=== PATIENT | female | born 1945 | race Caucasian/White ===

== ENCOUNTER 2023-02-20 12:45 | Outpatient (OUT) | payer MEDICARE, OTHER, SELFPAY ==
--- NOTE | 2023-02-20 13:34 | US_ITS ---
The [address] [address] Patient Name: SMITHA CHAN MRN: [id number] date: 1945 Sex: F Assigned Patient Location: US Current Patient Location: US Accession/Order Number: [id number] Exam Date: 02/20/2023 13:35 Report Date: 02/20/2023 16:03 At the request of: NITHYA BROWN Procedure: US venous doppler LE RT EXAM: US venous doppler LE RT HISTORY: Rule out DVT COMPARISON: None. TECHNIQUE: Sonographic evaluation the right lower extremity performed using Doppler interrogation FINDINGS: No findings of right lower extremity DVT. Normal augmentation and waveforms US/US venous doppler LE RT IMPRESSION: No findings of right lower extremity DVT Electronically authenticated by: EVETTE VINCENT Date: 02/20/2023 16:03
== END 2023-02-20 12:46 | disposition home or self-care (01) ==
LOC: US 12:52
PROVIDERS: PCP Family Medicine; Visit Provider Family Medicine
DX: R60.0 Localized edema (principal)
CPT/HCPCS: 93971

== ENCOUNTER 2023-03-31 21:23 | Emergency (ER) | payer MEDICARE, OTHER, SELFPAY ==
[2023-03-31 21:27] VITALS: BP 152/112; PULSE 86; RESP 20; TEMP 36.8; O2SAT 97; BMI 26.6
--- NOTE | 2023-03-31 21:35 | CT_ITS ---
The [address] [address] Patient Name: SMITHA CHAN MRN: [id number] date: 1945 Sex: F Assigned Patient Location: ER Current Patient Location: ED.MAIN Accession/Order Number: [id number] Exam Date: 03/31/2023 21:47 Report Date: 03/31/2023 22:09 At the request of: JACK BURTON Procedure: CT stroke head/brain wo con INDICATION: 78 years old; Female. Right-sided weakness. TECHNIQUE: CT Head (ax/cor/sag reformats). Ionizing radiation dose reduced via iterative reconstruction/FBP blend and body size kV/mA adjustment. Comparison: None FINDINGS: POSTOPERATIVE CHANGES: None. BRAIN PARENCHYMA: There is a focal lobulated hemorrhage present in the left thalamus extending into the posterior limb of left internal capsule and superiorly into the left arredondo radiata. This measures 16.92 x 13.19 x 16.13 mm in diameter as measured on images 15/series 3 and 31/series 7. Ventricular extension is appreciated with hemorrhage in the body of the left lateral ventricle. Localized mass effect is seen. No midline shift or herniation is present. No additional hemorrhage is seen. Patchy low-density is seen in the white matter without mass effect consistent with small vessel ischemic change. VENTRICLES/EXTRA-AXIAL SPACES: Enlarged consistent with atrophy. SINUSES/MASTOIDS: Mucoperiosteal thickening and secretions in the visualized portion of the right maxillary sinus. The maxillary sinuses are not completely visible in this routine CT the head. Hypoplastic frontal sinuses. Mastoids and middle ears are clear. MSK: No displaced or depressed calvarial fracture. OTHER: No hyperdense intraluminal thrombus. Vascular calcifications. CT/CT stroke head/brain wo con IMPRESSION: 1. Left-sided hemorrhage as described above with intraventricular extension into the body of the left lateral ventricle. Localized mass effect is seen. No midline shift or herniation. 2. Small vessel ischemic changes. 3. Atrophy. 4. Vascular calcification. 5. Sinus thickening. A telephone call regarding the findings in examination was made to and acknowledged by Dr. Burton in the emergency department at 10:08 PM on 03/31/2023. Electronically authenticated by: CARO COYNE Date: 03/31/2023 22:09
--- NOTE | 2023-03-31 21:35 | ECG_ITS ---
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
--- NOTE | 2023-03-31 21:35 | XR_ITS ---
The [address] [address] Patient Name: SMITHA CHAN MRN: [id number] date: 1945 Sex: F Assigned Patient Location: ER Current Patient Location: ED.MAIN Accession/Order Number: [id number] Exam Date: 03/31/2023 21:47 Report Date: 03/31/2023 22:42 At the request of: JACK FAJARDO Procedure: XR chest 1V EXAM: XR chest 1V HISTORY: CVA COMPARISON: CT chest 08/03/2021 TECHNIQUE: Single frontal view chest x-ray FINDINGS: Aneurysmal dilation of the thoracic aorta. Descending thoracic aortic stent is seen. Mild rightward tracheal deviation secondary to thoracic aorta, similar to prior exam. Enlarged cardiac silhouette. No lung consolidation, large pleural effusion, pneumothorax, or acute bony abnormality. XR/XR chest 1V IMPRESSION: Aneurysmal dilation of the thoracic aorta. This finding is seen on CT 08/03/2021. Cardiomegaly. No radiographic lung consolidation or large pleural effusion. Electronically authenticated by: DANO ESTRADA Date: 03/31/2023 22:42
--- NOTE | 2023-03-31 21:37 | ED_ITS ---
HPI - Weakness General Chief complaint: Dizziness Stated complaint: Lower Extremity Weakness Time Seen by Provider: 03/31/23 21:35 Source: patient Source comment: EMS Mode of arrival: ambulance Limitations: no limitations History of Present Illness HPI Narrative: patient states she was walking in her home and her right leg, which is her better leg, did not want to cooperate to hold her up and she lowered herself to the floor. No injury. Started around 8PM. She also felt like her right arm was not working normally. Her helped her up but she could not move the right leg. she is now brought her by [facility]. She can move the right leg now but doesn't feel it is back to normal. no headache or chest pain. No visual complaint or dizziness Related Data Home Medications Medication Instructions Recorded Confirmed Stool softner BID 03/31/23 amlodipine 5 mg tablet 5 mg PO DAILY 03/31/23 03/31/23 aspirin 81 mg capsule 81 mg PO DAILY 03/31/23 03/31/23 cetirizine 10 mg tablet (Zyrtec) 10 mg PO DAILY PRN allergy symptoms 03/31/23 03/31/23 hydrochlorothiazide 25 mg tablet 25 mg PO DAILY 03/31/23 03/31/23 niacin 500 mg tablet,extended 500 mg PO DAILY 03/31/23 03/31/23 release (Endur-Acin) pantoprazole 40 mg tablet,delayed 40 mg PO DAILY 03/31/23 03/31/23 release potassium chloride 10 mEq 20 meq PO DAILY 03/31/23 03/31/23 tablet,extended release Allergies Allergy/AdvReac Type Severity Reaction Status Date / Time acetaminophen [From Percocet] Allergy Unknown Verified 03/31/23 22:00 oxycodone [From Percocet] Allergy Unknown Verified 03/31/23 22:00 bacitracin Allergy Blister Verified 03/31/23 22:00 [From Neosporin ([id number])] neomycin Allergy Blister Verified 03/31/23 22:00 [From Neosporin ([id number])] polymyxin B Allergy Blister Verified 03/31/23 22:00 [From Neosporin ([id number])] ciprofloxacin [From Cipro] AdvReac Headache Verified 03/31/23 22:00 Review of Systems ROS Status of ROS 10 or more systems reviewed and unremark able except as noted in history and below [facility] Social History Smoking status: Current every day smoker Exam Constitutional Vital Signs, click to edit/add: Last Vital Signs Temp 98.2 F 03/31/23 21:27 Pulse 96 H 04/01/23 02:05 Resp 20 04/01/23 02:05 BP 140/100 H 04/01/23 02:05 Pulse Ox 95 04/01/23 02:05 O2 Del Method Room Air 04/01/23 02:05 Common normals: no apparent distress, average body habitus, oriented x3, no limitations, healthy appearing, alert and well nourished Eye Common normals: PERRL, EOMs intact bilaterally and conjunctivae normal Respiratory Common normals: normal respiratory effort, no retractions, no use of accessory muscles and clear to auscultation bilaterally Cardio Common normals: regular rate, regular rhythm, S1 normal heart sound and S2 normal heart sound GI Common normals: Normal to inspection, nondistended, normoactive bowel sounds present, soft to palpation and non-tender Extremity Common normals: normal to inspection and full ROM Neuro Common normals: oriented x3 and CN's II-XII intact bilaterally Other: able to raise right leg but it starts to drift back down to the stretcher Psych Appearance: grossly normal Course Vital Signs Vital signs: Vital Signs Temperature 98.2 F 03/31/23 21:27 Pulse Rate 86 03/31/23 21:27 Respiratory Rate 20 03/31/23 21:27 Blood Pressure 152/112 H 03/31/23 21:27 Pulse Oximetry 97 03/31/23 21:27 Oxygen Delivery Method Room Air 03/31/23 21:27 Temperature 98.2 F 03/31/23 21:27 Pulse Rate 96 H 04/01/23 02:05 Respiratory Rate 20 04/01/23 02:05 Blood Pressure 140/100 H 04/01/23 02:05 Pulse Oximetry 95 04/01/23 02:05 Oxygen Delivery Method Room Air 04/01/23 02:05 MDM - Weakness MDM Narrative Medical decision making narrative: patient presents with acute right sided weakness that started about 1.45 hours ago. Has improved and now has NIH score of 1 due to drift of RLE. CT brain ordered. CT with acute cerebral bleed. BP 152/112. Stroke neurologist giselle . Discussed with Dr De Anda at [facility] and patient is accepted to the ICU. He also recommends decreasing her systolic BP to around 140s. Patient and her informed of the above. She is re examined and her NIH score remains at 1 Lab Data Labs: Lab Results 03/31/23 Range/Units 22:09 WBC 7.6 (4.0-11.0) 10^3/uL RBC 4.10 L (4.20-5.40) 10^6/uL Hgb 11.8 L (12.0-16.0) g/dL Hct 35.9 L (36.0-48.0) % MCV 87.6 (81.0-99.0) fL MCH 28.8 (26.7-34.0) pg MCHC 32.9 (29.9-35.2) g/dL RDW 15.1 H (11.0-15.0) % Plt Count 84 L (150-450) 10^3/uL MPV 10.6 (9.5-13.5) fL Neut % (Auto) 80.2 H (43.0-75.0) % Lymph % (Auto) 11.2 L (20.5-60.0) % Chester % (Auto) 6.5 (1.7-12.0) % Eos % (Auto) 1.4 (0.9-7.0) % Baso % (Auto) 0.3 (0.2-2.0) % Neut # (Auto) 6.1 (1.4-6.5) 10^3/uL Lymph # (Auto) 0.9 L (1.2-3.8) 10^3/uL Chester # (Auto) 0.5 (0.3-0.8) 10^3/uL Eos # (Auto) 0.1 (0.0-0.7) 10^3/uL Baso # (Auto) 0.0 (0.0-0.1) 10^3/uL Abs Immat Gran (auto) 0.03 (0.00-0.03) 10^3/uL Imm/Tot Granulo (auto) 0.4 (0.0-0.5) % Sodium 138 (136-145) mmol/L Potassium 3.7 (3.5-5.1) mmol/L Chloride 101 (98-107) mmol/L Carbon Dioxide 29.8 (21.0-32.0) mmol/L Anion Gap 10.9 BUN 17.0 (7.0-18.0) mg/dL Creatinine 0.86 (0.55-1.02) mg/dL Est GFR ( Amer) >60 (>=60) Est GFR (Non-Af Amer) >60 (>=60) BUN/Creatinine Ratio 19.8 Glucose 96 (74-106) mg/dL Calcium 9.6 (8.5-10.1) mg/dL Troponin I High Sens 8.1 (4.0-51.3) pg/mL Critical Care Time Critical Care Time Total Critical Care Time: 30 Discharge Plan Discharge Chief Complaint: Dizziness Clinical Impression: Acute cerebral hemorrhage, Thalamic hemorrhage with stroke Patient Disposition: Xfer Acute [facility] Discharge Location: [facility] Discharge Date/Time: 04/01/23 02:50
--- OUTSIDE RECORDS SUMMARY | 2023-03-31 21:49 | XMS_ITS | CCD ---
Author Name Unknown Address [address] [place] [address] Organization [facility] Care Team Providers Care Belly Roller Name Role Phone GUSTAVO BADILLO Attending Unavailable GUSTAVO BADILLO Admitting Unavailable FE BROWN Referring Unavailable FE BROWN Primary Care Unavailable MD Fe Brown Primary Care Provider [phone] MD Beth Moore Attending Provider [phone] STEPHANIE, DR FE Merida Primary Care Unavailable FEROZ, GASTON Admitting Unavailable FEROZ, GASTON Attending Unavailable BLAINE, DR ANTOLIN Musa Consulting Unavailable MARIFER, CARO Consulting Unavailable GASTON REDMAN Consulting Unavailable BETH MOORE Admitting Unavailable BETH MOORE Attending Unavailable STEPHANIE, DR FE Merida Primary Care Unavailable BROWN, DR FE Merida Admitting Unavailable BROWN, DR FE Merida Attending Unavailable BROWN, DR FE Merida Primary Care Unavailable ZIEBMARK, DR ANTOLIN Musa Consulting Unavailable BROWN, DR FE Merida Consulting Unavailable MISC, DR MCKINLEY Admitting Unavailable MISC, DR MCKINLEY Attending Unavailable STEPHANIE, DR FE Merida Primary Care Unavailable MISC, DR MCKINLEY Consulting Unavailable ZIEBMARK, DR ANTOLIN Musa Consulting Unavailable BROWN, DR FE Merida Admitting Unavailable BROWN, DR FE Merida Attending Unavailable BROWN, DR FE Merida Primary Care Unavailable WEST, DR ARIANNE Sanz Consulting Unavailable STEPHANIE, DR FE Merida Consulting Unavailable STEPHANIE, DR FE Merida Admitting Unavailable BROWN, DR FE Merida Attending Unavailable BROWN, DR FE Merida Primary Care Unavailable WEST, DR ARIANNE Sanz Consulting Unavailable STEPHANIE, DR FE Merida Consulting Unavailable BETH MOORE Admitting Unavailable BETH MOORE Attending Unavailable STEPHANIE, DR FE Merida Primary Care Unavailable BETH MOORE Consulting Unavailable Fe Brown Unavailable FE BROWN Primary Care Physician [phone] Nayely Lizama Unavailable Unavailable Calvey, Beth Unavailable MD Fe Brown Primary Care Provider [phone] MD Beth Moore Attending Provider [phone] MD Gustavo Badillo Admitting Unavailable MD Gustavo Badillo Attending Unavailable NONE, XXXX Referring Unavailable MD Gustavo Badillo Attending Unavailable NONE, XXXX Referring Unavailable MD Gustavo Badillo Admitting Unavailable MD Gustavo Badillo Admitting Unavailable MD Gustavo Badillo Attending Unavailable MD Gustavo Badillo Referring Unavailable Calvey, Beth R Admitting Unavailable Calvashley, Beth R Attending Unavailable Fe Brown Primary Care Unavailable Calvey, Beth R Admitting Unavailable Calvashley, Beth R Attending Unavailable Fe Brown Primary Care Unavailable Teresa, Beth R Admitting Unavailable Beth Moore Attending Unavailable Fe Brown Primary Care Unavailable Beth Moore Attending Unavailable Beth Moore R Admitting Unavailable Fe Brown Primary Care Unavailable Beth Moore Attending Unavailable Beth Moore R Admitting Unavailable Fe Brown Primary Care Unavailable Allergies Allergy Classification Reported Allergen(s) Allergy Type Date of Onset Reaction(s) Facility (2 sources) Acetaminophen / oxyCODONE Drug Allergy 08-19-19 15 [facility] (2 sources) Alendronate Drug Allergy 08-19-19 15 [facility] (2 sources) Bacitracin / Neomycin / Polymyxin B Drug Allergy 04-10-19 15 [facility] (4 sources) Bee/Wasp/Ant venom; Translations: [bee stings] Propensity to adverse reactions (disorder) 07-02-19 19 Edema [facility] (2 sources) Ciprofloxacin Drug Allergy 08-19-19 15 [facility] (2 sources) nickel; Translations: [nickel] Drug Allergy 08-19-19 15 [facility] (1 source) oxyCODONE Drug Allergy 07-04-19 22 [facility] (12 sources) Bacitracin; Translations: [Bacitracin] Drug Allergy 11-29-19 13 Rash, Unknown [facility] (20 sources) Ciprofloxacin; Translations: [ciprofloxacin] Drug Allergy 08-18-19 15 Headache, Unknown [facility] (8 sources) Neomycin; Translations: [Neomycin] Drug Allergy 04-30-19 Rash, Unknown [facility] (5 sources) polymyxin B; Translations: [polymyxin B] Allergy to substance 04-30-19 Rash [facility] (5 sources) venom-wasp; Translations: [venom-wasp] Allergy to substance 04-30-19 Anaphylaxis [facility] (1 source) bee venom Drug allergy (disorder) 08-19-19 15 [facility] (6 sources) Acetaminophen / oxyCODONE; Translations: [acetaminophen-ox ycodone] Drug Allergy 08-18-19 15 Unknown [facility] (6 sources) Alendronate; Translations: [alendronate] Drug Allergy 11-29-19 13 Unknown, Comment:Freete xt Needs Updated. [facility] (3 sources) bacitracin / neomycin / polymyxin b; Translations: [bacitracin/neomy joaquin/polymyxin B topical] Drug Allergy Blisters [facility] (6 sources) oxyCODONE; Translations: [oxycodone] Drug Allergy 11-01-19 19 Unknown, Comment:Freete xt Needs Updated. [facility] (3 sources) Substance with penicillin structure and antibacterial mechanism of action (substance) Drug allergy 11-29-19 13 Unknown [facility] Other (3 sources) Bee Sting Drug allergy 11-29-19 13 Unknown [facility] Other (3 sources) Neosporin + Pain Relief Max St *DERMATOLOGICALS* Propensity to adverse reactions 11-29-19 13 Unknown [facility] Other (3 sources) Allergies Reconciled Propensity to adverse reactions Unknown [facility] Other (3 sources) patient allergy list reviewed by nurse or physicia Propensity to adverse reactions 11-29-19 Comment:Done [facility] Other Medications Current Medications Medication Drug Class(es) Dates Sig (Normalized) Sig (Original) acetaminophen 325 mg / HYDROcodone bitartrate 5 mg oral tablet (8 sources) Opioid Agonist Start: 04-30-2022 take 1 tablet by mouth every four to six hours Hydrocodone-Aceta minophen Active 1 - 2 TAB PO EVERY 4-6 HOURS 50 7 April 30, 2022 Start: 04-30-2022 take 1 tablet by melly th every six hours Hydrocodone-Acetaminophen Active 1 TAB P O Q6H April 30, 2022 1:00am amLODIPine 5 mg oral tablet (20 sources) Dihydropyridine Calcium Channel Yoselin Start: 04-30-2022 take 5 mg by mouth once daily Amlodipine Active 5 MG PO Daily April 30, 2022 1:00am amLODIPine Besyl ate Active amoxicillin 500 mg oral capsule (1 source) Penicillin-class Antibacterial take 2 capsules by mouth every twelve hours Amoxicillin 500 MG 2 capsules Orally Twice a day for 1 days Pt states she is not allergic to PCN. Active aspirin 81 mg delayed release oral tablet (12 sources) Platelet Aggregation Inhibitor, Nonsteroidal Anti-inflammatory Drug Start: 06-04-19 take 1 tablet by mouth once daily aspirin 81 mg Oral EC Tab 81 mg = 1 tab(s), Oral, Daily, # 30 tab(s), Refills(s) 0 Start Date: 06/04/22 Status: Ordered Start: 04-30-2022 take 81 mg by mouth once daily Aspirin Active 81 MG PO Daily April 30, 2022 1:00am take 1 tablet by mouth once bertha y Aspir-Low 81 MG 1 tablet Orally Once a day Active Zyrtec (16 sources) Histamine-1 Receptor Antagonist Start: 06-04-2022 Zyrtec Refills(s) 0 Start Date: 06/04/22 Status: Ordered take 1 tablet by melly th once daily as needed ZyrTEC Allergy 10 MG 1 tablet as needed Orally Once a day for 30 day(s) Active Colace (2 sources) Start: 06-04-2022 Colace Refills(s) 0 Start Date: 06/04/22 Status: Ordered doxycycline hyclate 100 mg oral tablet (4 sources) Tetracycline-clas s Drug Start: 04-30-2022 take 100 mg by mouth twice daily Doxycycline Hyclate Active 100 MG PO Twice daily 10 5 April 30, 2022 1:00am [id number] 0.3 ml EPINEPHrine 1 mg/ml auto-injector (6 sources) alpha-Adrenergic Agonist, beta-Adrenergic Agonist, Catecholamine Start: 09-07-2022 EpiPen 2-Jarrod 0.3 MG/0.3ML as directed Injection prn for 1 days Sep, Active hydroCHLOROthiazide 25 mg oral tablet (20 sources) Thiazide Diuretic Start: 02-20-2016 take 25 mg by mouth once daily Hydrochlorothiazide Active 25 MG PO Daily April 30, 2022 1:00am hydroCHLOROthiaz kenji Active metoprolol tartrate 25 mg oral tablet (20 sources) beta-Adrenergic Yoselin Start: 04-30-2022 take 25 mg by mouth twice daily Metoprolol Tartrate Active 25 MG PO Twice daily April 30, 2022 1:00am Start: 09-15-2019 Lopressor Refi lls(s) 0 Start Date: 09/15/19 Status: Ordered Metoprolol Succi sebastian Active Niacin (2 sources) Nicotinic Acid Start: 06-04-2022 niacin 500 mg ER Tab Refills(s) 0 Start Date: 06/04/22 Status: Ordered pantoprazole 40 mg delayed release oral tablet (20 sources) Proton Pump Inhibitor Start: 04-30-2022 take 40 mg by mouth once daily Pantoprazole Active 40 MG PO Daily April 30, 2022 1:00am Pantoprazole Sod ium Active potassium chloride 10 meq extended release oral tablet (12 sources) Start: 04-30-2022 take 20 mEq by mouth twice daily Potassium Chloride Active 20 MEQ PO Twice daily April 30, 2022 1:00am Start: 09-15-2019 take 2 capsules by m outh once daily potassium chloride 10 mEq Cap-ER 20 mEq = 2 cap(s), Oral, Daily, Refills(s) 0 Start Date: 09/15/19 Status: Ordered Potassium Chlori de Active raNITIdine 75 mg oral tablet (2 sources) Histamine-2 Receptor Antagonist Start: 02-20-2016 take 75 mg by mouth once daily as needed ranitidine 75 mg, Oral, Daily, PRN Indigestion, takes when taking AQleve, Refills(s) 0 Start Date: 02/20/16 Status: Ordered Stool Softener (14 sources) Stool Softener Active Completed/Discontinued Medications Medication Drug Class(es) Dates Sig (Normalized) Sig (Original) methylPREDNISolone 4 mg oral tablet (9 sources) Corticosteroid Start: 06-20-2022 Medrol 4 MG as directed Orally Jun, Not-Taking predniSONE 5 mg oral tablet (8 sources) Start: 07-20-2022 predniSONE 5 MG TAKE 4 PILLS BY MOUTH X 2 DAYS, TAKE 3 PILLS BY MOUTH X 2 DAYS, TAKE 2 PILLS BY MOUTH X 2 DAYS, TAKE 1 PILL BY MOUTH X 1 DAY Orally Daily for 7 days Jul, Not-Taking triamcinolone acetonide 40 mg/ml injectable suspension (20 sources) Corticosteroid Start: 08-31-2022 Kenalog-40 August, 20 mg Start: 12-22-2017 KENALOG - 10 m g Dec, 40 mg Problems Active Problems Problem Classification Problem Date Documented Da te Episodic/Chronic Aortic; peripheral; and visceral artery aneurysms (12 sources) Thoracic aortic aneurysm, without rupture; Translations: [Aneurysm of artery of lower extremity] Onset: 9 Chronic Biliary tract disease (3 sources) Gallbladder calculus with acute cholecystitis and no obstruction; Translations: [Calculus of gallbladder with acute cholecystitis without obstruction] Episodic Chronic obstructive pulmonary disease and bronchiectasis (6 sources) Acute exacerbation of chronic obstructive airways disease; Translations: [Chronic obstructive pulmonary disease with (acute) exacerbation] Onset: 8 Chronic Disorders of lipid metabolism (6 sources) Mixed hyperlipidemia; Translations: [Mixed hyperlipidemia] Onset: 0 Chronic E Codes: Fall (1 source) Unspecified fall, initial encounter; Translations: [UNSPECIFIED FALL INITIAL ENCOUNTER] Onset: 3 Episodic Esophageal disorders (3 sources) Gastroesophageal reflux disease without esophagitis; Translations: [Gastro-esophageal reflux disease without esophagitis] Chronic Essential hypertension (7 sources) Essential hypertension; Translations: [Essential (primary) hypertension] Chronic Fracture of upper limb (18 sources) Fracture at wrist and/or hand level; Translations: [Fracture of unspecified carpal bone, right wrist, initial encounter for closed fracture] Onset: 3 04-30-2022 Episodic Gastrointestinal hemorrhage (1 source) Hemorrhage of anus and rectum Episodic Headache; including migraine (3 sources) Chronic migraine without aura, non-refractory; Translations: [Migraine without aura, not intractable, without status migrainosus] Chronic Inflammatory diseases of female pelvic organs (3 sources) Acute vaginitis; Translations: [Acute vaginitis] Episodic Menopausal disorders (3 sources) Menopause present; Translations: [Menopausal and female climacteric states] Chronic Osteoarthritis (3 sources) Osteoarthritis; Translations: [Unspecified osteoarthritis, unspecified site] Chronic Other aftercare (1 source) [facility] (current) use of aspirin; Translations: [[facility] CURRENT USE OF ASPIRIN] Onset: 3 Episodic Other aftercare (1 source) Other jail (current) drug therapy; Translations: [OTH SHAKE SPLITTER CURRENT DRUG THERAPY] Onset: 3 Episodic Other bone disease and musculoskeletal deformities (3 sources) Bone density finding; Translations: [Other specified disorders of bone density and structure, unspecified site] Episodic Other circulatory disease (3 sources) Elevated blood-pressure reading without diagnosis of hypertension; Translations: [Elevated blood-pressure reading, without diagnosis of hypertension] Episodic Other nervous system disorders (7 sources) Carpal tunnel syndrome of right wrist; Translations: [Carpal tunnel syndrome, right upper limb] Chronic Other nervous system disorders (3 sources) Carpal tunnel syndrome, right upper limb Chronic Other nervous system disorders (4 sources) Pain in limb; Translations: [Other acute postprocedural pain] 04-30-2022 Episodic Other non-epithelial cancer of skin (14 sources) Basal cell carcinoma of skin; Translations: [Basal cell carcinoma of skin] Episodic Other non-traumatic joint disorders (3 sources) Pain in right wrist; Translations: [PAIN IN RIGHT WRIST] Onset: 3 Episodic Other screening for suspected conditions (not mental disorders or infectious disease) (4 sources) Encounter for screening mammogram for malignant neoplasm of breast; Translations: [ENC SCR MAMMO MALIG NEOPLASM BREAST] Onset: 3 Episodic Other skin disorders (7 sources) Localized swelling, mass and lump, left lower limb; Translations: [LOC SWELL MASS LUMP LT LOWER LIMB] Onset: 2 Episodic Other skin disorders (3 sources) Changes in skin texture; Translations: [Changes in skin texture] Episodic Other upper respiratory disease (3 sources) Allergic rhinitis; Translations: [Allergic rhinitis, unspecified] Onset: 6 Chronic Other upper respiratory infections (3 sources) Chronic sinusitis; Translations: [Chronic sinusitis, unspecified] Chronic Poisoning by nonmedicinal substances (4 sources) Toxic effect of venom of wasps, accidental (unintentional), initial encounter; Translations: [Toxic effect of venom] Episodic Residual codes; unclassified (8 sources) Other specified postprocedural states; Translations: [OTH SPECIFIED POSTPROCEDURAL STATES] Onset: 3 Episodic Spondylosis; intervertebral disc disorders; other back problems (1 source) Spondylosis without myelopathy or radiculopathy, lumbar region; Translations: [SPONDYLS W/O MYELO-/RADICULOP LUMB] Onset: 3 Chronic Substance-related disorders (3 sources) Nicotine dependence; Translations: [Nicotine dependence, cigarettes, with other nicotine-induced disorders] Onset: 7 Chronic Unclassified (3 sources) LOW BACK PAIN, UNSPECIFIED; Translations: [LOW BACK PAIN, UNSPECIFIED] Onset: 3 Unclassified (1 source) Other extraarticular fracture of lower end of right radius, subsequent encounter for closed fracture with routine healing; Translations: [Other extraarticular fracture of lower end of right radius, subsequent encounter for closed fracture with routine healing] Onset: 3 Unclassified (1 source) Age-related osteoporosis with current pathological fracture, right forearm, initial encounter for fracture; Translations: [Age-related osteoporosis with current pathological fracture, right forearm, initial encounter for fracture] Onset: 3 Unclassified (1 source) Abdominal aortic aneurysm, without rupture, unspecified; Translations: [Abdominal aortic aneurysm, without rupture, unspecified] Past or Other Problems Problem Classification Problem Date Documented Date Episodic/Chronic Bacterial infection; unspecified site (3 sources) Bacterial infectious disease; Translations: [Bacterial infection, unspecified, in conditions classified elsewhere and of unspecified site] Onset: 05-30-2016 Episodic Immunizations and screening for infectious disease (3 sources) Vaccination given; Translations: [Encounter for immunization] Onset: 02-09-2016 Episodic Neoplasms of unspecified nature or uncertain behavior (3 sources) Neoplasm of uncertain behavior of soft tissues; Translations: [Neoplasms of unspecified nature of bone, soft tissue, and skin] Onset: 11-28-2012 Episodic Other connective tissue disease (1 source) Pain in unspecified limb; Translations: [Pain in unspecified limb] Onset: 04-30-2022 Episodic Other nervous system disorders (1 source) Other acute postprocedural pain; Translations: [Other acute postprocedural pain] Onset: 04-30-2022 Episodic Other nutritional; endocrine; and metabolic disorders (3 sources) Overweight; Translations: [Overweight] Onset: 11-05-2017 Episodic Other nutritional; endocrine; and metabolic disorders (3 sources) Body mass index 25-29 - overweight; Translations: [Body mass index 28.0-28.9, adult] Onset: 03-05-2017 Episodic Other skin disorders (3 sources) Inflamed seborrheic keratosis; Translations: [Inflamed seborrheic keratosis] Onset: 05-17-2016 Episodic Other skin disorders (3 sources) Actinic keratosis; Translations: [Actinic keratosis] Onset: 02-09-2016 Episodic Other upper respiratory infections (9 sources) Acute maxillary sinusitis; Translations: [Acute recurrent maxillary sinusitis] Onset: 08-02-2014 Episodic Residual codes; unclassified (3 sources) Tobacco user; Translations: [Tobacco use] Onset: 05-30-2016 Episodic Screening and history of mental health and substance abuse codes (3 sources) Nicotine dependence; Translations: [Personal history of nicotine dependence] Onset: 10-31-2018 Episodic Thyroid disorders (3 sources) Disorder of thyroid gland; Translations: [Unspecified disorder of thyroid] Onset: 10-31-2018 Episodic Unclassified (1 source) LOW BACK PAIN, UNSPECIFIED; Translations: [LOW BACK PAIN, UNSPECIFIED] Onset: 04-16-2022 Unclassified (1 source) Lumbar pain M54.50 Results Test Name Value Interpretation Reference Range Facility Outside Progress Noteon Outside Progress Note [id number] 450#[id number]:127 [facility] Progress Note-Nurseon 2022 Progress Note-Nurse [id number] 99#[id number]:127 [facility] XR wrist RT min 3V*on 2022 XR wrist RT min 3V* [place] [id number] XRay Report Signed Patient: Ellen Sánchez MR#: [id number] 1 : 1945 Acct:[id number] Age/Sex: 77 / F ADM Date: 08/31/22 Loc: [facility]X Room: Type: [facility] Attending Dr: Beth Moore MD Copies to: Beth Moore MD Ordering Provider: Beth Moore MD Date of Service: 08/31/22 XR/XR wrist RT min 3V*: Other closed extra-articular fracture of distal end of right XR wrist RT min 3V* 08/31/2022 10:42 AM SIGNS AND SYMPTOMS: Status post fixation of distal radius fracture, follow-up PROTOCOL: Frontal, lateral, and oblique radiographs of the right wrist COMPARISON: 07/20/2022 FINDINGS: There is volar plate and screw fixation across a distal radius fracture. Healing remains incomplete. No change in alignment or hardware complication. There is diffuse osteopenia. There is a remote ulnar styloid fracture. The radiocarpal joint is unchanged. Degenerative changes are present at the base of the thumb. XR/XR wrist RT min 3V* IMPRESSION: Distal radius fracture status post volar plate and screw fixation without change in alignment. Healing remains incomplete. Impression dictated by: Patrick Linares M.D.08/31/2022 3:33 PM Dictation Location: [place] [address] Transcribed By: [facility] 08/31/22 1533 Dictated By: Patrick Linares II, MD 08/31/22 1532 Signed By: 08/31/22 1533 Normal [facility] XR wrist RT min 3V* [facility] Other XR wrist RT min 3V* [facility] Other XR wrist RT min 3V* [facility] Other XR wrist RT min 3V* [place] [address] [facility] Other XR wrist RT min 3V* XRay Report [facility] Other XR wrist RT min 3V* Signed [employer] [facility] Other XR wrist RT min 3V* Patient: Ellen Sánchez MR#: [id number] [employer] [facility] Other XR wrist RT min 3V* 1 [employer] [facility] Other XR wrist RT min 3V* : 1945 Acct:[id number] [employer] Other XR wrist RT min 3V* Age/Sex: 77 / F ADM Date: 08/31/22 [employer] [facility] Other XR wrist RT min 3V* [place] [facility] [place] Type: [facility] [employer] Other XR wrist RT min 3V* Attending Dr: Beth Moore MD [employer] [facility] Other XR wrist RT min 3V* Copies to: Beth Moore MD [employer] [facility] Other XR wrist RT min 3V* Ordering Provider: Beth Moore MD [employer] [facility] Other XR wrist RT min 3V* Date of Service: 08/31/22 [employer] [facility] Other XR wrist RT min 3V* XR/XR wrist RT min 3V*: Other closed extra-articular fracture of distal [employer] Other XR wrist RT min 3V* end of right [employer] Other XR wrist RT min 3V* XR wrist RT min 3V* 08/31/2022 10:42 AM [employer] [facility] Other XR wrist RT min 3V* SIGNS AND SYMPTOMS: Status post fixation of distal radius fracture, follow-up [employer] Other XR wrist RT min 3V* PROTOCOL: Frontal, lateral, and oblique radiographs of the right wrist [employer] [facility] Other XR wrist RT min 3V* COMPARISON: 07/20/2022 [employer] [facility] Other XR wrist RT min 3V* FINDINGS: [employer] Other XR wrist RT min 3V* There is volar plate and screw fixation across a distal radius fracture. Healing remains incomplete. [employer] [facility] Other XR wrist RT min 3V* No change in alignment or hardware complication. There is diffuse osteopenia. There is a remote [employer] Other XR wrist RT min 3V* ulnar styloid fracture. The radiocarpal joint is unchanged. Degenerative changes are present at the [employer] Other XR wrist RT min 3V* base of the thumb. [employer] Other XR wrist RT min 3V* XR/XR wrist RT min 3V* [employer] Other XR wrist RT min 3V* IMPRESSION: [facility] [employer] Other XR wrist RT min 3V* Distal radius fracture status post volar plate and screw fixation without change in alignment. [employer] Other XR wrist RT min 3V* Healing remains incomplete. [employer] Other XR wrist RT min 3V* Impression dictated by: Patrick Linares M.D.08/31/2022 3:33 PM [employer] Other XR wrist RT min 3V* Dictation Location: [place] [address] [employer] [employer] [facility] Other XR wrist RT min 3V* Transcribed By: TATIANA 08/31/22 1533 [employer] [facility] Other XR wrist RT min 3V* Dictated By: Patrick Linares II, MD 08/31/22 1532 [employer] [facility] Other XR wrist RT min 3V* Signed By: [employer] Other XR wrist RT min 3V* 08/31/22 1533 No [facility] Other Consent for Treatmenton 08-07 Consent for Treatment [id number] OR#[id number]:127 Normal [facility] Heart and Vascular Office/Cl inic Noteon 08-30-2022 Heart and Vascular Office/Clinic Note Chief Complaint F/U Testing-CT History of Present Illness This is a 77-year-old lady status post TEVAR and EVAR for aneurysmal diseases. She also has arch aneurysm of 5 cm. She did have recent scans. She fell and broke her wrist for which she had surgeries. She is here for surveillance. She has no chest pain or abdominal pain. Her scans looks good with no endoleak. The aortic arch aneurysm is stable. Review of Systems PHQ Score Initial Depression Screen Score: 0 Constitutional: no fever, no chills, no sweats, no weakness Skin: no Jaundice, no rash, no lesions, nopetechiae ENMT: no ear pain, no sore throat, no congestion, no hoarseness Respiratory: no shortness of breath, no cough, no orthopnea, no wheezing Cardiovascular: no chest pain, no palpitations, no edema Gastrointestinal: no nausea, no vomiting, no diarrhea, no GI bleeding Genitourinary: no dysuria, no hematuria, no discharge, no pain Musculoskeletal: no back pain, no trauma Neurologic: no headache, no dizziness, no numbness, no weakness Psychiatric: no sleeping problems, no irritability, no mood swings/depression. Heme/Lymph: no bleeding tendency, no bruising tendency, no petechiae, no swollen nodes Allergy/Immunologic : no seasonal allergies, no food allergies, no recurrent infections, no impaired immunity Additional ROS info: Except as noted in the above Review of Systems and in the History of Present Illness all other systems have been reviewed and are negative or noncontributory. Physical Exam Vitals & Measurements HR: 69(Peripheral) BP: 153/90 SpO2: 98% HT: 64 in HT: 162 cm WT: 74.3 kg WT: 163.46 lb BMI: 28.31 General: alert, no acute distress Skin: warm, dry Head: no trauma, normocephalic Neck: Trachea midline, no adenopathy, no tenderness Eye: normal conjunctiva, sclera clear Cardiovascular: regular rate and rhythm, normal peripheral perfusion Respiratory: Lungs CTA, respirations non labored Chest wall: no deformity. Gastrointestinal: soft, non distended, no tenderness, no guarding. Back: No tenderness, Normal ROM, Normal alignment. Extremities: no edema,no deformity, no trauma Neurological: oriented x 4, LOC appropriate for age, motor strength equal & normal bilaterally, sensation equal & normal bilaterally, speech normal Psychiatric: cooperative, affect appropriate for age, normal judgement, normal psychiatric thoughts. Assessment/Plan 1. Thoracoabdominal aortic aneurysm (TAAA) (I71.60: Thoracoabdominal aortic aneurysm, without rupture, unspecified) CTA of the chest abdomen pelvis in 6 months 2. AAA (abdominal aortic aneurysm) (I71.40: Abdominal aortic aneurysm, without rupture, unspecified) CTA of the chest abdomen pelvis in 6 months Follow-up No qualifying data available Problem List/Past Medical History Ongoing No qualifying data Historical No qualifying data Procedure/Surgical History Cataract Extraction with IOL placement - OD (02/21/2016). Medications amLODIPine 5 mg Tab aspirin 81 mg Oral EC Tab, 81 mg= 1 tab(s), Oral, Daily Colace hydrochlorothiazide , 25 mg, Oral, Daily Lopressor niacin 500 mg ER Tab Pantoprazole [address] Tab potassium chloride 10 mEq Cap-ER, 20 mEq= 2 cap(s), Oral, Daily ranitidine, 75 mg, Oral, Daily, PRN Zyrtec Allergies Bee Stings (Edema) Neosporin (Blisters) acetaminophen-oxyco done (Unknown) alendronate (Unknown) bacitracin (Unknown, Rash) ciprofloxacin (Unknown) neomycin (Unknown, Rash) oxyCODONE (Unknown) Social History Tobacco - Denies Tobacco Use, 06/04/2022 Former smoker, quit more than 30 days ago Tobacco Use:. Never Smokeless Tobacco Use:., 08/30/2022 Family History Acute myocardial infarction: Father. Alzheimer's disease: Mother. Diabetes mellitus type 2: Father. Normal [facility] Comment on above: Result Comment: Elec tronically Signed By: Justino CUNNINGHAM, Gustavo Ruiz\.br\Date and Time Signed: 08/30/22 13:48 EDT XR wrist RT min 3V*on 2022 XR wrist RT min 3V* [facility] [place] [address] [place], [place] [id number] XRay Report Signed Patient: Ellen Sánchez MR#: [id number] 1 : 1945 Acct:[id number] Age/Sex: 77 / F ADM Date: 07/20/22 [place] [facility] [place]: Type: [facility] Attending Dr: Beth Moore MD Copies to: Beth Moore MD Ordering Provider: Beth Moore MD Date of Service: 07/20/22 XR/XR wrist RT min 3V*: Other closed extra-articular fracture of distal end of right RIGHT WRIST - 4 views CLINICAL HISTORY: Follow-up ORIF right distal radius fracture COMPARISON: Right wrist 06/20/2022 FINDINGS: Distal radius fracture internally fixated without hardware complication or change in alignment. No significant change in healing internally prior study. Styloid process-of the ulna is unchanged. Bones are grossly demineralized. Carpus demonstrate degenerative change. XR/XR wrist RT min 3V* IMPRESSION: NO EVIDENCE OF HARDWARE COMPLICATION. NO SIGNIFICANT HEALING SINCE THE PRIOR STUDY. Impression dictated by: Kit Quinonez Jr., D.O.07/20/2022 2:40 PM Dictation Location: [place] [address] Transcribed By: [facility] 07/20/22 1440 Dictated By: Kit Quinonez Jr, DO 07/20/22 1439 Signed By: 07/20/22 1440 [facility] Coding Summary.on 06-21-2022 Coding Summary. [id number] BFw5vEv+PGhlYWQ+PE1 UZWAyT15agKPmsJ0mL5 NMTElOSywgQVBQTElOS eHhsmRxSU1xtDJgLEVs IC8+SF7qBMHkKhlmaMB ij6W3sJH7I94vrn4nTS melET3VIVsHfPynjpwr 2xdmYa1ULvfQuivJaGv NZOfuV11SNU2iW42Rz4 4iUGluPRyt2wsiCk7Vm QbJAMpCSJ7cKmaMWxtp 0McOAFhN33jfJYzq2Q4 IGNvbGxhcHNlOyBlbXB 6iO1jINpvvmbyc7ovjm baNfw9fg42hYWln8D9k QF8S9VazzM2ONPexKZy LogjiBBPgZ8oafsgz8g rgfqqFrIcGDTnFYm8IW z4GDVfsLazQsRcFP10J BE4AMOomiYwA9ThOQAe fJhyPiI1g5P2Nf5DJ4L ZEsyqX7QAUWUWNWptkO Q+UA35ek63L4WuGwymR bm0CSAsDJE6wKL8pU4n IXDpZTvuo6W8tVL4S9V rtyEwsa1fn2rdLNLxOA kjU61mqQMcm3D6GOMuz YW4HQCbhGpuRoBrmA11 Oyc+PVXztUzuu9TuRte kq1boq8zcnJd5CxxjGW LqpcDomMrdHLY3p2YnT b3bTVKtgGG4mOC8dU4c RdIlFfP6VFdjI325RrO hkIMvTiroE01kX9XhiR A+VNFdHfa0QQVhkMonU L2xS8HjUCJrhmgnbQTt pLkpYO9jSJSzthawNUV muT8yNYPuX0k3UaLjYe G7FDktD3EqIONhvkbtU c27hK3iIlYjFhL1EGdi R3CpveV5VFRyuSDbCQv bOEY5G05yf9K3WKXuYK KsCYL8gHI6dT4pmBhyk jogbGVmdDsgdmVydGlj TKkzIKfzG066OWFhlYb nPkNvZGluZyBEYXRlOi AgMDMvMTYvMjAyMzwvd GQ+WDZnYDB5zLriGWHc vUVqKXseOu6cfJroqMg kUW8pULVbdonwNZVooT 9eOMHnwVWiaAkiLF7iK LKbxlrxv192WlGoEBC6 TNKjmRVaX1ChmX8rOpK yIRJaOLYnS6ZteDFgGJ xvV757VChjQjO2UZHxg rApE1FwPNYduYemMeM9 n8M0Im2Gb9GkrejiJ2X vjLYeRxJqMbpzJMv2K0 RkPjwvdHI+BT84XZCdD M91UVu9KBU9qPmzYFlk FGYlC1KbtK2yHrEuPBG kZGRkOyc+PHRhYmxlIH dpZHRoPScxMDAlJyBzd VsnOD6vZm1aGBFsQKCc uDikrHOoHeExe0ivXYB xHUmlLW2fxMvlT6DamA V2GRCio8j0Ns98E31nB 3JvdXA+KNRfkFM1nAK9 tL7sYeCoEpB8PQpqK52 5RcFjiTVwOlkld6uqy7 xmcEs6EqE3OIXcouXvs LkmAPX1v4UmMk89L31a IHdpZHRoPSIxNSUiIHZ hwJrutw8ueT7mHs7+PG TinOO8tPB8wC1wGiGtI qI7PExaT337KlYqmVZz Xybwe6ken9ebnKe7TcV oEXCdwkFkxOclEBW5a5 CnGt84G2LvzAznu2KtX ym4vi79mOTmt7O7pYH0 B0EwDMPvdmsdjNRneKh yMJ7kOUFswvkwYWTfoC 4yMDOyC7u3QsFjGhH9Y CxaG8PiwoK9BXIhpRIv MNQanWBDoN4ywzmze8k qabgaKkJbPOPgMFj8IG l7OKBqdXftIeDeFSV8A bP4JRG9xAQfaM2qeTjn yebxpD9dStn+VPH9eXJ ilXLARB1wOkatrHZ+PH SdXHR8qSjbOHgsQXTez X3tIONmC6c5EgIoNnE8 WBovG7AgcaP3FQVtbLF qQQJbeOFTgS8htqtnp0 vkxekdYhUiKPLhFHu6F Xv7AMSmqTwnHpYsCHM7 PbW1OIV1qKEreU8sdBp qrwivqR6bFvk+QmlydG zlDUF6JWh5Y8QuSnx8N KFuwNnnSZ6rkGGgEIoc Sh2qpPwrgRhzBA2uUNI tyytsp963RyRkl2iyMI ZpmHYfDPxaFDX2F92hd 9P2WQCbCOTsADY4wLD3 zX1ndQpxetqjiWSxkHj gdmVydGljYWwtYWxpZ2 12OTKuqFvqSnYaHQm6X 6LoHpb0PUTnnQpkSQ1c uQEiMHpdBg2otDzytZq tVC3mKAXpjckwm234Of Gsf3vsCOWoxXLcJCkoF KX7P86hw8V9TQTpOZNh FWM4aOF0oJ1rrIbwhag gbGVmdDsgdmVydGljYW nkTWizE013RAAcbXzsJ rWqlMe8L8XjMtp8CWRr xWjpQK9pmZDyKMywDy7 dlRbxpRdoHW7vOGEsnq zix927ZnElv8ugHDYay GHuOWjqZLY6G06fl7C4 TPZsBIIeWZW1cPZ4iS0 hbGlnbjogbGVmdDsgdm NicWtuZIiqTZsfA034D HRvcDsnPlBhdGllbnQg QPunCWa6L9VuJjjpwNN +OO26KZKtUX93iBIxiZ Qqm2pvgLb0FvLjSMYhY XG8yLmzBGiiu8JzOULd Q43wrCArb8S6IOSthUf itFAmDhGbgPW0nQ6iNJ mfknkpy1klfyeaFlzsz 0gcwf18mZ17U12zVRqe ZHRoPSIzMCUiIHZhbGl mpq6pcZ3vKu4+PGNvbC H2bKE6gG8gKWAeWjV8K BbuP600AiPziJZcSowv d9hhf2xclJy8CrM3YXE mrpAloJljYAV2n6KbPq 07H12fFJlqXEXpCKQwG FMgYRGrcTfzgx9kgT6x Ii8+LECcnHQ6hUK1aL6 dLyWkLqD4FUqxE239Zk MthGPzCysqF80kU9Cmc XA+GRZpNgo1IFFjvKop YS5xgOIrFSagXy4kFBR 7MaEvZrIhDCehB6VlJN CtnzelyebihZG2LRIxU VRvnK81Cw6ncJcpCQEx iMDBrC4eolrfc7xjmqq gKzWoXUAhSYl7LHe8CP ItfEfzGqGdHMS8RrN0N NR0vSHhcS8twTtwynpj uY5dM3AfFZCfwdbpPu7 8yM6yYoPwXiC4BAraFz c+JFZNL1WHWRitHY2BB RI6B5OyPkr0RUBzvHog VV6zcCDgTLyiSy0sqQb xvLpfAO0aSFDhjniyNI BdfY3nOVLbsZLopXwmT D5hYUDvjwiwk897GdBa DCT4RULvoPVkJ0NwsC6 iSsDyVXBpJVFeY8AfjJ UvAZseF271QRlmVnD7D UQbicAtN0TaTKBsqBrk NjJ3n6S6Xe5mMe2fUA1 qPNNtAN36GU73uLWff5 P6xVE3H6HnZHJffpinu kjndOG1UBQkEIDrzK45 rCQzXNsgNp0gm0O1b31 1CNDjSZQpqI46Du7ekZ jvRFTahULLbJ5nvxyhu 4meolmwCqJqRMRiKRl1 ZMx7VOUwkCmbVaOaJKQ 1MkD1XAB9nUVesJ3kqV ivdadqnM5qAvw+NzkgW CPezmN0D8PhMwe3HPBk xMdmVL1shVTvYFnaYf0 zwIvmuIfxTJ6yXZFesy yyUKBhbB3dBPVleNXso JmcUZ3uRIDrvedrl013 BcRfSKL7TDVguIXiK4X xpC0kTrYkTYLoCCTiX2 VpnIAdNBkoV228TFmcW hH6IZHswdSaQ7SdWWCr yLsfLwV2o7K1Uk0SGW0 tmRC4V5EeQln1GJGmlF xuEA2myCHcUYioDn0dk TsobMdeWS5iNYIdnpjd TFXmwM4fOOEjsDEthNp rYV5mXRSfariqk918Mv QyVSS2FMGcxYEnX4Eng Z9oGpKdPDCuZYTbE2Ch oQPbJIqpI381NNigCyL 7LIQfytAcN3GzULZhmK cgUkV9j9X2Dr5TjPOwW DVlMK72PU80LU88H2Rq PjwvdGFibGU+PHRhYmx lIHdpZHRoPScxMDAlJy EurKvrFX1vAf4ySEGwE SNlkUyrxQXmLhPzj2ko TOBiYEtrNW4riMlnE7B pdHT2IFNbi7h0Xs22O2 0gG0UkdFQ+CDXxjYU5p YD3gY3kGuIrChV1ULuf Y373PgGtvBGfYskmg9i hy7pswZb2JaZzJKZxvp JaoZviXWW2c6NbOs91R 29sIHdpZHRoPSIyMCUi RDZimJguxt8akL8jPg5 +PCZfqEF0dZY0yZ0oEa UmKuV2AVkcZ932FmTly YDgQjldH57zJ2TqjKO+ XPCiVde1JFSotWrbRM0 igYVgCQrcWn9oNHI1Hy CjBbWiWAyvO9VeRSSyx cdiyfudrDY9DYZwZQTe bA60Ww8tnKejXr0oNNJ xWQJ6XZGbyGDcT0WeoU 5eVtIjRQQpQECgF7Hoe RWpVNwcF747UDndZrO6 SMSjlgEgN1VxPHEsuUx pBoW8w9Z1Tn2BrOkfeH CpNA3vNhGqACx8B1PeI vz1GZXuyCpqZU4znWFv DSgpUl9iiEwpvOstRW2 mSMAiqdxun838GgEcm0 suWOHmrPRbEVmmODR6S 44ip1K0DZYvRJInBEA7 jPT1aC0ieDcqoxbokTB mdDsgdmVydGljYWwtYW diP223JQLmrDgwQhDKW om5A9LqWnh5REMccJhk ZI5txFLqWSukOe0lzTh puLvnGI1sLQNfofvfd2 86GxGog9aqCEMcwRRvC OhaSAE3X78mn7G0MYKl EZIdIBG6rDC5gX3dnZq nbjogbGVmdDsgdmVydG kuAVvaPWidM203DWZar FajQj4ZAix5D0UgEqt2 JRHreYmyYO3lvLBzKMt oMd9wvAaiwAipNC7cND Otjwbzq752BnRvi6khO NJrpSWtKHvhXYQ0N07y b7K9KJDsTSSmBKH6tEQ 7qS9bwIglyodvyXQohZ sgdmVydGljYWwtYWxpZ 246IHRvcDsnPlBheWVy OjwvdGQ+UB98eu08C0V cRmgzUiq8AUNrFHA2zW B2pV4vFUVaWPwto0T4o HX3Y3FysdZtml1wn4db YXBz (more content not included)... Normal [facility] XR wrist RT min 3V*on 2022 XR wrist RT min 3V* [address] [address] XRay Report Signed Patient: Ellen Sánchez MR#: [id number] 1 : 1945 Acct:[id number] Age/Sex: 77 / F ADM Date: 06/20/22 [place] [facility] [place]: Type: [facility] Attending Dr: Beth Moore MD Copies to: Beth Moore MD Ordering Provider: Beth Moroe MD Date of Service: 06/20/22 XR/XR wrist RT min 3V*: Other closed extra-articular fracture of distal end of right RIGHT WRIST - 4 views CLINICAL HISTORY: ORIF right distal radius fracture follow-up COMPARISON: Right wrist 05/23/2022 FINDINGS: Hardware fixation is seen involving the distal radius with a fracture grossly unchanged in alignment. The fracture line is less conspicuous suggestive of healing response. Styloid process fracture of the ulna is unchanged. Bones are grossly demineralized. Carpus demonstrate degenerative change. XR/XR wrist RT min 3V* IMPRESSION: HEALING DISTAL RADIUS FRACTURE. Impression dictated by: Kit Quinonez Jr., D.O.06/20/2022 3:28 PM Dictation Location: [place] [address] Transcribed By: [facility] 06/20/22 1528 Dictated By: Kit Quinonez Jr, DO 06/20/22 1520 Signed By: 06/20/22 1528 [facility] XR wrist RT min 3V* [facility] [employer] Other XR wrist RT min 3V* [facility] [employer] Other XR wrist RT min 3V* [facility] [employer] Other XR wrist RT min 3V* [address] [employer] Other XR wrist RT min 3V* XRay Report [facility] [employer] Other XR wrist RT min 3V* Signed [employer] [facility] Other XR wrist RT min 3V* Patient: Ellen Sánchez MR#: [id number] [facility] [employer] Other XR wrist RT min 3V* 1 [employer] Other XR wrist RT min 3V* : 1945 Acct:[id number] [employer] Other XR wrist RT min 3V* Age/Sex: 77 / F ADM Date: 06/20/22 [employer] Other XR wrist RT min 3V* Loc: [facility] Room: Type: REG CLI [employer] Other XR wrist RT min 3V* Attending Dr: Beth Moore MD [employer] Other XR wrist RT min 3V* Copies to: Beth Moore MD [employer] Other XR wrist RT min 3V* Ordering Provider: Beth Moore MD [employer] Other XR wrist RT min 3V* Date of Service: 06/20/22 [employer] Other XR wrist RT min 3V* XR/XR wrist RT min 3V*: Other closed extra-articular fracture of distal [employer] Other XR wrist RT min 3V* end of right [employer] Other XR wrist RT min 3V* RIGHT WRIST - 4 views [employer] Other XR wrist RT min 3V* CLINICAL HISTORY: ORIF right distal radius fracture follow-up [employer] Other XR wrist RT min 3V* COMPARISON: Right wrist 05/23/2022 [employer] Other XR wrist RT min 3V* FINDINGS: [employer] Other XR wrist RT min 3V* Hardware fixation is seen involving the distal radius with a fracture grossly unchanged in [employer] Other XR wrist RT min 3V* alignment. The fracture line is less conspicuous suggestive of healing response. Styloid process [employer] Other XR wrist RT min 3V* fracture of the ulna is unchanged. Bones are grossly demineralized. Carpus demonstrate degenerative [employer] Other XR wrist RT min 3V* change. [employer] Other XR wrist RT min 3V* XR/XR wrist RT min 3V* [employer] Other XR wrist RT min 3V* IMPRESSION: [employer] Other XR wrist RT min 3V* HEALING DISTAL RADIUS FRACTURE. [employer] Other XR wrist RT min 3V* Impression dictated by: Kit Quinonez Jr., D.OCara06/20/2022 3:28 PM [employer] Other XR wrist RT min 3V* Dictation Location: [place] [address] [employer] Other XR wrist RT min 3V* Transcribed By: TATIANA 06/20/22 [facility] [employer] Other XR wrist RT min 3V* Dictated By: Kit Quinonez Jr, DO 06/20/22 [facility] [employer] Other XR wrist RT min 3V* Signed By: [employer] Other XR wrist RT min 3V* 06/20/22 1528 [employer] Other CTA Abdomen and Pelvison CTA Abdomen and Pelvis Exam Date/Time: 06/15/2022 12:45 EST Reason for Exam: E71.40;Abdominal aortic Aneurysm (AAA) Report Review CTA chest for report CTA of the abdomen and pelvis Ordering Provider: Gustavo Badillo FINAL REPORT Dictated: 06/16/2022 10:17 am Ivan Saavedra MD Signed (Electronic Signature): 06/16/2022 10:17 am Signed by: Ivan Saavedra MD Transcribed by: RIA Technologist: SANDRA Technical Comments GFR (mL/min/1/73m2) >60 Contrast: Isovue 370 Contrast amount in ml's: 100 Normal [facility] CTA Cheston 06-16-2022 CTA Chest Exam Date/Time: 06/15/2022 12:45 EST Reason for Exam: E70.20;Other (please specify) Report IMPRESSION: NONSTENTED ANEURYSM ASCENDING THORACIC AORTA. DILATATION AND ANEURYSMAL CHANGE AORTIC ARCH STENT GRAFT EXTENDING FROM MID DESCENDING THORACIC AORTA TO DIAPHRAGMATIC HIATUS. SECOND STENT GRAFT BEGINNING SUPRARENAL ABDOMINAL AORTA AND EXTENDING DISTALLY TO BIFURCATION COMMON ILIAC ARTERIES. THIRD STENT BEGINNING FROM DISTAL RIGHT COMMON ILIAC ARTERY TO MID RIGHT EXTERNAL ILIAC ARTERY. ANEURYSMAL CHANGE MEASURING 1.3 X 1.1 X 1.9 CM POSTERIOR TERMINUS RIGHT INTERNAL MAMMARY ARTERY ABUTTING RIGHT BRACHIOCEPHALIC VEIN. STENTED RIGHT COMMON ILIAC ARTERY ANEURYSM MEASURES 3.6 CM. THE LEFT COMMON ILIAC ARTERY ANEURYSM MEASURES 2.1 CM. [address]LECYSTECTOMY. SIGMOID DIVERTICULOSIS. CT OF THE CHEST, ABDOMEN, AND PELVIS WITH INTRAVENOUS CONTRAST MEDIUM. HISTORY: E70.20 aneurysm TECHNICAL FACTORS: CT imaging of the chest, abdomen, and pelvis, was obtained and formatted as 5 mm contiguous axial images from the thoracic inlet through the symphysis pubis. Sagittal and coronal reconstructions obtained during postprocessing. Intravenous contrast medium: 100 ml of Isovue-370 Comparison: None CT OF THE CHEST FINDINGS: Right lung: No nodules, masses, consolidation, pleural effusion, pneumothorax. Left lung: No nodules, masses, consolidation, pleural effusion, pneumothorax. Lymph nodes/mediastinum: No hilar, mediastinal, or axillary lymph node enlargement. 1.3 x 1.1 x 1.9 cm posterior right internal mammary artery abutting left brachiocephalic vein (series 4, image 35, series 6, image 69, series 8, image 65). Thoracic aorta: Anterior thoracic aorta at level of pulmonary arterial bifurcation Report measures 4 x 3.9 cm. Transverse diameter proximal aortic arch 3.4 cm. Posterior arch 3.9 cm. Vascular stent identified with craniocaudal component beginning mid descending thoracic aorta and extending to diaphragmatic hiatus. Cardiac: Normal in size. No pericardial effusion. Chest Wall: Lateral venous vasculature extending from approximately left axillary vein to left brachiocephalic vein along left anterior chest wall. Musculoskeletal:No osteoblastic, and no osteolytic lesions. CT OF THE ABDOMEN AND PELVIS WITH INTRAVENOUS CONTRAST MEDIUM. FINDINGS: Liver: Normal in size, shape, and attenuation. Bile Ducts: Normal in caliber. Gallbladder: Surgically absent. Pancreas: Normal without masses, cysts, ductal dilatation or calcification. Spleen: Normal in size without masses or calcifications. No splenules. Kidneys: Normal in size and enhancement. No hydronephrosis, or stones. Cortical cyst anterior midpole right kidney measuring 2.1 cm. Pelvic renal cyst on left measuring 2.7 cm.. Adrenals: Normal. Small bowel: Normal in caliber. Appendix: Not visualized. Colon: Diverticular change, sigmoid colon. Peritoneum: No ascites, free air, or fluid collections. Vessels: AP and lateral dimension suprarenal abdominal aorta at origin celiac artery just distal to determine as thoracic aortic stent measures 3.6 x 3.9 cm. Abdominal aortic vascular stent visualized beginning just cephalad to ostia renal arteries extending on the left to bifurcation left common iliac artery. Vascular stent on right extends to determine as right common iliac artery where second vascular stent is visualized beginning at level of distal left common iliac artery and extending to mid right external iliac artery. AP dimension right common iliac artery measures 3.6 cm. Similar measurement left common iliac artery 2.1 cm. Ostia celiac artery, superior mesenteric artery, and bilateral single main renal arteries patent. Portal vein, splenic vein, superior mesenteric vein are patent. Lymph nodes: Retroperitoneal: No enlarged retroperitoneal lymph nodes. Mesenteric: No enlarged mesenteric lymph nodes. Pelvic: No enlarged pelvic lymph nodes. Report Ureters: Normal in course and caliber. No calcifications. Bladder: No wall thickening. Reproductive organs: No pelvic masses. Abdominal Wall: No hernia identified. No diastasis of rectus musculature. No edema or masses. Bones: No bone lesions. Compression fracture L4. Posterior disc space narrowing L3-L4. Anterior osteophytes L3 and L4. No post operative changes. All CT scans at this facility use dose modulation, iterative reconstruction, and/or weight based dosing when appropriate to reduce radiation dose to as low as reasonably achievable. Ordering Provider: Gustavo Badillo FINAL REPORT Dictated: 06/16/2022 10:16 am Ivan Saavedra MD Signed (Electronic Signature): 06/16/2022 10:16 am Signed by: Ivan Saavedra MD Transcribed by: RIA Technologist: SANDRA Technical Comments GFR (mL/min/1/73m2) >60 Contrast: Isovue 370 Contrast amount in ml's: 100 Normal [facility] CHEMISTRYOrdered By: SYSTEM SYSTEM on 06-15-2022 Creatinine [Mass/Vol] 0.7 mg/dL Normal 0.5 - 1.3 mg/dL [facility] Remisol GFR/1.73 sq M.predicted among blacks MDRD (S/P/Bld) [Vol rate/Area] mL/min/1.73 m2 Normal >=59mL/min/1 .73 m2 [facility] Chem S GFR/1.73 sq M.predicted among non-blacks MDRD (S/P/Bld) [Vol rate/Area] mL/min/1.73 m2 Normal >=59mL/min/1 .73 m2 [facility] Chem S Consent for Treatmenton 06-06 Consent for Treatment [id number]#1.00CD:127 Normal [facility] Creatinineon 06-15-2022 Creatinine [Mass/Vol] 0.7 mg/dL Normal 0.5-1.3 [facility] Comment on above: Performed By: #### 2 [id number] ####[facility] [address] [place] [address] eGFRon 06-15-2022 GFR/1.73 sq M.predicted among blacks MDRD (S/P/Bld) [Vol rate/Area] mL/min/{1.73_m2} Normal >=59 [facility] Comment on above: Order Comment: Order added by Discern Expert. Result Comment: eGFR is race adjusted. AA=. Performed By: #### 2 [id number], [id number] ####[facility] [address] [place] [address] GFR/1.73 sq M.predicted among non-blacks MDRD (S/P/Bld) [Vol rate/Area] mL/min/{1.73_m2} Normal >=59 [facility] Comment on above: Order Comment: Order added by Discern Expert. 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 Kidney failure is indicated at less than 15 mL/min/1.73m2. Performed By: #### 2 [id number], [id number] ####[facility] [address] [place] [address] Physician Orderon 06-14-2022 Physician Order [id number]#[id number]:127 Normal [facility] Coding Summary.on 06-05-2022 Coding Summary. [id number] LIw9gZh+PGhlYWQ+PE1 IUMPiE73ihNRtuJ1SU7 aLOK6RBITQPIZLUE1JD U3wyHT2FFziW6RvspSf DjmzkVUrCZ87MHp3SEH 8gJcwCDnunL2pgQBvS7 u9GeEjGQ03cF80DVwyG JEfYdG2HwJgrcnwkUGw W5ggTnTfxQVrZom+PHR hYmxlIHdpZHRoPScxMD KaFaHvsUlhJN7sJa3eK GVyLWNvbGxhcHNlOiBj v1qvQKEgQCkpQI6tiLp nE5UadWP6QWRru6k7Xe 48dHI+GRQtGHA3hPieZ Ifrt047UqQab9soUOK5 bBRkZSafEVA8N55ra6U 3MIGwHVYjSNA2oDE0aS 0xjDzytgzxU8FxvQAjU sU9ENJ5zNZzrD9bhNoi hqandX5fMjh+W82GRK0 RUHFGJK4SSbf4G1CpKb wvdHI+WQ09QMLiIX85y XGatPPnh4awkVr2LxMx PPUmMGI2sVyhGEunk7J vDIEmQ47shFXtt6L5KN FixYeioAUuPfBrgFR7w Z8uTHohiqppg5flexxz Cvvhn5xqhw17aK69J87 aUBjlIIRvLDA2HDEcDG RyoTmlti3ofN3nQe0+I Eser1wto4klaSi4FcGh QXYvivRbrZmpLPV4v3Q lZi59S2FjdHujg8SmVo u9wv05rQMfd3U8vJZ7O WuuTTZbhE3fTSodCwR1 DYWuRrTrgA77bNFcNFm zCe6giQpguDriSG1kZC LgmsdpUVIezE1yBFXrh DIhbZibMO9zRKKfzdrr o929XaFsMWB7BGExaTH pS0PylI7jLqWfDIJnDZ IkP9LijTZiEGflX756Z NtfFxU5SSAleqOnM6Xp UFAgySnoXjM1v8K2Rk4 Ky3PlsookBMV1PVocJE CoQuR5MeNtIdP4W4NcB wt8ICEdwAfkPC9vO9Sz YYEarpbcvinigPB4XHE yVORfqI36sHRvSAtkAb 4qd1R0z039IGCiSNLpu Q59Yj8aeKdmKVGyrNTR xP0nzpqtn4cyltxzWbB rXTTiJOd9BBt6MWOnbE doBdXsMRL4MtJ7DQY0r RYxvV1irFieccqsfL7t Oyc+C80sfU3hLYI9EKL 0msiwYBNgdiHbMQ29TH 22E2HtUsltkUUezHG+P VOdxwUdpTuiKF9kMaZt z1tbm6BiSEepF4WwDVN rHWkqYcb7GYKhMFN7dT K9vE8gNOAoIOfuk3J3s QP6H7RljsBesa3dh3tx HILvAYhdT81vgHWlv2D 6ZWZezQU0JGXcqPxwOd BceN46Ycc+PGNvbGdyb 1IqZzqqc9nda3fzePc1 IjMwJSIgdmFsaWduPSJ 4o4EmJg51H43cIMxqUI RoPSIxNSUiIHZhbGlnb l5yeG5nVr6+PGNvbCB3 tUB2sJ1cRUDlYuL7UQn rP696EyCcyCWiAuppm2 lux9wkdJw4AxWvBNJcn lHumImlWYF7h3TeCf51 R67yUSzbSRTaVYHdIDM fLRMilJhvil2tsZ4zYr 8+SC0nb5wxxl47mD45v HI+JNYsWDV1lKxgFBzd BRPnnT7nKQwgDlM3ONA fUuJtiN45yDYaKCshRz 3llIxqfNwgKI0nXIJul qkfk684WbQgw6ztCRRy sJCgXCugVQU9S03qv2M 6GJGuYJMzBJC2zRU5pP 1hbGlnbjogbGVmdDsgd yIweIchZCtyQLbnA969 IHRvcDsnPlBhdGllbnQ gSsOqJFa4N5YmDop5LG ZusPjrWV7poTGlZGsqF i6twXxfsBksLZ6fDNFq vfutj808VcUaj4jtIBL jwEYwBStoAGW6V15ko6 A7WYGsWZUkUMV7qPA4a A6rcPldefttjNQrjSmz iqAovZaaHPwzERadH21 6IHRvcDsnPkJpcnRoIE RrkKQ5NX15CY95yDWlt 5Q9xSD6X8HaRYDgvfbq guzhcHL5MTMhOCOxmZ6 3Ie4fsGrkSh1aSTZlCN S8ENHpgFHqR0WyxK5cS gIgZEVoLENcA0HwfEDy XIdcU628SDcjNyF5GIA mnlNjE5KxBCKvhSgqSy Z2f9P2Fr3WF0B4AR73M M21xGAti1D2iYW6N8Au VGGyzwkljwvtqXZ9IOF wQLNyoQ08Zv0bpZpfBv 9pDHYeCFN9PMRygXXhR 2RjsJ8yXhQjCROhMIRe A7ObqPHoWUvpL081EHh gWgQ4WNIylcTjJ6YvGH GniMcxIuY9p8V5Dy5HF Lu5NT84OW68wOBpl2Q9 zHT1R4QyVXOinjfdsws esSQ9VBPcAEUclS16Nd 8ahJlsNl1uSRHlISD3O NYwxHKzO2FouY3fRrBj ISKxBQWgX5CcmEXzBAp yQ921ZKegLsA0LGTjqk NnI8SkTXAthIfdZlU4d 3X7Mk0VFTDaVD43RHJ8 zHU0WS14LR40R7AeJhc vdGFibGU+PHRhYmxlIH dpZHRoPScxMDAlJyBzd BziDM2fWr8wFYJnSJAn dYedkKOuVsNwk8puDKJ aBKtfGS2uoIzqZ6MtvV X2LQWem4j4Zo06L90zO 3JvdXA+DLIfvKY2xNN9 vU5oOnSdFyS4HHfdM58 7CyFvqBZbElbwl1czu0 vvzRf2WwU8EBGjtoVjy UskALH7e9SuRg07M70v IHdpZHRoPSIxNSUiIHZ ueXrmsx4npN3zYw7+PG AtnDJ5dCZ2fF7jUnQdX hG1BCkjX530DqDwqVBs Beqlv8lrx9jnyTd5PaJ uXDJnydZipKwnNZV3u6 JuEi70D2UjlJjmp3KaH hk4fm87eFUxj6B5tOW0 L9FtBEIddjbdzJXhoCf bFR4aDWSsjtfcUZDumN 6jYPXbR8x2BhXvVmJ4N PdiS9KwnoF1TEHxiYPa KHucMUR2G47pe8R7RCU sZKHzIBV3bLF8hA3tgJ lnbjogbGVmdDsgdmVyd WheLSkaNMnrI377VOJf oJwdOYUvlP0gHVCcvOL sfFdqXJ0dMPNlnuwfMa hBWVdBUkQsIFRPTllBP C91GO21oPPnh5S2rDV4 P6HqHLXssvkbtozpbOH 8KXKiJBEkhD77xXHvPJ ddKr4ph4F4w546EUYrK DJftE72Dg5msPspORBy eDKJhE6ptzvsn5uqdlv iUmOyCZRaOFi8PBo6TK UpbAsjQrObEPY3UiF2D QG5hAUokG7ckXdppvhs sF3dNae+MTIvMTQvMTk 0MzwvdGQ+IRKoKVB2jC ukFKhrTVItcN0bFNItR 9o4KuOaIzT5ATedZ5Ux HKYimratSs02cI1oRlT qHeY8VHaiB6ZlpqL7OE AhiRCmRAqgTWA6A48fg 3K2CPStQCImPUS5jDP4 rO1gjWmkswwnyHZasWo gdmVydGljYWwtYWxpZ2 49KJLumXntXdw8ODcdR VFmOP28KN97rJTcv9U8 xGK9C7XhZZWdcjdhxwf trQL2GRFcOJGpfZ32pN KnQTmnAu8yo6I2h331Y WXgWNJpgN82Bd6akHdx HXLcfDHOmF0anvotr1z mfuajImZvYXCyOPq7TC l4LGPyeAtsMcJxMQL0Q hA9JFG2zUTorD1ivIgk wpnwvX3xMlu+RmVtYWx gMC21NS39nYDrg7Y9yE S7S9VpJIBnwmyorvwjo MP8PZQxWDCpgJ07uRVy ALvkGv3su6Y1q261XVC qFDSpoK64It5qpHgcUR AoxOLQtH8mvytxo5ljh zrvGqCvFPLnGNw1UUl1 FNNihCsnExDuDUQ8FwR 2PHD7iIKlvN8awLrggf gzjW5gBcg+P8Q9uJX9c WVudDwvdGQ+QD31il39 O9ZuWejfItp1OKScETL 3eSO4nL9kBEXgWEgyc7 F0dDU8P1MrctFscb6hj 0ghLQQoUBroF71gfFAu e4C2IWTmlJH0ZOUluSr kUwAvaL71Rtv+PGNvbG fos1StLueof7nna2szk Ru3XeFkMDVknfUvgLpb QNW9o8ElBm23O70mFZz pZHRoPSIzMCUiIHZhbG amcp6fyR7uBi4+PGNvb GQ3cMB1cR7qYbWcYrC1 VNfbS816QfWgyWDmIbx ag4uzf5tzeHh8TbOrKX DvmrMazWeyBMV1w3ZgL r74D2AcwGjht4GzOfy2 vc65eFZae2I0iBM6X9Y hZGRpbmctbGVmdDogMC 0nUCFvpnzdKCBiaM8aE KVoP5z0VwAfEqN0JOlu P3UuakZ9ALSqkRXtUKN mtCAUtK7kxtaqb2frzb fbBnEeGZJmIJy8KLs4Y LFcqSolPbEhJEX7VoX3 MEX9kFQrrC3ppTievke qtJ6hAru+VPw9q6lqiK GxAW4lvTZ8PB77EW25q WOvz7T9eXJ4N7OmDDBy skgxsugeaXH1QAHmSMH rlC03Mc4dxNgmTb5yQN LpUIT6UVBduVKjN9Mzk V2rAsPoVQQkBETmP8Vf bLKfSDkiT693GVurXbY 6TEHfwaUzR3HfIWUqeJ hvDjE9c6B4Jn3WAJ09Z M99FD21cMBrb0L8iXZ3 R4MyMZWsomtidrvawGT 9EMMvJBGqmL78Ro8vqB pwCv5vVSWgPVK7NZIrm XObP4GupD6vYuRgJSGt RTUlC3RctIXrCUpaV94 3BDukCsJ5OCNifwXiK5 YsPJKdbHreDgV5x9Y7J h6XLv08MJ90UO39vMAa c8K6zTM9H4OqVLGfwpo wqpctvBH3ZZRwQAPlxX 64Fr2qrQbcOu3mBLWoP DM1JVUnmMXxV5SyyK4r LqRcLJCcINAjF9StoED vKItjR248YZnnDyA2IM KdgpFgQ6YxMBAxbZqjG xK9a3K5Sn4MRRmxagp2 Z4FgOppznKB+UN66XRT yZZ13oVLidQOlx0xkhS n6RsIyHTLcIAV1jYvxC Cejz4WtTEQwA58jcMYj c2U6 (more content not included)... Normal [facility] Consent for Treatmenton 05-10 Consent for Treatment [id number]:127 Normal [facility] Heart and Vascular Office/Cl inic Noteon 06-04-2022 Heart and Vascular Office/Clinic Note Chief Complaint New patient- Establish care History of Present Illness This is a 77-year-old lady status post TEVAR and EVAR for aneurysmal diseases. She also has arch aneurysm of 5 cm. She did have recent scans. She fell and broke her wrist for which she had surgeries. She is here for surveillance. She has no chest pain or abdominal pain. Review of Systems PHQ Score Initial Depression Screen Score: 0 Constitutional: no fever, no chills, no sweats, no weakness Skin: no Jaundice, no rash, no lesions, nopetechiae ENMT: no ear pain, no sore throat, no congestion, no hoarseness Respiratory: no shortness of breath, no cough, no orthopnea, no wheezing Cardiovascular: no chest pain, no palpitations, no edema Gastrointestinal: no nausea, no vomiting, no diarrhea, no GI bleeding Genitourinary: no dysuria, no hematuria, no discharge, no pain Musculoskeletal: no back pain, no trauma Neurologic: no headache, no dizziness, no numbness, no weakness Psychiatric: no sleeping problems, no irritability, no mood swings/depression. Heme/Lymph: no bleeding tendency, no bruising tendency, no petechiae, no swollen nodes Allergy/Immunologic : no seasonal allergies, no food allergies, no recurrent infections, no impaired immunity Additional ROS info: Except as noted in the above Review of Systems and in the History of Present Illness all other systems have been reviewed and are negative or noncontributory. Physical Exam Vitals & Measurements HR: 77(Peripheral) BP: 146/87 SpO2: 98% HT: 64 in HT: 162 cm WT: 72.8 kg WT: 160.16 lb BMI: 27.74 General: alert, no acute distress Skin: warm, dry Head: no trauma, normocephalic Neck: Trachea midline, no adenopathy, no tenderness Eye: normal conjunctiva, sclera clear Cardiovascular: regular rate and rhythm, normal peripheral perfusion Respiratory: Lungs CTA, respirations non labored Chest wall: no deformity. Gastrointestinal: soft, non distended, no tenderness, no guarding. Back: No tenderness, Normal ROM, Normal alignment. Extremities: no edema,no deformity, no trauma Neurological: oriented x 4, LOC appropriate for age, motor strength equal & normal bilaterally, sensation equal & normal bilaterally, speech normal Psychiatric: cooperative, affect appropriate for age, normal judgement, normal psychiatric thoughts. Assessment/Plan 1. Thoracic aortic aneurysm (I71.20: Thoracic aortic aneurysm, without rupture, unspecified) CT of the chest 2. Abdominal aortic aneurysm (AAA) (I71.40: Abdominal aortic aneurysm, without rupture, unspecified) CT of the abdomen pelvis Follow-up No qualifying data available Problem List/Past Medical History Ongoing No qualifying data Historical No qualifying data Procedure/Surgical History Cataract Extraction with IOL placement - OD (02/21/2016). Medications amLODIPine 5 mg Tab aspirin 81 mg Oral EC Tab, 81 mg= 1 tab(s), Oral, Daily Colace hydrochlorothiazide , 25 mg, Oral, Daily Lopressor niacin 500 mg ER Tab Pantoprazole [address] Tab potassium chloride 10 mEq Cap-ER, 20 mEq= 2 cap(s), Oral, Daily ranitidine, 75 mg, Oral, Daily, PRN Zyrtec Allergies Bee Stings (Edema) Neosporin (Blisters) acetaminophen-oxyco done (Unknown) alendronate (Unknown) bacitracin (Unknown, Rash) ciprofloxacin (Unknown) neomycin (Unknown, Rash) oxyCODONE (Unknown) Social History Tobacco - Denies Tobacco Use, 06/04/2022 Former smoker, quit more than 30 days ago Tobacco Use:. Never Smokeless Tobacco Use:., 06/04/2022 Family History Acute myocardial infarction: Father. Alzheimer's disease: Mother. Diabetes mellitus type 2: Father. Normal [facility] Comment on above: Result Comment: Elec tronically Signed By: Justino CUNNINGHAM, Gustavo Ruiz\.br\Date and Time Signed: 06/04/22 11:00 EST Physician Orderon 06-04-2022 Physician Order [id number]:127 Normal [facility] XR wrist RT min 3V*on 2022 XR wrist RT min 3V* [facility] [place] [address] [place] [address] XRay Report Signed Patient: Ellen Sánchez MR#: [id number] 1 : 1945 Acct:[id number] Age/Sex: 77 / F ADM Date: 05/23/22 [place] [facility] [place]: Type: [facility] Attending Dr: Beth Moore MD Copies to: Beth Moore MD Ordering Provider: Beth Moore MD Date of Service: 05/23/22 XR/XR wrist RT min 3V*: Other closed extra-articular fracture of distal end of right RIGHT WRIST - 4 views CLINICAL HISTORY: Right distal radius fracture ORIF. Follow-up COMPARISON: Right wrist 04/30/2022 FINDINGS: Cast material is now been removed. Bones are grossly demineralized. Hardware fixation involving the distal radius without evidence of hardware complication. No significant healing is seen since the prior study. Remote styloid process fracture involving the ulna. 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 Soft tissue swelling. XR/XR wrist RT min 3V* IMPRESSION: NO SIGNIFICANT CHANGE IN DISTAL RADIUS FRACTURE FINDINGS COMPARED TO THE PRIOR STUDY. Impression dictated by: Kit Quinonez Jr., D.O.05/23/2022 3:50 PM Dictation Location: [place] [address] Transcribed By: TATIANA 05/23/22 1550 Dictated By: Kit Quinonez Jr, DO 05/23/22 1548 Signed By: 05/23/22 1550 Normal [facility] XR wrist RT min 3V* [facility] [employer] Other XR wrist RT min 3V* [facility] [place] [facility] [employer] Other XR wrist RT min 3V* [address] [facility] [employer] Other XR wrist RT min 3V* [place] [address] [employer] Other XR wrist RT min 3V* XRay Report [facility] [employer] Other XR wrist RT min 3V* Signed [employer] Other XR wrist RT min 3V* Patient: Ellen Sánchez MR#: [id number] [employer] Other XR wrist RT min 3V* 1 [employer] Other XR wrist RT min 3V* : 1945 Acct:[id number] [employer] Other XR wrist RT min 3V* Age/Sex: 77 / F ADM Date: 05/23/22 [employer] Other XR wrist RT min 3V* [place] [facility] [place]: Type: [facility] [employer] Other XR wrist RT min 3V* Attending Dr: Beth Moore MD [employer] Other XR wrist RT min 3V* Copies to: Beth Moore MD [employer] Other XR wrist RT min 3V* Ordering Provider: Beth Moore MD [employer] Other XR wrist RT min 3V* Date of Service: 05/23/22 [employer] Other XR wrist RT min 3V* XR/XR wrist RT min 3V*: Other closed extra-articular fracture of distal [employer] Other XR wrist RT min 3V* end of right Nor [employer] Other XR wrist RT min 3V* RIGHT WRIST - 4 views [employer] Other XR wrist RT min 3V* CLINICAL HISTORY: Right distal radius fracture ORIF. Follow-up [employer] Other XR wrist RT min 3V* COMPARISON: Right wrist 04/30/2022 [employer] Other XR wrist RT min 3V* FINDINGS: [employer] Other XR wrist RT min 3V* Cast material is now been removed. Bones are grossly demineralized. Hardware fixation involving [employer] Other XR wrist RT min 3V* the distal radius without evidence of hardware complication. No significant healing is seen since [employer] Other XR wrist RT min 3V* the prior study. Remote styloid process fracture involving the ulna. Carpus demonstrate [employer] Other XR wrist RT min 3V* degenerative change worse at the CMC joint of the thumb. Soft tissue swelling. [employer] Other XR wrist RT min 3V* XR/XR wrist RT min 3V* [employer] Other XR wrist RT min 3V* IMPRESSION: [facility] [employer] Other XR wrist RT min 3V* NO SIGNIFICANT CHANGE IN DISTAL RADIUS FRACTURE FINDINGS COMPARED TO THE PRIOR STUDY. [employer] Other XR wrist RT min 3V* Impression dictated by: Kit Quinonez Jr. DCaraOCara05/23/2022 3:50 PM [employer] Other XR wrist RT min 3V* Dictation Location: [place] [address] [employer] Other XR wrist RT min 3V* Transcribed By: TATIANA 05/23/22 1550 [employer] Other XR wrist RT min 3V* Dictated By: Kit Quinonez Jr, DO 05/23/22 1548 [employer] [facility] [employer] Other XR wrist RT min 3V* Signed By: [employer] Other XR wrist RT min 3V* 05/23/22 1550 No rt Any[employer] Other Basic Metabolic Panelon 04-09 Anion gap [Moles/Vol] 16.4 mmol/L High 6.0-15.0 [facility] Comment on above: Performed By: #### C BC, BMP #### [facility] [address] Calcium [Mass/Vol] 9.5 mg/dL Normal 8.2-10.2 [facility] Comment on above: Performed By: #### C BC, BMP #### [facility] [address] Chloride [Moles/Vol] 98 mmol/L Normal 95-114 [facility] Comment on above: Performed By: #### C BC, BMP #### [facility] [address] CO2 [Moles/Vol] 24.1 mmol/L Normal 22.0-30.0 [facility] Comment on above: Performed By: #### C BC, BMP #### [facility] [address] [place] [address] [place] Creatinine [Mass/Vol] 0.89 mg/dL Normal 0.44-1.03 [facility] Comment on above: Performed By: #### C BC, BMP #### [facility] [address] [place] [address] [place] Creatinine Clr Calc Pharmacy 49.75 Normal [facility] Comment on above: Result Comment: PERF ORMED BY: [place] [address] PATHOLOGIST FOOD CHEMIST ANDREA TIDWELL M.D. Performed By: #### C BC, BMP #### [facility] [address] [place] [address] [place] Estimated GFR ( Samantha > 60 Normal [facility] Comment on above: Result Comment: GFR estimated reference range: According to KDOQI guidelines, <60 ml/min/1.73m2 is sufficient to diagnose a patient with chronic kidney disease. Performed By: #### C BC, BMP #### [facility] [address] Estimated GFR (Non- Am > 60 Normal [facility] Comment on above: Performed By: #### C BC, BMP #### [facility] [address] Glucose [Mass/Vol] 108 mg/dL High 70-100 [facility] Comment on above: Result Comment: [place] Glucose Reference Range is dependent on time and content of last meal. Glucose of more than 200 mg/dL in a nonstressed, ambulatory subject supports the diagnosis of Diabetes Mellitus. ADA recommended reference range Performed By: #### C BC, BMP #### [address] Potassium [Moles/Vol] 3.5 mmol/L Normal 3.5-5.1 [facility] Comment on above: Performed By: #### C BC, BMP #### [address] Sodium [Moles/Vol] 135 mmol/L Low 136-146 [facility] Comment on above: Performed By: #### C BC, BMP #### [address] Urea nitrogen [Mass/Vol] 17 mg/dL Normal 9-23 [facility] Comment on above: Performed By: #### C BC, BMP #### [place] [address] [place] Basophils Auto (Bld) [#/Vol] Ordered By: ARIANNE PURDY on 04-30-2022 Basophils (Bld) [#/Vol] 0.0 10*3/uL 0.0-0.2 [facility] Basophils/100 WBC Auto (Bld) Ordered By: ARIANNE PURDY on 04-30-2022 Basophils/100 WBC (Bld) 0.2 % . [facility] Complete Blood Count Auto Di ffon 04-30-2022 Basophils (Bld) [#/Vol] 0.0 10*3/uL Normal 0.0-0.2 [facility] Comment on above: Result Comment: PERF ORMED BY: [place] [address] PATHOLOGIST FOOD CHEMIST ANDREA TIDWELL M.D. Performed By: #### C BC, BMP #### [facility] [address] Basophils/100 WBC (Bld) 0.2 % Normal . [facility] Comment on above: Performed By: #### C BC, BMP #### [facility] [address] Eosinophils (Bld) [#/Vol] 0.1 10*3/uL Normal 0.0-0.45 [facility] Comment on above: Performed By: #### C BC, BMP #### [facility] [address] [place] [address] [place] Eosinophils/100 WBC (Bld) 1.1 % Normal . [facility] Comment on above: Performed By: #### C BC, BMP #### [facility] [address] Erythrocyte distribution width (RBC) [Ratio] 14.9 % Normal 11.9-15.3 [facility] Comment on above: Performed By: #### C BC, BMP #### [facility] [address] [place] [address] [place] Hematocrit (Bld) [Volume fraction] 36.4 % Normal 34.0-46.4 [facility] Comment on above: Performed By: #### C BC, BMP #### [facility] [address] [place] [address] [place] Hemoglobin (Bld) [Mass/Vol] 12.1 g/dL Normal 11.8-15.4 [facility] Comment on above: Performed By: #### C BC, BMP #### [facility] [address] [place] [address] [place] Lymphocytes (Bld) [#/Vol] 1.2 10*3/uL Normal 1.00-4.8 [facility] Comment on above: Performed By: #### C BC, BMP #### [facility] [address] [place] [address] [place] Lymphocytes/100 WBC (Bld) 16.1 % Normal . [facility] Comment on above: Performed By: #### C BC, BMP #### [facility] [address] [place] [address] [place] MCH (RBC) [Entitic mass] 28.2 pg Normal 24.7-34.3 [facility] Comment on above: Performed By: #### C BC, BMP #### [address] MCV (RBC) [Entitic vol] 85.0 fL Normal 80-100 [facility] Comment on above: Performed By: #### C BC, BMP #### [address] Mean Corpuscular HGB Conc 33.2 g/dL Normal 32.0-35.0 [facility] Comment on above: Performed By: #### C BC, BMP #### [place] [address] [place] Monocytes (Bld) [#/Vol] 0.6 10*3/uL Normal 0.0-0.8 [facility] Comment on above: Performed By: #### C BC, BMP #### [place] [address] [place] Monocytes/100 WBC (Bld) 8.4 % Normal . [facility] Comment on above: Performed By: #### C BC, BMP #### [place] [address] [place] Neutrophils (Bld) [#/Vol] 5.6 10*3/uL Normal 1.8-7.7 [facility] Comment on above: Performed By: #### C BC, BMP #### [address] [place] [address] [place] Neutrophils/100 WBC (Bld) 74.2 % Normal . [facility] Comment on above: Performed By: #### C ANDREW, BMP #### [facility] [address] NRBC% 0.1 /100{WBC} Normal 0-0.5 [facility] Comment on above: Performed By: #### C BC, BMP #### [facility] [address] Platelet mean volume (Bld) [Entitic vol] 8.4 fL Normal 6.3-10.7 [facility] Comment on above: Performed By: #### C ANDREW, BMP #### [facility] [address] Platelets (Bld) [#/Vol] 101 10*3/uL Low 150-450 [facility] Comment on above: Performed By: #### C ANDREW, BMP #### [facility] [address] RBC (Bld) [#/Vol] 4.28 10*6/uL Normal 3.60-5.00 [facility] Comment on above: Performed By: #### C ANDREW, BMP #### [facility] [address] WBC (Bld) [#/Vol] 7.6 10*3/uL Normal 3.8-11.6 [facility] Comment on above: Performed By: #### C ANDREW, BMP #### [facility] [address] Creatinine and Glomerular fi ltration rate.predicted panel (S/P/Bld)Ordered By: ARIANNE PURDY on 04-30-2022 Creatinine [Mass/Vol] 0.89 mg/dL 0.44-1.03 [facility] ECG 12 lead ECGon 04-30-2022 ECG 12 lead ECG [facility] [address] [place] [address] [place] [address] Electrocardiograph Report Signed Patient: Ellen Sánchez MR#: [id number] 1 : 1945 Acct:[id number] Age/Sex: 77 / F ADM Date: 04/30/22 Loc: [place] Room: Type: [facility] Attending Dr: Beth Moore MD Ordering Provider: ARIANNE PURDY DO Date of Service: 04/30/22 ECG/ECG 12 lead ECG: perop Copies to: Test Reason : Blood Pressure : / mmHG Vent. Rate : 085 BPM Atrial Rate : 085 BPM P-R Int : 208 ms QRS Dur : 090 ms QT Int : 384 ms P-R-T Axes : 037 -43 021 degrees QTc Int : 456 ms Normal sinus rhythm Left axis deviation Abnormal ECG No previous ECGs available Confirmed by KHOI CUNNINGHAM [facility] ([id number] on 05/01/2022 5:11:40 PM Referred By: Electronically Signed By:EDITH WESTFALL MD [facility] Transcribed By: MUS Signed By Camacho Westfall MD 05/01/22 1711 Normal [facility] Eosinophils Auto (Bld) [#/Vo l]Ordered By: ARIANNE PURDY on 04-30-2022 Eosinophils (Bld) [#/Vol] 0.1 10*3/uL 0.0-0.45 [facility] Eosinophils/100 WBC Auto (Bl d)Ordered By: ARIANNE PURDY on 04-30-2022 Eosinophils/100 WBC (Bld) 1.1 % . [facility] Erythrocyte distribution wid th Auto (RBC) [Ratio]Ordered By: ARIANNE PURDY on 04-30-2022 Erythrocyte distribution width (RBC) [Ratio] 14.9 % 11.9-15.3 [facility] Estimated glomerular filtrat ion rate (GFR) non- AmericanOrdered By: ARIANNE PURDY on 04-30-2022 GFR/1.73 sq M.predicted among non-blacks MDRD (S/P/Bld) [Vol rate/Area] > 60 mL/Min [facility] Hematocrit Auto (Bld) [Volum e fraction]Ordered By: ARIANNE PURDY on 04-30-2022 Hematocrit (Bld) [Volume fraction] 36.4 % 34.0-46.4 [facility] Hemoglobin [Mass/volume] in BloodOrdered By: ARIANNE PURDY on 04-30-2022 Hemoglobin (Bld) [Mass/Vol] 12.1 g/dL 11.8-15.4 [facility] Leukocytes [#/volume] correc roxane for nucleated erythrocytes in Blood by Automated counOrdered By: ARIANNE PURDY on 04-30-2022 WBC corrected for nucl RBC Auto (Bld) [#/Vol] 7.6 10*3/uL 3.8-11.6 [facility] Lymphocytes Auto (Bld) [#/Vo l]Ordered By: ARIANNE PURDY on 04-30-2022 Lymphocytes (Bld) [#/Vol] 1.2 10*3/uL 1.00-4.8 [facility] Lymphocytes/100 WBC Auto (Bl d)Ordered By: ARIANNE PURDY on 04-30-2022 Lymphocytes/100 WBC (Bld) 16.1 % . [facility] MCH Auto (RBC) [Entitic mass ]Ordered By: ARIANNE PURDY on 04-30-2022 MCH (RBC) [Entitic mass] 28.2 pg 24.7-34.3 [facility] MCHC Auto (RBC) [Mass/Vol]Or dered By: ARIANNE PURDY on 04-30-2022 MCHC (RBC) [Mass/Vol] 33.2 g/dL 32.0-35.0 [facility] MCV Auto (RBC) [Entitic vol] Ordered By: ARIANNE PURDY on 04-30-2022 MCV (RBC) [Entitic vol] 85.0 fL 80-100 [facility] Monocytes Auto (Bld) [#/Vol] Ordered By: ARIANNE PURDY on 04-30-2022 Monocytes (Bld) [#/Vol] 0.6 10*3/uL 0.0-0.8 [facility] Monocytes/100 WBC Auto (Bld) Ordered By: ARIANNE PURDY on 04-30-2022 Monocytes/100 WBC (Bld) 8.4 % . [facility] Neutrophils Auto (Bld) [#/Vo l]Ordered By: ARIANNE PURDY on 04-30-2022 Neutrophils (Bld) [#/Vol] 5.6 10*3/uL 1.8-7.7 [facility] Neutrophils/100 WBC Auto (Bl d)Ordered By: ARIANNE PURDY on 04-30-2022 Neutrophils/100 WBC (Bld) 74.2 % . [facility] No Panel InformationOrdered By: ARIANNE PURDY on 04-30-2022 Estimated GFR () > 60 mL/Min [facility] Comment on above: GFR estimated refere nce range: According to KDOQI guidelines, <60 ml/min/1.73m2 is sufficient to diagnose a patient with chronic kidney disease. Pharmacy Creatinine Clearance (Chem 49.75 [facility] Nucleated erythrocytes [Pres ence] in Blood by Automated countOrdered By: ARIANNE PURDY on 04-30-2022 Nucleated RBC Auto Ql (Bld) 0.1 /100{WBC} 0-0.5 [facility] Platelet mean volume Auto (B ld) [Entitic vol]Ordered By: ARIANNE PURDY on 04-30-2022 Platelet mean volume (Bld) [Entitic vol] 8.4 fL 6.3-10.7 [facility] Platelets Auto (Bld) [#/Vol] Ordered By: ARIANNE PURDY on 04-30-2022 Platelets (Bld) [#/Vol] 101 10*3/uL 150-450 [facility] RBC Auto (Bld) [#/Vol]Ordere d By: ARIANNE PURDY on 04-30-2022 RBC (Bld) [#/Vol] 4.28 10*6/uL 3.60-5.00 [facility] Serum or plasma anion gap de terminationOrdered By: ARIANNE PURDY on 04-30-2022 Anion gap [Moles/Vol] 16.4 mmol/L 6.0-15.0 [facility] Serum or plasma calcium nicky urement (mass/volume)Ordered By: ARIANNE PURDY on 04-30-2022 Calcium [Mass/Vol] 9.5 mg/dL 8.2-10.2 [facility] Serum or plasma chloride maged surement (moles/volume)Ordered By: ARIANNE PURDY on 04-30-2022 Chloride [Moles/Vol] 98 mmol/L 95-114 [facility] Serum or plasma glucose nicky urement (mass/volume)Ordered By: ARIANNE PURDY on 04-30-2022 Glucose [Mass/Vol] 108 mg/dL 70-100 [facility] Comment on above: ADA recommended refe rence rangeRandom Glucose Reference Range is dependent on time and content of last meal. Glucose of more than 200 mg/dL in a nonstressed, ambulatory subject supports the diagnosis of Diabetes Mellitus. Serum or plasma potassium me asurement (moles/volume)Ordered By: ARIANNE PURDY on 04-30-2022 Potassium [Moles/Vol] 3.5 mmol/L 3.5-5.1 [facility] Serum or plasma sodium measu rement (moles/volume)Ordered By: ARIANNE PURDY on 04-30-2022 Sodium [Moles/Vol] 135 mmol/L 136-146 [facility] Serum or plasma total carbon dioxide measurement (moles/volume)Ordered By: ARIANNE PURDY on 04-30-2022 CO2 [Moles/Vol] 24.1 mmol/L 22.0-30.0 [facility] Serum or plasma urea nitroge n measurement (mass/volume)Ordered By: ARIANNE PURDY on 04-30-2022 Urea nitrogen [Mass/Vol] 17 mg/dL 12-29 [facility] WBC Auto (Bld) [#/Vol]Ordere d By: ARIANNE PURDY on 04-30-2022 WBC (Bld) [#/Vol] 7.6 10*3/uL 3.8-11.6 [facility] XR wrist RT min 3V*on 2022 XR wrist RT min 3V* [facility] [place] [address] XRay Report Signed Patient: Ellen Sánchez MR#: [id number] 1 : 1945 Acct:[id number] Age/Sex: 77 / F ADM Date: 04/30/22 Loc: [place] Room: Type: [facility] Attending Dr: Beth Moore MD Copies to: Beth Moore MD Ordering Provider: Beth Moore MD Date of Service: 04/30/22 XR/XR wrist RT min 3V*: s/p ORIF distal radius Fx RIGHT WRIST - 3 views CLINICAL HISTORY: Status post ORIF right wrist. COMPARISON: Right wrist series 04/27/2022 FINDINGS: Splint material is in place limiting bony detail. Volar plating is seen involving the patient's distal radius fracture without radiographic complication. XR/XR wrist RT min 3V* IMPRESSION: NO EVIDENCE OF HARDWARE COMPLICATION. Impression dictated by: Kit Quinonez Jr., D.OCara04/30/2022 4:36 PM Dictation Location: [place] [address] Transcribed By: [facility] 04/30/22 163 Dictated By: Kit Quinonez Jr, DO 04/30/22 1635 Signed By: 04/30/22 1636 [facility] CBC AUTO DIFFon 04-27-2022 BASO # 0.0 103/ul Normal 0.0-0.1 [facility] Comment on above: Performed By: #### C BC #### [facility] [address] [address] [address] Sangita Arizmendi Basophils/100 WBC (Bld) 0.2 % Normal 0.2-2.0 [facility] Comment on above: Performed By: #### C BC #### [facility] [address] [address] [address] Sangita Arizmendi EO # 0.1 103/ul Normal 0.0-0.7 [facility] Comment on above: Performed By: #### C BC #### [facility] [address] [address] [address] Sangita Arizmendi Eosinophils/100 WBC (Bld) 0.7 % Critically low 0.9-7.0 [facility] Comment on above: Performed By: #### C BC #### [facility] [address] [place] [address] [address] Sangita Arizmendi Erythrocyte distribution width (RBC) [Ratio] 14.3 % Normal 11.0-15.0 [facility] Comment on above: Performed By: #### C BC #### [facility] [address] [place] [address] Dr. Sangita Arizmendi Hematocrit (Bld) [Volume fraction] 33.1 % Critically low 36.0-48.0 [facility] [facility] Comment on above: Performed By: #### C BC #### [facility] [address] [address] [address] Sangita Arizmenid Hemoglobin (Bld) [Mass/Vol] 12.1 g/dL Normal 12.0-16.0 [facility] Comment on above: Performed By: #### C BC #### [facility] [address] [address] [address] Sangita Arizmendi IG # 0.04 10e3/ul Critically high 0.00-0.03 [facility] Comment on above: Performed By: #### C BC #### [facility] [address] [address] [address] Sangita Arizmendi IG % 0.5 % Normal 0.0-0.5 [facility] Comment on above: Performed By: #### C BC #### [facility] [address] [place] [address] Dr. Sangita Arizmendi LYMPH # 1.5 103/ul Normal 1.2-3.8 [facility] Comment on above: Performed By: #### C BC #### [facility] [address] [place] [address] Dr. Sangita Arizmendi Lymphocytes/100 WBC (Bld) 17.1 % Critically low 20.5-60.0 [facility] Comment on above: Performed By: #### C BC #### [facility] [address] [place] [address] Dr. Sangita Arizmendi MANUAL DIFF REQ NO Normal [facility] Comment on above: Performed By: #### C BC #### [facility] [address] [place] [address] Dr. Sangita Arizmendi MCH (RBC) [Entitic mass] 28.7 pg Normal 26.7-34.0 [facility] Comment on above: Performed By: #### C BC #### [facility] [address] [place] [address] Dr. Sangita Arizmendi MCHC (RBC) [Mass/Vol] 36.6 g/dL Critically high 29.9-35.2 [facility] Comment on above: Performed By: #### C BC #### [facility] [address] [address] [address] Sangita Arizmendi MCV (RBC) [Entitic vol] 78.4 fL Critically low 81.0-99. 0 [facility] Comment on above: Performed By: #### C BC #### [facility] [address] [place] [address] Dr. Sangita Arizmendi MONO # 0.6 103/ul Normal 0.3-0.8 [facility] Comment on above: Performed By: #### C BC #### [facility] [address] [place] [address] Dr. Sangiat Arizmendi Monocytes/100 WBC (Bld) 6.6 % Normal 1.7-12.0 [facility] Comment on above: Performed By: #### C BC #### [facility] [address] [place] [address] Dr. Sangita Arizmendi NEUT # 6.5 103/ul Normal 1.4-6.5 [facility] Comment on above: Performed By: #### C BC #### [facility] [address] [place] [address] Dr. Sangita Arizmendi Neutrophils/100 WBC (Bld) 74.9 % Normal 43.0-75.0 [facility] Comment on above: Performed By: #### C BC #### [facility] [address] [place] [address] Dr. Sangita Arizmendi Platelet mean volume (Bld) [Entitic vol] 9.7 fL Normal 9.5-13.5 [facility] Comment on above: Performed By: #### C BC #### [facility] [address] [place] [address] Dr. Sangita Arizmendi PLT 99 103/ul Critically low 150-450 [facility] Comment on above: Performed By: #### C BC #### [facility] [address] [place] [address] Dr. Sangita Arizmendi RBC 4.22 106/ul Normal 4.20-5.40 [facility] Comment on above: Performed By: #### C BC #### [facility] [address] [place] [address] Dr. Sangita Arizmendi WBC 8.7 103/ul Normal 4.0-11.0 [facility] Comment on above: Performed By: #### C BC #### [facility] [address] [place] [address] Dr. Sangita Arizmendi PROF 14(COMP METB)on 023 Albumin [Mass/Vol] 3.3 g/dL Critically low 3.4-5.0 [facility] Comment on above: Performed By: #### C MP #### [facility] [address] [place] [address] Dr. Sangita Arizmendi Albumin/Globulin [Mass ratio] 0.9 {ratio} Normal [facility] Comment on above: Performed By: #### C MP #### [facility] [address] [place] [address] Dr. Sangita Arizmendi ALP [Catalytic activity/Vol] 76 U/L Normal 46-116 [facility] Comment on above: Performed By: #### C MP #### [facility] [address] [place] [address] Dr. Sangita Arizmendi ALT [Catalytic activity/Vol] 21 U/L Normal 14-59 [facility] Comment on above: Performed By: #### C MP #### [facility] [address] [place] [address] Dr. Sangita Arizmendi Anion gap [Moles/Vol] 9.5 mmol/L Normal [facility] Comment on above: Performed By: #### C MP #### [facility] [address] [place] [address] Dr. Sangita Arizmendi AST [Catalytic activity/Vol] 18 U/L Normal 15-37 [facility] Comment on above: Performed By: #### C MP #### [facility] [address] [place] [address] Dr. Sangita Arizmendi Bilirubin [Mass/Vol] 0.3 mg/dL Normal 0.2-1.0 [facility] Comment on above: Performed By: #### C MP #### [facility] [address] [place] [address] Dr. Sangita Arizmendi Calcium [Mass/Vol] 9.0 mg/dL Normal 8.5-10.1 [facility] Comment on above: Performed By: #### C MP #### [facility] [address] [place] [address] Dr. Sangita Arizmendi Chloride [Moles/Vol] 104 mmol/L Normal 98-107 [facility] Comment on above: Performed By: #### C MP #### [facility] [address] [place] [address] Dr. Sangita Arizmendi CO2 [Moles/Vol] 30.3 mmol/L Normal 21.0-32.0 [facility] Comment on above: Performed By: #### C MP #### [facility] [address] [place] [address] Dr. Sangita Arizmendi Creatinine [Mass/Vol] 0.85 mg/dL Normal 0.55-1.02 [facility] Comment on above: Performed By: #### C MP #### [facility] [address] [place] [address] Dr. Sangita Arizmendi EGFR-AF SRI LANKAN >60 Normal >=60 [facility] Comment on above: Performed By: #### C MP #### [facility] [address] [place] [address] Dr. Sangita Arizmendi EGFR-NON AF SRI LANKAN >60 Normal >=60 [facility] Comment on above: Performed By: #### C MP #### [facility] [address] [place] [address] Dr. Sangita Arizmendi Globulin (S) [Mass/Vol] 3.7 g/dL Normal [facility] Comment on above: Performed By: #### C MP #### [facility] [address] [place] [address] Dr. Sangita Arizmendi Glucose [Mass/Vol] 87 mg/dL Normal 74-106 [facility] Comment on above: Performed By: #### C MP #### [facility] [address] [place] [address] Dr. Sangita Arizmendi Potassium [Moles/Vol] 3.8 mmol/L Normal 3.5-5.1 [facility] Comment on above: Performed By: #### C MP #### [facility] [address] [place], [place] [address] Dr. Sangita Arizmendi Protein [Mass/Vol] 7.0 g/dL Normal 6.4-8.2 [facility] Comment on above: Performed By: #### C MP #### [facility] [address] [place], [place] [address] Dr. Sangita Arizmendi Sodium [Moles/Vol] 140 mmol/L Normal 136-145 [facility] Comment on above: Performed By: #### C MP #### [facility] [address] [address] [address] Sangita Arizmendi Urea nitrogen [Mass/Vol] 16.0 mg/dL Normal 7.0-18.0 [facility] Comment on above: Performed By: #### C MP #### [facility] [address] [address] [address] Sangita Arizmendi Urea nitrogen/Creatinine [Mass ratio] 18.8 mg/mg Normal [facility] Comment on above: Performed By: #### C MP #### [facility] [address] [address] [address] Sangita Arizmendi XR FOREARM RT 2Von 3 XR FOREARM RT 2V EXAM: Right wrist HISTORY: Post reduction and casting. COMPARISON STUDY: Earlier the same day.. TECHNIQUE: 2 views of the right forearm were obtained. FINDINGS: Alignment is improved but there is still some posterior angulation at the fracture site. There are no suspicious bone lesions. Soft tissues are normal. IMPRESSION: Improved alignment after reduction and casting. Electronically authenticated by: CARO CAICEDO Date: 2022-04-27 10:42 Normal [facility] MG MAMM SCREEN 3D GENO CADon 04-25-2022 MG MAMM SCREEN 3D GENO CAD Patient: ELLEN SÁNCHEZ Exam Date: 04/25/2022 : 1945 Gender:F Ordering : DR FE BROWN M.D. Admission #: [id number] Family : Order #: [id number] CLICK HERE TO VIEW EXAM RADIOLOGY REPORT PROCEDURE: MAMMOGRAM SCREENING 3D BILATERAL CAD COMPARISON: MG MAMM SCREEN GENO W CAD, 04/18/2020. MG MAMM SCREEN 3D GENO CAD, 04/24/2021. INDICATIONS: Screening mammography Calculator Name NCI Breast Cancer Risk Assessment Tool 5 Year Breast Cancer Risk 2.30% Lifetime Breast Cancer Risk 3.80% Personal Breast Cancer No Personal Ovarian Cancer No Treatments None Family Cancers None LOCATION: [facility] BREAST COMPOSITION: Heterogeneously dense,which may obscure small masses. FINDINGS: DIAGNOSTIC CATEGORY 2--BENIGN FINDING. NO CHANGE FROM COMPARISON. Scattered benign-appearing nodules are present. Scattered benign-appearing calcifications are present. Scattered benign-appearing lymph nodes are present. RIGHT BREAST: No significant suspicious finding. LEFT BREAST: No significant suspicious finding. RECOMMENDATIONS: ROUTINE MAMMOGRAM AND CLINICAL EVALUATION IN 12 MONTHS. PLEASE NOTE: A NORMAL MAMMOGRAM DOES NOT EXCLUDE THE POSSIBILITY OF BREAST CANCER. A CLINICALLY SUSPICIOUS PALPABLE LUMP SHOULD BE BIOPSIED. Dictated by: Arianne Quintanilla MD on 04/25/2022 at 12:29 Approved by: Arianne Quintanilla MD on 04/25/2022 at 12:32 Normal [facility] Referrals Officeon 3 Referrals Office [phone] [id number] [id number]:[id number] Appointment for 05/14/2022 @ 930 Normal [facility] XR LSPINE 2_3 VIEWSon 2022 XR LSPINE 2_3 VIEWS EXAMINATION: XR LSPINE 2_3 VIEWS HISTORY: Low back pain COMPARISON: No relevant comparison available. FINDINGS: BONES: No acute fracture or spondylolisthesis. Mild to moderate degenerative spondylosis and moderate diffuse facet osteoarthropathy. Bilateral hip osteoarthropathy DISC SPACES: Normal. No significant disc height narrowing, subluxation, or endplate abnormality. PARASPINOUS: Negative. No paraspinous abnormality is seen. OTHER: Thoracic aorta and aortobiiliac endograft is. IMPRESSION: Moderate diffuse degenerative changes Thoracic and aortic aneurysms with endografts Electronically authenticated by: ARIANNE QUINTANILLA Date: 2022-04-16 15:12 Normal [facility] CTA CHEST WO W CONon 022 CTA CHEST WO W CON EXAMINATION: CTA CHEST WO W CON HISTORY: Thoracic aortic aneurysm without rupture ; stent placement 2 weeks ago COMPARISON: CTA chest 07/01/2018 TECHNIQUE: Multi-planar CT images were created with IV contrast. Axial, Coronal, and Sagittal images. Dose reduction techniques were achieved by using automated exposure control and/or adjustment of mA and/or kV according to patient size and/or use of iterative reconstruction technique. 3-D reconstruction was performed on a separate workstation. FINDINGS: VASCULATURE: No pulmonary embolism or abnormal opacity. LUNGS: No visible pulmonary disease. PLEURA: No mass, effusion, or pneumothorax. FILIPE: No mass or adenopathy. MEDIASTINUM: No mass or adenopathy. CARDIAC: Mild cardiomegaly. No pericardial effusion. AORTA: Aneurysmal dilation of the aorta: 3.9 cm diameter at proximal ascending aorta, 5.2 cm at proximal arch, 4.6 cm at descending aorta near diaphragm. Prior endovascular stenting of the mid and distal descending aorta. CHEST WALL: No mass or axillary adenopathy. BONES: No bone lesion or fracture. LIMITED ABDOMEN: No suspicious findings. Limited images of the upper abdomen. OTHER: Negative. IMPRESSION: 1. Aneurysmal dilation of the aorta, greatest involving the proximal arch, 5.2 cm in diameter. 2. Prior endovascular stenting of the mid through distal descending aorta; no appreciable abnormality regarding prior stenting. Electronically authenticated by: ANTOLIN VALLADARES Date: 2021-08-03 10:44 Normal [facility] Operative Reporton 2 Operative Report MR#: [id number] [facility] Pt. Name: Ellen Sánchez Room #: REC 200 05 Discharge 07/13/2021 Date: Birthdate: 1945 OPERATIVE REPORT DATE OF SURGERY: 07/12/2021 SURGEON: Gustavo Badillo MD ANESTHESIA: General anesthesia. PREOPERATIVE DIAGNOSIS: Descending thoracic aortic aneurysmal degeneration. POSTOPERATIVE DIAGNOSIS: Descending thoracic aortic aneurysmal degeneration. PROCEDURES PERFORMED: 1. Percutaneous access and closure of bilateral common femoral arteries. 2. Aortogram. 3. IVUS evaluation of the iliacs and the aorta all the way to abdominal aorta and thoracic aorta. 4. Repair of descending thoracic aneurysmal degeneration using 34 x 150 Valiant [place] thoracic endovascular endograft. INDICATIONS FOR PROCEDURE: This is a pleasant lady, who had previous EVAR to TEVAR, came in for surveillance imaging with degeneration of distal end of the stent with aneurysmal degeneration. We discussed with her different options, elected to proceed with endovascular repair. PROCEDURE IN DETAIL: The patient was taken back to the operating room and placed in supine position. Appropriate cardiopulmonary monitors were set. General anesthesia was induced. Both groins were prepped and draped in the usual sterile surgical fashion along with the chest and the abdomen. We obtained bilateral common femoral artery ultrasound-guided access. Then, we placed ProGlide in the access site in the right. We placed catheter in the descending thoracic aorta. We used an IVUS to evaluate diameters of the seal zones and the iliac access site. We then obtained an aortogram and placed an thoracic endograft. A 34 x 150 Valiant [place] was deployed successfully excluding the aneurysm with excellent radiologic result. At the end, access sites were closed. The right side using ProGlide and the left side using Mynx. The patient tolerated the procedure very well. No complications. All counts were correct. Electronically Signed by: Gustavo Badillo MD 07/26/2021 01:20 P Gustavo Badillo MD Date Dict: 07/25/2021/10:53 A/Gustavo Badillo MD Date Trans: 07/25/2021 11:33 A/mecca [id number] Normal [facility] BASIC METABOLIC PANELon 04-0 Calcium [Mass/Vol] 8.4 mg/dL Low 8.6-10.3 [facility] Comment on above: Order Comment: No: D o not add to previous draw Performed By: #### 1 007, [id number] #### [facility] [address] [place] [address], [facility] Chloride [Moles/Vol] 105 mmol/L Normal 98-107 [facility] Comment on above: Order Comment: No: D o not add to previous draw Performed By: #### 1 007, [id number] #### [facility] [address] [place] [address], [place] CO2 [Moles/Vol] 25 mmol/L Normal 21-31 [facility] Comment on above: Order Comment: No: D o not add to previous draw Performed By: #### 1 69, 76736 #### [facility] [address] [place] [address], [place] Creatinine [Mass/Vol] 0.60 mg/dL Normal 0.60-1.20 [facility] Comment on above: Order Comment: No: D o not add to previous draw Performed By: #### 1 69, 58576 #### [facility] [address] [place] [address], [place] GFR/1.73 sq M.predicted among blacks MDRD (S/P/Bld) [Vol rate/Area] mL/min/{1.73_m2} Normal >60 [facility] Comment on above: Order Comment: No: D o not add to previous draw Result Comment: Calc ulation may not be valid for patients over 70 years Performed By: #### 1 69, 86209 #### [facility] [address] [place] [address], [place] GFR/1.73 sq M.predicted among non-blacks MDRD (S/P/Bld) [Vol rate/Area] mL/min/{1.73_m2} Normal >60 [facility] Comment on above: Order Comment: No: D o not add to previous draw Result Comment: Calc ulation may not be valid for patients over 70 years Performed By: #### 1 69, 24657 #### [facility] [address] [place] [address], [place] Glucose [Mass/Vol] 92 mg/dL Normal 70-100 [facility] Comment on above: Order Comment: No: D o not add to previous draw Performed By: #### 1 69, 39296 #### [facility] [address] [place] [address], [place] Potassium [Moles/Vol] 3.7 mmol/L Normal 3.5-5.1 [facility] Comment on above: Order Comment: No: D o not add to previous draw Performed By: #### 1 0, 36060 #### [facility] [address] [place] [address], [facility] Sodium [Moles/Vol] 138 mmol/L Normal 136-145 [facility] Comment on above: Order Comment: No: D o not add to previous draw Performed By: #### 1 69, 90309 #### [facility] [address] [place] [id number], [facility] Urea nitrogen [Mass/Vol] 11 mg/dL Normal 7-25 [facility] Comment on above: Order Comment: No: D o not add to previous draw Performed By: #### 1 69, 24890 #### [facility] [address] [place] [id number], [facility] CBC COMPLETE BLOOD COUNTon 0 - Erythrocyte distribution width (RBC) [Ratio] 14.5 % Normal 11.5-15.0 [facility] Comment on above: Order Comment: No: D o not add to previous draw Performed By: #### 3 0739 #### [facility] [address] [place] [id number], [facility] Hematocrit (Bld) [Volume fraction] 33.7 % Low 36.0-45.0 [facility] Comment on above: Order Comment: No: D o not add to previous draw Performed By: #### 3 0739 #### [facility] [address] [place] [address], [facility] Hemoglobin (Bld) [Mass/Vol] 11.5 g/dL Low 12.0-15.0 [facility] Comment on above: Order Comment: No: D o not add to previous draw Performed By: #### 3 0739 #### [facility] [address] [place] [address], [place] IMM PLATELET FRAC 3.4 % Normal 0.8-6.3 [facility] Comment on above: Order Comment: No: D o not add to previous draw Performed By: #### 3 0739 #### [facility] [address] [facility]. [address] MCH (RBC) [Entitic mass] 28.7 pg Normal 27.0-33.0 [facility] Comment on above: Order Comment: No: D o not add to previous draw Performed By: #### 3 0739 #### [facility] [address] [facility]. [address] MCHC (RBC) [Mass/Vol] 34.1 g/dL Normal 32.0-35.0 [facility] Comment on above: Order Comment: No: D o not add to previous draw Performed By: #### 3 0739 #### [facility] [address] [facility] [place] [address], [facility] MCV (RBC) [Entitic vol] 84.0 fL Normal 82.0-98.0 [facility] Comment on above: Order Comment: No: D o not add to previous draw Performed By: #### 3 0739 #### [facility] [address] Nucleated RBC/100 WBC (Bld) [Ratio] 0 % Normal 0-0 [facility] Comment on above: Order Comment: No: D o not add to previous draw Performed By: #### 3 0739 #### [facility] [address] [place] [address], [facility] PLAT CNT 91 10*3/uL Low 150-400 [facility] Comment on above: Order Comment: No: D o not add to previous draw Performed By: #### 3 0739 #### [facility] [address] [place] [address], [facility] RBC (Bld) [#/Vol] 4.01 10*6/uL Normal 3.80-5.00 [facility] Comment on above: Order Comment: No: D o not add to previous draw Performed By: #### 3 0739 #### [facility] [address] [place] [address], [facility] WBC (Bld) [#/Vol] 7.44 10*3/uL Normal 4.00-10.60 [facility] Comment on above: Order Comment: No: D o not add to previous draw Performed By: #### 3 0739 #### [facility] [address] [place] [address], [facility] MAGNESIUM BLOODon 07-13-2021 Magnesium [Mass/Vol] 1.8 mg/dL Low 1.9-2.7 [facility] Comment on above: Order Comment: No: D o not add to previous draw Performed By: #### 1 0070, 27082 #### [facility] [address] [place] [address], [facility] ACTIVATED CLOTTING TIMEon ACTIVATED CLOTTING TIME 132 sec Normal 82-152 [facility] Comment on above: Performed By: #### 3 0739 #### [facility] [address] [place] [address], [facility] ACTIVATED CLOTTING TIME 272 sec High 82-152 [facility] Comment on above: Performed By: #### 3 0739 #### [facility] [address] [place] [address], [facility] ACTIVATED CLOTTING TIME 138 sec Normal 82-152 [facility] Comment on above: Performed By: #### 3 0739 #### [facility] [address] [place] [address], [facility] BASIC METABOLIC PANELon Calcium [Mass/Vol] 8.6 mg/dL Normal 8.6-10.3 [facility] Comment on above: Order Comment: No: D o not add to previous draw Performed By: #### 0 0071, 41109 #### [facility] [address] [place] [address], [place] Chloride [Moles/Vol] 105 mmol/L Normal 98-107 [facility] Comment on above: Order Comment: No: D o not add to previous draw Performed By: #### 0 0071, 22608 #### [facility] [address] [place] [address], [place] CO2 [Moles/Vol] 27 mmol/L Normal 21-31 [facility] Comment on above: Order Comment: No: D o not add to previous draw Performed By: #### 0 0071, 66375 #### [facility] [address] [place] [address], [place] Creatinine [Mass/Vol] 0.64 mg/dL Normal 0.60-1.20 [facility] Comment on above: Order Comment: No: D o not add to previous draw Performed By: #### 0 0071, 11873 #### [facility] [address] [place] [address], [place] GFR/1.73 sq M.predicted among blacks MDRD (S/P/Bld) [Vol rate/Area] mL/min/{1.73_m2} Normal >60 [facility] Comment on above: Order Comment: No: D o not add to previous draw Result Comment: Calc ulation may not be valid for patients over 70 years Performed By: #### 0 0071, 49247 #### [facility] [address] [place] [address], [place] GFR/1.73 sq M.predicted among non-blacks MDRD (S/P/Bld) [Vol rate/Area] mL/min/{1.73_m2} Normal >60 [facility] Comment on above: Order Comment: No: D o not add to previous draw Result Comment: Calc ulation may not be valid for patients over 70 years Performed By: #### 0 0071, 13403 #### [facility] [address] [place] [address], [place] Glucose [Mass/Vol] 108 mg/dL High 70-100 [facility] Comment on above: Order Comment: No: D o not add to previous draw Performed By: #### 0 0071, 43313 #### [facility] [address] [place] [address], [facility] Potassium [Moles/Vol] 3.4 mmol/L Low 3.5-5.1 [facility] Comment on above: Order Comment: No: D o not add to previous draw Performed By: #### 0 0071, 87383 #### [facility] [address] [place] [address], [facility] Sodium [Moles/Vol] 139 mmol/L Normal 136-145 [facility] Comment on above: Order Comment: No: D o not add to previous draw Performed By: #### 0 [id number], [id number] #### [facility] [address] Urea nitrogen [Mass/Vol] 15 mg/dL Normal 7-25 [facility] Comment on above: Order Comment: No: D o not add to previous draw Performed By: #### 0 [id number], [id number] #### [facility] [address] [place] [address], [facility] CBC W/DIFFon 07-12-2021 ABS IMM GRANS 0.0 10*3/uL Normal 0.0-0.[address] [facility] Comment on above: Performed By: #### 3 1020 #### [facility] [address] [place] [address], [facility] ABS NEUTROPHILS 3.9 10*3/uL Normal 1.6-7.6 The [facility] Comment on above: Performed By: #### 3 [id number] #### [facility] [address] [place] [address], [facility] Basophils (Bld) [#/Vol] 0.0 10*3/uL Normal 0.0-0.2 [facility] Comment on above: Performed By: #### 3 0739 #### [facility] [address] [place] [address], [facility] Basophils/100 WBC (Bld) 0.2 % Normal 0.0-1.0 T [facility] Comment on above: Performed By: #### 3 0739 #### [facility] [address] [place] [address], [facility] Eosinophils (Bld) [#/Vol] 0.1 10*3/uL Normal 0.0-0.5 [facility] Comment on above: Performed By: #### 3 0739 #### [facility] [address] [place] [id number], [facility] Eosinophils/100 WBC (Bld) 1.8 % Normal 0.0-6.0 [facility] Comment on above: Performed By: #### 3 0739 #### [facility] [address] [place] [address], [facility] Erythrocyte distribution width (RBC) [Ratio] 14.4 % Normal 11.5-15.0 [facility] Comment on above: Performed By: #### 3 0739 #### [facility] [address] [place] [address], [facility] Hematocrit (Bld) [Volume fraction] 36.7 % Normal 36.0-45.0 [facility] Comment on above: Performed By: #### 3 0739 #### [facility] [address] [place] [address], [facility] Hemoglobin (Bld) [Mass/Vol] 12.1 g/dL Normal 12.0-15.0 [facility] Comment on above: Performed By: #### 3 0739 #### [facility] [address] [place] [address], [place] IMM PLATELET FRAC 3.5 % Normal 0.8-6.3 The [facility] Comment on above: Performed By: #### 3 0739 #### [facility] [address] [facility] [place] [address], [facility] IMMATURE GRANS 0.6 % Normal 0.0-1.[address] [facility] Comment on above: Performed By: #### 3 0739 #### [facility] [address] [facility] [place] [address], [facility] Lymphocytes (Bld) [#/Vol] 1.1 10*3/uL Low 1.2-4.0 [facility] Comment on above: Performed By: #### 3 0739 #### [facility] [address] [place] [address], [facility] Lymphocytes/100 WBC (Bld) 19.8 % Low 20.0-45.0 [facility] Comment on above: Performed By: #### 3 0739 #### [facility] [address] [facility] [place] [address], [facility] MCH (RBC) [Entitic mass] 28.5 pg Normal 27.0-33.0 [facility] Comment on above: Performed By: #### 3 0739 #### [facility] [address] [facility] [place] [address], [facility] MCHC (RBC) [Mass/Vol] 33.0 g/dL Normal 32.0-35.0 [facility] Comment on above: Performed By: #### 3 0739 #### [facility] [address] [place] [address], [facility] MCV (RBC) [Entitic vol] 86.6 fL Normal 82.0-98.0 T [facility] Comment on above: Performed By: #### 3 0739 #### [facility] [address] [place] [address], [facility] Monocytes (Bld) [#/Vol] 0.4 10*3/uL Normal 0.1-1.0 [facility] Comment on above: Performed By: #### 3 0739 #### [facility] [address] [place] [address], [facility] MONOS 6.4 % Normal 5.0-12.0 [facility] Comment on above: Performed By: #### 3 0739 #### [facility] [address] [facility] [place] [address], [facility] Neutrophils/100 WBC (Bld) 71.2 % Normal 40.0-72.0 [facility] Comment on above: Performed By: #### 3 0739 #### [facility] [address] [facility] [place] [address], [facility] Nucleated RBC/100 WBC (Bld) [Ratio] 0 % Normal 0-0 [facility] Comment on above: Performed By: #### 3 0739 #### [facility] [address] [facility] [place] [address], [facility] PLAT CNT 96 10*3/uL Low 150-400 [facility] Comment on above: Performed By: #### 3 0739 #### [facility] [address] [facility] [place] [address], [facility] RBC (Bld) [#/Vol] 4.24 10*6/uL Normal 3.80-5.00 The [facility] Comment on above: Performed By: #### 3 0739 #### [facility] [address] [facility] [place] [address], [facility] WBC (Bld) [#/Vol] 5.45 10*3/uL Normal 4.00-10.60 The [facility] Comment on above: Performed By: #### 3 0739 #### [facility] [address] [place] [address], [facility] MAGNESIUM BLOODon 07-12-2021 Magnesium [Mass/Vol] 1.6 mg/dL Low 1.9-2.7 [facility] Comment on above: Order Comment: No: D o not add to previous draw Performed By: #### 0 0071, [id number] #### [facility] [address] [place] [address], [facility] PLATELET FUNCTION SCREENon 0 07-12-2021 COLLAGEN/ADP 87 sec Normal 56-110 The [facility] Comment on above: Order Comment: No: D o not add to previous draw Result Comment: This pattern is usually indicative of drug induced platelet dysfunction, most commonly seen after aspirin ingestion. Review patient chart information for prescription and non-prescription medication. If medication is ruled out, this pattern has also been reported with storage pool deficiency and platelet secretion defects. Platelet aggregation testing and/or platelet electron microscopy may be warranted. Performed By: #### 8 [id number] #### [facility] [address] [place] [address], [facility] COLLAGEN/EPINEPHRINE 218 sec High 82-159 [facility] Comment on above: Order Comment: No: D o not add to previous draw Performed By: #### 8 [id number] #### [facility] [address] [place] [address], [facility] POC GLUCOSE LABon 07-12-2021 Glucose [Mass/Vol] 99 mg/dL Normal 70-100 [facility] Comment on above: Performed By: #### 3 0739 #### [facility] [address] [place] [address], [place] Glucose [Mass/Vol] 103 mg/dL High 70-100 The [facility] Comment on above: Performed By: #### 3 0739 #### [facility] [address] [place] [address], [place] US LILIANA DOP LEG LTon 06-07-19 US LILIANA DOP LEG LT EXAMINATION: US LILIANA DOP LEG LT HISTORY: Localized swelling, mass and lump, lower limb COMPARISON: No relevant comparison available. FINDINGS: REGION: Left leg THROMBI: None. COMPRESSIBILITY: Normal compressibility. FLOW: Normal waveform and antegrade flow between 5 and 20 cm/s. OTHER: Poorly defined heterogeneous area within the subcutaneous fat anterior to the rao which corresponds to patient's palpable lump, 1.5 x 1.1 x 0.8 cm. 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 IMPRESSION: 1. No deep vein thrombus within the left lower extremity. 2. 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 3. Nonspecific anterior rao lesion; subcutaneous hematoma versus poorly defined mass. Ultrasound-guided tissue sampling could be performed if lesion persists. Electronically authenticated by: ANTOLIN VALLADARES Date: 2021-06-06 11:20 Normal [facility] CTA ABDOMEN AND PELVISon CTA ABDOMEN AND PELVIS [facility] Department of Radiology [address] [place] [id number] Patient Name: ELLEN SÁNCHEZ : 1945 Sex: F Age: Race: White Pt. Location: Patient Status: D Ordered Date: 03/09/2021 11:05:00 AM Completed Date: 04/26/2021 10:27 AM Requesting Provider: GUSTAVO BADILLO Attending Provider: GUSTAVO BADILLO Report Copy To: FE BROWN Signs & Symptoms: I71.2 Thoracic aortic aneurysm, without rupture I10 History: Bailey patient will need labs has 2 ct's to schedule same day on 04/26/2021 prior to 11 AM follow up appt Comments: Exam: CTA ABDOMEN AND PELVIS CTA ABDOMEN AND PELVIS 04/26/2021 10:27 AM CLINICAL INDICATIONS: I71.2 Thoracic aortic aneurysm, without rupture I10 TECHNOLOGIST COMMENTS: AAA endo surveillance QUESTION FOR THE RADIOLOGIST: PROTOCOL: Axial CT angiography images were obtained with IV contrast. CONTRAST: 100 mL of Omnipaque 350 intravenously TECHNIQUE: Multidetector CT angiography axial slices of the abdomen and pelvis were obtained with IV contrast. Multiplanar reformats, MIP, and volume rendered 3-D images were generated on a separate workstation and reviewed to further define anatomy and possible pathology. All CT scans at this facility use dose modulation, iterative reconstruction, and/or weight based dosing when appropriate to reduce radiation dose to as low as reasonably achievable. COMPARISON: 04/20/2020 FINDINGS: Patient is status post aorto iliac endograft placement. The overall configuration graft structures is unchanged with no evidence of leak. Thrombus within the distal aorta and right common iliac region is stable. 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 Internal iliac vessels show severe sclerotic irregularity or visualization. There is mild contour irregularity of the proximal abdominal aorta which is unchanged. At least moderate stenosis right renal artery origin is present. There is mild atherosclerotic irregularity of the celiac, SMA, and left renal artery origin without visualized narrowing. The FLORES is poorly visualized No gross hepatic, splenic, pancreatic, adrenal, or biliary abnormalities evident. The patient is postcholecystectomy . Renal cysts are present with no hydronephrosis or gross parenchymal lesion. There is no free intracranial gas or fluid. No dilated bowel loops are present. The density within small bowel loops in the left lower quadrant is likely an ingested pill. A few air-fluid levels are nonspecific. Sigmoid diverticulosis is evident There are degenerative changes in the lumbar spine with no acute osseous abnormality. IMPRESSION: Stable appearance of the abdominal aorta and iliac vessels status post endograft placement with chronic appearing findings as described above Right renal artery stenosis. Electronically signed: Joaquim Mtz. Transcribed by: [email or web address], User Resident: Electronically Signed by: JOAQUIM MTZ @ 04/27/2021 01:22 PM Normal [facility] CTA CHESTon 04-26-2021 CTA CHEST [facility] Department of Radiology [address] [place] [id number] Patient Name: ELLEN SÁNCHEZ : 1945 Sex: F Age: Race: White Pt. Location: 75 Patient Status: D Ordered Date: 03/09/2021 11:05:00 AM Completed Date: 04/26/2021 10:27 AM Requesting Provider: GUSTAVO BADILLO Attending Provider: GUSTAVO BADILLO Report Copy To: FE BROWN Signs & Symptoms: I71.2 Thoracic aortic aneurysm, without rupture I10 History: Bailey patient will need labs has 2 ct's to schedule same day on 04/26/2021 prior to 11 AM follow up appt Comments: Exam: CTA CHEST Clinical History: Follow-up ossicle aortic aneurysm. CTA chest: 04/26/2021 Comparison: 26/07/2018, 04/20/2020, 04/21/2019 Procedure: Axial images were obtained through the chest following 100 mL Omnipaque 350 intravenously. Three-dimensional reconstructions were performed at a separate workstation under concurrent physician supervision. All CT scans at this facility use dose modulation, iterative reconstruction, and/or weight based dosing when appropriate to reduce radiation dose to as low as reasonably achievable. Findings: Thoracic aortic irregularity is again present diffusely with no intramural hematoma or acute lesion. The ascending aorta measures 3.9 x 3.8 cm transversely at the level of the right main pulmonary artery. This is not significantly changed. Measurements of the aorta at the distal arch are 4.2 x 3.6 cm compared with 3.6 x 3.5 cm. Descending thoracic stents are stable in appearance with some mural irregularity but no residual pseudoaneurysm. There is mild coronary artery calcification. No mediastinal mass or adenopathy is present. There is no change in appearance thoracic aortic branches at the arch level. Venous structures opacify normally. There is no mediastinal mass or adenopathy. A small sliding-type hiatal hernia is present. IMPRESSION: Thoracic aortic ectasia with stent placement the distal descending region with no acute complication Mild interval progression of distal aortic arch enlargement with no acute lesion identified. Electronically signed: Joaquim Mtz. Transcribed by: [email or web address], User Resident: Electronically Signed by: JOAQUIM MTZ @ 04/27/2021 12:48 PM Normal [facility] Vital Signs Date Time Vital Sign Value Performing Clinician Facility 10-02-2022 10:45-0400 Body height Beth Moore Other [facility] Other 10-02-2022 10:45-0400 Body mass index (BMI) [Ratio] 26.77 kg/m2 Beth Moore Other [facility] Other 10-02-2022 10:45-0400 Body weight 70.76 kg Bethlyubov Moore Other [facility] Other 09-07-2022 09:30-0400 Body height Fe Brown Other [facility] Other 09-07-2022 09:30-0400 Body mass index (BMI) [Ratio] 26.43 kg/m2 Fe Brown Other [facility] Other 09-07-2022 09:30-0400 Body weight 69.85 kg Fe Brown Other [facility] Other 09-07-2022 09:30-0400 Diastolic blood pressure 87 mm[Hg] Fe Brown Other [facility] [employer] [facility] Other 09-07-2022 09:30-0400 Systolic blood pressure 132 mm[Hg] Fe Brown Other [facility] Other 06-04-2022 10:46-0500 Diastolic blood pressure 87 mm[Hg] Gustavo Badillo [facility] 06-04-2022 10:46-0500 Mean blood pressure 107 mm[Hg] Gustavo Justino [facility] 06-04-2022 10:46-0500 Systolic blood pressure 146 mm[Hg] Gustavo Justino [facility] 06-04-2022 10:32-0500 Blood Pressure Location Gustavo Justino [facility] 06-04-2022 10:32-0500 Diastolic blood pressure 88 mm[Hg] Gustavo Justino [facility] 06-04-2022 10:32-0500 Heart rate 77 /min Gustavo Justino [facility] 06-04-2022 10:32-0500 SaO2% (BldA) [Mass fraction] 98 % Gustavo Justino [facility] 06-04-2022 10:32-0500 Systolic blood pressure 146 mm[Hg] Gustavo Justino [facility] 04-30-2022 17:32-0500 Diastolic blood pressure 96 mm[Hg] MD Fe Brown Work Phone: [facility] 04-30-2022 17:32-0500 Heart rate 85 /min MD Fe Brown Work Phone: [facility] 04-30-2022 17:32-0500 Respiratory rate 16 /min MD Fe Brown Work Phone: [facility] 04-30-2022 17:32-0500 SaO2% (BldA) [Mass fraction] 96 % MD Fe Brown Work Phone: [facility] 04-30-2022 17:32-0500 Systolic blood pressure 147 mm[Hg] MD Fe Brown Work Phone: [facility] 04-30-2022 17:17-0500 Inhaled oxygen flow rate 2 L/min MD Fe Brown Work Phone: [facility] 04-30-2022 14:47-0500 Body mass index (BMI) [Ratio] 27.1 kg/m2 MD Fe Brown Work Phone: [facility] 04-30-2022 14:21-0500 Body height 162.56 cm MD Fe Brown Work Phone: [facility] 04-30-2022 14:21-0500 Body weight 71.66 kg MD Fe Brown Work Phone: [facility] 04-30-2022 12:59-0500 Body temperature 98.3 [degF] MD Fe Brown Work Phone: [facility] 04-10-2022 11:45-0500 Body height Fe Brown Other [facility] Other 04-10-2022 11:45-0500 Body mass index (BMI) [Ratio] 28.15 kg/m2 Fe Brown Other [facility] Other 04-10-2022 11:45-0500 Body weight 74.39 kg Fe Brown Other [facility] Other 04-10-2022 11:45-0500 Diastolic blood pressure 90 mm[Hg] Fe Brown Other [facility] Other 04-10-2022 11:45-0500 SaO2% (BldA) [Mass fraction] 95 % Fe Brown Other [facility] [employer] Other 04-10-2022 11:45-0500 Systolic blood pressure 152 mm[Hg] Fe Stephanie Other [facility] [employer] [facility] Other Encounters Encounter Date Encounter Type Care Provider Facility Start: 02-21-2023 End: 02-21-2023 ambulatory Fe Brown Other [facility] Other Start: 02-21-2023 Telephone [address] Fe Stephanie [facility] Start: 01-14-2023 End: 01-14-2023 ambulatory Fe Brown Other [facility] Other Start: 01-14-2023 Tele[address] Fe Stephanie [facility] Start: 11-27-2022 End: 11-27-2022 ambulatory Beth Moore Other [facility] [employer] [facility] Other Start: 11-27-2022 Office outpatient vi sit 15 minutes Beth Calvey [facility] Start: 10-08-2022 End: 10-08-2022 ambulatory Beth Moore Other [facility] Other Start: 10-08-2022 Telephone encounter Beth Moore [facility] [employer] Start: 10-02-2022 End: 10-02-2022 ambulatory Beth Moore Other [facility] Other Start: 10-02-2022 Office outpatient vi sit 15 minutes Beth Calvey [facility] Start: 09-07-2022 End: 09-07-2022 ambulatory Fe Stephanie Other [facility] [employer] [facility] Other Start: 09-07-2022 Office outpatient vi sit [address] [facility] Start: 08-31-2022 Office outpatient vi sit 15 minutes Beth Calvey [facility] Start: 08-31-2022 End: 08-31-2022 ambulatory Beth R Kenneyey [employer] [facility] Other Start: 08-30-2022 End: 08-31-2022 ambulatory MD Gustavo Bdaillo Facility:[facility] Start: 07-20-2022 Postop follow up vis it related to original px Beth Calvey [facility] Start: 07-20-2022 End: 07-20-2022 ambulatory Beth R Teresa Facility:[facility] Start: 07-20-2022 End: 07-20-2022 ambulatory MD Fe Brown Work Phone: [facility] Work Phone: Start: 07-20-2022 End: 07-20-2022 Patient encounter procedure MD Fe Brown Work Phone: [facility] Start: 06-20-2022 End: 06-20-2022 ambulatory Beth Moore Facility:[facility] Start: 06-20-2022 End: 06-20-2022 Patient encounter procedure MD Fe Brown Work Phone: [facility] Start: 06-20-2022 End: 06-20-2022 ambulatory MD Fe Brown Work Phone: [facility] Work Phone: Start: 06-20-2022 Postop follow up vis it related to original px Beth Calvey [facility] Start: 06-15-2022 End: 06-16-2022 ambulatory MD Gustavo Badillo Facility:[facility] Start: 06-15-2022 End: 06-15-2022 Patient encounter procedure Gustavo Badillo [facility] Start: 06-04-2022 End: 06-05-2022 ambulatory MD Gustavo aBdillo Facility:[facility] Start: 06-04-2022 End: 06-04-2022 Patient encounter procedure Gustavo Badillo [facility] Start: 05-23-2022 End: 05-23-2022 ambulatory Beth R Calvey Facility:[facility] Start: 05-23-2022 End: 05-23-2022 Patient encounter procedure MD Fe Brown Work Phone: [facility] Start: 05-23-2022 End: 05-23-2022 ambulatory MD Fe Brown Work Phone: [facility] Work Phone: Start: 05-23-2022 Postop follow up vis it related to original px Beth Calvey [facility] Start: 05-14-2022 ambulatory BETH CALVEY Facility : Start: 05-09-2022 End: 05-09-2022 ambulatory Beth Calvey Other [facility] Other Start: 05-09-2022 Postop follow up vis it related to original px Beth Calvey [facility] Start: 05-01-2022 End: 05-01-2022 ambulatory Beth Calvey Other [facility] [employer] [facility] Other Start: 05-01-2022 Telephone encounter Beth Calvey [facility] Start: 05-01-2022 Encounter for other preprocedural examination [facility] Start: 05-01-2022 Encounter for preprocedural cardiovascular examination GASTON REDMAN [facility] Start: 05-01-2022 Encounter for preprocedural laboratory examination [facility] Start: 04-30-2022 Encounter for other preprocedural examination BETH MOORE [facility] Start: 04-30-2022 End: 04-30-2022 ambulatory Beth R Calvey Facility:[facility] Start: 04-30-2022 End: 04-30-2022 Admission to same day surgery center MD Fe Brown Work Phone: [facility] Start: 04-30-2022 End: 04-30-2022 ambulatory MD Fe Brown Work Phone: [facility] Work Phone: Start: 04-27-2022 End: 04-28-2022 ambulatory BETH MOORE Facility:[facility] Start: 04-27-2022 End: 04-28-2022 Encounter for other preprocedural examination BETH MOORE Facility:[facility] Start: 04-27-2022 End: 04-27-[address] FE BROWN Facility:[facility] Start: 04-25-2022 End: 04-26-[address] FE BROWN Facility:[facility] Start: 04-23-2022 End: 04-23-2022 ambulatory Fe Brown Other [employer] Other Start: 04-23-[address] [facility] Start: 04-16-2022 End: 04-17-[address] FE BROWN Facility:[facility] Start: 04-10-2022 End: 04-10-2022 ambulatory Fe Brown Other [employer] [facility] Other Start: 04-10-2022 Office outpatient vi sit [address] [facility] Start: 04-10-2022 Patient encounter procedure Fe Brown [facility] Start: 09-15-2021 Adult health examination Tracie Moore Other [employer] Other Start: 08-03-2021 End: 08-04-[address] DOCTOR GOMEZ Facility:[facility] Start: 07-12-2021 End: 07-13-2021 Evaluation and management of inpatient GUSTAVO BADILLO Facility:[facility] Start: 06-06-2021 End: 06-07-[address] FE BROWN Facility:[facility] Procedures Date Procedure Procedure Detail Performing Clinician Start: 07-20-2022 Plain X-ray of right wrist MD Fe Brown Work Phone: Start: 06-20-2022 Plain X-ray of right wrist MD Fe Brown Work Phone: Start: 05-23-2022 Plain X-ray of right wrist MD Fe Brown Work Phone: Start: 04-30-2022 Plain X-ray of right wrist MD Fe Brown Work Phone: Start: 04-30-2022 Open reduction of fr acture with internal fixation MD Fe Brown Work Phone: Start: 02-21-2016 Cataract Extraction with IOL placement - OD Gustavo Badillo Start: 02-09-2016 Screening mammography C panfilo Moore Other Start: 11-28-2012 General examination of patient Beth Moore Other Screening for malign ant neoplasm of breast Beth Moore Other Plan of Treatment Date Care Activity Detail Author Start: 04-30-2022 End: 04-30-2022 [facility] Patient referral [facility] Work Phone: Immunizations Immunization Date Immunization Notes Care Provider Ernesto purdy 01-15-2022 COVID-19 Pfizer (Pediatric) Beth Moore Other [employer] Other 01-15-2022 influenza virus vaccine, split virus (incl. purified surface antigen) Beth Moore Other [employer] [facility] Other 01-15-2022 Prevnar 20 Beth Moore Other [employer] Other 03-09-2021 COVID-19 Vaccine Pfi zer - Documentation Purposes Only Beth Moore Other [employer] Other 01-26-2021 pneumococcal polysaccharide vaccine, 23 valent Beth Moore Other [employer] [facility] Other 05-31-2020 COVID-19 Vaccine Pfi zer - Documentation Purposes Only Beth Moore Other [employer] [facility] Other 05-10-2020 COVID-19 Vaccine Pfi zer - Documentation Purposes Only Beth Moore Other [employer] Other 01-27-2018 influenza virus vaccine, split virus (incl. purified surface antigen) Beth Moore Other [employer] Other 01-27-2018 pneumococcal Conjuga te, unspecified formulation; Translations: [Need for prophylactic vaccination against Streptococcus pneumoniae (pneumococcus)] Beth Moore Other [employer] Other 01-27-2018 pneumococcal polysaccharide vaccine, 23 valent Beth [place] Caseashley Other [employer] Other 02-09-2016 pneumococcal conjuga te vaccine, 13 valent Beth Moore Other [employer] Other 12-22-2015 influenza virus vaccine, split virus (incl. purified surface antigen) Beth Moore Other [employer] Other 01-14-2014 tetanus and diphther ia toxoids, adsorbed, preservative free, for adult use (5 Lf of tetanus toxoid and 2 Lf of diphtheria toxoid) Beth Moore Other [employer] Other 12-18-2012 tetanus and diphther ia toxoids, adsorbed, preservative free, for adult use (5 Lf of tetanus toxoid and 2 Lf of diphtheria toxoid) Beth Moore Other [employer] Other Payers Date Payer Category Payer Unknown [id number] 2022 Self-pay 2022 Unknown [id number] 1959 Medicare [id number] 1959 Unknown [id number] 1945 Unknown [id number] 2.16.840.1.825608.3.579.2.647 1945 Unknown [id number] 2.16.840.1.133749.3.579.2.593 1945 Unknown [id number] 2.16.840.1.019038.3.579.2.593 1945 Unknown [id number] 2.16.840.1.413660.3.579.2.593 1945 Unknown [id number] 2.16.840.1.804629.3.579.2.593 1943 Unknown [id number] 2.16.840.1.415468.3.579.2.593 1945 Unknown [id number] 2.16.840.1.261843.3.579.2.593 1943 Unknown [id number] 2.16.840.1.137702.3.579.2.593 1945 Unknown [id number] 2.16.840.1.371381.3.579.2.727 1945 Unknown [id number] 2.16.840.1.502269.3.579.2.727 1945 Unknown [id number] 2.16.840.1.798859.3.579.2.727 Medicare Medicare Outpatient [id number] Unknown [facility] Life Insurance C o [id number] Unknown [id number] 2.16.840.1.147131.3.579.2.531 Unknown [id number] 2.16.840.1.416968.3.579.2.531 Unknown [id number] 2.16.840.1.586107.3.579.2.531 Unknown [id number] 2.16.840.1.501910.3.579.2.531 Unknown [id number] 2.16.840.1.700878.3.579.2.531 Social History Date Type Detail Facility Start: 04-30-2022 End: 04-30-2022 Tobacco smoking status NHIS Ex-smoker (finding) [facility] Start: 1945 Sex Assigned At Female F [facility] Sex Assigned At [facility] Tobacco smoking status Never Sara [facility] Medical Equipment Procedure Code Equipment Code Equipment Origin al Text Equipment Identifier Dates ORIF, fracture, wrist Orthopaedic fixation plate, non-bioabsorbable, sterile ()[id number] FDA Start: 04-30-2022 ORIF, fracture, wrist Orthopaedic bone screw, non-bioabsorbable, non-sterile ()[id number] FDA Start: 04-30-2022 ORIF, fracture, wrist Orthopaedic bone wire ()[id number] FDA Start: 04-30-2022 ORIF, fracture, wrist Orthopaedic bone screw, non-bioabsorbable, non-sterile ()[id number] FDA Start: 04-30-2022 ORIF, fracture, wrist Orthopaedic bone screw, non-bioabsorbable, non-sterile ()[id number] FDA Start: 04-30-2022 ORIF, fracture, wrist Orthopaedic bone screw, non-bioabsorbable, non-sterile ()[id number] FDA Start: 04-30-2022 ORIF, fracture, wrist Orthopaedic bone screw, non-bioabsorbable, non-sterile ()[id number] FDA Start: 04-30-2022 Goals Date Patient Goal Desired Activity /State Functional Status Date Assessment Result Facility 06-04-2022 Functional Status No [facility] Clinical Notes 04-10-2022 to 11-27-2022 Note Date & Type Note Facility 11-27-2022 Evaluation note Encounter Date Diagnosis Assessment Notes Nov, Other closed extra-articular fracture of distal end of right radius with routine healing, subsequent encounter (ICD-10 - S52.551D) Physical examination was performed today. Patient advise to continue exercising the hand/wrist to help improve strength and motion. Patient can use Tylenol or Voltaren Gel for pain. Nov, Other specified postprocedural states (ICD-10 - Z98.890) Nov, Right carpal tunnel syndrome (ICD-10 - G56.01) Today, we discussed if patient CTS symptoms worsen, then we can consider cortisone injections, or possible carpal tunnel release in the future. [employer] Other 06-27-2023 Evaluation note* Encounter Date Diagnosis Assessment Notes Treatment Notes Treatment Clinical Notes Sep, Other closed extra-articular fracture of distal end of right radius with routine healing, subsequent encounter (ICD-10 - S52.551D) Sep, Other specified postprocedural states (ICD-10 - Z98.890) Patient returns to the office 5 months s/p Open reduction internal fixation Right distal radius fracture (extra-articular). Patient continues to progress and heal routinely. She reports relief from pins and needles sensation after cortisone injection at last office visit. Sensation has improved. She is advised to continue to work on motion and strengthening exercises at home. We will follow up in 8 weeks time. Patient voices understanding and is agreeable to treatment plan. Sep, Right carpal tunnel syndrome (ICD-10 - G56.01) [employer] Other 06-02-2023 Evaluation note* Encounter Date Diagnosis Assessment Notes Treatment Notes Treatment Clinical Notes Sep, Essential (primary) hypertension (ICD-10 - I10) Reviewed BPs today and discussed stressors at length. Continue present medications and followup in 3 months. Overall her BP seems well controlled. Patient will take and record bp at home daily for the next 2 weeks. Patient will be informed of any recommended changes and f/u. If bp consistently >140/90 at home prior to 2 wk f/u, patient is to call office. If symptomatic at home of elevated bp with headache, chest pain, shortness of breath, numbness or tingling or paralysis of any body part, to call office or to ER or call ems as appropriate. Patient with verbal understanding of above. Sep, Allergic reaction to wasp sting (ICD-10 - T63.461A) [employer] Other 05-26-2023 Evaluation note* Encounter Date Diagnosis Assessment Notes Treatment Notes Treatment Clinical Notes August, Other closed extra-articular fracture of distal end of right radius with routine healing, subsequent encounter (ICD-10 - S52.551D) Patient 4 months s/p Open reduction internal fixation Right distal radius fracture (extra-articular). Updated radiographs obtained, reviewed, and discussed in detail with patient. She continues to progress and has healed routinely. I advised to continue with motion and strengthening exercises at home. Patient voices understanding and states no further questions. August, Other specified postprocedural states (ICD-10 - Z98.890) August, Right carpal tunnel syndrome (ICD-10 - G56.01) This appears to be Carpal Tunnel Syndrome. We discussed the cause of this condition and the treatment options. We discussed the use of cortisone injection into the carpal tunnel can be helpful in relieving painful symptoms .We also discussed the use of wearing braces and hand occupational therapy can help with symptoms. We also discussed the option of surgical release which can eliminate the problem. We performed a cortisone injection into the carpal tunnel under sterile technique. The patient tolerated this well without complication. We discussed that the wrist/hand may feel numb and tingle for hours after this injection. We will refer for EMG testing. Patient is agreeable. [employer] Other 04-14-2023 Evaluation note* Encounter Date Diagnosis Assessment Notes Treatment Notes Treatment Clinical Notes Jul, Other closed extra-articular fracture of distal end of right radius with routine healing, subsequent encounter (ICD-10 - S52.551D) Patient instructed on stretching and strengthening exercises as well as scar massage. We discussed cortisone injection to the area to help decrease inflammation. Also discussed oral steroid medication. Instructed to continue therapy once to twice per week. Jul, Other specified postprocedural states (ICD-10 - Z98.890) [employer] Other 03-15-2023 Evaluation note* Encounter Date Diagnosis Assessment Notes Treatment Notes Treatment Clinical Notes Jun, Other closed extra-articular fracture of distal end of right radius with routine healing, subsequent encounter (ICD-10 - S52.551D) X-rays reviewed with patient and today. We discussed the importance of continuing to work on range of motion and strength exercise. Continue working with occupational therapy at this time. Continue with use of edema glove as needed. We discussed she can stop use of wrist brace at this time. Patient informed to begin massaging the scar to help reduce scar tissue. A prescription for Medrol dose pack, along with directions of use. Risks and side effects of this medication was discussed in detail with the patient who voiced understanding. Activity as tolerated. Call with any questions or concerns. Jun, Other specified postprocedural states (ICD-10 - Z98.890) [employer] Other 02-27-2023 Evaluation + Plan note Future Scheduled Tests Radiology* CTA Abdomen and Pelvis 06/04/22 * CTA Chest 06/04/22 [facility]02-15-2023 Evaluation note* Encounter Date Diagnosis Assessment Notes Treatment Notes Treatment Clinical Notes May, Other closed extra-articular fracture of distal end of right radius with routine healing, subsequent encounter (ICD-10 - S52.551D) May, Other specified postprocedural states (ICD-10 - Z98.890) X-rays reviewed with patient and family member today. Patient is progressing well from surgery. We discussed the importance of continuing to work on range of motion and strength exercise. Continue working with therapy at this time. Continue with use of edema glove and soaking as discussed. [employer] Other 02-01-2023 Evaluation note* Encounter Date Diagnosis Assessment Notes Treatment Notes Treatment Clinical Notes May, Other closed extra-articular fracture of distal end of right radius with routine healing, subsequent encounter (ICD-10 - S52.551D) Patient presents to the office 1 week s/p Open reduction internal fixation Right distal radius fracture (extra-articular). Incision site remains clean and dry. There are no signs of erythema or infection present. Incision site was reenforced with steri-strips. There is ecchymosis and edema to the right radius. Patient takes a blood thinner on a regular basis, informed her that that medication can promote easy bruising. We will order formal therapy at this juncture to improve range of motion and strength. Patient may take extra strength Tylenol along with ice and elevation for pain and swelling. We will put patient in a wrist splint today for stability and extra protection. Patient voices understanding and is agreeable to continued treatment plan as dicussed. We will follow up in 2-3 weeks time with radiographs. May, Other specified postprocedural states (ICD-10 - Z98.890) [employer] Other 01-20-2023 NotePROCEDURE: XR WRIST RT MIN 3 V HISTORY: Unspecified fall COMPARISON: None. FINDINGS: BONES:Comminuted fracture across the diametaphyseal junction of the distal radius with posterior displacement one third of the bone width mild dorsal angulation of the distal articular surface. Fracture line extends into the lateral articular surface of the distal radius. Intact radiocarpal joint and intercarpal joints. Marked degenerative changes of the first carpal-metacarpal joint. Separation of the ulnar styloid process from the ulna; chronic versus acute. SOFT TISSUES:Marked soft tissue swelling. EFFUSION:None visible. OTHER: Negative. IMPRESSION: 1. Acute, markedly comminuted fracture of the distal radius at the diametaphyseal junction with dorsal displacement and angulation. 2. Extension fracture into the distal articular surface of the radius. 3. Suspect remote fracture of ulnar styloid process. 4. Marked degenerative changes of the first carpal-metacarpal joint. Electronically authenticated by: ANTOLIN VALLADARES Date: 2022-04-27 08:49[facility]01[facility]03[facility] Evaluation note* Encounter Date Diagnosis Assessment Notes Treatment Notes Treatment Clinical Notes Apr, Lumbar pain (ICD-10 - M54.50) back care Patient encouraged to take Tylenol as directed for pain relief and anti-inflammatory benefits. Use moist heat on the area for pain relief. No heavy lifting or strenuous exercise. Stretching exercises as discussed. Pt instructed to follow up with PCP if symptoms persist despite treatment. Patient should follow up with PCP soon if symptoms worsen. Pt verbalized understanding and agreement with tx plan. Apr, Rectal bleeding (ICD-10 - K62.5) Reviewed how being constipated and having hard bowel movements can make hemorrhoids worse. Encouraged high fiber diet 20-35 grams/day. May use otc metamucil as a fiber supplement. May use otc colace for a stool softener. May soak buttocks in 2 or 3 inches of warm water up to 2 to 3 times a day for 10 to 15 minutes. Do not add soap, bubble bath, or anything to the water. You may use otc wipes or ointments that you rub on your anus to relieve pain, itching, and swelling. Apr, Annual physical exam (ICD-10 - Z00.00) [employer] Other Evaluation noteNo assessment information available [facility] Work Phone: Evaluation noteNo InformationNort Any.DO Other History general Narrative - Reported* Type Description Date Medical History Arthritis Medical History hypertension Surgical History broken wrist 1979 Surgical History hysterectomy 1979 Surgical History D&C 1979 Surgical History left knee Surgical History ORIF right wrist 04/30/22 Hospitalization History see above [employer] Other Hospital course Narrative No data available for this section [facility] Dis[facility] instructions Additional Instructions DR. MOORE'S POST OP INSTRUCTIONS Take prescribed pain medication as directed and as needed to control your post- operative pain. -In addition to the prescribed medication, you may take ibuprofen (Advil, Motrin) or naproxen (Aleve/Naprosyn) to help control pain and decrease swelling. -DO NOT TAKE ibuprofen/Naprosyn/naproxen if you have a history of bleeding ulcer, are taking anticoagulation medication (Coumadin/warfarin, Eliquis, Xarelto, Plavix, Lovenox), if you have had a history of gastric bypass surgery, or if you have a history of kidney disease. Elevate the operative area as much as possible, using at least 2-3 pillows, keeping the hand higher than the elbow. Keep ice at the operative area as much as possible. It takes longer than 20 minutes for the cold to penetrate the bandages, so leave the ice bag or cold pack in place until the ice melts, then it is time to change to a fresh ice bag or cold pack. -Elevation and ice help to lessen the swelling post-operatively which helps to lessen pain so that you will need to take less pain medication, as well as maintaining better range of motion and function of your hand (more swelling, less movement). You may wiggle your fingers, bending, flexing, and move them to decrease stiffness. You may use your hands for light activities of 2-5 lbs. This is lifting your coffee cup, using your silverware, and typing on a computer or tablet. -Do NOT perform strenuous lifting or lift greater than 10 lbs until 6 weeks after surgery to minimize exacerbation of pain at the surgery site. - Patient was counseled on bone healing protocol including smoking cessation/ avoidance of nicotine products, appropriate weight bearing restrictions and limitations, and vitamin supplementation to aid in bone and fracture healing/ strengthening. Patient was counseled to take: 1) Vitamin C 500 mg PO Q daily 2) Calcium 500-600 mg/ Vitamin D 200-400 Units PO Q TID - Patient has sustained an osteoporotic fragility fracture and would benefit from further coordination for bone strengthening medication such as Forteo/ Tymlos in order to improve bony density and quality and decrease risk of future osteoporotic fragility fractures DO NOT REMOVE your bandage; it will be removed and changed at our first office appointment in one week - Keep the bandage covered with a plastic bag or cast cover in the shower - You may loosen the bandage if too tight DO NOT REMOVE your splint; leave your splint in place until your office appointment in one week - Keep your splint covered with a plastic bag or cast cover in the shower - You may loosen the splint if too tight Take antibiotics as directed to decrease risk of infection after surgery [facility] Work Phone: Hospital Discharge instructions No data available for this section [facility] No data available for this section [facility] Summary Purpose Family History Relationship Condition Age at Onset Recorded Date/T becky natural son Diabetes mellitus Unknown Advance Directives Advance Directive Response Recorded Date/ Time Advance Directives No April 27, 2022 5:07pm Advance Directive Response Recorded Date/ Time Advance Directives No April 27, 2022 6:07pm Chief Complaint and Reason for Visit Chief Complaint wrist fx Chief Complaint wrist fx S52.551D Chief Complaint wrist fx S52.551D S52.551D Reason for Referral Reason EMG for RCTS Diagnosis 1 Other closed extra-a rticular fracture of distal end of right radius with routine healing, subsequent encounter (S52.617M) Referral Organization [facility] Referring Provider First Name Beth Referring Provider Last Name Teresa Referring Provider 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 y Referred Organization [facility] Referred Address [address],[id number] Referred Provider Specialty Neurology Referral Priority Routine Additional Source Comments INFORMATION SOURCE (unrecogn ized section and content) DATE CREATED AUTHOR 08/01/2021 [facility] DATE CREATED AUTHOR AUTHOR'S ORGANIZ ATION 05/15/2022 [facility] DATE CREATED AUTHOR AUTHOR'S ORGANIZ ATION 09/15/2022 [facility] DATE CREATED AUTHOR AUTHOR'S ORGANIZ ATION 10/09/2022 [facility] Care Teams (unrecognized sec tion and content) Team Status: Active Member Role Status Dates Fe Brown MD Primary Care Provider Active Team Status: Inactive Member Role Status Dates Fe Brown MD Primary Care Provider Active Beth Moore MD Attending Provider Active REASON FOR VISIT (unrecogniz ed section and content) Check UpXR resultNo Informat ionRecheck Right WristRecheck Right Distal Radius FractureRecheck Right WristRecheck Right WristRecheck Right WristBPReferral updateRecheck Right WristRecheck Right Wristwants antibiotic for dental workUS FOR RECORDS PERTAINING TO PATIENTS WHO ARE OR HAVE BEEN ENROLLED IN A CHEMICAL DEPENDENCY/SUBSTANCEABUSE PROGRAM, SOME INFORMATION MAY BE OMITTED. This clinical summary was aggregated from multiple sources. Caution should be exercised in using it in the provision of clinical care. This summary normalizes information from multiple sources, and as a consequence, information in this document may materially change the coding, format and clinical context of patient data. In addition, data may be omitted in some cases. CLINICAL DECISIONS SHOULD BE BASED ON THE PRIMARY CLINICAL RECORDS. [employer] provides no warranty or guarantee of the accuracy or completeness of information in this document.
[2023-03-31 22:00] VITALS: BP 165/94; PULSE 82; RESP 16; O2SAT 94
[2023-03-31 22:21] LABS: Basophils Percent Auto 0.3 % (0.2-2.0); Eosinophils Absolute Auto 0.1 10^3/uL (0.0-0.7); Eosinophils Percent Auto 1.4 % (0.9-7.0); Hematocrit 35.9 % (36.0-48.0); Hemoglobin 11.8 g/dL (12.0-16.0); Immature Granulocytes Abs Auto 0.03 10^3/uL (0.00-0.03); Immature Granulocytes Pct Auto 0.4 % (0.0-0.5); Lymphocytes Absolute Auto 0.9 10^3/uL (1.2-3.8); Lymphocytes Percent Auto 11.2 % (20.5-60.0); Mean Corpuscular HGB Conc 32.9 g/dL (29.9-35.2); Mean Corpuscular Hemoglobin 28.8 pg (26.7-34.0); Mean Corpuscular Volume 87.6 fL (81.0-99.0); Mean Platelet Volume 10.6 fL (9.5-13.5); Monocytes Absolute Auto 0.5 10^3/uL (0.3-0.8); Monocytes Percent Auto 6.5 % (1.7-12.0); Neutrophils Absolute Auto 6.1 10^3/uL (1.4-6.5); Neutrophils Percent Auto 80.2 % (43.0-75.0); Platelet Count 84 10^3/uL (150-450); Red Cell Distribution Width 15.1 % (11.0-15.0); White Blood Count 7.6 10^3/uL (4.0-11.0)
[2023-03-31 22:22] VITALS: RESP 16; O2SAT 98
[2023-03-31 22:35] LABS: Anion Gap 10.9; BUN Creatinine Ratio 19.8; Calcium 9.6 mg/dL (8.5-10.1); Carbon Dioxide 29.8 mmol/L (21.0-32.0); Chloride 101 mmol/L (98-107); Estimated GFR (African America >60 (>=60); Estimated GFR (Non-African Ame >60 (>=60); Glucose 96 mg/dL (74-106); Potassium 3.7 mmol/L (3.5-5.1); Sodium 138 mmol/L (136-145); Troponin I High Sensitivity 8.1 pg/mL (4.0-51.3)
[2023-03-31] MEDS: NICARDIPINE IN NACL, ISO-OSM 40 MG/200 ML PIGGYBACK 25 MG IV (22:57)
[2023-03-31 23:00] VITALS: BP 160/95; PULSE 88; RESP 20; O2SAT 95
[2023-03-31 23:35] VITALS: BP 134/81; PULSE 89; RESP 16; O2SAT 91
[2023-04-01 00:52] VITALS: BP 129/85; PULSE 90; RESP 16; O2SAT 92
--- NOTE | 2023-04-01 01:02 | PC.NURSE ---
More difficult time answering questions. Right arm weaker then on admission. Right leg also weaker. Able to answer correctly but slow to answer.
[2023-04-01 01:28] VITALS: BP 143/92; PULSE 92; RESP 16; O2SAT 92
[2023-04-01 02:05] VITALS: BP 140/100; PULSE 96; RESP 20; O2SAT 95
--- NOTE | 2023-04-01 02:07 | PC.NURSE ---
Dr aware of B/P no orders received.
--- NOTE | 2023-04-01 02:41 | PC.NURSE ---
Daniel called to Maury claire [facility] [phone]
== END 2023-04-01 02:50 | disposition short-term general hospital (02) ==
PROVIDERS: Emergency Provider Internal Medicine; PCP Family Medicine
DX: I62.9 Nontraumatic intracranial hemorrhage, unspecified (principal); G81.91 Hemiplegia, unspecified affecting right dominant side; Z79.82 Long term (current) use of aspirin; Z79.899 Other long term (current) drug therapy; F17.200 Nicotine dependence, unspecified, uncomplicated
CPT/HCPCS: 36415; 70450; 71045; 80048; 84484; 85025; 93005; 99285

== ENCOUNTER 2023-04-28 13:22 | Emergency (ER) | payer MEDICARE, OTHER, SELFPAY ==
[2023-04-28] VITALS (14 sets, daily range): BP systolic 83–103; BP diastolic 46–73; PULSE 75–86; RESP 22–40; O2SAT 93–97; BMI 25.0
--- NOTE | 2023-04-28 13:32 | XR_ITS ---
The [address] [address] Patient Name: SMITHA CHAN MRN: [id number] date: 1945 Sex: F Assigned Patient Location: ER Current Patient Location: ER Accession/Order Number: [id number] Exam Date: 04/28/2023 13:50 Report Date: 04/28/2023 14:43 At the request of: MELVIN JOHNSON Procedure: XR chest 1V EXAM: XR chest 1V INDICATION: SOB, fever. COMPARISON: Chest radiograph 03/31/2023. TECHNIQUE: Single frontal view of the chest FINDINGS: Stable cardiomediastinal contours with aneurysmal dilation of the aortic arch. Descending aorta endovascular stent in place. Calcified mediastinal lymph nodes. No focal consolidation. No pleural effusion or pneumothorax. No acute osseous abnormality. XR/XR chest 1V IMPRESSION: Stable chest. No acute process. Electronically authenticated by: PADMINI LE Date: 04/28/2023 14:43
--- NOTE | 2023-04-28 13:32 | ECG_ITS ---
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
--- NOTE | 2023-04-28 13:34 | ED_ITS ---
HPI - General Adult General Chief complaint: Upper Respiratory Infection Stated complaint: shortness of breath Time Seen by Provider: 04/28/23 13:24 Source: caregiver and EMR Mode of arrival: ambulance Limitations: altered mental status History of Present Illness HPI narrative: 78-year-old female presents for difficulty breathing. No history is obtainable from the patient, she is nonverbal. 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 Most of the history is obtained from the paramedics and [facility]. She was found to have tachypnea and upon arrival here she was found to have a temperature of 100.1 rectally. Related Data Home Medications Medication Instructions Recorded Confirmed aspirin 81 mg capsule 81 mg PO DAILY 03/31/23 04/28/23 cetirizine 10 mg tablet (Zyrtec) 10 mg PO DAILY PRN allergy symptoms 03/31/23 04/28/23 hydrochlorothiazide 25 mg tablet 25 mg PO DAILY 03/31/23 04/28/23 niacin 500 mg tablet,extended 500 mg PO DAILY 03/31/23 03/31/23 release (Endur-Acin) pantoprazole 40 mg tablet,delayed 40 mg PO DAILY 03/31/23 04/28/23 release potassium chloride 10 mEq 20 meq PO DAILY 03/31/23 04/28/23 tablet,extended release amlodipine 10 mg tablet 10 mg PO QDAY 04/28/23 04/28/23 carvedilol 25 mg tablet 25 mg PO BID 04/28/23 04/28/23 lisinopril 40 mg tablet 40 mg PO BID 04/28/23 04/28/23 Allergies Allergy/AdvReac Type Severity Reaction Status Date / Time acetaminophen [From Percocet] Allergy Unknown Verified 03/31/23 22:00 oxycodone [From Percocet] Allergy Unknown Verified 03/31/23 22:00 bacitracin Allergy Blister Verified 03/31/23 22:00 [From Neosporin ([id number])] neomycin Allergy Blister Verified 03/31/23 22:00 [From Neosporin ([id number])] polymyxin B Allergy Blister Verified 03/31/23 22:00 [From Neosporin ([id number])] ciprofloxacin [From Cipro] AdvReac Headache Verified 03/31/23 22:00 Review of Systems ROS Narrative not obtainable, nonverbal PFSH PFSH Social History Smoking status: Current every day smoker Exam Narrative Exam Narrative: Nurses note and vital signs reviewed and patient is not hypoxic. General: The patient appears in no apparent distress. Patient is resting comfortably on cart. Skin: Warm, dry, no pallor noted. There is no rash noted. Head: Normocephalic, atraumatic Eye: Normal conjunctiva, no drainage Ears, Nose, Mouth, and Throat: oral mucosa is moist. Nares patent. Cardiovascular: Regular Rate and Rhythm, not tachycardic Respiratory: Patient is in no distress, no accessory muscle use, lungs are clear to auscultation, no wheezing, rales or rhonchi Back: non-tender GI: nontender Musculoskeletal: The patient has no evidence of calf tenderness, no pitting edema, symmetrical pulses noted bilaterally Neurological: nonverbal Psychiatric: and cannot be tested Constitutional Vital Signs, click to edit/add: Last Vital Signs Pulse 79 04/28/23 15:00 Resp 32 H 04/28/23 15:00 BP 96/67 04/28/23 15:00 Pulse Ox 95 04/28/23 14:45 O2 Del Method Room Air 04/28/23 13:24 Course Vital Signs Vital signs: Vital Signs Pulse Rate 79 04/28/23 13:24 Respiratory Rate 22 04/28/23 13:24 Blood Pressure 103/68 04/28/23 13:24 Pulse Oximetry 96 04/28/23 13:24 Oxygen Delivery Method Room Air 04/28/23 13:24 Pulse Rate 79 04/28/23 15:00 Respiratory Rate 32 H 04/28/23 15:00 Blood Pressure 96/67 04/28/23 15:00 Pulse Oximetry 95 04/28/23 14:45 Oxygen Delivery Method Room Air 04/28/23 13:24 Medical Decision Making [facility] Narrative Medical decision making narrative: upon arrival the patient seemed to have thick secretions in her throat and these were suctioned out by the nursing staff and this change the patient's status dramatically. She is back to breathing in an apparently comfortable manner. Her respiratory rate has returned back to normal and her O2 saturations are one hundred percent. Her workup here as well as negative including the chest x-ray. Cold and flu tests are negative. My clinical impression is that she was having these respiratory issues due to the secretions and this was discussed thoroughly with the patient's family including her boyfriend and grandson. I also had the opportunity to speak to her granddaughter, PORey, Roula Alexis, by phone and have updated her on her grandmother's condition and discharged back to [facility]. I've no clinical suspicion of further intracranial hemorrhage. Differential Diagnosis Differential Diagnosis: pneumonia, Covid, influenza Lab Data Lab results reviewed: Yes I reviewed the patient's lab results Labs: Lab Results 04/28/23 04/28/23 Range/Units 13:56 14:05 WBC 7.9 (4.0-11.0) 10^3/uL RBC 3.87 L (4.20-5.40) 10^6/uL Hgb 11.1 L (12.0-16.0) g/dL Hct 33.7 L (36.0-48.0) % MCV 87.1 (81.0-99.0) fL MCH 28.7 (26.7-34.0) pg MCHC 32.9 (29.9-35.2) g/dL RDW 14.8 (11.0-15.0) % Plt Count 86 L (150-450) 10^3/uL MPV 11.0 (9.5-13.5) fL Neut % (Auto) 78.9 H (43.0-75.0) % Lymph % (Auto) 8.7 L (20.5-60.0) % [place] % (Auto) 9.4 (1.7-12.0) % Eos % (Auto) 2.1 (0.9-7.0) % Baso % (Auto) 0.3 (0.2-2.0) % Neut # (Auto) 6.3 (1.4-6.5) 10^3/uL Lymph # (Auto) 0.7 L (1.2-3.8) 10^3/uL [place] # (Auto) 0.8 (0.3-0.8) 10^3/uL Eos # (Auto) 0.2 (0.0-0.7) 10^3/uL Baso # (Auto) 0.0 (0.0-0.1) 10^3/uL Abs Immat Gran (auto) 0.05 H (0.00-0.03) 10^3/uL Imm/Tot Granulo (auto) 0.6 H (0.0-0.5) % Sodium 138 (136-145) mmol/L Potassium 5.0 (3.5-5.1) mmol/L Chloride 102 (98-107) mmol/L Carbon Dioxide 28.2 (21.0-32.0) mmol/L Anion Gap 12.8 BUN 42.0 H (7.0-18.0) mg/dL Creatinine 0.88 (0.55-1.02) mg/dL Est GFR ( Amer) >60 (>=60) Est GFR (Non-Af Amer) >60 (>=60) BUN/Creatinine Ratio 47.7 Glucose 121 H (74-106) mg/dL Calcium 9.2 (8.5-10.1) mg/dL Influenza Type A Ag Negative Influenza Type B Ag Negative SARS-CoV-2 Ag (CV2AG) Negative (NEGATIVE) Imaging Data Chest x-ray: Radiologist's impression: ITS Impressions Chest X-Ray 04/28/23 13:32 IMPRESSION: Stable chest. No acute process. Electronically authenticated by: PADMINI LE Date: 04/28/2023 14:43 Discharge Plan Discharge Chief Complaint: Upper Respiratory Infection Clinical Impression: Dyspnea Patient Disposition: Home, Self-Care Time of Disposition Decision: 15:29 Condition: Good Mode of Transportation: EMS Prescriptions / Home Meds: No Action hydrochlorothiazide 25 mg tablet 25 mg PO DAILY pantoprazole 40 mg tablet,delayed release (DR/EC) 40 mg PO DAILY potassium chloride 10 mEq tablet extended release 20 meq PO DAILY niacin [Endur-Acin] 500 mg tablet extended release 500 mg PO DAILY aspirin 81 mg capsule 81 mg PO DAILY cetirizine [Zyrtec] 10 mg tablet 10 mg PO DAILY PRN (Reason: allergy symptoms) amlodipine 10 mg tablet 10 mg PO QDAY carvedilol 25 mg tablet 25 mg PO BID lisinopril 40 mg tablet 40 mg PO BID Instructions: Dyspnea (ED) Stand Alone Forms: Portal Instructions Referrals: Fe Malloy MD [Primary Care Provider] - 1 week
--- OUTSIDE RECORDS SUMMARY | 2023-04-28 13:34 | XMS_ITS | CCD ---
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 Name Role Phone LEON BADILLO Attending Unavailable LEON BADILLO Admitting Unavailable NITHYA BROWN Referring Unavailable NITHYA BROWN Primary Care Unavailable MD Nithya Brown Primary Care Provider [phone] MD Kate Mane Attending Provider [phone] DR NITHYA BROWN Primary Care Unavailable GASTON REDMAN Admitting Unavailable GASTON REDMAN Attending Unavailable BLAINE, DR ANTOLIN Musa Consulting Unavailable MARIFERCARO PIERRE Consulting Unavailable GASTON REDMAN Consulting Unavailable KATE MANE Admitting Unavailable KATE MANE Attending Unavailable MELLISSA, DR NITHYA Merida Primary Care Unavailable MELLISSA, DR NITHYA Merida Admitting Unavailable BROWN, DR NITHYA Merida Attending Unavailable BROWN, DR NITHYA Merida Primary Care Unavailable ZIEBMARK, DR ANTOLIN Musa Consulting Unavailable MELLISSA, DR NITHYA Merida Consulting Unavailable MISC, DR MCKINLEY Admitting Unavailable MISC, DR MCKINLEY Attending Unavailable MELLISSA, DR NITHYA Merida Primary Care Unavailable MISC, DR MCKINLEY Consulting Unavailable ZIEBMARK, DR ANTOLIN Musa Consulting Unavailable MELLISSA, DR NITHYA Merida Admitting Unavailable BROWN, DR NITHYA Merida Attending Unavailable MELLISSA, DR NITHYA Merida Primary Care Unavailable SOCORRO, DR ARIANNE Sanz Consulting Unavailable MELLISSA, DR NITHYA Merida Consulting Unavailable MELLISSA, DR NITHYA Merida Admitting Unavailable BROWN, DR NITHYA Merida Attending Unavailable MELLISSA, DR NITHYA Merida Primary Care Unavailable WEST, DR ARIANNE Sanz Consulting Unavailable MELLISSA, DR NITHYA Merida Consulting Unavailable KATE MANE Admitting Unavailable KATE MANE Attending Unavailable MELLISSA, DR NITHYA Merida Primary Care Unavailable KATE MANE Consulting Unavailable Nithya Brown Unavailable NITHYA BROWN Primary Care Physician AldaNayely Unavailable Unavailable Teresa Kate Unavailable MD Nithya Brown Primary Care Provider MD Kate Mane Attending Provider MD Leon Badillo Admitting Unavailable MD Leon Badillo Attending Unavailable NONE, XXXX Referring Unavailable MD Leon Badillo Attending Unavailable NONE, XXXX Referring Unavailable MD Leon Badillo Admitting Unavailable MD Leon Badillo Admitting Unavailable MD Leon Badillo Attending Unavailable MD Leon Badillo Referring Unavailable Calvey, Kate R Admitting Unavailable Kate Mane R Attending Unavailable Nithya Brown Primary Care Unavailable Teresa, Kate R Admitting Unavailable Kate Mane R Attending Unavailable Nithya Brown Primary Care Unavailable Kate Mane R Admitting Unavailable Kate Mane Attending Unavailable Nithya Brown Primary Care Unavailable Kate Mane Attending Unavailable Tracie Maneen R Admitting Unavailable Nithya Brown Primary Care Unavailable Kate Mane Attending Unavailable Tracie Maneen R Admitting Unavailable Nithya Brown Primary Care Unavailable NITHYA BROWN Referring Unavailable NITHYA BROWN Primary Care Unavailable NITHYA BROWN Referring Unavailable NITHYA BROWN Primary Care Unavailable Nithya Brown MD Primary Care Provider Nithya Brown MD Primary Care Provider NATALIE KRUEGERED F Admitting Unavailable WILLARD KRUEGER Attending Unavailable JACK FAJARDO Referring Unavailable NITHYA BROWN Primary Care Unavailable DULCE AGARWAL Consulting Unavailable CHRISTINA FREITAS Consulting Unavailable JAZMINE NUNEZ Consulting Unavailable (TTH ONLY), SURGERY B Consulting UnavailMICHELE Lopez Consulting Unavailable AGATHA EDEN Consulting Unavailable KISHORE NEFF Consulting Unavailab RY Crow Referring Unavailable NITHYA BROWN Primary Care Unavailable ALEIDA SCHULTZ Referring Unavailable NITHYA BROWN Primary Care Unavailable JORDAN HASSAN Referring Unavailable NITHYA BROWN Primary Care Unavailable GOPAL MAYS Referring Unavailable BROWN, NITHYA E Primary Care Unavailable GHARAIBEH, KHALED Referring Unavailable BROWN, NITHYA E Primary Care Unavailable GHARAIBEH, KHALED Referring Unavailable BROWN, NITHYA E Primary Care Unavailable ALI, AIZAZ Referring Unavailable BROWN, NITHYA E Primary Care Unavailable GHARAIBEH, KHALED Referring Unavailable BROWN, NITHYA E Primary Care Unavailable ALI, MOHAN Referring Unavailable BROWN, NITHYA E Primary Care Unavailable ALI, AIZAZ Referring Unavailable BROWN, NITHYA E Primary Care Unavailable ALI, AIZAZ Referring Unavailable BROWN, NITHYA E Primary Care Unavailable JORDAN HASSAN Referring Unavailable BROWN, NITHYA E Primary Care Unavailable ALI, MOHAN Referring Unavailable BROWN, NITHYA E Primary Care Unavailable ALI, MOHAN Referring Unavailable BROWN, NITHYA E Primary Care Unavailable ARTEMIO RAY Referring Unavailabl e BROWN, NITHYA E Primary Care Unavailable CHRISTINA FREITAS Attending Unavailable CHRISTINA FREITAS Referring Unavailable BROWN, NITHYA E Primary Care Unavailable ARTEMIO RAY Referring Unavailabl e BROWN, NITHYA E Primary Care Unavailable JANET MCALLISTER Referring Unavailable BROWN, NITHYA E Primary Care Unavailable BRANDON GOODEN Referring Unavailable BROWN, NITHYA E Primary Care Unavailable BRANDON GOODEN Referring Unavailable BROWN, NITHYA E Primary Care Unavailable ZAY CHAPA Referring Unavailable BROWN, NITHYA E Primary Care Unavailable ARTEMIO RAY Referring Unavailabl e BROWN, NITHYA E Primary Care Unavailable MAI HO Referring Unavailable BROWN, NIHTYA E Primary Care Unavailable CHEN LLOYD Referring Unavailable BROWN, NITHYA E Primary Care Unavailable HASEEB MCNAMARA Referring Unavailable BROWN, NITHYA E Primary Care Unavailable DAE BO Attending Unavailable DAE BO Referring Unavailable BROWN, NITHYA E Primary Care Unavailable WON WEBSTER Attending Unavailable BROWN, NITHYA E Primary Care Unavailable OKSANA BAL Referring Unavai lable BROWN, NITHYA E Primary Care Unavailable WILLARD KRUEGER Referring Unavailable BROWN, NITHYA E Primary Care Unavailable Allergies Allergy Classification Reported Allergen(s) Allergy Type Date of Onset Reaction(s) Facility (2 sources) Acetaminophen / oxyCODONE Drug Allergy 08-19-19 15 [facility] Rep[facility] (2 sources) Alendronate Drug Allergy 08-19-19 15 [facility] Repository (2 sources) Bacitracin / Neomycin / Polymyxin B Drug Allergy 04-10-19 15 [facility] Repository (4 sources) Bee/Wasp/Ant venom; Translations: [bee stings] Propensity to adverse reactions (disorder) 07-02-19 19 Edema [facility] Repository (2 sources) Ciprofloxacin Drug Allergy 08-19-19 15 [facility] Rep[facility] (2 sources) nickel; Translations: [nickel] Drug Allergy 08-19-19 15 [facility] Repository (1 source) oxyCODONE Drug Allergy 07-04-19 22 [facility] Rep[facility] (15 sources) Bacitracin; Translations: [Bacitracin] Drug Allergy 11-29-19 13 Rash, Unknown [facility] (20 sources) Ciprofloxacin; Translations: [ciprofloxacin] Drug Allergy 08-18-19 15 Headache [facility] (8 sources) Neomycin; Translations: [Neomycin] Drug Allergy 04-30-19 23 Rash, Unknown [facility] (5 sources) polymyxin B; Translations: [polymyxin B] Allergy to substance 04-30-19 23 Rash [facility] (5 sources) venom-wasp; Translations: [venom-wasp] Allergy to substance 04-30-19 Anaphylaxis [facility] (1 source) bee venom Drug allergy (disorder) 08-19-19 15 [facility] Repository (9 sources) Acetaminophen / oxyCODONE; Translations: [acetaminophen-ox ycodone] Drug Allergy 08-18-19 15 Unknown [facility] (11 sources) Alendronate; Translations: [alendronate] Drug Allergy 11-29-19 13 Unknown, Comment:Freete xt Needs Updated. [facility] (5 sources) bacitracin / neomycin / polymyxin b; Translations: [bacitracin/neomy joaquin/polymyxin B topical] Drug Allergy 05-11-19 20 Blisters [facility] (13 sources) oxyCODONE; Translations: [oxycodone] Drug Allergy 11-01-19 19 Headache [facility] (6 sources) Substance with penicillin structure and antibacterial mechanism of action (substance) Drug allergy 11-29-19 13 Unknown [facility] Other (6 sources) Bee Sting Drug allergy 11-29-19 13 Unknown [facility] Other (6 sources) Neosporin + Pain Relief Max [facility] *DERMATOLOGICALS* Propensity to adverse reactions 11-29-19 13 Unknown [facility] Other (6 sources) Allergies Reconciled Propensity to adverse reactions Unknown [facility] Other (6 sources) patient allergy list reviewed by nurse or physicia Propensity to adverse reactions 11-29-19 13 Comment:Done [facility] Other (4 sources) BEE VENOM PROTEIN (HONEY BEE); Translations: [BEE VENOM PROTEIN (HONEY BEE)] Propensity to adverse reactions to drug (disorder) 05-26-19 [facility] Repository (2 sources) NEOMYCIN-BACITRAC NZN-POLYMYXNB; Translations: [NEOMYCIN-BACITRA CNZN-POLYMYXNB] Propensity to adverse reactions to drug (disorder) 05-11-19 [facility] Repository (2 sources) Alendronate Drug Allergy 05-11-19 [facility] Medications Current Medications Medication Drug Class(es) Dates [...] O Q6H April 30, 2022 1:00am amLODIPine 10 mg oral tablet (20 sources) Dihydropyridine Calcium Channel Yoselin Start: 04-03-2023 End: 04-16-2024 take 1 tablet by mouth in the morning amLODIPine (NORVASC) 10 mg tablet Take 1 tablet (10 mg total) by mouth in the morning. 90 tablet 3 04/17/2023 04/16/2024 Active Start: 04-02-2023 End: 04-02-2023 5 mg, nasogastric, Daily, Fi rst dose on Sat04/02/23 at 0900, Maintain SBP between 110-140. Look-alike/sound-alike medication - verify indication for use. Avoid grapefruit juice. Start: 05-04-2019 End: 04-17-2023 take 5 mg by mouth once daily [...] aspirin 81 mg delayed release oral tablet (15 sources) Platelet Aggregation Inhibitor, Nonsteroidal Anti-inflammatory Drug [...] 1 tablet Orally Once a day Active carvedilol 25 mg oral tablet (9 sources) alpha-Adrenergic Yoselin, beta-Adrenergic Yoselin Start: 04-13-2023 End: 04-15-2024 take 1 tablet by mouth in the morning, then take 1 tablet by mouth at bedtime carvediloL (COREG) 25 mg tablet Take 1 tablet (25 mg total) by mouth in the morning and 1 tablet (25 mg total) before bedtime. 180 tablet 3 04/16/2023 04/15/2024 Active Start: 04-04-2023 End: 04-13-2023 12.5 mg, nasogastric, 2 time s daily, First dose (after last modification) on Sat04/04/23 at 2100, Hold for SBP <100 and/or HR <60. Give with meal or snack. Look-alike/sound-alike medication - verify indication for use. Start: 04-03-2023 End: 04-04-2023 6.25 mg, nasogastric, 2 time s daily, First dose on Sat04/03/23 at 0900, Hold for SBP <100 and/or HR <60. Give with meal or snack. Look-alike/sound-alike medication - verify indication for use. Zyrtec (16 sources) Histamine-1 Receptor Antagonist Start: 06-04-2022 Zyrtec Refills(s) 0 Start Date: 06/04/22 Status: Ordered take 1 tablet by melly once daily as needed ZyrTEC Allergy 10 MG 1 tablet as needed Orally Once a day for 30 day(s) Active Colace (3 sources) Start: 06-04-2022 Colace Refills (s) 0 Start Date: 06/04/22 Status: Ordered End: 04-17-2023 doxycycline hyclate 100 mg oral tablet (4 sources) Tetracycline-class Drug Start: 04-30-2022 take 100 mg by mouth twice daily Doxycycline Hyclate Active 100 MG PO Twice daily 10 April 30, 2022 1:00am [id number] 0.3 ml EPINEPHrine 1 mg/ml auto-injector (6 sources) alpha-Adrenergic Agonist, beta-Adrenergic Agonist, Catecholamine Start: 09-07-2022 EpiPen 2-Jarrod 0.3 MG/0.3ML as directed Injection prn for 1 days Sep, Active hydroCHLOROthiazide 25 mg oral tablet (20 sources) Thiazide Diuretic Start: 02-20-2016 take 1 tablet by mouth once daily hydroCHLOROthiazide (HYDRODIURIL) 25 mg tablet Take 1 tablet (25 mg total) by mouth daily. 0 03/17/2019 Active hydroCHLOROthiaz kenji Active lisinopril 40 mg oral tablet (9 sources) Angiotensin Converting Enzyme Inhibitor Start: 04-16-2023 End: 04-15-2024 take 1 tablet by mouth in the morning, then take 1 tablet by mouth at bedtime lisinopriL (PRINIVIL,ZESTRIL) 40 mg tablet Take 1 tablet (40 mg total) by mouth in the morning and 1 tablet (40 mg total) before bedtime. 180 tablet 3 04/16/2023 04/15/2024 Active Start: 04-15-2023 End: 04-17-2023 40 mg, nasogastric, 2 times daily, First dose (after last modification) on Sat04/15/23 at 0900, Hold for SBP <110 and contact provider. Look-alike/sound-alike medication - verify indication for use. Start: 04-14-2023 End: 04-15-2023 40 mg, nasogastric, Daily, F irst dose (after last modification) on Sat04/14/23 at 0900, Hold for SBP <110 and contact provider. Look-alike/sound-alike medication - verify indication for use. Start: 04-05-2023 End: 04-14-2023 20 mg, nasogastric, Daily, F irst dose on Sat04/05/23 at 1000, Hold for SBP <110 and contact provider. Look-alike/sound-alike medication - verify indication for use. Niacin (3 sources) Nicotinic Acid Start: 06-04-2022 niacin 500 mg ER Tab Refills(s) 0 Start Date: 06/04/22 Status: Ordered End: 04-17-2023 pantoprazole 40 mg delayed release oral tablet (20 sources) Proton Pump Inhibitor Start: 04-30-2022 take 1 tablet by mouth once daily before breakfast pantoprazole (PROTONIX) 40 mg EC tablet Take 1 tablet (40 mg total) by mouth every morning before breakfast. 0 06/04/2022 Active Pantoprazole Sod ium Active potassium chloride 10 meq extended release oral tablet (20 sources) Start: 02-05-2023 take 2 tablets by mouth in the morning potassium chloride (K-TAB,KLOR-CON) 10 MEQ CR tablet Take 2 tablets (20 mEq total) by mouth in the morning and 2 tablets (20 mEq total) before bedtime. 0 02/05/2023 Active Start: 04-30-2022 Start: 09-15-2019 take 2 capsules by m outh once daily potassium chloride 10 mEq Cap-ER 20 mEq = 2 cap(s), Oral, Daily, Refills(s) 0 Start Date: 09/15/19 Status: Ordered take 1 dose by mouth four times daily potassium chloride (KLOR-CON) 20 mEq packet Klor-Con 20 mEq oral packet Take 1 packet 4 times a day by oral route. 0 Active Potassium Chlori de Active raNITIdine 75 mg oral tablet (2 sources) Histamine-2 Receptor Antagonist Start: 02-20-2016 take 75 mg by mouth once daily as needed ranitidine 75 mg, Oral, Daily, PRN Indigestion, takes when taking AQleve, Refills(s) 0 Start Date: 02/20/16 Status: Ordered Stool Softener (14 sources) Stool Softener Active Completed/Discontinued Medications Medication Drug Class(es) Dates Sig (Normalized) Sig (Original) acetaminophen 32 mg/ml oral solution (2 sources) Start: 04-03-2023 End: 04-17-2023 take 650 mg nasogastric route every six hours as needed for pain and fever and headache 650 mg, nasogastric, Every 6 hours PRN, mild pain - pain scale 1-3, temperature greater than 38 C, headaches, Starting on Sat04/03/23 at 0833 Start: 04-02-2023 End: 04-03-2023 take 1000 mg intravenously every six hours 1,000 mg, intravenous, at 400 mL/hr, Administer over 15 Minutes, Every 6 hours, First dose on Sat04/02/23 at 0815, For 24 hours albuterol 0.833 mg/ml / ipratropium bromide 0.167 mg/ml inhalation solution (5 sources) Anticholinergic, beta2-Adrenergic Agonist Start: 04-04-2023 End: 04-10-2023 3 mL, nebulization, Every 6 hours while awake, First dose (after last modification) on Sat04/09/23 at 0800, Implement INPATIENT/ED Bronchodilator Clinical Practice Guidelines? Yes, Document: \[email or web address]\epic\EPIC_Reference\Orders\Re spiratory Care Guidelines\CPG Bronchodilator 2020.pdf Start: 04-04-2023 End: 04-17-2023 take 3 mL by inhalation every four hours as needed for wheezing 3 mL, nebulization, Every 4 hours PRN, wheezing, Starting on Sat04/04/23 at 0852, Implement INPATIENT/ED Bronchodilator Clinical Practice Guidelines? Yes, Document: \[email or web address]\epic\EPIC_Reference\Orde rs\Respiratory Care Guidelines\CPG Bronchodilator 2020.pdf bisacodyl 10 mg rectal suppository (1 source) Stimulant Laxative Start: 04-05-2023 End: 04-17-2023 10 mg, rectal, Every 3 days, First dose on Sat04/05/23 at 0900, Start at 0900 on day 2. Look-alike/sound-alike medication - verify indication for use. calcium chloride 0.0014 meq/ml / potassium chloride 0.004 meq/ml / sodium chloride 0.103 meq/ml / sodium lactate 0.028 meq/ml injectable solution (1 source) Start: 04-12-2023 End: 04-13-2023 take 100 mL intravenously every hour 100 mL/hr, intravenous, Continuous, Starting on Sat04/12/23 at 1715, For 1 day docusate sodium 50 mg / sennosides, fpc 8.6 mg oral tablet (1 source) Start: 04-03-2023 End: 04-17-2023 2 tablet, nasogastric, 2 times daily, First dose (after last modification) on Sat04/03/23 at 0900 Drug or medicament (substance) (1 source) End: 04-17-2023 take 81 mg by mouth every twenty-four hours 2 ml famotidine 10 mg/ml injection (1 source) Histamine-2 Receptor Antagonist Start: 04-01-2023 End: 04-04-2023 20 mg, intravenous, Every 24 hours scheduled, First dose on Sat04/01/23 at 1700, Dilute to total volume of 5 mL with 0.9% sod chl and administer IVP over 2 minutes. 1 ml fentaNYL 0.05 mg/ml injection (1 source) Opioid Agonist Start: 04-11-2023 End: 04-15-2023 25 mcg, intravenous, Every 5 min PRN, Pain Scale 1-5, Starting on Sat04/11/23 at 1503, PACU (only), Up to a maximum dose of 150 mcg. Look-alike/sound-alike medication - verify indication for use. 0.5 ml fondaparinux sodium 5 mg/ml prefilled syringe (3 sources) Factor Xa Inhibitor Start: 04-14-2023 End: 04-17-2023 inject 2.5 mg by subcutaneous injection once daily 2.5 mg, subcutaneous, Daily, First dose (after last modification) on Sat04/14/23 at 0900, Look-alike/sound-alike medication - verify indication for use. Start: 04-11-2023 End: 04-13-2023 inject 1.5 mg by subcutaneous injection once daily 1.5 mg, subcutaneous, Daily, First dose (after last modification) on Sat04/11/23 at 0900, Look-alike/sound-alike medication - verify indication for use. Start: 04-10-2023 End: 04-11-2023 inject 2.5 mg by subcutaneous injection once daily 2.5 mg, subcutaneous, Daily, First dose (after last modification) on Sat04/10/23 at 0900, Look-alike/sound-alike medication - verify indication for use. 4 ml furosemide 10 mg/ml injection (2 sources) Loop Diuretic Start: 04-09-2023 End: 04-09-2023 40 mg, intravenous, Once, On Sat04/09/23 at 0630, For 1 dose, Look-alike/sound-alike medication - verify indication for use. IVP rate = 20 mg/min Start: 04-06-2023 End: 04-06-2023 40 mg, intravenous, Once, On Sat04/06/23 at 1245, For 1 dose, Look-alike/sound-alike medication - verify indication for use. IVP rate = 20 mg/min glucagon (rdna) 1 mg injection (1 source) Antihypoglycemic Agent Start: 04-01-2023 End: 04-17-2023 1 mg, intramuscular, As needed, low blood sugar, blood glucose less than 70 mg/dL and unconscious or NPO without IV access., Starting on Sat04/01/23 at 0408, If conscious and not NPO, immediately follow with meal tray or high protein (7Grams) snack if tray not available. If NPO, initiate IV 5% Dextrose/Water at 100 mL/hr and contact prescriber for additional orders. If blood glucose is not greater than 70 mg/dL after initial treatment, repeat treatment. 150 ml glucose 50 mg/ml injection (3 sources) Start: 04-01-2023 End: 04-17-2023 15 g, oral, As needed, low blood sugar, blood glucose less than 70 mg/dL, Starting on 04/01/23 at 0408, If patient conscious and taking PO. If blood glucose is not greater than 70 mg/dL after initial treatment, repeat treatment. Start: 04-01-2023 End: 04-17-2023 25 mL, intravenous, As neede d, low blood sugar, blood glucose less than 70 mg/dL and unconscious or NPO with IV access, Starting on Sat04/01/23 at 0408, Push over 1-3 minutes STAT. If conscious and not NPO, immediately follow with meal tray or high protein (7 grams) snack if tray not available. If NPO, initiate 5% dextrose in water at 100 mL/hr and contact prescriber for additional orders. If blood glucose is not greater than 70 mg/dL after initial treatment, repeat treatment. VESICANT (RED) Warning: HYPERTONIC solution. Start: 04-01-2023 End: 04-17-2023 take 70 mg intravenously every hour 100 mL/hr, intravenous, Continuous PRN, blood glucose less than 70 mg/dL, Starting on Sat04/01/23 at 0408, Use immediately following dextrose 50% or glucagon treatment for patients who are unconscious or NPO. Contact prescriber for additional orders. If blood glucose is not greater than 70 mg/dL after initial treatment, repeat treatment. 1 ml heparin sodium, porcine 5000 unt/ml injection (1 source) Unfractionated Heparin, Anti-coagulant Start: 04-03-2023 End: 04-09-2023 inject 5000 [IU] by subcutaneous injection every eight hours 5,000 Units, subcutaneous, Every 8 hours scheduled, First dose on Sat04/03/23 at 1400, Look-alike/sound-alike medication - verify indication for use. Observe for bleeding. 1 ml hydrALAZINE hydrochloride 20 mg/ml injection (3 sources) Arteriolar Vasodilator Start: 04-11-2023 End: 04-17-2023 5 mg, intravenous, Every 10 min PRN, high blood pressure, systolic blood pressure greater than 160 mmHg, Starting on Lety 04/11/23 at 1503, PACU (only), Maximum dose of hydrALAZINE (APRESOLINE) is 20 mg while in PACU Look-alike/sound-alike medication - verify indication for use. Administer IV doses as a slow IV push; maximum rate: 5 mg/minute. Start: 04-04-2023 End: 04-05-2023 25 mg, nasogastric, Every 8 hours scheduled, First dose on Lety 04/04/23 at 0830, Hold for SBP <110. Look-alike/sound-alike medication - verify indication for use. Start: 04-01-2023 End: 04-17-2023 take 10 mg intravenously every four hours as needed 10 mg, intravenous, Every 4 hours PRN, high blood pressure, blood pressue outside of parameters as detailed in Admin Instructions, Starting on Sat04/01/23 at 0409, For systolic blood pressure greater than 140 mmHg or diastolic blood pressure greater than 90 mmHg. May repeat times 1 dose after 5 minutes for a total of 20 mg every 4 hours. Administer at a rate of 5 mg/minute. Use if heart rate less than 60 bpm. Notify prescriber if not at goal blood pressure after 2 consecutive doses.Notify provider if systolic blood pressure is less than 90 mm Hg or Diastolic blood pressure is less than 40 mm Hg Look-alike/sound-alike medication - verify indication for use. Administer IV doses as a slow IV push; maximum rate: 5 mg/minute. ibuprofen 800 mg oral tablet (1 source) Nonsteroidal Anti-inflammatory Drug Start: 05-26-2019 End: 04-17-2023 take 400 mg by mouth every six hours as needed for pain 4 ml labetalol hydrochloride 5 mg/ml cartridge (2 sources) beta-Adrenergic Yoselin Start: 04-11-2023 End: 04-17-2023 5 mg, intravenous, Every 5 min PRN, high blood pressure, systolic blood pressure greater than 160 mmHg and heart rate greater than 60 beats per minute, Starting on Lety 04/11/23 at 1503, PACU (only), Maximum dose of labetalol (TRANDATE) is 20 mg while in PACU Look-alike/soun d-alike medication - verify indication for use. Start: 04-01-2023 End: 04-17-2023 10 mg, intravenous, Every 5 min PRN, high blood pressure, blood pressure outside of parameters as detailed in Admin Instructions, Starting on Sat04/01/23 at 0409, For systolic blood pressure greater than 140 mmHg or diastolic blood pressure greater than 90 mmHg. May repeat 3 times in one hour. Administer 10 mg IVP over 1 minute. Use if heart rate is 60 bpm or greater. Notify prescriber if not at goal blood pressure after 3 consecutive doses. Notify provider if systolic blood pressure is less than 90 mm Hg or Diastolic blood pressure is less than 40 mm Hg Look-alike/sound-alike medication - verify indication for use. magnesium hydroxide 80 mg/ml oral suspension (1 source) Start: 04-04-2023 End: 04-17-2023 30 mL, nasogastric, Every 3 days, First dose on Lety 04/04/23 at 2200, Start at 2200 on day 1 Shake well. 50 ml magnesium sulfate 40 mg/ml injection (1 source) Start: 04-09-2023 End: 04-09-2023 2,000 mg, intravenous, at 25 mL/hr, Administer over 120 Minutes, Once, On Sat04/09/23 at 0915, For 1 dose, Infuse each gram over 60 minutes. melatonin 3 mg oral tablet (2 sources) Start: 04-04-2023 End: 04-17-2023 6 mg, nasogastric, Nightly PRN, sleep, Starting on Sat04/10/23 at 0946 methylPREDNISolone 4 mg oral tablet (12 sources) Corticosteroid Start: 06-20-2022 Medrol 4 MG as directed Orally Jun, Not-Taking/PRN 5 ml metoprolol tartrate 1 mg/ml injection (20 sources) beta-Adrenergic Yoselin Start: 04-11-2023 End: 04-17-2023 2.5 mg, intravenous, Every 5 min PRN, high blood pressure, systolic blood pressure greater than 160 mmHg and heart rate greater than 60 beats per minute, Starting on Lety 04/11/23 at 1503, PACU (only), Maximum dose of metoprolol (LOPRESSOR) is 10 mg while in PACU Look-alike/sound-al caleb medication - verify indication for use. Start: 09-15-2019 Lopressor Refi lls(s) 0 Start Date: 09/15/19 Status: Ordered Start: 05-03-2019 take 1 tablet by melly th in the morning, then take 1 tablet by mouth at bedtime metoprolol tartrate (LOPRESSOR) 25 mg tablet Take 1 tablet (25 mg total) by mouth in the morning and 1 tablet (25 mg total) before bedtime. 0 05/03/2019 Active Metoprolol Succi sebastian Active niCARdipine (CARDENE) infusion 25 mg/50 mL in sodium chloride 0.9% (0.5 mg/mL cmpd premix) (1 source) Start: 04-01-2023 End: 04-04-2023 5-15 mg/hr (10-30 mL/hr), intravenous, Continuous, Starting on 04/01/23 at 0415, Start at 5 mg/hr. Titrate by 2.5 mg/hr every 5 minutes to achieve (SBP < 140). Max dose 15 mg/hr. Central line administration preferred. If central line access is not immediately available, only administer through a large peripheral vein (placement of a central line recommended if local site reaction occurs). Peripheral venous irritation may be minimized by changing the site of infusion every 12 hours. Look-alike/sound-alike medication. Verify indication for use. Do not combine or run in the same line as other medications. 2 ml ondansetron 2 mg/ml injection (3 sources) Serotonin-3 Receptor Antagonist Start: 04-11-2023 End: 04-17-2023 4 mg, intravenous, Once as needed, nausea, Starting on Lety 04/11/23 at 1503, For 1 dose, PACU (only), Administer over 2-5 minutes. Start: 04-01-2023 End: 04-01-2023 Starting on Sat04/01/23 at 1604, For 1 dose, Sample, Camacho: scott franceide Administer over 2-5 minutes. Start: 04-01-2023 End: 04-17-2023 take 4 mg intravenously every six hours as needed for nausea and vomiting 4 mg, intravenous, Every 6 hours PRN, nausea, vomiting, Starting on Sat04/01/23 at 1603, Administer over 2-5 minutes. predniSONE 5 mg oral tablet (11 sources) Start: 07-20-2022 predniSONE 5 MG TAKE 4 PILLS BY MOUTH X 2 DAYS, TAKE 3 PILLS BY MOUTH X 2 DAYS, TAKE 2 PILLS BY MOUTH X 2 DAYS, TAKE 1 PILL BY MOUTH X 1 DAY Orally Daily for 7 days Jul, Not-Taking/PRN QUEtiapine 25 mg oral tablet (1 source) Atypical Antipsychotic Start: 04-05-2023 End: 04-10-2023 take 12.5 mg by mouth once daily as needed 12.5 mg, oral, Nightly PRN, Agitation, Starting on Sat04/05/23 at 0309, Look-alike/sound-ali ke medication - verify indication for use. 1000 ml sodium chloride 9 mg/ml injection (8 sources) Start: 04-12-2023 End: 04-12-2023 10 mL, intravenous, Once in imaging, line care, Starting on 04/12/23 at 0328, For 1 dose, Additional Imaging Orders Start: 04-06-2023 End: 04-06-2023 10 mL, intravenous, Once in imaging, line care, Starting on 04/06/23 at 1529, For 1 dose, Additional Imaging Orders Start: 04-01-2023 End: 04-17-2023 80 mL, intravenous, Once in imaging, pre/post contrast, Starting on 04/12/23 at 0328, For 1 dose, Additional Imaging Orders triamcinolone acetonide 40 mg/ml injectable suspension (20 sources) Corticosteroid Start: 08-31-2022 Kenalog-40 August, 20 mg Start: 12-22-2017 KENALOG - 10 m g Dec, 40 mg (2 sources) Start: 04-12-2023 End: 04-12-2023 100 mL, intravenous, Once in imaging, contrast, Starting on 04/12/23 at 0328, For 1 dose, Additional Imaging Orders, VESICANT (RED) Start: 04-06-2023 End: 04-06-2023 100 mL, intravenous, Once in imaging, contrast, Starting on 04/06/23 at 1529, For 1 dose, Additional Imaging Orders, VESICANT (RED) (7 sources) Start: 04-11-2023 End: 04-11-2023 125 mg, intravenous, at 163 mL/hr, Administer over 20 Minutes, Once, On Lety 04/11/23 at 0900, For 1 dose Start: 04-08-2023 End: 04-09-2023 125 mL/hr, intravenous, Cont inuous, Starting on 04/08/23 at 0830, For Sodium level 160 mmol/L or [id number] mL/hr; 150 to 159 mmol/L=125 mL/hr; 145 to 149 mmol/L=100 mL/hr; 140 to 144 mmol/L=50 mL/hr; Less than 140 mmol/lL=INT IVs Notify Nephrology if sodium decreases 10 mmol/L or greater in 24 hours solution= dextrose 2.5 % Start: 04-01-2023 End: 04-17-2023 [Order 1 Start] Name: calciu m gluconate IVPB 1000 mg/50 mL (20 mg/mL premix) Signed Summary: 1,000 mg, intravenous, at 50 mL/hr, Administer over 60 Minutes, As needed, for ionized calcium level 3.5 to 4.4 mg/dL, Starting on Sat04/01/23 at 0408, Recheck ionized calcium 6 hours after infusion. Hold calcium replacement for phosphorus greater than 5.5 mg/dL. VESICANT (RED) [Order 1 End] [Order 2 Start] Name: calcium gluconate IVPB 2000 mg/100 mL (20 mg/mL premix) Signed Summary: 2,000 mg, intravenous, at 100 mL/hr, Administer over 60 Minutes, As needed, for ionized calcium level 3 to 3.4 mg/dL, Starting on Sat04/01/23 at 0408, Recheck ionized calcium 6 hours after infusion. Hold calcium replacement for phosphorus greater than 5.5 mg/dL. VESICANT (RED) [Order 2 End] [Order 3 Start] Name: calcium gluconate 3,000 mg in sodium chloride 0.9 % 100 mL IVPB Signed Summary: 3,000 mg, intravenous, at 130 mL/hr, Administer over 60 Minutes, As needed, for ionized calcium level less than 3 mg/dL, Starting on Sat04/01/23 at 0408, CALL PHYSICIAN if this dose is administered. Recheck ionized calcium 6 hours after infusion. Hold calcium replacement for phosphorus greater than 5.5 mg/dL. VESICANT (RED) [Order 3 End] Start: 04-01-2023 End: 04-17-2023 [Order 1 Start] Name: sodium phosphate 20 mmol in sodium chloride 0.9 % 250 mL IVPB Signed Summary: 20 mmol, intravenous, at 42.8 mL/hr, Administer over 6 Hours, As needed, for phosphorous level 2.3 mg/dL or less, Starting on Sat04/01/23 at 0408, Administer over 6 hours via dedicated line (peripheral line). If administered, recheck phosphorus level 4 hours after infusion complete. [Order 1 End] [Order 2 Start] Name: sodium phosphate 20 mmol in sodium chloride 0.9 % 100 mL IVPB Signed Summary: 20 mmol, intravenous, at 26.7 mL/hr, Administer over 4 Hours, As needed, for phosphorous level 2.3 mg/dL or less, Starting on Sat04/01/23 at 0408, Administer over 4 hours via dedicated line(central line). If administered, recheck phosphorus level 4 hours after infusion complete. Infuse using central line access. [Order 2 End] [Order 3 Start] Name: sod phos di, mono-K phos mono (K-PHOS NEUTRAL) 250 mg tablet 2 tablet Signed Summary: 2 tablet, oral, As needed, for phosphorous level 2.3 mg/dL or less, Starting on Sat04/01/23 at 0408, If dose administered, recheck phosphorus level 4 hours after last dose. Look-alike/sound-alike medication - verify indication for use. Give with a full glass of water. [Order 3 End] Start: 04-01-2023 End: 04-17-2023 [Order 1 Start] Name: felipe ium sulfate IVPB 2000 mg/50 mL in iso-osmotic water (40 mg/mL premix) Signed Summary: 2,000 mg, intravenous, at 25 mL/hr, Administer over 120 Minutes, As needed, for magnesium level 1.7 to 1.9 mg/dL or ionized magnesium level 0.45 to 0.5 mmol/L, Starting on Sat04/01/23 at 0408, Use premix solution. Default to ionized magnesium level in cases where patient has both magnesium and ionized magnesium results. If administered, check ionized magnesium (or total magnesium if ionized magnesium unavailable) level 4 hours after infusion. [Order 1 End] [Order 2 Start] Name: magnesium sulfate IVPB 4000 mg/100 mL in iso-osmotic water (40 mg/mL premix) Signed Summary: 4,000 mg, intravenous, at 25 mL/hr, Administer over 240 Minutes, As needed, for magnesium level 1.6 mg/mL or less, or ionized magnesium level 0.44 mmol/L or less, Starting on Sat04/01/23 at 0408, Use premix solution. Default to ionized magnesium level in cases where patient has both magnesium and ionized magnesium results. If administered, check ionized magnesium (or total magnesium if ionized magnesium unavailable) level 4 hours after infusion. [Order 2 End] Start: 04-01-2023 End: 04-17-2023 take 1 tablet by mouth once [Order 1 Start] Name: pota ssium chloride (K-TAB,KLOR-CON) CR tablet 20-50 mEq Signed Summary: 20-50 mEq, oral, As needed, for potassium replacement, Starting on Sat04/01/23 at 0408, Progress to oral potassium replacement when patient tolerating oral intake. If dose administered, recheck potassium level 4 hours after last dose. For potassium level 3.4 to 3.8 mmol/L and Serum Creatinine 1.2 or less=30 mEq. For potassium level 3.1 to 3.3 mmol/L and Serum Creatinine 1.2 or less=40 mEq. For potassium level 3 mmol/L or less and Serum Creatinine 1.2 or less=50 mEq. For potassium level 3.4 to 3.8 mmol/L and Serum Creatinine greater than 1.2=20 mEq. For potassium level 3.1 to 3.3 mmol/L and Serum Creatinine greater than 1.2=30 mEq. For potassium level 3 mmol/L or less and Serum Creatinine greater than 1.2=40 mEq. Do not crush or chew. [Order 1 End] [Order 2 Start] Name: potassium chloride (KAYCIEL) 20 mEq/15 mL solution 20-50 mEq Signed Summary: 20-50 mEq, oral, As needed, potassium replacement, Starting on Sat04/01/23 at 0408, Progress to oral potassium replacement when patient tolerating oral intake. If dose administered, recheck potassium level 4 hours after last dose. For potassium level 3.4 to 3.8 mmol/L and Serum Creatinine 1.2 or less=30 mEq (22.5mL). For potassium level 3.1 to 3.3 mmol/L and Serum Creatinine 1.2 or less=40 mEq (30mL). For potassium level 3 mmol/L or less and Serum Creatinine 1.2 or less=50 mEq (37.5mL). For potassium level 3.4 to 3.8 mmol/L and Serum Creatinine greater than 1.2=20 mEq (15mL). For potassium level 3.1 to 3.3 mmol/L and Serum Creatinine greater than 1.2=30 mEq (22.5mL). For potassium level 3 mmol/L or less and Serum Creatinine greater than 1.2=40 mEq (30mL). Must dilute before use - Mix in 3-8 ounces of water or juice before administration When administering in feeding tube, flush before and after per policy and monitor potassium levels [Order 2 End] Start: 04-01-2023 End: 04-17-2023 [Order 1 Start] Name: potass ium chloride IVPB 10 mEq/50 mL in water (0.2 mEq/mL premix) Signed Summary: 10 mEq, intravenous, at 50 mL/hr, Administer over 1 Hours, As needed, for potassium replacement, Starting on Sat04/01/23 at 0408, Administer Potassium Chloride IVPB in 10 mEq increments. Maximum infusion rates: Central Line = 20 mEq/hour. Administer via Central Line Only. If dose administered, recheck potassium level 1 hour after infusion complete. For potassium level 3.4 to 3.8 mmol/L and Serum Creatinine 1.2 or less = 30 mEq For potassium level 3.1 to 3.3 mmol/L and Serum Creatinine 1.2 or less = 40 mEq For potassium level 3 mmol/L or less and Serum Creatinine 1.2 or less = 50 mEq For potassium level 3.4 to 3.8 mmol/L and Serum Creatinine greater than 1.2 = 20 mEq For potassium level 3.1 to 3.3 mmol/L and Serum Creatinine greater than 1.2 = 30 mEq For potassium level 3 mmol/L or less and Serum Creatinine greater than 1.2 = 40 mEq VESICANT (YELLOW) [Order 1 End] [Order 2 Start] Name: potassium chloride IVPB 10 mEq/100 mL in water (0.1 mEq/mL premix) Signed Summary: 10 mEq, intravenous, at 100 mL/hr, Administer over 60 Minutes, As needed, for potassium replacement, Starting on Sat04/01/23 at 0408, Administer Potassium Chloride IVPB in 10 mEq increments. Maximum infusion rates: Central Line = 20 mEq/hour; Peripheral Line = 10 mEq/hour (10 mEq/100 mL). If dose administered, recheck potassium level 1 hour after infusion complete. For potassium level 3.4 to 3.8 mmol/L and Serum Creatinine 1.2 or less = 30 mEq For potassium level 3.1 to 3.3 mmol/L and Serum Creatinine 1.2 or less = 40 mEq For potassium level 3 mmol/L or less and Serum Creatinine 1.2 or less = 50 mEq For potassium level 3.4 to 3.8 mmol/L and Serum Creatinine greater than 1.2 = 20 mEq For potassium level 3.1 to 3.3 mmol/L and Serum Creatinine greater than 1.2 = 30 mEq For potassium level 3 mmol/L or less and Serum Creatinine greater than 1.2 = 40 mEq VESICANT (YELLOW) Infuse each 10 mEq over a minimum of 1 hour. [Order 2 End] (1 source) Start: 04-09-2023 End: 04-17-2023 1 spray, oral, As needed, dr y mouth, Starting on Sat04/09/23 at 0928 (1 source) Start: 04-04-2023 End: 04-17-2023 40 mg, nasogastric, Daily, F irst dose on Lety 04/04/23 at 0900, Administer 1 hour before a meal. Suspend tube feeding for 3 hours before and 1 hour after administering. 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, subcortical] Onset: 3 04-09-2023 Chronic Aortic; peripheral; and visceral artery aneurysms (18 sources) Thoracic aortic aneurysm, without rupture; Translations: [Aneurysm of artery of lower extremity] Onset: 9 Chronic Biliary tract disease (6 sources) Gallbladder calculus with acute cholecystitis and no obstruction; Translations: [Calculus of gallbladder with acute cholecystitis without obstruction] Episodic Cardiac dysrhythmias (1 source) Bradycardia, unspecified; Translations: [Bradycardia, unspecified] Onset: 3 Episodic Chronic obstructive pulmonary disease and bronchiectasis (12 sources) Acute exacerbation of chronic obstructive airways disease; Translations: [Chronic obstructive pulmonary disease with (acute) exacerbation] Onset: 8 Chronic Coagulation and hemorrhagic disorders (4 sources) Thrombocytopenic disorder; Translations: [Thrombocytopenia, unspecified] Chronic Disorders of lipid metabolism (12 sources) Mixed hyperlipidemia; Translations: [Mixed hyperlipidemia] Onset: 0 Chronic E Codes: Fall (1 source) Unspecified fall, initial encounter; Translations: [UNSPECIFIED FALL INITIAL ENCOUNTER] Onset: 3 Episodic Esophageal disorders (6 sources) Gastroesophageal reflux disease without esophagitis; Translations: [Gastro-esophageal reflux disease without esophagitis] Chronic Essential hypertension (11 sources) Essential hypertension; Translations: [Essential (primary) hypertension] Chronic Fracture of upper limb (18 sources) Fracture at wrist and/or hand level; Translations: [Fracture of unspecified carpal bone, right wrist, initial encounter for closed fracture] Onset: 3 04-30-2022 Episodic Gastrointestinal hemorrhage (1 source) Hemorrhage of anus and rectum Episodic Headache; including migraine (6 sources) Chronic migraine without aura, non-refractory; Translations: [Migraine without aura, not intractable, without status migrainosus] Chronic Inflammatory diseases of female pelvic organs (6 sources) Acute vaginitis; Translations: [Acute vaginitis] Episodic Menopausal disorders (6 sources) Menopause present; Translations: [Menopausal and female climacteric states] Chronic Osteoarthritis (6 sources) Osteoarthritis; Translations: [Unspecified osteoarthritis, unspecified site] Chronic Other aftercare (1 source) 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; Translations: [INTERMEDIATE CURRENT USE OF ASPIRIN] Onset: 3 Episodic Other aftercare (1 source) Other group home (current) drug therapy; Translations: [OTH GAS CONTROLLER CURRENT DRUG THERAPY] Onset: 3 Episodic Other bone disease and musculoskeletal deformities (5 sources) Bone density finding; Translations: [Other specified disorders of bone density and structure, unspecified site] Episodic Other bone disease and musculoskeletal deformities (1 source) Other specified disorders of bone density and structure, unspecified site; Translations: [Oth disrd of bone density and structure, unspecified site] Episodic Other circulatory disease (5 sources) Elevated blood-pressure reading without diagnosis of hypertension; Translations: [Elevated blood-pressure reading, without diagnosis of hypertension] Episodic Other circulatory disease (1 source) Elevated blood-pressure reading, without diagnosis of hypertension; Translations: [Elevated blood-pressure reading, without diagnosis of hypertension] Episodic Other nervous system disorders (10 sources) Carpal tunnel syndrome of right wrist; Translations: [Carpal tunnel syndrome, right upper limb] Chronic Other nervous system disorders (3 sources) Carpal tunnel syndrome, right upper limb Chronic Other nervous system disorders (4 sources) Pain in limb; Translations: [Other acute postprocedural pain] 04-30-2022 Episodic Other non-epithelial cancer of skin (17 sources) Basal cell carcinoma of skin; Translations: [Basal cell carcinoma of skin] Episodic Other non-traumatic joint disorders (3 sources) Pain in right wrist; Translations: [PAIN IN RIGHT WRIST] Onset: 3 Episodic Other screening for suspected conditions (not mental disorders or infectious disease) (5 sources) Encounter for screening mammogram for malignant neoplasm of breast; Translations: [ENC SCR MAMMO MALIG NEOPLASM BREAST] Onset: 3 Episodic Other skin disorders (10 sources) Localized swelling, mass and lump, left lower limb; Translations: [LOC SWELL MASS LUMP LT LOWER LIMB] Onset: 2 Episodic Other skin disorders (6 sources) Changes in skin texture; Translations: [Changes in skin texture] Episodic Other upper respiratory disease (5 sources) Allergic rhinitis; Translations: [Allergic rhinitis, unspecified] Onset: 6 Chronic Other upper respiratory disease (1 source) Allergic rhinitis, unspecified; Translations: [Allergic rhinitis, unspecified] Onset: 6 Chronic Other upper respiratory infections (6 sources) Chronic sinusitis; Translations: [Chronic sinusitis, unspecified] Chronic Poisoning by nonmedicinal substances (7 sources) Toxic effect of venom of wasps, accidental (unintentional), initial encounter; Translations: [Toxic effect of venom] Episodic Residual codes; unclassified (8 sources) Other specified postprocedural states; Translations: [OTH SPECIFIED POSTPROCEDURAL STATES] Onset: 3 Episodic Residual codes; unclassified (1 source) Pain, unspecified; Translations: [Pain, unspecified] Onset: 3 Episodic Spondylosis; intervertebral disc disorders; other back problems (1 source) Spondylosis without myelopathy or radiculopathy, lumbar region; Translations: [SPONDYLS W/O MYELO-/RADICULOP LUMB] Onset: 3 Chronic Substance-related disorders (6 sources) Nicotine dependence; Translations: [Nicotine dependence, cigarettes, [...] Translations: [Abdominal aortic aneurysm, without rupture, unspecified] Unclassified (1 source) Left thalamic hemorrhage Onset: 3 Past or Other Problems Problem Classification Problem Date Documented Date Episodic/Chronic Bacterial infection; unspecified site (6 sources) Bacterial infectious disease; Translations: [Bacterial infection, unspecified, in conditions classified elsewhere and of unspecified site] Onset: 05-30-2016 Episodic Immunizations and screening for infectious disease (6 sources) Vaccination given; Translations: [Encounter for immunization] Onset: 02-09-2016 Episodic Neoplasms of unspecified nature or uncertain behavior (5 sources) Neoplasm of uncertain behavior of soft [...] Episodic Other nutritional; endocrine; and metabolic disorders (6 sources) Overweight; Translations: [Overweight] Onset: 11-05-2017 Episodic Other nutritional; endocrine; and metabolic disorders (6 sources) Body mass index 25-29 - overweight; Translations: [Body mass index 28.0-28.9, adult] Onset: 03-05-2017 Episodic Other skin disorders (6 sources) Inflamed seborrheic keratosis; Translations: [Inflamed seborrheic keratosis] Onset: 05-17-2016 Episodic Other skin disorders (6 sources) Actinic keratosis; Translations: [Actinic keratosis] Onset: 02-09-2016 Episodic Other upper respiratory infections (18 sources) Acute maxillary sinusitis; Translations: [Acute recurrent maxillary sinusitis] Onset: 08-02-2014 Episodic Residual codes; unclassified (5 sources) Tobacco user; Translations: [Tobacco use] Onset: 05-30-2016 Episodic Residual codes; unclassified (1 source) Tobacco use; Translations: [Tobacco use] Onset: 05-30-2016 Episodic Screening and history of mental health and substance abuse codes (6 sources) Nicotine dependence; Translations: [Personal history of nicotine dependence] Onset: 10-31-2018 Episodic Thyroid disorders (6 sources) Disorder of thyroid gland; Translations: [Unspecified disorder of thyroid] Onset: 10-31-2018 Episodic Unclassified (1 source) LOW BACK PAIN, UNSPECIFIED; Translations: [LOW BACK PAIN, UNSPECIFIED] Onset: 04-16-2022 Unclassified (1 source) Lumbar pain M54.50 Unclassified (1 source) Neoplasms of unspecified nature of bone, soft tissue, and skin; Translations: [Neoplasms of unspecified nature of bone, soft tissue, and skin] Onset: 11-28-2012 Results Test Name Value Interpretation Reference Range Facility CBC AND AUTO DIFFon 04-17-19 ABSOLUTE BASOPHIL 0.0 X10E9/L Normal 0.0-0.2 [facility] Comment on above: Performed By: #### C GUMARO CBCA ####[facility] ([id number])[address], [place] [address] ABSOLUTE NEUTROPHIL 7.0 X10E9/L High 1.5-6.6 [facility] Comment on above: Performed By: #### C GUMARO CBCA ####[facility] ([id number])[address], [address], [place] [address] Basophils/100 WBC (Bld) 0.3 % Normal P [facility] Comment on above: Performed By: #### C GUMARO, CBCA ####[facility] ([id number])[address], [address], [place] [address] Eosinophils (Bld) [#/Vol] 0.2 10*3/uL Normal 0.0-0.4 [facility] Comment on above: Performed By: #### C MP, CBCA ####[facility] ([id number])[address] [address] [address] Eosinophils/100 WBC (Bld) 2.4 % Normal [facility] Comment on above: Performed By: #### C MP, CBCA ####[facility] ([id number])[address] [place] [address] Erythrocyte distribution width (RBC) [Ratio] 14.7 % Normal 11.5-15.0 [facility] Comment on above: Performed By: #### C MP, CBCA ####[facility] ([id number])[address] [address], [place] [address] Hematocrit (Bld) [Volume fraction] 35.3 % Normal 35-47 [facility] Comment on above: Performed By: #### C MP, CBCA ####[facility] ([id number])[address] [address] [address] Hemoglobin (Bld) [Mass/Vol] 12.1 g/dL Normal 11.7-15.5 [facility] Comment on above: Performed By: #### C MP, CBCA ####[facility] ([id number])[address] [address], [place] [address] Lymphocytes (Bld) [#/Vol] 0.7 10*3/uL Low 1.0-3.5 [facility] Comment on above: Performed By: #### C MP, CBCA ####[facility] ([id number])[address] [address] [address] Lymphocytes/100 WBC (Bld) 7.6 % Normal [facility] Comment on above: Performed By: #### C MP, CBCA ####[facility] ([id number])[address], [place] [address] MCH (RBC) [Entitic mass] 28.9 pg Normal 27-34 [facility] Comment on above: Performed By: #### C MP, CBCA ####[facility] ([id number])[address] [place] [address] MCHC (RBC) [Mass/Vol] 34.1 g/dL Normal 32-36 [facility] Comment on above: Performed By: #### C MP, CBCA ####[facility] ([id number])[address], [place] [address] MCV (RBC) [Entitic vol] 85 fL Normal 80-100 [facility] Comment on above: Performed By: #### C MP, CBCA ####[facility] ([id number])[address], [place] [address] Monocytes (Bld) [#/Vol] 0.7 10*3/uL Normal 0-0.9 [facility] Comment on above: Performed By: #### C MP, CBCA ####[facility] ([id number])[address] [address], [place] [address] Monocytes/100 WBC (Bld) 7.8 % Normal [facility] Comment on above: Performed By: #### C MP, CBCA ####[facility] ([id number])[address] [address] [place] [address], [place] [address] Neutrophils/100 WBC (Bld) 81.9 % Normal [facility] Comment on above: Performed By: #### C MP, CBCA ####[facility] ([id number])[address] [address], [place] [address] Platelet mean volume (Bld) [Entitic vol] 9.8 fL Normal 7-12 [facility] Comment on above: Performed By: #### C MP, CBCA ####[facility] ([id number])[address] [address] Platelets (Bld) [#/Vol] 130 10*3/uL Low 150-450 [facility] Comment on above: Performed By: #### C MP, CBCA ####[facility] ([id number])[address] [address] RBC COUNT 4.18 X10E12/L Normal 3.80-5.20 [facility] Comment on above: Performed By: #### C MP, CBCA ####[facility] ([id number])[address] [address] WBC (Bld) [#/Vol] 8.6 10*3/uL Normal 4.0-11.0 [facility] Comment on above: Performed By: #### C MP, CBCA ####[facility] ([id number])[address] [address] CBC auto differentialon 04-08 Basophils (Bld) [#/Vol] 0.0 10*3/uL [facility] Basophils/100 WBC (Bld) 0.3 % [facility] Eosinophils (Bld) [#/Vol] 0.2 10*3/uL [facility] Eosinophils/100 WBC (Bld) 2.4 % [facility] Erythrocyte distribution width (RBC) [Ratio] 14.7 % 11.5 - 15.0 % [facility] Hematocrit (Bld) [Volume fraction] 35.3 % 35 - 47 % [facility] Hemoglobin (Bld) [Mass/Vol] 12.1 g/dL 11.7 - 15.5 g/dL [facility] Interpretation and review of laboratory results Abnormal [facility] Lymphocytes (Bld) [#/Vol] 0.7 10*3/uL Low [facility] Lymphocytes/100 WBC (Bld) 7.6 % [facility] MCH (RBC) [Entitic mass] 28.9 pg 27 - 34 pg [facility] MCHC (RBC) [Mass/Vol] 34.1 g/dL 32 - 3 6 g/dL [facility] MCV (RBC) [Entitic vol] 85 fL 80 - 100 fL [facility] Monocytes (Bld) [#/Vol] 0.7 10*3/uL [facility] Monocytes/100 WBC (Bld) 7.8 % P [facility] Neutrophils (Bld) [#/Vol] 7.0 10*3/uL High [facility] Neutrophils/100 WBC (Bld) 81.9 % [facility] Platelet mean volume (Bld) [Entitic vol] 9.8 fL 7 - 12 fL [facility] Platelets (Bld) [#/Vol] 130 10*3/uL Low [facility] RBC (Bld) [#/Vol] 4.18 10*6/uL [facility] WBC corrected for nucl RBC Auto (Bld) [#/Vol] 8.6 [facility] COMPREHENSIVE METABOLIC PANE Dennis 04-17-2023 Albumin [Mass/Vol] 3.1 g/dL Low 3.2-5.3 [facility] Comment on above: Performed By: #### C JA NAIK ####[facility] ([id number])[address], [place] [address] ALP [Catalytic activity/Vol] 86 U/L Normal 39-130 [facility] Comment on above: Performed By: #### C GUMARO CBCA ####[facility] ([id number])[address], [place] [address] ALT [Catalytic activity/Vol] 69 U/L High 0-31 [facility] Comment on above: Performed By: #### C GUMARO CBCA ####[facility] ([id number])[address], [place] [address] Anion gap [Moles/Vol] 7 mmol/L Normal 5-15 [facility] Comment on above: Performed By: #### C GUMARO CBCA ####[facility] ([id number])[address], [address], [place] [address] AST [Catalytic activity/Vol] 24 U/L Normal 0-41 [facility] Comment on above: Performed By: #### C GUMARO, CBCA ####[facility] ([id number])[address], [place] [address] Bilirubin [Mass/Vol] 0.4 mg/dL Normal 0.3-1.2 [facility] Comment on above: Performed By: #### C GUMARO CBCA ####[facility] ([id number])[address] [address], [place] [address] Calcium [Mass/Vol] 8.8 mg/dL Normal 8.5-10.5 [facility] Comment on above: Performed By: #### C GUMARO CBCA ####[facility] ([id number])[address] [address], [place] [address] Chloride [Moles/Vol] 105 mmol/L Normal 98-109 [facility] Comment on above: Performed By: #### C GUMARO CBCA ####[facility] ([id number])[address] [address], [place] [address] CO2 [Moles/Vol] 27 mmol/L Normal 22-32 [facility] Comment on above: Performed By: #### C GUMARO CBCA ####[facility] ([id number])[address], [address], [place] [address] Creatinine [Mass/Vol] 0.48 mg/dL Normal 0.40-1.00 [facility] Comment on above: Result Comment: METH OD TRACEABLE TO IDMS STANDARD Performed By: #### C GUMARO CBCA ####[facility] ([id number])[address], [address], [place] [address] eGFR (CKD-EPI) NON-RACE DEPENDENT >90 Normal >59 [facility] Comment on above: Result Comment: Repo rted eGFR is based on theCKD-EPI 2020 equation that doesnot use a race coefficient. Performed By: #### C GUMARO CBCA ####[facility] ([id number])[address] [address], [place] [address] Glucose [Mass/Vol] 131 mg/dL High 65-99 [facility] Comment on above: Performed By: #### C GUMARO CBCA ####[facility] ([id number])[address] [address], [place] [address] Potassium [Moles/Vol] 4.1 mmol/L Normal 3.5-5.0 [facility] Comment on above: Performed By: #### C GUMARO CBCA ####[facility] ([id number])[address] [address] [place] [address], [place] [address] Protein [Mass/Vol] 6.0 g/dL Normal 6.0-8.0 [facility] Comment on above: Performed By: #### C GUMARO CBCA ####[facility] ([id number])[address] [address], [place] [address] Sodium [Moles/Vol] 139 mmol/L Normal 134-146 [facility] Comment on above: Performed By: #### C GUMARO CBCA ####[facility] ([id number])[address] [address] [place] [address], [place] [address] Urea nitrogen [Mass/Vol] 26 mg/dL Normal 5-27 [facility] Comment on above: Performed By: #### C GUMARO, CBCA ####[facility] ([id number])[address] [address], [place] [address] Comprehensive metabolic pane dennis 04-17-2023 Albumin [Mass/Vol] 3.1 g/dL Low 3.2 - 5.3 g/dL [facility] ALP [Catalytic activity/Vol] 86 U/L 39 - 130 U/L [facility] ALT No additional P-5'-P [Catalytic activity/Vol] 69 U/L High 0 - 31 U/L [facility] Anion gap [Moles/Vol] 7 mmol/L 5 - 15 mmol/L [facility] AST [Catalytic activity/Vol] 24 U/L 0 - 41 U/L [facility] Bilirubin [Mass/Vol] 0.4 mg/dL 0.3 - 1 .2 mg/dL [facility] Calcium [Mass/Vol] 8.8 mg/dL 8.5 - 10. 5 mg/dL [facility] Chloride [Moles/Vol] 105 mmol/L 98 - 10 9 mmol/L [facility] CO2 [Moles/Vol] 27 mmol/L 22 - 32 mmol/L [facility] Creatinine [Mass/Vol] 0.48 mg/dL 0.40 - 1.00 mg/dL [facility] eGFR (CKD-EPI)non-race dependent - PINF [facility] Glucose [Mass/Vol] 131 mg/dL High 65 - 99 mg/dL [facility] Interpretation and review of laboratory results Abnormal [facility] Potassium [Moles/Vol] 4.1 mmol/L 3.5 - 5.0 mmol/L [facility] Protein [Mass/Vol] 6.0 g/dL 6.0 - 8.0 g/dL [facility] Sodium [Moles/Vol] 139 mmol/L 134 - 146 mmol/L [facility] Urea nitrogen [Mass/Vol] 26 mg/dL 5 - 27 mg/dL [facility] Glucose Glucometer (BldC) [M ass/Vol]on 04-17-2023 Glucose [Mass/Vol] 132 mg/dL High 65-99 [facility] Glucose [Mass/Vol] 132 mg/dL High 65 - 99 mg/dL [facility] Interpretation and review of laboratory results Abnormal [facility] CBC AND AUTO DIFFon 04-16-19 24 ABSOLUTE BASOPHIL 0.0 X10E9/L Normal 0.0-0.2 [facility] Comment on above: Performed By: #### C BCA, CMP ####[facility] ([id number])[address] [address], [place] [address] ABSOLUTE NEUTROPHIL 7.1 X10E9/L High 1.5-6.6 [facility] Comment on above: Performed By: #### C BCA, CMP ####[facility] ([id number])[address] [address], [place] [address] Basophils/100 WBC (Bld) 0.4 % Normal P [facility] Comment on above: Performed By: #### C BCA, CMP ####[facility] ([id number])[address] [address] [place] [address] Eosinophils (Bld) [#/Vol] 0.2 10*3/uL Normal 0.0-0.4 [facility] Comment on above: Performed By: #### C BCA, CMP ####[facility] ([id number])[address] [address] [place] [address] Eosinophils/100 WBC (Bld) 2.5 % Normal [facility] Comment on above: Performed By: #### C BCA, CMP ####[facility] ([id number])[address] [address] Erythrocyte distribution width (RBC) [Ratio] 14.9 % Normal 11.5-15.0 [facility] Comment on above: Performed By: #### C BCA, CMP ####[facility] ([id number])[address] [address] Hematocrit (Bld) [Volume fraction] 37.0 % Normal 35-47 [facility] Comment on above: Performed By: #### C BCA, CMP ####[facility] ([id number])[address], [place] [address] Hemoglobin (Bld) [Mass/Vol] 12.3 g/dL Normal 11.7-15.5 [facility] Comment on above: Performed By: #### C BROOK[place]N, CMP ####[facility] ([id number])[address], [address], [place] [address] Lymphocytes (Bld) [#/Vol] 0.5 10*3/uL Low 1.0-3.5 [facility] Comment on above: Performed By: #### C BROOK[place]N, CMP ####[facility] ([id number])[address], [address], [place] [address] Lymphocytes/100 WBC (Bld) 5.9 % Normal [facility] Comment on above: Performed By: #### C BROOK[place]N, CMP ####[facility] ([id number])[address] [address], [place] [address] MCH (RBC) [Entitic mass] 28.1 pg Normal 27-34 [facility] Comment on above: Performed By: #### C BROOK[place]N, CMP ####[facility] ([id number])[address] [place] [address] MCHC (RBC) [Mass/Vol] 33.3 g/dL Normal 32-36 [facility] Comment on above: Performed By: #### C BROOK[place]N, CMP ####[facility] ([id number])[address] [address], [place] [address] MCV (RBC) [Entitic vol] 85 fL Normal 80-100 P [facility] Comment on above: Performed By: #### C BCA, CMP ####[facility] ([id number])[address] [address] [place] [address] Monocytes (Bld) [#/Vol] 0.7 10*3/uL Normal 0-0.9 [facility] Comment on above: Performed By: #### C BROOK[place]N, CMP ####[facility] ([id number])[address] [place] [address] Monocytes/100 WBC (Bld) 7.8 % Normal [facility] Comment on above: Performed By: #### C BROOK[place]N, CMP ####[facility] ([id number])[address] [place] [address] Neutrophils/100 WBC (Bld) 83.4 % Normal [facility] Comment on above: Performed By: #### C BROOK[place]N, CMP ####[facility] ([id number])[address] [address], [place] [address] Platelet mean volume (Bld) [Entitic vol] 9.6 fL Normal 7-12 [facility] Comment on above: Performed By: #### C BROOK[place]N, CMP ####[facility] ([id number])[address] [address] [place] [address], [place] [address] Platelets (Bld) [#/Vol] 112 10*3/uL Low 150-450 [facility] Comment on above: Performed By: #### C BROOK[place]N, CMP ####[facility] ([id number])[address] [address] [place] [address] RBC COUNT 4.38 X10E12/L Normal 3.80-5.20 [facility] Comment on above: Performed By: #### C BROOKLYN, CMP ####[facility] ([id number])[address] [address] [place] [address], [place] [address] WBC (Bld) [#/Vol] 8.5 10*3/uL Normal 4.0-11.0 [facility] Comment on above: Performed By: #### C BROOKLYN, CMP ####[facility] ([id number])[address] [address] [place] [address] CBC auto differentialon 01-0 Basophils (Bld) [#/Vol] 0.0 10*3/uL [facility] Basophils/100 WBC (Bld) 0.4 % P [facility] Eosinophils (Bld) [#/Vol] 0.2 10*3/uL [facility] Eosinophils/100 WBC (Bld) 2.5 % [facility] Erythrocyte distribution width (RBC) [Ratio] 14.9 % 11.5 - 15.0 % [facility] Hematocrit (Bld) [Volume fraction] 37.0 % 35 - 47 % [facility] Hemoglobin (Bld) [Mass/Vol] 12.3 g/dL 11.7 - 15.5 g/dL [facility] Interpretation and review of laboratory results Abnormal [facility] Lymphocytes (Bld) [#/Vol] 0.5 10*3/uL Low [facility] Lymphocytes/100 WBC (Bld) 5.9 % [facility] MCH (RBC) [Entitic mass] 28.1 pg 27 - 34 pg [facility] MCHC (RBC) [Mass/Vol] 33.3 g/dL 32 - 3 6 g/dL [facility] MCV (RBC) [Entitic vol] 85 fL 80 - 100 fL [facility] Monocytes (Bld) [#/Vol] 0.7 10*3/uL [facility] Monocytes/100 WBC (Bld) 7.8 % P [facility] Neutrophils (Bld) [#/Vol] 7.1 10*3/uL High [facility] Neutrophils/100 WBC (Bld) 83.4 % [facility] Platelet mean volume (Bld) [Entitic vol] 9.6 fL 7 - 12 fL [facility] Platelets (Bld) [#/Vol] 112 10*3/uL Low [facility] RBC (Bld) [#/Vol] 4.38 10*6/uL [facility] WBC corrected for nucl RBC Auto (Bld) [#/Vol] 8.5 [facility] COMPREHENSIVE METABOLIC PANE Dennis 04-16-2023 Albumin [Mass/Vol] 2.8 g/dL Low 3.2-5.3 [facility] Comment on above: Performed By: #### C BCA, CMP ####[facility] ([id number])[address], [place] [address] ALP [Catalytic activity/Vol] 82 U/L Normal 39-130 [facility] Comment on above: Performed By: #### C BCA, CMP ####[facility] ([id number])[address], [place] [address] ALT [Catalytic activity/Vol] 75 U/L High 0-31 [facility] Comment on above: Performed By: #### C BCA, CMP ####[facility] ([id number])[address], [address], [place] [address] Anion gap [Moles/Vol] 10 mmol/L Normal 5-15 [facility] Comment on above: Performed By: #### C BCA, CMP ####[facility] ([id number])[address], [place] [address] AST [Catalytic activity/Vol] 29 U/L Normal 0-41 [facility] Comment on above: Performed By: #### C BCA, CMP ####[facility] ([id number])[address], [address], [place] [address] Bilirubin [Mass/Vol] 0.4 mg/dL Normal 0.3-1.2 [facility] Comment on above: Performed By: #### C BCA, CMP ####[facility] ([id number])[address], [place] [address] Calcium [Mass/Vol] 8.6 mg/dL Normal 8.5-10.5 [facility] Comment on above: Performed By: #### C BCA, CMP ####[facility] ([id number])[address], [address], [place] [address] Chloride [Moles/Vol] 107 mmol/L Normal 98-109 [facility] Comment on above: Performed By: #### C BCA, CMP ####[facility] ([id number])[address] [address] [place] [address] CO2 [Moles/Vol] 24 mmol/L Normal 22-32 [facility] Comment on above: Performed By: #### C BCA, CMP ####[facility] ([id number])[address] [address], [place] [address] Creatinine [Mass/Vol] 0.47 mg/dL Normal 0.40-1.00 [facility] Comment on above: Result Comment: METH OD TRACEABLE TO IDMS STANDARD Performed By: #### C BCA, CMP ####[facility] ([id number])[address] [address], [place] [address] eGFR (CKD-EPI) NON-RACE DEPENDENT >90 Normal >59 [facility] Comment on above: Result Comment: Repo rted eGFR is based on theCKD-EPI 2020 equation that doesnot use a race coefficient. Performed By: #### C BCA, CMP ####[facility] ([id number])[address] [address], [place] [address] Glucose [Mass/Vol] 152 mg/dL High 65-99 [facility] Comment on above: Performed By: #### C BCA, CMP ####[facility] ([id number])[address] [address], [place] [address] Potassium [Moles/Vol] 4.2 mmol/L Normal 3.5-5.0 [facility] Comment on above: Performed By: #### C BCA, CMP ####[facility] ([id number])[address] [address], [place] [address] Protein [Mass/Vol] 5.8 g/dL Low 6.0-8.0 [facility] Comment on above: Performed By: #### C BCA, CMP ####[facility] ([id number])[address], [address] [place] [address] Sodium [Moles/Vol] 141 mmol/L Normal 134-146 [facility] Comment on above: Performed By: #### C BCA, CMP ####[facility] ([id number])[address], [address] [place] [address] Urea nitrogen [Mass/Vol] 29 mg/dL High 5-27 [facility] Comment on above: Performed By: #### C BCA, CMP ####[facility] ([id number])[address], [address] [place] [address] Comprehensive metabolic pane dennis 04-16-2023 Albumin [Mass/Vol] 2.8 g/dL Low 3.2 - 5.3 g/dL [facility] ALP [Catalytic activity/Vol] 82 U/L 39 - 130 U/L [facility] ALT No additional P-5'-P [Catalytic activity/Vol] 75 U/L High 0 - 31 U/L [facility] Anion gap [Moles/Vol] 10 mmol/L 5 - 15 mmol/L [facility] AST [Catalytic activity/Vol] 29 U/L 0 - 41 U/L [facility] Bilirubin [Mass/Vol] 0.4 mg/dL 0.3 - 1 .2 mg/dL [facility] Calcium [Mass/Vol] 8.6 mg/dL 8.5 - 10. 5 mg/dL [facility] Chloride [Moles/Vol] 107 mmol/L 98 - 10 9 mmol/L [facility] CO2 [Moles/Vol] 24 mmol/L 22 - 32 mmol/L [facility] Creatinine [Mass/Vol] 0.47 mg/dL 0.40 - 1.00 mg/dL [facility] eGFR (CKD-EPI)non-race dependent - PINF [facility] Glucose [Mass/Vol] 152 mg/dL High 65 - 99 mg/dL [facility] Interpretation and review of laboratory results Abnormal [facility] Potassium [Moles/Vol] 4.2 mmol/L 3.5 - 5.0 mmol/L [facility] Protein [Mass/Vol] 5.8 g/dL Low 6.0 - 8.0 g/dL [facility] Sodium [Moles/Vol] 141 mmol/L 134 - 146 mmol/L [facility] Urea nitrogen [Mass/Vol] 29 mg/dL High 5 - 27 mg/dL [facility] Glucose Glucometer (BldC) [M ass/Vol]on 04-16-2023 Glucose [Mass/Vol] 141 mg/dL High 65-99 [facility] Glucose [Mass/Vol] 141 mg/dL High 65 - 99 mg/dL [facility] Interpretation and review of laboratory results Abnormal [facility] Glucose [Mass/Vol] 141 mg/dL High 65-99 [facility] Glucose [Mass/Vol] 141 mg/dL High 65 - 99 mg/dL [facility] Interpretation and review of laboratory results Abnormal [facility] Glucose [Mass/Vol] 156 mg/dL High 65 - 99 mg/dL [facility] Interpretation and review of laboratory results Abnormal [facility] Glucose [Mass/Vol] 156 mg/dL High 65-99 [facility] Glucose [Mass/Vol] 154 mg/dL High 65-99 [facility] CBC AND AUTO DIFFon 04-15-19 24 ABSOLUTE BASOPHIL 0.0 X10E9/L Normal 0.0-0.2 [facility] Comment on above: Performed By: #### C BCA, CMP ####[facility] ([id number])[address] [place] [address] ABSOLUTE NEUTROPHIL 7.8 X10E9/L High 1.5-6.6 [facility] Comment on above: Performed By: #### C BCA, CMP ####[facility] ([id number])[address] [place] [address] Basophils/100 WBC (Bld) 0.2 % Normal P [facility] Comment on above: Performed By: #### C BCA, CMP ####[facility] ([id number])[address] [address], [place] [address] Eosinophils (Bld) [#/Vol] 0.2 10*3/uL Normal 0.0-0.4 [facility] Comment on above: Performed By: #### C BCA, CMP ####[facility] ([id number])[address] [address], [place] [address] Eosinophils/100 WBC (Bld) 1.9 % Normal [facility] Comment on above: Performed By: #### C [place], CMP ####[facility] ([id number])[address] [address] Erythrocyte distribution width (RBC) [Ratio] 14.9 % Normal 11.5-15.0 [facility] Comment on above: Performed By: #### C BCA, CMP ####[facility] ([id number])[address] [address], [place] [address] Hematocrit (Bld) [Volume fraction] 34.4 % Low 35-47 [facility] Comment on above: Performed By: #### C BCA, CMP ####[facility] ([id number])[address] [address], [place] [address] Hemoglobin (Bld) [Mass/Vol] 11.6 g/dL Low 11.7-15.5 [facility] Comment on above: Performed By: #### C BCA, CMP ####[facility] ([id number])[address] [address] Lymphocytes (Bld) [#/Vol] 0.6 10*3/uL Low 1.0-3.5 [facility] Comment on above: Performed By: #### C BCA, CMP ####[facility] ([id number])[address] [place] [address] Lymphocytes/100 WBC (Bld) 6.8 % Normal [facility] Comment on above: Performed By: #### C BCA, CMP ####[facility] ([id number])[address] [address] MCH (RBC) [Entitic mass] 28.9 pg Normal 27-34 [facility] Comment on above: Performed By: #### C BCA, CMP ####[facility] ([id number])[address] [address] MCHC (RBC) [Mass/Vol] 33.7 g/dL Normal 32-36 [facility] Comment on above: Performed By: #### C BCA, CMP ####[facility] ([id number])[address] [address] MCV (RBC) [Entitic vol] 86 fL Normal 80-100 P [facility] Comment on above: Performed By: #### C BCA, CMP ####[facility] ([id number])[address] [place] [address] Monocytes (Bld) [#/Vol] 0.5 10*3/uL Normal 0-0.9 [facility] Comment on above: Performed By: #### C BCA, CMP ####[facility] ([id number])[address] [place] [address] Monocytes/100 WBC (Bld) 5.1 % Normal P [facility] Comment on above: Performed By: #### C BCA, CMP ####[facility] ([id number])[address] [address] [place] [address] Neutrophils/100 WBC (Bld) 86.0 % Normal [facility] Comment on above: Performed By: #### C BCA, CMP ####[facility] ([id number])[address] [address] Platelet mean volume (Bld) [Entitic vol] 9.7 fL Normal 7-12 [facility] Comment on above: Performed By: #### Batsheva BARAHONA, CMP ####[facility] ([id number])[address] [address] Platelets (Bld) [#/Vol] 124 10*3/uL Low 150-450 [facility] Comment on above: Performed By: #### Batsheva BARAHONA, CMP ####[facility] ([id number])[address] [address] RBC COUNT 4.01 X10E12/L Normal 3.80-5.20 [facility] Comment on above: Performed By: #### Batsheva BARAHONA, CMP ####[facility] ([id number])[address] [address] WBC (Bld) [#/Vol] 9.0 10*3/uL Normal 4.0-11.0 [facility] Comment on above: Performed By: #### Batsheva BARAHONA, CMP ####[facility] ([id number])[address] [address] CBC auto differentialon Basophils (Bld) [#/Vol] 0.0 10*3/uL [facility] Basophils/100 WBC (Bld) 0.2 % P [facility] Eosinophils (Bld) [#/Vol] 0.2 10*3/uL [facility] Eosinophils/100 WBC (Bld) 1.9 % [facility] Erythrocyte distribution width (RBC) [Ratio] 14.9 % 11.5 - 15.0 % [facility] Hematocrit (Bld) [Volume fraction] 34.4 % Low 35 - 47 % [facility] Hemoglobin (Bld) [Mass/Vol] 11.6 g/dL Low 11.7 - 15.5 g/dL [facility] Interpretation and review of laboratory results Abnormal [facility] Lymphocytes (Bld) [#/Vol] 0.6 10*3/uL Low [facility] Lymphocytes/100 WBC (Bld) 6.8 % [facility] MCH (RBC) [Entitic mass] 28.9 pg 27 - 34 pg [facility] MCHC (RBC) [Mass/Vol] 33.7 g/dL 32 - 3 6 g/dL [facility] MCV (RBC) [Entitic vol] 86 fL 80 - 100 fL [facility] Monocytes (Bld) [#/Vol] 0.5 10*3/uL [facility] Monocytes/100 WBC (Bld) 5.1 % P [facility] Neutrophils (Bld) [#/Vol] 7.8 10*3/uL High [facility] Neutrophils/100 WBC (Bld) 86.0 % [facility] Platelet mean volume (Bld) [Entitic vol] 9.7 fL 7 - 12 fL [facility] Platelets (Bld) [#/Vol] 124 10*3/uL Low [facility] RBC (Bld) [#/Vol] 4.01 10*6/uL [facility] WBC corrected for nucl RBC Auto (Bld) [#/Vol] 9.0 [facility] COMPREHENSIVE METABOLIC PANE Dennis 04-15-2023 Albumin [Mass/Vol] 2.8 g/dL Low 3.2-5.3 [facility] Comment on above: Performed By: #### C BCA, CMP ####[facility] ([id number])[address], [place] [address] ALP [Catalytic activity/Vol] 87 U/L Normal 39-130 [facility] Comment on above: Performed By: #### C BCA, CMP ####[facility] ([id number])[address] [place] [address] ALT [Catalytic activity/Vol] 89 U/L High 0-31 [facility] Comment on above: Performed By: #### C BCA, CMP ####[facility] ([id number])[address], [address], [place] [address] Anion gap [Moles/Vol] 9 mmol/L Normal 5-15 [facility] Comment on above: Performed By: #### C BCA, CMP ####[facility] ([id number])[address], [place] [address] AST [Catalytic activity/Vol] 44 U/L High 0-41 [facility] Comment on above: Performed By: #### C BCA, CMP ####[facility] ([id number])[address], [address], [place] [address] Bilirubin [Mass/Vol] 0.4 mg/dL Normal 0.3-1.2 [facility] Comment on above: Performed By: #### C BCA, CMP ####[facility] ([id number])[address], [address], [place] [address] Calcium [Mass/Vol] 8.5 mg/dL Normal 8.5-10.5 [facility] Comment on above: Performed By: #### C BCA, CMP ####[facility] ([id number])[address], [address], [place] [address] Chloride [Moles/Vol] 107 mmol/L Normal 98-109 [facility] Comment on above: Performed By: #### C BCA, CMP ####[facility] ([id number])[address], [address], [place] [address] CO2 [Moles/Vol] 24 mmol/L Normal 22-32 [facility] Comment on above: Performed By: #### C BCA, CMP ####[facility] ([id number])[address], [place] [address] Creatinine [Mass/Vol] 0.48 mg/dL Normal 0.40-1.00 [facility] Comment on above: Result Comment: METH OD TRACEABLE TO IDMS STANDARD Performed By: #### C BCA, CMP ####[facility] ([id number])[address], [address], [place] [address] eGFR (CKD-EPI) NON-RACE DEPENDENT >90 Normal >59 [facility] Comment on above: Result Comment: Repo rted eGFR is based on theCKD-EPI 2020 equation that doesnot use a race coefficient. Performed By: #### C BCA, CMP ####[facility] ([id number])[address] [address] [place] [address] Glucose [Mass/Vol] 136 mg/dL High 65-99 [facility] Comment on above: Performed By: #### C BCA, CMP ####[facility] ([id number])[address] [address] [place] [address] Potassium [Moles/Vol] 3.8 mmol/L Normal 3.5-5.0 [facility] Comment on above: Performed By: #### C BCA, CMP ####[facility] ([id number])[address] [address], [place] [address] Protein [Mass/Vol] 5.8 g/dL Low 6.0-8.0 [facility] Comment on above: Performed By: #### C BCA, CMP ####[facility] ([id number])[address] [address] [place] [address] Sodium [Moles/Vol] 140 mmol/L Normal 134-146 [facility] Comment on above: Performed By: #### C BCA, CMP ####[facility] ([id number])[address] [address] [place] [address] Urea nitrogen [Mass/Vol] 27 mg/dL Normal 5-27 [facility] Comment on above: Performed By: #### C BCA, CMP ####[facility] ([id number])[address] [facility], [address] [place] [address] Comprehensive metabolic pane dennis 04-15-2023 Albumin [Mass/Vol] 2.8 g/dL Low 3.2 - 5.3 g/dL [facility] ALP [Catalytic activity/Vol] 87 U/L 39 - 130 U/L [facility] ALT No additional P-5'-P [Catalytic activity/Vol] 89 U/L High 0 - 31 U/L [facility] Anion gap [Moles/Vol] 9 mmol/L 5 - 15 mmol/L [facility] AST [Catalytic activity/Vol] 44 U/L High 0 - 41 U/L [facility] Bilirubin [Mass/Vol] 0.4 mg/dL 0.3 - 1 .2 mg/dL [facility] Calcium [Mass/Vol] 8.5 mg/dL 8.5 - 10. 5 mg/dL [facility] Chloride [Moles/Vol] 107 mmol/L 98 - 10 9 mmol/L [facility] CO2 [Moles/Vol] 24 mmol/L 22 - 32 mmol/L [facility] Creatinine [Mass/Vol] 0.48 mg/dL 0.40 - 1.00 mg/dL [facility] eGFR (CKD-EPI)non-race dependent - PINF [facility] Glucose [Mass/Vol] 136 mg/dL High 65 - 99 mg/dL [facility] Interpretation and review of laboratory results Abnormal [facility] Potassium [Moles/Vol] 3.8 mmol/L 3.5 - 5.0 mmol/L [facility] Protein [Mass/Vol] 5.8 g/dL Low 6.0 - 8.0 g/dL [facility] Sodium [Moles/Vol] 140 mmol/L 134 - 146 mmol/L [facility] Urea nitrogen [Mass/Vol] 27 mg/dL 5 - 27 mg/dL [facility] Glucose Glucometer (BldC) [M ass/Vol]on 04-15-2023 Glucose [Mass/Vol] 154 mg/dL High 65 - 99 mg/dL [facility] Interpretation and review of laboratory results Abnormal [facility] Glucose [Mass/Vol] 128 mg/dL High 65-99 [facility] Glucose [Mass/Vol] 128 mg/dL High 65 - 99 mg/dL [facility] Interpretation and review of laboratory results Abnormal [facility] Glucose [Mass/Vol] 106 mg/dL High 65-99 [facility] Glucose [Mass/Vol] 106 mg/dL High 65 - 99 mg/dL [facility] Interpretation and review of laboratory results Abnormal [facility] Glucose [Mass/Vol] 143 mg/dL High 65-99 [facility] Glucose [Mass/Vol] 143 mg/dL High 65 - 99 mg/dL [facility] Interpretation and review of laboratory results Abnormal [facility] Glucose [Mass/Vol] 172 mg/dL High 65-99 [facility] CBC AND AUTO DIFFon 04-14-19 24 ABSOLUTE BASOPHIL 0.0 X10E9/L Normal 0.0-0.2 [facility] Comment on above: Performed By: #### C MP, CBCA ####[facility] ([id number])[address], [address] [place] [address] ABSOLUTE NEUTROPHIL 8.1 X10E9/L High 1.5-6.6 [facility] Comment on above: Performed By: #### C MP, CBCA ####[facility] ([id number])[address], [address], [place] [address] Basophils/100 WBC (Bld) 0.1 % Normal P [facility] Comment on above: Performed By: #### C MP, CBCA ####[facility] ([id number])[address], [address] [place] [address] Eosinophils (Bld) [#/Vol] 0.2 10*3/uL Normal 0.0-0.4 [facility] Comment on above: Performed By: #### C MP, CBCA ####[facility] ([id number])[address] [address] [place] [address] Eosinophils/100 WBC (Bld) 2.3 % Normal [facility] Comment on above: Performed By: #### C MP, CBCA ####[facility] ([id number])[address], [address], [place] [address] Erythrocyte distribution width (RBC) [Ratio] 14.4 % Normal 11.5-15.0 [facility] Comment on above: Performed By: #### C MP, CBCA ####[facility] ([id number])[address] [place] [address] Hematocrit (Bld) [Volume fraction] 35.0 % Normal 35-47 [facility] Comment on above: Performed By: #### C MP, CBCA ####[facility] ([id number])[address] [address] [place] [address] Hemoglobin (Bld) [Mass/Vol] 11.7 g/dL Normal 11.7-15.5 [facility] Comment on above: Performed By: #### C MP, CBCA ####[facility] ([id number])[address] [address] [place] [address] Lymphocytes (Bld) [#/Vol] 0.7 10*3/uL Low 1.0-3.5 [facility] Comment on above: Performed By: #### C MP, CBCA ####[facility] ([id number])[address] [address] [place] [address] Lymphocytes/100 WBC (Bld) 7.8 % Normal [facility] Comment on above: Performed By: #### C MP, CBCA ####[facility] ([id number])[address] [address] [place] [address] MCH (RBC) [Entitic mass] 28.9 pg Normal 27-34 [facility] Comment on above: Performed By: #### C MP, CBCA ####[facility] ([id number])[address], [place] [address] MCHC (RBC) [Mass/Vol] 33.5 g/dL Normal 32-36 [facility] Comment on above: Performed By: #### C MP, CBCA ####[facility] ([id number])[address], [place] [address] MCV (RBC) [Entitic vol] 86 fL Normal 80-100 [facility] Comment on above: Performed By: #### C MP, CBCA ####[facility] ([id number])[address] [address], [place] [address] Monocytes (Bld) [#/Vol] 0.4 10*3/uL Normal 0-0.9 [facility] Comment on above: Performed By: #### C MP, CBCA ####[facility] ([id number])[address] [address], [place] [address] Monocytes/100 WBC (Bld) 4.6 % Normal [facility] Comment on above: Performed By: #### C MP, CBCA ####[facility] ([id number])[address] [address] [address] Neutrophils/100 WBC (Bld) 85.2 % Normal [facility] Comment on above: Performed By: #### C MP, CBCA ####[facility] ([id number])[address] [place] [address] Platelet mean volume (Bld) [Entitic vol] 9.3 fL Normal 7-12 [facility] Comment on above: Performed By: #### C MP, CBCA ####[facility] ([id number])[address] [address] Platelets (Bld) [#/Vol] 94 10*3/uL Low 150-450 [facility] Comment on above: Performed By: #### C MP, CBCA ####[facility] ([id number])[address] [address] RBC COUNT 4.06 X10E12/L Normal 3.80-5.20 [facility] Comment on above: Performed By: #### C MP, CBCA ####[facility] ([id number])[address] [address] WBC (Bld) [#/Vol] 9.5 10*3/uL Normal 4.0-11.0 [facility] Comment on above: Performed By: #### C MP, CBCA ####[facility] ([id number])[address] [address] CBC auto differentialon Basophils (Bld) [#/Vol] 0.0 10*3/uL [facility] Basophils/100 WBC (Bld) 0.1 % [facility] Eosinophils (Bld) [#/Vol] 0.2 10*3/uL [facility] Eosinophils/100 WBC (Bld) 2.3 % [facility] Erythrocyte distribution width (RBC) [Ratio] 14.4 % 11.5 - 15.0 % [facility] Hematocrit (Bld) [Volume fraction] 35.0 % 35 - 47 % [facility] Hemoglobin (Bld) [Mass/Vol] 11.7 g/dL 11.7 - 15.5 g/dL [facility] Interpretation and review of laboratory results Abnormal [facility] Lymphocytes (Bld) [#/Vol] 0.7 10*3/uL Low [facility] Lymphocytes/100 WBC (Bld) 7.8 % [facility] MCH (RBC) [Entitic mass] 28.9 pg 27 - 34 pg [facility] MCHC (RBC) [Mass/Vol] 33.5 g/dL 32 - 3 6 g/dL [facility] MCV (RBC) [Entitic vol] 86 fL 80 - 100 fL [facility] Monocytes (Bld) [#/Vol] 0.4 10*3/uL [facility] Monocytes/100 WBC (Bld) 4.6 % P [facility] Neutrophils (Bld) [#/Vol] 8.1 10*3/uL High [facility] Neutrophils/100 WBC (Bld) 85.2 % [facility] Platelet mean volume (Bld) [Entitic vol] 9.3 fL 7 - 12 fL [facility] Platelets (Bld) [#/Vol] 94 10*3/uL Low P [facility] RBC (Bld) [#/Vol] 4.06 10*6/uL [facility] WBC corrected for nucl RBC Auto (Bld) [#/Vol] 9.5 [facility] COMPREHENSIVE METABOLIC PANE Dennis 04-14-2023 Albumin [Mass/Vol] 2.9 g/dL Low 3.2-5.3 [facility] Comment on above: Performed By: #### C GUMARO CBCA ####[facility] ([id number])[address] [address] ALP [Catalytic activity/Vol] 85 U/L Normal 39-130 [facility] Comment on above: Performed By: #### C GUMARO CBCA ####[facility] ([id number])[address], [address] [place] [address] ALT [Catalytic activity/Vol] 76 U/L High 0-31 [facility] Comment on above: Performed By: #### C GUMARO CBCA ####[facility] ([id number])[address], [address] [address] Anion gap [Moles/Vol] 10 mmol/L Normal 5-15 [facility] Comment on above: Performed By: #### C GUMARO CBCA ####[facility] ([id number])[address], [place] [address] AST [Catalytic activity/Vol] 35 U/L Normal 0-41 [facility] Comment on above: Performed By: #### C GUMARO CBCA ####[facility] ([id number])[address] [address], [place] [address] Bilirubin [Mass/Vol] 0.4 mg/dL Normal 0.3-1.2 [facility] Comment on above: Performed By: #### C GUMARO CBCA ####[facility] ([id number])[address] [address], [place] [address] Calcium [Mass/Vol] 8.5 mg/dL Normal 8.5-10.5 [facility] Comment on above: Performed By: #### C GUMARO CBCRey ####[facility] ([id number])[address] [address], [place] [address] Chloride [Moles/Vol] 112 mmol/L High 98-109 [facility] Comment on above: Performed By: #### C JA NAIK ####[facility] ([id number])[address] [address], [place] [address] CO2 [Moles/Vol] 23 mmol/L Normal 22-32 [facility] Comment on above: Performed By: #### C GUMARO CBCRey ####[facility] ([id number])[address] [address], [place] [address] Creatinine [Mass/Vol] 0.50 mg/dL Normal 0.40-1.00 [facility] Comment on above: Result Comment: METH OD TRACEABLE TO IDMS STANDARD Performed By: #### C GUMARO CBCA ####[facility] ([id number])[address] [address], [place] [address] eGFR (CKD-EPI) NON-RACE DEPENDENT >90 Normal >59 [facility] Comment on above: Result Comment: Repo rted eGFR is based on theD-EPI 2020 equation that doesnot use a race coefficient. Performed By: #### C JA NAIK ####[facility] ([id number])[address], [place] [address] Glucose [Mass/Vol] 148 mg/dL High 65-99 [facility] Comment on above: Performed By: #### C GUMARO CBCA ####[facility] ([id number])[address] [address], [place] [address] Potassium [Moles/Vol] 3.5 mmol/L Normal 3.5-5.0 [facility] Comment on above: Performed By: #### C JA NAIK ####[facility] ([id number])[address] [address], [place] [address] Protein [Mass/Vol] 5.9 g/dL Low 6.0-8.0 [facility] Comment on above: Performed By: #### C JA NAIK ####[facility] ([id number])[address] [address], [place] [address] Sodium [Moles/Vol] 145 mmol/L Normal 134-146 [facility] Comment on above: Performed By: #### JA Herman MP ####[facility] ([id number])[address] [address] [place] [address], [place] [address] Urea nitrogen [Mass/Vol] 24 mg/dL Normal 5-27 [facility] Comment on above: Performed By: #### C GUMARO CBCA ####[facility] ([id number])[address] [address] [place] [address] Comprehensive metabolic pane dennis 04-14-2023 Albumin [Mass/Vol] 2.9 g/dL Low 3.2 - 5.3 g/dL [facility] ALP [Catalytic activity/Vol] 85 U/L 39 - 130 U/L [facility] ALT No additional P-5'-P [Catalytic activity/Vol] 76 U/L High 0 - 31 U/L [facility] Anion gap [Moles/Vol] 10 mmol/L 5 - 15 mmol/L [facility] AST [Catalytic activity/Vol] 35 U/L 0 - 41 U/L [facility] Bilirubin [Mass/Vol] 0.4 mg/dL 0.3 - 1 .2 mg/dL [facility] Calcium [Mass/Vol] 8.5 mg/dL 8.5 - 10. 5 mg/dL [facility] Chloride [Moles/Vol] 112 mmol/L High 98 - 10 9 mmol/L [facility] CO2 [Moles/Vol] 23 mmol/L 22 - 32 mmol/L [facility] Creatinine [Mass/Vol] 0.50 mg/dL 0.40 - 1.00 mg/dL [facility] eGFR (CKD-EPI)non-race dependent - PINF [facility] Glucose [Mass/Vol] 148 mg/dL High 65 - 99 mg/dL [facility] Interpretation and review of laboratory results Abnormal [facility] Potassium [Moles/Vol] 3.5 mmol/L 3.5 - 5.0 mmol/L [facility] Protein [Mass/Vol] 5.9 g/dL Low 6.0 - 8.0 g/dL [facility] Sodium [Moles/Vol] 145 mmol/L 134 - 146 mmol/L [facility] Urea nitrogen [Mass/Vol] 24 mg/dL 5 - 27 mg/dL [facility] ECG 12 leadon 04-14-2023 TRACEMASTERVUE [facility] Glucose Glucometer (BldC) [M ass/Vol]on 04-14-2023 Glucose [Mass/Vol] 172 mg/dL High 65 - 99 mg/dL [facility] Interpretation and review of laboratory results Abnormal [facility] Glucose [Mass/Vol] 111 mg/dL High 65-99 [facility] Glucose [Mass/Vol] 111 mg/dL High 65 - 99 mg/dL [facility] Interpretation and review of laboratory results Abnormal [facility] CBC AND AUTO DIFFon 04-13-19 24 ABSOLUTE BASOPHIL 0.0 X10E9/L Normal 0.0-0.2 [facility] Comment on above: Performed By: #### C BROOKLYN, CMP ####[facility] ([id number])[address], [place] [address] ABSOLUTE NEUTROPHIL 9.2 X10E9/L High 1.5-6.6 [facility] Comment on above: Performed By: #### C BROOK[place]N, CMP ####[facility] ([id number])[address] [place] [address] Basophils/100 WBC (Bld) 0.1 % Normal [facility] Comment on above: Performed By: #### C BROOK[place]N, CMP ####[facility] ([id number])[address] [place] [address] Eosinophils (Bld) [#/Vol] 0.2 10*3/uL Normal 0.0-0.4 [facility] Comment on above: Performed By: #### C BROOK[place]N, CMP ####[facility] ([id number])[address], [place] [address] Eosinophils/100 WBC (Bld) 1.6 % Normal [facility] Comment on above: Performed By: #### C BROOK[place]N, CMP ####[facility] ([id number])[address] [place] [address] Erythrocyte distribution width (RBC) [Ratio] 14.9 % Normal 11.5-15.0 [facility] Comment on above: Performed By: #### C BROOKLYN, CMP ####[facility] ([id number])[address], [place] [address] Hematocrit (Bld) [Volume fraction] 34.4 % Low 35-47 [facility] Comment on above: Performed By: #### C BCA, CMP ####[facility] ([id number])[address] [place] [address] Hemoglobin (Bld) [Mass/Vol] 11.5 g/dL Low 11.7-15.5 [facility] Comment on above: Performed By: #### C BCA, CMP ####[facility] ([id number])[address] [address] Lymphocytes (Bld) [#/Vol] 0.8 10*3/uL Low 1.0-3.5 [facility] Comment on above: Performed By: #### C BCA, CMP ####[facility] ([id number])[address] [address], [place] [address] Lymphocytes/100 WBC (Bld) 7.1 % Normal [facility] Comment on above: Performed By: #### C BCA, CMP ####[facility] [facility] ([id number])[address] [address], [place] [address] MCH (RBC) [Entitic mass] 28.8 pg Normal 27-34 [facility] Comment on above: Performed By: #### C BCA, CMP ####[facility] ([id number])[address] [address] [place] [address] MCHC (RBC) [Mass/Vol] 33.4 g/dL Normal 32-36 [facility] Comment on above: Performed By: #### C BCA, CMP ####[facility] ([id number])[address] [place] [address] MCV (RBC) [Entitic vol] 86 fL Normal 80-100 [facility] Comment on above: Performed By: #### C BCA, CMP ####[facility] ([id number])[address], [address] [place] [address] Monocytes (Bld) [#/Vol] 0.5 10*3/uL Normal 0-0.9 [facility] Comment on above: Performed By: #### C [place], CMP ####[facility] ([id number])[address], [address], [place] [address] Monocytes/100 WBC (Bld) 5.1 % Normal P [facility] Comment on above: Performed By: #### C BCA, CMP ####[facility] ([id number])[address], [address] [place] [address] Neutrophils/100 WBC (Bld) 86.1 % Normal [facility] Comment on above: Performed By: #### C [place], CMP ####[facility] ([id number])[address], [address] [place] [address] Platelet mean volume (Bld) [Entitic vol] 9.7 fL Normal 7-12 [facility] Comment on above: Performed By: #### C BCA, CMP ####[facility] ([id number])[address], [address], [place] [address] Platelets (Bld) [#/Vol] 91 10*3/uL Low 150-450 P [facility] Comment on above: Performed By: #### C BCA, CMP ####[facility] ([id number])[address] [address], [place] [address] RBC COUNT 3.99 X10E12/L Normal 3.80-5.20 [facility] Comment on above: Performed By: #### C BCA, CMP ####[facility] ([id number])[address] [address], [place] [address] WBC (Bld) [#/Vol] 10.7 10*3/uL Normal 4.0-11.0 [facility] Comment on above: Performed By: #### C BCA, CMP ####[facility] ([id number])[address] [facility] [address] [place] [address] CBC auto differentialon Basophils (Bld) [#/Vol] 0.0 10*3/uL [facility] Basophils/100 WBC (Bld) 0.1 % [facility] Eosinophils (Bld) [#/Vol] 0.2 10*3/uL [facility] Eosinophils/100 WBC (Bld) 1.6 % [facility] Erythrocyte distribution width (RBC) [Ratio] 14.9 % 11.5 - 15.0 % [facility] Hematocrit (Bld) [Volume fraction] 34.4 % Low 35 - 47 % [facility] Hemoglobin (Bld) [Mass/Vol] 11.5 g/dL Low 11.7 - 15.5 g/dL [facility] Interpretation and review of laboratory results Abnormal [facility] Lymphocytes (Bld) [#/Vol] 0.8 10*3/uL Low [facility] Lymphocytes/100 WBC (Bld) 7.1 % [facility] MCH (RBC) [Entitic mass] 28.8 pg 27 - 34 pg [facility] MCHC (RBC) [Mass/Vol] 33.4 g/dL 32 - 3 6 g/dL [facility] MCV (RBC) [Entitic vol] 86 fL 80 - 100 fL [facility] Monocytes (Bld) [#/Vol] 0.5 10*3/uL [facility] Monocytes/100 WBC (Bld) 5.1 % [facility] Neutrophils (Bld) [#/Vol] 9.2 10*3/uL High [facility] Neutrophils/100 WBC (Bld) 86.1 % [facility] Platelet mean volume (Bld) [Entitic vol] 9.7 fL 7 - 12 fL [facility] Platelets (Bld) [#/Vol] 91 10*3/uL Low P [facility] RBC (Bld) [#/Vol] 3.99 10*6/uL [facility] WBC corrected for nucl RBC Auto (Bld) [#/Vol] 10.7 [facility] COMPREHENSIVE METABOLIC PANE Dennis 04-13-2023 Albumin [Mass/Vol] 2.8 g/dL Low 3.2-5.3 [facility] Comment on above: Performed By: #### C BCA, CMP ####[facility] ([id number])[address], [address], [place] [address] ALP [Catalytic activity/Vol] 88 U/L Normal 39-130 [facility] Comment on above: Performed By: #### C BCA, CMP ####[facility] ([id number])[address], [address] [place] [address] ALT [Catalytic activity/Vol] 74 U/L High 0-31 [facility] Comment on above: Performed By: #### C BCA, CMP ####[facility] ([id number])[address], [address], [place] [address] Anion gap [Moles/Vol] 8 mmol/L Normal 5-15 [facility] Comment on above: Performed By: #### C BCA, CMP ####[facility] ([id number])[address], [address], [place] [address] AST [Catalytic activity/Vol] 28 U/L Normal 0-41 [facility] Comment on above: Performed By: #### C BCA, CMP ####[facility] ([id number])[address], [address], [place] [address] Bilirubin [Mass/Vol] 0.5 mg/dL Normal 0.3-1.2 [facility] Comment on above: Performed By: #### C BCA, CMP ####[facility] ([id number])[address], [address], [place] [address] Calcium [Mass/Vol] 8.5 mg/dL Normal 8.5-10.5 [facility] Comment on above: Performed By: #### C BCA, CMP ####[facility] ([id number])[address] [address] [place] [address] Chloride [Moles/Vol] 117 mmol/L High 98-109 [facility] Comment on above: Performed By: #### C BCA, CMP ####[facility] ([id number])[address] [address] [place] [address] CO2 [Moles/Vol] 24 mmol/L Normal 22-32 [facility] Comment on above: Performed By: #### C BCA, CMP ####[facility] ([id number])[address] [address], [place] [address] Creatinine [Mass/Vol] 0.58 mg/dL Normal 0.40-1.00 [facility] Comment on above: Result Comment: METH OD TRACEABLE TO IDMS STANDARD Performed By: #### C BCA, CMP ####[facility] ([id number])[address] [address], [place] [address] eGFR (CKD-EPI) NON-RACE DEPENDENT >90 Normal >59 [facility] Comment on above: Result Comment: Repo rted eGFR is based on theCKD-EPI 2020 equation that doesnot use a race coefficient. Performed By: #### C BCA, CMP ####[facility] ([id number])[address] [address] [place] [address] Glucose [Mass/Vol] 133 mg/dL High 65-99 [facility] Comment on above: Performed By: #### C BCA, CMP ####[facility] ([id number])[address] [address] [place] [address] Potassium [Moles/Vol] 3.7 mmol/L Normal 3.5-5.0 [facility] Comment on above: Performed By: #### C BCA, CMP ####[facility] ([id number])[address] [address], [place] [address] Protein [Mass/Vol] 6.0 g/dL Normal 6.0-8.0 [facility] Comment on above: Performed By: #### C BCA, CMP ####[facility] ([id number])[address], [address], [place] [address] Sodium [Moles/Vol] 149 mmol/L High 134-146 [facility] Comment on above: Performed By: #### C BCA, CMP ####[facility] ([id number])[address], [address] [place] [address] Urea nitrogen [Mass/Vol] 27 mg/dL Normal 5-27 [facility] Comment on above: Performed By: #### C BCA, CMP ####[facility] ([id number])[address], [address] [place] [address] Comprehensive metabolic pane dennis 04-13-2023 Albumin [Mass/Vol] 2.8 g/dL Low 3.2 - 5.3 g/dL [facility] ALP [Catalytic activity/Vol] 88 U/L 39 - 130 U/L [facility] ALT No additional P-5'-P [Catalytic activity/Vol] 74 U/L High 0 - 31 U/L [facility] Anion gap [Moles/Vol] 8 mmol/L 5 - 15 mmol/L [facility] AST [Catalytic activity/Vol] 28 U/L 0 - 41 U/L [facility] Bilirubin [Mass/Vol] 0.5 mg/dL 0.3 - 1 .2 mg/dL [facility] Calcium [Mass/Vol] 8.5 mg/dL 8.5 - 10. 5 mg/dL [facility] Chloride [Moles/Vol] 117 mmol/L High 98 - 10 9 mmol/L [facility] CO2 [Moles/Vol] 24 mmol/L 22 - 32 mmol/L [facility] Creatinine [Mass/Vol] 0.58 mg/dL 0.40 - 1.00 mg/dL [facility] eGFR (CKD-EPI)non-race dependent - PINF [facility] Glucose [Mass/Vol] 133 mg/dL High 65 - 99 mg/dL [facility] Interpretation and review of laboratory results Abnormal [facility] Potassium [Moles/Vol] 3.7 mmol/L 3.5 - 5.0 mmol/L [facility] Protein [Mass/Vol] 6.0 g/dL 6.0 - 8.0 g/dL [facility] Sodium [Moles/Vol] 149 mmol/L High 134 - 146 mmol/L [facility] Urea nitrogen [Mass/Vol] 27 mg/dL 5 - 27 mg/dL [facility] ELECTROLYTESon 04-13-2023 Anion gap [Moles/Vol] 10 mmol/L Normal 5-15 [facility] Comment on above: Performed By: #### E LEC ####[facility] ([id number])[address], [address], [place] [address] Chloride [Moles/Vol] 114 mmol/L High 98-109 [facility] Comment on above: Performed By: #### E LEC ####[facility] ([id number])[address], [address], [place] [address] CO2 [Moles/Vol] 24 mmol/L Normal 22-32 [facility] Comment on above: Performed By: #### E LEC ####[facility] ([id number])[address], [address] [place] [address] Potassium [Moles/Vol] 3.6 mmol/L Normal 3.5-5.0 [facility] Comment on above: Performed By: #### E LEC ####[facility] ([id number])[address], [address] [place] [address] Sodium [Moles/Vol] 148 mmol/L High 134-146 [facility] Comment on above: Performed By: #### E LEC ####[facility] ([id number])[address], [address], [place] [address] Electrolyte panelon 04-13-19 24 Anion gap [Moles/Vol] 10 mmol/L 5 - 15 mmol/L [facility] Chloride [Moles/Vol] 114 mmol/L High 98 - 10 9 mmol/L [facility] CO2 [Moles/Vol] 24 mmol/L 22 - 32 mmol/L [facility] Interpretation and review of laboratory results Abnormal [facility] Potassium [Moles/Vol] 3.6 mmol/L 3.5 - 5.0 mmol/L [facility] Sodium [Moles/Vol] 148 mmol/L High 134 - 146 mmol/L [facility] CBC AND AUTO DIFFon 04-12-19 24 ABSOLUTE BASOPHIL 0.0 X10E9/L Normal 0.0-0.2 [facility] Comment on above: Performed By: #### C BCA ####[facility] ([id number])[address] [address] ABSOLUTE NEUTROPHIL 11.1 X10E9/L High 1.5-6.6 [facility] Comment on above: Performed By: #### C BCA ####[facility] ([id number])[address] [address] Basophils/100 WBC (Bld) 0.2 % Normal [facility] Comment on above: Performed By: #### C BCA ####[facility] ([id number])[address] [address] Eosinophils (Bld) [#/Vol] 0.3 10*3/uL Normal 0.0-0.4 [facility] Comment on above: Performed By: #### C BCA ####[facility] ([id number])[address] [address] Eosinophils/100 WBC (Bld) 2.6 % Normal [facility] Comment on above: Performed By: #### C BCA ####[facility] ([id number])[address], [address], [place] [address] Erythrocyte distribution width (RBC) [Ratio] 15.1 % High 11.5-15.0 [facility] Comment on above: Performed By: #### C BCA ####[facility] ([id number])[address], [address], [place] [address] Hematocrit (Bld) [Volume fraction] 32.7 % Low 35-47 [facility] Comment on above: Performed By: #### C BCA ####[facility] ([id number])[address], [address], [place] [address] Hemoglobin (Bld) [Mass/Vol] 10.8 g/dL Low 11.7-15.5 [facility] Comment on above: Performed By: #### C BCA ####[facility] ([id number])[address] [address], [place] [address] Lymphocytes (Bld) [#/Vol] 0.8 10*3/uL Low 1.0-3.5 [facility] Comment on above: Performed By: #### C BCA ####[facility] ([id number])[address], [address], [place] [address] Lymphocytes/100 WBC (Bld) 6.6 % Normal [facility] Comment on above: Performed By: #### C BCA ####[facility] ([id number])[address], [address], [place] [address] MCH (RBC) [Entitic mass] 28.7 pg Normal 27-34 [facility] Comment on above: Performed By: #### C BCA ####[facility] ([id number])[address], [address], [place] [address] MCHC (RBC) [Mass/Vol] 33.1 g/dL Normal 32-36 [facility] Comment on above: Performed By: #### C BCA ####[facility] ([id number])[address], [address], [place] [address] MCV (RBC) [Entitic vol] 87 fL Normal 80-100 P [facility] Comment on above: Performed By: #### C BCA ####[facility] ([id number])[address], [address], [place] [address] Monocytes (Bld) [#/Vol] 0.5 10*3/uL Normal 0-0.9 [facility] Comment on above: Performed By: #### C BCA ####[facility] ([id number])[address], [address], [place] [address] Monocytes/100 WBC (Bld) 4.1 % Normal [facility] Comment on above: Performed By: #### C BCA ####[facility] ([id number])[address], [address], [place] [address] Neutrophils/100 WBC (Bld) 86.5 % Normal [facility] Comment on above: Performed By: #### C BCA ####[facility] ([id number])[address], [address], [place] [address] Platelet mean volume (Bld) [Entitic vol] 10.2 fL Normal 7-12 [facility] Comment on above: Performed By: #### C BCA ####[facility] ([id number])[address], [address], [place] [address] Platelets (Bld) [#/Vol] 92 10*3/uL Low 150-450 P [facility] Comment on above: Performed By: #### C BCA ####[facility] ([id number])[address], [address], [place] [address] RBC COUNT 3.78 X10E12/L Low 3.80-5.20 [facility] Comment on above: Performed By: #### C BCA ####[facility] ([id number])[address], [address], [place] [address] WBC (Bld) [#/Vol] 12.9 10*3/uL High 4.0-11.0 [facility] Comment on above: Performed By: #### C BCA ####[facility] ([id number])[address], [address], [place] [address] CBC auto differentialon Basophils (Bld) [#/Vol] 0.0 10*3/uL [facility] Basophils/100 WBC (Bld) 0.2 % P [facility] Eosinophils (Bld) [#/Vol] 0.3 10*3/uL [facility] Eosinophils/100 WBC (Bld) 2.6 % [facility] Erythrocyte distribution width (RBC) [Ratio] 15.1 % High 11.5 - 15.0 % [facility] Hematocrit (Bld) [Volume fraction] 32.7 % Low 35 - 47 % [facility] Hemoglobin (Bld) [Mass/Vol] 10.8 g/dL Low 11.7 - 15.5 g/dL [facility] Interpretation and review of laboratory results Abnormal [facility] Lymphocytes (Bld) [#/Vol] 0.8 10*3/uL Low [facility] Lymphocytes/100 WBC (Bld) 6.6 % [facility] MCH (RBC) [Entitic mass] 28.7 pg 27 - 34 pg [facility] MCHC (RBC) [Mass/Vol] 33.1 g/dL 32 - 3 6 g/dL [facility] MCV (RBC) [Entitic vol] 87 fL 80 - 100 fL [facility] Monocytes (Bld) [#/Vol] 0.5 10*3/uL [facility] Monocytes/100 WBC (Bld) 4.1 % P [facility] Neutrophils (Bld) [#/Vol] 11.1 10*3/uL High [facility] Neutrophils/100 WBC (Bld) 86.5 % [facility] Platelet mean volume (Bld) [Entitic vol] 10.2 fL 7 - 12 fL [facility] Platelets (Bld) [#/Vol] 92 10*3/uL Low P [facility] RBC (Bld) [#/Vol] 3.78 10*6/uL Low [facility] WBC corrected for nucl RBC Auto (Bld) [#/Vol] 12.9 High [facility] COMPREHENSIVE METABOLIC PANE Dennis 04-12-2023 Albumin [Mass/Vol] 2.8 g/dL Low 3.2-5.3 [facility] Comment on above: Performed By: #### C MP ####[facility] ([id number])[address], [address], [place] [address] ALP [Catalytic activity/Vol] 85 U/L Normal 39-130 [facility] Comment on above: Performed By: #### C MP ####[facility] ([id number])[address], [address], [place] [address] ALT [Catalytic activity/Vol] 88 U/L High 0-31 [facility] Comment on above: Performed By: #### C MP ####[facility] ([id number])[address], [address], [place] [address] Anion gap [Moles/Vol] 8 mmol/L Normal 5-15 [facility] Comment on above: Performed By: #### C MP ####[facility] ([id number])[address], [address], [place] [address] AST [Catalytic activity/Vol] 37 U/L Normal 0-41 [facility] Comment on above: Performed By: #### C MP ####[facility] ([id number])[address], [address], [place] [address] Bilirubin [Mass/Vol] 0.6 mg/dL Normal 0.3-1.2 [facility] Comment on above: Performed By: #### C MP ####[facility] ([id number])[address], [address], [place] [address] Calcium [Mass/Vol] 8.6 mg/dL Normal 8.5-10.5 [facility] Comment on above: Performed By: #### C MP ####[facility] ([id number])[address] [place] [address] Chloride [Moles/Vol] 115 mmol/L High 98-109 [facility] Comment on above: Performed By: #### C MP ####[facility] ([id number])[address] [address] [place] [address] CO2 [Moles/Vol] 23 mmol/L Normal 22-32 [facility] Comment on above: Performed By: #### C MP ####[facility] ([id number])[address] [address] [place] [address] Creatinine [Mass/Vol] 0.71 mg/dL Normal 0.40-1.00 [facility] Comment on above: Result Comment: METH OD TRACEABLE TO IDMS STANDARD Performed By: #### C MP ####[facility] ([id number])[address] [address], [place] [address] GFR/1.73 sq M.predicted among non-blacks MDRD (S/P/Bld) [Vol rate/Area] 86 mL/min/{1.73_m2} Normal >59 [facility] Comment on above: Result Comment: Repo rted eGFR is based on theCKD-EPI 2020 equation that doesnot use a race coefficient. Performed By: #### C MP ####[facility] ([id number])[address] [address] [place] [address] Glucose [Mass/Vol] 130 mg/dL High 65-99 [facility] Comment on above: Performed By: #### C MP ####[facility] ([id number])[address], [place] [address] Potassium [Moles/Vol] 3.8 mmol/L Normal 3.5-5.0 [facility] Comment on above: Performed By: #### C MP ####[facility] ([id number])[address], [address], [place] [address] Protein [Mass/Vol] 5.7 g/dL Low 6.0-8.0 [facility] Comment on above: Performed By: #### C MP ####[facility] ([id number])[address] [place] [address] Sodium [Moles/Vol] 146 mmol/L Normal 134-146 [facility] Comment on above: Performed By: #### C MP ####[facility] ([id number])[address] [place] [address] Urea nitrogen [Mass/Vol] 32 mg/dL High 5-27 [facility] Comment on above: Performed By: #### C MP ####[facility] ([id number])[address] [place] [address] CT CTA CAROTIDon 04-12-2023 CT CTA CAROTID Normal [facility] CT CTA HEADon 04-12-2023 CT CTA HEAD Normal [facility] CTA Carotid artery W contras t Mónica [facility] CTA Head Arteries W contrast Mónica 04-12-[facility] (narrative) [facility] Comprehensive metabolic pane dennis 04-12-2023 Albumin [Mass/Vol] 2.8 g/dL Low 3.2 - 5.3 g/dL [facility] ALP [Catalytic activity/Vol] 85 U/L 39 - 130 U/L [facility] ALT No additional P-5'-P [Catalytic activity/Vol] 88 U/L High 0 - 31 U/L [facility] Anion gap [Moles/Vol] 8 mmol/L 5 - 15 mmol/L [facility] AST [Catalytic activity/Vol] 37 U/L 0 - 41 U/L [facility] Bilirubin [Mass/Vol] 0.6 mg/dL 0.3 - 1 .2 mg/dL [facility] Calcium [Mass/Vol] 8.6 mg/dL 8.5 - 10. 5 mg/dL [facility] Chloride [Moles/Vol] 115 mmol/L High 98 - 10 9 mmol/L [facility] CO2 [Moles/Vol] 23 mmol/L 22 - 32 mmol/L [facility] Creatinine [Mass/Vol] 0.71 mg/dL 0.40 - 1.00 mg/dL [facility] eGFR (CKD-EPI)non-race dependent 86 - PINF [facility] Glucose [Mass/Vol] 130 mg/dL High 65 - 99 mg/dL [facility] Interpretation and review of laboratory results Abnormal [facility] Potassium [Moles/Vol] 3.8 mmol/L 3.5 - 5.0 mmol/L [facility] Protein [Mass/Vol] 5.7 g/dL Low 6.0 - 8.0 g/dL [facility] Sodium [Moles/Vol] 146 mmol/L 134 - 146 mmol/L [facility] Urea nitrogen [Mass/Vol] 32 mg/dL High 5 - 27 mg/dL [facility] ELECTROLYTESon 04-12-2023 Anion gap [Moles/Vol] 9 mmol/L Normal 5-15 [facility] Comment on above: Performed By: #### E LEC ####[facility] ([id number])[address] [facility] [address] [address] Chloride [Moles/Vol] 114 mmol/L High 98-109 [facility] Comment on above: Performed By: #### E LEC ####[facility] ([id number])[address] [facility], [place] [address] CO2 [Moles/Vol] 25 mmol/L Normal 22-32 [facility] Comment on above: Performed By: #### E LEC ####[facility] ([id number])[address], [place] [address] Potassium [Moles/Vol] 3.8 mmol/L Normal 3.5-5.0 [facility] Comment on above: Result Comment: SPEC IMEN HEMOLYZED, RESULTS INCREASEDMODERATELY HEMOLYZED Performed By: #### E LEC ####[facility] ([id number])[address], [place] [address] Sodium [Moles/Vol] 148 mmol/L High 134-146 [facility] Comment on above: Performed By: #### E LEC ####[facility] ([id number])[address], [place] [address] Anion gap [Moles/Vol] 8 mmol/L Normal 5-15 [facility] Comment on above: Performed By: #### E LEC ####[facility] ([id number])[address], [address], [place] [address] Chloride [Moles/Vol] 115 mmol/L High 98-109 [facility] Comment on above: Performed By: #### E LEC ####[facility] ([id number])[address], [address], [place] [address] CO2 [Moles/Vol] 27 mmol/L Normal 22-32 [facility] Comment on above: Performed By: #### E LEC ####[facility] ([id number])[address], [address], [place] [address] Potassium [Moles/Vol] 3.7 mmol/L Normal 3.5-5.0 [facility] Comment on above: Performed By: #### E LEC ####[facility] ([id number])[address], [address], [place] [address] Sodium [Moles/Vol] 150 mmol/L High 134-146 [facility] Comment on above: Performed By: #### E LEC ####[facility] ([id number])[address], [address], [place] [address] Anion gap [Moles/Vol] 10 mmol/L Normal 5-15 [facility] Comment on above: Performed By: #### E LEC ####[facility] ([id number])[address], [address], [place] [address] Chloride [Moles/Vol] 117 mmol/L High 98-109 [facility] Comment on above: Performed By: #### E LEC ####[facility] ([id number])[address], [address], [place] [address] CO2 [Moles/Vol] 23 mmol/L Normal 22-32 [facility] Comment on above: Performed By: #### E LEC ####[facility] ([id number])[address], [address], [place] [address] Potassium [Moles/Vol] 3.4 mmol/L Low 3.5-5.0 [facility] Comment on above: Performed By: #### E LEC ####[facility] ([id number])[address], [address], [place] [address] Sodium [Moles/Vol] 150 mmol/L High 134-146 [facility] Comment on above: Performed By: #### E LEC ####[facility] ([id number])[address], [place] [address] Electrolyte panelon 04-12-19 24 Anion gap [Moles/Vol] 9 mmol/L 5 - 15 mmol/L [facility] Chloride [Moles/Vol] 114 mmol/L High 98 - 10 9 mmol/L [facility] CO2 [Moles/Vol] 25 mmol/L 22 - 32 mmol/L [facility] Interpretation and review of laboratory results Abnormal [facility] Potassium [Moles/Vol] 3.8 mmol/L 3.5 - 5.0 mmol/L [facility] Sodium [Moles/Vol] 148 mmol/L High 134 - 146 mmol/L [facility] Anion gap [Moles/Vol] 8 mmol/L 5 - 15 mmol/L [facility] Chloride [Moles/Vol] 115 mmol/L High 98 - 10 9 mmol/L [facility] CO2 [Moles/Vol] 27 mmol/L 22 - 32 mmol/L [facility] Interpretation and review of laboratory results Abnormal [facility] Potassium [Moles/Vol] 3.7 mmol/L 3.5 - 5.0 mmol/L [facility] Sodium [Moles/Vol] 150 mmol/L High 134 - 146 mmol/L [facility] Anion gap [Moles/Vol] 10 mmol/L 5 - 15 mmol/L [facility] Chloride [Moles/Vol] 117 mmol/L High 98 - 10 9 mmol/L [facility] CO2 [Moles/Vol] 23 mmol/L 22 - 32 mmol/L [facility] Interpretation and review of laboratory results Abnormal [facility] Potassium [Moles/Vol] 3.4 mmol/L Low 3.5 - 5.0 mmol/L [facility] Sodium [Moles/Vol] 150 mmol/L High 134 - 146 mmol/L [facility] Glucose Glucometer (BldC) [M ass/Vol]on 04-12-2023 Glucose [Mass/Vol] 121 mg/dL High 65-99 [facility] Glucose [Mass/Vol] 121 mg/dL High 65 - 99 mg/dL [facility] Interpretation and review of laboratory results Abnormal [facility] Immunoelectrophoresis for Th erapy Monitoringon 04-12-2023 IgA [Mass/Vol] 374 mg/dL 68 - 378 mg/dL [facility] IgG [Mass/Vol] 786 mg/dL 635 - 1741 mg/dL [facility] IgM [Mass/Vol] 38 mg/dL Low 45 - 281 mg/dL [facility] Immunoglobulin light chains.kappa.free (S) [Mass/Vol] 6.32 mg/dL High 0.33 - 1.94 mg/dL [facility] Immunoglobulin light chains.kappa.free/Immun oglobulin light chains.lambda (S) [Mass ratio] 1.71 High 0.26 - 1.65 [facility] Immunoglobulin light chains.lambda [Mass/Vol] 3.70 mg/dL High 0.57 - 2.63 mg/dL [facility] Laboratory - Pathologyon Pathologist interpretation (Bld) [Interp] SEE SEPARATE REPORT [facility] No Panel Informationon 04-12 Interpretation and review of laboratory results Abnormal [facility] Protein electrophoresis, ser umon 04-12-2023 Albumin [Mass/Vol] 2.4 g/dL Low 3.4 - 5.3 g/dL [facility] Alpha 1 globulin Elph [Mass/Vol] 0.5 g/dL High 0.1 - 0.4 g/dL [facility] Alpha 2 globulin Elph [Mass/Vol] 1.1 g/dL 0.4 - 1.1 g/dL [facility] Beta globulin Elph [Mass/Vol] 0.9 g/dL 0.5 - 1.2 g/dL [facility] Gamma globulin Elph [Mass/Vol] 0.7 g/dL 0.5 - 1.6 g/dL [facility] Protein [Mass/Vol] 5.7 g/dL Low 6.0 - 8.0 g/dL [facility] CBC AND AUTO DIFFon 04-11-19 24 ABSOLUTE BASOPHIL 0.1 X10E9/L Normal 0.0-0.2 [facility] Comment on above: Performed By: #### 1 9123-9, CMP, CBCA ####[facility] ([id number])[address] [facility] [address] [place] [address] ABSOLUTE NEUTROPHIL 7.9 X10E9/L High 1.5-6.6 [facility] Comment on above: Performed By: #### 1 9123-9, CMP, CBCA ####[facility] ([id number])[address], [address], [place] [address] Basophils/100 WBC (Bld) 0.6 % Normal [facility] Comment on above: Performed By: #### 1 9123-9, CMP, CBCA ####[facility] ([id number])[address], [address] [place] [address] Eosinophils (Bld) [#/Vol] 0.4 10*3/uL Normal 0.0-0.4 [facility] Comment on above: Performed By: #### 1 9123-9, CMP, CBCA ####[facility] ([id number])[address] [address] [place] [address] Eosinophils/100 WBC (Bld) 3.8 % Normal [facility] Comment on above: Performed By: #### 1 9123-9, CMP, CBCA ####[facility] ([id number])[address] [address] Erythrocyte distribution width (RBC) [Ratio] 15.1 % High 11.5-15.0 [facility] Comment on above: Performed By: #### 1 9123-9, CMP, CBCA ####[facility] ([id number])[address] [address] [place] [address] Hematocrit (Bld) [Volume fraction] 34.0 % Low 35-47 [facility] Comment on above: Performed By: #### 1 9123-9, CMP, CBCA ####[facility] ([id number])[address] [address] [place] [address], [place] [address] Hemoglobin (Bld) [Mass/Vol] 11.4 g/dL Low 11.7-15.5 [facility] Comment on above: Performed By: #### 1 9123-9, CMP, CBCA ####[facility] ([id number])[address], [address] [place] [address] Lymphocytes (Bld) [#/Vol] 0.9 10*3/uL Low 1.0-3.5 [facility] Comment on above: Performed By: #### 1 9123-9, CMP, CBCA ####[facility] ([id number])[address], [address], [place] [address] Lymphocytes/100 WBC (Bld) 8.9 % Normal [facility] Comment on above: Performed By: #### 1 91-9, CMP, CBCA ####[facility] ([id number])[address] [address] [place] [address] MCH (RBC) [Entitic mass] 28.9 pg Normal 27-34 [facility] Comment on above: Performed By: #### 1 9123-9, CMP, CBCA ####[facility] ([id number])[address], [address] [place] [address] MCHC (RBC) [Mass/Vol] 33.5 g/dL Normal 32-36 [facility] Comment on above: Performed By: #### 1 9123-9, CMP, CBCA ####[facility] ([id number])[address], [address] [place] [address] MCV (RBC) [Entitic vol] 86 fL Normal 80-100 [facility] Comment on above: Performed By: #### 1 9123-9, CMP, CBCA ####[facility] ([id number])[address] [address] Monocytes (Bld) [#/Vol] 0.6 10*3/uL Normal 0-0.9 [facility] Comment on above: Performed By: #### 1 9123-9, CMP, CBCA ####[facility] ([id number])[address], [address], [place] [address] Monocytes/100 WBC (Bld) 6.0 % Normal [facility] Comment on above: Performed By: #### 1 9123-9, CMP, CBCA ####[facility] ([id number])[address], [address], [place] [address] Neutrophils/100 WBC (Bld) 80.7 % Normal [facility] Comment on above: Performed By: #### 1 9123-9, CMP, CBCA ####[facility] ([id number])[address] [address], [place] [address] Platelet mean volume (Bld) [Entitic vol] 10.3 fL Normal 7-12 [facility] Comment on above: Performed By: #### 1 9123-9, CMP, CBCA ####[facility] ([id number])[address] [address], [place] [address] Platelets (Bld) [#/Vol] 97 10*3/uL Low 150-450 P [facility] Comment on above: Performed By: #### 1 9123-9, CMP, CBCA ####[facility] ([id number])[address] [address], [place] [address] RBC COUNT 3.95 X10E12/L Normal 3.80-5.20 [facility] Comment on above: Performed By: #### 1 9123-9, CMP, CBCA ####[facility] ([id number])[address], [address], [place] [address] WBC (Bld) [#/Vol] 9.7 10*3/uL Normal 4.0-11.0 [facility] Comment on above: Performed By: #### 1 9123-9, CMP, CBCA ####[facility] ([id number])[address], [address], [place] [address] CBC auto differentialon Basophils (Bld) [#/Vol] 0.1 10*3/uL [facility] Basophils/100 WBC (Bld) 0.6 % [facility] Eosinophils (Bld) [#/Vol] 0.4 10*3/uL [facility] Eosinophils/100 WBC (Bld) 3.8 % [facility] Erythrocyte distribution width (RBC) [Ratio] 15.1 % High 11.5 - 15.0 % [facility] Hematocrit (Bld) [Volume fraction] 34.0 % Low 35 - 47 % [facility] Hemoglobin (Bld) [Mass/Vol] 11.4 g/dL Low 11.7 - 15.5 g/dL [facility] Interpretation and review of laboratory results Abnormal [facility] Lymphocytes (Bld) [#/Vol] 0.9 10*3/uL Low [facility] Lymphocytes/100 WBC (Bld) 8.9 % [facility] MCH (RBC) [Entitic mass] 28.9 pg 27 - 34 pg [facility] MCHC (RBC) [Mass/Vol] 33.5 g/dL 32 - 3 6 g/dL [facility] MCV (RBC) [Entitic vol] 86 fL 80 - 100 fL [facility] Monocytes (Bld) [#/Vol] 0.6 10*3/uL [facility] Monocytes/100 WBC (Bld) 6.0 % [facility] Neutrophils (Bld) [#/Vol] 7.9 10*3/uL High [facility] Neutrophils/100 WBC (Bld) 80.7 % [facility] Platelet mean volume (Bld) [Entitic vol] 10.3 fL 7 - 12 fL [facility] Platelets (Bld) [#/Vol] 97 10*3/uL Low [facility] RBC (Bld) [#/Vol] 3.95 10*6/uL [facility] WBC corrected for nucl RBC Auto (Bld) [#/Vol] 9.7 [facility] COMPREHENSIVE METABOLIC PANE Dennis 04-11-2023 Albumin [Mass/Vol] 2.9 g/dL Low 3.2-5.3 [facility] Comment on above: Performed By: #### 1 9123-9, CMP, CBCA ####[facility] ([id number])[address], [address], [place] [address] ALP [Catalytic activity/Vol] 91 U/L Normal 39-130 [facility] Comment on above: Performed By: #### 1 9123-9, CMP, CBCA ####[facility] ([id number])[address], [address], [place] [address] ALT [Catalytic activity/Vol] 94 U/L High 0-31 [facility] Comment on above: Performed By: #### 1 9123-9, CMP, CBCA ####[facility] ([id number])[address], [address], [place] [address] Anion gap [Moles/Vol] 8 mmol/L Normal 5-15 [facility] Comment on above: Performed By: #### 1 9123-9, CMP, CBCA ####[facility] ([id number])[address], [address], [place] [address] AST [Catalytic activity/Vol] 54 U/L High 0-41 [facility] Comment on above: Performed By: #### 1 9123-9, CMP, CBCA ####[facility] ([id number])[address], [address], [place] [address] Bilirubin [Mass/Vol] 0.6 mg/dL Normal 0.3-1.2 [facility] Comment on above: Performed By: #### 1 9123-9, CMP, CBCA ####[facility] ([id number])[address], [address], [place] [address] Calcium [Mass/Vol] 8.6 mg/dL Normal 8.5-10.5 [facility] Comment on above: Performed By: #### 1 9123-9, CMP, CBCA ####[facility] ([id number])[address], [address], [place] [address] Chloride [Moles/Vol] 119 mmol/L High 98-109 [facility] Comment on above: Performed By: #### 1 9123-9, CMP, CBCA ####[facility] ([id number])[address], [address] [place] [address] CO2 [Moles/Vol] 23 mmol/L Normal 22-32 [facility] Comment on above: Performed By: #### 1 9123-9, CMP, CBCA ####[facility] ([id number])[address], [address], [place] [address] Creatinine [Mass/Vol] 0.88 mg/dL Normal 0.40-1.00 [facility] Comment on above: Result Comment: METH OD TRACEABLE TO IDMS STANDARD Performed By: #### 1 9123-9, CMP, CBCA ####[facility] ([id number])[address] [address] GFR/1.73 sq M.predicted among non-blacks MDRD (S/P/Bld) [Vol rate/Area] 66 mL/min/{1.73_m2} Normal >59 [facility] Comment on above: Result Comment: Repo rted eGFR is based on theCKD-EPI 2020 equation that doesnot use a race coefficient. Performed By: #### 1 9123-9, CMP, CBCA ####[facility] ([id number])[address], [address], [place] [address] Glucose [Mass/Vol] 153 mg/dL High 65-99 [facility] Comment on above: Performed By: #### 1 9123-9, CMP, CBCA ####[facility] ([id number])[address], [address] [place] [address] Potassium [Moles/Vol] 4.6 mmol/L Normal 3.5-5.0 [facility] Comment on above: Performed By: #### 1 9123-9, CMP, CBCA ####[facility] ([id number])[address], [address] [place] [address] Protein [Mass/Vol] 5.9 g/dL Low 6.0-8.0 [facility] Comment on above: Performed By: #### 1 9123-9, CMP, CBCA ####[facility] ([id number])[address], [address], [place] [address] Sodium [Moles/Vol] 150 mmol/L High 134-146 [facility] Comment on above: Performed By: #### 1 9123-9, CMP, CBCA ####[facility] ([id number])[address], [address], [place] [address] Urea nitrogen [Mass/Vol] 39 mg/dL High 5-27 [facility] Comment on above: Performed By: #### 1 9123-9, CMP, CBCA ####[facility] ([id number])[address], [address] [place] [address], [place] [address] Clinical Pathology Reviewon 04-11-2023 COPATH [facility] Comprehensive metabolic pane dennis 04-11-2023 Albumin [Mass/Vol] 2.9 g/dL Low 3.2 - 5.3 g/dL [facility] ALP [Catalytic activity/Vol] 91 U/L 39 - 130 U/L [facility] ALT No additional P-5'-P [Catalytic activity/Vol] 94 U/L High 0 - 31 U/L [facility] Anion gap [Moles/Vol] 8 mmol/L 5 - 15 mmol/L [facility] AST [Catalytic activity/Vol] 54 U/L High 0 - 41 U/L [facility] Bilirubin [Mass/Vol] 0.6 mg/dL 0.3 - 1 .2 mg/dL [facility] Calcium [Mass/Vol] 8.6 mg/dL 8.5 - 10. 5 mg/dL [facility] Chloride [Moles/Vol] 119 mmol/L High 98 - 10 9 mmol/L [facility] CO2 [Moles/Vol] 23 mmol/L 22 - 32 mmol/L [facility] Creatinine [Mass/Vol] 0.88 mg/dL 0.40 - 1.00 mg/dL [facility] eGFR (CKD-EPI)non-race dependent 66 - PINF [facility] Glucose [Mass/Vol] 153 mg/dL High 65 - 99 mg/dL [facility] Interpretation and review of laboratory results Abnormal [facility] Potassium [Moles/Vol] 4.6 mmol/L 3.5 - 5.0 mmol/L [facility] Protein [Mass/Vol] 5.9 g/dL Low 6.0 - 8.0 g/dL [facility] Sodium [Moles/Vol] 150 mmol/L High 134 - 146 mmol/L [facility] Urea nitrogen [Mass/Vol] 39 mg/dL High 5 - 27 mg/dL [facility] EGD Study observationon [facility] ELECTROLYTESon 04-11-2023 Anion gap [Moles/Vol] 10 mmol/L Normal 5-15 [facility] Comment on above: Performed By: #### E LEC ####[facility] ([id number])[address], [address] [place] [address] Chloride [Moles/Vol] 116 mmol/L High 98-109 [facility] Comment on above: Performed By: #### E LEC ####[facility] ([id number])[address], [address] [place] [address] CO2 [Moles/Vol] 27 mmol/L Normal 22-32 [facility] Comment on above: Performed By: #### E LEC ####[facility] ([id number])[address], [address], [place] [address] Potassium [Moles/Vol] 3.6 mmol/L Normal 3.5-5.0 [facility] Comment on above: Performed By: #### E LEC ####[facility] ([id number])[address], [address], [place] [address] Sodium [Moles/Vol] 153 mmol/L High 134-146 [facility] Comment on above: Performed By: #### E LEC ####[facility] ([id number])[address], [address], [place] [address] Anion gap [Moles/Vol] 8 mmol/L Normal 5-15 [facility] Comment on above: Performed By: #### E LEC ####[facility] ([id number])[address], [address], [place] [address] Chloride [Moles/Vol] 117 mmol/L High 98-109 [facility] Comment on above: Performed By: #### E LEC ####[facility] ([id number])[address], [address], [place] [address] CO2 [Moles/Vol] 26 mmol/L Normal 22-32 [facility] Comment on above: Performed By: #### E LEC ####[facility] ([id number])[address], [address], [place] [address] Potassium [Moles/Vol] 4.0 mmol/L Normal 3.5-5.0 [facility] Comment on above: Performed By: #### E LEC ####[facility] ([id number])[address], [place] [address] Sodium [Moles/Vol] 151 mmol/L High 134-146 [facility] Comment on above: Performed By: #### E LEC ####[facility] ([id number])[address], [place] [address] Anion gap [Moles/Vol] 9 mmol/L Normal 5-15 [facility] Comment on above: Performed By: #### E LEC ####[facility] ([id number])[address], [address], [place] [address] Chloride [Moles/Vol] 118 mmol/L High 98-109 [facility] Comment on above: Performed By: #### E LEC ####[facility] ([id number])[address] [place] [address] CO2 [Moles/Vol] 24 mmol/L Normal 22-32 [facility] Comment on above: Performed By: #### E LEC ####[facility] ([id number])[address], [place] [address] Potassium [Moles/Vol] 4.0 mmol/L Normal 3.5-5.0 [facility] Comment on above: Performed By: #### E LEC ####[facility] ([id number])[address], [place] [address] Sodium [Moles/Vol] 151 mmol/L High 134-146 [facility] Comment on above: Performed By: #### E LEC ####[facility] ([id number])[address] [address], [place] [address] Electrolyte panelon 04-11-19 24 Anion gap [Moles/Vol] 10 mmol/L 5 - 15 mmol/L [facility] Chloride [Moles/Vol] 116 mmol/L High 98 - 10 9 mmol/L [facility] CO2 [Moles/Vol] 27 mmol/L 22 - 32 mmol/L [facility] Interpretation and review of laboratory results Abnormal [facility] Potassium [Moles/Vol] 3.6 mmol/L 3.5 - 5.0 mmol/L [facility] Sodium [Moles/Vol] 153 mmol/L High 134 - 146 mmol/L [facility] Anion gap [Moles/Vol] 8 mmol/L 5 - 15 mmol/L [facility] Chloride [Moles/Vol] 117 mmol/L High 98 - 10 9 mmol/L [facility] CO2 [Moles/Vol] 26 mmol/L 22 - 32 mmol/L [facility] Interpretation and review of laboratory results Abnormal [facility] Potassium [Moles/Vol] 4.0 mmol/L 3.5 - 5.0 mmol/L [facility] Sodium [Moles/Vol] 151 mmol/L High 134 - 146 mmol/L [facility] Anion gap [Moles/Vol] 9 mmol/L 5 - 15 mmol/L [facility] Chloride [Moles/Vol] 118 mmol/L High 98 - 10 9 mmol/L [facility] CO2 [Moles/Vol] 24 mmol/L 22 - 32 mmol/L [facility] Interpretation and review of laboratory results Abnormal [facility] Potassium [Moles/Vol] 4.0 mmol/L 3.5 - 5.0 mmol/L [facility] Sodium [Moles/Vol] 151 mmol/L High 134 - 146 mmol/L [facility] Heparin PF4 ABon 04-11-2023 Heparin induced platelet IgG IA [OD] 0.112 NINF [facility] Heparin induced platelet IgG IA [OD]on 04-11-2023 [facility] MAGNESIUMon 04-11-2023 Magnesium [Mass/Vol] 2.1 mg/dL Normal 1.8-2.6 [facility] Comment on above: Performed By: #### 1 9123-9, CMP, CBCA ####[facility] ([id number])[address] [facility], [address] [place] [address] Magnesiumon 04-11-2023 Magnesium [Mass/Vol] 2.1 mg/dL 1.8 - 2 .6 mg/dL [facility] No Panel Informationon 04-11 [facility] XR CHEST 1 VWon 04-11-2023 XR CHEST 1 VW Normal [facility] XR Chest Single viewon 04-11 [facility] (narrative) [facility] ACUTE HEPATITIS PANELon ANTI HCV W/PCR REFLX Non-Reactive Normal NRCT Pr [facility] Comment on above: Result Comment: If r ecent infection suspected, recommendrepeat testing (>2 months).Amghjg-nz-jnnqku ratio is <0.80. Performed By: #### 1 8323-6, SPE, 83179-7, 80388-9, 13499-0, AHP, IMEL, 5130-0, 69963-9, 33465-8, 78719-7 ####[facility] ([id number])[address], [address] [place] [address] HEPATITIS A IGM Non-Reactive Normal NRCT [facility] Comment on above: Performed By: #### 1 8323-6, SPE, 06338-9, 10967-2, 31287-4, AHP, IMEL, 5130-0, 12208-1, 24209-4, 82061-2 ####[facility] ([id number])[address], [address] [place] [address] [id number] HEPATITIS B CORE IGM Negative Normal NEG [facility] Comment on above: Performed By: #### 1 8323-6, SPE, 40246-0, 64900-5, 45827-0, AHP, IMEL, 5130-0, 89154-5, 82759-6, 93853-5 ####[facility] [facility] ([id number])[address], [address], [place] [address] HEPATITIS B SURF AG Negative Normal NEG [facility] Comment on above: Performed By: #### 1 8323-6, SPE, 72382-2, 31098-4, 57377-6, AHP, IMEL, 5130-0, 04019-3, 52317-0, 51271-1 ####[facility] ([id number])[address], [place] [address] KAY Screen w/ Reflexon 04-10 Nuclear Ab IA Ql (S) Positive Abnormal Negativ e^N egative [facility] Anti-Chromatin IGGon 024 Chromatin Ab Ql [facility] Anti-DNA antibody, double-st randedon 04-10-2023 DNA double strand Ab Qn (S) [facility] Anti-Ruelas AB IGGon 04-10-19 24 Ruelas extractable nuclear IgG Qn (S) [facility] CBC AND AUTO DIFFon 04-10-19 24 ABSOLUTE BASOPHIL 0.0 X10E9/L Normal 0.0-0.2 [facility] Comment on above: Performed By: #### 1 9123-9, CBCA, 34042-7, CMP ####[facility] ([id number])[address] [address] ABSOLUTE NEUTROPHIL 7.2 X10E9/L High 1.5-6.6 [facility] Comment on above: Performed By: #### 1 9123-9, CBCA, 13975-9, CMP ####[facility] ([id number])[address] [address] Basophils/100 WBC (Bld) 0.3 % Normal P [facility] Comment on above: Performed By: #### 1 9123-9, CBCA, 83695-9, CMP ####[facility] ([id number])[address] [address] [place] [address] Eosinophils (Bld) [#/Vol] 0.2 10*3/uL Normal 0.0-0.4 [facility] Comment on above: Performed By: #### 1 9123-9, CBCA, 75876-8, CMP ####[facility] ([id number])[address] [address] [place] [address] Eosinophils/100 WBC (Bld) 2.7 % Normal [facility] Comment on above: Performed By: #### 1 9123-9, CBCA, 02949-3, CMP ####[facility] ([id number])[address] [address] [place] [address] Erythrocyte distribution width (RBC) [Ratio] 15.0 % Normal 11.5-15.0 [facility] Comment on above: Performed By: #### 1 9123-9, CBCA, 82113-1, CMP ####[facility] ([id number])[address], [address] [place] [address] Hematocrit (Bld) [Volume fraction] 35.6 % Normal 35-47 [facility] Comment on above: Performed By: #### 1 9123-9, CBCA, 36564-5, CMP ####[facility] ([id number])[address] [address] [place] [address] Hemoglobin (Bld) [Mass/Vol] 12.0 g/dL Normal 11.7-15.5 [facility] Comment on above: Performed By: #### 1 9123-9, CBCA, 00452-1, CMP ####[facility] ([id number])[address] [address] [place] [address] Lymphocytes (Bld) [#/Vol] 0.8 10*3/uL Low 1.0-3.5 [facility] Comment on above: Performed By: #### 1 9123-9, CBCA, 59462-4, CMP ####[facility] ([id number])[address] [address] [place] [address] Lymphocytes/100 WBC (Bld) 9.1 % Normal [facility] Comment on above: Performed By: #### 1 9123-9, CBCA, 10525-8, CMP ####[facility] ([id number])[address], [address] [address] MCH (RBC) [Entitic mass] 29.0 pg Normal 27-34 [facility] Comment on above: Performed By: #### 1 9123-9, CBCA, 75751-9, CMP ####[facility] ([id number])[address], [address] [address] MCHC (RBC) [Mass/Vol] 33.6 g/dL Normal 32-36 [facility] Comment on above: Performed By: #### 1 9123-9, CBCA, 58593-0, CMP ####[facility] ([id number])[address], [address] [address] MCV (RBC) [Entitic vol] 86 fL Normal 80-100 [facility] Comment on above: Performed By: #### 1 9123-9, CBCA, 39351-9, CMP ####[facility] ([id number])[address] [address] [place] [address] Monocytes (Bld) [#/Vol] 0.7 10*3/uL Normal 0-0.9 [facility] Comment on above: Performed By: #### 1 9123-9, CBCA, 03686-2, CMP ####[facility] ([id number])[address] [address] Monocytes/100 WBC (Bld) 7.7 % Normal [facility] Comment on above: Performed By: #### 1 9123-9, CBCA, 48693-6, CMP ####[facility] ([id number])[address] [address] Neutrophils/100 WBC (Bld) 80.2 % Normal [facility] Comment on above: Performed By: #### 1 9123-9, CBCA, 89051-8, CMP ####[facility] ([id number])[address] [address] Platelet mean volume (Bld) [Entitic vol] 9.7 fL Normal 7-12 [facility] Comment on above: Performed By: #### 1 9123-9, CBCA, 21136-3, CMP ####[facility] ([id number])[address] [address] Platelets (Bld) [#/Vol] 87 10*3/uL Low 150-450 [facility] Comment on above: Performed By: #### 1 9123-9, CBCA, 79869-0, CMP ####[facility] ([id number])[address] [address] RBC COUNT 4.12 X10E12/L Normal 3.80-5.20 [facility] Comment on above: Performed By: #### 1 9123-9, CBCA, 02668-5, CMP ####[facility] ([id number])[address] [address] WBC (Bld) [#/Vol] 8.9 10*3/uL Normal 4.0-11.0 [facility] Comment on above: Performed By: #### 1 9123-9, CBCA, 19918-8, CMP ####[facility] ([id number])[address] [address] CBC auto differentialon -2023 Basophils (Bld) [#/Vol] 0.0 10*3/uL [facility] Basophils/100 WBC (Bld) 0.3 % [facility] Eosinophils (Bld) [#/Vol] 0.2 10*3/uL [facility] Eosinophils/100 WBC (Bld) 2.7 % [facility] Erythrocyte distribution width (RBC) [Ratio] 15.0 % 11.5 - 15.0 % [facility] Hematocrit (Bld) [Volume fraction] 35.6 % 35 - 47 % [facility] Hemoglobin (Bld) [Mass/Vol] 12.0 g/dL 11.7 - 15.5 g/dL [facility] Interpretation and review of laboratory results Abnormal [facility] Lymphocytes (Bld) [#/Vol] 0.8 10*3/uL Low [facility] Lymphocytes/100 WBC (Bld) 9.1 % [facility] MCH (RBC) [Entitic mass] 29.0 pg 27 - 34 pg [facility] MCHC (RBC) [Mass/Vol] 33.6 g/dL 32 - 3 6 g/dL [facility] MCV (RBC) [Entitic vol] 86 fL 80 - 100 fL [facility] Monocytes (Bld) [#/Vol] 0.7 10*3/uL [facility] Monocytes/100 WBC (Bld) 7.7 % P [facility] Neutrophils (Bld) [#/Vol] 7.2 10*3/uL High [facility] Neutrophils/100 WBC (Bld) 80.2 % [facility] Platelet mean volume (Bld) [Entitic vol] 9.7 fL 7 - 12 fL [facility] Platelets (Bld) [#/Vol] 87 10*3/uL Low P [facility] RBC (Bld) [#/Vol] 4.12 10*6/uL [facility] WBC corrected for nucl RBC Auto (Bld) [#/Vol] 8.9 [facility] COMPREHENSIVE METABOLIC PANE Dennis 04-10-2023 Albumin [Mass/Vol] 3.2 g/dL Normal 3.2-5.3 [facility] Comment on above: Performed By: #### 1 9123-9, CBCA, 71283-6, CMP ####[facility] ([id number])[address] [facility] [address] [place] [address] ALP [Catalytic activity/Vol] 109 U/L Normal 39-130 [facility] Comment on above: Performed By: #### 1 9123-9, CBCA, 90017-6, CMP ####[facility] ([id number])[address], [address], [place] [address] ALT [Catalytic activity/Vol] 88 U/L High 0-31 [facility] Comment on above: Performed By: #### 1 9123-9, CBCA, 02777-9, CMP ####[facility] ([id number])[address], [address], [place] [address] Anion gap [Moles/Vol] 8 mmol/L Normal 5-15 [facility] Comment on above: Performed By: #### 1 9123-9, CBCA, 90374-4, CMP ####[facility] ([id number])[address], [address], [place] [address] AST [Catalytic activity/Vol] 48 U/L High 0-41 [facility] Comment on above: Performed By: #### 1 9123-9, CBCA, 88829-9, CMP ####[facility] ([id number])[address], [address], [place] [address] Bilirubin [Mass/Vol] 0.8 mg/dL Normal 0.3-1.2 [facility] Comment on above: Performed By: #### 1 9123-9, CBCA, 70660-9, CMP ####[facility] ([id number])[address], [address], [place] [address] Calcium [Mass/Vol] 8.6 mg/dL Normal 8.5-10.5 [facility] Comment on above: Performed By: #### 1 9123-9, CBCA, 90173-7, CMP ####[facility] ([id number])[address], [address], [place] [address] Chloride [Moles/Vol] 115 mmol/L High 98-109 [facility] Comment on above: Performed By: #### 1 9123-9, CBCA, 04962-0, CMP ####[facility] ([id number])[address] [address], [place] [address] CO2 [Moles/Vol] 28 mmol/L Normal 22-32 [facility] Comment on above: Performed By: #### 1 9123-9, CBCA, 55824-4, CMP ####[facility] ([id number])[address] [address], [place] [address] Creatinine [Mass/Vol] 0.80 mg/dL Normal 0.40-1.00 [facility] Comment on above: Result Comment: METH OD TRACEABLE TO IDMS STANDARD Performed By: #### 1 9123-9, CBCA, 35503-2, CMP ####[facility] ([id number])[address] [address] GFR/1.73 sq M.predicted among non-blacks MDRD (S/P/Bld) [Vol rate/Area] 74 mL/min/{1.73_m2} Normal >59 [facility] Comment on above: Result Comment: Repo rted eGFR is based on theCKD-EPI 2020 equation that doesnot use a race coefficient. Performed By: #### 1 9123-9, CBCA, 30206-9, CMP ####[facility] ([id number])[address] [address] Glucose [Mass/Vol] 113 mg/dL High 65-99 [facility] Comment on above: Performed By: #### 1 9123-9, CBCA, 23342-7, CMP ####[facility] ([id number])[address] [address] Potassium [Moles/Vol] 3.8 mmol/L Normal 3.5-5.0 [facility] Comment on above: Performed By: #### 1 9123-9, CBCA, 01259-9, CMP ####[facility] ([id number])[address], [address] [place] [address] Protein [Mass/Vol] 6.4 g/dL Normal 6.0-8.0 [facility] Comment on above: Performed By: #### 1 9123-9, CBCA, 99188-8, CMP ####[facility] ([id number])[address], [address] [place] [address] Sodium [Moles/Vol] 151 mmol/L High 134-146 [facility] Comment on above: Performed By: #### 1 9123-9, CBCA, 70283-8, CMP ####[facility] ([id number])[address], [address] [place] [address] Urea nitrogen [Mass/Vol] 38 mg/dL High 5-27 [facility] Comment on above: Performed By: #### 1 9123-9, CBCA, 80573-4, CMP ####[facility] ([id number])[address] [address] [place] [address] Chromatin Ab Qlon 04-10-2023 CHROMATIN AB IGG <0.2 Normal <1.0 [facility] Comment on above: Performed By: #### 1 8323-6, SPE, 17365-4, 23440-9, 62464-1, AHP, IMEL, 5130-0, 32947-0, 11654-7, 21523-1 ####[facility] ([id number])[address], [address] [place] [address] Clinical Pathologyon 024 Clinical Pathology Normal [facility] Comment on above: Result Comment: [facility] [address] [place] [address] Clinical Pathology ReportPatient Name:ELLEN CHAN:1945 (Age: 78)Gender:FTaken:4Reported:4Physician(s):Willard Krueger M.D.Copy To: Rec. #:[id number]: #[id number] Pathologic DiagnosisHypoproteinemia with hypoalbuminemia, no monoclonal bands.Elevated free kappa and lambda light chains suggestive of renal impairment. Report Electronically Signed Outsps/04/11/2023Suparth Castañeda MDInterpretation performed at [facility], [address] [place] [address], License number: [id number].Clinical CozwmqgP47.0, R00.1.SERUM PROTEIN ELECTROPHORESISSAMPLE NO: [id number] FRACTION CONCENTRATIONS (g/dL) PATIENT REFERENCE RANGEAlbumin 2.4 L 3.4 - 5.3Alpha-1 globulin 0.5 H 0.1 - 0.4Alpha-2 globulin 1.1 0.4 - 1.1Beta globulin 0.9 0.5 - 1.2Gamma globulin 0.7 0.5 - 1.6Total protein 5.7 L 6.0 - 8.0(Electrophoretic gels and densitometric tracings on file in lab.)SERUM IEPIMMUNOGLOBULIN LEVELS (mg/dL): IgG : 786 IgA : 374 IgM : 38 Free [place]: 6.32 Free Lambda: 3.70 Free [place]/Lambda ratio: 1.71Specimen(s) Received1: Serum Protein Electrophoresis2: Serum IEPFee Codes(s):1; 70241-982; 50814-34 Clinical Pathology Blood Sme ar Review ClinicalOrdered By: Radha Perry on 04-10-2023 Pathologist review Pathologist comment (Bld) [Interp] NOTE [facility] Comprehensive metabolic pane dennis 04-10-2023 Albumin [Mass/Vol] 3.2 g/dL 3.2 - 5.3 g/dL [facility] ALP [Catalytic activity/Vol] 109 U/L 39 - 130 U/L [facility] ALT No additional P-5'-P [Catalytic activity/Vol] 88 U/L High 0 - 31 U/L [facility] Anion gap [Moles/Vol] 8 mmol/L 5 - 15 mmol/L [facility] AST [Catalytic activity/Vol] 48 U/L High 0 - 41 U/L [facility] Bilirubin [Mass/Vol] 0.8 mg/dL 0.3 - 1 .2 mg/dL [facility] Calcium [Mass/Vol] 8.6 mg/dL 8.5 - 10. 5 mg/dL [facility] Chloride [Moles/Vol] 115 mmol/L High 98 - 10 9 mmol/L [facility] CO2 [Moles/Vol] 28 mmol/L 22 - 32 mmol/L [facility] Creatinine [Mass/Vol] 0.80 mg/dL 0.40 - 1.00 mg/dL [facility] eGFR (CKD-EPI)non-race dependent 74 - PINF [facility] Glucose [Mass/Vol] 113 mg/dL High 65 - 99 mg/dL [facility] Interpretation and review of laboratory results Abnormal [facility] Potassium [Moles/Vol] 3.8 mmol/L 3.5 - 5.0 mmol/L [facility] Protein [Mass/Vol] 6.4 g/dL 6.0 - 8.0 g/dL [facility] Sodium [Moles/Vol] 151 mmol/L High 134 - 146 mmol/L [facility] Urea nitrogen [Mass/Vol] 38 mg/dL High 5 - 27 mg/dL [facility] DNA double strand Ab Qn (S)o n 04-10-2023 DOUBLE STRANDED DNA <1 Normal <5 [facility] Comment on above: Result Comment: ---- ------Interpretation--------<5 Negative5-9 Indeterminate>9 Positive Performed By: #### 1 8323-6, SPE, 58364-8, 76074-6, 61851-2, AHP, IMEL, 5130-0, 36010-6, 08676-2, 50686-7 ####[facility] ([id number])[address], [place] [address] ELECTROLYTESon 04-10-2023 Anion gap [Moles/Vol] 10 mmol/L Normal 5-15 [facility] Comment on above: Performed By: #### E LEC ####[facility] ([id number])[address], [address], [place] [address] Chloride [Moles/Vol] 116 mmol/L High 98-109 [facility] Comment on above: Performed By: #### E LEC ####[facility] ([id number])[address], [address], [place] [address] CO2 [Moles/Vol] 23 mmol/L Normal 22-32 [facility] Comment on above: Performed By: #### E LEC ####[facility] ([id number])[address], [address], [place] [address] Potassium [Moles/Vol] 3.8 mmol/L Normal 3.5-5.0 [facility] Comment on above: Performed By: #### E LEC ####[facility] ([id number])[address], [address], [place] [address] Sodium [Moles/Vol] 149 mmol/L High 134-146 [facility] Comment on above: Performed By: #### E LEC ####[facility] ([id number])[address], [address], [place] [address] Anion gap [Moles/Vol] 11 mmol/L Normal 5-15 [facility] Comment on above: Performed By: #### E LEC ####[facility] ([id number])[address], [address], [place] [address] Chloride [Moles/Vol] 115 mmol/L High 98-109 [facility] Comment on above: Performed By: #### E LEC ####[facility] ([id number])[address], [address], [place] [address] CO2 [Moles/Vol] 24 mmol/L Normal 22-32 [facility] Comment on above: Performed By: #### E LEC ####[facility] ([id number])[address], [address], [place] [address] Potassium [Moles/Vol] 3.9 mmol/L Normal 3.5-5.0 [facility] Comment on above: Performed By: #### E LEC ####[facility] ([id number])[address], [address] [place] [address] Sodium [Moles/Vol] 150 mmol/L High 134-146 [facility] Comment on above: Performed By: #### E LEC ####[facility] ([id number])[address], [address] [place] [address] Electrolyte panelon 04-10-19 24 Anion gap [Moles/Vol] 10 mmol/L 5 - 15 mmol/L [facility] Chloride [Moles/Vol] 116 mmol/L High 98 - 10 9 mmol/L [facility] CO2 [Moles/Vol] 23 mmol/L 22 - 32 mmol/L [facility] Interpretation and review of laboratory results Abnormal [facility] Potassium [Moles/Vol] 3.8 mmol/L 3.5 - 5.0 mmol/L [facility] Sodium [Moles/Vol] 149 mmol/L High 134 - 146 mmol/L [facility] Anion gap [Moles/Vol] 11 mmol/L 5 - 15 mmol/L [facility] Chloride [Moles/Vol] 115 mmol/L High 98 - 10 9 mmol/L [facility] CO2 [Moles/Vol] 24 mmol/L 22 - 32 mmol/L [facility] Interpretation and review of laboratory results Abnormal [facility] Potassium [Moles/Vol] 3.9 mmol/L 3.5 - 5.0 mmol/L [facility] Sodium [Moles/Vol] 150 mmol/L High 134 - 146 mmol/L [facility] HIV 1&2 AB/AG Screen (P24 AG )on 04-10-2023 HIV 1+2 Ab+HIV1 p24 Ag IA Ql Non-Reactive Non-Reacti ve^Non-Croghan ctive [facility] HIV 1+2 Ab+HIV1 p24 Ag IA Ql on 04-10-2023 HIV 1 and 2 Ab/Ag Screen Non-Reactive Normal NRCT [facility] Comment on above: Result Comment: This information has been disclosed to youfrom confidential records protected fromdisclosure by state law. You shall make nofurther disclosure of this information withoutthe specific, written and informed releaseof the individual to whom it pertains, or asotherwise permitted by state law. A generalauthorization for the release of medical orother information is not sufficient for thepurpose of the release of HIV test resultsor diagnoses. Performed By: #### 1 8323-6, SPE, 90659-3, 38084-0, 88832-8, AHP, IMEL, 5130-0, 16599-6, 97608-7, 08694-1 ####[facility] ([id number])[address] [place] [address], [address] [address] Heparin induced platelet IgG IA [OD]on 04-10-2023 HEPARIN PF4 ANTIBODY (HIT) 0.112 OD Normal <0.4 [facility] Comment on above: Result Comment: --- O.D. Interpretation--- < 0.400 Negative >= 0.400 Positive Performed By: #### 7 3818-7 ####[facility] ([id number])[address] [place] [address], [address] [address] Hepatitis panel, acuteon HAV IgM IA Ql Non-Reactive Non-Reacti ve^Non-Croghan ctive [facility] HBV core IgM IA Ql Negative Negative^ N egative [facility] HBV surface Ag IA Ql Negative Negativ e^N egative [facility] HCV Ab IA Ql Non-Reactive Non-Reacti ve^Non-Croghan ctive [facility] IMMUNOELECTROPHORESIS FOR TH FRANNIEPY MONITORINGon 04-10-2023 FREE ZOILA/LAMBD RATIO 1.71 High 0.26-1.65 [facility] Comment on above: Performed By: #### 1 8323-6, SPE, 42834-9, 45867-5, 74591-5, AHP, IMEL, 5130-0, 82079-3, 39352-4, 68393-2 ####[facility] ([id number])[address], [address] [place] [address] FREE KAPPA LT CHAINS 6.32 mg/dL High 0.33-1.94 [facility] Comment on above: Performed By: #### 1 8323-6, SPE, 82468-1, 79752-6, 03180-0, AHP, IMEL, 5130-0, 86481-5, 64230-5, 72531-9 ####[facility] ([id number])[address], [address] [place] [address] FREE LAMBDA LT CHAINS 3.70 mg/dL High 0.57-2.63 [facility] Comment on above: Performed By: #### 1 8323-6, SPE, 92556-9, 43945-0, 17852-6, AHP, IMEL, 5130-0, 16481-4, 27558-2, 28235-3 ####[facility] ([id number])[address] [place] [address] IgA [Mass/Vol] 374 mg/dL Normal 68-378 [facility] Comment on above: Performed By: #### 1 8323-6, SPE, 70827-9, 07208-0, 02785-6, AHP, IMEL, 5130-0, 01317-1, 65005-6, 15166-9 ####[facility] ([id number])[address], [address], [place] [address] IgG [Mass/Vol] 786 mg/dL Normal 635-1741 [facility] Comment on above: Performed By: #### 1 8323-6, SPE, 43090-6, 20002-4, 59329-1, AHP, IMEL, 5130-0, 73098-1, 06510-3, 63266-3 ####[facility] ([id number])[address], [address] [place] [address] IgM [Mass/Vol] 38 mg/dL Low 45-281 [facility] Comment on above: Performed By: #### 1 8323-6, SPE, 47737-9, 96486-6, 12669-6, AHP, IMEL, 5130-0, 04484-9, 28955-6, 97645-1 ####[facility] ([id number])[address], [address] [place] [address] IMMUNE PROFILE INTERP SEE SEPARATE REPORT Normal [facility] Comment on above: Performed By: #### 1 8323-6, SPE, 34850-5, 56622-3, 70101-5, AHP, IMEL, 5130-0, 44131-8, 77955-9, 45015-3 ####[facility] ([id number])[address], [address] [place] [address] MAGNESIUMon 04-10-2023 Magnesium [Mass/Vol] 2.4 mg/dL Normal 1.8-2.6 [facility] Comment on above: Performed By: #### 1 9123-9, CBCA, 68834-9, CMP ####[facility] ([id number])[address], [address] [place] [address] Magnesiumon 04-10-2023 Magnesium [Mass/Vol] 2.4 mg/dL 1.8 - 2 .6 mg/dL [facility] No Panel Informationon 04-10 [facility] Nuclear Ab IA Ql (S)on 04-10 Interpretation and review of laboratory results Abnormal [facility] KAY Screen w/reflex Positive Abnormal NEG [facility] Comment on above: Result Comment: Test ing performed using multiplex flowimmunoassay. Eleven different antigensassociated with systemic autoimmunediseases (dsDNA,Sm,Sm/PAPER CUP HANDLE MACHINE OPERATOR,PAPER CUP HANDLE MACHINE OPERATOR,Chromatin,SSA,SSB,Namrata-1,Scl70,Ribo P,Centromere B)are included in this screening test. Performed By: #### 1 8323-6, SPE, 56584-0, 23997-9, 72140-4, AHP, IMEL, 5130-0, 81502-3, 57395-4, 11789-4 ####[facility] ([id number])[address] [facility] [place] [id number] POTASSIUMon 04-10-2023 Potassium [Moles/Vol] 3.8 mmol/L Normal 3.5-5.0 [facility] Comment on above: Performed By: #### 2 823-3, 2951-2 ####[facility] ([id number])[address], [address] [place] [address] [id number] comment (Bld) [Interp]Ordered By: Radha Perry on 04-10-2023 [facility] Potassiumon 04-10-2023 Potassium [Moles/Vol] 3.8 mmol/L 3.5 - 5.0 mmol/L [facility] Procalcitoninon 04-10-2023 Procalcitonin IA [Mass/Vol] 0.15 ng/mL High NINF - 0.05 ng/mL [facility] Procalcitonin IA [Mass/Vol]o n 04-10-2023 PROCALCITONIN 0.15 ng/mL High <0.05 [facility] Comment on above: Result Comment: NOTE <0.50 ng/mL - Low risk of severe sepsis and/or septic shock.<2.00 ng/mL - Recommend retesting within 6-24 hours.>2.00 ng/mL - High risk of sepsis and/or septic shock. Performed By: #### 1 9123-9, CBCA, 11857-7, CMP ####[facility] ([id number])[address], [address] [place] [address] Interpretation and review of laboratory results Abnormal [facility] PAPER CUP HANDLE MACHINE OPERATOR AB IgGon 04-10-2023 Ribonucleoprotein extractable nuclear IgG Qn (S) 1.0 High [facility] Rheumatoid factoron 04-10-19 Rheumatoid factor Nephelometry Qn (S) 14 [facility] Rheumatoid factor Nephelomet ry Qn (S)on 04-10-2023 RHEUMATOID FACTOR 14 IU/mL Normal <20 [facility] Comment on above: Performed By: #### 1 8323-6, SPE, 19108-3, 22179-7, 80496-4, AHP, IMEL, 5130-0, 30575-3, 92981-4, 04327-5 ####[facility] ([id number])[address], [address] [place] [address] [facility] Ribonucleoprotein extractabl e nuclear IgG Qn (S)on 04-10-2023 Interpretation and review of laboratory results Abnormal [facility] PAPER CUP HANDLE MACHINE OPERATOR ANTIBODY IGG 1.0 AI High <1.0 [facility] Comment on above: Performed By: #### 1 8323-6, SPE, 18041-6, 54306-1, 97474-7, AHP, IMEL, 5130-0, 59699-6, 28228-9, 38661-1 ####[facility] ([id number])[address], [address] [place] [address] SERUM PROTEIN ELECTROPHORESI Formerly [facility] 04-10-2023 Albumin [Mass/Vol] 2.4 g/dL Low 3.4-5.3 [facility] Comment on above: Performed By: #### 1 8323-6, SPE, 62702-1, 99945-4, 42398-2, AHP, IMEL, 5130-0, 98746-0, 77750-9, 03158-6 ####[facility] ([id number])[address], [address] [place] [address] ALPHA 1 GLOBULIN 0.5 g/dL High 0.1-0.4 [facility] Comment on above: Performed By: #### 1 8323-6, SPE, 85962-0, 71203-4, 89386-8, AHP, IMEL, 5130-0, 90584-0, 70902-6, 38879-3 ####[facility] ([id number])[address], [address] [place] [address] ALPHA 2 GLOBULIN 1.1 g/dL Normal 0.4-1.1 [facility] Comment on above: Performed By: #### 1 8323-6, SPE, 16700-2, 46916-9, 50505-3, AHP, IMEL, 5130-0, 05341-9, 56160-4, 72050-2 ####[facility] ([id number])[address], [address] [place] [address] BETA GLOBULIN 0.9 g/dL Normal 0.5-1.2 [facility] Comment on above: Performed By: #### 1 8323-6, SPE, 48625-6, 34303-3, 44458-3, AHP, IMEL, 5130-0, 74929-1, 81871-6, 44220-8 ####[facility] ([id number])[address], [address] [place] [address] GAMMA GLOBULIN 0.7 g/dL Normal 0.5-1.6 [facility] Comment on above: Performed By: #### 1 8323-6, SPE, 07578-3, 16953-2, 40837-9, AHP, IMEL, 5130-0, 40779-7, 91815-0, 91858-2 ####[facility] ([id number])[address], [address], [place] [address] PROT. ELECTROPHORESIS INTERP SEE SEPARATE REPORT Normal [facility] Comment on above: Performed By: #### 1 8323-6, SPE, 48710-5, 83705-3, 29114-7, AHP, IMEL, 5130-0, 10075-5, 67619-1, 69490-6 ####[facility] ([id number])[address], [address] [place] [address] Protein [Mass/Vol] 5.7 g/dL Low 6.0-8.0 [facility] Comment on above: Performed By: #### 1 8323-6, SPE, 89136-1, 08281-7, 93115-6, AHP, IMEL, 5130-0, 51894-9, 08438-4, 87703-5 ####[facility] ([id number])[address], [address] [place] [address] SODIUMon 04-10-2023 Sodium [Moles/Vol] 152 mmol/L High 134-146 [facility] Comment on above: Performed By: #### 2 823-3, 2951-2 ####[facility] ([id number])[address], [address] [place] [address] Ruelas extractable nuclear Ab +Ribonucleoprotein extractable nuclear IgG Qn (S)on 04-10-2023 RUELAS/PAPER CUP HANDLE MACHINE OPERATOR AB IGG <0.2 Normal <1.0 [facility] Comment on above: Performed By: #### 1 8323-6, SPE, 19122-0, 08977-1, 59087-5, AHP, IMEL, 5130-0, 64936-5, 84527-3, 02028-8 ####[facility] ([id number])[address] [facility], [address] [place] [address]90 Ruelas extractable nuclear Ig G Qn (S)on 04-10-2023 ANTI-RUELAS AB IGG <0.2 Normal <1.0 [facility] Comment on above: Performed By: #### 1 8323-6, SPE, 55916-8, 75609-2, 25619-8, AHP, IMEL, 5130-0, 72606-6, 37324-3, 45913-5 ####[facility] ([id number])[address] [facility], [address] [place] [address] 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 IgGon 4 Ruelas extractable nuclear Ab+Ribonucleoprotein extractable nuclear IgG Qn (S) NINF [facility] Sodiumon 04-10-2023 Sodium [Moles/Vol] 152 mmol/L High 134 - 146 mmol/L [facility] Sodium [Moles/Vol]on 024 Interpretation and review of laboratory results Abnormal [facility] US ABDOMEN LMTDon 04-10-2023 US ABDOMEN LMTD Normal [facility] US Abdomen limitedon 024 [facility] (narrative) [facility] US Abdomen limitedOrdered By : Julio Cesar Gilliam on 04-10-2023 [facility] Work Phone: XR CHEST 1 VWon 04-10-2023 XR CHEST 1 VW Normal [facility] XR Chest Single viewon 04-10 SECTRAWVCS [facility] Radiology Study observation (narrative) [facility] APTTon 04-09-2023 aPTT Coag (PPP) [Time] 32 s Pr [facility] CBC AND AUTO DIFFon 04-09-19 24 ABSOLUTE BASOPHIL 0.0 X10E9/L Normal 0.0-0.2 [facility] Comment on above: Performed By: #### C BCA, CMP ####[facility] ([id number])[address], [address], [place] [address] ABSOLUTE NEUTROPHIL 8.7 X10E9/L High 1.5-6.6 [facility] Comment on above: Performed By: #### C BCA, CMP ####[facility] ([id number])[address], [address], [place] [address] Basophils/100 WBC (Bld) 0.2 % Normal [facility] Comment on above: Performed By: #### C BCA, CMP ####[facility] ([id number])[address], [address] [address] Eosinophils (Bld) [#/Vol] 0.2 10*3/uL Normal 0.0-0.4 [facility] Comment on above: Performed By: #### C BCA, CMP ####[facility] ([id number])[address] [address] [address] Eosinophils/100 WBC (Bld) 1.9 % Normal [facility] Comment on above: Performed By: #### C BCA, CMP ####[facility] ([id number])[address] [address], [place] [address] Erythrocyte distribution width (RBC) [Ratio] 15.4 % High 11.5-15.0 [facility] Comment on above: Performed By: #### C BCA, CMP ####[facility] ([id number])[address], [address], [place] [address] Hematocrit (Bld) [Volume fraction] 33.6 % Low 35-47 [facility] Comment on above: Performed By: #### C BCA, CMP ####[facility] ([id number])[address], [address], [place] [address] Hemoglobin (Bld) [Mass/Vol] 11.5 g/dL Low 11.7-15.5 [facility] Comment on above: Performed By: #### C BCA, CMP ####[facility] ([id number])[address], [address], [place] [address] Lymphocytes (Bld) [#/Vol] 0.9 10*3/uL Low 1.0-3.5 [facility] Comment on above: Performed By: #### C BCA, CMP ####[facility] ([id number])[address], [address], [place] [address] Lymphocytes/100 WBC (Bld) 8.3 % Normal [facility] Comment on above: Performed By: #### C BCA, CMP ####[facility] ([id number])[address], [address], [place] [address] MCH (RBC) [Entitic mass] 29.3 pg Normal 27-34 [facility] Comment on above: Performed By: #### C BCA, CMP ####[facility] ([id number])[address], [address], [place] [address] MCHC (RBC) [Mass/Vol] 34.1 g/dL Normal 32-36 [facility] Comment on above: Performed By: #### C BCA, CMP ####[facility] ([id number])[address], [address], [place] [address] MCV (RBC) [Entitic vol] 86 fL Normal 80-100 [facility] Comment on above: Performed By: #### C BCA, CMP ####[facility] ([id number])[address] [address], [place] [address] Monocytes (Bld) [#/Vol] 0.7 10*3/uL Normal 0-0.9 [facility] Comment on above: Performed By: #### C BCA, CMP ####[facility] ([id number])[address] [address] [place] [address] Monocytes/100 WBC (Bld) 6.9 % Normal [facility] Comment on above: Performed By: #### C [place], CMP ####[facility] ([id number])[address], [address] [address] Neutrophils/100 WBC (Bld) 82.7 % Normal [facility] Comment on above: Performed By: #### C [place], CMP ####[facility] ([id number])[address] [address] [place] [address] Platelet mean volume (Bld) [Entitic vol] 10.2 fL Normal 7-12 [facility] Comment on above: Performed By: #### C [place], CMP ####[facility] ([id number])[address] [address] [place] [address] Platelets (Bld) [#/Vol] 74 10*3/uL Low 150-450 P [facility] Comment on above: Performed By: #### C [place], CMP ####[facility] ([id number])[address] [address], [place] [address] RBC COUNT 3.91 X10E12/L Normal 3.80-5.20 [facility] Comment on above: Performed By: #### C [place], CMP ####[facility] ([id number])[address] [address] [place] [address] WBC (Bld) [#/Vol] 10.5 10*3/uL Normal 4.0-11.0 [facility] Comment on above: Performed By: #### C [place], CMP ####[facility] ([id number])[address] [address], [place] [address] CBC auto differentialon 01-0 -2023 Basophils (Bld) [#/Vol] 0.0 10*3/uL [facility] Basophils/100 WBC (Bld) 0.2 % [facility] Eosinophils (Bld) [#/Vol] 0.2 10*3/uL [facility] Eosinophils/100 WBC (Bld) 1.9 % [facility] Erythrocyte distribution width (RBC) [Ratio] 15.4 % High 11.5 - 15.0 % [facility] Hematocrit (Bld) [Volume fraction] 33.6 % Low 35 - 47 % [facility] Hemoglobin (Bld) [Mass/Vol] 11.5 g/dL Low 11.7 - 15.5 g/dL [facility] Interpretation and review of laboratory results Abnormal [facility] Lymphocytes (Bld) [#/Vol] 0.9 10*3/uL Low [facility] Lymphocytes/100 WBC (Bld) 8.3 % [facility] MCH (RBC) [Entitic mass] 29.3 pg 27 - 34 pg [facility] MCHC (RBC) [Mass/Vol] 34.1 g/dL 32 - 3 6 g/dL [facility] MCV (RBC) [Entitic vol] 86 fL 80 - 100 fL [facility] Monocytes (Bld) [#/Vol] 0.7 10*3/uL [facility] Monocytes/100 WBC (Bld) 6.9 % [facility] Neutrophils (Bld) [#/Vol] 8.7 10*3/uL High [facility] Neutrophils/100 WBC (Bld) 82.7 % [facility] Platelet mean volume (Bld) [Entitic vol] 10.2 fL 7 - 12 fL [facility] Platelets (Bld) [#/Vol] 74 10*3/uL Low P [facility] RBC (Bld) [#/Vol] 3.91 10*6/uL [facility] WBC corrected for nucl RBC Auto (Bld) [#/Vol] 10.5 [facility] COMPREHENSIVE METABOLIC PANE Dennis 04-09-2023 Albumin [Mass/Vol] 3.1 g/dL Low 3.2-5.3 [facility] Comment on above: Performed By: #### C BCA, CMP ####[facility] ([id number])[address], [address], [place] [address] ALP [Catalytic activity/Vol] 107 U/L Normal 39-130 [facility] Comment on above: Performed By: #### C BCA, CMP ####[facility] ([id number])[address], [place] [address] ALT [Catalytic activity/Vol] 64 U/L High 0-31 [facility] Comment on above: Performed By: #### C BCA, CMP ####[facility] ([id number])[address], [address], [place] [address] Anion gap [Moles/Vol] 7 mmol/L Normal 5-15 [facility] Comment on above: Performed By: #### C BCA, CMP ####[facility] ([id number])[address], [address], [place] [address] AST [Catalytic activity/Vol] 35 U/L Normal 0-41 [facility] Comment on above: Performed By: #### C BCA, CMP ####[facility] ([id number])[address], [address], [place] [address] Bilirubin [Mass/Vol] 0.7 mg/dL Normal 0.3-1.2 [facility] Comment on above: Performed By: #### C BCA, CMP ####[facility] ([id number])[address], [address], [place] [address] Calcium [Mass/Vol] 8.4 mg/dL Low 8.5-10.5 [facility] Comment on above: Performed By: #### C BCA, CMP ####[facility] ([id number])[address], [address], [place] [address] Chloride [Moles/Vol] 113 mmol/L High 98-109 [facility] Comment on above: Performed By: #### C BCA, CMP ####[facility] ([id number])[address], [address], [place] [address] CO2 [Moles/Vol] 26 mmol/L Normal 22-32 [facility] Comment on above: Performed By: #### C BCA, CMP ####[facility] ([id number])[address], [address], [place] [address] Creatinine [Mass/Vol] 0.74 mg/dL Normal 0.40-1.00 [facility] Comment on above: Result Comment: METH OD TRACEABLE TO IDMS STANDARD Performed By: #### C BCA, CMP ####[facility] ([id number])[address] [place] [address] GFR/1.73 sq M.predicted among non-blacks MDRD (S/P/Bld) [Vol rate/Area] 82 mL/min/{1.73_m2} Normal >59 [facility] Comment on above: Result Comment: Repo rted eGFR is based on theCKD-EPI 2020 equation that doesnot use a race coefficient. Performed By: #### C BCA, CMP ####[facility] ([id number])[address] [address] [place] [address] Glucose [Mass/Vol] 155 mg/dL High 65-99 [facility] Comment on above: Performed By: #### C BCA, CMP ####[facility] ([id number])[address] [address], [place] [address] Potassium [Moles/Vol] 3.5 mmol/L Normal 3.5-5.0 [facility] Comment on above: Performed By: #### C BCA, CMP ####[facility] ([id number])[address], [address], [place] [address] Protein [Mass/Vol] 6.1 g/dL Normal 6.0-8.0 [facility] Comment on above: Performed By: #### C BCA, CMP ####[facility] ([id number])[address], [address] [place] [address] Sodium [Moles/Vol] 146 mmol/L Normal 134-146 [facility] Comment on above: Performed By: #### C BCA, CMP ####[facility] ([id number])[address] [facility], [address], [place] [address] Urea nitrogen [Mass/Vol] 33 mg/dL High 5-27 [facility] Comment on above: Performed By: #### C BCA, CMP ####[facility] ([id number])[address] [facility], [address] [place] [address]RA[address] CONT[address] CT BRAIN WO CONT Normal [facility] CT Head WO contraston 2023 [facility] Study observation (narrative) [facility] CT Head WO contrastOrdered B y: Gabino Santos on 04-09-2023 [facility] Work Phone: Clinical Pathology Blood Sme ar Reviewon 04-09-2023 Clinical Pathology Blood Smear Review Normal [facility] Comment on above: Result Comment: [facility] [address] [place] [address] Clinical Pathology ReportPatient Name:ELLEN CHAN:1945 (Age: 78)Gender:FTaken:4Reported:4Physician(s):RY DE ANDA ([phone])Copy To: Rec. #:[id number]: #[id number] Pathologic DiagnosisPeripheral blood smear: Thrombocytopenia. See note.CommentNote: This is a chronic finding. The etiology is not evident. This may be due to splenic sequestration, ITP, liver disease, autoimmune disorders, drug or alcohol suppression, ineffective thrombopoiesis, etc. The remainder of the blood smear is unremarkable. Report Electronically Signed Outsps/04/10/2023Gabriela Castañeda MDInterpretation performed at [facility], [address] [place] [address], License number: [id number].Clinical JkugppbC49.0, R00.1 BLOOD SMEAR EVALUATIONCBC (04/09/2023 01:58): WBC = 10.5X10E9/L; HGB = 11.5g/dL; HCT = 33.6%; MCV = 86fL; PLT = 59B74C9/LOTHER LAB DATA: Retic count = 0.9%, haptoglobin = 318 mg/dL, iron saturation = 21%, folate= 12 ng/mL, vit B12= 416pg/mLBLOOD SMEAR:Leukocytes: There is slight neutrophilia, but no left shifting, toxic granulation or blasts. Lymphocytes and monocytes are unremarkable.Erythrocytes: Slight anisocytosis, occasional ovalocytes.Platelets: Decreased in number, morphologically unremarkable, no clumping.Specimen(s) Received Blood Smear for ReviewFee Codes(s):1; 12559 Cobalamin (Vitamin B12) [Mas s/Vol]on 04-09-2023 [facility] Comprehensive metabolic pane dennis 04-09-2023 Albumin [Mass/Vol] 3.1 g/dL Low 3.2 - 5.3 g/dL [facility] ALP [Catalytic activity/Vol] 107 U/L 39 - 130 U/L [facility] ALT No additional P-5'-P [Catalytic activity/Vol] 64 U/L High 0 - 31 U/L [facility] Anion gap [Moles/Vol] 7 mmol/L 5 - 15 mmol/L [facility] AST [Catalytic activity/Vol] 35 U/L 0 - 41 U/L [facility] Bilirubin [Mass/Vol] 0.7 mg/dL 0.3 - 1 .2 mg/dL [facility] Calcium [Mass/Vol] 8.4 mg/dL Low 8.5 - 10. 5 mg/dL [facility] Chloride [Moles/Vol] 113 mmol/L High 98 - 10 9 mmol/L [facility] CO2 [Moles/Vol] 26 mmol/L 22 - 32 mmol/L [facility] Creatinine [Mass/Vol] 0.74 mg/dL 0.40 - 1.00 mg/dL [facility] eGFR (CKD-EPI)non-race dependent 82 - PINF [facility] Glucose [Mass/Vol] 155 mg/dL High 65 - 99 mg/dL [facility] Interpretation and review of laboratory results Abnormal [facility] Potassium [Moles/Vol] 3.5 mmol/L 3.5 - 5.0 mmol/L [facility] Protein [Mass/Vol] 6.1 g/dL 6.0 - 8.0 g/dL [facility] Sodium [Moles/Vol] 146 mmol/L 134 - 146 mmol/L [facility] Urea nitrogen [Mass/Vol] 33 mg/dL High 5 - 27 mg/dL [facility] D-Dimeron 04-09-2023 Fibrin D-dimer DDU (PPP) [Mass/Vol] 45053 High NINF [facility] Direct Coombson 04-09-2023 Polyspecific MELE Negative [facility] FERRITINon 04-09-2023 Ferritin [Mass/Vol] 618 ng/mL High 11-307 [facility] Comment on above: Performed By: #### 2 276-4, 2951-2, 2132-9, 2284-8, FEPR ####[facility] ([id number])[address] [place] [address], [address] [place] [address] Ferritinon 04-09-2023 Ferritin [Mass/Vol] 618 ng/mL High 11 - 307 ng/mL [facility] Ferritin [Mass/Vol]on 2023 Interpretation and review of laboratory results Abnormal [facility] Fibrin D-dimer DDU (PPP) [Ma ss/Vol]on 04-09-2023 D DIMER 01951 ng/mL DDU High <255 [facility] Comment on above: Result Comment: Resu lts >=255ng/mL DDU: Results may beindicative of the presence of VTE. The useof the Wells score and further diagnostictests should be considered. Elevated D-Dimerlevels can also be associated with DIC,neoplasm, , trauma and liver disease.Elevated levels of rheumatoid factor may leadto an overestimation of the D-Dimer level. Performed By: #### P INR, 44884-9, 50230-5 ####[facility] ([id number])[address], [address] [place] [address] Fibrinogenon 04-09-2023 Fibrinogen Coagulation.derived (PPP) [Mass/Vol] 602 mg/dL High 190 - 480 mg/dL [facility] Fibrinogen Coagulation.deriv ed (PPP) [Mass/Vol]on 04-09-2023 FIBRINOGEN 602 mg/dL High 190-480 [facility] Comment on above: Performed By: #### 2 823-3, 67968-1, 4679-7, 07586-0, 2951-2, 2532-0 ####[facility] ([id number])[address], [address] [place] [address] Interpretation and review of laboratory results Abnormal [facility] Folateon 04-09-2023 Folate [Mass/Vol] 12.0 ng/mL 5.8 - PINF ng/mL [facility] Folate [Mass/Vol]on 04-09-19 24 FOLIC ACID 12.0 ng/mL Normal >5.8 [facility] Comment on above: Result Comment: NEW REFERENCE RANGE Performed By: #### 2 276-4, 2951-2, 2132-9, 2284-8, FEPR ####[facility] ([id number])[address], [address] [place] [address] [facility] Haptoglobinon 04-09-2023 Haptoglobin Nephelometry [Mass/Vol] 318 mg/dL High 32 - 228 mg/dL [facility] Haptoglobin Nephelometry [Ma ss/Vol]on 04-09-2023 HAPTOGLOBIN 318 mg/dL High 32-228 [facility] Comment on above: Performed By: #### 2 823-3, 41374-2, 4679-7, 46740-5, 2951-2, 2532-0 ####[facility] ([id number])[address], [address] [place] [address] Interpretation and review of laboratory results Abnormal [facility] IRON PROFILEon 04-09-2023 Iron [Mass/Vol] 45 ug/dL Low 50-170 [facility] Comment on above: Performed By: #### 2 276-4, 2951-2, 2-9, 4-8, FEPR ####[facility] ([id number])[address], [address] [place] [address] IRON BINDING 217 ug/dL Low 250-425 [facility] Comment on above: Performed By: #### 2 276-4, 2951-2, 2131-9, 4-8, FEPR ####[facility] ([id number])[address], [address] [place] [id number] IRON SATURATION 21 % SATURATION Normal 15-50 [facility] Comment on above: Performed By: #### 2 276-4, 2951-2, 2131-9, 4-8, FEPR ####[facility] ([id number])[address], [address] [place] [id number] Ionized magnesiumon 04-09-19 24 Magnesium Ionized ISE (Bld) [Moles/Vol] 0.75 mmol/L High 0.45 - 0.74 mmol/L [facility] Iron and TIBCon 04-09-2023 Iron [Mass/Vol] 45 ug/dL Low 50 - 170 ug/dL [facility] Iron binding capacity [Mass/Vol] 217 ug/dL Low 250 - 425 ug/dL [facility] Iron saturation [Mass fraction] 21 [facility] LDHon 04-09-2023 LDH [Catalytic activity/Vol] 297 U/L High 100 - 235 U/L [facility] LDH [Catalytic activity/Vol] on 04-09-2023 LDH 297 U/L High 100-235 [facility] Comment on above: Performed By: #### 2 823-3, 20365-2, 4679-7, 28841-0, 2951-2, 2532-0 ####[facility] ([id number])[address], [address] [place] [address] MAGNESIUMon 04-09-2023 Magnesium [Mass/Vol] 1.9 mg/dL Normal 1.8-2.6 [facility] Comment on above: Performed By: #### 1 9123-9, 2823-3, 2951-2 ####[facility] ([id number])[address], [address] [place] [address] Magnesiumon 04-09-2023 Magnesium [Mass/Vol] 1.9 mg/dL 1.8 - 2 .6 mg/dL [facility] Magnesium Ionized ISE (Bld) [Moles/Vol]on 04-09-2023 Magnesium [Moles/Vol] 0.75 mmol/L High 0.45-0.74 [facility] Comment on above: Result Comment: NEW REFERENCE RANGE Performed By: #### 7 3572-0 ####[facility] ([id number])[address], [address] [place] [address] Interpretation and review of laboratory results Abnormal [facility] No Panel Informationon 04-09 Interpretation and review of laboratory results Abnormal [facility] Interpretation and review of laboratory results Abnormal [facility] Interpretation and review of laboratory results Abnormal [facility] POTASSIUMon 04-09-2023 Potassium [Moles/Vol] 3.9 mmol/L Normal 3.5-5.0 [facility] Comment on above: Performed By: #### 2 823-3, 68548-3, 4679-7, 43425-6, 2951-2, 2532-0 ####[facility] ([id number])[address] [facility] [address] [place] [address] Potassium [Moles/Vol] 3.4 mmol/L Low 3.5-5.0 [facility] Comment on above: Performed By: #### 1 9123-9, 2823-3, 2951-2 ####[facility] ([id number])[address] [address] PROTIME AND INRon 04-09-2023 INR Coag (PPP) [Relative time] 1.1 {INR} Normal 0.8-1.1 [facility] Comment on above: Performed By: #### P INR, 06529-1, 57137-7 ####[facility] ([id number])[address] [address] PT Coag (PPP) [Time] 13.3 s High 9.8-13.2 [facility] Comment on above: Performed By: #### P INR, 60063-9, 20281-5 ####[facility] ([id number])[address] comment (Bld) [Interp]on 04-09-2023 STAFF REVIEW NOTE Normal [facility] Comment on above: Result Comment: [facility] [address] [place] [address] Clinical Pathology ReportPatient Name:ELLEN CHAN:1945 (Age:78)Gender:FTaken:4Reported:4Physician(s):JAMIE DE ANDA([phone])Copy To: Rec. #:[id number] Pathologic DiagnosisPeripheral blood smear: Thrombocytopenia. See note.CommentNote: This is a chronic finding. The etiology is not evident. Thismay be due to splenic sequestration, ITP, liver disease, autoimmunedisorders, drug or alcohol suppression, ineffective thrombopoiesis,etc. The remainder of the blood smear is unremarkable. Report Electronically Signed Outsps/04/10/2023Gabriela Castañeda MDInterpretation performed at [facility], [address] [place] [address], License number: [id number].Clinical DihjoyfO73.0, R00.1 BLOOD SMEAR EVALUATIONCBC (04/09/2023 01:58): WBC = 10.5X10E9/L; HGB = 11.5g/dL;HCT = 33.6%; MCV = 86fL; PLT = 59S84O2/LOTHER LAB DATA: Retic count = 0.9%, haptoglobin = 318 mg/dL, ironsaturation = 21%, folate= 12 ng/mL, vit B12= 416pg/mLBLOOD SMEAR:Leukocytes: There is slight neutrophilia, but no left shifting, toxicgranulation or blasts. Lymphocytes and monocytes are unremarkable.Erythrocytes: Slight anisocytosis, occasional ovalocytes.Platelets: Decreased in number, morphologically unremarkable, noclumping.Specimen(s) ReceivedBlood Smear for ReviewFee Codes(s):1; 86703 Potassiumon 04-09-2023 Potassium [Moles/Vol] 3.9 mmol/L 3.5 - 5.0 mmol/L [facility] Potassium [Moles/Vol] 3.4 mmol/L Low 3.5 - 5.0 mmol/L [facility] Potassium [Moles/Vol]on Interpretation and review of laboratory results Abnormal [facility] Protime & INRon 04-09-2023 INR Coag (PPP) [Relative time] 1.1 {INR} [facility] PT Coag (PPP) [Time] 13.3 s High [facility] Reticulocyteson 04-09-2023 Reticulocytes/100 RBC (Bld) 0.9 % 0.4 - 2.2 % [facility] Reticulocytes/100 RBC (Bld)o n 04-09-2023 RETICULOCYTE COUNT 0.9 % Normal 0.4-2.2 [facility] Comment on above: Performed By: #### 2 823-3, 51515-4, 4679-7, 32274-1, 2951-2, 2532-0 ####[facility] ([id number])[address], [address] [place] [address] [facility] SODIUMon 04-09-2023 Sodium [Moles/Vol] 151 mmol/L High 134-146 [facility] Comment on above: Performed By: #### 2 823-3, 96918-6, 4679-7, 39247-8, 2951-2, 2532-0 ####[facility] ([id number])[address], [address] [place] [address]49 Sodium [Moles/Vol] 149 mmol/L High 134-146 [facility] Comment on above: Performed By: #### 2 276-4, 2951-2, 2-9, 2284-8, FEPR ####[facility] ([id number])[address], [address] [place] [address]687 Sodium [Moles/Vol] 146 mmol/L Normal 134-146 [facility] Comment on above: Performed By: #### 1 9123-9, 2823-3, 2951-2 ####[facility] ([id number])[address], [address] [place] [address]362 Sodium [Moles/Vol] 148 mmol/L High 134-146 [facility] Comment on above: Performed By: #### 2 951-2 ####[facility] ([id number])[address], [address] [place] [address]103 Sodiumon 04-09-2023 Sodium [Moles/Vol] 151 mmol/L High 134 - 146 mmol/L [facility] Sodium [Moles/Vol] 149 mmol/L High 134 - 146 mmol/L [facility] Sodium [Moles/Vol] 146 mmol/L 134 - 146 mmol/L [facility] VITAMIN B12on 04-09-2023 Cobalamin (Vitamin B12) [Mass/Vol] 416 pg/mL Normal 180-914 [facility] Comment on above: Performed By: #### 2 276-4, 2951-2, 2132-9, 2284-8, FEPR ####[facility] ([id number])[address], [address] [place] [address]32 Vitamin B12on 04-09-2023 Cobalamin (Vitamin B12) [Mass/Vol] 416 pg/mL 180 - 914 pg/mL [facility] XR CHEST 1 VWon 04-09-2023 XR CHEST 1 VW Normal [facility] XR CHEST 1 VW Normal [facility] XR Chest Single viewon 04-09 [facility] (narrative) [facility] (narrative) [facility] XR Chest Single viewOrdered By: Arianne Rodrigues on 04-09-2023 [facility] Work Phone: aPTT Coag (PPP) [Time]on aPTT Coag (Bld) [Time] 32 s Normal 26-37 [facility] Comment on above: Performed By: #### P INR, 83368-1, 90058-3 ####[facility] ([id number])[address], [address] [place] [address]02 CBC AND AUTO DIFFon 04-08-19 24 ABSOLUTE BASOPHIL 0.0 X10E9/L Normal 0.0-0.2 [facility] Comment on above: Performed By: #### C MP, CBCA ####[facility] ([id number])[address], [address] [place] [address]47 ABSOLUTE NEUTROPHIL 10.2 X10E9/L High 1.5-6.6 [facility] Comment on above: Performed By: #### C MP, CBCA ####[facility] ([id number])[address], [address] [address] Basophils/100 WBC (Bld) 0.1 % Normal [facility] Comment on above: Performed By: #### C MP, CBCA ####[facility] ([id number])[address] [address] [address] Eosinophils (Bld) [#/Vol] 0.1 10*3/uL Normal 0.0-0.4 [facility] Comment on above: Performed By: #### C MP, CBCA ####[facility] ([id number])[address] [address] [address] Eosinophils/100 WBC (Bld) 1.0 % Normal [facility] Comment on above: Performed By: #### C MP, CBCA ####[facility] ([id number])[address] [address], [place] [address] Erythrocyte distribution width (RBC) [Ratio] 15.9 % High 11.5-15.0 [facility] Comment on above: Performed By: #### C MP, CBCA ####[facility] ([id number])[address] [address], [place] [address] Hematocrit (Bld) [Volume fraction] 36.4 % Normal 35-47 [facility] Comment on above: Performed By: #### C MP, CBCA ####[facility] ([id number])[address] [address] [address] Hemoglobin (Bld) [Mass/Vol] 12.0 g/dL Normal 11.7-15.5 [facility] Comment on above: Performed By: #### C MP, CBCA ####[facility] ([id number])[address] [address] [place] [address] Lymphocytes (Bld) [#/Vol] 0.9 10*3/uL Low 1.0-3.5 [facility] Comment on above: Performed By: #### C MP, CBCA ####[facility] ([id number])[address], [place] [address] Lymphocytes/100 WBC (Bld) 7.3 % Normal [facility] Comment on above: Performed By: #### C MP, CBCA ####[facility] ([id number])[address] [address], [place] [address] MCH (RBC) [Entitic mass] 28.7 pg Normal 27-34 [facility] Comment on above: Performed By: #### C MP, CBCA ####[facility] ([id number])[address] [address], [place] [address] MCHC (RBC) [Mass/Vol] 33.0 g/dL Normal 32-36 [facility] Comment on above: Performed By: #### C GUMARO, CBCA ####[facility] ([id number])[address] [address], [place] [address] MCV (RBC) [Entitic vol] 87 fL Normal 80-100 P [facility] Comment on above: Performed By: #### C MP, CBCA ####[facility] ([id number])[address] [address], [place] [address] Monocytes (Bld) [#/Vol] 0.7 10*3/uL Normal 0-0.9 [facility] Comment on above: Performed By: #### C MP, CBCA ####[facility] ([id number])[address] [address], [place] [address] Monocytes/100 WBC (Bld) 6.0 % Normal P [facility] Comment on above: Performed By: #### C MP, CBCA ####[facility] ([id number])[address] [address] [place] [address] Neutrophils/100 WBC (Bld) 85.6 % Normal [facility] Comment on above: Performed By: #### C GUMARO, CBCA ####[facility] ([id number])[address], [address] [place] [address]369 Platelet mean volume (Bld) [Entitic vol] 10.0 fL Normal 7-12 [facility] Comment on above: Performed By: #### C MP, CBCA ####[facility] ([id number])[address] [address] [place] [address] Platelets (Bld) [#/Vol] 66 10*3/uL Low 150-450 P [facility] Comment on above: Performed By: #### C GUMARO, CBCA ####[facility] ([id number])[address] [address] [place] [address] RBC COUNT 4.18 X10E12/L Normal 3.80-5.20 [facility] Comment on above: Performed By: #### C GUMARO, CBCA ####[facility] ([id number])[address] [address] WBC (Bld) [#/Vol] 11.8 10*3/uL High 4.0-11.0 [facility] Comment on above: Performed By: #### C MP, CBCA ####[facility] ([id number])[address] [address] CBC auto differentialon -0 Basophils (Bld) [#/Vol] 0.0 10*3/uL [facility] Basophils/100 WBC (Bld) 0.1 % P [facility] Eosinophils (Bld) [#/Vol] 0.1 10*3/uL [facility] Eosinophils/100 WBC (Bld) 1.0 % [facility] Erythrocyte distribution width (RBC) [Ratio] 15.9 % High 11.5 - 15.0 % [facility] Hematocrit (Bld) [Volume fraction] 36.4 % 35 - 47 % [facility] Hemoglobin (Bld) [Mass/Vol] 12.0 g/dL 11.7 - 15.5 g/dL [facility] Interpretation and review of laboratory results Abnormal [facility] Lymphocytes (Bld) [#/Vol] 0.9 10*3/uL Low [facility] Lymphocytes/100 WBC (Bld) 7.3 % [facility] MCH (RBC) [Entitic mass] 28.7 pg 27 - 34 pg [facility] MCHC (RBC) [Mass/Vol] 33.0 g/dL 32 - 3 6 g/dL [facility] MCV (RBC) [Entitic vol] 87 fL 80 - 100 fL [facility] Monocytes (Bld) [#/Vol] 0.7 10*3/uL [facility] Monocytes/100 WBC (Bld) 6.0 % P [facility] Neutrophils (Bld) [#/Vol] 10.2 10*3/uL High [facility] Neutrophils/100 WBC (Bld) 85.6 % [facility] Platelet mean volume (Bld) [Entitic vol] 10.0 fL 7 - 12 fL [facility] Platelets (Bld) [#/Vol] 66 10*3/uL Low P [facility] RBC (Bld) [#/Vol] 4.18 10*6/uL [facility] WBC corrected for nucl RBC Auto (Bld) [#/Vol] 11.8 High [facility] COMPREHENSIVE METABOLIC PANE Dennis 04-08-2023 Albumin [Mass/Vol] 3.2 g/dL Normal 3.2-5.3 [facility] Comment on above: Performed By: #### C MP, CBCA ####[facility] ([id number])[address], [address] [place] [address] ALP [Catalytic activity/Vol] 105 U/L Normal 39-130 [facility] Comment on above: Performed By: #### C GUMARO, CBCA ####[facility] ([id number])[address], [address], [place] [address] ALT [Catalytic activity/Vol] 60 U/L High 0-31 [facility] Comment on above: Performed By: #### C MP, CBCA ####[facility] ([id number])[address], [address], [place] [address] Anion gap [Moles/Vol] 12 mmol/L Normal 5-15 [facility] Comment on above: Performed By: #### C GUMARO, CBCA ####[facility] ([id number])[address], [address], [place] [address] AST [Catalytic activity/Vol] 40 U/L Normal 0-41 [facility] Comment on above: Performed By: #### C GUMARO, CBCA ####[facility] ([id number])[address], [address], [place] [address] Bilirubin [Mass/Vol] 0.7 mg/dL Normal 0.3-1.2 [facility] Comment on above: Performed By: #### C GUMARO, CBCA ####[facility] ([id number])[address], [address], [place] [address] Calcium [Mass/Vol] 8.9 mg/dL Normal 8.5-10.5 [facility] Comment on above: Performed By: #### C GUMARO, CBCA ####[facility] ([id number])[address], [address], [place] [address] Chloride [Moles/Vol] 117 mmol/L High 98-109 [facility] Comment on above: Performed By: #### C GUMARO, CBCA ####[facility] ([id number])[address], [address], [place] [address] CO2 [Moles/Vol] 29 mmol/L Normal 22-32 [facility] Comment on above: Performed By: #### C GUMARO CBCA ####[facility] ([id number])[address] [address] [place] [address] Creatinine [Mass/Vol] 0.97 mg/dL Normal 0.40-1.00 [facility] Comment on above: Result Comment: METH OD TRACEABLE TO IDMS STANDARD Performed By: #### C GUMARO CBCRey ####[facility] ([id number])[address] [address], [place] [address] GFR/1.73 sq M.predicted among non-blacks MDRD (S/P/Bld) [Vol rate/Area] 59 mL/min/{1.73_m2} Low >59 [facility] Comment on above: Result Comment: Repo rted eGFR is based on theCKD-EPI 2020 equation that doesnot use a race coefficient. Performed By: #### C GUMARO CBCRey ####[facility] ([id number])[address] [address], [place] [address] Glucose [Mass/Vol] 135 mg/dL High 65-99 [facility] Comment on above: Performed By: #### C JA NAIK ####[facility] ([id number])[address] [address] [place] [address] Potassium [Moles/Vol] 3.5 mmol/L Normal 3.5-5.0 [facility] Comment on above: Performed By: #### C GUMARO CBCRey ####[facility] ([id number])[address] [address] [place] [address] Protein [Mass/Vol] 6.4 g/dL Normal 6.0-8.0 [facility] Comment on above: Performed By: #### C GUMARO CBCA ####[facility] ([id number])[address] [address], [place] [address] Sodium [Moles/Vol] 158 mmol/L High 134-146 [facility] Comment on above: Performed By: #### C ELIAS NAIKA ####[facility] ([id number])[address], [place] [address] Urea nitrogen [Mass/Vol] 54 mg/dL High 5-27 [facility] Comment on above: Performed By: #### C GUMARO, CBCA ####[facility] ([id number])[address], [address], [place] [address] Comprehensive metabolic pane dennis 04-08-2023 Albumin [Mass/Vol] 3.2 g/dL 3.2 - 5.3 g/dL [facility] ALP [Catalytic activity/Vol] 105 U/L 39 - 130 U/L [facility] ALT No additional P-5'-P [Catalytic activity/Vol] 60 U/L High 0 - 31 U/L [facility] Anion gap [Moles/Vol] 12 mmol/L 5 - 15 mmol/L [facility] AST [Catalytic activity/Vol] 40 U/L 0 - 41 U/L [facility] Bilirubin [Mass/Vol] 0.7 mg/dL 0.3 - 1 .2 mg/dL [facility] Calcium [Mass/Vol] 8.9 mg/dL 8.5 - 10. 5 mg/dL [facility] Chloride [Moles/Vol] 117 mmol/L High 98 - 10 9 mmol/L [facility] CO2 [Moles/Vol] 29 mmol/L 22 - 32 mmol/L [facility] Creatinine [Mass/Vol] 0.97 mg/dL 0.40 - 1.00 mg/dL [facility] eGFR (CKD-EPI)non-race dependent 59 Low - PINF [facility] Glucose [Mass/Vol] 135 mg/dL High 65 - 99 mg/dL [facility] Interpretation and review of laboratory results Abnormal [facility] Potassium [Moles/Vol] 3.5 mmol/L 3.5 - 5.0 mmol/L [facility] Protein [Mass/Vol] 6.4 g/dL 6.0 - 8.0 g/dL [facility] Sodium [Moles/Vol] 158 mmol/L High 134 - 146 mmol/L [facility] Urea nitrogen [Mass/Vol] 54 mg/dL High 5 - 27 mg/dL [facility] No Panel Informationon 04-08 [facility] POTASSIUMon 04-08-2023 Potassium [Moles/Vol] 3.5 mmol/L Normal 3.5-5.0 [facility] Comment on above: Performed By: #### 2 823-3, 2951-2 ####[facility] ([id number])[address], [address] [address] Potassiumon 04-08-2023 Potassium [Moles/Vol] 3.5 mmol/L 3.5 - 5.0 mmol/L [facility] SODIUMon 04-08-2023 Sodium [Moles/Vol] 152 mmol/L High 134-146 [facility] Comment on above: Performed By: #### 2 951-2 ####[facility] ([id number])[address] [facility] [address] [place] [address] Sodium [Moles/Vol] 155 mmol/L High 134-146 [facility] Comment on above: Performed By: #### 2 823-3, 2951-2 ####[facility] ([id number])[address], [address] [address] Sodiumon 04-08-2023 Sodium [Moles/Vol] 148 mmol/L High 134 - 146 mmol/L [facility] Sodium [Moles/Vol] 152 mmol/L High 134 - 146 mmol/L [facility] Sodium [Moles/Vol] 155 mmol/L High 134 - 146 mmol/L [facility] Sodium [Moles/Vol]on 024 Interpretation and review of laboratory results Abnormal [facility] Interpretation and review of laboratory results Abnormal [facility] Interpretation and review of laboratory results Abnormal [facility] XR CHEST 1 VWon 04-08-2023 XR CHEST 1 VW Normal [facility] XR Chest Single viewon 04-08 [facility] Radiology Study observation (narrative) [facility] ARTERIAL BLOOD GASon 023 SHIRAZ'S TEST Pass Normal [facility] Comment on above: Performed By: #### A BG ####[facility] ([id number])[address] [place] [address] Base excess Calc (Bld) [Moles/Vol] 4.0 mmol/L High 0.0-2.0 [facility] Comment on above: Performed By: #### A BG ####[facility] ([id number])[address] [facility] [place] [place] [address] Body temperature 98.6 [degF] Normal 37.0 [facility] Comment on above: Performed By: #### A BG ####[facility] ([id number])[address] [facility] [place] [place] [address] HCO3 (Bld) [Moles/Vol] 26.6 mmol/L High 22-26 P [facility] Comment on above: Performed By: #### A BG ####[facility] ([id number])[address] [place] [address] INSP. O2 CONC. 44 % Normal [facility] Comment on above: Performed By: #### A BG ####[facility] ([id number])[address] [facility] [place] [address] Oxygen (Bld) [Partial pressure] 67 mm[Hg] Low 80-100 [facility] Comment on above: Performed By: #### A BG ####[facility] ([id number])[address] [facility] [place] [address] Oxygen saturation in Blood 95.0 % Normal >90 [facility] Comment on above: Performed By: #### A BG ####[facility] ([id number])[address] [place] [address] OXYGEN SOURCE NC Normal [facility] Comment on above: Performed By: #### A BG ####[facility] ([id number])[address] [facility] [place] [address] PCO2 33.3 MMHG Low 35-45 [facility] Comment on above: Performed By: #### A BG ####[facility] ([id number])[address] [place] [address] pH (Bld) 7.510 [pH] High 7.350-7.45 0 [facility] Comment on above: Performed By: #### A BG ####[facility] ([id number])[address] [place] [address] SAMPLE SITE RRad Normal [facility] Comment on above: Performed By: #### A BG ####[facility] ([id number])[address] [place] [address] SAMPLE TYPE ARTERIAL Normal [facility] Comment on above: Performed By: #### A BG ####[facility] ([id number])[address] [place] [address] Blood Gas, Arterialon 2022 Arterial patency Wrist artery --pre arterial puncture Pass [facility] Base excess Calc (Bld) [Moles/Vol] 4.0 mmol/L High [facility] CO2 (Bld) [Partial pressure] 33.3 mm[Hg] Low [facility] HCO3 (Bld) [Moles/Vol] 26.6 mmol/L High P [facility] Interpretation and review of laboratory results Abnormal [facility] Oxygen (Bld) [Partial pressure] 67 mm[Hg] Low [facility] Oxygen therapy source and amount [CARE] NC [facility] Oxygen/Inspired gas setting [Volume Fraction] Ventilator 44 % [facility] pH (Bld) 7.510 [pH] High 7.350 - 7.450 [facility] Specimen site Narrative RRad P [facility] Specimen type Nom (Spec) ARTERIAL [facility] CBC AND AUTO DIFFon 04-07-20 ABSOLUTE BASOPHIL 0.0 [id number] Normal 0.0-0.2 [place] [facility] Comment on above: Performed By: #### C MP, CBCA ####[facility] ([id number])[address] [address] ABSOLUTE NEUTROPHIL 13.3 X10E9/L High 1.5-6.6 [facility] Comment on above: Performed By: #### C GUMARO, CBCA ####[facility] ([id number])[address] [address] Basophils/100 WBC (Bld) 0.1 % Normal [facility] Comment on above: Performed By: #### C MP, CBCA ####[facility] ([id number])[address] [address] Eosinophils (Bld) [#/Vol] 0.0 10*3/uL Normal 0.0-0.4 [facility] Comment on above: Performed By: #### C GUMARO, CBCA ####[facility] ([id number])[address], [address] [address] Eosinophils/100 WBC (Bld) 0.0 % Normal [facility] Comment on above: Performed By: #### C MP, CBCA ####[facility] ([id number])[address], [address] [address] Erythrocyte distribution width (RBC) [Ratio] 15.9 % High 11.5-15.0 [facility] Comment on above: Performed By: #### C MP, CBCA ####[facility] ([id number])[address], [address] [address] Hematocrit (Bld) [Volume fraction] 38.6 % Normal 35-47 [facility] Comment on above: Performed By: #### C MP, CBCA ####[facility] ([id number])[address], [address], [place] [address] Hemoglobin (Bld) [Mass/Vol] 12.7 g/dL Normal 11.7-15.5 [facility] Comment on above: Performed By: #### C MP, CBCA ####[facility] ([id number])[address] [address] [place] [address] Lymphocytes (Bld) [#/Vol] 0.7 10*3/uL Low 1.0-3.5 [facility] Comment on above: Performed By: #### C MP, CBCA ####[facility] ([id number])[address] [address] [place] [address] Lymphocytes/100 WBC (Bld) 4.5 % Normal [facility] Comment on above: Performed By: #### C GUMARO, CBCA ####[facility] ([id number])[address] [address] [place] [address], [place] [address] MCH (RBC) [Entitic mass] 28.6 pg Normal 27-34 [facility] Comment on above: Performed By: #### C MP, CBCA ####[facility] ([id number])[address] [address] [place] [address] MCHC (RBC) [Mass/Vol] 32.8 g/dL Normal 32-36 [facility] Comment on above: Performed By: #### C MP, CBCA ####[facility] ([id number])[address] [address], [place] [address] MCV (RBC) [Entitic vol] 87 fL Normal 80-100 P [facility] Comment on above: Performed By: #### C MP, CBCA ####[facility] ([id number])[address], [address], [place] [address] Monocytes (Bld) [#/Vol] 0.8 10*3/uL Normal 0-0.9 [facility] Comment on above: Performed By: #### C MP, CBCA ####[facility] ([id number])[address], [address], [place] [address] Monocytes/100 WBC (Bld) 5.6 % Normal [facility] Comment on above: Performed By: #### C MP, CBCA ####[facility] ([id number])[address], [address], [place] [address] Neutrophils/100 WBC (Bld) 89.8 % Normal [facility] Comment on above: Performed By: #### C MP, CBCA ####[facility] ([id number])[address], [address], [place] [address] Platelet mean volume (Bld) [Entitic vol] 10.8 fL Normal 7-12 [facility] Comment on above: Performed By: #### C MP, CBCA ####[facility] ([id number])[address], [address], [place] [address] Platelets (Bld) [#/Vol] 58 10*3/uL Low 150-450 P [facility] Comment on above: Performed By: #### C MP, CBCA ####[facility] ([id number])[address], [address], [place] [address] RBC COUNT 4.43 X10E12/L Normal 3.80-5.20 [facility] Comment on above: Performed By: #### C MP, CBCA ####[facility] ([id number])[address], [address], [place] [address] WBC (Bld) [#/Vol] 14.8 10*3/uL High 4.0-11.0 [facility] Comment on above: Performed By: #### C JA NAIK ####[facility] ([id number])[address] [facility], [address], [place] [address] CBC auto differentialon 03-10 Basophils (Bld) [#/Vol] 0.0 10*3/uL [facility] Basophils/100 WBC (Bld) 0.1 % [facility] Eosinophils (Bld) [#/Vol] 0.0 10*3/uL [facility] Eosinophils/100 WBC (Bld) 0.0 % [facility] Erythrocyte distribution width (RBC) [Ratio] 15.9 % High 11.5 - 15.0 % [facility] Hematocrit (Bld) [Volume fraction] 38.6 % 35 - 47 % [facility] Hemoglobin (Bld) [Mass/Vol] 12.7 g/dL 11.7 - 15.5 g/dL [facility] Interpretation and review of laboratory results Abnormal [facility] Lymphocytes (Bld) [#/Vol] 0.7 10*3/uL Low [facility] Lymphocytes/100 WBC (Bld) 4.5 % [facility] MCH (RBC) [Entitic mass] 28.6 pg 27 - 34 pg [facility] MCHC (RBC) [Mass/Vol] 32.8 g/dL 32 - 3 6 g/dL [facility] MCV (RBC) [Entitic vol] 87 fL 80 - 100 fL [facility] Monocytes (Bld) [#/Vol] 0.8 10*3/uL [facility] Monocytes/100 WBC (Bld) 5.6 % [facility] Neutrophils (Bld) [#/Vol] 13.3 10*3/uL High [facility] Neutrophils/100 WBC (Bld) 89.8 % [facility] Platelet mean volume (Bld) [Entitic vol] 10.8 fL 7 - 12 fL [facility] Platelets (Bld) [#/Vol] 58 10*3/uL Low P [facility] RBC (Bld) [#/Vol] 4.43 10*6/uL [facility] WBC corrected for nucl RBC Auto (Bld) [#/Vol] 14.8 High [facility] COMPREHENSIVE METABOLIC PANE Dennis 04-07-2023 Albumin [Mass/Vol] 3.5 g/dL Normal 3.2-5.3 [facility] Comment on above: Performed By: #### C GUMARO, CBCA ####[facility] ([id number])[address], [address], [place] [address] ALP [Catalytic activity/Vol] 104 U/L Normal 39-130 [facility] Comment on above: Performed By: #### C GUMARO, CBCA ####[facility] ([id number])[address], [address], [place] [address] ALT [Catalytic activity/Vol] 56 U/L High 0-31 [facility] Comment on above: Performed By: #### C GUMARO, CBCA ####[facility] ([id number])[address], [address], [place] [address] Anion gap [Moles/Vol] 11 mmol/L Normal 5-15 [facility] Comment on above: Performed By: #### C GUMARO, CBCA ####[facility] ([id number])[address], [address], [place] [address] AST [Catalytic activity/Vol] 39 U/L Normal 0-41 [facility] Comment on above: Performed By: #### C GUMARO, CBCA ####[facility] ([id number])[address], [address], [place] [address] Bilirubin [Mass/Vol] 0.9 mg/dL Normal 0.3-1.2 [facility] Comment on above: Performed By: #### C GUMARO, CBCA ####[facility] ([id number])[address], [address], [place] [address] Calcium [Mass/Vol] 9.2 mg/dL Normal 8.5-10.5 [facility] Comment on above: Performed By: #### C JA NAIK ####[facility] ([id number])[address], [address], [place] [address] Chloride [Moles/Vol] 116 mmol/L High 98-109 [facility] Comment on above: Performed By: #### C GUMARO, CBCA ####[facility] ([id number])[address], [address], [place] [address] CO2 [Moles/Vol] 30 mmol/L Normal 22-32 [facility] Comment on above: Performed By: #### Batsheva NAIK CBCRey ####[facility] ([id number])[address] [address] [place] [address] Creatinine [Mass/Vol] 1.11 mg/dL High 0.40-1.00 [facility] Comment on above: Result Comment: METH OD TRACEABLE TO IDMS STANDARD Performed By: #### C JA NAIK ####[facility] ([id number])[address] [address] [place] [address] GFR/1.73 sq M.predicted among non-blacks MDRD (S/P/Bld) [Vol rate/Area] 50 mL/min/{1.73_m2} Low >59 [facility] Comment on above: Result Comment: Repo rted eGFR is based on theCKD-EPI 2020 equation that doesnot use a race coefficient. Performed By: #### C JA NAIK ####[facility] ([id number])[address] [address] [place] [address] Glucose [Mass/Vol] 112 mg/dL High 65-99 [facility] Comment on above: Performed By: #### Batsheva NAIK CBCA ####[facility] ([id number])[address], [address] [place] [address] Potassium [Moles/Vol] 4.0 mmol/L Normal 3.5-5.0 [facility] Comment on above: Performed By: #### C GUMARO, CBCA ####[facility] ([id number])[address], [address], [place] [address] Protein [Mass/Vol] 6.9 g/dL Normal 6.0-8.0 [facility] Comment on above: Performed By: #### C GUMARO, CBCA ####[facility] ([id number])[address], [address] [place] [address] Sodium [Moles/Vol] 157 mmol/L High 134-146 [facility] Comment on above: Performed By: #### C GUMARO, CBCA ####[facility] ([id number])[address], [address] [place] [address] Urea nitrogen [Mass/Vol] 53 mg/dL High 5-27 [facility] Comment on above: Performed By: #### C GUMARO, CBCA ####[facility] ([id number])[address], [address] [place] [address]RAIN WO CONTon CT BRAIN WO CONT Normal [facility] Comprehensive metabolic pane dennis 04-07-2023 Albumin [Mass/Vol] 3.5 g/dL 3.2 - 5.3 g/dL [facility] ALP [Catalytic activity/Vol] 104 U/L 39 - 130 U/L [facility] ALT No additional P-5'-P [Catalytic activity/Vol] 56 U/L High 0 - 31 U/L [facility] Anion gap [Moles/Vol] 11 mmol/L 5 - 15 mmol/L [facility] AST [Catalytic activity/Vol] 39 U/L 0 - 41 U/L [facility] Bilirubin [Mass/Vol] 0.9 mg/dL 0.3 - 1 .2 mg/dL [facility] Calcium [Mass/Vol] 9.2 mg/dL 8.5 - 10. 5 mg/dL [facility] Chloride [Moles/Vol] 116 mmol/L High 98 - 10 9 mmol/L [facility] CO2 [Moles/Vol] 30 mmol/L 22 - 32 mmol/L [facility] Creatinine [Mass/Vol] 1.11 mg/dL High 0.40 - 1.00 mg/dL [facility] eGFR (CKD-EPI)non-race dependent 50 Low - PINF [facility] Glucose [Mass/Vol] 112 mg/dL High 65 - 99 mg/dL [facility] Interpretation and review of laboratory results Abnormal [facility] Potassium [Moles/Vol] 4.0 mmol/L 3.5 - 5.0 mmol/L [facility] Protein [Mass/Vol] 6.9 g/dL 6.0 - 8.0 g/dL [facility] Sodium [Moles/Vol] 157 mmol/L High 134 - 146 mmol/L [facility] Urea nitrogen [Mass/Vol] 53 mg/dL High 5 - 27 mg/dL [facility] Glucose Glucometer (BldC) [M ass/Vol]on 04-07-2023 Glucose [Mass/Vol] 111 mg/dL High 65-99 [facility] Glucose [Mass/Vol] 111 mg/dL High 65 - 99 mg/dL [facility] Interpretation and review of laboratory results Abnormal [facility] XR CHEST 1 VWon 04-07-2023 XR CHEST 1 VW Normal [facility] XR Chest Single viewon 04-07 SECTRAPACS [facility] Radiology Study observation (narrative) [facility] XR Chest Single viewOrdered By: Rajan Mtz on 04-07-2023 [facility] Work Phone: ARTERIAL BLOOD GASon 023 SHIRAZ'S TEST Pass Normal [facility] Comment on above: Performed By: #### A BG ####[facility] ([id number])[address] [place] [address] Base excess Calc (Bld) [Moles/Vol] 2.0 mmol/L Normal 0.0-2.0 [facility] Comment on above: Performed By: #### A BG ####[facility] ([id number])[address] [place] [address] Body temperature 98.6 [degF] Normal 37.0 [facility] Comment on above: Performed By: #### A BG ####[facility] ([id number])[address] [facility] [address] HCO3 (Bld) [Moles/Vol] 23.6 mmol/L Normal 22-26 [facility] Comment on above: Performed By: #### A BG ####[facility] ([id number])[address] [facility] [address] INSP. O2 CONC. 28 % Normal [facility] Comment on above: Performed By: #### A BG ####[facility] ([id number])[address] [facility] [place] [address] Oxygen (Bld) [Partial pressure] 54 mm[Hg] Low 80-100 [facility] Comment on above: Performed By: #### A BG ####[facility] ([id number])[address] [facility] [place] [address] Oxygen saturation in Blood 92.0 % Normal >90 [facility] Comment on above: Performed By: #### A BG ####[facility] ([id number])[address] [facility] [address] OXYGEN SOURCE [facility] Comment on above: Performed By: #### A BG ####[facility] ([id number])[address] [place] [address] PCO2 28.0 MMHG Low 35-45 [facility] Comment on above: Performed By: #### A BG ####[facility] ([id number])[address] [place] [address] pH (Bld) 7.535 [pH] High 7.350-7.45 0 [facility] Comment on above: Performed By: #### A BG ####[facility] ([id number])[address] [place] [address] SAMPLE SITE RRad Normal [facility] Comment on above: Performed By: #### A BG ####[facility] ([id number])[address] [place] [address] SAMPLE TYPE ARTERIAL Normal [facility] Comment on above: Performed By: #### A BG ####[facility] ([id number])[address] [place] [address] Blood Gas, Arterialon 2022 Arterial patency Wrist artery --pre arterial puncture Pass [facility] Base excess Calc (Bld) [Moles/Vol] 2.0 mmol/L [facility] CO2 (Bld) [Partial pressure] 28.0 mm[Hg] Low [facility] HCO3 (Bld) [Moles/Vol] 23.6 mmol/L [facility] Interpretation and review of laboratory results Abnormal [facility] Oxygen (Bld) [Partial pressure] 54 mm[Hg] Low [facility] Oxygen therapy source and amount [CARE] [facility] Oxygen/Inspired gas setting [Volume Fraction] Ventilator 28 % [facility] pH (Bld) 7.535 [pH] High 7.350 - 7.450 [facility] Specimen site Narrative RRad P [facility] Specimen type Nom (Spec) ARTERIAL [facility] CBC AND AUTO DIFFon 04-06-20 ABSOLUTE BASOPHIL 0.0 X10E9/L Normal 0.0-0.2 [facility] Comment on above: Performed By: #### C MP, CBCA ####[facility] ([id number])[address] [facility] [address], [place] [address] ABSOLUTE NEUTROPHIL 14.5 X10E9/L High 1.5-6.6 [facility] Comment on above: Performed By: #### C MP, CBCA ####[facility] ([id number])[address] [address], [place] [address] Basophils/100 WBC (Bld) 0.1 % Normal P [facility] Comment on above: Performed By: #### C MP, CBCA ####[facility] ([id number])[address] [address] [place] [address] Eosinophils (Bld) [#/Vol] 0.0 10*3/uL Normal 0.0-0.4 [facility] Comment on above: Performed By: #### C GUMARO, CBCA ####[facility] ([id number])[address] [address] Eosinophils/100 WBC (Bld) 0.2 % Normal [facility] Comment on above: Performed By: #### C GUMARO, CBCA ####[facility] ([id number])[address] [address] Erythrocyte distribution width (RBC) [Ratio] 15.8 % High 11.5-15.0 [facility] Comment on above: Performed By: #### C GUMARO, CBCA ####[facility] ([id number])[address] [address] Hematocrit (Bld) [Volume fraction] 40.3 % Normal 35-47 [facility] Comment on above: Performed By: #### C MP, CBCA ####[facility] ([id number])[address] [address] Hemoglobin (Bld) [Mass/Vol] 13.1 g/dL Normal 11.7-15.5 [facility] Comment on above: Performed By: #### C MP, CBCA ####[facility] ([id number])[address] [address] [address] Lymphocytes (Bld) [#/Vol] 0.9 10*3/uL Low 1.0-3.5 [facility] Comment on above: Performed By: #### C MP, CBCA ####[facility] ([id number])[address] [address] Lymphocytes/100 WBC (Bld) 5.2 % Normal [facility] Comment on above: Performed By: #### C MP, CBCA ####[facility] ([id number])[address] [address] [address] MCH (RBC) [Entitic mass] 28.2 pg Normal 27-34 [facility] Comment on above: Performed By: #### C MP, CBCA ####[facility] ([id number])[address] [address] [address] MCHC (RBC) [Mass/Vol] 32.5 g/dL Normal 32-36 [facility] Comment on above: Performed By: #### C MP, CBCA ####[facility] ([id number])[address] [address] [address] MCV (RBC) [Entitic vol] 87 fL Normal 80-100 P [facility] Comment on above: Performed By: #### C MP, CBCA ####[facility] ([id number])[address] [address] [address] Monocytes (Bld) [#/Vol] 0.9 10*3/uL Normal 0-0.9 [facility] Comment on above: Performed By: #### C MP, CBCA ####[facility] ([id number])[address] [address] [place] [address] Monocytes/100 WBC (Bld) 5.6 % Normal [facility] Comment on above: Performed By: #### C MP, CBCA ####[facility] ([id number])[address] [address] Neutrophils/100 WBC (Bld) 88.9 % Normal [facility] Comment on above: Performed By: #### C MP, CBCA ####[facility] ([id number])[address] [address] Platelet mean volume (Bld) [Entitic vol] 9.9 fL Normal 7-12 [facility] Comment on above: Performed By: #### C MP, CBCA ####[facility] ([id number])[address] [address] Platelets (Bld) [#/Vol] 69 10*3/uL Low 150-450 [facility] Comment on above: Performed By: #### C MP, CBCA ####[facility] ([id number])[address] [address] RBC COUNT 4.64 X10E12/L Normal 3.80-5.20 [facility] Comment on above: Performed By: #### C MP, CBCA ####[facility] ([id number])[address] [address] WBC (Bld) [#/Vol] 16.3 10*3/uL High 4.0-11.0 [facility] Comment on above: Performed By: #### C MP, CBCA ####[facility] ([id number])[address] [address] CBC auto differentialon 12- 0-2022 Basophils (Bld) [#/Vol] 0.0 10*3/uL [facility] Basophils/100 WBC (Bld) 0.1 % [facility] Eosinophils (Bld) [#/Vol] 0.0 10*3/uL [facility] Eosinophils/100 WBC (Bld) 0.2 % [facility] Erythrocyte distribution width (RBC) [Ratio] 15.8 % High 11.5 - 15.0 % [facility] Hematocrit (Bld) [Volume fraction] 40.3 % 35 - 47 % [facility] Hemoglobin (Bld) [Mass/Vol] 13.1 g/dL 11.7 - 15.5 g/dL [facility] Interpretation and review of laboratory results Abnormal [facility] Lymphocytes (Bld) [#/Vol] 0.9 10*3/uL Low [facility] Lymphocytes/100 WBC (Bld) 5.2 % [facility] MCH (RBC) [Entitic mass] 28.2 pg 27 - 34 pg [facility] MCHC (RBC) [Mass/Vol] 32.5 g/dL 32 - 3 6 g/dL [facility] MCV (RBC) [Entitic vol] 87 fL 80 - 100 fL [facility] Monocytes (Bld) [#/Vol] 0.9 10*3/uL [facility] Monocytes/100 WBC (Bld) 5.6 % P [facility] Neutrophils (Bld) [#/Vol] 14.5 10*3/uL High [facility] Neutrophils/100 WBC (Bld) 88.9 % [facility] Platelet mean volume (Bld) [Entitic vol] 9.9 fL 7 - 12 fL [facility] Platelets (Bld) [#/Vol] 69 10*3/uL Low P [facility] RBC (Bld) [#/Vol] 4.64 10*6/uL [facility] WBC corrected for nucl RBC Auto (Bld) [#/Vol] 16.3 High [facility] COMPREHENSIVE METABOLIC PANE Dennis 04-06-2023 Albumin [Mass/Vol] 3.7 g/dL Normal 3.2-5.3 [facility] Comment on above: Performed By: #### C MP, CBCA ####[facility] ([id number])[address], [place] [address] ALP [Catalytic activity/Vol] 87 U/L Normal 39-130 [facility] Comment on above: Performed By: #### C GUMARO CBCA ####[facility] ([id number])[address], [place] [address] ALT [Catalytic activity/Vol] 34 U/L High 0-31 [facility] Comment on above: Performed By: #### C GUMARO, CBCA ####[facility] ([id number])[address], [place] [address] Anion gap [Moles/Vol] 11 mmol/L Normal 5-15 [facility] Comment on above: Performed By: #### C GUMARO CBCA ####[facility] ([id number])[address], [place] [address] AST [Catalytic activity/Vol] 28 U/L Normal 0-41 [facility] Comment on above: Performed By: #### C GUMARO CBCA ####[facility] ([id number])[address], [place] [address] Bilirubin [Mass/Vol] 0.6 mg/dL Normal 0.3-1.2 [facility] Comment on above: Performed By: #### C GUMARO CBCA ####[facility] ([id number])[address], [place] [address] Calcium [Mass/Vol] 9.5 mg/dL Normal 8.5-10.5 [facility] Comment on above: Performed By: #### C GUMARO, CBCA ####[facility] ([id number])[address], [place] [address] Chloride [Moles/Vol] 114 mmol/L High 98-109 [facility] Comment on above: Performed By: #### C GUMARO, CBCA ####[facility] ([id number])[address] [address] [address] CO2 [Moles/Vol] 27 mmol/L Normal 22-32 [facility] Comment on above: Performed By: #### C JA NAIK ####[facility] ([id number])[address] [address], [place] [address] Creatinine [Mass/Vol] 0.70 mg/dL Normal 0.40-1.00 [facility] Comment on above: Result Comment: METH OD TRACEABLE TO IDMS STANDARD Performed By: #### C JA NAIK ####[facility] ([id number])[address] [address] [place] [address] GFR/1.73 sq M.predicted among non-blacks MDRD (S/P/Bld) [Vol rate/Area] 87 mL/min/{1.73_m2} Normal >59 [facility] Comment on above: Result Comment: Repo rted eGFR is based on theCKD-EPI 2020 equation that doesnot use a race coefficient. Performed By: #### C JA NAIK ####[facility] ([id number])[address] [address] [place] [address] Glucose [Mass/Vol] 106 mg/dL High 65-99 [facility] Comment on above: Performed By: #### C JA NAIK ####[facility] ([id number])[address] [address], [place] [address] Potassium [Moles/Vol] 3.7 mmol/L Normal 3.5-5.0 [facility] Comment on above: Performed By: #### C JA NAIK ####[facility] ([id number])[address] [address], [place] [address] Protein [Mass/Vol] 6.8 g/dL Normal 6.0-8.0 [facility] Comment on above: Performed By: #### C GUMARO, CBCA ####[facility] ([id number])[address], [address], [place] [address] Sodium [Moles/Vol] 152 mmol/L High 134-146 [facility] Comment on above: Performed By: #### C MP, CBCA ####[facility] ([id number])[address], [address] [place] [address] Urea nitrogen [Mass/Vol] 39 mg/dL High 5-27 [facility] Comment on above: Performed By: #### C GUMARO, CBCA ####[facility] ([id number])[address], [address] [place] [address] [address] CTA CHESTon 04-06-2023 CT CTA CHEST Normal [facility] CT Chest WO and CT angiogram Coronary arteries W contrast [facility] CT [facility] CT Head WO contrastOrdered B y: Julio Cesar Juan on 04-06-2023 [facility] Work Phone: Comprehensive metabolic pane dennis 04-06-2023 Albumin [Mass/Vol] 3.7 g/dL 3.2 - 5.3 g/dL [facility] ALP [Catalytic activity/Vol] 87 U/L 39 - 130 U/L [facility] ALT No additional P-5'-P [Catalytic activity/Vol] 34 U/L High 0 - 31 U/L [facility] Anion gap [Moles/Vol] 11 mmol/L 5 - 15 mmol/L [facility] AST [Catalytic activity/Vol] 28 U/L 0 - 41 U/L [facility] Bilirubin [Mass/Vol] 0.6 mg/dL 0.3 - 1 .2 mg/dL [facility] Calcium [Mass/Vol] 9.5 mg/dL 8.5 - 10. 5 mg/dL [facility] Chloride [Moles/Vol] 114 mmol/L High 98 - 10 9 mmol/L [facility] CO2 [Moles/Vol] 27 mmol/L 22 - 32 mmol/L [facility] Creatinine [Mass/Vol] 0.70 mg/dL 0.40 - 1.00 mg/dL [facility] eGFR (CKD-EPI)non-race dependent 87 - PINF [facility] Glucose [Mass/Vol] 106 mg/dL High 65 - 99 mg/dL [facility] Interpretation and review of laboratory results Abnormal [facility] Potassium [Moles/Vol] 3.7 mmol/L 3.5 - 5.0 mmol/L [facility] Protein [Mass/Vol] 6.8 g/dL 6.0 - 8.0 g/dL [facility] Sodium [Moles/Vol] 152 mmol/L High 134 - 146 mmol/L [facility] Urea nitrogen [Mass/Vol] 39 mg/dL High 5 - 27 mg/dL [facility] POTASSIUMon 04-06-2023 Potassium [Moles/Vol] 4.7 mmol/L Normal 3.5-5.0 [facility] Comment on above: Performed By: #### 2 823-3, 41863-0 ####[facility] ([id number])[address] [facility] [address] [place] [address] Potassiumon 04-06-2023 Potassium [Moles/Vol] 4.7 mmol/L 3.5 - 5.0 mmol/L [facility] Potassium [Moles/Vol]on 03-10 [facility] Procalcitoninon 04-06-2023 Procalcitonin IA [Mass/Vol] 0.15 ng/mL High NINF - 0.05 ng/mL [facility] Procalcitonin IA [Mass/Vol]o n 04-06-2023 Interpretation and review of laboratory results Abnormal [facility] PROCALCITONIN 0.15 ng/mL High <0.05 [facility] Comment on above: Result Comment: NOTE <0.50 ng/mL - Low risk of severe sepsis and/or septic shock.<2.00 ng/mL - Recommend retesting within 6-24 hours.>2.00 ng/mL - High risk of sepsis and/or septic shock. Performed By: #### 2 823-3, 29693-0 ####[facility] ([id number])[address], [address] [place] [address] XR CHEST 1 VWon 04-06-2023 XR CHEST 1 VW Normal [facility] XR Chest Single viewon 04-06 SECTRAPACS [facility] Radiology Study observation (narrative) [facility] XR Chest Single viewOrdered By: Jose G Varela on 04-06-2023 [facility] Work Phone: CBC AND AUTO DIFFon 04-05-20 ABSOLUTE BASOPHIL 0.0 X10E9/L Normal 0.0-0.2 [facility] Comment on above: Performed By: #### C MP, CBCA ####[facility] ([id number])[address] [address] [place] [address] ABSOLUTE NEUTROPHIL 13.3 X10E9/L High 1.5-6.6 [facility] Comment on above: Performed By: #### C MP, CBCA ####[facility] ([id number])[address] [address] [place] [address] Basophils/100 WBC (Bld) 0.0 % Normal [facility] Comment on above: Performed By: #### C MP, CBCA ####[facility] ([id number])[address] [address] Eosinophils (Bld) [#/Vol] 0.0 10*3/uL Normal 0.0-0.4 [facility] Comment on above: Performed By: #### C MP, CBCA ####[facility] ([id number])[address], [address] [place] [address] Eosinophils/100 WBC (Bld) 0.1 % Normal [facility] Comment on above: Performed By: #### C MP, CBCA ####[facility] ([id number])[address], [address] [place] [address] Erythrocyte distribution width (RBC) [Ratio] 15.8 % High 11.5-15.0 [facility] Comment on above: Performed By: #### C MP, CBCA ####[facility] ([id number])[address], [address], [place] [address] Hematocrit (Bld) [Volume fraction] 39.6 % Normal 35-47 [facility] Comment on above: Performed By: #### C GUMARO, CBCA ####[facility] ([id number])[address] [address], [place] [address] Hemoglobin (Bld) [Mass/Vol] 13.3 g/dL Normal 11.7-15.5 [facility] Comment on above: Performed By: #### C GUMARO, CBCA ####[facility] ([id number])[address] [address], [place] [address] Lymphocytes (Bld) [#/Vol] 0.6 10*3/uL Low 1.0-3.5 [facility] Comment on above: Performed By: #### C MP, CBCA ####[facility] ([id number])[address] [address], [place] [address] Lymphocytes/100 WBC (Bld) 3.9 % Normal [facility] Comment on above: Performed By: #### C MP, CBCA ####[facility] ([id number])[address] [address] [place] [address] MCH (RBC) [Entitic mass] 28.9 pg Normal 27-34 [facility] Comment on above: Performed By: #### C MP, CBCA ####[facility] ([id number])[address], [address], [place] [address] MCHC (RBC) [Mass/Vol] 33.5 g/dL Normal 32-36 [facility] Comment on above: Performed By: #### C MP, CBCA ####[facility] ([id number])[address], [address], [place] [address] MCV (RBC) [Entitic vol] 86 fL Normal 80-100 [facility] Comment on above: Performed By: #### C MP, CBCA ####[facility] ([id number])[address], [address], [place] [address] Monocytes (Bld) [#/Vol] 0.7 10*3/uL Normal 0-0.9 [facility] Comment on above: Performed By: #### C MP, CBCA ####[facility] ([id number])[address], [address], [place] [address] Monocytes/100 WBC (Bld) 4.8 % Normal [facility] Comment on above: Performed By: #### C MP, CBCA ####[facility] ([id number])[address], [address], [place] [address] Neutrophils/100 WBC (Bld) 91.2 % Normal [facility] Comment on above: Performed By: #### C MP, CBCA ####[facility] ([id number])[address], [address], [place] [address] Platelet mean volume (Bld) [Entitic vol] 8.8 fL Normal 7-12 [facility] Comment on above: Performed By: #### C MP, CBCA ####[facility] ([id number])[address], [address], [place] [address] Platelets (Bld) [#/Vol] 68 10*3/uL Low 150-450 P [facility] Comment on above: Performed By: #### C MP, CBCA ####[facility] ([id number])[address], [address] [place] [address] RBC COUNT 4.59 X10E12/L Normal 3.80-5.20 [facility] Comment on above: Performed By: #### C MP, CBCA ####[facility] ([id number])[address], [address] [address] WBC (Bld) [#/Vol] 14.5 10*3/uL High 4.0-11.0 [facility] Comment on above: Performed By: #### C MP, CBCA ####[facility] ([id number])[address] [address] CBC auto differentialon 03-09 Basophils (Bld) [#/Vol] 0.0 10*3/uL [facility] Basophils/100 WBC (Bld) 0.0 % [facility] Eosinophils (Bld) [#/Vol] 0.0 10*3/uL [facility] Eosinophils/100 WBC (Bld) 0.1 % [facility] Erythrocyte distribution width (RBC) [Ratio] 15.8 % High 11.5 - 15.0 % [facility] Hematocrit (Bld) [Volume fraction] 39.6 % 35 - 47 % [facility] Hemoglobin (Bld) [Mass/Vol] 13.3 g/dL 11.7 - 15.5 g/dL [facility] Interpretation and review of laboratory results Abnormal [facility] Lymphocytes (Bld) [#/Vol] 0.6 10*3/uL Low [facility] Lymphocytes/100 WBC (Bld) 3.9 % [facility] MCH (RBC) [Entitic mass] 28.9 pg 27 - 34 pg [facility] MCHC (RBC) [Mass/Vol] 33.5 g/dL 32 - 3 6 g/dL [facility] MCV (RBC) [Entitic vol] 86 fL 80 - 100 fL [facility] Monocytes (Bld) [#/Vol] 0.7 10*3/uL [facility] Monocytes/100 WBC (Bld) 4.8 % [facility] Neutrophils (Bld) [#/Vol] 13.3 10*3/uL High [facility] Neutrophils/100 WBC (Bld) 91.2 % [facility] Platelet mean volume (Bld) [Entitic vol] 8.8 fL 7 - 12 fL [facility] Platelets (Bld) [#/Vol] 68 10*3/uL Low [facility] RBC (Bld) [#/Vol] 4.59 10*6/uL [facility] WBC corrected for nucl RBC Auto (Bld) [#/Vol] 14.5 High [facility] COMPREHENSIVE METABOLIC PANE Dennis 04-05-2023 Albumin [Mass/Vol] 3.9 g/dL Normal 3.2-5.3 [facility] Comment on above: Performed By: #### C GUMARO CBCA ####[facility] ([id number])[address], [address] [place] [address] ALP [Catalytic activity/Vol] 81 U/L Normal 39-130 [facility] Comment on above: Performed By: #### C GUMARO CBCA ####[facility] ([id number])[address], [address] [place] [address] ALT [Catalytic activity/Vol] 20 U/L Normal 0-31 [facility] Comment on above: Performed By: #### C GUMARO, CBCA ####[facility] ([id number])[address], [address] [place] [address] Anion gap [Moles/Vol] 10 mmol/L Normal 5-15 [facility] Comment on above: Performed By: #### C GUMARO, CBCA ####[facility] ([id number])[address] [place] [address] AST [Catalytic activity/Vol] 25 U/L Normal 0-41 [facility] Comment on above: Performed By: #### C GUMARO CBCA ####[facility] ([id number])[address] [address] [address] Bilirubin [Mass/Vol] 0.6 mg/dL Normal 0.3-1.2 [facility] Comment on above: Performed By: #### C GUMARO CBCA ####[facility] ([id number])[address] [address] [place] [address] Calcium [Mass/Vol] 9.8 mg/dL Normal 8.5-10.5 [facility] Comment on above: Performed By: #### C GUMARO CBCRey ####[facility] ([id number])[address] [address] [place] [address] Chloride [Moles/Vol] 113 mmol/L High 98-109 [facility] Comment on above: Performed By: #### C JA NAIK ####[facility] ([id number])[address] [address], [place] [address] CO2 [Moles/Vol] 26 mmol/L Normal 22-32 [facility] Comment on above: Performed By: #### C JA NAIK ####[facility] ([id number])[address] [address] [place] [address] Creatinine [Mass/Vol] 0.64 mg/dL Normal 0.40-1.00 [facility] Comment on above: Result Comment: METH OD TRACEABLE TO IDMS STANDARD Performed By: #### C GUMARO CBCA ####[facility] ([id number])[address] [address] [place] [address] GFR/1.73 sq M.predicted among non-blacks MDRD (S/P/Bld) [Vol rate/Area] 89 mL/min/{1.73_m2} Normal >59 [facility] Comment on above: Result Comment: Repo rted eGFR is based on theCKD-EPI 2020 equation that doesnot use a race coefficient. Performed By: #### C JA NAIK ####[facility] ([id number])[address], [address], [place] [address] Glucose [Mass/Vol] 169 mg/dL High 65-99 [facility] Comment on above: Performed By: #### C GUMARO CBCA ####[facility] ([id number])[address], [address], [place] [address] Potassium [Moles/Vol] 3.5 mmol/L Normal 3.5-5.0 [facility] Comment on above: Performed By: #### C GUMARO CBCA ####[facility] ([id number])[address], [address], [place] [address] Protein [Mass/Vol] 7.1 g/dL Normal 6.0-8.0 [facility] Comment on above: Performed By: #### C GUMARO CBCRey ####[facility] ([id number])[address], [address], [place] [address] Sodium [Moles/Vol] 149 mmol/L High 134-146 [facility] Comment on above: Performed By: #### C GUMARO CBCA ####[facility] ([id number])[address] [address], [place] [address] Urea nitrogen [Mass/Vol] 36 mg/dL High 5-27 [facility] Comment on above: Performed By: #### C GUMARO CBCA ####[facility] ([id number])[address], [address], [place] [address] Comprehensive metabolic pane dennis 04-05-2023 Albumin [Mass/Vol] 3.9 g/dL 3.2 - 5.3 g/dL [facility] ALP [Catalytic activity/Vol] 81 U/L 39 - 130 U/L [facility] ALT No additional P-5'-P [Catalytic activity/Vol] 20 U/L 0 - 31 U/L [facility] Anion gap [Moles/Vol] 10 mmol/L 5 - 15 mmol/L [facility] AST [Catalytic activity/Vol] 25 U/L 0 - 41 U/L [facility] Bilirubin [Mass/Vol] 0.6 mg/dL 0.3 - 1 .2 mg/dL [facility] Calcium [Mass/Vol] 9.8 mg/dL 8.5 - 10. 5 mg/dL [facility] Chloride [Moles/Vol] 113 mmol/L High 98 - 10 9 mmol/L [facility] CO2 [Moles/Vol] 26 mmol/L 22 - 32 mmol/L [facility] Creatinine [Mass/Vol] 0.64 mg/dL 0.40 - 1.00 mg/dL [facility] eGFR (CKD-EPI)non-race dependent 89 - PINF [facility] Glucose [Mass/Vol] 169 mg/dL High 65 - 99 mg/dL [facility] Interpretation and review of laboratory results Abnormal [facility] Potassium [Moles/Vol] 3.5 mmol/L 3.5 - 5.0 mmol/L [facility] Protein [Mass/Vol] 7.1 g/dL 6.0 - 8.0 g/dL [facility] Sodium [Moles/Vol] 149 mmol/L High 134 - 146 mmol/L [facility] Urea nitrogen [Mass/Vol] 36 mg/dL High 5 - 27 mg/dL [facility] POTASSIUMon 04-05-2023 Potassium [Moles/Vol] 3.8 mmol/L Normal 3.5-5.0 [facility] Comment on above: Performed By: #### 2 823-3 ####[facility] ([id number])[address] [facility], [address] [place] [address] Potassiumon 04-05-2023 Potassium [Moles/Vol] 3.8 mmol/L 3.5 - 5.0 mmol/L [facility] Potassium [Moles/Vol]on 03-09 [facility] XR CHEST 1 VWon 04-05-2023 XR CHEST 1 VW Normal [facility] XR Chest Single viewon 04-05 SECTRAPACS [facility] Radiology Study observation (narrative) [facility] XR Chest Single viewOrdered By: Jose Luis Tyson on 04-05-2023 [facility] Work Phone: CBC AND AUTO DIFFon 04-04-20 ABSOLUTE BASOPHIL 0.0 X10E9/L Normal 0.0-0.2 [facility] Comment on above: Performed By: #### C BCA, CMP ####[facility] ([id number])[address], [address] [place] [address] ABSOLUTE NEUTROPHIL 9.9 X10E9/L High 1.5-6.6 [facility] Comment on above: Performed By: #### C BCA, CMP ####[facility] ([id number])[address], [address] [place] [address] Basophils/100 WBC (Bld) 0.1 % Normal [facility] Comment on above: Performed By: #### C BCA, CMP ####[facility] ([id number])[address], [address] [place] [address] Eosinophils (Bld) [#/Vol] 0.0 10*3/uL Normal 0.0-0.4 [facility] Comment on above: Performed By: #### C BCA, CMP ####[facility] ([id number])[address], [address] [place] [address] Eosinophils/100 WBC (Bld) 0.1 % Normal [facility] Comment on above: Performed By: #### C BCA, CMP ####[facility] ([id number])[address], [address] [place] [address] Erythrocyte distribution width (RBC) [Ratio] 15.7 % High 11.5-15.0 [facility] Comment on above: Performed By: #### Batsheva BARAHONA, CMP ####[facility] ([id number])[address] [address], [place] [address] Hematocrit (Bld) [Volume fraction] 35.8 % Normal 35-47 [facility] Comment on above: Performed By: #### C BROOKLYN, CMP ####[facility] ([id number])[address] [address], [place] [address] Hemoglobin (Bld) [Mass/Vol] 11.9 g/dL Normal 11.7-15.5 [facility] Comment on above: Performed By: #### Batsheva BARAHONA, CMP ####[facility] ([id number])[address] [address] Lymphocytes (Bld) [#/Vol] 0.7 10*3/uL Low 1.0-3.5 [facility] Comment on above: Performed By: #### Batsheva BARAHONA, CMP ####[facility] ([id number])[address] [address] Lymphocytes/100 WBC (Bld) 5.9 % Normal [facility] Comment on above: Performed By: #### Batsheva BARAHONA, CMP ####[facility] ([id number])[address] [address] MCH (RBC) [Entitic mass] 28.8 pg Normal 27-34 [facility] Comment on above: Performed By: #### Batsheva BARAHONA, CMP ####[facility] ([id number])[address] [address] [place] [address] MCHC (RBC) [Mass/Vol] 33.2 g/dL Normal 32-36 [facility] Comment on above: Performed By: #### C BROOK[place], CMP ####[facility] ([id number])[address], [address], [place] [address] MCV (RBC) [Entitic vol] 87 fL Normal 80-100 [facility] Comment on above: Performed By: #### C [place]OOK[place], CMP ####[facility] ([id number])[address], [place] [address] Monocytes (Bld) [#/Vol] 0.6 10*3/uL Normal 0-0.9 [facility] Comment on above: Performed By: #### C [place]OOK[place], CMP ####[facility] ([id number])[address], [place] [address] Monocytes/100 WBC (Bld) 5.4 % Normal [facility] Comment on above: Performed By: #### Batsheva BARAHONA, CMP ####[facility] ([id number])[address], [place] [address] Neutrophils/100 WBC (Bld) 88.5 % Normal [facility] Comment on above: Performed By: #### C BROOK[place]N, CMP ####[facility] ([id number])[address], [place] [address] Platelet mean volume (Bld) [Entitic vol] 8.2 fL Normal 7-12 [facility] Comment on above: Performed By: #### C BROOK[place]N, CMP ####[facility] ([id number])[address], [place] [address] Platelets (Bld) [#/Vol] 70 10*3/uL Low 150-450 P [facility] Comment on above: Performed By: #### C BROOK[place]N, CMP ####[facility] ([id number])[address], [place] [address] RBC COUNT 4.13 X10E12/L Normal 3.80-5.20 [facility] Comment on above: Performed By: #### C BROOK[place]N, CMP ####[facility] ([id number])[address] [facility] [address] [place] [address] WBC (Bld) [#/Vol] 11.1 10*3/uL High 4.0-11.0 [facility] Comment on above: Performed By: #### C BROOK[place]N, CMP ####[facility] ([id number])[address] [facility], [address] [place] [address] CBC auto differentialon 03-09 Basophils (Bld) [#/Vol] 0.0 10*3/uL [facility] Basophils/100 WBC (Bld) 0.1 % [facility] Eosinophils (Bld) [#/Vol] 0.0 10*3/uL [facility] Eosinophils/100 WBC (Bld) 0.1 % [facility] Erythrocyte distribution width (RBC) [Ratio] 15.7 % High 11.5 - 15.0 % [facility] Hematocrit (Bld) [Volume fraction] 35.8 % 35 - 47 % [facility] Hemoglobin (Bld) [Mass/Vol] 11.9 g/dL 11.7 - 15.5 g/dL [facility] Interpretation and review of laboratory results Abnormal [facility] Lymphocytes (Bld) [#/Vol] 0.7 10*3/uL Low [facility] Lymphocytes/100 WBC (Bld) 5.9 % [facility] MCH (RBC) [Entitic mass] 28.8 pg 27 - 34 pg [facility] MCHC (RBC) [Mass/Vol] 33.2 g/dL 32 - 3 6 g/dL [facility] MCV (RBC) [Entitic vol] 87 fL 80 - 100 fL [facility] Monocytes (Bld) [#/Vol] 0.6 10*3/uL [facility] Monocytes/100 WBC (Bld) 5.4 % [facility] Neutrophils (Bld) [#/Vol] 9.9 10*3/uL High [facility] Neutrophils/100 WBC (Bld) 88.5 % [facility] Platelet mean volume (Bld) [Entitic vol] 8.2 fL 7 - 12 fL [facility] Platelets (Bld) [#/Vol] 70 10*3/uL Low [facility] RBC (Bld) [#/Vol] 4.13 10*6/uL [facility] WBC corrected for nucl RBC Auto (Bld) [#/Vol] 11.1 High [facility] COMPREHENSIVE METABOLIC PANE Dennis 04-04-2023 Albumin [Mass/Vol] 3.7 g/dL Normal 3.2-5.3 [facility] Comment on above: Performed By: #### C BROOKLYN, CMP ####[facility] ([id number])[address], [address], [place] [address] ALP [Catalytic activity/Vol] 71 U/L Normal 39-130 [facility] Comment on above: Performed By: #### C BROOKLYN, CMP ####[facility] ([id number])[address], [address], [place] [address] ALT [Catalytic activity/Vol] 14 U/L Normal 0-31 [facility] Comment on above: Performed By: #### C BCA, CMP ####[facility] ([id number])[address], [address], [place] [address] Anion gap [Moles/Vol] 9 mmol/L Normal 5-15 [facility] Comment on above: Performed By: #### C BCA, CMP ####[facility] ([id number])[address], [address], [place] [address] AST [Catalytic activity/Vol] 21 U/L Normal 0-41 [facility] Comment on above: Performed By: #### C BCA, CMP ####[facility] ([id number])[address], [address], [place] [address] Bilirubin [Mass/Vol] 0.6 mg/dL Normal 0.3-1.2 [facility] Comment on above: Performed By: #### C BCA, CMP ####[facility] ([id number])[address] [address], [place] [address] Calcium [Mass/Vol] 9.5 mg/dL Normal 8.5-10.5 [facility] Comment on above: Performed By: #### C BCA, CMP ####[facility] ([id number])[address] [address] [address] Chloride [Moles/Vol] 110 mmol/L High 98-109 [facility] Comment on above: Performed By: #### C BCA, CMP ####[facility] ([id number])[address] [address] [address] CO2 [Moles/Vol] 27 mmol/L Normal 22-32 [facility] Comment on above: Performed By: #### C BCA, CMP ####[facility] ([id number])[address] [address] [address] Creatinine [Mass/Vol] 0.64 mg/dL Normal 0.40-1.00 [facility] Comment on above: Result Comment: METH OD TRACEABLE TO IDMS STANDARD Performed By: #### C BCA, CMP ####[facility] ([id number])[address] [place] [address] GFR/1.73 sq M.predicted among non-blacks MDRD (S/P/Bld) [Vol rate/Area] 89 mL/min/{1.73_m2} Normal >59 [facility] Comment on above: Result Comment: Repo rted eGFR is based on theCKD-EPI 2020 equation that doesnot use a race coefficient. Performed By: #### C BCA, CMP ####[facility] ([id number])[address] [address], [place] [address] Glucose [Mass/Vol] 147 mg/dL High 65-99 [facility] Comment on above: Performed By: #### C BCA, CMP ####[facility] ([id number])[address], [address] [place] [address] Potassium [Moles/Vol] 3.6 mmol/L Normal 3.5-5.0 [facility] Comment on above: Performed By: #### C BCA, CMP ####[facility] ([id number])[address], [address] [place] [address] Protein [Mass/Vol] 6.7 g/dL Normal 6.0-8.0 [facility] Comment on above: Performed By: #### C BCA, CMP ####[facility] ([id number])[address], [address] [place] [address] Sodium [Moles/Vol] 146 mmol/L Normal 134-146 [facility] Comment on above: Performed By: #### C BCA, CMP ####[facility] ([id number])[address], [address] [place] [address] Urea nitrogen [Mass/Vol] 29 mg/dL High 5-27 [facility] Comment on above: Performed By: #### C BCA, CMP ####[facility] ([id number])[address] [address] Comprehensive metabolic pane dennis 04-04-2023 Albumin [Mass/Vol] 3.7 g/dL 3.2 - 5.3 g/dL [facility] ALP [Catalytic activity/Vol] 71 U/L 39 - 130 U/L [facility] ALT No additional P-5'-P [Catalytic activity/Vol] 14 U/L 0 - 31 U/L [facility] Anion gap [Moles/Vol] 9 mmol/L 5 - 15 mmol/L [facility] AST [Catalytic activity/Vol] 21 U/L 0 - 41 U/L [facility] Bilirubin [Mass/Vol] 0.6 mg/dL 0.3 - 1 .2 mg/dL [facility] Calcium [Mass/Vol] 9.5 mg/dL 8.5 - 10. 5 mg/dL [facility] Chloride [Moles/Vol] 110 mmol/L High 98 - 10 9 mmol/L [facility] CO2 [Moles/Vol] 27 mmol/L 22 - 32 mmol/L [facility] Creatinine [Mass/Vol] 0.64 mg/dL 0.40 - 1.00 mg/dL [facility] eGFR (CKD-EPI)non-race dependent 89 - PINF [facility] Glucose [Mass/Vol] 147 mg/dL High 65 - 99 mg/dL [facility] Interpretation and review of laboratory results Abnormal [facility] Potassium [Moles/Vol] 3.6 mmol/L 3.5 - 5.0 mmol/L [facility] Protein [Mass/Vol] 6.7 g/dL 6.0 - 8.0 g/dL [facility] Sodium [Moles/Vol] 146 mmol/L 134 - 146 mmol/L [facility] Urea nitrogen [Mass/Vol] 29 mg/dL High 5 - 27 mg/dL [facility] POTASSIUMon 04-04-2023 Potassium [Moles/Vol] 3.8 mmol/L Normal 3.5-5.0 [facility] Comment on above: Performed By: #### 2 823-3 ####[facility] ([id number])[address] [facility] [place] [address] Potassiumon 04-04-2023 Potassium [Moles/Vol] 3.8 mmol/L 3.5 - 5.0 mmol/L [facility] Potassium [Moles/Vol]on 03-09 [facility] CBC AND AUTO DIFFon 04-03-20 ABSOLUTE BASOPHIL 0.0 X10E9/L Normal 0.0-0.2 [facility] Comment on above: Performed By: #### C BCA, CMP, 44708-7 ####[facility] ([id number])[address] [facility], [address], [place] [address] ABSOLUTE NEUTROPHIL 12.1 X10E9/L High 1.5-6.6 [facility] Comment on above: Performed By: #### C BROOKLYN [facility], ####[facility] ([id number])[address], [address], [place] [address] Basophils/100 WBC (Bld) 0.1 % Normal [facility] Comment on above: Performed By: #### Batsheva BARAHONA [facility], ####[facility] ([id number])[address], [address] [place] [address] Eosinophils (Bld) [#/Vol] 0.0 10*3/uL Normal 0.0-0.4 [facility] Comment on above: Performed By: #### Batsheva BARAHONA CMP, ####[facility] ([id number])[address] [address] [place] [address] Eosinophils/100 WBC (Bld) 0.1 % Normal [facility] Comment on above: Performed By: #### Batsheva BARAHONA [facility], ####[facility] ([id number])[address] [address], [place] [address] Erythrocyte distribution width (RBC) [Ratio] 15.5 % High 11.5-15.0 [facility] Comment on above: Performed By: #### Batsheva BARAHONA [facility], ####[facility] ([id number])[address] [address] [address] Hematocrit (Bld) [Volume fraction] 40.1 % Normal 35-47 [facility] Comment on above: Performed By: #### Batsheva BARAHONA [facility], ####[facility] ([id number])[address], [address], [place] [address] Hemoglobin (Bld) [Mass/Vol] 13.4 g/dL Normal 11.7-15.5 [facility] Comment on above: Performed By: #### C BROOKLYN [facility], ####[facility] ([id number])[address], [address] [place] [address] Lymphocytes (Bld) [#/Vol] 0.8 10*3/uL Low 1.0-3.5 [facility] Comment on above: Performed By: #### Batsheva BARAHONA CMP, ####[facility] ([id number])[address], [address], [place] [address] Lymphocytes/100 WBC (Bld) 5.7 % Normal [facility] Comment on above: Performed By: #### Batsheva BARAHONA CMP, ####[facility] ([id number])[address] [place] [address] MCH (RBC) [Entitic mass] 28.7 pg Normal 27-34 [facility] Comment on above: Performed By: #### Batsheva BARAHONA [facility], ####[facility] ([id number])[address], [address] [place] [address] MCHC (RBC) [Mass/Vol] 33.6 g/dL Normal 32-36 [facility] Comment on above: Performed By: #### Batsheva BARAHONA CMP, ####[facility] ([id number])[address], [address], [place] [address] MCV (RBC) [Entitic vol] 85 fL Normal 80-100 P [facility] Comment on above: Performed By: #### Batsheva BARAHONA CMP, ####[facility] ([id number])[address] [place] [address] Monocytes (Bld) [#/Vol] 0.8 10*3/uL Normal 0-0.9 [facility] Comment on above: Performed By: #### C BCA, CMP, ####[facility] ([id number])[address], [address], [place] [address] Monocytes/100 WBC (Bld) 5.9 % Normal [facility] Comment on above: Performed By: #### C BCA, CMP, ####[facility] ([id number])[address], [place] [address] Neutrophils/100 WBC (Bld) 88.2 % Normal [facility] Comment on above: Performed By: #### C BROOKLYN, CMP, ####[facility] ([id number])[address], [place] [address] Platelet mean volume (Bld) [Entitic vol] 8.5 fL Normal 7-12 [facility] Comment on above: Performed By: #### Batsheva BCA, CMP, ####[facility] ([id number])[address], [address], [place] [address] Platelets (Bld) [#/Vol] 96 10*3/uL Low 150-450 [facility] Comment on above: Performed By: #### Batsheva BCA, CMP, ####[facility] ([id number])[address], [place] [address] RBC COUNT 4.69 X10E12/L Normal 3.80-5.20 [facility] Comment on above: Performed By: #### C BCA, CMP, ####[facility] ([id number])[address], [place] [address] WBC (Bld) [#/Vol] 13.7 10*3/uL High 4.0-11.0 [facility] Comment on above: Performed By: #### C BCA, CMP, ####[facility] ([id number])[address] [facility], [address] [place] [address] CBC auto differentialon 03-09 Basophils (Bld) [#/Vol] 0.0 10*3/uL [facility] Basophils/100 WBC (Bld) 0.1 % [facility] Eosinophils (Bld) [#/Vol] 0.0 10*3/uL [facility] Eosinophils/100 WBC (Bld) 0.1 % [facility] Erythrocyte distribution width (RBC) [Ratio] 15.5 % High 11.5 - 15.0 % [facility] Hematocrit (Bld) [Volume fraction] 40.1 % 35 - 47 % [facility] Hemoglobin (Bld) [Mass/Vol] 13.4 g/dL 11.7 - 15.5 g/dL [facility] Interpretation and review of laboratory results Abnormal [facility] Lymphocytes (Bld) [#/Vol] 0.8 10*3/uL Low [facility] Lymphocytes/100 WBC (Bld) 5.7 % [facility] MCH (RBC) [Entitic mass] 28.7 pg 27 - 34 pg [facility] MCHC (RBC) [Mass/Vol] 33.6 g/dL 32 - 3 6 g/dL [facility] MCV (RBC) [Entitic vol] 85 fL 80 - 100 fL [facility] Monocytes (Bld) [#/Vol] 0.8 10*3/uL [facility] Monocytes/100 WBC (Bld) 5.9 % [facility] Neutrophils (Bld) [#/Vol] 12.1 10*3/uL High [facility] Neutrophils/100 WBC (Bld) 88.2 % [facility] Platelet mean volume (Bld) [Entitic vol] 8.5 fL 7 - 12 fL [facility] Platelets (Bld) [#/Vol] 96 10*3/uL Low [facility] RBC (Bld) [#/Vol] 4.69 10*6/uL [facility] WBC corrected for nucl RBC Auto (Bld) [#/Vol] 13.7 High [facility] COMPREHENSIVE METABOLIC PANE Dennis 04-03-2023 Albumin [Mass/Vol] 4.0 g/dL Normal 3.2-5.3 [facility] Comment on above: Performed By: #### C BCA, CMP, ####[facility] ([id number])[address], [place] [address] ALP [Catalytic activity/Vol] 71 U/L Normal 39-130 [facility] Comment on above: Performed By: #### C BCA, CMP, ####[facility] ([id number])[address], [place] [address] ALT [Catalytic activity/Vol] 9 U/L Normal 0-31 [facility] Comment on above: Performed By: #### C BCA, CMP, ####[facility] ([id number])[address], [place] [address] Anion gap [Moles/Vol] 9 mmol/L Normal 5-15 [facility] Comment on above: Performed By: #### C BCA, CMP, ####[facility] ([id number])[address], [address], [place] [address] AST [Catalytic activity/Vol] 19 U/L Normal 0-41 [facility] Comment on above: Performed By: #### C BCA, CMP, ####[facility] ([id number])[address], [place] [address] Bilirubin [Mass/Vol] 0.6 mg/dL Normal 0.3-1.2 [facility] Comment on above: Performed By: #### C BCA, CMP, ####[facility] ([id number])[address], [place] [address] Calcium [Mass/Vol] 9.6 mg/dL Normal 8.5-10.5 [facility] Comment on above: Performed By: #### C BROOKLYN CMP, ####[facility] ([id number])[address], [address], [place] [address] Chloride [Moles/Vol] 109 mmol/L Normal 98-109 [facility] Comment on above: Performed By: #### C BROOKLYN CMP, ####[facility] ([id number])[address], [place] [address] CO2 [Moles/Vol] 26 mmol/L Normal 22-32 [facility] Comment on above: Performed By: #### C JACOB BARAHONA, ####[facility] ([id number])[address], [address], [place] [address] Creatinine [Mass/Vol] 0.74 mg/dL Normal 0.40-1.00 [facility] Comment on above: Result Comment: METH OD TRACEABLE TO IDMS STANDARD Performed By: #### C JACOB BARAHONA, ####[facility] ([id number])[address] [address] GFR/1.73 sq M.predicted among non-blacks MDRD (S/P/Bld) [Vol rate/Area] 82 mL/min/{1.73_m2} Normal >59 [facility] Comment on above: Result Comment: Repo rted eGFR is based on theCKD-EPI 2020 equation that doesnot use a race coefficient. Performed By: #### C BCA CMP, ####[facility] ([id number])[address] [address], [place] [address] Glucose [Mass/Vol] 114 mg/dL High 65-99 [facility] Comment on above: Performed By: #### C BCA CMP, ####[facility] ([id number])[address] [place] [address] Potassium [Moles/Vol] 3.9 mmol/L Normal 3.5-5.0 [facility] Comment on above: Performed By: #### C BCA, CMP, 74539-3 ####[facility] ([id number])[address] [place] [address] Protein [Mass/Vol] 7.2 g/dL Normal 6.0-8.0 [facility] Comment on above: Performed By: #### C BCA, CMP, 92359-7 ####[facility] ([id number])[address] [place] [address] Sodium [Moles/Vol] 144 mmol/L Normal 134-146 [facility] Comment on above: Performed By: #### C BCA, CMP, 93942-2 ####[facility] ([id number])[address], [place] [address] Urea nitrogen [Mass/Vol] 27 mg/dL Normal 5-27 [facility] Comment on above: Performed By: #### C BCA, CMP, [id number] ####[facility] ([id number])[address], [place] [address] CT [address] WO CONT[address] BRAIN WO CONT Normal [facility] CT Head WO contraston 2022 [facility]ACS [facility] Cardiac echo study Procedure Ordered By: Aquiles Coker on 04-03-2023 Aortic root 3.30 [facility] Work Phone: AV mean gradient 9.00 mmHg [facility] [employer] Work Phone: AV peak gradient 13.84 mmHg [facility] [employer] Work Phone: AV peak edson 186.00 cm/s [facility] Work Phone: AV valve area 2.39 cm2 [employer] Work Phone: AV Velocity Ratio 0.76 [facility] Work Phone: AV VTI 41.20 cm [employer] Work Phone: E wave deceleration time 210.00 msec [employer] Work Phone: E/A ratio 0.75 [employer] Work Phone: Energy loss index 1.94 [facility] Work Phone: FS 31 % 28 - 44 % [employer] Work Phone: Interventricular Septum Diastolic Thickness by 2D 9 cm [employer] Work Phone: IVS 0.90 cm 0.6 - 1.1 cm [employer] Work Phone: LA size 3.30 cm [employer] Work Phone: LA volume 30.70 cm3 [employer] Work Phone: LA Volume Index 17.7 mL/m2 [employer] Work Phone: Left Ventricle Mass [id number] g [employer] Work Phone: LV ESV A2C 28.70 mL [employer] Work Phone: LV ESV A4C 29.20 mL [employer] Work Phone: LV RWT 2D 35.56 [employer] Work Phone: LVIDd 4.50 cm 4.03 - 5.60 cm [employer] Work Phone: LVIDs 3.10 cm 2.39 - 3.62 cm [employer] Work Phone: LVOT diameter 2.00 cm [employer] Work Phone: LVOT peak edson 1.51 m/s [employer] Work Phone: LVOT peak VTI 31.30 cm [facility] Work Phone: LVOT stroke volume 98.33 ml [facility] Work Phone: MV Peak A Edson 122.00 cm/s [facility] Work Phone: MV Peak E Edson 91.40 cm/s [facility] Work Phone: MV pressure 1/2 time 62.00 ms [facility] [employer] Work Phone: MV TDI E' (medial) 7.51 cm/s [facility] [employer] Work Phone: MV valve area p 1/2 method 3.55 cm2 [facility] Work Phone: PW 0.80 cm 0.6 - 1.1 cm [facility] Work Phone: TAPSE 1.87 cm [facility] Work Phone: TDI 7.62 cm/s [facility] Work Phone: Valve area - Index 1.4 [facility] Work Phone: ZLVIDD -0.54 [facility] Work Phone: ZLVIDS 0.42 [facility] Work Phone: [facility] Work Phone: Cardiac echo study Procedure on 04-03-2023 [facility] Radiology Study observation (narrative) [facility] [facility] Comprehensive metabolic pane dennis 04-03-2023 Albumin [Mass/Vol] 4.0 g/dL 3.2 - 5.3 g/dL [facility] ALP [Catalytic activity/Vol] 71 U/L 39 - 130 U/L [facility] ALT No additional P-5'-P [Catalytic activity/Vol] 9 U/L 0 - 31 U/L [facility] Anion gap [Moles/Vol] 9 mmol/L 5 - 15 mmol/L [facility] AST [Catalytic activity/Vol] 19 U/L 0 - 41 U/L [facility] Bilirubin [Mass/Vol] 0.6 mg/dL 0.3 - 1 .2 mg/dL [facility] Calcium [Mass/Vol] 9.6 mg/dL 8.5 - 10. 5 mg/dL [facility] Chloride [Moles/Vol] 109 mmol/L 98 - 10 9 mmol/L [facility] CO2 [Moles/Vol] 26 mmol/L 22 - 32 mmol/L [facility] Creatinine [Mass/Vol] 0.74 mg/dL 0.40 - 1.00 mg/dL [facility] eGFR (CKD-EPI)non-race dependent 82 - PINF [facility] Glucose [Mass/Vol] 114 mg/dL High 65 - 99 mg/dL [facility] Interpretation and review of laboratory results Abnormal [facility] Potassium [Moles/Vol] 3.9 mmol/L 3.5 - 5.0 mmol/L [facility] Protein [Mass/Vol] 7.2 g/dL 6.0 - 8.0 g/dL [facility] Sodium [Moles/Vol] 144 mmol/L 134 - 146 mmol/L [facility] Urea nitrogen [Mass/Vol] 27 mg/dL 5 - 27 mg/dL [facility] DISCONTINUE IN PROCESS EEG T ESTINGOrdered By: Documentation Systemgenerated on 04-03-2023 [facility] Work Phone: Holter monitor studyon 04-03 MANUALLY TRANSCRIBED RESULTS [facility] MANUALLY TRANSCRIBED RESULTS [facility] Laboratory - Microbiology an d Antimicrobial susceptibilityon 04-03-2023 MRSA DNA MARYCHUY+probe Ql (Unsp spec) Negative Normal NEG [facility] Comment on above: Performed By: #### 3 5492-8 ####[facility] ([id number])[address] [facility] [address] [place] [address] MAGNESIUMon 04-03-2023 Magnesium [Mass/Vol] 2.0 mg/dL Normal 1.8-2.6 [facility] Comment on above: Performed By: #### C BCA, CMP, 14452-8 ####[facility] ([id number])[address] [facility], [address], [place] [address] MRSA DNA MARYCHUY+probe Ql (Unsp spec)on 04-03-2023 [facility] Magnesiumon 04-03-2023 Magnesium [Mass/Vol] 2.0 mg/dL 1.8 - 2 .6 mg/dL [facility] Magnesium [Mass/Vol]on 04-03 [facility] RESP PATHOGENS/[id number] 04-03-2023 Respiratory pathogens DNA and RNA panel MARYCHUY+non-probe (Nph) Normal [facility] Respiratory pathogens DNA an d RNA panel MARYCHUY+non-probe (Nph)on 04-03-2023 Adenovirus DNA MARYCHUY+non-probe Ql (Nph) Not detected Not Detected^N ot Detected [facility] B. parapertussis [id number] DNA MARYCHUY+non-probe Ql (Nph) Not detected Not Detected^N ot Detected [facility] B. pertussis toxin promoter region MARYCHUY+non-probe Ql (Nph) Not detected Not Detected^N ot Detected [facility] C. pneumoniae DNA MARYCHUY+non-probe Ql (Nph) Not detected Not Detected^N ot Detected [facility] FLUAV RNA MARYCHUY+non-probe Ql (Nph) Not detected Not Detected^N ot Detected [facility] FLUBV RNA MARYCHUY+non-probe Ql (Nph) Not detected Not Detected^N ot Detected [facility] HCoV 229E RNA MARYCHUY+non-probe Ql (Nph) Not detected Not Detected^N ot Detected [facility] HCoV HKU1 RNA MARYCHUY+non-probe Ql (Nph) Not detected Not Detected^N ot Detected [facility] HCoV NL63 RNA MARYCHUY+non-probe Ql (Nph) Not detected Not Detected^N ot Detected [facility] HCoV OC43 RNA MARYCHUY+non-probe Ql (Nph) Not detected Not Detected^N ot Detected [facility] hMPV RNA MARYCHUY+non-probe Ql (Nph) Not detected Not Detected^N ot Detected [facility] M. pneumoniae DNA MARYCHUY+non-probe Ql (Nph) Not detected Not Detected^N ot Detected [facility] Parainfluenza virus 1 RNA MARYCHUY+non-probe Ql (Nph) Not detected Not Detected^N ot Detected [facility] Parainfluenza virus 2 RNA MARYCHUY+non-probe Ql (Nph) Not detected Not Detected^N ot Detected [facility] Parainfluenza virus 3 RNA MARYCHUY+non-probe Ql (Nph) Not detected Not Detected^N ot Detected [facility] Parainfluenza virus 4 RNA MARYCHUY+non-probe Ql (Nph) Not detected Not Detected^N ot Detected [facility] Rhinovirus+Enterovirus RNA MARYCHUY+non-probe Ql (Nph) Not detected Not Detected^N ot Detected [facility] RSV RNA MARYCHUY+non-probe Ql (Nph) Not detected Not Detected^N ot Detected [facility] SARS-CoV-2 (COVID-19) RNA MARYCHUY+probe Ql (Resp) Not detected Not Detected^N ot Detected [facility] Specimen source Nom (Body fld) NASO PHARYNX [facility] X-ray abdomen NG Tube placem ent 1 [facility]-03-[facility] (narrative) [facility] X-ray abdomen NG Tube placem ent 1 viewOrdered By: Caro Gilliland on 04-03-2023 [facility] Work Phone: XR ABD NG TUBE PLACEMENT 1 V IEWon 04-03-2023 XR ABD NG TUBE PLACEMENT 1 VIEW Normal [facility] XR CHEST 1 VWon 04-03-2023 XR CHEST 1 VW Normal [facility] XR Chest Single [facility]on 04-[facility] (narrative) [facility] CBC AND AUTO DIFFon 04-02-20 23 ABSOLUTE BASOPHIL 0.0 X10E9/L Normal 0.0-0.2 [facility] Comment on above: Performed By: #### C BCA ####[facility] ([id number])[address] [facility], [address] [place] [address] ABSOLUTE NEUTROPHIL 11.5 X10E9/L High 1.5-6.6 [facility] Comment on above: Performed By: #### C BCA ####[facility] ([id number])[address], [address], [place] [address] Basophils/100 WBC (Bld) 0.4 % Normal [facility] Comment on above: Performed By: #### C BCA ####[facility] ([id number])[address], [address], [place] [address] Eosinophils (Bld) [#/Vol] 0.0 10*3/uL Normal 0.0-0.4 [facility] Comment on above: Performed By: #### C BCA ####[facility] ([id number])[address], [address] [address] Eosinophils/100 WBC (Bld) 0.0 % Normal [facility] Comment on above: Performed By: #### C BCA ####[facility] ([id number])[address], [address], [place] [address] Erythrocyte distribution width (RBC) [Ratio] 15.3 % High 11.5-15.0 [facility] Comment on above: Performed By: #### C BCA ####[facility] ([id number])[address], [address], [place] [address] Hematocrit (Bld) [Volume fraction] 39.1 % Normal 35-47 [facility] Comment on above: Performed By: #### C BCA ####[facility] ([id number])[address] [address], [place] [address] Hemoglobin (Bld) [Mass/Vol] 13.1 g/dL Normal 11.7-15.5 [facility] Comment on above: Performed By: #### C BCA ####[facility] ([id number])[address], [address], [place] [address] Lymphocytes (Bld) [#/Vol] 0.6 10*3/uL Low 1.0-3.5 [facility] Comment on above: Performed By: #### C BCA ####[facility] ([id number])[address], [address], [place] [address] Lymphocytes/100 WBC (Bld) 4.7 % Normal [facility] Comment on above: Performed By: #### C BCA ####[facility] ([id number])[address], [address], [place] [address] MCH (RBC) [Entitic mass] 28.6 pg Normal 27-34 [facility] Comment on above: Performed By: #### C BCA ####[facility] ([id number])[address], [address], [place] [address] MCHC (RBC) [Mass/Vol] 33.4 g/dL Normal 32-36 [facility] Comment on above: Performed By: #### C BCA ####[facility] ([id number])[address], [address], [place] [address] MCV (RBC) [Entitic vol] 86 fL Normal 80-100 P [facility] Comment on above: Performed By: #### C BCA ####[facility] ([id number])[address], [address], [place] [address] Monocytes (Bld) [#/Vol] 0.6 10*3/uL Normal 0-0.9 [facility] Comment on above: Performed By: #### C BCA ####[facility] ([id number])[address], [address] [address] Monocytes/100 WBC (Bld) 4.6 % Normal [facility] Comment on above: Performed By: #### C BCA ####[facility] ([id number])[address], [address] [address] Neutrophils/100 WBC (Bld) 90.3 % Normal [facility] Comment on above: Performed By: #### C BCA ####[facility] ([id number])[address], [address] [address] Platelet mean volume (Bld) [Entitic vol] 8.8 fL Normal 7-12 [facility] Comment on above: Performed By: #### C BCA ####[facility] ([id number])[address] [address] [place] [address] Platelets (Bld) [#/Vol] 114 10*3/uL Low 150-450 [facility] Comment on above: Performed By: #### C BCA ####[facility] ([id number])[address] [address] [place] [address] RBC COUNT 4.56 X10E12/L Normal 3.80-5.20 [facility] Comment on above: Performed By: #### C BCA ####[facility] ([id number])[address] [address] [place] [address], [place] [address] WBC (Bld) [#/Vol] 12.7 10*3/uL High 4.0-11.0 [facility] Comment on above: Performed By: #### C BCA ####[facility] ([id number])[address] [address] [address] COMPREHENSIVE METABOLIC PANE Dennis 04-02-2023 Albumin [Mass/Vol] 4.0 g/dL Normal 3.2-5.3 [facility] Comment on above: Performed By: #### C MP ####[facility] ([id number])[address] [address] [address] ALP [Catalytic activity/Vol] 71 U/L Normal 39-130 [facility] Comment on above: Performed By: #### C MP ####[facility] ([id number])[address] [address] [place] [address] ALT [Catalytic activity/Vol] 9 U/L Normal 0-31 [facility] Comment on above: Performed By: #### C MP ####[facility] ([id number])[address], [place] [address] Anion gap [Moles/Vol] 13 mmol/L Normal 5-15 [facility] Comment on above: Performed By: #### C MP ####[facility] ([id number])[address], [place] [address] AST [Catalytic activity/Vol] 15 U/L Normal 0-41 [facility] Comment on above: Performed By: #### C MP ####[facility] ([id number])[address], [address], [place] [address] Bilirubin [Mass/Vol] 0.6 mg/dL Normal 0.3-1.2 [facility] Comment on above: Performed By: #### C MP ####[facility] ([id number])[address], [address], [place] [address] Calcium [Mass/Vol] 9.6 mg/dL Normal 8.5-10.5 [facility] Comment on above: Performed By: #### C MP ####[facility] ([id number])[address], [address], [place] [address] Chloride [Moles/Vol] 105 mmol/L Normal 98-109 [facility] Comment on above: Performed By: #### C MP ####[facility] ([id number])[address], [address], [place] [address] CO2 [Moles/Vol] 27 mmol/L Normal 22-32 [facility] Comment on above: Performed By: #### C MP ####[facility] ([id number])[address], [address], [place] [address] Creatinine [Mass/Vol] 0.72 mg/dL Normal 0.40-1.00 [facility] Comment on above: Result Comment: METH OD TRACEABLE TO IDMS STANDARD Performed By: #### C MP ####[facility] ([id number])[address], [address], [place] [address] GFR/1.73 sq M.predicted among non-blacks MDRD (S/P/Bld) [Vol rate/Area] 84 mL/min/{1.73_m2} Normal >59 [facility] Comment on above: Result Comment: Repo rted eGFR is based on theCKD-EPI 2020 equation that doesnot use a race coefficient. Performed By: #### C MP ####[facility] ([id number])[address], [address], [place] [address] Glucose [Mass/Vol] 123 mg/dL High 65-99 [facility] Comment on above: Performed By: #### C MP ####[facility] ([id number])[address] [address], [place] [address] Potassium [Moles/Vol] 3.5 mmol/L Normal 3.5-5.0 [facility] Comment on above: Performed By: #### C MP ####[facility] ([id number])[address], [address], [place] [address] Protein [Mass/Vol] 7.2 g/dL Normal 6.0-8.0 [facility] Comment on above: Performed By: #### C MP ####[facility] ([id number])[address], [address] [address] Sodium [Moles/Vol] 145 mmol/L Normal 134-146 [facility] Comment on above: Performed By: #### C MP ####[facility] ([id number])[address], [address], [place] [address] Urea nitrogen [Mass/Vol] 19 mg/dL Normal 5-27 [facility] Comment on above: Performed By: #### C MP ####[facility] ([id number])[address], [address], [place] [address] CT BRAIN WO CONTon CT BRAIN WO CONT Normal [facility] Glucose Glucometer (BldC) [M ass/Vol]on 04-02-2023 Glucose [Mass/Vol] 124 mg/dL High 65-99 [facility] POTASSIUMon 04-02-2023 Potassium [Moles/Vol] 3.9 mmol/L Normal 3.5-5.0 [facility] Comment on above: Performed By: #### 2 823-3 ####[facility] ([id number])[address], [address], [place] [address] Potassium [Moles/Vol] 3.7 mmol/L Normal 3.5-5.0 [facility] Comment on above: Performed By: #### 2 823-3 ####[facility] ([id number])[address], [address], [place] [address] XR CHEST 1 VWon 04-02-2023 XR CHEST 1 VW Normal [facility] CBC AND AUTO DIFFon 04-01-20 23 ABSOLUTE BASOPHIL 0.0 X10E9/L Normal 0.0-0.2 [facility] Comment on above: Performed By: #### C MP, PINR, CBCA, 30860-1, 79156-3 ####[facility] ([id number])[address], [address], [place] [address] ABSOLUTE NEUTROPHIL 5.7 X10E9/L Normal 1.5-6.6 [facility] Comment on above: Performed By: #### C MP, PINR, CBCA, 33690-6, 85638-8 ####[facility] ([id number])[address], [address], [place] [address] Basophils/100 WBC (Bld) 0.3 % Normal P [facility] Comment on above: Performed By: #### C MP, PINR, CBCA, 37611-6, 41692-0 ####[facility] ([id number])[address] [address] [place] [address] Eosinophils (Bld) [#/Vol] 0.0 10*3/uL Normal 0.0-0.4 [facility] Comment on above: Performed By: #### C MP, PINR, CBCA, 71916-6, 40470-1 ####[facility] ([id number])[address] [address] [place] [address] Eosinophils/100 WBC (Bld) 0.5 % Normal [facility] Comment on above: Performed By: #### C MP, PINR, CBCA, 24633-7, 20932-8 ####[facility] ([id number])[address] [address] [place] [address] Erythrocyte distribution width (RBC) [Ratio] 15.3 % High 11.5-15.0 [facility] Comment on above: Performed By: #### C MP, PINR, CBCA, 45384-5, 01323-4 ####[facility] ([id number])[address] [address] [place] [address] Hematocrit (Bld) [Volume fraction] 38.1 % Normal 35-47 [facility] Comment on above: Performed By: #### C MP, PINR, CBCA, 87118-7, 00589-3 ####[facility] ([id number])[address] [address] Hemoglobin (Bld) [Mass/Vol] 13.1 g/dL Normal 11.7-15.5 [facility] Comment on above: Performed By: #### C MP, PINR, CBCA, 60536-4, 76381-5 ####[facility] ([id number])[address], [address] [place] [address] Lymphocytes (Bld) [#/Vol] 0.8 10*3/uL Low 1.0-3.5 [facility] Comment on above: Performed By: #### C MP, PINR, CBCA, 19500-7, 52778-0 ####[facility] ([id number])[address], [address], [place] [address] Lymphocytes/100 WBC (Bld) 11.2 % Normal [facility] Comment on above: Performed By: #### C MP, PINR, CBCA, 65313-0, 10765-3 ####[facility] ([id number])[address] [address], [place] [address] MCH (RBC) [Entitic mass] 29.4 pg Normal 27-34 [facility] Comment on above: Performed By: #### C MP, PINR, CBCA, 76486-3, 77583-6 ####[facility] ([id number])[address] [address] [place] [address] MCHC (RBC) [Mass/Vol] 34.4 g/dL Normal 32-36 [facility] Comment on above: Performed By: #### C MP, PINR, CBCA, 36020-5, 00765-8 ####[facility] ([id number])[address] [address] [place] [address] MCV (RBC) [Entitic vol] 85 fL Normal 80-100 [facility] Comment on above: Performed By: #### C MP, PINR, CBCA, 34795-9, 87932-2 ####[facility] ([id number])[address] [address] [place] [address] Monocytes (Bld) [#/Vol] 0.4 10*3/uL Normal 0-0.9 [facility] Comment on above: Performed By: #### C MP, PINR, CBCA, 52108-3, 74027-6 ####[facility] ([id number])[address], [address], [place] [address] Monocytes/100 WBC (Bld) 6.0 % Normal P [facility] Comment on above: Performed By: #### C MP, PINR, CBCA, 29630-8, 00059-2 ####[facility] ([id number])[address], [address], [place] [address] Neutrophils/100 WBC (Bld) 82.0 % Normal [facility] Comment on above: Performed By: #### C MP, PINR, CBCA, 02357-9, 80020-5 ####[facility] ([id number])[address], [address], [place] [address] Platelet mean volume (Bld) [Entitic vol] 8.5 fL Normal 7-12 [facility] Comment on above: Performed By: #### C MP, PINR, CBCA, 33388-1, 26118-4 ####[facility] ([id number])[address] [address], [place] [address] Platelets (Bld) [#/Vol] 91 10*3/uL Low 150-450 P [facility] Comment on above: Performed By: #### C MP, PINR, CBCA, 36077-1, 15454-8 ####[facility] ([id number])[address], [address], [place] [address] RBC COUNT 4.46 X10E12/L Normal 3.80-5.20 [facility] Comment on above: Performed By: #### C MP, PINR, CBCA, 76274-4, 21766-2 ####[facility] ([id number])[address], [address], [place] [address] RBC morphology finding Nom (Bld) NORMAL Normal [facility] Comment on above: Performed By: #### C MP, PINR, CBCA, 49490-6, 49479-7 ####[facility] ([id number])[address], [address], [place] [address] WBC (Bld) [#/Vol] 6.9 10*3/uL Normal 4.0-11.0 [facility] Comment on above: Performed By: #### C MP, PINR, CBCA, 56870-8, 39461-7 ####[facility] ([id number])[address], [address], [place] [address] COMPREHENSIVE METABOLIC PANE Dennis 04-01-2023 Albumin [Mass/Vol] 3.9 g/dL Normal 3.2-5.3 [facility] Comment on above: Performed By: #### C MP, PINR, CBCA, 64669-0, 70247-8 ####[facility] ([id number])[address], [address], [place] [address] ALP [Catalytic activity/Vol] 72 U/L Normal 39-130 [facility] Comment on above: Performed By: #### C MP, PINR, CBCA, 07322-8, 13332-4 ####[facility] ([id number])[address], [address] [place] [address] ALT [Catalytic activity/Vol] 7 U/L Normal 0-31 [facility] Comment on above: Performed By: #### C MP, PINR, CBCA, 76354-6, 89475-1 ####[facility] ([id number])[address], [address], [place] [address] Anion gap [Moles/Vol] 9 mmol/L Normal 5-15 [facility] Comment on above: Performed By: #### C MP, PINR, CBCA, 13134-2, 71400-9 ####[facility] ([id number])[address], [address], [place] [address] AST [Catalytic activity/Vol] 13 U/L Normal 0-41 [facility] Comment on above: Performed By: #### C MP, PINR, CBCA, 16288-7, 86010-0 ####[facility] ([id number])[address], [address], [place] [address] Bilirubin [Mass/Vol] 0.5 mg/dL Normal 0.3-1.2 [facility] Comment on above: Performed By: #### C MP, PINR, CBCA, 75865-9, 47849-4 ####[facility] ([id number])[address], [address], [place] [address] Calcium [Mass/Vol] 9.6 mg/dL Normal 8.5-10.5 [facility] Comment on above: Performed By: #### C MP, PINR, CBCA, 72626-3, 71930-9 ####[facility] ([id number])[address], [address], [place] [address] Chloride [Moles/Vol] 105 mmol/L Normal 98-109 [facility] Comment on above: Performed By: #### C MP, PINR, CBCA, 23624-1, 91488-4 ####[facility] ([id number])[address], [address], [place] [address] CO2 [Moles/Vol] 27 mmol/L Normal 22-32 [facility] Comment on above: Performed By: #### C MP, PINR, CBCA, 91082-6, 25224-4 ####[facility] ([id number])[address], [address], [place] [address] Creatinine [Mass/Vol] 0.63 mg/dL Normal 0.40-1.00 [facility] Comment on above: Result Comment: METH OD TRACEABLE TO IDMS STANDARD Performed By: #### C GUMARO, PINR, CBCA, 40304-8, 29111-0 ####[facility] ([id number])[address] [place] [address] GFR/1.73 sq M.predicted among non-blacks MDRD (S/P/Bld) [Vol rate/Area] 90 mL/min/{1.73_m2} Normal >59 [facility] Comment on above: Result Comment: Repo rted eGFR is based on theCKD-EPI 2020 equation that doesnot use a race coefficient. Performed By: #### C GUMARO, PINR, CBCA, 76824-6, 40240-9 ####[facility] ([id number])[address] [place] [address] Glucose [Mass/Vol] 112 mg/dL High 65-99 [facility] Comment on above: Performed By: #### C GUMARO PINR, CBCA, 38720-9, 05646-8 ####[facility] ([id number])[address] [address], [place] [address] Potassium [Moles/Vol] 3.3 mmol/L Low 3.5-5.0 [facility] Comment on above: Performed By: #### C GUMARO PINR, CBCA, 99982-5, 75282-0 ####[facility] ([id number])[address] [address], [place] [address] Protein [Mass/Vol] 6.9 g/dL Normal 6.0-8.0 [facility] Comment on above: Performed By: #### C GUMARO, PINR, CBCA, 94969-8, 66382-5 ####[facility] ([id number])[address], [address], [place] [address] Sodium [Moles/Vol] 141 mmol/L Normal 134-146 [facility] Comment on above: Performed By: #### C MP, PINR, CBCA, 93845-9, 41070-7 ####[facility] ([id number])[address], [address] [place] [address] Urea nitrogen [Mass/Vol] 12 mg/dL Normal 5-27 [facility] Comment on above: Performed By: #### C MP, PINR, CBCA, 11090-2, 04449-3 ####[facility] ([id number])[address], [address] [place] [address] BRAIN WO CONTon 3 CT BRAIN WO CONT Normal [facility] Glucose Glucometer (BldC) [M ass/Vol]on 04-01-2023 Glucose [Mass/Vol] 101 mg/dL High 65-99 [facility] HGB A1C (GLYCO-HGB)on 2022 Glucose [Mass/Vol] 111 mg/dL Normal [facility] Comment on above: Performed By: #### C GUMARO, PINR, CBCA, 30983-3, 31202-0 ####[facility] ([id number])[address], [address] [place] [address] HbA1c (Bld) [Mass fraction] 5.5 % Normal 4.4-5.6 [facility] Comment on above: Result Comment: NOTE ADA Guidelines Result HgbA1c Normal : less than 5.7 % Prediabetes : 5.7 % to 6.4 % Diabetes : > 6.4 %Use with caution in patients with abnormal hemoglobin variants asthe half-life of red blood cells and in vivo glycation rates areaffected. Performed By: #### C MP, PINR, CBCA, 55386-9, 29758-7 ####[facility] ([id number])[address], [address], [place] [address] Lipid 1996 panelon 3 Cholesterol [Mass/Vol] 243 mg/dL High 150-200 [facility] Comment on above: Performed By: #### C GUMARO, PINR, CBCA, 13784-9, 19710-2 ####[facility] ([id number])[address], [address] [place] [address] Cholesterol in HDL [Mass/Vol] 93 mg/dL Normal >39 [facility] Comment on above: Result Comment: HDL <40 mg/dL - High RiskHDL > or = 40mg/dL- DesirableHDL >60 mg/dL - Negative Risk Performed By: #### C GUMARO, PINR, CBCA, 93746-7, 60452-9 ####[facility] ([id number])[address], [address] [place] [address] Cholesterol in LDL [Mass/Vol] 130 mg/dL High <130 [facility] Comment on above: Result Comment: LDL <100 mg/dL - DesirableLDL >160 mg/dL - High Risk Performed By: #### C MP, PINR, CBCA, 79351-3, 73082-6 ####[facility] ([id number])[address], [address] [place] [address] Cholesterol in VLDL [Mass/Vol] 20 mg/dL Normal 0-30 [facility] Comment on above: Performed By: #### C GUMARO, PINR, CBCA, 73862-1, 24962-3 ####[facility] ([id number])[address], [address] [place] [address] CHOLESTEROL:HDL 2.6 Normal 1.0-5.0 [facility] Comment on above: Performed By: #### C MP, PINR, CBCA, 55821-3, 63913-6 ####[facility] ([id number])[address], [address] [place] [address]40 Triglyceride [Mass/Vol] 99 mg/dL Normal 27-150 P [facility] Comment on above: Performed By: #### C MP, PINR, CBCA, 32653-3, 07754-1 ####[facility] ([id number])[address], [address] [place] [address]956 PLATELET FUNCTIONon 04-01-20 COLLAGEN/ADP 103 sec Normal 0-114 [facility] Comment on above: Performed By: #### P FA ####[facility] ([id number])[address] [address] COLLAGEN/EPINEPHRINE >300 High 0-179 [facility] Comment on above: Performed By: #### P FA ####[facility] ([id number])[address] [address] PFA INTERP This pattern is indicative of drug induced Normal [facility] Comment on above: Result Comment: plat elet dysfunction. Review patientinformation for medication, includingaspirin that may affect platelet function.This pattern has also been reported inpatients with storage pool deficiency and/orplatelet function abnormalities. If either ofthese is a consideration, further plateletstudies are suggested. Performed By: #### P FA ####[facility] ([id number])[address] [address] [place] [address] PROTIME AND INRon 04-01-2023 INR Coag (PPP) [Relative time] 1.0 {INR} Normal 0.8-1.1 [facility] Comment on above: Performed By: #### C MP, PINR, CBCA, 91044-7, 09442-9 ####[facility] ([id number])[address], [place] [address] PT Coag (PPP) [Time] 12.2 s Normal 9.8-13.2 [facility] Comment on above: Performed By: #### C MP, PINR, CBCA, 83056-8, 89216-0 ####[facility] ([id number])[address], [address] [place] [address] aPTT Coag (PPP) [Time]on aPTT Coag (Bld) [Time] 33 s Normal 26-37 [facility] Comment on above: Performed By: #### C MP, PINR, CBCA, 57605-9, 14982-5 ####[facility] [facility] ([id number])[address] [address] Outside Progress Noteon 060 Outside Progress Note [id number] [id number]. 00CD:127 Normal [facility] Progress Note-Nurseon 2022 Progress Note-Nurse [id number]#1.0 0CD:127 Normal [facility] XR wrist RT min 3V*on 2022 XR wrist RT min 3V* [facility] Main [place] [id number] XRay Report Signed Patient: Ellen Chan MR#: [id number] 1 : 1945 Acct:[id number] Age/Sex: 77 / F ADM Date: 08/31/22 [place] [facility] [place]: Type: [facility] Attending Dr: Kate Mane MD Copies to: Kate Mane MD Ordering Provider: Kate Mane MD Date of Service: 08/31/22 XR/XR wrist [...] alignment. Healing remains incomplete. Impression dictated by: Kristin Linares M.D.08/31/2022 3:33 PM Dictation Location: [place] [address] Transcribed By: [facility] 08/31/22 1533 Dictated By: Kristin Linares II, MD 08/31/22 153 Signed By: 08/31/22 153 Normal [facility] XR wrist RT min 3V* [facility] [employer] Other XR wrist RT min 3V* [facility] [employer] Other XR wrist RT min 3V* [address] [place] [address] [employer] Other XR wrist RT min 3V* [place] [id number] [employer] Other XR wrist RT min 3V* XRay Report Nort [employer] Other XR wrist RT min 3V* Signed [employer] Other XR wrist RT min 3V* Patient: George Chan MR#: [id number] [employer] Other XR wrist RT min 3V* 1 [employer] Other XR wrist RT min 3V* : 1945 Acct:[id number] [employer] Other XR wrist RT min 3V* Age/Sex: 77 / F ADM Date: 08/31/22 [employer] Other XR wrist RT min 3V* Loc: [facility] Room: Type : [facility] [employer] Other XR wrist RT min 3V* Attending Dr: Que Mane MD [employer] Other XR wrist RT min 3V* Copies to: Kate Mane MD [employer] Other XR wrist RT min 3V* Ordering Provider: Kate Mane MD [employer] Other XR wrist RT min 3V* Date of Service: 08/31/22 [employer] Other XR wrist RT min 3V* XR/XR wrist RT min 3V*: Other closed extra-articular fracture of distal [employer] Other XR wrist RT min 3V* end of right Nor [employer] Other XR wrist RT min 3V* XR wrist RT min 3V* 08/31/2022 10:42 AM [employer] Other XR wrist RT min 3V* SIGNS AND SYMPTOMS: Status post fixation of distal radius fracture, follow-up [employer] Other XR wrist RT min 3V* PROTOCOL: Frontal, lateral, and oblique radiographs of the right wrist [employer] Other XR wrist RT min 3V* COMPARISON: 07/20/2022 [employer] Other XR wrist RT min 3V* FINDINGS: [employer] Other XR wrist RT min 3V* There is volar plate and screw fixation across a distal radius fracture. Healing remains incomplete. [employer] Other XR wrist RT min 3V* No change in alignme nt or hardware complication. There is diffuse osteopenia. There is a remote [employer] Other XR wrist RT min 3V* ulnar styloid fracture. The radiocarpal joint is unchanged. Degenerative changes are present at the [employer] Other XR wrist RT min 3V* base of the thumb. [employer] Other XR wrist RT min 3V* XR/XR wrist RT min 3V* [employer] Other XR wrist RT min 3V* IMPRESSION: [employer] Other XR wrist RT min 3V* Distal radius fractu re status post volar plate and screw fixation without change in alignment. [employer] Other XR wrist RT min 3V* Healing remains incomplete. [employer] Other XR wrist RT min 3V* Impression dictated by: Kristin Linares M.D.08/31/2022 3:33 PM [employer] Other XR wrist RT min 3V* Dictation Location: [place] [address] [employer] Other XR wrist RT min 3V* Transcribed By: PWS 08/31/22 [facility] [employer] Other XR wrist RT min 3V* Dictated By: Kristin Linares II, MD 08/31/22 [facility] [employer] Other XR wrist RT min 3V* Signed By: [employer] Other XR wrist RT min 3V* 08/31/22 1533 No rt [employer] Other Consent for Treatmenton 08-07 Consent for Treatment [id number] 3050 [id number]#1.0 0CD:127 Normal [facility] Office/Cl inic Noteon 08-30-2022 [...] bruising tendency, no petechiae, no swollen nodes Allergy/Immunologic: no seasonal allergies, no food allergies, no [...] 81 mg= 1 tab(s), Oral, Daily Colace hydrochlorothiazide, 25 mg, Oral, Daily Lopressor niacin 500 mg ER Tab Pantoprazole [address] Tab potassium chloride 10 mEq Cap-ER, 20 mEq= 2 cap(s), Oral, Daily ranitidine, 75 mg, Oral, Daily, PRN Zyrtec Allergies Bee Stings (Edema) Neosporin (Blisters) acetaminophen-oxycodon e (Unknown) alendronate (Unknown) bacitracin (Unknown, Rash) ciprofloxacin (Unknown) neomycin (Unknown, Rash) oxyCODONE (Unknown) Social History Tobacco - Denies Tobacco Use, 06/04/2022 Former smoker, quit more than 30 days ago Tobacco Use:. Never Smokeless Tobacco Use:., 08/30/2022 Family History Acute myocardial infarction: Father. Alzheimer's disease: Mother. Diabetes mellitus type 2: Father. Normal [facility] Comment on above: Result Comment: Elec tronically Signed By: Justino CUNNINGHAM, Leon Ruiz\.br\Date and Time Signed: 08/30/22 13:48 EDT XR wrist RT min 3V*on 2022 XR wrist RT min 3V* [facility] Main [place] [address] [place] [address] XRay Report Signed Patient: Ellen Chan MR#: [id number] 1 : 1945 Acct:[id number] Age/Sex: 77 / F ADM Date: 07/20/22 [place] [facility] [place]: Type: [facility] Attending Dr: Kate Mane MD Copies to: Kate Mane MD Ordering Provider: Kate Mane MD Date of Service: 07/20/22 XR/XR wrist [...] STUDY. Impression dictated by: Kit Quinonez Jr., DCaraOCara07/20/2022 2:40 PM Dictation Location: [place] [address] Transcribed By: [facility] 07/20/22 1440 Dictated By: Kit Quinonez Jr, DO 07/20/22 1439 Signed By: 07/20/22 1440 [facility] Coding Summary.on 06-21-2022 Coding Summary. CD:[id number] Gh 0bWw+PGhlYWQ+SD0HWBPcV 53kuNFwoA4mE3GLIAtVUkj jALHBRSvICkKqjtMeAB9km XNjZXJu IC8+JR7aKLXkZrzoiYHrj7 V9pQE7X89vqc2bQMflrSD0 GFVbBkTzklayi5radYg2KZ cuNmluOyBt XQUlxE65FRC8pZ25If67yC DnpMKws3wezNw5AtYzHHRi BUQ9dDysHQxyc1DrHQGqS9 4lhTPmn3L9 KSRxcYdkdSXqHcYawUU8zX 5tIGzitovms6klztwmPgb5 ka15bSXkx5E7hNJ1I3Szfr S2IPFplGXr JetvxTTTtD9zviwks0ziqf jvFlTvAGGvOPv9IIy8UEPv hJulEvJrKC39MQE6GSHedd EbF5MyEELx qTwnTtS6a3M2Jm1DN7ISCm prA1FGLARINVelrRG+PC90 rb28R7XsMtygPmj9FBNsOW D7pEV5iD3m VRTcYJwrt2K2iFH9S3Pjur Eqlu3wm8bvUWDwKByfO04q tNVnt1D8XLLklMV0HPTucR ihAoHhfE52 Oyc+LVVizChem8YdNhpvv3 wjv6pslTk5UmqcBHFoqdEt cWyuJRV2r5QxVq3oOZQxvJ A5aRV3kF7x HwRrQkM7ZUvvR339WkForT IkCxkpK49xJ5LhbAV+PHRy Gqa4WDWifGlwAC8vP1YxWM RpbmctbGVm iKogLO1uDDLspfkpUXQvwX 7sVSVgN0k4QgMcEjE4PWao W5ZmBFIjnxscEo33kZ6kVs YgRmN2LUwi F6EiaxS9SFBasPAzECsvOO X2T91ej3N7HNPcLUHmLXI4 lIC9kM4fyPczqckixUQorL sgdmVydGlj WGlvYQlxI702FFKbjLzsHu NvZGluZyBEYXRlOiAgMDMv MTYvMjAyMzwvdGQ+PHRkIH P1sXrvPDJq cWTaZMlkZf2trMmfjBcrZT 5aTOVajahyPFOhjR0aSWJj sBIdjFvsBT9jFYYnwshbw1 01TcOdWDR7 GENbkNEhA6EjtO3kNuEvUQ ToFLMzT1EaeSYxLCtoG480 XRbcCmC2DGXtjcCfN3DrKA FsaWduOiB0 r6T6Xx6Uv5ApfqxbP1CygO FcXcDuFrwuPLa1B6TmFyuq dHI+VJ36VYBkRN55VQp3NG V1zMdsCDcq FNPfA9QqeY6tBgBxCXIcQT RkOyc+PHRhYmxlIHdpZHRo XVvzIWJnSsKajEbyHM9iYt 9yZGVyLWNv mXmkiECyMzJwa8baZYRnLC soMK0vvMnvN4EfwPN9NOYo y2o9Eu91B90tF0WprFW+PG AaxUW2yBU3 cS9aPtNyZvO5LKycW328Zb JetMDmSahyt5seu7hvlCb4 ZyM0AXBgjtRrcBwiGYM5g9 LzUb74X29t IHdpZHRoPSIxNSUiIHZhbG qpor8pdT8bIp5+PGNvbCB3 bPR2pG7rSrSeUjH0LYrcI1 49InRvcCIv Lmjbj2och4czuQf4UaGkUW NdjxDaoSmlSGT9q0WlYr02 E3MbyNyja8RnInm3ep64jF Pvg4A2yAZ0 K5XbYUUaxvizhURuiUygEV 6eJMTobgpeCQHkdR1cNHHm L0a7FwIxNpQ2QKtoM2Vcck L3CQNocEKv AVDlhHDEqX6gkqmnb5rney oaPwYuXNWrYGf0TLy1DCBp mPilIuGeFPS4XoI1RLM2nI JxqL5tkUqy oyjlbJ8mUhf+ZZI1qOPmuB APSJ7kPrlcqFE+PHRkIHN0 zGkdNBuiHZAmdP5bTRUpZ7 c7UaStDmD5 ZNfeQ4PmxqS1GODvfKQlOR SykLCSdH0mfqrkd2bbmnfs WlQvSMXlCBg9KQv5HEWspD duOiBsZWZ0 KnV7DRX0hQQyoG4scJrkwv eksO8qJes+QmlydGggRGF0 ZLb2S1NzAco0XDFstMujZM 0ncGFkZGlu Qi2ahHkdyXyqGD4wHTLjbf wzf770LsZhp7ndJPAbmTQg ZQamDSZ2D92kw7A3KFTwHB ZlHHA0fTL6 tG8jiEjhyfsebTSdwLedsh JppZczXHunMZxoT315FGIz iDmiWzUvBYk8N5VfSyo9IQ JnqGodLN4h wGExHJxvLx0reUfwqDpcWK 0wBGBodcunu968NvFzr7ra JIWmbHTjAFxmVXK6P35kw2 F1ESPpWTIa RSO5hKS2rL4faSzclxcuiK VmdDsgdmVydGljYWwtYWxp H186STOdcPjaOqCovNy3I8 TjKdl2COSp fYywCK4heOSrJEmdSb4paN wtaOsaYN3qQRVdeesvr846 GbIsb5igPPMvjBLdVHneZW M7O00td6Q6 GVIhVJTwXKP7lHI7iN7phJ lnbjogbGVmdDsgdmVydGlj EKqyBQcqA091ALPqjBypIm BhdGllbnQg QJmmRRk0F0NsSzavhNR+PC 05LSLiYI44wNBnkLIlt2vr mMi8GqEiBHGsXDJ0uAcbUR rxf5JxLGVn Z45tzAOzx2A6NFUrjDfkxN LzUfQqiAR0gR0gXEysljic a0mzpytoZfcmn7znhh89sL 00R84oJDty ZHRoPSIzMCUiIHZhbGlnbj 3qnW8mEt0+QEDtrGU8cBT3 zE7hOSBnSxS6RItmP231Tl RvcCIvPjxj l0igd6tjoIb5MjX5XDFezk RkgHzpCEB6c3RpRd62X05v IHdpZHRoPSIyMCUiIHZhbG fdpo6orN0k Ii8+AWPyfGU9nRE9kP3iLt ChHjM3ZRnzD626GlIdsWWr ArciE12qY9WllDY+PHRyPj j3QUIvdPlh YI1heLErXMtmQk4iAXM6Kp JoZdJhNTsmT2LwGQCtgxen vndcoKQ7VYVsMSFdrH47Qr 9udDogMTBw nETOyW6pzvxcg4nekertLi ZkWKLaVKf3WXr5REZxwFpf ZlMjSPV4LvF5ISS7dPZvwB 1hbGlnbjog fH7xP5LiCRSmtusyLj84xK 2pNsBpXkT5WHlwCwn+SEFZ I3CLZZylMM2BOFC3S3NmOr s4ESWokRvw YQ7cuCDvPIdyMm3npVyeeE qoWM1fVRHyvhstNMCkiJ2j XXKoqUJssFvjLG5sGOAkga fvv524BeHq ZRW0GJCtyIHtX5BxsB8gIw MqWIVbABSlM4OwdIHlVApu P316CTngNhM4VWAqqvSgT6 FsLWFsaWdu JlD4l6O6Au6bIs7zIG7iOJ TfGX03DE23wIRfa0M1zHY7 K9BcUIBtdxpluntbsNZ5PE IlQDZrdH70 tDZpVXroOd0bt2L1c239YC RyGHVluD94Xw3ecSbnSDEh lDQGbL1hybjjc4qhgyeiVr AwMDAwMDt0 HOg7PBEbrGekXjErMRT5Pw L3XDI8xGMgkI6bqVyxdrqz yN4kTiq+ZzdtDIPavaZ6L6 HeQbv4XMLr cOamSB8zsDVzCWlrLz7fwD xgeMbmRC3rDUIfbomoOXVq zD4hHEGspYNuvHoxAU8oCT Ajszype129 PuZnBML8NKPqtTKmO0QkaH 5sYtFbXZYxLOMgQ2IgcHDz NBdlG223ATemYkE6RGPqax NaB5UdTUAt sPdsYmW7y3T7Zx4AME4luL N7A7JvZed4BSHpaCdhCK1f pDVvIKoqGl7nwTbwpTxiEA 4wNTBpbjtw GHQdcG1oTZIyxDSexBitQB 0mBOLslrgwu558SyJkVUT7 YUArySNvG7AzoY9kEnDmGD RpVVVwX5Lb eEQqNUfsQ292BPznLjK0AI GuniYfS4NnKQJrfSiqUpY8 r4Z9Ny9RlYFlLTMzGW46KG 07GW00M3De PjwvdGFibGU+PHRhYmxlIH dpZHRoPScxMDAlJyBzdHls IC1lYe2fPLJxLBRirIrhrA ZeMiUfh0je UTJuLZprBL8spPswM8CrnV U1YDLlw3f1Zt37E54qM8Ds dXA+HELjgJN1fFA6tZ1wNx QkLhY0FCnj Y219BuLczSPsGkyjp1dyp4 piaRg0BvPbGDScubJwvMvu RRQ4h3SdYw25S03nRSfcZQ RoPSIyMCUi ILWlwQindh4tpR3yTe0+PG TnlPB4hFI3wP4zYwPxHsS3 PNamO197JcLqbIFaFrnwC0 1kH5EtoEZ+ GWWdNcp7QTGnpJgiSH3enN KlMUxnEr9cWKM1ZkInUtNq RScoK4UlOZVwgbzwazlmyA G4FQMuTXSr fY58Au9niRslOu6vEIDjNJ J3TZLkzGSiK1KktC0sMeCr FHUuFAUnM9VvkSFhSGouI4 43KFhqZiV9 FJJaluRtN5MjUVTzrHtuRk B2v5R2Kq7QrUbrmWWuYL4q WpYgKGx0N7TsGcd1EUTwfQ hpER0gqTRw FFvvBw7emJsetSrlCN3uTR Fmekesp786OqQyf9hnCBWy sKFtBMjlDXI1R88yo7K2IF MwMDAwMDA7 uWA3zE7bbEapgwrshLQovN eyswQptOgaBQibHGwpZ246 YSTniYovFhMDMuf8X0TmXw e7DAZgiJez GC1crMYaDVaxSf3nnZlucT lzFL0ySUTuenoql066KzXt g7moVMAjlKFjIAzjKAR1V8 8nt3W7PAUd NNEeLOF8dYL2lP7zoQjxib ogbGVmdDsgdmVydGljYWwt TLvxY755DHBdfVpmRy2DZt r9C2DcTfm7 SCPndDkyJA2ciJZdLHbnRu 5meSwsnYmvZX5yPMKawhac r666SfZyu0mvYGXcwHDuSC ugCUV2K35j z7S6MKWlMSLaKBQ8tJT5sT 1hbGlnbjogbGVmdDsgdmVy hDuxCXutJJyuU723KEQtrP snPlBheWVy OjwvdGQ+YZ78vb15M4FhVj uqHso6ANOzZJZ2oAG2iS3n LSAlSVbez8K8lAD5D6Qzjc Mcfx5wh5uy YXBz (more content not included)... Normal [facility] XR wrist RT min 3V*on 2022 XR wrist RT min 3V* [facility] [place] [address] XRay Report Signed Patient: Ellen Chan MR#: [id number] 1 : 1945 Acct:[id number] Age/Sex: 77 / F ADM Date: 06/20/22 [place] [facility] [place]: Type: [facility] Attending Dr: Kate Mane MD Copies to: Kate Mane MD Ordering Provider: Kate Mane MD Date of Service: 06/20/22 XR/XR wrist [...] FRACTURE. Impression dictated by: Kit Quinonez Jr., Steph06/20/2022 3:28 PM Dictation Location: [place] [address] Transcribed By: [facility] 06/20/22 1528 Dictated By: Kit Quinonez Jr, DO 06/20/22 1520 Signed By: 06/20/22 1528 Normal [facility] XR wrist RT min 3V* [facility] [employer] Other XR wrist RT min 3V* [facility] [employer] Other XR wrist RT min 3V* [address] [facility] [employer] Other XR wrist RT min 3V* [place] [address] [employer] Other XR wrist RT min 3V* XRay Report [place] [employer] Other XR wrist RT min 3V* Signed [employer] Other XR wrist RT min 3V* Patient: George Chan MR#: [id number] [employer] Other XR wrist RT min 3V* 1 [employer] Other XR wrist RT min 3V* : 1945 Acct:[id number] [employer] Other XR wrist RT min 3V* Age/Sex: 77 / F ADM Date: 06/20/22 [employer] Other XR wrist RT min 3V* [place] [facility] [place]: Type : [facility] [employer] Other XR wrist RT min 3V* Attending Dr: Que Mane MD [employer] Other XR wrist RT min 3V* Copies to: Kate Mane MD [employer] Other XR wrist RT min 3V* Ordering Provider: Kate Mane MD [employer] Other XR wrist RT min 3V* Date of Service: 06/20/22 [employer] Other XR wrist RT min 3V* XR/XR wrist RT min 3V*: Other closed extra-articular fracture of distal [employer] Other XR wrist RT min 3V* end of right Nor [employer] Other XR wrist RT min 3V* RIGHT WRIST - 4 views [employer] Other XR wrist RT min 3V* CLINICAL HISTORY: OR IF right distal radius fracture follow-up [employer] Other XR wrist RT min 3V* COMPARISON: Right wrist 05/23/2022 [employer] Other XR wrist RT min 3V* FINDINGS: [employer] Other XR wrist RT min 3V* Hardware fixation is seen involving the distal radius with a fracture grossly unchanged in [employer] Other XR wrist RT min 3V* alignment. The fracture line is less conspicuous suggestive of healing response. Styloid process [employer] Other XR wrist RT min 3V* fracture of the ulna is unchanged. Bones are grossly demineralized. Carpus demonstrate degenerative [employer] Other XR wrist RT min 3V* change. [employer] Other XR wrist RT min 3V* XR/XR wrist RT min 3V* [employer] Other XR wrist RT min 3V* IMPRESSION: [employer] Other XR wrist RT min 3V* HEALING DISTAL RADIU S FRACTURE. [employer] Other XR wrist RT min 3V* Impression dictated by: Kit Quinonez Jr., D.O.06/20/2022 3:28 PM [employer] Other XR wrist RT min 3V* Dictation Location: [place] [address] [employer] Other XR wrist RT min 3V* Transcribed By: TATIANA 06/20/22 1528 [employer] Other XR wrist RT min 3V* Dictated By: Kit Quinonez Jr, DO 06/20/22 [facility] [employer] Other XR wrist RT min 3V* Signed By: [employer] Other XR wrist RT min 3V* 06/20/22 1528 No rt [employer] Other CTA Abdomen and Pelvison CTA Abdomen and Pelvis Exam Date/Time: 06/15/2022 12:45 EST Reason for Exam: E71.40;Abdominal aortic Aneurysm (AAA) Report Review CTA chest for report CTA of the abdomen and pelvis Ordering Provider: Leon Badillo FINAL REPORT Dictated: 06/16/2022 10:17 am Ivan Saavedra MD Signed (Electronic Signature): 06/16/2022 10:17 am Signed by: Ivan Saavedra MD Transcribed by: RIA Technologist: SANDRA Technical Comments GFR (mL/min/1/73m2) >60 Contrast: Isovue 370 Contrast amount in ml's: 100 Normal [facility] CTA Cheston 06-16-2022 CTA Chest Exam Date/Time: [...] as low as reasonably achievable. Ordering Provider: Leon Badillo FINAL REPORT Dictated: 06/16/2022 10:16 am Ivan Saavedra MD Signed (Electronic Signature): 06/16/2022 10:16 am Signed by: Ivan Saavedra MD Transcribed by: RIA Technologist: SANDRA Technical Comments GFR (mL/min/1/73m2) >60 Contrast: Isovue 370 Contrast amount in ml's: 100 Normal [facility] CHEMISTRYOrdered By: SYSTEM SYSTEM on 06-15-2022 Creatinine [Mass/Vol] 0.7 mg/dL Normal 0.5 - 1.3 mg/dL [facility] Remisol GFR/1.73 sq M.predicted among blacks MDRD (S/P/Bld) [Vol rate/Area] mL/min/1.73 m2 Normal >=59mL/min /1.73 m2 [facility] Chem S GFR/1.73 sq M.predicted among non-blacks MDRD (S/P/Bld) [Vol rate/Area] mL/min/1.73 m2 Normal >=59mL/min /1.73 m2 [facility] Chem S Consent for Treatmenton 06-06 Consent for Treatment [id number] 3030 [id number]#1.0 0CD:127 Normal [facility] Creatinineon 06-15-2022 Creatinine [Mass/Vol] 0.7 mg/dL Normal 0.5-1.[address] [facility] Comment on above: Performed By: #### 2 [id number], [id number] ####[facility] [address] [place] [address] eGFRon 06-15-2022 GFR/1.73 sq M.predicted among blacks MDRD (S/P/Bld) [Vol rate/Area] mL/min/{1.73_m2} Normal >=59 [facility] Comment on above: Order Comment: Order added by Discern Expert. Result Comment: eGFR is race adjusted. AA=. Performed By: #### 2 [id number], [id number] ####[facility] [address] [place] [address] GFR/1.73 sq M.predicted among non-blacks MDRD (S/P/Bld) [Vol rate/Area] mL/min/{1.73_m2} Normal >=59 [facility] Comment on above: Order Comment: Order added by Discern Expert. Result Comment: Summer Analyst romana kidney disease could be indicated at eGFR's of less than 60 mL/min/1.73m2. Kidney failure is indicated at less than 15 mL/min/1.73m2. Performed By: #### 2 [id number], [id number] ####[facility] [address] [place] [address] Physician Orderon 06-14-2022 Physician Order [id number]#1. 00CD:127 Normal [facility] Coding Summary.on 06-05-2022 Coding Summary. CD:[id number] Gh 0bWw+PGhlYWQ+XU4UVANoR 88weSOvaS3TI7eQWB7XCEI LAYGOBR4IQG7axWZ8WJcfT 2VybiAv BjrwjSGeRZ39KYx0GOW1yZ omBDpsvH8crNXeW9q3ZvDl MW92aX10CAlbOGYeYaO9Rs ZpbjsgbWFy P9vdZiUcyKJhFix+PHRhYm xlIHdpZHRoPScxMDAlJyBz fOvsRG9dWc3pRTMjLHFeaW xhcHNlOiBj f6mkXLXcLAodWS5kmHdlS4 MsjAB6WBMjw3d4Oy87rLC+ SVQgFBU8xExqVNnlm214Mv Fjy8mqQMT3 tJZkNQnuMFO2P27ss2K0RZ OeNJPuEPW5oFJ4cK8fkKip vctnO3RiwLBmYzT5JGV1tA TapV4deSxo gpgjoH5oUxs+U64PMZ6BFQ JJCX6DZjs9X6AdDwpdlNN+ ZJ44GAXxPW20oWYajGQml6 gngJw4ZxZf FBUbGQS7uQpyFHfkb0PvES ZzB81ewQFru4H5UMDxuSyu dYBwZyOraNJ0vR1jPVdivz ivi7albdqy Ozysb4vodm14eI58B73wTT fhOZIdDCS2YNPqAZDomKrh fk3bfN7tFu8+THacq6fww1 sciUw0OxLt WQTxpcYzxVzfRSY2x6VpMy 76Z1RwvJkkb9VfTup1ic86 iGIvj0F5tAY0RLnsRAFpvA 4iFPqqFjI9 USFaWaSdfU20uCUnHNftNm 2lbLpnpAloYM8wBUJvksio HCOnuA4kYZKhuPMvdHwyZZ 4wNTBpbjtm h084LvDvLYP9YKBpnVCrP0 NpiH2lXkFsGLQmOHRjA5Un rPYfEMqqT308WCfkAqT9YU RquoKzH7Fd PQYmzInpNjI9g7U4Oh8Oy1 GfkzbeFUI9OWonRWIjPsF0 HbXlGwU0H4PxNrj3EJCcqZ wkHY9iL4Ba NUKukwbrqilxlUM2KRTjHY WauG99uMJsTBpoAj4kl7M0 m578AJWsNHDlyY66Tk8ulI ogMTBwdCBU iA4nlufid2dmxpepHbEtVW NnOWg3PTl5BLLumBwoKyFf KCL8BbE2QSV1zGFoqH8ajV reosegvZ4d Oyc+Y06ycT2eWZZ7PRT5jt msAHRmwvYvDL33CK94Y6Xe PjwvdGFibGU+PGRpdiBzdH ftMN4hDjPi f7jqy5EeJKjyL6TnRXFqFJ htQac8MDVaAWF0cIE3vW1x SUSjAVfyj0R1jLT3E2Goyt Xdsz7vt9zz YVXwQRcoE47ozFKxw2F9HM RvaZQ3BYBwtBowXsIllD50 Oyc+JOYypZhoy9VeWlkpi2 nvs6yfeUc9 LfNzEFYtduGmoAovCLW5w8 OrIf56C58vDKtcHUTdPXPw IEBrLEYblNxmgs1qpZ7gUw 8+PGNvbCB3 tID1nE3dNPQkLhB5PEsgA8 04TwGwcXTfItick8lxa1do iTq0WkHnTBMemhQstAqgBS J2z9GxAn24 T90qYNmsAIXtCVUiMDMxNC CcjYvugg3hiL1pQz9+PC9j q3xjfp39vH82oTG+PHRkIH R8eTdlAFkc QHVteW3gKTlhGkF0IHQxSq XopX20yQOuLMtaNp4hdEft tObvAA8oFUWqxeutp182Dn Xnx2qqJAZr pGLtFXgpRYK5J34nr9P0TO DgUOUiXRR0iTQ2cQ0lnGyg bjogbGVmdDsgdmVydGljYW gbGSfwS025 IHRvcDsnPlBhdGllbnQgTm RsIEq4Z3QoHut8AIIfqUat SA4ruKQyXJqrXr6thJompW tjVU8aJCFa hsgtw891LiHaw4okHXVvxX AaFWtuPQH3L17uo1L9GEYm XIOdNXX2yCF0qZ7xrUypph ogbGVmdDsg plIvsRcyAAlmAMidR123DG RvcDsnPkJpcnRoIERhdGU6 UW04IU41kRHtd9O4mJZ1U3 BhZGRpbmct mbsjlGX3KEFzTNPykT76Vp 1yzJuxZb9nIDRcFVN9RJDq cJHmF2NaoS4pTtAzWYDrEX AeP6LsgXAp PHnaL165OTnoXnU3IACljp IcE4RdQQJckCfzGrA7p4K9 Rm1LY7J9TY89PZ25fVAgt2 S7oBA5P2Oi QXGdpyyyuzbtuNM6PLGtVJ IvgQ68Au0ghUnhDt8xWIOi OIZ0DXEqqPWbK0OowC4aAq AjMDAwMDAw Z6UusIOuDPaoT531HCowLv K3REZyljItN2HiBSMwfNeh IkP9t7R0Ci6COCk8TO94WZ 76rDEny8O9 cBC9F2OyYTGrsfoipjaxhR G2OHWmLPTchQ85Al3bvQsx Zz1gEBXxXNB7PIJgeVWjJ5 KyvR6dDdFk JMDoJIKkB7BitCQiFOerH7 20HZvkSaJ1DYYoclPrV2Pl PMNtzSymGgS2v9W5Ix3KVM CePU18EVX1 aDP1KX47EP33P3JqCmmeuF FibGU+PHRhYmxlIHdpZHRo YXzaYJSqFeZkqLwqWS1sRj 9yZGVyLWNv jIbhrYBdFcLrv1vkDQHhHP njOJ1aeOacN0XwxFR5XIKo a4o6Gt88K87wI2IfsIX+PG WizBD2kUK3 gO1eJmUuGqI9KFoxZ929Qg JkzBWeKvodi6rjl0oxyDp4 AkL4RHZmuuMwsSndLOC2w9 MkOi75R54n IHdpZHRoPSIxNSUiIHZhbG svhk7xqJ8vCz8+PGNvbCB3 mEX0dP0zKcOsHsJ5HNynH6 49InRvcCIv Habgd7eaj1xvwOt6IeBiWL UshvItyVvkSPU9i9TmHq65 R3DjbTwyt9WdJfv6tc16zP Xye7V9gPK7 A3JmEZCwrqgbaVCozTjjWZ 9nCUMrumezVAUrqA7iMOHc G0t6XuCrCwQ0GAhzW4Smls W3DCOswXWn EIxmSJJ6B02ab8X5TGDaXI SkKJP9uHB1tA4iqYvkrzmp bGVmdDsgdmVydGljYWwtYW drX247QKTs nSikEDPdhH3cNSGjnJUrhE lfQN5yQQVhqjejKcrLYEqS QjZjTFGNHjoBAL30IZ02dL Bmo9I4fSD3 H8QpHQZfhwoqwzpelRL9UO JvIOGcrT07xVAcLEoxXb6l t8V8j060LNCeTBTnoC60Qn 9udDogMTBw wINRjL8zlniqh5bpwmfuAv LrOEXgWMn1GYf5OGXkjKms YiDvEMS2IhN9NRJ2rZYxsW 1hbGlnbjog yI8eFuv+YDRaUUMuRZk2Sl wvdGQ+HTTrPIL1dAckHHgh HLBtnT3eXVLaL9z5XxYmEh Y0UHfmD5Uj ZVCseytmKw49tL6oDuDvHm C0NWuwZ1BzbaT7KSTecKIy FYmnFJR2C81ov6C9VOLiPX LrLIV6tBV0 rB0chMwcnjclhBWtgCsaxn JnrIdxLPycAIspX199UKDe nEycQgy1VOsmASEjJU71UD 93mTKqs8O9 zIR6R8FdLFKdhqijzmjkgL O3DBKoFVPhjO01pTDqUAqu Iu3di6E0g576EYHmPWDwfM 34Ah3ruIap FYPnbSDGiG4lhomuq2ffkt qmDzMfUYQaKFp1NRt4WJRy vNprZyJvAQE8SwF2IMZ0jV VhnS7aiWms btwxtC2xOxj+RmVtYWxlPC 85RG87bLZsq9R0uJG8E2Xv PQJdlhphdtlutDL6HWEiFX MifM99tPDy QVpgQg8me1S6e317XTIcNZ VxeT61Rj6lpZonPCTdnQPU wI6nndjwz3rhlbykLaNwGY OyPKj3DNf3 ZRUqlQdgSuUoVEI1WaD6YA L4fMXngF0bfFbhegsvyJ8o Oyc+U6G2uDS1aLJaeGkgyE Q+AJ36vk38 Y9BbAbglMcg1DCJcAVF7fY E2xC1cQLMkZRfvm8U8mFT5 X0OgagEllb7xq1tbJDCdLO saY38wvYOk o4K1YOLycSC4CBAgjHymJy EtvL73Tqw+BAOctWgty3Wn Wimxn9alr4vboWx8BxOtKB IgdmFsaWdu LJM0d8PaKx47L64dXNtkRX NhEIZdFFAbWWZkdNambj3s iK4fLy3+WCTcmEG4pCI5eV 7xIgQjQdL4 GCqnT345KnTxsXAzPpkmn5 bne8xwqZf8ZsVaPMXgqdQo mKujJEI1l9ToYz60G5JjiS dax3QkUil7 rc88fOOul7A9uXG8I6RgRU KeebdjkCLwfWcrVL3rFDLt jsxoSEQtfT8iLBFtH1p2Aj HjOoK5MVwl A6XvbfD3WKIdyNKgPVCjyV KOzB0kyvxou0qycbwoWjXw KHVcAHr7ZOc5BZQsqAceBs FaZJB2ZxV7 BAD4mJFsyX3tuJixhwytcH 9wOyc+GBk1p9mycTLpDP2s bLE7ZX21UL07cJYmw7H8fJ N2F7YmIRLf vokjlspgxLW0KKEoLSQwlW 35Rh2itLgiCy4kQVPeHJF8 TALcxCZpJ9FjyZ5qYiUaNO HlYWCzJ2Tu aWYzUMwdB134FMksHaV3TA HzvdWbK9VpSKMclWrrMeU2 u5E3Oa6JOY27TL00BT14oR Lmv2N0xGY6 K4IbPKDxpxutmwmmlGK2QD GiWDGnlM12Uc4pvCpgYj7r BADkYEH7TIBhwLMgF9WbpC 9yOiAjMDAw BBZbP6SufNUmXVvbI764ZD dtFoW5NFVhqvDjN7DyKOGs jAvuPdU8i1L1Cg8TBs90ZM 87JB11bJFq i6L3wAV0A5PoAQJsyefryb zxlEE3NWWhKCGltL02Ka7u hCfpHp9iCADiPBK7SSZkmZ IoV7CkfQ6o EeIdFSHvTLQsG0RlrEMaSJ faV028LRqfPzM5QYOhbwXd E0QuGCEqlLbjGgX4x6C3Av 5HKAkjepi2 F6IqPtoojSX+QL61EJWnOT 58iSVdxHHsn9xlmSp4JgTw BVAyCPH5pFahUTxtr7RxRO HgL70usGKf c2U6 (more content not included)... Normal [facility] Consent for Treatmenton 05-10 Consent for Treatment [id number] Normal [facility] Office/Cl inic Noteon 06-04-2022 [...] bruising tendency, no petechiae, no swollen nodes Allergy/Immunologic: no seasonal allergies, no food allergies, no [...] 81 mg= 1 tab(s), Oral, Daily Colace hydrochlorothiazide, 25 mg, Oral, Daily Lopressor niacin 500 mg ER Tab Pantoprazole [address] Tab potassium chloride 10 mEq Cap-ER, 20 mEq= 2 cap(s), Oral, Daily ranitidine, 75 mg, Oral, Daily, PRN Zyrtec Allergies Bee Stings (Edema) Neosporin (Blisters) acetaminophen-oxycodon e (Unknown) alendronate (Unknown) bacitracin (Unknown, Rash) ciprofloxacin (Unknown) neomycin (Unknown, Rash) oxyCODONE (Unknown) Social History Tobacco - Denies Tobacco Use, 06/04/2022 Former smoker, quit more than 30 days ago Tobacco Use:. Never Smokeless Tobacco Use:., 06/04/2022 Family History Acute myocardial infarction: Father. Alzheimer's disease: Mother. Diabetes mellitus type 2: Father. Normal [facility] Comment on above: Result Comment: Elec tronically Signed By: Justino CUNNINGHAM, Leon Ruiz\.br\Date and Time Signed: 06/04/22 11:00 EST Physician Orderon 06-04-2022 Physician Order [id number] Normal [facility] XR wrist RT min 3V*on 2022 XR wrist RT min 3V* [address] [address] XRay Report Signed Patient: Ellen Chan MR#: [id number] 1 : 1945 Acct:[id number] Age/Sex: 77 / F ADM Date: 05/23/22 [place] [facility] [place] Type: [facility] Attending Dr: Kate Mane MD Copies to: Kate Mane MD Ordering Provider: Kate Mane MD Date of Service: 05/23/22 XR/XR wrist [...] TO THE PRIOR STUDY. Impression dictated by: Erika Kruger Jr.OCara05/23/2022 3:50 PM Dictation Location: [place] [address] Transcribed By: [facility] 05/23/22 1550 Dictated By: Kit Quinonez Jr, DO 05/23/22 1548 Signed By: 05/23/22 1550 [facility] XR wrist RT min 3V* [facility] [employer] Other XR wrist RT min 3V* [facility] [employer] Other XR wrist RT min 3V* 1985 [facility] [employer] Other XR wrist RT min 3V* [address] [employer] Other XR wrist RT min 3V* XRay Report [place] [employer] Other XR wrist RT min 3V* Signed [employer] Other XR wrist RT min 3V* Patient: George Chan MR#: [id number] [place] [employer] Other XR wrist RT min 3V* 1 [employer] Other XR wrist RT min 3V* : 1945 Acct:[id number] [employer] Other XR wrist RT min 3V* Age/Sex: 77 / F ADM Date: 05/23/22 [employer] Other XR wrist RT min 3V* [place] [facility] [place] Type : [facility] [employer] Other XR wrist RT min 3V* Attending Dr: Que Mane MD [employer] Other XR wrist RT min 3V* Copies to: Kate Mane MD [employer] Other XR wrist RT min 3V* Ordering Provider: Kate Mane MD [employer] Other XR wrist RT min 3V* Date of Service: 05/23/22 [employer] Other XR wrist RT min 3V* XR/XR wrist RT min 3V*: Other closed extra-articular fracture of distal [employer] Other XR wrist RT min 3V* end of right [facility] [employer] Other XR wrist RT min 3V* RIGHT WRIST - 4 views [employer] Other XR wrist RT min 3V* CLINICAL HISTORY: Right distal radius fracture ORIF. Follow-up [employer] Other XR wrist RT min 3V* COMPARISON: Right wrist 04/30/2022 [employer] Other XR wrist RT min 3V* FINDINGS: [employer] Other XR wrist RT min 3V* Cast material is now been removed. Bones are grossly demineralized. Hardware fixation involving [employer] Other XR wrist RT min 3V* the distal radius without evidence of hardware complication. No significant healing is seen since [employer] Other XR wrist RT min 3V* the prior study. Remote styloid process fracture involving the ulna. 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 Soft tissue swelling. [employer] Other XR wrist RT min 3V* XR/XR wrist RT min 3V* [employer] Other XR wrist RT min 3V* IMPRESSION: [employer] Other XR wrist RT min 3V* NO SIGNIFICANT WHELAN E IN DISTAL RADIUS FRACTURE FINDINGS COMPARED TO THE PRIOR STUDY. [employer] Other XR wrist RT min 3V* Impression dictated by: Kit Quinonez Jr., DCaraO.05/23/2022 3:50 PM [employer] Other XR wrist RT min 3V* Dictation Location: [place] [address] [employer] Other XR wrist RT min 3V* Transcribed By: PWS 05/23/22 1550 [employer] Other XR wrist RT min 3V* Dictated By: Kit Quinonez Jr DO 05/23/22 1548 [employer] Other XR wrist RT min 3V* Signed By: [employer] Other XR wrist RT min 3V* 05/23/22 1550 No [employer] Other Basic Metabolic Panelon - Anion gap [Moles/Vol] 16.4 mmol/L High 6.0-15.0 [facility] Comment on above: Performed By: #### C BC, BMP #### [facility] [address] Calcium [Mass/Vol] 9.5 mg/dL Normal 8.2-10.2 [facility] Comment on above: Performed By: #### C BC, BMP #### [facility] [address] [place] [address] [place] Chloride [Moles/Vol] 98 mmol/L Normal 95-114 [facility] Comment on above: Performed By: #### C BC, BMP #### [facility] [address] CO2 [Moles/Vol] 24.1 mmol/L Normal 22.0-30.0 [facility] Comment on above: Performed By: #### C BC, BMP #### [facility] [address] Creatinine [Mass/Vol] 0.89 mg/dL Normal 0.44-1.03 [facility] Comment on above: Performed By: #### C BC, BMP #### [facility] [address] [place] [address] [place] Creatinine Clr Calc Pharmacy 49.75 [facility] Comment on above: Result Comment: PERF ORMED BY: [place] [address] PATHOLOGIST [employer] CARET[employer] ANDREA TIDWELL M.D. Performed By: #### C BC, BMP #### [address] Estimated GFR ( Samantha > 60 [facility] Comment on above: Result Comment: GFR estimated reference range: According to KDOQI guidelines, <60 ml/min/1.73m2 is sufficient to diagnose a patient with chronic kidney disease. Performed By: #### C BC, BMP #### [facility] [address] Estimated GFR (Non- Am > 60 [facility] Comment on above: Performed By: #### C BC, BMP #### [facility] [address] Glucose [Mass/Vol] 108 mg/dL High 70-100 [facility] Comment on above: Result Comment: [facility] Glucose Reference Range is dependent on time and content of last meal. Glucose of more than 200 mg/dL in a nonstressed, ambulatory subject supports the diagnosis of Diabetes Mellitus. ADA recommended reference range Performed By: #### C ANDREW, BMP #### [facility] [address] Potassium [Moles/Vol] 3.5 mmol/L Normal 3.5-5.1 [facility] Comment on above: Performed By: #### C ANDREW, BMP #### [facility] [address] Sodium [Moles/Vol] 135 mmol/L Low 136-146 [facility] Comment on above: Performed By: #### C ANDREW, BMP #### [facility] [address] Urea nitrogen [Mass/Vol] 17 mg/dL Normal - [facility] Comment on above: Performed By: #### C ANDREW, BMP #### [facility] [address] [place] [address] [place] Basophils Auto (Bld) [#/Vol] Ordered By: ARIANNE PURDY on 04-30-2022 Basophils (Bld) [#/Vol] 0.0 10*3/uL 0.0-0.2 [facility] Basophils/100 WBC Auto (Bld) Ordered By: ARIANNE PURDY on 04-30-2022 Basophils/100 WBC (Bld) 0.2 % . [facility] Complete Blood Count Auto Di ffon 04-30-2022 Basophils (Bld) [#/Vol] 0.0 10*3/uL Normal 0.0-0.2 [facility] Comment on above: Result Comment: PERF ORMED BY: [place] [address] PATHOLOGIST [employer] CAR[employer] ANDREA TIDWELL M.D. Performed By: #### C ANDREW, BMP #### [facility] [address] [place] [address] [place] Basophils/100 WBC (Bld) 0.2 % Normal . [facility] Comment on above: Performed By: #### C BC, BMP #### [facility] [address] Eosinophils (Bld) [#/Vol] 0.1 10*3/uL Normal 0.0-0.45 [facility] Comment on above: Performed By: #### C BC, BMP #### [facility] [address] Eosinophils/100 WBC (Bld) 1.1 % Normal . [facility] Comment on above: Performed By: #### C BC, BMP #### [address] Erythrocyte distribution width (RBC) [Ratio] 14.9 % Normal 11.9-15.3 [facility] Comment on above: Performed By: #### C BC, BMP #### [address] Hematocrit (Bld) [Volume fraction] 36.4 % Normal 34.0-46.4 [facility] Comment on above: Performed By: #### C BC, BMP #### [address] Hemoglobin (Bld) [Mass/Vol] 12.1 g/dL Normal 11.8-15.4 [facility] Comment on above: Performed By: #### C BC, BMP #### [place] [address] [place] Lymphocytes (Bld) [#/Vol] 1.2 10*3/uL Normal 1.00-4.8 [facility] Comment on above: Performed By: #### C BC, BMP #### [address] Lymphocytes/100 WBC (Bld) 16.1 % Normal . [facility] Comment on above: Performed By: #### C BC, BMP #### [address] MCH (RBC) [Entitic mass] 28.2 pg Normal 24.7-34.3 [facility] Comment on above: Performed By: #### C BC, BMP #### [address] MCV (RBC) [Entitic vol] 85.0 fL Normal 80-100 [facility] Comment on above: Performed By: #### C BC, BMP #### [address] Mean Corpuscular HGB Conc 33.2 g/dL Normal 32.0-35.0 [facility] Comment on above: Performed By: #### C BC, BMP #### [address] Monocytes (Bld) [#/Vol] 0.6 10*3/uL Normal 0.0-0.8 [facility] Comment on above: Performed By: #### C BC, BMP #### [address] Monocytes/100 WBC (Bld) 8.4 % Normal . [facility] Comment on above: Performed By: #### C BC, BMP #### [address] Neutrophils (Bld) [#/Vol] 5.6 10*3/uL Normal 1.8-7.7 [facility] Comment on above: Performed By: #### C BC, BMP #### [address] Neutrophils/100 WBC (Bld) 74.2 % Normal . [facility] Comment on above: Performed By: #### C BC, BMP #### [address] NRBC% 0.1 /100{WBC} Normal 0-0.5 [facility] Comment on above: Performed By: #### C BC, BMP #### [address] Platelet mean volume (Bld) [Entitic vol] 8.4 fL Normal 6.3-10.7 [facility] Comment on above: Performed By: #### C BC, BMP #### [facility] [address] Platelets (Bld) [#/Vol] 101 10*3/uL Low 150-450 [facility] Comment on above: Performed By: #### C BC, BMP #### [facility] [address] RBC (Bld) [#/Vol] 4.28 10*6/uL Normal 3.60-5.00 [facility] Comment on above: Performed By: #### C BC, BMP #### [facility] [address] WBC (Bld) [#/Vol] 7.6 10*3/uL Normal 3.8-11.6 [facility] Comment on above: Performed By: #### C ANDREW, BMP #### [facility] [address] Creatinine and Glomerular fi ltration rate.predicted panel (S/P/Bld)Ordered By: ARIANNE PURDY on 04-30-2022 Creatinine [Mass/Vol] 0.89 mg/dL 0.44-1.03 [facility] ECG 12 lead ECGon 04-30-2022 ECG 12 lead ECG [facility] [place] [address] [place] [address] Electrocardiograph Report Signed Patient: Ellen Chan MR#: [id number] 1 : 1945 Acct:[id number] Age/Sex: 77 / F ADM Date: 04/30/22 Loc: [place] Room: Type: [facility] Attending Dr: Kate Mane MD Ordering Provider: ARIANNE PURDY DO Date [...] previous ECGs available Confirmed by [id number] on 05/01/2022 5:11:40 PM Referred By: Electronically Signed By:EDITH GARCIA MD [facility] Transcribed By: MUS Signed By Camacho Garcia MD 05/01/22 1711 Normal [facility] Eosinophils Auto (Bld) [#/Vo l]Ordered By: ARIANNE PURDY on 04-30-2022 Eosinophils (Bld) [#/Vol] 0.1 10*3/uL 0.0-0.45 [facility] Eosinophils/100 WBC Auto (Bl d)Ordered By: ARIANNE PURDY on 04-30-2022 Eosinophils/100 WBC (Bld) 1.1 % . [facility] Erythrocyte distribution wid th Auto (RBC) [Ratio]Ordered By: ARIANNE PURDY on 04-30-2022 Erythrocyte distribution width (RBC) [Ratio] 14.9 % 11.9-15.3 [facility] Estimated glomerular filtrat ion rate (GFR) non- AmericanOrdered By: ARIANNE PURDY on 04-30-2022 GFR/1.73 sq M.predicted among non-blacks MDRD (S/P/Bld) [Vol rate/Area] > 60 mL/Min [facility] Hematocrit Auto (Bld) [Volum e fraction]Ordered By: ARIANNE PURDY on 04-30-2022 Hematocrit (Bld) [Volume fraction] 36.4 % 34.0-46.4 [facility] Hemoglobin [Mass/volume] in BloodOrdered By: ARIANNE PURDY on 04-30-2022 Hemoglobin (Bld) [Mass/Vol] 12.1 g/dL 11.8-15.4 [facility] Leukocytes [#/volume] correc roxane for nucleated erythrocytes in Blood by Automated counOrdered By: ARIANNE PURDY on 04-30-2022 WBC corrected for nucl RBC Auto (Bld) [#/Vol] 7.6 10*3/uL 3.8-11.6 [facility] Lymphocytes Auto (Bld) [#/Vo l]Ordered By: ARIANNE PURDY on 04-30-2022 Lymphocytes (Bld) [#/Vol] 1.2 10*3/uL 1.00-4.8 [facility] Lymphocytes/100 WBC Auto (Bl d)Ordered By: ARIANNE PURDY on 04-30-2022 Lymphocytes/100 WBC (Bld) 16.1 % . [facility] MCH Auto (RBC) [Entitic mass ]Ordered By: ARIANNE PURDY on 04-30-2022 MCH (RBC) [Entitic mass] 28.2 pg 24.7-34.3 [facility] MCHC Auto (RBC) [Mass/Vol]Or dered By: ARIANNE PURDY on 04-30-2022 MCHC (RBC) [Mass/Vol] 33.2 g/dL 32.0-35.0 [facility] MCV Auto (RBC) [Entitic vol] Ordered By: ARIANNE PURDY on 04-30-2022 MCV (RBC) [Entitic vol] 85.0 fL 80-100 [facility] Monocytes Auto (Bld) [#/Vol] Ordered By: ARIANNE PURDY on 04-30-2022 Monocytes (Bld) [#/Vol] 0.6 10*3/uL 0.0-0.8 [facility] Monocytes/100 WBC Auto (Bld) Ordered By: ARIANNE PURDY on 04-30-2022 Monocytes/100 WBC (Bld) 8.4 % . [facility] Neutrophils Auto (Bld) [#/Vo l]Ordered By: ARIANNE PURDY on 04-30-2022 Neutrophils (Bld) [#/Vol] 5.6 10*3/uL 1.8-7.7 [facility] Neutrophils/100 WBC Auto (Bl d)Ordered By: ARIANNE PURDY on 04-30-2022 Neutrophils/100 WBC (Bld) 74.2 % . [facility] No Panel InformationOrdered By: ARIANNE PURDY on 04-30-2022 Estimated GFR () > 60 mL/Min [facility] Comment on above: GFR estimated refere nce range: According to KDOQI guidelines, <60 ml/min/1.73m2 is sufficient to diagnose a patient with chronic kidney disease. Pharmacy Creatinine Clearance (Chem 49.75 [facility] Nucleated erythrocytes [Pres ence] in Blood by Automated countOrdered By: ARIANNE PURDY on 04-30-2022 Nucleated RBC Auto Ql (Bld) 0.1 /100{WBC} 0-0.5 [facility] Platelet mean volume Auto (B ld) [Entitic vol]Ordered By: ARIANNE PURDY on 04-30-2022 Platelet mean volume (Bld) [Entitic vol] 8.4 fL 6.3-10.7 [facility] Platelets Auto (Bld) [#/Vol] Ordered By: ARIANNE PURDY on 04-30-2022 Platelets (Bld) [#/Vol] 101 10*3/uL 150-450 [facility] RBC Auto (Bld) [#/Vol]Ordere d By: ARIANNE PURDY on 04-30-2022 RBC (Bld) [#/Vol] 4.28 10*6/uL 3.60-5.00 [facility] Serum or plasma anion gap de terminationOrdered By: ARIANNE PURDY on 04-30-2022 Anion gap [Moles/Vol] 16.4 mmol/L 6.0-15.0 [facility] Serum or plasma calcium nicky urement (mass/volume)Ordered By: ARIANNE PURDY on 04-30-2022 Calcium [Mass/Vol] 9.5 mg/dL 8.2-10.2 [facility] Serum or plasma chloride maged surement (moles/volume)Ordered By: ARIANNE PURDY on 04-30-2022 Chloride [Moles/Vol] 98 mmol/L 95-114 [facility] Serum or plasma glucose nicky urement (mass/volume)Ordered By: ARIANNE PURDY on 04-30-2022 Glucose [Mass/Vol] 108 mg/dL 70-100 [facility] Comment on above: ADA recommended refe rence rangeRandom Glucose Reference Range is dependent on time and content of last meal. Glucose of more than 200 mg/dL in a nonstressed, ambulatory subject supports the diagnosis of Diabetes Mellitus. Serum or plasma potassium me asurement (moles/volume)Ordered By: ARIANNE PURDY on 04-30-2022 Potassium [Moles/Vol] 3.5 mmol/L 3.5-5.1 [facility] Serum or plasma sodium measu rement (moles/volume)Ordered By: ARIANNE PURDY on 04-30-2022 Sodium [Moles/Vol] 135 mmol/L 136-146 [facility] Serum or plasma total carbon dioxide measurement (moles/volume)Ordered By: ARIANNE PURDY on 04-30-2022 CO2 [Moles/Vol] 24.1 mmol/L 22.0-30.0 [facility] Serum or plasma urea nitroge n measurement (mass/volume)Ordered By: ARIANNE PURDY on 04-30-2022 Urea nitrogen [Mass/Vol] 17 mg/dL 12-29 [facility] WBC Auto (Bld) [#/Vol]Ordere d By: ARIANNE PURDY on 04-30-2022 WBC (Bld) [#/Vol] 7.6 10*3/uL 3.8-11.6 [facility] XR wrist RT min 3V*on 2022 XR wrist RT min 3V* [facility] [place] [address] XRay Report Signed Patient: Ellen Chan MR#: [id number] 1 : 1945 Acct:[id number] Age/Sex: 77 / F ADM Date: 04/30/22 Loc: [place] Room: Type: [facility] Attending Dr: Kate Mane MD Copies to: Kate Mane MD Ordering Provider: Kate Mane MD Date of Service: 04/30/22 XR/XR wrist [...] COMPLICATION. Impression dictated by: Kit Quinonez Jr., D.O.04/30/2022 4:36 PM Dictation Location: [place] [address] Transcribed By: [facility] 04/30/22 1636 Dictated By: Kit Quinonez Jr, DO 04/30/22 1635 Signed By: 04/30/22 1636 Normal [facility] CBC AUTO DIFFon 04-27-2022 BASO # 0.0 103/ul Normal 0.0-0.1 [facility] Comment on above: Performed By: #### C BC #### [facility] [address] [place] [address] [address] Sangita Whelan Basophils/100 WBC (Bld) 0.2 % Normal 0.2-2.0 [facility] Comment on above: Performed By: #### C BC #### [facility] [address] [place] [address] [address] Sangita Whelan EO # 0.1 103/ul Normal 0.0-0.7 [facility] Comment on above: Performed By: #### C BC #### [facility] [address] [place] [address] Dr. Sangita Whelan Eosinophils/100 WBC (Bld) 0.7 % Critically low 0.9-7.0 [facility] Comment on above: Performed By: #### C BC #### [facility] [address] [place] [address] Dr. Sangita Whelan Erythrocyte distribution width (RBC) [Ratio] 14.3 % Normal 11.0-15.0 [facility] Comment on above: Performed By: #### C BC #### [facility] [address] [place] [address] Dr. Sangita Whelan Hematocrit (Bld) [Volume fraction] 33.1 % Critically low 36.0-48.0 [facility] Comment on above: Performed By: #### C BC #### [facility] [address] [place] [address] Dr. Sangita Whelan Hemoglobin (Bld) [Mass/Vol] 12.1 g/dL Normal 12.0-16.0 [facility] Comment on above: Performed By: #### C BC #### [facility] [address] [place] [address] Dr. Sangita Whelan IG # 0.04 10e3/ul Critically high 0.00-0.03 [facility] Comment on above: Performed By: #### C BC #### [facility] [address] [place] [address] Dr. Sangita Whelan IG % 0.5 % Normal 0.0-0.5 [facility] Comment on above: Performed By: #### C BC #### [facility] [address] [place] [address] Dr. Sangita Whelan LYMPH # 1.5 103/ul Normal 1.2-3.8 [facility] Comment on above: Performed By: #### C BC #### [facility] [address] [place] [address] Dr. Sangita Whelan Lymphocytes/100 WBC (Bld) 17.1 % Critically low 20.5-60.0 [facility] Comment on above: Performed By: #### C BC #### [facility] [address] [place] [address] Dr. Sagnita Whelan MANUAL DIFF REQ NO Normal [facility] Comment on above: Performed By: #### C BC #### [facility] [address] [place] [address] Dr. Sangita Whelan MCH (RBC) [Entitic mass] 28.7 pg Normal 26.7-34.0 [facility] Comment on above: Performed By: #### C BC #### [facility] [address] [place] [address] Dr. Sangita Whelan MCHC (RBC) [Mass/Vol] 36.6 g/dL Critically high 29.9-35.2 [facility] Comment on above: Performed By: #### C BC #### [facility] [address] [place] [address] Dr. Sangita Whelan MCV (RBC) [Entitic vol] 78.4 fL Critically low 81.0-99. 0 [facility] Comment on above: Performed By: #### C BC #### [facility] [address] [place] [address] Dr. Sangita Whelan MONO # 0.6 103/ul Normal 0.3-0.8 [facility] Comment on above: Performed By: #### C BC #### [facility] [address] [place] [address] Dr. Sangita Whelan Monocytes/100 WBC (Bld) 6.6 % Normal 1.7-12.0 [facility] Comment on above: Performed By: #### C BC #### [facility] [address] [place] [address] Dr. Sangita Whelan NEUT # 6.5 103/ul Normal 1.4-6.5 [facility] Comment on above: Performed By: #### C BC #### [facility] [address] [place] [address] Dr. Sangita Whelan Neutrophils/100 WBC (Bld) 74.9 % Normal 43.0-75.0 [facility] Comment on above: Performed By: #### C BC #### [facility] [address] [place] [address] Dr. Sangita Whelan Platelet mean volume (Bld) [Entitic vol] 9.7 fL Normal 9.5-13.5 [facility] Comment on above: Performed By: #### C BC #### [facility] [address] [place] [address] Dr. Sangita Whelan PLT 99 103/ul Critically low 150-450 [facility] Comment on above: Performed By: #### C BC #### [facility] [address] [place] [address] Dr. Sangita Whelan RBC 4.22 106/ul Normal 4.20-5.40 [facility] Comment on above: Performed By: #### C BC #### [facility] [address] [place] [address] Dr. Sangita Whelan WBC 8.7 103/ul Normal 4.0-11.0 [facility] Comment on above: Performed By: #### C BC #### [facility] [address] [place] [address] Dr. Sangita Whelan PROF 14(COMP METB)on 023 Albumin [Mass/Vol] 3.3 g/dL Critically low 3.4-5.0 [facility] Comment on above: Performed By: #### C MP #### [facility] [address] [place] [address] Dr. Sangita Whelan Albumin/Globulin [Mass ratio] 0.9 {ratio} Normal [facility] Comment on above: Performed By: #### C MP #### [facility] [address] [place] [address] [address] Sangita Whelan ALP [Catalytic activity/Vol] 76 U/L Normal 46-116 [facility] Comment on above: Performed By: #### C MP #### [facility] [address] [place] [address] [address] Sangita Whelan ALT [Catalytic activity/Vol] 21 U/L Normal 14-59 [facility] Comment on above: Performed By: #### C MP #### [facility] [address] [place] [address] Dr. Sangita Whelan Anion gap [Moles/Vol] 9.5 mmol/L Normal [facility] Comment on above: Performed By: #### C MP #### [facility] [address] [place] [address] Dr. Sangita Whelan AST [Catalytic activity/Vol] 18 U/L Normal 15-37 [facility] Comment on above: Performed By: #### C MP #### [facility] [address] [place] [address] Dr. Sangita Whelan Bilirubin [Mass/Vol] 0.3 mg/dL Normal 0.2-1.0 [facility] Comment on above: Performed By: #### C MP #### [facility] [address] [place] [address] Dr. Sangita Whelan Calcium [Mass/Vol] 9.0 mg/dL Normal 8.5-10.1 [facility] Comment on above: Performed By: #### C MP #### [facility] [address] [address] [address] Sangita Whelan Chloride [Moles/Vol] 104 mmol/L Normal 98-107 [facility] Comment on above: Performed By: #### C MP #### [facility] [address] [place] [address] Dr. Sangita Whelan CO2 [Moles/Vol] 30.3 mmol/L Normal 21.0-32.0 [facility] Comment on above: Performed By: #### C MP #### [facility] [address] [address] [address] Sangita Whelan Creatinine [Mass/Vol] 0.85 mg/dL Normal 0.55-1.02 [facility] Comment on above: Performed By: #### C MP #### [facility] [address] [address] [address] Sangita Whelan EGFR-AF PERUVIAN >60 Normal >=60 [facility] Comment on above: Performed By: #### C MP #### [facility] [address] [address] [address] Sangita Whelan EGFR-NON AF PERUVIAN >60 Normal >=60 [facility] Comment on above: Performed By: #### C MP #### [facility] [address] [address] [address] Sangita Whelan Globulin (S) [Mass/Vol] 3.7 g/dL Normal T [facility] Comment on above: Performed By: #### C MP #### [facility] [address] [address] [address] Sangita Whelan Glucose [Mass/Vol] 87 mg/dL Normal 74-106 [facility] Comment on above: Performed By: #### C MP #### [facility] [address] [address] [address] Sangita Whelan Potassium [Moles/Vol] 3.8 mmol/L Normal 3.5-5.1 [facility] Comment on above: Performed By: #### C MP #### [facility] [address] [address] [address] Sangita Whelan Protein [Mass/Vol] 7.0 g/dL Normal 6.4-8.2 [facility] Comment on above: Performed By: #### C MP #### [facility] [address] [address] [address] Sangita Whelan Sodium [Moles/Vol] 140 mmol/L Normal 136-145 [facility] Comment on above: Performed By: #### C MP #### [facility] [address] [place], [place] [address] Dr. Sangita Whelan Urea nitrogen [Mass/Vol] 16.0 mg/dL Normal 7.0-18.0 [facility] Comment on above: Performed By: #### C MP #### [facility] [address] [place], [place] [address] Dr. Sangita Whelan Urea nitrogen/Creatinine [Mass ratio] 18.8 mg/mg Normal [facility] Comment on above: Performed By: #### C MP #### [facility] [address] [place], [place] [address] Dr. Sangita Whelan XR FOREARM RT 2Von 3 XR FOREARM [...] by: CARO CAICEDO Date: 2022-04-27 10:42 Normal [facility] MAMM SCREEN 3D GENO CADon 04-25-2022 MG MAMM SCREEN 3D GENO CAD Patient: ELLEN CHAN Exam Date: 04/25/2022 : 1945 Gender:F Ordering : DR NITHYA BROWN M.D. Admission #: [id number] Family : Order #: [id number] CLICK HERE TO VIEW EXAM RADIOLOGY REPORT [...] No Treatments None Family Cancers None LOCATION: [facility] BREAST COMPOSITION: Heterogeneously dense,which may [...] LUMP SHOULD BE BIOPSIED. Dictated by: Arianne Palma MD on 04/25/2022 at 12:29 Approved by: Arianne Palma MD on 04/25/2022 at 12:32 Normal [facility] Referrals Officeon 3 Referrals Office [id number] Appointment for 05/14/2022 @ 930 Normal [facility] XR LSPINE 2_3 VIEWSon 2022 XR LSPINE 2_3 VIEWS EXAMINATION: XR LSPI NE 2_3 VIEWS HISTORY: Low back pain COMPARISON: [...] aneurysms with endografts Electronically authenticated by: ARIANNE PALMA Date: 2022-04-16 15:12 Normal [facility] CTA CHEST WO W CONon 08-03- 022 CTA CHEST WO W CON EXAMINATION: CTA JP ST WO W CON HISTORY: Thoracic aortic aneurysm [...] by: ANTOLIN VALLADARES Date: 2021-08-03 10:44 Normal [facility] Operative Reporton 2 Operative Report MR#: [id number] I [facility] Pt. Name: Ellen Chan Room #: REC 200 05 Discharge 07/13/2021 Date: Birthdate: 1945 OPERATIVE REPORT DATE OF SURGERY: 07/12/2021 SURGEON: Leon Badillo MD ANESTHESIA: General anesthesia. PREOPERATIVE DIAGNOSIS: [...] All counts were correct. Electronically Signed by: Leon Badillo MD 07/26/2021 01:20 P Leon Badillo MD Date Dict: 07/25/2021/10:53 A/Leon Badillo MD Date Trans: 07/25/2021 11:33 A/mmo DN_[id number] Normal [facility] BASIC METABOLIC PANELon 04-0 Calcium [Mass/Vol] 8.4 mg/dL Low 8.6-10.3 [facility] Comment on above: Order Comment: No: D o not add to previous draw Performed By: #### 1 69, [id number] #### [facility] [address] [place] [address], [facility] Chloride [Moles/Vol] 105 mmol/L Normal 98-107 [facility] Comment on above: Order Comment: No: D o not add to previous draw Performed By: #### 1 69, 22093 #### [facility] [address] [place] [address], [place] CO2 [Moles/Vol] 25 mmol/L Normal 21-31 [facility] Comment on above: Order Comment: No: D o not add to previous draw Performed By: #### 1 69, 45287 #### [facility] [address] [place] [address], [place] Creatinine [Mass/Vol] 0.60 mg/dL Normal 0.60-1.20 [facility] Comment on above: Order Comment: No: D o not add to previous draw Performed By: #### 1 69, 96646 #### [facility] [address] [place] [address], [place] GFR/1.73 sq M.predicted among blacks MDRD (S/P/Bld) [Vol rate/Area] mL/min/{1.73_m2} Normal >60 [facility] Comment on above: Order Comment: No: D o not add to previous draw Result Comment: Calc ulation may not be valid for patients over 70 years Performed By: #### 1 0, 47455 #### [facility] [address] [place] [address], [place] GFR/1.73 sq M.predicted among non-blacks MDRD (S/P/Bld) [Vol rate/Area] mL/min/{1.73_m2} Normal >60 [facility] Comment on above: Order Comment: No: D o not add to previous draw Result Comment: Calc ulation may not be valid for patients over 70 years Performed By: #### 1 69, 38655 #### [facility] [address] [place] [address], [place] Glucose [Mass/Vol] 92 mg/dL Normal 70-100 [facility] Comment on above: Order Comment: No: D o not add to previous draw Performed By: #### 1 69, 68522 #### [facility] [address] [place] [address], [place] Potassium [Moles/Vol] 3.7 mmol/L Normal 3.5-5.1 [facility] Comment on above: Order Comment: No: D o not add to previous draw Performed By: #### 1 69, 88133 #### [facility] [address] [place] [address], [place] Sodium [Moles/Vol] 138 mmol/L Normal 136-145 [facility] Comment on above: Order Comment: No: D o not add to previous draw Performed By: #### 1 69, 72335 #### [facility] [address] [place] [address], [place] Urea nitrogen [Mass/Vol] 11 mg/dL Normal 7-25 [facility] Comment on above: Order Comment: No: D o not add to previous draw Performed By: #### 1 0070, 76181 #### [facility] [address] [place] [address], [facility] CBC COMPLETE BLOOD COUNTon 0 07-13-2021 Erythrocyte distribution width (RBC) [Ratio] 14.5 % Normal 11.5-15.0 [facility] Comment on above: Order Comment: No: D o not add to previous draw Performed By: #### 3 0739 #### [facility] [address] [place] [address], [facility] Hematocrit (Bld) [Volume fraction] 33.7 % Low 36.0-45.0 [facility] Comment on above: Order Comment: No: D o not add to previous draw Performed By: #### 3 0739 #### [facility] [address] [place] [address], [facility] Hemoglobin (Bld) [Mass/Vol] 11.5 g/dL Low 12.0-15.0 [facility] Comment on above: Order Comment: No: D o not add to previous draw Performed By: #### 3 0739 #### [facility] [address] [place] [address], [facility] IMM PLATELET FRAC 3.4 % Normal 0.8-6.3 The [facility] Comment on above: Order Comment: No: D o not add to previous draw Performed By: #### 3 0739 #### [facility] [address] [place] [address], [facility] MCH (RBC) [Entitic mass] 28.7 pg Normal 27.0-33.0 [facility] Comment on above: Order Comment: No: D o not add to previous draw Performed By: #### 3 0739 #### [facility] [address] [place] [address], [facility] MCHC (RBC) [Mass/Vol] 34.1 g/dL Normal 32.0-35.0 [facility] Comment on above: Order Comment: No: D o not add to previous draw Performed By: #### 3 0739 #### [facility] [address] [place] [address], [facility] MCV (RBC) [Entitic vol] 84.0 fL Normal 82.0-98.[address] [facility] Comment on above: Order Comment: No: D o not add to previous draw Performed By: #### 3 0739 #### [facility] [address] [facility] [place] [address], [facility] Nucleated RBC/100 WBC (Bld) [Ratio] 0 % Normal 0-0 [facility] Comment on above: Order Comment: No: D o not add to previous draw Performed By: #### 3 0739 #### [facility] [address] [place] [address], [facility] PLAT CNT 91 10*3/uL Low 150-400 [facility] Comment on above: Order Comment: No: D o not add to previous draw Performed By: #### 3 0739 #### [facility] [address] [facility] [place] [address], [facility] RBC (Bld) [#/Vol] 4.01 10*6/uL Normal 3.80-5.00 The [facility] Comment on above: Order Comment: No: D o not add to previous draw Performed By: #### 3 0739 #### [facility] [address] [place] [id number], [facility] WBC (Bld) [#/Vol] 7.44 10*3/uL Normal 4.00-10.60 [facility] Comment on above: Order Comment: No: D o not add to previous draw Performed By: #### 3 0739 #### [facility] [address] [place] [address], [facility] MAGNESIUM BLOODon 04-07-2022 Magnesium [Mass/Vol] 1.8 mg/dL Low 1.9-2.7 [facility] Comment on above: Order Comment: No: D o not add to previous draw Performed By: #### 1 0070, 86392 #### [facility] [address] [place] [address], [place] ACTIVATED CLOTTING TIMEon ACTIVATED CLOTTING TIME 132 sec Normal 82-[address] [facility] Comment on above: Performed By: #### 3 0739 #### [facility] [address] [place] [address], [place] ACTIVATED CLOTTING TIME 272 sec High 82-[address] [facility] Comment on above: Performed By: #### 3 0739 #### [facility] [address] [place] [address], [place] ACTIVATED CLOTTING TIME 138 sec Normal 82-[address] [facility] Comment on above: Performed By: #### 3 0739 #### [facility] [address] [place] [address], [place] BASIC METABOLIC PANELon Calcium [Mass/Vol] 8.6 mg/dL Normal 8.6-10.3 [facility] Comment on above: Order Comment: No: D o not add to previous draw Performed By: #### 0 0071, 70363 #### [facility] [address] [place] [address], [place] Chloride [Moles/Vol] 105 mmol/L Normal 98-107 [facility] Comment on above: Order Comment: No: D o not add to previous draw Performed By: #### 0 0071, 36637 #### [facility] [address] [place] [address], [place] CO2 [Moles/Vol] 27 mmol/L Normal 21-31 [facility] Comment on above: Order Comment: No: D o not add to previous draw Performed By: #### 0 0071, 36716 #### [facility] [address] [place] [address], [place] Creatinine [Mass/Vol] 0.64 mg/dL Normal 0.60-1.20 [facility] Comment on above: Order Comment: No: D o not add to previous draw Performed By: #### 0 0071, 48857 #### [facility] [address] [place] [address], [facility] GFR/1.73 sq M.predicted among blacks MDRD (S/P/Bld) [Vol rate/Area] mL/min/{1.73_m2} Normal >60 [facility] Comment on above: Order Comment: No: D o not add to previous draw Result Comment: Calc ulation may not be valid for patients over 70 years Performed By: #### 0 0071, 75086 #### [facility] [address] [place] [address], [facility] GFR/1.73 sq M.predicted among non-blacks MDRD (S/P/Bld) [Vol rate/Area] mL/min/{1.73_m2} Normal >60 [facility] Comment on above: Order Comment: No: D o not add to previous draw Result Comment: Calc ulation may not be valid for patients over 70 years Performed By: #### 0 0071, 72712 #### [facility] [address] [place] [address], [place] Glucose [Mass/Vol] 108 mg/dL High 70-100 [facility] Comment on above: Order Comment: No: D o not add to previous draw Performed By: #### 0 0071, 04599 #### [facility] [address] [place] [address], [place] Potassium [Moles/Vol] 3.4 mmol/L Low 3.5-5.1 [facility] Comment on above: Order Comment: No: D o not add to previous draw Performed By: #### 0 0071, 27574 #### [facility] [address] [place] [address], [facility] Sodium [Moles/Vol] 139 mmol/L Normal 136-145 [facility] Comment on above: Order Comment: No: D o not add to previous draw Performed By: #### 0 0071, 77008 #### [facility] [address] [place] [address], [facility] Urea nitrogen [Mass/Vol] 15 mg/dL Normal 7-25 [facility] Comment on above: Order Comment: No: D o not add to previous draw Performed By: #### 0 0071, 15562 #### [facility] [address] [facility] [place] [address], [facility] CBC W/DIFFon 07-12-2021 ABS IMM GRANS 0.0 10*3/uL Normal 0.0-0.2 The [facility] Comment on above: Performed By: #### 3 0739 #### [facility] [address] [facility] [place] [address], [facility] ABS NEUTROPHILS 3.9 10*3/uL Normal 1.6-7.6 [facility] Comment on above: Performed By: #### 3 0739 #### [facility] [address] [facility] [place] [address], [facility] Basophils (Bld) [#/Vol] 0.0 10*3/uL Normal 0.0-0.2 [facility] Comment on above: Performed By: #### 3 0739 #### [facility] [address] [facility] [place] [address], [facility] Basophils/100 WBC (Bld) 0.2 % Normal 0.0-1.[address] [facility] Comment on above: Performed By: #### 3 0739 #### [facility] [address] [place] [address], [facility] Eosinophils (Bld) [#/Vol] 0.1 10*3/uL Normal 0.0-0.5 [facility] Comment on above: Performed By: #### 3 0739 #### [facility] [address] [facility] [place] [address], [facility] Eosinophils/100 WBC (Bld) 1.8 % Normal 0.0-6.0 [facility] Comment on above: Performed By: #### 3 0739 #### [facility] [address] [facility] [address] Erythrocyte distribution width (RBC) [Ratio] 14.4 % Normal 11.5-15.0 [facility] Comment on above: Performed By: #### 3 0739 #### [facility] [address] [place] [address], [facility] Hematocrit (Bld) [Volume fraction] 36.7 % Normal 36.0-45.0 [facility] Comment on above: Performed By: #### 3 0739 #### [facility] [address] [facility] [place] [address], [facility] Hemoglobin (Bld) [Mass/Vol] 12.1 g/dL Normal 12.0-15.0 [facility] Comment on above: Performed By: #### 3 0739 #### [facility] [address] [facility] [place] [address], [facility] IMM PLATELET FRAC 3.5 % Normal 0.8-6.3 The [facility] Comment on above: Performed By: #### 3 0739 #### [facility] [address] [place] [address], [facility] IMMATURE GRANS 0.6 % Normal 0.0-1.0 The [facility] Comment on above: Performed By: #### 3 0739 #### [facility] [address] [place] [id number], [facility] Lymphocytes (Bld) [#/Vol] 1.1 10*3/uL Low 1.2-4.0 [facility] Comment on above: Performed By: #### 3 0739 #### [facility] [address] [facility] [place] [address], [facility] Lymphocytes/100 WBC (Bld) 19.8 % Low 20.0-45.0 [facility] Comment on above: Performed By: #### 3 0739 #### [facility] [address] [facility] [place] [address], [facility] MCH (RBC) [Entitic mass] 28.5 pg Normal 27.0-33.0 [facility] Comment on above: Performed By: #### 3 0739 #### [facility] [address] [facility] [place] [address], [facility] MCHC (RBC) [Mass/Vol] 33.0 g/dL Normal 32.0-35.0 [facility] Comment on above: Performed By: #### 3 0739 #### [facility] [address] [facility] [place] [address], [facility] MCV (RBC) [Entitic vol] 86.6 fL Normal 82.0-98.0 T [facility] Comment on above: Performed By: #### 3 0739 #### [facility] [address] [place] [address], [facility] Monocytes (Bld) [#/Vol] 0.4 10*3/uL Normal 0.1-1.0 [facility] Comment on above: Performed By: #### 3 0739 #### [facility] [address] [place] [address], [facility] MONOS 6.4 % Normal 5.0-12.0 [facility] Comment on above: Performed By: #### 3 0739 #### [facility] [address] [facility] [place] [address], [facility] Neutrophils/100 WBC (Bld) 71.2 % Normal 40.0-72.0 [facility] Comment on above: Performed By: #### 3 0739 #### [facility] [address] Nucleated RBC/100 WBC (Bld) [Ratio] 0 % Normal 0-0 [facility] Comment on above: Performed By: #### 3 0739 #### [facility] [address] [facility] [place] [address], [facility] PLAT CNT 96 10*3/uL Low 150-400 [facility] Comment on above: Performed By: #### 3 0739 #### [facility] [address] [facility] [place] [address], [facility] RBC (Bld) [#/Vol] 4.24 10*6/uL Normal 3.80-5.00 The [facility] Comment on above: Performed By: #### 3 0739 #### [facility] [address] [facility]. [address] WBC (Bld) [#/Vol] 5.45 10*3/uL Normal 4.00-10.60 The [facility] Comment on above: Performed By: #### 3 0739 #### [facility] [address] MAGNESIUM BLOODon 07-12-2021 Magnesium [Mass/Vol] 1.6 mg/dL Low 1.9-2.7 [facility] Comment on above: Order Comment: No: D o not add to previous draw Performed By: #### 0 0071, 33107 #### [facility] [address] [facility]. [address] PLATELET FUNCTION SCREENon 0 07-12-2021 COLLAGEN/ADP 87 sec Normal 56-110 The [facility] Comment on above: Order Comment: [...] warranted. Performed By: #### 8 4505 #### [facility] [address] [place] [address], [facility] COLLAGEN/EPINEPHRINE 218 sec High 82-159 [facility] Comment on above: Order Comment: No: D o not add to previous draw Performed By: #### 8 4505 #### [facility] [address] [place] [address], [facility] POC GLUCOSE LABon 07-12-2021 Glucose [Mass/Vol] 99 mg/dL Normal 70-100 The [facility] Comment on above: Performed By: #### 3 0739 #### [facility] [address] [place] [address], [place] Glucose [Mass/Vol] 103 mg/dL High 70-100 The [facility] Comment on above: Performed By: #### 3 0739 #### [facility] [address] [place] [address], [facility] US LILIANA DOP LEG LTon 06-07-19 US [...] by: ANTOLIN VALLADARES Date: 2021-06-06 11:20 Normal [facility] CTA ABDOMEN AND PELVISon CTA ABDOMEN AND PELVIS [facility] Department of Radiology [address] [place] [address] ======== Patient Name: ELLEN CHAN : 1945 Sex: F Age: Race: White Pt. Location: Patient Status: D Ordered Date: 03/09/2021 11:05:00 AM Completed Date: 04/26/2021 10:27 AM Requesting Provider: LEON BADILLO Attending Provider: LEON BADILLO Report Copy To: NITHYA BROWN Signs & Symptoms: I71.2 Thoracic aortic aneurysm, without rupture I10 History: [place] patient will need labs has 2 ct's to schedule same day on 04/26/2021 prior to 11 AM follow up appt Comments: Exam: CTA ABDOMEN AND PELVIS ======== CTA ABDOMEN AND PELVIS 04/26/2021 10:27 AM [...] or biliary abnormalities evident. The patient is postcholecystectomy. Renal cysts are present with no hydronephrosis [...] above Right renal artery stenosis. Electronically signed: Rajan Mtz. Transcribed by: [email or web address], User Resident: Electronically Signed by: RAJAN MTZ @ 04/27/2021 01:22 PM Normal [facility] CTA CHESTon 04-26-2021 CTA CHEST [facility] Department of Radiology [address] [place] [id number] ======== Patient Name: ELLEN CHAN : 1945 Sex: F Age: Race: White Pt. Location: Patient Status: D Ordered Date: 03/09/2021 11:05:00 AM Completed Date: 04/26/2021 10:27 AM Requesting Provider: LEON BADILLO Attending Provider: LEON BADILLO Report Copy To: NITHYA BROWN Signs & Symptoms: I71.2 Thoracic aortic aneurysm, without rupture I10 History: [place] patient will need labs has 2 ct's to schedule same day on 04/26/2021 prior to 11 AM follow up appt Comments: Exam: CTA CHEST ======== Clinical History: Follow-up ossicle aortic aneurysm. CTA [...] with no acute lesion identified. Electronically signed: Rajan Mtz. Transcribed by: [email or web address], User Resident: Electronically Signed by: RAJAN MTZ @ 04/27/2021 12:48 PM Normal [facility] Vital Signs Date Time Vital Sign Value Performing Clinician Facility 04-17-2023 07:27-0500 Body temperature 97.9 [degF] Willard Krueger MD Work Phone: [facility] 04-17-2023 07:27-0500 Diastolic blood pressure 93 mm[Hg] Willard Krueger MD Work Phone: [facility] 04-17-2023 07:27-0500 Heart rate 70 /min Willard Krueger MD Work Phone: [facility] 04-17-2023 07:27-0500 Respiratory rate 18 /min Willard Krueger MD Work Phone: [facility] 04-17-2023 07:27-0500 Systolic blood pressure 161 mm[Hg] Willard Krueger MD Work Phone: [facility] 04-17-2023 05:00-0500 Body mass index (BMI) [Ratio] 25.47 kg/m2 Willard Krueger MD Work Phone: [facility] 04-17-2023 05:00-0500 Body weight 67.3 kg Willard Krueger MD Work Phone: [facility] 04-16-2023 23:08-0500 SaO2% (BldA) [Mass fraction] 95 % Willard Krueger MD Work Phone: [facility] 04-07-2023 05:12-0500 SaO2% (BldA) [Mass fraction] 96 % WILLARDISAK KRUEGER [facility] Comment on above: Performed By: #### G ####[facility] ([id number])[address] [place] [address] 04-07-2023 03:15-0500 Body temperature 98.6 [degF] Willard Krueger MD Work Phone: [facility] 04-07-2023 03:15-0500 SaO2% (BldA) [Mass fraction] 95.0 % Willard Krueger MD Work Phone: [facility] 04-07-2023 03:15-0500 SaO2% (BldA) [Mass fraction] 96 % Willard Krueger MD Work Phone: [facility] 04-06-2023 13:56-0500 SaO2% (BldA) [Mass fraction] 95 % WILLARD KRUEGER [facility] Comment on above: Performed By: #### ABG ####[facility] ([id number])2[address] [place] [address] 04-06-2023 11:59-0500 Body temperature 98.6 [degF] Willard Krueger MD Work Phone: [facility] [employer] [facility] 04-06-2023 11:59-0500 SaO2% (BldA) [Mass fraction] 92.0 % Willard Krueger MD Work Phone: [facility] [employer] 04-06-2023 11:59-0500 SaO2% (BldA) [Mass fraction] 95 % Willard Krueger MD Work Phone: [facility] [employer] 04-01-2023 22:00-0500 Body height 162.6 cm Willard [facility] 10-02-2022 10:45-0400 Body height Kate Mane Other [employer] Other 10-02-2022 10:45-0400 Body mass index (BMI) [Ratio] 26.77 kg/m2 Kate Mane Other [employer] Other 10-02-2022 10:45-0400 Body weight 70.76 kg Kate Mane Other [employer] Other 09-07-2022 09:30-0400 Body height Nithya Brown Other [employer] Other 09-07-2022 09:30-0400 Body mass index (BMI) [Ratio] 26.43 kg/m2 Nithya Brown Other [employer] Other 09-07-2022 09:30-0400 Body weight 69.85 kg Nithya Brown Other [employer] Other 09-07-2022 09:30-0400 Diastolic blood pressure 87 mm[Hg] Nithya Mellissa Other [employer] Other 09-07-2022 09:30-0400 Systolic blood pressure 132 mm[Hg] Nithya Mellissa Other [employer] Other 06-04-2022 10:46-0500 Diastolic blood pressure 87 mm[Hg] Leon Badillo [facility] 06-04-2022 10:46-0500 Mean blood pressure 107 mm[Hg] [facility] Justino [facility] 06-04-2022 10:46-0500 Systolic blood pressure 146 mm[Hg] Leon Justino [facility] 06-04-2022 10:32-0500 Blood Pressure Location Leon Justino [facility] 06-04-2022 10:32-0500 Diastolic blood pressure 88 mm[Hg] Leon Justino [facility] 06-04-2022 10:32-0500 Heart rate 77 /min [facility] Justino [facility] 06-04-2022 10:32-0500 SaO2% (BldA) [Mass fraction] 98 % [facility] Heckan [facility] 02-27-2023 10:32-0500 Systolic blood pressure 146 mm[Hg] Leon Badillo [facility] 04-30-2022 17:32-0500 Diastolic blood pressure 96 mm[Hg] MD Nithya Brown Work Phone: [facility] 04-30-2022 17:32-0500 Heart rate 85 /min MD Nithya Brown Work Phone: [facility] 04-30-2022 17:32-0500 Respiratory rate 16 /min MD Nithya Brown Work Phone: [facility] 04-30-2022 17:32-0500 SaO2% (BldA) [Mass fraction] 96 % MD Nithya Brown Work Phone: [facility] 04-30-2022 17:32-0500 Systolic blood pressure 147 mm[Hg] MD Nithya Brown Work Phone: [facility] 04-30-2022 17:17-0500 Inhaled oxygen flow rate 2 L/min MD Nithya Brown Work Phone: [facility] 04-30-2022 14:47-0500 Body mass index (BMI) [Ratio] 27.1 kg/m2 MD Nithya Brown Work Phone: [facility] 04-30-2022 14:21-0500 Body height 162.56 cm MD Nithya Brown Work Phone: [facility] 04-30-2022 14:21-0500 Body weight 71.66 kg MD Nithya Brown Work Phone: [facility] 04-30-2022 12:59-0500 Body temperature 98.3 [degF] MD Nithya Brown Work Phone: [facility] 04-10-2022 11:45-0500 Body height Nithya Borwn Other [employer] [facility] [employer] Other 04-10-2022 11:45-0500 Body mass index (BMI) [Ratio] 28.15 kg/m2 Nithya Brown Other [employer] Other 04-10-2022 11:45-0500 Body weight 74.39 kg Nihtya Brown Other [employer] Other 04-10-2022 11:45-0500 Diastolic blood pressure 90 mm[Hg] Nithya Brown Other [employer] Other 04-10-2022 11:45-0500 SaO2% (BldA) [Mass fraction] 95 % Nithya Brown Other [employer] Other 04-10-2022 11:45-0500 Systolic blood pressure 152 mm[Hg] Nithya Brown Other [employer] Other Encounters Encounter Date Encounter Type Care Provider Facility Start: 04-25-2023 End: 04-25-2023 ambulatory Nithya Brown Other [employer] Other Start: 04-25-2023 Telephone encounter Nithya Brown [facility] Start: 04-22-2023 End: 04-22-2023 ambulatory Nithya Brown Other [employer] Other Start: 04-22-2023 Telephone encounter Nithya Brown [facility] Start: 04-18-2023 End: 04-18-2023 ambulatory WILLARD F PATI [employer] Other Start: 04-18-2023 Initial nursing faci lity care/day 35 minutes Nithya Brown [facility] [place] Start: 04-17-2023 Documentation procedure Scarlet Chin [facility] Start: 04-17-2023 End: 04-17-2023 Evaluation and management of inpatient WON WEBSTER [facility] Start: 04-12-2023 End: 04-17-2023 Evaluation and management of inpatient OKSANA BAL [facility] Start: 04-11-2023 End: 04-17-2023 Evaluation and management of inpatient DAE BO [facility] Start: 04-11-2023 End: 04-17-2023 Evaluation and management of inpatient HASEEB MCNAMARA [facility] Start: 04-10-2023 End: 04-17-2023 Evaluation and management of inpatient CHEN LLOYD [facility] Start: 04-10-2023 End: 04-17-2023 Evaluation and management of inpatient MAI HO [facility] Start: 04-09-2023 End: 04-17-2023 Evaluation and management of inpatient ARTEMIO RAY [facility] Start: 04-09-2023 End: 04-17-2023 Evaluation and management of inpatient ZAY CHAPA [facility] Start: 04-09-2023 End: 04-17-2023 Evaluation and management of inpatient BRANDON [facility] Start: 04-08-2023 End: 04-17-2023 Evaluation and management of inpatient BRANDON [facility] Start: 04-07-2023 End: 04-17-2023 Evaluation and management of inpatient JANET MCALLISTER [facility] Start: 04-06-2023 End: 04-17-2023 Evaluation and management of inpatient ARTEMIO RAY [facility] Start: 04-06-2023 End: 04-17-2023 Evaluation and management of inpatient CHRISTINA FREITAS [facility] Start: 04-06-2023 End: 04-17-2023 Evaluation and management of inpatient ARTEMIO RAY [facility] Start: 04-05-2023 End: 04-17-2023 Evaluation and management of inpatient [facility] Start: 04-03-2023 End: 04-03-2023 Evaluation and management of inpatient JORDAN HASSAN [facility] Start: 04-03-2023 End: 04-17-2023 Evaluation and management of inpatient [facility] ALI [facility] Start: 04-03-2023 End: 04-03-2023 Evaluation and management of inpatient [facility] Start: 04-03-2023 End: 04-17-2023 Evaluation and management of inpatient [facility] Start: 04-03-2023 End: 04-17-2023 Evaluation and management of inpatient [facility] Start: 04-02-2023 End: 04-17-2023 [facility]: 04-02-[facility]23 End: 04-17-2023 Evaluation and management of inpatient ALIEDA SCHULTZ [facility] Start: 04-01-2023 End: 04-17-2023 Evaluation and management of inpatient [facility] Start: 04-01-2023 End: 04-17-2023 Evaluation and management of inpatient WILLARD KRUEGER [facility] Start: 04-01-2023 End: 04-17-2023 Evaluation and management of inpatient Willard Jess Pati [place] Work Phone: [facility] 8 Acute Start: 04-01-2023 ambulatory NITHYA BROWN [facility] Start: 02-21-2023 End: 02-21-2023 ambulatory Nithya Brown Other [employer] Other Start: 02-21-2023 Telephone encounter Nithya Brown [facility] Start: 01-14-2023 End: 01-14-2023 ambulatory Nithya Brown Other [employer] Other Start: 01-14-2023 Telephone encounter Nithya Brown [facility] Start: 11-27-2022 End: 11-27-2022 ambulatory Kate Mane Other [employer] Other Start: 11-27-2022 Office outpatient vi sit 15 minutes Kate Mane [facility] Start: 10-08-2022 End: 10-08-2022 ambulatory Kate Moultonashley Other [employer] Other Start: 10-08-2022 Telephone encounter Kate Mercado [employer] Start: 10-02-2022 End: 10-02-2022 ambulatory Kate Moultonashley Other [employer] Other Start: 10-02-2022 Office outpatient vi sit 15 minutes Kate Kenneyey [facility] Start: 09-07-2022 End: 09-07-2022 ambulatory Nithya Brown Other [employer] Other Start: 09-07-2022 Office outpatient vi sit 15 minutes Nithya Brown [facility] Start: 08-31-2022 Office outpatient vi sit 15 minutes Kate Calvey [facility] Start: 08-31-2022 End: 08-31-2022 ambulatory Kate R Teresa [employer] Other Start: 08-30-2022 End: 08-31-2022 ambulatory MD Leon Badillo Facility:[facility] Start: 07-20-2022 Postop follow up vis it related to original px Kate Calvey [facility] Start: 07-20-2022 End: 07-20-2022 ambulatory Kate R Calvey Facility:[facility] Start: 07-20-2022 End: 07-20-2022 ambulatory MD Nithya Brown Work Phone: [facility] Work Phone: Start: 07-20-2022 End: 07-20-2022 Patient encounter procedure MD Nithya Brown Work Phone: [facility] Start: 06-20-2022 End: 06-20-2022 ambulatory Kate R Teresa Facility:[facility] Start: 06-20-2022 End: 06-20-2022 Patient encounter procedure MD Nithya Brown Work Phone: [facility] Start: 06-20-2022 End: 06-20-2022 ambulatory MD Nithya Brown Work Phone: [facility] Work Phone: Start: 06-20-2022 Postop follow up vis it related to original px Kate Calvey [facility] Start: 06-15-2022 End: 06-16-2022 ambulatory MD Leon Badillo Facility:[facility] Start: 06-15-2022 End: 06-15-2022 Patient encounter procedure Leon Badillo [facility] Start: 06-04-2022 End: 06-05-2022 ambulatory MD Leon Badillo Facility:[facility] Start: 06-04-2022 End: 06-04-2022 Patient encounter procedure [facility] Joseph Badillo [facility] Start: 05-23-2022 End: 05-23-2022 ambulatory Kate R Calvey Facility:[facility] Start: 05-23-2022 End: 05-23-2022 Patient encounter procedure MD Nithya Brown Work Phone: [facility] Start: 05-23-2022 End: 05-23-2022 ambulatory MD Nithya Brown Work Phone: [facility] Work Phone: Start: 05-23-2022 Postop follow up vis it related to original px Kate Calvey [facility] Start: 05-14-2022 ambulatory KATE CALVEY Facility : Start: 05-09-2022 End: 05-09-2022 ambulatory Kate Calvey Other [employer] Other Start: 05-09-2022 Postop follow up vis it related to original px Kate Calvey [facility] Start: 05-01-2022 End: 05-01-2022 ambulatory Kate Calvey Other [employer] Other Start: 05-01-2022 Telephone encounter Kate Moultonashley [facility] Start: 05-01-2022 Encounter for other preprocedural examination GASTON FEROZ [facility] Start: 05-01-2022 Encounter for preprocedural cardiovascular examination GASTONMERE REDMAN [facility] Start: 05-01-2022 Encounter for preprocedural laboratory examination GASTONMERE REDMAN [facility] Start: 04-30-2022 Encounter for other preprocedural examination KATELYUBOV MANE [facility] Start: 04-30-2022 End: 04-30-2022 ambulatory Kate aMne Facility:[facility] Start: 04-30-2022 End: 04-30-2022 Admission to same day surgery center MD Nithya Brown Work Phone: [facility] [place] Start: 04-30-2022 End: 04-30-2022 ambulatory MD Nithya Brown Work Phone: [facility] Work Phone: Start: 04-27-2022 End: 04-28-2022 ambulatory KATE MANE Facility:[facility] Start: 04-27-2022 End: 04-28-2022 Encounter for other preprocedural examination KATE MANE Facility:[facility] Start: 04-27-2022 End: 04-27-[address] NITHYA BROWN Facility:[facility] Start: 04-25-2022 End: 04-26-[address] NITHYA BROWN Facility:[facility] Start: 04-23-2022 End: 04-23-2022 ambulatory Nithya Brown Other [employer] Other Start: 04-23-2022 Telephone encounter Nithya Brown [facility] Start: 04-16-2022 End: 04-17-[address] NITHYA BROWN Facility:[facility] Start: 04-10-2022 End: 04-10-2022 ambulatory Nithya Brown Other [employer] Other Start: 04-10-2022 Office outpatient vi sit 15 minutes Nithya Brown [facility] Start: 04-10-2022 Patient encounter procedure Nithya Brown [facility] Start: 09-15-2021 Adult health examination Tracie Mane Other [employer] Other Start: 08-03-2021 End: 08-04-[address] DOCTOR GOMEZ Facility: Start: 07-12-2021 End: 07-13-2021 Evaluation and management of inpatient LEON BADILLO Facility:[facility] Start: 06-06-2021 End: 06-07-[address] NITHYA BROWN Facility: Procedures Date Procedure Procedure Detail Performing Clinician Start: 04-17-2023 End: 04-17-2023 Comprehensive metabolic panel Ry De Anda MD Work Phone: Start: 04-16-2023 Gluc bld gluc mntr dev cleared fda spec home use Willard Krueger MD Work Phone: Start: 04-16-2023 Gluc bld gluc mntr dev cleared fda spec home use Willard Krueger MD Work Phone: Start: 04-16-2023 Gluc bld gluc mntr dev cleared fda spec home use Willard Krueger MD Work Phone: Start: 04-16-2023 Comprehensive metabolic panel Ry De Anda MD Work Phone: Start: 04-15-2023 Gluc bld gluc mntr dev cleared fda spec home use Willard Krueger MD Work Phone: Start: 04-15-2023 Gluc bld gluc mntr dev cleared fda spec home use Willard Krueger MD Work Phone: Start: 04-15-2023 Gluc bld gluc mntr dev cleared fda spec home use Willard Krueger MD Work Phone: Start: 04-15-2023 Comprehensive metabolic panel Ry De Anda MD Work Phone: Start: 04-15-2023 Gluc bld gluc mntr dev cleared fda spec home use Willard Krueger MD Work Phone: Start: 04-14-2023 Gluc bld gluc mntr dev cleared fda spec home use Willard Krueger MD Work Phone: Start: 04-14-2023 Gluc bld gluc mntr dev cleared fda spec home use Willard Krueger MD Work Phone: Start: 04-14-2023 Comprehensive metabolic panel Ry De Anda MD Work Phone: Start: 04-13-2023 OXYGEN THERAPY Won Webster MD Work Phone: Start: 04-13-2023 Comprehensive metabolic panel Ry De Anda MD Work Phone: Start: 04-13-2023 Electrolyte panel Haseeb Black CHILD WELFARE ASSISTANT-C [employer] RECLAIMER Work Phone: Start: 04-12-2023 OXYGEN THERAPY Won Webster MD Work Phone: Start: 04-12-2023 Electrolyte panel Haseeb Black CHILD WELFARE ASSISTANT-C [employer] Work Phone: Start: 04-12-2023 Electrolyte panel Haseeb Black CHILD WELFARE ASSISTANT-C [employer]ER Work Phone: Start: 04-12-2023 Blood count complete auto&auto difrntl wbc Willard Krueger MD Work Phone: Start: 04-12-2023 Comprehensive metabolic panel Ry De Anda MD Work Phone: Start: 04-12-2023 Ct angiography neck w/contrast/noncontrast Oksana Bal MD Work Phone: Start: 04-12-2023 Ct angiography head w/contrast/noncontrast Oksana Bal MD Work Phone: Start: 04-12-2023 Electrolyte panel Haseeb Black CHILD WELFARE ASSISTANT-C [employer] Work Phone: Start: 04-11-2023 Electrolyte panel Haseeb Black CHILD WELFARE ASSISTANT-C [employer]ER Work Phone: Start: 04-11-2023 End: 04-11-2023 Egd percutaneous placement gastrostomy tube Dae oB MD Work Phone: Start: 04-11-2023 Electrolyte panel Haseeb Mcnamara CHILD WELFARE ASSISTANT-C [employer] Work Phone: Start: 04-11-2023 ES EGD IMAGING Dae Bo MD Work Phone: Start: 04-11-2023 Radiologic exam chest single view Haseeb Mcnamara CHILD WELFARE ASSISTANT-STUDY LEAD Work Phone: Start: 04-11-2023 Electrolyte panel Haseeb Mcnamara CHILD WELFARE ASSISTANT-C [employer] Work Phone: Start: 04-11-2023 Comprehensive metabolic panel Ry De Anda MD Work Phone: Start: 04-10-2023 Electrolyte panel Haseeb Mcnamara CHILD WELFARE ASSISTANT-C [employer] Work Phone: Start: 04-10-2023 Antinuclear antibodies kay Angeles E Ara an CHILD WELFARE ASSISTANT-STUDY LEAD Work Phone: Start: 04-10-2023 Electrolyte panel Haseeb Mcnamara CHILD WELFARE ASSISTANT-C [employer] Work Phone: Start: 04-10-2023 Iaad ia hiv-1 ag w/hiv-1 & hiv-2 antbdy single Angeles E Ubaldo CHILD WELFARE ASSISTANT-STUDY LEAD Work Phone: Start: 04-10-2023 Antibody identification platelet antibodies Willard Krueger MD Work Phone: Start: 04-10-2023 Us abdominal real time w/image limited Chen Hinders CHILD WELFARE ASSISTANT-STUDY LEAD Work Phone: Start: 04-10-2023 Potassium serum plasma/whole blood Zay Chapa MD Work Phone: Start: 04-10-2023 Radiologic exam chest single view Mai Ho CHILD WELFARE ASSISTANT-STUDY LEAD Work Phone: Start: 04-10-2023 Comprehensive metabolic panel Ry De Anda MD Work Phone: Start: 04-10-2023 CLINICAL PATHOLOGY Willard Krueger MD Work Phone: Start: 04-09-2023 Fibrin dgradj products d-dimer quantitative Janet LAN Work Phone: Start: 04-09-2023 Assay of haptoglobin quantitative Chen Hinders CHILD WELFARE ASSISTANT-STUDY LEAD Work Phone: Start: 04-09-2023 Antihuman globulin direct each antiserum Chen Hinders CHILD WELFARE ASSISTANT-STUDY LEAD Work Phone: Start: 04-09-2023 CLINICAL PATHOLOGY BLOOD SMEAR REVIEW Chen Hinders CHILD WELFARE ASSISTANT-STUDY LEAD Work Phone: Start: 04-09-2023 Ct head/brain w/o contrast material Artemio Ray MD Work Phone: Start: 04-09-2023 Cyanocobalamin vitamin b-12 Mai riley CHILD WELFARE ASSISTANT-STUDY LEAD Work Phone: Start: 04-09-2023 Assay of magnesium Brandon Gooden CHILD WELFARE ASSISTANT -STUDY LEAD Work Phone: Start: 04-09-2023 Radiologic exam chest single view Zay Chapa MD Work Phone: Start: 04-09-2023 Radiologic exam chest single view Brandon Gooden CHILD WELFARE ASSISTANT-STUDY LEAD Work Phone: Start: 04-09-2023 Ecg routine ecg w/least 12 lds trcg only w/o i&r Zay Chapa MD Work Phone: Start: 04-09-2023 BRONCHOPULMONARY HYGIENE Christina Freitas DO Work Phone: Start: 04-09-2023 Comprehensive metabolic panel Ry De Anda MD Work Phone: Start: 04-08-2023 Sodium serum plasma or whole blood Brandon Gooden CHILD WELFARE ASSISTANT-STUDY LEAD Work Phone: Start: 04-08-2023 Sodium serum plasma or whole blood Brandon Gooden CHILD WELFARE ASSISTANT-STUDY LEAD Work Phone: Start: 04-08-2023 Potassium serum plasma/whole blood Zay Chapa MD Work Phone: Start: 04-08-2023 Radiologic exam chest single view Brandon Gooden CHILD WELFARE ASSISTANT-STUDY LEAD Work Phone: Start: 04-08-2023 Comprehensive metabolic panel Ry De Anda MD Work Phone: Start: 04-08-2023 BRONCHOPULMONARY HYGIENE Christina Fina h Swor DO Work Phone: Start: 04-07-2023 BRONCHOPULMONARY HYGIENE Christina Fina h Swor DO Work Phone: Start: 04-07-2023 BRONCHOPULMONARY HYGIENE Christina Fina h Swor DO Work Phone: Start: 04-07-2023 Gluc bld gluc mntr dev cleared fda spec home use Willard Krueger MD Work Phone: Start: 04-07-2023 BRONCHOPULMONARY HYGIENE Christina Fina h Swor DO Work Phone: Start: 04-07-2023 Radiologic exam chest single view Janet LAN Work Phone: Start: 04-07-2023 Comprehensive metabolic panel Ry De Anda MD Work Phone: Start: 04-07-2023 Blood gases any combination ph pco2 po2 co2 hco3 Willard Krueger MD Work Phone: Start: 04-07-2023 BRONCHOPULMONARY HYGIENE Christina Fina h Swor DO Work Phone: Start: 04-06-2023 BRONCHOPULMONARY HYGIENE Christina Fina h Swor DO Work Phone: Start: 04-06-2023 Ct head/brain w/o contrast material Artemio Ray MD Work Phone: Start: 04-06-2023 Ct angiography chest w/contrast/noncontrast Christina Leah Swor DO Work Phone: Start: 04-06-2023 BRONCHOPULMONARY HYGIENE Christina Fina h Swor DO Work Phone: Start: 04-06-2023 Blood gases any combination ph pco2 po2 co2 hco3 Willard Krueger MD Work Phone: Start: 04-06-2023 Radiologic exam chest single view Artemio Ray MD Work Phone: Start: 04-06-2023 Potassium serum plasma/whole blood Willard Krueger MD Work Phone: Start: 04-06-2023 Comprehensive metabolic panel Ry De Anda MD Work Phone: Start: 04-05-2023 BRONCHOPULMONARY HYGIENE Christina Fina h Swor DO Work Phone: Start: 04-05-2023 Radiologic exam chest single view Mohan De Anda MD Work Phone: Start: 04-05-2023 BRONCHOPULMONARY HYGIENE Christina Fina h Swor DO Work Phone: Start: 04-05-2023 Potassium serum plasma/whole blood Zay Chapa MD Work Phone: Start: 04-05-2023 Comprehensive metabolic panel Ry De Anda MD Work Phone: Start: 04-04-2023 Potassium serum plasma/whole blood Willard Krueger MD Work Phone: Start: 04-04-2023 Comprehensive metabolic panel Ry De Anda MD Work Phone: Start: 04-04-2023 BRONCHOPULMONARY HYGIENE Christina Fina h Swor DO Work Phone: Start: 04-03-2023 EEG VIDEO MONITORING Gopal Mays MD Work Phone: Start: 04-03-2023 DISCONTINUE IN PROCESS EEG TESTING Jordan Hassan MD Work Phone: Start: 04-03-2023 Echo tthrc r-t 2d w/wom-mode compl spec&colr d Ry De Anda MD Work Phone: Start: 04-03-2023 HC INFECTIOUS DISEASE RESP, DNA/RNA, 22 TARGETS INCLUDING SARSCOV2 Christina Leah Swor DO Work Phone: Start: 04-03-2023 Iadna s aureus methicillin resist amp probe tq Christina Freitas DO Work Phone: Start: 04-03-2023 Radiologic exam chest single view Mohan De Anda MD Work Phone: Start: 04-03-2023 BRONCHOPULMONARY HYGIENE Christina Harden h Zena DO Work Phone: Start: 04-03-2023 EEG VIDEO MONITORING IN PROGRESS Gopal Mays MD Work Phone: Start: 04-03-2023 Radiologic exam abdomen 1 view Ry De Anda MD Work Phone: Start: 04-03-2023 Comprehensive metabolic panel Ry De Anda MD Work Phone: Start: 04-03-2023 Ct head/brain w/o contrast material Gopal Mays MD Work Phone: Start: 04-02-2023 Potassium serum plasma/whole blood Jordan Hassan MD Work Phone: Start: 04-02-2023 EEG Gopal Mays MD Work Phone: Start: 04-02-2023 Potassium serum plasma/whole blood Jordan Hassan MD Work Phone: Start: 04-02-2023 Radiologic exam chest single view Jordan Hassan MD Work Phone: Start: 04-02-2023 Comprehensive metabolic panel Willard Krueger MD Work Phone: Start: 04-02-2023 Ct head/brain w/o contrast material Aleida Schultz CHILD WELFARE ASSISTANT-STUDY LEAD Work Phone: Start: 04-02-2023 Blood count complete auto&auto difrntl wbc Ry De Anda MD Work Phone: Start: 04-01-2023 Platelet aggregation in vitro each agent Jordan Hassan MD Work Phone: Start: 04-01-2023 Comprehensive metabolic panel Ry De Anda MD Work Phone: Start: 04-01-2023 Lipid panel Ry De Anda MD Work Phone: Start: 04-01-2023 Ct head/brain w/o contrast material Ry De Anda MD Work Phone: Start: 04-01-2023 Gluc bld gluc mntr dev cleared fda spec home use Willard Krueger MD Work Phone: Start: 07-20-2022 Plain X-ray of right wrist MD Nithya Prieto un Work Phone: Start: 06-20-2022 Plain X-ray of right wrist MD Nithya Prieto un Work Phone: Start: 05-23-2022 Plain X-ray of right wrist MD Nithya Prieto un Work Phone: Start: 04-30-2022 Plain X-ray of right wrist MD Nithya Prieto un Work Phone: Start: 04-30-2022 Open reduction of fracture with internal fixation MD Nithya Brown Work Phone: Start: 02-21-2016 Cataract Extraction with IOL placement - OD Leon Badillo Start: 02-09-2016 Screening mammography Kate Mane Other Start: 11-28-2012 General examination of patient Kate Mane Other Screening for malign ant neoplasm of breast Kate Mane Other Plan of Treatment Date Care Activity Detail Author Start: 04-17-2024 Adult BMI Screening Adult BMI Screening [facility] Start: 04-11-2024 Tobacco Screening Tobacco Screening [facility] Start: 05-23-2023 End: 05-23-2023 ambulatory [facility] Start: 05-23-2023 End: 05-23-2023 Patient encounter procedure 05/23/2023 1:30 PM EST Office Visit [facility] [address] [place] [id number] Marita Wu MD [address] [place] [address], [address] [place] [address] [facility] Start: 05-16-2023 End: 05-16-2023 ambulatory Debbiewestley Chin [facility]or[facility] Start: 05-16-2023 End: 05-16-2023 Patient encounter procedure 05/16/2023 10:30 AM EST Office Visit Debbie Webstern [facility] - Medical Oncology [address] [place] [address] Ugo Marie MD [facility] [address] [place] [address] Debbie Nam [facility] Start: 03-26-2023 Administration of varicella zoster vaccine Zoster (Shingles) Vaccine (2 of 2) [facility] Start: 04-30-2022 End: 04-30-2022 [facility] Start: 2008 Fall Risk Screening Fall Risk Screening [facility] Start: 1962 DTaP,Tdap and Td Vaccines (1 - Tdap) DTaP,Tdap and Td Vaccines (1 - Tdap) [facility] Start: 1961 Adult BMI Follow Up Plan Adult BMI Follow Up Plan [facility] Start: 1955 Depression Screening Depression Screening [facility] Start: 1943 Medicare Annual Wellness Visit Medicare Annual Wellness Visit [facility] Patient referral [facility] Work Phone: End: 04-08-2023 Potassium [Moles/volume] in Serum or Plasma [facility] Work Phone: Immunizations Immunization Date Immunization Notes Care Provider Fa cility 01-29-2023 zoster vaccine recombinant Willard Krueger MD Work Phone: [facility] 01-29-2023 zoster vaccine, unspecified formulation Scarlet Thomas RN [facility] 12-28-2022 Willard Krueger MD Work Phone: [facility] 01-15-2022 COVID-19 Pfizer (Pediatric) Kate Mane Other [facility] Other 01-15-2022 influenza virus vaccine, split virus (incl. purified surface antigen) Kate Mane Other [facility] Other 01-15-2022 Prevnar 20 Kate Mane Other [facility] Other 01-15-2022 Willard Krueger MD Work Phone: [employer] 03-09-2021 COVID-19 Vaccine Pfi zer - Documentation Purposes Only Kate Mane Other [facility] Other 01-26-2021 pneumococcal polysaccharide vaccine, 23 valent Kate Mane Other [facility] Other 01-13-2021 Willard Krueger MD Work Phone: [employer] 05-31-2020 COVID-19 Vaccine Pfi zer - Documentation Purposes Only Kate Mane Other [facility] Other 05-10-2020 COVID-19 Vaccine Pfi zer - Documentation Purposes Only Kate Mane Other [facility] Other 12-21-2018 influenza, high dose seasonal, preservative-free Willard Krueger MD Work Phone: [employer] 01-27-2018 influenza virus vaccine, split virus (incl. purified surface antigen) Kate Mane Other [facility] Other 01-27-2018 influenza, high dose seasonal, preservative-free Willard Krueger MD Work Phone: [employer] 01-27-2018 pneumococcal Conjuga te, unspecified formulation; Translations: [Need for prophylactic vaccination against Streptococcus pneumoniae (pneumococcus)] Kate Mane Other [facility] Other 01-27-2018 pneumococcal polysaccharide vaccine, 23 valent Kate Mane Other [employer] [facility] 02-09-2016 pneumococcal conjuga te vaccine, 13 valent Kate Kenneyashley Other [facility] Other 01-20-2016 Seasonal trivalent influenza vaccine, adjuvanted, preservative free Willard Krueger MD Work Phone: [employer] 12-22-2015 influenza virus vaccine, split virus (incl. purified surface antigen) Kate Mane Other [facility] Other 12-25-2014 influenza, high dose seasonal, preservative-free Willard Krueger MD Work Phone: [employer] 01-14-2014 tetanus and diphther ia toxoids, adsorbed, preservative free, for adult use (5 Lf of tetanus toxoid and 2 Lf of diphtheria toxoid) Katelyubov Mane Other [facility] Other 12-18-2012 tetanus and diphther ia toxoids, adsorbed, preservative free, for adult use (5 Lf of tetanus toxoid and 2 Lf of diphtheria toxoid) Kate Calvashley Other [facility] Other Payers Date Payer Category Payer Unknown [id number] 2022 Self-pay 2022 Unknown [id number] 2008 Medicare [id number] [id number] .[id number] 1959 Medicare [id number] 1959 Unknown [id number] 1943 Unknown [id number] 2.16.840.1.021184.3.579.2.647 1943 Unknown [id number] 2.16.840.1.903262.3.579.2.593 1943 Unknown [id number] 2.16.840.1.850142.3.579.2.593 1943 Unknown [id number] 2.16.840.1.633039.3.579.2.593 1943 Unknown [id number] 2.16.840.1.839432.3.579.2.593 1943 Unknown [id number] 2.16.840.1.153708.3.579.2.593 1943 Unknown [id number] 2.16.840.1.163285.3.579.2.593 1943 Unknown [id number] 2.16.840.1.636463.3.579.2.593 1943 Unknown [id number] 2.16.840.1.612837.3.579.2.727 1943 Unknown [id number] 2.16.840.1.860165.3.579.2.727 1943 Unknown [id number] 2.16.840.1.284839.3.579.2.727 1943 Unknown [id number] 2.16.840.1.286101.3.579.2.128 6 1943 Unknown [id number] 2.16.840.1.808052.3.579.2.128 6 1943 Unknown [id number] 2.16.840.1.367329.3.579.2.128 6 1943 Unknown [id number] 2.16.840.1.556731.3.579.2.128 6 1943 Unknown [id number] 2.16.840.1.495354.3.579.2.128 6 1943 Unknown [id number] 2.16.840.1.572233.3.579.2.128 6 1943 Unknown [id number] 2.16.840.1.045264.3.579.2.128 6 1943 Unknown [id number] 2.16.840.1.456623.3.579.2.128 6 1943 Unknown [id number] 2.16.840.1.607320.3.579.2.128 6 1943 Unknown [id number] 2.16.840.1.930859.3.579.2.128 6 1943 Unknown [id number] 2.16.840.1.091076.3.579.2.128 6 1943 Unknown [id number] 2.16.840.1.461329.3.579.2.128 6 1943 Unknown [id number] 2.16.840.1.109882.3.579.2.128 6 1943 Unknown [id number] 2.16.840.1.826470.3.579.2.128 6 1943 Unknown [id number] 2.16.840.1.924264.3.579.2.128 6 1943 Unknown [id number] 2.16.840.1.994033.3.579.2.128 6 1943 Unknown [id number] 2.16.840.1.491888.3.579.2.128 6 1943 Unknown [id number] 2.16.840.1.072900.3.579.2.128 6 1943 Unknown [id number] 2.16.840.1.369548.3.579.2.128 6 1943 Unknown [id number] 2.16.840.1.766237.3.579.2.128 6 1943 Unknown [id number] 2.16.840.1.349980.3.579.2.128 6 1943 Unknown [id number] 2.16.840.1.468736.3.579.2.128 6 1943 Unknown [id number] 2.16.840.1.837195.3.579.2.128 6 1943 Unknown [id number] 2.16.840.1.068725.3.579.2.128 6 1943 Unknown [id number] 2.16.840.1.940508.3.579.2.128 6 1943 Unknown [id number] 2.16.840.1.954278.3.579.2.128 6 1943 Unknown [id number] 2.16.840.1.118696.3.579.2.128 6 1943 Unknown [id number] 2.16.840.1.480221.3.579.2.128 6 1943 Unknown [id number] 2.16.840.1.652202.3.579.2.128 6 1943 Unknown [id number] 2.16.840.1.540205.3.579.2.128 6 1943 Unknown [id number] 2.16.840.1.952444.3.579.2.128 6 1943 Unknown [id number] 2.16.840.1.738160.3.579.2.128 6 1943 Unknown [id number] 2.16.840.1.381824.3.579.2.128 6 1943 Unknown [id number] 2.16.840.1.878636.3.579.2.128 6 Medicare Medicare Outpatient [id number] [id number] Unknown [employer] C o [id number] Unknown [id number] 2.16.840.1.009806.3.579.2.531 Unknown [id number] 2.16.840.1.217268.3.579.2.531 Unknown [id number] 2.16.840.1.239399.3.579.2.531 Unknown [id number] 2.16.840.1.458575.3.579.2.531 Unknown [id number] 2..840.1.151228.3.579.2.531 Social History Date Type Detail Facility Start: 04-30-2022 End: 04-02-2023 Tobacco smoking status MSIS Ex-smoker (finding) [facility] Start: 1945 Sex Assigned At Female [facility] Start: 05-19-2020 End: 04-11-2023 Sex Assigned At [facility] Tobacco smoking status Never [facility] History of tobacco use Current smoker [facility] Start: 04-02-2023 Tobacco use and exposure Smokeless tobacco non-user [facility] Start: 04-11-2023 Alcohol intake Current drinke r of alcohol (finding) [facility] Start: 05-19-2020 End: 04-11-2023 History of Social function [facility] Start: 04-02-2023 Tobacco Comment QUIT IN JUNE 2019 [facility] Start: 05-11-2019 Alcohol Comment SOMETIMES [facility] Start: 1945 Sex Assigned At [facility] Medical Equipment Procedure Code Equipment Code Equipment Origin al Text Equipment Identifier Dates ORIF, fracture, wrist Orthopaedic fixation plate, non-bioabsorbable, sterile ()[id number] FDA Start: 04-30-2022 ORIF, fracture, wrist Orthopaedic bone screw, non-bioabsorbable, non-sterile ()[id number] FDA Start: 04-30-2022 ORIF, fracture, wrist Orthopaedic bone wire ()[id number] FDA Start: 04-30-2022 ORIF, fracture, wrist Orthopaedic bone screw, non-bioabsorbable, non-sterile ()[id number] FDA Start: 04-30-2022 ORIF, fracture, wrist Orthopaedic bone screw, non-bioabsorbable, non-sterile ()[id number] FDA Start: 04-30-2022 ORIF, fracture, wrist Orthopaedic bone screw, non-bioabsorbable, non-sterile ()[id number] FDA Start: 04-30-2022 ORIF, fracture, wrist Orthopaedic bone screw, non-bioabsorbable, non-sterile ()[id number] FDA Start: 04-30-2022 Goals Date Patient Goal Desired Activity /State Personal health goal Comment on above: Formatting of this n ote might be different from the original. 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 Forwarded info to [facility] as well. Scheduled to see neurology in next 1-2 weeks. Continue PT/OT as able Apr, Thrombocytopenia (ICD-10 - D69.6) Hematology assessed at [facility] - followup as scheduled. Apr, Essential (primary) hypertension (ICD-10 - I10) Updated medication list. Will continue to monitor [facility] Other 01-10-2024 History of Present illness Narrative* Scarlet Thomas RN - 04/17/2023 3:19 PM EST Images from the original note were not included. MD Scarlet Munguia RN In 1-2 months. Previous Messages ----- Message ----- From: Scarlet Thomas RN Sent: 04/17/2023 2:04 PM EST To: Ugo Marie MD Subject: RE: D/C will need follow up When do you want to see this patient for follow up? ----- Message ----- From: Chen Lloyd APRN-SHAMEKA Sent: 04/12/2023 7:23 AM EST To: Ugo Marie MD; [facility] Onc Scheduling; * Subject: D/C will need follow up Good morning! Patient admitted for brain bleed, found to have persistent thrombocytopenia. Family indicated they believe she's always had low platelet count. Patient will need to follow up with Dr. 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 Thanks! [facility] Miscellaneous Notes* Discharge Planning Note - GAURAV Gandhi - 04/17/2023 8:59 AM EST Images from the original note were not included. DISCHARGE PLANNING NOTE VALERIE notified that transport was delayed last night and transport was rescheduled for 8am today and per PTN they are running behind and will be here about 930am to pick pt up and take to [facility]. VALERIE notified the facility , RN, and left msg with pt gómez/ASHVIN Celeste to inform of pt leaving this am. CRF was sent, HENS completed. BLS tx cert in dc packet. Update pt erikaanddtr called back and is aware of pt leaving today at 930am to [facility]. Services Requested: Services Requested Discharge Disposition: Non [facility] SNF Name: [facility] Fax Number: . [facility] Does the patient need discharge transportation arranged?: Yes Transportation Arranged: Ambulance Patient choice offered: Yes List Provided: Yes [facility] List Provided: Long Term Facility Initial DC Assessment Completed: Yes Patient Goals: Patient/Caregiver Goals Patient/Caregiver Goals: Long Term Care Skilled Nuring Care: Skilled Care (Short Term) Goals: Goals discharge (pt-stated) Evaluation of progress towards goal: to discharge to a [facility] facility for rehab - GAURAV Gandhi 04/17/23 9:01 AM * Discharge Planning Note - Alissa Cho - 04/17/2023 8:56 AM EST DISCHARGE PLANNING NOTE Per Elio claire [facility] PTN BLS is on their way and should be up the the floor within 30 min, about 9:25am. Epic chat sent to VALERIE Rogers. * Discharge Planning Note - GAURAV Gandhi - 04/16/2023 4:04 PM EST Images from the original note were not included. DISCHARGE PLANNING NOTE Krysta at [facility] has accepted pt. No auth needed. Pt will discharge today. Transport arranged for 5pm. Patient family, POA. RN, facility all aware. HENS completed. BLS tx cert in dc packet. Will fax CRF. SW asked RN to print CRF and place in packet once orders are completed. Services Requested: Services Requested Discharge Disposition: Non [facility] SNF Name: [facility]a cl[facility] Fax Number: . SNF Does the patient need discharge transportation arranged?: Yes Transportation Arranged: Ambulance Patient choice offered: Yes List Provided: Yes [facility] List Provided: Long Term Facility Initial DC Assessment Completed: Yes Patient Goals: Patient/Caregiver Goals Patient/Caregiver Goals: Long Term Care Skilled Nuring Care: Skilled Care (Short Term) Goals: Goals discharge (pt-stated) Evaluation of progress towards goal: to discharge to a [facility] facility for rehab - GAURAV Gandhi 04/16/23 4:05 PM * Plan of Care - Nicole Altamirano RN - 04/16/2023 1:47 PM EST Problem: Pain Goal: Patient goal is pain score less than 4, able to rest, and participant in treatment plan as appropriate Description: INTERVENTIONS: 1. Encourage patient or legal data entry representative to report early pain and ask for pain medicine when needed 2. Assess pain using appropriate pain scale and include the scale used when documenting 3. Administer analgesics based on type and severity of pain and evaluate response within appropriate time frame 4. Implement non-pharmacological measures as appropriate and evaluate response 5. Consider cultural and social influences on pain and pain management 6. Notify LIP if interventions ineffective or patient reports new pain 7. Monitor vital signs including pulse ox, end-tidal CO2 based on pain intervention 8. Reassess pain per policy 9. Teach patient or legal data entry representative interventions for comforting Outcome: Progressing Note: Evaluation of progress towards goal: pt will be free from pain, PRN meds available, will monitor for signs and symptoms of pain Problem: Safety Goal: Patient will be injury free during hospitalization Description: INTERVENTIONS: 1. Assess patient's risk for falls and implement fall prevention plan of care per policy 2. Provide and maintain a safe environment 3. Proper use of double Identifiers 4. Medication administration using the 5 rights 5. Hand hygiene 6. Specimens are labeled at the bedside 7. Instruct patient/ patient data entry representative about use of safety devices 8. Include patient/ patient data entry representative in decisions related to safety Note: Evaluation of progress towards goal: pt will remain dafe during this shift, safety measures in place, will monitor Problem: Moderate - High Risk Fall Score Description: [place] Fall Score of =/> 25 or indicated by [facility] Assessment Goal: Patient should be free from fall Description: Interventions: 1. Olds to environment 2. Hourly rounds addressing the 4 P's (Pain, Positioning, Possessions, Potty) 3. Clear area of hazards (spills, clutter, electrical cords, unnecessary equipment) 4. Place equipment (bed & TV controls, call light, phone, urinal) within reach 5. Encourage patient to wear glasses and hearing aides as appropriate 6. Maintain bed in lowest position 7. Lock wheels on bed/wheelchair 8. Provide adequate lighting, including night light 9. Assess need for additional bedding, food/fluids, pain med's prior to sleep/routinely 10. Provide gripper slippers or personal non-skid footwear 11. Teach patient and patient data entry representative to maintain environment for safety and engage in all aspects of fall prevention program 12. Remind patient to call for help before getting out of bed 13. Initiate bed/chair/exit alarms supportive devices as appropriate, (chair wedge, no-skid floor mat, raised edge mattress, hip protectors) 14. Locate patient bed assignment for optimal visualization 15. Evaluate and identify Safe Patient Handling Equipment needs 16. Provide supervision when out of bed or chair 17. Utilize gait belt as needed to assist with ambulation 18. Place adaptive equipment (cane, walker) within reach 19. Request patient data entry representative bring adaptive equipment/mobility aids from home or obtain and provide as needed 20. Consult pharmacy regarding effects of med's affecting mobility, cognition, and alternatives 21. Obtain physician order for PT if risk factors associated with mobility are present 22. Obtain physician order for OT as appropriate 23. Utilize diversional activities 24. Educate patient and patient data entry representative how to maintain a safe environment during visitationtimes (notify nurse prior to leaving bedside) 25. Consider appropriateness of medical or non-medical driver 26. Set up voiding schedule as appropriate (every 2 hours) Note: Evaluation of progress towards goal: pt will remain free from falls during this shift, call light within pt reach, staff will perform frequent rounding to assure pt safety * Discharge Planning Note - Alissa Cho - 04/16/2023 11:06 AM EST DISCHARGE PLANNING NOTE BLS transport via PTN to [facility] 04/16/23 at 5:00pm. Confirmed in [facility] * Plan of Care - Ethel Marshall RN - 04/16/2023 12:37 AM EST Problem: Pain Goal: Patient goal is pain score less than 4, able to rest, and participant in treatment plan as appropriate Description: INTERVENTIONS: 1. Encourage patient or legal data entry representative to report early pain and ask for pain medicine when needed 2. Assess pain using appropriate pain scale and include the scale used when documenting 3. Administer analgesics based on type and severity of pain and evaluate response within appropriate time frame 4. Implement non-pharmacological measures as appropriate and evaluate response 5. Consider cultural and social influences on pain and pain management 6. Notify LIP if interventions ineffective or patient reports new pain 7. Monitor vital signs including pulse ox, end-tidal CO2 based on pain intervention 8. Reassess pain per policy 9. Teach patient or legal data entry representative interventions for comforting Outcome: Progressing Note: Evaluation of progress towards goal: Patient encouraged to report pain occurrence, pain assessed using 0-10 pain scale, vital signs monitored. Pain controlled with PRN pain medications, pain reassessed. Will continue to monitor. Problem: Safety Goal: Patient will be injury free during hospitalization Description: INTERVENTIONS: 1. Assess patient's risk for falls and implement fall prevention plan of care per policy 2. Provide and maintain a safe environment 3. Proper use of double Identifiers 4. Medication administration using the 5 rights 5. Hand hygiene 6. Specimens are labeled at the bedside 7. Instruct patient/ patient data entry representative about use of safety devices 8. Include patient/ patient data entry representative in decisions related to safety Outcome: Progressing Note: Evaluation of progress towards goal: Pt remains injury free & Safety measures maintained throughout shift.Hourly rounding completed. [place] precautions followed. Problem: Moderate - High Risk Fall Score Description: [place] Fall Score of =/> 25 or indicated by [facility] Assessment Goal: Patient should be free from fall Description: Interventions: 1. Olds to environment 2. Hourly rounds addressing the 4 P's (Pain, Positioning, Possessions, Potty) 3. Clear area of hazards (spills, clutter, electrical cords, unnecessary equipment) 4. Place equipment (bed & TV controls, call light, phone, urinal) within reach 5. Encourage patient to wear glasses and hearing aides as appropriate 6. Maintain bed in lowest position 7. Lock wheels on bed/wheelchair 8. Provide adequate lighting, including night light 9. Assess need for additional bedding, food/fluids, pain med's prior to sleep/routinely 10. Provide gripper slippers or personal non-skid footwear 11. Teach patient and patient data entry representative to maintain environment for safety and engage in all aspects of fall prevention program 12. Remind patient to call for help before getting out of bed 13. Initiate bed/chair/exit alarms supportive devices as appropriate, (chair wedge, no-skid floor mat, raised edge mattress, hip protectors) 14. Locate patient bed assignment for optimal visualization 15. Evaluate and identify Safe Patient Handling Equipment needs 16. Provide supervision when out of bed or chair 17. Utilize gait belt as needed to assist with ambulation 18. Place adaptive equipment (cane, walker) within reach 19. Request patient data entry representative bring adaptive equipment/mobility aids from home or obtain and provide as needed 20. Consult pharmacy regarding effects of med's affecting mobility, cognition, and alternatives 21. Obtain physician order for PT if risk factors associated with mobility are present 22. Obtain physician order for OT as appropriate 23. Utilize diversional activities 24. Educate patient and patient data entry representative how to maintain a safe environment during visitationtimes (notify nurse prior to leaving bedside) 25. Consider appropriateness of medical or non-medical driver 26. Set up voiding schedule as appropriate (every 2 hours) Outcome: Progressing Note: Evaluation of progress towards goal: Pt has remained free of falls through this shift. bed locked and in lowest position, and fall risk band on. Will continue to assess needs hourly. * Plan of Care - Jose J López RN - 04/15/2023 7:43 PM EST Problem: Pain Goal: Patient goal is pain score less than 4, able to rest, and participant in treatment plan as appropriate Description: INTERVENTIONS: 1. Encourage patient or legal data entry representative to report early pain and ask for pain medicine when needed 2. Assess pain using appropriate pain scale and include the scale used when documenting 3. Administer analgesics based on type and severity of pain and evaluate response within appropriate time frame 4. Implement non-pharmacological measures as appropriate and evaluate response 5. Consider cultural and social influences on pain and pain management 6. Notify LIP if interventions ineffective or patient reports new pain 7. Monitor vital signs including pulse ox, end-tidal CO2 based on pain intervention 8. Reassess pain per policy 9. Teach patient or legal data entry representative interventions for comforting Outcome: Progressing Note: Evaluation of progress towards goal: Patient demonstrating pain. PRN pain medication provided. Relaxation encouraged. Emotional support given. Problem: Safety Goal: Patient will be injury free during hospitalization Description: INTERVENTIONS: 1. Assess patient's risk for falls and implement fall prevention plan of care per policy 2. Provide and maintain a safe environment 3. Proper use of double Identifiers 4. Medication administration using the 5 rights 5. Hand hygiene 6. Specimens are labeled at the bedside 7. Instruct patient/ patient data entry representative about use of safety devices 8. Include patient/ patient data entry representative in decisions related to safety Outcome: Progressing Note: Evaluation of progress towards goal: Patient free from falls and injury. Continue to monitor. Problem: Infection Goal: Absence of infection during hospitalization Description: Interventions: 1. Assess and monitor for signs and symptoms of infection 2. Monitor lab/diagnostic results 3. Monitor all insertion sites i.e., indwelling lines, tubes and drains 4. Monitor endotracheal (as able) and nasal secretions for changes in amount and color 5. Administer medications as ordered 6. Instruct and encourage patient and family to use good hand hygiene technique 7. Identify and instruct patient/patient data entry representative in use of appropriate isolation precautionsfor identified infection/symptoms 8. Provide and discuss with patient/patient data entry representative on educational MDRO sheet 9. Encourage and monitor nutritional status daily and consult commercial administrator if indicated 10. Implement neutropenic guidelines as needed 11. Review exposure to history of communicable disease and recent travel history on admission 12. Encourage annual influenza vaccine 13. Encourage pneumonia vaccine Outcome: Progressing Note: Evaluation of progress towards goal: Patient free from signs of infection. Afebrile. Continueto Monitor. Problem: Knowledge Deficit Goal: Patient/patient data entry representative demonstrates understanding of disease process, treatment plan,medications, and discharge instructions Description: INTERVENTIONS 1. Complete learning assessment and assess knowledge base 2. Provide teaching at level of understanding 3. Provide teaching via preferred learning method(s) Outcome: Progressing Note: Evaluation of progress towards goal: Plan of care reviewed. Patient data entry representative verbalizesunderstanding. Problem: Discharge Planning Goal: Discharge to post-acute care, other facility, or home with appropriate resources Description: Patient's goal is: INTERVENTIONS 1. Conduct assessment to determine patient/family and health care team treatment goals, and need for post-acute services based on payer coverage, community resources, and patient preferences, and barriers to discharge 2. Coordinate with Social work, Care Navigation, and Utilization Review to arrange appropriate level of services according to patient's needs based on patient preference and payer coverage in collaboration with the physician and health care team 3. Address psychosocial, clinical, and financial barriers to discharge as identified in assessment in conjunction with the patient/family and health care team 4. Consult appropriate ancillary services (i.e.. PT/OT/ST, etc) as needed 5. Communicate with and update the patient/family, physician, and health care team regarding progress on the discharge plan 6. Identify discharge learning needs (meds, wound care, etc). 7. Arrange for needed discharge transportation as appropriate Outcome: Progressing Note: Evaluation of progress towards goal: Discharge Plan Reviewed. Patient data entry representative verbalizes understanding. Problem: Potential for Compromised Skin Integrity Goal: Skin integrity is maintained or improved Description: Patient's goal is: INTERVENTIONS 1. Perform initial skin assessment on admission and as needed 2. Turn patient every 2 hours and PRN 3. Relieve pressure to bony prominences 4. Avoid shearing 5. Keep skin clean and dry 6. Alternate a full bath with partial baths for elderly 7. Encourage use of lotion/moisturizer on skin 8. Monitor patient's hygiene practices 9. Float heels 10. Collaborate with interdisciplinary team and initiate plans and interventions as needed Outcome: Progressing Note: Evaluation of progress towards goal: Patient free from skin breakdown. Continue to monitor. Goal: Patient's nutritional intake is adequate Description: Patient's goal is: INTERVENTIONS 1. Assess and monitor food intake and supplements, patient food preferences, nausea, vomiting, labs, oral cavity (gums, teeth, tongue, mucosa), proper denture fit, and cultural beliefs 2. Monitor for signs of hypoglycemia and hyperglycemia 3. Collaborate with interdisciplinary team and initiate plan and interventions as ordered 4. Monitor patient's weight 5. Assist patient with meals/food selection 6. Assist patient with eating 7. Allow adequate time for meals 8. Provide pleasant environment during mealtime 9. Increase social contact during mealtimes 10. Plan activities to conserve energy 11. Encourage/perform oral hygiene as appropriate 12. Encourage patient to take dietary supplement as ordered 13. Collaborate with clinical commercial administrator 14. Include patient/ patient's data entry representative in decisions related to nutrition Outcome: Progressing Note: Evaluation of progress towards goal: Nutritional intake is adequate. Continue to monitor. Problem: Urinary Incontinence Goal: Perineal skin integrity is maintained or improved Description: INTERVENTIONS 1. Assess genitourinary system, perineal skin, labs (urinalysis), and history of incontinence to include past management, aggravating, and alleviating factors 2. Keep skin clean and dry 3. Apply skin protectant 4. Develop skin care regimen 5. Provide privacy when changing patients incontinence device to maintain their dignity 6. Consider placing an indwelling catheter 7. Collaborate with interdisciplinary team and initiate plans and interventions as needed Outcome: Progressing Note: Evaluation of progress towards goal: ,\Patient free from skin breakdown. Continue to monitor. Problem: Moderate - High Risk Fall Score Description: [place] Fall Score of =/> 25 or indicated by [facility] Assessment Goal: Patient should be free from fall Description: Interventions: 1. Olds to environment 2. Hourly rounds addressing the 4 P's (Pain, Positioning, Possessions, Potty) 3. Clear area of hazards (spills, clutter, electrical cords, unnecessary equipment) 4. Place equipment (bed & TV controls, call light, phone, urinal) within reach 5. Encourage patient to wear glasses and hearing aides as appropriate 6. Maintain bed in lowest position 7. Lock wheels on bed/wheelchair 8. Provide adequate lighting, including night light 9. Assess need for additional bedding, food/fluids, pain med's prior to sleep/routinely 10. Provide gripper slippers or personal non-skid footwear 11. Teach patient and patient data entry representative to maintain environment for safety and engage in all aspects of fall prevention program 12. Remind patient to call for help before getting out of bed 13. Initiate bed/chair/exit alarms supportive devices as appropriate, (chair wedge, no-skid floor mat, raised edge mattress, hip protectors) 14. Locate patient bed assignment for optimal visualization 15. Evaluate and identify Safe Patient Handling Equipment needs 16. Provide supervision when out of bed or chair 17. Utilize gait belt as needed to assist with ambulation 18. Place adaptive equipment (cane, walker) within reach 19. Request patient data entry representative bring adaptive equipment/mobility aids from home or obtain and provide as needed 20. Consult pharmacy regarding effects of med's affecting mobility, cognition, and alternatives 21. Obtain physician order for PT if risk factors associated with mobility are present 22. Obtain physician order for OT as appropriate 23. Utilize diversional activities 24. Educate patient and patient data entry representative how to maintain a safe environment during visitationtimes (notify nurse prior to leaving bedside) 25. Consider appropriateness of medical or non-medical driver 26. Set up voiding schedule as appropriate (every 2 hours) Outcome: Progressing Note: Evaluation of progress towards goal: Patient free from falls and injury. Continue to monitor. Problem: Neurological Deficit Goal: Neurological status is stable or improving Description: Patient's goal is: INTERVENTIONS 1. Complete Neurological assessment as indicated/ordered 2. Initiate measures to prevent increased intracranial pressure 3. Monitor and assess patient's level of consciousness, motor function, sensory function, and levelof assistance needed for ADLs 4. Monitor and report changes from baseline 5. Maintain blood pressure and fluid volume within ordered parameters to optimize cerebral perfusion and minimize risk of hemorrhage 6. Monitor labs and diagnostic tests 7. Administer anti-seizure medications as ordered 8. Maintain airway, patient safety and administer oxygen as ordered 9. Monitor patient for seizure activity, document and report duration and description of seizure toLIP 10. If seizure occurs, turn patient to side and suction secretions as needed 11. Reorient patient post seizure 12. Seizure pads on all 4 side rails 13. Instruct patient/family to notify RN of any seizure activity 14. Instruct patient/family to call for assistance with activity based on assessment 15. Utilize bleeding precautions if thrombolytic given Outcome: Progressing Note: Evaluation of progress towards goal: Patient's neurological status is stable. Continue to monitor. Problem: Activity Intolerance/Impaired Mobility Goal: Mobility/activity is maintained at optimum level for patient Description: Patient's goal is: INTERVENTIONS 1. Assess and monitor patient barriers to mobility and need for assistive/adaptive devices 2. Assess patient's emotional response to limitations 3. Collaborate with interdisciplinary teams and initiate plans and interventions as ordered 4. Encourage independent activity per tolerance 5. Maintain proper body alignment 6. Perform active/passive ROM as tolerated/ordered 7. Coordinate activities to conserve energy 8. Reposition patient 9. Ensure adequate rest/sleep time Outcome: Progressing Note: Evaluation of progress towards goal: Patient's mobility/activity is maintained at optimal level. Continue to encourage, assist with, and monitor activity per ability. Problem: Communication Impairment Goal: Ability to express needs and understand communication Description: INTERVENTIONS 1. Assess patient's communication skills and ability to understand information 2. Provide alternate method of communication if needed i.e. ipad, sign board, pen/paper 3. Collaborate with Speech Therapy to develop effective communication strategies 4. Include patient/patient data entry representative in decisions related to communication Outcome: Not Progressing Note: Evaluation of progress towards goal: Patient is not able to express needs or understand communication. Continue to monitor. Problem: Potential for Aspiration Goal: Patient's risk of aspiration is minimized Description: INTERVENTIONS 1. Assess and monitor vital signs, respiratory status, and labs (WBC) 2. Monitor for signs of aspiration (tachypnea, cough, rales, wheezing, cyanosis, fever) 3. Assess and monitor patient's ability to swallow 4. Place patient up in chair to eat if possible 5. Elevate head of bed 90 degrees to eat if unable to get patient up into chair 6. Supervise patient during oral intake 7. Instruct patient to take small bites 8. Instruct patient to take small single sips when taking liquids 9. Follow patient-specific strategies generated by speech pathologist 10. Complete bedside swallow screen if appropriate and take actions as indicated. 11. Administer prescribed medications and monitor effects Outcome: Progressing Note: Evaluation of progress towards goal: Patient's risk for aspiration is minimized. Aspiration precautions are in place. Continue to monitor. Problem: Self Care Deficit Goal: Return ADL status to a safe level of function Description: Patient's goal is: INTERVENTIONS 1. Administer medication as ordered 2. Assess ADL deficits and provide assistive devices as needed 3. Obtain PT/OT consults as needed 4. Assist and instruct patient to increase activity and self care as tolerated Outcome: Not Progressing Note: Evaluation of progress towards goal: Patient's ADL status is not at a safe level of function.Continue to monitor. Problem: Safety - Medical Restraint Goal: Free from restraint(s) (Restraint for Interference with Um Nurse) Description: INTERVENTIONS: 1. ONCE/SHIFT or MINIMUM Q12H: Assess and document the continuing need for restraints 2. Order is valid for the duration of the episode of care 3. Discontinue at the earliest possible time once the reason for restraints no longer exists 4. Identify and implement measures to help patient regain control 5. Food, fluids, and toilet offered at a minimum of every 2 hours 6. RN modifies the patient's plan of care by entering a problem statement related to safety; individualizes the safety outcome Outcome: Progressing Note: Evaluation of progress towards goal: Patient remains free from restraints. Continue to monitor. Problem: Multi-Drug Resistant Organism / Rule-Out Infection Prevention Goal: Prevent transmission of infection Description: INTERVENTIONS 1. Place patient in private room or in room with patient with same disease 2. Discard single-use items 3. Clean reusable equipment between patients 4. Wear gloves for direct and indirect contact with patient or contaminants 5. Change gloves between tasks and procedures 6. Wash hands before and after caring for each patient 7. Wear appropriate personal protective equipment in relation to the indicated isolation type 8. Place appropriate isolation signage on patient's door 9. Provide patient/ patient data entry representative with isolation education. Outcome: Progressing Note: Evaluation of progress towards goal: Patient free from signs of infection. Afebrile. Continueto Monitor. * Discharge Planning Note - Sabina Turk - 04/15/2023 12:41 PM EST DISCHARGE PLANNING NOTE Referral sent to [facility] (P# ; F# ) * Discharge Planning Note - GAURAV Gandhi - 04/15/2023 10:40 AM EST DISCHARGE PLANNING NOTE Discussed pt during DTR's. DC plan SNF: referral to [facility] per family request. Awaiting acceptance. Family states they do not want [facility] now. SW did leave msg with pt gómez Celeste who is POA to confirm final SNF choice. No auth needed. [place] need BLS transport at [place]. SW to follow Update: SW received call from pt gómez Celeste who is POA and she states she would like patient to go to [facility] not [facility]. SW updated grandtr that [facility] has accepted pt andwe are looking at likely dc tomorrow. Grandtr agreeable to plan. Update : gómez Celeste called back and now states she was told that [facility] has covid patients and they now would like the [facility], referral sent, awaiting acceptance with [facility]. - GAURAV Gandhi 04/15/23 10:41 AM * Discharge Planning Note - Sandy Ackerman - 04/15/2023 9:49 AM EST DISCHARGE PLANNING NOTE Clinical updates sent to [facility] (P#: ; F#: ) * PT/OT/PIPE BENDER - Mena Pleitez PTA - 04/15/2023 9:37 AM EST Physical Therapy Treatment Discharge Recommendations PT Recommendations: Long Term Facility 6 Clicks: Basic Mobility Turning from your back to your side while in a flat bed without using bed rails?: Total Moving from lying on your back to sitting on side of flat bed without using bed rails?: Total Moving to and from bed to a chair (including w/c)?: Total Standing up from a chair using your arms (e.g. w/c or bedside chair)?: Total To walk in hospital room?: Total Climbing 3-5 steps with a railing?: Total Scoring 6 Clicks: Basic Mobility Raw Score: 6 CMS G Code Modifier: CN PT Treatment/Interventions: Functional transfer training, LE strengthening/ROM, Patient/family training, Equipment eval/education, Cognitive reorientation, Balance, Bed mobility PT Frequency: 4-5days/week (2 person assist) Patient Response to Treatment: No functional improvements Assessment Patient Assessment Patient Response to Treatment: No functional improvements Visit RN Communication: Yes Medical Record Reviewed: Yes PT Type of Visit: Treatment Precautions Activity: ok for therapy per RN Hemal Equipment: PEG feeding tube, O2, larios, abdominal binder, maxi sophia lift Telemetry/Residential Aide: Yes Oxygen Used: 2L O2 Other: high fall risk, R hemiparesis, non-verbal Pain Assessment Pain Assessment: (no indication of pain throughout tx) Hearing / Speech / Vision Hearing: Within Functional Limits Speech: Expressive aphasia, Receptive aphasia Cognition Arousal/Alertness: Lethargic Other: pt not following commands - very lethargic - eyes closed majority of the time Bed Mobility Rolling: Total assist, Right, Left Supine to Sit: Total assist Sit to Supine: Total assist Other: rolling R and L for pericare and brief change. Pt squirms around in bed - not safe to leave in b/s chair. Maxi sophia lift used to reposition pt toward HOB. Left pt positioned with wedge and pillows. Visitors entered room at end of tx. Balance Sitting Balance: Static: Poor Other: pt sat EOB 9 mins working on balance and ADL task - pt with decreased engagement in tasks today - MIN to MAX assist to maintain midline Activity Tolerance Endurance: Tolerates <30 minutes activity WITHOUT vital sign changes Plan Physical Therapy Care Plan Physical Therapy Care Plan (Active) Template: PT - Physical Therapy Problem: Activity Tolerance Dates: Start: 04/04/23 Disciplines: PT Goal: Tolerate 30 minutes of activity WITH rest breaks Dates: Start: 04/04/23 Expected End: 05/03/23 Description: Goal Description: for supine, seated and supported standing activities for improved mobility Disciplines: PT Outcomes Date/Time User Outcome 04/15/23 0936 Mena Pleitez PTA Not Progressing 04/12/23 0939 Mena Pleitez PTA Not Progressing Problem: Bed Mobility Dates: Start: 04/04/23 Disciplines: PT Goal: Patient will perform bed mobility with Minimum Assist Dates: Start: 04/04/23 Expected End: 05/03/23 Description: Goal Description: Disciplines: PT Outcomes Date/Time User Outcome 04/15/23 0936 Mena Pleitez, REHABILITATION CENTER MANAGER Not Progressing 04/12/23 0939 Mena Pleitez, REHABILITATION CENTER MANAGER Not Progressing Problem: Sitting Balance Dates: Start: 04/04/23 Disciplines: PT Goal: Improve balance to good Dates: Start: 04/04/23 Expected End: 05/03/23 Description: Static Dynamic with UE support for safe ADLs and transfers Disciplines: PT Outcomes Date/Time User Outcome 04/15/23 0936 Mena Pleitez, REHABILITATION CENTER MANAGER Not Progressing 04/12/23 0939 Mena Pleitez, REHABILITATION CENTER MANAGER Progressing Problem: Standing Balance Dates: Start: 04/04/23 Disciplines: PT Goal: Improve balance to fair Dates: Start: 04/04/23 Expected End: 05/03/23 Description: Static Dynamic with UE support/SPH equipment for safe transfers Disciplines: PT Problem: Strength Dates: Start: 04/04/23 Disciplines: PT Goal: Improve strength Dates: Start: 04/04/23 Expected End: 05/03/23 Description: Of extremity/ location: R LE to 3+/5 or greater To facilitate: mobility Disciplines: PT Outcomes Date/Time User Outcome 04/15/23 0936 Mena Pleitez, REHABILITATION CENTER MANAGER Not Progressing 04/12/23 0939 Mena Pleitez, REHABILITATION CENTER MANAGER Not Progressing Problem: Transfers Dates: Start: 04/04/23 Disciplines: PT Goal: Patient will perform transfers with Moderate Assist Dates: Start: 04/04/23 Expected End: 05/03/23 Description: Goal Description: sit to stand with SPH equipment/UE support Disciplines: PT Physical Therapy Care Plan (Resolved) There are no resolved problems. 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 * PT/OT/PIPE BENDER - MARISOL Douglas - 04/15/2023 9:34 AM EST Occupational Therapy Treatment Discharge Recommendations OT Recommendations : Long Term Facility 6 Clicks: Daily Activity Putting on and taking off regular lower body clothing?: Total Bathing (including washing, rinsing, drying)?: Total Toileting, which includes using toilet, bedpan or urinal?: Total Putting on and taking off regular upper body clothing?: Total Taking care of personal grooming such as brushing teeth?: Total Eating meals?: Total Scoring Daily Activity Raw Score: 6 CMS G Code Modifier: CN Therapy Plan Need for skilled Occupational Therapy to address deficits in ADL independence and functional mobility due to a status decline resulting from 04/15/23 0829 UE ROM UE ROM exercises performed? No (focused on ADL's) OT Treatment/Interventions: ADL retraining, Functional transfer training, UE strengthening/ROM, Endurance training, Patient/family training, Equipment eval/education, Balance, Bed mobility, Compensatory technique education, Functional activities, Neuromuscular reeducation OT Frequency: 4-5days/week Assessment Patient Assessment Patient Response to Treatment: No functional improvements Visit RN Communication: Yes Medical Record Reviewed: Yes OT Type of Visit: Treatment Precautions Activity: ok for therapy per RN Hemal Equipment: peg, abdominal binder, larios, bed alarm, repositioning sling, maxi sophia, Telemetry/Residential Aide: Yes Oxygen Used: 2L Other: high fall risk, R hemiparesis, non-verbal Pain Assessment Pain Assessment: (no indication of pain during tx; pt is non verbal) ADL / IADL Where Assessed: Edge of bed, Supine, bed Grooming Assistance: Setup, Total assist Grooming Deficit: Oral hygiene (pt grabbed toothbrush to assist w/brushing teeth briefly, otherwisept total A w/grooming tasks) Toilet/Commode Assistance: Total assist (for hygiene and brief change; required much increased timed/t amount of stood and pt had hand in stood and was touching face, mouth and other areas) UE Dressing Assistance: Total assist (to don/doff gown) Hearing / Speech / Vision Hearing: Within Functional Limits Speech: Expressive aphasia, Receptive aphasia Cognition Overall Cognitive Status: Exceptions to Within Functional Limits Arousal/Alertness: Lethargic Following Commands: (not folowing cues) Bed Mobility Rolling: Total assist, Right, Left (completed 2xs per side for clean up) Supine to Sit: Total assist Sit to Supine: Total assist Other: use of maxi sophia to position pt for comfort after tx Balance Sitting Balance: Static: Poor Other: sat at EOB about 9mins to increase endurance, trunk control and participation, required mod to max A to maintain sitting balance Activity Tolerance Endurance: Tolerates <30 minutes activity WITHOUT vital sign changes Plan Occupational Therapy Care Plan Occupational Therapy Care Plan (Active) Template: OT - Occupational Therapy Problem: Activity Tolerance Dates: Start: 04/04/23 Disciplines: OT Goal: Tolerate > 30 minutes of activity WITH rest breaks Dates: Start: 04/04/23 Expected End: 05/02/23 Description: Goal Description: Disciplines: OT Outcomes Date/Time User Outcome 04/15/23923 Key Pedraza-Arredondo, JULIO/L Not Progressing 04/12/23930 Key Pedraza-Arredondo, TREKKING GUIDE/L Progressing Problem: Bed Mobility Dates: Start: 04/04/23 Disciplines: OT Goal: Patient will perform bed mobility with Minimum Assist Dates: Start: 04/04/23 Expected End: 05/02/23 Description: Goal Description: Disciplines: OT Outcomes Date/Time User Outcome 04/15/23923 Key Pedraza-Arredondo, TREKKING GUIDE/L Not Progressing 04/12/23930 Key Pedraza-Arredondo, JULIO/L Not Progressing Problem: Other (Customize) Dates: Start: 04/04/23 Disciplines: OT Goal: Improve Dates: Start: 04/04/23 Expected End: 05/02/23 Description: Goal Description: improve assist with self care to Mod A or less Disciplines: OT Outcomes Date/Time User Outcome 04/15/23923 Key Pedraza-Arredondo, JULIO/L Not Progressing 04/12/2331 Key Pedraza-Arredondo, TREKKING GUIDE/L Progressing Problem: ROM Dates: Start: 04/04/23 Disciplines: OT Goal: Improve ROM Dates: Start: 04/04/23 Expected End: 05/02/23 Description: Of extremity/ location: RUE as able A/AA/PROM all joints to end range of motion To facilitate: improve assist with self care and mobility tasks Disciplines: OT Outcomes Date/Time User Outcome 04/15/23923 Key Pedraza-Arredondo, JULIO/L Not Progressing 04/12/2331 Key Pedraza-Arredondo, TREKKING GUIDE/L Not Progressing Problem: Sitting Balance Dates: Start: 04/04/23 Disciplines: OT Goal: Improve balance to good Dates: Start: 04/04/23 Expected End: 05/02/23 Description: Static Dynamic Disciplines: OT Outcomes Date/Time User Outcome 04/15/2324 Key Pedraza-Arredondo, JULIO/L Not Progressing 04/12/2331 Key Pedraza-Arredondo, TREKKING GUIDE/L Progressing Problem: Standing Balance Dates: Start: 04/04/23 Disciplines: OT Goal: Improve balance to fair Dates: Start: 04/04/23 Expected End: 05/02/23 Description: Static Dynamic Disciplines: OT Problem: Strength Dates: Start: 04/04/23 Disciplines: OT Goal: Improve strength Dates: Start: 04/04/23 Expected End: 05/02/23 Description: Of extremity/ location: improve RUE as able from 0/5 To facilitate: improve assist with self care and mobility Disciplines: OT Problem: Toilet Transfers Dates: Start: 04/04/23 Disciplines: OT Goal: Patient will perform toilet transfers with Minimum Assist Dates: Start: 04/04/23 Expected End: 05/02/23 Description: Goal Description: Disciplines: OT Problem: Transfers Dates: Start: 04/04/23 Disciplines: OT Goal: Patient will perform transfers with Minimum Assist Dates: Start: 04/04/23 Expected End: 05/02/23 Description: Goal Description: Disciplines: OT Occupational Therapy Care Plan (Resolved) There are no resolved problems. Principal Problem: 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[facility]) Associated attestation - Antolin Rodriguez OTR/L - 04/15/2023 3:13 PM EST I have reviewed and agree with this note and education documentation for this visit. * Plan of Care - Itzel Meredith RN - 04/14/2023 9:55 PM EST Problem: Pain Goal: Patient goal is pain score less than 4, able to rest, and participant in treatment plan as appropriate Description: INTERVENTIONS: 1. Encourage patient or legal data entry representative to report early pain and ask for pain medicine when needed 2. Assess pain using appropriate pain scale and include the scale used when documenting 3. Administer analgesics based on type and severity of pain and evaluate response within appropriate time frame 4. Implement non-pharmacological measures as appropriate and evaluate response 5. Consider cultural and social influences on pain and pain management 6. Notify LIP if interventions ineffective or patient reports new pain 7. Monitor vital signs including pulse ox, end-tidal CO2 based on pain intervention 8. Reassess pain per policy 9. Teach patient or legal data entry representative interventions for comforting Outcome: Progressing Note: Evaluation of progress towards goal: Patient appears comfortable, FLACC neg Problem: Safety Goal: Patient will be injury free during hospitalization Description: INTERVENTIONS: 1. Assess patient's risk for falls and implement fall prevention plan of care per policy 2. Provide and maintain a safe environment 3. Proper use of double Identifiers 4. Medication administration using the 5 rights 5. Hand hygiene 6. Specimens are labeled at the bedside 7. Instruct patient/ patient data entry representative about use of safety devices 8. Include patient/ patient data entry representative in decisions related to safety Outcome: Progressing Note: Evaluation of progress towards goal: Bed locked in lowest position, call light within reach, non slip footwear in place, patient verbalizes understanding Problem: Infection Goal: Absence of infection during hospitalization Description: Interventions: 1. Assess and monitor for signs and symptoms of infection 2. Monitor lab/diagnostic results 3. Monitor all insertion sites i.e., indwelling lines, tubes and drains 4. Monitor endotracheal (as able) and nasal secretions for changes in amount and color 5. Administer medications as ordered 6. Instruct and encourage patient and family to use good hand hygiene technique 7. Identify and instruct patient/patient data entry representative in use of appropriate isolation precautionsfor identified infection/symptoms 8. Provide and discuss with patient/patient data entry representative on educational MDRO sheet 9. Encourage and monitor nutritional status daily and consult commercial administrator if indicated 10. Implement neutropenic guidelines as needed 11. Review exposure to history of communicable disease and recent travel history on admission 12. Encourage annual influenza vaccine 13. Encourage pneumonia vaccine Outcome: Progressing Note: Evaluation of progress towards goal: Normal WBC, afebrile, VSS, no infection present Problem: Urinary Incontinence Goal: Perineal skin integrity is maintained or improved Description: INTERVENTIONS 1. Assess genitourinary system, perineal skin, labs (urinalysis), and history of incontinence to include past management, aggravating, and alleviating factors 2. Keep skin clean and dry 3. Apply skin protectant 4. Develop skin care regimen 5. Provide privacy when changing patients incontinence device to maintain their dignity 6. Consider placing an indwelling catheter 7. Collaborate with interdisciplinary team and initiate plans and interventions as needed Outcome: Progressing Note: Evaluation of progress towards goal: Skin remains intact, skin precautions in place, no breakdown noted Problem: Moderate - High Risk Fall Score Description: [place] Fall Score of =/> 25 or indicated by [facility] Assessment Goal: Patient should be free from fall Description: Interventions: 1. Olds to environment 2. Hourly rounds addressing the 4 P's (Pain, Positioning, Possessions, Potty) 3. Clear area of hazards (spills, clutter, electrical cords, unnecessary equipment) 4. Place equipment (bed & TV controls, call light, phone, urinal) within reach 5. Encourage patient to wear glasses and hearing aides as appropriate 6. Maintain bed in lowest position 7. Lock wheels on bed/wheelchair 8. Provide adequate lighting, including night light 9. Assess need for additional bedding, food/fluids, pain med's prior to sleep/routinely 10. Provide gripper slippers or personal non-skid footwear 11. Teach patient and patient data entry representative to maintain environment for safety and engage in all aspects of fall prevention program 12. Remind patient to call for help before getting out of bed 13. Initiate bed/chair/exit alarms supportive devices as appropriate, (chair wedge, no-skid floor mat, raised edge mattress, hip protectors) 14. Locate patient bed assignment for optimal visualization 15. Evaluate and identify Safe Patient Handling Equipment needs 16. Provide supervision when out of bed or chair 17. Utilize gait belt as needed to assist with ambulation 18. Place adaptive equipment (cane, walker) within reach 19. Request patient data entry representative bring adaptive equipment/mobility aids from home or obtain and provide as needed 20. Consult pharmacy regarding effects of med's affecting mobility, cognition, and alternatives 21. Obtain physician order for PT if risk factors associated with mobility are present 22. Obtain physician order for OT as appropriate 23. Utilize diversional activities 24. Educate patient and patient data entry representative how to maintain a safe environment during visitationtimes (notify nurse prior to leaving bedside) 25. Consider appropriateness of medical or non-medical driver 26. Set up voiding schedule as appropriate (every 2 hours) Outcome: Progressing Note: Evaluation of progress towards goal: Bed locked in lowest position, call light within reach, non slip footwear in place, patient verbalizes understanding * Plan of Care - Jose J López RN - 04/14/2023 5:01 PM EST Problem: Pain Goal: Patient goal is pain score less than 4, able to rest, and participant in treatment plan as appropriate Description: INTERVENTIONS: 1. Encourage patient or legal data entry representative to report early pain and ask for pain medicine when needed 2. Assess pain using appropriate pain scale and include the scale used when documenting 3. Administer analgesics based on type and severity of pain and evaluate response within appropriate time frame 4. Implement non-pharmacological measures as appropriate and evaluate response 5. Consider cultural and social influences on pain and pain management 6. Notify LIP if interventions ineffective or patient reports new pain 7. Monitor vital signs including pulse ox, end-tidal CO2 based on pain intervention 8. Reassess pain per policy 9. Teach patient or legal data entry representative interventions for comforting Outcome: Progressing Note: Evaluation of progress towards goal: Patient demonstrating pain. PRN pain medication provided. Relaxation encouraged. Emotional support given. Problem: Safety Goal: Patient will be injury free during hospitalization Description: INTERVENTIONS: 1. Assess patient's risk for falls and implement fall prevention plan of care per policy 2. Provide and maintain a safe environment 3. Proper use of double Identifiers 4. Medication administration using the 5 rights 5. Hand hygiene 6. Specimens are labeled at the bedside 7. Instruct patient/ patient data entry representative about use of safety devices 8. Include patient/ patient data entry representative in decisions related to safety Outcome: Progressing Note: Evaluation of progress towards goal: Patient free from falls and injury. Continue to monitor. Problem: Infection Goal: Absence of infection during hospitalization Description: Interventions: 1. Assess and monitor for signs and symptoms of infection 2. Monitor lab/diagnostic results 3. Monitor all insertion sites i.e., indwelling lines, tubes and drains 4. Monitor endotracheal (as able) and nasal secretions for changes in amount and color 5. Administer medications as ordered 6. Instruct and encourage patient and family to use good hand hygiene technique 7. Identify and instruct patient/patient data entry representative in use of appropriate isolation precautionsfor identified infection/symptoms 8. Provide and discuss with patient/patient data entry representative on educational MDRO sheet 9. Encourage and monitor nutritional status daily and consult commercial administrator if indicated 10. Implement neutropenic guidelines as needed 11. Review exposure to history of communicable disease and recent travel history on admission 12. Encourage annual influenza vaccine 13. Encourage pneumonia vaccine Outcome: Progressing Note: Evaluation of progress towards goal: Patient free from signs of infection. Afebrile. Continueto Monitor. Problem: Knowledge Deficit Goal: Patient/patient data entry representative demonstrates understanding of disease process, treatment plan,medications, and discharge instructions Description: INTERVENTIONS 1. Complete learning assessment and assess knowledge base 2. Provide teaching at level of understanding 3. Provide teaching via preferred learning method(s) Outcome: Progressing Note: Evaluation of progress towards goal: Plan of care reviewed. Patient data entry representative verbalizesunderstanding. Problem: Discharge Planning Goal: Discharge to post-acute care, other facility, or home with appropriate resources Description: Patient's goal is: INTERVENTIONS 1. Conduct assessment to determine patient/family and health care team treatment goals, and need for post-acute services based on payer coverage, community resources, and patient preferences, and barriers to discharge 2. Coordinate with Social work, Care Navigation, and Utilization Review to arrange appropriate level of services according to patient's needs based on patient preference and payer coverage in collaboration with the physician and health care team 3. Address psychosocial, clinical, and financial barriers to discharge as identified in assessment in conjunction with the patient/family and health care team 4. Consult appropriate ancillary services (i.e.. PT/OT/ST, etc) as needed 5. Communicate with and update the patient/family, physician, and health care team regarding progress on the discharge plan 6. Identify discharge learning needs (meds, wound care, etc). 7. Arrange for needed discharge transportation as appropriate Outcome: Progressing Note: Evaluation of progress towards goal: Discharge Plan Reviewed. Patient data entry representative verbalizes understanding. Problem: Potential for Compromised Skin Integrity Goal: Skin integrity is maintained or improved Description: Patient's goal is: INTERVENTIONS 1. Perform initial skin assessment on admission and as needed 2. Turn patient every 2 hours and PRN 3. Relieve pressure to bony prominences 4. Avoid shearing 5. Keep skin clean and dry 6. Alternate a full bath with partial baths for elderly 7. Encourage use of lotion/moisturizer on skin 8. Monitor patient's hygiene practices 9. Float heels 10. Collaborate with interdisciplinary team and initiate plans and interventions as needed Outcome: Progressing Note: Evaluation of progress towards goal: Patient free from skin breakdown. Continue to monitor. Goal: Patient's nutritional intake is adequate Description: Patient's goal is: INTERVENTIONS 1. Assess and monitor food intake and supplements, patient food preferences, nausea, vomiting, labs, oral cavity (gums, teeth, tongue, mucosa), proper denture fit, and cultural beliefs 2. Monitor for signs of hypoglycemia and hyperglycemia 3. Collaborate with interdisciplinary team and initiate plan and interventions as ordered 4. Monitor patient's weight 5. Assist patient with meals/food selection 6. Assist patient with eating 7. Allow adequate time for meals 8. Provide pleasant environment during mealtime 9. Increase social contact during mealtimes 10. Plan activities to conserve energy 11. Encourage/perform oral hygiene as appropriate 12. Encourage patient to take dietary supplement as ordered 13. Collaborate with clinical commercial administrator 14. Include patient/ patient's data entry representative in decisions related to nutrition Outcome: Progressing Note: Evaluation of progress towards goal: Patient's nutritional intake is adequate. Continue to monitor. Problem: Urinary Incontinence Goal: Perineal skin integrity is maintained or improved Description: INTERVENTIONS 1. Assess genitourinary system, perineal skin, labs (urinalysis), and history of incontinence to include past management, aggravating, and alleviating factors 2. Keep skin clean and dry 3. Apply skin protectant 4. Develop skin care regimen 5. Provide privacy when changing patients incontinence device to maintain their dignity 6. Consider placing an indwelling catheter 7. Collaborate with interdisciplinary team and initiate plans and interventions as needed Outcome: Progressing Note: Evaluation of progress towards goal: Patient free from skin breakdown. Continue to monitor. Problem: Moderate - High Risk Fall Score Description: Cordova Fall Score of =/> 25 or indicated by [facility] Assessment Goal: Patient should be free from fall Description: Interventions: 1. Olds to environment 2. Hourly rounds addressing the 4 P's (Pain, Positioning, Possessions, Potty) 3. Clear area of hazards (spills, clutter, electrical cords, unnecessary equipment) 4. Place equipment (bed & TV controls, call light, phone, urinal) within reach 5. Encourage patient to wear glasses and hearing aides as appropriate 6. Maintain bed in lowest position 7. Lock wheels on bed/wheelchair 8. Provide adequate lighting, including night light 9. Assess need for additional bedding, food/fluids, pain med's prior to sleep/routinely 10. Provide gripper slippers or personal non-skid footwear 11. Teach patient and patient data entry representative to maintain environment for safety and engage in all aspects of fall prevention program 12. Remind patient to call for help before getting out of bed 13. Initiate bed/chair/exit alarms supportive devices as appropriate, (chair wedge, no-skid floor mat, raised edge mattress, hip protectors) 14. Locate patient bed assignment for optimal visualization 15. Evaluate and identify Safe Patient Handling Equipment needs 16. Provide supervision when out of bed or chair 17. Utilize gait belt as needed to assist with ambulation 18. Place adaptive equipment (cane, walker) within reach 19. Request patient data entry representative bring adaptive equipment/mobility aids from home or obtain and provide as needed 20. Consult pharmacy regarding effects of med's affecting mobility, cognition, and alternatives 21. Obtain physician order for PT if risk factors associated with mobility are present 22. Obtain physician order for OT as appropriate 23. Utilize diversional activities 24. Educate patient and patient data entry representative how to maintain a safe environment during visitationtimes (notify nurse prior to leaving bedside) 25. Consider appropriateness of medical or non-medical driver 26. Set up voiding schedule as appropriate (every 2 hours) Outcome: Progressing Note: Evaluation of progress towards goal: Patient free from falls and injury. Continue to monitor. Problem: Neurological Deficit Goal: Neurological status is stable or improving Description: Patient's goal is: INTERVENTIONS 1. Complete Neurological assessment as indicated/ordered 2. Initiate measures to prevent increased intracranial pressure 3. Monitor and assess patient's level of consciousness, motor function, sensory function, and levelof assistance needed for ADLs 4. Monitor and report changes from baseline 5. Maintain blood pressure and fluid volume within ordered parameters to optimize cerebral perfusion and minimize risk of hemorrhage 6. Monitor labs and diagnostic tests 7. Administer anti-seizure medications as ordered 8. Maintain airway, patient safety and administer oxygen as ordered 9. Monitor patient for seizure activity, document and report duration and description of seizure toLIP 10. If seizure occurs, turn patient to side and suction secretions as needed 11. Reorient patient post seizure 12. Seizure pads on all 4 side rails 13. Instruct patient/family to notify RN of any seizure activity 14. Instruct patient/family to call for assistance with activity based on assessment 15. Utilize bleeding precautions if thrombolytic given Outcome: Progressing Note: Evaluation of progress towards goal: Neurological status is stable. Continue to monitor. Problem: Activity Intolerance/Impaired Mobility Goal: Mobility/activity is maintained at optimum level for patient Description: Patient's goal is: INTERVENTIONS 1. Assess and monitor patient barriers to mobility and need for assistive/adaptive devices 2. Assess patient's emotional response to limitations 3. Collaborate with interdisciplinary teams and initiate plans and interventions as ordered 4. Encourage independent activity per tolerance 5. Maintain proper body alignment 6. Perform active/passive ROM as tolerated/ordered 7. Coordinate activities to conserve energy 8. Reposition patient 9. Ensure adequate rest/sleep time Outcome: Progressing Note: Evaluation of progress towards goal: Mobility/activity is at optimal level for patient. Continue to monitor. Problem: Communication Impairment Goal: Ability to express needs and understand communication Description: INTERVENTIONS 1. Assess patient's communication skills and ability to understand information 2. Provide alternate method of communication if needed i.e. ipad, sign board, pen/paper 3. Collaborate with Speech Therapy to develop effective communication strategies 4. Include patient/patient data entry representative in decisions related to communication Outcome: Progressing Note: Evaluation of progress towards goal: Patient is able to understand communication occasionallybut is unable to express needs. Continue to monitor. Problem: Potential for Aspiration Goal: Patient's risk of aspiration is minimized Description: INTERVENTIONS 1. Assess and monitor vital signs, respiratory status, and labs (WBC) 2. Monitor for signs of aspiration (tachypnea, cough, rales, wheezing, cyanosis, fever) 3. Assess and monitor patient's ability to swallow 4. Place patient up in chair to eat if possible 5. Elevate head of bed 90 degrees to eat if unable to get patient up into chair 6. Supervise patient during oral intake 7. Instruct patient to take small bites 8. Instruct patient to take small single sips when taking liquids 9. Follow patient-specific strategies generated by speech pathologist 10. Complete bedside swallow screen if appropriate and take actions as indicated. 11. Administer prescribed medications and monitor effects Outcome: Progressing Note: Evaluation of progress towards goal: Patient remains free from signs of aspiration. Aspiration precautions are in place. Continue to monitor. Problem: Self Care Deficit Goal: Return ADL status to a safe level of function Description: Patient's goal is: INTERVENTIONS 1. Administer medication as ordered 2. Assess ADL deficits and provide assistive devices as needed 3. Obtain PT/OT consults as needed 4. Assist and instruct patient to increase activity and self care as tolerated Outcome: Not Progressing Note: Evaluation of progress towards goal: ADL status is not at a safe level of function. Continue to encourage, assist with, and monitor activity per ability. Problem: Safety - Medical Restraint Goal: Remains free of injury from restraints (Restraint for Interference with Um Nurse) Description: INTERVENTIONS: 1. Determine that other, less restrictive measures have been tried or would not be effective beforeapplying the restraint 2. Evaluate the patient's condition at the time of restraint application 3. Inform patient/family regarding the reason for restraint 4. Q2H: Monitor safety, Vital signs, psychosocial status, signs of injury, skin integrity, circulation, neurovascular status in affected extremities, respiratory status, comfort, nutrition and hydration, hygiene, ROM, elimination needs 5. Doctor will be notified of restraint 6. RN properly applies restraints per physician order Outcome: Completed Note: Evaluation of progress towards goal: Patient remains free of injury from restraints. Restraints are discontinued. Goal: Free from restraint(s) (Restraint for Interference with Um Nurse) Description: INTERVENTIONS: 1. ONCE/SHIFT or MINIMUM Q12H: Assess and document the continuing need for restraints 2. Order is valid for the duration of the episode of care 3. Discontinue at the earliest possible time once the reason for restraints no longer exists 4. Identify and implement measures to help patient regain control 5. Food, fluids, and toilet offered at a minimum of every 2 hours 6. RN modifies the patient's plan of care by entering a problem statement related to safety; individualizes the safety outcome Outcome: Progressing Note: Evaluation of progress towards goal: Patient remains free from restraints. Continue to monitor. Problem: Multi-Drug Resistant Organism / Rule-Out Infection Prevention Goal: Prevent transmission of infection Description: INTERVENTIONS 1. Place patient in private room or in room with patient with same disease 2. Discard single-use items 3. Clean reusable equipment between patients 4. Wear gloves for direct and indirect contact with patient or contaminants 5. Change gloves between tasks and procedures 6. Wash hands before and after caring for each patient 7. Wear appropriate personal protective equipment in relation to the indicated isolation type 8. Place appropriate isolation signage on patient's door 9. Provide patient/ patient data entry representative with isolation education. Outcome: Progressing Note: Evaluation of progress towards goal: Patient free from signs of infection. Afebrile. Continueto Monitor. * Plan of Care - Ethel Marshall RN - 04/14/2023 3:43 AM EST Problem: Pain Goal: Patient goal is pain score less than 4, able to rest, and participant in treatment plan as appropriate Description: INTERVENTIONS: 1. Encourage patient or legal data entry representative to report early pain and ask for pain medicine when needed 2. Assess pain using appropriate pain scale and include the scale used when documenting 3. Administer analgesics based on type and severity of pain and evaluate response within appropriate time frame 4. Implement non-pharmacological measures as appropriate and evaluate response 5. Consider cultural and social influences on pain and pain management 6. Notify LIP if interventions ineffective or patient reports new pain 7. Monitor vital signs including pulse ox, end-tidal CO2 based on pain intervention 8. Reassess pain per policy 9. Teach patient or legal data entry representative interventions for comforting Outcome: Progressing Note: Evaluation of progress towards goal: Patient encouraged to report pain occurrence, pain assessed using 0-10 pain scale, vital signs monitored. Pain controlled with PRN pain medications, pain reassessed. Will continue to monitor. Problem: Safety Goal: Patient will be injury free during hospitalization Description: INTERVENTIONS: 1. Assess patient's risk for falls and implement fall prevention plan of care per policy 2. Provide and maintain a safe environment 3. Proper use of double Identifiers 4. Medication administration using the 5 rights 5. Hand hygiene 6. Specimens are labeled at the bedside 7. Instruct patient/ patient data entry representative about use of safety devices 8. Include patient/ patient data entry representative in decisions related to safety Outcome: Progressing Note: Evaluation of progress towards goal: Pt remains injury free & Safety measures maintained throughout shift. Hourly rounding completed. [place] precautions followed. Problem: Moderate - High Risk Fall Score Description: [place] Fall Score of =/> 25 or indicated by [facility] Assessment Goal: Patient should be free from fall Description: Interventions: 1. Olds to environment 2. Hourly rounds addressing the 4 P's (Pain, Positioning, Possessions, Potty) 3. Clear area of hazards (spills, clutter, electrical cords, unnecessary equipment) 4. Place equipment (bed & TV controls, call light, phone, urinal) within reach 5. Encourage patient to wear glasses and hearing aides as appropriate 6. Maintain bed in lowest position 7. Lock wheels on bed/wheelchair 8. Provide adequate lighting, including night light 9. Assess need for additional bedding, food/fluids, pain med's prior to sleep/routinely 10. Provide gripper slippers or personal non-skid footwear 11. Teach patient and patient data entry representative to maintain environment for safety and engage in all aspects of fall prevention program 12. Remind patient to call for help before getting out of bed 13. Initiate bed/chair/exit alarms supportive devices as appropriate, (chair wedge, no-skid floor mat, raised edge mattress, hip protectors) 14. Locate patient bed assignment for optimal visualization 15. Evaluate and identify Safe Patient Handling Equipment needs 16. Provide supervision when out of bed or chair 17. Utilize gait belt as needed to assist with ambulation 18. Place adaptive equipment (cane, walker) within reach 19. Request patient data entry representative bring adaptive equipment/mobility aids from home or obtain and provide as needed 20. Consult pharmacy regarding effects of med's affecting mobility, cognition, and alternatives 21. Obtain physician order for PT if risk factors associated with mobility are present 22. Obtain physician order for OT as appropriate 23. Utilize diversional activities 24. Educate patient and patient data entry representative how to maintain a safe environment during visitationtimes (notify nurse prior to leaving bedside) 25. Consider appropriateness of medical or non-medical driver 26. Set up voiding schedule as appropriate (every 2 hours) Outcome: Progressing Note: Evaluation of progress towards goal: Pt has remained free of falls through this shift. Bed locked and in lowest position, and fall risk band on. Will continue to assess needs hourly. * Plan of Care - Nayely Lopez RN - 04/13/2023 7:44 PM EST Problem: Pain Goal: Patient goal is pain score less than 4, able to rest, and participant in treatment plan as appropriate Description: INTERVENTIONS: 1. Encourage patient or legal data entry representative to report early pain and ask for pain medicine when needed 2. Assess pain using appropriate pain scale and include the scale used when documenting 3. Administer analgesics based on type and severity of pain and evaluate response within appropriate time frame 4. Implement non-pharmacological measures as appropriate and evaluate response 5. Consider cultural and social influences on pain and pain management 6. Notify LIP if interventions ineffective or patient reports new pain 7. Monitor vital signs including pulse ox, end-tidal CO2 based on pain intervention 8. Reassess pain per policy 9. Teach patient or legal data entry representative interventions for comforting Outcome: Progressing Note: Evaluation of progress towards goal: prn tylenol effective with pain management Problem: Safety Goal: Patient will be injury free during hospitalization Description: INTERVENTIONS: 1. Assess patient's risk for falls and implement fall prevention plan of care per policy 2. Provide and maintain a safe environment 3. Proper use of double Identifiers 4. Medication administration using the 5 rights 5. Hand hygiene 6. Specimens are labeled at the bedside 7. Instruct patient/ patient data entry representative about use of safety devices 8. Include patient/ patient data entry representative in decisions related to safety Outcome: Progressing Note: Evaluation of progress towards goal: bed alarm call light in reach Problem: Infection Goal: Absence of infection during hospitalization Description: Interventions: 1. Assess and monitor for signs and symptoms of infection 2. Monitor lab/diagnostic results 3. Monitor all insertion sites i.e., indwelling lines, tubes and drains 4. Monitor endotracheal (as able) and nasal secretions for changes in amount and color 5. Administer medications as ordered 6. Instruct and encourage patient and family to use good hand hygiene technique 7. Identify and instruct patient/patient data entry representative in use of appropriate isolation precautionsfor identified infection/symptoms 8. Provide and discuss with patient/patient data entry representative on educational MDRO sheet 9. Encourage and monitor nutritional status daily and consult commercial administrator if indicated 10. Implement neutropenic guidelines as needed 11. Review exposure to history of communicable disease and recent travel history on admission 12. Encourage annual influenza vaccine 13. Encourage pneumonia vaccine Outcome: Progressing Note: Evaluation of progress towards goal: IV antibiotic complete * Plan of Care - Nayely Lopez RN - 04/12/2023 4:33 PM EST Problem: Pain Goal: Patient goal is pain score less than 4, able to rest, and participant in treatment plan as appropriate Description: INTERVENTIONS: 1. Encourage patient or legal data entry representative to report early pain and ask for pain medicine when needed 2. Assess pain using appropriate pain scale and include the scale used when documenting 3. Administer analgesics based on type and severity of pain and evaluate response within appropriate time frame 4. Implement non-pharmacological measures as appropriate and evaluate response 5. Consider cultural and social influences on pain and pain management 6. Notify LIP if interventions ineffective or patient reports new pain 7. Monitor vital signs including pulse ox, end-tidal CO2 based on pain intervention 8. Reassess pain per policy 9. Teach patient or legal data entry representative interventions for comforting Note: Evaluation of progress towards goal: pain relieved with prn medication administration Problem: Safety Goal: Patient will be injury free during hospitalization Description: INTERVENTIONS: 1. Assess patient's risk for falls and implement fall prevention plan of care per policy 2. Provide and maintain a safe environment 3. Proper use of double Identifiers 4. Medication administration using the 5 rights 5. Hand hygiene 6. Specimens are labeled at the bedside 7. Instruct patient/ patient data entry representative about use of safety devices 8. Include patient/ patient data entry representative in decisions related to safety Outcome: Progressing Note: Evaluation of progress towards goal: bed alarm on working Problem: Infection Goal: Absence of infection during hospitalization Description: Interventions: 1. Assess and monitor for signs and symptoms of infection 2. Monitor lab/diagnostic results 3. Monitor all insertion sites i.e., indwelling lines, tubes and drains 4. Monitor endotracheal (as able) and nasal secretions for changes in amount and color 5. Administer medications as ordered 6. Instruct and encourage patient and family to use good hand hygiene technique 7. Identify and instruct patient/patient data entry representative in use of appropriate isolation precautionsfor identified infection/symptoms 8. Provide and discuss with patient/patient data entry representative on educational MDRO sheet 9. Encourage and monitor nutritional status daily and consult commercial administrator if indicated 10. Implement neutropenic guidelines as needed 11. Review exposure to history of communicable disease and recent travel history on admission 12. Encourage annual influenza vaccine 13. Encourage pneumonia vaccine Outcome: Progressing Note: Evaluation of progress towards goal: continue IV antibiotic Problem: Knowledge Deficit Goal: Patient/patient data entry representative demonstrates understanding of disease process, treatment plan,medications, and discharge instructions Description: INTERVENTIONS 1. Complete learning assessment and assess knowledge base 2. Provide teaching at level of understanding 3. Provide teaching via preferred learning method(s) Outcome: Progressing Note: Evaluation of progress towards goal: family verbalizes understanding plan of care Problem: Discharge Planning Goal: Discharge to post-acute care, other facility, or home with appropriate resources Description: Patient's goal is: INTERVENTIONS 1. Conduct assessment to determine patient/family and health care team treatment goals, and need for post-acute services based on payer coverage, community resources, and patient preferences, and barriers to discharge 2. Coordinate with Social work, Care Navigation, and Utilization Review to arrange appropriate level of services according to patient's needs based on patient preference and payer coverage in collaboration with the physician and health care team 3. Address psychosocial, clinical, and financial barriers to discharge as identified in assessment in conjunction with the patient/family and health care team 4. Consult appropriate ancillary services (i.e.. PT/OT/ST, etc) as needed 5. Communicate with and update the patient/family, physician, and health care team regarding progress on the discharge plan 6. Identify discharge learning needs (meds, wound care, etc). 7. Arrange for needed discharge transportation as appropriate Outcome: Progressing Note: Evaluation of progress towards goal: plan to d[facility]c to [facility] Problem: Potential for Compromised Skin Integrity Goal: Skin integrity is maintained or improved Description: Patient's goal is: INTERVENTIONS 1. Perform initial skin assessment on admission and as needed 2. Turn patient every 2 hours and PRN 3. Relieve pressure to bony prominences 4. Avoid shearing 5. Keep skin clean and dry 6. Alternate a full bath with partial baths for elderly 7. Encourage use of lotion/moisturizer on skin 8. Monitor patient's hygiene practices 9. Float heels 10. Collaborate with interdisciplinary team and initiate plans and interventions as needed Outcome: Progressing Note: Evaluation of progress towards goal: skin integrity maintained * Discharge Planning Note - Sharon Jimenez - 04/12/2023 4:32 PM EST DISCHARGE PLANNING NOTE Updates to [facility] (P#: ; F#: ) * Discharge Planning Note - GAURAV Gandhi - 04/12/2023 4:20 PM EST DISCHARGE PLANNING NOTE Discussed pt during DTR's. DC plan: Likely SNF. [facility] is following, need nutrition plan, likely PEG placement? Need to follow up with family on final SNF choice as pt will not meet IP rehab criteria at this time. Barriers: nutrition, has mitts, IV atb. SW to follow - GAURAV Gandhi 04/12/23 4:22 PM * PT/OT/PIPE BENDER - Mena Pleitez PTA - 04/12/2023 9:43 AM EST Physical Therapy Treatment Discharge Recommendations PT Recommendations: Long Term Facility 6 Clicks: Basic Mobility Turning from your back to your side while in a flat bed without using bed rails?: Total Moving from lying on your back to sitting on side of flat bed without using bed rails?: Total Moving to and from bed to a chair (including w/c)?: Total Standing up from a chair using your arms (e.g. w/c or bedside chair)?: Total To walk in hospital room?: Total Climbing 3-5 steps with a railing?: Total Scoring 6 Clicks: Basic Mobility Raw Score: 6 CMS G Code Modifier: CN PT Treatment/Interventions: Functional transfer training, LE strengthening/ROM, Patient/family training, Equipment eval/education, Cognitive reorientation, Balance, Bed mobility PT Frequency: 4-5days/week (2 assist) Patient Response to Treatment: Slow progress, medical status limitations Assessment Patient Assessment Patient Response to Treatment: Slow progress, medical status limitations Visit RN Communication: Yes Medical Record Reviewed: Yes PT Type of Visit: Treatment Precautions Activity: ok for therapy per ELIZABETH Adler Equipment: PEG feeding tube, O2, larios, maxi sophia lift, chair alarm Telemetry/Residential Aide: Yes Oxygen Used: 2L O2 Other: high fall risk, R hemiparesis, non-verbal Pain Assessment Pain Assessment: (no indication of pain throughout tx) Hearing / Speech / Vision Hearing: Within Functional Limits Speech: Expressive aphasia, Receptive aphasia Other: L gaze preference - occasional midline Cognition Arousal/Alertness: (initially lethargic) Bed Mobility Rolling: Total assist, Left Supine to Sit: Total assist (x 2) Sit to Supine: Total assist (x 2) Transfers Lateral Transfers: Total assist (using maxi sophia lift) Balance Sitting Balance: Static: (poor+/poor) Other: pt sat EOB 13 mins working on balance and ADL task - pt pushes R and posteriorly. L elbow prop to facilitate improved midline sitting - brief improvement. Pt ranges from MIN to MAX assist for balance 04/12/23 0843 LE Supine LE supine exercises performed? Yes Ankle pumps x Supine heel slides x Hip abduction x Repetitions 10-15 Activity Tolerance Endurance: Tolerates <30 minutes activity WITHOUT vital sign changes Plan Physical Therapy Care Plan Physical Therapy Care Plan (Active) Template: PT - Physical Therapy Problem: Activity Tolerance Dates: Start: 04/04/23 Disciplines: PT Goal: Tolerate 30 minutes of activity WITH rest breaks Dates: Start: 04/04/23 Expected End: 05/03/23 Description: Goal Description: for supine, seated and supported standing activities for improved mobility Disciplines: PT Outcomes Date/Time User Outcome 04/12/23 09Mykel Pleitez PTA Not Progressing Problem: Bed Mobility Dates: Start: 04/04/23 Disciplines: PT Goal: Patient will perform bed mobility with Minimum Assist Dates: Start: 04/04/23 Expected End: 05/03/23 Description: Goal Description: Disciplines: PT Outcomes Date/Time User Outcome 04/12/23 Raulito Pleitez PTA Not Progressing Problem: Sitting Balance Dates: Start: 04/04/23 Disciplines: PT Goal: Improve balance to good Dates: Start: 04/04/23 Expected End: 05/03/23 Description: Static Dynamic with UE support for safe ADLs and transfers Disciplines: PT Outcomes Date/Time User Outcome 04/12/23 09Mykel Pleitez PTA Progressing Problem: Standing Balance Dates: Start: 04/04/23 Disciplines: PT Goal: Improve balance to fair Dates: Start: 04/04/23 Expected End: 05/03/23 Description: Static Dynamic with UE support/SPH equipment for safe transfers Disciplines: PT Problem: Strength Dates: Start: 04/04/23 Disciplines: PT Goal: Improve strength Dates: Start: 04/04/23 Expected End: 05/03/23 Description: Of extremity/ location: R LE to 3+/5 or greater To facilitate: mobility Disciplines: PT Outcomes Date/Time User Outcome 04/12/23 0939 Mena Pleitez, REHABILITATION CENTER MANAGER Not Progressing Problem: Transfers Dates: Start: 04/04/23 Disciplines: PT Goal: Patient will perform transfers with Moderate Assist Dates: Start: 04/04/23 Expected End: 05/03/23 Description: Goal Description: sit to stand with SPH equipment/UE support Disciplines: PT Physical Therapy Care Plan (Resolved) There are no resolved problems. Principal Problem: 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[facility]) Associated attestation - Irvin Gibbs, PT - 04/12/2023 10:33 AM EST I have reviewed and agree with this note and education documentation for this visit. * PT/OT/PIPE BENDER - JULIO Douglas/Cyril - 04/12/2023 9:38 AM EST Occupational Therapy Treatment Discharge Recommendations OT Recommendations : Long Term Facility 6 Clicks: Daily Activity Putting on and taking off regular lower body clothing?: Total Bathing (including washing, rinsing, drying)?: Total Toileting, which includes using toilet, bedpan or urinal?: Total Putting on and taking off regular upper body clothing?: Total Taking care of personal grooming such as brushing teeth?: A lot Eating meals?: Total Scoring Daily Activity Raw Score: 7 [facility] G Code Modifier: CM Therapy Plan Need for skilled Occupational Therapy to address deficits in ADL independence and functional mobility due to a status decline resulting from 04/12/23 0840 UE ROM UE ROM exercises performed? Yes Shoulder shrugs x Shoulder flexion/extension x Shoulder horizontal abduction/adduction x Elbow flexion/extension x Wrist flexion/extension x Digital flexion/extension x Repetitions 20 reps PROM w/R UE OT Treatment/Interventions: ADL retraining, Functional transfer training, UE strengthening/ROM, Endurance training, Patient/family training, Equipment eval/education, Balance, Bed mobility, Compensatory technique education, Functional activities, Neuromuscular reeducation OT Frequency: 4-5days/week Assessment Patient Assessment Patient Response to Treatment: Slow progress, decreased activity tolerance, Slow progress, medical status limitations, Slow progress, cognitive deficits Visit RN Communication: Yes Medical Record Reviewed: Yes OT Type of Visit: Treatment Precautions Activity: ok for therapy per RN Nayely Equipment: peg, O2, repositioning sling, chair alarm, delfin moss, Telemetry/Residential Aide: Yes Oxygen Used: 2L Other: high fall risk, R hemiparesis, non-verbal, Pain Assessment Pain Assessment: (no indication of pain) ADL / IADL Where Assessed: Edge of bed, Supine, bed Grooming Assistance: Setup, Mod assist Grooming Deficit: Wash/dry face, Increased time to complete (use of hand over hand technique to initiate task) Toilet/Commode Assistance: Total assist (to don brief) UE Dressing Assistance: Total assist (to don gown) Hearing / Speech / Vision Hearing: Within Functional Limits Speech: Expressive aphasia, Receptive aphasia Bed Mobility Rolling: Total assist, Left Supine to Sit: Total assist Sit to Supine: Total assist Transfers Lateral Transfers: Total assist (use of overhead lift) Balance Sitting Balance: Static: (varied between poor+ and poor;) Other: sat at EOB about 13mins, falls posteriorly and pushes to the R Activity Tolerance Endurance: Tolerates 30 minutes activity with rest breaks Plan Occupational Therapy Care Plan Occupational Therapy Care Plan (Active) Template: OT - Occupational Therapy Problem: Activity Tolerance Dates: Start: 04/04/23 Disciplines: OT Goal: Tolerate > 30 minutes of activity WITH rest breaks Dates: Start: 04/04/23 Expected End: 05/02/23 Description: Goal Description: Disciplines: OT Outcomes Date/Time User Outcome 04/12/23 0931 Key Hart JULIO/L Progressing Problem: Bed Mobility Dates: Start: 04/04/23 Disciplines: OT Goal: Patient will perform bed mobility with Minimum Assist Dates: Start: 04/04/23 Expected End: 05/02/23 Description: Goal Description: Disciplines: OT Outcomes Date/Time User Outcome 04/12/23 0931 Key Hrat, JULIO/L Not Progressing Problem: Other (Customize) Dates: Start: 04/04/23 Disciplines: OT Goal: Improve Dates: Start: 04/04/23 Expected End: 05/02/23 Description: Goal Description: improve assist with self care to Mod A or less Disciplines: OT Outcomes Date/Time User Outcome 04/12/23 0931 Key Hart, JULIO/L Progressing Problem: ROM Dates: Start: 04/04/23 Disciplines: OT Goal: Improve ROM Dates: Start: 04/04/23 Expected End: 05/02/23 Description: Of extremity/ location: RUE as able A/AA/PROM all joints to end range of motion To facilitate: improve assist with self care and mobility tasks Disciplines: OT Outcomes Date/Time User Outcome 04/12/23 0931 Key Cortezg, JULIO/L Not Progressing Problem: Sitting Balance Dates: Start: 04/04/23 Disciplines: OT Goal: Improve balance to good Dates: Start: 04/04/23 Expected End: 05/02/23 Description: Static Dynamic Disciplines: OT Outcomes Date/Time User Outcome 04/12/23 0931 Key Pedraza-Arnulfo, TREKKING GUIDE/L Progressing Problem: Standing Balance Dates: Start: 04/04/23 Disciplines: OT Goal: Improve balance to fair Dates: Start: 04/04/23 Expected End: 05/02/23 Description: Static Dynamic Disciplines: OT Problem: Strength Dates: Start: 04/04/23 Disciplines: OT Goal: Improve strength Dates: Start: 04/04/23 Expected End: 05/02/23 Description: Of extremity/ location: improve RUE as able from 0/5 To facilitate: improve assist with self care and mobility Disciplines: OT Problem: Toilet Transfers Dates: Start: 04/04/23 Disciplines: OT Goal: Patient will perform toilet transfers with Minimum Assist Dates: Start: 04/04/23 Expected End: 05/02/23 Description: Goal Description: Disciplines: OT Problem: Transfers Dates: Start: 04/04/23 Disciplines: OT Goal: Patient will perform transfers with Minimum Assist Dates: Start: 04/04/23 Expected End: 05/02/23 Description: Goal Description: Disciplines: OT Occupational Therapy Care Plan (Resolved) There are no resolved problems. Principal Problem: 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[facility]) Associated attestation - Sue Rodriguez OTR/L - 04/12/2023 11:59 AM EST I have reviewed and agree with this note and education documentation for this visit. * Query Response - Haseeb Mcnamara APRN-SHAMEKA - 04/12/2023 6:07 AM EST Query Response Note CDI QUERY TEXT: JOHN Renal Condition [id number] Disclaimer: By submitting this query, we are merely seeking further clarification of documentation to accurately reflect all conditions that you are monitoring, evaluating, treating or that extend the hospitalization or utilize additional resources of care. Please utilize your independent clinical judgment when addressing the question(s) below. Kike Mcnamara, JOHN is documented in the Medical Record (see below Clinical Findings). This abbreviation can stand for more than one renal condition, so it will need to be written out at least once within each encounter. 1) Can you please specify which JOHN condition you are treating to accurately reflect the patient?s treatment needs and severity of illness, such as: - Acute Kidney Insufficiency - Acute Kidney Injury/ Acute Kidney Failure - Other (Please provide documentation identifying the condition) - Unknown/ Unable to Determine Clinical Findings: Creatinine trend: 0.63, 0.72, 0.70, 1.11, 0.97, 0.74. BUN trend: 12, 19, 39, 53, 54, 33. eGFR trend: 90, 84, 87, 50, 59, 82. 04/08/23 Progress note documents: JOHN, improving. 04/09/23 Progress note (PN): JOHN, resolved. 04/10/23 PN: JOHN, improved. Background: Patient currently admitted with Acute left ophthalmic ICH with IVH. Please document any of the above specifications within the progress notes and/or discharge summary or as response to this query. The Clinical Documentation Improvement (CDI) staff are working remotely. If you have any questions or concerns regarding this query, please feel free to contact me. Herlinda NEVILLE, RN Clinical [employer]er [facility] Clinical Revenue Cycle Email: The patient's Clinical Indicators include: See Query. CDI RESPONSE TEXT: Acute kidney injury Query created by: Leonila Leonard on 04/11/2023 8:23 AM Electronically signed by: Haseeb Mcnamara CNP 04/12/2023 6:05 AM * Plan of Care - Ethel Marshall RN - 04/12/2023 3:16 AM EST Problem: Safety - Medical Restraint Goal: Remains free of injury from restraints (Restraint for Interference with Um Nurse) Description: INTERVENTIONS: 1. Determine that other, less restrictive measures have been tried or would not be effective beforeapplying the restraint 2. Evaluate the patient's condition at the time of restraint application 3. Inform patient/family regarding the reason for restraint 4. Q2H: Monitor safety, Vital signs, psychosocial status, signs of injury, skin integrity, circulation, neurovascular status in affected extremities, respiratory status, comfort, nutrition and hydration, hygiene, ROM, elimination needs 5. Doctor will be notified of restraint 6. RN properly applies restraints per physician order Outcome: Progressing Note: Evaluation of progress towards goal: Left hand mitt on related to patient pull lines. Family at bedside. * Plan of Care - Ethel Marshall RN - 04/12/2023 12:07 AM EST Problem: Pain Goal: Patient goal is pain score less than 4, able to rest, and participant in treatment plan as appropriate Description: INTERVENTIONS: 1. Encourage patient or legal data entry representative to report early pain and ask for pain medicine when needed 2. Assess pain using appropriate pain scale and include the scale used when documenting 3. Administer analgesics based on type and severity of pain and evaluate response within appropriate time frame 4. Implement non-pharmacological measures as appropriate and evaluate response 5. Consider cultural and social influences on pain and pain management 6. Notify LIP if interventions ineffective or patient reports new pain 7. Monitor vital signs including pulse ox, end-tidal CO2 based on pain intervention 8. Reassess pain per policy 9. Teach patient or legal data entry representative interventions for comforting Outcome: Progressing Note: Evaluation of progress towards goal: Patient encouraged to report pain occurrence, vital signs monitored. Pain controlled with PRN pain medications, pain reassessed. Will continue to monitor. Problem: Safety Goal: Patient will be injury free during hospitalization Description: INTERVENTIONS: 1. Assess patient's risk for falls and implement fall prevention plan of care per policy 2. Provide and maintain a safe environment 3. Proper use of double Identifiers 4. Medication administration using the 5 rights 5. Hand hygiene 6. Specimens are labeled at the bedside 7. Instruct patient/ patient data entry representative about use of safety devices 8. Include patient/ patient data entry representative in decisions related to safety Outcome: Progressing Note: Evaluation of progress towards goal: Pt remains injury free & Safety measures maintained throughout shift. Family member is at bedside. Hourly rounding completed. [place] precautions followed. Problem: Moderate - High Risk Fall Score Description: [place] Fall Score of =/> 25 or indicated by [facility] Assessment Goal: Patient should be free from fall Description: Interventions: 1. Olds to environment 2. Hourly rounds addressing the 4 P's (Pain, Positioning, Possessions, Potty) 3. Clear area of hazards (spills, clutter, electrical cords, unnecessary equipment) 4. Place equipment (bed & TV controls, call light, phone, urinal) within reach 5. Encourage patient to wear glasses and hearing aides as appropriate 6. Maintain bed in lowest position 7. Lock wheels on bed/wheelchair 8. Provide adequate lighting, including night light 9. Assess need for additional bedding, food/fluids, pain med's prior to sleep/routinely 10. Provide gripper slippers or personal non-skid footwear 11. Teach patient and patient data entry representative to maintain environment for safety and engage in all aspects of fall prevention program 12. Remind patient to call for help before getting out of bed 13. Initiate bed/chair/exit alarms supportive devices as appropriate, (chair wedge, no-skid floor mat, raised edge mattress, hip protectors) 14. Locate patient bed assignment for optimal visualization 15. Evaluate and identify Safe Patient Handling Equipment needs 16. Provide supervision when out of bed or chair 17. Utilize gait belt as needed to assist with ambulation 18. Place adaptive equipment (cane, walker) within reach 19. Request patient data entry representative bring adaptive equipment/mobility aids from home or obtain and provide as needed 20. Consult pharmacy regarding effects of med's affecting mobility, cognition, and alternatives 21. Obtain physician order for PT if risk factors associated with mobility are present 22. Obtain physician order for OT as appropriate 23. Utilize diversional activities 24. Educate patient and patient data entry representative how to maintain a safe environment during visitationtimes (notify nurse prior to leaving bedside) 25. Consider appropriateness of medical or non-medical driver 26. Set up voiding schedule as appropriate (every 2 hours) Outcome: Progressing Note: Evaluation of progress towards goal: Pt has remained free of falls through this shift. non slip socks are on, bed locked and in lowest position, and fall risk band on. Will continue to assess needs hourly. * Plan of Care - Mai Seymour RN - 04/11/2023 1:27 PM EST Problem: Pain Goal: Patient goal is pain score less than 4, able to rest, and participant in treatment plan as appropriate Description: INTERVENTIONS: 1. Encourage patient or legal data entry representative to report early pain and ask for pain medicine when needed 2. Assess pain using appropriate pain scale and include the scale used when documenting 3. Administer analgesics based on type and severity of pain and evaluate response within appropriate time frame 4. Implement non-pharmacological measures as appropriate and evaluate response 5. Consider cultural and social influences on pain and pain management 6. Notify LIP if interventions ineffective or patient reports new pain 7. Monitor vital signs including pulse ox, end-tidal CO2 based on pain intervention 8. Reassess pain per policy 9. Teach patient or legal data entry representative interventions for comforting Outcome: Progressing Note: Evaluation of progress towards goal: patient currently denies pain Problem: Safety Goal: Patient will be injury free during hospitalization Description: INTERVENTIONS: 1. Assess patient's risk for falls and implement fall prevention plan of care per policy 2. Provide and maintain a safe environment 3. Proper use of double Identifiers 4. Medication administration using the 5 rights 5. Hand hygiene 6. Specimens are labeled at the bedside 7. Instruct patient/ patient data entry representative about use of safety devices 8. Include patient/ patient data entry representative in decisions related to safety Outcome: Progressing Note: Evaluation of progress towards goal: pt free from injury during hospital stay Problem: Infection Goal: Absence of infection during hospitalization Description: Interventions: 1. Assess and monitor for signs and symptoms of infection 2. Monitor lab/diagnostic results 3. Monitor all insertion sites i.e., indwelling lines, tubes and drains 4. Monitor endotracheal (as able) and nasal secretions for changes in amount and color 5. Administer medications as ordered 6. Instruct and encourage patient and family to use good hand hygiene technique 7. Identify and instruct patient/patient data entry representative in use of appropriate isolation precautionsfor identified infection/symptoms 8. Provide and discuss with patient/patient data entry representative on educational MDRO sheet 9. Encourage and monitor nutritional status daily and consult commercial administrator if indicated 10. Implement neutropenic guidelines as needed 11. Review exposure to history of communicable disease and recent travel history on admission 12. Encourage annual influenza vaccine 13. Encourage pneumonia vaccine Outcome: Progressing Note: Evaluation of progress towards goal: no signs of infection at this time Problem: Knowledge Deficit Goal: Patient/patient data entry representative demonstrates understanding of disease process, treatment plan,medications, and discharge instructions Description: INTERVENTIONS 1. Complete learning assessment and assess knowledge base 2. Provide teaching at level of understanding 3. Provide teaching via preferred learning method(s) Outcome: Progressing Note: Evaluation of progress towards goal: all questions answered; care plan discussed with family Problem: Discharge Planning Goal: Discharge to post-acute care, other facility, or home with appropriate resources Description: Patient's goal is: INTERVENTIONS 1. Conduct assessment to determine patient/family and health care team treatment goals, and need for post-acute services based on payer coverage, community resources, and patient preferences, and barriers to discharge 2. Coordinate with Social work, Care Navigation, and Utilization Review to arrange appropriate level of services according to patient's needs based on patient preference and payer coverage in collaboration with the physician and health care team 3. Address psychosocial, clinical, and financial barriers to discharge as identified in assessment in conjunction with the patient/family and health care team 4. Consult appropriate ancillary services (i.e.. PT/OT/ST, etc) as needed 5. Communicate with and update the patient/family, physician, and health care team regarding progress on the discharge plan 6. Identify discharge learning needs (meds, wound care, etc). 7. Arrange for needed discharge transportation as appropriate Outcome: Progressing Note: Evaluation of progress towards goal: pt not ready for discharge Problem: Potential for Compromised Skin Integrity Goal: Skin integrity is maintained or improved Description: Patient's goal is: INTERVENTIONS 1. Perform initial skin assessment on admission and as needed 2. Turn patient every 2 hours and PRN 3. Relieve pressure to bony prominences 4. Avoid shearing 5. Keep skin clean and dry 6. Alternate a full bath with partial baths for elderly 7. Encourage use of lotion/moisturizer on skin 8. Monitor patient's hygiene practices 9. Float heels 10. Collaborate with interdisciplinary team and initiate plans and interventions as needed Outcome: Progressing Note: Evaluation of progress towards goal: skin intact Goal: Patient's nutritional intake is adequate Description: Patient's goal is: INTERVENTIONS 1. Assess and monitor food intake and supplements, patient food preferences, nausea, vomiting, labs, oral cavity (gums, teeth, tongue, mucosa), proper denture fit, and cultural beliefs 2. Monitor for signs of hypoglycemia and hyperglycemia 3. Collaborate with interdisciplinary team and initiate plan and interventions as ordered 4. Monitor patient's weight 5. Assist patient with meals/food selection 6. Assist patient with eating 7. Allow adequate time for meals 8. Provide pleasant environment during mealtime 9. Increase social contact during mealtimes 10. Plan activities to conserve energy 11. Encourage/perform oral hygiene as appropriate 12. Encourage patient to take dietary supplement as ordered 13. Collaborate with clinical commercial administrator 14. Include patient/ patient's data entry representative in decisions related to nutrition Outcome: Progressing Note: Evaluation of progress towards goal: pt NPO for peg tube placement Problem: Urinary Incontinence Goal: Perineal skin integrity is maintained or improved Description: INTERVENTIONS 1. Assess genitourinary system, perineal skin, labs (urinalysis), and history of incontinence to include past management, aggravating, and alleviating factors 2. Keep skin clean and dry 3. Apply skin protectant 4. Develop skin care regimen 5. Provide privacy when changing patients incontinence device to maintain their dignity 6. Consider placing an indwelling catheter 7. Collaborate with interdisciplinary team and initiate plans and interventions as needed Outcome: Progressing Note: Evaluation of progress towards goal: perineal skin intact Problem: Moderate - High Risk Fall Score Description: [place] Fall Score of =/> 25 or indicated by [facility] Assessment Goal: Patient should be free from fall Description: Interventions: 1. Olds to environment 2. Hourly rounds addressing the 4 P's (Pain, Positioning, Possessions, Potty) 3. Clear area of hazards (spills, clutter, electrical cords, unnecessary equipment) 4. Place equipment (bed & TV controls, call light, phone, urinal) within reach 5. Encourage patient to wear glasses and hearing aides as appropriate 6. Maintain bed in lowest position 7. Lock wheels on bed/wheelchair 8. Provide adequate lighting, including night light 9. Assess need for additional bedding, food/fluids, pain med's prior to sleep/routinely 10. Provide gripper slippers or personal non-skid footwear 11. Teach patient and patient data entry representative to maintain environment for safety and engage in all aspects of fall prevention program 12. Remind patient to call for help before getting out of bed 13. Initiate bed/chair/exit alarms supportive devices as appropriate, (chair wedge, no-skid floor mat, raised edge mattress, hip protectors) 14. Locate patient bed assignment for optimal visualization 15. Evaluate and identify Safe Patient Handling Equipment needs 16. Provide supervision when out of bed or chair 17. Utilize gait belt as needed to assist with ambulation 18. Place adaptive equipment (cane, walker) within reach 19. Request patient data entry representative bring adaptive equipment/mobility aids from home or obtain and provide as needed 20. Consult pharmacy regarding effects of med's affecting mobility, cognition, and alternatives 21. Obtain physician order for PT if risk factors associated with mobility are present 22. Obtain physician order for OT as appropriate 23. Utilize diversional activities 24. Educate patient and patient data entry representative how to maintain a safe environment during visitationtimes (notify nurse prior to leaving bedside) 25. Consider appropriateness of medical or non-medical driver 26. Set up voiding schedule as appropriate (every 2 hours) Outcome: Progressing Note: Evaluation of progress towards goal: pt free from falls during hospital stay Problem: Neurological Deficit Goal: Neurological status is stable or improving Description: Patient's goal is: INTERVENTIONS 1. Complete Neurological assessment as indicated/ordered 2. Initiate measures to prevent increased intracranial pressure 3. Monitor and assess patient's level of consciousness, motor function, sensory function, and levelof assistance needed for ADLs 4. Monitor and report changes from baseline 5. Maintain blood pressure and fluid volume within ordered parameters to optimize cerebral perfusion and minimize risk of hemorrhage 6. Monitor labs and diagnostic tests 7. Administer anti-seizure medications as ordered 8. Maintain airway, patient safety and administer oxygen as ordered 9. Monitor patient for seizure activity, document and report duration and description of seizure toLIP 10. If seizure occurs, turn patient to side and suction secretions as needed 11. Reorient patient post seizure 12. Seizure pads on all 4 side rails 13. Instruct patient/family to notify RN of any seizure activity 14. Instruct patient/family to call for assistance with activity based on assessment 15. Utilize bleeding precautions if thrombolytic given Outcome: Progressing Note: Evaluation of progress towards goal: neuro status stable Problem: Safety - Medical Restraint Goal: Remains free of injury from restraints (Restraint for Interference with Um Nurse) Description: INTERVENTIONS: 1. Determine that other, less restrictive measures have been tried or would not be effective beforeapplying the restraint 2. Evaluate the patient's condition at the time of restraint application 3. Inform patient/family regarding the reason for restraint 4. Q2H: Monitor safety, Vital signs, psychosocial status, signs of injury, skin integrity, circulation, neurovascular status in affected extremities, respiratory status, comfort, nutrition and hydration, hygiene, ROM, elimination needs 5. Doctor will be notified of restraint 6. RN properly applies restraints per physician order Outcome: Progressing Note: Evaluation of progress towards goal: restraint in place to defer patient from pulling out NG tube Problem: Multi-Drug Resistant Organism / Rule-Out Infection Prevention Goal: Prevent transmission of infection Description: INTERVENTIONS 1. Place patient in private room or in room with patient with same disease 2. Discard single-use items 3. Clean reusable equipment between patients 4. Wear gloves for direct and indirect contact with patient or contaminants 5. Change gloves between tasks and procedures 6. Wash hands before and after caring for each patient 7. Wear appropriate personal protective equipment in relation to the indicated isolation type 8. Place appropriate isolation signage on patient's door 9. Provide patient/ patient data entry representative with isolation education. Outcome: Progressing Note: Evaluation of progress towards goal: pt stable with transmission of infection Additional Comments: * PT/OT/PIPE BENDER - MARISOL Douglas - 04/11/2023 1:20 PM EST Occupational Therapy CANCEL - Deferred (off floor for peg placement) Associated attestation - Sue Rodriguez OTR/L - 04/11/2023 2:05 PM EST I have reviewed and agree with this note and education documentation for this visit. * Op Note - Annie Mathur MD - 04/11/2023 1:16 PM EST Operative Note Procedure Date: 04/01/2023 - 04/11/2023 Name: Ellen Chan : 1945 Surgeon: Dr. Dae Bo Resident: Annie Mathur MD PGY4, Marcin Tello MD PGY1 Pre-op Diagnosis: dysphagia Post-op Diagnosis: dysphagia Procedure: percutaneous gastrostomy tube placement Anesthesia Type: General Estimated Blood Loss: 2 ml Complications: none immediate Indications: Ellen Chan is a 78 y.o. female with a history of dysphagia secondary to thalamic stroke. The plan for percutaneous gastrostomy tube placement was discussed with the patient family. After a thorough explanation of the risks, benefits, and alternatives, the patient family agreed to proceed with the operation. Informed consent was obtained. Procedure details: The patient was taken back to the operating room and positioned supine with the head up on the bed.Cardiac monitoring was continued. MAC anesthesia was administered by the anesthesiology team and found to be adequate. A time-out was performed to confirm the correct patient, site, and operation. A bite block was placed and the endoscope was introduced into the oropharynx and slowly advanced into the esophagus and stomach. The anterior stomach wall was identified and a 1:1 motion with external palpation of the anterior abdominal wall was noted. Transillumination was also noted over this area. The left upper quadrant was prepped and draped and 1% lidocaine was used to anesthetize the skin overlying the planned PEG insertion site. An introducer needle with a sheath was inserted through the abdominal wall and visualized entering the gastric lumen. The needle was withdrawn, leaving the sheath in place. A wire was passed through the sheath and grasped with an endoscopic snare. The endoscopeand snare were then withdrawn. A 20 Kinyarwanda PEG tube was secured to the wire and pulled back through the mouth and esophagus into the stomach and against the gastric wall. The external bumper of the tube was secured at 4 cm. Sponge, lap, and instrument counts were correct x2 at the end of the procedure. The patient tolerated the procedure well and transferred to PACU in excellent condition. Dr. Bo was present for the entirety of the procedure. Plan: Ok to resume tube feeds 4-6 hours. Annie Mathur MD General Surgery PGY-3 04/11/2023 Associated attestation - Dae Bo MD - 04/11/2023 2:28 PM EST I was present for the felix components of the procedure. * PT/OT/PIPE BENDER - Mena Pleitez [facility] MANAGER - 04/11/2023 1:00 PM EST Physical Therapy CANCEL - Deferred (pt off floor for PEG tube placement) Associated attestation - Irvin Gibbs, PT - 04/11/2023 1:30 PM EST I have reviewed and agree with this note and education documentation for this visit. * Plan of Care - Cristopher Fuller RCP - 04/11/2023 8:24 AM EST Problem: Inadequate Airway Clearance Goal: Patient will maintain patent airway Description: INTERVENTIONS 1. Assess and monitor breath sounds, cough and sputum (if present) 2. Monitor respiratory rate and oxygen saturation 3. Collaborate with respiratory therapy to administer medication, oxygen, and suitable airway clearance techniques as ordered 4. Position patient for maximum ventilatory efficiency; elevate head of bed at least 30 degrees if appropriate 5. Provide adequate fluid intake to liquify secretions if appropriate 6. Suction secretions as indicated to maintain patent airway 7. Instruct patient to turn, cough, and deep breathe; encourage incentive spirometer if indicated Outcome: Completed Note: Evaluation of progress towards goal:Doing well with no need for thera vest * Plan of Care - Dariel Patiño RN - 04/10/2023 7:42 PM EST Problem: Pain Goal: Patient goal is pain score less than 4, able to rest, and participant in treatment plan as appropriate Description: INTERVENTIONS: 1. Encourage patient or legal data entry representative to report early pain and ask for pain medicine when needed 2. Assess pain using appropriate pain scale and include the scale used when documenting 3. Administer analgesics based on type and severity of pain and evaluate response within appropriate time frame 4. Implement non-pharmacological measures as appropriate and evaluate response 5. Consider cultural and social influences on pain and pain management 6. Notify LIP if interventions ineffective or patient reports new pain 7. Monitor vital signs including pulse ox, end-tidal CO2 based on pain intervention 8. Reassess pain per policy 9. Teach patient or legal data entry representative interventions for comforting Outcome: Progressing Note: Evaluation of progress towards goal: Patient appeared to be in no acute distress. Nonverbal pain scale performed. Continue to monitor. Problem: Safety Goal: Patient will be injury free during hospitalization Description: INTERVENTIONS: 1. Assess patient's risk for falls and implement fall prevention plan of care per policy 2. Provide and maintain a safe environment 3. Proper use of double Identifiers 4. Medication administration using the 5 rights 5. Hand hygiene 6. Specimens are labeled at the bedside 7. Instruct patient/ patient data entry representative about use of safety devices 8. Include patient/ patient data entry representative in decisions related to safety Outcome: Progressing Note: Evaluation of progress towards goal: Patient remains injury free through hospital stay at this time. Fall risk precautions in place as appropriate for patient. Will continue to monitor. Problem: Infection Goal: Absence of infection during hospitalization Description: Interventions: 1. Assess and monitor for signs and symptoms of infection 2. Monitor lab/diagnostic results 3. Monitor all insertion sites i.e., indwelling lines, tubes and drains 4. Monitor endotracheal (as able) and nasal secretions for changes in amount and color 5. Administer medications as ordered 6. Instruct and encourage patient and family to use good hand hygiene technique 7. Identify and instruct patient/patient data entry representative in use of appropriate isolation precautionsfor identified infection/symptoms 8. Provide and discuss with patient/patient data entry representative on educational MDRO sheet 9. Encourage and monitor nutritional status daily and consult commercial administrator if indicated 10. Implement neutropenic guidelines as needed 11. Review exposure to history of communicable disease and recent travel history on admission 12. Encourage annual influenza vaccine 13. Encourage pneumonia vaccine Outcome: Progressing Note: Evaluation of progress towards goal: Patient remains free from signs of infection at this time. Will continue to monitor. Problem: Knowledge Deficit Goal: Patient/patient data entry representative demonstrates understanding of disease process, treatment plan,medications, and discharge instructions Description: INTERVENTIONS 1. Complete learning assessment and assess knowledge base 2. Provide teaching at level of understanding 3. Provide teaching via preferred learning method(s) Outcome: Progressing Note: Evaluation of progress towards goal: Care plan discussed & goals for shift set with patient input appreciated. All questions answered. Problem: Discharge Planning Goal: Discharge to post-acute care, other facility, or home with appropriate resources Description: Patient's goal is: INTERVENTIONS 1. Conduct assessment to determine patient/family and health care team treatment goals, and need for post-acute services based on payer coverage, community resources, and patient preferences, and barriers to discharge 2. Coordinate with Social work, Care Navigation, and Utilization Review to arrange appropriate level of services according to patient's needs based on patient preference and payer coverage in collaboration with the physician and health care team 3. Address psychosocial, clinical, and financial barriers to discharge as identified in assessment in conjunction with the patient/family and health care team 4. Consult appropriate ancillary services (i.e.. PT/OT/ST, etc) as needed 5. Communicate with and update the patient/family, physician, and health care team regarding progress on the discharge plan 6. Identify discharge learning needs (meds, wound care, etc). 7. Arrange for needed discharge transportation as appropriate Outcome: Progressing Note: Evaluation of progress towards goal: Discharge planning in progress with appropriate multidisciplinary teams. Problem: Potential for Compromised Skin Integrity Goal: Skin integrity is maintained or improved Description: Patient's goal is: INTERVENTIONS 1. Perform initial skin assessment on admission and as needed 2. Turn patient every 2 hours and PRN 3. Relieve pressure to bony prominences 4. Avoid shearing 5. Keep skin clean and dry 6. Alternate a full bath with partial baths for elderly 7. Encourage use of lotion/moisturizer on skin 8. Monitor patient's hygiene practices 9. Float heels 10. Collaborate with interdisciplinary team and initiate plans and interventions as needed Outcome: Progressing Note: Evaluation of progress towards goal: Patient repositioned Q2 hrs. Monitor for s/s of skin breakdown and treat/communicate with treatment team as needed. Goal: Patient's nutritional intake is adequate Description: Patient's goal is: INTERVENTIONS 1. Assess and monitor food intake and supplements, patient food preferences, nausea, vomiting, labs, oral cavity (gums, teeth, tongue, mucosa), proper denture fit, and cultural beliefs 2. Monitor for signs of hypoglycemia and hyperglycemia 3. Collaborate with interdisciplinary team and initiate plan and interventions as ordered 4. Monitor patient's weight 5. Assist patient with meals/food selection 6. Assist patient with eating 7. Allow adequate time for meals 8. Provide pleasant environment during mealtime 9. Increase social contact during mealtimes 10. Plan activities to conserve energy 11. Encourage/perform oral hygiene as appropriate 12. Encourage patient to take dietary supplement as ordered 13. Collaborate with clinical commercial administrator 14. Include patient/ patient's data entry representative in decisions related to nutrition Outcome: Progressing Note: Evaluation of progress towards goal: Pt nutritional needs monitored and addressed as ordered by physician. Dietary recommendations appreciated as ordered. Problem: Urinary Incontinence Goal: Perineal skin integrity is maintained or improved Description: INTERVENTIONS 1. Assess genitourinary system, perineal skin, labs (urinalysis), and history of incontinence to include past management, aggravating, and alleviating factors 2. Keep skin clean and dry 3. Apply skin protectant 4. Develop skin care regimen 5. Provide privacy when changing patients incontinence device to maintain their dignity 6. Consider placing an indwelling catheter 7. Collaborate with interdisciplinary team and initiate plans and interventions as needed Outcome: Progressing Note: Evaluation of progress towards goal: Perineal skin integrity remains clean, dry, and intact with no redness or s/s of breakdown. Skin care regimen considered as needed. Collaboration with interdisciplinary teams considered as needed. Problem: Moderate - High Risk Fall Score Description: [place] Fall Score of =/> 25 or indicated by [facility] Assessment Goal: Patient should be free from fall Description: Interventions: 1. Olds to environment 2. Hourly rounds addressing the 4 P's (Pain, Positioning, Possessions, Potty) 3. Clear area of hazards (spills, clutter, electrical cords, unnecessary equipment) 4. Place equipment (bed & TV controls, call light, phone, urinal) within reach 5. Encourage patient to wear glasses and hearing aides as appropriate 6. Maintain bed in lowest position 7. Lock wheels on bed/wheelchair 8. Provide adequate lighting, including night light 9. Assess need for additional bedding, food/fluids, pain med's prior to sleep/routinely 10. Provide gripper slippers or personal non-skid footwear 11. Teach patient and patient data entry representative to maintain environment for safety and engage in all aspects of fall prevention program 12. Remind patient to call for help before getting out of bed 13. Initiate bed/chair/exit alarms supportive devices as appropriate, (chair wedge, no-skid floor mat, raised edge mattress, hip protectors) 14. Locate patient bed assignment for optimal visualization 15. Evaluate and identify Safe Patient Handling Equipment needs 16. Provide supervision when out of bed or chair 17. Utilize gait belt as needed to assist with ambulation 18. Place adaptive equipment (cane, walker) within reach 19. Request patient data entry representative bring adaptive equipment/mobility aids from home or obtain and provide as needed 20. Consult pharmacy regarding effects of med's affecting mobility, cognition, and alternatives 21. Obtain physician order for PT if risk factors associated with mobility are present 22. Obtain physician order for OT as appropriate 23. Utilize diversional activities 24. Educate patient and patient data entry representative how to maintain a safe environment during visitationtimes (notify nurse prior to leaving bedside) 25. Consider appropriateness of medical or non-medical driver 26. Set up voiding schedule as appropriate (every 2 hours) Outcome: Progressing Note: Evaluation of progress towards goal: Fall risk assessment preformed and safety measures in place. Education given to family/patient. Will continue to monitor. Problem: Neurological Deficit Goal: Neurological status is stable or improving Description: Patient's goal is: INTERVENTIONS 1. Complete Neurological assessment as indicated/ordered 2. Initiate measures to prevent increased intracranial pressure 3. Monitor and assess patient's level of consciousness, motor function, sensory function, and levelof assistance needed for ADLs 4. Monitor and report changes from baseline 5. Maintain blood pressure and fluid volume within ordered parameters to optimize cerebral perfusion and minimize risk of hemorrhage 6. Monitor labs and diagnostic tests 7. Administer anti-seizure medications as ordered 8. Maintain airway, patient safety and administer oxygen as ordered 9. Monitor patient for seizure activity, document and report duration and description of seizure toLIP 10. If seizure occurs, turn patient to side and suction secretions as needed 11. Reorient patient post seizure 12. Seizure pads on all 4 side rails 13. Instruct patient/family to notify RN of any seizure activity 14. Instruct patient/family to call for assistance with activity based on assessment 15. Utilize bleeding precautions if thrombolytic given Outcome: Progressing Note: Evaluation of progress towards goal: Neurostatus maintained Problem: Activity Intolerance/Impaired Mobility Goal: Mobility/activity is maintained at optimum level for patient Description: Patient's goal is: INTERVENTIONS 1. Assess and monitor patient barriers to mobility and need for assistive/adaptive devices 2. Assess patient's emotional response to limitations 3. Collaborate with interdisciplinary teams and initiate plans and interventions as ordered 4. Encourage independent activity per tolerance 5. Maintain proper body alignment 6. Perform active/passive ROM as tolerated/ordered 7. Coordinate activities to conserve energy 8. Reposition patient 9. Ensure adequate rest/sleep time Outcome: Progressing Note: Evaluation of progress towards goal: A mobility maintained Problem: Communication Impairment Goal: Ability to express needs and understand communication Description: INTERVENTIONS 1. Assess patient's communication skills and ability to understand information 2. Provide alternate method of communication if needed i.e. ipad, sign board, pen/paper 3. Collaborate with Speech Therapy to develop effective communication strategies 4. Include patient/patient data entry representative in decisions related to communication Outcome: Progressing Note: Evaluation of progress towards goal: Patient/family able to express needs and understands communication at this time. Problem: Potential for Aspiration Goal: Patient's risk of aspiration is minimized Description: INTERVENTIONS 1. Assess and monitor vital signs, respiratory status, and labs (WBC) 2. Monitor for signs of aspiration (tachypnea, cough, rales, wheezing, cyanosis, fever) 3. Assess and monitor patient's ability to swallow 4. Place patient up in chair to eat if possible 5. Elevate head of bed 90 degrees to eat if unable to get patient up into chair 6. Supervise patient during oral intake 7. Instruct patient to take small bites 8. Instruct patient to take small single sips when taking liquids 9. Follow patient-specific strategies generated by speech pathologist 10. Complete bedside swallow screen if appropriate and take actions as indicated. 11. Administer prescribed medications and monitor effects Outcome: Progressing Note: Evaluation of progress towards goal: Risk for aspiration assessed continuously for patient. Problem: Self Care Deficit Goal: Return ADL status to a safe level of function Description: Patient's goal is: INTERVENTIONS 1. Administer medication as ordered 2. Assess ADL deficits and provide assistive devices as needed 3. Obtain PT/OT consults as needed 4. Assist and instruct patient to increase activity and self care as tolerated Outcome: Progressing Note: Evaluation of progress towards goal: ADL assessments performed Problem: Safety - Medical Restraint Goal: Remains free of injury from restraints (Restraint for Interference with Um Nurse) Description: INTERVENTIONS: 1. Determine that other, less restrictive measures have been tried or would not be effective beforeapplying the restraint 2. Evaluate the patient's condition at the time of restraint application 3. Inform patient/family regarding the reason for restraint 4. Q2H: Monitor safety, Vital signs, psychosocial status, signs of injury, skin integrity, circulation, neurovascular status in affected extremities, respiratory status, comfort, nutrition and hydration, hygiene, ROM, elimination needs 5. Doctor will be notified of restraint 6. RN properly applies restraints per physician order Outcome: Progressing Note: Evaluation of progress towards goal: Patient remains free from injury from restraints at thistime. Goal: Free from restraint(s) (Restraint for Interference with Um Nurse) Description: INTERVENTIONS: 1. ONCE/SHIFT or MINIMUM Q12H: Assess and document the continuing need for restraints 2. Order is valid for the duration of the episode of care 3. Discontinue at the earliest possible time once the reason for restraints no longer exists 4. Identify and implement measures to help patient regain control 5. Food, fluids, and toilet offered at a minimum of every 2 hours 6. RN modifies the patient's plan of care by entering a problem statement related to safety; individualizes the safety outcome Outcome: Progressing Note: Evaluation of progress towards goal: Patient remains in need of restraints at this time due to the risk for pulling lines/tubes out. Education given. Family aware of need at this time. Problem: Multi-Drug Resistant Organism / Rule-Out Infection Prevention Goal: Prevent transmission of infection Description: INTERVENTIONS 1. Place patient in private room or in room with patient with same disease 2. Discard single-use items 3. Clean reusable equipment between patients 4. Wear gloves for direct and indirect contact with patient or contaminants 5. Change gloves between tasks and procedures 6. Wash hands before and after caring for each patient 7. Wear appropriate personal protective equipment in relation to the indicated isolation type 8. Place appropriate isolation signage on patient's door 9. Provide patient/ patient data entry representative with isolation education. Outcome: Progressing Note: Evaluation of progress towards goal: Patient remains free from signs of infection at this time. Will continue to monitor. Problem: Inadequate Airway Clearance Goal: Patient will maintain patent airway Description: INTERVENTIONS 1. Assess and monitor breath sounds, cough and sputum (if present) 2. Monitor respiratory rate and oxygen saturation 3. Collaborate with respiratory therapy to administer medication, oxygen, and suitable airway clearance techniques as ordered 4. Position patient for maximum ventilatory efficiency; elevate head of bed at least 30 degrees if appropriate 5. Provide adequate fluid intake to liquify secretions if appropriate 6. Suction secretions as indicated to maintain patent airway 7. Instruct patient to turn, cough, and deep breathe; encourage incentive spirometer if indicated Outcome: Progressing Note: Evaluation of progress towards goal: Airway maintained * Plan of Care - Nayely Zackary [facility] - 04/10/2023 7:27 PM EST Problem: Inadequate Airway Clearance Goal: Patient will maintain patent airway Description: INTERVENTIONS 1. Assess and monitor breath sounds, cough and sputum (if present) 2. Monitor respiratory rate and oxygen saturation 3. Collaborate with respiratory therapy to administer medication, oxygen, and suitable airway clearance techniques as ordered 4. Position patient for maximum ventilatory efficiency; elevate head of bed at least 30 degrees if appropriate 5. Provide adequate fluid intake to liquify secretions if appropriate 6. Suction secretions as indicated to maintain patent airway 7. Instruct patient to turn, cough, and deep breathe; encourage incentive spirometer if indicated Outcome: Progressing Note: Evaluation of progress towards goal: Pt remains stable on HF 40L 40%. 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[facility]) Last Chest XRAY: Reviewed Pulmonary History: see above RT Reassessment Due In: 12 hours Bronchodilator Respiratory Rate Level 2: Less than 20 Dyspnea Level 2: Periodic SOB Breath Sounds Level 1: Clear Respiratory History Level 1: None Oxygen to Keep SpO2 Greater Than Or Equal To 92% Level 2: 1-3 LPM 25%-35% or NIV 41 - 50% Peak Flow ([employer] Only) Home Therapy: Not Applicable Patients Current Level & Intervention: 2 Three times daily and Q4 PRN for wheezing Broncho-Pulmonary Hygiene Level of Movement Level 3: Low level of mobility Breath Sounds Level 1: Slightly diminished or clear Cough Level 1: Strong, effective Chest X-Ray Level 1: Possible signs of consolidation and/or atelectasis or clear ; No CXR available Sputum Production Level 1: None or small amount of thin or watery secretions with effective cough History & Physical Level 1: None or New onset of bronchitis or existing chronic pulmonary condition. (not in an exacerbation) SpO2 to O2 Need Level 1: >92% on room air or NC < 3 lpm Patients Current Level & Intervention: 1 Teach/instruct patient to cough and deep breathe Q1-2 hours * Discharge Planning Note - Sabina Turk - 04/10/2023 12:34 PM EST DISCHARGE PLANNING NOTE Sent updates to [facility] (P#: ; F#: ) * Discharge Planning Note - GAURAV Gandhi - 04/10/2023 12:07 PM EST DISCHARGE PLANNING NOTE VALERIE received call from pt gómez LOCK, family is requesting IP rehab placement at [facility] rehab. VALERIE explained to pt gómez that currently does not appear pt will meet criteria for IPR. VALERIE explained the difference between IPR and SNF. VALERIE did request PM&R consult per family request. Will see what they recommend and will have therapy work with pt again and see how pt is doing. Otherwise [facility] has accepted pt. Awaiting nutrition plan, possible PEG placement. - GAURAV Gandhi 04/10/23 12:09 PM * Plan of Care - Angi Belle RN - 04/10/2023 7:13 AM EST Problem: Pain Goal: Patient goal is pain score less than 4, able to rest, and participant in treatment plan as appropriate Description: INTERVENTIONS: 1. Encourage patient or legal data entry representative to report early pain and ask for pain medicine when needed 2. Assess pain using appropriate pain scale and include the scale used when documenting 3. Administer analgesics based on type and severity of pain and evaluate response within appropriate time frame 4. Implement non-pharmacological measures as appropriate and evaluate response 5. Consider cultural and social influences on pain and pain management 6. Notify LIP if interventions ineffective or patient reports new pain 7. Monitor vital signs including pulse ox, end-tidal CO2 based on pain intervention 8. Reassess pain per policy 9. Teach patient or legal data entry representative interventions for comforting Outcome: Progressing Note: Evaluation of progress towards goal: Patient states that pain is well controlled with PRN analgesics, reports a pain score of 0/10 at this time. Will continue to monitor for s/s of pain. Problem: Safety Goal: Patient will be injury free during hospitalization Description: INTERVENTIONS: 1. Assess patient's risk for falls and implement fall prevention plan of care per policy 2. Provide and maintain a safe environment 3. Proper use of double Identifiers 4. Medication administration using the 5 rights 5. Hand hygiene 6. Specimens are labeled at the bedside 7. Instruct patient/ patient data entry representative about use of safety devices 8. Include patient/ patient data entry representative in decisions related to safety Outcome: Progressing Note: Evaluation of progress towards goal: Patient remains free from injury, hourly rounds maintained. Problem: Infection Goal: Absence of infection during hospitalization Description: Interventions: 1. Assess and monitor for signs and symptoms of infection 2. Monitor lab/diagnostic results 3. Monitor all insertion sites i.e., indwelling lines, tubes and drains 4. Monitor endotracheal (as able) and nasal secretions for changes in amount and color 5. Administer medications as ordered 6. Instruct and encourage patient and family to use good hand hygiene technique 7. Identify and instruct patient/patient data entry representative in use of appropriate isolation precautionsfor identified infection/symptoms 8. Provide and discuss with patient/patient data entry representative on educational MDRO sheet 9. Encourage and monitor nutritional status daily and consult commercial administrator if indicated 10. Implement neutropenic guidelines as needed 11. Review exposure to history of communicable disease and recent travel history on admission 12. Encourage annual influenza vaccine 13. Encourage pneumonia vaccine Outcome: Progressing Note: Evaluation of progress towards goal: Patient remains free from signs and symptoms of infection, patient is afebrile, WBC within normal limits. Problem: Knowledge Deficit Goal: Patient/patient data entry representative demonstrates understanding of disease process, treatment plan,medications, and discharge instructions Description: INTERVENTIONS 1. Complete learning assessment and assess knowledge base 2. Provide teaching at level of understanding 3. Provide teaching via preferred learning method(s) Outcome: Progressing Note: Evaluation of progress towards goal: Patient along with is eager to understanding of plan of care, education provided q shift and PRN. Will continue to reinforce. Problem: Discharge Planning Goal: Discharge to post-acute care, other facility, or home with appropriate resources Description: Patient's goal is: INTERVENTIONS 1. Conduct assessment to determine patient/family and health care team treatment goals, and need for post-acute services based on payer coverage, community resources, and patient preferences, and barriers to discharge 2. Coordinate with Social work, Care Navigation, and Utilization Review to arrange appropriate level of services according to patient's needs based on patient preference and payer coverage in collaboration with the physician and health care team 3. Address psychosocial, clinical, and financial barriers to discharge as identified in assessment in conjunction with the patient/family and health care team 4. Consult appropriate ancillary services (i.e.. PT/OT/ST, etc) as needed 5. Communicate with and update the patient/family, physician, and health care team regarding progress on the discharge plan 6. Identify discharge learning needs (meds, wound care, etc). 7. Arrange for needed discharge transportation as appropriate Outcome: Progressing Note: Evaluation of progress towards goal: Discharge planning in progress, not yet appropriate for discharge. Will continue to evaluate barriers. Problem: Potential for Compromised Skin Integrity Goal: Skin integrity is maintained or improved Description: Patient's goal is: INTERVENTIONS 1. Perform initial skin assessment on admission and as needed 2. Turn patient every 2 hours and PRN 3. Relieve pressure to bony prominences 4. Avoid shearing 5. Keep skin clean and dry 6. Alternate a full bath with partial baths for elderly 7. Encourage use of lotion/moisturizer on skin 8. Monitor patient's hygiene practices 9. Float heels 10. Collaborate with interdisciplinary team and initiate plans and interventions as needed Outcome: Progressing Note: Evaluation of progress towards goal: No new skin breakdown noted, turned q 2 and PRN. Skin isclean, dry, and intact. Goal: Patient's nutritional intake is adequate Description: Patient's goal is: INTERVENTIONS 1. Assess and monitor food intake and supplements, patient food preferences, nausea, vomiting, labs, oral cavity (gums, teeth, tongue, mucosa), proper denture fit, and cultural beliefs 2. Monitor for signs of hypoglycemia and hyperglycemia 3. Collaborate with interdisciplinary team and initiate plan and interventions as ordered 4. Monitor patient's weight 5. Assist patient with meals/food selection 6. Assist patient with eating 7. Allow adequate time for meals 8. Provide pleasant environment during mealtime 9. Increase social contact during mealtimes 10. Plan activities to conserve energy 11. Encourage/perform oral hygiene as appropriate 12. Encourage patient to take dietary supplement as ordered 13. Collaborate with clinical commercial administrator 14. Include patient/ patient's data entry representative in decisions related to nutrition Outcome: Progressing Note: Evaluation of progress towards goal: Patient tolerating NPO diet for ultrasound/scan, no nausea, vomiting, or discomfort noted. Bowel sounds active. Will continue to monitor. Problem: Urinary Incontinence Goal: Perineal skin integrity is maintained or improved Description: INTERVENTIONS 1. Assess genitourinary system, perineal skin, labs (urinalysis), and history of incontinence to include past management, aggravating, and alleviating factors 2. Keep skin clean and dry 3. Apply skin protectant 4. Develop skin care regimen 5. Provide privacy when changing patients incontinence device to maintain their dignity 6. Consider placing an indwelling catheter 7. Collaborate with interdisciplinary team and initiate plans and interventions as needed Outcome: Progressing Note: Evaluation of progress towards goal: No new skin breakdown noted, turned q 2 and PRN. Skin isclean, dry, and intact. Problem: Moderate - High Risk Fall Score Description: Cordova Fall Score of =/> 25 or indicated by [facility] Assessment Goal: Patient should be free from fall Description: Interventions: 1. Olds to environment 2. Hourly rounds addressing the 4 P's (Pain, Positioning, Possessions, Potty) 3. Clear area of hazards (spills, clutter, electrical cords, unnecessary equipment) 4. Place equipment (bed & TV controls, call light, phone, urinal) within reach 5. Encourage patient to wear glasses and hearing aides as appropriate 6. Maintain bed in lowest position 7. Lock wheels on bed/wheelchair 8. Provide adequate lighting, including night light 9. Assess need for additional bedding, food/fluids, pain med's prior to sleep/routinely 10. Provide gripper slippers or personal non-skid footwear 11. Teach patient and patient data entry representative to maintain environment for safety and engage in all aspects of fall prevention program 12. Remind patient to call for help before getting out of bed 13. Initiate bed/chair/exit alarms supportive devices as appropriate, (chair wedge, no-skid floor mat, raised edge mattress, hip protectors) 14. Locate patient bed assignment for optimal visualization 15. Evaluate and identify Safe Patient Handling Equipment needs 16. Provide supervision when out of bed or chair 17. Utilize gait belt as needed to assist with ambulation 18. Place adaptive equipment (cane, walker) within reach 19. Request patient data entry representative bring adaptive equipment/mobility aids from home or obtain and provide as needed 20. Consult pharmacy regarding effects of med's affecting mobility, cognition, and alternatives 21. Obtain physician order for PT if risk factors associated with mobility are present 22. Obtain physician order for OT as appropriate 23. Utilize diversional activities 24. Educate patient and patient data entry representative how to maintain a safe environment during visitationtimes (notify nurse prior to leaving bedside) 25. Consider appropriateness of medical or non-medical driver 26. Set up voiding schedule as appropriate (every 2 hours) Outcome: Progressing Note: Evaluation of progress towards goal: Patient remains free from falls and injury, fall risk IDband on, fall prevention education and precautions provided and in place. Patient verbalizes and demonstrates understanding, hourly rounds maintained. Problem: Neurological Deficit Goal: Neurological status is stable or improving Description: Patient's goal is: INTERVENTIONS 1. Complete Neurological assessment as indicated/ordered 2. Initiate measures to prevent increased intracranial pressure 3. Monitor and assess patient's level of consciousness, motor function, sensory function, and levelof assistance needed for ADLs 4. Monitor and report changes from baseline 5. Maintain blood pressure and fluid volume within ordered parameters to optimize cerebral perfusion and minimize risk of hemorrhage 6. Monitor labs and diagnostic tests 7. Administer anti-seizure medications as ordered 8. Maintain airway, patient safety and administer oxygen as ordered 9. Monitor patient for seizure activity, document and report duration and description of seizure toLIP 10. If seizure occurs, turn patient to side and suction secretions as needed 11. Reorient patient post seizure 12. Seizure pads on all 4 side rails 13. Instruct patient/family to notify RN of any seizure activity 14. Instruct patient/family to call for assistance with activity based on assessment 15. Utilize bleeding precautions if thrombolytic given Outcome: Progressing Note: Evaluation of progress towards goal: Patient's neurological status is stable at this time. Will continue to reassess. Problem: Safety - Medical Restraint Goal: Remains free of injury from restraints (Restraint for Interference with Um Nurse) Description: INTERVENTIONS: 1. Determine that other, less restrictive measures have been tried or would not be effective beforeapplying the restraint 2. Evaluate the patient's condition at the time of restraint application 3. Inform patient/family regarding the reason for restraint 4. Q2H: Monitor safety, Vital signs, psychosocial status, signs of injury, skin integrity, circulation, neurovascular status in affected extremities, respiratory status, comfort, nutrition and hydration, hygiene, ROM, elimination needs 5. Doctor will be notified of restraint 6. RN properly applies restraints per physician order Outcome: Progressing Note: Evaluation of progress towards goal: Restraints continue, patient continues to pull at lines,tubes, and drains. Q 2 hour assessments for need, safety, circulation, and skin continue. Patient remains restrained at this time, active order in place. Goal: Free from restraint(s) (Restraint for Interference with Um Nurse) Description: INTERVENTIONS: 1. ONCE/SHIFT or MINIMUM Q12H: Assess and document the continuing need for restraints 2. Order is valid for the duration of the episode of care 3. Discontinue at the earliest possible time once the reason for restraints no longer exists 4. Identify and implement measures to help patient regain control 5. Food, fluids, and toilet offered at a minimum of every 2 hours 6. RN modifies the patient's plan of care by entering a problem statement related to safety; individualizes the safety outcome Outcome: Progressing Note: Evaluation of progress towards goal: Restraints continue, patient continues to pull at lines,tubes, and drains. Q 2 hour assessments for need, safety, circulation, and skin continue. Patient remains restrained at this time, active order in place. * Plan of Care - Lizzette Mercado RCP - 04/10/2023 5:23 AM EST Problem: Inadequate Airway Clearance Goal: Patient will maintain patent airway Description: INTERVENTIONS 1. Assess and monitor breath sounds, cough and sputum (if present) 2. Monitor respiratory rate and oxygen saturation 3. Collaborate with respiratory therapy to administer medication, oxygen, and suitable airway clearance techniques as ordered 4. Position patient for maximum ventilatory efficiency; elevate head of bed at least 30 degrees if appropriate 5. Provide adequate fluid intake to liquify secretions if appropriate 6. Suction secretions as indicated to maintain patent airway 7. Instruct patient to turn, cough, and deep breathe; encourage incentive spirometer if indicated Outcome: Progressing Note: Evaluation of progress towards goal: Pt remains on HFNC. Continuing to monitor. 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[facility]) Last Chest XRAY: Reviewed Pulmonary History: former smoker RT Reassessment Due In: 12 hours Bronchodilator Respiratory Rate Level 3: 20-25 Dyspnea Level 1: No SOB Breath Sounds Level 2: Diminished and/or faint wheezes Respiratory History Level 2: Positive risk factors including but not limited to: History of smoking; History of pulmonary complications ; Smoke inhalation, physical/chemical trauma to the lung or upper airway Oxygen to Keep SpO2 Greater Than Or Equal To 92% Level 3: 4-6 LPM or >35% - <50% ; NIV 51 - 65% Peak Flow ([facility] Only) Home Therapy: Not Applicable Patients Current Level & Intervention: 3 Four times daily and Q4 PRN as needed for wheezing * Plan of Care - Dariel Patiño RN - 04/09/2023 7:35 PM EST Problem: Pain Goal: Patient goal is pain score less than 4, able to rest, and participant in treatment plan as appropriate Description: INTERVENTIONS: 1. Encourage patient or legal data entry representative to report early pain and ask for pain medicine when needed 2. Assess pain using appropriate pain scale and include the scale used when documenting 3. Administer analgesics based on type and severity of pain and evaluate response within appropriate time frame 4. Implement non-pharmacological measures as appropriate and evaluate response 5. Consider cultural and social influences on pain and pain management 6. Notify LIP if interventions ineffective or patient reports new pain 7. Monitor vital signs including pulse ox, end-tidal CO2 based on pain intervention 8. Reassess pain per policy 9. Teach patient or legal data entry representative interventions for comforting Outcome: Progressing Note: Evaluation of progress towards goal: Patient appeared to be in no acute distress. Nonverbal pain scale performed. Continue to monitor. Problem: Safety Goal: Patient will be injury free during hospitalization Description: INTERVENTIONS: 1. Assess patient's risk for falls and implement fall prevention plan of care per policy 2. Provide and maintain a safe environment 3. Proper use of double Identifiers 4. Medication administration using the 5 rights 5. Hand hygiene 6. Specimens are labeled at the bedside 7. Instruct patient/ patient data entry representative about use of safety devices 8. Include patient/ patient data entry representative in decisions related to safety Outcome: Progressing Note: Evaluation of progress towards goal: Patient remains injury free through hospital stay at this time. Fall risk precautions in place as appropriate for patient. Will continue to monitor. Problem: Infection Goal: Absence of infection during hospitalization Description: Interventions: 1. Assess and monitor for signs and symptoms of infection 2. Monitor lab/diagnostic results 3. Monitor all insertion sites i.e., indwelling lines, tubes and drains 4. Monitor endotracheal (as able) and nasal secretions for changes in amount and color 5. Administer medications as ordered 6. Instruct and encourage patient and family to use good hand hygiene technique 7. Identify and instruct patient/patient data entry representative in use of appropriate isolation precautionsfor identified infection/symptoms 8. Provide and discuss with patient/patient data entry representative on educational MDRO sheet 9. Encourage and monitor nutritional status daily and consult commercial administrator if indicated 10. Implement neutropenic guidelines as needed 11. Review exposure to history of communicable disease and recent travel history on admission 12. Encourage annual influenza vaccine 13. Encourage pneumonia vaccine Outcome: Progressing Note: Evaluation of progress towards goal: Patient remains free from signs of infection at this time. Will continue to monitor. Problem: Knowledge Deficit Goal: Patient/patient data entry representative demonstrates understanding of disease process, treatment plan,medications, and discharge instructions Description: INTERVENTIONS 1. Complete learning assessment and assess knowledge base 2. Provide teaching at level of understanding 3. Provide teaching via preferred learning method(s) Outcome: Progressing Note: Evaluation of progress towards goal: Care plan discussed & goals for shift set with patient input appreciated. All questions answered. Problem: Discharge Planning Goal: Discharge to post-acute care, other facility, or home with appropriate resources Description: Patient's goal is: INTERVENTIONS 1. Conduct assessment to determine patient/family and health care team treatment goals, and need for post-acute services based on payer coverage, community resources, and patient preferences, and barriers to discharge 2. Coordinate with Social work, Care Navigation, and Utilization Review to arrange appropriate level of services according to patient's needs based on patient preference and payer coverage in collaboration with the physician and health care team 3. Address psychosocial, clinical, and financial barriers to discharge as identified in assessment in conjunction with the patient/family and health care team 4. Consult appropriate ancillary services (i.e.. PT/OT/ST, etc) as needed 5. Communicate with and update the patient/family, physician, and health care team regarding progress on the discharge plan 6. Identify discharge learning needs (meds, wound care, etc). 7. Arrange for needed discharge transportation as appropriate Outcome: Progressing Note: Evaluation of progress towards goal: Discharge planning in progress with appropriate multidisciplinary teams. Problem: Potential for Compromised Skin Integrity Goal: Skin integrity is maintained or improved Description: Patient's goal is: INTERVENTIONS 1. Perform initial skin assessment on admission and as needed 2. Turn patient every 2 hours and PRN 3. Relieve pressure to bony prominences 4. Avoid shearing 5. Keep skin clean and dry 6. Alternate a full bath with partial baths for elderly 7. Encourage use of lotion/moisturizer on skin 8. Monitor patient's hygiene practices 9. Float heels 10. Collaborate with interdisciplinary team and initiate plans and interventions as needed Outcome: Progressing Note: Evaluation of progress towards goal: Patient repositioned Q2 hrs. Monitor for s/s of skin breakdown and treat/communicate with treatment team as needed. Goal: Patient's nutritional intake is adequate Description: Patient's goal is: INTERVENTIONS 1. Assess and monitor food intake and supplements, patient food preferences, nausea, vomiting, labs, oral cavity (gums, teeth, tongue, mucosa), proper denture fit, and cultural beliefs 2. Monitor for signs of hypoglycemia and hyperglycemia 3. Collaborate with interdisciplinary team and initiate plan and interventions as ordered 4. Monitor patient's weight 5. Assist patient with meals/food selection 6. Assist patient with eating 7. Allow adequate time for meals 8. Provide pleasant environment during mealtime 9. Increase social contact during mealtimes 10. Plan activities to conserve energy 11. Encourage/perform oral hygiene as appropriate 12. Encourage patient to take dietary supplement as ordered 13. Collaborate with clinical commercial administrator 14. Include patient/ patient's data entry representative in decisions related to nutrition Outcome: Progressing Note: Evaluation of progress towards goal: Pt nutritional needs monitored and addressed as ordered by physician. Dietary recommendations appreciated as ordered. Problem: Urinary Incontinence Goal: Perineal skin integrity is maintained or improved Description: INTERVENTIONS 1. Assess genitourinary system, perineal skin, labs (urinalysis), and history of incontinence to include past management, aggravating, and alleviating factors 2. Keep skin clean and dry 3. Apply skin protectant 4. Develop skin care regimen 5. Provide privacy when changing patients incontinence device to maintain their dignity 6. Consider placing an indwelling catheter 7. Collaborate with interdisciplinary team and initiate plans and interventions as needed Outcome: Progressing Note: Evaluation of progress towards goal: Perineal skin integrity remains clean, dry, and intact with no redness or s/s of breakdown. Skin care regimen considered as needed. Collaboration with interdisciplinary teams considered as needed. Problem: Moderate - High Risk Fall Score Description: Cordova Fall Score of =/> 25 or indicated by [facility] Assessment Goal: Patient should be free from fall Description: Interventions: 1. Olds to environment 2. Hourly rounds addressing the 4 P's (Pain, Positioning, Possessions, Potty) 3. Clear area of hazards (spills, clutter, electrical cords, unnecessary equipment) 4. Place equipment (bed & TV controls, call light, phone, urinal) within reach 5. Encourage patient to wear glasses and hearing aides as appropriate 6. Maintain bed in lowest position 7. Lock wheels on bed/wheelchair 8. Provide adequate lighting, including night light 9. Assess need for additional bedding, food/fluids, pain med's prior to sleep/routinely 10. Provide gripper slippers or personal non-skid footwear 11. Teach patient and patient data entry representative to maintain environment for safety and engage in all aspects of fall prevention program 12. Remind patient to call for help before getting out of bed 13. Initiate bed/chair/exit alarms supportive devices as appropriate, (chair wedge, no-skid floor mat, raised edge mattress, hip protectors) 14. Locate patient bed assignment for optimal visualization 15. Evaluate and identify Safe Patient Handling Equipment needs 16. Provide supervision when out of bed or chair 17. Utilize gait belt as needed to assist with ambulation 18. Place adaptive equipment (cane, walker) within reach 19. Request patient data entry representative bring adaptive equipment/mobility aids from home or obtain and provide as needed 20. Consult pharmacy regarding effects of med's affecting mobility, cognition, and alternatives 21. Obtain physician order for PT if risk factors associated with mobility are present 22. Obtain physician order for OT as appropriate 23. Utilize diversional activities 24. Educate patient and patient data entry representative how to maintain a safe environment during visitationtimes (notify nurse prior to leaving bedside) 25. Consider appropriateness of medical or non-medical driver 26. Set up voiding schedule as appropriate (every 2 hours) Outcome: Progressing Note: Evaluation of progress towards goal: Fall risk assessment preformed and safety measures in place. Education given to family/patient. Will continue to monitor. Problem: Neurological Deficit Goal: Neurological status is stable or improving Description: Patient's goal is: INTERVENTIONS 1. Complete Neurological assessment as indicated/ordered 2. Initiate measures to prevent increased intracranial pressure 3. Monitor and assess patient's level of consciousness, motor function, sensory function, and levelof assistance needed for ADLs 4. Monitor and report changes from baseline 5. Maintain blood pressure and fluid volume within ordered parameters to optimize cerebral perfusion and minimize risk of hemorrhage 6. Monitor labs and diagnostic tests 7. Administer anti-seizure medications as ordered 8. Maintain airway, patient safety and administer oxygen as ordered 9. Monitor patient for seizure activity, document and report duration and description of seizure toLIP 10. If seizure occurs, turn patient to side and suction secretions as needed 11. Reorient patient post seizure 12. Seizure pads on all 4 side rails 13. Instruct patient/family to notify RN of any seizure activity 14. Instruct patient/family to call for assistance with activity based on assessment 15. Utilize bleeding precautions if thrombolytic given Outcome: Progressing Note: Evaluation of progress towards goal: Neuro status maintained Problem: Activity Intolerance/Impaired Mobility Goal: Mobility/activity is maintained at optimum level for patient Description: Patient's goal is: INTERVENTIONS 1. Assess and monitor patient barriers to mobility and need for assistive/adaptive devices 2. Assess patient's emotional response to limitations 3. Collaborate with interdisciplinary teams and initiate plans and interventions as ordered 4. Encourage independent activity per tolerance 5. Maintain proper body alignment 6. Perform active/passive ROM as tolerated/ordered 7. Coordinate activities to conserve energy 8. Reposition patient 9. Ensure adequate rest/sleep time Outcome: Progressing Note: Evaluation of progress towards goal: Activity maintained Problem: Communication Impairment Goal: Ability to express needs and understand communication Description: INTERVENTIONS 1. Assess patient's communication skills and ability to understand information 2. Provide alternate method of communication if needed i.e. ipad, sign board, pen/paper 3. Collaborate with Speech Therapy to develop effective communication strategies 4. Include patient/patient data entry representative in decisions related to communication Outcome: Progressing Note: Evaluation of progress towards goal: Patient/family able to express needs and understands communication at this time. Problem: Potential for Aspiration Goal: Patient's risk of aspiration is minimized Description: INTERVENTIONS 1. Assess and monitor vital signs, respiratory status, and labs (WBC) 2. Monitor for signs of aspiration (tachypnea, cough, rales, wheezing, cyanosis, fever) 3. Assess and monitor patient's ability to swallow 4. Place patient up in chair to eat if possible 5. Elevate head of bed 90 degrees to eat if unable to get patient up into chair 6. Supervise patient during oral intake 7. Instruct patient to take small bites 8. Instruct patient to take small single sips when taking liquids 9. Follow patient-specific strategies generated by speech pathologist 10. Complete bedside swallow screen if appropriate and take actions as indicated. 11. Administer prescribed medications and monitor effects Outcome: Progressing Note: Evaluation of progress towards goal: Aspiration precautions in place Problem: Self Care Deficit Goal: Return ADL status to a safe level of function Description: Patient's goal is: INTERVENTIONS 1. Administer medication as ordered 2. Assess ADL deficits and provide assistive devices as needed 3. Obtain PT/OT consults as needed 4. Assist and instruct patient to increase activity and self care as tolerated Outcome: Progressing Note: Evaluation of progress towards goal: ADL functions monitored Problem: Safety - Medical Restraint Goal: Remains free of injury from restraints (Restraint for Interference with Um Nurse) Description: INTERVENTIONS: 1. Determine that other, less restrictive measures have been tried or would not be effective beforeapplying the restraint 2. Evaluate the patient's condition at the time of restraint application 3. Inform patient/family regarding the reason for restraint 4. Q2H: Monitor safety, Vital signs, psychosocial status, signs of injury, skin integrity, circulation, neurovascular status in affected extremities, respiratory status, comfort, nutrition and hydration, hygiene, ROM, elimination needs 5. Doctor will be notified of restraint 6. RN properly applies restraints per physician order Outcome: Progressing Note: Evaluation of progress towards goal: Patient remains free from injury from restraints at thistime. Goal: Free from restraint(s) (Restraint for Interference with Um Nurse) Description: INTERVENTIONS: 1. ONCE/SHIFT or MINIMUM Q12H: Assess and document the continuing need for restraints 2. Order is valid for the duration of the episode of care 3. Discontinue at the earliest possible time once the reason for restraints no longer exists 4. Identify and implement measures to help patient regain control 5. Food, fluids, and toilet offered at a minimum of every 2 hours 6. RN modifies the patient's plan of care by entering a problem statement related to safety; individualizes the safety outcome Outcome: Progressing Note: Evaluation of progress towards goal: Patient remains in need of restraints at this time due to the risk for pulling lines/tubes out. Education given. Family aware of need at this time. Problem: Multi-Drug Resistant Organism / Rule-Out Infection Prevention Goal: Prevent transmission of infection Description: INTERVENTIONS 1. Place patient in private room or in room with patient with same disease 2. Discard single-use items 3. Clean reusable equipment between patients 4. Wear gloves for direct and indirect contact with patient or contaminants 5. Change gloves between tasks and procedures 6. Wash hands before and after caring for each patient 7. Wear appropriate personal protective equipment in relation to the indicated isolation type 8. Place appropriate isolation signage on patient's door 9. Provide patient/ patient data entry representative with isolation education. Outcome: Progressing Note: Evaluation of progress towards goal: Patient remains free from signs of infection at this time. Will continue to monitor. Problem: Inadequate Airway Clearance Goal: Patient will maintain patent airway Description: INTERVENTIONS 1. Assess and monitor breath sounds, cough and sputum (if present) 2. Monitor respiratory rate and oxygen saturation 3. Collaborate with respiratory therapy to administer medication, oxygen, and suitable airway clearance techniques as ordered 4. Position patient for maximum ventilatory efficiency; elevate head of bed at least 30 degrees if appropriate 5. Provide adequate fluid intake to liquify secretions if appropriate 6. Suction secretions as indicated to maintain patent airway 7. Instruct patient to turn, cough, and deep breathe; encourage incentive spirometer if indicated Outcome: Progressing Note: Evaluation of progress towards goal: Airway maintained * PT/OT/PIPE BENDER - Rosalia Murphy [facility]PIPE BENDER - 04/09/2023 10:42 AM EST Speech Therapy Treatment Note Assessment Problem: language Progress: same Pain Assessment Unable to Self-Report Pain Scales: FLACC FLACC (Face, Legs, Activity, Crying, Consolability) Pain Rating: FLACC (Rest) - Face: No particular expression or smile Pain Rating: FLACC (Rest) - Legs: Normal position or relaxed Pain Rating: FLACC (Rest) - Activity: Lying quietly, normal position, moves easily Pain Rating: FLACC (Rest) - Cry: No cry (awake or asleep) Pain Rating: FLACC (Rest) - Consolability: Content, relaxed Score: FLACC (Rest): 0 Recomendation Diet: NPO with alternative means of nutrition and hydration Discharge: [facility] facility Precautions Aspiration precautions Plan Plan of Care: continue with current plan of care Subjective Setting: bedside Arrival Status: lethargic Mental Status: confused/disoriented Therapy Tolerance: fair Change in Medical Status: no Received Recent Meds: no Objective Therapy Activities: yes/no questions Cueing/Assistance Required: maximum Cueing Type: tactile, phonemic, verbal, and semantic Accuracy: 0% accuracy Therapy Activities: naming Cueing/Assistance Required: maximum Cueing Type: tactile, phonemic, verbal, semantic, and visual Accuracy: 0% accuracy Pt very lethargic and difficult to arouse. Attempted to have pt answer yes/no questions and complete naming tasks, however; pt not really responding. Pt also unintelligible when attempting to verbalize. Will continue to follow along. Plan Speech Therapy Care Plan Speech Therapy Care Plan (Active) Template: ST - Dysphagia Problem: Swallowing Dates: Start: 04/01/23 Disciplines: PIPE BENDER Goal: LTG: Patient will tolerate least restrictive diet recommended by PIPE BENDER without signs and symptoms of aspiration 90% of the time Dates: Start: 04/01/23 Expected End: 05/02/23 Disciplines: PIPE BENDER Goal: STG: Patient will complete safety strategies with minimal assistance during PO intake 90% of the time Dates: Start: 04/01/23 Expected End: 05/02/23 Disciplines: PIPE BENDER Goal: STG: Patient will tolerate therapeutic feeding trials of advanced textures with 90% accuracy with minimal cueing Dates: Start: 04/01/23 Expected End: 05/02/23 Disciplines: PIPE BENDER Template: ST - Rehab Speech Problem: Auditory Comprehension Dates: Start: 04/01/23 Disciplines: PIPE BENDER Goal: LTG: Patient will comprehend communication related to basic medical and social needs and utilize compensatory strategies to maintain safety in a functional living environment Dates: Start: 04/01/23 Expected End: 05/02/23 Disciplines: PIPE BENDER Goal: STG: Patient will answer complex yes/no questions with 90% accuracy with minimal cueing Dates: Start: 04/01/23 Expected End: 05/02/23 Disciplines: PIPE BENDER Outcomes Date/Time User Outcome 04/09/23 1044 Rosalia Murphy CCC-DARIUS Not Progressing Problem: Cognitive Linguistic Dates: Start: 04/01/23 Disciplines: PIPE BENDER Goal: LTG: Patient will display functional cognitive-linguistic skills to demonstrate appropriate communication and safety within daily activities in a functional living environment Dates: Start: 04/01/23 Expected End: 05/02/23 Disciplines: PIPE BENDER Goal: STG: Patient will recall information discussed during therapy session via retelling/answeringquestions with 90% accuracy with minimal cueing Dates: Start: 04/01/23 Expected End: 05/02/23 Disciplines: PIPE BENDER Problem: High Level Language Dates: Start: 04/01/23 Disciplines: PIPE BENDER Goal: LTG: Patient will demonstrate use of self-awareness, goal setting, planning, initiation, self-monitoring and problem solving during daily activities to improve safety and awareness in a functional living environment Dates: Start: 04/01/23 Expected End: 05/02/23 Disciplines: PIPE BENDER Goal: STG: Patient will demonstrate functional problem solving and safety awareness with 90% accuracy in daily living tasks in order to increase safe interactions with environment and decrease assistance from caregivers Dates: Start: 04/01/23 Expected End: 05/02/23 Disciplines: PIPE BENDER Goal: STG: Patient will complete simple to complex organization, scheduling, planning and reasoningtasks to improve problem solving and safety awareness with 90% accuracy with minimal cueing Dates: Start: 04/01/23 Expected End: 05/02/23 Disciplines: PIPE BENDER Problem: Speech Production Dates: Start: 04/01/23 Disciplines: PIPE BENDER Goal: LTG: Patient will develop functional and intelligible speech and utilize compensatory strategies through the use of adequate labial and lingual function, increased articulatory precision and speech prosody Dates: Start: 04/01/23 Expected End: 05/02/23 Disciplines: PIPE BENDER Goal: STG: Patient will complete rapid alternating verbal sequences (tongue twisters) with improvedarticulatory precision with 90% accuracy with minimal cueing Dates: Start: 04/01/23 Expected End: 05/02/23 Disciplines: PIPE BENDER Problem: Verbal Expression Dates: Start: 04/01/23 Disciplines: PIPE BENDER Goal: LTG: Patient will utilize compensatory strategies to communicate wants and needs effectively to different conversational partners, maintain safety and participate socially in a functional living environment Dates: Start: 04/01/23 Expected End: 05/02/23 Disciplines: PIPE BENDER Goal: STG: Patient will complete simple to complex divergent and convergent naming tasks with 90% accuracy with minimal cueing to improve thought organization Dates: Start: 04/01/23 Expected End: 05/02/23 Disciplines: PIPE BENDER Outcomes Date/Time User Outcome 04/09/23 1044 BARRINGTON Meneses Not Progressing Speech Therapy Care Plan (Resolved) There are no resolved problems. Principal Problem: 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CMS-HCC) * PT/OT/PIPE BENDER - Omar Whitman PTA - 04/09/2023 8:35 AM EST Physical Therapy (P) CANCEL - Deferred (per RN d/t fatigue, RN noted they will reach out if pt wakes up. Will continue per POC as able.) Associated attestation - Sun Lamb PT - 04/09/2023 11:58 AM EST I have reviewed and agree with this note and education documentation for this visit. * PT/OT/PIPE BENDER - MARISOL Douglas - 04/09/2023 8:34 AM EST Occupational Therapy CANCEL - Deferred (per RN; RN will contact investigative writer if pt wakes up and is appropriate for therapy) Associated attestation - Antolin Rodriguez OTR/L - 04/09/2023 3:38 PM EST I have reviewed and agree with this note and education documentation for this visit. * Plan of Care - Bienvenido Reid RN - 04/09/2023 7:26 AM EST Problem: Pain Goal: Patient goal is pain score less than 4, able to rest, and participant in treatment plan as appropriate Description: INTERVENTIONS: 1. Encourage patient or legal data entry representative to report early pain and ask for pain medicine when needed 2. Assess pain using appropriate pain scale and include the scale used when documenting 3. Administer analgesics based on type and severity of pain and evaluate response within appropriate time frame 4. Implement non-pharmacological measures as appropriate and evaluate response 5. Consider cultural and social influences on pain and pain management 6. Notify LIP if interventions ineffective or patient reports new pain 7. Monitor vital signs including pulse ox, end-tidal CO2 based on pain intervention 8. Reassess pain per policy 9. Teach patient or legal data entry representative interventions for comforting Outcome: Progressing Note: Evaluation of progress towards goal: Patient demonstrates that pain is well controlled with PRN analgesics, displays a pain score of 0/10 at this time. Will continue to monitor for s/s of pain. Problem: Safety Goal: Patient will be injury free during hospitalization Description: INTERVENTIONS: 1. Assess patient's risk for falls and implement fall prevention plan of care per policy 2. Provide and maintain a safe environment 3. Proper use of double Identifiers 4. Medication administration using the 5 rights 5. Hand hygiene 6. Specimens are labeled at the bedside 7. Instruct patient/ patient data entry representative about use of safety devices 8. Include patient/ patient data entry representative in decisions related to safety Outcome: Progressing Note: Evaluation of progress towards goal: Patient remains free from injury, hourly rounds maintained. Problem: Infection Goal: Absence of infection during hospitalization Description: Interventions: 1. Assess and monitor for signs and symptoms of infection 2. Monitor lab/diagnostic results 3. Monitor all insertion sites i.e., indwelling lines, tubes and drains 4. Monitor endotracheal (as able) and nasal secretions for changes in amount and color 5. Administer medications as ordered 6. Instruct and encourage patient and family to use good hand hygiene technique 7. Identify and instruct patient/patient data entry representative in use of appropriate isolation precautionsfor identified infection/symptoms 8. Provide and discuss with patient/patient data entry representative on educational MDRO sheet 9. Encourage and monitor nutritional status daily and consult commercial administrator if indicated 10. Implement neutropenic guidelines as needed 11. Review exposure to history of communicable disease and recent travel history on admission 12. Encourage annual influenza vaccine 13. Encourage pneumonia vaccine Outcome: Progressing Note: Evaluation of progress towards goal: Patient remains free from signs and symptoms of infection, patient is afebrile, WBC within normal limits. Problem: Knowledge Deficit Goal: Patient/patient data entry representative demonstrates understanding of disease process, treatment plan,medications, and discharge instructions Description: INTERVENTIONS 1. Complete learning assessment and assess knowledge base 2. Provide teaching at level of understanding 3. Provide teaching via preferred learning method(s) Outcome: Progressing Note: Evaluation of progress towards goal: Family verbalizes understanding of plan of care, unable to provide education to patient related to sedation, mechanical ventilation, and mental status at this time, will continue efforts. Problem: Discharge Planning Goal: Discharge to post-acute care, other facility, or home with appropriate resources Description: Patient's goal is: INTERVENTIONS 1. Conduct assessment to determine patient/family and health care team treatment goals, and need for post-acute services based on payer coverage, community resources, and patient preferences, and barriers to discharge 2. Coordinate with Social work, Care Navigation, and Utilization Review to arrange appropriate level of services according to patient's needs based on patient preference and payer coverage in collaboration with the physician and health care team 3. Address psychosocial, clinical, and financial barriers to discharge as identified in assessment in conjunction with the patient/family and health care team 4. Consult appropriate ancillary services (i.e.. PT/OT/ST, etc) as needed 5. Communicate with and update the patient/family, physician, and health care team regarding progress on the discharge plan 6. Identify discharge learning needs (meds, wound care, etc). 7. Arrange for needed discharge transportation as appropriate Outcome: Progressing Note: Evaluation of progress towards goal: Discharge planning in progress, not yet appropriate for discharge. Will continue to evaluate barriers. Problem: Potential for Compromised Skin Integrity Goal: Skin integrity is maintained or improved Description: Patient's goal is: INTERVENTIONS 1. Perform initial skin assessment on admission and as needed 2. Turn patient every 2 hours and PRN 3. Relieve pressure to bony prominences 4. Avoid shearing 5. Keep skin clean and dry 6. Alternate a full bath with partial baths for elderly 7. Encourage use of lotion/moisturizer on skin 8. Monitor patient's hygiene practices 9. Float heels 10. Collaborate with interdisciplinary team and initiate plans and interventions as needed Outcome: Progressing Note: Evaluation of progress towards goal: No new skin breakdown noted, turned q 2 and PRN. Skin isclean, dry, and intact. Goal: Patient's nutritional intake is adequate Description: Patient's goal is: INTERVENTIONS 1. Assess and monitor food intake and supplements, patient food preferences, nausea, vomiting, labs, oral cavity (gums, teeth, tongue, mucosa), proper denture fit, and cultural beliefs 2. Monitor for signs of hypoglycemia and hyperglycemia 3. Collaborate with interdisciplinary team and initiate plan and interventions as ordered 4. Monitor patient's weight 5. Assist patient with meals/food selection 6. Assist patient with eating 7. Allow adequate time for meals 8. Provide pleasant environment during mealtime 9. Increase social contact during mealtimes 10. Plan activities to conserve energy 11. Encourage/perform oral hygiene as appropriate 12. Encourage patient to take dietary supplement as ordered 13. Collaborate with clinical commercial administrator 14. Include patient/ patient's data entry representative in decisions related to nutrition Outcome: Progressing Note: Evaluation of progress towards goal: Patient tolerating tube feed diet, will continue to assess and advance dietary needs as possible. Problem: Urinary Incontinence Goal: Perineal skin integrity is maintained or improved Description: INTERVENTIONS 1. Assess genitourinary system, perineal skin, labs (urinalysis), and history of incontinence to include past management, aggravating, and alleviating factors 2. Keep skin clean and dry 3. Apply skin protectant 4. Develop skin care regimen 5. Provide privacy when changing patients incontinence device to maintain their dignity 6. Consider placing an indwelling catheter 7. Collaborate with interdisciplinary team and initiate plans and interventions as needed Outcome: Progressing Note: Evaluation of progress towards goal: larios continues for strict I&O's. Angelica care providedq shift and PRN. Output is adequate. Problem: Moderate - High Risk Fall Score Description: [place] Fall Score of =/> 25 or indicated by [facility] Rehab Assessment Goal: Patient should be free from fall Description: Interventions: 1. Olds to environment 2. Hourly rounds addressing the 4 P's (Pain, Positioning, Possessions, Potty) 3. Clear area of hazards (spills, clutter, electrical cords, unnecessary equipment) 4. Place equipment (bed & TV controls, call light, phone, urinal) within reach 5. Encourage patient to wear glasses and hearing aides as appropriate 6. Maintain bed in lowest position 7. Lock wheels on bed/wheelchair 8. Provide adequate lighting, including night light 9. Assess need for additional bedding, food/fluids, pain med's prior to sleep/routinely 10. Provide gripper slippers or personal non-skid footwear 11. Teach patient and patient data entry representative to maintain environment for safety and engage in all aspects of fall prevention program 12. Remind patient to call for help before getting out of bed 13. Initiate bed/chair/exit alarms supportive devices as appropriate, (chair wedge, no-skid floor mat, raised edge mattress, hip protectors) 14. Locate patient bed assignment for optimal visualization 15. Evaluate and identify Safe Patient Handling Equipment needs 16. Provide supervision when out of bed or chair 17. Utilize gait belt as needed to assist with ambulation 18. Place adaptive equipment (cane, walker) within reach 19. Request patient data entry representative bring adaptive equipment/mobility aids from home or obtain and provide as needed 20. Consult pharmacy regarding effects of med's affecting mobility, cognition, and alternatives 21. Obtain physician order for PT if risk factors associated with mobility are present 22. Obtain physician order for OT as appropriate 23. Utilize diversional activities 24. Educate patient and patient data entry representative how to maintain a safe environment during visitationtimes (notify nurse prior to leaving bedside) 25. Consider appropriateness of medical or non-medical driver 26. Set up voiding schedule as appropriate (every 2 hours) Outcome: Progressing Note: Evaluation of progress towards goal: Patient remains free from falls and injury, fall risk IDband on, fall prevention education and precautions provided and in place. Patient verbalizes and demonstrates understanding, hourly rounds maintained. Problem: Neurological Deficit Goal: Neurological status is stable or improving Description: Patient's goal is: INTERVENTIONS 1. Complete Neurological assessment as indicated/ordered 2. Initiate measures to prevent increased intracranial pressure 3. Monitor and assess patient's level of consciousness, motor function, sensory function, and levelof assistance needed for ADLs 4. Monitor and report changes from baseline 5. Maintain blood pressure and fluid volume within ordered parameters to optimize cerebral perfusion and minimize risk of hemorrhage 6. Monitor labs and diagnostic tests 7. Administer anti-seizure medications as ordered 8. Maintain airway, patient safety and administer oxygen as ordered 9. Monitor patient for seizure activity, document and report duration and description of seizure toLIP 10. If seizure occurs, turn patient to side and suction secretions as needed 11. Reorient patient post seizure 12. Seizure pads on all 4 side rails 13. Instruct patient/family to notify RN of any seizure activity 14. Instruct patient/family to call for assistance with activity based on assessment 15. Utilize bleeding precautions if thrombolytic given Outcome: Progressing Problem: Activity Intolerance/Impaired Mobility Goal: Mobility/activity is maintained at optimum level for patient Description: Patient's goal is: INTERVENTIONS 1. Assess and monitor patient barriers to mobility and need for assistive/adaptive devices 2. Assess patient's emotional response to limitations 3. Collaborate with interdisciplinary teams and initiate plans and interventions as ordered 4. Encourage independent activity per tolerance 5. Maintain proper body alignment 6. Perform active/passive ROM as tolerated/ordered 7. Coordinate activities to conserve energy 8. Reposition patient 9. Ensure adequate rest/sleep time Outcome: Progressing Problem: Communication Impairment Goal: Ability to express needs and understand communication Description: INTERVENTIONS 1. Assess patient's communication skills and ability to understand information 2. Provide alternate method of communication if needed i.e. ipad, sign board, pen/paper 3. Collaborate with Speech Therapy to develop effective communication strategies 4. Include patient/patient data entry representative in decisions related to communication Outcome: Progressing Problem: Potential for Aspiration Goal: Patient's risk of aspiration is minimized Description: INTERVENTIONS 1. Assess and monitor vital signs, respiratory status, and labs (WBC) 2. Monitor for signs of aspiration (tachypnea, cough, rales, wheezing, cyanosis, fever) 3. Assess and monitor patient's ability to swallow 4. Place patient up in chair to eat if possible 5. Elevate head of bed 90 degrees to eat if unable to get patient up into chair 6. Supervise patient during oral intake 7. Instruct patient to take small bites 8. Instruct patient to take small single sips when taking liquids 9. Follow patient-specific strategies generated by speech pathologist 10. Complete bedside swallow screen if appropriate and take actions as indicated. 11. Administer prescribed medications and monitor effects Outcome: Progressing Problem: Self Care Deficit Goal: Return ADL status to a safe level of function Description: Patient's goal is: INTERVENTIONS 1. Administer medication as ordered 2. Assess ADL deficits and provide assistive devices as needed 3. Obtain PT/OT consults as needed 4. Assist and instruct patient to increase activity and self care as tolerated Outcome: Progressing Problem: Safety - Medical Restraint Goal: Remains free of injury from restraints (Restraint for Interference with Um Nurse) Description: INTERVENTIONS: 1. Determine that other, less restrictive measures have been tried or would not be effective beforeapplying the restraint 2. Evaluate the patient's condition at the time of restraint application 3. Inform patient/family regarding the reason for restraint 4. Q2H: Monitor safety, Vital signs, psychosocial status, signs of injury, skin integrity, circulation, neurovascular status in affected extremities, respiratory status, comfort, nutrition and hydration, hygiene, ROM, elimination needs 5. Doctor will be notified of restraint 6. RN properly applies restraints per physician order Outcome: Progressing Goal: Free from restraint(s) (Restraint for Interference with Um Nurse) Description: INTERVENTIONS: 1. ONCE/SHIFT or MINIMUM Q12H: Assess and document the continuing need for restraints 2. Order is valid for the duration of the episode of care 3. Discontinue at the earliest possible time once the reason for restraints no longer exists 4. Identify and implement measures to help patient regain control 5. Food, fluids, and toilet offered at a minimum of every 2 hours 6. RN modifies the patient's plan of care by entering a problem statement related to safety; individualizes the safety outcome Outcome: Progressing Problem: Multi-Drug Resistant Organism / Rule-Out Infection Prevention Goal: Prevent transmission of infection Description: INTERVENTIONS 1. Place patient in private room or in room with patient with same disease 2. Discard single-use items 3. Clean reusable equipment between patients 4. Wear gloves for direct and indirect contact with patient or contaminants 5. Change gloves between tasks and procedures 6. Wash hands before and after caring for each patient 7. Wear appropriate personal protective equipment in relation to the indicated isolation type 8. Place appropriate isolation signage on patient's door 9. Provide patient/ patient data entry representative with isolation education. Outcome: Progressing Problem: Inadequate Airway Clearance Goal: Patient will maintain patent airway Description: INTERVENTIONS 1. Assess and monitor breath sounds, cough and sputum (if present) 2. Monitor respiratory rate and oxygen saturation 3. Collaborate with respiratory therapy to administer medication, oxygen, and suitable airway clearance techniques as ordered 4. Position patient for maximum ventilatory efficiency; elevate head of bed at least 30 degrees if appropriate 5. Provide adequate fluid intake to liquify secretions if appropriate 6. Suction secretions as indicated to maintain patent airway 7. Instruct patient to turn, cough, and deep breathe; encourage incentive spirometer if indicated Outcome: Progressing * Plan of Care - Tana Arvizu RCP - 04/08/2023 9:06 PM EST Problem: Inadequate Airway Clearance Goal: Patient will maintain patent airway Description: INTERVENTIONS 1. Assess and monitor breath sounds, cough and sputum (if present) 2. Monitor respiratory rate and oxygen saturation 3. Collaborate with respiratory therapy to administer medication, oxygen, and suitable airway clearance techniques as ordered 4. Position patient for maximum ventilatory efficiency; elevate head of bed at least 30 degrees if appropriate 5. Provide adequate fluid intake to liquify secretions if appropriate 6. Suction secretions as indicated to maintain patent airway 7. Instruct patient to turn, cough, and deep breathe; encourage incentive spirometer if indicated Outcome: Progressing Note: Evaluation of progress towards goal: stable Respiratory Therapy Clinical Practice Guidelines Consult Vital Signs BP: 146/90 Pulse: 84 Heart Rate Source: Monitor Resp: 19 SpO2: 99 % O2 Device: Nasal cannula O2 Flow Rate (L/min): 6 L/min Respiratory Assessment Assessment Type: Post-treatment Level of Consciousness: Alert, Responds to Voice Respiratory Pattern: Regular Chest Assessment: Chest expansion symmetrical Bilateral Breath Sounds: Diminished Patient Active Problem List Diagnosis 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CMS-HCC) Last Chest XRAY: Reviewed Pulmonary History: see above. RT Reassessment Due In: 12 hours Bronchodilator Respiratory Rate Level 1: Less than 20 Dyspnea Level 2: Periodic SOB Breath Sounds Level 2: Diminished and/or faint wheezes Respiratory History Level 2: Positive risk factors including but not limited to: History of smoking; History of pulmonary complications ; Smoke inhalation, physical/chemical trauma to the lung or upper airway Oxygen to Keep SpO2 Greater Than Or Equal To 92% Level 3: 4-6 LPM or >35% - <50% ; NIV 51 - 65% Peak Flow ([facility] Only) Home Therapy: Not Applicable Patients Current Level & Intervention: 2 Three times daily and Q4 PRN for wheezing * Plan of Care - Rosalia Ren RN - 04/08/2023 7:23 PM EST Problem: Pain Goal: Patient goal is pain score less than 4, able to rest, and participant in treatment plan as appropriate Description: INTERVENTIONS: 1. Encourage patient or legal data entry representative to report early pain and ask for pain medicine when needed 2. Assess pain using appropriate pain scale and include the scale used when documenting 3. Administer analgesics based on type and severity of pain and evaluate response within appropriate time frame 4. Implement non-pharmacological measures as appropriate and evaluate response 5. Consider cultural and social influences on pain and pain management 6. Notify LIP if interventions ineffective or patient reports new pain 7. Monitor vital signs including pulse ox, end-tidal CO2 based on pain intervention 8. Reassess pain per policy 9. Teach patient or legal data entry representative interventions for comforting Outcome: Progressing Note: Evaluation of progress towards goal: Patient is tolerating IV/PO pain medications with relief. Pain is well controlled at this time. Patient encouraged to communicate with staff on pain changes. Problem: Safety Goal: Patient will be injury free during hospitalization Description: INTERVENTIONS: 1. Assess patient's risk for falls and implement fall prevention plan of care per policy 2. Provide and maintain a safe environment 3. Proper use of double Identifiers 4. Medication administration using the 5 rights 5. Hand hygiene 6. Specimens are labeled at the bedside 7. Instruct patient/ patient data entry representative about use of safety devices 8. Include patient/ patient data entry representative in decisions related to safety Outcome: Progressing Note: Evaluation of progress towards goal: Patient safety maintained, call light in reach, area clear of hazards, hourly rounding continued, bed locked in lowest position, alarm on as applicable, nonskid socks on, safety educated completed with patient/family, no injuries noted at this time. Problem: Infection Goal: Absence of infection during hospitalization Description: Interventions: 1. Assess and monitor for signs and symptoms of infection 2. Monitor lab/diagnostic results 3. Monitor all insertion sites i.e., indwelling lines, tubes and drains 4. Monitor endotracheal (as able) and nasal secretions for changes in amount and color 5. Administer medications as ordered 6. Instruct and encourage patient and family to use good hand hygiene technique 7. Identify and instruct patient/patient data entry representative in use of appropriate isolation precautionsfor identified infection/symptoms 8. Provide and discuss with patient/patient data entry representative on educational MDRO sheet 9. Encourage and monitor nutritional status daily and consult commercial administrator if indicated 10. Implement neutropenic guidelines as needed 11. Review exposure to history of communicable disease and recent travel history on admission 12. Encourage annual influenza vaccine 13. Encourage pneumonia vaccine Outcome: Progressing Note: Evaluation of progress towards goal: Currently being treated for infection. Will continue to monitor for new signs and symptoms. Problem: Knowledge Deficit Goal: Patient/patient data entry representative demonstrates understanding of disease process, treatment plan,medications, and discharge instructions Description: INTERVENTIONS 1. Complete learning assessment and assess knowledge base 2. Provide teaching at level of understanding 3. Provide teaching via preferred learning method(s) Outcome: Progressing Note: Evaluation of progress towards goal: Care plan discussed & goals for shift set with patient input appreciated. All questions answered. Problem: Discharge Planning Goal: Discharge to post-acute care, other facility, or home with appropriate resources Description: Patient's goal is: INTERVENTIONS 1. Conduct assessment to determine patient/family and health care team treatment goals, and need for post-acute services based on payer coverage, community resources, and patient preferences, and barriers to discharge 2. Coordinate with Social work, Care Navigation, and Utilization Review to arrange appropriate level of services according to patient's needs based on patient preference and payer coverage in collaboration with the physician and health care team 3. Address psychosocial, clinical, and financial barriers to discharge as identified in assessment in conjunction with the patient/family and health care team 4. Consult appropriate ancillary services (i.e.. PT/OT/ST, etc) as needed 5. Communicate with and update the patient/family, physician, and health care team regarding progress on the discharge plan 6. Identify discharge learning needs (meds, wound care, etc). 7. Arrange for needed discharge transportation as appropriate Outcome: Progressing Note: Evaluation of progress towards goal: Discharge planning in progress with appropriate multidisciplinary teams. Problem: Potential for Compromised Skin Integrity Goal: Skin integrity is maintained or improved Description: Patient's goal is: INTERVENTIONS 1. Perform initial skin assessment on admission and as needed 2. Turn patient every 2 hours and PRN 3. Relieve pressure to bony prominences 4. Avoid shearing 5. Keep skin clean and dry 6. Alternate a full bath with partial baths for elderly 7. Encourage use of lotion/moisturizer on skin 8. Monitor patient's hygiene practices 9. Float heels 10. Collaborate with interdisciplinary team and initiate plans and interventions as needed Outcome: Progressing Note: Evaluation of progress towards goal: Patient repositioned Q2 hrs. Monitor for s/s of skin breakdown and treat/communicate with treatment team as needed. Goal: Patient's nutritional intake is adequate Description: Patient's goal is: INTERVENTIONS 1. Assess and monitor food intake and supplements, patient food preferences, nausea, vomiting, labs, oral cavity (gums, teeth, tongue, mucosa), proper denture fit, and cultural beliefs 2. Monitor for signs of hypoglycemia and hyperglycemia 3. Collaborate with interdisciplinary team and initiate plan and interventions as ordered 4. Monitor patient's weight 5. Assist patient with meals/food selection 6. Assist patient with eating 7. Allow adequate time for meals 8. Provide pleasant environment during mealtime 9. Increase social contact during mealtimes 10. Plan activities to conserve energy 11. Encourage/perform oral hygiene as appropriate 12. Encourage patient to take dietary supplement as ordered 13. Collaborate with clinical commercial administrator 14. Include patient/ patient's data entry representative in decisions related to nutrition Outcome: Progressing Note: Evaluation of progress towards goal: Pt nutritional needs monitored and addressed as ordered by physician. Dietary recommendations appreciated as ordered. Problem: Urinary Incontinence Goal: Perineal skin integrity is maintained or improved Description: INTERVENTIONS 1. Assess genitourinary system, perineal skin, labs (urinalysis), and history of incontinence to include past management, aggravating, and alleviating factors 2. Keep skin clean and dry 3. Apply skin protectant 4. Develop skin care regimen 5. Provide privacy when changing patients incontinence device to maintain their dignity 6. Consider placing an indwelling catheter 7. Collaborate with interdisciplinary team and initiate plans and interventions as needed Outcome: Progressing Note: Evaluation of progress towards goal: Perineal skin integrity remains clean, dry, and intact with no redness or s/s of breakdown. Skin care regimen considered as needed. Collaboration with interdisciplinary teams considered as needed. Problem: Moderate - High Risk Fall Score Description: [place] Fall Score of =/> 25 or indicated by [facility] Assessment Goal: Patient should be free from fall Description: Interventions: 1. Olds to environment 2. Hourly rounds addressing the 4 P's (Pain, Positioning, Possessions, Potty) 3. Clear area of hazards (spills, clutter, electrical cords, unnecessary equipment) 4. Place equipment (bed & TV controls, call light, phone, urinal) within reach 5. Encourage patient to wear glasses and hearing aides as appropriate 6. Maintain bed in lowest position 7. Lock wheels on bed/wheelchair 8. Provide adequate lighting, including night light 9. Assess need for additional bedding, food/fluids, pain med's prior to sleep/routinely 10. Provide gripper slippers or personal non-skid footwear 11. Teach patient and patient data entry representative to maintain environment for safety and engage in all aspects of fall prevention program 12. Remind patient to call for help before getting out of bed 13. Initiate bed/chair/exit alarms supportive devices as appropriate, (chair wedge, no-skid floor mat, raised edge mattress, hip protectors) 14. Locate patient bed assignment for optimal visualization 15. Evaluate and identify Safe Patient Handling Equipment needs 16. Provide supervision when out of bed or chair 17. Utilize gait belt as needed to assist with ambulation 18. Place adaptive equipment (cane, walker) within reach 19. Request patient data entry representative bring adaptive equipment/mobility aids from home or obtain and provide as needed 20. Consult pharmacy regarding effects of med's affecting mobility, cognition, and alternatives 21. Obtain physician order for PT if risk factors associated with mobility are present 22. Obtain physician order for OT as appropriate 23. Utilize diversional activities 24. Educate patient and patient data entry representative how to maintain a safe environment during visitationtimes (notify nurse prior to leaving bedside) 25. Consider appropriateness of medical or non-medical driver 26. Set up voiding schedule as appropriate (every 2 hours) Outcome: Progressing Note: Evaluation of progress towards goal: Fall risk assessment preformed and safety measures in place. Education given to family/patient. Will continue to monitor. Problem: Neurological Deficit Goal: Neurological status is stable or improving Description: Patient's goal is: INTERVENTIONS 1. Complete Neurological assessment as indicated/ordered 2. Initiate measures to prevent increased intracranial pressure 3. Monitor and assess patient's level of consciousness, motor function, sensory function, and levelof assistance needed for ADLs 4. Monitor and report changes from baseline 5. Maintain blood pressure and fluid volume within ordered parameters to optimize cerebral perfusion and minimize risk of hemorrhage 6. Monitor labs and diagnostic tests 7. Administer anti-seizure medications as ordered 8. Maintain airway, patient safety and administer oxygen as ordered 9. Monitor patient for seizure activity, document and report duration and description of seizure toLIP 10. If seizure occurs, turn patient to side and suction secretions as needed 11. Reorient patient post seizure 12. Seizure pads on all 4 side rails 13. Instruct patient/family to notify RN of any seizure activity 14. Instruct patient/family to call for assistance with activity based on assessment 15. Utilize bleeding precautions if thrombolytic given Outcome: Progressing Note: Evaluation of progress towards goal: Patient's level of consciousness, motor function, sensory function, and level of assistance needed for ADLs all monitored and assessed at this time. Changesfrom baseline reported to necessary personal when needed. Patients care is optimized for cerebral perfusion accordingly to patients orders. Problem: Activity Intolerance/Impaired Mobility Goal: Mobility/activity is maintained at optimum level for patient Description: Patient's goal is: INTERVENTIONS 1. Assess and monitor patient barriers to mobility and need for assistive/adaptive devices 2. Assess patient's emotional response to limitations 3. Collaborate with interdisciplinary teams and initiate plans and interventions as ordered 4. Encourage independent activity per tolerance 5. Maintain proper body alignment 6. Perform active/passive ROM as tolerated/ordered 7. Coordinate activities to conserve energy 8. Reposition patient 9. Ensure adequate rest/sleep time Outcome: Progressing Note: Evaluation of progress towards goal: Patient repositioned Q2H and as needed to balance activity and rest. Assessment completed for any needs on assistive devices/patient safe handling equipment. Collaboration with interdisciplinary teams considered. Problem: Communication Impairment Goal: Ability to express needs and understand communication Description: INTERVENTIONS 1. Assess patient's communication skills and ability to understand information 2. Provide alternate method of communication if needed i.e. ipad, sign board, pen/paper 3. Collaborate with Speech Therapy to develop effective communication strategies 4. Include patient/patient data entry representative in decisions related to communication Outcome: Progressing Note: Evaluation of progress towards goal: Patient's level of consciousness, motor function, sensory function, and level of assistance needed for ADLs all monitored and assessed at this time. Changesfrom baseline reported to necessary personal when needed. Patients care is optimized for cerebral perfusion accordingly to patients orders. Problem: Potential for Aspiration Goal: Patient's risk of aspiration is minimized Description: INTERVENTIONS 1. Assess and monitor vital signs, respiratory status, and labs (WBC) 2. Monitor for signs of aspiration (tachypnea, cough, rales, wheezing, cyanosis, fever) 3. Assess and monitor patient's ability to swallow 4. Place patient up in chair to eat if possible 5. Elevate head of bed 90 degrees to eat if unable to get patient up into chair 6. Supervise patient during oral intake 7. Instruct patient to take small bites 8. Instruct patient to take small single sips when taking liquids 9. Follow patient-specific strategies generated by speech pathologist 10. Complete bedside swallow screen if appropriate and take actions as indicated. 11. Administer prescribed medications and monitor effects Outcome: Progressing Note: Evaluation of progress towards goal: Patient closely monitored for aspiration. Diet adjusted as needed per policy. Problem: Self Care Deficit Goal: Return ADL status to a safe level of function Description: Patient's goal is: INTERVENTIONS 1. Administer medication as ordered 2. Assess ADL deficits and provide assistive devices as needed 3. Obtain PT/OT consults as needed 4. Assist and instruct patient to increase activity and self care as tolerated Outcome: Progressing Note: Evaluation of progress towards goal: activities of daily living assessed. Problem: Safety - Medical Restraint Goal: Remains free of injury from restraints (Restraint for Interference with Um Nurse) Description: INTERVENTIONS: 1. Determine that other, less restrictive measures have been tried or would not be effective beforeapplying the restraint 2. Evaluate the patient's condition at the time of restraint application 3. Inform patient/family regarding the reason for restraint 4. Q2H: Monitor safety, Vital signs, psychosocial status, signs of injury, skin integrity, circulation, neurovascular status in affected extremities, respiratory status, comfort, nutrition and hydration, hygiene, ROM, elimination needs 5. Doctor will be notified of restraint 6. RN properly applies restraints per physician order Outcome: Progressing Note: Evaluation of progress towards goal: Patient remains free from injury from restraints. Restraints monitored per policy Goal: Free from restraint(s) (Restraint for Interference with Um Nurse) Description: INTERVENTIONS: 1. ONCE/SHIFT or MINIMUM Q12H: Assess and document the continuing need for restraints 2. Order is valid for the duration of the episode of care 3. Discontinue at the earliest possible time once the reason for restraints no longer exists 4. Identify and implement measures to help patient regain control 5. Food, fluids, and toilet offered at a minimum of every 2 hours 6. RN modifies the patient's plan of care by entering a problem statement related to safety; individualizes the safety outcome Outcome: Progressing Note: Evaluation of progress towards goal: Patient persists in efforts to pull on lines and tubes, remains restrained for safety. Discontinuation criteria explain to patient. Will continue to monitorfor readiness to discontinue restraints. Problem: Multi-Drug Resistant Organism / Rule-Out Infection Prevention Goal: Prevent transmission of infection Description: INTERVENTIONS 1. Place patient in private room or in room with patient with same disease 2. Discard single-use items 3. Clean reusable equipment between patients 4. Wear gloves for direct and indirect contact with patient or contaminants 5. Change gloves between tasks and procedures 6. Wash hands before and after caring for each patient 7. Wear appropriate personal protective equipment in relation to the indicated isolation type 8. Place appropriate isolation signage on patient's door 9. Provide patient/ patient data entry representative with isolation education. Outcome: Progressing Note: Evaluation of progress towards goal: Currently being treated for infection. Will continue to monitor for new signs and symptoms. Problem: Inadequate Airway Clearance Goal: Patient will maintain patent airway Description: INTERVENTIONS 1. Assess and monitor breath sounds, cough and sputum (if present) 2. Monitor respiratory rate and oxygen saturation 3. Collaborate with respiratory therapy to administer medication, oxygen, and suitable airway clearance techniques as ordered 4. Position patient for maximum ventilatory efficiency; elevate head of bed at least 30 degrees if appropriate 5. Provide adequate fluid intake to liquify secretions if appropriate 6. Suction secretions as indicated to maintain patent airway 7. Instruct patient to turn, cough, and deep breathe; encourage incentive spirometer if indicated Outcome: Progressing Note: Evaluation of progress towards goal: Patient airway maintained via ET tube. Will continue to monitor * Plan of Care - Naa Jimenez RN - 04/08/2023 1:29 PM EST Problem: Pain Goal: Patient goal is pain score less than 4, able to rest, and participant in treatment plan as appropriate Description: INTERVENTIONS: 1. Encourage patient or legal data entry representative to report early pain and ask for pain medicine when needed 2. Assess pain using appropriate pain scale and include the scale used when documenting 3. Administer analgesics based on type and severity of pain and evaluate response within appropriate time frame 4. Implement non-pharmacological measures as appropriate and evaluate response 5. Consider cultural and social influences on pain and pain management 6. Notify LIP if interventions ineffective or patient reports new pain 7. Monitor vital signs including pulse ox, end-tidal CO2 based on pain intervention 8. Reassess pain per policy 9. Teach patient or legal data entry representative interventions for comforting Outcome: Progressing Note: Evaluation of progress towards goal: Patient monitoring own pain this shift, using PRNs when needed Problem: Safety Goal: Patient will be injury free during hospitalization Description: INTERVENTIONS: 1. Assess patient's risk for falls and implement fall prevention plan of care per policy 2. Provide and maintain a safe environment 3. Proper use of double Identifiers 4. Medication administration using the 5 rights 5. Hand hygiene 6. Specimens are labeled at the bedside 7. Instruct patient/ patient data entry representative about use of safety devices 8. Include patient/ patient data entry representative in decisions related to safety Outcome: Progressing Note: Evaluation of progress towards goal: Patient remains safe this shift Problem: Infection Goal: Absence of infection during hospitalization Description: Interventions: 1. Assess and monitor for signs and symptoms of infection 2. Monitor lab/diagnostic results 3. Monitor all insertion sites i.e., indwelling lines, tubes and drains 4. Monitor endotracheal (as able) and nasal secretions for changes in amount and color 5. Administer medications as ordered 6. Instruct and encourage patient and family to use good hand hygiene technique 7. Identify and instruct patient/patient data entry representative in use of appropriate isolation precautionsfor identified infection/symptoms 8. Provide and discuss with patient/patient data entry representative on educational MDRO sheet 9. Encourage and monitor nutritional status daily and consult commercial administrator if indicated 10. Implement neutropenic guidelines as needed 11. Review exposure to history of communicable disease and recent travel history on admission 12. Encourage annual influenza vaccine 13. Encourage pneumonia vaccine Outcome: Progressing Note: Evaluation of progress towards goal: No new signs or symptoms of infection this shift, monitoring labs and vitals Problem: Knowledge Deficit Goal: Patient/patient data entry representative demonstrates understanding of disease process, treatment plan,medications, and discharge instructions Description: INTERVENTIONS 1. Complete learning assessment and assess knowledge base 2. Provide teaching at level of understanding 3. Provide teaching via preferred learning method(s) Outcome: Progressing Note: Evaluation of progress towards goal: Education given at a level of understanding for this shift Problem: Discharge Planning Goal: Discharge to post-acute care, other facility, or home with appropriate resources Description: Patient's goal is: INTERVENTIONS 1. Conduct assessment to determine patient/family and health care team treatment goals, and need for post-acute services based on payer coverage, community resources, and patient preferences, and barriers to discharge 2. Coordinate with Social work, Care Navigation, and Utilization Review to arrange appropriate level of services according to patient's needs based on patient preference and payer coverage in collaboration with the physician and health care team 3. Address psychosocial, clinical, and financial barriers to discharge as identified in assessment in conjunction with the patient/family and health care team 4. Consult appropriate ancillary services (i.e.. PT/OT/ST, etc) as needed 5. Communicate with and update the patient/family, physician, and health care team regarding progress on the discharge plan 6. Identify discharge learning needs (meds, wound care, etc). 7. Arrange for needed discharge transportation as appropriate Outcome: Progressing Note: Evaluation of progress towards goal: Appropriate ancillary departments will be consulted for this admission Problem: Potential for Compromised Skin Integrity Goal: Skin integrity is maintained or improved Description: Patient's goal is: INTERVENTIONS 1. Perform initial skin assessment on admission and as needed 2. Turn patient every 2 hours and PRN 3. Relieve pressure to bony prominences 4. Avoid shearing 5. Keep skin clean and dry 6. Alternate a full bath with partial baths for elderly 7. Encourage use of lotion/moisturizer on skin 8. Monitor patient's hygiene practices 9. Float heels 10. Collaborate with interdisciplinary team and initiate plans and interventions as needed Outcome: Progressing Note: Evaluation of progress towards goal: Turning q2h and keeping skin clean and dry, no new skin breakdown this shift Goal: Patient's nutritional intake is adequate Description: Patient's goal is: INTERVENTIONS 1. Assess and monitor food intake and supplements, patient food preferences, nausea, vomiting, labs, oral cavity (gums, teeth, tongue, mucosa), proper denture fit, and cultural beliefs 2. Monitor for signs of hypoglycemia and hyperglycemia 3. Collaborate with interdisciplinary team and initiate plan and interventions as ordered 4. Monitor patient's weight 5. Assist patient with meals/food selection 6. Assist patient with eating 7. Allow adequate time for meals 8. Provide pleasant environment during mealtime 9. Increase social contact during mealtimes 10. Plan activities to conserve energy 11. Encourage/perform oral hygiene as appropriate 12. Encourage patient to take dietary supplement as ordered 13. Collaborate with clinical commercial administrator 14. Include patient/ patient's data entry representative in decisions related to nutrition Outcome: Progressing Note: Evaluation of progress towards goal: Patient remains NPO this shift Problem: Urinary Incontinence Goal: Perineal skin integrity is maintained or improved Description: INTERVENTIONS 1. Assess genitourinary system, perineal skin, labs (urinalysis), and history of incontinence to include past management, aggravating, and alleviating factors 2. Keep skin clean and dry 3. Apply skin protectant 4. Develop skin care regimen 5. Provide privacy when changing patients incontinence device to maintain their dignity 6. Consider placing an indwelling catheter 7. Collaborate with interdisciplinary team and initiate plans and interventions as needed Outcome: Progressing Note: Evaluation of progress towards goal: keeping skin clean and dry, no new skin breakdown this shift Problem: Moderate - High Risk Fall Score Description: Cordova Fall Score of =/> 25 or indicated by [facility] Assessment Goal: Patient should be free from fall Description: Interventions: 1. Olds to environment 2. Hourly rounds addressing the 4 P's (Pain, Positioning, Possessions, Potty) 3. Clear area of hazards (spills, clutter, electrical cords, unnecessary equipment) 4. Place equipment (bed & TV controls, call light, phone, urinal) within reach 5. Encourage patient to wear glasses and hearing aides as appropriate 6. Maintain bed in lowest position 7. Lock wheels on bed/wheelchair 8. Provide adequate lighting, including night light 9. Assess need for additional bedding, food/fluids, pain med's prior to sleep/routinely 10. Provide gripper slippers or personal non-skid footwear 11. Teach patient and patient data entry representative to maintain environment for safety and engage in all aspects of fall prevention program 12. Remind patient to call for help before getting out of bed 13. Initiate bed/chair/exit alarms supportive devices as appropriate, (chair wedge, no-skid floor mat, raised edge mattress, hip protectors) 14. Locate patient bed assignment for optimal visualization 15. Evaluate and identify Safe Patient Handling Equipment needs 16. Provide supervision when out of bed or chair 17. Utilize gait belt as needed to assist with ambulation 18. Place adaptive equipment (cane, walker) within reach 19. Request patient data entry representative bring adaptive equipment/mobility aids from home or obtain and provide as needed 20. Consult pharmacy regarding effects of med's affecting mobility, cognition, and alternatives 21. Obtain physician order for PT if risk factors associated with mobility are present 22. Obtain physician order for OT as appropriate 23. Utilize diversional activities 24. Educate patient and patient data entry representative how to maintain a safe environment during visitationtimes (notify nurse prior to leaving bedside) 25. Consider appropriateness of medical or non-medical driver 26. Set up voiding schedule as appropriate (every 2 hours) Outcome: Progressing Note: Evaluation of progress towards goal: Patient remains safe this shift Problem: Neurological Deficit Goal: Neurological status is stable or improving Description: Patient's goal is: INTERVENTIONS 1. Complete Neurological assessment as indicated/ordered 2. Initiate measures to prevent increased intracranial pressure 3. Monitor and assess patient's level of consciousness, motor function, sensory function, and levelof assistance needed for ADLs 4. Monitor and report changes from baseline 5. Maintain blood pressure and fluid volume within ordered parameters to optimize cerebral perfusion and minimize risk of hemorrhage 6. Monitor labs and diagnostic tests 7. Administer anti-seizure medications as ordered 8. Maintain airway, patient safety and administer oxygen as ordered 9. Monitor patient for seizure activity, document and report duration and description of seizure toLIP 10. If seizure occurs, turn patient to side and suction secretions as needed 11. Reorient patient post seizure 12. Seizure pads on all 4 side rails 13. Instruct patient/family to notify RN of any seizure activity 14. Instruct patient/family to call for assistance with activity based on assessment 15. Utilize bleeding precautions if thrombolytic given Outcome: Progressing Note: Evaluation of progress towards goal: Patients neuro exam remains stable this shift Problem: Activity Intolerance/Impaired Mobility Goal: Mobility/activity is maintained at optimum level for patient Description: Patient's goal is: INTERVENTIONS 1. Assess and monitor patient barriers to mobility and need for assistive/adaptive devices 2. Assess patient's emotional response to limitations 3. Collaborate with interdisciplinary teams and initiate plans and interventions as ordered 4. Encourage independent activity per tolerance 5. Maintain proper body alignment 6. Perform active/passive ROM as tolerated/ordered 7. Coordinate activities to conserve energy 8. Reposition patient 9. Ensure adequate rest/sleep time Outcome: Progressing Note: Evaluation of progress towards goal: patient out of bed with assistance this shift Problem: Communication Impairment Goal: Ability to express needs and understand communication Description: INTERVENTIONS 1. Assess patient's communication skills and ability to understand information 2. Provide alternate method of communication if needed i.e. ipad, sign board, pen/paper 3. Collaborate with Speech Therapy to develop effective communication strategies 4. Include patient/patient data entry representative in decisions related to communication Outcome: Progressing Note: Evaluation of progress towards goal: patient needs assistance with communication thi sshift Problem: Potential for Aspiration Goal: Patient's risk of aspiration is minimized Description: INTERVENTIONS 1. Assess and monitor vital signs, respiratory status, and labs (WBC) 2. Monitor for signs of aspiration (tachypnea, cough, rales, wheezing, cyanosis, fever) 3. Assess and monitor patient's ability to swallow 4. Place patient up in chair to eat if possible 5. Elevate head of bed 90 degrees to eat if unable to get patient up into chair 6. Supervise patient during oral intake 7. Instruct patient to take small bites 8. Instruct patient to take small single sips when taking liquids 9. Follow patient-specific strategies generated by speech pathologist 10. Complete bedside swallow screen if appropriate and take actions as indicated. 11. Administer prescribed medications and monitor effects Outcome: Progressing Note: Evaluation of progress towards goal: head of bed at least 30 degrees this shift Problem: Self Care Deficit Goal: Return ADL status to a safe level of function Description: Patient's goal is: INTERVENTIONS 1. Administer medication as ordered 2. Assess ADL deficits and provide assistive devices as needed 3. Obtain PT/OT consults as needed 4. Assist and instruct patient to increase activity and self care as tolerated Outcome: Progressing Note: Evaluation of progress towards goal: patient needs assistance with ADLs thi sshift Problem: Safety - Medical Restraint Goal: Remains free of injury from restraints (Restraint for Interference with Um Nurse) Description: INTERVENTIONS: 1. Determine that other, less restrictive measures have been tried or would not be effective beforeapplying the restraint 2. Evaluate the patient's condition at the time of restraint application 3. Inform patient/family regarding the reason for restraint 4. Q2H: Monitor safety, Vital signs, psychosocial status, signs of injury, skin integrity, circulation, neurovascular status in affected extremities, respiratory status, comfort, nutrition and hydration, hygiene, ROM, elimination needs 5. Doctor will be notified of restraint 6. RN properly applies restraints per physician order Outcome: Progressing Note: Evaluation of progress towards goal: Patient remains safe this shift Goal: Free from restraint(s) (Restraint for Interference with Um Nurse) Description: INTERVENTIONS: 1. ONCE/SHIFT or MINIMUM Q12H: Assess and document the continuing need for restraints 2. Order is valid for the duration of the episode of care 3. Discontinue at the earliest possible time once the reason for restraints no longer exists 4. Identify and implement measures to help patient regain control 5. Food, fluids, and toilet offered at a minimum of every 2 hours 6. RN modifies the patient's plan of care by entering a problem statement related to safety; individualizes the safety outcome Outcome: Progressing Note: Evaluation of progress towards goal: patient remains in restraints this shift * Plan of Care - Aliza Coulter RCP - 04/08/2023 8:28 AM EST Problem: Inadequate Airway Clearance Goal: Patient will maintain patent airway Description: INTERVENTIONS 1. Assess and monitor breath sounds, cough and sputum (if present) 2. Monitor respiratory rate and oxygen saturation 3. Collaborate with respiratory therapy to administer medication, oxygen, and suitable airway clearance techniques as ordered 4. Position patient for maximum ventilatory efficiency; elevate head of bed at least 30 degrees if appropriate 5. Provide adequate fluid intake to liquify secretions if appropriate 6. Suction secretions as indicated to maintain patent airway 7. Instruct patient to turn, cough, and deep breathe; encourage incentive spirometer if indicated Outcome: Progressing Note: Evaluation of progress towards goal: reviewed and continued. Respiratory Therapy Clinical Practice Guidelines Consult Clinical Practice Guidelines Ordered Consult Assessment: Consult, Oxygen, Broncho-pulmonary hygiene, Bronchodilator Oxygen Indications: Hypoxemia Broncho-pulmonary Hygiene Indications: To prevent/reverse atelectasis Broncho-pulmonary Hygiene Total: 2 Bronchodilator Indications: Bronchospasm/wheezing Bronchodilator Total: 1 Vital Signs Pulse: 84 Resp: 21 SpO2: 92 % O2 Device: Nasal cannula O2 Flow Rate (L/min): 6 L/min Respiratory Assessment Assessment Type: Post-treatment Level of Consciousness: Alert, Responds to Voice Respiratory Pattern: Regular Chest Assessment: Chest expansion symmetrical Bilateral Breath Sounds: Diminished, Crackles/Rales Cough Cough: Occasional, Non-productive, Moist, Strong Patient Active Problem List Diagnosis 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CMS-HCC) Last Chest XRAY: Reviewed Pulmonary History: see above. RT Reassessment Due In: 12 hours Bronchodilator Respiratory Rate Level 1: Less than 20 Dyspnea Level 2: Periodic SOB Breath Sounds Level 2: Diminished and/or faint wheezes Respiratory History Level 2: Positive risk factors including but not limited to: History of smoking; History of pulmonary complications ; Smoke inhalation, physical/chemical trauma to the lung or upper airway Oxygen to Keep SpO2 Greater Than Or Equal To 92% Level 3: 4-6 LPM or >35% - <50% ; NIV 51 - 65% Peak Flow ([facility] Only) Home Therapy: Not Applicable Patients Current Level & Intervention: 2 Three times daily and Q4 PRN for wheezing * Plan of Care - Ericka Marx RCP - 04/07/2023 8:27 PM EST Problem: Inadequate Airway Clearance Goal: Patient will maintain patent airway Description: INTERVENTIONS 1. Assess and monitor breath sounds, cough and sputum (if present) 2. Monitor respiratory rate and oxygen saturation 3. Collaborate with respiratory therapy to administer medication, oxygen, and suitable airway clearance techniques as ordered 4. Position patient for maximum ventilatory efficiency; elevate head of bed at least 30 degrees if appropriate 5. Provide adequate fluid intake to liquify secretions if appropriate 6. Suction secretions as indicated to maintain patent airway 7. Instruct patient to turn, cough, and deep breathe; encourage incentive spirometer if indicated Outcome: Progressing Note: Evaluation of progress towards goal: Pt is stable on current respiratory plan Respiratory Therapy Clinical Practice Guidelines Consult Vital Signs Pulse: 83 Heart Rate Source: Monitor Resp: 19 SpO2: 97 % O2 Device: Nasal cannula O2 Flow Rate (L/min): 6 L/min FiO2 (%): 28 % Patient Position: Semi-fowlers Respiratory Assessment Assessment Type: Post-treatment Level of Consciousness: Responds to Voice, Alert Respiratory Pattern: Regular Chest Assessment: Chest expansion symmetrical, Trachea midline Bilateral Breath Sounds: Diminished Patient Active Problem List Diagnosis 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CMS-HCC) Last Chest XRAY: Reviewed Pulmonary History: reviewed RT Reassessment Due In: 12 hours Broncho-Pulmonary Hygiene Level of Movement Level 3: Low level of mobility Breath Sounds Level 2: Diminished and/or coarse rhonchi Cough Level 3: Ineffective, weak, frequent Chest X-Ray Level 3: Presence of atelectasis and/or consolidation Sputum Production Level 1: None or small amount of thin or watery secretions with effective cough History & Physical Level 1: None or New onset of bronchitis or existing chronic pulmonary condition. (not in an exacerbation) SpO2 to O2 Need Level 2: >92% on room air or NC < 3 lpm Patients Current Level & Intervention: 3 BPH technique per algorithm QID and PRN * Plan of Care - Carol Waite RN - 04/07/2023 7:17 PM EST Problem: Pain Goal: Patient goal is pain score less than 4, able to rest, and participant in treatment plan as appropriate Description: INTERVENTIONS: 1. Encourage patient or legal data entry representative to report early pain and ask for pain medicine when needed 2. Assess pain using appropriate pain scale and include the scale used when documenting 3. Administer analgesics based on type and severity of pain and evaluate response within appropriate time frame 4. Implement non-pharmacological measures as appropriate and evaluate response 5. Consider cultural and social influences on pain and pain management 6. Notify LIP if interventions ineffective or patient reports new pain 7. Monitor vital signs including pulse ox, end-tidal CO2 based on pain intervention 8. Reassess pain per policy 9. Teach patient or legal data entry representative interventions for comforting Outcome: Progressing Note: Evaluation of progress towards goal: Patient has PRN pain medication. Checking with every assessment. Monitoring vitals. Problem: Safety Goal: Patient will be injury free during hospitalization Description: INTERVENTIONS: 1. Assess patient's risk for falls and implement fall prevention plan of care per policy 2. Provide and maintain a safe environment 3. Proper use of double Identifiers 4. Medication administration using the 5 rights 5. Hand hygiene 6. Specimens are labeled at the bedside 7. Instruct patient/ patient data entry representative about use of safety devices 8. Include patient/ patient data entry representative in decisions related to safety Outcome: Progressing Note: Evaluation of progress towards goal: Patient safety maintained, call light in reach, area clear of hazards, hourly rounding continued, bed locked in lowest position, alarm on as applicable, nonskid socks on, safety educated completed with patient/family, no injuries noted at this time. Problem: Infection Goal: Absence of infection during hospitalization Description: Interventions: 1. Assess and monitor for signs and symptoms of infection 2. Monitor lab/diagnostic results 3. Monitor all insertion sites i.e., indwelling lines, tubes and drains 4. Monitor endotracheal (as able) and nasal secretions for changes in amount and color 5. Administer medications as ordered 6. Instruct and encourage patient and family to use good hand hygiene technique 7. Identify and instruct patient/patient data entry representative in use of appropriate isolation precautionsfor identified infection/symptoms 8. Provide and discuss with patient/patient data entry representative on educational MDRO sheet 9. Encourage and monitor nutritional status daily and consult commercial administrator if indicated 10. Implement neutropenic guidelines as needed 11. Review exposure to history of communicable disease and recent travel history on admission 12. Encourage annual influenza vaccine 13. Encourage pneumonia vaccine Outcome: Progressing Note: Evaluation of progress towards goal: Patient remains free from signs of infection at this time. Will continue to monitor. Problem: Knowledge Deficit Goal: Patient/patient data entry representative demonstrates understanding of disease process, treatment plan,medications, and discharge instructions Description: INTERVENTIONS 1. Complete learning assessment and assess knowledge base 2. Provide teaching at level of understanding 3. Provide teaching via preferred learning method(s) Outcome: Progressing Note: Evaluation of progress towards goal: Care plan discussed & goals for shift set with patient input appreciated. All questions answered. Problem: Discharge Planning Goal: Discharge to post-acute care, other facility, or home with appropriate resources Description: Patient's goal is: INTERVENTIONS 1. Conduct assessment to determine patient/family and health care team treatment goals, and need for post-acute services based on payer coverage, community resources, and patient preferences, and barriers to discharge 2. Coordinate with Social work, Care Navigation, and Utilization Review to arrange appropriate level of services according to patient's needs based on patient preference and payer coverage in collaboration with the physician and health care team 3. Address psychosocial, clinical, and financial barriers to discharge as identified in assessment in conjunction with the patient/family and health care team 4. Consult appropriate ancillary services (i.e.. PT/OT/ST, etc) as needed 5. Communicate with and update the patient/family, physician, and health care team regarding progress on the discharge plan 6. Identify discharge learning needs (meds, wound care, etc). 7. Arrange for needed discharge transportation as appropriate Outcome: Progressing Note: Evaluation of progress towards goal: Discharge planning in progress, not yet appropriate for discharge. Will continue to evaluate barriers. Problem: Potential for Compromised Skin Integrity Goal: Skin integrity is maintained or improved Description: Patient's goal is: INTERVENTIONS 1. Perform initial skin assessment on admission and as needed 2. Turn patient every 2 hours and PRN 3. Relieve pressure to bony prominences 4. Avoid shearing 5. Keep skin clean and dry 6. Alternate a full bath with partial baths for elderly 7. Encourage use of lotion/moisturizer on skin 8. Monitor patient's hygiene practices 9. Float heels 10. Collaborate with interdisciplinary team and initiate plans and interventions as needed Outcome: Progressing Note: Evaluation of progress towards goal: No new skin breakdown noted, turned q 2 and PRN. Skin isclean, dry, and intact. Goal: Patient's nutritional intake is adequate Description: Patient's goal is: INTERVENTIONS 1. Assess and monitor food intake and supplements, patient food preferences, nausea, vomiting, labs, oral cavity (gums, teeth, tongue, mucosa), proper denture fit, and cultural beliefs 2. Monitor for signs of hypoglycemia and hyperglycemia 3. Collaborate with interdisciplinary team and initiate plan and interventions as ordered 4. Monitor patient's weight 5. Assist patient with meals/food selection 6. Assist patient with eating 7. Allow adequate time for meals 8. Provide pleasant environment during mealtime 9. Increase social contact during mealtimes 10. Plan activities to conserve energy 11. Encourage/perform oral hygiene as appropriate 12. Encourage patient to take dietary supplement as ordered 13. Collaborate with clinical commercial administrator 14. Include patient/ patient's data entry representative in decisions related to nutrition Outcome: Progressing Note: Evaluation of progress towards goal: Intake documented, weight documented every day. Monitoring for any nausea, vomiting and diarrhea. Patients nutritional intake is adequate at this time. Willcontinue to monitor Problem: Urinary Incontinence Goal: Perineal skin integrity is maintained or improved Description: INTERVENTIONS 1. Assess genitourinary system, perineal skin, labs (urinalysis), and history of incontinence to include past management, aggravating, and alleviating factors 2. Keep skin clean and dry 3. Apply skin protectant 4. Develop skin care regimen 5. Provide privacy when changing patients incontinence device to maintain their dignity 6. Consider placing an indwelling catheter 7. Collaborate with interdisciplinary team and initiate plans and interventions as needed Outcome: Progressing Note: Evaluation of progress towards goal: Perineal skin integrity remains clean, dry, and intact with no redness or s/s of breakdown. Skin care regimen considered as needed. Collaboration with interdisciplinary teams considered as needed. Problem: Moderate - High Risk Fall Score Description: [place] Fall Score of =/> 25 or indicated by [facility] Assessment Goal: Patient should be free from fall Description: Interventions: 1. Olds to environment 2. Hourly rounds addressing the 4 P's (Pain, Positioning, Possessions, Potty) 3. Clear area of hazards (spills, clutter, electrical cords, unnecessary equipment) 4. Place equipment (bed & TV controls, call light, phone, urinal) within reach 5. Encourage patient to wear glasses and hearing aides as appropriate 6. Maintain bed in lowest position 7. Lock wheels on bed/wheelchair 8. Provide adequate lighting, including night light 9. Assess need for additional bedding, food/fluids, pain med's prior to sleep/routinely 10. Provide gripper slippers or personal non-skid footwear 11. Teach patient and patient data entry representative to maintain environment for safety and engage in all aspects of fall prevention program 12. Remind patient to call for help before getting out of bed 13. Initiate bed/chair/exit alarms supportive devices as appropriate, (chair wedge, no-skid floor mat, raised edge mattress, hip protectors) 14. Locate patient bed assignment for optimal visualization 15. Evaluate and identify Safe Patient Handling Equipment needs 16. Provide supervision when out of bed or chair 17. Utilize gait belt as needed to assist with ambulation 18. Place adaptive equipment (cane, walker) within reach 19. Request patient data entry representative bring adaptive equipment/mobility aids from home or obtain and provide as needed 20. Consult pharmacy regarding effects of med's affecting mobility, cognition, and alternatives 21. Obtain physician order for PT if risk factors associated with mobility are present 22. Obtain physician order for OT as appropriate 23. Utilize diversional activities 24. Educate patient and patient data entry representative how to maintain a safe environment during visitationtimes (notify nurse prior to leaving bedside) 25. Consider appropriateness of medical or non-medical driver 26. Set up voiding schedule as appropriate (every 2 hours) Outcome: Progressing Note: Evaluation of progress towards goal: Patient remains free from falls and injury, fall risk IDband on, fall prevention education and precautions provided and in place. Patient verbalizes and demonstrates understanding, hourly rounds maintained. Problem: Neurological Deficit Goal: Neurological status is stable or improving Description: Patient's goal is: INTERVENTIONS 1. Complete Neurological assessment as indicated/ordered 2. Initiate measures to prevent increased intracranial pressure 3. Monitor and assess patient's level of consciousness, motor function, sensory function, and levelof assistance needed for ADLs 4. Monitor and report changes from baseline 5. Maintain blood pressure and fluid volume within ordered parameters to optimize cerebral perfusion and minimize risk of hemorrhage 6. Monitor labs and diagnostic tests 7. Administer anti-seizure medications as ordered 8. Maintain airway, patient safety and administer oxygen as ordered 9. Monitor patient for seizure activity, document and report duration and description of seizure toLIP 10. If seizure occurs, turn patient to side and suction secretions as needed 11. Reorient patient post seizure 12. Seizure pads on all 4 side rails 13. Instruct patient/family to notify RN of any seizure activity 14. Instruct patient/family to call for assistance with activity based on assessment 15. Utilize bleeding precautions if thrombolytic given Outcome: Progressing Note: Evaluation of progress towards goal: Patient's level of consciousness, motor function, sensory function, and level of assistance needed for ADLs all monitored and assessed at this time. Changesfrom baseline reported to necessary personal when needed. Patients care is optimized for cerebral perfusion accordingly to patients orders. Problem: Activity Intolerance/Impaired Mobility Goal: Mobility/activity is maintained at optimum level for patient Description: Patient's goal is: INTERVENTIONS 1. Assess and monitor patient barriers to mobility and need for assistive/adaptive devices 2. Assess patient's emotional response to limitations 3. Collaborate with interdisciplinary teams and initiate plans and interventions as ordered 4. Encourage independent activity per tolerance 5. Maintain proper body alignment 6. Perform active/passive ROM as tolerated/ordered 7. Coordinate activities to conserve energy 8. Reposition patient 9. Ensure adequate rest/sleep time Outcome: Progressing Note: Evaluation of progress towards goal: Patient's ADL assessed each shift. PT/OT/SP ordered and evaluated as appropriate. Problem: Communication Impairment Goal: Ability to express needs and understand communication Description: INTERVENTIONS 1. Assess patient's communication skills and ability to understand information 2. Provide alternate method of communication if needed i.e. ipad, sign board, pen/paper 3. Collaborate with Speech Therapy to develop effective communication strategies 4. Include patient/patient data entry representative in decisions related to communication Outcome: Progressing Note: Evaluation of progress towards goal: Patient/family able to express needs and understands communication at this time. Problem: Potential for Aspiration Goal: Patient's risk of aspiration is minimized Description: INTERVENTIONS 1. Assess and monitor vital signs, respiratory status, and labs (WBC) 2. Monitor for signs of aspiration (tachypnea, cough, rales, wheezing, cyanosis, fever) 3. Assess and monitor patient's ability to swallow 4. Place patient up in chair to eat if possible 5. Elevate head of bed 90 degrees to eat if unable to get patient up into chair 6. Supervise patient during oral intake 7. Instruct patient to take small bites 8. Instruct patient to take small single sips when taking liquids 9. Follow patient-specific strategies generated by speech pathologist 10. Complete bedside swallow screen if appropriate and take actions as indicated. 11. Administer prescribed medications and monitor effects Outcome: Progressing Note: Evaluation of progress towards goal: Risk for aspiration assessed continuously for patient. Problem: Self Care Deficit Goal: Return ADL status to a safe level of function Description: Patient's goal is: INTERVENTIONS 1. Administer medication as ordered 2. Assess ADL deficits and provide assistive devices as needed 3. Obtain PT/OT consults as needed 4. Assist and instruct patient to increase activity and self care as tolerated Outcome: Progressing Note: Evaluation of progress towards goal: Patient's ADL assessed each shift. PT/OT/SP ordered and evaluated as appropriate. Problem: Safety - Medical Restraint Goal: Remains free of injury from restraints (Restraint for Interference with Um Nurse) Description: INTERVENTIONS: 1. Determine that other, less restrictive measures have been tried or would not be effective beforeapplying the restraint 2. Evaluate the patient's condition at the time of restraint application 3. Inform patient/family regarding the reason for restraint 4. Q2H: Monitor safety, Vital signs, psychosocial status, signs of injury, skin integrity, circulation, neurovascular status in affected extremities, respiratory status, comfort, nutrition and hydration, hygiene, ROM, elimination needs 5. Doctor will be notified of restraint 6. RN properly applies restraints per physician order Outcome: Progressing Note: Evaluation of progress towards goal: Restraints continue, patient continues to pull at lines,tubes, and drains. Q 2 hour assessments for need, safety, circulation, and skin continue. Patient remains restrained at this time, active order in place. Goal: Free from restraint(s) (Restraint for Interference with Um Nurse) Description: INTERVENTIONS: 1. ONCE/SHIFT or MINIMUM Q12H: Assess and document the continuing need for restraints 2. Order is valid for the duration of the episode of care 3. Discontinue at the earliest possible time once the reason for restraints no longer exists 4. Identify and implement measures to help patient regain control 5. Food, fluids, and toilet offered at a minimum of every 2 hours 6. RN modifies the patient's plan of care by entering a problem statement related to safety; individualizes the safety outcome Outcome: Progressing Note: Evaluation of progress towards goal: Restraints continue, patient continues to pull at lines,tubes, and drains. Q 2 hour assessments for need, safety, circulation, and skin continue. Patient remains restrained at this time, active order in place. Problem: Multi-Drug Resistant Organism / Rule-Out Infection Prevention Goal: Prevent transmission of infection Description: INTERVENTIONS 1. Place patient in private room or in room with patient with same disease 2. Discard single-use items 3. Clean reusable equipment between patients 4. Wear gloves for direct and indirect contact with patient or contaminants 5. Change gloves between tasks and procedures 6. Wash hands before and after caring for each patient 7. Wear appropriate personal protective equipment in relation to the indicated isolation type 8. Place appropriate isolation signage on patient's door 9. Provide patient/ patient data entry representative with isolation education. Outcome: Progressing Note: Evaluation of progress towards goal: Labs and vitals monitored as ordered. Medications administered as ordered. Patient remains free from infection at this time. Problem: Inadequate Airway Clearance Goal: Patient will maintain patent airway Description: INTERVENTIONS 1. Assess and monitor breath sounds, cough and sputum (if present) 2. Monitor respiratory rate and oxygen saturation 3. Collaborate with respiratory therapy to administer medication, oxygen, and suitable airway clearance techniques as ordered 4. Position patient for maximum ventilatory efficiency; elevate head of bed at least 30 degrees if appropriate 5. Provide adequate fluid intake to liquify secretions if appropriate 6. Suction secretions as indicated to maintain patent airway 7. Instruct patient to turn, cough, and deep breathe; encourage incentive spirometer if indicated Outcome: Progressing Note: Evaluation of progress towards goal: Patient maintaining patent airway. Continues to be on 5Lnasal cannula. * Plan of Care - Aliza Coulter RCP - 04/07/2023 8:37 AM EST Problem: Inadequate Airway Clearance Goal: Patient will maintain patent airway Description: INTERVENTIONS 1. Assess and monitor breath sounds, cough and sputum (if present) 2. Monitor respiratory rate and oxygen saturation 3. Collaborate with respiratory therapy to administer medication, oxygen, and suitable airway clearance techniques as ordered 4. Position patient for maximum ventilatory efficiency; elevate head of bed at least 30 degrees if appropriate 5. Provide adequate fluid intake to liquify secretions if appropriate 6. Suction secretions as indicated to maintain patent airway 7. Instruct patient to turn, cough, and deep breathe; encourage incentive spirometer if indicated Outcome: Progressing Note: Evaluation of progress towards goal: reviewed and continued. Respiratory Therapy Clinical Practice Guidelines Consult Clinical Practice Guidelines Ordered Consult Assessment: Consult, Oxygen, Broncho-pulmonary hygiene, Bronchodilator Oxygen Indications: Hypoxemia Broncho-pulmonary Hygiene Indications: To prevent/reverse atelectasis Broncho-pulmonary Hygiene Total: 2 Bronchodilator Indications: Bronchospasm/wheezing Bronchodilator Total: 1 Vital Signs Pulse: 90 Resp: 21 SpO2: 98 % O2 Device: Nasal cannula (with FT 8 lpm@35%.) O2 Flow Rate (L/min): 6 L/min Respiratory Assessment Assessment Type: Post-treatment Level of Consciousness: Alert, Responds to Voice Respiratory Pattern: Regular Chest Assessment: Chest expansion symmetrical Bilateral Breath Sounds: Crackles/Rales, Diminished Cough Cough: Occasional, Non-productive, Strong, Moist Patient Active Problem List Diagnosis 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CMS-HCC) Last Chest XRAY: Reviewed Pulmonary History: see above. RT Reassessment Due In: 12 hours Broncho-Pulmonary Hygiene Level of Movement Level 1: Actively changing positions without assistance Breath Sounds Level 2: Diminished and/or coarse rhonchi Cough Level 3: Ineffective, weak, frequent Chest X-Ray Level 3: Presence of atelectasis and/or consolidation Sputum Production Level 2: Able to produce small to moderate amount of moderately thick secretions History & Physical Level 1: None or New onset of bronchitis or existing chronic pulmonary condition. (not in an exacerbation) SpO2 to O2 Need Level 3: >92% on NC @ 4-6lpm Patients Current Level & Intervention: 2 BPH technique per algorithm TID and PRN * Plan of Care - Paula Castillo RN - 04/07/2023 7:10 AM EST Problem: Pain Goal: Patient goal is pain score less than 4, able to rest, and participant in treatment plan as appropriate Description: INTERVENTIONS: 1. Encourage patient or legal data entry representative to report early pain and ask for pain medicine when needed 2. Assess pain using appropriate pain scale and include the scale used when documenting 3. Administer analgesics based on type and severity of pain and evaluate response within appropriate time frame 4. Implement non-pharmacological measures as appropriate and evaluate response 5. Consider cultural and social influences on pain and pain management 6. Notify LIP if interventions ineffective or patient reports new pain 7. Monitor vital signs including pulse ox, end-tidal CO2 based on pain intervention 8. Reassess pain per policy 9. Teach patient or legal data entry representative interventions for comforting Outcome: Progressing Note: Evaluation of progress towards goal: Patient states that pain is well controlled with PRN analgesics, reports a pain score of 0/10 at this time. Will continue to monitor for s/s of pain. Problem: Safety Goal: Patient will be injury free during hospitalization Description: INTERVENTIONS: 1. Assess patient's risk for falls and implement fall prevention plan of care per policy 2. Provide and maintain a safe environment 3. Proper use of double Identifiers 4. Medication administration using the 5 rights 5. Hand hygiene 6. Specimens are labeled at the bedside 7. Instruct patient/ patient data entry representative about use of safety devices 8. Include patient/ patient data entry representative in decisions related to safety Outcome: Progressing Note: Evaluation of progress towards goal: Patient remains free from injury, hourly rounds maintained. Problem: Infection Goal: Absence of infection during hospitalization Description: Interventions: 1. Assess and monitor for signs and symptoms of infection 2. Monitor lab/diagnostic results 3. Monitor all insertion sites i.e., indwelling lines, tubes and drains 4. Monitor endotracheal (as able) and nasal secretions for changes in amount and color 5. Administer medications as ordered 6. Instruct and encourage patient and family to use good hand hygiene technique 7. Identify and instruct patient/patient data entry representative in use of appropriate isolation precautionsfor identified infection/symptoms 8. Provide and discuss with patient/patient data entry representative on educational MDRO sheet 9. Encourage and monitor nutritional status daily and consult commercial administrator if indicated 10. Implement neutropenic guidelines as needed 11. Review exposure to history of communicable disease and recent travel history on admission 12. Encourage annual influenza vaccine 13. Encourage pneumonia vaccine Outcome: Progressing Note: Evaluation of progress towards goal: pt is afebrile at this time Problem: Knowledge Deficit Goal: Patient/patient data entry representative demonstrates understanding of disease process, treatment plan,medications, and discharge instructions Description: INTERVENTIONS 1. Complete learning assessment and assess knowledge base 2. Provide teaching at level of understanding 3. Provide teaching via preferred learning method(s) Outcome: Progressing Note: Evaluation of progress towards goal: Patients family verbalizes understanding of plan of care, education provided q shift and PRN. Will continue to reinforce. Problem: Discharge Planning Goal: Discharge to post-acute care, other facility, or home with appropriate resources Description: Patient's goal is: INTERVENTIONS 1. Conduct assessment to determine patient/family and health care team treatment goals, and need for post-acute services based on payer coverage, community resources, and patient preferences, and barriers to discharge 2. Coordinate with Social work, Care Navigation, and Utilization Review to arrange appropriate level of services according to patient's needs based on patient preference and payer coverage in collaboration with the physician and health care team 3. Address psychosocial, clinical, and financial barriers to discharge as identified in assessment in conjunction with the patient/family and health care team 4. Consult appropriate ancillary services (i.e.. PT/OT/ST, etc) as needed 5. Communicate with and update the patient/family, physician, and health care team regarding progress on the discharge plan 6. Identify discharge learning needs (meds, wound care, etc). 7. Arrange for needed discharge transportation as appropriate Outcome: Progressing Note: Evaluation of progress towards goal: Discharge planning in progress, not yet appropriate for discharge. Will continue to evaluate barriers. Problem: Potential for Compromised Skin Integrity Goal: Skin integrity is maintained or improved Description: Patient's goal is: INTERVENTIONS 1. Perform initial skin assessment on admission and as needed 2. Turn patient every 2 hours and PRN 3. Relieve pressure to bony prominences 4. Avoid shearing 5. Keep skin clean and dry 6. Alternate a full bath with partial baths for elderly 7. Encourage use of lotion/moisturizer on skin 8. Monitor patient's hygiene practices 9. Float heels 10. Collaborate with interdisciplinary team and initiate plans and interventions as needed Outcome: Progressing Note: Evaluation of progress towards goal: No new skin breakdown noted, turned q 2 and PRN. Skin isclean, dry, and intact. Goal: Patient's nutritional intake is adequate Description: Patient's goal is: INTERVENTIONS 1. Assess and monitor food intake and supplements, patient food preferences, nausea, vomiting, labs, oral cavity (gums, teeth, tongue, mucosa), proper denture fit, and cultural beliefs 2. Monitor for signs of hypoglycemia and hyperglycemia 3. Collaborate with interdisciplinary team and initiate plan and interventions as ordered 4. Monitor patient's weight 5. Assist patient with meals/food selection 6. Assist patient with eating 7. Allow adequate time for meals 8. Provide pleasant environment during mealtime 9. Increase social contact during mealtimes 10. Plan activities to conserve energy 11. Encourage/perform oral hygiene as appropriate 12. Encourage patient to take dietary supplement as ordered 13. Collaborate with clinical commercial administrator 14. Include patient/ patient's data entry representative in decisions related to nutrition Outcome: Progressing Note: Evaluation of progress towards goal: pt currently NPO due to respiratory status Problem: Urinary Incontinence Goal: Perineal skin integrity is maintained or improved Description: INTERVENTIONS 1. Assess genitourinary system, perineal skin, labs (urinalysis), and history of incontinence to include past management, aggravating, and alleviating factors 2. Keep skin clean and dry 3. Apply skin protectant 4. Develop skin care regimen 5. Provide privacy when changing patients incontinence device to maintain their dignity 6. Consider placing an indwelling catheter 7. Collaborate with interdisciplinary team and initiate plans and interventions as needed Outcome: Progressing Note: Evaluation of progress towards goal: No new skin breakdown noted, turned q 2 and PRN. Skin isclean, dry, and intact. Problem: Moderate - High Risk Fall Score Description: [place] Fall Score of =/> 25 or indicated by [facility] Assessment Goal: Patient should be free from fall Description: Interventions: 1. Olds to environment 2. Hourly rounds addressing the 4 P's (Pain, Positioning, Possessions, Potty) 3. Clear area of hazards (spills, clutter, electrical cords, unnecessary equipment) 4. Place equipment (bed & TV controls, call light, phone, urinal) within reach 5. Encourage patient to wear glasses and hearing aides as appropriate 6. Maintain bed in lowest position 7. Lock wheels on bed/wheelchair 8. Provide adequate lighting, including night light 9. Assess need for additional bedding, food/fluids, pain med's prior to sleep/routinely 10. Provide gripper slippers or personal non-skid footwear 11. Teach patient and patient data entry representative to maintain environment for safety and engage in all aspects of fall prevention program 12. Remind patient to call for help before getting out of bed 13. Initiate bed/chair/exit alarms supportive devices as appropriate, (chair wedge, no-skid floor mat, raised edge mattress, hip protectors) 14. Locate patient bed assignment for optimal visualization 15. Evaluate and identify Safe Patient Handling Equipment needs 16. Provide supervision when out of bed or chair 17. Utilize gait belt as needed to assist with ambulation 18. Place adaptive equipment (cane, walker) within reach 19. Request patient data entry representative bring adaptive equipment/mobility aids from home or obtain and provide as needed 20. Consult pharmacy regarding effects of med's affecting mobility, cognition, and alternatives 21. Obtain physician order for PT if risk factors associated with mobility are present 22. Obtain physician order for OT as appropriate 23. Utilize diversional activities 24. Educate patient and patient data entry representative how to maintain a safe environment during visitationtimes (notify nurse prior to leaving bedside) 25. Consider appropriateness of medical or non-medical driver 26. Set up voiding schedule as appropriate (every 2 hours) Outcome: Progressing Note: Evaluation of progress towards goal: Patient remains free from falls and injury, fall risk IDband on, fall prevention education and precautions provided and in place. Patient verbalizes and demonstrates understanding, hourly rounds maintained. Problem: Neurological Deficit Goal: Neurological status is stable or improving Description: Patient's goal is: INTERVENTIONS 1. Complete Neurological assessment as indicated/ordered 2. Initiate measures to prevent increased intracranial pressure 3. Monitor and assess patient's level of consciousness, motor function, sensory function, and levelof assistance needed for ADLs 4. Monitor and report changes from baseline 5. Maintain blood pressure and fluid volume within ordered parameters to optimize cerebral perfusion and minimize risk of hemorrhage 6. Monitor labs and diagnostic tests 7. Administer anti-seizure medications as ordered 8. Maintain airway, patient safety and administer oxygen as ordered 9. Monitor patient for seizure activity, document and report duration and description of seizure toLIP 10. If seizure occurs, turn patient to side and suction secretions as needed 11. Reorient patient post seizure 12. Seizure pads on all 4 side rails 13. Instruct patient/family to notify RN of any seizure activity 14. Instruct patient/family to call for assistance with activity based on assessment 15. Utilize bleeding precautions if thrombolytic given Outcome: Progressing Note: Evaluation of progress towards goal: neurological status unchanged Problem: Activity Intolerance/Impaired Mobility Goal: Mobility/activity is maintained at optimum level for patient Description: Patient's goal is: INTERVENTIONS 1. Assess and monitor patient barriers to mobility and need for assistive/adaptive devices 2. Assess patient's emotional response to limitations 3. Collaborate with interdisciplinary teams and initiate plans and interventions as ordered 4. Encourage independent activity per tolerance 5. Maintain proper body alignment 6. Perform active/passive ROM as tolerated/ordered 7. Coordinate activities to conserve energy 8. Reposition patient 9. Ensure adequate rest/sleep time Outcome: Progressing Note: Evaluation of progress towards goal: pt needs assistance with ADLS Problem: Communication Impairment Goal: Ability to express needs and understand communication Description: INTERVENTIONS 1. Assess patient's communication skills and ability to understand information 2. Provide alternate method of communication if needed i.e. ipad, sign board, pen/paper 3. Collaborate with Speech Therapy to develop effective communication strategies 4. Include patient/patient data entry representative in decisions related to communication Outcome: Progressing Note: Evaluation of progress towards goal: pt non verbal Problem: Potential for Aspiration Goal: Patient's risk of aspiration is minimized Description: INTERVENTIONS 1. Assess and monitor vital signs, respiratory status, and labs (WBC) 2. Monitor for signs of aspiration (tachypnea, cough, rales, wheezing, cyanosis, fever) 3. Assess and monitor patient's ability to swallow 4. Place patient up in chair to eat if possible 5. Elevate head of bed 90 degrees to eat if unable to get patient up into chair 6. Supervise patient during oral intake 7. Instruct patient to take small bites 8. Instruct patient to take small single sips when taking liquids 9. Follow patient-specific strategies generated by speech pathologist 10. Complete bedside swallow screen if appropriate and take actions as indicated. 11. Administer prescribed medications and monitor effects Outcome: Progressing Note: Evaluation of progress towards goal: pt at risk of aspiration at this time Problem: Self Care Deficit Goal: Return ADL status to a safe level of function Description: Patient's goal is: INTERVENTIONS 1. Administer medication as ordered 2. Assess ADL deficits and provide assistive devices as needed 3. Obtain PT/OT consults as needed 4. Assist and instruct patient to increase activity and self care as tolerated Outcome: Progressing Note: Evaluation of progress towards goal: pt needs assistance with adls Problem: Safety - Medical Restraint Goal: Remains free of injury from restraints (Restraint for Interference with Um Nurse) Description: INTERVENTIONS: 1. Determine that other, less restrictive measures have been tried or would not be effective beforeapplying the restraint 2. Evaluate the patient's condition at the time of restraint application 3. Inform patient/family regarding the reason for restraint 4. Q2H: Monitor safety, Vital signs, psychosocial status, signs of injury, skin integrity, circulation, neurovascular status in affected extremities, respiratory status, comfort, nutrition and hydration, hygiene, ROM, elimination needs 5. Doctor will be notified of restraint 6. RN properly applies restraints per physician order Outcome: Progressing Note: Evaluation of progress towards goal: pt is free from injury while in restraints Goal: Free from restraint(s) (Restraint for Interference with Um Nurse) Description: INTERVENTIONS: 1. ONCE/SHIFT or MINIMUM Q12H: Assess and document the continuing need for restraints 2. Order is valid for the duration of the episode of care 3. Discontinue at the earliest possible time once the reason for restraints no longer exists 4. Identify and implement measures to help patient regain control 5. Food, fluids, and toilet offered at a minimum of every 2 hours 6. RN modifies the patient's plan of care by entering a problem statement related to safety; individualizes the safety outcome Outcome: Progressing Note: Evaluation of progress towards goal: Restraints continue, patient continues to pull at lines,tubes, and drains. Q 2 hour assessments for need, safety, circulation, and skin continue. Patient remains restrained at this time, active order in place. Problem: Multi-Drug Resistant Organism / Rule-Out Infection Prevention Goal: Prevent transmission of infection Description: INTERVENTIONS 1. Place patient in private room or in room with patient with same disease 2. Discard single-use items 3. Clean reusable equipment between patients 4. Wear gloves for direct and indirect contact with patient or contaminants 5. Change gloves between tasks and procedures 6. Wash hands before and after caring for each patient 7. Wear appropriate personal protective equipment in relation to the indicated isolation type 8. Place appropriate isolation signage on patient's door 9. Provide patient/ patient data entry representative with isolation education. Outcome: Progressing Note: Evaluation of progress towards goal: will prevent the spread of transmission by standard precaution and proper hand hygiene Problem: Inadequate Airway Clearance Goal: Patient will maintain patent airway Description: INTERVENTIONS 1. Assess and monitor breath sounds, cough and sputum (if present) 2. Monitor respiratory rate and oxygen saturation 3. Collaborate with respiratory therapy to administer medication, oxygen, and suitable airway clearance techniques as ordered 4. Position patient for maximum ventilatory efficiency; elevate head of bed at least 30 degrees if appropriate 5. Provide adequate fluid intake to liquify secretions if appropriate 6. Suction secretions as indicated to maintain patent airway 7. Instruct patient to turn, cough, and deep breathe; encourage incentive spirometer if indicated Outcome: Progressing Note: Evaluation of progress towards goal: pt maintaining airway at this time Additional Comments: * Plan of Care - Carol Waite RN - 04/06/2023 8:54 PM EST Problem: Discharge Planning Goal: Discharge to post-acute care, other facility, or home with appropriate resources Description: Patient's goal is: INTERVENTIONS 1. Conduct assessment to determine patient/family and health care team treatment goals, and need for post-acute services based on payer coverage, community resources, and patient preferences, and barriers to discharge 2. Coordinate with Social work, Care Navigation, and Utilization Review to arrange appropriate level of services according to patient's needs based on patient preference and payer coverage in collaboration with the physician and health care team 3. Address psychosocial, clinical, and financial barriers to discharge as identified in assessment in conjunction with the patient/family and health care team 4. Consult appropriate ancillary services (i.e.. PT/OT/ST, etc) as needed 5. Communicate with and update the patient/family, physician, and health care team regarding progress on the discharge plan 6. Identify discharge learning needs (meds, wound care, etc). 7. Arrange for needed discharge transportation as appropriate Outcome: Not Progressing Note: Evaluation of progress towards goal: Discharge orders not yet completed. Problem: Safety - Medical Restraint Goal: Free from restraint(s) (Restraint for Interference with Um Nurse) Description: INTERVENTIONS: 1. ONCE/SHIFT or MINIMUM Q12H: Assess and document the continuing need for restraints 2. Order is valid for the duration of the episode of care 3. Discontinue at the earliest possible time once the reason for restraints no longer exists 4. Identify and implement measures to help patient regain control 5. Food, fluids, and toilet offered at a minimum of every 2 hours 6. RN modifies the patient's plan of care by entering a problem statement related to safety; individualizes the safety outcome Outcome: Not Progressing Note: Evaluation of progress towards goal: Restraints continue, patient continues to pull at lines,tubes, and drains. Q 2 hour assessments for need, safety, circulation, and skin continue. Patient remains restrained at this time, active order in place. Problem: Pain Goal: Patient goal is pain score less than 4, able to rest, and participant in treatment plan as appropriate Description: INTERVENTIONS: 1. Encourage patient or legal data entry representative to report early pain and ask for pain medicine when needed 2. Assess pain using appropriate pain scale and include the scale used when documenting 3. Administer analgesics based on type and severity of pain and evaluate response within appropriate time frame 4. Implement non-pharmacological measures as appropriate and evaluate response 5. Consider cultural and social influences on pain and pain management 6. Notify LIP if interventions ineffective or patient reports new pain 7. Monitor vital signs including pulse ox, end-tidal CO2 based on pain intervention 8. Reassess pain per policy 9. Teach patient or legal data entry representative interventions for comforting Outcome: Progressing Note: Evaluation of progress towards goal: Patient has PRN pain medication. Checking with every assessment. Monitoring vitals. Problem: Safety Goal: Patient will be injury free during hospitalization Description: INTERVENTIONS: 1. Assess patient's risk for falls and implement fall prevention plan of care per policy 2. Provide and maintain a safe environment 3. Proper use of double Identifiers 4. Medication administration using the 5 rights 5. Hand hygiene 6. Specimens are labeled at the bedside 7. Instruct patient/ patient data entry representative about use of safety devices 8. Include patient/ patient data entry representative in decisions related to safety Outcome: Progressing Note: Evaluation of progress towards goal: Patient safety maintained, call light in reach, area clear of hazards, hourly rounding continued, bed locked in lowest position, alarm on as applicable, nonskid socks on, safety educated completed with patient/family, no injuries noted at this time. Problem: Infection Goal: Absence of infection during hospitalization Description: Interventions: 1. Assess and monitor for signs and symptoms of infection 2. Monitor lab/diagnostic results 3. Monitor all insertion sites i.e., indwelling lines, tubes and drains 4. Monitor endotracheal (as able) and nasal secretions for changes in amount and color 5. Administer medications as ordered 6. Instruct and encourage patient and family to use good hand hygiene technique 7. Identify and instruct patient/patient data entry representative in use of appropriate isolation precautionsfor identified infection/symptoms 8. Provide and discuss with patient/patient data entry representative on educational MDRO sheet 9. Encourage and monitor nutritional status daily and consult commercial administrator if indicated 10. Implement neutropenic guidelines as needed 11. Review exposure to history of communicable disease and recent travel history on admission 12. Encourage annual influenza vaccine 13. Encourage pneumonia vaccine Outcome: Progressing Note: Evaluation of progress towards goal: Patient remains free from signs of infection at this time. Problem: Knowledge Deficit Goal: Patient/patient data entry representative demonstrates understanding of disease process, treatment plan,medications, and discharge instructions Description: INTERVENTIONS 1. Complete learning assessment and assess knowledge base 2. Provide teaching at level of understanding 3. Provide teaching via preferred learning method(s) Outcome: Progressing Note: Evaluation of progress towards goal: Care plan discussed & goals for shift set with patient input appreciated. All questions answered. Problem: Potential for Compromised Skin Integrity Goal: Skin integrity is maintained or improved Description: Patient's goal is: INTERVENTIONS 1. Perform initial skin assessment on admission and as needed 2. Turn patient every 2 hours and PRN 3. Relieve pressure to bony prominences 4. Avoid shearing 5. Keep skin clean and dry 6. Alternate a full bath with partial baths for elderly 7. Encourage use of lotion/moisturizer on skin 8. Monitor patient's hygiene practices 9. Float heels 10. Collaborate with interdisciplinary team and initiate plans and interventions as needed Outcome: Progressing Note: Evaluation of progress towards goal: No new skin breakdown noted, turned q 2 and PRN. Skin isclean, dry, and intact. Goal: Patient's nutritional intake is adequate Description: Patient's goal is: INTERVENTIONS 1. Assess and monitor food intake and supplements, patient food preferences, nausea, vomiting, labs, oral cavity (gums, teeth, tongue, mucosa), proper denture fit, and cultural beliefs 2. Monitor for signs of hypoglycemia and hyperglycemia 3. Collaborate with interdisciplinary team and initiate plan and interventions as ordered 4. Monitor patient's weight 5. Assist patient with meals/food selection 6. Assist patient with eating 7. Allow adequate time for meals 8. Provide pleasant environment during mealtime 9. Increase social contact during mealtimes 10. Plan activities to conserve energy 11. Encourage/perform oral hygiene as appropriate 12. Encourage patient to take dietary supplement as ordered 13. Collaborate with clinical commercial administrator 14. Include patient/ patient's data entry representative in decisions related to nutrition Outcome: Progressing Note: Evaluation of progress towards goal: Intake documented, weight documented every day. Monitoring for any nausea, vomiting and diarrhea. Patients nutritional intake is adequate at this time. Problem: Urinary Incontinence Goal: Perineal skin integrity is maintained or improved Description: INTERVENTIONS 1. Assess genitourinary system, perineal skin, labs (urinalysis), and history of incontinence to include past management, aggravating, and alleviating factors 2. Keep skin clean and dry 3. Apply skin protectant 4. Develop skin care regimen 5. Provide privacy when changing patients incontinence device to maintain their dignity 6. Consider placing an indwelling catheter 7. Collaborate with interdisciplinary team and initiate plans and interventions as needed Outcome: Progressing Note: Evaluation of progress towards goal: Perineal skin integrity remains clean, dry, and intact with no redness or s/s of breakdown. Skin care regimen considered as needed. Collaboration with interdisciplinary teams considered as needed. Problem: Moderate - High Risk Fall Score Description: [place] Fall Score of =/> 25 or indicated by [facility] Assessment Goal: Patient should be free from fall Description: Interventions: 1. Olds to environment 2. Hourly rounds addressing the 4 P's (Pain, Positioning, Possessions, Potty) 3. Clear area of hazards (spills, clutter, electrical cords, unnecessary equipment) 4. Place equipment (bed & TV controls, call light, phone, urinal) within reach 5. Encourage patient to wear glasses and hearing aides as appropriate 6. Maintain bed in lowest position 7. Lock wheels on bed/wheelchair 8. Provide adequate lighting, including night light 9. Assess need for additional bedding, food/fluids, pain med's prior to sleep/routinely 10. Provide gripper slippers or personal non-skid footwear 11. Teach patient and patient data entry representative to maintain environment for safety and engage in all aspects of fall prevention program 12. Remind patient to call for help before getting out of bed 13. Initiate bed/chair/exit alarms supportive devices as appropriate, (chair wedge, no-skid floor mat, raised edge mattress, hip protectors) 14. Locate patient bed assignment for optimal visualization 15. Evaluate and identify Safe Patient Handling Equipment needs 16. Provide supervision when out of bed or chair 17. Utilize gait belt as needed to assist with ambulation 18. Place adaptive equipment (cane, walker) within reach 19. Request patient data entry representative bring adaptive equipment/mobility aids from home or obtain and provide as needed 20. Consult pharmacy regarding effects of med's affecting mobility, cognition, and alternatives 21. Obtain physician order for PT if risk factors associated with mobility are present 22. Obtain physician order for OT as appropriate 23. Utilize diversional activities 24. Educate patient and patient data entry representative how to maintain a safe environment during visitationtimes (notify nurse prior to leaving bedside) 25. Consider appropriateness of medical or non-medical driver 26. Set up voiding schedule as appropriate (every 2 hours) Outcome: Progressing Note: Evaluation of progress towards goal: Patient remains free from falls and injury, fall risk IDband on, fall prevention education and precautions provided and in place. Patient verbalizes and demonstrates understanding, hourly rounds maintained. Problem: Neurological Deficit Goal: Neurological status is stable or improving Description: Patient's goal is: INTERVENTIONS 1. Complete Neurological assessment as indicated/ordered 2. Initiate measures to prevent increased intracranial pressure 3. Monitor and assess patient's level of consciousness, motor function, sensory function, and levelof assistance needed for ADLs 4. Monitor and report changes from baseline 5. Maintain blood pressure and fluid volume within ordered parameters to optimize cerebral perfusion and minimize risk of hemorrhage 6. Monitor labs and diagnostic tests 7. Administer anti-seizure medications as ordered 8. Maintain airway, patient safety and administer oxygen as ordered 9. Monitor patient for seizure activity, document and report duration and description of seizure toLIP 10. If seizure occurs, turn patient to side and suction secretions as needed 11. Reorient patient post seizure 12. Seizure pads on all 4 side rails 13. Instruct patient/family to notify RN of any seizure activity 14. Instruct patient/family to call for assistance with activity based on assessment 15. Utilize bleeding precautions if thrombolytic given Outcome: Progressing Note: Evaluation of progress towards goal: Patient's level of consciousness, motor function, sensory function, and level of assistance needed for ADLs all monitored and assessed at this time. Changesfrom baseline reported to necessary personal when needed. Patients care is optimized for cerebral perfusion accordingly to patients orders. Problem: Activity Intolerance/Impaired Mobility Goal: Mobility/activity is maintained at optimum level for patient Description: Patient's goal is: INTERVENTIONS 1. Assess and monitor patient barriers to mobility and need for assistive/adaptive devices 2. Assess patient's emotional response to limitations 3. Collaborate with interdisciplinary teams and initiate plans and interventions as ordered 4. Encourage independent activity per tolerance 5. Maintain proper body alignment 6. Perform active/passive ROM as tolerated/ordered 7. Coordinate activities to conserve energy 8. Reposition patient 9. Ensure adequate rest/sleep time Outcome: Progressing Note: Evaluation of progress towards goal: Bedrest continues per order, will advance as tolerated and ordered. Problem: Communication Impairment Goal: Ability to express needs and understand communication Description: INTERVENTIONS 1. Assess patient's communication skills and ability to understand information 2. Provide alternate method of communication if needed i.e. ipad, sign board, pen/paper 3. Collaborate with Speech Therapy to develop effective communication strategies 4. Include patient/patient data entry representative in decisions related to communication Outcome: Progressing Note: Evaluation of progress towards goal: Patient continues to be aphasic, no understandable speech.. ST consulted. Problem: Potential for Aspiration Goal: Patient's risk of aspiration is minimized Description: INTERVENTIONS 1. Assess and monitor vital signs, respiratory status, and labs (WBC) 2. Monitor for signs of aspiration (tachypnea, cough, rales, wheezing, cyanosis, fever) 3. Assess and monitor patient's ability to swallow 4. Place patient up in chair to eat if possible 5. Elevate head of bed 90 degrees to eat if unable to get patient up into chair 6. Supervise patient during oral intake 7. Instruct patient to take small bites 8. Instruct patient to take small single sips when taking liquids 9. Follow patient-specific strategies generated by speech pathologist 10. Complete bedside swallow screen if appropriate and take actions as indicated. 11. Administer prescribed medications and monitor effects Outcome: Progressing Note: Evaluation of progress towards goal: Patient remains NPO, aspiration precautions maintained, NG placed for med administration and enteral feedings. Problem: Anxiety Goal: Anxiety is at manageable level Description: Patient's goal is: INTERVENTIONS 1. Assess and monitor patient's anxiety level 2. Monitor for signs and symptoms of anxiety both physical and emotional (heart palpitations, chestpain, shortness of breath, headaches, nausea, feeling jumpy, restlessness, irritable, apprehensive) 3. Reorient/orient patient to unit/surroundings 4. Explain treatment plan 5. Explain tests/procedures prior to initiation 6. Encourage participation in care 7. Encourage verbalization of concerns/fears 8. Assess coping mechanisms 9. Assist in developing anxiety-reducing skills 10. Administer complimentary therapies 11. Manage patient's environment 12. Limit or eliminate stimulants such as caffeine and nicotine 13. Collaborate with ancillary departments 14. Include patient/patient data entry representative in decisions related to anxiety Outcome: Progressing Note: Evaluation of progress towards goal: Questions/comments/concerned addressed from patient/family. Anxiety remains at a manageable level. Problem: Inadequate Coping Goal: Demonstrates and verbalizes ability to cope effectively Description: Patient's goal is: INTERVENTIONS 1. Patient is able to verbalize feelings related to emotional state 2. Encourage verbalization of feelings, perceptions, fears, stressors, loss of loved ones 3. Encourage verbalization of problems out of their control 4. Encourage participation in care and self management 5. Inform patient of all treatment/care prior to providing care 6. Collaborate with pastoral/spiritual care, social media specialist, mental health counselor as needed. 7. Instruct patient on diversional activities such as physical activity, distraction, and deep breathing exercises to assist with coping 8. Involve patient's data entry representative in care Outcome: Progressing Note: Evaluation of progress towards goal: Patient/family demonstrates/verbalizes ability to cope effectively. Problem: Self Care Deficit Goal: Return ADL status to a safe level of function Description: Patient's goal is: INTERVENTIONS 1. Administer medication as ordered 2. Assess ADL deficits and provide assistive devices as needed 3. Obtain PT/OT consults as needed 4. Assist and instruct patient to increase activity and self care as tolerated Outcome: Progressing Note: Evaluation of progress towards goal: Patient remains totally dependent, requires assistance with all ADLs. PT/OT following. Problem: Safety - Medical Restraint Goal: Remains free of injury from restraints (Restraint for Interference with Um Nurse) Description: INTERVENTIONS: 1. Determine that other, less restrictive measures have been tried or would not be effective beforeapplying the restraint 2. Evaluate the patient's condition at the time of restraint application 3. Inform patient/family regarding the reason for restraint 4. Q2H: Monitor safety, Vital signs, psychosocial status, signs of injury, skin integrity, circulation, neurovascular status in affected extremities, respiratory status, comfort, nutrition and hydration, hygiene, ROM, elimination needs 5. Doctor will be notified of restraint 6. RN properly applies restraints per physician order Outcome: Progressing Note: Evaluation of progress towards goal: Restraints continue, patient continues to pull at lines,tubes, and drains. Q 2 hour assessments for need, safety, circulation, and skin continue. Patient remains restrained at this time, active order in place. Problem: Multi-Drug Resistant Organism / Rule-Out Infection Prevention Goal: Prevent transmission of infection Description: INTERVENTIONS 1. Place patient in private room or in room with patient with same disease 2. Discard single-use items 3. Clean reusable equipment between patients 4. Wear gloves for direct and indirect contact with patient or contaminants 5. Change gloves between tasks and procedures 6. Wash hands before and after caring for each patient 7. Wear appropriate personal protective equipment in relation to the indicated isolation type 8. Place appropriate isolation signage on patient's door 9. Provide patient/ patient data entry representative with isolation education. Outcome: Progressing Note: Evaluation of progress towards goal: Labs and vitals monitored as ordered. Medications administered as ordered. Patient remains free from infection at this time. Problem: Inadequate Airway Clearance Goal: Patient will maintain patent airway Description: INTERVENTIONS 1. Assess and monitor breath sounds, cough and sputum (if present) 2. Monitor respiratory rate and oxygen saturation 3. Collaborate with respiratory therapy to administer medication, oxygen, and suitable airway clearance techniques as ordered 4. Position patient for maximum ventilatory efficiency; elevate head of bed at least 30 degrees if appropriate 5. Provide adequate fluid intake to liquify secretions if appropriate 6. Suction secretions as indicated to maintain patent airway 7. Instruct patient to turn, cough, and deep breathe; encourage incentive spirometer if indicated Outcome: Progressing Note: Evaluation of progress towards goal: Patient maintaining airway clearance independently. Receiving duoneb treatments at this time. * Discharge Planning Note - Sweta Hu - 04/05/2023 9:04 AM EST DISCHARGE PLANNING NOTE Referral sent to [facility] (P#: ; F#: ). * Discharge Planning Note - Shari Stevens RN - 04/05/2023 8:48 AM EST DISCHARGE PLANNING NOTE Met with patient grand daughter Roula who is her POA for healthcare discuss discharge needs, introduced self and educated on care navigation role and discharge process/ and planning. Patient admitted on 04/01 with thalamic hemorrhage had new right sided weakness transfer from outlying hospital. Patient risk for readmission is at 13.9 Patient has a history of tobacco use, no ETOH use or illicit drug usage and denies current use of tobacco in any form. Past Medical History: Diagnosis Date AAA (abdominal aortic aneurysm) ([facility]) was surgically taken care of 09/2018 GERD (gastroesophageal reflux disease) Hypertension Upper respiratory infection 05/2019 Visual impairment glasses Prior to admission patient was living home alone in a one story home with steps to enter family could build on a ramp if needed in future. She was fully independent with all self care and mobility, prior oriented x4 now confused. She used no DME, drove, has local disabled son, grandchildren and a boyfriend. Support system- family, boyfriend Denies issues affording or obtaining medications, food, utilities, or transportation. PCP is Nithya Brown linked her for a summary of care. Educated on need to follow up with PCP days from discharge. Verified pharmacy of choice. Patient goal is to safely transition to a facility for rehab. Patient has no home care, DME or community resource currently in place. Therapy has recommended- a [facility] facility To reduce risk of readmission the follow discharge plan has been arranged to reduce risk. Discussedneed for rehab following hospital stay and POA agrees with skilled level. List provided and referrals sent to [facility]. Discussed if swallow does not improve may need tube in nose removed for comfort and placed in stomach until swallow able to improve more. Care navigation team to follow up and continue to assist with discharge needs. The following tasks/referrals sent: Discharge plan- SNF awaiting acceptance at [facility] or [facility] [place] is POA of [facility] and will make decision on location once she here who all can accept. she is open to peg tube if unable to pass for a diet still has NG in place asked facilities if can accept with it. she will need no precert but acceptance/ HENS/ and BLS ride to facility upon discharge. [facility] has accepted her for admission and granddaughter has been updated. She needs BLS ride/ HENS. No precert needed. Barrier - Diet plan has NG needs either a Peg tube or to pass for a dysphagia diet preferred. Facility can take an NG if need is only very short term.- Shari Stevens RN 04/05/23 2:56 PM * Plan of Care - Estevan Fonseca RCP - 04/05/2023 8:47 AM EST Problem: Inadequate Airway Clearance Goal: Patient will maintain patent airway Description: INTERVENTIONS 1. Assess and monitor breath sounds, cough and sputum (if present) 2. Monitor respiratory rate and oxygen saturation 3. Collaborate with respiratory therapy to administer medication, oxygen, and suitable airway clearance techniques as ordered 4. Position patient for maximum ventilatory efficiency; elevate head of bed at least 30 degrees if appropriate 5. Provide adequate fluid intake to liquify secretions if appropriate 6. Suction secretions as indicated to maintain patent airway 7. Instruct patient to turn, cough, and deep breathe; encourage incentive spirometer if indicated Outcome: Progressing Note: Evaluation of progress towards goal: progressing Respiratory Therapy Clinical Practice Guidelines Consult Patient Active Problem List Diagnosis 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[facility]) Last Chest XRAY: Reviewed Pulmonary History: RT Reassessment Due In: 12 hours Broncho-Pulmonary Hygiene Level of Movement Level 2: Actively changing positions - requires assistance Breath Sounds Level 2: Diminished and/or coarse rhonchi Cough Level 1: Strong, effective Chest X-Ray Level 2: Mild consolidation and/or atelectasis ; No CXR available Sputum Production Level 1: None or small amount of thin or watery secretions with effective cough History & Physical Level 2: New onset of bronchitis or mucus plugging or Home use for chronic condition SpO2 to O2 Need Level 2: >92% on room air or NC < 3 lpm Patients Current Level & Intervention: 2 BPH technique per algorithm TID and PRN * Plan of Care - Tana Arvizu RCP - 04/04/2023 7:23 PM EST Problem: Inadequate Airway Clearance Goal: Patient will maintain patent airway Description: INTERVENTIONS 1. Assess and monitor breath sounds, cough and sputum (if present) 2. Monitor respiratory rate and oxygen saturation 3. Collaborate with respiratory therapy to administer medication, oxygen, and suitable airway clearance techniques as ordered 4. Position patient for maximum ventilatory efficiency; elevate head of bed at least 30 degrees if appropriate 5. Provide adequate fluid intake to liquify secretions if appropriate 6. Suction secretions as indicated to maintain patent airway 7. Instruct patient to turn, cough, and deep breathe; encourage incentive spirometer if indicated Outcome: Progressing Note: Evaluation of progress towards goal: stable on 2L NC Respiratory Therapy Clinical Practice Guidelines Consult Vital Signs Pulse: 85 Heart Rate Source: Monitor Resp: 17 SpO2: 91 % O2 Device: Nasal cannula O2 Flow Rate (L/min): 2 L/min Respiratory Assessment Assessment Type: Pre-treatment Level of Consciousness: Alert Respiratory Pattern: Regular Chest Assessment: Chest expansion symmetrical Bilateral Breath Sounds: Scattered, Coarse/Rhonchi Patient Active Problem List Diagnosis 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[facility]) Last Chest XRAY: Reviewed Pulmonary History: see above RT Reassessment Due In: 12 hours Bronchodilator Respiratory Rate Level 1: Less than 20 Dyspnea Level 1: No SOB Breath Sounds Level 2: Diminished and/or faint wheezes Respiratory History Level 1: None Oxygen to Keep SpO2 Greater Than Or Equal To 92% Level 2: 1-3 LPM 25%-35% or NIV 41 - 50% Patients Current Level & Intervention: 2 Three times daily and Q4 PRN for wheezing Broncho-Pulmonary Hygiene Level of Movement Level 2: Actively changing positions - requires assistance Breath Sounds Level 2: Diminished and/or coarse rhonchi Cough Level 2: Strong, effective and/or frequent Chest X-Ray Level 1: Possible signs of consolidation and/or atelectasis or clear ; No CXR available Sputum Production Level 1: None or small amount of thin or watery secretions with effective cough History & Physical Level 1: None or New onset of bronchitis or existing chronic pulmonary condition. (not in an exacerbation) SpO2 to O2 Need Level 1: >92% on room air or NC < 3 lpm Patients Current Level & Intervention: 2 BPH technique per algorithm TID and PRN * Query Response - Poly Shahid MD - 04/04/2023 12:17 PM EST Query Response Note CDI QUERY TEXT: Encephalopathy Type [id number] Disclaimer: By submitting this query, we are merely seeking further clarification of documentation to accurately reflect all conditions that you are monitoring, evaluating, treating or that extend the hospitalization or utilize additional resources of care. Please utilize your independent clinical judgment when addressing the question(s) below. Dr. Hassan/ Dr. Shahid, Encephalopathy is documented in the medical record (see below Clinical Findings). 1) Can you please further specify the type of Encephalopathy, such as: - Metabolic - Toxic, Toxic metabolic - Other, please specify - Clinically unable to determine/ Unknown Clinical Findings: 04/01 note: Hold off on diet and video swallow given fluctuating mental status and more somnolent on afternoon assessment. 04/02 Progress note documents: There was subsequent worsening of ICH, attributed to drug-induced platelet dysfunction from antiplatelet therapy. Altered Mental status, likely secondary to encephalopathy from intracranial hemorrhage and Patient was examined assessed at bedside today, she was somnolent yet wakeful, able to follow simple commands intermittently, appears agitated which is not her baseline. 04/02 & 04/03 EEG results: This EEG in the awake and sleep states is abnormaldue to the presence of mild generalized background slowing suggestive of mild bi-hemispheric cerebral dysfunction that can be seen in post ictal states, metabolic, hypoxic or toxic encephalopathies, sedative medication use or primary neurological disorders. Nursing notes document: 04/01: Oriented to person, place, and month. 04/02- 04/04: Oriented to person. Please document any of the above specifications within the progress notes and/or discharge summary or as response to this query. The Clinical Documentation Improvement (CDI) staff are working remotely. If you have any questions or concerns regarding this query, please feel free to contact me. Herlinda NEVILLE, RN Clinical [employer] [facility] Clinical Revenue Cycle Email: The patient's Clinical Indicators include: See Query. CDI RESPONSE TEXT: CC: Acute toxic/metabolic encephalopathy Query created by: Leonila Leonard on 04/04/2023 11:59 AM Electronically signed by: Poly Shahid MD 04/04/2023 12:15 PM * PT/OT/PIPE BENDER - BARRINGTON Meneses - 04/04/2023 11:31 AM EST Speech Therapy CANCEL - Deferred Per RN pt not appropriate for PO today. Will check back as able. * PT/OT/PIPE BENDER - Sun Lamb PT - 04/04/2023 11:16 AM EST Physical Therapy Evaluation Discharge Recommendations PT Recommendations: Long Term Facility SNF/ECF Comments: due to decline in functional mobility with decreased balance, safety awareness and R hemiparesis. Pt is dependent at this time for all mobility and is at high risk for falls. 6 Clicks: Basic Mobility Turning from your back to your side while in a flat bed without using bed rails?: Total Moving from lying on your back to sitting on side of flat bed without using bed rails?: Total Moving to and from bed to a chair (including w/c)?: Total Standing up from a chair using your arms (e.g. w/c or bedside chair)?: Total To walk in hospital room?: Total Climbing 3-5 steps with a railing?: Total Scoring 6 Clicks: Basic Mobility Raw Score: 6 [facility] G Code Modifier: CN SwePASS score = /36 Pt is an 78 yo female admit from OSH with R sided weakness. CT brain - small L thalamic intracranial hemorrhage. Repeat CT brain - enlarging L BG IPH with worsening extension into intraventricular area, new 2-3mmrightward midline shift 04/02 - pt agitated, somnolent. NIHSS = 16 EEG - mild encephalopathy Past Medical History: Diagnosis Date AAA (abdominal aortic aneurysm) ([facility]) was surgically taken care of 09/2018 GERD (gastroesophageal reflux disease) Hypertension Upper respiratory infection 05/2019 Visual impairment glasses Past Surgical History: Procedure Laterality Date BREAST BIOPSY BREAST SURGERY 1989 BREAST BX CARDIAC SURGERY STENT 2019 CARDIAC SURGERY LEFT VENTRICLE STENT 2018 DILATION AND CURETTAGE, DIAGNOSTIC / THERAPEUTIC 1986 HYSTERECTOMY KNEE ARTHROSCOPY Left KNEE ARTHROSCOPY Left REMOVE METAL 2014 LAPAROSCOPIC CHOLECYSTECTOMY N/A 05/26/2019 Performed by Caro Pollard DO at [facility] ORIF WRIST FRACTURE Right Pins Modified [place] Level of Disability: Severe disability 0= No symptom at all 1= No significant disability despite symptoms: able to carry out all usual duties and activities 2= Slight disability: unable to carry out all previous activities, but able to look after own affairs without assistance 3= Moderate disability: requiring some help, but able to walk without assistance 4= Moderately severe disability: unable to walk without assistance and unable to attend to own bodily needs without assistance 5- Severe disability: bedridden, incontinent and requiring constant nursing care and attention. 6= Therapy Plan Need for skilled Physical Therapy to address deficits in functional mobility due to a status decline resulting from admit for L basal ganglia IPH with intraventricular extension. Recommend SNF as pt needs extensive assist for all mobility and ADLs at this time. PT Treatment/Interventions: Functional transfer training, LE strengthening/ROM, Patient/family training, Equipment eval/education, Cognitive reorientation, Balance, Bed mobility PT Frequency: 4-5days/week PT Duration: 05/03/23 Patient Response to Treatment: Slow progress, decreased activity tolerance, Slow progress, cognitive deficits, Tolerated evaluation without adverse reaction Assessment Patient Assessment Therapy Problem List: Decreased balance, Decreased cognition, Decreased mobility, Decreased safe judgement during ADL, Decreased UE strength, Decreased LE strength, Visual deficit Patient Response to Treatment: Slow progress, decreased activity tolerance, Slow progress, cognitive deficits, Tolerated evaluation without adverse reaction Mood/Affect: Impulsive (restless) Rehab Prognosis: Good, With continued PT status post acute discharge Visit RN Communication: Yes Medical Record Reviewed: Yes PT Type of Visit: Evaluation Precautions Activity: act as tolerated, NG tube feed - no liquids Equipment: repositioning sling, NG tube feed, O2, larios catheter, L hand mitt Telemetry/Residential Aide: Yes Oxygen Used: 2L O2 Other: high fall risk, R hemiparesis, non-verbal, confused Pain Assessment Unable to Self-Report Pain Reason: Nonverbal Home Living Other : Pt unable to provide home info as she is non-verbal and not following commands. No family present at time of eval Prior Function Other: Not able to assess prior level of function as pt non-verbal and family not present at time of eval Hearing / Speech / Vision Hearing: Within Functional Limits Speech: Expressive aphasia, Receptive aphasia (no verbalizations this date and not responding appopriately) Current Vision: Other (Comment) (L gaze preference noted, unable to follow cues to find midline) Cognition Overall Cognitive Status: Exceptions to Within Functional Limits Arousal/Alertness: Lethargic (opens eyes at times) Other: Pt awake but not following commands, appears agitated at times reaching out with L UE and restless L LE. No verbalizations. Sensation Overall Sensation Status: Unable to Assess Bed Mobility Supine to Sit: Total assist Sit to Supine: Total assist Other: Repositioning pad used for supine to sit - needs max A support to sit at EOB - leans to the R and occasional LOB to L when overcorrects. Transfers Other: Dependent at this time. Not appropriate to attempt standing due to R hemiparesis and poor balance/safety awareness. Recommend maxi sophia lift for safe transfers Gait Other: Dependent at this time Balance Sitting Balance: Static: Poor Sitting Balance: Dynamic: Poor Other: Pt pushes to the R, needs max A support to sit at EOB x 5 mins this date. Restless and poor safety awareness. RLE Assessment: (no active movement R LE, some tone but PROM WFL) LLE Assessment: Within Functional Limits Activity Tolerance Endurance: Tolerates <30 minutes activity WITHOUT vital sign changes Other: Limited by R hemiparesis and poor balance Plan Physical Therapy Care Plan Physical Therapy Care Plan (Active) Template: PT - Physical Therapy Problem: Activity Tolerance Dates: Start: 04/04/23 Disciplines: PT Goal: Tolerate 30 minutes of activity WITH rest breaks Dates: Start: 04/04/23 Expected End: 05/03/23 Description: Goal Description: for supine, seated and supported standing activities for improved mobility Disciplines: PT Problem: Bed Mobility Dates: Start: 04/04/23 Disciplines: PT Goal: Patient will perform bed mobility with Minimum Assist Dates: Start: 04/04/23 Expected End: 05/03/23 Description: Goal Description: Disciplines: PT Problem: Sitting Balance Dates: Start: 04/04/23 Disciplines: PT Goal: Improve balance to good Dates: Start: 04/04/23 Expected End: 05/03/23 Description: Static Dynamic with UE support for safe ADLs and transfers Disciplines: PT Problem: Standing Balance Dates: Start: 04/04/23 Disciplines: PT Goal: Improve balance to fair Dates: Start: 04/04/23 Expected End: 05/03/23 Description: Static Dynamic with UE support/SPH equipment for safe transfers Disciplines: PT Problem: Strength Dates: Start: 04/04/23 Disciplines: PT Goal: Improve strength Dates: Start: 04/04/23 Expected End: 05/03/23 Description: Of extremity/ location: R LE to 3+/5 or greater To facilitate: mobility Disciplines: PT Problem: Transfers Dates: Start: 04/04/23 Disciplines: PT Goal: Patient will perform transfers with Moderate Assist Dates: Start: 04/04/23 Expected End: 05/03/23 Description: Goal Description: sit to stand with SPH equipment/UE support Disciplines: PT Physical Therapy Care Plan (Resolved) There are no resolved problems. Principal Problem: 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CMS-HCC) * PT/OT/PIPE BENDER - Antolin Michael, OTR/L - 04/04/2023 11:15 AM EST Occupational Therapy Evaluation Discharge Recommendations OT Recommendations : Long Term Facility SNF/ECF Comments: Due to deficits with self care and mobility Therapy Plan Need for skilled Occupational Therapy to address deficits in ADL independence and functional mobility due to a status deand increased L dahl resulting from admitted from outside hospital with R sided weakness and CT of brain noting L thalamic ICH. NIH 1-4. Upon this admission has had multiple CTs of brain with evolving B temporal lobe SAH with R shift 2-3mm and effacement of lateral ventricle with and increased L basal ganglia and temporal IPH. Patient had EEG indicative of mild encephalopathybut no epileptiform discharge. NIH anywhere from 14-16. Currently with NG tube, on 2L oxygen, sarah to L hand as she had been pulling at lines and attachments. No neurosurgical intervention. Please see OT evaluation for clarification of occupational profile. At this time the patient is requiring total assist with ADLs and reduced cognition, hemiplegia R side of body, somnolence, global aphasia. She was not appropriate to attempt mobility outside of sitting edge of bed due to poor balance and poor mentation and hemiplegia R side of body. She will benefit from OT services to address deficit performance areas. Past Surgical History: Procedure Laterality Date BREAST BIOPSY BREAST SURGERY 1989 BREAST BX CARDIAC SURGERY STENT 2019 CARDIAC SURGERY LEFT VENTRICLE STENT 2018 DILATION AND CURETTAGE, DIAGNOSTIC / THERAPEUTIC 1986 HYSTERECTOMY KNEE ARTHROSCOPY Left KNEE ARTHROSCOPY Left REMOVE METAL 2014 LAPAROSCOPIC CHOLECYSTECTOMY N/A 05/26/2019 Performed by Caro Pollard DO at [facility] ORIF WRIST FRACTURE Right Pins Past Medical History: Diagnosis Date AAA (abdominal aortic aneurysm) ([facility]) was surgically taken care of 09/2018 GERD (gastroesophageal reflux disease) Hypertension Upper respiratory infection 05/2019 Visual impairment glasses 6 Clicks: Daily Activity Putting on and taking off regular lower body clothing?: Total Bathing (including washing, rinsing, drying)?: Total Toileting, which includes using toilet, bedpan or urinal?: Total Putting on and taking off regular upper body clothing?: Total Taking care of personal grooming such as brushing teeth?: Total Eating meals?: Total Scoring Daily Activity Raw Score: 6 CMS G Code Modifier: CN Modified [place] Level of Disability: Severe disability 0= No symptom at all 1= No significant disability despite symptoms: able to carry out all usual duties and activities 2= Slight disability: unable to carry out all previous activities, but able to look after own affairs without assistance 3= Moderate disability: requiring some help, but able to walk without assistance 4= Moderately severe disability: unable to walk without assistance and unable to attend to own bodily needs without assistance 5- Severe disability: bedridden, incontinent and requiring constant nursing care and attention. 6= OT Treatment/Interventions: ADL retraining, Functional transfer training, UE strengthening/ROM, Endurance training, Patient/family training, Equipment eval/education, Balance, Bed mobility, Compensatory technique education, Functional activities, Neuromuscular reeducation OT Frequency: 4-5days/week OT Duration: 05/02/2023 Assessment Patient Assessment Therapy Problem List: Decreased ADL status, Decreased balance, Decreased cognition, Decreased endurance, Decreased mobility, Decreased safe judgement during ADL, Decreased self-care trans, Decreased UE strength Patient Response to Treatment: Tolerated evaluation without adverse reaction Mood/Affect: Impulsive Rehab Prognosis: Good, With continued OT status post acute discharge Visit RN Communication: Yes Medical Record Reviewed: Yes OT Type of Visit: Evaluation Precautions Activity: Early Mobility Equipment: bed alarm, L sarah for hand, NG Telemetry/Residential Aide: Yes Oxygen Used: 2L Other: fall risk, recent B SAH with L IPH and CANDI - no surgical intervention at present - globally aphasic, non functional use RUE/RLE, agitated Pain Assessment Pain Assessment: (does not appear to be in pain) Home Living Other : Uncertain of home information. Patient is unable to report and no family present. Prior Function Other: Uncertain of prior level of function ADL / IADL Other: Patient is dependent for care at this time. She is quite somnolent and not opening eyes much- even with stimulation to face (wash cloth, brushing face, brushing hair, etc.) Home Management - IADL Other: Patient is dependent for care at this time. She is quite somnolent and not opening eyes much- even with stimulation to face (wash cloth, brushing face, brushing hair, etc.) Hearing / Speech / Vision Hearing: (uncertain of hearing status - at time appears to respond to name.) Speech: Global aphasia Current Vision: (uncertain) Other: L gaze preference Cognition Overall Cognitive Status: Unable to Assess Orientation Level: Unable to assess Sensation Overall Sensation Status: Unable to Assess Bed Mobility Supine to Sit: Total assist Sit to Supine: Total assist Other: Assist x2 to sit edge of bed. Moving/squirming this way and that with poor balance and LOB to the R at times with overcorrection and LOB to the L. Unfit to attempt standing due to mentation and physical limitations. Transfers Other: Not appropriate to attempt. Gait Other: Not appropriate to attempt. Balance Sitting Balance: Static: Poor Sitting Balance: Dynamic: Poor RUE Assessment: (0/5 with increased tone) LUE Assessment: (moving UE about without prompt, attempted to remove sarah but she was unpredictable and it was re-secured.) Activity Tolerance Endurance: Tolerates <30 minutes activity WITHOUT vital sign changes Plan Occupational Therapy Care Plan Occupational Therapy Care Plan (Active) Template: OT - Occupational Therapy Problem: Activity Tolerance Dates: Start: 04/04/23 Disciplines: OT Goal: Tolerate > 30 minutes of activity WITH rest breaks Dates: Start: 04/04/23 Expected End: 05/02/23 Description: Goal Description: Disciplines: OT Problem: Bed Mobility Dates: Start: 04/04/23 Disciplines: OT Goal: Patient will perform bed mobility with Minimum Assist Dates: Start: 04/04/23 Expected End: 05/02/23 Description: Goal Description: Disciplines: OT Problem: Other (Customize) Dates: Start: 04/04/23 Disciplines: OT Goal: Improve Dates: Start: 04/04/23 Expected End: 05/02/23 Description: Goal Description: improve assist with self care to Mod A or less Disciplines: OT Problem: ROM Dates: Start: 04/04/23 Disciplines: OT Goal: Improve ROM Dates: Start: 04/04/23 Expected End: 05/02/23 Description: Of extremity/ location: RUE as able A/AA/PROM all joints to end range of motion To facilitate: improve assist with self care and mobility tasks Disciplines: OT Problem: Sitting Balance Dates: Start: 04/04/23 Disciplines: OT Goal: Improve balance to good Dates: Start: 04/04/23 Expected End: 05/02/23 Description: Static Dynamic Disciplines: OT Problem: Standing Balance Dates: Start: 04/04/23 Disciplines: OT Goal: Improve balance to fair Dates: Start: 04/04/23 Expected End: 05/02/23 Description: Static Dynamic Disciplines: OT Problem: Strength Dates: Start: 04/04/23 Disciplines: OT Goal: Improve strength Dates: Start: 04/04/23 Expected End: 05/02/23 Description: Of extremity/ location: improve RUE as able from 0/5 To facilitate: improve assist with self care and mobility Disciplines: OT Problem: Toilet Transfers Dates: Start: 04/04/23 Disciplines: OT Goal: Patient will perform toilet transfers with Minimum Assist Dates: Start: 04/04/23 Expected End: 05/02/23 Description: Goal Description: Disciplines: OT Problem: Transfers Dates: Start: 04/04/23 Disciplines: OT Goal: Patient will perform transfers with Minimum Assist Dates: Start: 04/04/23 Expected End: 05/02/23 Description: Goal Description: Disciplines: OT Occupational Therapy Care Plan (Resolved) There are no resolved problems. Principal Problem: 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[facility]) * Plan of Care - Nayely Kaur RN - 04/04/2023 11:02 AM EST Problem: Pain Goal: Patient goal is pain score less than 4, able to rest, and participant in treatment plan as appropriate Description: INTERVENTIONS: 1. Encourage patient or legal data entry representative to report early pain and ask for pain medicine when needed 2. Assess pain using appropriate pain scale and include the scale used when documenting 3. Administer analgesics based on type and severity of pain and evaluate response within appropriate time frame 4. Implement non-pharmacological measures as appropriate and evaluate response 5. Consider cultural and social influences on pain and pain management 6. Notify LIP if interventions ineffective or patient reports new pain 7. Monitor vital signs including pulse ox, end-tidal CO2 based on pain intervention 8. Reassess pain per policy 9. Teach patient or legal data entry representative interventions for comforting Outcome: Progressing Note: Evaluation of progress towards goal: Non-verbal pain scoring utilized. PRN pain meds available for appropriate score. Continue to monitor. Problem: Safety Goal: Patient will be injury free during hospitalization Description: INTERVENTIONS: 1. Assess patient's risk for falls and implement fall prevention plan of care per policy 2. Provide and maintain a safe environment 3. Proper use of double Identifiers 4. Medication administration using the 5 rights 5. Hand hygiene 6. Specimens are labeled at the bedside 7. Instruct patient/ patient data entry representative about use of safety devices 8. Include patient/ patient data entry representative in decisions related to safety Outcome: Progressing Note: Evaluation of progress towards goal: Need for restraints evaluated every shift and prn. Patient continues exhibiting behavior that requires restraint use. Continue to monitor. Problem: Infection Goal: Absence of infection during hospitalization Description: Interventions: 1. Assess and monitor for signs and symptoms of infection 2. Monitor lab/diagnostic results 3. Monitor all insertion sites i.e., indwelling lines, tubes and drains 4. Monitor endotracheal (as able) and nasal secretions for changes in amount and color 5. Administer medications as ordered 6. Instruct and encourage patient and family to use good hand hygiene technique 7. Identify and instruct patient/patient data entry representative in use of appropriate isolation precautionsfor identified infection/symptoms 8. Provide and discuss with patient/patient data entry representative on educational MDRO sheet 9. Encourage and monitor nutritional status daily and consult commercial administrator if indicated 10. Implement neutropenic guidelines as needed 11. Review exposure to history of communicable disease and recent travel history on admission 12. Encourage annual influenza vaccine 13. Encourage pneumonia vaccine Outcome: Progressing Note: Evaluation of progress towards goal: No signs or symptoms of infection, daily labs monitored,patient is afebrile Problem: Knowledge Deficit Goal: Patient/patient data entry representative demonstrates understanding of disease process, treatment plan,medications, and discharge instructions Description: INTERVENTIONS 1. Complete learning assessment and assess knowledge base 2. Provide teaching at level of understanding 3. Provide teaching via preferred learning method(s) Outcome: Progressing Note: Evaluation of progress towards goal: Problem: Discharge Planning Goal: Discharge to post-acute care, other facility, or home with appropriate resources Description: Patient's goal is: INTERVENTIONS 1. Conduct assessment to determine patient/family and health care team treatment goals, and need for post-acute services based on payer coverage, community resources, and patient preferences, and barriers to discharge 2. Coordinate with Social work, Care Navigation, and Utilization Review to arrange appropriate level of services according to patient's needs based on patient preference and payer coverage in collaboration with the physician and health care team 3. Address psychosocial, clinical, and financial barriers to discharge as identified in assessment in conjunction with the patient/family and health care team 4. Consult appropriate ancillary services (i.e.. PT/OT/ST, etc) as needed 5. Communicate with and update the patient/family, physician, and health care team regarding progress on the discharge plan 6. Identify discharge learning needs (meds, wound care, etc). 7. Arrange for needed discharge transportation as appropriate Outcome: Progressing Note: Evaluation of progress towards goal: Problem: Potential for Compromised Skin Integrity Goal: Skin integrity is maintained or improved Description: Patient's goal is: INTERVENTIONS 1. Perform initial skin assessment on admission and as needed 2. Turn patient every 2 hours and PRN 3. Relieve pressure to bony prominences 4. Avoid shearing 5. Keep skin clean and dry 6. Alternate a full bath with partial baths for elderly 7. Encourage use of lotion/moisturizer on skin 8. Monitor patient's hygiene practices 9. Float heels 10. Collaborate with interdisciplinary team and initiate plans and interventions as needed Outcome: Progressing Note: Evaluation of progress towards goal: Goal: Patient's nutritional intake is adequate Description: Patient's goal is: INTERVENTIONS 1. Assess and monitor food intake and supplements, patient food preferences, nausea, vomiting, labs, oral cavity (gums, teeth, tongue, mucosa), proper denture fit, and cultural beliefs 2. Monitor for signs of hypoglycemia and hyperglycemia 3. Collaborate with interdisciplinary team and initiate plan and interventions as ordered 4. Monitor patient's weight 5. Assist patient with meals/food selection 6. Assist patient with eating 7. Allow adequate time for meals 8. Provide pleasant environment during mealtime 9. Increase social contact during mealtimes 10. Plan activities to conserve energy 11. Encourage/perform oral hygiene as appropriate 12. Encourage patient to take dietary supplement as ordered 13. Collaborate with clinical commercial administrator 14. Include patient/ patient's data entry representative in decisions related to nutrition Outcome: Progressing Note: Evaluation of progress towards goal: tube feed at goal and tolerating Problem: Urinary Incontinence Goal: Perineal skin integrity is maintained or improved Description: INTERVENTIONS 1. Assess genitourinary system, perineal skin, labs (urinalysis), and history of incontinence to include past management, aggravating, and alleviating factors 2. Keep skin clean and dry 3. Apply skin protectant 4. Develop skin care regimen 5. Provide privacy when changing patients incontinence device to maintain their dignity 6. Consider placing an indwelling catheter 7. Collaborate with interdisciplinary team and initiate plans and interventions as needed Outcome: Progressing Note: Evaluation of progress towards goal:Larios catheter in place Problem: Moderate - High Risk Fall Score Description: [place] Fall Score of =/> 25 or indicated by [facility] Assessment Goal: Patient should be free from fall Description: Interventions: 1. Olds to environment 2. Hourly rounds addressing the 4 P's (Pain, Positioning, Possessions, Potty) 3. Clear area of hazards (spills, clutter, electrical cords, unnecessary equipment) 4. Place equipment (bed & TV controls, call light, phone, urinal) within reach 5. Encourage patient to wear glasses and hearing aides as appropriate 6. Maintain bed in lowest position 7. Lock wheels on bed/wheelchair 8. Provide adequate lighting, including night light 9. Assess need for additional bedding, food/fluids, pain med's prior to sleep/routinely 10. Provide gripper slippers or personal non-skid footwear 11. Teach patient and patient data entry representative to maintain environment for safety and engage in all aspects of fall prevention program 12. Remind patient to call for help before getting out of bed 13. Initiate bed/chair/exit alarms supportive devices as appropriate, (chair wedge, no-skid floor mat, raised edge mattress, hip protectors) 14. Locate patient bed assignment for optimal visualization 15. Evaluate and identify Safe Patient Handling Equipment needs 16. Provide supervision when out of bed or chair 17. Utilize gait belt as needed to assist with ambulation 18. Place adaptive equipment (cane, walker) within reach 19. Request patient data entry representative bring adaptive equipment/mobility aids from home or obtain and provide as needed 20. Consult pharmacy regarding effects of med's affecting mobility, cognition, and alternatives 21. Obtain physician order for PT if risk factors associated with mobility are present 22. Obtain physician order for OT as appropriate 23. Utilize diversional activities 24. Educate patient and patient data entry representative how to maintain a safe environment during visitationtimes (notify nurse prior to leaving bedside) 25. Consider appropriateness of medical or non-medical driver 26. Set up voiding schedule as appropriate (every 2 hours) Outcome: Progressing Note: Evaluation of progress towards goal: Problem: Neurological Deficit Goal: Neurological status is stable or improving Description: Patient's goal is: INTERVENTIONS 1. Complete Neurological assessment as indicated/ordered 2. Initiate measures to prevent increased intracranial pressure 3. Monitor and assess patient's level of consciousness, motor function, sensory function, and levelof assistance needed for ADLs 4. Monitor and report changes from baseline 5. Maintain blood pressure and fluid volume within ordered parameters to optimize cerebral perfusion and minimize risk of hemorrhage 6. Monitor labs and diagnostic tests 7. Administer anti-seizure medications as ordered 8. Maintain airway, patient safety and administer oxygen as ordered 9. Monitor patient for seizure activity, document and report duration and description of seizure toLIP 10. If seizure occurs, turn patient to side and suction secretions as needed 11. Reorient patient post seizure 12. Seizure pads on all 4 side rails 13. Instruct patient/family to notify RN of any seizure activity 14. Instruct patient/family to call for assistance with activity based on assessment 15. Utilize bleeding precautions if thrombolytic given Outcome: Progressing Note: Evaluation of progress towards goal: Problem: Activity Intolerance/Impaired Mobility Goal: Mobility/activity is maintained at optimum level for patient Description: Patient's goal is: INTERVENTIONS 1. Assess and monitor patient barriers to mobility and need for assistive/adaptive devices 2. Assess patient's emotional response to limitations 3. Collaborate with interdisciplinary teams and initiate plans and interventions as ordered 4. Encourage independent activity per tolerance 5. Maintain proper body alignment 6. Perform active/passive ROM as tolerated/ordered 7. Coordinate activities to conserve energy 8. Reposition patient 9. Ensure adequate rest/sleep time Outcome: Progressing Note: Evaluation of progress towards goal: Problem: Communication Impairment Goal: Ability to express needs and understand communication Description: INTERVENTIONS 1. Assess patient's communication skills and ability to understand information 2. Provide alternate method of communication if needed i.e. ipad, sign board, pen/paper 3. Collaborate with Speech Therapy to develop effective communication strategies 4. Include patient/patient data entry representative in decisions related to communication Outcome: Progressing Note: Evaluation of progress towards goal: Problem: Potential for Aspiration Goal: Patient's risk of aspiration is minimized Description: INTERVENTIONS 1. Assess and monitor vital signs, respiratory status, and labs (WBC) 2. Monitor for signs of aspiration (tachypnea, cough, rales, wheezing, cyanosis, fever) 3. Assess and monitor patient's ability to swallow 4. Place patient up in chair to eat if possible 5. Elevate head of bed 90 degrees to eat if unable to get patient up into chair 6. Supervise patient during oral intake 7. Instruct patient to take small bites 8. Instruct patient to take small single sips when taking liquids 9. Follow patient-specific strategies generated by speech pathologist 10. Complete bedside swallow screen if appropriate and take actions as indicated. 11. Administer prescribed medications and monitor effects Outcome: Progressing Note: Evaluation of progress towards goal: Problem: Anxiety Goal: Anxiety is at manageable level Description: Patient's goal is: INTERVENTIONS 1. Assess and monitor patient's anxiety level 2. Monitor for signs and symptoms of anxiety both physical and emotional (heart palpitations, chestpain, shortness of breath, headaches, nausea, feeling jumpy, restlessness, irritable, apprehensive) 3. Reorient/orient patient to unit/surroundings 4. Explain treatment plan 5. Explain tests/procedures prior to initiation 6. Encourage participation in care 7. Encourage verbalization of concerns/fears 8. Assess coping mechanisms 9. Assist in developing anxiety-reducing skills 10. Administer complimentary therapies 11. Manage patient's environment 12. Limit or eliminate stimulants such as caffeine and nicotine 13. Collaborate with ancillary departments 14. Include patient/patient data entry representative in decisions related to anxiety Outcome: Progressing Note: Evaluation of progress towards goal: Problem: Inadequate Coping Goal: Demonstrates and verbalizes ability to cope effectively Description: Patient's goal is: INTERVENTIONS 1. Patient is able to verbalize feelings related to emotional state 2. Encourage verbalization of feelings, perceptions, fears, stressors, loss of loved ones 3. Encourage verbalization of problems out of their control 4. Encourage participation in care and self management 5. Inform patient of all treatment/care prior to providing care 6. Collaborate with pastoral/spiritual care, social media specialist, mental health counselor as needed. 7. Instruct patient on diversional activities such as physical activity, distraction, and deep breathing exercises to assist with coping 8. Involve patient's data entry representative in care Outcome: Progressing Note: Evaluation of progress towards goal: Problem: Self Care Deficit Goal: Return ADL status to a safe level of function Description: Patient's goal is: INTERVENTIONS 1. Administer medication as ordered 2. Assess ADL deficits and provide assistive devices as needed 3. Obtain PT/OT consults as needed 4. Assist and instruct patient to increase activity and self care as tolerated Outcome: Progressing Note: Evaluation of progress towards goal: Problem: Safety - Medical Restraint Goal: Remains free of injury from restraints (Restraint for Interference with Um Nurse) Description: INTERVENTIONS: 1. Determine that other, less restrictive measures have been tried or would not be effective beforeapplying the restraint 2. Evaluate the patient's condition at the time of restraint application 3. Inform patient/family regarding the reason for restraint 4. Q2H: Monitor safety, Vital signs, psychosocial status, signs of injury, skin integrity, circulation, neurovascular status in affected extremities, respiratory status, comfort, nutrition and hydration, hygiene, ROM, elimination needs 5. Doctor will be notified of restraint 6. RN properly applies restraints per physician order Outcome: Progressing Note: Evaluation of progress towards goal: Goal: Free from restraint(s) (Restraint for Interference with Um Nurse) Description: INTERVENTIONS: 1. ONCE/SHIFT or MINIMUM Q12H: Assess and document the continuing need for restraints 2. Order is valid for the duration of the episode of care 3. Discontinue at the earliest possible time once the reason for restraints no longer exists 4. Identify and implement measures to help patient regain control 5. Food, fluids, and toilet offered at a minimum of every 2 hours 6. RN modifies the patient's plan of care by entering a problem statement related to safety; individualizes the safety outcome Outcome: Progressing Note: Evaluation of progress towards goal: Problem: Multi-Drug Resistant Organism / Rule-Out Infection Prevention Goal: Prevent transmission of infection Description: INTERVENTIONS 1. Place patient in private room or in room with patient with same disease 2. Discard single-use items 3. Clean reusable equipment between patients 4. Wear gloves for direct and indirect contact with patient or contaminants 5. Change gloves between tasks and procedures 6. Wash hands before and after caring for each patient 7. Wear appropriate personal protective equipment in relation to the indicated isolation type 8. Place appropriate isolation signage on patient's door 9. Provide patient/ patient data entry representative with isolation education. Outcome: Progressing Note: Evaluation of progress towards goal: Problem: Inadequate Airway Clearance Goal: Patient will maintain patent airway Description: INTERVENTIONS 1. Assess and monitor breath sounds, cough and sputum (if present) 2. Monitor respiratory rate and oxygen saturation 3. Collaborate with respiratory therapy to administer medication, oxygen, and suitable airway clearance techniques as ordered 4. Position patient for maximum ventilatory efficiency; elevate head of bed at least 30 degrees if appropriate 5. Provide adequate fluid intake to liquify secretions if appropriate 6. Suction secretions as indicated to maintain patent airway 7. Instruct patient to turn, cough, and deep breathe; encourage incentive spirometer if indicated Outcome: Progressing Note: Evaluation of progress towards goal: Additional Comments: * Plan of Care - Earnestine Gonzalez RN - 04/03/2023 8:11 PM EST Problem: Pain Goal: Patient goal is pain score less than 4, able to rest, and participant in treatment plan as appropriate Description: INTERVENTIONS: 1. Encourage patient or legal data entry representative to report early pain and ask for pain medicine when needed 2. Assess pain using appropriate pain scale and include the scale used when documenting 3. Administer analgesics based on type and severity of pain and evaluate response within appropriate time frame 4. Implement non-pharmacological measures as appropriate and evaluate response 5. Consider cultural and social influences on pain and pain management 6. Notify LIP if interventions ineffective or patient reports new pain 7. Monitor vital signs including pulse ox, end-tidal CO2 based on pain intervention 8. Reassess pain per policy 9. Teach patient or legal data entry representative interventions for comforting Outcome: Progressing Note: Evaluation of progress towards goal: Patient unable to self-report. Patient appears to be resting comfortably in bed. Problem: Safety Goal: Patient will be injury free during hospitalization Description: INTERVENTIONS: 1. Assess patient's risk for falls and implement fall prevention plan of care per policy 2. Provide and maintain a safe environment 3. Proper use of double Identifiers 4. Medication administration using the 5 rights 5. Hand hygiene 6. Specimens are labeled at the bedside 7. Instruct patient/ patient data entry representative about use of safety devices 8. Include patient/ patient data entry representative in decisions related to safety Outcome: Progressing Note: Evaluation of progress towards goal: Bed locked/ in lowest position. Frequent visual monitoring. Bed alarm on and working. Patient's needs addressed during rounds. Patient free from injury at this time. Problem: Infection Goal: Absence of infection during hospitalization Description: Interventions: 1. Assess and monitor for signs and symptoms of infection 2. Monitor lab/diagnostic results 3. Monitor all insertion sites i.e., indwelling lines, tubes and drains 4. Monitor endotracheal (as able) and nasal secretions for changes in amount and color 5. Administer medications as ordered 6. Instruct and encourage patient and family to use good hand hygiene technique 7. Identify and instruct patient/patient data entry representative in use of appropriate isolation precautionsfor identified infection/symptoms 8. Provide and discuss with patient/patient data entry representative on educational MDRO sheet 9. Encourage and monitor nutritional status daily and consult commercial administrator if indicated 10. Implement neutropenic guidelines as needed 11. Review exposure to history of communicable disease and recent travel history on admission 12. Encourage annual influenza vaccine 13. Encourage pneumonia vaccine Outcome: Progressing Note: Evaluation of progress towards goal: Patient afebrile at this time and shows no other signs or symptoms of infection. Problem: Knowledge Deficit Goal: Patient/patient data entry representative demonstrates understanding of disease process, treatment plan,medications, and discharge instructions Description: INTERVENTIONS 1. Complete learning assessment and assess knowledge base 2. Provide teaching at level of understanding 3. Provide teaching via preferred learning method(s) Outcome: Progressing Note: Evaluation of progress towards goal: Problem: Discharge Planning Goal: Discharge to post-acute care, other facility, or home with appropriate resources Description: Patient's goal is: INTERVENTIONS 1. Conduct assessment to determine patient/family and health care team treatment goals, and need for post-acute services based on payer coverage, community resources, and patient preferences, and barriers to discharge 2. Coordinate with Social work, Care Navigation, and Utilization Review to arrange appropriate level of services according to patient's needs based on patient preference and payer coverage in collaboration with the physician and health care team 3. Address psychosocial, clinical, and financial barriers to discharge as identified in assessment in conjunction with the patient/family and health care team 4. Consult appropriate ancillary services (i.e.. PT/OT/ST, etc) as needed 5. Communicate with and update the patient/family, physician, and health care team regarding progress on the discharge plan 6. Identify discharge learning needs (meds, wound care, etc). 7. Arrange for needed discharge transportation as appropriate Outcome: Progressing Note: Evaluation of progress towards goal: Patient to remain in the neuro ICU at this time. Problem: Potential for Compromised Skin Integrity Goal: Skin integrity is maintained or improved Description: Patient's goal is: INTERVENTIONS 1. Perform initial skin assessment on admission and as needed 2. Turn patient every 2 hours and PRN 3. Relieve pressure to bony prominences 4. Avoid shearing 5. Keep skin clean and dry 6. Alternate a full bath with partial baths for elderly 7. Encourage use of lotion/moisturizer on skin 8. Monitor patient's hygiene practices 9. Float heels 10. Collaborate with interdisciplinary team and initiate plans and interventions as needed Outcome: Progressing Note: Evaluation of progress towards goal: Pillow support utilized, q.2 hour turns. Skin assessmentcompleted with initial patient assessment. Skin integrity maintained at this time. Goal: Patient's nutritional intake is adequate Description: Patient's goal is: INTERVENTIONS 1. Assess and monitor food intake and supplements, patient food preferences, nausea, vomiting, labs, oral cavity (gums, teeth, tongue, mucosa), proper denture fit, and cultural beliefs 2. Monitor for signs of hypoglycemia and hyperglycemia 3. Collaborate with interdisciplinary team and initiate plan and interventions as ordered 4. Monitor patient's weight 5. Assist patient with meals/food selection 6. Assist patient with eating 7. Allow adequate time for meals 8. Provide pleasant environment during mealtime 9. Increase social contact during mealtimes 10. Plan activities to conserve energy 11. Encourage/perform oral hygiene as appropriate 12. Encourage patient to take dietary supplement as ordered 13. Collaborate with clinical commercial administrator 14. Include patient/ patient's data entry representative in decisions related to nutrition Outcome: Progressing Note: Evaluation of progress towards goal: Patient receiving continuous tube feeds via pump. Problem: Urinary Incontinence Goal: Perineal skin integrity is maintained or improved Description: INTERVENTIONS 1. Assess genitourinary system, perineal skin, labs (urinalysis), and history of incontinence to include past management, aggravating, and alleviating factors 2. Keep skin clean and dry 3. Apply skin protectant 4. Develop skin care regimen 5. Provide privacy when changing patients incontinence device to maintain their dignity 6. Consider placing an indwelling catheter 7. Collaborate with interdisciplinary team and initiate plans and interventions as needed Outcome: Progressing Note: Evaluation of progress towards goal: Larios catheter in place. Stool incontinence assessed forduring rounds. Perineal skin integrity maintained at this time. Problem: Moderate - High Risk Fall Score Description: [place] Fall Score of =/> 25 or indicated by [facility] Assessment Goal: Patient should be free from fall Description: Interventions: 1. Olds to environment 2. Hourly rounds addressing the 4 P's (Pain, Positioning, Possessions, Potty) 3. Clear area of hazards (spills, clutter, electrical cords, unnecessary equipment) 4. Place equipment (bed & TV controls, call light, phone, urinal) within reach 5. Encourage patient to wear glasses and hearing aides as appropriate 6. Maintain bed in lowest position 7. Lock wheels on bed/wheelchair 8. Provide adequate lighting, including night light 9. Assess need for additional bedding, food/fluids, pain med's prior to sleep/routinely 10. Provide gripper slippers or personal non-skid footwear 11. Teach patient and patient data entry representative to maintain environment for safety and engage in all aspects of fall prevention program 12. Remind patient to call for help before getting out of bed 13. Initiate bed/chair/exit alarms supportive devices as appropriate, (chair wedge, no-skid floor mat, raised edge mattress, hip protectors) 14. Locate patient bed assignment for optimal visualization 15. Evaluate and identify Safe Patient Handling Equipment needs 16. Provide supervision when out of bed or chair 17. Utilize gait belt as needed to assist with ambulation 18. Place adaptive equipment (cane, walker) within reach 19. Request patient data entry representative bring adaptive equipment/mobility aids from home or obtain and provide as needed 20. Consult pharmacy regarding effects of med's affecting mobility, cognition, and alternatives 21. Obtain physician order for PT if risk factors associated with mobility are present 22. Obtain physician order for OT as appropriate 23. Utilize diversional activities 24. Educate patient and patient data entry representative how to maintain a safe environment during visitationtimes (notify nurse prior to leaving bedside) 25. Consider appropriateness of medical or non-medical driver 26. Set up voiding schedule as appropriate (every 2 hours) Outcome: Progressing Note: Evaluation of progress towards goal: Fall precautions in place. Patient free from falls at this time. Problem: Neurological Deficit Goal: Neurological status is stable or improving Description: Patient's goal is: INTERVENTIONS 1. Complete Neurological assessment as indicated/ordered 2. Initiate measures to prevent increased intracranial pressure 3. Monitor and assess patient's level of consciousness, motor function, sensory function, and levelof assistance needed for ADLs 4. Monitor and report changes from baseline 5. Maintain blood pressure and fluid volume within ordered parameters to optimize cerebral perfusion and minimize risk of hemorrhage 6. Monitor labs and diagnostic tests 7. Administer anti-seizure medications as ordered 8. Maintain airway, patient safety and administer oxygen as ordered 9. Monitor patient for seizure activity, document and report duration and description of seizure toLIP 10. If seizure occurs, turn patient to side and suction secretions as needed 11. Reorient patient post seizure 12. Seizure pads on all 4 side rails 13. Instruct patient/family to notify RN of any seizure activity 14. Instruct patient/family to call for assistance with activity based on assessment 15. Utilize bleeding precautions if thrombolytic given Outcome: Progressing Note: Evaluation of progress towards goal: Neuro checks completed as ordered. Patient's neurological status is stable. Problem: Activity Intolerance/Impaired Mobility Goal: Mobility/activity is maintained at optimum level for patient Description: Patient's goal is: INTERVENTIONS 1. Assess and monitor patient barriers to mobility and need for assistive/adaptive devices 2. Assess patient's emotional response to limitations 3. Collaborate with interdisciplinary teams and initiate plans and interventions as ordered 4. Encourage independent activity per tolerance 5. Maintain proper body alignment 6. Perform active/passive ROM as tolerated/ordered 7. Coordinate activities to conserve energy 8. Reposition patient 9. Ensure adequate rest/sleep time Outcome: Progressing Note: Evaluation of progress towards goal: Problem: Communication Impairment Goal: Ability to express needs and understand communication Description: INTERVENTIONS 1. Assess patient's communication skills and ability to understand information 2. Provide alternate method of communication if needed i.e. ipad, sign board, pen/paper 3. Collaborate with Speech Therapy to develop effective communication strategies 4. Include patient/patient data entry representative in decisions related to communication Outcome: Progressing Note: Evaluation of progress towards goal: Patient requires assistance with expressing needs, intermittently understands verbal communication/ gestures. Problem: Potential for Aspiration Goal: Patient's risk of aspiration is minimized Description: INTERVENTIONS 1. Assess and monitor vital signs, respiratory status, and labs (WBC) 2. Monitor for signs of aspiration (tachypnea, cough, rales, wheezing, cyanosis, fever) 3. Assess and monitor patient's ability to swallow 4. Place patient up in chair to eat if possible 5. Elevate head of bed 90 degrees to eat if unable to get patient up into chair 6. Supervise patient during oral intake 7. Instruct patient to take small bites 8. Instruct patient to take small single sips when taking liquids 9. Follow patient-specific strategies generated by speech pathologist 10. Complete bedside swallow screen if appropriate and take actions as indicated. 11. Administer prescribed medications and monitor effects Outcome: Progressing Note: Evaluation of progress towards goal: NG measurement confirmed with assessments. HOB maintained at least 30 degrees. Problem: Anxiety Goal: Anxiety is at manageable level Description: Patient's goal is: INTERVENTIONS 1. Assess and monitor patient's anxiety level 2. Monitor for signs and symptoms of anxiety both physical and emotional (heart palpitations, chestpain, shortness of breath, headaches, nausea, feeling jumpy, restlessness, irritable, apprehensive) 3. Reorient/orient patient to unit/surroundings 4. Explain treatment plan 5. Explain tests/procedures prior to initiation 6. Encourage participation in care 7. Encourage verbalization of concerns/fears 8. Assess coping mechanisms 9. Assist in developing anxiety-reducing skills 10. Administer complimentary therapies 11. Manage patient's environment 12. Limit or eliminate stimulants such as caffeine and nicotine 13. Collaborate with ancillary departments 14. Include patient/patient data entry representative in decisions related to anxiety Outcome: Progressing Note: Evaluation of progress towards goal: Patient has intermittent moments of anxiety/ restlessness. Decreased with repositioning/ verbal reassurance. Problem: Inadequate Coping Goal: Demonstrates and verbalizes ability to cope effectively Description: Patient's goal is: INTERVENTIONS 1. Patient is able to verbalize feelings related to emotional state 2. Encourage verbalization of feelings, perceptions, fears, stressors, loss of loved ones 3. Encourage verbalization of problems out of their control 4. Encourage participation in care and self management 5. Inform patient of all treatment/care prior to providing care 6. Collaborate with pastoral/spiritual care, social media specialist, mental health counselor as needed. 7. Instruct patient on diversional activities such as physical activity, distraction, and deep breathing exercises to assist with coping 8. Involve patient's data entry representative in care Outcome: Progressing Note: Evaluation of progress towards goal: Problem: Self Care Deficit Goal: Return ADL status to a safe level of function Description: Patient's goal is: INTERVENTIONS 1. Administer medication as ordered 2. Assess ADL deficits and provide assistive devices as needed 3. Obtain PT/OT consults as needed 4. Assist and instruct patient to increase activity and self care as tolerated Outcome: Progressing Note: Evaluation of progress towards goal: Patient still requires complete assistance with ADLs. Problem: Safety - Medical Restraint Goal: Remains free of injury from restraints (Restraint for Interference with Um Nurse) Description: INTERVENTIONS: 1. Determine that other, less restrictive measures have been tried or would not be effective beforeapplying the restraint 2. Evaluate the patient's condition at the time of restraint application 3. Inform patient/family regarding the reason for restraint 4. Q2H: Monitor safety, Vital signs, psychosocial status, signs of injury, skin integrity, circulation, neurovascular status in affected extremities, respiratory status, comfort, nutrition and hydration, hygiene, ROM, elimination needs 5. Doctor will be notified of restraint 6. RN properly applies restraints per physician order Outcome: Progressing Note: Evaluation of progress towards goal: Restraints applied correctly. CMS intact. Goal: Free from restraint(s) (Restraint for Interference with Um Nurse) Description: INTERVENTIONS: 1. ONCE/SHIFT or MINIMUM Q12H: Assess and document the continuing need for restraints 2. Order is valid for the duration of the episode of care 3. Discontinue at the earliest possible time once the reason for restraints no longer exists 4. Identify and implement measures to help patient regain control 5. Food, fluids, and toilet offered at a minimum of every 2 hours 6. RN modifies the patient's plan of care by entering a problem statement related to safety; individualizes the safety outcome Outcome: Progressing Note: Evaluation of progress towards goal: Patient still remain is safety medical restraint. Problem: Multi-Drug Resistant Organism / Rule-Out Infection Prevention Goal: Prevent transmission of infection Description: INTERVENTIONS 1. Place patient in private room or in room with patient with same disease 2. Discard single-use items 3. Clean reusable equipment between patients 4. Wear gloves for direct and indirect contact with patient or contaminants 5. Change gloves between tasks and procedures 6. Wash hands before and after caring for each patient 7. Wear appropriate personal protective equipment in relation to the indicated isolation type 8. Place appropriate isolation signage on patient's door 9. Provide patient/ patient data entry representative with isolation education. Outcome: Progressing Note: Evaluation of progress towards goal: Problem: Inadequate Airway Clearance Goal: Patient will maintain patent airway Description: INTERVENTIONS 1. Assess and monitor breath sounds, cough and sputum (if present) 2. Monitor respiratory rate and oxygen saturation 3. Collaborate with respiratory therapy to administer medication, oxygen, and suitable airway clearance techniques as ordered 4. Position patient for maximum ventilatory efficiency; elevate head of bed at least 30 degrees if appropriate 5. Provide adequate fluid intake to liquify secretions if appropriate 6. Suction secretions as indicated to maintain patent airway 7. Instruct patient to turn, cough, and deep breathe; encourage incentive spirometer if indicated Outcome: Progressing Note: Evaluation of progress towards goal: Patient maintains patent airway. * Plan of Care - Jose Alejandro Prasad RCP - 04/03/2023 7:59 PM EST Problem: Inadequate Airway Clearance Goal: Patient will maintain patent airway Description: INTERVENTIONS 1. Assess and monitor breath sounds, cough and sputum (if present) 2. Monitor respiratory rate and oxygen saturation 3. Collaborate with respiratory therapy to administer medication, oxygen, and suitable airway clearance techniques as ordered 4. Position patient for maximum ventilatory efficiency; elevate head of bed at least 30 degrees if appropriate 5. Provide adequate fluid intake to liquify secretions if appropriate 6. Suction secretions as indicated to maintain patent airway 7. Instruct patient to turn, cough, and deep breathe; encourage incentive spirometer if indicated Outcome: Progressing Note: Respiratory Therapy Clinical Practice Guidelines Consult Clinical Practice Guidelines Ordered Consult Assessment: Consult, Broncho-pulmonary hygiene Broncho-pulmonary Hygiene Indications: To prevent/reverse atelectasis Broncho-pulmonary Hygiene Total: 1 Vital Signs BP: 145/79 Pulse: 79 Heart Rate Source: Monitor Resp: 16 SpO2: 93 % O2 Device: Nasal cannula O2 Flow Rate (L/min): 2 L/min FiO2 (%): 28 % Patient Position: Semi-fowlers Respiratory Assessment Assessment Type: Initial assessment, Pre-treatment, Post-treatment Level of Consciousness: Responds to Voice Respiratory Pattern: Regular Chest Assessment: Chest expansion symmetrical Bilateral Breath Sounds: Clear Patient Active Problem List Diagnosis 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CMS-HCC) Last Chest XRAY: Reviewed Pulmonary History: reviewed RT Reassessment Due In: 12 hours Broncho-Pulmonary Hygiene Level of Movement Level 2: Actively changing positions - requires assistance Breath Sounds Level 1: Slightly diminished or clear Cough Level 1: Strong, effective Chest X-Ray Level 1: Possible signs of consolidation and/or atelectasis or clear ; No CXR available Sputum Production Level 1: None or small amount of thin or watery secretions with effective cough History & Physical Level 1: None or New onset of bronchitis or existing chronic pulmonary condition. (not in an exacerbation) SpO2 to O2 Need Level 1: >92% on room air or NC < 3 lpm Patients Current Level & Intervention: 1 Teach/instruct patient to cough and deep breathe Q1-2 hours Evaluation of progress towards goal: Reviewed patient stable, will continue to monitor. * Plan of Care - Mya Jimenez RN - 04/03/2023 7:14 AM EST Problem: Pain Goal: Patient goal is pain score less than 4, able to rest, and participant in treatment plan as appropriate Description: INTERVENTIONS: 1. Encourage patient or legal data entry representative to report early pain and ask for pain medicine when needed 2. Assess pain using appropriate pain scale and include the scale used when documenting 3. Administer analgesics based on type and severity of pain and evaluate response within appropriate time frame 4. Implement non-pharmacological measures as appropriate and evaluate response 5. Consider cultural and social influences on pain and pain management 6. Notify LIP if interventions ineffective or patient reports new pain 7. Monitor vital signs including pulse ox, end-tidal CO2 based on pain intervention 8. Reassess pain per policy 9. Teach patient or legal data entry representative interventions for comforting Outcome: Progressing Note: Evaluation of progress towards goal: Patient states no pain. Will monitor for s/s of pain andaddress accordingly. Problem: Safety Goal: Patient will be injury free during hospitalization Description: INTERVENTIONS: 1. Assess patient's risk for falls and implement fall prevention plan of care per policy 2. Provide and maintain a safe environment 3. Proper use of double Identifiers 4. Medication administration using the 5 rights 5. Hand hygiene 6. Specimens are labeled at the bedside 7. Instruct patient/ patient data entry representative about use of safety devices 8. Include patient/ patient data entry representative in decisions related to safety Outcome: Progressing Note: Evaluation of progress towards goal: Patient remains free from injury, hourly rounds maintained. Problem: Infection Goal: Absence of infection during hospitalization Description: Interventions: 1. Assess and monitor for signs and symptoms of infection 2. Monitor lab/diagnostic results 3. Monitor all insertion sites i.e., indwelling lines, tubes and drains 4. Monitor endotracheal (as able) and nasal secretions for changes in amount and color 5. Administer medications as ordered 6. Instruct and encourage patient and family to use good hand hygiene technique 7. Identify and instruct patient/patient data entry representative in use of appropriate isolation precautionsfor identified infection/symptoms 8. Provide and discuss with patient/patient data entry representative on educational MDRO sheet 9. Encourage and monitor nutritional status daily and consult commercial administrator if indicated 10. Implement neutropenic guidelines as needed 11. Review exposure to history of communicable disease and recent travel history on admission 12. Encourage annual influenza vaccine 13. Encourage pneumonia vaccine Outcome: Progressing Note: Evaluation of progress towards goal: Patient remains free from signs and symptoms of infection, patient is afebrile, WBC within normal limits. Problem: Knowledge Deficit Goal: Patient/patient data entry representative demonstrates understanding of disease process, treatment plan,medications, and discharge instructions Description: INTERVENTIONS 1. Complete learning assessment and assess knowledge base 2. Provide teaching at level of understanding 3. Provide teaching via preferred learning method(s) Outcome: Progressing Note: Evaluation of progress towards goal: Patient's family verbalizes understanding of plan of care, education provided q shift and PRN. Will continue to reinforce. Problem: Discharge Planning Goal: Discharge to post-acute care, other facility, or home with appropriate resources Description: Patient's goal is: INTERVENTIONS 1. Conduct assessment to determine patient/family and health care team treatment goals, and need for post-acute services based on payer coverage, community resources, and patient preferences, and barriers to discharge 2. Coordinate with Social work, Care Navigation, and Utilization Review to arrange appropriate level of services according to patient's needs based on patient preference and payer coverage in collaboration with the physician and health care team 3. Address psychosocial, clinical, and financial barriers to discharge as identified in assessment in conjunction with the patient/family and health care team 4. Consult appropriate ancillary services (i.e.. PT/OT/ST, etc) as needed 5. Communicate with and update the patient/family, physician, and health care team regarding progress on the discharge plan 6. Identify discharge learning needs (meds, wound care, etc). 7. Arrange for needed discharge transportation as appropriate Outcome: Progressing Note: Evaluation of progress towards goal: Discharge planning in progress, not yet appropriate for discharge. Will continue to evaluate barriers. Problem: Potential for Compromised Skin Integrity Goal: Skin integrity is maintained or improved Description: Patient's goal is: INTERVENTIONS 1. Perform initial skin assessment on admission and as needed 2. Turn patient every 2 hours and PRN 3. Relieve pressure to bony prominences 4. Avoid shearing 5. Keep skin clean and dry 6. Alternate a full bath with partial baths for elderly 7. Encourage use of lotion/moisturizer on skin 8. Monitor patient's hygiene practices 9. Float heels 10. Collaborate with interdisciplinary team and initiate plans and interventions as needed Outcome: Progressing Note: Evaluation of progress towards goal: No new skin breakdown noted, turned q 2 and PRN. Skin isclean, dry, and intact. Problem: Potential for Compromised Skin Integrity Goal: Patient's nutritional intake is adequate Description: Patient's goal is: INTERVENTIONS 1. Assess and monitor food intake and supplements, patient food preferences, nausea, vomiting, labs, oral cavity (gums, teeth, tongue, mucosa), proper denture fit, and cultural beliefs 2. Monitor for signs of hypoglycemia and hyperglycemia 3. Collaborate with interdisciplinary team and initiate plan and interventions as ordered 4. Monitor patient's weight 5. Assist patient with meals/food selection 6. Assist patient with eating 7. Allow adequate time for meals 8. Provide pleasant environment during mealtime 9. Increase social contact during mealtimes 10. Plan activities to conserve energy 11. Encourage/perform oral hygiene as appropriate 12. Encourage patient to take dietary supplement as ordered 13. Collaborate with clinical commercial administrator 14. Include patient/ patient's data entry representative in decisions related to nutrition Outcome: Progressing Note: Evaluation of progress towards goal: Patient tolerating enteral diet, no nausea, vomiting, ordiscomfort noted. Bowel sounds active. Will continue to monitor. Tube feeds at goal, residuals appropriate Problem: Urinary Incontinence Goal: Perineal skin integrity is maintained or improved Description: INTERVENTIONS 1. Assess genitourinary system, perineal skin, labs (urinalysis), and history of incontinence to include past management, aggravating, and alleviating factors 2. Keep skin clean and dry 3. Apply skin protectant 4. Develop skin care regimen 5. Provide privacy when changing patients incontinence device to maintain their dignity 6. Consider placing an indwelling catheter 7. Collaborate with interdisciplinary team and initiate plans and interventions as needed Outcome: Progressing Note: Evaluation of progress towards goal: Patient continues to have retention, larios catheter continues. Angelica care provided q shift and PRN. Output is adequate. Problem: Moderate - High Risk Fall Score Description: Cordova Fall Score of =/> 25 or indicated by [facility] Assessment Goal: Patient should be free from fall Description: Interventions: 1. Olds to environment 2. Hourly rounds addressing the 4 P's (Pain, Positioning, Possessions, Potty) 3. Clear area of hazards (spills, clutter, electrical cords, unnecessary equipment) 4. Place equipment (bed & TV controls, call light, phone, urinal) within reach 5. Encourage patient to wear glasses and hearing aides as appropriate 6. Maintain bed in lowest position 7. Lock wheels on bed/wheelchair 8. Provide adequate lighting, including night light 9. Assess need for additional bedding, food/fluids, pain med's prior to sleep/routinely 10. Provide gripper slippers or personal non-skid footwear 11. Teach patient and patient data entry representative to maintain environment for safety and engage in all aspects of fall prevention program 12. Remind patient to call for help before getting out of bed 13. Initiate bed/chair/exit alarms supportive devices as appropriate, (chair wedge, no-skid floor mat, raised edge mattress, hip protectors) 14. Locate patient bed assignment for optimal visualization 15. Evaluate and identify Safe Patient Handling Equipment needs 16. Provide supervision when out of bed or chair 17. Utilize gait belt as needed to assist with ambulation 18. Place adaptive equipment (cane, walker) within reach 19. Request patient data entry representative bring adaptive equipment/mobility aids from home or obtain and provide as needed 20. Consult pharmacy regarding effects of med's affecting mobility, cognition, and alternatives 21. Obtain physician order for PT if risk factors associated with mobility are present 22. Obtain physician order for OT as appropriate 23. Utilize diversional activities 24. Educate patient and patient data entry representative how to maintain a safe environment during visitationtimes (notify nurse prior to leaving bedside) 25. Consider appropriateness of medical or non-medical driver 26. Set up voiding schedule as appropriate (every 2 hours) Outcome: Progressing Note: Evaluation of progress towards goal: Patient remains free from falls and injury, fall risk IDband on, fall prevention education and precautions provided and in place. Patient verbalizes and demonstrates understanding, hourly rounds maintained. Problem: Neurological Deficit Goal: Neurological status is stable or improving Description: Patient's goal is: INTERVENTIONS 1. Complete Neurological assessment as indicated/ordered 2. Initiate measures to prevent increased intracranial pressure 3. Monitor and assess patient's level of consciousness, motor function, sensory function, and levelof assistance needed for ADLs 4. Monitor and report changes from baseline 5. Maintain blood pressure and fluid volume within ordered parameters to optimize cerebral perfusion and minimize risk of hemorrhage 6. Monitor labs and diagnostic tests 7. Administer anti-seizure medications as ordered 8. Maintain airway, patient safety and administer oxygen as ordered 9. Monitor patient for seizure activity, document and report duration and description of seizure toLIP 10. If seizure occurs, turn patient to side and suction secretions as needed 11. Reorient patient post seizure 12. Seizure pads on all 4 side rails 13. Instruct patient/family to notify RN of any seizure activity 14. Instruct patient/family to call for assistance with activity based on assessment 15. Utilize bleeding precautions if thrombolytic given Outcome: Progressing Note: Evaluation of progress towards goal: Patient's neurological status is stable at this time. Will continue to reassess. Problem: Safety - Medical Restraint Goal: Remains free of injury from restraints (Restraint for Interference with Um Nurse) Description: INTERVENTIONS: 1. Determine that other, less restrictive measures have been tried or would not be effective beforeapplying the restraint 2. Evaluate the patient's condition at the time of restraint application 3. Inform patient/family regarding the reason for restraint 4. Q2H: Monitor safety, Vital signs, psychosocial status, signs of injury, skin integrity, circulation, neurovascular status in affected extremities, respiratory status, comfort, nutrition and hydration, hygiene, ROM, elimination needs 5. Doctor will be notified of restraint 6. RN properly applies restraints per physician order Outcome: Progressing Note: Evaluation of progress towards goal: Restraints continue, patient continues to pull at lines,tubes, and drains. Q 2 hour assessments for need, safety, circulation, and skin continue. Patient remains restrained at this time, active order in place. Additional Comments: * Plan of Care - Neetu Rodriguez RN - 04/03/2023 12:11 AM EST Problem: Pain Goal: Patient goal is pain score less than 4, able to rest, and participant in treatment plan as appropriate Description: INTERVENTIONS: 1. Encourage patient or legal data entry representative to report early pain and ask for pain medicine when needed 2. Assess pain using appropriate pain scale and include the scale used when documenting 3. Administer analgesics based on type and severity of pain and evaluate response within appropriate time frame 4. Implement non-pharmacological measures as appropriate and evaluate response 5. Consider cultural and social influences on pain and pain management 6. Notify LIP if interventions ineffective or patient reports new pain 7. Monitor vital signs including pulse ox, end-tidal CO2 based on pain intervention 8. Reassess pain per policy 9. Teach patient or legal data entry representative interventions for comforting Outcome: Progressing Note: Evaluation of progress towards goal: patient will remain free of pain or maintain a tolerablelevel, pt currently rating pain a 0 out of 10, patient repositioned for comfort, nods/gestures appropriately. Problem: Safety Goal: Patient will be injury free during hospitalization Description: INTERVENTIONS: 1. Assess patient's risk for falls and implement fall prevention plan of care per policy 2. Provide and maintain a safe environment 3. Proper use of double Identifiers 4. Medication administration using the 5 rights 5. Hand hygiene 6. Specimens are labeled at the bedside 7. Instruct patient/ patient data entry representative about use of safety devices 8. Include patient/ patient data entry representative in decisions related to safety Outcome: Progressing Note: Evaluation of progress towards goal: Patient will remain free of injury during stay, double identifiers used, specimens labeled at bedside, hand hygiene performed by staff Problem: Infection Goal: Absence of infection during hospitalization Description: Interventions: 1. Assess and monitor for signs and symptoms of infection 2. Monitor lab/diagnostic results 3. Monitor all insertion sites i.e., indwelling lines, tubes and drains 4. Monitor endotracheal (as able) and nasal secretions for changes in amount and color 5. Administer medications as ordered 6. Instruct and encourage patient and family to use good hand hygiene technique 7. Identify and instruct patient/patient data entry representative in use of appropriate isolation precautionsfor identified infection/symptoms 8. Provide and discuss with patient/patient data entry representative on educational MDRO sheet 9. Encourage and monitor nutritional status daily and consult commercial administrator if indicated 10. Implement neutropenic guidelines as needed 11. Review exposure to history of communicable disease and recent travel history on admission 12. Encourage annual influenza vaccine 13. Encourage pneumonia vaccine Outcome: Progressing Note: Evaluation of progress towards goal: Patient is afebrile, lines/tubes/ and drains remain freefrom kinks, staff maintaining proper hand hygiene, medications administered as ordered Problem: Knowledge Deficit Goal: Patient/patient data entry representative demonstrates understanding of disease process, treatment plan,medications, and discharge instructions Description: INTERVENTIONS 1. Complete learning assessment and assess knowledge base 2. Provide teaching at level of understanding 3. Provide teaching via preferred learning method(s) Outcome: Progressing Note: Evaluation of progress towards goal: patient intermittently demonstrates understanding of disease process and treatment plan at this time. Will continue to evaluate for further understanding. Patient nods/gestures appropriately at this time. Family at bedside updated on current plan of care, no further questions at this time. Problem: Discharge Planning Goal: Discharge to post-acute care, other facility, or home with appropriate resources Description: Patient's goal is: INTERVENTIONS 1. Conduct assessment to determine patient/family and health care team treatment goals, and need for post-acute services based on payer coverage, community resources, and patient preferences, and barriers to discharge 2. Coordinate with Social work, Care Navigation, and Utilization Review to arrange appropriate level of services according to patient's needs based on patient preference and payer coverage in collaboration with the physician and health care team 3. Address psychosocial, clinical, and financial barriers to discharge as identified in assessment in conjunction with the patient/family and health care team 4. Consult appropriate ancillary services (i.e.. PT/OT/ST, etc) as needed 5. Communicate with and update the patient/family, physician, and health care team regarding progress on the discharge plan 6. Identify discharge learning needs (meds, wound care, etc). 7. Arrange for needed discharge transportation as appropriate Outcome: Progressing Note: Evaluation of progress towards goal: Discharge planning in progress. Problem: Neurological Deficit Goal: Neurological status is stable or improving Description: Patient's goal is: INTERVENTIONS 1. Complete Neurological assessment as indicated/ordered 2. Initiate measures to prevent increased intracranial pressure 3. Monitor and assess patient's level of consciousness, motor function, sensory function, and levelof assistance needed for ADLs 4. Monitor and report changes from baseline 5. Maintain blood pressure and fluid volume within ordered parameters to optimize cerebral perfusion and minimize risk of hemorrhage 6. Monitor labs and diagnostic tests 7. Administer anti-seizure medications as ordered 8. Maintain airway, patient safety and administer oxygen as ordered 9. Monitor patient for seizure activity, document and report duration and description of seizure toLIP 10. If seizure occurs, turn patient to side and suction secretions as needed 11. Reorient patient post seizure 12. Seizure pads on all 4 side rails 13. Instruct patient/family to notify RN of any seizure activity 14. Instruct patient/family to call for assistance with activity based on assessment 15. Utilize bleeding precautions if thrombolytic given Outcome: Progressing Note: Evaluation of progress towards goal: Q2H neuro checks as ordered, blood pressure maintained with cardene drip on, fluids running at 50ml/hr, EEG monitoring ongoing at this time * Plan of Care - Chuy Zhou RN - 04/02/2023 10:48 AM EST Problem: Pain Goal: Patient goal is pain score less than 4, able to rest, and participant in treatment plan as appropriate Description: INTERVENTIONS: 1. Encourage patient or legal data entry representative to report early pain and ask for pain medicine when needed 2. Assess pain using appropriate pain scale and include the scale used when documenting 3. Administer analgesics based on type and severity of pain and evaluate response within appropriate time frame 4. Implement non-pharmacological measures as appropriate and evaluate response 5. Consider cultural and social influences on pain and pain management 6. Notify LIP if interventions ineffective or patient reports new pain 7. Monitor vital signs including pulse ox, end-tidal CO2 based on pain intervention 8. Reassess pain per policy 9. Teach patient or legal data entry representative interventions for comforting Outcome: Progressing Note: Evaluation of progress towards goal: Patient currently denies pain. Patient encouraged to communicate with staff if pain occurs. Care continues, along with collaboration with interprofessional team as necessary. Problem: Safety Goal: Patient will be injury free during hospitalization Description: INTERVENTIONS: 1. Assess patient's risk for falls and implement fall prevention plan of care per policy 2. Provide and maintain a safe environment 3. Proper use of double Identifiers 4. Medication administration using the 5 rights 5. Hand hygiene 6. Specimens are labeled at the bedside 7. Instruct patient/ patient data entry representative about use of safety devices 8. Include patient/ patient data entry representative in decisions related to safety Outcome: Progressing Note: Evaluation of progress towards goal: Patient safety maintained, call light in reach, area clear of hazards, hourly rounding continued, bed locked in lowest position, alarm on as applicable, nonskid socks on, safety educated completed with patient/family, no injuries noted at this time. Problem: Infection Goal: Absence of infection during hospitalization Description: Interventions: 1. Assess and monitor for signs and symptoms of infection 2. Monitor lab/diagnostic results 3. Monitor all insertion sites i.e., indwelling lines, tubes and drains 4. Monitor endotracheal (as able) and nasal secretions for changes in amount and color 5. Administer medications as ordered 6. Instruct and encourage patient and family to use good hand hygiene technique 7. Identify and instruct patient/patient data entry representative in use of appropriate isolation precautionsfor identified infection/symptoms 8. Provide and discuss with patient/patient data entry representative on educational MDRO sheet 9. Encourage and monitor nutritional status daily and consult commercial administrator if indicated 10. Implement neutropenic guidelines as needed 11. Review exposure to history of communicable disease and recent travel history on admission 12. Encourage annual influenza vaccine 13. Encourage pneumonia vaccine Outcome: Progressing Note: Evaluation of progress towards goal: Patient remains free from signs of infection at this time. Care continues, along with collaboration with interprofessional team as necessary. Problem: Knowledge Deficit Goal: Patient/patient data entry representative demonstrates understanding of disease process, treatment plan,medications, and discharge instructions Description: INTERVENTIONS 1. Complete learning assessment and assess knowledge base 2. Provide teaching at level of understanding 3. Provide teaching via preferred learning method(s) Outcome: Progressing Note: Evaluation of progress towards goal: Care plan discussed & goals for shift set with patient input appreciated. All questions answered. Problem: Discharge Planning Goal: Discharge to post-acute care, other facility, or home with appropriate resources Description: Patient's goal is: INTERVENTIONS 1. Conduct assessment to determine patient/family and health care team treatment goals, and need for post-acute services based on payer coverage, community resources, and patient preferences, and barriers to discharge 2. Coordinate with Social work, Care Navigation, and Utilization Review to arrange appropriate level of services according to patient's needs based on patient preference and payer coverage in collaboration with the physician and health care team 3. Address psychosocial, clinical, and financial barriers to discharge as identified in assessment in conjunction with the patient/family and health care team 4. Consult appropriate ancillary services (i.e.. PT/OT/ST, etc) as needed 5. Communicate with and update the patient/family, physician, and health care team regarding progress on the discharge plan 6. Identify discharge learning needs (meds, wound care, etc). 7. Arrange for needed discharge transportation as appropriate Outcome: Progressing Note: Evaluation of progress towards goal: Discharge planning in progress with appropriate multidisciplinary teams. Problem: Potential for Compromised Skin Integrity Goal: Skin integrity is maintained or improved Description: Patient's goal is: INTERVENTIONS 1. Perform initial skin assessment on admission and as needed 2. Turn patient every 2 hours and PRN 3. Relieve pressure to bony prominences 4. Avoid shearing 5. Keep skin clean and dry 6. Alternate a full bath with partial baths for elderly 7. Encourage use of lotion/moisturizer on skin 8. Monitor patient's hygiene practices 9. Float heels 10. Collaborate with interdisciplinary team and initiate plans and interventions as needed Outcome: Progressing Note: Evaluation of progress towards goal: Patient repositioned Q2 hrs. Monitor for s/s of skin breakdown and treat/communicate with treatment team as needed. Goal: Patient's nutritional intake is adequate Description: Patient's goal is: INTERVENTIONS 1. Assess and monitor food intake and supplements, patient food preferences, nausea, vomiting, labs, oral cavity (gums, teeth, tongue, mucosa), proper denture fit, and cultural beliefs 2. Monitor for signs of hypoglycemia and hyperglycemia 3. Collaborate with interdisciplinary team and initiate plan and interventions as ordered 4. Monitor patient's weight 5. Assist patient with meals/food selection 6. Assist patient with eating 7. Allow adequate time for meals 8. Provide pleasant environment during mealtime 9. Increase social contact during mealtimes 10. Plan activities to conserve energy 11. Encourage/perform oral hygiene as appropriate 12. Encourage patient to take dietary supplement as ordered 13. Collaborate with clinical commercial administrator 14. Include patient/ patient's data entry representative in decisions related to nutrition Outcome: Progressing Note: Evaluation of progress towards goal: Pt nutritional needs monitored and addressed as ordered by physician. Dietary recommendations appreciated as ordered. Problem: Urinary Incontinence Goal: Perineal skin integrity is maintained or improved Description: INTERVENTIONS 1. Assess genitourinary system, perineal skin, labs (urinalysis), and history of incontinence to include past management, aggravating, and alleviating factors 2. Keep skin clean and dry 3. Apply skin protectant 4. Develop skin care regimen 5. Provide privacy when changing patients incontinence device to maintain their dignity 6. Consider placing an indwelling catheter 7. Collaborate with interdisciplinary team and initiate plans and interventions as needed Outcome: Progressing Note: Evaluation of progress towards goal: Perineal skin integrity remains clean, dry, and intact with no redness or s/s of breakdown. Skin care regimen considered as needed. Collaboration with interdisciplinary teams considered as needed. Problem: Moderate - High Risk Fall Score Description: [place] Fall Score of =/> 25 or indicated by [facility] Assessment Goal: Patient should be free from fall Description: Interventions: 1. Olds to environment 2. Hourly rounds addressing the 4 P's (Pain, Positioning, Possessions, Potty) 3. Clear area of hazards (spills, clutter, electrical cords, unnecessary equipment) 4. Place equipment (bed & TV controls, call light, phone, urinal) within reach 5. Encourage patient to wear glasses and hearing aides as appropriate 6. Maintain bed in lowest position 7. Lock wheels on bed/wheelchair 8. Provide adequate lighting, including night light 9. Assess need for additional bedding, food/fluids, pain med's prior to sleep/routinely 10. Provide gripper slippers or personal non-skid footwear 11. Teach patient and patient data entry representative to maintain environment for safety and engage in all aspects of fall prevention program 12. Remind patient to call for help before getting out of bed 13. Initiate bed/chair/exit alarms supportive devices as appropriate, (chair wedge, no-skid floor mat, raised edge mattress, hip protectors) 14. Locate patient bed assignment for optimal visualization 15. Evaluate and identify Safe Patient Handling Equipment needs 16. Provide supervision when out of bed or chair 17. Utilize gait belt as needed to assist with ambulation 18. Place adaptive equipment (cane, walker) within reach 19. Request patient data entry representative bring adaptive equipment/mobility aids from home or obtain and provide as needed 20. Consult pharmacy regarding effects of med's affecting mobility, cognition, and alternatives 21. Obtain physician order for PT if risk factors associated with mobility are present 22. Obtain physician order for OT as appropriate 23. Utilize diversional activities 24. Educate patient and patient data entry representative how to maintain a safe environment during visitationtimes (notify nurse prior to leaving bedside) 25. Consider appropriateness of medical or non-medical driver 26. Set up voiding schedule as appropriate (every 2 hours) Outcome: Progressing Note: Evaluation of progress towards goal: Fall risk assessment preformed and safety measures in place. Education given to family/patient. Care continues, along with collaboration with multidisciplinary team as necessary. Problem: Neurological Deficit Goal: Neurological status is stable or improving Description: Patient's goal is: INTERVENTIONS 1. Complete Neurological assessment as indicated/ordered 2. Initiate measures to prevent increased intracranial pressure 3. Monitor and assess patient's level of consciousness, motor function, sensory function, and levelof assistance needed for ADLs 4. Monitor and report changes from baseline 5. Maintain blood pressure and fluid volume within ordered parameters to optimize cerebral perfusion and minimize risk of hemorrhage 6. Monitor labs and diagnostic tests 7. Administer anti-seizure medications as ordered 8. Maintain airway, patient safety and administer oxygen as ordered 9. Monitor patient for seizure activity, document and report duration and description of seizure toLIP 10. If seizure occurs, turn patient to side and suction secretions as needed 11. Reorient patient post seizure 12. Seizure pads on all 4 side rails 13. Instruct patient/family to notify RN of any seizure activity 14. Instruct patient/family to call for assistance with activity based on assessment 15. Utilize bleeding precautions if thrombolytic given Outcome: Progressing Note: Evaluation of progress towards goal: Patient's level of consciousness, motor function, sensory function, and level of assistance needed for ADLs all monitored and assessed at this time. Changesfrom baseline reported to necessary personal when needed. Patients care is optimized for cerebral perfusion accordingly to patients orders. Problem: Activity Intolerance/Impaired Mobility Goal: Mobility/activity is maintained at optimum level for patient Description: Patient's goal is: INTERVENTIONS 1. Assess and monitor patient barriers to mobility and need for assistive/adaptive devices 2. Assess patient's emotional response to limitations 3. Collaborate with interdisciplinary teams and initiate plans and interventions as ordered 4. Encourage independent activity per tolerance 5. Maintain proper body alignment 6. Perform active/passive ROM as tolerated/ordered 7. Coordinate activities to conserve energy 8. Reposition patient 9. Ensure adequate rest/sleep time Outcome: Progressing Note: Evaluation of progress towards goal: Patient repositioned Q2H and as needed to balance activity and rest. Assessment completed for any needs on assistive devices/patient safe handling equipment. Collaboration with interdisciplinary teams considered. Problem: Communication Impairment Goal: Ability to express needs and understand communication Description: INTERVENTIONS 1. Assess patient's communication skills and ability to understand information 2. Provide alternate method of communication if needed i.e. ipad, sign board, pen/paper 3. Collaborate with Speech Therapy to develop effective communication strategies 4. Include patient/patient data entry representative in decisions related to communication Outcome: Progressing Note: Evaluation of progress towards goal: Patient continuously monitored by speech therapy, along with collaboration with multidisciplinary team as necessary. Problem: Potential for Aspiration Goal: Patient's risk of aspiration is minimized Description: INTERVENTIONS 1. Assess and monitor vital signs, respiratory status, and labs (WBC) 2. Monitor for signs of aspiration (tachypnea, cough, rales, wheezing, cyanosis, fever) 3. Assess and monitor patient's ability to swallow 4. Place patient up in chair to eat if possible 5. Elevate head of bed 90 degrees to eat if unable to get patient up into chair 6. Supervise patient during oral intake 7. Instruct patient to take small bites 8. Instruct patient to take small single sips when taking liquids 9. Follow patient-specific strategies generated by speech pathologist 10. Complete bedside swallow screen if appropriate and take actions as indicated. 11. Administer prescribed medications and monitor effects Outcome: Progressing Note: Evaluation of progress towards goal: Patient's risk of aspiration is minimized by maintainingHOB at 20 degrees, repositioning, appropriate diet modifications, and collaborating with speech therapy and other multidisciplinary teams as necessary. Problem: Anxiety Goal: Anxiety is at manageable level Description: Patient's goal is: INTERVENTIONS 1. Assess and monitor patient's anxiety level 2. Monitor for signs and symptoms of anxiety both physical and emotional (heart palpitations, chestpain, shortness of breath, headaches, nausea, feeling jumpy, restlessness, irritable, apprehensive) 3. Reorient/orient patient to unit/surroundings 4. Explain treatment plan 5. Explain tests/procedures prior to initiation 6. Encourage participation in care 7. Encourage verbalization of concerns/fears 8. Assess coping mechanisms 9. Assist in developing anxiety-reducing skills 10. Administer complimentary therapies 11. Manage patient's environment 12. Limit or eliminate stimulants such as caffeine and nicotine 13. Collaborate with ancillary departments 14. Include patient/patient data entry representative in decisions related to anxiety Outcome: Progressing Note: Evaluation of progress towards goal: Patient remains free from anxiety. Care continues, alongwith collaboration with multidisciplinary team as necessary. Problem: Inadequate Coping Goal: Demonstrates and verbalizes ability to cope effectively Description: Patient's goal is: INTERVENTIONS 1. Patient is able to verbalize feelings related to emotional state 2. Encourage verbalization of feelings, perceptions, fears, stressors, loss of loved ones 3. Encourage verbalization of problems out of their control 4. Encourage participation in care and self management 5. Inform patient of all treatment/care prior to providing care 6. Collaborate with pastoral/spiritual care, social media specialist, mental health counselor as needed. 7. Instruct patient on diversional activities such as physical activity, distraction, and deep breathing exercises to assist with coping 8. Involve patient's data entry representative in care Outcome: Progressing Note: Evaluation of progress towards goal: Encourage patient to verbalize fears, anxieties, feelings of denial, depression, anger, and all other negative emotions. Problem: Self Care Deficit Goal: Return ADL status to a safe level of function Description: Patient's goal is: INTERVENTIONS 1. Administer medication as ordered 2. Assess ADL deficits and provide assistive devices as needed 3. Obtain PT/OT consults as needed 4. Assist and instruct patient to increase activity and self care as tolerated Outcome: Progressing Note: Evaluation of progress towards goal: Collaborate with PT and OT to improve ROM and self-care activities. Problem: Potential for Inadequate Tissue Perfusion - Venous Goal: Tissue perfusion is adequate - venous Description: Patient's goal is: INTERVENTIONS 1. Assess and monitor skin color and temperature, skin integrity, pulses, capillary refill, edema, pain in extremities and Homans' sign 2. Monitor for signs and symptoms (dyspnea, tachypnea, and tachycardia) 3. Encourage ambulation/activity per patient's tolerance and physician order 4. Elevate feet when in chair 5. Encourage patient to do ankle pump exercises 6. Apply anti-embolism stockings/devices as ordered Outcome: Completed Note: Evaluation of progress towards goal: * PT/OT/PIPE BENDER - Chico Espinal CCC-PIPE BENDER - 04/02/2023 8:30 AM EST Speech Therapy CANCEL - Deferred [facility]SS on hold as pt is too lethargic. * PT/OT/PIPE BENDER - Sun Lamb, PT - 04/02/2023 7:53 AM EST Physical Therapy (P) CANCEL - Deferred (hold medical status - new brain bleed) Will check back as appropriate. * PT/OT/PIPE BENDER - Antolin Rodriguez OTR/Cyril - 04/02/2023 7:06 AM EST Occupational Therapy CANCEL - Deferred (hold - patient has L BG IPH with CANDI and new imaging noted as of 04/02 with Benitez BAKER) * Plan of Care - Shen Chacko RN - 04/01/2023 8:51 PM EST Problem: Pain Goal: Patient goal is pain score less than 4, able to rest, and participant in treatment plan as appropriate Description: INTERVENTIONS: 1. Encourage patient or legal data entry representative to report early pain and ask for pain medicine when needed 2. Assess pain using appropriate pain scale and include the scale used when documenting 3. Administer analgesics based on type and severity of pain and evaluate response within appropriate time frame 4. Implement non-pharmacological measures as appropriate and evaluate response 5. Consider cultural and social influences on pain and pain management 6. Notify LIP if interventions ineffective or patient reports new pain 7. Monitor vital signs including pulse ox, end-tidal CO2 based on pain intervention 8. Reassess pain per policy 9. Teach patient or legal data entry representative interventions for comforting Outcome: Progressing Note: Evaluation of progress towards goal: pt able to verbalize pain level and if interventions areneeded Problem: Safety Goal: Patient will be injury free during hospitalization Description: INTERVENTIONS: 1. Assess patient's risk for falls and implement fall prevention plan of care per policy 2. Provide and maintain a safe environment 3. Proper use of double Identifiers 4. Medication administration using the 5 rights 5. Hand hygiene 6. Specimens are labeled at the bedside 7. Instruct patient/ patient data entry representative about use of safety devices 8. Include patient/ patient data entry representative in decisions related to safety Outcome: Progressing Note: Evaluation of progress towards goal: pt has remained free from injury during hospitalization Problem: Infection Goal: Absence of infection during hospitalization Description: Interventions: 1. Assess and monitor for signs and symptoms of infection 2. Monitor lab/diagnostic results 3. Monitor all insertion sites i.e., indwelling lines, tubes and drains 4. Monitor endotracheal (as able) and nasal secretions for changes in amount and color 5. Administer medications as ordered 6. Instruct and encourage patient and family to use good hand hygiene technique 7. Identify and instruct patient/patient data entry representative in use of appropriate isolation precautionsfor identified infection/symptoms 8. Provide and discuss with patient/patient data entry representative on educational MDRO sheet 9. Encourage and monitor nutritional status daily and consult commercial administrator if indicated 10. Implement neutropenic guidelines as needed 11. Review exposure to history of communicable disease and recent travel history on admission 12. Encourage annual influenza vaccine 13. Encourage pneumonia vaccine Outcome: Progressing Note: Evaluation of progress towards goal: Pt has remained free from infection during hospitalization * Plan of Care - Camacho Jennings RN - 04/01/2023 4:24 PM EST Problem: Potential for Compromised Skin Integrity Goal: Patient's nutritional intake is adequate Description: Patient's goal is: INTERVENTIONS 1. Assess and monitor food intake and supplements, patient food preferences, nausea, vomiting, labs, oral cavity (gums, teeth, tongue, mucosa), proper denture fit, and cultural beliefs 2. Monitor for signs of hypoglycemia and hyperglycemia 3. Collaborate with interdisciplinary team and initiate plan and interventions as ordered 4. Monitor patient's weight 5. Assist patient with meals/food selection 6. Assist patient with eating 7. Allow adequate time for meals 8. Provide pleasant environment during mealtime 9. Increase social contact during mealtimes 10. Plan activities to conserve energy 11. Encourage/perform oral hygiene as appropriate 12. Encourage patient to take dietary supplement as ordered 13. Collaborate with clinical commercial administrator 14. Include patient/ patient's data entry representative in decisions related to nutrition Outcome: Not Progressing Note: Evaluation of progress towards goal: Patient failed bedside swallow, Dredge Captain defers aba, RE: expects patient to become sleepier next 48 hours. Nursing should anticipate need for parenteral nutrition via Nasogastric route. Problem: Activity Intolerance/Impaired Mobility Goal: Mobility/activity is maintained at optimum level for patient Description: Patient's goal is: INTERVENTIONS 1. Assess and monitor patient barriers to mobility and need for assistive/adaptive devices 2. Assess patient's emotional response to limitations 3. Collaborate with interdisciplinary teams and initiate plans and interventions as ordered 4. Encourage independent activity per tolerance 5. Maintain proper body alignment 6. Perform active/passive ROM as tolerated/ordered 7. Coordinate activities to conserve energy 8. Reposition patient 9. Ensure adequate rest/sleep time Outcome: Not Progressing Note: Evaluation of progress towards goal: RUE remains flaccid with + sensation, Rt. Lower extremity has spontaneous flicker of purposeful movements/flexor to nail bed pressure with + sensation intact. Has remained in bed since admission. Problem: Self Care Deficit Goal: Return ADL status to a safe level of function Description: Patient's goal is: INTERVENTIONS 1. Administer medication as ordered 2. Assess ADL deficits and provide assistive devices as needed 3. Obtain PT/OT consults as needed 4. Assist and instruct patient to increase activity and self care as tolerated Outcome: Not Progressing Note: Evaluation of progress towards goal: Poor to no performance of any self ADL's. * PT/OT/PIPE BENDER - Chico Espinal CCC-PIPE BENDER - 04/01/2023 7:55 AM EST Speech Therapy Evaluation Bedside Swallow/Feeding Evaluation Speech & Language Cognitive Evaluation Impressions Oral Dysphagia: Moderate Pharyngeal Dysphagia Suspected: Yes Recommendations Diet Level: Level 6 Soft and Bite-Sized (until video swallow) Liquid Level: No liquids (until video swallow) Medications: In applesauce/puree Referrals: [facility] Discharge Recommendations: (continued ST services) Plan Frequency: 4-5days/week Duration: until discharge Need for skilled Speech Language Pathology Services to address deficits in feeding/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 Video swallow study recommended to determine safety of swallow. Prognosis Services: Skilled PIPE BENDER services to address above deficits Prognosis/Potential: Good Considerations: Age, Cognition Impressions Receptive Language: Moderate-severe Expressive Language: Moderate-severe Cognitive Linguistic: Moderate-severe Recommendations Discharge Recommendations: (continued ST services) Rehab Therapy Type: Individual treatment Plan Frequency: 4-5days/week Duration: until discharge Need for skilled Speech Language Pathology Services to address deficits in speech/language/cognition due to a status decline resulting from CVA. Diagnostic therapy and education were provided. Pt benefited from cueing and repetition. Pt informed on results and recommendations of evaluation. Unable to complete SLUMS and PHQ2. Prognosis Services: Skilled PIPE BENDER services to address the above deficits Prognosis/Potential: Good Considerations: Age, Cognition Assessment Bedside Swallow/Feeding Eval Speech & Language Cognitive Eval Baseline Assessment Additional Testing Results: Chest X-Ray Respiratory Status: Room Air Behavior/Cognition: Lethargic Dentition: Adequate Patient Positioning: Upright in bed Baseline Vocal Quality: Weak Volitional Swallow: Delayed Laryngectomy: No Ability to Control Secretions: Yes Allergies Marked As Reviewed: Complete Oral/Motor Overall Oral/Motor Status: Exceptions to Within Functional Limits Labial ROM: Reduced Labial Strength: Reduced Labial Coordination: Reduced Lingual ROM: Reduced Lingual Strength: Reduced Lingual Coordination: Reduced Vocal Quality: Exceptions to WFL Weak: Moderate Vocal Intensity: Mildly decreased Intelligibility: Intelligibility reduced Intelligibility Rating: Mild Breath Support: Adequate for speech Dentition: Adequate Xerostomia: Yes Hearing: Hard of hearing/hearing concerns Consistencies Assessed: Yes Level 0 Thin Presentation: Straw, Cup Oral: Suspect premature spillage Pharyngeal: Cough- immediate Level 4 Pureed Presentation: Spoon Oral: Suspect premature spillage Pharyngeal: Decreased laryngeal elevation Pain Assessment Pain Assessment: No/denies pain Oral/Motor Overall Oral/Motor Status: Exceptions to Within Functional Limits Labial ROM: Reduced Labial Strength: Reduced Labial Coordination: Reduced Lingual ROM: Reduced Lingual Strength: Reduced Lingual Coordination: Reduced Vocal Quality: Exceptions to WFL Weak: Moderate Vocal Intensity: Mildly decreased Intelligibility: Intelligibility reduced Intelligibility Rating: Mild Breath Support: Adequate for speech Dentition: Adequate Xerostomia: Yes Hearing: Hard of hearing/hearing concerns Auditory Comprehension Overall Auditory Comphension Status: Exceptions to Within Functional Limits Yes/No Questions: Exceptions to WFL Basic Questions: Moderate Complex Questions: Severe Commands: Exceptions to WFL One Step Basic Commands: Moderate Two Step Basic Commands: Moderate Multistep Basic Commands: Severe Complex/Abstract Commands: Severe Paragraph: Severe Expression Overall Expression Status: Exceptions to Within Functional Limits Primary Mode of Expression: Verbal Verbal Expression Overall Verbal Expression Status: Exceptions to Within Functional Limits Initiation: Impairment Naming: Impairment Confrontation: Moderate Convergent: Severe Divergent: Severe Speech Production Overall Speech Production: Exceptions to Within Functional Limits Dysarthria: Present Pragmatics/Social Functioning Overall Pragmatic Status: Exceptions to Within Functional Limits Topic Initiation: Moderate Topic Maintenance: Moderate Fluency Sentence Level: Impaired High Level Language Overall High Level Language Status: Exceptions to Within Functional Limits Attention: Exceptions to WFL Sustained Attention: Severe Memory: Exceptions to WFL Immediate Memory: Moderate Short-term Memory: Severe Problem Solving: Exceptions to WFL Managing Finances: Severe Managing Medications: Severe Numeric Reasoning: Exceptions to WFL Abstract Reasoning: Severe Inductive Reasoning: Severe Task Initiation: Delayed initiation Flexibility of Thought: Reduced flexibility Planning: Reduced planning skills Cognition Overall Cognitive Status: Exceptions to Within Functional Limits Arousal/Alertness: Delayed responses to stimuli Attention Span: Attends with cues to redirect Memory: Decreased short term memory Safety Judgment: Decreased awareness of need for assistance, Decreased awareness of need for safety Awareness of Errors: Decreased awareness of errors Insight of Deficits: Decreased awareness of deficits Problem Solving: Assistance required to identify errors made, Assistance required to generate solutions Pain Assessment Pain Assessment: No/denies pain Plan Diagnosis Code Swallowing: R13.12 Dysphagia, oropharyngeal phase, I69.191 Dysphagia following nontraumatic intracerebral hemorrhage + Intracerebral Hemorrhage: I69.128 Other speech and language deficits following nontraumatic ICH Speech Therapy Care Plan Speech Therapy Care Plan (Active) Template: ST - Dysphagia Problem: Swallowing Dates: Start: 04/01/23 Disciplines: PIPE BENDER Goal: LTG: Patient will tolerate least restrictive diet recommended by PIPE BENDER without signs and symptoms of aspiration 90% of the time Dates: Start: 04/01/23 Expected End: 05/02/23 Disciplines: PIPE BENDER Goal: STG: Patient will complete safety strategies with minimal assistance during PO intake 90% of the time Dates: Start: 04/01/23 Expected End: 05/02/23 Disciplines: PIPE BENDER Goal: STG: Patient will tolerate therapeutic feeding trials of advanced textures with 90% accuracy with minimal cueing Dates: Start: 04/01/23 Expected End: 05/02/23 Disciplines: PIPE BENDER Template: ST - Rehab Speech Problem: Auditory Comprehension Dates: Start: 04/01/23 Disciplines: PIPE BENDER Goal: LTG: Patient will comprehend communication related to basic medical and social needs and utilize compensatory strategies to maintain safety in a functional living environment Dates: Start: 04/01/23 Expected End: 05/02/23 Disciplines: PIPE BENDER Goal: STG: Patient will answer complex yes/no questions with 90% accuracy with minimal cueing Dates: Start: 04/01/23 Expected End: 05/02/23 Disciplines: PIPE BENDER Problem: Cognitive Linguistic Dates: Start: 04/01/23 Disciplines: PIPE BENDER Goal: LTG: Patient will display functional cognitive-linguistic skills to demonstrate appropriate communication and safety within daily activities in a functional living environment Dates: Start: 04/01/23 Expected End: 05/02/23 Disciplines: PIPE BENDER Goal: STG: Patient will recall information discussed during therapy session via retelling/answeringquestions with 90% accuracy with minimal cueing Dates: Start: 04/01/23 Expected End: 05/02/23 Disciplines: PIPE BENDER Problem: High Level Language Dates: Start: 04/01/23 Disciplines: PIPE BENDER Goal: LTG: Patient will demonstrate use of self-awareness, goal setting, planning, initiation, self-monitoring and problem solving during daily activities to improve safety and awareness in a functional living environment Dates: Start: 04/01/23 Expected End: 05/02/23 Disciplines: PIPE BENDER Goal: STG: Patient will demonstrate functional problem solving and safety awareness with 90% accuracy in daily living tasks in order to increase safe interactions with environment and decrease assistance from caregivers Dates: Start: 04/01/23 Expected End: 05/02/23 Disciplines: PIPE BENDER Goal: STG: Patient will complete simple to complex organization, scheduling, planning and reasoningtasks to improve problem solving and safety awareness with 90% accuracy with minimal cueing Dates: Start: 04/01/23 Expected End: 05/02/23 Disciplines: PIPE BENDER Problem: Speech Production Dates: Start: 04/01/23 Disciplines: PIPE BENDER Goal: LTG: Patient will develop functional and intelligible speech and utilize compensatory strategies through the use of adequate labial and lingual function, increased articulatory precision and speech prosody Dates: Start: 04/01/23 Expected End: 05/02/23 Disciplines: PIPE BENDER Goal: STG: Patient will complete rapid alternating verbal sequences (tongue twisters) with improvedarticulatory precision with 90% accuracy with minimal cueing Dates: Start: 04/01/23 Expected End: 05/02/23 Disciplines: PIPE BENDER Problem: Verbal Expression Dates: Start: 04/01/23 Disciplines: PIPE BENDER Goal: LTG: Patient will utilize compensatory strategies to communicate wants and needs effectively to different conversational partners, maintain safety and participate socially in a functional living environment Dates: Start: 04/01/23 Expected End: 05/02/23 Disciplines: PIPE BENDER Goal: STG: Patient will complete simple to complex divergent and convergent naming tasks with 90% accuracy with minimal cueing to improve thought organization Dates: Start: 04/01/23 Expected End: 05/02/23 Disciplines: PIPE BENDER Speech Therapy Care Plan (Resolved) There are no resolved problems. Principal Problem: 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[facility]HCC[facility] N[facility]* Artemio Ray MD - 04/16/2023 5:12 PM EST Images from the original note were not included. 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 See inpatient evaluations. Referral to Physical Therapy Evaluate and treat. See inpatient evaluations. Referral to Social Work Referral to Speech Therapy Evaluate and treat. See inpatient evaluations. Test Results Pending at Discharge Pending Labs Order Current Status Blood Gas, Arterial Collected (04/06/23 1156) Blood Gas, Arterial Collected (04/07/23 0312) Potassium Collected (04/08/23 1300) Sodium Collected (04/08/23 1300) Sodium Collected (04/08/23 1300) DETAILS OF HOSPITAL STAY Presenting Problem/History of Present Illness 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[facility]-H[facility]) [I61.0] Bradycardia [R00.1] Ellen Chan is a 78 y.o. female was transferred from an outside hospital where she presented with right lower extremity weakness, a tele stroke alert was activated, initial NIH was 1, neuroimaging revealed left thalamic ICH with IVH ICH score of 2, with a blood pressure of 155/112. She was started on Cardene infusion for a systolic blood pressure less than 140 and was transferred to [facility] neuro ICU for further management. On arrival, there was decline in her mental status requiring repeat CT scan that showed hematoma expansion. Subsequently neurosurgery was taken on board, however, no surgical intervention was warranted. Neuro critical care was taken on board for medical management. Patient was noted to be mildly thrombocytopenic, with return of platelet count to 114, platelet function test demonstrated drug-induced thrombocytopenia. Patient has since been stable with waxing and waning mental status, intermittently agitated. Repeat CT head remained stable. Stroke risk factors: Hypertension Abdominal aortic aneurism. Hyperlipidemia Hospital Course 04/01: Patient presents an outside hospital with right-sided weakness and a CT head demonstrated a left thalamic intracerebral hemorrhage prompting the patient to be transferred to [place] furthercare. Patient admitted to the neuro ICU. Systolic was between 110 and 160. NPO. Rest of stroke workup ordered. Neurosurgery consulted for EVD. ICU consulted for additional management. Sodium goal of 135-145. Critical care recommending blood pressure less than 140 and using nicardipine as needed. 04/02: Repeat head CT demonstrates slight increase of ICH with stable midline shift. Nutrition consult for tube feeds. Blood pressure goals of 110-140. NG tube placed. EEG ordered. 04/03: Plan to start subcu heparin tomorrow. Continue home amlodipine and Coreg 6.25 twice daily added and placed on metoprolol. Continue to wean the Cardene drip. Leukocytosis with no signs of infection. Plan to watch for now. EEG discontinued. 04/04: Subcu heparin started. Coreg dose increased to 12.5. Patient off Cardene. Therapy [facility]. 04/05: Neurosurgery signed off. Transfer to [facility]. Lisinopril started. Increase free water flushes 250 cc 4 times a day. Chest x-ray to evaluate for aspiration pneumonia. We will attempt to placepatient in chair. 04/06: 1 time dose of Lasix for potential fluid overload. Repeat CT head. Zosyn started for potential aspiration pneumonia. ICU re-consult. Need to consider PEG in the future. Continue to hold on brain MRI due to tenuous respiratory status. CTA to rule out PE which was negative. 04/07: Chest x-ray demonstrates worsening bibasilar opacities increasing the current concern for pneumonia. Continue Zosyn. MRA order removed. Reach out to family regarding PEG of which they are accepting. General surgery consulted and agrees to do the PEG once patient is more medically stable. 04/08: Continue Zosyn and free water flushes. Peg timing to be determined. Critical care starting D 2.5 infusion for hypernatremia. 12: WBC downtrending. Sodium starting to come down. Free water flushes and D2.5 infusion stopped Due to sodium drop. Oncology consulted for thrombocytopenia. Thrombocytopenia workup pending. 04/10: Free water flushes resumed. Need to consider MRA versus CTA moving forward. 04/11: CTA head and neck ordered due to stable respiratory status and normal renal function. Transferto step-down. 04/12: PEG tube placed today. Platelets around baseline and if any further changes contact Oncology. 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 [facility]. 04/13: Discontinued and nutrition consult to adjust tube feeds and free water flushes to better control sodium. 04/14: Placement pending 04/15: Lisinopril increased to better control blood pressure 04/16: Patient seen and examined at bedside. Exam relatively unchanged. Plan for transport to [facility] facility today. Operative Procedures Performed Procedure(s): ESOPHAGOGASTRODUODENOSCOPY INSERTION PEG TUBE Consults: hematology/oncology, general surgery, and Rheumatology and neurosurgery Pertinent Test Results: CT head, CTA head, CTA neck, echocardiogram, CT a chest, A1c, LDL, CBC, CMP, thrombocytopenia workup and limited auto immune workup Physical Exam at Discharge Discharge Condition: stable Pulse: 78 Resp: 21 BP: 101/90 Temp: 36.6 C (97.8 F) Weight: 64.3 kg (141 lb 12.1 oz) MRS: 5 Neurologic Exam 1a Level of consciousness: 0=alert; keenly responsive 1b. LOC questions: 2=Performs neither task correctly 1c. LOC commands: 1=Performs one task correctly 2. Best Gaze: 0=normal 3. Visual: 0=No visual loss 4. Facial Palsy: 0=Normal symmetric movement 5a. Motor left arm: 0=No drift, limb holds 90 (or 45) degrees for full 10 seconds 5b. Motor right arm: 4=No movement 6a. motor left le=No drift, limb holds 90 (or 45) degrees for full 10 seconds 6b Motor right le=No movement 7. Limb Ataxia: 0=Absent 8. Sensory: 0=Normal; no sensory loss 9. Best Language: 2=Severe aphasia; all communication is through fragmentary expression; great needfor inference, questioning, and guessing by the listener 10. Dysarthria: 0=Normal 11. Extinction and Inattention: 2=Profound lori-inattention or lori-inattention to more than one modality. Does not recognize own hand or orients only to one side of space 12. Distal motor function: 0=Normal Total: 15 Medication List START taking these medications Instructions Last Dose Given Next Dose Due carvediloL 25 mg tablet Commonly known as: COREG Take 1 tablet (25 mg total) by mouth in the morning and 1 tablet (25 mg total) before bedtime. lisinopriL 40 mg tablet Commonly known as: PRINIVIL,ZESTRIL Take 1 tablet (40 mg total) by mouth in the morning and 1 tablet (40 mg total) before bedtime. CHANGE how you take these medications Instructions Last Dose Given Next Dose Due amLODIPine 10 mg tablet Commonly known as: NORVASC Start taking on: April 17, 2023 What changed: medication strength how much to take Take 1 tablet (10 mg total) by mouth in the morning. CONTINUE taking these medications Instructions Last Dose Given Next Dose Due hydroCHLOROthiazide 25 mg tablet Commonly known as: HYDRODIURIL Take 1 tablet (25 mg total) by mouth daily. metoprolol tartrate 25 mg tablet Commonly known as: LOPRESSOR Take 1 tablet (25 mg total) by mouth in the morning and 1 tablet (25 mg total) before bedtime. pantoprazole 40 mg EC tablet Commonly known as: PROTONIX Take 1 tablet (40 mg total) by mouth every morning before breakfast. * potassium chloride 10 MEQ CR tablet Commonly known as: K-TAB,KLOR-CON Take 2 tablets (20 mEq total) by mouth in the morning and 2 tablets (20 mEq total) before bedtime. * This list has 1 medication(s) that are the same as other medications prescribed for you. Read thedirections carefully, and ask your doctor or other care provider to review them with you. STOP taking these medications ASPIRIN LOW DOSE ORAL DULCOLAX STOOL SOFTENER (DSS) 100 mg capsule Generic drug: docusate sodium ibuprofen 800 mg tablet Commonly known as: MOTRIN niacin (inositol niacinate) 500 mg tablet ASK your doctor about these medications Instructions Last Dose Given Next Dose Due * KLOR-CON 20 mEq packet Generic drug: potassium chloride Klor-Con 20 mEq oral packet Take 1 packet 4 times a day by oral route. * This list has 1 medication(s) that are the same as other medications prescribed for you. Read thedirections carefully, and ask your doctor or other care provider to review them with you. Where to Get Your Medications These medications were sent to [facility]/pharmacy #[id number] [facility], [place] - [address] [facility] AT [address] [address] amLODIPine 10 mg tablet carvediloL 25 mg tablet lisinopriL 40 mg tablet Artemio Ray MD Neurology PGY-3 [facility] 5:12 PM 04/16/23 Associated attestation - Willard Krueger MD - 04/16/2023 10:00 PM EST I saw the patient. I participated and was physically present during the felix portions of the service. I was directly involved in the management and treatment plan of the patient. I have reviewed the resident s discharge note. [facility] Discharge instructions* Discharge Instructions* Artemio Ray MD - 04/16/2023 3:25 PM EST Please follow up with PCP within 1 week. Please follow up with neurology in 6 weeks. Please follow up with general surgery in 1-2 weeks. Please follow up with oncology in 1-2 weeks. Please follow up with neurosurgery in 1-2 weeks. The following medications have been added and require that you follow-up with your primary care physician regarding the changes: coreg and lisinopril for blood pressure control. The following medications have been changed and require that you follow-up with your primary care physician regarding the changes: Norvasc has been increased from 5mg to 10mg. The following medications have been discontinued and require that you follow-up with your primary care physician regarding the changes: aspirin and advil due to a brain bleed, and niacin and duloclaxas you have indicated that you are no longer taking them. Please take medications as prescribed. Please present to the hospital if you have any chest pain, shortness of breath, fever, chills, headache, palpitations, change in bowel or urinary habits, nausea/vomiting, abdominal pain, swelling in hands or feet, or if you have any other complaints. Appointments with neurology will be scheduled at [facility], [address] [place] [id number], . Patient Education: Patient was counseled in seizure first aid. In most circumstances, seizures typically last less than 2-3 minutes, and do not require any intervention, besides keeping the patient safe from injury. Nothing should be placed in the patient's mouth. During the seizure, the patient should be rolled ontotheir side in hopes of preventing aspiration should vomiting occur. Do not place anything in the patient's mouth. Should the seizure persist greater than 5 minutes, intervention will likely be neededto get the seizure to stop. At the 5 minute kristin, EMS should be called. Also, consider calling EMS for multiple seizures, injuries or if the patient is not improving towards baseline after a seizure. Discussed state regulations regarding driving restrictions and the need to be free of seizures (that would impair the ability to operate a vehicle safely) for at least six months before returning to driving. The patient also needs to avoid operating any heavy machinery or being on potentially life threatening situations alone such as swimming, climbing a ladder, or being on a roof. The patient isaware that it is their responsibility to notify the DMV and to not drive until approved. * Attachments The following attachments cannot be sent through Care Everywhere. * Use of Medical Restraints (German) documented in this encounterMayo [facility] HospitaliVengo [id number] History of Present illness Narrative* CLAIR Rosario - 04/16/2023 2:44 PM EST NUTRITION ADULT FOLLOW UP NUTRITION ASSESSMENT: Patient History: Brief Clinical Summary: Patient initially presented to OSH with right sided weakness. 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 Pt remains NPO, not ready for oral diet per PIPE BENDER. PEG placed. Noted DC planned for possibly today. Biochemical Data, Medical Tests, and Procedures: 04/01 CT brain: Enlarging left basal ganglia intraparenchymal hemorrhage with worsening intraventricular extension. 04/01 Soft and Bite Sized and no liquids. However, per MD hold off on oral diet d/t mentation. VFSSon hold. 04/04- remains NPO 04/08- D2.5 stopped due to decrease in Na levels, free water continues 04/11- PEG Labs: Results from last 3 days Lab Units 04/16/2372304/15/23 0702 04/14/23 0610 SODIUM mmol/L 141 140 145 POTASSIUM mmol/L 4.2 3.8 3.5 CHLORIDE mmol/L 107 107 112* CO2 mmol/L 24 24 23 BUN mg/dL 29* 27 24 CREATININE mg/dL 0.47 0.48 0.50 CALCIUM mg/dL 8.6 8.5 8.5 ALBUMIN g/dL 2.8* 2.8* 2.9* ALK PHOS U/L 82 87 85 ALT U/L 75* 89* 76* AST U/L 29 44* 35 Results from last 7 days Lab Units 04/16/23 0724 04/15/23 2332 04/15/23 1806 04/15/23 1145 04/15/23 0702 04/15/23 0557 04/14/23 2348 BEDSIDE GLUCOSE mg/dL -- 154* 128* 106* -- 143* 172* GLUCOSE mg/dL 152* -- -- -- 136* -- -- Results from last 3 days Lab Units 04/16/2372304/15/23 0702 04/14/23 0610 WBC X10E9/L 8.5 9.0 9.5 HEMOGLOBIN g/dL 12.3 11.6* 11.7 HEMATOCRIT % 37.0 34.4* 35.0 PLATELETS X10E9/L 112* 124* 94* MCV fL 85 86 86 No data from last 3 days. No data from last 3 days. Lab Results Component Value Date HGBA1C 5.5 04/01/2023 Lab Results Component Value Date IRON 45 (L) 04/09/2023 TIBC 217 (L) 04/09/2023 FERRITIN 618 (H) 04/09/2023 Lab Results Component Value Date IRONSAT 21 04/09/2023 Lab Results Component Value Date CHOL 243 (H) 04/01/2023 Lab Results Component Value Date CHDL 2.6 04/01/2023 Lab Results Component Value Date HDL 93 04/01/2023 Lab Results Component Value Date LDLCALC 130 (H) 04/01/2023 Lab Results Component Value Date TRIG 99 04/01/2023 Lab Results Component Value Date VERYLOWLIP 20 04/01/2023 Lab Results Component Value Date [id number] 416 04/09/2023 Lab Results Component Value Date FOLATE 12.0 04/09/2023 No results found for: VITD25 Na improved. Dietary Orders (From admission, onward) Start Ordered 04/14/23 0800 Free water 4 times daily Question Answer Comment Amount in mL 250 Tube Type: Gastric feeding tube or PEG 04/14/23 0758 04/14/23 0757 Tube feeding No tray-Continuous Tube feeding No Tray-Continuous; Gastric feeding tubeor PEG; Standard; 65; 65ml/hr x 20 hrs (hold for Konvomep dosing- 3 hr before, 1 hr afater) Continuous Comments: Formula: Osmolite 1.2 References: Formulary Card Question Answer Comment Diet Type: Tube feeding No Tray-Continuous Tube Type: Gastric feeding tube or PEG Tube Feeding Formula: Standard Tube Feeding Start Rate (mL/hour): 65 Goal Rate (mL/hour): 65ml/hr x 20 hrs hold for Konvomep dosing- 3 hr before, 1 hr afater 04/14/23 0758 Comparative Standards: Estimated Energy Needs: 9830-2789 kcals daily. Method and weight used: 25-30 kcal/kg IBW (54.5kg) Estimated Protein Needs: 65-110 grams daily. Method and weight used: 1.2-2g protein/kg IBW Estimated Fluid Needs: 0465-0144 ml daily. Method weight used: 1ml/kcal Comments: General needs NUTRITION DIAGNOSIS: Intake Diagnosis: Inadequate protein-energy intake (NI 5.3) TF meeting needs NUTRITION INTERVENTIONS: Enteral Nutrition Continue Osmolite 1.2 at goal rate of 65ml/hr x 20 hrs ( hold for konvomep) This provides 1300ml formula, 1560kcals, 71gm protein, 1066ml free water, and 100% RDI's for vitamins/minerals. 2. continueree water flushes to 240ml 4x/day for total of 2026ml/day including TF formula free water. GOAL(S): Meet estimated calorie and protein needs. NUTRITION MONITORING AND EVALUATION: TF tolerance, weight trend, labs, POC and overall status. Balbina Neil R.D,L.DCara Clinical dietitian Patient Touch extension:[phone] Direct Dial phone number: [phone] 04/16/23 2:47 PM * Artemio Ray MD - 04/15/2023 10:27 AM EST NEUROINTERVENTIONAL DAILY PROGRESS NOTE SUBJECTIVE: Ellen Chan is a 78 y.o. female was transferred from an outside hospital where she presented with right lower extremity weakness, a tele stroke alert was activated, initial NIH was 1, neuroimaging revealed left thalamic ICH with IVH ICH score of 2, with a blood pressure of 155/112. She was started on Cardene infusion for a systolic blood pressure less than 140 and was transferred to [facility] neuro ICU for further management. On arrival, there was decline in her mental status requiring repeat CT scan that showed hematoma expansion. Subsequently neurosurgery was taken on board, however, no surgical intervention was warranted. Neuro critical care was taken on board for medical management. Patient was noted to be mildly thrombocytopenic, with return of platelet count to 114, platelet function test demonstrated drug-induced thrombocytopenia. Patient has since been stable with waxing and waning mental status, intermittently agitated. Repeat CT head remained stable. Stroke risk factors: Hypertension Abdominal aortic aneurism. Hyperlipidemia Interval history: Patient was seen and examined at the bedside. No acute events overnight. Afebrile and hemodynamically stable. Exam largely unchanged. Patient not following commands but appears to be resting comfortably in bed. CURRENT MEDICATIONS: dextrose 5 % in water, 100 mL/hr sodium chloride 0.9 %, 10 mL/hr sodium chloride 0.9 %, 10 mL/hr sodium chloride 0.9 %, 10 mL/hr, Last Rate: Stopped (04/02/23 08) amLODIPine, 10 mg, nasogastric, Daily bisacodyL, 10 mg, rectal, Q3 Days carvediloL, 25 mg, nasogastric, BID fondaparinux (ARIXTRA) injection, 2.5 mg, subcutaneous, Daily lisinopriL, 40 mg, nasogastric, BID magnesium hydroxide, 30 mL, nasogastric, Q3 Days omeprazole-sodium bicarbonate, 40 mg, nasogastric, Daily sennosides-docusate sodium, 2 tablet, nasogastric, BID PHYSICAL EXAM: Vital Signs: Blood pressure 150/89, pulse 77, temperature 37.1 C (98.8 F), temperature source Axillary, resp. rate 22, height 162.6 cm (5' 4 ), weight 64.3 kg (141 lb 12.1 oz), SpO2 90%. Respiratory Source: O2 Device: None (Room air) Physical Exam Neurologic Exam 1a Level of consciousness: 0=alert; keenly responsive 1b. LOC questions: 2=Performs neither task correctly 1c. LOC commands: 1=Performs one task correctly 2. Best Gaze: 0=normal 3. Visual: 0=No visual loss 4. Facial Palsy: 0=Normal symmetric movement 5a. Motor left arm: 0=No drift, limb holds 90 (or 45) degrees for full 10 seconds 5b. Motor right arm: 4=No movement 6a. motor left le=No drift, limb holds 90 (or 45) degrees for full 10 seconds 6b Motor right le=No movement 7. Limb Ataxia: 0=Absent 8. Sensory: 0=Normal; no sensory loss 9. Best Language: 2=Severe aphasia; all communication is through fragmentary expression; great needfor inference, questioning, and guessing by the listener 10. Dysarthria: 0=Normal 11. Extinction and Inattention: 2=Profound lori-inattention or lori-inattention to more than one modality. Does not recognize own hand or orients only to one side of space 12. Distal motor function: 0=Normal Total: 15 Pre morbid Modified Brittney score: 0 Lab Review Lab Results Component Value Date GLU 136 (H) 04/15/2023 CALCIUM 8.5 04/15/2023 K 3.8 04/15/2023 CO2 24 04/15/2023 BUN 27 04/15/2023 CREATININE 0.48 04/15/2023 Lab Results Component Value Date WBC 9.0 04/15/2023 HGB 11.6 (L) 04/15/2023 HCT 34.4 (L) 04/15/2023 MCV 86 04/15/2023 PLT 124 (L) 04/15/2023 Lab Results Component Value Date HGBA1C 5.5 04/01/2023 Lab Results Component Value Date CHOL 243 (H) 04/01/2023 Lab Results Component Value Date LDLCALC 130 (H) 04/01/2023 Lab Results Component Value Date TRIG 99 04/01/2023 Imaging: No results found. 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 Patient was accepted as a transfer from an outside hospital for right-sided weakness. Initial NIH was 1 (right lower extremity weakness), not on blood thinners. On arrival, her neuro exam worsened deeming a repeat head CT with hematoma expansion. Neurosurgery was taken on board, deferred plans for neurosurgical intervention. Neuro critical care remains on board for fluctuating mental status and medical management. Concern for aspiration pneumonia, started on Abx and CC following Hypernatremia Thrombocytopenia, oncology following Dysphagia s/p PEG 04/11/23 Stroke risk factors Hypertension Abdominal aortic aneurysm. Hyperlipidemia. Stroke work up: MRI brain with and without contrast: Pending Echocardiogram: EF 60-65% mildly dilated aortic aorta, trace mitral and tricuspid regurgitation. Hemoglobin A1c: 5.5 LDL: 130 Routine EEG: Left posterior parietotemporal slowing. Plan: Oncology for thrombocytopenia, follow up outpatient SBP< 140, use p.r.n. antihypertensive medications. Increased lisinopril to better control BP Plan to start statins in the outpatient setting. Nutrition on for TF and free H20 flushes to better control sodium Continue free water flushes -VTE prophylaxis with subQ heparin. -GI prophylaxis using omeprazole, mechanical VTE prophylaxis, p.r.n. pain medications. Dispo: referrals sent to SNF Patient was discussed with Dr. Burgess Artemio Ray MD Neurology PGY-3 [facility] 10:27 AM 04/15/23 This patient is being followed by the Neurology Resident service. Contact attending directly during these hours: Saturday to 7:30-8:30 A.M. to Saturday 12-1:00 p.m. Primary Neurology service: [phone] Consult neurology service: [phone] Resident Stroke Service: [phone] If the patient belongs to the [facility] service please contact the [facility] directly. Associated attestation - Willard Krueger MD - 04/16/2023 8:27 AM EST I saw the patient. I participated and was physically present during the felix portions of the service. I was directly involved in the management and treatment plan of the patient. I have reviewed the resident s note. * Artemio Ray MD - 04/14/2023 2:38 PM EST NEUROINTERVENTIONAL DAILY PROGRESS NOTE SUBJECTIVE: Ellen Chan is a 78 y.o. female was transferred from an outside hospital where she presented with right lower extremity weakness, a tele stroke alert was activated, initial NIH was 1, neuroimaging revealed left thalamic ICH with IVH ICH score of 2, with a blood pressure of 155/112. She was started on Cardene infusion for a systolic blood pressure less than 140 and was transferred to [facility] neuro ICU for further management. On arrival, there was decline in her mental status requiring repeat CT scan that showed hematoma expansion. Subsequently neurosurgery was taken on board, however, no surgical intervention was warranted. Neuro critical care was taken on board for medical management. Patient was noted to be mildly thrombocytopenic, with return of platelet count to 114, platelet function test demonstrated drug-induced thrombocytopenia. Patient has since been stable with waxing and waning mental status, intermittently agitated. Repeat CT head remained stable. Stroke risk factors: Hypertension Abdominal aortic aneurism. Hyperlipidemia Interval history: Patient was seen and examined at the bedside. No acute events overnight. Afebrile and hemodynamically stable. Exam largely unchanged. CURRENT MEDICATIONS: dextrose 5 % in water, 100 mL/hr sodium chloride 0.9 %, 10 mL/hr sodium chloride 0.9 %, 10 mL/hr sodium chloride 0.9 %, 10 mL/hr, Last Rate: Stopped (04/02/23 08) amLODIPine, 10 mg, nasogastric, Daily bisacodyL, 10 mg, rectal, Q3 Days carvediloL, 25 mg, nasogastric, BID fondaparinux (ARIXTRA) injection, 2.5 mg, subcutaneous, Daily lisinopriL, 40 mg, nasogastric, Daily magnesium hydroxide, 30 mL, nasogastric, Q3 Days omeprazole-sodium bicarbonate, 40 mg, nasogastric, Daily sennosides-docusate sodium, 2 tablet, nasogastric, BID PHYSICAL EXAM: Vital Signs: Blood pressure 132/85, pulse 73, temperature 36.4 C (97.6 F), temperature source Axillary, resp. rate 13, height 162.6 cm (5' 4 ), weight 64.3 kg (141 lb 12.1 oz), SpO2 97%. Respiratory Source: O2 Device: Nasal cannula Physical Exam Neurologic Exam 1a Level of consciousness: 0=alert; keenly responsive 1b. LOC questions: 2=Performs neither task correctly 1c. LOC commands: 1=Performs one task correctly 2. Best Gaze: 0=normal 3. Visual: 0=No visual loss 4. Facial Palsy: 0=Normal symmetric movement 5a. Motor left arm: 0=No drift, limb holds 90 (or 45) degrees for full 10 seconds 5b. Motor right arm: 4=No movement 6a. motor left le=No drift, limb holds 90 (or 45) degrees for full 10 seconds 6b Motor right le=No movement 7. Limb Ataxia: 0=Absent 8. Sensory: 0=Normal; no sensory loss 9. Best Language: 2=Severe aphasia; all communication is through fragmentary expression; great needfor inference, questioning, and guessing by the listener 10. Dysarthria: 0=Normal 11. Extinction and Inattention: 2=Profound lori-inattention or lori-inattention to more than one modality. Does not recognize own hand or orients only to one side of space 12. Distal motor function: 0=Normal Total: 15 Pre morbid Modified Houston score: 0 Lab Review Lab Results Component Value Date GLU 111 (H) 04/14/2023 CALCIUM 8.5 04/14/2023 K 3.5 04/14/2023 CO2 23 04/14/2023 BUN 24 04/14/2023 CREATININE 0.50 04/14/2023 Lab Results Component Value Date WBC 9.5 04/14/2023 HGB 11.7 04/14/2023 HCT 35.0 04/14/2023 MCV 86 04/14/2023 PLT 94 (L) 04/14/2023 Lab Results Component Value Date HGBA1C 5.5 04/01/2023 Lab Results Component Value Date CHOL 243 (H) 04/01/2023 Lab Results Component Value Date LDLCALC 130 (H) 04/01/2023 Lab Results Component Value Date TRIG 99 04/01/2023 Imaging: No results found. 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 Patient was accepted as a transfer from an outside hospital for right-sided weakness. Initial NIH was 1 (right lower extremity weakness), not on blood thinners. On arrival, her neuro exam worsened deeming a repeat head CT with hematoma expansion. Neurosurgery was taken on board, deferred plans for neurosurgical intervention. Neuro critical care remains on board for fluctuating mental status and medical management. Concern for aspiration pneumonia, started on Abx and CC following Hypernatremia Thrombocytopenia, oncology following Dysphagia s/p PEG 04/11/23 Stroke risk factors Hypertension Abdominal aortic aneurysm. Hyperlipidemia. Stroke work up: MRI brain with and without contrast: Pending Echocardiogram: EF 60-65% mildly dilated aortic aorta, trace mitral and tricuspid regurgitation. Hemoglobin A1c: 5.5 LDL: 130 Routine EEG: Left posterior parietotemporal slowing. Plan: Oncology for thrombocytopenia, follow up outpatient SBP< 140, use p.r.n. antihypertensive medications. Plan to start statins in the outpatient setting. Nutrition on for TF and free H20 flushes to better control sodium Continue free water flushes -VTE prophylaxis with subQ heparin. -GI prophylaxis using omeprazole, mechanical VTE prophylaxis, p.r.n. pain medications. Dispo: referrals sent to SNF Patient was discussed with Dr. Burgess Artemio Ray MD Neurology PGY-3 [facility] 2:38 PM 04/14/23 This patient is being followed by the Neurology Resident service. Contact attending directly during these hours: Saturday to 7:30-8:30 A.M. to Saturday 12-1:00 p.m. Primary Neurology service: [phone] Consult neurology service: [phone] Resident Stroke Service: [phone] If the patient belongs to the [facility] service please contact the [facility] directly. Associated attestation - Dmitriy Couch MD - 04/14/2023 7:19 PM EST I saw the patient on the same day as the resident. I personally obtained the history, reviewed the data, examined the patient, and formulated the impression and plan. I personally reviewed the patient's images and made my own independent findings. I reviewed the residents note including the historyof present illness, family history, social history, review of systems, vital signs, physical examination, laboratory studies, imaging, impression, plan and agree with the documented findings and planof care. I spent more than 35 minutes in evaluation of this patient including more than 50% in counseling and coordination of care. The patient is being evaluated for stroke and is at risk for neurological deterioration. 78 year old with a history of htn p/w constellation of neurological symptoms Ct with eft subcortical bleed large, personally reviewed H/c c/b pneumonia S/p PEG Exam: lethargic, right weakness, trace left squeeze. Stable today. awake and talking/interactive. Hematology/rheumatology evaluated thrombocytopenia - workup unrevealing Improved WBC and sodium Impression: hypertensive ich Control bp Dvt prophylaxis Disposition planning Dmitriy Couch MD PhD Vascular Neurology Neurointerventional Surgery * Amita Alonso RN - 04/13/2023 3:05 PM EST Images from the original note were not included. FOLLOW-UP: Post-Intensive Care Rounding Note Patient: Ellen Chan : 1945 Age: 78 y.o. Length of Stay: 12 days Admission Diagnosis: 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CMS-HCC) [I61.0] Bradycardia [R00.1] Reviewing patient due to her recent transfer out from Intensive Care. Recorded vital signs are stable and the patient is not noted to be in any apparent distress. Telemetry and monitoring noted. Staff may call with any issues or concerns regarding her clinical presentation or stability. Thank you, Amita Alonso RN Rapid Response: [facility] * Artemio Ray MD - 04/13/2023 1:31 PM EST NEUROINTERVENTIONAL DAILY PROGRESS NOTE SUBJECTIVE: Ellen Chan is a 78 y.o. female was transferred from an outside hospital where she presented with right lower extremity weakness, a tele stroke alert was activated, initial NIH was 1, neuroimaging revealed left thalamic ICH with IVH ICH score of 2, with a blood pressure of 155/112. She was started on Cardene infusion for a systolic blood pressure less than 140 and was transferred to [facility] neuro ICU for further management. On arrival, there was decline in her mental status requiring repeat CT scan that showed hematoma expansion. Subsequently neurosurgery was taken on board, however, no surgical intervention was warranted. Neuro critical care was taken on board for medical management. Patient was noted to be mildly thrombocytopenic, with return of platelet count to 114, platelet function test demonstrated drug-induced thrombocytopenia. Patient has since been stable with waxing and waning mental status, intermittently agitated. Repeat CT head remained stable. Stroke risk factors: Hypertension Abdominal aortic aneurism. Hyperlipidemia Interval history: Patient was seen and examined at the bedside. No acute events overnight. Afebrile and hemodynamically stable. Exam largely unchanged. CURRENT MEDICATIONS: dextrose 5 % in water, 100 mL/hr sodium chloride 0.9 %, 10 mL/hr sodium chloride 0.9 %, 10 mL/hr sodium chloride 0.9 %, 10 mL/hr, Last Rate: Stopped (04/02/23 0805) amLODIPine, 10 mg, nasogastric, Daily bisacodyL, 10 mg, rectal, Q3 Days carvediloL, 25 mg, nasogastric, BID [START ON 04/14/2023] fondaparinux (ARIXTRA) injection, 2.5 mg, subcutaneous, Daily lisinopriL, 20 mg, nasogastric, Daily magnesium hydroxide, 30 mL, nasogastric, Q3 Days omeprazole-sodium bicarbonate, 40 mg, nasogastric, Daily sennosides-docusate sodium, 2 tablet, nasogastric, BID PHYSICAL EXAM: Vital Signs: Blood pressure (!) 169/100, pulse 79, temperature 36.4 C (97.5 F), temperature source Axillary, resp. rate 22, height 162.6 cm (5' 4 ), weight 63.1 kg (139 lb 3.2 oz), SpO2 90%. Respiratory Source: O2 Device: None (Room air) Physical Exam Neurologic Exam 1a Level of consciousness: 0=alert; keenly responsive 1b. LOC questions: 2=Performs neither task correctly 1c. LOC commands: 1=Performs one task correctly 2. Best Gaze: 0=normal 3. Visual: 0=No visual loss 4. Facial Palsy: 0=Normal symmetric movement 5a. Motor left arm: 0=No drift, limb holds 90 (or 45) degrees for full 10 seconds 5b. Motor right arm: 4=No movement 6a. motor left le=No drift, limb holds 90 (or 45) degrees for full 10 seconds 6b Motor right le=No movement 7. Limb Ataxia: 0=Absent 8. Sensory: 0=Normal; no sensory loss 9. Best Language: 2=Severe aphasia; all communication is through fragmentary expression; great needfor inference, questioning, and guessing by the listener 10. Dysarthria: 0=Normal 11. Extinction and Inattention: 2=Profound lori-inattention or lori-inattention to more than one modality. Does not recognize own hand or orients only to one side of space 12. Distal motor function: 0=Normal Total: 15 Pre morbid Modified Houston score: 0 Lab Review Lab Results Component Value Date GLU 133 (H) 04/13/2023 CALCIUM 8.5 04/13/2023 K 3.7 04/13/2023 CO2 24 04/13/2023 BUN 27 04/13/2023 CREATININE 0.58 04/13/2023 Lab Results Component Value Date WBC 10.7 04/13/2023 HGB 11.5 (L) 04/13/2023 HCT 34.4 (L) 04/13/2023 MCV 86 04/13/2023 PLT 91 (L) 04/13/2023 Lab Results Component Value Date HGBA1C 5.5 04/01/2023 Lab Results Component Value Date CHOL 243 (H) 04/01/2023 Lab Results Component Value Date LDLCALC 130 (H) 04/01/2023 Lab Results Component Value Date TRIG 99 04/01/2023 Imaging: No results found. 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 Patient was accepted as a transfer from an outside hospital for right-sided weakness. Initial NIH was 1 (right lower extremity weakness), not on blood thinners. On arrival, her neuro exam worsened deeming a repeat head CT with hematoma expansion. Neurosurgery was taken on board, deferred plans for neurosurgical intervention. Neuro critical care remains on board for fluctuating mental status and medical management. Concern for aspiration pneumonia, started on Abx and CC following Hypernatremia Thrombocytopenia, oncology following Dysphagia s/p PEG 04/11/23 Stroke risk factors Hypertension Abdominal aortic aneurysm. Hyperlipidemia. Stroke work up: MRI brain with and without contrast: Pending Echocardiogram: EF 60-65% mildly dilated aortic aorta, trace mitral and tricuspid regurgitation. Hemoglobin A1c: 5.5 LDL: 130 Routine EEG: Left posterior parietotemporal slowing. Plan: Oncology for thrombocytopenia, follow up outpatient Zosyn for pneumonia and HFNC per critical care SBP< 140, use p.r.n. antihypertensive medications. Plan to start statins in the outpatient setting. Discontinue LR Consult nutrition to adjust TF and free H20 flushes to better control sodium Continue free water flushes -VTE prophylaxis with subQ heparin. -GI prophylaxis using omeprazole, mechanical VTE prophylaxis, p.r.n. pain medications. Dispo: referrals sent to SNF Patient was discussed with Dr. Burgess Artemio Ray MD Neurology PGY-3 [facility] 1:32 PM 04/13/23 This patient is being followed by the Neurology Resident service. Contact attending directly during these hours: Saturday to 7:30-8:30 A.M. to Saturday 12-1:00 p.m. Primary Neurology service: [phone] Consult neurology service: [phone] Resident Stroke Service: [phone] If the patient belongs to the [facility] service please contact the [facility] directly. Associated attestation - Dmitriy Couch MD - 04/13/2023 11:58 PM EST I saw the patient on the same day as the resident. I personally obtained the history, reviewed the data, examined the patient, and formulated the impression and plan. I personally reviewed the patient's images and made my own independent findings. I reviewed the residents note including the historyof present illness, family history, social history, review of systems, vital signs, physical examina tion, laboratory studies, imaging, impression, plan and agree with the documented findings and planof care. I spent more than 35 minutes in evaluation of this patient including more than 50% in counseling and coordination of care. The patient is being evaluated for stroke and is at risk for neurological deterioration. 78 year old with a history of htn p/w constellation of neurological symptoms Ct with left subcortical bleed large, personally reviewed H/c c/b pneumonia Aspiration pneumonia Ongoing assessment for intubation Dysphagia, plan for peg when medically stable Exam: lethargic, right weakness, trace left squeeze. Stable today. awake and talking/interactive. Hematology/rheumatology evaluating thrombocytopenia - workup unrevealing WBC nml 8.9 Na 151 (free water flushes) Chronic thrombocytopenia per hematology Off Hiflow - breathing better Cr 0.88 Impression: hypertensive ich CTA head and neck Control bp ATB for pneumonia Dvt prophylaxis Disposition planning Dmitriy Couch MD PhD Vascular Neurology Neurointerventional Surgery * Adela Lyons PharmD - 04/13/2023 12:59 PM EST [facility] Department of Pharmacy Pharmacist to Physician Communication The dose of fondaparinux has been changed to 2.5 mg every 24 hours per the [facility] approved renal dosing guidelines, based on an estimated creatinine clearance is 66.8 mL/min (by C-G formula based on SCrof 0.58 mg/dL). Thank you, ADELA LYONS PharmD * Dulce Dickinson RN - 04/12/2023 9:40 PM EST Images from the original note were not included. FOLLOW-UP: Post-Intensive Care Rounding Note Patient: Ellen Chan : 1945 Age: 78 y.o. Length of Stay: 11 days Admission Diagnosis: 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CMS-HCC) [I61.0] Bradycardia [R00.1] Reviewing patient due to her recent transfer out from Intensive Care. Recorded vital signs are stable and the patient is not noted to be in any apparent distress. Telemetry and monitoring noted. Staff may call with any issues or concerns regarding her clinical presentation or stability. Thank you, Dulce Dickinson RN Rapid Response: [facility] * Artemio Ray MD - 04/12/2023 5:05 PM EST NEUROINTERVENTIONAL DAILY PROGRESS NOTE SUBJECTIVE: Ellen Chan is a 78 y.o. female was transferred from an outside hospital where she presented with right lower extremity weakness, a tele stroke alert was activated, initial NIH was 1, neuroimaging revealed left thalamic ICH with IVH ICH score of 2, with a blood pressure of 155/112. She was started on Cardene infusion for a systolic blood pressure less than 140 and was transferred to [facility] neuro ICU for further management. On arrival, there was decline in her mental status requiring repeat CT scan that showed hematoma expansion. Subsequently neurosurgery was taken on board, however, no surgical intervention was warranted. Neuro critical care was taken on board for medical management. Patient was noted to be mildly thrombocytopenic, with return of platelet count to 114, platelet function test demonstrated drug-induced thrombocytopenia. Patient has since been stable with waxing and waning mental status, intermittently agitated. Repeat CT head remained stable. Stroke risk factors: Hypertension Abdominal aortic aneurism. Hyperlipidemia Interval history: Patient was seen and examined at the bedside. No acute events overnight. Afebrile and hemodynamically stable. Exam largely unchanged. CURRENT MEDICATIONS: dextrose 5 % in water, 100 mL/hr sodium chloride 0.9 %, 10 mL/hr sodium chloride 0.9 %, 10 mL/hr sodium chloride 0.9 %, 10 mL/hr, Last Rate: Stopped (04/02/23804) amLODIPine, 10 mg, nasogastric, Daily bisacodyL, 10 mg, rectal, Q3 Days carvediloL, 12.5 mg, nasogastric, BID fondaparinux (ARIXTRA) injection, 1.5 mg, subcutaneous, Daily lisinopriL, 20 mg, nasogastric, Daily magnesium hydroxide, 30 mL, nasogastric, Q3 Days omeprazole-sodium bicarbonate, 40 mg, nasogastric, Daily [COMPLETED] piperacillin-tazobactam (ZOSYN) IV, 4.5 g, intravenous, Once FOLLOWED BY piperacillin-tazobactam (ZOSYN) IV, 3.375 g, intravenous, Q8H sennosides-docusate sodium, 2 tablet, nasogastric, BID PHYSICAL EXAM: Vital Signs: Blood pressure 133/75, pulse 76, temperature 36.6 C (97.9 F), temperature source Oral,resp. rate 22, height 162.6 cm (5' 4 ), weight 63.2 kg (139 lb 5.3 oz), SpO2 94%. Respiratory Source: O2 Device: Nasal cannula Physical Exam Neurologic Exam 1a Level of consciousness: 0=alert; keenly responsive 1b. LOC questions: 2=Performs neither task correctly 1c. LOC commands: 1=Performs one task correctly 2. Best Gaze: 0=normal 3. Visual: 0=No visual loss 4. Facial Palsy: 0=Normal symmetric movement 5a. Motor left arm: 0=No drift, limb holds 90 (or 45) degrees for full 10 seconds 5b. Motor right arm: 4=No movement 6a. motor left le=No drift, limb holds 90 (or 45) degrees for full 10 seconds 6b Motor right le=No movement 7. Limb Ataxia: 0=Absent 8. Sensory: 0=Normal; no sensory loss 9. Best Language: 2=Severe aphasia; all communication is through fragmentary expression; great needfor inference, questioning, and guessing by the listener 10. Dysarthria: 0=Normal 11. Extinction and Inattention: 2=Profound lori-inattention or lori-inattention to more than one modality. Does not recognize own hand or orients only to one side of space 12. Distal motor function: 0=Normal Total: 15 Pre morbid Modified Houston score: 0 Lab Review Lab Results Component Value Date GLU 130 (H) 04/12/2023 GLU 121 (H) 04/12/2023 CALCIUM 8.6 04/12/2023 K 3.7 04/12/2023 CO2 27 04/12/2023 BUN 32 (H) 04/12/2023 CREATININE 0.71 04/12/2023 Lab Results Component Value Date WBC 12.9 (H) 04/12/2023 HGB 10.8 (L) 04/12/2023 HCT 32.7 (L) 04/12/2023 MCV 87 04/12/2023 PLT 92 (L) 04/12/2023 Lab Results Component Value Date HGBA1C 5.5 04/01/2023 Lab Results Component Value Date CHOL 243 (H) 04/01/2023 Lab Results Component Value Date LDLCALC 130 (H) 04/01/2023 Lab Results Component Value Date TRIG 99 04/01/2023 Imaging: CT angiogram head Result Date: 04/12/2023 CT CTA HEAD HISTORY: Follow-up stroke, right lower extremity weakness COMPARISON: CT brain 04/09/2023TECHNIQUE: CT angiogram performed following administration of 100 mL Omnipaque 350 intravenous contrast. Coronal, sagittal, and 3-D volume rendered maximum intensity projection images generated and re viewed under concurrent physician supervision. Automated exposure control utilized. All CT scans atthis facility use dose modulation, iterative reconstruction, and/or weight based dosing when appropriate to reduce radiation dose to as low as reasonably achievable. FINDINGS: Similar left thalamic he morrhage, 4.6 cm greatest dimension with intraventricular extension. Similar 4 mm rightward midlineshift. Calcifications along the intracranial segments of the internal carotid arteries, without significant stenosis. Anterior and middle cerebral arteries are widely patent. Diminutive right vertebral artery, likely congenital. Calcifications along the V4 segment left vertebral artery without significant stenosis. Basilar artery unremarkable. Posterior cerebral artery is unremarkable. IMPRESSION: * No significant stenosis, occlusion, sizable aneurysm. * Similar appearing left thalamic hemorrhage with intraventricular extension and 4 mm rightward midline shift. Approved by Resident Dulce Price DO on 04/12/2023 3:41 AM I, Arianne Rodrigues MD have personally reviewed the image(s) and agree with and/or edited the report Finalized by Arianne Rodrigues MD on 04/12/2023 3:[address] angiogram carotid Result Date: 04/12/2023 CLINICAL INFORMATION: Stroke, follow up TECHNIQUE: CT angiogram performed following intravenous administration of nonionic intravenous contrast. Coronal and sagittal and 3-D volume rendered maximum intensity projection images generated and reviewed under concurrent physician supervision. Automated e xposure control utilized. The [place] Symptomatic Carotid Endarterectomy Trial (NASCET) method for calculating the degree of stenosis was utilized for stenosis measurements. All CT scans at this facility use dose modulation, iterative reconstruction, and/or weight based dosing when appropriate to reduce radiation dose to as low as reasonably achievable. COMPARISON: None FINDINGS: There is aneurysmal dilatation of the ascending thoracic aorta and aortic arch. No stenosis is seen. Thrombusis demonstrated throughout the aortic arch. And tortuous. The origins of the great vessels are widely patent. On the right, the right common carotid artery is tortuous but patent. There is a 50% stenosis in the origin of the right internal carotid artery. The remainder the right internal carotid arteries patent. The right external carotid arteries patent. On the left, the left common, internal, and external carotid arteries widely patent. No stenoses are seen on the left. The vertebral arteriesare patent bilaterally. IMPRESSION: * 50% stenosis in the origin of the right internal carotid artery. * Aneurysmal dilatation of the ascending thoracic aorta and aortic arch with mural thrombus demonstrated. * Otherwise normal CT angiogram the carotid arteries. 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 Patient was accepted as a transfer from an outside hospital for right-sided weakness. Initial NIH was 1 (right lower extremity weakness), not on blood thinners. On arrival, her neuro exam worsened deeming a repeat head CT with hematoma expansion. Neurosurgery was taken on board, deferred plans for neurosurgical intervention. Neuro critical care remains on board for fluctuating mental status and medical management. Concern for aspiration pneumonia, started on Abx and CC following Hypernatremia Thrombocytopenia, oncology following Dysphagia s/p PEG 04/11/23 Stroke risk factors Hypertension Abdominal aortic aneurysm. Hyperlipidemia. Stroke work up: MRI brain with and without contrast: Pending Echocardiogram: EF 60-65% mildly dilated aortic aorta, trace mitral and tricuspid regurgitation. Hemoglobin A1c: 5.5 LDL: 130 Routine EEG: Left posterior parietotemporal slowing. Plan: Oncology for thrombocytopenia, follow up outpatient Zosyn for pneumonia and HFNC per critical care SBP< 140, use p.r.n. antihypertensive medications. Plan to start statins in the outpatient setting. Continue free water flushes -VTE prophylaxis with subQ heparin. -GI prophylaxis using omeprazole, mechanical VTE prophylaxis, p.r.n. pain medications. Dispo: referrals sent to SNF Patient was discussed with Dr. Burgess Oksana Bal MD PGY-2 Neurology Resident [facility] 5:05 PM 04/12/23 This patient is being followed by the Neurology Resident service. Contact attending directly during these hours: Saturday to 7:30-8:30 A.M. to Saturday 12-1:00 p.m. Primary Neurology service: [phone] Consult neurology service: [phone] Resident Stroke Service: [phone] If the patient belongs to the Stroke [facility] service please contact the St[facility] directly. Associated attestation - Dmitriy Couch MD - 04/12/2023 11:44 PM EST I saw the patient on the same day as the resident. I personally obtained the history, reviewed the data, examined the patient, and formulated the impression and plan. I personally reviewed the patient's images and made my own independent findings. I reviewed the residents note including the historyof present illness, family history, social history, review of systems, vital signs, physical examination, laboratory studies, imaging, impression, plan and agree with the documented findings and planof care. I spent more than 35 minutes in evaluation of this patient including more than 50% in counseling and coordination of care. The patient is being evaluated for stroke and is at risk for neurological deterioration. 78 year old with a history of htn p/w constellation of neurological symptoms Ct with eft subcortical bleed large, personally reviewed H/c c/b pneumonia Aspiration pneumonia Ongoing assessment for intubation Dysphagia, plan for peg when medically stable Exam: lethargic, right weakness, trace left squeeze. Stable today. awake and talking/interactive. Hematology/rheumatology evaluating thrombocytopenia - workup unrevealing WBC nml 8.9 Na 151 (free water flushes) Chronic thrombocytopenia per hematology Off Hiflow - breathing better Cr 0.88 Impression: hypertensive ich CTA head and neck Control bp ATB for pneumonia Dvt prophylaxis Disposition planning Dmitriy Couch MD PhD Vascular Neurology Neurointerventional Surgery * Mai Pino RN - 04/12/2023 11:30 AM EST Images from the original note were not included. FOLLOW-UP: Post-Intensive Care Rounding Note Patient: Ellen Chan : 1945 Age: 78 y.o. Length of Stay: 11 days Admission Diagnosis: 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[facility]-HCC) [I61.0] Bradycardia [R00.1] Reviewing patient due to her recent transfer out from Intensive Care. Recorded vital signs are stable and the patient is not noted to be in any apparent distress. Telemetry and monitoring noted. Staff may call with any issues or concerns regarding her clinical presentation or stability. Thank you, MAI PINO RN Rapid Response: [facility] * Agatha Eden MD - 04/12/2023 10:03 AM EST Physical Medicine and Rehabilitation Daily Progress Note Today's Date and Time: 04/12/2023, 10:04 AM Subjective/Chief complaint: 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CMS-HCC) Principal Problem: 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CMS-HCC) Right-sided weakness Hypertension Dysphagia SUBJECTIVE Resting bed, denies any headaches or seizures Brief HPI 78-year-old female with history of AAA, hypertension presented to the hospital 2nd right-sided weakness. CT of the brain showed intraparenchymal hemorrhage. She is status post Respiratory failure Review of Systems : Respiratory: denies wheezes or SOB Cardiovascular: denies Chest pain, pressure, palpitations Gastrointestinal: denies abdominal pain, diarrhea, constipation of changes in BM Genitourinary, denies burning during urination, urgency, or increased frequency Neurological: denies dizziness and light-headedness. Physical Examination: Vital signs in last 24 hours: Temp: [36.1 C (97 F)-36.9 C (98.4 F)] 36.7 C (98.1 F) Pulse: [68-89] 74 Resp: [14-25] 21 BP: (100-157)/(66-97) 136/93 SpO2: [92 %-99 %] 96 % O2 Device: Nasal cannula O2 Flow Rate (L/min): [1 L/min-3 L/min] 1 L/min Intake/Output last 3 shifts: I/O last 3 completed shifts: In: 2928.7 [I.V.:512.8; NG/GT:1960; IV Piggyback:455.9] Out: 2630 [Urine:2630] Intake/Output this shift: No intake/output data recorded. General Appearance: No distress Head: Normocephalic, without obvious abnormality, atraumatic Eyes: conjunctivae/corneas clear. PERRL, EOM's intact. Fundi benign. ENT: ENT exam normal, no neck nodes or sinus tenderness Neck: no adenopathy, no carotid bruit, no JVD, supple, symmetrical, trachea midline, and thyroid not enlarged, symmetric, no tenderness/mass/nodules Lungs: clear to auscultation bilaterally Heart: regular rate and rhythm, S1, S2 normal, no murmur, click, rub or gallop Abdomen: soft, non-tender; bowel sounds normal; no masses, no organomegaly Extremities: extremities normal, atraumatic, no cyanosis or edema Skin: Skin color, texture, turgor normal. No rashes or lesions Neurologic: Generalized weakness Laboratory data: I have reviewed the following labs: CBC with Differential:@CBC with Differential: Lab Results Component Value Date WBC 12.9 (H) 04/12/2023 HGB 10.8 (L) 04/12/2023 HCT 32.7 (L) 04/12/2023 PLT 92 (L) 04/12/2023 MCV 87 04/12/2023 MCH 28.7 04/12/2023 MCHC 33.1 04/12/2023 RDW 15.1 (H) 04/12/2023 [ BMP: Lab Results Component Value Date GLU 130 (H) 04/12/2023 GLU 121 (H) 04/12/2023 CALCIUM 8.6 04/12/2023 K 3.8 04/12/2023 CO2 23 04/12/2023 CL 115 (H) 04/12/2023 BUN 32 (H) 04/12/2023 CREATININE 0.71 04/12/2023 Hepatic Function Panel: No results found for: ALB , PROT @LABRCNT(VANCOTROUGH:3)@ No results found for: CRP No results found for: SEDRATE All Labs reviewed Imaging Studies: All radiological studies reviewed Medications: amLODIPine, 10 mg, nasogastric, Daily bisacodyL, 10 mg, rectal, Q3 Days carvediloL, 12.5 mg, nasogastric, BID fondaparinux (ARIXTRA) injection, 1.5 mg, subcutaneous, Daily lisinopriL, 20 mg, nasogastric, Daily magnesium hydroxide, 30 mL, nasogastric, Q3 Days omeprazole-sodium bicarbonate, 40 mg, nasogastric, Daily [COMPLETED] piperacillin-tazobactam (ZOSYN) IV, 4.5 g, intravenous, Once FOLLOWED BY piperacillin-tazobactam (ZOSYN) IV, 3.375 g, intravenous, Q8H sennosides-docusate sodium, 2 tablet, nasogastric, BID All Medications reviewed Impression : Patient Active Problem List Diagnosis 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[facility]) Recommendations/Plan: Continue PT, OT and speech therapy Total assistance with bed mobility/Maxi sophia Consider [facility] facility versus LTAC Plan for PEG Continue [facility] for hypertension Will follow up with you for rehab needs Agatha Eden MD * CLAIR Rosario - 04/12/2023 9:13 AM EST NUTRITION NOTE( brief) Patient s/p PEG placement; TF resumed per PEG. Noted Konvomep being given per PEG, which required TF held for 3 hrs before and 1 hr after medication is given per PEG. TF adjusted as follows: Dietary Orders (From admission, onward) Start Ordered 04/12/23 0912 Tube feeding No tray-Continuous Tube feeding No Tray-Continuous; Nasogastric or Oral gastric feeding tube; Standard 1.5 kcal; 45; 10; Every 6 hours; 55ml/hr x 20 hrs (hodl for Konvomep dosing- 3 hr before, 1 hr afater) Continuous Comments: Formula: Osmolite 1.5 References: Formulary Card Question Answer Comment Diet Type: Tube feeding No Tray-Continuous Tube Type: Nasogastric or Oral gastric feeding tube Tube Feeding Formula: Standard 1.5 kcal Tube Feeding Start Rate (mL/hour): 45 Increase Rate by (mL/hour): 10 Frequency of Rate increase: Every 6 hours Goal Rate (mL/hour): 55ml/hr x 20 hrs hodl for Konvomep dosing- 3 hr before, 1 hr afater 04/12/23 0912 04/11/23 0800 Free water Every 4 hours Question Answer Comment Amount in mL 350 Tube Type: Nasogastric or Oral gastric feeding tube 04/11/23 0721 Will continue to monitor TF tolerance, I/O, free water ordered per . Balbina Neil R.D,L.D. Clinical dietitian Patient Touch extension:[phone] Direct Dial phone number: [phone] 04/12/23 9:15 AM * Vinny Tello MD - 04/12/2023 7:30 AM EST Images from the original note were not included. 04/12/2023 7:30 AM Name: Ellen Chan Age: 78 y.o. female Acct: [id number] Room: [address] Day: 11 Admit Date: 04/01/2023 4:08 AM PCP: NITHYA BROWN MD Subjective: POD 1 s/p PEG placement. No acute events overnight. Niece at bedside. Patient resting comfortably in bed. Tolerating tube feeds at 25 mL/hr. No residuals. Minimal abdominal discomfort per niece. No emesis or bowel movements. Objective: Vitals: 04/12/23 0703 BP: (!) 136/93 Pulse: 74 Resp: 21 Temp: 36.7 C (98.1 F) SpO2: 96% Temp: [36.1 C (97 F)-37.1 C (98.7 F)] 36.7 C (98.1 F) Pulse: [68-89] 74 Resp: [14-25] 21 BP: (100-157)/(64-97) 136/93 SpO2: [84 %-99 %] 96 % O2 Device: Nasal cannula O2 Flow Rate (L/min): [1 L/min-3 L/min] 1 L/min Allergies Allergen Reactions Ciprofloxacin Headache Alendronate Bee Venom Protein (Honey Bee) feels like my eyes are spinning around Cuvadphb-Gwobabcyjpf-Mmhqfawmn Oxycodone Headache I just don't want to take it Intake/Output last 3 shifts: I/O last 3 completed shifts: In: 2928.7 [I.V.:512.8; NG/GT:1960; IV Piggyback:455.9] Out: 2630 [Urine:2630] Intake/Output this shift: No intake/output data recorded. Dietary Orders (From admission, onward) Start Ordered 04/11/23 1752 Tube feeding No tray-Continuous Tube feeding No Tray-Continuous; Nasogastric or Oral gastric feeding tube; Standard 1.5 kcal; 15; 10; Every 8 hours; 45 Continuous Comments: Formula: Osmolite 1.5 References: Formulary Card Question Answer Comment Diet Type: Tube feeding No Tray-Continuous Tube Type: Nasogastric or Oral gastric feeding tube Tube Feeding Formula: Standard 1.5 kcal Tube Feeding Start Rate (mL/hour): 15 Increase Rate by (mL/hour): 10 Frequency of Rate increase: Every 8 hours Goal Rate (mL/hour): 45 04/11/23 1751 04/11/23 0800 Free water Every 4 hours Question Answer Comment Amount in mL 350 Tube Type: Nasogastric or Oral gastric feeding tube 04/11/23 0721 Physical Exam General: Awake, in no acute distress HENT: Head atraumatic, normocephalic, external ears and nose are normal Eyes: Conjunctivae clear, non-icteric, EOMI Pulmonary: Regular, non-labored respirations, without use of accessory muscles, no stridor, on nasal cannula Cardiovascular: Regular rate and rhythm Abdomen: Soft, minimal tenderness around PEG site, non-distended. No rebound or guarding. PEG at 3 cm at skin level, clean/dry/intact. Musculoskeletal: Range of motion grossly normal x4 extremities, no deformity x4 extremities Neurological: No gross neurologic deficits noted. Skin: Warm, dry, without jaundice Laboratory Data: Lab Results Component Value Date WBC 9.7 04/11/2023 HGB 11.4 (L) 04/11/2023 HCT 34.0 (L) 04/11/2023 MCV 86 04/11/2023 PLT 97 (L) 04/11/2023 Lab Results Component Value Date GLU 130 (H) 04/12/2023 GLU 121 (H) 04/12/2023 CALCIUM 8.6 04/12/2023 K 3.8 04/12/2023 CO2 23 04/12/2023 CL 115 (H) 04/12/2023 BUN 32 (H) 04/12/2023 CREATININE 0.71 04/12/2023 No results found for: AMYLASE Lab Results Component Value Date LIPASE 10 (L) 05/19/2019 Lab Results Component Value Date ALT 88 (H) 04/12/2023 AST 37 04/12/2023 ALKPHOS 85 04/12/2023 Lab Results Component Value Date INR 1.1 04/09/2023 INR 1.0 04/01/2023 PROTIME 13.3 (H) 04/09/2023 PROTIME 12.2 04/01/2023 amLODIPine, 10 mg, nasogastric, Daily bisacodyL, 10 mg, rectal, Q3 Days carvediloL, 12.5 mg, nasogastric, BID fondaparinux (ARIXTRA) injection, 1.5 mg, subcutaneous, Daily lisinopriL, 20 mg, nasogastric, Daily magnesium hydroxide, 30 mL, nasogastric, Q3 Days omeprazole-sodium bicarbonate, 40 mg, nasogastric, Daily [COMPLETED] piperacillin-tazobactam (ZOSYN) IV, 4.5 g, intravenous, Once FOLLOWED BY piperacillin-tazobactam (ZOSYN) IV, 3.375 g, intravenous, Q8H sennosides-docusate sodium, 2 tablet, nasogastric, BID acetaminophen calcium gluconate OR calcium gluconate OR calcium gluconate dextrose dextrose 5 % in water dextrose 50 % in water (D50W) fentaNYL fentaNYL glucagon (human recombinant) hydrALAZINE hydrALAZINE ipratropium-albuteroL labetalol labetalol magnesium sulfate OR magnesium sulfate melatonin metoprolol (LOPRESSOR) IV morphine injection morphine injection ondansetron ondansetron potassium chloride OR potassium chloride potassium chloride in water OR potassium chloride in water saliva stimulant comb. no.3 sodium phosphate IV OR sodium phosphate IV - central line OR sod phos di, mono-K phos mono sodium chloride 0.9 % sodium chloride 0.9 % sodium chloride 0.9 % Assessment: Ellen Chan is a 78 y.o. female with PMH GERD, now with dysphagia secondary to thalamic ICH s/pPEG tube placement on 04/11. Patient Active Problem List Diagnosis 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[facility]) Plan: Advance tube feeds to goal as tolerated Abdominal binder at all times to prevent tube dislodgement Pain control per primary DVT prophylaxis: SCDs, okay to resume Arixtra if hemoglobin stable per primary No further surgical management indicated or planned at this time. General surgery service will sign off. Please reconsult/call if additional questions, concerns, or issues develop requiring further general surgery service input. Vinny Tello MD General Surgery Resident, PGY-1 Acute Care Surgery/ACS 6a-6p pager #[phone] 6p-6a pager #[phone] Associated attestation - Kacie Cabrales MD - 04/12/2023 3:17 PM EST ATTENDING NOTE I reviewed the resident s note and discussed the case with the resident. This specific service willnot be billed Electronically signed by Kacie Cabrales MD [facility] General Surgeons Robotic Surgery Trauma, Acute Care Surgery and Surgical Critical Care * Vinny Tello MD - 04/11/2023 11:46 AM EST 04/11/2023 11:46 AM Name: Ellen Chan Age: 78 y.o. female Acct: [id number] Room: [address] Day: 10 Admit Date: 04/01/2023 4:08 AM PCP: NITHYA BROWN MD Subjective: Ellen Chan is a 78 y.o. 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 General surgery consulted for PEG tube placement. No acute events overnight. Niece at bedside. Patient resting comfortably in bed. Patient tolerated tube feeds yesterday without any nausea or emesis. Platelets have been trending upward, now 97. Objective: Vitals: 04/11/23 1100 BP: 123/89 Pulse: 76 Resp: 17 Temp: SpO2: 98% Temp: [36.7 C (98 F)-37.1 C (98.8 F)] 37.1 C (98.7 F) Pulse: [72-90] 76 Resp: [17-28] 17 BP: (96-136)/(12-93) 123/89 FiO2 (%): [40 %] 40 % SpO2: [81 %-100 %] 98 % O2 Device: Nasal cannula O2 Flow Rate (L/min): [6 L/min-40 L/min] 6 L/min Allergies Allergen Reactions Ciprofloxacin Headache Alendronate Bee Venom Protein (Honey Bee) feels like my eyes are spinning around Ulkwflpb-Mdvmkwnsvij-Iqnvscuif Oxycodone Headache I just don't want to take it Intake/Output last 3 shifts: I/O last 3 completed shifts: In: 2738.3 [NG/GT:2465; IV Piggyback:273.3] Out: 1850 [Urine:1850] Intake/Output this shift: I/O this shift: In: 300 [NG/GT:300] Out: 380 [Urine:380] Dietary Orders (From admission, onward) Start Ordered 04/11/23 0800 Free water Every 4 hours Question Answer Comment Amount in mL 350 Tube Type: Nasogastric or Oral gastric feeding tube 04/11/23 0721 04/11/23 0608 Adult diet NPO; Except medications Diet effective now Question Answer Comment Diet Type: NPO NPO Except: Except medications 04/11/23 0607 Physical Exam General Appearance: Awake, Alert & Oriented x3, No Acute Distress. Neck: Trachea Midline Pulmonary: Unlabored breathing. No expiratory wheeze. Cardiac: Regular rhythm and rate. Abdomen: Soft, nondistended, no appreciable tenderness Extremity: Full Range of Motion, No edema Bilateral Upper Extremities Skin: Dry. Non-icteric. No Rash. Eyes: Pupils Equal and Round, Non-icteric Laboratory Data: Lab Results Component Value Date WBC 9.7 04/11/2023 HGB 11.4 (L) 04/11/2023 HCT 34.0 (L) 04/11/2023 MCV 86 04/11/2023 PLT 97 (L) 04/11/2023 Lab Results Component Value Date GLU 153 (H) 04/11/2023 CALCIUM 8.6 04/11/2023 K 4.0 04/11/2023 CO2 24 04/11/2023 CL 118 (H) 04/11/2023 BUN 39 (H) 04/11/2023 CREATININE 0.88 04/11/2023 No results found for: AMYLASE Lab Results Component Value Date LIPASE 10 (L) 05/19/2019 Lab Results Component Value Date ALT 94 (H) 04/11/2023 AST 54 (H) 04/11/2023 ALKPHOS 91 04/11/2023 Lab Results Component Value Date INR 1.1 04/09/2023 INR 1.0 04/01/2023 PROTIME 13.3 (H) 04/09/2023 PROTIME 12.2 04/01/2023 amLODIPine, 10 mg, nasogastric, Daily bisacodyL, 10 mg, rectal, Q3 Days carvediloL, 12.5 mg, nasogastric, BID fondaparinux (ARIXTRA) injection, 1.5 mg, subcutaneous, Daily lisinopriL, 20 mg, nasogastric, Daily magnesium hydroxide, 30 mL, nasogastric, Q3 Days omeprazole-sodium bicarbonate, 40 mg, nasogastric, Daily [COMPLETED] piperacillin-tazobactam (ZOSYN) IV, 4.5 g, intravenous, Once FOLLOWED BY piperacillin-tazobactam (ZOSYN) IV, 3.375 g, intravenous, Q8H sennosides-docusate sodium, 2 tablet, nasogastric, BID acetaminophen calcium gluconate OR calcium gluconate OR calcium gluconate dextrose dextrose 5 % in water dextrose 50 % in water (D50W) glucagon (human recombinant) hydrALAZINE ipratropium-albuteroL labetalol magnesium sulfate OR magnesium sulfate melatonin ondansetron potassium chloride OR potassium chloride potassium chloride in water OR potassium chloride in water saliva stimulant comb. no.3 sodium phosphate IV OR sodium phosphate IV - central line OR sod phos di, mono-K phos mono sodium chloride 0.9 % sodium chloride 0.9 % sodium chloride 0.9 % Assessment: Ellen Chan is a 78 y.o. 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 General surgery consulted for PEG tube placement. Patient Active Problem List Diagnosis 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[facility]) Plan: Plan for PEG placement today at 1300. Consent obtained from granddaughter/POA. Diet: NPO, hold tube feeds DVT prophylaxis: SCDs, hold Abranxtra Vinny Tello MD General Surgery Resident, PGY-1 Acute Care Surgery/ACS 6a-6p pager #[phone] 6p-6a pager #[phone] Associated attestation - Dae Bo MD - 04/11/2023 12:43 PM EST Attending Attestation: I saw the patient. I participated and was physically present during the critical/felix portions of the service. I was directly involved in the management and treatment plan of the patient. I reviewed the resident's note. Additional Notes/Findings: Plan for PEG today * CLAIR Rosario - 04/11/2023 10:52 AM EST NUTRITION ADULT FOLLOW UP NUTRITION ASSESSMENT: Patient History: Brief Clinical Summary: Patient initially presented to OSH with right sided weakness. Found to havesmall left thalamic ICH and transferred to [facility] for further care.PMHx includes HTN, GERD, AAA. Pt remains NPO, not ready for oral diet per PIPE BENDER. Biochemical Data, Medical Tests, and Procedures: 04/01 CT brain: Enlarging left basal ganglia intraparenchymal hemorrhage with worsening intraventricular extension. 04/01 Soft and Bite Sized and no liquids. However, per MD hold off on oral diet d/t mentation. VFSSon hold. 04/04- remains NPO 04/08- D2.5 stopped due to decrease in Na levels, free water continues 04/11- PEG planned Labs: Results from last 3 days Lab Units 04/11/23 0558 04/11/23 0034 04/10/23 1859 04/10/23 1311 04/10/23 0620 04/10/23 0041 04/09/23 0812 04/09/23 0158 SODIUM mmol/L 151* 150* 149* 150* < > 151* < > 146 POTASSIUM mmol/L 4.0 4.6 3.8 3.9 < > 3.8 < > 3.5 CHLORIDE mmol/L 118* 119* 116* 115* -- 115* -- 113* CO2 mmol/L -- 28 -- 26 BUN mg/dL -- 39* -- -- -- 38* -- 33* CREATININE mg/dL -- 0.88 -- -- -- 0.80 -- 0.74 CALCIUM mg/dL -- 8.6 -- -- -- 8.6 -- 8.4* ALBUMIN g/dL -- 2.9* -- PENDING -- 3.2 -- 3.1* ALK PHOS U/L -- 91 -- -- -- 109 -- 107 ALT U/L -- 94* -- -- -- 88* -- 64* AST U/L -- 54* -- -- -- 48* -- 35 < > = values in this interval not displayed. Results from last 7 days Lab Units 04/11/233304/10/234004/09/238 04/08/23 0418 04/07/23 1154 04/07/23 0334 04/06/23 0342 BEDSIDE GLUCOSE mg/dL -- -- -- -- 111* -- -- GLUCOSE mg/dL 153* 113* 155* 135* -- 112* 106* Results from last 3 days Lab Units 04/11/233304/10/234004/09/23 0158 WBC X10E9/L 9.7 8.9 10.5 HEMOGLOBIN g/dL 11.4* 12.0 11.5* HEMATOCRIT % 34.0* 35.6 33.6* PLATELETS X10E9/L 97* 87* 74* MCV fL 86 86 86 Results from last 3 days Lab Units 04/11/233304/10/23 00404/09/23 1715 04/09/23 0812 MAGNESIUM mg/dL 2.1 2.4 -- 1.9 IONIZED MAGNESIUM mmol/L -- -- 0.75* -- No data from last 3 days. Results from last 3 days Lab Units 04/11/233304/10/234004/09/23 015 TOTAL BILIRUBIN mg/dL 0.6 0.8 0.7 Lab Results Component Value Date HGBA1C 5.5 04/01/2023 Lab Results Component Value Date IRON 45 (L) 04/09/2023 TIBC 217 (L) 04/09/2023 FERRITIN 618 (H) 04/09/2023 Lab Results Component Value Date IRONSAT 21 04/09/2023 Lab Results Component Value Date CHOL 243 (H) 04/01/2023 Lab Results Component Value Date CHDL 2.6 04/01/2023 Lab Results Component Value Date HDL 93 04/01/2023 Lab Results Component Value Date LDLCALC 130 (H) 04/01/2023 Lab Results Component Value Date TRIG 99 04/01/2023 Lab Results Component Value Date VERYLOWLIP 20 04/01/2023 Lab Results Component Value Date [id number] 416 04/09/2023 Lab Results Component Value Date FOLATE 12.0 04/09/2023 No results found for: VITD25 Comments (labs): Na 151 Cl 118 Medications/ Parenteral: Konvomep started per enteral route , neuro bowel routine Current Facility-Administered Medications Medication Dose Route Frequency Provider Last Rate Last Admin acetaminophen (TYLENOL) 650 mg/20.3 mL solution 650 mg 650 mg nasogastric Q6H PRN Christina Mendozaor, DO 650 mg at 04/11/23 0519 amLODIPine (NORVASC) tablet 10 mg 10 mg nasogastric Daily Christina Freitas, DO 10 mg at 04/11/23 0823 bisacodyL (DULCOLAX) suppository 10 mg 10 mg rectal Q3 Days Christina Freitas, DO 10 mg at 04/08/23 1312 calcium gluconate IVPB 1000 mg/50 mL (20 mg/mL premix) 1,000 mg intravenous PRN Ry De Anda MD Or calcium gluconate IVPB 2000 mg/100 mL (20 mg/mL premix) 2,000 mg intravenous PRN Ry De Anda MD Or calcium gluconate 3,000 mg in sodium chloride 0.9 % 100 mL IVPB 3,000 mg intravenous PRN Ry De Anda MD carvediloL (COREG) tablet 12.5 mg 12.5 mg nasogastric BID Jordan Hassan MD 12.5 mg at 04/11/23 0823 dextrose (GLUTOSE) 40 % gel 15 g 15 g oral PRN Ry De Anda MD dextrose 5 % (D5W) infusion 100 mL/hr intravenous Continuous PRN Ry De Anda MD dextrose 50 % in water (D50W) 50% solution 25 mL 25 mL intravenous PRN Ry De Anda MD fondaparinux (ARIXTRA) injection 1.5 mg 1.5 mg subcutaneous Daily Jack Meraz MD glucagon HCL injection 1 mg 1 mg intramuscular PRN Ry De Anda MD hydrALAZINE (APRESOLINE) injection 10 mg 10 mg intravenous Q4H PRN Christina Freitas, DO 10 mg at 04/04/23 0604 ipratropium-albuteroL (DUONEB) 0.5 mg-3 mg(2.5 mg base)/3 mL nebulizer solution 3 mL 3 mL nebulization Q4H PRN Mohan De Anda MD 3 mL at 04/09/23 0521 labetaloL (NORMODYNE,TRANDATE) injection 10 mg 10 mg intravenous Q5 Min PRN Christina Freitas, DO 10 mg at 04/09/23 0634 lisinopriL (PRINIVIL,ZESTRIL) tablet 20 mg 20 mg nasogastric Daily Christina Freitas, DO 20 mg at 04/11/23 0823 magnesium hydroxide (MILK OF MAGNESIA) suspension 30 mL 30 mL nasogastric Q3 Days Christina Freitas, DO 30 mL at 04/07/23 2152 magnesium sulfate IVPB 2000 mg/50 mL in iso-osmotic water (40 mg/mL premix) 2,000 mg intravenous PRN Ry De Anda MD Or magnesium sulfate IVPB 4000 mg/100 mL in iso-osmotic water (40 mg/mL premix) 4,000 mg intravenous PRN Ry De Anad MD melatonin (CIRCADIN) tablet 6 mg 6 mg nasogastric Nightly PRN Haseeb Mcnamara APRN-STUDY LEAD 6 mg at 04/11/23 0049 omeprazole-sodium bicarbonate (KONVOMEP) 2-84 mg/mL oral suspension 40 mg 40 mg nasogastric Daily Christina Freitas, DO 40 mg at 04/11/23 0824 ondansetron (PF) (ZOFRAN) injection 4 mg 4 mg intravenous Q6H PRN Christina Freitas DO 4 mg at1 2137 piperacillin-tazobactam (ZOSYN) 3.375 g in sodium chloride 0.9 % 50 mL IVPB-MBP 3.375 g [id number] Mai Ho APRN-STUDY LEAD 12.5 mL/hr at 04/11/23 1049 3.375 g at 04/11/23 1049 potassium chloride (K-TAB,KLOR-CON) CR tablet 20-50 mEq 20-50 mEq oral PRN Ry De Anda MD Or potassium chloride (KAYCIEL) 20 mEq/15 mL solution 20-50 mEq 20-50 mEq oral PRN Ry De Anda MD 30 mEq at 04/10/23 2319 potassium chloride IVPB 10 mEq/50 mL in water (0.2 mEq/mL premix) 10 mEq intravenous PRN Ry De Anda MD Or potassium chloride IVPB 10 mEq/100 mL in water (0.1 mEq/mL premix) 10 mEq intravenous PRAl[place] De Anda MD Stopped at 04/02/23 1058 saliva stimulant comb. no.3 (BIOTENE) solution 1 spray 1 spray oral PRN KOTA Chowdhury 1 spray at 04/09/23 1022 sennosides-docusate sodium (SENOKOT-S) 8.6-50 mg 2 tablet 2 tablet nasogastric BID Christina Penn DO 2 tablet at 04/11/23 0823 sodium phosphate 20 mmol in sodium chloride 0.9 % 250 mL IVPB 20 mmol intravenous PRN Ry De Anda MD Or sodium phosphate 20 mmol in sodium chloride 0.9 % 100 mL IVPB 20 mmol intravenous PRN Ry De Anda MD Or sod phos di, mono-K phos mono (K-PHOS NEUTRAL) 250 mg tablet 2 tablet 2 tablet oral PRN Ry De Anda MD sodium chloride 0.9 % infusion 10 mL/hr intravenous Continuous PRN Ry De Anda MD sodium chloride 0.9 % infusion 10 mL/hr intravenous Continuous PRN Ry De Anda MD sodium chloride 0.9 % infusion 10 mL/hr intravenous Continuous PRN Ry De Anda MD Stopped at 04/02/23 0805 Nutrition Focused Physical Findings stool x 1 yesterday Skin (per nursing flow sheets): Skin Color: Pale (04/11/23 0800) Skin Temp: Warm; Dry (04/11/23 08) Wound (per nursing flow sheets): Gastrointestinal (per nursing flow sheets): Abdomen Assessment: Soft; Rounded (04/11/23 0400) Last BM Date: 04/11/23 (04/11/23 08) Passing Flatus: Yes (04/11/23 08) RUQ Bowel Sounds: Active (04/11/23 08) LUQ Bowel Sounds: Active (04/11/23 08) RLQ Bowel Sounds: Active (04/11/23 08) LLQ Bowel Sounds: Active (04/11/23 08) GI Symptoms: Constipation (04/08/23 1200) Relieved by: Antiemetic (04/06/23 2137) Edema (per nursing flow sheets): Intake/ Output Last 24 hrs: Intake/Output Summary (Last 24 hours) at 04/11/2023 1053 Last data filed at 04/11/2023 0900 Gross per 24 hour Intake 2438.25 ml Output 1340 ml Net 1098.25 ml Food/Nutrition Related History: Diet/ Nutrition Order Review: Dietary Orders (From admission, onward) Start Ordered 04/11/23 0800 Free water Every 4 hours Question Answer Comment Amount in mL 350 Tube Type: Nasogastric or Oral gastric feeding tube 04/11/23 0721 04/11/23 0608 Adult diet NPO; Except medications Diet effective now Question Answer Comment Diet Type: NPO NPO Except: Except medications 04/11/23 0607 Inpatient Nutrition Support History: TF 04/02- Osmolite 1.5 04/04- at Osmolite 1.5 goal 45ml/hr 04/08- D2.5W stopped 04/11- TF held for PEG placement TF: on hold for PEG placement Anthropometrics: Ht Readings from Last 1 Encounters: 04/01/23 162.6 cm (5' 4 ) Last 3 Weight Readings 04/08/23 0000 04/09/23 0200 04/11/23 0000 Weight: 65.8 kg (145 lb 1 oz) 65.6 kg (144 lb 10 oz) 66.1 kg (145 lb 11.6 oz) Admit Weight: 67.1kg (04/01; bed scale) Almond Body Weight: 54.5kg Weight Changes: - Admit Body Mass Index: 25.02 Current Body Mass Index: Body mass index is 25.01 kg/m . Comparative Standards: Estimated Energy Needs: 9722-5434 kcals daily. Method and weight used: 25-30 kcal/kg IBW (54.5kg) Estimated Protein Needs: 65-110 grams daily. Method and weight used: 1.2-2g protein/kg IBW Estimated Fluid Needs: 7583-6329 ml daily. Method weight used: 1ml/kcal Comments: General needs NUTRITION DIAGNOSIS: Intake Diagnosis: Inadequate protein-energy intake (NI 5.3) TF meeting needs NUTRITION INTERVENTIONS: Enteral Nutrition:when able to resume TF post PEG: Continue Osmolite 1.5 at goal rate of 55ml/hr x 20 hrs ( hold for konvomep) This provides 1080ml formula, 1650kcals, 69gm protein, 838ml free water, and 100% RDI's for vitamins/minerals. Note free water flushes will provide 2100ml/day RECOMMENDATIONS: Monitor labs and replace PRN. May consider decreasing free water flushes: 200ml 4x/day if Na decreases further to borderline low. GOAL(S): Meet estimated calorie and protein needs. NUTRITION MONITORING AND EVALUATION: TF tolerance, weight trend, labs, POC and overall status. Balbina Neil R.D,L.D. Clinical dietitian Patient Touch extension:[phone] Direct Dial phone number: [phone] 04/11/23 10:59 AM * Michele Estrada MD - 04/11/2023 10:09 AM EST Images from the original note were not included. [facility] Jack Meraz M.D. Austin Spain M.D. Arianne Cha M.D. Neetu Snider M.D. Angeles Conner, CHILD WELFARE ASSISTANT-STUDY LEAD Chen Lloyd, CHILD WELFARE ASSISTANT-STUDY LEAD Miriam Cm, CHILD WELFARE ASSISTANT-STUDY LEAD Sushma Long, CHILD WELFARE ASSISTANT-STUDY LEAD AZIZA Herring M.D. Michele Estrada M.D. Peter Mullen M.D. Donaldo Weems M.D. Isabel Garrett, [facility] Piedad Tr, [facility] Josh Gale, [facility] Nayely Ruelas, [facility] Rachna Burk, [facility] PROGRESS NOTE Subjective: Currently, patient is resting in bed. She is more awake today and responds to some questions. Family is at bedside. We discussed our ongoing workup which has been mostly negative, except for an autoimmune antibody being positive. We discussed that our workup was close to concluding and that this thrombocytopenia is likely chronic. Patient will need to follow up with a Sheriff'S Officer, and could follow up with our group in [place], or with a [facility] proofer prepress in [place]. Family to discuss. Noquestions at this time. HPI: Ellen Chan is a 78 y.o. female with a PMHx of AAA, GERD, HTN. She presented to [facility] from an OSHwith right-sided weakness. She was found to be hypertensive. Unfortunately, she was having difficulty endorsing any history upon arrival, but knows that her symptoms began on 03/31/2023 at approximately 0900. She was transferred after she was found to have an ICH. During this admission, she's experienced acute respiratory insufficiency, multifocal pneumonia, leukocytosis, hypernatremia, JOHN. Hematology has been consulted for worsening thrombocytopenia. Objective Physical Examination: Vitals: BP 100/64 Pulse 79 Temp 37.1 C (98.7 F) Resp 21 Ht 162.6 cm (5' 4 ) Wt 66.1 kg (145 lb 11.6 oz) SpO2 96% BMI 25.01 kg/m Physical Exam Vitals and nursing note reviewed. Constitutional: General: She is not in acute distress. Appearance: Normal appearance. She is ill-appearing. HENT: Head: Normocephalic and atraumatic. Right Ear: External ear normal. Left Ear: External ear normal. Nose: Nose normal. Mouth/Throat: Mouth: Mucous membranes are moist. Eyes: Conjunctiva/sclera: Conjunctivae normal. Pupils: Pupils are equal, round, and reactive to light. Cardiovascular: Rate and Rhythm: Normal rate and regular rhythm. Pulses: Normal pulses. Heart sounds: Normal heart sounds. No murmur heard. No friction rub. No gallop. Pulmonary: Effort: Pulmonary effort is normal. Breath sounds: Normal breath sounds. Abdominal: General: Abdomen is flat. There is no distension. Palpations: There is no mass. Musculoskeletal: General: Normal range of motion. Cervical back: Normal range of motion and neck supple. Right lower leg: No edema. Left lower leg: No edema. Skin: General: Skin is warm and dry. Coloration: Skin is not jaundiced. Findings: No bruising or rash. Neurological: General: No focal deficit present. Mental Status: She is alert and oriented to person, place, and time. Cranial Nerves: No cranial nerve deficit. Sensory: No sensory deficit. Psychiatric: Mood and Affect: Mood normal. Behavior: Behavior normal. Thought Content: Thought content normal. Judgment: Judgment normal. Recent Labs Recent Results (from the past 24 hour(s)) Electrolyte panel Collection Time: 04/10/23 1:11 PM Result Value Ref Range Sodium 150 (H) 134 - 146 mmol/L Potassium, Bld 3.9 3.5 - 5.0 mmol/L Chloride 115 (H) 98 - 109 mmol/L CO2 24 22 - 32 mmol/L Anion gap 11 5 - 15 mmol/L KAY Screen w/ Reflex Collection Time: 04/10/23 1:11 PM Result Value Ref Range Kay screen Positive (A) Negative^Negative Rheumatoid factor Collection Time: 04/10/23 1:11 PM Result Value Ref Range Rheumatoid factor 14 <20 IU/mL Hepatitis panel, acute Collection Time: 04/10/23 1:11 PM Result Value Ref Range Hepatitis B Surface Ag Negative Negative^Negative Hep B Core IgM Ab Negative Negative^Negative Hep A IgM Ab Non-Reactive Non-Reactive^Non-Reactive Anti HCV w/ PCR reflex Non-Reactive Non-Reactive^Non-Reactive HIV 1&2 AB/AG Screen (P24 AG) Collection Time: 04/10/23 1:11 PM Result Value Ref Range HIV 1&2 AB/AG Non-Reactive Non-Reactive^Non-Reactive Protein electrophoresis, serum Collection Time: 04/10/23 1:11 PM Result Value Ref Range Total Protein 5.7 (L) 6.0 - 8.0 g/dL Albumin PENDING 3.4 - 5.3 g/dL Alpha 1 PENDING 0.1 - 0.4 g/dL Alpha 2 PENDING 0.4 - 1.1 g/dL Beta PENDING 0.5 - 1.2 g/dL Gamma Globulin PENDING 0.5 - 1.6 g/dL Prot. electrophoresis interp PENDING Immunoelectrophoresis for Therapy Monitoring Collection Time: 04/10/23 1:11 PM Result Value Ref Range IgA 374 68 - 378 mg/dL IgM 38 (L) 45 - 281 mg/dL IgG 786 635 - 1,741 mg/dL Free [place] Lt Chains 6.32 (H) 0.33 - 1.94 mg/dL Free Lambda Lt Chains 3.70 (H) 0.57 - 2.63 mg/dL Free zoila/lambda ratio 1.71 (H) 0.26 - 1.65 Immune profile inter PENDING Anti-Chromatin IGG Collection Time: 04/10/23 1:11 PM Result Value Ref Range Anti-chromatin IgG <0.2 <1.0 AI Anti-DNA antibody, double-stranded Collection Time: 04/10/23 1:11 PM Result Value Ref Range Ds DNA <1 <5 IU/ML PAPER CUP HANDLE MACHINE OPERATOR AB IgG Collection Time: 04/10/23 1:11 PM Result Value Ref Range Anti PAPER CUP HANDLE MACHINE OPERATOR 1.0 (H) <1.0 AI Anti-Ruelas AB IGG Collection Time: 04/10/23 1:11 PM Result Value Ref Range Anti-ruelas AB IgG <0.2 <1.0 AI 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 IgG Collection Time: 04/10/23 1:11 PM Result Value Ref Range Anti-Sm/PAPER CUP HANDLE MACHINE OPERATOR <0.2 <1.0 AI Electrolyte panel Collection Time: 04/10/23 6:59 PM Result Value Ref Range Sodium 149 (H) 134 - 146 mmol/L Potassium, Bld 3.8 3.5 - 5.0 mmol/L Chloride 116 (H) 98 - 109 mmol/L CO2 23 22 - 32 mmol/L Anion gap 10 5 - 15 mmol/L Comprehensive metabolic panel Collection Time: 04/11/23 12:34 AM Result Value Ref Range Sodium 150 (H) 134 - 146 mmol/L Potassium, Bld 4.6 3.5 - 5.0 mmol/L Chloride 119 (H) 98 - 109 mmol/L CO2 23 22 - 32 mmol/L Anion gap 8 5 - 15 mmol/L BUN 39 (H) 5 - 27 mg/dL Creatinine 0.88 0.40 - 1.00 mg/dL Glucose 153 (H) 65 - 99 mg/dL Calcium 8.6 8.5 - 10.5 mg/dL Total Protein 5.9 (L) 6.0 - 8.0 g/dL Albumin 2.9 (L) 3.2 - 5.3 g/dL Alkaline Phosphatase 91 39 - 130 U/L AST 54 (H) 0 - 41 U/L ALT 94 (H) 0 - 31 U/L Total bilirubin 0.6 0.3 - 1.2 mg/dL eGFR (CKD-EPI)non-race dependent 66 >59 ml/min/1.73sq.m CBC auto differential Collection Time: 04/11/23 12:34 AM Result Value Ref Range White Blood Cells 9.7 4.0 - 11.0 X10E9/L RBC count 3.95 3.80 - 5.20 X10E12/L Hemoglobin 11.4 (L) 11.7 - 15.5 g/dL Hematocrit 34.0 (L) 35 - 47 % MCV 86 80 - 100 fL MCH 28.9 27 - 34 pg MCHC 33.5 32 - 36 g/dL RDW 15.1 (H) 11.5 - 15.0 % Platelets 97 (L) 150 - 450 X10E9/L MPV 10.3 7 - 12 fL % neutrophils 80.7 % % lymphocytes 8.9 % % monocytes 6.0 % % eosinophils 3.8 % % Basophils 0.6 % Neutrophils Absolute (A) 7.9 (H) 1.5 - 6.6 X10E9/L Lymphocytes Absolute 0.9 (L) 1.0 - 3.5 X10E9/L Monocytes Absolute 0.6 0 - 0.9 X10E9/L Eosinophils Absolute 0.4 0.0 - 0.4 X10E9/L Basophils Absolute 0.1 0.0 - 0.2 X10E9/L Magnesium Collection Time: 04/11/23 12:34 AM Result Value Ref Range Magnesium 2.1 1.8 - 2.6 mg/dL Electrolyte panel Collection Time: 04/11/23 5:58 AM Result Value Ref Range Sodium 151 (H) 134 - 146 mmol/L Potassium, Bld 4.0 3.5 - 5.0 mmol/L Chloride 118 (H) 98 - 109 mmol/L CO2 24 22 - 32 mmol/L Anion gap 9 5 - 15 mmol/L Inpatient scheduled medications: Current Facility-Administered Medications: acetaminophen (TYLENOL) 650 mg/20.3 mL solution 650 mg, 650 mg, nasogastric, Q6H PRN, Christina Leah Swor, DO, 650 mg at 04/11/23 0519 amLODIPine (NORVASC) tablet 10 mg, 10 mg, nasogastric, Daily, Christina Leah Swor, DO, 10 mg at 04/11/23 0823 bisacodyL (DULCOLAX) suppository 10 mg, 10 mg, rectal, Q3 Days, Christina Leah Swor, DO, 10 mg at04/08/23 1312 calcium gluconate IVPB 1000 mg/50 mL (20 mg/mL premix), 1,000 mg, intravenous, PRN OR calcium gluconate IVPB 2000 mg/100 mL (20 mg/mL premix), 2,000 mg, intravenous, PRN OR calcium gluconate 3,000 mg in sodium chloride 0.9 % 100 mL IVPB, 3,000 mg, intravenous, PRN, Ry De Anda MD carvediloL (COREG) tablet 12.5 mg, 12.5 mg, nasogastric, BID, Jordan Hassan MD, 12.5 mg at 04/11/23 0823 dextrose (GLUTOSE) 40 % gel 15 g, 15 g, oral, PRN, Ry De Anda MD dextrose 5 % (D5W) infusion, 100 mL/hr, intravenous, Continuous PRN, Ry De Anda MD dextrose 50 % in water (D50W) 50% solution 25 mL, 25 mL, intravenous, PRN, Ry De Anda MD fondaparinux (ARIXTRA) injection 1.5 mg, 1.5 mg, subcutaneous, Daily, Jack Meraz MD glucagon HCL injection 1 mg, 1 mg, intramuscular, PRN, Ry De Anda MD hydrALAZINE (APRESOLINE) injection 10 mg, 10 mg, intravenous, Q4H PRN, Christina Grossbelaverne Mendozaor, DO, 10 mg at 04/04/23 0604 ipratropium-albuteroL (DUONEB) 0.5 mg-3 mg(2.5 mg base)/3 mL nebulizer solution 3 mL, 3 mL, nebulization, Q4H PRN, Mohan De Anda MD, 3 mL at 04/09/23 0521 labetaloL (NORMODYNE,TRANDATE) injection 10 mg, 10 mg, intravenous, Q5 Min PRN, Christina Mendozaor, DO, 10 mg at 04/09/23 0634 lisinopriL (PRINIVIL,ZESTRIL) tablet 20 mg, 20 mg, nasogastric, Daily, Christina Leah Swor, DO, 20 mg at 04/11/23 0823 magnesium hydroxide (MILK OF MAGNESIA) suspension 30 mL, 30 mL, nasogastric, Q3 Days, Christina Mendozaor, DO, 30 mL at 04/07/23 2152 magnesium sulfate IVPB 2000 mg/50 mL in iso-osmotic water (40 mg/mL premix), 2,000 mg, intravenous,PRN OR magnesium sulfate IVPB 4000 mg/100 mL in iso- osmotic water (40 mg/mL premix), 4,000 mg, intravenous, PRN, Ry De Anda MD melatonin (CIRCADIN) tablet 6 mg, 6 mg, nasogastric, Nightly PRN, Haseeb Mcnamara CHILD WELFARE ASSISTANT-STUDY LEAD, 6 mg at 04/11/23 0049 omeprazole-sodium bicarbonate (KONVOMEP) 2-84 mg/mL oral suspension 40 mg, 40 mg, nasogastric, Daily, Christina Mendozaor, DO, 40 mg at 04/11/23 0824 ondansetron (PF) (ZOFRAN) injection 4 mg, 4 mg, intravenous, Q6H PRN, Christina Mendozaor, DO, 4 mg at 04/06/23 2137 [COMPLETED] piperacillin-tazobactam (ZOSYN) 4.5 g in sodium chloride 0.9 % 50 mL IVPB-MBP, 4.5 g, intravenous, Once, Stopped at 04/06/23 1509 FOLLOWED BY piperacillin-tazobactam (ZOSYN) 3.375 g in sodium chloride 0.9 % 50 mL IVPB-MBP, 3.375 g, intravenous, Q8H, Mai Ho, CHILD WELFARE ASSISTANT-STUDY LEAD, Stopped at 04/11/23 0554 potassium chloride (K-TAB,KLOR-CON) CR tablet 20-50 mEq, 20-50 mEq, oral, PRN OR potassium chloride (KAYCIEL) 20 mEq/15 mL solution 20-50 mEq, 20-50 mEq, oral, PRN, Ry De Anda MD, 30 mEq at 04/10/23 2319 potassium chloride IVPB 10 mEq/50 mL in water (0.2 mEq/mL premix), 10 mEq, intravenous, PRN OR potassium chloride IVPB 10 mEq/100 mL in water (0.1 mEq/mL premix), 10 mEq, intravenous, PRN, Ry De Anda MD, Stopped at 04/02/23 1058 saliva stimulant comb. no.3 (BIOTENE) solution 1 spray, 1 spray, oral, PRN, Mai Ho, CHILD WELFARE ASSISTANT-STUDY LEAD, 1 spray at 04/09/23 1022 sennosides-docusate sodium (SENOKOT-S) 8.6-50 mg 2 tablet, 2 tablet, nasogastric, BID, Christina Freitas DO, 2 tablet at 04/11/23 0823 sodium phosphate 20 mmol in sodium chloride 0.9 % 250 mL IVPB, 20 mmol, intravenous, PRN OR sodium phosphate 20 mmol in sodium chloride 0.9 % 100 mL IVPB, 20 mmol, intravenous, PRN OR sod phos di, mono-K phos mono (K-PHOS NEUTRAL) 250 mg tablet 2 tablet, 2 tablet, oral, PRN, Ry De Anda MD sodium chloride 0.9 % infusion, 10 mL/hr, intravenous, Continuous PRN, Ry De Anda MD sodium chloride 0.9 % infusion, 10 mL/hr, intravenous, Continuous PRN, Ry De Anda MD sodium chloride 0.9 % infusion, 10 mL/hr, intravenous, Continuous PRN, Ry De Anda MD, Stopped at 04/02/23 0805 Diagnosis Problem list: Patient Active Problem List Diagnosis 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[facility]) Assessment/Plan Impression: #. Thrombocytopenia - Platelet 97,000 - 91,000 on admission. - 138,000 in 2020. #. Acute left ophthalmic ICH with IVH #. AAA s/p repair Plan: Differentials include consumption from ICH, microangiopathy due to AAA, or more likely chronic thrombocytopenia. No evidence of hemolysis, DIC, nutritional deficiency, splenic sequestration KAY positive with along with anti PAPER CUP HANDLE MACHINE OPERATOR antibody elevation. Rheumatology consulted for this finding. SPEP, IFX still pending. Patient will follow up with Dr. Marie in [place]. I will facilitate having this scheduled. If the patient/family decide to follow up with [facility], they are welcome to cancel this appointment. Hematology will sign off at this time. Please contact us with any questions. Transfusion Parameters: Hgb < 7 and Plts < 10,000, unless active bleeding transfuse Plts <20,000 Code Status: Modified Code Status [place] Further medical management of comorbid conditions per primary team and consulting services, appreciate assistance The patient was seen and examined and all plans and orders were agreed upon with the physician on service today, Dr. Estrada. Chen Lloyd, TANYA-STUDY LEAD [facility] [address] [place] [address] Epic Chat is my preferred mode of contact. For after hours (evening, weekends, holidays) Hematology Oncology needs, please call the stone unloader service [phone]. Please ask for the MD stone unloader. April 11, 2023, 10:39 AM ATTENDING PHYSICIAN NOTE: I, Michele Estrada, personally performed the face to face diagnostic evaluation on this patient, have seen and examined the patient independently. I have reviewed and interpreted diagnostic studies. I have discussed the assessment and plan with the nurse practitioner as documented above. The assessment and plan documented above reflects my evaluation of the case. My finding are as follows : Her PLT is stable around her baseline. 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 Family h/o autoimmune disease. Monitor PLT and contact hematology if further questions. MD Chen Moore, TANYA-STUDY LEAD 04/11/23 5090 * Oksana Bal MD - 04/11/2023 7:39 AM EST NEUROINTERVENTIONAL DAILY PROGRESS NOTE SUBJECTIVE: Ellen Chan is a 78 y.o. female was transferred from an outside hospital where she presented with right lower extremity weakness, a tele stroke alert was activated, initial NIH was 1, neuroimaging revealed left thalamic ICH with IVH ICH score of 2, with a blood pressure of 155/112. She was started on Cardene infusion for a systolic blood pressure less than 140 and was transferred to [facility] neuro ICU for further management. On arrival, there was decline in her mental status requiring repeat CT scan that showed hematoma expansion. Subsequently neurosurgery was taken on board, however, no surgical intervention was warranted. Neuro critical care was taken on board for medical management. Patient was noted to be mildly thrombocytopenic, with return of platelet count to 114, platelet function test demonstrated drug-induced thrombocytopenia. Patient has since been stable with waxing and waning mental status, intermittently agitated. Repeat CT head remained stable. Stroke risk factors: Hypertension Abdominal aortic aneurism. Hyperlipidemia Interval history: Patient was seen and examined at the bedside. No acute events overnight. Afebrile and hemodynamically stable. Niece is at bedside and says the patient is more awake today and is saying more words. CURRENT MEDICATIONS: dextrose 5 % in water, 100 mL/hr sodium chloride 0.9 %, 10 mL/hr sodium chloride 0.9 %, 10 mL/hr sodium chloride 0.9 %, 10 mL/hr, Last Rate: Stopped (04/02/23 0805) amLODIPine, 10 mg, nasogastric, Daily bisacodyL, 10 mg, rectal, Q3 Days carvediloL, 12.5 mg, nasogastric, BID fondaparinux (ARIXTRA) injection, 1.5 mg, subcutaneous, Daily ipratropium-albuteroL, 3 mL, nebulization, TID lisinopriL, 20 mg, nasogastric, Daily magnesium hydroxide, 30 mL, nasogastric, Q3 Days omeprazole-sodium bicarbonate, 40 mg, nasogastric, Daily [COMPLETED] piperacillin-tazobactam (ZOSYN) IV, 4.5 g, intravenous, Once FOLLOWED BY piperacillin-tazobactam (ZOSYN) IV, 3.375 g, intravenous, Q8H sennosides-docusate sodium, 2 tablet, nasogastric, BID PHYSICAL EXAM: Vital Signs: Blood pressure 107/75, pulse 75, temperature 36.9 C (98.4 F), temperature source Oral,resp. rate 19, height 162.6 cm (5' 4 ), weight 66.1 kg (145 lb 11.6 oz), SpO2 97%. Respiratory Source: O2 Device: (S) Nasal cannula Physical Exam Neurologic Exam 1a Level of consciousness: 0=alert; keenly responsive 1b. LOC questions: 2=Performs neither task correctly 1c. LOC commands: 1=Performs one task correctly 2. Best Gaze: 0=normal 3. Visual: 0=No visual loss 4. Facial Palsy: 0=Normal symmetric movement 5a. Motor left arm: 0=No drift, limb holds 90 (or 45) degrees for full 10 seconds 5b. Motor right arm: 4=No movement 6a. motor left le=No drift, limb holds 90 (or 45) degrees for full 10 seconds 6b Motor right le=No movement 7. Limb Ataxia: 0=Absent 8. Sensory: 0=Normal; no sensory loss 9. Best Language: 2=Severe aphasia; all communication is through fragmentary expression; great needfor inference, questioning, and guessing by the listener 10. Dysarthria: 0=Normal 11. Extinction and Inattention: 2=Profound lori-inattention or lori-inattention to more than one modality. Does not recognize own hand or orients only to one side of space 12. Distal motor function: 0=Normal Total: 15 Pre morbid Modified [place] score: 0 Lab Review Lab Results Component Value Date GLU 153 (H) 04/11/2023 CALCIUM 8.6 04/11/2023 K 4.0 04/11/2023 CO2 24 04/11/2023 BUN 39 (H) 04/11/2023 CREATININE 0.88 04/11/2023 Lab Results Component Value Date WBC 9.7 04/11/2023 HGB 11.4 (L) 04/11/2023 HCT 34.0 (L) 04/11/2023 MCV 86 04/11/2023 PLT 97 (L) 04/11/2023 Lab Results Component Value Date HGBA1C 5.5 04/01/2023 Lab Results Component Value Date CHOL 243 (H) 04/01/2023 Lab Results Component Value Date LDLCALC 130 (H) 04/01/2023 Lab Results Component Value Date TRIG 99 04/01/2023 Imaging: X-ray chest 1 view Result Date: 04/11/2023 Clinical History: Follow-up infiltrates. Shortness of breath. Portable Upright chest: 04/11/2023 Comparison: 04/10/2023 Findings: A single portable view of the chest was obtained. Enteric tube extends the upper abdomen. The cardiac silhouette is prominent with vascular tortuosity. Stents are present lower chest is mild vascular prominence centrally. There is hazy peripheral opacity greatest in the right upper lung with no change in this region. IMPRESSION: Stable pulmonary infiltrates. No acute change. Finalized by Rajan Mtz MD on 04/11/2023 6:52 AM Ultrasound abdomen limited Result Date: 04/10/2023 Ultrasound abdomen limited COMPARISON: CTA chest 04/06/2023 HISTORY: Thrombocytopenia, rule out hepatosplenomegaly. Technique: Ultrasound of the liver and spleen performed. FINDINGS: Heterogeneity ofthe liver without evidence for focal hepatic lesion. The liver has a normal contour and is normal in size measuring 16.5 cm craniocaudal dimension. Hepatopedal flow in the main portal vein. Gallbladder surgically absent. No perihepatic fluid. Prominence of the common duct measuring up to 9 with diameter consistent with history of cholecystectomy, tapering distally to 4 mm. Spleen is normal in size measuring up to 8.4 cm from diameter with multiple echogenic foci consistent with benign calcifiedgranulomas when correlated with recent CTA chest. Incidental benign- appearing 2.2 cm right renal cyst and benign-appearing 3.1 cm inferior pole left renal cyst with no imaging follow-up required. IMPRESSION: 1. No hepatosplenomegaly. 2. Mild heterogeneity of the liver suggesting possibility of hepatocellular disease. 3. Chronic changes detailed above. 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 Patient was accepted as a transfer from an outside hospital for right-sided weakness. Initial NIH was 1 (right lower extremity weakness), not on blood thinners. On arrival, her neuro exam worsened deeming a repeat head CT with hematoma expansion. Neurosurgery was taken on board, deferred plans for neurosurgical intervention. Neuro critical care remains on board for fluctuating mental status and medical management. Concern for aspiration pneumonia, started on Abx and CC following Hypernatremia Thrombocytopenia, oncology following Dysphagia s/p PEG 04/11/23 Stroke risk factors Hypertension Abdominal aortic aneurysm. Hyperlipidemia. Stroke work up: MRI brain with and without contrast: Pending Echocardiogram: EF 60-65% mildly dilated aortic aorta, trace mitral and tricuspid regurgitation. Hemoglobin A1c: 5.5 LDL: 130 Routine EEG: Left posterior parietotemporal slowing. Plan: CTA H/N now with stable respiratory status and normal renal function Oncology for thrombocytopenia, follow up outpatient Zosyn for pneumonia and HFNC per critical care SBP< 140, use p.r.n. antihypertensive medications. Plan to start statins in the outpatient setting. Transfer to step down -VTE prophylaxis with subQ heparin. -GI prophylaxis using omeprazole, mechanical VTE prophylaxis, p.r.n. pain medications. Dispo: referrals sent to SNF Patient was discussed with Dr. Burgess Oksana Bal MD PGY-2 Neurology Resident [facility] 7:39 AM 04/11/23 This patient is being followed by the Neurology Resident service. Contact attending directly during these hours: Saturday to 7:30-8:30 A.M. to Saturday 12-1:00 p.m. Primary Neurology service: [phone] Consult neurology service: [phone] Resident Stroke Service: [phone] If the patient belongs to the [facility] service please contact the [facility] directly. Associated attestation - Dmitriy Couch MD - 04/12/2023 1:11 AM EST I saw the patient on the same day as the resident. I personally obtained the history, reviewed the data, examined the patient, and formulated the impression and plan. I personally reviewed the patient's images and made my own independent findings. I reviewed the residents note including the historyof present illness, family history, social history, review of systems, vital signs, physical examination, laboratory studies, imaging, impression, plan and agree with the documented findings and planof care. I spent more than 35 minutes in evaluation of this patient including more than 50% in counseling and coordination of care. The patient is being evaluated for stroke and is at risk for neurological deterioration. 78 year old with a history of htn p/w constellation of neurological symptoms Ct with eft subcortical bleed large, personally reviewed H/c c/b pneumonia Aspiration pneumonia Ongoing assessment for intubation Dysphagia, plan for peg when medically stable Exam: lethargic, right weakness, trace left squeeze. Stable today. awake and talking/interactive. Hematology evaluating thrombocytopenia WBC nml 8.9 Na 151 (free water flushes) - [facility] monitoring Abdominal us for thrombocytopenia workup Chronic thrombocytopenia per hematology Off Hiflow - breathing better Cr 0.88 Impression: hypertensive ich Transfer out CTA head and neck PEG today Control bp ATB for pneumonia Additional imaging to rule out atypical causes of ich Dvt prophylaxis Disposition planning Dmitriy Couch MD PhD Vascular Neurology Neurointerventional Surgery * Roula Dao PA-C - 04/11/2023 6:13 AM EST CRITICAL CARE PROGRESS NOTE: Length of Stay 10 day(s) Assessment Acute left thalamic ICH with IVH Acute hypoxic respiratory failure in the setting of multifocal pneumonia and neurological failure, weaned from HFNC overnight and now tolerating 2L NC Multifocal pneumonia, likely aspiration induced Neutrophilic Leukocytosis, improved Hypernatremia with free water deficit JOHN, improved Thrombocytopenia, stable 97 this am Essential hypertension GERD AAA s/p repair 2018 Plan Supplemental O2 to maintain SpO2 > 90% - tolerating 2L NC Increase FWF as ordered and give IV diuril 125 mg x1 for hypernatremia, q6h lytes Continue Zosyn for PNA coverage, end 1/6 Antihypertensives as ordered in place - maintain SBP < 140 Prn duonebs Hematology following for thrombocytopenia, appreciate input PEG TBD per primary team & general surgery Aspiration precautions, HOB 45 degress Supportive care while in the ICU Nutrition: tolerating TF Activity: as able, PT/OT DVT prophylaxis: sq fondaparinux GI prophylaxis: protonix Glycemic control: maintain euglycemia Replace electrolytes per protocol CODE STATUS: FULL DISPOSITION: Per primary *Most recent imaging / lab studies independently reviewed. *Please also note additional orders Plan of care discussed with attending MD and bedside RN Roula Sylwia, PA-C [facility] Please feel free to contact me via Patient Touch Subjective No acute events overnight. Opens eyes to verbal but not following commands at this time. Niece updated at bedside. No acute distress noted. ALLERGIES: Allergies Allergen Reactions Ciprofloxacin Headache Alendronate Bee Venom Protein (Honey Bee) feels like my eyes are spinning around Iphkvotm-[id number] Oxycodone Headache I just don't want to take it PAST MEDICAL HISTORY: Past Medical History: Diagnosis Date AAA (abdominal aortic aneurysm) ([facility]) was surgically taken care of 09/2018 GERD (gastroesophageal reflux disease) Hypertension Upper respiratory infection 05/2019 Visual impairment glasses PAST SURGERY HISTORY: Past Surgical History: Procedure Laterality Date BREAST BIOPSY BREAST SURGERY 1989 BREAST BX CARDIAC SURGERY STENT 2018 CARDIAC SURGERY LEFT VENTRICLE STENT 2018 DILATION AND CURETTAGE, DIAGNOSTIC / THERAPEUTIC 1986 HYSTERECTOMY KNEE ARTHROSCOPY Left KNEE ARTHROSCOPY Left REMOVE METAL 2014 LAPAROSCOPIC CHOLECYSTECTOMY N/A 05/26/2019 Performed by Caro Pollard DO at [facility] ORIF WRIST FRACTURE Right Pins Vital Signs Temp: [36.7 C (98 F)-37.1 C (98.8 F)] 36.9 C (98.4 F) Pulse: [73-90] 75 Resp: [17-28] 19 BP: (96-136)/(12-93) 107/75 FiO2 (%): [40 %-50 %] 40 % SpO2: [81 %-100 %] 97 % O2 Device: Nasal cannula O2 Flow Rate (L/min): [6 L/min-40 L/min] 6 L/min O2 Device: (S) Nasal cannula Ventilalor Settings FiO2 (%): 40 % Invasive Hemodynamic [place] Lines/Drains Peripheral IV 04/06/23 Anterior;Left;Upper Arm (Active) Line Status Infusing 04/11/23399 Site Assessment Intact;Dry;Clean 04/11/23399 Dressing Type Occlusive;Transparent 04/11/23399 Dressing Status Intact;Dry;Clean 04/11/23399 Dressing Intervention Dressing changed 04/06/231999 Dressing Change Due (Non-Gauze) 04/13/23 04/06/231999 NG/OG Tube 04/03/23 Nasogastric Left nostril (Active) Placement Verification External length measured 04/11/23399 Status Continuous tube feeding 04/11/23399 Site Assessment Clean;Dry;Intact 04/11/23399 Tube Site Care Completed 04/11/23399 Secured at (cm) 55 cm 04/11/23399 Securement Method Adhesive tape 04/11/23399 Dressing Status/Interventions Clean;Dry;Intact 04/10/23 0800 Flushed With Tap water 04/11/23399 Flush or Free Water (mL) 300 ml 04/11/23399 Feeding? (Yes or No) Yes 04/11/23399 Urinary Catheter 04/02/23 (Active) Catheter Status Patent 04/11/23399 Site Assessment Clean;Skin intact 04/11/23399 Collection Container Standard drainage bag/container 04/11/23399 Securement Method Securing device (Describe) 04/11/23399 Tamper Evident Seal Intact Yes 04/11/23399 Reason for Continuing Strict I&O in critically ill patient 04/11/23399 Urine Color Yellow/straw 04/11/23399 Urine Appearance Clear 04/11/23399 Output (mL) 40 mL 04/11/23 06 I/O last 3 completed shifts: In: 1977 [NG/GT:1977] Out: 3455 [Urine:3455] I/O this shift: In: 1173.3 [NG/GT:900; IV Piggyback:273.3] Out: 670 [Urine:670] Physical Exam Constitutional: no acute distress, ill-appearing Head: Normocephalic and atraumatic Heart: S1, S2, RRR, no gallops, rubs, or murmurs. Distal pulses are palpable Lungs: Resps easy and non-labored. Coarse breath sounds, diminished in lung bases. Neuro: SANTOSH, awake, left gaze preference, moves left side spontaneously, no movement on right, not following commands GI: Abd soft, rounded with active BS. : Urine is yellow and clear per larios cath Extremities: No peripheral edema noted Recent Results (from the past 24 hour(s)) Sodium Collection Time: 04/10/23 6:20 AM Result Value Ref Range Sodium 152 (H) 134 - 146 mmol/L Potassium Collection Time: 04/10/23 6:20 AM Result Value Ref Range Potassium, Bld 3.8 3.5 - 5.0 mmol/L Electrolyte panel Collection Time: 04/10/23 1:11 PM Result Value Ref Range Sodium 150 (H) 134 - 146 mmol/L Potassium, Bld 3.9 3.5 - 5.0 mmol/L Chloride 115 (H) 98 - 109 mmol/L CO2 24 22 - 32 mmol/L Anion gap 11 5 - 15 mmol/L KAY Screen w/ Reflex Collection Time: 04/10/23 1:11 PM Result Value Ref Range Kay screen Positive (A) Negative^Negative Rheumatoid factor Collection Time: 04/10/23 1:11 PM Result Value Ref Range Rheumatoid factor 14 <20 IU/mL Hepatitis panel, acute Collection Time: 04/10/23 1:11 PM Result Value Ref Range Hepatitis B Surface Ag Negative Negative^Negative Hep B Core IgM Ab Negative Negative^Negative Hep A IgM Ab Non-Reactive Non-Reactive^Non-Reactive Anti HCV w/ PCR reflex Non-Reactive Non-Reactive^Non-Reactive HIV 1&2 AB/AG Screen (P24 AG) Collection Time: 04/10/23 1:11 PM Result Value Ref Range HIV 1&2 AB/AG Non-Reactive Non-Reactive^Non-Reactive Protein electrophoresis, serum Collection Time: 04/10/23 1:11 PM Result Value Ref Range Total Protein 5.7 (L) 6.0 - 8.0 g/dL Albumin PENDING 3.4 - 5.3 g/dL Alpha 1 PENDING 0.1 - 0.4 g/dL Alpha 2 PENDING 0.4 - 1.1 g/dL Beta PENDING 0.5 - 1.2 g/dL Gamma Globulin PENDING 0.5 - 1.6 g/dL Prot. electrophoresis interp PENDING Immunoelectrophoresis for Therapy Monitoring Collection Time: 04/10/23 1:11 PM Result Value Ref Range IgA 374 68 - 378 mg/dL IgM 38 (L) 45 - 281 mg/dL IgG 786 635 - 1,741 mg/dL Free [place] Lt Chains 6.32 (H) 0.33 - 1.94 mg/dL Free Lambda Lt Chains 3.70 (H) 0.57 - 2.63 mg/dL Free zoila/lambda ratio 1.71 (H) 0.26 - 1.65 Immune profile inter PENDING Anti-Chromatin IGG Collection Time: 04/10/23 1:11 PM Result Value Ref Range Anti-chromatin IgG <0.2 <1.0 AI Anti-DNA antibody, double-stranded Collection Time: 04/10/23 1:11 PM Result Value Ref Range Ds DNA <1 <5 IU/ML PAPER CUP HANDLE MACHINE OPERATOR AB IgG Collection Time: 04/10/23 1:11 PM Result Value Ref Range Anti PAPER CUP HANDLE MACHINE OPERATOR 1.0 (H) <1.0 AI Anti-Ruelas AB IGG Collection Time: 04/10/23 1:11 PM Result Value Ref Range Anti-ruelas AB IgG <0.2 <1.0 AI 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 IgG Collection Time: 04/10/23 1:11 PM Result Value Ref Range Anti-Sm/PAPER CUP HANDLE MACHINE OPERATOR <0.2 <1.0 AI Electrolyte panel Collection Time: 04/10/23 6:59 PM Result Value Ref Range Sodium 149 (H) 134 - 146 mmol/L Potassium, Bld 3.8 3.5 - 5.0 mmol/L Chloride 116 (H) 98 - 109 mmol/L CO2 23 22 - 32 mmol/L Anion gap 10 5 - 15 mmol/L Comprehensive metabolic panel Collection Time: 04/11/23 12:34 AM Result Value Ref Range Sodium 150 (H) 134 - 146 mmol/L Potassium, Bld 4.6 3.5 - 5.0 mmol/L Chloride 119 (H) 98 - 109 mmol/L CO2 23 22 - 32 mmol/L Anion gap 8 5 - 15 mmol/L BUN 39 (H) 5 - 27 mg/dL Creatinine 0.88 0.40 - 1.00 mg/dL Glucose 153 (H) 65 - 99 mg/dL Calcium 8.6 8.5 - 10.5 mg/dL Total Protein 5.9 (L) 6.0 - 8.0 g/dL Albumin 2.9 (L) 3.2 - 5.3 g/dL Alkaline Phosphatase 91 39 - 130 U/L AST 54 (H) 0 - 41 U/L ALT 94 (H) 0 - 31 U/L Total bilirubin 0.6 0.3 - 1.2 mg/dL eGFR (CKD-EPI)non-race dependent 66 >59 ml/min/1.73sq.m CBC auto differential Collection Time: 04/11/23 12:34 AM Result Value Ref Range White Blood Cells 9.7 4.0 - 11.0 X10E9/L RBC count 3.95 3.80 - 5.20 X10E12/L Hemoglobin 11.4 (L) 11.7 - 15.5 g/dL Hematocrit 34.0 (L) 35 - 47 % MCV 86 80 - 100 fL MCH 28.9 27 - 34 pg MCHC 33.5 32 - 36 g/dL RDW 15.1 (H) 11.5 - 15.0 % Platelets 97 (L) 150 - 450 X10E9/L MPV 10.3 7 - 12 fL % neutrophils 80.7 % % lymphocytes 8.9 % % monocytes 6.0 % % eosinophils 3.8 % % Basophils 0.6 % Neutrophils Absolute (A) 7.9 (H) 1.5 - 6.6 X10E9/L Lymphocytes Absolute 0.9 (L) 1.0 - 3.5 X10E9/L Monocytes Absolute 0.6 0 - 0.9 X10E9/L Eosinophils Absolute 0.4 0.0 - 0.4 X10E9/L Basophils Absolute 0.1 0.0 - 0.2 X10E9/L Magnesium Collection Time: 04/11/23 12:34 AM Result Value Ref Range Magnesium 2.1 1.8 - 2.6 mg/dL Microbiology Results No results found for the last 168 hours. Current Facility-Administered Medications: acetaminophen (TYLENOL) 650 mg/20.3 mL solution 650 mg, 650 mg, nasogastric, Q6H PRN, Christina Freitas DO, 650 mg at 04/11/23 0519 amLODIPine (NORVASC) tablet 10 mg, 10 mg, nasogastric, Daily, Christina Freitas DO, 10 mg at 04/10/23 0839 bisacodyL (DULCOLAX) suppository 10 mg, 10 mg, rectal, Q3 Days, Christina Freitas DO, 10 mg at04/08/23 1312 calcium gluconate IVPB 1000 mg/50 mL (20 mg/mL premix), 1,000 mg, intravenous, PRN OR calcium gluconate IVPB 2000 mg/100 mL (20 mg/mL premix), 2,000 mg, intravenous, PRN OR calcium gluconate 3,000 mg in sodium chloride 0.9 % 100 mL IVPB, 3,000 mg, intravenous, PRN, Ry De Anda MD carvediloL (COREG) tablet 12.5 mg, 12.5 mg, nasogastric, BID, Jordan Hassan MD, 12.5 mg at 04/10/23 2030 dextrose (GLUTOSE) 40 % gel 15 g, 15 g, oral, PRN, Ry De Anda MD dextrose 5 % (D5W) infusion, 100 mL/hr, intravenous, Continuous PRN, Ry De Anda MD dextrose 50 % in water (D50W) 50% solution 25 mL, 25 mL, intravenous, PRN, Ry De Anda MD fondaparinux (ARIXTRA) injection 1.5 mg, 1.5 mg, subcutaneous, Daily, Jack Meraz MD glucagon HCL injection 1 mg, 1 mg, intramuscular, PRN, Ry De Anda MD hydrALAZINE (APRESOLINE) injection 10 mg, 10 mg, intravenous, Q4H PRN, Christina Freitas DO, 10 mg at 04/04/23 0604 ipratropium-albuteroL (DUONEB) 0.5 mg-3 mg(2.5 mg base)/3 mL nebulizer solution 3 mL, 3 mL, nebulization, Q4H PRN, Mohan De Anda MD, 3 mL at 04/09/23 0521 ipratropium-albuteroL (DUONEB) 0.5 mg-3 mg(2.5 mg base)/3 mL nebulizer solution 3 mL, 3 mL, nebulization, TID, Willard Krueger MD labetaloL (NORMODYNE,TRANDATE) injection 10 mg, 10 mg, intravenous, Q5 Min PRN, Christina Freitas DO, 10 mg at 04/09/23 0634 lisinopriL (PRINIVIL,ZESTRIL) tablet 20 mg, 20 mg, nasogastric, Daily, Christina Freitas DO, 20 mg at 04/10/23 0839 magnesium hydroxide (MILK OF MAGNESIA) suspension 30 mL, 30 mL, nasogastric, Q3 Days, Christina Freitas DO, 30 mL at 04/07/23 2152 magnesium sulfate IVPB 2000 mg/50 mL in iso-osmotic water (40 mg/mL premix), 2,000 mg, intravenous,PRN OR magnesium sulfate IVPB 4000 mg/100 mL in iso- osmotic water (40 mg/mL premix), 4,000 mg, intravenous, PRN, Ry De Anda MD melatonin (CIRCADIN) tablet 6 mg, 6 mg, nasogastric, Nightly PRN, Haseeb Mcnamara CHILD WELFARE ASSISTANT-STUDY LEAD, 6 mg at 04/11/23 0049 omeprazole-sodium bicarbonate (KONVOMEP) 2-84 mg/mL oral suspension 40 mg, 40 mg, nasogastric, Daily, Christina Mendozaor, DO, 40 mg at 04/10/23 0838 ondansetron (PF) (ZOFRAN) injection 4 mg, 4 mg, intravenous, Q6H PRN, Christina Leah Swor, DO, 4 mg at 04/06/23 2137 [COMPLETED] piperacillin-tazobactam (ZOSYN) 4.5 g in sodium chloride 0.9 % 50 mL IVPB-MBP, 4.5 g, intravenous, Once, Stopped at 04/06/23 1509 FOLLOWED BY piperacillin-tazobactam (ZOSYN) 3.375 g in sodium chloride 0.9 % 50 mL IVPB-MBP, 3.375 g, intravenous, Q8H, Mai Ho CHILD WELFARE ASSISTANT-STUDY LEAD, Stopped at 04/11/23 0554 potassium chloride (K-TAB,KLOR-CON) CR tablet 20-50 mEq, 20-50 mEq, oral, PRN OR potassium chloride (KAYCIEL) 20 mEq/15 mL solution 20-50 mEq, 20-50 mEq, oral, PRN, Ry De Anda MD, 30 mEq at 04/10/23 2319 potassium chloride IVPB 10 mEq/50 mL in water (0.2 mEq/mL premix), 10 mEq, intravenous, PRN OR potassium chloride IVPB 10 mEq/100 mL in water (0.1 mEq/mL premix), 10 mEq, intravenous, PRN, Ry De Anda MD, Stopped at 04/02/23 1058 saliva stimulant comb. no.3 (BIOTENE) solution 1 spray, 1 spray, oral, PRN, Mai Ho, CHILD WELFARE ASSISTANT-STUDY LEAD, 1 spray at 04/09/23 1022 sennosides-docusate sodium (SENOKOT-S) 8.6-50 mg 2 tablet, 2 tablet, nasogastric, BID, Christina Leah Swor, DO, 2 tablet at 04/10/23 0838 sodium phosphate 20 mmol in sodium chloride 0.9 % 250 mL IVPB, 20 mmol, intravenous, PRN OR sodium phosphate 20 mmol in sodium chloride 0.9 % 100 mL IVPB, 20 mmol, intravenous, PRN OR sod phos di, mono-K phos mono (K-PHOS NEUTRAL) 250 mg tablet 2 tablet, 2 tablet, oral, PRN, Ry De Anda MD sodium chloride 0.9 % infusion, 10 mL/hr, intravenous, Continuous PRN, Ry De Anda MD sodium chloride 0.9 % infusion, 10 mL/hr, intravenous, Continuous PRN, Ry De Anda MD sodium chloride 0.9 % infusion, 10 mL/hr, intravenous, Continuous PRN, Ry De Anda MD, Stopped at 04/02/23 0805 Roula Dao PA-C 04/11/23 0844 Roula Dao PA-C 04/11/23 0845 * Itzel Beach RPH - 04/11/2023 5:56 AM EST [facility] Department of Pharmacy Pharmacist to Physician Communication The dose of fondaparinux has been changed to 1.5 mg every 24 hours per the [facility] approved renal dosing guidelines, based on an estimated creatinine clearance is 44 mL/min (by C-G formula based on SCr of 0.88 mg/dL). Thank you, Itzel Beach RPH * Artemio Ray MD - 04/10/2023 9:52 AM EST NEUROINTERVENTIONAL DAILY PROGRESS NOTE SUBJECTIVE: Ellen Chan is a 78 y.o. female was transferred from an outside hospital where she presented with right lower extremity weakness, a tele stroke alert was activated, initial NIH was 1, neuroimaging revealed left thalamic ICH with IVH ICH score of 2, with a blood pressure of 155/112. She was started on Cardene infusion for a systolic blood pressure less than 140 and was transferred to [facility] neuro ICU for further management. On arrival, there was decline in her mental status requiring repeat CT scan that showed hematoma expansion. Subsequently neurosurgery was taken on board, however, no surgical intervention was warranted. Neuro critical care was taken on board for medical management. Patient was noted to be mildly thrombocytopenic, with return of platelet count to 114, platelet function test demonstrated drug-induced thrombocytopenia. Patient has since been stable with waxing and waning mental status, intermittently agitated. Repeat CT head remained stable. Stroke risk factors: Hypertension Abdominal aortic aneurism. Hyperlipidemia Interval history: Patient was seen and examined at the bedside. No acute events overnight. Afebrile and hemodynamically stable. No change from yesterday. CURRENT MEDICATIONS: dextrose 5 % in water, 100 mL/hr sodium chloride 0.9 %, 10 mL/hr sodium chloride 0.9 %, 10 mL/hr sodium chloride 0.9 %, 10 mL/hr, Last Rate: Stopped (04/02/23804) amLODIPine, 10 mg, nasogastric, Daily bisacodyL, 10 mg, rectal, Q3 Days carvediloL, 12.5 mg, nasogastric, BID fondaparinux (ARIXTRA) injection, 2.5 mg, subcutaneous, Daily ipratropium-albuteroL, 3 mL, nebulization, Q6H While awake lisinopriL, 20 mg, nasogastric, Daily magnesium hydroxide, 30 mL, nasogastric, Q3 Days omeprazole-sodium bicarbonate, 40 mg, nasogastric, Daily [COMPLETED] piperacillin-tazobactam (ZOSYN) IV, 4.5 g, intravenous, Once FOLLOWED BY piperacillin-tazobactam (ZOSYN) IV, 3.375 g, intravenous, Q8H sennosides-docusate sodium, 2 tablet, nasogastric, BID PHYSICAL EXAM: Vital Signs: Blood pressure 113/84, pulse 82, temperature 36.9 C (98.4 F), temperature source Oral,resp. rate 20, height 162.6 cm (5' 4 ), weight 65.6 kg (144 lb 10 oz), SpO2 99%. Respiratory Source: O2 Device: High flow nasal cannula Physical Exam Neurologic Exam NIH Stroke Scale 1a Level of consciousness: 0=alert; keenly responsive 1b. LOC questions: 2=Performs neither task correctly 1c. LOC commands: 1=Performs one task correctly 2. Best Gaze: 0=normal 3. Visual: 0=No visual loss 4. Facial Palsy: 1=Minor paralysis (flattened nasolabial fold, asymmetric on smiling) 5a. Motor left arm: 0=No drift, limb holds 90 (or 45) degrees for full 10 seconds 5b. Motor right arm: 3=No effort against gravity, limb falls 6a. motor left le=No drift, limb holds 90 (or 45) degrees for full 10 seconds 6b Motor right le=No movement 7. Limb Ataxia: 0=Absent 8. Sensory: 0=Normal; no sensory loss 9. Best Language: 3=Mute, global aphasia; no usable speech or auditory comprehension 10. Dysarthria: 2=Severe; patient speech is so slurred as to be unintelligible in the absence of orour of proportion to any dysphagia, or is mute/anarthric 11. Extinction and Inattention: 0=No abnormality 12. Distal motor function: 0=Normal Total: 16 Pre morbid Modified Brittney score: 0 Lab Review Lab Results Component Value Date GLU 113 (H) 04/10/2023 CALCIUM 8.6 04/10/2023 K 3.8 04/10/2023 CO2 28 04/10/2023 BUN 38 (H) 04/10/2023 CREATININE 0.80 04/10/2023 Lab Results Component Value Date WBC 8.9 04/10/2023 HGB 12.0 04/10/2023 HCT 35.6 04/10/2023 MCV 86 04/10/2023 PLT 87 (L) 04/10/2023 Lab Results Component Value Date HGBA1C 5.5 04/01/2023 Lab Results Component Value Date CHOL 243 (H) 04/01/2023 Lab Results Component Value Date LDLCALC 130 (H) 04/01/2023 Lab Results Component Value Date TRIG 99 04/01/2023 Imaging: Ultrasound abdomen limited Result Date: 04/10/2023 Ultrasound abdomen limited COMPARISON: CTA chest 04/06/2023 HISTORY: Thrombocytopenia, rule out hepatosplenomegaly. Technique: Ultrasound of the liver and spleen performed. FINDINGS: Heterogeneity ofthe liver without evidence for focal hepatic lesion. The liver has a normal contour and is normal in size measuring 16.5 cm craniocaudal dimension. Hepatopedal flow in the main portal vein. Gallbladder surgically absent. No perihepatic fluid. Prominence of the common duct measuring up to 9 with diameter consistent with history of cholecystectomy, tapering distally to 4 mm. Spleen is normal in size measuring up to 8.4 cm from diameter with multiple echogenic foci consistent with benign calcifiedgranulomas when correlated with recent CTA chest. Incidental benign- appearing 2.2 cm right renal cyst and benign-appearing 3.1 cm inferior pole left renal cyst with no imaging follow-up required. IMPRESSION: 1. No hepatosplenomegaly. 2. Mild heterogeneity of the liver suggesting possibility of hepatocellular disease. 3. Chronic changes detailed above. Finalized by Julio Cesar Gilliam MD on 04/10/2023 8:27 AM X-ray chest 1 view Result Date: 04/10/2023 CLINICAL INFORMATION: Acute hypoxic respiratory failure. TECHNIQUE: Chest radiograph, single AP view. COMPARISON: 04/09/2023. FINDINGS Enteric tube partially visualized. Aortic stent. Cardiomediastinalsilhouette is unchanged. No measurable pneumothorax or pleural effusion. Patchy upper lobe predominant airspace disease, not significantly changed. IMPRESSION: * No significant interval change. Approved by Resident Dulce Price DO on 04/10/2023 3:43 AM Arianne Rodriges MD have personally reviewed the image(s) and agree with and/or edited the report Finalized by Arianne Rodrigues MD on 04/10/2023 3:[address] brain without contrast Result Date: 04/09/2023 CT BRAIN WO CONT CLINICAL HISTORY: Transient altered level of awareness. Mental status change, unknown cause COMPARISON: 04/06/2023. TECHNIQUE: CT head was performed without contrast using the standard protocol. Automated exposure control was utilized. FINDINGS: Persistent hyperdense hemorrhage centered in the left posterior thalamus with intraventricular extension, hematoma measures approximately 4.6 cm, similar to prior. Mild ventriculomegaly. Subarachnoid hemorrhage in the right sylvian fissure appears less pronounced than on prior. Similar decreasing conspicuity of subarachnoid hemorrhagealong the dorsolateral left frontal lobe. Mass effect with left to right midline shift, 0.7 cm of the pineal gland, similar to prior. Moderate global parenchymal volume loss. Unremarkable temporal bone structures, visualized suprahyoid neck, scalp soft tissues. Lens replacement. Unremarkable paranasal sinuses. IMPRESSION: Minimally changed left thalamic parenchymal hemorrhage with intraventricular extension. Unchanged mild ventriculomegaly. Slightly decreasing conspicuity/extent of subarachnoidhemorrhage. All CT scans at this facility use dose modulation, iterative reconstruction, and/or weight based dosing when appropriate to reduce radiation dose to as low as reasonably achievable. 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 Patient was accepted as a transfer from an outside hospital for right-sided weakness. Initial NIH was 1 (right lower extremity weakness), not on blood thinners. On arrival, her neuro exam worsened deeming a repeat head CT with hematoma expansion. Neurosurgery was taken on board, deferred plans for neurosurgical intervention. Neuro critical care remains on board for fluctuating mental status and medical management. Concern for aspiration pneumonia, started on Abx and CC following Hypernatremia Thrombocytopenia, oncology following Stroke risk factors Hypertension Abdominal aortic aneurysm. Hyperlipidemia. Stroke work up: MRI brain with and without contrast: Pending Echocardiogram: EF 60-65% mildly dilated aortic aorta, trace mitral and tricuspid regurgitation. Hemoglobin A1c: 5.5 LDL: 130 Routine EEG: Left posterior parietotemporal slowing. Plan: Will consider MRA vs CTA in the future Oncology for thrombocytopenia Zosyn for pneumonia per critical care PEG timing TBD per surgery but awaiting understandably waiting for medical improvement prior cap systolic blood pressure 140, use p.r.n. antihypertensive medications. NG for PO meds and tube feeding Stopped free water flushes and D2.5 infusion due to drop in sodium Plan on started statins in the outpatient setting. -VTE prophylaxis with subQ heparin. -GI prophylaxis using Pepcid, mechanical VTE prophylaxis, p.r.n. pain medications. Patient was discussed with Dr. Burgess Artemio Ray MD Neurology PGY-[address] [place] [address] 9:52 AM 04/10/23 This patient is being followed by the Neurology Resident service. Contact attending directly during these hours: Saturday to 7:30-8:30 A.M. to Saturday 12-1:00 p.m. Primary Neurology service: [phone] Consult neurology service: [phone] Resident Stroke Service: [phone] If the patient belongs to the [facility] service please contact the [facility] directly. Associated attestation - Dmitriy Couch MD - 04/10/2023 1:02 PM EST I saw the patient on the same day as the resident. I personally obtained the history, reviewed the data, examined the patient, and formulated the impression and plan. I personally reviewed the patient's images and made my own independent findings. I reviewed the residents note including the historyof present illness, family history, social history, review of systems, vital signs, physical examination, laboratory studies, imaging, impression, plan and agree with the documented findings and planof care. I spent more than 35 minutes in evaluation of this patient including more than 50% in counseling and coordination of care. The patient is being evaluated for stroke and is at risk for neurological deterioration. 78 year old with a history of htn p/w constellation of neurological symptoms Ct with eft subcortical bleed large, personally reviewed H/c c/b pneumonia Aspiration pneumonia Ongoing assessment for intubation Dysphagia, plan for peg when medically stable Exam: lethargic, right weakness, trace left squeeze. More awake and interactive today. Hematology evaluating thrombocytopenia WBC nml 8.9 Na up (free water flushes) - [facility] monitoring Abdominal us for thrombocytopenia workup Impression: hypertensive ich Monitor respiratory status Control bp Peg ordered - pending medical stable Hi-flow o2 & Unasyn for aspiration pneumonia Additional imaging to rule out atypical causes of ich Dvt prophylaxis Appreciate hematology evaluation Dmitriy Couch MD PhD Vascular Neurology Neurointerventional Surgery * Haseeb Mcnamara APRN-SHAMEKA - 04/10/2023 9:27 AM EST Images from the original note were not included. CRITICAL CARE PROGRESS NOTE Name: Ellen Chan Age: 78 y.o. Date: 04/10/23 Length of Stay 9 day(s) Assessment: Acute left thalamic ICH with IVH Acute hypoxic respiratory failure now on HFNC in the setting of multifocal pneumonia as well as risk for airway compromise due to neurological failure form above. Multifocal pneumonia, likely aspiration induced Neutrophilic Leukocytosis, trending down Hypernatremia with free water deficit JOHN, improved Thrombocytopenia, stable 84 this am (74 yesterday) Essential hypertension GERD AAA s/p repair 2018 Plan: 1. Continue HFNC. Titrate as tolerated. Risk for intubation remains, continue to monitor airway, neurological assessments, secretion burden. 2. Continue zosyn for PNA 3. Hematology consult per primary service. Check HIT panel this am. Continue to monitor. 4. CTH yesterday. No objection for mri if benefit outweighs risk and if it will change any treatment course at this time. Patient is at risk for oxygenation and airway issues with laying flat. 5. Continue free water at this time, lytes q6h 6. Aspiration precautions, HOB 45 degrees. 7. DVT and stress ulcer prophylaxis- fondaparinux per hematology, omeprazole 8. Electrolyte sliding scale per protocol Plan discussed with attending loaders , patient/family and bedside RN. Haseeb Mcnamara, CHILD WELFARE ASSISTANT-STUDY LEAD Acute Care Nurse Practitioner [facility] Contact via patient touch Subjective: This is a 78 yo female admitted to the icu s/p acute left thalamic IPH. NOIs. Examined while resting in bed. She opens her eyes to verbal but no commands or verbal response at this time. No distress noted, no signs of pain or discomfort. Hospital Problem: Principal Problem: 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CMS-HCC) OBJECTIVE: General Appearance: In no acute distress and ill-appearing Lungs: effort normal rate normal rhonchi Lungs comment: Course breath sounds, remains on HFNC Heart: rate normal regular rhythm S1 normal S2 normal Abdomen: soft no distension bowel sounds hypoactive no tenderness Neuro: Positive for right hemiparesis. PERRL Neuro comment: Left gaze preference, moves left side spontaneously, no movement to right side. Opens eyes to verbal, no verbal responses and no commands Vital Signs Temp: [36.5 C (97.7 F)-37.2 C (99 F)] 37.2 C (99 F) Pulse: [80-99] 80 Resp: [17-49] 20 BP: (90-136)/(64-93) 106/71 FiO2 (%): [50 %-100 %] 50 % SpO2: [91 %-100 %] 100 % O2 Device: High flow nasal cannula O2 Flow Rate (L/min): [40 L/min] 40 L/min O2 Device: High flow nasal cannula I/O last 3 completed shifts: In: 3598.5 [I.V.:1404; NG/GT:2131; IV Piggyback:63.5] Out: 3795 [Urine:3795] Results from last 3 days Lab Units 04/10/23 0620 04/10/23 00404/09/23 1715 04/09/23 0812 04/09/23 0158 04/08/23 1340 04/08/23 0418 BUN mg/dL -- 38* -- -- 33* -- 54* CREATININE mg/dL -- 0.80 -- -- 0.74 -- 0.97 POTASSIUM mmol/L 3.8 3.8 3.9 3.4* 3.5 3.5 3.5 CO2 mmol/L -- 28 -- -- 26 -- 29 CHLORIDE mmol/L -- 115* -- -- 113* -- 117* MAGNESIUM mg/dL -- 2.4 -- 1.9 -- -- -- AST U/L -- 48* -- -- 35 -- 40 ALT U/L -- 88* -- -- 64* -- 60* ALK PHOS U/L -- 109 -- -- 107 -- 105 Results from last 3 days Lab Units 04/09/236 INR 1.1 PROTIME sec 13.3* Results from last 3 days Lab Units 04/10/23 00404/09/23 0158 04/08/23 0418 WBC X10E9/L 8.9 10.5 11.8* HEMOGLOBIN g/dL 12.0 11.5* 12.0 HEMATOCRIT % 35.6 33.6* 36.4 PLATELETS X10E9/L 87* 74* 66* MCV fL 86 86 87 MCH pg 29.0 29.3 28.7 MCHC g/dL 33.6 34.1 33.0 RDW % 15.0 15.4* 15.9* EOS ABS AUTO X10E9/L 0.2 0.2 0.1 Microbiology Results Procedure Component Value Units Date/Time Resp Pathogens Panel/SARS CoV-2 [[id number]] Collected: 04/03/23 1000 Specimen: Nasopharynx Updated: 04/03/23 1149 Specimen Source NASO PHARYNX Adenovirus Detection by PCR Not Detected Coronavirus 229e Not Detected Coronavirus hku1 Not Detected Coronavirus nl63 Not Detected Coronavirus oc43 Not Detected Human metapneumovirus Not Detected Rhinovirus/enterovirus Not Detected Influenza A Not Detected Influenza B Not Detected Parainfluenza 1 Not Detected Parainfluenza 2 Not Detected Parainfluenza 3 Not Detected Parainfluenza 4 Not Detected Respiratory syncytial virus Not Detected Bordetella parapertussis Not Detected Bordetella pertussis Not Detected Chlamydophila pneumophilia Not Detected Mycoplasma pneumoniae Not Detected SARS COV 2 Not Detected Mrsa Pcr nasal swab [[id number]] Collected: 04/03/23 1000 Specimen: Nasal Updated: 04/03/23 1200 Mrsa PCR Negative Results from last 7 days Lab Units 04/10/23 0041 04/09/23 0158 04/08/23 0418 04/07/23 1154 04/07/23 0334 04/06/23 0342 04/05/23 0342 04/04/23 0330 BEDSIDE GLUCOSE mg/dL -- -- -- 111* -- -- -- -- GLUCOSE mg/dL 113* 155* 135* -- 112* 106* 169* 147* Microbiology Results Procedure Component Value Units Date/Time Resp Pathogens Panel/SARS CoV-2 [[id number]] Collected: 04/03/23 1000 Specimen: Nasopharynx Updated: 04/03/23 1149 Specimen Source NASO PHARYNX Adenovirus Detection by PCR Not Detected Coronavirus 229e Not Detected Coronavirus hku1 Not Detected Coronavirus nl63 Not Detected Coronavirus oc43 Not Detected Human metapneumovirus Not Detected Rhinovirus/enterovirus Not Detected Influenza A Not Detected Influenza B Not Detected Parainfluenza 1 Not Detected Parainfluenza 2 Not Detected Parainfluenza 3 Not Detected Parainfluenza 4 Not Detected Respiratory syncytial virus Not Detected Bordetella parapertussis Not Detected Bordetella pertussis Not Detected Chlamydophila pneumophilia Not Detected Mycoplasma pneumoniae Not Detected SARS COV 2 Not Detected Mrsa Pcr nasal swab [[id number]] Collected: 04/03/23 1000 Specimen: Nasal Updated: 04/03/23 1200 Mrsa PCR Negative Ventilator Settings FiO2 (%): 50 % Lines/Drains Peripheral IV 04/06/23 Anterior;Left;Upper Arm (Active) Line Status Infusing 04/10/23409 Site Assessment Clean;Intact;Dry 04/10/23409 Dressing Type Occlusive;Transparent 04/10/23409 Dressing Status Dry;Clean;Intact 04/10/23409 Dressing Intervention Dressing changed 04/06/231999 Dressing Change Due (Non-Gauze) 04/13/23 04/06/231999 NG/OG Tube 04/03/23 Nasogastric Left nostril (Active) Placement Verification External length measured 04/10/23409 Status Continuous tube feeding 04/10/23409 Site Assessment Clean;Dry;Intact 04/10/23409 Tube Site Care Completed 04/10/23409 Secured at (cm) 55 cm 04/10/23409 Securement Method Adhesive tape 04/10/23409 Dressing Status/Interventions Clean;Dry;Intact 04/07/23 1200 Flushed With Tap water 04/09/231999 Flush or Free Water (mL) 300 ml 04/09/231999 Feeding? (Yes or No) No 04/10/23409 Urinary Catheter 04/02/23 (Active) Catheter Status Patent 04/10/23409 Site Assessment Clean;Skin intact 04/10/23409 Collection Container Standard drainage bag/container 04/10/23409 Securement Method Securing device (Describe) 04/10/23409 Tamper Evident Seal Intact Yes 04/10/23409 Reason for Continuing Strict I&O in critically ill patient 04/10/23409 Urine Color Yellow/straw 04/10/23409 Urine Appearance Clear 04/10/23409 Output (mL) 50 mL 04/10/23 050 I/O last 3 completed shifts: In: 3598.5 [I.V.:1404; NG/GT:2131; IV Piggyback:63.5] Out: 3795 [Urine:3795] No intake/output data recorded. amLODIPine, 10 mg, nasogastric, Daily bisacodyL, 10 mg, rectal, Q3 Days carvediloL, 12.5 mg, nasogastric, BID fondaparinux (ARIXTRA) injection, 2.5 mg, subcutaneous, Daily ipratropium-albuteroL, 3 mL, nebulization, Q6H While awake lisinopriL, 20 mg, nasogastric, Daily magnesium hydroxide, 30 mL, nasogastric, Q3 Days melatonin, 6 mg, nasogastric, Nightly omeprazole-sodium bicarbonate, 40 mg, nasogastric, Daily [COMPLETED] piperacillin-tazobactam (ZOSYN) IV, 4.5 g, intravenous, Once FOLLOWED BY piperacillin-tazobactam (ZOSYN) IV, 3.375 g, intravenous, Q8H sennosides-docusate sodium, 2 tablet, nasogastric, BID dextrose 5 % in water, 100 mL/hr sodium chloride 0.9 %, 10 mL/hr sodium chloride 0.9 %, 10 mL/hr sodium chloride 0.9 %, 10 mL/hr, Last Rate: Stopped (04/02/23804) Cc time 30 mins Haseeb Mcnamara APRN-STUDY LEAD 04/10/23 0944 * Artemio Ray MD - 04/09/2023 9:14 AM EST NEUROINTERVENTIONAL DAILY PROGRESS NOTE SUBJECTIVE: Ellen Chan is a 78 y.o. female was transferred from an outside hospital where she presented with right lower extremity weakness, a tele stroke alert was activated, initial NIH was 1, neuroimaging revealed left thalamic ICH with IVH ICH score of 2, with a blood pressure of 155/112. She was started on Cardene infusion for a systolic blood pressure less than 140 and was transferred to [facility] neuro ICU for further management. On arrival, there was decline in her mental status requiring repeat CT scan that showed hematoma expansion. Subsequently neurosurgery was taken on board, however, no surgical intervention was warranted. Neuro critical care was taken on board for medical management. Patient was noted to be mildly thrombocytopenic, with return of platelet count to 114, platelet function test demonstrated drug-induced thrombocytopenia. Patient has since been stable with waxing and waning mental status, intermittently agitated. Repeat CT head remained stable. Stroke risk factors: Hypertension Abdominal aortic aneurism. Hyperlipidemia Interval history: Patient was seen and examined at the bedside. No acute events overnight. Afebrile and hemodynamically stable. Patient's clinical status is the same as yesterday. CURRENT MEDICATIONS: dextrose 5 % in water, 100 mL/hr sodium chloride 0.9 %, 10 mL/hr sodium chloride 0.9 %, 10 mL/hr sodium chloride 0.9 %, 10 mL/hr, Last Rate: Stopped (04/02/23804) amLODIPine, 10 mg, nasogastric, Daily bisacodyL, 10 mg, rectal, Q3 Days carvediloL, 12.5 mg, nasogastric, BID heparin (porcine), 5,000 Units, subcutaneous, Q8H DIO ipratropium-albuteroL, 3 mL, nebulization, Q6H While awake lisinopriL, 20 mg, nasogastric, Daily magnesium hydroxide, 30 mL, nasogastric, Q3 Days magnesium sulfate, 2,000 mg, intravenous, Once melatonin, 6 mg, oral, Nightly omeprazole-sodium bicarbonate, 40 mg, nasogastric, Daily [COMPLETED] piperacillin-tazobactam (ZOSYN) IV, 4.5 g, intravenous, Once FOLLOWED BY piperacillin-tazobactam (ZOSYN) IV, 3.375 g, intravenous, Q8H sennosides-docusate sodium, 2 tablet, nasogastric, BID PHYSICAL EXAM: Vital Signs: Blood pressure (!) 136/96, pulse 75, temperature 36.7 C (98.1 F), temperature source Oral, resp. rate 22, height 162.6 cm (5' 4 ), weight 65.6 kg (144 lb 10 oz), SpO2 91%. Respiratory Source: O2 Device: Nasal cannula Physical Exam Neurologic Exam NIH Stroke Scale 1a Level of consciousness: 0=alert; keenly responsive 1b. LOC questions: 2=Performs neither task correctly 1c. LOC commands: 1=Performs one task correctly 2. Best Gaze: 0=normal 3. Visual: 0=No visual loss 4. Facial Palsy: 1=Minor paralysis (flattened nasolabial fold, asymmetric on smiling) 5a. Motor left arm: 0=No drift, limb holds 90 (or 45) degrees for full 10 seconds 5b. Motor right arm: 3=No effort against gravity, limb falls 6a. motor left le=No drift, limb holds 90 (or 45) degrees for full 10 seconds 6b Motor right le=No movement 7. Limb Ataxia: 0=Absent 8. Sensory: 0=Normal; no sensory loss 9. Best Language: 3=Mute, global aphasia; no usable speech or auditory comprehension 10. Dysarthria: 2=Severe; patient speech is so slurred as to be unintelligible in the absence of orour of proportion to any dysphagia, or is mute/anarthric 11. Extinction and Inattention: 0=No abnormality 12. Distal motor function: 0=Normal Total: 16 Pre morbid Modified Houston score: 0 Lab Review Lab Results Component Value Date GLU 155 (H) 04/09/2023 CALCIUM 8.4 (L) 04/09/2023 K 3.4 (L) 04/09/2023 CO2 26 04/09/2023 BUN 33 (H) 04/09/2023 CREATININE 0.74 04/09/2023 Lab Results Component Value Date WBC 10.5 04/09/2023 HGB 11.5 (L) 04/09/2023 HCT 33.6 (L) 04/09/2023 MCV 86 04/09/2023 PLT 74 (L) 04/09/2023 Lab Results Component Value Date HGBA1C 5.5 04/01/2023 Lab Results Component Value Date CHOL 243 (H) 04/01/2023 Lab Results Component Value Date LDLCALC 130 (H) 04/01/2023 Lab Results Component Value Date TRIG 99 04/01/2023 Imaging: X-ray chest 1 view Result Date: 04/09/2023 Single view chest History: Wheezing Comparison: 04/09/2023 Findings: 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 Stable cardiomediastinal silhouette. Enteric tube over the distal stomach. Similar patchy opacities of upper lobe predominance. Trace effusions. No pneumothorax. Impression: Similar patchy opacities of the upper lobe predominance. Perhaps trace effusions. Finalized by Caro Gilliland MD on 04/09/2023 6:24 AM X-ray chest 1 view Result Date: 04/09/2023 History: Pneumonia Technique: A portable single frontal view the chest was obtained. Comparison: 04/08/2023 Findings: Hazy infiltrative changes are again seen in the right upper lobe. The left lung field appears clear from active process. The heart size is within normal limits. A endograft is seen descending thoracic aorta. Aneurysmal dilatation of the aortic arch is again demonstrated. Enteric tube is again seen with its tip in the stomach. Impression: * Right upper lobe infiltrate, similar to the prior study. * Tortuosity of the thoracic aorta with aneurysmal dilatation of the arch and an endograft in the descending thoracic aorta. 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 Patient was accepted as a transfer from an outside hospital for right-sided weakness. Initial NIH was 1 (right lower extremity weakness), not on blood thinners. On arrival, her neuro exam worsened deeming a repeat head CT with hematoma expansion. Neurosurgery was taken on board, deferred plans for neurosurgical intervention. Neuro critical care remains on board for fluctuating mental status and medical management. Concern for aspiration pneumonia, started on Abx and CC following Hypernatremia Stroke risk factors Hypertension Abdominal aortic aneurysm. Hyperlipidemia. Stroke work up: MRI brain with and without contrast: Pending Echocardiogram: EF 60-65% mildly dilated aortic aorta, trace mitral and tricuspid regurgitation. Hemoglobin A1c: 5.5 LDL: 130 Routine EEG: Left posterior parietotemporal slowing. 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 antihypertensive medications. NG for PO meds and tube feeding Stopped free water flushes and D2.5 infusion due to drop in sodium Plan on started statins in the outpatient setting. -VTE prophylaxis with subQ heparin. -GI prophylaxis using Pepcid, mechanical VTE prophylaxis, p.r.n. pain medications. Patient was discussed with Dr. Burgess Artemio Ray MD Neurology PGY-3 [facility] 9:14 AM 04/09/23 This patient is being followed by the Neurology Resident service. Contact attending directly during these hours: Saturday to 7:30-8:30 A.M. to Saturday 12-1:00 p.m. Primary Neurology service: [phone] Consult neurology service: [phone] Resident Stroke Service: [phone] If the patient belongs to the [facility] service please contact the [facility] directly. Associated attestation - Dmitriy Couch MD - 04/10/2023 6:21 AM EST I saw the patient on the same day as the resident. I personally obtained the history, reviewed the data, examined the patient, and formulated the impression and plan. I personally reviewed the patient's images and made my own independent findings. I reviewed the residents note including the historyof present illness, family history, social history, review of systems, vital signs, physical examination, laboratory studies, imaging, impression, plan and agree with the documented findings and planof care. I spent more than 35 minutes in evaluation of this patient including more than 50% in counseling and coordination of care. The patient is being evaluated for stroke and is at risk for neurological deterioration. 78 year old with a history of htn p/w constellation of neurological symptoms Ct with eft subcortical bleed large, personally reviewed H/c c/b pneumonia Aspiration pneumonia Ongoing assessment for intubation Dysphagia, plan for peg when medically stable Exam: lethargic, right weakness, trace left squeeze. WBC downtrending Na up to 158, now down Impression: hypertensive ich Monitor respiratory status Control bp peg Hi-flow o2 & Unasyn for aspiration pneumonia Dmitriy Couch MD PhD Vascular Neurology Neurointerventional Surgery * CLAIR Rosario - 04/09/2023 9:04 AM EST NUTRITION ADULT FOLLOW UP NUTRITION ASSESSMENT: Patient History: Brief Clinical Summary: Patient initially presented to OSH with right sided weakness. 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 Pt remains NPO, not ready for oral diet per PIPE BENDER. Biochemical Data, Medical Tests, and Procedures: 04/01 CT brain: Enlarging left basal ganglia intraparenchymal hemorrhage with worsening intraventricular extension. 04/01 Soft and Bite Sized and no liquids. However, per MD hold off on oral diet d/t mentation. VFSSon hold. 04/04- remains NPO 04/08- D2.5 stopped due to decrease in Na levels, free water continues Labs: Results from last 3 days Lab Units 04/09/23 0812 04/09/23 0158 04/08/23 2203 04/08/23 1747 04/08/23 1340 04/08/23 0418 04/07/23 0334 SODIUM mmol/L 146 146 148* < > 155* 158* 157* POTASSIUM mmol/L 3.4* 3.5 -- -- 3.5 3.5 4.0 CHLORIDE mmol/L -- 113* -- -- -- 117* 116* CO2 mmol/L -- 26 -- -- -- 29 30 BUN mg/dL -- 33* -- -- -- 54* 53* CREATININE mg/dL -- 0.74 -- -- -- 0.97 1.11* CALCIUM mg/dL -- 8.4* -- -- -- 8.9 9.2 ALBUMIN g/dL -- 3.1* -- -- -- 3.2 3.5 ALK PHOS U/L -- 107 -- -- -- 105 104 ALT U/L -- 64* -- -- -- 60* 56* AST U/L -- 35 -- -- -- 40 39 < > = values in this interval not displayed. Results from last 7 days Lab Units 04/09/23 0158 04/08/23 0418 04/07/23 1154 04/07/23 0334 04/06/23 0342 04/05/23 03404/04/23 0330 BEDSIDE GLUCOSE mg/dL -- -- 111* -- -- -- -- GLUCOSE mg/dL 155* 135* -- 112* 106* 169* 147* Results from last 3 days Lab Units 04/09/23 0158 04/08/238 04/07/23 0334 WBC X10E9/L 10.5 11.8* 14.8* HEMOGLOBIN g/dL 11.5* 12.0 12.7 HEMATOCRIT % 33.6* 36.4 38.6 PLATELETS X10E9/L 74* 66* 58* MCV fL 86 87 87 Results from last 3 days Lab Units 04/09/23 0812 MAGNESIUM mg/dL 1.9 No data from last 3 days. Results from last 3 days Lab Units 04/09/23 0158 04/08/23 0418 04/07/23 0334 TOTAL BILIRUBIN mg/dL 0.7 0.7 0.9 Lab Results Component Value Date HGBA1C 5.5 04/01/2023 No results found for: IRON , TIBC , FERRITIN No results found for: IRONSAT Lab Results Component Value Date CHOL 243 (H) 04/01/2023 Lab Results Component Value Date CHDL 2.6 04/01/2023 Lab Results Component Value Date HDL 93 04/01/2023 Lab Results Component Value Date LDLCALC 130 (H) 04/01/2023 Lab Results Component Value Date TRIG 99 04/01/2023 Lab Results Component Value Date VERYLOWLIP 20 04/01/2023 No results found for: [id number] No results found for: FOLATE No results found for: VITD25 Comments (labs): K-3.4 Medications/ Parenteral: Current Facility-Administered Medications Medication Dose Route Frequency Provider Last Rate Last Admin acetaminophen (TYLENOL) 650 mg/20.3 mL solution 650 mg 650 mg nasogastric Q6H PRN Christina Freitas DO amLODIPine (NORVASC) tablet 10 mg 10 mg nasogastric Daily Christina Freitas DO 10 mg at 04/08/23 0822 bisacodyL (DULCOLAX) suppository 10 mg 10 mg rectal Q3 Days Christina Freitas DO 10 mg at 04/08/23 1312 calcium gluconate IVPB 1000 mg/50 mL (20 mg/mL premix) 1,000 mg intravenous PRN Ry De Anda MD Or calcium gluconate IVPB 2000 mg/100 mL (20 mg/mL premix) 2,000 mg intravenous PRN Ry De Anda MD Or calcium gluconate 3,000 mg in sodium chloride 0.9 % 100 mL IVPB 3,000 mg intravenous PRN Ry De Anda MD carvediloL (COREG) tablet 12.5 mg 12.5 mg nasogastric BID Jordan Hassan MD 12.5 mg at 04/08/232113 dextrose (GLUTOSE) 40 % gel 15 g 15 g oral PRN Ry De Anda MD dextrose 5 % (D5W) infusion 100 mL/hr intravenous Continuous PRN Ry De Anda MD dextrose 50 % in water (D50W) 50% solution 25 mL 25 mL intravenous PRN Ry De Anda MD glucagon HCL injection 1 mg 1 mg intramuscular PRN Ry De Anda MD heparin (porcine) injection 5,000 Units 5,000 Units subcutaneous Q8H DIO Jordan Hassan MD 5,000 Units at 04/08/232113 hydrALAZINE (APRESOLINE) injection 10 mg 10 mg intravenous Q4H PRN Christina Freitas, DO 10 mg at 04/04/23 0604 ipratropium-albuteroL (DUONEB) 0.5 mg-3 mg(2.5 mg base)/3 mL nebulizer solution 3 mL 3 mL nebulization Q4H PRN Mohan De Anda MD 3 mL at 04/09/23 0521 ipratropium-albuteroL (DUONEB) 0.5 mg-3 mg(2.5 mg base)/3 mL nebulizer solution 3 mL 3 mL nebulization Q6H While awake Christina Freitas, DO 3 mL at 04/09/23 0859 labetaloL (NORMODYNE,TRANDATE) injection 10 mg 10 mg intravenous Q5 Min PRN Christina Freitas, DO 10 mg at 04/09/23 0634 lisinopriL (PRINIVIL,ZESTRIL) tablet 20 mg 20 mg nasogastric Daily Christina Freitas, DO 20 mg at 04/08/23 0823 magnesium hydroxide (MILK OF MAGNESIA) suspension 30 mL 30 mL nasogastric Q3 Days Christina Mendozaor, DO 30 mL at 04/07/23 2152 magnesium sulfate IVPB 2000 mg/50 mL in iso-osmotic water (40 mg/mL premix) 2,000 mg intravenous PRN Ry De Anda MD Or magnesium sulfate IVPB 4000 mg/100 mL in iso-osmotic water (40 mg/mL premix) 4,000 mg intravenous PRN Ry De Anda MD magnesium sulfate IVPB 2000 mg/50 mL in iso-osmotic water (40 mg/mL premix) 2,000 mg intravenous Once Mai Ho APRN-SHAMEKA melatonin (CIRCADIN) tablet 6 mg 6 mg oral Nightly Jordan Hassan MD 6 mg at 04/08/232113 omeprazole-sodium bicarbonate (KONVOMEP) 2-84 mg/mL oral suspension 40 mg 40 mg nasogastric Daily Christina Leah Swor, DO 40 mg at 04/08/23 111 ondansetron (PF) (ZOFRAN) injection 4 mg 4 mg intravenous Q6H PRN Christina Mendozaor, DO 4 mg [id number] piperacillin-tazobactam (ZOSYN) 3.375 g in sodium chloride 0.9 % 50 mL IVPB-MBP 3.375 g [id number] Mai Ho APRN-STUDY LEAD Stopped at 04/09/23 0600 potassium chloride (K-TAB,KLOR-CON) CR tablet 20-50 mEq 20-50 mEq oral PRN Ry De Anda MD Or potassium chloride (KAYCIEL) 20 mEq/15 mL solution 20-50 mEq 20-50 mEq oral PRN Ry De Anda MD 30 mEq at 04/09/23 0322 potassium chloride IVPB 10 mEq/50 mL in water (0.2 mEq/mL premix) 10 mEq intravenous PRN Ry De Anda MD Or potassium chloride IVPB 10 mEq/100 mL in water (0.1 mEq/mL premix) 10 mEq intravenous PRN Ry De Anda MD Stopped at 04/02/23 1058 QUEtiapine (SEROquel) tablet 12.5 mg 12.5 mg oral Nightly PRN Zay Chapa MD, MD 12.5 mg at12131 sennosides-docusate sodium (SENOKOT-S) 8.6-50 mg 2 tablet 2 tablet nasogastric BID Christina Sandeeor, DO 2 tablet at 04/08/232113 sodium phosphate 20 mmol in sodium chloride 0.9 % 250 mL IVPB 20 mmol intravenous PRN Ry De Anda MD Or sodium phosphate 20 mmol in sodium chloride 0.9 % 100 mL IVPB 20 mmol intravenous PRN Ry De Anda MD Or sod phos di, mono-K phos mono (K-PHOS NEUTRAL) 250 mg tablet 2 tablet 2 tablet oral PRN Ry De Anda MD sodium chloride 0.9 % infusion 10 mL/hr intravenous Continuous PRN Ry De Anda MD sodium chloride 0.9 % infusion 10 mL/hr intravenous Continuous PRN Ry De Anda MD sodium chloride 0.9 % infusion 10 mL/hr intravenous Continuous PRN Ry De Anda MD Stopped at 04/02/23 0805 Nutrition Focused Physical Findings 2040ml UO, 1 stool yesterday Skin (per nursing flow sheets): Skin Color: Pale (04/09/23 0800) Skin Temp: Warm; Dry (04/09/23 08) Wound (per nursing flow sheets): Gastrointestinal (per nursing flow sheets): Abdomen Assessment: Soft; Rounded (04/09/23 08) Last BM Date: 04/08/23 (04/09/23 08) RUQ Bowel Sounds: Hypoactive (04/09/23 08) LUQ Bowel Sounds: Hypoactive (04/09/23 08) RLQ Bowel Sounds: Hypoactive (04/09/23 08) LLQ Bowel Sounds: Hypoactive (04/09/23 08) GI Symptoms: Constipation (04/08/23 1200) Relieved by: Antiemetic (04/06/23 2137) Edema (per nursing flow sheets): Intake/ Output Last 24 hrs: Intake/Output Summary (Last 24 hours) at 04/09/2023 0905 Last data filed at 04/09/2023 0800 Gross per 24 hour Intake 4435.52 ml Output 2960 ml Net 1475.52 ml Food/Nutrition Related History: Diet/ Nutrition Order Review: Dietary Orders (From admission, onward) Start Ordered 04/07/23 1200 Free water Every 4 hours Question Answer Comment Amount in mL 300 Tube Type: Nasogastric or Oral gastric feeding tube 04/07/23 0809 04/02/23 1509 Tube feeding No tray-Continuous Tube feeding No Tray-Continuous; Nasogastric or Oral gastric feeding tube; Standard 1.5 kcal; 15; 10; Every 8 hours; 45 Continuous Comments: Formula: Osmolite 1.5 References: Formulary Card Question Answer Comment Diet Type: Tube feeding No Tray-Continuous Tube Type: Nasogastric or Oral gastric feeding tube Tube Feeding Formula: Standard 1.5 kcal Tube Feeding Start Rate (mL/hour): 15 Increase Rate by (mL/hour): 10 Frequency of Rate increase: Every 8 hours Goal Rate (mL/hour): 45 04/02/23 1509 Inpatient Nutrition Support History: TF 04/02- Osmolite 1.5 04/04- at Osmolite 1.5 goal 45ml/hr 04/08- D2.5W stopped TF: Osmolite 1.5 at 45 ml/hr provides 1620 Kcal daily 68 gm protein daily 823 mL Free H2O daily- free water flushes providing 1800ml /day ( 300ml q 4 hrs) 100% RDI Anthropometrics: Ht Readings from Last 1 Encounters: 04/01/23 162.6 cm (5' 4 ) Last 3 Weight Readings 04/07/23 0000 04/08/23 0000 04/09/23 0200 Weight: 66.5 kg (146 lb 9.7 oz) 65.8 kg (145 lb 1 oz) 65.6 kg (144 lb 10 oz) Admit Weight: 67.1kg (04/01; bed scale) Almond Body Weight: 54.5kg Weight Changes: down by 1.5kg from admit Admit Body Mass Index: 25.02 Current Body Mass Index: Body mass index is 24.82 kg/m . Comparative Standards: Estimated Energy Needs: 3403-6276 kcals daily. Method and weight used: 25-30 kcal/kg IBW (54.5kg) Estimated Protein Needs: 65-110 grams daily. Method and weight used: 1.2-2g protein/kg IBW Estimated Fluid Needs: 0272-2363 ml daily. Method weight used: 1ml/kcal Comments: General needs NUTRITION DIAGNOSIS: Intake Diagnosis: Inadequate protein-energy intake (NI 5.3) TF meeting needs NUTRITION INTERVENTIONS: Enteral Nutrition: Continue Osmolite 1.5 at 1 goal rate of 45ml/hr. This provides 1080ml formula, 1620kcals, 68gm protein, 823ml free water, and 100% RDI's for vitamins/minerals. RECOMMENDATIONS: Monitor labs and replace PRN. May consider decreasing free water flushes: 200ml 4x/day if Na decreases further to borderline low. GOAL(S): Meet estimated calorie and protein needs. NUTRITION MONITORING AND EVALUATION: TF tolerance, weight trend, labs, POC and overall status. Balbina Neil R.D, L.D. Clinical dietitian Patient Touch extension:[phone] Direct Dial phone number: [phone] 04/09/23 9:15 AM * KOTA Chowdhury - 04/09/2023 6:21 AM EST Images from the original note were not included. CRITICAL CARE PROGRESS NOTE Name: Ellen Chan Age: 78 y.o. Date: 04/09/23 Length of Stay 8 day(s) Assessment & Plan Assessment Acute left ophthalmic ICH with IVH Acute respiratory insufficiency in the setting of multifocal pneumonia, audible wheezing noted thismorning Multifocal pneumonia Leukocytosis, resolved Hypernatremia, improved JOHN, resolved Thrombocytopenia Essential hypertension GERD AAA s/p repair Plan Wean supplemental oxygen as tolerated to maintain oxygen saturation above 92% Scheduled Duo-Nebs Bronchopulmonary hygiene with oscillation vest Lasix 40 mg once Continue zosyn for HAP, day 4 of 7 Continue antihypertensive regimen, maintain SBP <140 per Primary Serial sodiums PEG tube placement pending per Gen Surg PT/OT/ST Strict I&O Tolerating TFs/FW through PEG, hold FW d/t drop in sodium Bowel regimen GI Prophylaxis: Omeprazole DVT Prophylaxis: EPCs and SQ Heparin Replace electrolytes per ICU sliding scale Left hand mitt for safety of lines/tubes Discussed POC with bedside RN and ICU attending Note patient [id number]-A, okay for intubation short-term for procedures only CXR 04/09/22 Subjective Patient reportedly started to have audible wheezing per nursing around 5 AM this morning. Patient was suctioned and given a breathing treatment without much success. O2 saturations remained 92% and above on 6L via NC. Patient has inspiratory and expiratory wheezing with rhonchi on evaluation. Mai Ho APRN-STUDY LEAD Hospital Problem: Principal Problem: 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CMS-HCC) OBJECTIVE: Lungs: effort normal no respiratory distress wheezes rhonchi Heart: rate normal regular rhythm Abdomen: soft no distension bowel sounds normal Neuro: PERRL Vital Signs Temp: [36.4 C (97.5 F)-36.7 C (98.1 F)] 36.4 C (97.5 F) Pulse: [55-85] 71 Resp: [15-29] 26 BP: (113-175)/(71-161) 151/93 SpO2: [91 %-100 %] 93 % O2 Device: Nasal cannula O2 Flow Rate (L/min): [6 L/min] 6 L/min O2 Device: Nasal cannula Physical Exam Constitutional She appears well-developed. Nursing note and vitals reviewed. HENT Head Normocephalic. Eyes: Pupils are equal, round, and reactive to light. Cardiovascular: Normal rate and regular rhythm. Pulses: intact distal pulses Heart Sounds: normal heart sounds. Pulmonary/Chest: Effort normal. She has wheezes. She has rhonchi. No respiratory distress. Abdominal: Bowel sounds are normal. She exhibits no distension. Soft. Neurological Disoriented, does not follow simple commands, flicker movement to RUE/RLE, spontaneous movements toLUE/LLE Skin: Skin is warm and dry. Genitourinary Genitourinary Comments: Larios catheter in place I/O last 3 completed shifts: In: 3782.8 [I.V.:182.3; NG/GT:3431; IV Piggyback:169.5] Out: 2555 [Urine:2555] Results from last 3 days Lab Units 04/09/23 0158 04/08/23 1340 04/08/23 0418 04/07/23 0334 04/06/23 1104 BUN mg/dL 33* -- 54* 53* -- CREATININE mg/dL 0.74 -- 0.97 1.11* -- POTASSIUM mmol/L 3.5 3.5 3.5 4.0 4.7 CO2 mmol/L -- 29 30 -- CHLORIDE mmol/L 113* -- 117* 116* -- AST U/L 35 -- 40 39 -- ALT U/L 64* -- 60* 56* -- ALK PHOS U/L 107 -- 105 104 -- No data from last 3 days. Results from last 3 days Lab Units 04/09/23 0158 04/08/23 0418 04/07/23 0334 WBC X10E9/L 10.5 11.8* 14.8* HEMOGLOBIN g/dL 11.5* 12.0 12.7 HEMATOCRIT % 33.6* 36.4 38.6 PLATELETS X10E9/L 74* 66* 58* MCV fL 86 87 87 MCH pg 29.3 28.7 28.6 MCHC g/dL 34.1 33.0 32.8 RDW % 15.4* 15.9* 15.9* EOS ABS AUTO X10E9/L 0.2 0.1 0.0 Microbiology Results Procedure Component Value Units Date/Time Resp Pathogens Panel/SARS CoV-2 [[id number]] Collected: 04/03/23 1000 Specimen: Nasopharynx Updated: 04/03/23 1149 Specimen Source NASO PHARYNX Adenovirus Detection by PCR Not Detected Coronavirus 229e Not Detected Coronavirus hku1 Not Detected Coronavirus nl63 Not Detected Coronavirus oc43 Not Detected Human metapneumovirus Not Detected Rhinovirus/enterovirus Not Detected Influenza A Not Detected Influenza B Not Detected Parainfluenza 1 Not Detected Parainfluenza 2 Not Detected Parainfluenza 3 Not Detected Parainfluenza 4 Not Detected Respiratory syncytial virus Not Detected Bordetella parapertussis Not Detected Bordetella pertussis Not Detected Chlamydophila pneumophilia Not Detected Mycoplasma pneumoniae Not Detected SARS COV 2 Not Detected Mrsa Pcr nasal swab [[id number]] Collected: 04/03/23 1000 Specimen: Nasal Updated: 04/03/23 1200 Mrsa PCR Negative Glucose Results from last 7 days Lab Units 04/09/23 0158 04/08/23 0418 04/07/23 1154 04/07/23 0334 04/06/23 0342 04/05/23 0342 04/04/23 0330 04/03/23 0335 04/02/23 1302 BEDSIDE GLUCOSE mg/dL -- -- 111* -- -- -- -- -- 124* GLUCOSE mg/dL 155* 135* -- 112* 106* 169* 147* 114* -- Microbiology Results Procedure Component Value Units Date/Time Resp Pathogens Panel/SARS CoV-2 [[id number]] Collected: 04/03/23 1000 Specimen: Nasopharynx Updated: 04/03/23 1149 Specimen Source NASO PHARYNX Adenovirus Detection by PCR Not Detected Coronavirus 229e Not Detected Coronavirus hku1 Not Detected Coronavirus nl63 Not Detected Coronavirus oc43 Not Detected Human metapneumovirus Not Detected Rhinovirus/enterovirus Not Detected Influenza A Not Detected Influenza B Not Detected Parainfluenza 1 Not Detected Parainfluenza 2 Not Detected Parainfluenza 3 Not Detected Parainfluenza 4 Not Detected Respiratory syncytial virus Not Detected Bordetella parapertussis Not Detected Bordetella pertussis Not Detected Chlamydophila pneumophilia Not Detected Mycoplasma pneumoniae Not Detected SARS COV 2 Not Detected Mrsa Pcr nasal swab [[id number]] Collected: 04/03/23 1000 Specimen: Nasal Updated: 04/03/23 1200 Mrsa PCR Negative Ventilator Settings FiO2 (%): 28 % Lines/Drains Peripheral IV 04/02/23 Anterior;Left Forearm (Active) Line Status Infusing;Blood return noted 04/09/23399 Site Assessment Intact;Bleeding 04/09/23399 Dressing Type Occlusive;Transparent 04/09/23399 Dressing Status Intact;Old drainage 04/09/23399 Dressing Intervention Dressing changed 04/08/231999 Dressing Change Due (Non-Gauze) 04/15/23 04/08/231999 Peripheral IV 04/06/23 Anterior;Left;Upper Arm (Active) Line Status Blood return noted;Flushed;Alcohol sponge cap changed 04/09/23399 Site Assessment Clean;Dry;Intact 04/09/23399 Dressing Type Occlusive;Transparent 04/09/23399 Dressing Status Clean;Dry;Intact 04/09/23399 Dressing Intervention Dressing changed 04/06/231999 Dressing Change Due (Non-Gauze) 04/13/23 04/06/231999 NG/OG Tube 04/03/23 Nasogastric Left nostril (Active) Placement Verification External length measured 04/09/23399 Status Continuous tube feeding 04/09/23399 Site Assessment Clean;Dry 04/09/23399 Tube Site Care Completed 04/08/23 0800 Secured at (cm) 55 cm 04/09/23399 Securement Method Adhesive tape 04/09/23399 Dressing Status/Interventions Clean;Dry;Intact 04/07/23 1200 Flushed With Tap water 04/09/23399 Flush or Free Water (mL) 300 ml 04/09/23399 Feeding? (Yes or No) Yes 04/09/23399 Urinary Catheter 04/02/23 (Active) Catheter Status Patent 04/09/23399 Site Assessment Clean;Skin intact 04/09/23399 Collection Container Standard drainage bag/container 04/09/23399 Securement Method Securing device (Describe) 04/09/23399 Tamper Evident Seal Intact Yes 04/09/23399 Reason for Continuing Strict I&O in critically ill patient 04/09/23399 Urine Color Yellow/straw 04/09/23399 Urine Appearance Clear 04/09/23399 Output (mL) 90 mL 04/09/23499 I/O last 3 completed shifts: In: 3782.8 [I.V.:182.3; NG/GT:3431; IV Piggyback:169.5] Out: 2555 [Urine:2555] I/O this shift: In: 2886.5 [I.V.:1404; NG/GT:1419; IV Piggyback:63.5] Out: 1040 [Urine:1040] amLODIPine, 10 mg, nasogastric, Daily bisacodyL, 10 mg, rectal, Q3 Days carvediloL, 12.5 mg, nasogastric, BID furosemide, 40 mg, intravenous, Once heparin (porcine), 5,000 Units, subcutaneous, Q8H DIO ipratropium-albuteroL, 3 mL, nebulization, Q6H While awake lisinopriL, 20 mg, nasogastric, Daily magnesium hydroxide, 30 mL, nasogastric, Q3 Days melatonin, 6 mg, oral, Nightly omeprazole-sodium bicarbonate, 40 mg, nasogastric, Daily [COMPLETED] piperacillin-tazobactam (ZOSYN) IV, 4.5 g, intravenous, Once FOLLOWED BY piperacillin-tazobactam (ZOSYN) IV, 3.375 g, intravenous, Q8H sennosides-docusate sodium, 2 tablet, nasogastric, BID dextrose 2.5 % in water, 1,000 mL infusion, 125 mL/hr, Last Rate: Stopped (04/09/23321) dextrose 5 % in water, 100 mL/hr sodium chloride 0.9 %, 10 mL/hr sodium chloride 0.9 %, 10 mL/hr sodium chloride 0.9 %, 10 mL/hr, Last Rate: Stopped (04/02/23 0805) [] This patient, with a critical illness, requires constant monitoring and titration of care by a Critical Care Dredge Captain. Failure to do so may result in further organ system failure, imminent deterioration, or . Mai Ho, CHILD WELFARE ASSISTANT-STUDY LEAD 04/09/23 1031 Mai Ho, CHILD WELFARE ASSISTANT-STUDY LEAD 04/09/23 1049 Mai Ho, CHILD WELFARE ASSISTANT-STUDY LEAD 04/09/23 1050 * Artemio Ray MD - 04/08/2023 12:54 PM EST NEUROINTERVENTIONAL DAILY PROGRESS NOTE SUBJECTIVE: Ellen Chan is a 78 y.o. female was transferred from an outside hospital where she presented with right lower extremity weakness, a tele stroke alert was activated, initial NIH was 1, neuroimaging revealed left thalamic ICH with IVH ICH score of 2, with a blood pressure of 155/112. She was started on Cardene infusion for a systolic blood pressure less than 140 and was transferred to [facility] neuro ICU for further management. On arrival, there was decline in her mental status requiring repeat CT scan that showed hematoma expansion. Subsequently neurosurgery was taken on board, however, no surgical intervention was warranted. Neuro critical care was taken on board for medical management. Patient was noted to be mildly thrombocytopenic, with return of platelet count to 114, platelet function test demonstrated drug-induced thrombocytopenia. Patient has since been stable with waxing and waning mental status, intermittently agitated. Repeat CT head remained stable. Stroke risk factors: Hypertension Abdominal aortic aneurism. Hyperlipidemia Interval history: Patient was seen and examined at the bedside. No acute events overnight. Afebrile and hemodynamically stable. Patient doing better today. Was able to follow one command which consisted of squeezing her hand. CURRENT MEDICATIONS: dextrose 2.5 % in water, 1,000 mL infusion, 100 mL/hr, Last Rate: 100 mL/hr (04/08/23 0931) dextrose 5 % in water, 100 mL/hr sodium chloride 0.9 %, 10 mL/hr sodium chloride 0.9 %, 10 mL/hr sodium chloride 0.9 %, 10 mL/hr, Last Rate: Stopped (04/02/23 0805) amLODIPine, 10 mg, nasogastric, Daily bisacodyL, 10 mg, rectal, Q3 Days carvediloL, 12.5 mg, nasogastric, BID heparin (porcine), 5,000 Units, subcutaneous, Q8H DIO ipratropium-albuteroL, 3 mL, nebulization, Q6H lisinopriL, 20 mg, nasogastric, Daily magnesium hydroxide, 30 mL, nasogastric, Q3 Days melatonin, 6 mg, oral, Nightly omeprazole-sodium bicarbonate, 40 mg, nasogastric, Daily [COMPLETED] piperacillin-tazobactam (ZOSYN) IV, 4.5 g, intravenous, Once FOLLOWED BY piperacillin-tazobactam (ZOSYN) IV, 3.375 g, intravenous, Q8H sennosides-docusate sodium, 2 tablet, nasogastric, BID PHYSICAL EXAM: Vital Signs: Blood pressure 130/88, pulse 69, temperature 36.7 C (98.1 F), temperature source Oral,resp. rate 17, height 162.6 cm (5' 4 ), weight 65.8 kg (145 lb 1 oz), SpO2 95%. Respiratory Source: O2 Device: Nasal cannula Physical Exam Neurologic Exam NIH Stroke Scale 1a Level of consciousness: 0=alert; keenly responsive 1b. LOC questions: 2=Performs neither task correctly 1c. LOC commands: 1=Performs one task correctly 2. Best Gaze: 0=normal 3. Visual: 0=No visual loss 4. Facial Palsy: 1=Minor paralysis (flattened nasolabial fold, asymmetric on smiling) 5a. Motor left arm: 0=No drift, limb holds 90 (or 45) degrees for full 10 seconds 5b. Motor right arm: 3=No effort against gravity, limb falls 6a. motor left le=No drift, limb holds 90 (or 45) degrees for full 10 seconds 6b Motor right le=No movement 7. Limb Ataxia: 0=Absent 8. Sensory: 0=Normal; no sensory loss 9. Best Language: 3=Mute, global aphasia; no usable speech or auditory comprehension 10. Dysarthria: 2=Severe; patient speech is so slurred as to be unintelligible in the absence of orour of proportion to any dysphagia, or is mute/anarthric 11. Extinction and Inattention: 0=No abnormality 12. Distal motor function: 0=Normal Total: 16 Pre morbid Modified Brittney score: 0 Lab Review Lab Results Component Value Date GLU 135 (H) 04/08/2023 CALCIUM 8.9 04/08/2023 K 3.5 04/08/2023 CO2 29 04/08/2023 BUN 54 (H) 04/08/2023 CREATININE 0.97 04/08/2023 Lab Results Component Value Date WBC 11.8 (H) 04/08/2023 HGB 12.0 04/08/2023 HCT 36.4 04/08/2023 MCV 87 04/08/2023 PLT 66 (L) 04/08/2023 Lab Results Component Value Date HGBA1C 5.5 04/01/2023 Lab Results Component Value Date CHOL 243 (H) 04/01/2023 Lab Results Component Value Date LDLCALC 130 (H) 04/01/2023 Lab Results Component Value Date TRIG 99 04/01/2023 Imaging: X-ray chest 1 view Result Date: 04/08/2023 Clinical History: Follow-up pneumonia. Portable Upright chest: 04/08/2023 Comparison: 04/07/2023 Findings: A single portable view of the chest was obtained. The enteric tube extends the upper abdomen. Extensive aortic tortuosity remains with descending thoracic aortic stents. There is no change in the mediastinal contours. Hazy upper lobe opacities persist with improvement on the left. There is no basilar consolidation or pleural effusion evident. No pneumothorax is demonstrated IMPRESSION: Persistent hazy lung infiltrates may reflect edema or pneumonitis with slight improvement on the left. 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 Patient was accepted as a transfer from an outside hospital for right-sided weakness. Initial NIH was 1 (right lower extremity weakness), not on blood thinners. On arrival, her neuro exam worsened deeming a repeat head CT with hematoma expansion. Neurosurgery was taken on board, deferred plans for neurosurgical intervention. Neuro critical care remains on board for fluctuating mental status and medical management. Concern for aspiration pneumonia, started on Abx and CC following Hypernatremia Stroke risk factors Hypertension Abdominal aortic aneurysm. Hyperlipidemia. Stroke work up: MRI brain with and without contrast: Pending Echocardiogram: EF 60-65% mildly dilated aortic aorta, trace mitral and tricuspid regurgitation. Hemoglobin A1c: 5.5 LDL: 130 Routine EEG: Left posterior parietotemporal slowing. 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 antihypertensive medications. NG for PO meds and tube feeding Free water flushes and D2.5 infusion for hypernatremia Plan on started statins in the outpatient setting. -VTE prophylaxis with subQ heparin. -GI prophylaxis using Pepcid, mechanical VTE prophylaxis, p.r.n. pain medications. Patient was discussed with Dr. Montemayor. Artemio Ray MD Neurology PGY-3 [facility] 12:54 PM 04/08/23 This patient is being followed by the Neurology Resident service. Contact attending directly during these hours: Saturday to 7:30-8:30 A.M. to Saturday 12-1:00 p.m. Primary Neurology service: [phone] Consult neurology service: [phone] Resident Stroke Service: [phone] If the patient belongs to the [facility] service please contact the [facility] directly. Associated attestation - Arya Montemayor MD - 04/08/2023 10:41 PM EST I saw and examined the patient with Neurology resident, I agree with examination, assessment, plan. * America Bass MD - 04/08/2023 9:52 AM EST Images from the original note were not included. 04/08/2023 9:52 AM Name: Ellen Chan Age: 78 y.o. female Acct: [id number] Room: [facility] Day: 7 Admit Date: 04/01/2023 4:08 AM PCP: NITHYA BROWN MD Subjective: Ellen Chan is a 78 y.o. 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 General surgery consulted for PEG tube placement. No acute events overnight. Patient continues to tolerate tube feeds at goal. On 6 L O2 via non-rebreather. Despite free water flushes, sodium 158 from 157. Platelets also remain low, note diagnosis of drug-induced thrombocytopenia. Currently 66. Objective: Vitals: 04/08/23 0900 BP: (!) 125/91 Pulse: 77 Resp: 19 Temp: SpO2: 94% Temp: [36.2 C (97.2 F)-36.7 C (98.1 F)] 36.7 C (98.1 F) Pulse: [73-89] 77 Resp: [14-22] 19 BP: (102-153)/(66-98) 125/91 FiO2 (%): [28 %] 28 % SpO2: [89 %-100 %] 94 % O2 Device: Nasal cannula O2 Flow Rate (L/min): [6 L/min] 6 L/min Allergies Allergen Reactions Ciprofloxacin Headache Alendronate Bee Venom Protein (Honey Bee) feels like my eyes are spinning around Pfybxcbl-Wpunhfxhbcm-Butvvulcv Oxycodone Headache I just don't want to take it Intake/Output last 3 shifts: I/O last 3 completed shifts: In: 2642.6 [NG/GT:2460; IV Piggyback:182.6] Out: 2310 [Urine:2310] Intake/Output this shift: I/O this shift: In: - Out: 230 [Urine:230] Dietary Orders (From admission, onward) Start Ordered 04/07/23 1200 Free water Every 4 hours Question Answer Comment Amount in mL 300 Tube Type: Nasogastric or Oral gastric feeding tube 04/07/23 0809 04/02/23 1509 Tube feeding No tray-Continuous Tube feeding No Tray-Continuous; Nasogastric or Oral gastric feeding tube; Standard 1.5 kcal; 15; 10; Every 8 hours; 45 Continuous Comments: Formula: Osmolite 1.5 References: Formulary Card Question Answer Comment Diet Type: Tube feeding No Tray-Continuous Tube Type: Nasogastric or Oral gastric feeding tube Tube Feeding Formula: Standard 1.5 kcal Tube Feeding Start Rate (mL/hour): 15 Increase Rate by (mL/hour): 10 Frequency of Rate increase: Every 8 hours Goal Rate (mL/hour): 45 04/02/23 1509 Physical Exam General Appearance: Awake, Alert & Oriented x3, No Acute Distress. Neck: Trachea Midline Pulmonary: Clear to Auscultation bilaterally. Unlabored breathing. No expiratory wheeze. Cardiac: Regular rhythm and rate. Abdomen: Soft, nondistended, no appreciable tenderness Extremity: Full Range of Motion, No edema Bilateral Upper Extremities Skin: Dry. Non-icteric. No Rash. Eyes: Pupils Equal and Round, Non-icteric Laboratory Data: Lab Results Component Value Date WBC 11.8 (H) 04/08/2023 HGB 12.0 04/08/2023 HCT 36.4 04/08/2023 MCV 87 04/08/2023 PLT 66 (L) 04/08/2023 Lab Results Component Value Date GLU 135 (H) 04/08/2023 CALCIUM 8.9 04/08/2023 K 3.5 04/08/2023 CO2 29 04/08/2023 CL 117 (H) 04/08/2023 BUN 54 (H) 04/08/2023 CREATININE 0.97 04/08/2023 No results found for: AMYLASE Lab Results Component Value Date LIPASE 10 (L) 05/19/2019 Lab Results Component Value Date ALT 60 (H) 04/08/2023 AST 40 04/08/2023 ALKPHOS 105 04/08/2023 Lab Results Component Value Date INR 1.0 04/01/2023 PROTIME 12.2 04/01/2023 amLODIPine, 10 mg, nasogastric, Daily bisacodyL, 10 mg, rectal, Q3 Days carvediloL, 12.5 mg, nasogastric, BID heparin (porcine), 5,000 Units, subcutaneous, Q8H DIO ipratropium-albuteroL, 3 mL, nebulization, Q6H lisinopriL, 20 mg, nasogastric, Daily magnesium hydroxide, 30 mL, nasogastric, Q3 Days melatonin, 6 mg, oral, Nightly omeprazole-sodium bicarbonate, 40 mg, nasogastric, Daily [COMPLETED] piperacillin-tazobactam (ZOSYN) IV, 4.5 g, intravenous, Once FOLLOWED BY piperacillin-tazobactam (ZOSYN) IV, 3.375 g, intravenous, Q8H sennosides-docusate sodium, 2 tablet, nasogastric, BID acetaminophen calcium gluconate OR calcium gluconate OR calcium gluconate dextrose dextrose 5 % in water dextrose 50 % in water (D50W) glucagon (human recombinant) hydrALAZINE ipratropium-albuteroL labetalol magnesium sulfate OR magnesium sulfate ondansetron potassium chloride OR potassium chloride potassium chloride in water OR potassium chloride in water QUEtiapine sodium phosphate IV OR sodium phosphate IV - central line OR sod phos di, mono-K phos mono sodium chloride 0.9 % sodium chloride 0.9 % sodium chloride 0.9 % Assessment: Ellen Chan is a 78 y.o. 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 General surgery consulted for PEG tube placement. Patient Active Problem List Diagnosis 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[facility]-H[facility]) Plan: PEG can be done at any time. However, would like to see higher platelet count as well as resolutionof hypernatremia before that time. General Surgery will follow peripherally awaiting optimization of the above issues. Will discuss with patient's POA when appropriate. Note that POA is comfortable with temporary intubation in the event procedure must be done under general anesthesia. In the meantime, continue tube feeds. America Bass MD General Surgery Resident, PGY-4 Acute Care Surgery/ACS 6a-6p pager #[phone] 6p-6a pager #[phone] Associated attestation - Estevan Duff DO - 04/08/2023 10:03 AM EST General Surgery Attending Attestation: I saw the patient. I participated and was physically present during the critical/felix portions of the service. I was directly involved in the management and treatment plan of the patient. I reviewed the resident's note. Additional Notes/Findings: Patient on non-rebreather this morning. Hypernatremia slightly worse. Patient getting free water. Patient also thrombocytopenic. Tolerating tube feeds. Will discuss further with neuro critical care service. Will proceed with EGD and PEG tube placement once medically stable. Estevan Duff D.O. * KOTA Hernandez - 04/08/2023 9:35 AM EST CRITICAL CARE PROGRESS NOTE Name: Ellen Chan Age: 78 y.o. Date: 04/08/23 Length of Stay 7 day(s) Assessment & Plan Acute left ophthalmic ICH with IVH Acute respiratory insufficiency in the setting of multifocal pneumonia Multifocal pneumonia Leukocytosis, unspecified Essential hypertension Hypernatremia JOHN, improving Plan Maintain SpO2 > 92%, wean nasal cannula as tolerated Scheduled DuoNebs with chest therapies for bronchopulmonary hygiene Continue Zosyn, continue to follow cultures Strict I&O Scheduled Senokot S, gluconate, and Dulcolax. Last charted BM 04/05, continue to monitor D2.5 initiated to help correct hypernatremia. Continue Free water 300ml Q4H Maintain antihypertensive regimen, maintain SBP < 140 DVT Prophylaxis- SubQ heparin GI prophylaxis- omeprazole-sodium bicarb Nutrition- tube feed Electrolyte replacement scale per ICU protocol Plan discussed with bedside nurse KOTA Hernandez Subjective ABDULLAHI, patient nonverbal on assessment Hospital Problem: Principal Problem: 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CMS-HCC) OBJECTIVE: Lungs: not tachypneic not intubated no respiratory distress rhonchi Heart: rate normal regular rhythm Abdomen: soft no distension bowel sounds normal Neuro: alert Vital Signs Temp: [36.2 C (97.2 F)-36.7 C (98.1 F)] 36.7 C (98.1 F) Pulse: [73-89] 84 Resp: [14-22] 21 BP: (102-153)/(66-98) 134/88 FiO2 (%): [28 %] 28 % SpO2: [89 %-100 %] 92 % O2 Device: Nasal cannula O2 Flow Rate (L/min): [6 L/min] 6 L/min O2 Device: Nasal cannula Physical Exam Constitutional She appears well-developed. She is not intubated. HENT Head Normocephalic. Cardiovascular: Normal rate and regular rhythm. Heart Sounds: normal heart sounds. Pulmonary/Chest: She has rhonchi. No tachypnea. She is not intubated. No respiratory distress. Abdominal: Bowel sounds are normal. She exhibits no distension. Soft. There is no abdominal tenderness. Musculoskeletal: Comments: Right sided weakness Neurological She is alert. Follows commands Skin: Skin is warm and dry. I/O last 3 completed shifts: In: 2642.6 [NG/GT:2460; IV Piggyback:182.6] Out: 2310 [Urine:2310] Results from last 3 days Lab Units 04/08/2341704/07/2333304/06/23 1104 04/06/23 0342 BUN mg/dL 54* 53* -- 39* CREATININE mg/dL 0.97 1.11* -- 0.70 POTASSIUM mmol/L 3.5 4.0 4.7 3.7 CO2 mmol/L 29 30 -- 27 CHLORIDE mmol/L 117* 116* -- 114* AST U/L 40 39 -- 28 ALT U/L 60* 56* -- 34* ALK PHOS U/L 105 104 -- 87 No data from last 3 days. Results from last 3 days Lab Units 04/08/2341704/07/234 04/06/23 0342 WBC X10E9/L 11.8* 14.8* 16.3* HEMOGLOBIN g/dL 12.0 12.7 13.1 HEMATOCRIT % 36.4 38.6 40.3 PLATELETS X10E9/L 66* 58* 69* MCV fL 87 87 87 MCH pg 28.7 28.6 28.2 MCHC g/dL 33.0 32.8 32.5 RDW % 15.9* 15.9* 15.8* EOS ABS AUTO X10E9/L 0.1 0.0 0.0 Microbiology Results Procedure Component Value Units Date/Time Resp Pathogens Panel/SARS CoV-2 [[id number]] Collected: 04/03/23 1000 Specimen: Nasopharynx Updated: 04/03/23 1149 Specimen Source NASO PHARYNX Adenovirus Detection by PCR Not Detected Coronavirus 229e Not Detected Coronavirus hku1 Not Detected Coronavirus nl63 Not Detected Coronavirus oc43 Not Detected Human metapneumovirus Not Detected Rhinovirus/enterovirus Not Detected Influenza A Not Detected Influenza B Not Detected Parainfluenza 1 Not Detected Parainfluenza 2 Not Detected Parainfluenza 3 Not Detected Parainfluenza 4 Not Detected Respiratory syncytial virus Not Detected Bordetella parapertussis Not Detected Bordetella pertussis Not Detected Chlamydophila pneumophilia Not Detected Mycoplasma pneumoniae Not Detected SARS COV 2 Not Detected Mrsa Pcr nasal swab [[id number]] Collected: 04/03/23 1000 Specimen: Nasal Updated: 04/03/23 1200 Mrsa PCR Negative Glucose Results from last 7 days Lab Units 04/08/23 0418 04/07/23 1154 04/07/23 0334 04/06/23 0342 04/05/23 0342 04/04/23 0330 04/03/23 0335 04/02/23 1302 04/02/23 0506 BEDSIDE GLUCOSE mg/dL -- 111* -- -- -- -- -- 124* -- GLUCOSE mg/dL 135* -- 112* 106* 169* 147* 114* -- 123* Microbiology Results Procedure Component Value Units Date/Time Resp Pathogens Panel/SARS CoV-2 [[id number]] Collected: 04/03/23 1000 Specimen: Nasopharynx Updated: 04/03/23 1149 Specimen Source NASO PHARYNX Adenovirus Detection by PCR Not Detected Coronavirus 229e Not Detected Coronavirus hku1 Not Detected Coronavirus nl63 Not Detected Coronavirus oc43 Not Detected Human metapneumovirus Not Detected Rhinovirus/enterovirus Not Detected Influenza A Not Detected Influenza B Not Detected Parainfluenza 1 Not Detected Parainfluenza 2 Not Detected Parainfluenza 3 Not Detected Parainfluenza 4 Not Detected Respiratory syncytial virus Not Detected Bordetella parapertussis Not Detected Bordetella pertussis Not Detected Chlamydophila pneumophilia Not Detected Mycoplasma pneumoniae Not Detected SARS COV 2 Not Detected Mrsa Pcr nasal swab [[id number]] Collected: 04/03/23 1000 Specimen: Nasal Updated: 04/03/23 1200 Mrsa PCR Negative Ventilator Settings FiO2 (%): 28 % Invasive Hemodynamic [place] Lines/Drains Peripheral IV 04/02/23 Anterior;Left Forearm (Active) Line Status No blood return;Flushed;Saline locked 04/08/23399 Site Assessment Clean;Dry;Intact 04/08/23399 Dressing Type Occlusive;Transparent 04/08/23399 Dressing Status Clean;Dry;Intact 04/08/23399 Dressing Intervention Dressing changed 04/07/231999 Dressing Change Due (Non-Gauze) 04/14/23 04/07/231999 Peripheral IV 04/06/23 Anterior;Left;Upper Arm (Active) Line Status No blood return;Flushed;Infusing 04/08/23399 Site Assessment Clean;Dry;Intact 04/08/23399 Dressing Type Occlusive;Transparent 04/08/23399 Dressing Status Clean;Dry;Intact 04/08/23399 Dressing Intervention Dressing changed 04/06/231999 Dressing Change Due (Non-Gauze) 04/13/23 04/06/231999 NG/OG Tube 04/03/23 Nasogastric Left nostril (Active) Placement Verification External length measured;Gastric content;X-ray 04/08/23399 Status Continuous tube feeding 04/08/23399 Site Assessment Clean;Dry 04/08/23399 Tube Site Care Completed 04/08/23399 Secured at (cm) 55 cm 04/08/23399 Securement Method Adhesive tape 04/08/23399 Dressing Status/Interventions Clean;Dry;Intact 04/07/23 1200 Flushed With Tap water 04/08/23 040 Flush or Free Water (mL) 300 ml 04/08/23399 Feeding? (Yes or No) Yes 04/08/23399 Urinary Catheter 04/02/23 (Active) Catheter Status Patent 04/08/23399 Site Assessment Clean;Skin intact 04/08/23399 Collection Container Standard drainage bag/container 04/08/23 040 Securement Method Securing device (Describe) 04/08/23399 Tamper Evident Seal Intact Yes 04/08/23 040 Reason for Continuing Strict I&O in critically ill patient 04/08/23 040 Urine Color Yellow/straw 04/08/23 040 Urine Appearance Clear 04/08/23 040 Output (mL) 230 mL 04/08/23 0800 I/O last 3 completed shifts: In: 2642.6 [NG/GT:2460; IV Piggyback:182.6] Out: 2310 [Urine:2310] I/O this shift: In: - Out: 230 [Urine:230] amLODIPine, 10 mg, nasogastric, Daily bisacodyL, 10 mg, rectal, Q3 Days carvediloL, 12.5 mg, nasogastric, BID heparin (porcine), 5,000 Units, subcutaneous, Q8H DIO ipratropium-albuteroL, 3 mL, nebulization, Q6H lisinopriL, 20 mg, nasogastric, Daily magnesium hydroxide, 30 mL, nasogastric, Q3 Days melatonin, 6 mg, oral, Nightly omeprazole-sodium bicarbonate, 40 mg, nasogastric, Daily [COMPLETED] piperacillin-tazobactam (ZOSYN) IV, 4.5 g, intravenous, Once FOLLOWED BY piperacillin-tazobactam (ZOSYN) IV, 3.375 g, intravenous, Q8H sennosides-docusate sodium, 2 tablet, nasogastric, BID dextrose 2.5 % in water, 1,000 mL infusion, 100 mL/hr, Last Rate: 100 mL/hr (04/08/23 0931) dextrose 5 % in water, 100 mL/hr sodium chloride 0.9 %, 10 mL/hr sodium chloride 0.9 %, 10 mL/hr sodium chloride 0.9 %, 10 mL/hr, Last Rate: Stopped (04/02/23 0805) KOTA Hernandez [] This patient, with a critical illness, requires constant monitoring and titration of care by a Critical Care Dredge Captain. Failure to do so may result in further organ system failure, imminent deterioration, or . KOTA Hernandez 04/08/23 0948 * Artemio Ray MD - 04/07/2023 1:59 PM EST NEUROINTERVENTIONAL DAILY PROGRESS NOTE SUBJECTIVE: Ellen Chan is a 78 y.o. female was transferred from an outside hospital where she presented with right lower extremity weakness, a tele stroke alert was activated, initial NIH was 1, neuroimaging revealed left thalamic ICH with IVH ICH score of 2, with a blood pressure of 155/112. She was started on Cardene infusion for a systolic blood pressure less than 140 and was transferred to [facility] neuro ICU for further management. On arrival, there was decline in her mental status requiring repeat CT scan that showed hematoma expansion. Subsequently neurosurgery was taken on board, however, no surgical intervention was warranted. Neuro critical care was taken on board for medical management. Patient was noted to be mildly thrombocytopenic, with return of platelet count to 114, platelet function test demonstrated drug-induced thrombocytopenia. Patient has since been stable with waxing and waning mental status, intermittently agitated. Repeat CT head remained stable. Stroke risk factors: Hypertension Abdominal aortic aneurism. Hyperlipidemia Interval history: Patient was seen and examined at the bedside. No acute events overnight. Afebrile and hemodynamically stable. Patient appears more restful today and less agitated. Opening eyes. CURRENT MEDICATIONS: dextrose 5 % in water, 100 mL/hr sodium chloride 0.9 %, 10 mL/hr sodium chloride 0.9 %, 10 mL/hr sodium chloride 0.9 %, 10 mL/hr, Last Rate: Stopped (04/02/23804) amLODIPine, 10 mg, nasogastric, Daily bisacodyL, 10 mg, rectal, Q3 Days carvediloL, 12.5 mg, nasogastric, BID heparin (porcine), 5,000 Units, subcutaneous, Q8H DIO ipratropium-albuteroL, 3 mL, nebulization, Q6H lisinopriL, 20 mg, nasogastric, Daily magnesium hydroxide, 30 mL, nasogastric, Q3 Days melatonin, 6 mg, oral, Nightly omeprazole-sodium bicarbonate, 40 mg, nasogastric, Daily [COMPLETED] piperacillin-tazobactam (ZOSYN) IV, 4.5 g, intravenous, Once FOLLOWED BY piperacillin-tazobactam (ZOSYN) IV, 3.375 g, intravenous, Q8H sennosides-docusate sodium, 2 tablet, nasogastric, BID PHYSICAL EXAM: Vital Signs: Blood pressure 112/86, pulse 76, temperature 36.2 C (97.2 F), resp. rate 19, height 162.6 cm (5' 4 ), weight 66.5 kg (146 lb 9.7 oz), SpO2 94%. Respiratory Source: O2 Device: Nasal cannula Physical Exam Neurologic Exam NIH Stroke Scale 1a Level of consciousness: 0=alert; keenly responsive 1b. LOC questions: 2=Performs neither task correctly 1c. LOC commands: 2=Performs neither task correctly 2. Best Gaze: 0=normal 3. Visual: 0=No visual loss 4. Facial Palsy: 1=Minor paralysis (flattened nasolabial fold, asymmetric on smiling) 5a. Motor left arm: 0=No drift, limb holds 90 (or 45) degrees for full 10 seconds 5b. Motor right arm: 3=No effort against gravity, limb falls 6a. motor left le=No drift, limb holds 90 (or 45) degrees for full 10 seconds 6b Motor right le=No movement 7. Limb Ataxia: 0=Absent 8. Sensory: 0=Normal; no sensory loss 9. Best Language: 3=Mute, global aphasia; no usable speech or auditory comprehension 10. Dysarthria: 2=Severe; patient speech is so slurred as to be unintelligible in the absence of orour of proportion to any dysphagia, or is mute/anarthric 11. Extinction and Inattention: 0=No abnormality 12. Distal motor function: 0=Normal Total: 17 Pre morbid Modified [place] score: 0 Lab Review Lab Results Component Value Date GLU 111 (H) 04/07/2023 CALCIUM 9.2 04/07/2023 K 4.0 04/07/2023 CO2 30 04/07/2023 BUN 53 (H) 04/07/2023 CREATININE 1.11 (H) 04/07/2023 Lab Results Component Value Date WBC 14.8 (H) 04/07/2023 HGB 12.7 04/07/2023 HCT 38.6 04/07/2023 MCV 87 04/07/2023 PLT 58 (L) 04/07/2023 Lab Results Component Value Date HGBA1C 5.5 04/01/2023 Lab Results Component Value Date CHOL 243 (H) 04/01/2023 Lab Results Component Value Date LDLCALC 130 (H) 04/01/2023 Lab Results Component Value Date TRIG 99 04/01/2023 Imaging: X-ray chest 1 view Result Date: 04/07/2023 Clinical History: Aspiration pneumonia. Portable Upright chest: 04/07/2023 Comparison: 04/03/2023 Findings: A single portable view of the chest was obtained. The enteric tube extends the upper abdomen. Is aortic tortuosity is evident with its with prominence of the aortic arch similar to prior studies. Descending aortic stents are evident. There is hazy opacity throughout the mid lungs and basilar regions. No pneumothorax or pleural effusion is present. IMPRESSION: Bilateral infiltrates compatible with edema and/or pneumonia. Aortic tortuosity stable compared to recent radiographs. Finalized by Rajan Mtz MD on 04/07/2023 5:[address] brain without contrast Result Date: 04/06/2023 History: Hemorrhagic stroke follow-up. NONCONTRAST HEAD CT Comparison: 04/03/2023 Findings: A largearea of left-sided intraparenchymal hemorrhage appears unchanged in size and extent as does extension of blood into the posterior aspects of both ventricles. Shift of midline to the right through maxi mum 3 mm is unchanged. There is increase in much smaller areas of hyperdense hemorrhage over the right cerebellar lateral cortical surface and right parietal occipital cortical cortical surface and subarachnoid blood in the sylvian fissure. There may be some increase in subarachnoid/cortical surface laterally over the right cerebellar hemisphere although this area was much more obscured by streakartifact from the previous exam IMPRESSION: Large left-sided parenchymal hematoma, intraventricularblood, and 3 mm of midline shift to the right unchanged There appears to be some interval increase in a much smaller areas of right sylvian fissure and right lateral cerebellar subarachnoid and cortical hyperdense blood. All CT scans at this facility use dose modulation, iterative reconstruction, and/or weight based dosing when appropriate to reduce radiation dose to as low as reasonably achievable. Finalized by Julio Cesar Martinez MD on 04/06/2023 10:[address] angiogram chest Result Date: 04/06/2023 CTA CHEST HISTORY: Shortness of breath, high probability for pulmonary embolism.. COMPARISON: None.TECHNIQUE: Multidetector CT Angiogram performed with 100 mL of Omnipaque 350 IV contrast. Images obtained through the Chest including 3 -D Maximum intensity projection reconstructions constructed under concurrent physician supervision on a independent workstation. 3 D images obtained to improve visualization of vascular detail. Automatic exposure control (AEC) was utilized. 3D reformatted images confirm the source data findings. All CT scans at this facility use dose modulation, iterative reconstruction, and/or weight based dosing when appropriate to reduce radiation dose to as low as reasonably achievable. FINDINGS: Lower neck: No acute CT findings in the soft tissues the neck. Lymph nodes: No enlarged lymph nodes by size criteria. Osseous structures/Chest wall: Unremarkable. Central airways: The trachea is midline. There is no mass effect or stenosis. Upper Abdomen: Enteric tube projects below the diaphragm into the gastric lumen. Small hiatal hernia. Splenic granulomatous disease. Surgically absent gallbladder with clips in the gallbladder fossa. Heart: Borderline cardiomegaly. Heavy multivessel coronary artery calcification. Pulmonary artery: No evidence of pulmonary embolism.Main pulmonary artery is not enlarged. 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 There is aneurysmal dilatation of the distal aortic arch up to 5.3 cm. Calcifications of the aortic valve. Severe atherosclerotic disease. Lungs: Diffuse multifocal regions of groundglass attenuation seen diffusely throughout the lungs. More confluent airspace opacities are seen within the right lung base. No evidence of pleural effusion or pneumothorax. IMPRESSION:* No evidence of pulmonary embolism. * Multifocal areas of groundglass attenuation seen throughout the lungs. This is nonspecific finding which can be seen in the setting of an atypical or viral infectious process/multifocal pneumonia. More confluent changes in the right lower lobe may be related to atelectasis. * Status post endograft repair of the mid/distal thoracic aorta with aneurysmal dilatation of the distal aortic arch measuring up to 5.3 cm. This is proximal to the area of endograft repair. No prior imaging for comparison. Ongoing imaging follow-up is warranted as well as comparison w ith outside imaging if available. 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 Patient was accepted as a transfer from an outside hospital for right-sided weakness. Initial NIH was 1 (right lower extremity weakness), not on blood thinners. On arrival, her neuro exam worsened deeming a repeat head CT with hematoma expansion. Neurosurgery was taken on board, deferred plans for neurosurgical intervention. Neuro critical care remains on board for fluctuating mental status and medical management. Concern for aspiration pneumonia, started on Abx and CC following Hypernatremia Stroke risk factors Hypertension Abdominal aortic aneurysm. Hyperlipidemia. Stroke work up: MRI brain with and without contrast: Pending Echocardiogram: EF 60-65% mildly dilated aortic aorta, trace mitral and tricuspid regurgitation. Hemoglobin A1c: 5.5 LDL: 130 Routine EEG: Left posterior parietotemporal slowing. 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 antihypertensive medications. -NG passed, p.o. blood pressure medications holding parameters, increased Coreg to 12.5 b.i.d., offCardene. -holding IV fluids, encourage PO intake. -plans on started statins in the outpatient setting. -on tube feeds via NG. -VTE prophylaxis with subQ heparin. -GI prophylaxis using Pepcid, mechanical VTE prophylaxis, p.r.n. pain medications. Patient was discussed with Dr. Montemayor. Artemio Ray MD Neurology PGY-3 [facility] 1:59 PM 04/07/23 This patient is being followed by the Neurology Resident service. Contact attending directly during these hours: Saturday to 7:30-8:30 A.M. to Saturday 12-1:00 p.m. Primary Neurology service: [phone] Consult neurology service: [phone] Resident Stroke Service: [phone] If the patient belongs to the [facility] service please contact the [facility] directly. Associated attestation - Arya Montemayor MD - 04/07/2023 6:56 PM EST Patient seen & examined in conjunction with PGY3. I have reviewed and agree with the HPI, ROS, examination, assessment and plan as outlined in the note above. * Christina Freitas, DO - 04/07/2023 7:37 AM EST Images from the original note were not included. [facility] Neurology Neurocritical Care Progress Note: Brief Summary: Ellen Chan a 78 y.o. female who is admitted to the Neuro ICU with high risk of neurologic failure secondary to acute L thalamic ICH with IVH. Interval Hx: CTA Chest completed yesterday showing no PE, but is significant for multi-focal pneumonia. Slight improvement in hypoxemia on evening ABG Exam: Temp: [36.4 C (97.5 F)-37.2 C (99 F)] 36.4 C (97.5 F) Pulse: [76-116] 84 Resp: [19-31] 21 BP: (98-150)/(74-93) 122/85 SpO2: [90 %-100 %] 99 % O2 Device: Nasal cannula O2 Flow Rate (L/min): [2 L/min-6 L/min] 6 L/min Intake/Output Summary (Last 24 hours) at 04/07/2023 0737 Last data filed at 04/07/2023 0600 Gross per 24 hour Intake 1318.83 ml Output 1880 ml Net -561.17 ml General: Female, appears stated age, no distress. HEENT: Atraumatic, normocephalic, sclera non-iceteric, not injected, no conjunctival pallor, trachea midline, moist pink mucous membranes, neck supple Neuro: Lethargic. Opens eyes to loud voice and briefly regards examiner on the left. Does not follow commands. Left gaze preference. Pupils are equal and reactive. Weak withdraw to noxious stim in RUE/RLE. Cards: RRR, no M/R/G Pulm: coarse throughout but improved from yesterday Abd: normoactive BS and soft Ext: no tenderness or edema over bony prominences or joints Skin: warm, pink, no rashes or lesions Relevant Results: I have personally reviewed new lab and imaging results as well as any available finalized reports. I agree with the findings as reported Diagnosis/Assessment/Plan: Acute L Thalamic ICH with IVH as evidenced by clinical exam and imaging data, currently stable hematoma volume on serial imaging from 04/03. Will recommend the following: - SBP goal < 140mmHg - Neurosurgery signed off. - Serial neurochecks Q2H - Normal Na goal 135-145 - Holding off on MRI Brain due to tenuous respiratory status Acute Respiratory Insufficiency in setting of multi-focal pneumonia as evidenced by clinical assessment and CT Chest findings currently stable. CTA negative for PE. CXR from this morning with worsening bibasilar opacities but clinically the patient appears improved in comparison to yesterday. Will recommend the following: - Continue Ceftriaxone - Schedule duo-nebs with chest vest therapies Q6H - Follow up sputum culture - Humidified oxygen to maintain SpO2 > 92% Essential Hypertension as evidenced by clinical assessment/history, currently stable on oral regimen. Will recommend the following: - SBP goal < 140mmHg - Continue amlodipine 10mg daily, coreg 12.5mg BID, and lisinopril 20mg Hypernatremia as evidenced by laboratory data, currently worsening. Will recommend the following: Increase free water to 300cc Q6H. Hold off on additional diuresis. Leukocytosis likely reactive vs aspiration pneumonitis as evidenced by clinical assessment, currently unchanged. Will recommend the following: - Continue Ceftriaxone for pneumonia, to complete 5 day course Thrombocytopenia as evidenced by laboratory data, currently down trending with no active signs of bleeding. Will recommend the following: Continue to monitor. If it reaches below 50, consult hematology/oncology for evaluation. Hypernatremia, 2/2 over diuresis as evidenced by clinical assessment. Currently worsening. Will increase free water to 300cc Q4H. Hold off on further lasix dosing. JOHN, 2/2 lasix, as evidenced by clinical assessment. Currently stable with good urine output. Will continue to monitor. Gen Crit Care: - Access/Indwelling catheters: Larios day 4, NGT in place with tube feeds at goal, PIVs - Prophylaxis: DVT SCDs and heparin subQ; GI senna and home omeprazole - Activity level: OOB to Chair Goals of Care: DNR - ok for temporary intubation POA: Grand Daughter Jose Rafael Celeste Dispo: ICU Day 7 Family at bedside and updated on plan I have spent 45 mins of critical care time including direct patient care at the bedside, review of relevant labs/results, discussion with family in a patient with neurological failure and coordination of care. This time is exclusive of teaching and any procedures performed. * Christina Freitas DO - 04/06/2023 2:24 PM EST Images from the original note were not included. [facility] Neurology Neurocritical Care Progress Note: Brief Summary: Ellen Chan a 78 y.o. female who is admitted to the Neuro ICU with high risk of neurologic failure secondary to acute L thalamic ICH with IVH. Interval Hx: Increased work of breathing this morning with minimal improvement after duonebs and chest vest treatment. Repeat CXR with improvement in vascular congestion. ABG: pH 7.53/pCO2 28/pO2 54 Exam: Temp: [36.3 C (97.3 F)-37.2 C (99 F)] 37.2 C (99 F) Pulse: [71-116] 86 Resp: [16-26] 24 BP: (115-159)/(76-95) 137/89 SpO2: [89 %-98 %] 98 % O2 Device: Nasal cannula O2 Flow Rate (L/min): [2 L/min-5 L/min] 5 L/min Intake/Output Summary (Last 24 hours) at 04/06/2023 1424 Last data filed at 04/06/2023 1200 Gross per 24 hour Intake 840 ml Output 850 ml Net -10 ml General: Female, appears stated age, no distress. HEENT: Atraumatic, normocephalic, sclera non-iceteric, not injected, no conjunctival pallor, trachea midline, moist pink mucous membranes, neck supple Neuro: Lethargic. Opens eyes to loud voice and briefly regards examiner on the left. Does not follow commands. Left gaze preference. Pupils are equal and reactive. Weak withdraw to noxious stim in RUE/RLE. Cards: RRR, no M/R/G Pulm: coarse throughout Abd: normoactive BS and soft Ext: no tenderness or edema over bony prominences or joints Skin: warm, pink, no rashes or lesions Relevant Results: I have personally reviewed new lab and imaging results as well as any available finalized reports. I agree with the findings as reported Diagnosis/Assessment/Plan: Acute L Thalamic ICH with IVH as evidenced by clinical exam and imaging data, currently stable hematoma volume on serial imaging from 04/03. Will recommend the following: - SBP goal < 140mmHg - Neurosurgery signed off. - Serial neurochecks Q2H - Normal Na goal 135-145 - Holding off on MRI Brain due to tenuous respiratory status Acute Respiratory Insufficiency in setting of presumed micro-aspiration as evidenced by clinical assessment with normal SpO2 in mid 90's and low pO2 of 54, currently worsening with increasing oxygen requirements. Will recommend the following: - Start broad spectrum antibiotics for possible aspiration pneumonia - CTA chest to rule out PE - Schedule duo-nebs with chest vest therapies Q6H - Send sputum culture - Humidified oxygen to maintain SpO2 > 92% Essential Hypertension as evidenced by clinical assessment/history, currently stable on oral regimen. Will recommend the following: - SBP goal < 140mmHg - Continue amlodipine 10mg daily, coreg 12.5mg BID, and lisinopril 20mg Hypernatremia as evidenced by laboratory data, currently worsening. Will recommend the following: Increase free water to 300cc Q6H. Hold off on additional diuresis. Leukocytosis likely reactive vs aspiration pneumonitis as evidenced by clinical assessment, currently unchanged. Will recommend the following: Send sputum culture and procal. Zosyn started empirically. Thrombocytopenia as evidenced by laboratory data, currently down trending with no active signs of bleeding. Will recommend the following: Continue to monitor. If it reaches below 50, consult hematology/oncology for evaluation. Gen Crit Care: - Access/Indwelling catheters: Larios day 3, NGT in place with tube feeds at goal, PIVs - Prophylaxis: DVT SCDs and heparin subQ; GI senna and home omeprazole - Activity level: OOB to Chair Goals of Care: DNR - ok for temporary intubation POA: Grand Daughter - Roula Dispo: ICU Day 6 Family at bedside and updated on plan I have spent 45 mins of critical care time including direct patient care at the bedside, review of relevant labs/results, discussion with family in a patient with neurological failure and coordination of care. This time is exclusive of teaching and any procedures performed. * Albert Jeronimo [facility] - 04/06/2023 1:01 PM EST [facility] Department of Pharmacy Pharmacist to Physician Communication The dose of piperacillin/tazobactam for pneumonia (facility acquired) has been changed to 4.5g IV x1 infused over 30 minutes followed by 3.375g IV every 8 hours infused over 4 hours starting 4 hoursafter the loading dose per the [facility] approved renal dosing guidelines, based on an estimated creatinine clearance is 55.4 mL/min (by C-G formula based on SCr of 0.7 mg/dL). Thank you, Albert Jeronimo RPH * Artemio Ray MD - 04/06/2023 8:41 AM EST NEUROINTERVENTIONAL DAILY PROGRESS NOTE SUBJECTIVE: Ellen Chan is a 78 y.o. female was transferred from an outside hospital where she presented with right lower extremity weakness, a tele stroke alert was activated, initial NIH was 1, neuroimaging revealed left thalamic ICH with IVH ICH score of 2, with a blood pressure of 155/112. She was started on Cardene infusion for a systolic blood pressure less than 140 and was transferred to [facility] neuro ICU for further management. On arrival, there was decline in her mental status requiring repeat CT scan that showed hematoma expansion. Subsequently neurosurgery was taken on board, however, no surgical intervention was warranted. Neuro critical care was taken on board for medical management. Patient was noted to be mildly thrombocytopenic, with return of platelet count to 114, platelet function test demonstrated drug-induced thrombocytopenia. Patient has since been stable with waxing and waning mental status, intermittently agitated. Repeat CT head remained stable. Stroke risk factors: Hypertension Abdominal aortic aneurism. Hyperlipidemia Interval history: Patient was seen and examined at the bedside. No acute events overnight. Afebrile and hemodynamically stable. Patient not interactive with examiner and is restless. CURRENT MEDICATIONS: dextrose 5 % in water, 100 mL/hr sodium chloride 0.9 %, 10 mL/hr sodium chloride 0.9 %, 10 mL/hr sodium chloride 0.9 %, 10 mL/hr, Last Rate: Stopped (04/02/23804) amLODIPine, 10 mg, nasogastric, Daily bisacodyL, 10 mg, rectal, Q3 Days carvediloL, 12.5 mg, nasogastric, BID heparin (porcine), 5,000 Units, subcutaneous, Q8H DIO lisinopriL, 20 mg, nasogastric, Daily magnesium hydroxide, 30 mL, nasogastric, Q3 Days melatonin, 6 mg, oral, Nightly omeprazole-sodium bicarbonate, 40 mg, nasogastric, Daily sennosides-docusate sodium, 2 tablet, nasogastric, BID PHYSICAL EXAM: Vital Signs: Blood pressure (!) 150/93, pulse 92, temperature 36.6 C (97.9 F), temperature source Axillary, resp. rate (!) 26, height 162.6 cm (5' 4 ), weight 67.5 kg (148 lb 13 oz), SpO2 90%. Respiratory Source: O2 Device: Nasal cannula Physical Exam Neurologic Exam NIH Stroke Scale 1a Level of consciousness: 0=alert; keenly responsive 1b. LOC questions: 2=Performs neither task correctly 1c. LOC commands: 2=Performs neither task correctly 2. Best Gaze: 0=normal 3. Visual: 0=No visual loss 4. Facial Palsy: 1=Minor paralysis (flattened nasolabial fold, asymmetric on smiling) 5a. Motor left arm: 0=No drift, limb holds 90 (or 45) degrees for full 10 seconds 5b. Motor right arm: 3=No effort against gravity, limb falls 6a. motor left le=No drift, limb holds 90 (or 45) degrees for full 10 seconds 6b Motor right le=No movement 7. Limb Ataxia: 0=Absent 8. Sensory: 0=Normal; no sensory loss 9. Best Language: 3=Mute, global aphasia; no usable speech or auditory comprehension 10. Dysarthria: 2=Severe; patient speech is so slurred as to be unintelligible in the absence of orour of proportion to any dysphagia, or is mute/anarthric 11. Extinction and Inattention: 0=No abnormality 12. Distal motor function: 0=Normal Total: 17 Pre morbid Modified Brittney score: 0 Lab Review Lab Results Component Value Date GLU 106 (H) 04/06/2023 CALCIUM 9.5 04/06/2023 K 3.7 04/06/2023 CO2 27 04/06/2023 BUN 39 (H) 04/06/2023 CREATININE 0.70 04/06/2023 Lab Results Component Value Date WBC 16.3 (H) 04/06/2023 HGB 13.1 04/06/2023 HCT 40.3 04/06/2023 MCV 87 04/06/2023 PLT 69 (L) 04/06/2023 Lab Results Component Value Date HGBA1C 5.5 04/01/2023 Lab Results Component Value Date CHOL 243 (H) 04/01/2023 Lab Results Component Value Date LDLCALC 130 (H) 04/01/2023 Lab Results Component Value Date TRIG 99 04/01/2023 Imaging: X-ray chest 1 view Result Date: 04/05/2023 Procedure: Chest x-ray performed Number of views:1 History:Shortness of breath concern for aspiration pneumonia Comparison:04/03/2023 Impression: 1. Tubes and lines are stable. There is new diffuse vascular congestion. There is new right midlung airspace disease. There are no effusions or pneumothorax. 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 Patient was accepted as a transfer from an outside hospital for right-sided weakness. Initial NIH was 1 (right lower extremity weakness), not on blood thinners. On arrival, her neuro exam worsened deeming a repeat head CT with hematoma expansion. Neurosurgery was taken on board, deferred plans for neurosurgical intervention. Neuro critical care remains on board for fluctuating mental status and medical management. Concern for aspiration pneumonia, started on Abx and CC following Hypernatremia Stroke risk factors Hypertension Abdominal aortic aneurysm. Hyperlipidemia. Stroke work up: MRI brain with and without contrast: Pending Echocardiogram: EF 60-65% mildly dilated aortic aorta, trace mitral and tricuspid regurgitation. Hemoglobin A1c: 5.5 LDL: 130 Routine EEG: Left posterior parietotemporal slowing. Plan: -MRI pending -One dose of lasix IV 40mg -Repeat CTH -Obtain ABG and CXR -Zosyn for potential pneumonia -Reconsult ICU -Will need to consider the possibility of a PEG in the future as patient cannot remain dependent onNG -Attempt chair positioning in the bed again today, will consider moving to the bed -cap systolic blood pressure between 110-140, use p.r.n. antihypertensive medications. -NG passed, p.o. blood pressure medications holding parameters, increased Coreg to 12.5 b.i.d., offCardene. -holding IV fluids, encourage PO intake. -repeat stat head CT declining neuro status. -frequent neuro checks. -plans on started statins in the outpatient setting. -on tube feeds via NG. -VTE prophylaxis with subQ heparin. -GI prophylaxis using Pepcid, mechanical VTE prophylaxis, p.r.n. pain medications. Patient was discussed with Dr. Montemayor. Artemio Ray MD Neurology PGY-3 [facility] 8:41 AM 04/06/23 This patient is being followed by the Neurology Resident service. Contact attending directly during these hours: Saturday to 7:30-8:30 A.M. to Saturday 12-1:00 p.m. Primary Neurology service: [phone] Consult neurology service: [phone] Resident Stroke Service: [phone] If the patient belongs to the [facility] service please contact the Stroke [facility] directly. Associated attestation - Arya Montemayor MD - 04/07/2023 6:56 PM EST Patient seen & examined in conjunction with PGY3. I have reviewed and agree with the HPI, ROS, examination, assessment and plan as outlined in the note above. * Artemio Ray MD - 04/05/2023 2:04 PM EST NEUROINTERVENTIONAL DAILY PROGRESS NOTE SUBJECTIVE: Ellen Chan is a 78 y.o. female was transferred from an outside hospital where she presented with right lower extremity weakness, a tele stroke alert was activated, initial NIH was 1, neuroimaging revealed left thalamic ICH with IVH ICH score of 2, with a blood pressure of 155/112. She was started on Cardene infusion for a systolic blood pressure less than 140 and was transferred to [facility] neuro ICU for further management. On arrival, there was decline in her mental status requiring repeat CT scan that showed hematoma expansion. Subsequently neurosurgery was taken on board, however, no surgical intervention was warranted. Neuro critical care was taken on board for medical management. Patient was noted to be mildly thrombocytopenic, with return of platelet count to 114, platelet function test demonstrated drug-induced thrombocytopenia. Patient has since been stable with waxing and waning mental status, intermittently agitated. Repeat CT head remained stable. Stroke risk factors: Hypertension Abdominal aortic aneurism. Hyperlipidemia Interval history: Patient was examined and assessed at bedside today, she was awake, mute, irritable on the bed, hypertensive, but afebrile. No reported overnight events. CURRENT MEDICATIONS: dextrose 5 % in water, 100 mL/hr sodium chloride 0.9 %, 10 mL/hr sodium chloride 0.9 %, 10 mL/hr sodium chloride 0.9 %, 10 mL/hr, Last Rate: Stopped (04/02/23 08) amLODIPine, 10 mg, nasogastric, Daily bisacodyL, 10 mg, rectal, Q3 Days carvediloL, 12.5 mg, nasogastric, BID heparin (porcine), 5,000 Units, subcutaneous, Q8H DIO ipratropium-albuteroL, 3 mL, nebulization, Q6H lisinopriL, 20 mg, nasogastric, Daily magnesium hydroxide, 30 mL, nasogastric, Q3 Days melatonin, 6 mg, oral, Nightly omeprazole-sodium bicarbonate, 40 mg, nasogastric, Daily sennosides-docusate sodium, 2 tablet, nasogastric, BID PHYSICAL EXAM: Vital Signs: Blood pressure 149/80, pulse 85, temperature 36.4 C (97.5 F), temperature source Oral,resp. rate 20, height 162.6 cm (5' 4 ), weight 66.5 kg (146 lb 9.7 oz), SpO2 91%. Respiratory Source: O2 Device: Nasal cannula Physical Exam Neurologic Exam NIH Stroke Scale 1a Level of consciousness: 0=alert; keenly responsive 1b. LOC questions: 2=Performs neither task correctly 1c. LOC commands: 2=Performs neither task correctly 2. Best Gaze: 0=normal 3. Visual: 0=No visual loss 4. Facial Palsy: 1=Minor paralysis (flattened nasolabial fold, asymmetric on smiling) 5a. Motor left arm: 0=No drift, limb holds 90 (or 45) degrees for full 10 seconds 5b. Motor right arm: 3=No effort against gravity, limb falls 6a. motor left le=No drift, limb holds 90 (or 45) degrees for full 10 seconds 6b Motor right le=No movement 7. Limb Ataxia: 0=Absent 8. Sensory: 0=Normal; no sensory loss 9. Best Language: 3=Mute, global aphasia; no usable speech or auditory comprehension 10. Dysarthria: 0=Normal 11. Extinction and Inattention: 0=No abnormality 12. Distal motor function: 0=Normal Total: 15 Pre morbid Modified Houston score: 0 Lab Review Lab Results Component Value Date GLU 169 (H) 04/05/2023 CALCIUM 9.8 04/05/2023 K 3.8 04/05/2023 CO2 26 04/05/2023 BUN 36 (H) 04/05/2023 CREATININE 0.64 04/05/2023 Lab Results Component Value Date WBC 14.5 (H) 04/05/2023 HGB 13.3 04/05/2023 HCT 39.6 04/05/2023 MCV 86 04/05/2023 PLT 68 (L) 04/05/2023 Lab Results Component Value Date HGBA1C 5.5 04/01/2023 Lab Results Component Value Date CHOL 243 (H) 04/01/2023 Lab Results Component Value Date LDLCALC 130 (H) 04/01/2023 Lab Results Component Value Date TRIG 99 04/01/2023 Imaging: No results found. 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 Patient was accepted as a transfer from an outside hospital for right-sided weakness. Initial NIH was 1 (right lower extremity weakness), not on blood thinners. On arrival, her neuro exam worsened deeming a repeat head CT with hematoma expansion. Neurosurgery was taken on board, deferred plans for neurosurgical intervention. Neuro critical care remains on board for fluctuating mental status and medical management. Stroke risk factors Hypertension Abdominal aortic aneurysm. Hyperlipidemia. Stroke work up: MRI brain with and without contrast: Pending Echocardiogram: EF 60-65% mildly dilated aortic aorta, trace mitral and tricuspid regurgitation. Hemoglobin A1c: 5.5 LDL: 130 Routine EEG: Left posterior parietotemporal slowing. Plan: -transfer out of the ICU. -MRI pending -Attempt chair positioning in the bed, will consider moving to the bed tomorrow -cap systolic blood pressure between 110-140, use p.r.n. antihypertensive medications. -NG passed, p.o. blood pressure medications holding parameters, increased Coreg to 12.5 b.i.d., offCardene. -holding IV fluids, encourage PO intake. -repeat stat head CT declining neuro status. -frequent neuro checks. -Neurosurgery, neuro critical Care remains on board. -plans on started statins in the outpatient setting. -on tube feeds via NG. -VTE prophylaxis with subQ heparin. -GI prophylaxis using Pepcid, mechanical VTE prophylaxis, p.r.n. pain medications. Patient was discussed with Dr. Montemayor. Artemio Ray MD Neurology PGY-3 [facility] 2:05 PM 04/05/23 This patient is being followed by the Neurology Resident service. Contact attending directly during these hours: Saturday to 7:30-8:30 A.M. to Saturday 12-1:00 p.m. Primary Neurology service: [phone] Consult neurology service: [phone] Resident Stroke Service: [phone] If the patient belongs to the [facility] service please contact the St[facility] directly. Associated attestation - Arya Montemayor MD - 04/05/2023 11:56 PM EST Patient seen & examined in conjunction with PGY3. I have reviewed and agree with the HPI, ROS, examination, assessment and plan as outlined in the note above. * Mohan De Anda MD - 04/05/2023 9:51 AM EST Images from the original note were not included. [facility] Neurology Neurocritical Care Progress Note: Brief Summary: Ellen Chan a 78 y.o. female who is admitted to the Neuro ICU with high risk of neurologic failure secondary to acute L thalamic ICH with IVH. Interval Hx: She got a dose of hydralazine last night for elevated blood pressure but no other acute events werereported. She appears agitated this morning but her neurological exam is unchanged. Exam: Temp: [36.6 C (97.9 F)-36.9 C (98.4 F)] 36.6 C (97.9 F) Pulse: [54-98] 70 Resp: [-] 17 BP: (117-169)/(59-109) 140/98 FiO2 (%): [28 %] 28 % SpO2: [83 %-100 %] 91 % O2 Device: Nasal cannula O2 Flow Rate (L/min): [2 L/min] 2 L/min Intake/Output Summary (Last 24 hours) at 04/05/2023 0951 Last data filed at 04/05/2023 0800 Gross per 24 hour Intake 767 ml Output 1645 ml Net -878 ml General: Drowsy but wakes up to command, appears appropriate stated age, normal habitus, no acute distress. HEENT: atraumatic, normocephalic, sclera non-iceteric, not injected, no conjunctival pallor, no CSFrhinorrhea or otorrhea, trachea midline, moist pink mucous membranes, Mallampati not checked, neck supple Neuro: Drowsy but wakes up to command. Is non verbal. Has Global aphasia and right gaze preference.Has 1/5 strength in right arm and leg. Left arm and leg appears to be 4+/5. Cards: RRR, no M/R/G Pulm: clear throughout Abd: normoactive BS Ext: no tenderness or edema over bony prominences or joints Skin: warm, pink, no rashes or lesions Relevant Results: I have personally reviewed new lab and imaging results as well as any available finalized reports. I agree with the findings as reported Diagnosis/Assessment/Plan: Neurological Acute L Thalamic ICH with IVH as evidenced by clinical assessment and imaging data, currently stable neurologic exam, ICH with stable midline shift and IVH on repeat CT Head. Will recommend the following: - SBP goal < 140mmHg - Neurosurgery signed off. - Serial neurochecks Q2H - Normal Na goal 135-145 - Started heparin sq for DVT ppx on 04/03. - Transfer to step down unit. Cardiovascular Pulse Min: 54 Max: 98, BP Min: 86/64 Max: 175/110 Essential Hypertension as evidenced by clinical history, currently stable. Will recommend the following: - SBP goal < 140mmHg - Continue home amlodipine 10 mg QD. - continue Coreg to 12.5 mg bid - Start lisinopril 20 mg QD. - Discontinued Hydralazine. Respiratory Acute respiratory insufficiency in setting of altered mental status, as evidenced by clinical assessment currently stable/maintaining airway. Will recommend the following: - Monitor SpO2 with goal of > 92%, stable on 3L NC - Monitor airway closely. - Duo nebs q4h for 24 hours. - Respiratory panel -negative. - Bronchopulmonary hygiene. Renal/Electrolytes Intake/Output Summary (Last 24 hours) at 04/05/2023 0951 Last data filed at 04/05/2023 0800 Gross per 24 hour Intake 767 ml Output 1645 ml Net -878 ml Hypernatremia as evidenced by lab findings, currently stable, likely secondary to dehydration/low water intake. Plan to increase free water flushes to 250 4 times a day as Free water deficit is around 1 liter. - Monitor intake and output - Replete electrolytes as needed Infectious Disease Temp (24hrs), Av.8 C (98.2 F), Min:36.6 C (97.9 F), Max:36.9 C (98.4 F) Leucocytosis without any overt signs of infection as evident by lab data, currently worsening. [place] do Chest Xray to evaluate for aspiration pneumonia. - Monitor for fevers - Tripathi culture if febrile Gastrointestinal Acute dysphagia as evidenced by clinical assessment by speech therapy, currently unchanged. Will recommend the following: Mental status prohibits oral diet. Hold off on video swallowgiven fluctuating mental status. Has NGT and on TF. - PIPE BENDER swallow evaluation: level 6, no liquids. - Diet: TF. - GI ppx: pepcid 20 mg QD - Last BM: none since admission. - BM regimen: On neuro bowel regimen. Endocrine No acute issues. Is non diabetic. Last A1c 5.5. Hematology Thrombocytopenia as evidenced by laboratory data, currently down trending with no active signs of bleeding. Will recommend the following: Continue to monitor. If it reaches below 50, consult hematology/oncology for evaluation. Less likely HIT considering platelets were low prior to starting heparinsq. Prior plt count in 2019 was 138. History of AAA s/p EVAR and TEVAR as evidenced by clinical history, currently stable. Musculoskeletal No acute issues. Gen Crit Care: - Lines: PIVs, Larios Day 3. NG Day 3 - Prophylaxis: EPC + heparin sq + pepcid - Activity: bedrest. Goals of Care: DNR CC-A Dispo: Transfer to step down. Patient was seen and staffed with Dr. Freitas. MOHAN DE ANDA MD Vascular Neurology Fellow. Associated attestation - Christina Freitas DO - 04/05/2023 2:16 PM EST I have seen and examined the patient with the resident physician, Dr. De Anda, and discussed the plan of care with them. I agree with the above documentation with the following exceptions/additions: Exam: Lethargic. Opens eyes to loud voice and briefly regards examiner on the left. Does not followcommands. Left gaze preference. Pupils are equal and reactive. Weak withdraw to noxious stim in RUE/RLE. I have personally reviewed all lab and imaging data including any available finalized reports. Agree with assessment and plan as outlined above. No further Neurocritical care needs at this time. Neurocritical care team will sign off, please call back with additional questions or concerns. I have spent 35 mins of critical care time including direct patient care at the bedside, review of relevant labs/results, discussion with the multidisciplinary team and coordination of care. This time is exclusive of any procedures performed. * CLAIR Rosario - 04/04/2023 12:29 PM EST NUTRITION ADULT FOLLOW UP NOTE NUTRITION ASSESSMENT: Brief Clinical Summary: Patient initially presented to OSH with right sided weakness. 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 Pt remains NPO, not ready for oral diet per PIPE BENDER. Biochemical Data, Medical Tests, and Procedures: 04/01 CT brain: Enlarging left basal ganglia intraparenchymal hemorrhage with worsening intraventricular extension. 04/01 Soft and Bite Sized and no liquids. However, per MD hold off on oral diet d/t mentation. VFSSon hold. 04/04- remains NPO Labs: Results from last 3 days Lab Units 04/04/23 0824 04/04/23 0330 04/03/23 0335 04/02/23 1302 04/02/23 0506 SODIUM mmol/L -- 146 144 -- 145 POTASSIUM mmol/L 3.8 3.6 3.9 < > 3.5 CHLORIDE mmol/L -- 110* 109 -- 105 CO2 mmol/L -- 27 26 -- 27 BUN mg/dL -- 29* 27 -- 19 CREATININE mg/dL -- 0.64 0.74 -- 0.72 CALCIUM mg/dL -- 9.5 9.6 -- 9.6 ALBUMIN g/dL -- 3.7 4.0 -- 4.0 ALK PHOS U/L -- 71 71 -- 71 ALT U/L -- 14 9 -- 9 AST U/L -- 21 19 -- 15 < > = values in this interval not displayed. Results from last 7 days Lab Units 04/04/23 0330 04/03/23 0335 04/02/23 1302 04/02/23 0506 04/01/23 0645 04/01/23 0411 BEDSIDE GLUCOSE mg/dL -- -- 124* -- -- 101* GLUCOSE mg/dL 147* 114* -- 123* 112* -- Results from last 3 days Lab Units 04/04/23 0330 04/03/23 0335 04/02/23 0354 WBC X10E9/L 11.1* 13.7* 12.7* HEMOGLOBIN g/dL 11.9 13.4 13.1 HEMATOCRIT % 35.8 40.1 39.1 PLATELETS X10E9/L 70* 96* 114* MCV fL 87 85 86 Results from last 3 days Lab Units 04/04/23 0330 04/03/23 0335 04/02/23 0506 TOTAL BILIRUBIN mg/dL 0.6 0.6 0.6 Lab Results Component Value Date HGBA1C 5.5 04/01/2023 Lab Results Component Value Date CHOL 243 (H) 04/01/2023 Lab Results Component Value Date CHDL 2.6 04/01/2023 Lab Results Component Value Date HDL 93 04/01/2023 Lab Results Component Value Date LDLCALC 130 (H) 04/01/2023 Lab Results Component Value Date TRIG 99 04/01/2023 Lab Results Component Value Date VERYLOWLIP 20 04/01/2023 Comments (labs): Reviewed Medications/ Parenteral: Pepcid,neuro bowel regimen has been started Current Facility-Administered Medications Medication Dose Route Frequency Provider Last Rate Last Admin acetaminophen (TYLENOL) 650 mg/20.3 mL solution 650 mg 650 mg nasogastric Q6H PRN Christina Leah Mendozaor, DO amLODIPine (NORVASC) tablet 10 mg 10 mg nasogastric Daily Christina Leah Swor, DO 10 mg at 04/04/23 0838 [START ON 04/05/2023] bisacodyL (DULCOLAX) suppository 10 mg 10 mg rectal Q3 Days Christina Freitas, DO calcium gluconate IVPB 1000 mg/50 mL (20 mg/mL premix) 1,000 mg intravenous PRN Ry De Anda MD Or calcium gluconate IVPB 2000 mg/100 mL (20 mg/mL premix) 2,000 mg intravenous PRN Ry De Anda MD Or calcium gluconate 3,000 mg in sodium chloride 0.9 % 100 mL IVPB 3,000 mg intravenous PRN Ry De Anda MD carvediloL (COREG) tablet 12.5 mg 12.5 mg nasogastric BID Jordan Hassan MD dextrose (GLUTOSE) 40 % gel 15 g 15 g oral PRN Ry De Anda MD dextrose 5 % (D5W) infusion 100 mL/hr intravenous Continuous PRN Ry De Anda MD dextrose 50 % in water (D50W) 50% solution 25 mL 25 mL intravenous PRN Ry De Anda MD glucagon HCL injection 1 mg 1 mg intramuscular PRN Ry De Anda MD heparin (porcine) injection 5,000 Units 5,000 Units subcutaneous Q8H [facility] Jordan Hassan MD 5,000 Units at 04/04/23 0527 hydrALAZINE (APRESOLINE) injection 10 mg 10 mg intravenous Q4H PRN Christina Leah Swor, DO 10 mg at 04/04/23 0604 hydrALAZINE (APRESOLINE) tablet 25 mg 25 mg nasogastric Q8H [facility] Christina Mendozaor, DO 25 mg at 04/04/23 1106 ipratropium-albuteroL (DUONEB) 0.5 mg-3 mg(2.5 mg base)/3 mL nebulizer solution 3 mL 3 mL nebulization Q6H Mohan De Anda MD 3 mL at 04/04/23 0926 ipratropium-albuteroL (DUONEB) 0.5 mg-3 mg(2.5 mg base)/3 mL nebulizer solution 3 mL 3 mL nebulization Q4H PRN Mohan De Anda MD labetaloL (NORMODYNE,TRANDATE) injection 10 mg 10 mg intravenous Q5 Min PRN Christina Freitas, DO 10 mg at 04/04/23 0840 magnesium hydroxide (MILK OF MAGNESIA) suspension 30 mL 30 mL nasogastric Q3 Days Christina Freitas, DO magnesium sulfate IVPB 2000 mg/50 mL in iso-osmotic water (40 mg/mL premix) 2,000 mg intravenous PRN Ry De Anda MD Or magnesium sulfate IVPB 4000 mg/100 mL in iso-osmotic water (40 mg/mL premix) 4,000 mg intravenous PRN Ry De Anda MD omeprazole-sodium bicarbonate (KONVOMEP) 2-84 mg/mL oral suspension 40 mg 40 mg nasogastric Daily Christina Freitas DO ondansetron (PF) (ZOFRAN) injection 4 mg 4 mg intravenous Q6H PRN Christina Freitas, DO 4 mg at106/03/22 0342 potassium chloride (K-TAB,KLOR-CON) CR tablet 20-50 mEq 20-50 mEq oral PRN Ry De Anda MD Or potassium chloride (KAYCIEL) 20 mEq/15 mL solution 20-50 mEq 20-50 mEq oral PRN Ry De Anda MD 30 mEq at 04/04/23 1107 potassium chloride IVPB 10 mEq/50 mL in water (0.2 mEq/mL premix) 10 mEq intravenous PRN Ry De Anda MD Or potassium chloride IVPB 10 mEq/100 mL in water (0.1 mEq/mL premix) 10 mEq intravenous PRN Ry De Anda MD Stopped at 04/02/23 1058 sennosides-docusate sodium (SENOKOT-S) 8.6-50 mg 2 tablet 2 tablet nasogastric BID Christina Penn, DO 2 tablet at 04/03/232118 sodium phosphate 20 mmol in sodium chloride 0.9 % 250 mL IVPB 20 mmol intravenous PRN Ry De Anda MD Or sodium phosphate 20 mmol in sodium chloride 0.9 % 100 mL IVPB 20 mmol intravenous PRN Ry De Anda MD Or sod phos di, mono-K phos mono (K-PHOS NEUTRAL) 250 mg tablet 2 tablet 2 tablet oral PRN Ry De Anda MD sodium chloride 0.9 % infusion 10 mL/hr intravenous Continuous PRN Ry De Anda MD sodium chloride 0.9 % infusion 10 mL/hr intravenous Continuous PRN Ry De Anda MD sodium chloride 0.9 % infusion 10 mL/hr intravenous Continuous PRN Ry De Anda MD Stopped at 04/02/23 0805 Nutrition Focused Physical Findings +NGT, Last BM unknown Skin (per nursing flow sheets): Skin Color: Pale (04/04/23 0800) Skin Temp: Warm; Dry (04/04/23 0800) Wound (per nursing flow sheets): --- Gastrointestinal (per nursing flow sheets): Abdomen Assessment: Soft; Rounded (04/04/23 0800) RUQ Bowel Sounds: Active (04/04/23 0800) LUQ Bowel Sounds: Active (04/04/23 0800) RLQ Bowel Sounds: Active (04/04/23 0800) LLQ Bowel Sounds: Active (04/04/23 0800) GI Symptoms: None (04/03/23 1600) Edema (per nursing flow sheets): --- Intake/ Output Last 24 hrs: Intake/Output Summary (Last 24 hours) at 04/04/2023 1229 Last data filed at 04/04/2023 0800 Gross per 24 hour Intake 981.34 ml Output 1700 ml Net -718.66 ml Allergies: Allergies Allergen Reactions Ciprofloxacin Headache Alendronate Bee Venom Protein (Honey Bee) feels like my eyes are spinning around Ugfyzcpz-Uewvmqvevte-Jlvkjtltf Oxycodone Headache I just don't want to take it Diet/ Nutrition Order Review: Dietary Orders (From admission, onward) Start Ordered 04/02/23 1509 Tube feeding No tray-Continuous Tube feeding No Tray-Continuous; Nasogastric or Oral gastric feeding tube; Standard 1.5 kcal; 15; 10; Every 8 hours; 45 Continuous Comments: Formula: Osmolite 1.5 References: Formulary Card Question Answer Comment Diet Type: Tube feeding No Tray-Continuous Tube Type: Nasogastric or Oral gastric feeding tube Tube Feeding Formula: Standard 1.5 kcal Tube Feeding Start Rate (mL/hour): 15 Increase Rate by (mL/hour): 10 Frequency of Rate increase: Every 8 hours Goal Rate (mL/hour): 45 04/02/23 1509 Diet Intakes: NPO (04/01) TF 04/02- Osmolite 1.5 04/04- at Osmolite 1.5 goal 45ml/hr Anthropometrics: Ht Readings from Last 1 Encounters: 04/01/23 162.6 cm (5' 4 ) Wt Readings from Last 20 Encounters: 04/04/23 66.3 kg (146 lb 2.6 oz) 06/03/19 73.9 kg (163 lb) 05/26/19 73.9 kg (163 lb) 05/18/19 73.9 kg (163 lb) 05/11/19 73.9 kg (163 lb) Last 3 Weight Readings 04/01/23 2200 04/03/23 0500 04/04/23 0130 Weight: 67.1 kg (147 lb 14.9 oz) 65.7 kg (144 lb 13.5 oz) 66.3 kg (146 lb 2.6 oz) Admit Weight: 67.1kg (04/01; bed scale) Almond Body Weight: 54.5kg Percent Almond Body Weight: 123 Body Mass Index: Body mass index is 25.09 kg/m . BMI Category: Pre-obese (25.00- 29.99) Comparative Standards: Estimated Energy Needs: 7728-0755 kcals daily. Method and weight used: 25-30 kcal/kg IBW (54.5kg) Estimated Protein Needs: 65-110 grams daily. Method and weight used: 1.2-2g protein/kg IBW Estimated Fluid Needs: 3761-6019 ml daily. Method weight used: 1ml/kcal Comments: General needs Malnutrition Status: Malnutrition Present: ABDULLAHI NUTRITION DIAGNOSIS: Intake Diagnosis: Inadequate protein-energy intake (NI 5.3) TF meeting needs NUTRITION INTERVENTIONS: Enteral Nutrition: Continue Osmolite 1.5 at 1 goal rate of 45ml/hr. This provides 1080ml formula, 1620kcals, 68gm protein, 823ml free water, and 100% RDI's for vitamins/minerals. RECOMMENDATIONS: Monitor labs and replace PRN. If/when IV fluids discontinued, recommend starting free water flushes: 200ml 4x/day.Defer flushes to MD at this time GOAL(S): Meet estimated calorie and protein needs. NUTRITION MONITORING AND EVALUATION: TF tolerance, weight trend, labs, POC and overall status. Balbina Neil R.D,LGustavo. Clinical dietitian Patient Touch extension:[phone] Direct Dial phone number: [phone] 04/04/23 12:38 PM * Jordan Hassan MD - 04/04/2023 9:12 AM EST NEUROINTERVENTIONAL DAILY PROGRESS NOTE SUBJECTIVE: Ellen Chan is a 78 y.o. female was transferred from an outside hospital where she presented with right lower extremity weakness, a tele stroke alert was activated, initial NIH was 1, neuroimaging revealed left thalamic ICH with IVH ICH score of 2, with a blood pressure of 155/112. She was started on Cardene infusion for a systolic blood pressure less than 140 and was transferred to [facility] neuro ICU for further management. On arrival, there was decline in her mental status requiring repeat CT scan that showed hematoma expansion. Subsequently neurosurgery was taken on board, however, no surgical intervention was warranted. Neuro critical care was taken on board for medical management. Patient was noted to be mildly thrombocytopenic, with return of platelet count to 114, platelet function test demonstrated drug-induced thrombocytopenia. Patient has since been stable with waxing and waning mental status, intermittently agitated. Repeat CT head remained stable. Stroke risk factors: Hypertension Abdominal aortic aneurism. Hyperlipidemia Interval history: Patient was examined and assessed at bedside today, she was awake, mute, irritable on the bed, hypertensive, but afebrile, reactive leukocytosis. No reported overnight events. CURRENT MEDICATIONS: dextrose 5 % in water, 100 mL/hr sodium chloride 0.9 %, 10 mL/hr sodium chloride 0.9 %, 10 mL/hr sodium chloride 0.9 %, 10 mL/hr, Last Rate: Stopped (04/02/23 0805) amLODIPine, 10 mg, nasogastric, Daily [START ON 04/05/2023] bisacodyL, 10 mg, rectal, Q3 Days carvediloL, 6.25 mg, nasogastric, BID heparin (porcine), 5,000 Units, subcutaneous, Q8H DIO hydrALAZINE, 25 mg, nasogastric, Q8H DIO ipratropium-albuteroL, 3 mL, nebulization, Q6H magnesium hydroxide, 30 mL, nasogastric, Q3 Days omeprazole-sodium bicarbonate, 40 mg, nasogastric, Daily sennosides-docusate sodium, 2 tablet, nasogastric, BID PHYSICAL EXAM: Vital Signs: Blood pressure 144/77, pulse 54, temperature 36.8 C (98.2 F), temperature source Axillary, resp. rate 19, height 162.6 cm (5' 4 ), weight 66.3 kg (146 lb 2.6 oz), SpO2 94%. Respiratory Source: O2 Device: Nasal cannula Physical Exam Neurologic Exam NIH Stroke Scale 1a Level of consciousness: 0=alert; keenly responsive 1b. LOC questions: 2=Performs neither task correctly 1c. LOC commands: 2=Performs neither task correctly 2. Best Gaze: 0=normal 3. Visual: 0=No visual loss 4. Facial Palsy: 1=Minor paralysis (flattened nasolabial fold, asymmetric on smiling) 5a. Motor left arm: 0=No drift, limb holds 90 (or 45) degrees for full 10 seconds 5b. Motor right arm: 3=No effort against gravity, limb falls 6a. motor left le=No drift, limb holds 90 (or 45) degrees for full 10 seconds 6b Motor right le=No movement 7. Limb Ataxia: 0=Absent 8. Sensory: 0=Normal; no sensory loss 9. Best Language: 3=Mute, global aphasia; no usable speech or auditory comprehension 10. Dysarthria: 0=Normal 11. Extinction and Inattention: 0=No abnormality 12. Distal motor function: 0=Normal Total: 15 Pre morbid Modified Houston score: 0 Lab Review Lab Results Component Value Date GLU 147 (H) 04/04/2023 CALCIUM 9.5 04/04/2023 K 3.8 04/04/2023 CO2 27 04/04/2023 BUN 29 (H) 04/04/2023 CREATININE 0.64 04/04/2023 Lab Results Component Value Date WBC 11.1 (H) 04/04/2023 HGB 11.9 04/04/2023 HCT 35.8 04/04/2023 MCV 87 04/04/2023 PLT 70 (L) 04/04/2023 Lab Results Component Value Date HGBA1C 5.5 04/01/2023 Lab Results Component Value Date CHOL 243 (H) 04/01/2023 Lab Results Component Value Date LDLCALC 130 (H) 04/01/2023 Lab Results Component Value Date TRIG 99 04/01/2023 Imaging: EEG Video Monitoring Daily Result Date: 04/03/2023 Continuous video EEG monitoring study 04/03/2023 Date of Report: 04/03/2023 History: This is an 78 yo woman with altered mental status Procedure: Start: 06:36 End: 11:54 This is a standard [facility] EEG monitoring report using scalp and ear electrodes in the 10-20 international System. Recording was reviewed with multiple reformatted montages. Quantitative digital analysis data was utilized as needed.Technical Description: Well-defined up to 8 Hz posterior dominant rhythm was noted at times during this recording. The anterior posterior gradient was present. The background was continuous and asymmetric and consisted of polymorphic admixed theta and delta waves with slower frequencies noted on the left posterior parietotemporal region. Variability was present. Reactivity was present. Sleep changes were noted with attenuation of the background and appearance of vertex waves and sleep spindles.No definite interictal epileptiform activity in the form of spike or sharp wave is noted. Clinical I nterpretation: This EEG is abnormal due to the presence of left posterior parietotemporal background slowing suggestive of left posterior parietotemporal cerebral dysfunction on top of mild generalized background slowing consistent with mild bihemispheric dysfunction that may be seen in postictal states, hypoxic, toxic or metabolic abnormalities, sedative medications use or primary neurological disorders. Darnell Buenrostro MD [facility]phys[facility] Echo complete W/O contrast Result Date: 04/03/2023 Left Ventricle: Systolic function is normal with an ejection fraction of 60-65%. Mitral Valve: There is mild regurgitation. There is no evidence of mitral valve stenosis. 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 Patient was accepted as a transfer from an outside hospital for right-sided weakness. Initial NIH was 1 (right lower extremity weakness), not on blood thinners. On arrival, her neuro exam worsened deeming a repeat head CT with hematoma expansion. Neurosurgery was taken on board, deferred plans for neurosurgical intervention. Neuro critical care remains on board for fluctuating mental status and medical management. Stroke risk factors Hypertension Abdominal aortic aneurysm. Hyperlipidemia. Stroke work up: MRI brain with and without contrast: Pending Echocardiogram: EF 60-65% mildly dilated aortic aorta, trace mitral and tricuspid regurgitation. Hemoglobin A1c: 5.5 LDL: 130 Routine EEG: Left posterior parietotemporal slowing. Plan: -transfer out of the ICU. -cap systolic blood pressure between 110-140, use p.r.n. antihypertensive medications. -NG passed, p.o. blood pressure medications holding parameters, increased Coreg to 12.5 b.i.d., offCardene. -VTE prophylaxis with subQ heparin. -holding IV fluids, encourage PO intake. -GI prophylaxis using Pepcid, mechanical VTE prophylaxis, p.r.n. pain medications. -repeat stat head CT declining neuro status. -frequent neuro checks. -Neurosurgery, neuro critical Care remains on board. -plans on started statins in the outpatient setting. -on tube feeds via NG. -awaiting PT OT ST recommendations Patient was discussed with Dr. Montemayor. Jordan Hassan MD PGY3 neurology resident [facility] This patient is being followed by the Neurology Resident service. Contact attending directly during these hours: Saturday to 7:30-8:30 A.M. to Saturday 12-1:00 p.m. Primary Neurology service: [phone] Consult neurology service: [phone] Resident Stroke Service: [phone] If the patient belongs to the [facility] service please contact the [facility] directly. Associated attestation - Arya Montemayor MD - 04/05/2023 9:01 AM EST Patient seen & examined in conjunction with PGy3. I have reviewed and agree with the HPI, ROS, examination, assessment and plan as outlined in the note above. * Mohan De Anda MD - 04/04/2023 8:01 AM EST Images from the original note were not included. [facility] Neurology Neurocritical Care Progress Note: Brief Summary: Ellen Chan a 78 y.o. female who is admitted to the Neuro ICU with high risk of neurologic failure secondary to acute L thalamic ICH with IVH. Interval Hx: She was given 3 doses of IV PRNs for blood pressure last night. No acute issue were reported otherwise. Exam this morning is unchanged. Exam: Temp: [36.1 C (97 F)-36.8 C (98.2 F)] 36.8 C (98.2 F) Pulse: [59-93] 77 Resp: [14-22] 14 BP: (115-164)/(62-118) 142/89 FiO2 (%): [28 %] 28 % SpO2: [90 %-100 %] 94 % O2 Device: Nasal cannula O2 Flow Rate (L/min): [2 L/min-3 L/min] 2 L/min Intake/Output Summary (Last 24 hours) at 04/04/2023 0801 Last data filed at 04/04/2023 0515 Gross per 24 hour Intake 981.34 ml Output 2000 ml Net -1018.66 ml General: Drowsy but wakes up to command, appears appropriate stated age, normal habitus, no acute distress. HEENT: atraumatic, normocephalic, sclera non-iceteric, not injected, no conjunctival pallor, no CSFrhinorrhea or otorrhea, trachea midline, moist pink mucous membranes, Mallampati not checked, neck supple Neuro: Drowsy but wakes up to command. Is mostly non verbal. Has Global aphasia and right gaze preference. Has 1/5 strength in right arm and leg. Left arm and leg appears to be 4+/5. Cards: RRR, no M/R/G Pulm: clear throughout Abd: normoactive BS Ext: no tenderness or edema over bony prominences or joints Skin: warm, pink, no rashes or lesions Relevant Results: I have personally reviewed new lab and imaging results as well as any available finalized reports. I agree with the findings as reported Diagnosis/Assessment/Plan: Neurological Acute L Thalamic ICH with IVH as evidenced by clinical assessment and imaging data, currently stable neurologic exam, ICH with stable midline shift and IVH on repeat CT Head. Will recommend the following: - SBP goal < 140mmHg - Neurosurgery consulted, no EVD for now. - Serial neurochecks Q2H - Normal Na goal 135-145 - Started heparin sq for DVT ppx on 04/03. Cardiovascular Pulse Min: 59 Max: 97, BP Min: 86/64 Max: 175/110 Essential Hypertension as evidenced by clinical history, currently improving on low dose nicardipine drip. Will recommend the following: - SBP goal < 140mmHg - Continue home amlodipine 10 mg QD. - Increase Coreg to 12.5 mg bid - Wean off nicardipine drip. Respiratory Acute respiratory insufficiency in setting of altered mental status, as evidenced by clinical assessment currently worsening but maintaining airway. Will recommend the following: - Monitor SpO2 with goal of > 92%, stable on 3L NC - Monitor airway closely. - Respiratory panel -negative. - Bronchopulmonary hygiene. Renal/Electrolytes Intake/Output Summary (Last 24 hours) at 04/04/2023 0801 Last data filed at 04/04/2023 0515 Gross per 24 hour Intake 981.34 ml Output 2000 ml Net -1018.66 ml No acute issues. - Monitor intake and output - Replete electrolytes as needed Infectious Disease Temp (24hrs), Av.5 C (97.7 F), Min:36.1 C (97 F), Max:36.8 C (98.2 F) Leucocytosis without any overt signs of infection as evident by lab data, currently improving. Planis to monitor for now. Can be reactive to IPH. Will do infectious workup if she spikes fever. - Monitor for fevers - Tripathi culture if febrile Gastrointestinal Acute dysphagia as evidenced by clinical assessment by speech therapy, currently unchanged. Will recommend the following: Mental status prohibits oral diet. Hold off on video swallowgiven fluctuating mental status. Has NGT and on TF. - PIPE BENDER swallow evaluation: level 6, no liquids. - Diet: TF. - GI ppx: pepcid 20 mg QD - Last BM: none since admission. - BM regimen: Sennakot 2 tabs BID Endocrine No acute issues. Is non diabetic. Last A1c 5.5. Hematology Thrombocytopenia as evidenced by laboratory data, currently down trending with no active signs of bleeding. Will recommend the following: Continue to monitor. Prior plt count in 2019 was 138. History of AAA s/p EVAR and TEVAR as evidenced by clinical history, currently stable. Musculoskeletal No acute issues. Gen Crit Care: - Lines: PIVs, Larios Day 2. NG Day 2. - Prophylaxis: EPC + heparin sq + pepcid - Activity: bedrest. Goals of Care: DNR CC-A Dispo: ICU monitoring Patient was seen and staffed with Dr. Freitas. MOHAN DE ANDA MD Vascular Neurology Fellow. Associated attestation - Christina Freitas DO - 04/04/2023 12:45 PM EST I have seen and examined the patient with the resident physician, Dr. De Anda, and discussed the plan of care with them. I agree with the above documentation with the following exceptions/additions: Exam: Lethargic. Opens eyes to loud voice and regards examiner. Aphasic. Does not follow commands. Left gaze preference but able to cross midline. Localizes to noxious stim in RUE. I have personally reviewed all lab and imaging data including any available finalized reports. I have spent 35 mins of critical care time including direct patient care at the bedside, review of relevant labs/results, discussion with the multidisciplinary team and coordination of care. This time is exclusive of any procedures performed. * Jordan Hassan MD - 04/03/2023 9:59 AM EST NEUROINTERVENTIONAL DAILY PROGRESS NOTE SUBJECTIVE: Ellen Chan is a 78 y.o. female was transferred from an outside hospital where she presented with right lower extremity weakness, a tele stroke alert was activated, initial NIH was 1, neuroimaging revealed left thalamic ICH with IVH ICH score of 2, with a blood pressure of 155/112. She was started on Cardene infusion for a systolic blood pressure less than 140 and was transferred to [facility] neuro ICU for further management. On arrival, there was decline in her mental status requiring repeat CT scan that showed hematoma expansion. Subsequently neurosurgery was taken on board, however, no surgical intervention was warranted. Neuro critical care was taken on board for medical management. Patient was noted to be mildly thrombocytopenic, with return of platelet count to 114, platelet function test demonstrated drug-induced thrombocytopenia. Patient has since been stable with waxing and waning mental status, intermittently agitated. Repeat CT head remained stable. Stroke risk factors: Hypertension Abdominal aortic aneurism. Interval history: Examined and assessed at the bedside today, awake, alert and oriented to self, remains plegic on the right side, within the blood pressure parameters. No reported overnight events Family at bedside, provided information of her current clinical condition, transition of care closeto discharge. CURRENT MEDICATIONS: dextrose 5 % in water, 100 mL/hr niCARdipine, 5-15 mg/hr, Last Rate: 5 mg/hr (04/03/23 06) sodium chloride 0.9 %, 10 mL/hr sodium chloride 0.9 %, 10 mL/hr sodium chloride 0.9 %, 10 mL/hr, Last Rate: Stopped (04/02/23 0805) amLODIPine, 10 mg, nasogastric, Daily carvediloL, 6.25 mg, nasogastric, BID famotidine, 20 mg, intravenous, Q24H DIO sennosides-docusate sodium, 2 tablet, nasogastric, BID PHYSICAL EXAM: Vital Signs: Blood pressure (!) 114/97, pulse 91, temperature 36.3 C (97.3 F), temperature source Axillary, resp. rate 19, height 162.6 cm (5' 4 ), weight 65.7 kg (144 lb 13.5 oz), SpO2 97%. Respiratory Source: O2 Device: Nasal cannula Physical Exam Neurologic Exam NIH Stroke Scale 1a Level of consciousness: 0=alert; keenly responsive 1b. LOC questions: 2=Performs neither task correctly 1c. LOC commands: 2=Performs neither task correctly 2. Best Gaze: 0=normal 3. Visual: 0=No visual loss 4. Facial Palsy: 1=Minor paralysis (flattened nasolabial fold, asymmetric on smiling) 5a. Motor left arm: 0=No drift, limb holds 90 (or 45) degrees for full 10 seconds 5b. Motor right arm: 3=No effort against gravity, limb falls 6a. motor left le=No drift, limb holds 90 (or 45) degrees for full 10 seconds 6b Motor right le=No movement 7. Limb Ataxia: 0=Absent 8. Sensory: 0=Normal; no sensory loss 9. Best Language: 2=Severe aphasia; all communication is through fragmentary expression; great needfor inference, questioning, and guessing by the listener 10. Dysarthria: 0=Normal 11. Extinction and Inattention: 0=No abnormality 12. Distal motor function: 0=Normal Total: 14 Pre morbid Modified Houston score: 0 Lab Review Lab Results Component Value Date GLU 114 (H) 04/03/2023 CALCIUM 9.6 04/03/2023 K 3.9 04/03/2023 CO2 26 04/03/2023 BUN 27 04/03/2023 CREATININE 0.74 04/03/2023 Lab Results Component Value Date WBC 13.7 (H) 04/03/2023 HGB 13.4 04/03/2023 HCT 40.1 04/03/2023 MCV 85 04/03/2023 PLT 96 (L) 04/03/2023 Lab Results Component Value Date HGBA1C 5.5 04/01/2023 Lab Results Component Value Date CHOL 243 (H) 04/01/2023 Lab Results Component Value Date LDLCALC 130 (H) 04/01/2023 Lab Results Component Value Date TRIG 99 04/01/2023 Imaging: X-ray chest 1 view Result Date: 04/03/2023 Single view chest History:Concern for aspiration pneumonia Difficulty breathing, shortness of breath Comparison: 04/02/2023 Findings: Single portable view of the chest. Stable cardiomediastinal silhouette and atherosclerotic tortuous thoracic aorta. Enteric catheter since the stomach. Stable thoracic aortic stent graft. No new focal opacity, effusion or pneumothorax. Impression: No evidence of acute cardiopulmonary process. Finalized by Caro Kramer MD on 04/03/2023 9:02 AM EEG Video Monitoring Daily Result Date: 04/03/2023 Continuous video EEG monitoring study Date of Report: 04/03/2023 History: This is an 78 yo woman with altered mental status Procedure: Start: 13:48 04/02/2023 End: 06:34 04/03/2023 This is a [facility] EEG monitoring report using scalp and ear electrodes in the 10-20 international System. Recording was reviewed with multiple reformatted montages. Quantitative digital analysis data was utilizedas needed. Technical Description: Well-defined up to 8 Hz posterior dominant rhythm was noted at times during this recording. The anterior posterior gradient was present. The background was continuous and asymmetric and consisted of polymorphic admixed theta and delta waves with slower frequencies noted on the left posterior parietotemporal region. Variability was present. Reactivity was present.Sleep changes were noted with attenuation of the background and appearance of vertex waves and sleep spindles. No definite interictal epileptiform activity in the form of spike or sharp wave is noted. Clinical Interpretation: This EEG is abnormal due to the presence of left posterior parietal temporal background slowing suggestive of left posterior parietotemporal cerebral dysfunction on top of mild generalized background slowing consistent with mild bihemispheric dysfunction that may be seen in postictal states, hypoxic, toxic or metabolic abnormalities, sedative medications use or primary neurological disorders. Darnell Buenrostro MD [facility] X-ray abdomen NG Tube placement 1 view Result Date: 04/03/2023 CLINICAL INFORMATION: NG tube. TECHNIQUE: Abdomen single view AP supine. COMPARISON: None. FINDINGSAortic stent in place. Elevated right hemidiaphragm. Enteric tube tip projects over the stomach. IMPRESSION: * Enteric tube tip projects over the stomach. Approved by Resident Dulce Price DO on 04/03/2023 5:28 AM ICaro MD have personally reviewed the image(s) and agree with and/or edited the report Finalized by Caro Gilliland MD on 04/03/2023 5:[address] brain without contrast Result Date: 04/03/2023 CLINICAL INFORMATION: Follow-up stroke, intracranial hemorrhage. TECHNIQUE: CT head without contrast. All CT scans at this facility use dose modulation, iterative reconstruction, and/or weight based dosing when appropriate to reduce radiation dose to as low as reasonably achievable. COMPARISON: 04/02/2023. FINDINGS: Examination compromised by streak artifact from EEG leads. The osseous structuresof the calvarium and skull base are intact. Redemonstration multifocal multicompartmental intracranial hemorrhage. * Left basal ganglia intraparenchymal hemorrhage measures up to 4.0 cm, unchanged. Unchanged 3 mm rightward shift of midline structures. * Small amount of intraventricular hemorrhage, unchanged. * Acute subarachnoid hemorrhage in the right sylvian fissure is unchanged. * Subarachnoid/cortical hemorrhage in the inferior left frontal lobe appears slightly increased. Ventricles are unchanged in size, with similar mild effacement of the left lateral ventricle. Bilateral intraocular le ns replacements. Air-fluid level in the lower right maxillary sinus with aerosolized secretions, unchanged. IMPRESSION: * Acute multifocal multicompartmental intracranial hemorrhage, with slight increase of left frontal cortical/subarachnoid hemorrhage, otherwise stable. Similar 3 mm rightward shift of midline structures. Approved by Resident Dulce Price DO on 04/03/2023 3:38 AM IMirlande MD have personally reviewed the image(s) and agree with and/or edited the report Finalized by Mirlande Simmons MD on 04/03/2023 4:42 AM Baseline Routine EEG Result Date: 04/02/2023 History This is a routine EEG in a patient with underlying encephalopathy,. Procedure This is a standard digital EEG performed in the 10-20 International system and was reviewed with multiple reformattable montages Technical Description There is well defined up to 8 Hz posterior dominant rhythm noted at times during this recording. The background is primarily composed of semirhythmical 20-40 uv theta and delta and theta range frequencies. Semi rhythmical theta and delta range activity is intermixed with occasional beta activity noted over the frontal and central region. There is intermittent a ttenuation of the background frequencies with appearance of vertex waves, sleep spindles and K complexes. Hyperventilation is deferred. Photic stimulation is not done. There is no evidence of definite epileptiform activity during this study Clinical Interpretation This EEG in the awake and sleep states is abnormal due to the presence of mild generalized background slowing suggestive of mild bi-hemispheric cerebral dysfunction that can be seen in post ictal states, metabolic, hypoxic or toxic encephalopathies, sedative medication use or primary neurological disorders. Darnell Buenrostro MD AssistantProfessor Neurology/Neurophysiology [facility] X-ray chest 1 view Result Date: 04/02/2023 CHEST SINGLE AP VIEW 04/02/2023 12:28 PM CLINICAL INDICATION: coarse lung sounds, check for aspiration pneumonia COMPARISON: Chest 1 view 03/31/2023 IMPRESSION: 1. Enteric tube terminates in the right upper quadrant likely within the distal stomach or proximal duodenum. 2. No evidence of pneumonia.3. Cardiac silhouette is borderline enlarged. Mild pulmonary vascular congestion. No evidence of pneumothorax or pleural effusion. Elevated right hemidiaphragm. Finalized by Ramses Cobb MD on 04/02/2023 12:40 PM ASSESSMENT/PLAN: This is an 78-year-old female, currently admitted to the neuro ICU for left thalamic hemorrhagic stroke with intraventricular extension ICH score of 3. Patient was accepted as a transfer from an outside hospital for right-sided weakness. Initial NIH was 1 (right lower extremity weakness), not on blood thinners. On arrival, her neuro exam worsened deeming a repeat head CT with hematoma expansion. Neurosurgery was taken on board, deferred plans for neurosurgical intervention. Neuro critical care remains on board for fluctuating mental status and medical management. Stroke risk factors Hypertension Abdominal aortic aneurysm. Stroke work up: MRI brain with and without contrast: Pending Echocardiogram: EF 60-65% mildly dilated aortic aorta, trace mitral and tricuspid regurgitation. Hemoglobin A1c: 5.5 LDL: 130 Plan: -stay in the ICU. -cap systolic blood pressure between 110-140, use p.r.n. antihypertensive medications. -NG passed, p.o. blood pressure medications holding parameters, for gradually weaning off Cardene. -DC video EEG. -start the patient on subQ heparin. -plan to transitioned to free water flushes instead of IV fluid starting tomorrow. -GI prophylaxis using Pepcid, mechanical VTE prophylaxis, p.r.n. pain medications. -repeat stat head CT declining neuro status. -frequent neuro checks. -Neurosurgery, neuro critical Care remains on board. -no urgent neurosurgical intervention at this time. -sodium goals between 135-145 -awaiting PT OT ST recommendations Patient was discussed with Dr. Montemayor. Jordan Hassan MD PGY3 neurology resident [facility] This patient is being followed by the Neurology Resident service. Contact attending directly during these hours: Saturday to 7:30-8:30 A.M. to Saturday 12-1:00 p.m. Primary Neurology service: [phone] Consult neurology service: [phone] Resident Stroke Service: [phone] If the patient belongs to the Stroke [facility] service please contact the Stroke [facility] directly. Associated attestation - Arya Montemayor MD - 04/05/2023 9:00 AM EST Patient seen & examined in conjunction with PGY3. I have reviewed and agree with the HPI, ROS, examination, assessment and plan as outlined in the note above. * Mohan De Anda MD - 04/03/2023 7:19 AM EST Images from the original note were not included. [facility] Neurology Neurocritical Care Progress Note: Brief Summary: Ellen Chan a 78 y.o. female who is admitted to the Neuro ICU with high risk of neurologic failure secondary to acute L thalamic ICH with IVH. Interval Hx: No acute events were reported overnight. Neurological exam this morning is stable. She has leucocytosis and has been coughing. Will work up for pneumonia. Exam: Temp: [36.2 C (97.2 F)-36.9 C (98.4 F)] 36.6 C (97.9 F) Pulse: [77-96] 91 Resp: [13-22] 19 BP: (86-141)/(61-101) 114/97 SpO2: [92 %-99 %] 97 % O2 Device: Nasal cannula O2 Flow Rate (L/min): [2 L/min-3 L/min] 3 L/min Intake/Output Summary (Last 24 hours) at 04/03/2023 0719 Last data filed at 04/03/2023 0603 Gross per 24 hour Intake 1926.5 ml Output 1330 ml Net 596.5 ml General: drowsy but wakes up to command, appears appropriate stated age, normal habitus, no acute distress. HEENT: atraumatic, normocephalic, sclera non-iceteric, not injected, no conjunctival pallor, no CSFrhinorrhea or otorrhea, trachea midline, moist pink mucous membranes, Mallampati not checked, neck supple Neuro: Drowsy but wakes up to command. Says 'yea' to all questions. Has Global aphasia and right gaze preference. Has 1/5 strength in right arm and leg. Left arm and leg appears to be 5/5. Cards: RRR, no M/R/G Pulm: clear throughout Abd: normoactive BS Ext: no tenderness or edema over bony prominences or joints Skin: warm, pink, no rashes or lesions Relevant Results: I have personally reviewed new lab and imaging results as well as any available finalized reports. I agree with the findings as reported Diagnosis/Assessment/Plan: Neurological Acute L Thalamic ICH with IVH as evidenced by clinical assessment and imaging data, currently stable neurologic exam with slight increase ICH with stable midline shift and IVH on repeat CT Head. Willrecommend the following: - SBP goal < 140mmHg - Neurosurgery consulted, no EVD for now. - Serial neurochecks Q2H - Normal Na goal 135-145 - Holding anti-platelets and anticoagulation. Plan to start heparin sq tomorrow. Cardiovascular Pulse Min: 72 Max: 97, BP Min: 86/64 Max: 175/110 Essential Hypertension as evidenced by clinical history, currently improving on low dose nicardipine drip. Will recommend the following: - SBP goal < 140mmHg - Continue home amlodipine 10 mg QD. - Added Coreg 6.25 mg BID instead of home med metoprolol for both rate control and hypertension. - Wean off nicardipine drip. Respiratory Acute respiratory insufficiency in setting of altered mental status, as evidenced by clinical assessment currently worsening but maintaining airway. Will recommend the following: - Monitor SpO2 with goal of > 92%, stable on 3L NC - Monitor airway closely. - Get CXR - Get respiratory panel. - Bronchopulmonary hygiene. Renal/Electrolytes Intake/Output Summary (Last 24 hours) at 04/03/2023 0719 Last data filed at 04/03/2023 0603 Gross per 24 hour Intake 1926.5 ml Output 1330 ml Net 596.5 ml No acute issues. - Monitor intake and output - Replete electrolytes as needed Infectious Disease Temp (24hrs), Av.5 C (97.7 F), Min:36.2 C (97.2 F), Max:36.9 C (98.4 F) Leucocytosis without any overt signs of infection as evident by lab data, currently worsening. Planis to monitor for now. Can be reactive to IPH. Will do infectious workup if she spikes fever. - Monitor for fevers - Tripathi culture if febrile Gastrointestinal Acute dysphagia as evidenced by clinical assessment by speech therapy, currently unchanged. Will recommend the following: Plan for level 6 dysphagia diet and no liquids. Mental status prohibits oral diet. Hold off on video swallow given fluctuating mental status. Plan for NGT placement and Start IVF NS at 75cc/hr - PIPE BENDER swallow evaluation: level 6, no liquids. - Diet: TF. - GI ppx: not indicated - Last BM: - BM regimen: Endocrine No acute issues. Is non diabetic. Last A1c 5.5. Hematology Thrombocytopenia as evidenced by laboratory data, currently stable with no active signs of bleeding. Will recommend the following: Continue to monitor. Prior plt count in 2019 was 138. History of AAA s/p EVAR and TEVAR as evidenced by clinical history, currently stable. Musculoskeletal No acute issues. Gen Crit Care: - Lines: PIVs, Larios Day 1. NG Day 1. - Prophylaxis: EPC only. Pepcid. Will start heparin sq tomorrow. - Activity: bedrest. Goals of Care: Pending Dispo: DNR CC - A No family at bedside this morning, will update when available at bedside, or updates per primary team MOHAN DE ANDA MD Vascular Neurology Fellow. Associated attestation - Christina Freitas DO - 04/03/2023 4:14 PM EST I have seen and examined the patient with the resident physician, Dr. De Anda, and discussed the plan of care with them. I agree with the above documentation with the following exceptions/additions: Exam: Lethargic. Opens eyes to loud voice and regards examiner. Oriented to self only. Does not follow commands. Left gaze preference but able to cross midline. Localizes to noxious stim in RUE. I have personally reviewed all lab and imaging data including any available finalized reports. Agree with assessment and plan as documented above. I have spent 35 mins of critical care time including direct patient care at the bedside, review of relevant labs/results, discussion with the multidisciplinary team and coordination of care. This time is exclusive of any procedures performed. * Ojrdan Sonya, MD - 04/02/2023 4:47 PM EST NEUROINTERVENTIONAL DAILY PROGRESS NOTE SUBJECTIVE: Ellen Chan is a 78 y.o. female was transferred from an outside hospital where she presented with right lower extremity weakness, a tele stroke alert was activated, initial NIH was 1, neuroimaging revealed left thalamic ICH with IVH ICH score of 2, with a blood pressure of 155/112. She was started on Cardene infusion for a systolic blood pressure less than 140 and was transferred to [facility] neuro ICU for further management. On arrival, there was decline in her mental status requiring repeat CT scan that showed hematoma expansion. Subsequently neurosurgery was taken on board, however, no surgical intervention was warranted. Neuro critical care was taken on board for medical management. Patient was noted to be mildly thrombocytopenic, with return of platelet count to 114, platelet function test demonstrated drug-induced thrombocytopenia. Patient has since been stable with waxing and waning mental status, intermittently agitated. Repeat CT head remained stable. Stroke risk factors: Hypertension Abdominal aortic aneurism. Interval history: Patient was examined assessed at bedside today, she was somnolent yet wakeful, able to follow simple commands intermittently, appears agitated which is not her baseline. Remains within the blood pressure parameters indicated, afebrile no reported overnight events. CURRENT MEDICATIONS: dextrose 5 % in water, 100 mL/hr niCARdipine, 5-15 mg/hr, Last Rate: 7.5 mg/hr (04/02/23 1306) sodium chloride 0.9 %, 10 mL/hr sodium chloride 0.9 %, 10 mL/hr sodium chloride 0.9 %, 10 mL/hr, Last Rate: Stopped (04/02/23 0805) sodium chloride 0.9 %, 50 mL/hr, Last Rate: Stopped (04/02/23 1410) acetaminophen, 1,000 mg, intravenous, Q6H [START ON 04/03/2023] amLODIPine, 10 mg, nasogastric, Daily famotidine, 20 mg, intravenous, Q24H DIO PHYSICAL EXAM: Vital Signs: Blood pressure 123/78, pulse 88, temperature 36.4 C (97.6 F), temperature source Axillary, resp. rate 15, height 162.6 cm (5' 4 ), weight 67.1 kg (147 lb 14.9 oz), SpO2 95%. Respiratory Source: O2 Device: Nasal cannula Physical Exam Neurologic Exam NIH Stroke Scale 1a Level of consciousness: 1=not alert but arousable by minor stimulation to obey, answer or respond 1b. LOC questions: 2=Performs neither task correctly 1c. LOC commands: 1=Performs one task correctly 2. Best Gaze: 1=partial gaze palsy 3. Visual: 0=No visual loss 4. Facial Palsy: 1=Minor paralysis (flattened nasolabial fold, asymmetric on smiling) 5a. Motor left arm: 0=No drift, limb holds 90 (or 45) degrees for full 10 seconds 5b. Motor right arm: 3=No effort against gravity, limb falls 6a. motor left le=No drift, limb holds 90 (or 45) degrees for full 10 seconds 6b Motor right le=No movement 7. Limb Ataxia: 0=Absent 8. Sensory: 0=Normal; no sensory loss 9. Best Language: 2=Severe aphasia; all communication is through fragmentary expression; great needfor inference, questioning, and guessing by the listener 10. Dysarthria: 1=Mild to moderate, patient slurs at least some words and at worst, can be understood with some difficulty 11. Extinction and Inattention: 0=No abnormality 12. Distal motor function: 0=Normal Total: 16 Lab Review Lab Results Component Value Date GLU 124 (H) 04/02/2023 CALCIUM 9.6 04/02/2023 K 3.7 04/02/2023 CO2 27 04/02/2023 BUN 19 04/02/2023 CREATININE 0.72 04/02/2023 Lab Results Component Value Date WBC 12.7 (H) 04/02/2023 HGB 13.1 04/02/2023 HCT 39.1 04/02/2023 MCV 86 04/02/2023 PLT 114 (L) 04/02/2023 Lab Results Component Value Date HGBA1C 5.5 04/01/2023 Lab Results Component Value Date CHOL 243 (H) 04/01/2023 Lab Results Component Value Date LDLCALC 130 (H) 04/01/2023 Lab Results Component Value Date TRIG 99 04/01/2023 Imaging: Baseline Routine EEG Result Date: 04/02/2023 History This is a routine EEG in a patient with underlying encephalopathy,. Procedure This is a standard digital EEG performed in the 10-20 International system and was reviewed with multiple reformattable montages Technical Description There is well defined up to 8 Hz posterior dominant rhythm noted at times during this recording. The background is primarily composed of semirhythmical 20-40 uv theta and delta and theta range frequencies. Semi rhythmical theta and delta range activity is intermixed with occasional beta activity noted over the frontal and central region. There is intermittent a ttenuation of the background frequencies with appearance of vertex waves, sleep spindles and K complexes. Hyperventilation is deferred. Photic stimulation is not done. There is no evidence of definite epileptiform activity during this study Clinical Interpretation This EEG in the awake and sleep states is abnormal due to the presence of mild generalized background slowing suggestive of mild bi-hemispheric cerebral dysfunction that can be seen in post ictal states, metabolic, hypoxic or toxic encephalopathies, sedative medication use or primary neurological disorders. Darnell Buenrostro MD AssistantProfessor Neurology/Neurophysiology [facility] X-ray chest 1 view Result Date: 04/02/2023 CHEST SINGLE AP VIEW 04/02/2023 12:28 PM CLINICAL INDICATION: coarse lung sounds, check for aspiration pneumonia COMPARISON: Chest 1 view 03/31/2023 IMPRESSION: 1. Enteric tube terminates in the right upper quadrant likely within the distal stomach or proximal duodenum. 2. No evidence of pneumonia.3. Cardiac silhouette is borderline enlarged. Mild pulmonary vascular congestion. No evidence of pneumothorax or pleural effusion. Elevated right hemidiaphragm. Finalized by Ramses Cobb MD on 04/02/2023 12:[address] brain without contrast Result Date: 04/02/2023 CT BRAIN WO CONT HISTORY: Stroke follow-up, intraparenchymal hemorrhage. COMPARISON: 04/01/2023. TECHNIQUE: CT head was performed and images obtained without the use of intravenous contrast. FINDINGS: There is interval development of linear hemorrhagic changes at the left and right temporal lobes likely subarachnoid and possibly cortical parenchymal hemorrhage. Redemonstrated predominantly left basal ganglia intraventricular hemorrhage with maximum width of 3.5 cm, increased in comparison to 04/01/2023. Increased effacement of left lateral ventricle posterior body and horn. Questionable mild increase of intraventricular blood products with ventricular dilatation. Rightward midline shift measuring approximately 3 mm, not significantly increased from prior study. 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 Right maxillary sinus air- fluid level. IMPRESSION: * Interval development of bilateral temporal lobe subarachnoid/cortical hemorrhagic changes. * Interval increase of left basal ganglia and temporal intraparenchymal hemorrhage with increasing effacement of the left lateral ventricle. * Stable shift of midline structures towards the right measuring approximately 3 mm. * Mild increase in the ventricular dilatation with increase in intraventricular hemorrhagic changes. At 5:20 a.m. the residential treatment staff called the patient's nurse Shen Chacko and relayed these findings to him. All CT scans at this facility use dose modulation, iterative reconstruction, and/or weight based dosing when appropriate to reduce radiation dose to as low as reasonably achievable. 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 Patient was accepted as a transfer from an outside hospital for right-sided weakness. Initial NIH was 1 (right lower extremity weakness), not on blood thinners. On arrival, her neuro exam worsened Deeming a repeat head CT with hematoma expansion. Neurosurgery was taken on board, deferred plans for neurosurgical intervention. Neuro critical care remains on board for fluctuating mental status and medical management. Stroke risk factors Hypertension Abdominal aortic aneurysm. Stroke work up: MRI brain with and without contrast: Pending Echocardiogram: Pending Hemoglobin A1c: 5.5 LDL: 130 Plan: -stay in the ICU. -cap systolic blood pressure between 110-140, use p.r.n. antihypertensive medications. -follow-up on stroke workup. -NG passed, p.o. blood pressure medications holding parameters, for gradually weaning off Cardene. -continue IV fluids at 75 mL an hour. -GI prophylaxis using Pepcid, mechanical VTE prophylaxis, p.r.n. pain medications. -repeat stat head CT declining neuro status. -frequent neuro checks. -will start the patient on small dose of melatonin. -Neurosurgery, neuro critical Care remains on board. -no urgent neurosurgical intervention at this time. -sodium goals between 135-145 -awaiting PT OT ST recommendations Patient was discussed with Dr. Shahid . Jordan Hassan MD PGY3 neurology resident [facility] This patient is being followed by the Neurology Resident service. Contact attending directly during these hours: Saturday to 7:30-8:30 A.M. to Saturday 12-1:00 p.m. Primary Neurology service: [phone] Consult neurology service: [phone] Resident Stroke Service: [phone] If the patient belongs to the Stroke [facility] service please contact the St[facility] directly. Associated attestation - Poly Shahid MD - 04/03/2023 12:11 AM EST Attending Attestation: I saw the patient. I performed the critical/felix portions of the service. I was directly involved inthe management and treatment plan of the patient. I reviewed the resident's note and agree with thedocumentation. Additional Notes/Findings: Presentation is consistent with left thalamic ICH with intraventricular extension, ICH score 3. There was subsequent worsening of ICH, attributed to drug-induced platelet dysfunction from antiplatelet therapy. Altered Mental status, likely secondary to encephalopathy from intracranial hemorrhage. Co nsider continuous EEG monitoring if mental status fluctuations continue. Poly Shahid MD Vascular Neurologist [facility] Neurology # [phone]([facility]) I have personally participated in the care of this patient. I have reviewed all pertinent clinical information, including history, physical exam, investigation results and plan. I spent 40 minutes caring for this patient, and more than 50% of that time was spent on counseling the patient/design director/care team and coordinating care. Important Notice: This note was created with the assistance of a speech recognition program. While intending to generate a timely document that accurately reflects the content of the encounter, no guarantee can be provided that every grammatical or spelling mistake has been or will be identified or corrected. Thank you for your understanding. * Ana Maria Qiu APRN-SHAMEKA - 04/02/2023 8:03 AM EST Images from the original note were not included. [facility] [address] [place] [address], [address] [place] [address] * NEUROSURGERY DAILY PROGRESS NOTE DATE:04/02/2023 PATIENT'S NAME: Ellen Chan PATIENT'S PATIENT'S : 1945 EVENTS LAST 24 HOURS / SUBJECTIVE Bedside RN reports patient increasingly restless and somewhat agitated overnight. Patient drowsy but arousable. Able to answer yes/no questions; Denies JON or shortness of breath Currently on Cardene at 7.5 mg/hr; Na 145 this AM; remains on supplemental oxygen via nasal cannula PHYSICAL EXAM Temp: [36.5 C (97.7 F)-36.8 C (98.2 F)] 36.8 C (98.2 F) Pulse: [76-92] 81 Resp: [13-26] 19 BP: (101-153)/(69-96) 125/79 SpO2: [91 %-98 %] 94 % O2 Device: Nasal cannula O2 Flow Rate (L/min): [2 L/min] 2 L/min EXAM Drowsy but arousable Oriented x 2 (Able to tell me her name, aware she is at [facility]) Speech is clear Slight left facial droop appreciated Left gaze preference, comes to midline but does not cross PERRL, sclera anicteric Moves left upper and lower extremities spontaneously, intermittently follows commands Withdraws to pain to right upper and lower extremity Respirations shallow, unlabored, supplemental oxygen via NC in place Abdomen soft, non-tender, non-distended Extremities warm, well perfused LABORATORY DATA Results from last 7 days Lab Units 04/02/23 0506 04/02/23 0354 04/01/23 0645 04/01/23 0411 SODIUM mmol/L 145 -- 141 -- POTASSIUM mmol/L 3.5 -- 3.3* -- CREATININE mg/dL 0.72 -- 0.63 -- BEDSIDE GLUCOSE mg/dL -- -- -- 101* GLUCOSE mg/dL 123* -- 112* -- CALCIUM mg/dL 9.6 -- 9.6 -- APTT sec -- -- 33 -- INR -- -- 1.0 -- WBC X10E9/L -- 12.7* 6.9 -- HEMATOCRIT % -- 39.1 38.1 -- HEMOGLOBIN g/dL -- 13.1 13.1 -- PLATELETS X10E9/L -- 114* 91* -- Cultures: Microbiology Results No results found for the last 168 hours. IMAGING 04/02/23 CT brain without contrast: FINDINGS: There is interval development of linear hemorrhagic changes at the left and right temporal lobes likely subarachnoid and possibly cortical parenchymal hemorrhage. Redemonstrated predominantly left basal ganglia intraventricular hemorrhage with maximum width of 3.5 cm, increased in comparison to 04/01/2023. Increased effacement of left lateral ventricle posterior body and horn. Questionable mild increase of intraventricular blood products with ventricular dilatation. Rightward midline shift measuring approximately 3 mm, not significantly increased from prior study. 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 Right maxillary sinus air-fluid level. IMPRESSION: * Interval development of bilateral temporal lobe subarachnoid/cortical hemorrhagic changes. * Interval increase of left basal ganglia and temporal intraparenchymal hemorrhage with increasing effacement of the left lateral ventricle. * Stable shift of midline structures towards the right measuring approximately 3 mm. * Mild increase in the ventricular dilatation with increase in intraventricular hemorrhagic changes. ASSESSMENT 78-year-old female presents with right-sided motor deficits in the setting of antiplatelet therapy with ASA found to have left basal ganglia IPH with intraventricular extension. PLAN Neuro: - Repeat CT Brain from this AM independently reviewed; stable midline shift, evolving hematoma; will review with attending - Normal Na goal 135-145, 145 this AM - Serial neuro checks - Elevate HOB - PRN pain control; no NSAIDs - PT/OT when appropriate; PIPE BENDER following; acute dysphagia Cardiovascular: - Goal SBP < 140 mmHg - Home amlodipine resumed; Cardene drip to be weaned to off - Hydralazine and labetalol PRN Pulmonary: - Respiratory insufficiency on supplemental oxygen via nasal cannula - Goal SpO2 > 92% - Monitor airway Fluids, electrolytes, nutrition: - Isotonic or hypertonic fluids only - Diet: Dysphagia; Level 6 dysphagia diet, no liquids; Plans for enteral feeding tube placement noted Renal: - Monitor eGFR (84 ml/min) Hematology: - Maintain platelets > 100,000 (114k) - Abnormal pFA in the setting of known ASA and NSAID use - Maintain INR < 1.3 and PTT < 40 (1.0/33.0) - Maintain H/H > 7/22 (13.1/39.1) - HOLD therapeutic anticoagulation and anti-platelet therapy Infectious diseases: - Monitor white count (12.7 K) Endocrine: - Maintain euglycemia Prophylaxis: - Ulcer prophylaxis: Famotidine BID - DVT prophylaxis: SCDs/Hold chemical prophylaxis Disposition: - Neuro ICU Code Status: - Full [facility] Preferred contact via [employer] For time-sensitive matters contact via Patient Touch: [phone] 04/02/23 8:55 AM Currently scheduled EVERETT can be found on [employer] by using [employer] and searching for [facility] Neurosurgery KOTA Cadena 04/02/23 0856 ADDENDUM: Imaging reviewed by Dr. Agarwal. No neurosurgical intervention warranted. Recommend continuing to HOLD ASA; ok to resume ASA one week from today, 04/09/23. Clear for chemical prophylaxis fromneurosurgical perspective; defer initiation to primary. Neurosurgery signing off. Please call with further needs or concerns. [facility] Preferred contact via [employer] For time-sensitive matters contact via Patient Touch: [phone] 04/02/23 9:25 AM Currently scheduled EVERETT can be found on [employer] by using [employer] and searching for PTH Neurosurgery KOTA Cadena 04/02/23 0925 * Christina Freitas DO - 04/02/2023 7:16 AM EST Images from the original note were not included. [facility] Neurology Neurocritical Care Progress Note: Brief Summary: Ellen Chan a 78 y.o. female who is admitted to the Neuro ICU with high risk of neurologic failure secondary to acute L thalamic ICH with IVH. Interval Hx: Repeat CT Head reviewed from this morning showing evolution of L thalamic hematoma with stable midline shift and IVH. Exam: Temp: [36.5 C (97.7 F)-36.8 C (98.2 F)] 36.8 C (98.2 F) Pulse: [72-92] 87 Resp: [13-26] 21 BP: (101-169)/(69-98) 130/74 SpO2: [91 %-98 %] 94 % O2 Device: Nasal cannula O2 Flow Rate (L/min): [2 L/min] 2 L/min Intake/Output Summary (Last 24 hours) at 04/02/2023 0716 Last data filed at 04/02/2023 0631 Gross per 24 hour Intake 549.17 ml Output 300 ml Net 249.17 ml General: Female, appears stated age, no distress. HEENT: Atraumatic, normocephalic, sclera non-iceteric, not injected, no conjunctival pallor, trachea midline, moist pink mucous membranes, neck supple Neuro: Lethargic, opens eyes to loud voice and regards examiner. Oriented to self and hospital but not year. Mimics commands to show thumb.Pupils are equal and reactive. Left gaze preference but can cross midline. Moves left lori-body spontaneously and against gravity. Localizes to noxious stim in RUE/RLE. Cards: RRR, no M/R/G Pulm: clear throughout Abd: normoactive BS and soft Ext: no tenderness or edema over bony prominences or joints Skin: warm, pink, no rashes or lesions Relevant Results: I have personally reviewed new lab and imaging results as well as any available finalized reports. I agree with the findings as reported Diagnoses/Assessment/Plan: Acute L Thalamic ICH with IVH as evidenced by clinical assessment and imaging data, currently stable neurologic exam with slight increase ICH with stable midline shift and IVH on repeat CT Head. Willrecommend the following: - SBP goal < 140mmHg - Neurosurgery consulted, no EVD for now. - Serial neurochecks Q1H - Normal Na goal 135-145 - Holding anti-platelets and anticoagulation Acute respiratory insufficiency in setting of altered mental status, as evidenced by clinical assessment currently stable and maintaining airway. Will recommend the following: - Monitor SpO2 with goal of > 92%, stable on 2L NC - Monitor airway closely. Essential Hypertension as evidenced by clinical history, currently improving on low dose nicardipine drip. Will recommend the following: - SBP goal < 140mmHg - Resume home amlodipine to help wean off nicardipine drip Acute dysphagia as evidenced by clinical assessment by speech therapy, currently unchanged. Will recommend the following: Plan for level 6 dysphagia diet and no liquids. Mental status prohibits oral diet. Hold off on video swallow given fluctuating mental status. Plan for NGT placement and Start IVF NS at 75cc/hr Thrombocytopenia as evidenced by laboratory data, currently stable with no active signs of bleeding. Will recommend the following: Continue to monitor. Prior plt count in 2019 was 138. History of AAA s/p EVAR and TEVAR as evidenced by clinical history, currently stable. Gen CCM: - Access/Indwelling catheters: Larios day external, PIVs - Prophylaxis: DVT SCDs; GI bowel regimen and home PPI; - Activity: advance as tolerated Goals of Care: Full Confirmed code status with POA. POA: Grandson/Grand daughter Day 2 Family at bedside and updated on plan Dispo: ICU I have spent 35 mins of critical care time including direct patient care at the bedside, review of relevant labs/results, goals of care discussion with family in a patient with neurological failure and coordination of care. This time is exclusive of teaching and any procedures performed. ADDENDUM I held a goals of care conversation with the patient's POA Roula Alexis. We discussed code status again and reviewed the patient's advanced directives which states that she would not want life prolonging measures such as CPR if she developed a condition in which she could no longer be independent.Roula agreed that DNR-CCA would be appropriate and that a temporary intubation would be in line with her grandmother's wishes however she would not want tracheostomy. I have updated the code status to reflect this change in code status. documented in this encounterBrecksville [facility] / [facility]ille HospitalAvaLAN [facility] Systems [facility] [id number] Consult note* CLAIR Rosario - 04/14/2023 7:25 AM ESTAssociated Order(s): IP CONSULT TO NUTRITION SERVICES NUTRITION ADULT FOLLOW UP NUTRITION ASSESSMENT: Patient History: Brief Clinical Summary: Patient initially presented to OSH with right sided weakness. 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 Pt remains NPO, not ready for oral diet per PIPE BENDER. PEG placed, na elevated; RD consulted for TF adjustment/free water to help with hypernatremia. Biochemical Data, Medical Tests, and Procedures: 04/01 CT brain: Enlarging left basal ganglia intraparenchymal hemorrhage with worsening intraventricular extension. 04/01 Soft and Bite Sized and no liquids. However, per MD hold off on oral diet d/t mentation. VFSSon hold. 04/04- remains NPO 04/08- D2.5 stopped due to decrease in Na levels, free water continues 04/11- PEG Labs: Results from last 3 days Lab Units 04/14/23 0610 04/13/23 0752 04/13/23 0059 04/12/23 1216 04/12/23 0616 SODIUM mmol/L 145 149* 148* < > 146 POTASSIUM mmol/L 3.5 3.7 3.6 < > 3.8 CHLORIDE mmol/L 112* 117* 114* < > 115* CO2 mmol/L 23 24 24 < > 23 BUN mg/dL 24 27 -- -- 32* CREATININE mg/dL 0.50 0.58 -- -- 0.71 CALCIUM mg/dL 8.5 8.5 -- -- 8.6 ALBUMIN g/dL 2.9* 2.8* -- -- 2.8* ALK PHOS U/L 85 88 -- -- 85 ALT U/L 76* 74* -- -- 88* AST U/L 35 28 -- -- 37 < > = values in this interval not displayed. Results from last 7 days Lab Units 04/14/23 0610 04/13/23 07504/12/23 0616 04/11/23 0034 04/10/23 0041 04/09/23 0158 BEDSIDE GLUCOSE mg/dL -- -- 121* -- -- -- GLUCOSE mg/dL 148* 133* 130* 153* 113* 155* Results from last 3 days Lab Units 04/14/23 0610 04/13/23 0752 04/12/23 0844 WBC X10E9/L 9.5 10.7 12.9* HEMOGLOBIN g/dL 11.7 11.5* 10.8* HEMATOCRIT % 35.0 34.4* 32.7* PLATELETS X10E9/L 94* 91* 92* MCV fL 86 86 87 No data from last 3 days. No data from last 3 days. Results from last 3 days Lab Units 04/14/23 0610 04/13/23 0752 04/12/23 0616 TOTAL BILIRUBIN mg/dL 0.4 0.5 0.6 Lab Results Component Value Date HGBA1C 5.5 04/01/2023 Lab Results Component Value Date IRON 45 (L) 04/09/2023 TIBC 217 (L) 04/09/2023 FERRITIN 618 (H) 04/09/2023 Lab Results Component Value Date IRONSAT 21 04/09/2023 Lab Results Component Value Date CHOL 243 (H) 04/01/2023 Lab Results Component Value Date CHDL 2.6 04/01/2023 Lab Results Component Value Date HDL 93 04/01/2023 Lab Results Component Value Date LDLCALC 130 (H) 04/01/2023 Lab Results Component Value Date TRIG 99 04/01/2023 Lab Results Component Value Date VERYLOWLIP 20 04/01/2023 Lab Results Component Value Date SCOGNKCO04 416 04/09/2023 Lab Results Component Value Date FOLATE 12.0 04/09/2023 No results found for: VITD25 Comments (labs): Na 145 ( was 149 yesterday) Cl112 Medications/ Parenteral: Konvomep, dulcolax q 3 days milk of magnseia q 3 days ( neuro bowel regimen) Current Facility-Administered Medications Medication Dose Route Frequency Provider Last Rate Last Admin acetaminophen (TYLENOL) 650 mg/20.3 mL solution 650 mg 650 mg nasogastric Q6H PRN Christina Mendozaor, DO 650 mg at 04/14/23 0111 amLODIPine (NORVASC) tablet 10 mg 10 mg nasogastric Daily Christina Mendozaor, DO 10 mg at 04/13/23 0844 bisacodyL (DULCOLAX) suppository 10 mg 10 mg rectal Q3 Days Christina Freitas, DO 10 mg at 04/08/23 1312 calcium gluconate IVPB 1000 mg/50 mL (20 mg/mL premix) 1,000 mg intravenous PRN Ry De Anda MD Or calcium gluconate IVPB 2000 mg/100 mL (20 mg/mL premix) 2,000 mg intravenous PRN Ry De Anda MD Or calcium gluconate 3,000 mg in sodium chloride 0.9 % 100 mL IVPB 3,000 mg intravenous PRN Ry De Anda MD carvediloL (COREG) tablet 25 mg 25 mg nasogastric BID Artemio Ray MD 25 mg at 04/13/232048 dextrose (GLUTOSE) 40 % gel 15 g 15 g oral PRN Ry De Anda MD dextrose 5 % (D5W) infusion 100 mL/hr intravenous Continuous PRN Ry De Anda MD dextrose 50 % in water (D50W) 50% solution 25 mL 25 mL intravenous PRN Ry De Anda MD fentaNYL (SUBLIMAZE) injection 25 mcg 25 mcg intravenous Q5 Min PRN Won Webster MD 25 mcg at 04/11/232153 fentaNYL (SUBLIMAZE) injection 50 mcg 50 mcg intravenous Q5 Min PRN Won Webster MD fondaparinux (ARIXTRA) injection 2.5 mg 2.5 mg subcutaneous Daily Jack Meraz MD glucagon HCL injection 1 mg 1 mg intramuscular PRN Ry De Anda MD hydrALAZINE (APRESOLINE) injection 10 mg 10 mg intravenous Q4H PRN Christina Freitas, DO 10 mg at 04/04/23 0604 hydrALAZINE (APRESOLINE) injection 5 mg 5 mg intravenous Q10 Min PRN Won Webster MD ipratropium-albuteroL (DUONEB) 0.5 mg-3 mg(2.5 mg base)/3 mL nebulizer solution 3 mL 3 mL nebulization Q4H PRN Mohan De Anda MD 3 mL at 04/09/23 0521 labetaloL (NORMODYNE,TRANDATE) injection 10 mg 10 mg intravenous Q5 Min PRN Christina Mendozaor, DO 10 mg at 04/09/23 0634 labetaloL (NORMODYNE,TRANDATE) injection 5 mg 5 mg intravenous Q5 Min PRN Won Webster MD lisinopriL (PRINIVIL,ZESTRIL) tablet 20 mg 20 mg nasogastric Daily Christina Mendozaor, DO 20 mg at 04/13/23 0844 magnesium hydroxide (MILK OF MAGNESIA) suspension 30 mL 30 mL nasogastric Q3 Days Christina Freitas DO 30 mL at 04/07/23 2152 magnesium sulfate IVPB 2000 mg/50 mL in iso-osmotic water (40 mg/mL premix) 2,000 mg intravenous PRN Ry De Anda MD Or magnesium sulfate IVPB 4000 mg/100 mL in iso-osmotic water (40 mg/mL premix) 4,000 mg intravenous PRN Ry De Anda MD melatonin (CIRCADIN) tablet 6 mg 6 mg nasogastric Nightly PRN TEA NguyenSTUDY LEAD 6 mg at 04/13/232045 metoprolol (LOPRESSOR) injection 2.5 mg 2.5 mg intravenous Q5 Min PRN Won Webster MD morphine injection 2 mg 2 mg intravenous Q5 Min PRN Won Webster MD morphine injection 4 mg 4 mg intravenous Q5 Min PRN Won Webster MD omeprazole-sodium bicarbonate (KONVOMEP) 2-84 mg/mL oral suspension 40 mg 40 mg nasogastric Daily Christina Mendozaor, DO 40 mg at 04/13/23 0900 ondansetron (PF) (ZOFRAN) injection 4 mg 4 mg intravenous Q6H PRN Christina Freitas, DO 4 mg [id number] ondansetron (PF) (ZOFRAN) injection 4 mg 4 mg intravenous Once PRN Won Webster MD potassium chloride (K-TAB,KLOR-CON) CR tablet 20-50 mEq 20-50 mEq oral PRN Ry De Anda MD Or potassium chloride (KAYCIEL) 20 mEq/15 mL solution 20-50 mEq 20-50 mEq oral PRN Ry De Anda MD 30 mEq at 04/13/23 0435 potassium chloride IVPB 10 mEq/50 mL in water (0.2 mEq/mL premix) 10 mEq intravenous PRN Ry De Anda MD Or potassium chloride IVPB 10 mEq/100 mL in water (0.1 mEq/mL premix) 10 mEq intravenous PRN Ry De Anda MD Stopped at 04/02/23 1058 saliva stimulant comb. no.3 (BIOTENE) solution 1 spray 1 spray oral PRN TAE ChowdhurySTUDY LEAD 1 spray at 04/09/23 1022 sennosides-docusate sodium (SENOKOT-S) 8.6-50 mg 2 tablet 2 tablet nasogastric BID Christina Penn DO 2 tablet at 04/13/23 0844 sodium phosphate 20 mmol in sodium chloride 0.9 % 250 mL IVPB 20 mmol intravenous PRN Ry De Anda MD Or sodium phosphate 20 mmol in sodium chloride 0.9 % 100 mL IVPB 20 mmol intravenous PRN Ry De Anda MD Or sod phos di, mono-K phos mono (K-PHOS NEUTRAL) 250 mg tablet 2 tablet 2 tablet oral PRN Ry De Anda MD sodium chloride 0.9 % infusion 10 mL/hr intravenous Continuous PRN Ry De Anda MD sodium chloride 0.9 % infusion 10 mL/hr intravenous Continuous PRN Ry De Anda MD sodium chloride 0.9 % infusion 10 mL/hr intravenous Continuous PRN Ry De Anda MD Stopped at 04/02/23 0805 Nutrition Focused Physical Findings note 350ml free water given 6x/day, however per I/O, may not have received full volume as ordered Skin (per nursing flow sheets): Skin Color: [place] (04/13/232014) Skin Temp: Cool (04/13/232014) Wound (per nursing flow sheets): Gastrointestinal (per nursing flow sheets): Abdomen Assessment: Soft; Flat (04/13/232014) Last BM Date: 04/13/23 (04/13/232014) Passing Flatus: Yes (04/11/23 2100) RUQ Bowel Sounds: Active (04/12/231944) LUQ Bowel Sounds: Active (04/12/231944) RLQ Bowel Sounds: Active (04/12/231944) LLQ Bowel Sounds: Active (04/12/231944) GI Symptoms: Constipation (04/08/23 1200) Relieved by: Antiemetic (04/06/237) Edema (per nursing flow sheets): RUE Edema: +1 (04/13/232014) Intake/ Output Last 24 hrs: Intake/Output Summary (Last 24 hours) at 04/14/2023 0726 Last data filed at 04/13/20232014 Gross per 24 hour Intake 350 ml Output 1350 ml Net -1000 ml Food/Nutrition Related History: Diet/ Nutrition Order Review: Dietary Orders (From admission, onward) Start Ordered 04/12/23 0912 Tube feeding No tray-Continuous Tube feeding No Tray-Continuous; Nasogastric or Oral gastric feeding tube; Standard 1.5 kcal; 45; 10; Every 6 hours; 55ml/hr x 20 hrs (hodl for Konvomep dosing- 3 hr before, 1 hr afater) Continuous Comments: Formula: Osmolite 1.5 References: Formulary Card Question Answer Comment Diet Type: Tube feeding No Tray-Continuous Tube Type: Nasogastric or Oral gastric feeding tube Tube Feeding Formula: Standard 1.5 kcal Tube Feeding Start Rate (mL/hour): 45 Increase Rate by (mL/hour): 10 Frequency of Rate increase: Every 6 hours Goal Rate (mL/hour): 55ml/hr x 20 hrs hodl for Konvomep dosing- 3 hr before, 1 hr afater 04/12/23 0912 04/11/23 0800 Free water Every 4 hours Question Answer Comment Amount in mL 350 Tube Type: Nasogastric or Oral gastric feeding tube 04/11/23 0721 Inpatient Nutrition Support History: TF 04/02- Osmolite 1.5 04/04- at Osmolite 1.5 goal 45ml/hr 04/08- D2.5W stopped 04/11- TF held for PEG placement 04/12- TF resumed Osmolite 1.5 TF: Osmolite 1.5 at 55 ml/hr x 20 hrs 1650 Kcal daily 69 gm protein daily 838 mL Free H2O daily- free water provides 2100ml/day 100% RDI Anthropometrics: Ht Readings from Last 1 Encounters: 04/01/23 162.6 cm (5' 4 ) Last 3 Weight Readings 04/13/23 0424 04/13/23 0456 04/14/23 0438 Weight: 63.1 kg (139 lb 1.8 oz) 63.1 kg (139 lb 3.2 oz) 64.3 kg (141 lb 12.1 oz) Admit Weight: 67.1kg (04/01; bed scale) Almond Body Weight: 54.5kg Weight Changes: slight loss from admit Admit Body Mass Index: 25.02 Current Body Mass Index: Body mass index is 24.33 kg/m . Comparative Standards: Estimated Energy Needs: 8989-4207 kcals daily. Method and weight used: 25-30 kcal/kg IBW (54.5kg) Estimated Protein Needs: 65-110 grams daily. Method and weight used: 1.2-2g protein/kg IBW Estimated Fluid Needs: 5114-4486 ml daily. Method weight used: 1ml/kcal Comments: General needs NUTRITION DIAGNOSIS: Intake Diagnosis: Inadequate protein-energy intake (NI 5.3) TF meeting needs NUTRITION INTERVENTIONS: Enteral Nutrition Will change to less concentrated formula, Osmolite 1.2 at goal rate of 65ml/hr x 20 hrs ( hold for konvomep) This provides 1300ml formula, 1560kcals, 71gm protein, 1066ml free water, and 100% RDI's for vitamins/minerals. 2. Will adjust free water flushes to 240ml 4x/day for total of 2026ml/day including TF formula freewater. GOAL(S): Meet estimated calorie and protein needs. NUTRITION MONITORING AND EVALUATION: TF tolerance, weight trend, labs, POC and overall status. Balbina Neil R.D,L.D. Clinical dietitian Patient Touch extension:[phone] Direct Dial phone number: [phone] 04/14/23 7:52 AM * Jenelle Rahman MD - 04/11/2023 12:04 PM ESTAssociated Order(s): IP CONSULT TO RHEUMATOLOGY Images from the original note were not included. [facility] Rheumatology CONSULT NOTE DATE OF ADMISSION 04/01/2023 4:08 AM REASON FOR CONSULTATION: Positive KAY and PAPER CUP HANDLE MACHINE OPERATOR REFERRING PROVIDER: Chen Lloyd APRN-STUDY LEAD PCP NITHYA BROWN MD ASSESSMENT AND PLAN: Positive KAY reflex and PAPER CUP HANDLE MACHINE OPERATOR antibody of 1 -Anti DNA, chromatin, ruelas and RF came back negative -was examined today with her niece present at bedside -most of the history was obtained from the niece. She reports that the patient's birthday was celebrated before [place] and she was in her usual state of health. Denies any concerns of muscle weakness, hand swelling, difficulty swallowing food, shortness of breath, rashes, joint swelling, dry eyes, dry mouth -on examination, she had no skin rashes, synovitis, skin tightening or changes on need for capillaroscopy 2. Thrombocytopenia 3. 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 Many normal individuals will have a positive test at low titers. Even when detected at high titer, a positive KAY result, by itself (in the absence of symptoms or physical findings), does not indicate that a patient either has, or will develop, an autoimmune disease -Antibodies to PAPER CUP HANDLE MACHINE OPERATOR, are found often in very high levels in patients with a variety of systemic rheumatic diseases, including SLE, progressive systemic sclerosis and Mixed Connective Tissue Disease -rheumatology will sign off. Please call us if you have any further questions Discussed with attending Dr. Tawanda Rahman PGY-5, Rheumatology CHIEF COMPLAINT: RLE and RUE weakness HISTORY OF PRESENT ILLNESS: Ellen Chan is a 78 y.o. White or female who presents with history of HTN, GERD, AAA who presented to an outside hospital with a right-sided weakness with BP of 155/112. CT head showed small left thalamic ICH and patient was transferred to [facility] on 04/01 for further care. She had decline in mental status and repeat CT scan showed hematoma expansion. Subsequently neurosurgery was taken on board, however, no surgical intervention was warranted. Neuro critical care was taken on board for medical management. As per documentation, patient has since been stable with waxing and waning mental status, intermittently agitated. She was found to have thrombocytenia and had work up ordered by Hematology Oncology which showed positive KAY screen and PAPER CUP HANDLE MACHINE OPERATOR antibody 1. Rheumatology was consulted to address this finding. PAST MEDICAL HISTORY: Past Medical History: Diagnosis Date AAA (abdominal aortic aneurysm) ([facility]) was surgically taken care of 09/2018 GERD (gastroesophageal reflux disease) Hypertension Upper respiratory infection 05/2019 Visual impairment glasses PAST SURGICAL HISTORY: Past Surgical History: Procedure Laterality Date BREAST BIOPSY BREAST SURGERY 1989 BREAST BX CARDIAC SURGERY STENT 2019 CARDIAC SURGERY LEFT VENTRICLE STENT 2018 DILATION AND CURETTAGE, DIAGNOSTIC / THERAPEUTIC 1986 HYSTERECTOMY KNEE ARTHROSCOPY Left KNEE ARTHROSCOPY Left REMOVE METAL 2014 LAPAROSCOPIC CHOLECYSTECTOMY N/A 05/26/2019 Performed by Caro Pollard DO at [facility] ORIF WRIST FRACTURE Right Pins ALLERGIES: Allergies Allergen Reactions Ciprofloxacin Headache Alendronate Bee Venom Protein (Honey Bee) feels like my eyes are spinning around Rysrovne-Lwptupgquic-Hpzxxguhb Oxycodone Headache I just don't want to take it HOME MEDICATIONS: Medications Prior to Admission Medication Sig Dispense Refill Last Dose amLODIPine (NORVASC) 5 mg tablet Take 1 tablet (5 mg total) by mouth in the morning. ASPIRIN LOW DOSE ORAL Take 81 mg by mouth daily. hydroCHLOROthiazide (HYDRODIURIL) 25 mg tablet Take 1 tablet (25 mg total) by mouth daily. metoprolol tartrate (LOPRESSOR) 25 mg tablet Take 1 tablet (25 mg total) by mouth in the morning and 1 tablet (25 mg total) before bedtime. pantoprazole (PROTONIX) 40 mg EC tablet Take 1 tablet (40 mg total) by mouth every morning before breakfast. potassium chloride (K-TAB,KLOR-CON) 10 MEQ CR tablet Take 2 tablets (20 mEq total) by mouth in the morning and 2 tablets (20 mEq total) before bedtime. docusate sodium (DULCOLAX STOOL SOFTENER, DSS,) 100 mg capsule daily. (Patient not taking: Reportedon 04/02/2023) Unknown ibuprofen (ADVIL,MOTRIN) 800 mg tablet Take 0.5 tablets (400 mg total) by mouth every 6 (six) hoursas needed for pain. (Patient not taking: Reported on 04/02/2023) 20 tablet 0 Unknown niacin, inositol niacinate, 500 mg tablet niacin (inositol niacinate) 500 mg tablet Take by oral route. (Patient not taking: Reported on 04/02/2023) Unknown potassium chloride (KLOR-CON) 20 mEq packet Klor-Con 20 mEq oral packet Take 1 packet 4 times a day by oral route. (Patient not taking: Reported on 04/02/2023) Unknown SOCIAL HISTORY: Social History Socioeconomic History Marital status: Spouse name: Not on file Number of children: Not on file Years of education: Not on file Highest education level: Not on file Occupational History Not on file Tobacco Use Smoking status: Former Smokeless tobacco: Never Tobacco comments: QUIT IN JUNE 2019 Vaping Use Vaping Use: Never used Substance and Sexual Activity Alcohol use: Yes Comment: SOMETIMES Drug use: Never Sexual activity: Defer Other Topics Concern Not on file Social History Narrative Not on file Social Determinants of Health Financial Resource Strain: Not on file Food Insecurity: Not on file Transportation Needs: Not on file Physical Activity: Not on file Stress: Not on file Social Connections: Not on file Interpersonal Safety: Not on file FAMILY HISTORY: History reviewed. No pertinent family history. REVIEW OF SYSTEMS: Unable to assess because of patient factors PHYSICAL EXAM: Vital Signs Blood pressure 123/89, pulse 76, temperature 36.8 C (98.3 F), temperature source Axillary, resp. rate 17, height 162.6 cm (5' 4 ), weight 66.1 kg (145 lb 11.6 oz), SpO2 98%. Respiratory Source O2 Device: (S) Nasal cannula Admission Weight Weight: 68.5 kg (151 lb 0.2 oz) General Appearance Mild distress Head Normocephalic, without obvious abnormality, atraumatic Eyes conjunctivae/corneas clear. PERRL, EOM's intact. Fundi benign. ENT ENT exam normal, no neck nodes or sinus tenderness Neck no adenopathy, no carotid bruit, no JVD, supple, symmetrical, trachea midline, and thyroid notenlarged, symmetric, no tenderness/mass/nodules Lungs diminished breath sounds base - bilaterally Heart: regular rate and rhythm, S1, S2 normal, no murmur, click, rub or gallop Abdomen soft, non-tender; bowel sounds normal; no masses, no organomegaly Extremities extremities normal, atraumatic, no cyanosis or edema RUE and RLE weakness Skin Skin color, texture, turgor normal. No rashes or lesions or bruises noted, nailfold capillaroscopy appeared normal Imaging EGD Report Result Date: 04/11/2023 This order has been auto-finalized for image and report archival in PACs. *For full report details,please reach out to your physician. This image is visible to you in MyChart.* X-ray chest 1 view Result Date: 04/11/2023 Clinical History: Follow-up infiltrates. Shortness of breath. Portable Upright chest: 04/11/2023 Comparison: 04/10/2023 Findings: A single portable view of the chest was obtained. Enteric tube extends the upper abdomen. The cardiac silhouette is prominent with vascular tortuosity. Stents are present lower chest is mild vascular prominence centrally. There is hazy peripheral opacity greatest in the right upper lung with no change in this region. IMPRESSION: Stable pulmonary infiltrates. No acute change. Finalized by Rajan Mtz MD on 04/11/2023 6:52 AM Ultrasound abdomen limited Result Date: 04/10/2023 Ultrasound abdomen limited COMPARISON: CTA chest 04/06/2023 HISTORY: Thrombocytopenia, rule out hepatosplenomegaly. Technique: Ultrasound of the liver and spleen performed. FINDINGS: Heterogeneity ofthe liver without evidence for focal hepatic lesion. The liver has a normal contour and is normal in size measuring 16.5 cm craniocaudal dimension. Hepatopedal flow in the main portal vein. Gallbladder surgically absent. No perihepatic fluid. Prominence of the common duct measuring up to 9 with diameter consistent with history of cholecystectomy, tapering distally to 4 mm. Spleen is normal in size measuring up to 8.4 cm from diameter with multiple echogenic foci consistent with benign calcifiedgranulomas when correlated with recent CTA chest. Incidental benign- appearing 2.2 cm right renal cyst and benign-appearing 3.1 cm inferior pole left renal cyst with no imaging follow-up required. IMPRESSION: 1. No hepatosplenomegaly. 2. Mild heterogeneity of the liver suggesting possibility of hepatocellular disease. 3. Chronic changes detailed above. Finalized by Julio Cesar Gilliam MD on 04/10/2023 8:27 AM X-ray chest 1 view Result Date: 04/10/2023 CLINICAL INFORMATION: Acute hypoxic respiratory failure. TECHNIQUE: Chest radiograph, single AP view. COMPARISON: 04/09/2023. FINDINGS Enteric tube partially visualized. Aortic stent. Cardiomediastinalsilhouette is unchanged. No measurable pneumothorax or pleural effusion. Patchy upper lobe predominant airspace disease, not significantly changed. IMPRESSION: * No significant interval change. Approved by Resident Dulce Price DO on 04/10/2023 3:43 AM Arianne Rodriges MD have personally reviewed the image(s) and agree with and/or edited the report Finalized by Arianne Rodrigues MD on 04/10/2023 3:[address] brain without contrast Result Date: 04/09/2023 CT BRAIN WO CONT CLINICAL HISTORY: Transient altered level of awareness. Mental status change, unknown cause COMPARISON: 04/06/2023. TECHNIQUE: CT head was performed without contrast using the standard protocol. Automated exposure control was utilized. FINDINGS: Persistent hyperdense hemorrhage centered in the left posterior thalamus with intraventricular extension, hematoma measures approximately 4.6 cm, similar to prior. Mild ventriculomegaly. Subarachnoid hemorrhage in the right sylvian fissure appears less pronounced than on prior. Similar decreasing conspicuity of subarachnoid hemorrhagealong the dorsolateral left frontal lobe. Mass effect with left to right midline shift, 0.7 cm of the pineal gland, similar to prior. Moderate global parenchymal volume loss. Unremarkable temporal bone structures, visualized suprahyoid neck, scalp soft tissues. Lens replacement. Unremarkable paranasal sinuses. IMPRESSION: Minimally changed left thalamic parenchymal hemorrhage with intraventricular extension. Unchanged mild ventriculomegaly. Slightly decreasing conspicuity/extent of subarachnoidhemorrhage. All CT scans at this facility use dose modulation, iterative reconstruction, and/or weight based dosing when appropriate to reduce radiation dose to as low as reasonably achievable. Finalized by Gabino Santos MD on 04/09/2023 1:18 PM X-ray chest 1 view Result Date: 04/09/2023 Single view chest History: Wheezing Comparison: 04/09/2023 Findings: 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 Stable cardiomediastinal silhouette. Enteric tube over the distal stomach. Similar patchy opacities of upper lobe predominance. Trace effusions. No pneumothorax. Impression: Similar patchy opacities of the upper lobe predominance. Perhaps trace effusions. Finalized by Caro Gilliland MD on 04/09/2023 6:24 AM X-ray chest 1 view Result Date: 04/09/2023 History: Pneumonia Technique: A portable single frontal view the chest was obtained. Comparison: 04/08/2023 Findings: Hazy infiltrative changes are again seen in the right upper lobe. The left lung field appears clear from active process. The heart size is within normal limits. A endograft is seen descending thoracic aorta. Aneurysmal dilatation of the aortic arch is again demonstrated. Enteric tube is again seen with its tip in the stomach. Impression: * Right upper lobe infiltrate, similar to the prior study. * Tortuosity of the thoracic aorta with aneurysmal dilatation of the arch and an endograft in the descending thoracic aorta. Finalized by Arianne Rodrigues MD on 04/09 4:34 AM Lab Review Recent Results (from the past 48 hour(s)) Sodium Collection Time: 04/09/23 12:20 PM Result Value Ref Range Sodium 149 (H) 134 - 146 mmol/L Vitamin B12 Collection Time: 04/09/23 12:20 PM Result Value Ref Range Vitamin B-12 416 180 - 914 pg/mL Iron and TIBC Collection Time: 04/09/23 12:20 PM Result Value Ref Range Iron 45 (L) 50 - 170 ug/dL Tibc-calc only do not order 217 (L) 250 - 425 ug/dL Iron Saturation 21 15 - 50 % SATURATION Ferritin Collection Time: 04/09/23 12:20 PM Result Value Ref Range Ferritin 618 (H) 11 - 307 ng/mL Folate Collection Time: 04/09/23 12:20 PM Result Value Ref Range Folate 12.0 >5.8 ng/mL Clinical Pathology Blood Smear Review Clinical Collection Time: 04/09/23 1:55 PM Result Value Ref Range Staff review NOTE Direct Leonel Collection Time: 04/09/23 5:00 PM Result Value Ref Range Polyspecific MELE Negative Ionized magnesium Collection Time: 04/09/23 5:15 PM Result Value Ref Range Magnesium, ionized 0.75 (H) 0.45 - 0.74 mmol/L LDH Collection Time: 04/09/23 5:15 PM Result Value Ref Range LDH 297 (H) 100 - 235 U/L Haptoglobin Collection Time: 04/09/23 5:15 PM Result Value Ref Range Haptoglobin 318 (H) 32 - 228 mg/dL Reticulocytes Collection Time: 04/09/23 5:15 PM Result Value Ref Range Reticulocyte 0.9 0.4 - 2.2 % Fibrinogen Collection Time: 04/09/23 5:15 PM Result Value Ref Range Fibrinogen 602 (H) 190 - 480 mg/dL Potassium Collection Time: 04/09/23 5:15 PM Result Value Ref Range Potassium, Bld 3.9 3.5 - 5.0 mmol/L Sodium Collection Time: 04/09/23 5:15 PM Result Value Ref Range Sodium 151 (H) 134 - 146 mmol/L Protime & INR Collection Time: 04/09/23 8:36 PM Result Value Ref Range Protime 13.3 (H) 9.8 - 13.2 sec Inr 1.1 0.8 - 1.1 APTT Collection Time: 04/09/23 8:36 PM Result Value Ref Range aPTT 32 26 - 37 sec D-Dimer Collection Time: 04/09/23 8:36 PM Result Value Ref Range D-dimer 15,223 (H) <255 ng/mL DDU Comprehensive metabolic panel Collection Time: 04/10/23 12:41 AM Result Value Ref Range Sodium 151 (H) 134 - 146 mmol/L Potassium, Bld 3.8 3.5 - 5.0 mmol/L Chloride 115 (H) 98 - 109 mmol/L CO2 28 22 - 32 mmol/L Anion gap 8 5 - 15 mmol/L BUN 38 (H) 5 - 27 mg/dL Creatinine 0.80 0.40 - 1.00 mg/dL Glucose 113 (H) 65 - 99 mg/dL Calcium 8.6 8.5 - 10.5 mg/dL Total Protein 6.4 6.0 - 8.0 g/dL Albumin 3.2 3.2 - 5.3 g/dL Alkaline Phosphatase 109 39 - 130 U/L AST 48 (H) 0 - 41 U/L ALT 88 (H) 0 - 31 U/L Total bilirubin 0.8 0.3 - 1.2 mg/dL eGFR (CKD-EPI)non-race dependent 74 >59 ml/min/1.73sq.m CBC auto differential Collection Time: 04/10/23 12:41 AM Result Value Ref Range White Blood Cells 8.9 4.0 - 11.0 X10E9/L RBC count 4.12 3.80 - 5.20 X10E12/L Hemoglobin 12.0 11.7 - 15.5 g/dL Hematocrit 35.6 35 - 47 % MCV 86 80 - 100 fL MCH 29.0 27 - 34 pg MCHC 33.6 32 - 36 g/dL RDW 15.0 11.5 - 15.0 % Platelets 87 (L) 150 - 450 X10E9/L MPV 9.7 7 - 12 fL % neutrophils 80.2 % % lymphocytes 9.1 % % monocytes 7.7 % % eosinophils 2.7 % % Basophils 0.3 % Neutrophils Absolute (A) 7.2 (H) 1.5 - 6.6 X10E9/L Lymphocytes Absolute 0.8 (L) 1.0 - 3.5 X10E9/L Monocytes Absolute 0.7 0 - 0.9 X10E9/L Eosinophils Absolute 0.2 0.0 - 0.4 X10E9/L Basophils Absolute 0.0 0.0 - 0.2 X10E9/L Magnesium Collection Time: 04/10/23 12:41 AM Result Value Ref Range Magnesium 2.4 1.8 - 2.6 mg/dL Procalcitonin Collection Time: 04/10/23 12:41 AM Result Value Ref Range Procalcitonin 0.15 (H) <0.05 ng/mL Sodium Collection Time: 04/10/23 6:20 AM Result Value Ref Range Sodium 152 (H) 134 - 146 mmol/L Potassium Collection Time: 04/10/23 6:20 AM Result Value Ref Range Potassium, Bld 3.8 3.5 - 5.0 mmol/L Electrolyte panel Collection Time: 04/10/23 1:11 PM Result Value Ref Range Sodium 150 (H) 134 - 146 mmol/L Potassium, Bld 3.9 3.5 - 5.0 mmol/L Chloride 115 (H) 98 - 109 mmol/L CO2 24 22 - 32 mmol/L Anion gap 11 5 - 15 mmol/L KAY Screen w/ Reflex Collection Time: 04/10/23 1:11 PM Result Value Ref Range Kay screen Positive (A) Negative^Negative Rheumatoid factor Collection Time: 04/10/23 1:11 PM Result Value Ref Range Rheumatoid factor 14 <20 IU/mL Hepatitis panel, acute Collection Time: 04/10/23 1:11 PM Result Value Ref Range Hepatitis B Surface Ag Negative Negative^Negative Hep B Core IgM Ab Negative Negative^Negative Hep A IgM Ab Non-Reactive Non-Reactive^Non-Reactive Anti HCV w/ PCR reflex Non-Reactive Non-Reactive^Non-Reactive HIV 1&2 AB/AG Screen (P24 AG) Collection Time: 04/10/23 1:11 PM Result Value Ref Range HIV 1&2 AB/AG Non-Reactive Non-Reactive^Non-Reactive Protein electrophoresis, serum Collection Time: 04/10/23 1:11 PM Result Value Ref Range Total Protein 5.7 (L) 6.0 - 8.0 g/dL Albumin 2.4 (L) 3.4 - 5.3 g/dL Alpha 1 0.5 (H) 0.1 - 0.4 g/dL Alpha 2 1.1 0.4 - 1.1 g/dL Beta 0.9 0.5 - 1.2 g/dL Gamma Globulin 0.7 0.5 - 1.6 g/dL Prot. electrophoresis interp PENDING Immunoelectrophoresis for Therapy Monitoring Collection Time: 04/10/23 1:11 PM Result Value Ref Range IgA 374 68 - 378 mg/dL IgM 38 (L) 45 - 281 mg/dL IgG 786 635 - 1,741 mg/dL Free [place] Lt Chains 6.32 (H) 0.33 - 1.94 mg/dL Free Lambda Lt Chains 3.70 (H) 0.57 - 2.63 mg/dL Free zoila/lambda ratio 1.71 (H) 0.26 - 1.65 Immune profile inter PENDING Anti-Chromatin IGG Collection Time: 04/10/23 1:11 PM Result Value Ref Range Anti-chromatin IgG <0.2 <1.0 AI Anti-DNA antibody, double-stranded Collection Time: 04/10/23 1:11 PM Result Value Ref Range Ds DNA <1 <5 IU/ML PAPER CUP HANDLE MACHINE OPERATOR AB IgG Collection Time: 04/10/23 1:11 PM Result Value Ref Range Anti PAPER CUP HANDLE MACHINE OPERATOR 1.0 (H) <1.0 AI Anti-Ruelas AB IGG Collection Time: 04/10/23 1:11 PM Result Value Ref Range Anti-ruelas AB IgG <0.2 <1.0 AI 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 IgG Collection Time: 04/10/23 1:11 PM Result Value Ref Range Anti-Sm/PAPER CUP HANDLE MACHINE OPERATOR <0.2 <1.0 AI Electrolyte panel Collection Time: 04/10/23 6:59 PM Result Value Ref Range Sodium 149 (H) 134 - 146 mmol/L Potassium, Bld 3.8 3.5 - 5.0 mmol/L Chloride 116 (H) 98 - 109 mmol/L CO2 23 22 - 32 mmol/L Anion gap 10 5 - 15 mmol/L Comprehensive metabolic panel Collection Time: 04/11/23 12:34 AM Result Value Ref Range Sodium 150 (H) 134 - 146 mmol/L Potassium, Bld 4.6 3.5 - 5.0 mmol/L Chloride 119 (H) 98 - 109 mmol/L CO2 23 22 - 32 mmol/L Anion gap 8 5 - 15 mmol/L BUN 39 (H) 5 - 27 mg/dL Creatinine 0.88 0.40 - 1.00 mg/dL Glucose 153 (H) 65 - 99 mg/dL Calcium 8.6 8.5 - 10.5 mg/dL Total Protein 5.9 (L) 6.0 - 8.0 g/dL Albumin 2.9 (L) 3.2 - 5.3 g/dL Alkaline Phosphatase 91 39 - 130 U/L AST 54 (H) 0 - 41 U/L ALT 94 (H) 0 - 31 U/L Total bilirubin 0.6 0.3 - 1.2 mg/dL eGFR (CKD-EPI)non-race dependent 66 >59 ml/min/1.73sq.m CBC auto differential Collection Time: 04/11/23 12:34 AM Result Value Ref Range White Blood Cells 9.7 4.0 - 11.0 X10E9/L RBC count 3.95 3.80 - 5.20 X10E12/L Hemoglobin 11.4 (L) 11.7 - 15.5 g/dL Hematocrit 34.0 (L) 35 - 47 % MCV 86 80 - 100 fL MCH 28.9 27 - 34 pg MCHC 33.5 32 - 36 g/dL RDW 15.1 (H) 11.5 - 15.0 % Platelets 97 (L) 150 - 450 X10E9/L MPV 10.3 7 - 12 fL % neutrophils 80.7 % % lymphocytes 8.9 % % monocytes 6.0 % % eosinophils 3.8 % % Basophils 0.6 % Neutrophils Absolute (A) 7.9 (H) 1.5 - 6.6 X10E9/L Lymphocytes Absolute 0.9 (L) 1.0 - 3.5 X10E9/L Monocytes Absolute 0.6 0 - 0.9 X10E9/L Eosinophils Absolute 0.4 0.0 - 0.4 X10E9/L Basophils Absolute 0.1 0.0 - 0.2 X10E9/L Magnesium Collection Time: 04/11/23 12:34 AM Result Value Ref Range Magnesium 2.1 1.8 - 2.6 mg/dL Electrolyte panel Collection Time: 04/11/23 5:58 AM Result Value Ref Range Sodium 151 (H) 134 - 146 mmol/L Potassium, Bld 4.0 3.5 - 5.0 mmol/L Chloride 118 (H) 98 - 109 mmol/L CO2 24 22 - 32 mmol/L Anion gap 9 5 - 15 mmol/L Associated attestation - Kishore Neff MD - 04/16/2023 8:31 AM EST I have seen, examined and performed felix parts of this encounter with my resident and I agree with the assessment and plan. * Bryon Kim MD - 04/11/2023 9:40 AM ESTAssociated Order(s): IP CONSULT TO PHYSICAL MEDICINE REHAB Images from the original note were not included. PHYSICAL MEDICINE AND REHABILITATION CONSULT Date of Admission: 04/01/2023 4:08 AM Referring Physician: Willard Krueger MD PCP: NITHYA BROWN MD Chief Compliant: Principal Problem: 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[facility]) Reason for Consultation: Rehabilitation Candidacy and Rehab Visual Manager Physicians/Services Consulting Providers Provider Service Specialty Jazmine Nunez MD -- Neurology Michele Estrada MD -- Hematology Kishore Neff MD -- Rheumatology Agatha Eden MD Z Physical Medicine and Rehabilitation Physical Medicine and Rehabilitation Surgery B (Tt Only) -- General Surgery History Of Present Illness: Ellen Chan is a 78 y.o. White or female with a history of AAA, hypertension who presents to the hospital with right-sided weakness on 04/01/2023 4:08 AM. Patient was found to have intraparenchymal hemorrhage on CT scan small left thalamic. Patient was transferred to ICU for further monitoring. Patient also developed some respiratory distress. Hematology was consulted for thrombocytopenia. Patient was also diagnosed with multifocal pneumonia and acute hypoxic respiratory failure. Patient was requiring high-flow oxygen now increased to 2 L at rest. I was consulted regarding Rehabilitation needs. ROS : A comprehensive 14 review of systems was negative except for right-sided weakness, gait difficulty,generalized weakness, unable to answer quesitons Cardiovascular ROS: negative Respiratory ROS: negative Neurological ROS: positive for - gait disturbance and weakness Musculoskeletal ROS: positive for - gait disturbance and muscular weakness PMH Past Medical History: Diagnosis Date AAA (abdominal aortic aneurysm) ([facility]) was surgically taken care of 09/2018 GERD (gastroesophageal reflux disease) Hypertension Upper respiratory infection 05/2019 Visual impairment glasses PSH Past Surgical History: Procedure Laterality Date BREAST BIOPSY BREAST SURGERY 1989 BREAST BX CARDIAC SURGERY STENT 2019 CARDIAC SURGERY LEFT VENTRICLE STENT 2018 DILATION AND CURETTAGE, DIAGNOSTIC / THERAPEUTIC 1986 HYSTERECTOMY KNEE ARTHROSCOPY Left KNEE ARTHROSCOPY Left REMOVE METAL 2014 LAPAROSCOPIC CHOLECYSTECTOMY N/A 05/26/2019 Performed by Caro Pollard DO at [facility] ORIF WRIST FRACTURE Right Pins Allergies Allergies Allergen Reactions Ciprofloxacin Headache Alendronate Bee Venom Protein (Honey Bee) feels like my eyes are spinning around Usxpsper-Yeelvldqcli-Lldjiygoy Oxycodone Headache I just don't want to take it Medications: Scheduled meds amLODIPine, 10 mg, nasogastric, Daily bisacodyL, 10 mg, rectal, Q3 Days carvediloL, 12.5 mg, nasogastric, BID chlorothiazide (DIURIL) IV, 125 mg, intravenous, Once fondaparinux (ARIXTRA) injection, 1.5 mg, subcutaneous, Daily lisinopriL, 20 mg, nasogastric, Daily magnesium hydroxide, 30 mL, nasogastric, Q3 Days omeprazole-sodium bicarbonate, 40 mg, nasogastric, Daily [COMPLETED] piperacillin-tazobactam (ZOSYN) IV, 4.5 g, intravenous, Once FOLLOWED BY piperacillin-tazobactam (ZOSYN) IV, 3.375 g, intravenous, Q8H sennosides-docusate sodium, 2 tablet, nasogastric, BID PRN meds acetaminophen calcium gluconate OR calcium gluconate OR calcium gluconate dextrose dextrose 5 % in water dextrose 50 % in water (D50W) glucagon (human recombinant) hydrALAZINE ipratropium-albuteroL labetalol magnesium sulfate OR magnesium sulfate melatonin ondansetron potassium chloride OR potassium chloride potassium chloride in water OR potassium chloride in water saliva stimulant comb. no.3 sodium phosphate IV OR sodium phosphate IV - central line OR sod phos di, mono-K phos mono sodium chloride 0.9 % sodium chloride 0.9 % sodium chloride 0.9 % Social History Social History Socioeconomic History Marital status: Spouse name: Not on file Number of children: Not on file Years of education: Not on file Highest education level: Not on file Occupational History Not on file Tobacco Use Smoking status: Former Smokeless tobacco: Never Tobacco comments: QUIT IN JUNE 2019 Vaping Use Vaping Use: Never used Substance and Sexual Activity Alcohol use: Yes Comment: SOMETIMES Drug use: Never Sexual activity: Defer Other Topics Concern Not on file Social History Narrative Not on file Social Determinants of Health Financial Resource Strain: Not on file Food Insecurity: Not on file Transportation Needs: Not on file Physical Activity: Not on file Stress: Not on file Social Connections: Not on file Interpersonal Safety: Not on file Patient is nonverbal. Premorbid level of function: Prior Function Other: Not able to assess prior level of function as pt non-verbal and family not present at time of eval (04/04/23 1041) Family History History reviewed. No pertinent family history. Physical Examination Vital Signs: Blood pressure 107/75, pulse 75, temperature 36.9 C (98.4 F), temperature source Oral,resp. rate 19, height 162.6 cm (5' 4 ), weight 66.1 kg (145 lb 11.6 oz), SpO2 97%. Admission Weight: Weight: 68.5 kg (151 lb 0.2 oz) General Appearance: Healthy, alert, active, cooperative, and in no distress Head: Normocephalic, without obvious abnormality, atraumatic Eyes: conjunctivae/corneas clear. PERRL, EOM's intact. Fundi benign. ENT: ENT exam normal, no neck nodes or sinus tenderness Neck: no adenopathy, no carotid bruit, no JVD, supple, symmetrical, trachea midline, and thyroid not enlarged, symmetric, no tenderness/mass/nodules Lungs: clear to auscultation bilaterally Heart: regular rate and rhythm, S1, S2 normal, no murmur, click, rub or gallop Abdomen: soft, non-tender; bowel sounds normal; no masses, no organomegaly Extremities: extremities normal, atraumatic, no cyanosis or edema Skin: Skin color, texture, turgor normal. No rashes or lesions Neurologic: Grossly normal IMAGE: X-ray chest 1 view Result Date: 04/11/2023 Clinical History: Follow-up infiltrates. Shortness of breath. Portable Upright chest: 04/11/2023 Comparison: 04/10/2023 Findings: A single portable view of the chest was obtained. Enteric tube extends the upper abdomen. The cardiac silhouette is prominent with vascular tortuosity. Stents are present lower chest is mild vascular prominence centrally. There is hazy peripheral opacity greatest in the right upper lung with no change in this region. IMPRESSION: Stable pulmonary infiltrates. No acute change. Finalized by Rajan Mtz MD on 04/11/2023 6:52 AM LABS Recent Results (from the past 48 hour(s)) Sodium Collection Time: 04/09/23 12:20 PM Result Value Ref Range Sodium 149 (H) 134 - 146 mmol/L Vitamin B12 Collection Time: 04/09/23 12:20 PM Result Value Ref Range Vitamin B-12 416 180 - 914 pg/mL Iron and TIBC Collection Time: 04/09/23 12:20 PM Result Value Ref Range Iron 45 (L) 50 - 170 ug/dL Tibc-calc only do not order 217 (L) 250 - 425 ug/dL Iron Saturation 21 15 - 50 % SATURATION Ferritin Collection Time: 04/09/23 12:20 PM Result Value Ref Range Ferritin 618 (H) 11 - 307 ng/mL Folate Collection Time: 04/09/23 12:20 PM Result Value Ref Range Folate 12.0 >5.8 ng/mL Clinical Pathology Blood Smear Review Clinical Collection Time: 04/09/23 1:55 PM Result Value Ref Range Staff review NOTE Direct Leonel Collection Time: 04/09/23 5:00 PM Result Value Ref Range Polyspecific MELE Negative Ionized magnesium Collection Time: 04/09/23 5:15 PM Result Value Ref Range Magnesium, ionized 0.75 (H) 0.45 - 0.74 mmol/L LDH Collection Time: 04/09/23 5:15 PM Result Value Ref Range LDH 297 (H) 100 - 235 U/L Haptoglobin Collection Time: 04/09/23 5:15 PM Result Value Ref Range Haptoglobin 318 (H) 32 - 228 mg/dL Reticulocytes Collection Time: 04/09/23 5:15 PM Result Value Ref Range Reticulocyte 0.9 0.4 - 2.2 % Fibrinogen Collection Time: 04/09/23 5:15 PM Result Value Ref Range Fibrinogen 602 (H) 190 - 480 mg/dL Potassium Collection Time: 04/09/23 5:15 PM Result Value Ref Range Potassium, Bld 3.9 3.5 - 5.0 mmol/L Sodium Collection Time: 04/09/23 5:15 PM Result Value Ref Range Sodium 151 (H) 134 - 146 mmol/L Protime & INR Collection Time: 04/09/23 8:36 PM Result Value Ref Range Protime 13.3 (H) 9.8 - 13.2 sec Inr 1.1 0.8 - 1.1 APTT Collection Time: 04/09/23 8:36 PM Result Value Ref Range aPTT 32 26 - 37 sec D-Dimer Collection Time: 04/09/23 8:36 PM Result Value Ref Range D-dimer 15,223 (H) <255 ng/mL DDU Comprehensive metabolic panel Collection Time: 04/10/23 12:41 AM Result Value Ref Range Sodium 151 (H) 134 - 146 mmol/L Potassium, Bld 3.8 3.5 - 5.0 mmol/L Chloride 115 (H) 98 - 109 mmol/L CO2 28 22 - 32 mmol/L Anion gap 8 5 - 15 mmol/L BUN 38 (H) 5 - 27 mg/dL Creatinine 0.80 0.40 - 1.00 mg/dL Glucose 113 (H) 65 - 99 mg/dL Calcium 8.6 8.5 - 10.5 mg/dL Total Protein 6.4 6.0 - 8.0 g/dL Albumin 3.2 3.2 - 5.3 g/dL Alkaline Phosphatase 109 39 - 130 U/L AST 48 (H) 0 - 41 U/L ALT 88 (H) 0 - 31 U/L Total bilirubin 0.8 0.3 - 1.2 mg/dL eGFR (CKD-EPI)non-race dependent 74 >59 ml/min/1.73sq.m CBC auto differential Collection Time: 04/10/23 12:41 AM Result Value Ref Range White Blood Cells 8.9 4.0 - 11.0 X10E9/L RBC count 4.12 3.80 - 5.20 X10E12/L Hemoglobin 12.0 11.7 - 15.5 g/dL Hematocrit 35.6 35 - 47 % MCV 86 80 - 100 fL MCH 29.0 27 - 34 pg MCHC 33.6 32 - 36 g/dL RDW 15.0 11.5 - 15.0 % Platelets 87 (L) 150 - 450 X10E9/L MPV 9.7 7 - 12 fL % neutrophils 80.2 % % lymphocytes 9.1 % % monocytes 7.7 % % eosinophils 2.7 % % Basophils 0.3 % Neutrophils Absolute (A) 7.2 (H) 1.5 - 6.6 X10E9/L Lymphocytes Absolute 0.8 (L) 1.0 - 3.5 X10E9/L Monocytes Absolute 0.7 0 - 0.9 X10E9/L Eosinophils Absolute 0.2 0.0 - 0.4 X10E9/L Basophils Absolute 0.0 0.0 - 0.2 X10E9/L Magnesium Collection Time: 04/10/23 12:41 AM Result Value Ref Range Magnesium 2.4 1.8 - 2.6 mg/dL Procalcitonin Collection Time: 04/10/23 12:41 AM Result Value Ref Range Procalcitonin 0.15 (H) <0.05 ng/mL Sodium Collection Time: 04/10/23 6:20 AM Result Value Ref Range Sodium 152 (H) 134 - 146 mmol/L Potassium Collection Time: 04/10/23 6:20 AM Result Value Ref Range Potassium, Bld 3.8 3.5 - 5.0 mmol/L Electrolyte panel Collection Time: 04/10/23 1:11 PM Result Value Ref Range Sodium 150 (H) 134 - 146 mmol/L Potassium, Bld 3.9 3.5 - 5.0 mmol/L Chloride 115 (H) 98 - 109 mmol/L CO2 24 22 - 32 mmol/L Anion gap 11 5 - 15 mmol/L KAY Screen w/ Reflex Collection Time: 04/10/23 1:11 PM Result Value Ref Range Kay screen Positive (A) Negative^Negative Rheumatoid factor Collection Time: 04/10/23 1:11 PM Result Value Ref Range Rheumatoid factor 14 <20 IU/mL Hepatitis panel, acute Collection Time: 04/10/23 1:11 PM Result Value Ref Range Hepatitis B Surface Ag Negative Negative^Negative Hep B Core IgM Ab Negative Negative^Negative Hep A IgM Ab Non-Reactive Non-Reactive^Non-Reactive Anti HCV w/ PCR reflex Non-Reactive Non-Reactive^Non-Reactive HIV 1&2 AB/AG Screen (P24 AG) Collection Time: 04/10/23 1:11 PM Result Value Ref Range HIV 1&2 AB/AG Non-Reactive Non-Reactive^Non-Reactive Protein electrophoresis, serum Collection Time: 04/10/23 1:11 PM Result Value Ref Range Total Protein 5.7 (L) 6.0 - 8.0 g/dL Albumin PENDING 3.4 - 5.3 g/dL Alpha 1 PENDING 0.1 - 0.4 g/dL Alpha 2 PENDING 0.4 - 1.1 g/dL Beta PENDING 0.5 - 1.2 g/dL Gamma Globulin PENDING 0.5 - 1.6 g/dL Prot. electrophoresis interp PENDING Immunoelectrophoresis for Therapy Monitoring Collection Time: 04/10/23 1:11 PM Result Value Ref Range IgA 374 68 - 378 mg/dL IgM 38 (L) 45 - 281 mg/dL IgG 786 635 - 1,741 mg/dL Free [place] Lt Chains 6.32 (H) 0.33 - 1.94 mg/dL Free Lambda Lt Chains 3.70 (H) 0.57 - 2.63 mg/dL Free zoila/lambda ratio 1.71 (H) 0.26 - 1.65 Immune profile inter PENDING Anti-Chromatin IGG Collection Time: 04/10/23 1:11 PM Result Value Ref Range Anti-chromatin IgG <0.2 <1.0 AI Anti-DNA antibody, double-stranded Collection Time: 04/10/23 1:11 PM Result Value Ref Range Ds DNA <1 <5 IU/ML PAPER CUP HANDLE MACHINE OPERATOR AB IgG Collection Time: 04/10/23 1:11 PM Result Value Ref Range Anti PAPER CUP HANDLE MACHINE OPERATOR 1.0 (H) <1.0 AI Anti-Ruelas AB IGG Collection Time: 04/10/23 1:11 PM Result Value Ref Range Anti-ruelas AB IgG <0.2 <1.0 AI 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 IgG Collection Time: 04/10/23 1:11 PM Result Value Ref Range Anti-Sm/PAPER CUP HANDLE MACHINE OPERATOR <0.2 <1.0 AI Electrolyte panel Collection Time: 04/10/23 6:59 PM Result Value Ref Range Sodium 149 (H) 134 - 146 mmol/L Potassium, Bld 3.8 3.5 - 5.0 mmol/L Chloride 116 (H) 98 - 109 mmol/L CO2 23 22 - 32 mmol/L Anion gap 10 5 - 15 mmol/L Comprehensive metabolic panel Collection Time: 04/11/23 12:34 AM Result Value Ref Range Sodium 150 (H) 134 - 146 mmol/L Potassium, Bld 4.6 3.5 - 5.0 mmol/L Chloride 119 (H) 98 - 109 mmol/L CO2 23 22 - 32 mmol/L Anion gap 8 5 - 15 mmol/L BUN 39 (H) 5 - 27 mg/dL Creatinine 0.88 0.40 - 1.00 mg/dL Glucose 153 (H) 65 - 99 mg/dL Calcium 8.6 8.5 - 10.5 mg/dL Total Protein 5.9 (L) 6.0 - 8.0 g/dL Albumin 2.9 (L) 3.2 - 5.3 g/dL Alkaline Phosphatase 91 39 - 130 U/L AST 54 (H) 0 - 41 U/L ALT 94 (H) 0 - 31 U/L Total bilirubin 0.6 0.3 - 1.2 mg/dL eGFR (CKD-EPI)non-race dependent 66 >59 ml/min/1.73sq.m CBC auto differential Collection Time: 04/11/23 12:34 AM Result Value Ref Range White Blood Cells 9.7 4.0 - 11.0 X10E9/L RBC count 3.95 3.80 - 5.20 X10E12/L Hemoglobin 11.4 (L) 11.7 - 15.5 g/dL Hematocrit 34.0 (L) 35 - 47 % MCV 86 80 - 100 fL MCH 28.9 27 - 34 pg MCHC 33.5 32 - 36 g/dL RDW 15.1 (H) 11.5 - 15.0 % Platelets 97 (L) 150 - 450 X10E9/L MPV 10.3 7 - 12 fL % neutrophils 80.7 % % lymphocytes 8.9 % % monocytes 6.0 % % eosinophils 3.8 % % Basophils 0.6 % Neutrophils Absolute (A) 7.9 (H) 1.5 - 6.6 X10E9/L Lymphocytes Absolute 0.9 (L) 1.0 - 3.5 X10E9/L Monocytes Absolute 0.6 0 - 0.9 X10E9/L Eosinophils Absolute 0.4 0.0 - 0.4 X10E9/L Basophils Absolute 0.1 0.0 - 0.2 X10E9/L Magnesium Collection Time: 04/11/23 12:34 AM Result Value Ref Range Magnesium 2.1 1.8 - 2.6 mg/dL Electrolyte panel Collection Time: 04/11/23 5:58 AM Result Value Ref Range Sodium 151 (H) 134 - 146 mmol/L Potassium, Bld 4.0 3.5 - 5.0 mmol/L Chloride 118 (H) 98 - 109 mmol/L CO2 24 22 - 32 mmol/L Anion gap 9 5 - 15 mmol/L THERAPY Speech Therapy Yes Dysphagia, Cognition, and Aphasia Current Level of Function - Physical Therapy Mobility/transfers: Supine to Sit: Total assist (04/04/231040) Sit to Supine: Total assist (04/04/231040) Transfers Other: Dependent at this time. Not appropriate to attempt standing due to R hemiparesis and poor balance/safety awareness. Recommend maxi sophia lift for safe transfers (04/04/231040) Ambulation: Gait Other: Dependent at this time (04/04/231040) Activity limitations: Activity Tolerance Endurance: Tolerates <30 minutes activity WITHOUT vital sign changes (04/04/231040) Other: Limited by R hemiparesis and poor balance (04/04/231040) Weight-bearing: Current Level of Function - Occupational Therapy Feeding: Grooming: Bathing: Dressing: Toileting: Activity limitations: Activity Tolerance Endurance: Tolerates <30 minutes activity WITHOUT vital sign changes (04/04/23 104) Other: Limited by R hemiparesis and poor balance (04/04/231040) Assessment/Plan Principal Problem: 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CMS-HCC) Right-sided weakness Nonverbal Hypertension Aphasia Thrombocytopenia Dysphagia-PEG tube placement was recommended Discussed rehab options such as inpatient/acute rehab 3 hours of therapy a day with 24 hours of doctors and nurses care vs skilled care nursing center/subacute rehab 1-2 hours of therapy a day vs home care with home care or outpatient therapy. Reviewed Physical and occupational therapy notes, currently requiring total assist. Inpatient vs SNF pending patient's prrogress, unable to follow directions. Going for PEG Thank you for the referral. Bryon Kim MD * Jack Meraz MD - 04/09/2023 3:34 PM ESTAssociated Order(s): IP CONSULT TO HEMATOLOGY Images from the original note were not included. [facility] Jack Meraz M.D. Austin Spain M.D. Arianne Cha M.D. Neetu Sinder M.D. Angeles Conner, [facility] Chen Lloyd, CHILD WELFARE ASSISTANT-STUDY LEAD Miriam Cm, CHILD WELFARE ASSISTANT-[facility] Sushma Long, CHILD WELFARE ASSISTANT-[facility] AZIZA Herring M.D. Feng Jiang, M.D. Jeffrey Muler, M.D. Donaldo Weems M.D. Isabel Garrett, CHILD WELFARE ASSISTANT-STUDY LEAD Piedad Armando, CHILD WELFARE ASSISTANT-STUDY LEAD Josh Gale, CHILD WELFARE ASSISTANT-STUDY LEAD Nayely Ruelas, [facility] Rachna Burk, CHILD WELFARE ASSISTANT-[facility] PROMEDIC HEMATOLOGY ONCOLOGY CONSULT NOTE Reason for consult: for thrombocytopenia History of present illness: The patient is a 78 y.o. female with a PMHx of AAA, GERD, HTN. She presented to [facility] from an OSH with right-sided weakness. She was found to be hypertensive. Unfortunately, she was having difficulty endorsing any history upon arrival, but knows that her symptoms began on 03/31/2023 at approximately 0900. She was transferred after she was found to have an ICH. During this admission, she's experienced acute respiratory insufficiency, multifocal pneumonia, leukocytosis, hypernatremia, JOHN. Hematology has been consulted for worsening thrombocytopenia. Currently, patient is resting in bed, high flow nasal cannula in place. Family is at bedside. We discussed her consult. Patient is very lethargic today in heading for new head CT to revisualized headbleed. We discussed her history. Family believes that patient has had thrombocytopenia for a while.Chart review showed a low platelet count in 2019. We discussed our workup which includes lab work. Patient could undergo bone marrow biopsy if lab work is not helpful. Family verbalized understandingno questions at this time. Oncology History No history exists. Objective Review of Systems Constitutional: Negative for appetite change and fatigue. HENT: Negative for congestion. Eyes: Negative for pain. Respiratory: Negative for shortness of breath. Cardiovascular: Negative for chest pain. Gastrointestinal: Negative for abdominal pain. Endocrine: Negative for cold intolerance and heat intolerance. Genitourinary: Negative for dysuria. Musculoskeletal: Negative for back pain. Skin: Negative for rash. Neurological: Positive for speech difficulty and weakness. Negative for light-headedness. Hematological: Does not bruise/bleed easily. Psychiatric/Behavioral: The patient is not nervous/anxious. Physical Exam: Vitals: BP 90/65 Pulse 82 Temp 36.5 C (97.7 F) (Oral) Resp 20 Ht 162.6 cm (5' 4 ) Wt 65.6kg (144 lb 10 oz) SpO2 100% BMI 24.82 kg/m Body mass index is 24.82 kg/m . Physical Exam Vitals and nursing note reviewed. Constitutional: General: She is not in acute distress. Appearance: Normal appearance. HENT: Head: Normocephalic and atraumatic. Right Ear: External ear normal. Left Ear: External ear normal. Nose: Nose normal. Mouth/Throat: Mouth: Mucous membranes are moist. Eyes: Conjunctiva/sclera: Conjunctivae normal. Pupils: Pupils are equal, round, and reactive to light. Cardiovascular: Rate and Rhythm: Normal rate and regular rhythm. Pulses: Normal pulses. Heart sounds: Normal heart sounds. No murmur heard. No friction rub. No gallop. Pulmonary: Effort: Pulmonary effort is normal. Breath sounds: Normal breath sounds. Abdominal: General: Abdomen is flat. There is no distension. Palpations: There is no mass. Musculoskeletal: General: Normal range of motion. Cervical back: Normal range of motion and neck supple. Right lower leg: No edema. Left lower leg: No edema. Skin: General: Skin is warm and dry. Coloration: Skin is not jaundiced. Findings: No bruising or rash. Neurological: Mental Status: She is lethargic. Cranial Nerves: No cranial nerve deficit. Sensory: No sensory deficit. ECO- Symptomatic; in bed >50% of the day Past Medical History: Diagnosis Date AAA (abdominal aortic aneurysm) ([facility]) was surgically taken care of 09/2018 GERD (gastroesophageal reflux disease) Hypertension Upper respiratory infection 05/2019 Visual impairment glasses Past Surgical History: Procedure Laterality Date BREAST BIOPSY BREAST SURGERY 1989 BREAST BX CARDIAC SURGERY STENT 2018 CARDIAC SURGERY LEFT VENTRICLE STENT 2018 DILATION AND CURETTAGE, DIAGNOSTIC / THERAPEUTIC 1986 HYSTERECTOMY KNEE ARTHROSCOPY Left KNEE ARTHROSCOPY Left REMOVE METAL 2014 LAPAROSCOPIC CHOLECYSTECTOMY N/A 05/26/2019 Performed by Caro Pollard DO at [facility] ORIF WRIST FRACTURE Right Pins History reviewed. No pertinent family history. Social History Socioeconomic History Marital status: Spouse name: Not on file Number of children: Not on file Years of education: Not on file Highest education level: Not on file Occupational History Not on file Tobacco Use Smoking status: Former Smokeless tobacco: Never Tobacco comments: QUIT IN JUNE 2019 Vaping Use Vaping Use: Never used Substance and Sexual Activity Alcohol use: Yes Comment: SOMETIMES Drug use: Never Sexual activity: Defer Other Topics Concern Not on file Social History Narrative Not on file Social Determinants of Health Financial Resource Strain: Not on file Food Insecurity: Not on file Transportation Needs: Not on file Physical Activity: Not on file Stress: Not on file Social Connections: Not on file Interpersonal Safety: Not on file Allergies Allergen Reactions Ciprofloxacin Headache Alendronate Bee Venom Protein (Honey Bee) feels like my eyes are spinning around Uvytzokx-Etzabrtyxnq-Gvfcdlhgp Oxycodone Headache I just don't want to take it Inpatient scheduled medication: amLODIPine, 10 mg, nasogastric, Daily bisacodyL, 10 mg, rectal, Q3 Days carvediloL, 12.5 mg, nasogastric, BID heparin (porcine), 5,000 Units, subcutaneous, Q8H DIO ipratropium-albuteroL, 3 mL, nebulization, Q6H While awake lisinopriL, 20 mg, nasogastric, Daily magnesium hydroxide, 30 mL, nasogastric, Q3 Days melatonin, 6 mg, oral, Nightly omeprazole-sodium bicarbonate, 40 mg, nasogastric, Daily [COMPLETED] piperacillin-tazobactam (ZOSYN) IV, 4.5 g, intravenous, Once FOLLOWED BY piperacillin-tazobactam (ZOSYN) IV, 3.375 g, intravenous, Q8H sennosides-docusate sodium, 2 tablet, nasogastric, BID Recent Labs Recent Results (from the past 72 hour(s)) Blood Gas, Arterial Collection Time: 04/07/23 3:12 AM Result Value Ref Range Sample Type ARTERIAL Body Temp 37.0 37.0 C pH 7.510 (H) 7.350 - 7.450 PCO2 33.3 (L) 35 - 45 MMHG PO2 67 (L) 80 - 100 MMHG Base,Excess 4.0 (H) 0.0 - 2.0 MMOL/L Portable HCO3 26.6 (H) 22 - 26 MMOL/L % O2 Sat 95.0 >90 % Shiraz's Test Pass SPO2 96 % Sample Site RRad Insp. O2 Conc. 44 % Oxygen Source OK Comprehensive metabolic panel Collection Time: 04/07/23 3:34 AM Result Value Ref Range Sodium 157 (H) 134 - 146 mmol/L Potassium, Bld 4.0 3.5 - 5.0 mmol/L Chloride 116 (H) 98 - 109 mmol/L CO2 30 22 - 32 mmol/L Anion gap 11 5 - 15 mmol/L BUN 53 (H) 5 - 27 mg/dL Creatinine 1.11 (H) 0.40 - 1.00 mg/dL Glucose 112 (H) 65 - 99 mg/dL Calcium 9.2 8.5 - 10.5 mg/dL Total Protein 6.9 6.0 - 8.0 g/dL Albumin 3.5 3.2 - 5.3 g/dL Alkaline Phosphatase 104 39 - 130 U/L AST 39 0 - 41 U/L ALT 56 (H) 0 - 31 U/L Total bilirubin 0.9 0.3 - 1.2 mg/dL eGFR (CKD-EPI)non-race dependent 50 (L) >59 ml/min/1.73sq.m CBC auto differential Collection Time: 04/07/23 3:34 AM Result Value Ref Range White Blood Cells 14.8 (H) 4.0 - 11.0 X10E9/L RBC count 4.43 3.80 - 5.20 X10E12/L Hemoglobin 12.7 11.7 - 15.5 g/dL Hematocrit 38.6 35 - 47 % MCV 87 80 - 100 fL MCH 28.6 27 - 34 pg MCHC 32.8 32 - 36 g/dL RDW 15.9 (H) 11.5 - 15.0 % Platelets 58 (L) 150 - 450 X10E9/L MPV 10.8 7 - 12 fL % neutrophils 89.8 % % lymphocytes 4.5 % % monocytes 5.6 % % eosinophils 0.0 % % Basophils 0.1 % Neutrophils Absolute (A) 13.3 (H) 1.5 - 6.6 X10E9/L Lymphocytes Absolute 0.7 (L) 1.0 - 3.5 X10E9/L Monocytes Absolute 0.8 0 - 0.9 X10E9/L Eosinophils Absolute 0.0 0.0 - 0.4 X10E9/L Basophils Absolute 0.0 0.0 - 0.2 X10E9/L Bedside Glucose *Place/Obtain serum glucose if >500(>600 MRH) per glucometer. Collection Time: 04/07/23 11:54 AM Result Value Ref Range Bedside glucose 111 (H) 65 - 99 mg/dL Comprehensive metabolic panel Collection Time: 04/08/23 4:18 AM Result Value Ref Range Sodium 158 (H) 134 - 146 mmol/L Potassium, Bld 3.5 3.5 - 5.0 mmol/L Chloride 117 (H) 98 - 109 mmol/L CO2 29 22 - 32 mmol/L Anion gap 12 5 - 15 mmol/L BUN 54 (H) 5 - 27 mg/dL Creatinine 0.97 0.40 - 1.00 mg/dL Glucose 135 (H) 65 - 99 mg/dL Calcium 8.9 8.5 - 10.5 mg/dL Total Protein 6.4 6.0 - 8.0 g/dL Albumin 3.2 3.2 - 5.3 g/dL Alkaline Phosphatase 105 39 - 130 U/L AST 40 0 - 41 U/L ALT 60 (H) 0 - 31 U/L Total bilirubin 0.7 0.3 - 1.2 mg/dL eGFR (CKD-EPI)non-race dependent 59 (L) >59 ml/min/1.73sq.m CBC auto differential Collection Time: 04/08/23 4:18 AM Result Value Ref Range White Blood Cells 11.8 (H) 4.0 - 11.0 X10E9/L RBC count 4.18 3.80 - 5.20 X10E12/L Hemoglobin 12.0 11.7 - 15.5 g/dL Hematocrit 36.4 35 - 47 % MCV 87 80 - 100 fL MCH 28.7 27 - 34 pg MCHC 33.0 32 - 36 g/dL RDW 15.9 (H) 11.5 - 15.0 % Platelets 66 (L) 150 - 450 X10E9/L MPV 10.0 7 - 12 fL % neutrophils 85.6 % % lymphocytes 7.3 % % monocytes 6.0 % % eosinophils 1.0 % % Basophils 0.1 % Neutrophils Absolute (A) 10.2 (H) 1.5 - 6.6 X10E9/L Lymphocytes Absolute 0.9 (L) 1.0 - 3.5 X10E9/L Monocytes Absolute 0.7 0 - 0.9 X10E9/L Eosinophils Absolute 0.1 0.0 - 0.4 X10E9/L Basophils Absolute 0.0 0.0 - 0.2 X10E9/L Potassium Collection Time: 04/08/23 1:40 PM Result Value Ref Range Potassium, Bld 3.5 3.5 - 5.0 mmol/L Sodium Collection Time: 04/08/23 1:40 PM Result Value Ref Range Sodium 155 (H) 134 - 146 mmol/L Sodium Collection Time: 04/08/23 5:47 PM Result Value Ref Range Sodium 152 (H) 134 - 146 mmol/L Sodium Collection Time: 04/08/23 10:03 PM Result Value Ref Range Sodium 148 (H) 134 - 146 mmol/L Comprehensive metabolic panel Collection Time: 04/09/23 1:58 AM Result Value Ref Range Sodium 146 134 - 146 mmol/L Potassium, Bld 3.5 3.5 - 5.0 mmol/L Chloride 113 (H) 98 - 109 mmol/L CO2 26 22 - 32 mmol/L Anion gap 7 5 - 15 mmol/L BUN 33 (H) 5 - 27 mg/dL Creatinine 0.74 0.40 - 1.00 mg/dL Glucose 155 (H) 65 - 99 mg/dL Calcium 8.4 (L) 8.5 - 10.5 mg/dL Total Protein 6.1 6.0 - 8.0 g/dL Albumin 3.1 (L) 3.2 - 5.3 g/dL Alkaline Phosphatase 107 39 - 130 U/L AST 35 0 - 41 U/L ALT 64 (H) 0 - 31 U/L Total bilirubin 0.7 0.3 - 1.2 mg/dL eGFR (CKD-EPI)non-race dependent 82 >59 ml/min/1.73sq.m CBC auto differential Collection Time: 04/09/23 1:58 AM Result Value Ref Range White Blood Cells 10.5 4.0 - 11.0 X10E9/L RBC count 3.91 3.80 - 5.20 X10E12/L Hemoglobin 11.5 (L) 11.7 - 15.5 g/dL Hematocrit 33.6 (L) 35 - 47 % MCV 86 80 - 100 fL MCH 29.3 27 - 34 pg MCHC 34.1 32 - 36 g/dL RDW 15.4 (H) 11.5 - 15.0 % Platelets 74 (L) 150 - 450 X10E9/L MPV 10.2 7 - 12 fL % neutrophils 82.7 % % lymphocytes 8.3 % % monocytes 6.9 % % eosinophils 1.9 % % Basophils 0.2 % Neutrophils Absolute (A) 8.7 (H) 1.5 - 6.6 X10E9/L Lymphocytes Absolute 0.9 (L) 1.0 - 3.5 X10E9/L Monocytes Absolute 0.7 0 - 0.9 X10E9/L Eosinophils Absolute 0.2 0.0 - 0.4 X10E9/L Basophils Absolute 0.0 0.0 - 0.2 X10E9/L Sodium Collection Time: 04/09/23 8:12 AM Result Value Ref Range Sodium 146 134 - 146 mmol/L Potassium Collection Time: 04/09/23 8:12 AM Result Value Ref Range Potassium, Bld 3.4 (L) 3.5 - 5.0 mmol/L Magnesium Collection Time: 04/09/23 8:12 AM Result Value Ref Range Magnesium 1.9 1.8 - 2.6 mg/dL Sodium Collection Time: 04/09/23 12:20 PM Result Value Ref Range Sodium 149 (H) 134 - 146 mmol/L Vitamin B12 Collection Time: 04/09/23 12:20 PM Result Value Ref Range Vitamin B-12 416 180 - 914 pg/mL Iron and TIBC Collection Time: 04/09/23 12:20 PM Result Value Ref Range Iron 45 (L) 50 - 170 ug/dL Tibc-calc only do not order 217 (L) 250 - 425 ug/dL Iron Saturation 21 15 - 50 % SATURATION Ferritin Collection Time: 04/09/23 12:20 PM Result Value Ref Range Ferritin 618 (H) 11 - 307 ng/mL Folate Collection Time: 04/09/23 12:20 PM Result Value Ref Range Folate 12.0 >5.8 ng/mL Recent Imaging: CT brain without contrast Result Date: 04/09/2023 Narrative: CT BRAIN WO CONT CLINICAL HISTORY: Transient altered level of awareness. Mental status change, unknown cause COMPARISON: 04/06/2023. TECHNIQUE: CT head was performed without contrast usingthe standard protocol. Automated exposure control was utilized. FINDINGS: Persistent hyperdense hemo rrhage centered in the left posterior thalamus with intraventricular extension, hematoma measures approximately 4.6 cm, similar to prior. Mild ventriculomegaly. Subarachnoid hemorrhage in the right sylvian fissure appears less pronounced than on prior. Similar decreasing conspicuity of subarachnoidhemorrhage along the dorsolateral left frontal lobe. Mass effect with left to right midline shift, 0.7 cm of the pineal gland, similar to prior. Moderate global parenchymal volume loss. Unremarkable temporal bone structures, visualized suprahyoid neck, scalp soft tissues. Lens replacement. Unremarkable paranasal sinuses. IMPRESSION: Minimally changed left thalamic parenchymal hemorrhage with intra ventricular extension. Unchanged mild ventriculomegaly. Slightly decreasing conspicuity/extent of subarachnoid hemorrhage. All CT scans at this facility use dose modulation, iterative reconstruction,and/or weight based dosing when appropriate to reduce radiation dose to as low as reasonably achievable. 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 Stable cardiomediastinal silhouette. Enteric tube over the distal stomach. Similar patchy opacities of upper lobe predominance. Trace effusions. No pneumothorax. Impression: Similar patchy opacities of the upper lobe predominance. Perhaps trace effusions. Finalized by Caro Gilliland MD on 04/09/2023 6:24 AM X-ray chest 1 view Result Date: 04/09/2023 Narrative: History: Pneumonia Technique: A portable single frontal view the chest was obtained. Comparison: 04/08/2023 Findings: Hazy infiltrative changes are again seen in the right upper lobe. The left lung field appears clear from active process. The heart size is within normal limits. A endograftis seen descending thoracic aorta. Aneurysmal dilatation of the aortic arch is again demonstrated. Enteric tube is again seen with its tip in the stomach. Impression: * Right upper lobe infiltrate, similar to the prior study. * Tortuosity of the thoracic aorta with aneurysmal dilatation of the archand an endograft in the descending thoracic aorta. Finalized by Arianne Rodrigues MD on 04/09/2023 4:34 AM X-ray chest 1 view Result Date: 04/08/2023 Narrative: Clinical History: Follow-up pneumonia. Portable Upright chest: 04/08/2023 Comparison: 04/07/2023 Findings: A single portable view of the chest was obtained. The enteric tube extends the upper abdomen. Extensive aortic tortuosity remains with descending thoracic aortic stents. There is no change in the mediastinal contours. Hazy upper lobe opacities persist with improvement on the left. There is no basilar consolidation or pleural effusion evident. No pneumothorax is demonstrated IMPRESSION: Persistent hazy lung infiltrates may reflect edema or pneumonitis with slight improvement on the left. Finalized by Rajan Mtz MD on 04/08/2023 8:21 AM X-ray chest 1 view Result Date: 04/07/2023 Narrative: Clinical History: Aspiration pneumonia. Portable Upright chest: 04/07/2023 Comparison: 04/03/2023 Findings: A single portable view of the chest was obtained. The enteric tube extends the upper abdomen. Is aortic tortuosity is evident with its with prominence of the aortic arch similar toprior studies. Descending aortic stents are evident. There is hazy opacity throughout the mid lungsand basilar regions. No pneumothorax or pleural effusion is present. IMPRESSION: Bilateral infiltrates compatible with edema and/or pneumonia. Aortic tortuosity stable compared to recent radiographs. Finalized by Rajan Mtz MD on 04/07/2023 5:[address] brain without contrast Result Date: 04/06/2023 Narrative: History: Hemorrhagic stroke follow-up. NONCONTRAST HEAD CT Comparison: 04/03/2023 Findings: A large area of left-sided intraparenchymal hemorrhage appears unchanged in size and extent as does extension of blood into the posterior aspects of both ventricles. Shift of midline to the right through maximum 3 mm is unchanged. There is increase in much smaller areas of hyperdense hemorrhage over the right cerebellar lateral cortical surface and right parietal occipital cortical cortical surface and subarachnoid blood in the sylvian fissure. There may be some increase in subarachnoid/cortical surface laterally over the right cerebellar hemisphere although this area was much more obscured by streak artifact from the previous exam IMPRESSION: Large left-sided parenchymal hematoma, intraventricular blood, and 3 mm of midline shift to the right unchanged There appears to be some interval increase in a much smaller areas of right sylvian fissure and right lateral cerebellar subarachnoid and cortical hyperdense blood. All CT scans at this facility use dose modulation, iterative reconstruction, and/or weight based dosing when appropriate to reduce radiation dose to as low as reasonably achievable. Finalized by Julio Cesar Martinez MD on 04/06/2023 10:[address] angiogram chest Result Date: 04/06/2023 Narrative: CTA CHEST HISTORY: Shortness of breath, high probability for pulmonary embolism.. COMPARISON: None. TECHNIQUE: Multidetector CT Angiogram performed with 100 mL of Omnipaque 350 IV contrast. Images obtained through the Chest including 3 -D Maximum intensity projection reconstructions constructed under concurrent physician supervision on a independent workstation. 3 D images obtained to improve visualization of vascular detail. Automatic exposure control (AEC) was utilized. 3D reformatted images confirm the source data findings. All CT scans at this facility use dose modulation, iterative reconstruction, and/or weight based dosing when appropriate to reduce radiation dose to as lowas reasonably achievable. FINDINGS: Lower neck: No acute CT findings in the soft tissues the neck. Lymph nodes: No enlarged lymph nodes by size criteria. Osseous structures/Chest wall: Unremarkable. Central airways: The trachea is midline. There is no mass effect or stenosis. Upper Abdomen: Enterictube projects below the diaphragm into the gastric lumen. Small hiatal hernia. Splenic granulomatous disease. Surgically absent gallbladder with clips in the gallbladder fossa. Heart: Borderline cardiomegaly. Heavy multivessel coronary artery calcification. Pulmonary artery: No evidence of pulmonary embolism. Main pulmonary artery is not enlarged. 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 There is aneurysmal dilatation of the distal aortic arch up to 5.3 cm. Calcifications of the aortic valve. Severe atherosclerotic disease. Lungs: Diffuse multifocal regions of groundglass attenuation seen diffusely throughout the lungs. More confluent airspace opacities are seen within the right lung base. No evidence of pleural effusion or pneumothorax. I MPRESSION: * No evidence of pulmonary embolism. * Multifocal areas of groundglass attenuation seen throughout the lungs. This is nonspecific finding which can be seen in the setting of an atypical orviral infectious process/multifocal pneumonia. More confluent changes in the right lower lobe may be related to atelectasis. * Status post endograft repair of the mid/distal thoracic aorta with aneurysmal dilatation of the distal aortic arch measuring up to 5.3 cm. This is proximal to the area of endograft repair. No prior imaging for comparison. Ongoing imaging follow-up is warranted as well as comparison with outside imaging if available. Approved by Resident Mike Hammond DO on 04/06/2023 4:02 PM ITirso MD have personally reviewed the image(s) and agree with and/or edited thereport Finalized by Tirso Tate MD on 04/06/2023 4:20 PM X-ray chest 1 view Result Date: 04/06/2023 Narrative: XR CHEST 1 VW: 04/06/2023 11:53 AM Clinical: Respiratory distress Upright portable chestis compared with 04/05/2023. NG tube tip remains in stomach. There is ectasia or aneurysm of the aortic knob, unchanged. Aortic stent graft again present. Right hemidiaphragm remains elevated. Congestion resolved. Heart size is normal. No acute consolidation, large effusion, or pneumothorax. IMPRESSION: * No acute disease to limits of this portable exam. Finalized by Jose G Varela MD on 04/06/2023 12:09 PM X-ray chest 1 view Result Date: 04/05/2023 Narrative: Procedure: Chest x-ray performed Number of views:1 History:Shortness of breath concern for aspiration pneumonia Comparison:04/03/2023 Impression: 1. Tubes and lines are stable. There is new diffuse vascular congestion. There is new right midlung airspace disease. There are no effusions or pneumothorax. Finalized by Jose Luis Tyson MD on 04/05/2023 4:58 PM EEG Video Monitoring Daily Result Date: 04/03/2023 Narrative: Continuous video EEG monitoring study 04/03/2023 Date of Report: 04/03/2023 History: This is an 78 yo woman with altered mental status Procedure: Start: 06:36 End: 11:54 [facility] using scalp and ear electrodes in the 10-20 international System. Recording was reviewed with multiple reformatted montages. Quantitative digital analysis data was utilizedas needed. Technical Description: Well-defined up to 8 Hz posterior dominant rhythm was noted at times during this recording. The anterior posterior gradient was present. The background was continuous and asymmetric and consisted of polymorphic admixed theta and delta waves with slower frequencies n oted on the left posterior parietotemporal region. Variability was present. Reactivity was present.Sleep changes were noted with attenuation of the background and appearance of vertex waves and sleep spindles. No definite interictal epileptiform activity in the form of spike or sharp wave is noted. Clinical Interpretation: This EEG is abnormal due to the presence of left posterior parietotemporal background slowing suggestive of left posterior parietotemporal cerebral dysfunction on top of mild generalized background slowing consistent with mild bihemispheric dysfunction that may be seen in p ostictal states, hypoxic, toxic or metabolic abnormalities, sedative medications use or primary neurological disorders. Darnell Buenrostro MD [facility] Echo complete W/O contrast Result Date: 04/03/2023 Narrative: Left Ventricle: Systolic function is normal with an ejection fraction of 60-65%. Mitral Valve: There is mild regurgitation. There is no evidence of mitral valve stenosis. X-ray chest 1 view Result Date: 04/03/2023 Narrative: Single view chest History:Concern for aspiration pneumonia Difficulty breathing, shortness of breath Comparison: 04/02/2023 Findings: Single portable view of the chest. Stable cardiomediastinal silhouette and atherosclerotic tortuous thoracic aorta. Enteric catheter since the stomach. Stable thoracic aortic stent graft. No new focal opacity, effusion or pneumothorax. Impression: No evidence of acute cardiopulmonary process. Finalized by Caro Kramer MD on 04/03/2023 9:02 AM EEG Video Monitoring Daily Result Date: 04/03/2023 Narrative: Continuous video EEG monitoring study Date of Report: 04/03/2023 History: This is an 78 yo woman with altered mental status Procedure: Start: 13:48 04/02/2023 End: 06:34 04/03/2023 This [place] standard [facility]V EEG monitoring report using scalp and ear electrodes in the 10-20 international System. Recording was reviewed with multiple reformatted montages. Quantitative digital analysis data was utilized as needed. Technical Description: Well-defined up to 8 Hz posterior dominant rhythm was noted at times during this recording. The anterior posterior gradient was present. The background was continuous and asymmetric and consisted of polymorphic admixed theta and delta waves with slower frequencies noted on the left posterior parietotemporal region. Variability was present. Reactivity was present. Sleep changes were noted with attenuation of the background and appearance of vertex waves and sleep spindles. No definite interictal epileptiform activity in the form of spike or sharp wave is noted. Clinical Interpretation: This EEG is abnormal due to the presence of left posterior parietal temporal background slowing suggestive of left posterior parietotemporal cerebral dysfunction on top of mild generalized background slowing consistent with mild bihemispheric dysfunction that may be seen in postictal states, hypoxic, toxic or metabolic abnormalities, sedative medications use or primary neurological disorders. Darnell Buenrostro MD [facility] X-ray abdomen NG Tube placement 1 view Result Date: 04/03/2023 Narrative: CLINICAL INFORMATION: NG tube. TECHNIQUE: Abdomen single view AP supine. COMPARISON: None. FINDINGS Aortic stent in place. Elevated right hemidiaphragm. Enteric tube tip projects over the stomach. IMPRESSION: * Enteric tube tip projects over the stomach. Approved by Resident Dulce Price DO on 04/03/2023 5:28 AM Caro Rodriges MD have personally reviewed the image(s) and agree with and/or edited the report Finalized by Caro Gilliland MD on 04/03/2023 5:[address] brain without contrast Result Date: 04/03/2023 Narrative: CLINICAL INFORMATION: Follow-up stroke, intracranial hemorrhage. TECHNIQUE: CT head without contrast. All CT scans at this facility use dose modulation, iterative reconstruction, and/or weight based dosing when appropriate to reduce radiation dose to as low as reasonably achievable. STEWART RISON: 04/02/2023. FINDINGS: Examination compromised by streak artifact from EEG leads. The osseousstructures of the calvarium and skull base are intact. Redemonstration multifocal multicompartmental intracranial hemorrhage. * Left basal ganglia intraparenchymal hemorrhage measures up to 4.0 cm, unchanged. Unchanged 3 mm rightward shift of midline structures. * Small amount of intraventricular hemorrhage, unchanged. * Acute subarachnoid hemorrhage in the right sylvian fissure is unchanged. * Subarachnoid/cortical hemorrhage in the inferior left frontal lobe appears slightly increased. Ventricles are unchanged in size, with similar mild effacement of the left lateral ventricle. Bilateral intraocular lens replacements. Air-fluid level in the lower right maxillary sinus with aerosolized secretions, unchanged. IMPRESSION: * Acute multifocal multicompartmental intracranial hemorrhage, with slight increase of left frontal cortical/subarachnoid hemorrhage, otherwise stable. Similar 3 mm rightward shift of midline structures. Approved by Resident Dulce Price DO on 04/03/2023 3:38 AM Mirlande Rodriges MD have personally reviewed the image(s) and agree with and/or edited the report Finalized by iMrlande Simmons MD on 04/03/2023 4:42 AM Baseline Routine EEG Result Date: 04/02/2023 Narrative: History This is a routine EEG in a patient with underlying encephalopathy,. Procedure This is a standard digital EEG performed in the 10-20 International system and was reviewed with multiple reformattable montages Technical Description There is well defined up to 8 Hz posterior dominantrhythm noted at times during this recording. The background is primarily composed of [id number] uv theta and delta and theta range frequencies. Semi rhythmical theta and delta range activity is intermixed with occasional beta activity noted over the frontal and central region. There is intermittent attenuation of the background frequencies with appearance of vertex waves, sleep spindlesand K complexes. Hyperventilation is deferred. Photic stimulation is not done. There is no evidenceof definite epileptiform activity during this study Clinical Interpretation This EEG in the awake and sleep states is abnormal due to the presence of mild generalized background slowing suggestive ofmild bi-hemispheric cerebral dysfunction that can be seen in post ictal states, metabolic, hypoxic or toxic encephalopathies, sedative medication use or primary neurological disorders. Darnell Buenrostro MD [facility] X-ray chest 1 view Result Date: 04/02/2023 Narrative: CHEST SINGLE AP VIEW 04/02/2023 12:28 PM CLINICAL INDICATION: coarse lung sounds, check for aspiration pneumonia COMPARISON: Chest 1 view 03/31/2023 IMPRESSION: 1. Enteric tube terminates in the right upper quadrant likely within the distal stomach or proximal duodenum. 2. No evidence ofpneumonia. 3. Cardiac silhouette is borderline enlarged. Mild pulmonary vascular congestion. No evid ence of pneumothorax or pleural effusion. Elevated right hemidiaphragm. Finalized by Ramses Cobb MD on 04/02/2023 12:[address] brain without contrast Result Date: 04/02/2023 Narrative: CT BRAIN WO CONT HISTORY: Stroke follow-up, intraparenchymal hemorrhage. COMPARISON: 04/01/2023. TECHNIQUE: CT head was performed and images obtained without the use of intravenous contrast. FINDINGS: There is interval development of linear hemorrhagic changes at the left and right temporal lobes likely subarachnoid and possibly cortical parenchymal hemorrhage. Redemonstrated predominantly left basal ganglia intraventricular hemorrhage with maximum width of 3.5 cm, increased in comparison to 04/01/2023. Increased effacement of left lateral ventricle posterior body and horn. Questionable mild increase of intraventricular blood products with ventricular dilatation. Rightward midline shift measuring approximately 3 mm, not significantly increased from prior study. 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 Right maxillary sinus air- fluid level. IMPRESSION: * Interval development of bilateral temporal lobe subarachnoid/cortical hemorrhagic changes. * Interval increase of leftbasal ganglia and temporal intraparenchymal hemorrhage with increasing effacement of the left lateral ventricle. * Stable shift of midline structures towards the right measuring approximately 3 mm. *Mild increase in the ventricular dilatation with increase in intraventricular hemorrhagic changes. At 5:20 a.m. the residential treatment staff called the patient's nurse Shen Chacko and relayed these findings to him. All CT scans at this facility use dose modulation, iterative reconstruction, and/or weight based dosing when appropriate to reduce radiation dose to as low as reasonably achievable. Approved by Resident Mariano Parmar MD on 04/02/2023 4:52 AM Caro Rodriges MD have personally reviewed the image(s) and agree with and/or edited the report Finalized by Caro Kramer MD on 04/02/2023 5:[address] brain without contrast Result Date: 04/01/2023 Narrative: CLINICAL INFORMATION: Stroke follow-up, intracranial hemorrhage. TECHNIQUE: CT head without contrast. All CT scans at this facility use dose modulation, iterative reconstruction, and/or weight based dosing when appropriate to reduce radiation dose to as low as reasonably achievable. STEWART RISON: 03/31/2023. FINDINGS: The osseous structures of the calvarium and skull base are intact. Acute intraparenchymal hemorrhage centered in the left basal ganglia measures approximately 2.9 cm greatest dimension, previously 1.5 cm. Additionally, there is increase in intraventricular hemorrhage, layering blood products both lateral ventricles. There is 3 mm leftward midline shift, new since prior exam. Trace amount of subarachnoid hemorrhage in the adjacent sylvian fissure, not definitively seen on prior exam Ventricles unchanged in size. Intracranial vascular calcifications. Bilateral intraocular lens replacements. Air-fluid level in the right maxillary sinus with aerosolized secretions. IMPRESSION: * Enlarging left basal ganglia intraparenchymal hemorrhage with worsening intraventricular extension. New, 2-3 mm rightward midline shift. * Trace amount of adjacent subarachnoid hemorrhage, not definitively seen on prior exam. Critical results were directly discussed with Dr. De Anda by at 6:50 AM on 04/01/2023. Approved by Resident Dulce Price DO on 04/01/2023 6:41 AM Tirso Rodriges MD have personally reviewed the image(s) and agree with and/or edited the report Finalized by Tirso Tate MD on 04/01/2023 6:54 AM Diagnosis Problem list: Patient Active Problem List Diagnosis 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[facility]) Assessment/Plan Impression: #. Thrombocytopenia - Platelet 74,000 - 91,000 on admission. - 138,000 in 2020. #. Acute left ophthalmic ICH with IVH #. AAA s/p repair Plan: Workup pending for thrombocytopenia. LDH, Haptoglobin, reticulocyte, leonel, fibrinogen ordered as well as US abdomen to rule out splenomegaly. Differentials include consumption from ICH, microangiopathy due to AAA, or more likely chronic thrombocytopenia. ICH likely due to HTN crisis, less likely due to thrombocytopenia. Platelet function test abnormality could be more likely due to motrin use outpatient, though uncertain when last usage occurred due to AMS. Will continue to follow work up. Code Status: Modified Code Status [place] Further medical management of comorbid conditions per primary team and consulting services, appreciate assistance The patient was seen and examined and all plans and orders were agreed upon with the attending physician on service today, Dr. Meraz Thank you for the consultation. Chen Lloyd, CHILD WELFARE ASSISTANT-STUDY LEAD [facility] [address] [place] [address] [employer] is my preferred mode of contact. For after hours (evening, weekends, holidays) Hematology Oncology needs, please call the stone unloader service [phone]. Please ask for the MD stone unloader. April 09, 2023, 3:34 PM I, Jack Meraz MD, personally performed the face to face diagnostic evaluation on this patient. I have reviewed and edited the EVERETT's History, Exam, and MDM as needed and agree with the assessment and plan as written. 78-year-old female with a history of AAA s/p endograft repair presented in this admission with right-sided weakness. Patient had an episode of hypertensive emergency 175/[address] brain without contrast showed an enlarging left basal ganglia intraparenchymal hemorrhage with worsening intraventricular extension. New, 2-3 mm rightward midline shift.Trace amount of adjacent subarachnoid hemorrhage.CTA chest shows multifocal pneumonia. She was noted to be thrombocytopenic with a platelet gaudencio of 58 k/cmm which led to a hematology consult. Platelet counts have spontaneously improved to 74 k/cmm after correction of her hypertensive urgency. The patient herself does not offer any meaningful medical history. I did speak to the nurseat the bedside. No other sources of mucocutaneous bleeding such as epistaxis, hematuria, hematochezia or melena have been reported. In reviewing the patient's home medication list she was on aspirin and motrin. The patient has been thrombocytopenic in 2019. The patient is also noted to have a leukocytosis from pneumonia. A/P: Acute on chronic thrombocytopenia - the acute thrombocytopenia secondary to microangiopathy from hypertensive emergency, sepsis from pneumonia. 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 Her intracranial hemorrhages are secondary to hypertensive emergency and not the thrombocytopenia. PFA-100 geoffrey/epi prolongation abnormality is secondary to use of aspirin and motrin as an outpatient. It could also be secondary to thrombocytopenia. Creatinine is normal - not aHUS. T Bili is normal - no microangiopathic hemolysis. ECHO EF 60-65% with no metal valves noted. INR,PTT normal - not DIC. Was on sq heparin however platelet counts have spontaneously improved with blood pressure correction which goes against HIT. PFA-100 would prolonged geoffrey/epi but normal geoffrey/adp - from medication effect or thrombocytopenia. PLAN: - Check fibrinogen to complete DIC workup. - Check MELE,LDH, haptoglobin, reticulocyte count and peripheral smear to assess for a microangiopathic process and schistocytes. - Treatment of acute thrombocytopenia would involve treatment of underlying causative factors such as hypertensive emergency and sepsis from pneumonia. - Her platelets have spontaneously improved to 74 k/cmm. No platelet transfusions would be indicated unless counts dropped to < 70 k/cmm in light of her recent intracranial hemorrhage & altered PFA-100. - We have discontinued subQ heparin and switched her to arixtra 2.5 mg subQ daily for VTE prophylaxis. Her creatinine level is normal. - Given her chronic thrombocytopenia/chronic itp, a trial of dexamethasone and IVIG should be undertaken if her counts dropped to < 50 k/cmm in light of her recent intracranial hemorrhage. - As an outpatient after holding her aspirin and motrin for 2 weeks,a VWD testing should be completed for prolonged geoffrey/epi since she could have consumption of her von Willebrand's multimers from her AAA/endograft repair with aneurysmal dilation. - CT brain w/o cont completed on 04/09/2023 shows a minimally changed left thalamic parenchymal hemorrhage with intraventricular extension. Slightly decreasing subarachnoid hemorrhage. In the event that her intracranial hemorrhage were to get worse on her serial scans, 2U of platelet transfusions co uld be given for the prolonged PFA-100 from recent antiplatelet agent use. Jack Meraz MD. * Marysol Umana MD - 04/07/2023 4:16 PM ESTAssociated Order(s): IP CONSULT TO GENERAL SURGERY Images from the original note were not included. Acute Care Surgery/ACS CONSULTATION NOTE Chief Complaint: Stroke History of Present Illness: Ellen Chan is a 78 y.o. female with a past medical history of GERD, thalamic stroke and resulting dysphagia who general surgery was consulted for PEG tube. At time of evaluation, patient's niece is bedside. She is not medical power of environmental attorney, but has been present throughout patient's care. Patient states that she believes PEG tube would be consistent with her aunts goals of care. Patient is largely unresponsive to questions, she is alert but not answering appropriately. Per chart review patient has been receiving tube feeds through [facility] without issue. Past surgical history of minimally invasive cholecystectomy. Not currently on anticoagulation. Past Medical History: Diagnosis Date AAA (abdominal aortic aneurysm) ([facility]) was surgically taken care of 09/2018 GERD (gastroesophageal reflux disease) Hypertension Upper respiratory infection 05/2019 Visual impairment glasses Past Surgical History: Procedure Laterality Date BREAST BIOPSY BREAST SURGERY 1989 BREAST BX CARDIAC SURGERY STENT 2018 CARDIAC SURGERY LEFT VENTRICLE STENT 2018 DILATION AND CURETTAGE, DIAGNOSTIC / THERAPEUTIC 1987 HYSTERECTOMY KNEE ARTHROSCOPY Left KNEE ARTHROSCOPY Left REMOVE METAL 2014 LAPAROSCOPIC CHOLECYSTECTOMY N/A 05/26/2019 Performed by Caro Pollard DO at [facility] ORIF WRIST FRACTURE Right Pins Allergies Allergen Reactions Ciprofloxacin Headache Alendronate Bee Venom Protein (Honey Bee) feels like my eyes are spinning around Icveboys-Xniixxoburf-Etnfoofaq Oxycodone Headache I just don't want to take it Current Facility-Administered Medications: acetaminophen (TYLENOL) 650 mg/20.3 mL solution 650 mg, 650 mg, nasogastric, Q6H PRN, Christina Freitas, amLODIPine (NORVASC) tablet 10 mg, 10 mg, nasogastric, Daily, Christina Mendozaor, DO, 10 mg at 04/07/23 0815 bisacodyL (DULCOLAX) suppository 10 mg, 10 mg, rectal, Q3 Days, Christina Freitas, DO, 10 mg at1 1045 calcium gluconate IVPB 1000 mg/50 mL (20 mg/mL premix), 1,000 mg, intravenous, PRN OR calcium gluconate IVPB 2000 mg/100 mL (20 mg/mL premix), 2,000 mg, intravenous, PRN OR calcium gluconate 3,000 mg in sodium chloride 0.9 % 100 mL IVPB, 3,000 mg, intravenous, PRN, Ry De Anda MD carvediloL (COREG) tablet 12.5 mg, 12.5 mg, nasogastric, BID, Jordan Hassan MD, 12.5 mg at 04/07/23 0815 dextrose (GLUTOSE) 40 % gel 15 g, 15 g, oral, PRN, Ry De Anda MD dextrose 5 % (D5W) infusion, 100 mL/hr, intravenous, Continuous PRN, Ry De Anda MD dextrose 50 % in water (D50W) 50% solution 25 mL, 25 mL, intravenous, PRN, Ry De Anda MD glucagon HCL injection 1 mg, 1 mg, intramuscular, PRN, Ry De Anda MD heparin (porcine) injection 5,000 Units, 5,000 Units, subcutaneous, Q8H DIO, Jordan Hassan MD, 5,000Units at 04/07/23 1358 hydrALAZINE (APRESOLINE) injection 10 mg, 10 mg, intravenous, Q4H PRN, Christina Freitas DO, 10 mg at 04/04/23 0604 ipratropium-albuteroL (DUONEB) 0.5 mg-3 mg(2.5 mg base)/3 mL nebulizer solution 3 mL, 3 mL, nebulization, Q4H PRN, Mohan De Anda MD, 3 mL at 04/06/23 1459 ipratropium-albuteroL (DUONEB) 0.5 mg-3 mg(2.5 mg base)/3 mL nebulizer solution 3 mL, 3 mL, nebulization, Q6H, Christina Leah Swor, DO, 3 mL at 04/07/23 1411 labetaloL (NORMODYNE,TRANDATE) injection 10 mg, 10 mg, intravenous, Q5 Min PRN, Christina Leah Swor, DO, 10 mg at 04/06/23 0504 lisinopriL (PRINIVIL,ZESTRIL) tablet 20 mg, 20 mg, nasogastric, Daily, Christina Leah Swor, DO, 20 mg at 04/07/23 0815 magnesium hydroxide (MILK OF MAGNESIA) suspension 30 mL, 30 mL, nasogastric, Q3 Days, Christina Leah Swor, DO, 30 mL at 04/04/23 2104 magnesium sulfate IVPB 2000 mg/50 mL in iso-osmotic water (40 mg/mL premix), 2,000 mg, intravenous,PRN OR magnesium sulfate IVPB 4000 mg/100 mL in iso- osmotic water (40 mg/mL premix), 4,000 mg, intravenous, PRN, Ry De Anda MD melatonin (CIRCADIN) tablet 6 mg, 6 mg, oral, Nightly, Jordan Hassan MD, 6 mg at 04/05/23 2132 omeprazole-sodium bicarbonate (KONVOMEP) 2-84 mg/mL oral suspension 40 mg, 40 mg, nasogastric, Daily, Christina Leah Swor, DO, 40 mg at 04/07/23 0955 ondansetron (PF) (ZOFRAN) injection 4 mg, 4 mg, intravenous, Q6H PRN, Christina Leah Swor, DO, 4 mg at 04/06/23 2137 [COMPLETED] piperacillin-tazobactam (ZOSYN) 4.5 g in sodium chloride 0.9 % 50 mL IVPB-MBP, 4.5 g, intravenous, Once, Stopped at 04/06/23 1509 FOLLOWED BY piperacillin-tazobactam (ZOSYN) 3.375 g in sodium chloride 0.9 % 50 mL IVPB-MBP, 3.375 g, intravenous, Q8H, Artemio Ray MD, Stoppedat 04/07/23 1319 potassium chloride (K-TAB,KLOR-CON) CR tablet 20-50 mEq, 20-50 mEq, oral, PRN OR potassium chloride (KAYCIEL) 20 mEq/15 mL solution 20-50 mEq, 20-50 mEq, oral, PRN, Ry De Anda MD, 30 mEq at 04/06/23 0541 potassium chloride IVPB 10 mEq/50 mL in water (0.2 mEq/mL premix), 10 mEq, intravenous, PRN OR potassium chloride IVPB 10 mEq/100 mL in water (0.1 mEq/mL premix), 10 mEq, intravenous, PRN, Ry De Anda MD, Stopped at 04/02/23 1058 QUEtiapine (SEROquel) tablet 12.5 mg, 12.5 mg, oral, Nightly PRN, Zay Chapa MD, MD, 12.5 mg at 04/05/23 2132 sennosides-docusate sodium (SENOKOT-S) 8.6-50 mg 2 tablet, 2 tablet, nasogastric, BID, Christina Freitas DO, 2 tablet at 04/07/23 0815 sodium phosphate 20 mmol in sodium chloride 0.9 % 250 mL IVPB, 20 mmol, intravenous, PRN OR sodium phosphate 20 mmol in sodium chloride 0.9 % 100 mL IVPB, 20 mmol, intravenous, PRN OR sod phos di, mono-K phos mono (K-PHOS NEUTRAL) 250 mg tablet 2 tablet, 2 tablet, oral, PRN, Ry De Anda MD sodium chloride 0.9 % infusion, 10 mL/hr, intravenous, Continuous PRN, Ry De Anda MD sodium chloride 0.9 % infusion, 10 mL/hr, intravenous, Continuous PRN, Ry De Anda MD sodium chloride 0.9 % infusion, 10 mL/hr, intravenous, Continuous PRN, Ry De Anda MD, Stopped at 04/02/23 0805 Social History Socioeconomic History Marital status: Spouse name: Not on file Number of children: Not on file Years of education: Not on file Highest education level: Not on file Occupational History Not on file Tobacco Use Smoking status: Former Smokeless tobacco: Never Tobacco comments: QUIT IN JUNE 2019 Vaping Use Vaping Use: Never used Substance and Sexual Activity Alcohol use: Yes Comment: SOMETIMES Drug use: Never Sexual activity: Defer Other Topics Concern Not on file Social History Narrative Not on file Social Determinants of Health Financial Resource Strain: Not on file Food Insecurity: Not on file Transportation Needs: Not on file Physical Activity: Not on file Stress: Not on file Social Connections: Not on file Interpersonal Safety: Not on file History reviewed. No pertinent family history. Physical Exam Constitutional: General: She is not in acute distress. Appearance: She is obese. She is not ill-appearing. HENT: Head: Normocephalic and atraumatic. Mouth/Throat: Mouth: Mucous membranes are moist. Pharynx: Oropharynx is clear. No oropharyngeal exudate. Eyes: General: No scleral icterus. Conjunctiva/sclera: Conjunctivae normal. Pupils: Pupils are equal, round, and reactive to light. Cardiovascular: Rate and Rhythm: Normal rate and regular rhythm. Pulses: Normal pulses. Pulmonary: Effort: Pulmonary effort is normal. No respiratory distress. Abdominal: General: Abdomen is flat. There is no distension. Palpations: Abdomen is soft. Tenderness: There is no abdominal tenderness. There is no guarding or rebound. Hernia: No hernia is present. Musculoskeletal: General: Normal range of motion. Cervical back: Normal range of motion. Skin: General: Skin is warm and dry. Coloration: Skin is not jaundiced. Findings: No rash. Neurological: Mental Status: She is alert. She is disoriented. Comments: Not responding appropriately. Vital Signs: Blood pressure 110/66, pulse 84, temperature 36.6 C (97.9 F), resp. rate 17, height 162.6 cm (5' 4 ), weight 66.5 kg (146 lb 9.7 oz), SpO2 99%. Respiratory Source: O2 Device: Nasal cannula Admission Weight: Weight: 68.5 kg (151 lb 0.2 oz) Labs: Lab Results Component Value Date WBC 14.8 (H) 04/07/2023 HGB 12.7 04/07/2023 HCT 38.6 04/07/2023 MCV 87 04/07/2023 PLT 58 (L) 04/07/2023 Lab Results Component Value Date GLU 111 (H) 04/07/2023 CALCIUM 9.2 04/07/2023 K 4.0 04/07/2023 CO2 30 04/07/2023 CL 116 (H) 04/07/2023 BUN 53 (H) 04/07/2023 CREATININE 1.11 (H) 04/07/2023 No results found for: AMYLASE Lab Results Component Value Date LIPASE 10 (L) 05/19/2019 Lab Results Component Value Date ALT 56 (H) 04/07/2023 AST 39 04/07/2023 ALKPHOS 104 04/07/2023 Lab Results Component Value Date INR 1.0 04/01/2023 PROTIME 12.2 04/01/2023 Imaging: X-ray chest 1 view Clinical History: Aspiration pneumonia. Portable Upright chest: 04/07/2023 Comparison: 04/03/2023 Findings: A single portable view of the chest was obtained. The enteric tube extends the upper abdomen. Is aortic tortuosity is evident with its with prominence of the aortic arch similar to prior studies. Descending aortic stents are evident. There is hazy opacity throughout the mid lungs and basilar regions. No pneumothorax or pleural effusion is present. IMPRESSION: Bilateral infiltrates compatible with edema and/or pneumonia. Aortic tortuosity stable compared to recent radiographs. Finalized by Rajan Mtz MD on 04/07/2023 5:35 AM Assessment: Ellen Chan is a 78 y.o.female with dysphagia secondary to thalamic stroke. General surgery consulted for PEG tube placement. Plan: Will discuss PEG scheduling following resolution of multifocal pneumonia, electrolyte abnormalities, JOHN. Will have repeat discussion with patient's medical power of environmental attorney when present. Continue tube feeds in interim Marysol Umana MD General Surgery Resident, PGY-3 Acute Care Surgery/ACS 6a-6p pager #[phone] 6p-6a pager #[phone] Associated attestation - Estevan Duff DO - 04/07/2023 7:25 PM EST General Surgery Attending Attestation: I saw the patient. I participated and was physically present during the critical/felix portions of the service. I was directly involved in the management and treatment plan of the patient. I reviewed the resident's note. Additional Notes/Findings: Will discuss further with neuro critical care team when they believe patient is stable to proceed with EGD and PEG tube placement. At the very earliest would be 04/09/2022 pending OR availability. Willdiscuss with patient's medical power of environmental attorney regarding procedure and consent. Estevan Duff D.O. * Amita YooCLAIR [place] - 04/02/2023 2:26 PM ESTAssociated Order(s): IP CONSULT TO NUTRITION SERVICES; IP CONSULT TO NUTRITION SERVICES NUTRITION ADULT INITIAL EVALUATION NUTRITION ASSESSMENT: Reason to be seen: Consult for TF management Patient History: Admit Diagnosis: Patient Active Problem List Diagnosis 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CMS-HCC) Past Medical History: Past Medical History: Diagnosis Date AAA (abdominal aortic aneurysm) (CMS-HCC) was surgically taken care of 09/2018 GERD (gastroesophageal reflux disease) Hypertension Upper respiratory infection 05/2019 Visual impairment glasses Past Surgical History: Past Surgical History: Procedure Laterality Date BREAST BIOPSY BREAST SURGERY 1989 BREAST BX CARDIAC SURGERY STENT 2018 CARDIAC SURGERY LEFT VENTRICLE STENT 2018 DILATION AND CURETTAGE, DIAGNOSTIC / THERAPEUTIC 1986 HYSTERECTOMY KNEE ARTHROSCOPY Left KNEE ARTHROSCOPY Left REMOVE METAL 2014 LAPAROSCOPIC CHOLECYSTECTOMY N/A 05/26/2019 Performed by Caro Pollard DO at [facility] WRIST FRACTURE Right Pins Social/ Cognitive/ Economic: Disoriented Brief Clinical Summary: Patient initially presented to OSH with right sided weakness. Found to havesmall left thalamic ICH and transferred to [facility] for further care.PMHx includes HTN, GERD, AAA. Biochemical Data, Medical Tests, and Procedures: 04/01 CT brain: Enlarging left basal ganglia intraparenchymal hemorrhage with worsening intraventricular extension. 04/01 Soft and Bite Sized and no liquids. However, per MD hold off on oral diet d/t mentation. VFSSon hold. Labs: Results from last 3 days Lab Units 04/02/23 1302 04/02/23 0506 04/01/23 0645 SODIUM mmol/L -- 145 141 POTASSIUM mmol/L 3.7 3.5 3.3* CHLORIDE mmol/L -- 105 105 CO2 mmol/L -- 27 27 BUN mg/dL -- 19 12 CREATININE mg/dL -- 0.72 0.63 CALCIUM mg/dL -- 9.6 9.6 ALBUMIN g/dL -- 4.0 3.9 ALK PHOS U/L -- 71 72 ALT U/L -- 9 7 AST U/L -- 15 13 Results from last 7 days Lab Units 04/02/23 1302 04/02/23 0506 04/01/23 0645 04/01/23 0411 BEDSIDE GLUCOSE mg/dL 124* -- -- 101* GLUCOSE mg/dL -- 123* 112* -- Results from last 3 days Lab Units 04/02/23 0354 04/01/23 0645 WBC X10E9/L 12.7* 6.9 HEMOGLOBIN g/dL 13.1 13.1 HEMATOCRIT % 39.1 38.1 PLATELETS X10E9/L 114* 91* MCV fL 86 85 Results from last 3 days Lab Units 04/02/23 0506 04/01/23 0645 TOTAL BILIRUBIN mg/dL 0.6 0.5 Lab Results Component Value Date HGBA1C 5.5 04/01/2023 Lab Results Component Value Date CHOL 243 (H) 04/01/2023 Lab Results Component Value Date CHDL 2.6 04/01/2023 Lab Results Component Value Date HDL 93 04/01/2023 Lab Results Component Value Date LDLCALC 130 (H) 04/01/2023 Lab Results Component Value Date TRIG 99 04/01/2023 Lab Results Component Value Date VERYLOWLIP 20 04/01/2023 Comments (labs): Reviewed Medications/ Parenteral: Pepcid, zofran, potassium, NaCl at 50ml/hr Medications Prior to Admission Medication Sig Dispense Refill Last Dose amLODIPine (NORVASC) 5 mg tablet Take 1 tablet (5 mg total) by mouth in the morning. ASPIRIN LOW DOSE ORAL Take 81 mg by mouth daily. hydroCHLOROthiazide (HYDRODIURIL) 25 mg tablet Take 1 tablet (25 mg total) by mouth daily. metoprolol tartrate (LOPRESSOR) 25 mg tablet Take 1 tablet (25 mg total) by mouth in the morning and 1 tablet (25 mg total) before bedtime. pantoprazole (PROTONIX) 40 mg EC tablet Take 1 tablet (40 mg total) by mouth every morning before breakfast. potassium chloride (K-TAB,KLOR-CON) 10 MEQ CR tablet Take 2 tablets (20 mEq total) by mouth in the morning and 2 tablets (20 mEq total) before bedtime. docusate sodium (DULCOLAX STOOL SOFTENER, DSS,) 100 mg capsule daily. (Patient not taking: Reportedon 04/02/2023) Unknown ibuprofen (ADVIL,MOTRIN) 800 mg tablet Take 0.5 tablets (400 mg total) by mouth every 6 (six) hoursas needed for pain. (Patient not taking: Reported on 04/02/2023) 20 tablet 0 Unknown niacin, inositol niacinate, 500 mg tablet niacin (inositol niacinate) 500 mg tablet Take by oral route. (Patient not taking: Reported on 04/02/2023) Unknown potassium chloride (KLOR-CON) 20 mEq packet Klor-Con 20 mEq oral packet Take 1 packet 4 times a day by oral route. (Patient not taking: Reported on 04/02/2023) Unknown Current Facility-Administered Medications Medication Dose Route Frequency Provider Last Rate Last Admin acetaminophen (OFIRMEV) IVPB Premix 1,000 mg 1,000 mg intravenous Q6H Jordan Hassan MD Stopped at 04/02/23 0836 amLODIPine (NORVASC) tablet 5 mg 5 mg nasogastric Daily Jordan Hassan MD calcium gluconate IVPB 1000 mg/50 mL (20 mg/mL premix) 1,000 mg intravenous PRN Ry De Anda MD Or calcium gluconate IVPB 2000 mg/100 mL (20 mg/mL premix) 2,000 mg intravenous PRN Ry De Anda MD Or calcium gluconate 3,000 mg in sodium chloride 0.9 % 100 mL IVPB 3,000 mg intravenous PRN Ry De Anda MD dextrose (GLUTOSE) 40 % gel 15 g 15 g oral PRN Ry De Anda MD dextrose 5 % (D5W) infusion 100 mL/hr intravenous Continuous PRN Ry De Anda MD dextrose 50 % in water (D50W) 50% solution 25 mL 25 mL intravenous PRN Ry De Anda MD famotidine (PF) (PEPCID) injection 20 mg 20 mg intravenous Q24H [facility] Christina Freitas DO 20 mgat 04/01/23 1720 glucagon HCL injection 1 mg 1 mg intramuscular PRN Ry De Anda MD hydrALAZINE (APRESOLINE) injection 10 mg 10 mg intravenous Q4H PRN Christina Leah Swor, DO labetaloL (NORMODYNE,TRANDATE) injection 10 mg 10 mg intravenous Q5 Min PRN Christina Leah Swor, DO 10 mg at 04/01/23 0616 magnesium sulfate IVPB 2000 mg/50 mL in iso-osmotic water (40 mg/mL premix) 2,000 mg intravenous PRN Ry De Anda MD Or magnesium sulfate IVPB 4000 mg/100 mL in iso-osmotic water (40 mg/mL premix) 4,000 mg intravenous PRN Ry De Anda MD niCARdipine (CARDENE) infusion 25 mg/50 mL in sodium chloride 0.9% (0.5 mg/mL cmpd premix) 5-15 mg/hr intravenous Continuous Christina Leah Swor, DO 15 mL/hr at 04/02/23 1306 7.5 mg/hr at 04/02/23 1306 ondansetron (PF) (ZOFRAN) injection 4 mg 4 mg intravenous Q6H PRN Christina Leah Swor, DO 4 mg at106/03/22 0342 potassium chloride (K-TAB,KLOR-CON) CR tablet 20-50 mEq 20-50 mEq oral PRN Ry De Anda MD Or potassium chloride (KAYCIEL) 20 mEq/15 mL solution 20-50 mEq 20-50 mEq oral PRN Ry De Anda MD potassium chloride IVPB 10 mEq/50 mL in water (0.2 mEq/mL premix) 10 mEq intravenous PRN Ry De Anda MD Or potassium chloride IVPB 10 mEq/100 mL in water (0.1 mEq/mL premix) 10 mEq intravenous PRN Ry De Anda MD 100 mL/hr at 04/02/23 0958 10 mEq at 04/02/23 0958 sennosides-docusate sodium (SENOKOT-S) 8.6-50 mg 1 tablet 1 tablet oral Q12H PRN Ry De Anda MD sodium phosphate 20 mmol in sodium chloride 0.9 % 250 mL IVPB 20 mmol intravenous PRN Ry De Anda MD Or sodium phosphate 20 mmol in sodium chloride 0.9 % 100 mL IVPB 20 mmol intravenous PRN Ry De Anda MD Or sod phos di, mono-K phos mono (K-PHOS NEUTRAL) 250 mg tablet 2 tablet 2 tablet oral PRN Ry De Anda MD sodium chloride 0.9 % infusion 10 mL/hr intravenous Continuous PRN Ry De Anda MD sodium chloride 0.9 % infusion 10 mL/hr intravenous Continuous PRN Ry De Anda MD sodium chloride 0.9 % infusion 10 mL/hr intravenous Continuous PRN Ry De Anda MD 10 mL/hr at 04/02/23 06 Rate Verify at 04/02/23630 sodium chloride 0.9 % infusion 50 mL/hr intravenous Continuous Jordan Hassan MD sodium chloride 0.9 % infusion 50 mL/hr intravenous Continuous Jordan Hassan MD 50 mL/hr at 807 50 mL/hr at 04/02/23 0807 Nutrition Focused Physical Findings +NGT, Last BM unknown Skin (per nursing flow sheets): Skin Color: Pale (04/02/23799) Skin Temp: Warm; Dry (04/02/23799) Wound (per nursing flow sheets): --- Gastrointestinal (per nursing flow sheets): Abdomen Assessment: Soft; Nondistended (04/02/23799) RUQ Bowel Sounds: Active (04/02/23799) LUQ Bowel Sounds: Active (04/02/23799) RLQ Bowel Sounds: Active (04/02/23799) LLQ Bowel Sounds: Active (04/02/23799) GI Symptoms: None (04/02/23799) Edema (per nursing flow sheets): --- Intake/ Output Last 24 hrs: Intake/Output Summary (Last 24 hours) at 04/02/2023 1426 Last data filed at 04/02/2023 0631 Gross per 24 hour Intake 363.15 ml Output 50 ml Net 313.15 ml Food/Nutrition Related History: Diet History: Unable to obtain at this time. Patient disoriented. Allergies: Allergies Allergen Reactions Ciprofloxacin Headache Alendronate Bee Venom Protein (Honey Bee) feels like my eyes are spinning around Lqgrzizp-Fwerdmqbanp-Bgwxnwjif Oxycodone Headache I just don't want to take it Diet/ Nutrition Order Review: Dietary Orders (From admission, onward) Start Ordered 04/02/23 0744 Adult diet NPO; Except medications Diet effective now Comments: Meds in applesauce Question Answer Comment Diet Type: NPO NPO Except: Except medications 04/02/23 0744 Diet Intakes: NPO (04/01) Anthropometrics: Ht Readings from Last 1 Encounters: 04/01/23 162.6 cm (5' 4 ) Wt Readings from Last 20 Encounters: 04/01/23 67.1 kg (147 lb 14.9 oz) 06/03/19 73.9 kg (163 lb) 05/26/19 73.9 kg (163 lb) 05/18/19 73.9 kg (163 lb) 05/11/19 73.9 kg (163 lb) Last 3 Weight Readings 04/01/23 0405 04/01/23 2200 Weight: 68.5 kg (151 lb 0.2 oz) 67.1 kg (147 lb 14.9 oz) Admit Weight: 67.1kg (04/01; bed scale) Almond Body Weight: 54.5kg Percent Almond Body Weight: 123 Body Mass Index: Body mass index is 25.39 kg/m . BMI Category: Pre-obese (25.00- 29.99) Comparative Standards: Estimated Energy Needs: 3599-2476 kcals daily. Method and weight used: 25-30 kcal/kg IBW (54.5kg) Estimated Protein Needs: 65-110 grams daily. Method and weight used: 1.2-2g protein/kg IBW Estimated Fluid Needs: 5611-2018 ml daily. Method weight used: 1ml/kcal Comments: General needs Malnutrition Status: Malnutrition Present: ABDULLAHI NUTRITION DIAGNOSIS: Intake Diagnosis: Inadequate protein-energy intake (NI 5.3) related to medical condition as evidenced by NPO status and need for nutrition support. NUTRITION INTERVENTIONS: Enteral Nutrition: Start tube feeds. Start Osmolite 1.5 at 15ml/hr and increase by 10ml every 8 hours, until goal rate of 45ml/hr is reached. This will provide 1080ml formula, 1620kcals, 68gm protein, 823ml free water, and 100% RDI's for vitamins/minerals. Coordination of Care: Spoke with ELIZABETH Fajardo RECOMMENDATIONS: Monitor labs and replace PRN. If/when IV fluids discontinued, recommend starting free water flushes: 200ml 4x/day. GOAL(S): Meet estimated calorie and protein needs. NUTRITION MONITORING AND EVALUATION: TF tolerance, weight trend, labs, POC and overall status. Amita Kovacs RD, CLAIR Clinical Dietitian Direct Line: * Christina Freitas DO - 04/01/2023 10:30 AM ESTAssociated Order(s): IP CONSULT TO STEAM GENERATING [employer]OWER[employer]ANT MECH[employer]IC Images from the original note were not included. [facility] Neurology Neurocritical Care Initial Consult Note Brief Summary: Ellen hCan a 78 y.o. female who is admitted to the Neuro ICU with high risk of neurologic failure secondary to acute L thalamic ICH with IVH. Histories: HPI, PMH, PSH, FS, SH, Medications and Allergies reviewed in EMR, confirmed with family present at bedside and agree with documentation per H&P by Dr. Krueger. Unable to confirm with patient given neurological failure Interval History: Evolution of ICH on repeat CT head with worsening IVH. Subjective: No complaints Objective: Exam: Temp: [36.6 C (97.9 F)-36.7 C (98.1 F)] 36.6 C (97.9 F) Pulse: [72-97] 76 Resp: [13-26] 16 BP: (125-175)/(77-110) 133/77 SpO2: [91 %-98 %] 93 % O2 Device: None (Room air) Intake/Output Summary (Last 24 hours) at 04/01/2023 1030 Last data filed at 04/01/2023 0758 Gross per 24 hour Intake 90 ml Output 900 ml Net -810 ml General: Female, appears stated age, no distress. HEENT: Atraumatic, normocephalic, sclera non-iceteric, not injected, no conjunctival pallor, trachea midline, moist pink mucous membranes, neck supple Neuro: Lethargic, requires vigorous noxious stim to arouse. Regard examiner. Oriented to self and hospital but not year. Mimics commands to show thumb.Pupils are equal and reactive. Left gaze preference but can cross midline. Moves left lori-body spontaneously and against gravity. Localizes to noxious stim in RUE. Cards: RRR, no M/R/G Pulm: clear throughout Abd: normoactive BS and soft Ext: no tenderness or edema over bony prominences or joints Skin: warm, pink, no rashes or lesions Relevant Results: I have personally reviewed new lab and imaging results as well as any available finalized reports. I agree with the findings as reported Diagnoses/Assessment/Plan: Acute L Thalamic ICH with IVH as evidenced by clinical assessment and imaging data, currently stable neurologic exam with worsening of ICH and IVH on serial CT Head. Will recommend the following: - SBP goal < 140mmHg - Neurosurgery consulted, no EVD for now. Plan for repeat CT Head tomorrow morning at 4am - Serial neurochecks Q1H - Normal Na goal 135-145 - Holding anti-platelets and anticoagulation Acute respiratory insufficiency in setting of altered mental status, as evidenced by clinical assessment currently stable and maintaining airway. Will recommend the following: - Monitor SpO2 with goal of > 92% - Monitor airway closely. Will discuss intubation and code status with POA. Essential Hypertension as evidenced by clinical history, currently improving on low dose nicardipine drip. Will recommend the following: - SBP goal < 140mmHg - Resume home amlodipine to help wean off nicardipine drip Acute dysphagia as evidenced by clinical assessment by speech therapy, currently unchanged. Will recommend the following: Plan for level 6 dysphagia diet and no liquids. Hold off on diet and video swallow given fluctuating mental status and more somnolent on afternoon assessment. Start IVF NS at 75cc/hr Thrombocytopenia as evidenced by laboratory data, currently stable with no active signs of bleeding. Will recommend the following: Continue to monitor. Prior plt count in 2019 was 138. History of AAA s/p EVAR and TEVAR as evidenced by clinical history, currently stable. Gen CCM: - Access/Indwelling catheters: Larios day external, PIVs - Prophylaxis: DVT SCDs; GI bowel regimen and home PPI; - Activity: advance as tolerated Goals of Care: Full POA: Grandson Day 1 Family at bedside and updated on plan Dispo: ICU I have spent 35 mins of critical care time including direct patient care at the bedside, review of relevant labs/results, discussion with family in a patient with neurological failure and coordination of care. This time is exclusive on any procedures performed. * Dulce Agarwal MD - 04/01/2023 6:57 AM ESTAssociated Order(s): IP CONSULT TO NEUROSURGERY Images from the original note were not included. [facility] [address] [place] [address], [address] [place] [address] * NEUROSURGERY CONSULT NOTE DATE:04/01/2023 PATIENT'S NAME: Ellen Chan PATIENT'S PATIENT'S : 1945 NEUROSURGERY ATTENDING: Dr. Agarwal REASON FOR CONSULT Stroke HISTORY OF PRESENT ILLNESS Ellen Chan is a 78 y.o. White or female who presented to OSH for right sided weakness. She was found to have small left thalamic ICH. She was not on any anticoagulation or antiplateletat time of admission. On exam patient is drowsy but arousable. She is oriented x 4 but poor historian of what brought herto the hospital. She denies any headache. She has some volitional movement to RUE but only WD to RLE. ALLERGIES Allergies Allergen Reactions Ciprofloxacin Headache Alendronate Bee Venom Protein (Honey Bee) feels like my eyes are spinning around Twp[place]ljk-Sdrurdfwdun-Vomincbwq Oxycodone Headache I just don't want to take it MEDICATIONS Current Facility-Administered Medications: calcium gluconate IVPB 1000 mg/50 mL (20 mg/mL premix), 1,000 mg, intravenous, PRN OR calcium gluconate IVPB 2000 mg/100 mL (20 mg/mL premix), 2,000 mg, intravenous, PRN OR calcium gluconate 3,000 mg in sodium chloride 0.9 % 100 mL IVPB, 3,000 mg, intravenous, PRN, Ry De Anda MD dextrose (GLUTOSE) 40 % gel 15 g, 15 g, oral, PRN, Ry De Anda MD dextrose 5 % (D5W) infusion, 100 mL/hr, intravenous, Continuous PRN, Ry De Anda MD dextrose 50 % in water (D50W) 50% solution 25 mL, 25 mL, intravenous, PRN, Ry De Anda MD glucagon HCL injection 1 mg, 1 mg, intramuscular, PRN, Ry De Anda MD hydrALAZINE (APRESOLINE) injection 10 mg, 10 mg, intravenous, Q4H PRN, Ry De Anda MD labetaloL (NORMODYNE,TRANDATE) injection 10 mg, 10 mg, intravenous, Q5 Min PRN, Ry De Anda MD, 10 mg at 04/01/23 0616 magnesium sulfate IVPB 2000 mg/50 mL in iso-osmotic water (40 mg/mL premix), 2,000 mg, intravenous,PRN OR magnesium sulfate IVPB 4000 mg/100 mL in iso- osmotic water (40 mg/mL premix), 4,000 mg, intravenous, PRN, Ry De Anda MD niCARdipine (CARDENE) infusion 25 mg/50 mL in sodium chloride 0.9% (0.5 mg/mL cmpd premix), 5-15 mg/hr, intravenous, Continuous, Ry De Anda MD, Held at 04/01/23 0415 potassium chloride (K-TAB,KLOR-CON) CR tablet 20-50 mEq, 20-50 mEq, oral, PRN OR potassium chloride (KAYCIEL) 20 mEq/15 mL solution 20-50 mEq, 20-50 mEq, oral, PRN, Ry De Anda MD potassium chloride IVPB 10 mEq/50 mL in water (0.2 mEq/mL premix), 10 mEq, intravenous, PRN OR potassium chloride IVPB 10 mEq/100 mL in water (0.1 mEq/mL premix), 10 mEq, intravenous, PRN, Ry De Anda MD sennosides-docusate sodium (SENOKOT-S) 8.6-50 mg 1 tablet, 1 tablet, oral, Q12H PRN, Ry DeA nda MD sodium phosphate 20 mmol in sodium chloride 0.9 % 250 mL IVPB, 20 mmol, intravenous, PRN OR sodium phosphate 20 mmol in sodium chloride 0.9 % 100 mL IVPB, 20 mmol, intravenous, PRN OR sod phos di, mono-K phos mono (K-PHOS NEUTRAL) 250 mg tablet 2 tablet, 2 tablet, oral, PRN, Ry De Anda MD sodium chloride 0.9 % infusion, 10 mL/hr, intravenous, Continuous PRN, Ry De Anda MD sodium chloride 0.9 % infusion, 10 mL/hr, intravenous, Continuous PRN, Ry De Anda MD sodium chloride 0.9 % infusion, 10 mL/hr, intravenous, Continuous PRN, Ry De Anda MD PAST MEDICAL AND SURGICAL HISTORY Past Medical History: Diagnosis Date AAA (abdominal aortic aneurysm) ([facility]) was surgically taken care of 09/2018 GERD (gastroesophageal reflux disease) Hypertension Upper respiratory infection 05/2019 Visual impairment glasses Past Surgical History: Procedure Laterality Date BREAST BIOPSY BREAST SURGERY 1989 BREAST BX CARDIAC SURGERY STENT 2018 CARDIAC SURGERY LEFT VENTRICLE STENT 2018 DILATION AND CURETTAGE, DIAGNOSTIC / THERAPEUTIC 1986 HYSTERECTOMY KNEE ARTHROSCOPY Left KNEE ARTHROSCOPY Left REMOVE METAL 2014 LAPAROSCOPIC CHOLECYSTECTOMY N/A 05/26/2019 Performed by Caro Pollard DO at [facility] ORIF WRIST FRACTURE Right Pins FAMILY HISTORY No family history on file. SOCIAL HISTORY Occupation: Did not obtain Tobacco Use: Did not obtain Alcohol Use: Did not obtain Drug Use: Did not obtain Marital Status: Did not obtain Children: Did not obtain REVIEW OF SYSTEMS A 14 point review of systems was negative other than that documented in the HPI. PHYSICAL EXAMINATION Temp: [36.7 C (98.1 F)] 36.7 C (98.1 F) Pulse: [74-97] 74 Resp: [13-18] 13 BP: (127-175)/(87-110) 151/87 SpO2: [92 %-98 %] 96 % O2 Device: None (Room air) The patient is in no acute distress. The patient is drowsy but arousable. Oriented x 3. The patient exhibits unlabored breathing and normal respirations. Sclera white Oral mucous membranes dry PERRL, EOMI, face symmetric, tongue midline, right shoulder shrug weakness, facial sensation intactto light touch (V1, V2, V3). LUE/LLE strength intact RUE with some distal volitional movement; WD pain RLE LABORATORY DATA Results from last 7 days Lab Units 04/01/23 0411 BEDSIDE GLUCOSE mg/dL 101* Cultures: N/A IMAGING CT IMAGING CT Brain: * Enlarging left basal ganglia intraparenchymal hemorrhage with worsening intraventricular extension. New, 2-3 mm rightward midline shift. * Trace amount of adjacent subarachnoid hemorrhage, not definitively seen on prior exam. ASSESSMENT 78 yo female presented to OSH for right sided weakness found to have left basal ganglia IPH with intraventricular extension. PLAN Neuro: - Serial neuro checks - Elevate HOB - PT/OT/ST - PRN pain control; no NSAIDs - Will review imaging with attending Cardiovascular: - maintain SBP < 160 per primary team; utilize PRN medications as needed Pulmonary: - Monitor airway - Encourage IS while awake - Aspiration precautions Fluids, electrolytes, nutrition: - isotonic or hypertonic fluids only - diet: NPO; ok to advance diet from NS standpoint Renal: - monitor creatinine Hematology: - hold anticoagulants and anti-platelets Infectious diseases: - monitor white count - antibiotics: N/A Endocrine: - maintain euglycemia Prophylaxis: - ulcer prophylaxis: N/A - DVT prophylaxis: EPC; no chemical prophylaxis Aleida Schultz APRN-STUDY LEAD [facility] Contact via patient touch 04/01/23 7:13 AM To find out which [place] is on for the day please go to [employer] and use log in [employer] and search for [facility] Neurosurgery (EEVRETT and Phone Number is listed) KOTA Sheridan 04/01/23 0713 Reviewed imaging studies. [address] demonstrated blossoming. Recommend [address] Surgical intervention is unlikely to be warranted as risk/benefit profile at her age favors non-operative management. - Dulce Agarwal MD 04/01/23 8:15 AM documented in this encounterBrecks[facility] HospitalAvaL[id number] Nurse Note* Oksana Mathis RN - 04/11/2023 9:20 AM EST Multidisciplinary Rounds Attendees: Bedside RN, Unit clinical lead, Stroke RN, and PT, OT, PIPE BENDER Diet: Dietary Orders (From admission, onward) Start Ordered 04/11/23 0800 Free water Every 4 hours Question Answer Comment Amount in mL 350 Tube Type: Nasogastric or Oral gastric feeding tube 04/11/23 0721 04/11/23 0608 Adult diet NPO; Except medications Diet effective now Question Answer Comment Diet Type: NPO NPO Except: Except medications 04/11/23 0607 PT OT PIPE BENDER: PT OT PIPE BENDER Orders (From admission, onward) Start Ordered 04/01/23409 Consult Speech Therapy- eval/treat Once Question Answer Comment Reason for ST? Bedside Swallow Reason for ST? Other Please Specify dysphagia recommendations 04/01/2341104/01/23408 OT consult eval and treat Once Question Answer Comment Does patient currently have an order for bedrest? Yes - please change activity order before proceeding Has nursing attempted to mobilize this patient? NO - should occur before consult order is placed Reason for OT Stroke 04/01/2341104/01/23408 PT consult eval and treat Once Question Answer Comment Does patient currently have an order for bedrest? Yes - please change activity order before proceeding Has nursing attempted to mobilize this patient? NO - should occur before consult order is placed Reason for PT? Stroke 04/01/2341104/01/23408 ST consult eval and treat Once Question Answer Comment Reason for ST? Speech/Language/Cognition Reason for ST? Stroke Reason for ST? Bedside Swallow 04/01/23411 Activity: None Comments: Larios yes CVL: No Drips: None Intubated: No Family Issues: None Outstanding Tests/Procedures: OR Barriers: None Discharge Plan: LTAC * Michela Simmons RN - 04/10/2023 8:45 AM EST Multidisciplinary Rounds Attendees: Bedside RN, Unit clinical lead, PT, OT, PIPE BENDER, and Care navigation Diet: Dietary Orders (From admission, onward) Start Ordered 04/07/23 1200 Free water Every 4 hours Question Answer Comment Amount in mL 300 Tube Type: Nasogastric or Oral gastric feeding tube 04/07/23 0809 04/02/23 1509 Tube feeding No tray-Continuous Tube feeding No Tray-Continuous; Nasogastric or Oral gastric feeding tube; Standard 1.5 kcal; 15; 10; Every 8 hours; 45 Continuous Comments: Formula: Osmolite 1.5 References: Formulary Card Question Answer Comment Diet Type: Tube feeding No Tray-Continuous Tube Type: Nasogastric or Oral gastric feeding tube Tube Feeding Formula: Standard 1.5 kcal Tube Feeding Start Rate (mL/hour): 15 Increase Rate by (mL/hour): 10 Frequency of Rate increase: Every 8 hours Goal Rate (mL/hour): 45 04/02/23 1509 PT OT PIPE BENDER: PT OT PIPE BENDER Orders (From admission, onward) Start Ordered 04/01/23409 Consult Speech Therapy- eval/treat Once Question Answer Comment Reason for ST? Bedside Swallow Reason for ST? Other Please Specify dysphagia recommendations 04/01/2341104/01/23408 OT consult eval and treat Once Question Answer Comment Does patient currently have an order for bedrest? Yes - please change activity order before proceeding Has nursing attempted to mobilize this patient? NO - should occur before consult order is placed Reason for OT Stroke 04/01/2341104/01/23408 PT consult eval and treat Once Question Answer Comment Does patient currently have an order for bedrest? Yes - please change activity order before proceeding Has nursing attempted to mobilize this patient? NO - should occur before consult order is placed Reason for PT? Stroke 04/01/2341104/01/23408 ST consult eval and treat Once Question Answer Comment Reason for ST? Speech/Language/Cognition Reason for ST? Stroke Reason for ST? Bedside Swallow 04/01/23411 Activity: Up with assist Comments: Larios: Yes and Continues to meet requirements CVL: No Drips: None Intubated: No Family Issues: None Outstanding Tests/Procedures: None Barriers: respiratory status Discharge Plan: SNIF * Mya Jimenez RN - 04/09/2023 7:46 AM EST Multidisciplinary Rounds Attendees: Bedside RN and Unit clinical lead Diet: Dietary Orders (From admission, onward) Start Ordered 04/07/23 1200 Free water Every 4 hours Question Answer Comment Amount in mL 300 Tube Type: Nasogastric or Oral gastric feeding tube 04/07/23 0809 04/02/23 1509 Tube feeding No tray-Continuous Tube feeding No Tray-Continuous; Nasogastric or Oral gastric feeding tube; Standard 1.5 kcal; 15; 10; Every 8 hours; 45 Continuous Comments: Formula: Osmolite 1.5 References: Formulary Card Question Answer Comment Diet Type: Tube feeding No Tray-Continuous Tube Type: Nasogastric or Oral gastric feeding tube Tube Feeding Formula: Standard 1.5 kcal Tube Feeding Start Rate (mL/hour): 15 Increase Rate by (mL/hour): 10 Frequency of Rate increase: Every 8 hours Goal Rate (mL/hour): 45 04/02/23 1509 PT OT PIPE BENDER: PT OT PIPE BENDER Orders (From admission, onward) Start Ordered 04/01/23 0410 Consult Speech Therapy- eval/treat Once Question Answer Comment Reason for ST? Bedside Swallow Reason for ST? Other Please Specify dysphagia recommendations 04/01/232 04/01/23408 OT consult eval and treat Once Question Answer Comment Does patient currently have an order for bedrest? Yes - please change activity order before proceeding Has nursing attempted to mobilize this patient? NO - should occur before consult order is placed Reason for OT Stroke 04/01/232 04/01/23408 PT consult eval and treat Once Question Answer Comment Does patient currently have an order for bedrest? Yes - please change activity order before proceeding Has nursing attempted to mobilize this patient? NO - should occur before consult order is placed Reason for PT? Stroke 04/01/232 04/01/23408 ST consult eval and treat Once Question Answer Comment Reason for ST? Speech/Language/Cognition Reason for ST? Stroke Reason for ST? Bedside Swallow 04/01/23411 Activity: Up with assist Comments: Larios: Yes and Continues to meet requirements CVL: No Drips: None Intubated: No Family Issues: None Outstanding Tests/Procedures: VFSS vs PEG placement Barriers: None Discharge Plan: [facility] [place] accepting * Michela Simmons RN - 04/08/2023 7:59 AM EST Multidisciplinary Rounds Attendees: Bedside RN and Unit clinical lead Diet: Dietary Orders (From admission, onward) Start Ordered 04/07/23 1200 Free water Every 4 hours Question Answer Comment Amount in mL 300 Tube Type: Nasogastric or Oral gastric feeding tube 04/07/23 0809 04/02/23 1509 Tube feeding No tray-Continuous Tube feeding No Tray-Continuous; Nasogastric or Oral gastric feeding tube; Standard 1.5 kcal; 15; 10; Every 8 hours; 45 Continuous Comments: Formula: Osmolite 1.5 References: Formulary Card Question Answer Comment Diet Type: Tube feeding No Tray-Continuous Tube Type: Nasogastric or Oral gastric feeding tube Tube Feeding Formula: Standard 1.5 kcal Tube Feeding Start Rate (mL/hour): 15 Increase Rate by (mL/hour): 10 Frequency of Rate increase: Every 8 hours Goal Rate (mL/hour): 45 04/02/23 1509 PT OT PIPE BENDER: PT OT PIPE BENDER Orders (From admission, onward) Start Ordered 04/01/23409 Consult Speech Therapy- eval/treat Once Question Answer Comment Reason for ST? Bedside Swallow Reason for ST? Other Please Specify dysphagia recommendations 04/01/2341104/01/23408 OT consult eval and treat Once Question Answer Comment Does patient currently have an order for bedrest? Yes - please change activity order before proceeding Has nursing attempted to mobilize this patient? NO - should occur before consult order is placed Reason for OT Stroke 04/01/2341104/01/23408 PT consult eval and treat Once Question Answer Comment Does patient currently have an order for bedrest? Yes - please change activity order before proceeding Has nursing attempted to mobilize this patient? NO - should occur before consult order is placed Reason for PT? Stroke 04/01/2341104/01/23408 ST consult eval and treat Once Question Answer Comment Reason for ST? Speech/Language/Cognition Reason for ST? Stroke Reason for ST? Bedside Swallow 04/01/23411 Activity: Up with assist Comments: Larios: Yes and Continues to meet requirements CVL: No Drips: None Intubated: No Family Issues: None Outstanding Tests/Procedures: OR - peg placement Barriers: None Discharge Plan: SNIF * Michela Simmons RN - 04/07/2023 7:11 AM EST Multidisciplinary Rounds Attendees: Bedside RN and Unit clinical lead Diet: Dietary Orders (From admission, onward) Start Ordered 04/06/23 1800 Free water 4 times daily Question Answer Comment Amount in mL 300 Tube Type: Nasogastric or Oral gastric feeding tube 04/06/23 1327 04/02/23 1509 Tube feeding No tray-Continuous Tube feeding No Tray-Continuous; Nasogastric or Oral gastric feeding tube; Standard 1.5 kcal; 15; 10; Every 8 hours; 45 Continuous Comments: Formula: Osmolite 1.5 References: Formulary Card Question Answer Comment Diet Type: Tube feeding No Tray-Continuous Tube Type: Nasogastric or Oral gastric feeding tube Tube Feeding Formula: Standard 1.5 kcal Tube Feeding Start Rate (mL/hour): 15 Increase Rate by (mL/hour): 10 Frequency of Rate increase: Every 8 hours Goal Rate (mL/hour): 45 04/02/23 1509 PT OT PIPE BENDER: PT OT PIPE BENDER Orders (From admission, onward) Start Ordered 04/01/23409 Consult Speech Therapy- eval/treat Once Question Answer Comment Reason for ST? Bedside Swallow Reason for ST? Other Please Specify dysphagia recommendations 04/01/232 04/01/23 040 OT consult eval and treat Once Question Answer Comment Does patient currently have an order for bedrest? Yes - please change activity order before proceeding Has nursing attempted to mobilize this patient? NO - should occur before consult order is placed Reason for OT Stroke 04/01/23 0412 04/01/23408 PT consult eval and treat Once Question Answer Comment Does patient currently have an order for bedrest? Yes - please change activity order before proceeding Has nursing attempted to mobilize this patient? NO - should occur before consult order is placed Reason for PT? Stroke 04/01/232 04/01/23408 ST consult eval and treat Once Question Answer Comment Reason for ST? Speech/Language/Cognition Reason for ST? Stroke Reason for ST? Bedside Swallow 04/01/23411 Activity: Bedrest Comments: Larios: Yes and Continues to meet requirements CVL: No Drips: None Intubated: No Family Issues: None Outstanding Tests/Procedures: None Barriers: Respiratory status Discharge Plan: SNIF * Sahra Lopez RN - 04/04/2023 8:43 AM EST Multidisciplinary Rounds Attendees: Bedside RN, Unit clinical lead, Stroke RN, PT, OT, PIPE BENDER, Care navigation, and Dietary Diet: Dietary Orders (From admission, onward) Start Ordered 04/02/23 1509 Tube feeding No tray-Continuous Tube feeding No Tray-Continuous; Nasogastric or Oral gastric feeding tube; Standard 1.5 kcal; 15; 10; Every 8 hours; 45 Continuous Comments: Formula: Osmolite 1.5 References: Formulary Card Question Answer Comment Diet Type: Tube feeding No Tray-Continuous Tube Type: Nasogastric or Oral gastric feeding tube Tube Feeding Formula: Standard 1.5 kcal Tube Feeding Start Rate (mL/hour): 15 Increase Rate by (mL/hour): 10 Frequency of Rate increase: Every 8 hours Goal Rate (mL/hour): 45 04/02/23 1509 PT OT PIPE BENDER: PT OT PIPE BENDER Orders (From admission, onward) Start Ordered 04/01/23409 Consult Speech Therapy- eval/treat Once Question Answer Comment Reason for ST? Bedside Swallow Reason for ST? Other Please Specify dysphagia recommendations 04/01/2341104/01/23408 OT consult eval and treat Once Question Answer Comment Does patient currently have an order for bedrest? Yes - please change activity order before proceeding Has nursing attempted to mobilize this patient? NO - should occur before consult order is placed Reason for OT Stroke 04/01/2341104/01/23408 PT consult eval and treat Once Question Answer Comment Does patient currently have an order for bedrest? Yes - please change activity order before proceeding Has nursing attempted to mobilize this patient? NO - should occur before consult order is placed Reason for PT? Stroke 04/01/2341104/01/23408 ST consult eval and treat Once Question Answer Comment Reason for ST? Speech/Language/Cognition Reason for ST? Stroke Reason for ST? Bedside Swallow 04/01/23411 Activity: HOB 30 degrees, Chair, and Up with assist Comments: Larios: Yes-retention CVL: No Drips: None Intubated: No Family Issues: None Outstanding Tests/Procedures: None Barriers: None Discharge Plan: Needs PT/OT evaluation * Paula Castillo RN - 04/01/2023 7:43 AM EST Multidisciplinary Rounds Attendees: Bedside RN, Unit clinical lead, Stroke RN, PT, OT, PIPE BENDER, and Care navigation Diet: Dietary Orders (From admission, onward) Start Ordered 04/01/23408 Adult diet NPO Diet effective now Comments: Contact physician for diet order if patient passes bedside dysphagia screen. Question: Diet Type: Answer: NPO 04/01/23411 PT OT PIPE BENDER: PT OT PIPE BENDER Orders (From admission, onward) Start Ordered 04/01/23409 Consult Speech Therapy- eval/treat Once Question Answer Comment Reason for ST? Bedside Swallow Reason for ST? Other Please Specify dysphagia recommendations 04/01/2341104/01/23408 OT consult eval and treat Once Question Answer Comment Does patient currently have an order for bedrest? Yes - please change activity order before proceeding Has nursing attempted to mobilize this patient? NO - should occur before consult order is placed Reason for OT Stroke 04/01/2341104/01/23408 PT consult eval and treat Once Question Answer Comment Does patient currently have an order for bedrest? Yes - please change activity order before proceeding Has nursing attempted to mobilize this patient? NO - should occur before consult order is placed Reason for PT? Stroke 04/01/2341104/01/23408 ST consult eval and treat Once Question Answer Comment Reason for ST? Speech/Language/Cognition Reason for ST? Stroke Reason for ST? Bedside Swallow 04/01/23411 Activity: none Comments: Larios: Yes CVL: No Drips: Insulin Intubated: No Family Issues: None Outstanding Tests/Procedures: None Barriers: None Discharge Plan: Needs PT/OT evaluation [facility] History and physical note* Ry De Anda MD - 04/01/2023 3:29 AM EST Stroke / Neurointerventional Ischemic stroke admission note: Date of admission : 04/01/2023 Chief complaint: Right-sided weakness Last known well: 9:00 a.m. on 03/31/2023 Premorbid mRS: 0 Initial NIHSS: 1 NIHSS at [facility]: 4 First CTH: Small left thalamic ICH History of presenting illness: Ellen Chan is a 78 y.o. female with a PMH of HTN, GERD, AAA who presented to an outside hospital with a right-sided weakness. BP on presentation was 155/112. NIHSS was 1. CT head showed small left thalamic ICH. Patient was transferred to [facility] for further care. Patient stated that her symptoms began at 9:00 a.m. It started off as weakness involving her right leg. She is a poor historian and can not remember if she also had any numbness. She denied any stroke history or any anticoagulation use. She said that she lives independently and does all ADLs. She denied any headaches or vision changes. Home medications: No medications prior to admission. Past medical history: Past Medical History: Diagnosis Date AAA (abdominal aortic aneurysm) ([facility]) was surgically taken care of 09/2018 GERD (gastroesophageal reflux disease) Hypertension Upper respiratory infection 05/2019 Visual impairment glasses Past surgical history: Past Surgical History: Procedure Laterality Date BREAST BIOPSY BREAST SURGERY 1989 BREAST BX CARDIAC SURGERY STENT 2018 CARDIAC SURGERY LEFT VENTRICLE STENT 2018 DILATION AND CURETTAGE, DIAGNOSTIC / THERAPEUTIC 1986 HYSTERECTOMY KNEE ARTHROSCOPY Left KNEE ARTHROSCOPY Left REMOVE METAL 2014 LAPAROSCOPIC CHOLECYSTECTOMY N/A 05/26/2019 Performed by Caro Pollard DO at [facility] ORIF WRIST FRACTURE Right Pins Family history: Shefamily history is not on file. Allergies: Sheis allergic to ciprofloxacin, alendronate, bee venom protein (honey bee), [id number]-kiimgodxz, and oxycodone. Social history: Social History Socioeconomic History Marital status: Spouse name: Not on file Number of children: Not on file Years of education: Not on file Highest education level: Not on file Occupational History Not on file Tobacco Use Smoking status: Former Smokeless tobacco: Never Tobacco comments: QUIT IN JUNE Substance and Sexual Activity Alcohol use: Yes Comment: SOMETIMES Drug use: Never Sexual activity: Not on file Other Topics Concern Not on file Social History Narrative Not on file Social Determinants of Health Financial Resource Strain: Not on file Food Insecurity: Not on file Transportation Needs: Not on file Physical Activity: Not on file Stress: Not on file Social Connections: Not on file Interpersonal Safety: Not on file Review of systems Constitutional: Negative for chills and fever. HENT: Negative for headache, rhinorrhea and sneezing. Eyes: Negative for discharge and redness. Respiratory: Negative for cough and shortness of breath. Cardiovascular: Negative for chest pain/discomfort and palpitations. Gastrointestinal: Negative for abdominal pain. Musculoskeletal: Negative for back pain and neck pain. Skin: Negative for rash. Neurological: as listed below Physical exam Vital Signs: There were no vitals taken for this visit. Respiratory Source: No data recorded Admission Weight: Gonstitutional: Appears in no acute distress, well groomed, and of stated age. Respiratory: Normal respiratory effort. Cardiac: S1, S2 audible. Regular rate and rhythm. No murmur or rub. Neurologic: Mental status: Alert; oriented to time, place, person. No aphasia. No dysarthria. No apraxias. Normal recent and remote memory. Normal attention span and concentration. Fund of knowledge within normal limits. Able to provide good history. Cranial nerves: Cranial nerves II through XII intact. Pupils equal with no deviation, symmetrical face. Motor: Patient has 5/5 power in bilateral upper extremities in response to resistance. However, when patient is asked to lift her right upper extremity, she can not do it. She is able to move the right lower extremity only along the plane of the bed. Sensory examination: Sensation to light touch bilaterally symmetric and normal Coordination: Impaired qmkxgc-pyid-ggniio testing on the right. NIH Stroke Scale 1a Level of consciousness: 0=alert; keenly responsive 1b. LOC questions: 0=Performs both tasks correctly 1c. LOC commands: 0=Performs both tasks correctly 2. Best Gaze: 0=normal 3. Visual: 0=No visual loss 4. Facial Palsy: 0=Normal symmetric movement 5a. Motor left arm: 0=No drift, limb holds 90 (or 45) degrees for full 10 seconds 5b. Motor right arm: 0=No drift, limb holds 90 (or 45) degrees for full 10 seconds 6a. motor left le=No drift, limb holds 90 (or 45) degrees for full 10 seconds 6b Motor right le=No effort against gravity, limb falls 7. Limb Ataxia: 1=Present in one limb 8. Sensory: 0=Normal; no sensory loss 9. Best Language: 0=No aphasia, normal 10. Dysarthria: 0=Normal 11. Extinction and Inattention: 0=No abnormality 12. Distal motor function: 0=Normal Total: 4 Lab Review Lab Results Component Value Date CALCIUM 9.6 05/19/2019 K 3.7 05/19/2019 CO2 27 05/19/2019 BUN 13 05/19/2019 CREATININE 0.77 05/19/2019 Lab Results Component Value Date WBC 4.8 05/19/2019 HGB 12.4 05/19/2019 MCV 88 05/19/2019 PLT 138 (L) 05/19/2019 No results found for: INR No results found for: LDL , CHOLESTEROLT Imaging CT head showed small left thalamic ICH. Assessment: Ellen Chan is a 78 y.o. female with a PMH of HTN, GERD, AAA who presented to an outside hospital with a right-sided weakness. BP on presentation was 155/112. NIHSS was 1. CT head showed small left thalamic ICH. Patient was transferred to [facility] for further care. Sx began at 9:00 a.m. It started off as weakness involving her right leg. No prior stroke or anticoagulation use. lives independently and does all ADLs. NIHSS was 4 at [facility]. 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 Achieve above parameters with Cardene infusion p.r.n., p.r.n. labetalol, hydralazine Diet: NPO until swallow study MRI brain with and without contrast to evaluate ICH Stroke work up including echo, A1c, LDL Resume home meds once reconciled PT/OT/ST Ry De Anda MD PGY-2 Neurology [facility] 04/01/23 Plan and findings have been discussed with attending physician dr Mohan De Anda. Please note any annotations and addendums. Associated attestation - Willard Krueger MD - 04/01/2023 12:43 PM EST I saw the patient. I participated and was physically present during the felix portions of the service. I was directly involved in the management and treatment plan of the patient. I have reviewed the resident s admission/consultation note. 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 ICH score on admission is 2. This is likely hypertensive in etiology. Overnight, she has been drowsy and repeat head CT scan shows further ICH extension. Currently in the neuro intensive care unit. Appreciate neuro critical care team input. SBP cap below [address] scan in a.m.. Further plan of care as outlined. [facility] Encounter Date Diagnosis Assessment Notes Treatment Notes Treatment Clinical Notes Nov, Other closed extra-articular fracture of [...] possible carpal tunnel release in the future. [facility] Other 06-27-2023 Evaluation note* Encounter Date Diagnosis [...] Right carpal tunnel syndrome (ICD-10 - G56.01) [facility] Other 06-02-2023 Evaluation note* Encounter Date Diagnosis [...] reaction to wasp sting (ICD-10 - T63.461A) [facility] Other 05-26-2023 Evaluation note* Encounter Date Diagnosis [...] refer for EMG testing. Patient is agreeable. [facility] Other 04-14-2023 Evaluation note* Encounter Date Diagnosis [...] Other specified postprocedural states (ICD-10 - Z98.890) [facility] Other 03-15-2023 Evaluation note* Encounter Date Diagnosis [...] Other specified postprocedural states (ICD-10 - Z98.890) [facility] Other 02-27-2023 Evaluation + Plan note Future Scheduled Tests Radiology* CTA Abdomen and Pelvis 06/04/22 * CTA Chest 06/04/22 [facility]02-15-2023 Evaluation note* Encounter Date Diagnosis Assessment Notes [...] of edema glove and soaking as discussed. [facility] Other 02-01-2023 Evaluation note* Encounter Date Diagnosis [...] Other specified postprocedural states (ICD-10 - Z98.890) [facility] Other 01-20-2023 NotePROCEDURE: XR WRIST RT MIN [...] Electronically authenticated by: ANTOLIN VALLADARES Date: 2022-04-27 08:49[facility]01-03-[facility] Evaluation note* Encounter Date Diagnosis [...] Apr, Annual physical exam (ICD-10 - Z00.00) [facility] Other Evaluation noteNo assessment information available [facility] Work Phone: Evaluation noteNo InformationNort [employer] Other Evaluation note* Diagnosis 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CMS-HCC)- Primary Intracerebral hemorrhage 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[facility]) Intracerebral hemorrhage [facility] - Reported* Type Description Date Medical History Arthritis Medical History hypertension Surgical History broken wrist 1979 Surgical History hysterectomy 1979 Surgical History D&C 1979 Surgical History left knee Surgical History ORIF right wrist 04/30/22 Hospitalization History see above [facility] Other Hospital course Narrative No data available for this section [facility] Additional Instructions DR. MANE'S POST OP INSTRUCTIONS Take prescribed pain medication [...] to decrease risk of infection after surgery [facility] Work Phone: Hospital Discharge instructions No data available for this section [facility]ructionsNot on filedocumented in this encounter [facility] No data available for this section [facility] Summary Purpose Family History Relationship Condition Age at Onset Recorded Date/T becky natural son Diabetes mellitus Unknown Advance Directives Advance Directive Response Recorded Date/ Time Advance Directives No April 27, 2022 5:07pm Advance Directive Response Recorded Date/ Time Advance Directives No April 27, 2022 6:07pm Documents on File Type Date Recorded Patient Escalator Attendant Expl anation Durable Power of Antenna Specialist 05/26/2019 6:13 AM healthcare POA Living Will 05/26/2019 6:10 AM living vane l Latest Code Status on File Code Status Date Activated Date Inactivated Comments Modified Code Status [place] 04/02/2023 3:01 PM 04/17/2023 1:07 PM Question Answer Comments Code Limitations: No Chest Compressions No Defibrillation or Cardioversion Code Status History Code Status Date Activated Date Inactivated Comments DNR Comfort Care Arrest (DNR-CCA) [place] 04/02/2023 2:19 PM 04/02/2023 3:01 PM Full Code 04/02/2023 8:11 AM 04/02/2023 2:19 PM Healthcare Agents on File Name Relationship [facility] Communication Roula Alexis [facility] Care Agent Documents on File Type Date Recorded Patient Escalator Attendant Expl anation Durable Power of Antenna Specialist 05/26/2019 6:13 AM healthcare POA Living Will 05/26/2019 6:10 AM living vane l Latest Code Status on File Code Status Date Activated Date Inactivated Comments Modified Code Status [place] 04/02/2023 3:01 PM 04/17/2023 1:07 PM Question Answer Comments Code Limitations: No Chest Compressions No Defibrillation or Cardioversion Code Status History Code Status Date Activated Date Inactivated Comments DNR Comfort Care Arrest (DNR-CCA) [place] 04/02/2023 2:19 PM 04/02/2023 3:01 PM Full Code 04/02/2023 8:11 AM 04/02/2023 2:19 PM Healthcare Agents on File Name Relationship Healthcare Agent Relationshi p Communication Roula Miranda [facility] Care Agent Chief Complaint and Reason for Visit Chief Complaint wrist fx Chief Complaint wrist fx S52.551D Chief Complaint wrist fx S52.551D S52.551D Reason for Referral Specialty Diagnoses / Procedures Referred By Contac t Referred To Contact Procedures Adult diet- Regular Adult diet- Regular Artemio Ray MD [address] [place] [phone] Referral ID Status Reason Start Date Expiration Date V isits Requested Visits Authorized [id number] Pending Review 04/16/2023 04/15/2024 1 1 Specialty Diagnoses / Procedures Referred By Contac t Referred To Contact Procedures Discharge Follow-Up Artemio Ray MD [address] [place] [phone] Referral ID Status Reason Start Date Expiration Date V isits Requested Visits Authorized [id number] Pending Review 04/16/2023 04/15/2024 1 1 Specialty Diagnoses / Procedures Referred By Contac t Referred To Contact Diagnoses 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[facility]) Procedures Follow-up with primary care provider Artemio Ray MD [address] [place] [phone] Referral ID Status Reason Start Date Expiration Date V isits Requested Visits Authorized [id number] Pending Review 04/16/2023 04/15/2024 1 1 Specialty Diagnoses / Procedures Referred By Contac t Referred To Contact Diagnoses 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[facility]) Artemio Ray MD [address] [place] [phone] Referral ID Status Reason Start Date Expiration Date V isits Requested Visits Authorized [id number] Pending Review 04/16/2023 04/15/2024 1 1 Specialty Diagnoses / Procedures Referred By Contac t Referred To Contact Speech Pathology Diagnoses 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[facility]) Artemio Ray MD [address] [place] [phone] Referral ID Status Reason Start Date Expiration Date Visits Requested Visits Authorized [id number] Pending Review Specialty Services Required 04/16/2023 04/15/2024 1 1 Specialty Diagnoses / Procedures Referred By Contac t Referred To Contact Behavioral Health Diagnoses 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[facility]) Artemio Ray MD [address] [place] [phone] Referral ID Status Reason Start Date Expiration Date Visits Requested Visits Authorized [id number] Pending Review Specialty Services Required 04/16/2023 04/15/2024 1 1 Specialty Diagnoses / Procedures Referred By Contac t Referred To Contact Rehabilitation Diagnoses 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[facility]) Artemio Ray MD [address] [place] [phone] Referral ID Status Reason Start Date Expiration Date Visits Requested Visits Authorized [id number] Pending Review Specialty Services Required 04/16/2023 04/15/2024 1 1 Specialty Diagnoses / Procedures Referred By Contac t Referred To Contact Occupational Therapy Diagnoses 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[facility]) Artemio Ray MD [address] [place] [phone] Referral ID Status Reason Start Date Expiration Date Visits Requested Visits Authorized [id number] Pending Review Specialty Services Required 04/16/2023 04/15/2024 1 1 Reason EMG for RCTS Diagnosis 1 Other closed extra-a rticular fracture of distal end of right radius with routine healing, subsequent encounter (S52.002B) Referral Organization [facility] Sanju cooney Referring Provider First Name Kate Referring Provider Last Name Teresa Referring Provider 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 y Referred Organization [facility] Referred Address [address] [place],[phone] Referred Provider Specialty Neurology Referral Priority Routine Additional Source Comments INFORMATION SOURCE (unrecogn ized section and content) DATE CREATED AUTHOR 08/01/2021 [facility] DATE CREATED AUTHOR AUTHOR'S ORGANIZ ATION 05/15/2022 [facility] DATE CREATED AUTHOR AUTHOR'S ORGANIZ ATION 09/15/2022 [facility] DATE CREATED AUTHOR AUTHOR'S ORGANIZ ATION 10/09/2022 [facility] DATE CREATED AUTHOR AUTHOR'S ORGANIZ ATION 04/07/2023 [facility] DATE CREATED AUTHOR AUTHOR'S ORGANIZ ATION 04/21/2023 [facility] Care Teams (unrecognized sec tion and content) Team Status: Active Member Role Status Dates Nithya Brown MD Primary Care Provider Active Team Status: Inactive Member Role Status Dates Nithya Brown MD Primary Care Provider Active Kate Mane MD Attending Provider Active Automotive Painter Relationship Specialty Start Date End Date Nithya Brown MD [address] [place], [place] [phone] PCP - General Family Medicine 05/05/19 Automotive Painter Relationship Specialty Start Date End Date Nithya Brown MD [address] [place] [phone] PCP - General Family Medicine 05/05/19 REASON FOR VISIT (unrecogniz ed section and content) message Specialty Diagnoses / Procedures Referred By Contac t Referred To Contact Diagnoses 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[facility]) Left thalamic hemorrhage Willard Krueger MD [address] [place] [address] Referral ID Status Reason Start Date Expiration Date Visits Re quested Visits Authorized [id number] 1 1 Scheduled Active and Recently Administ ered Medications (unrecognized section and content) Medication Order 04/15/2023 04/16/2023 04/17/2023 amLODIPine (NORVASC) tablet 10 mg 10 mg, nasogastric, Daily, First dose (after last modification) on Sat04/03/23 at 0900, Maintain SBP between 110-140. Look-alike/sound-alike medication - verify indication for use. Avoid grapefruit juice. 926 (Given - Provider: Jose J López RN) 1106 (Given - Provider: Nicole Altamirano RN) 0900 (Due) bisacodyL (DULCOLAX) suppository 10 mg 10 mg, rectal, Every 3 days, First dose on Sat04/05/23 at 0900, Start at 0900 on day 2. Look-alike/sound-alike medication - verify indication for use. 899 (Due) carvediloL (COREG) tablet 25 mg 25 mg, nasogastric, 2 times daily, First dose (after last modification) on Sat04/13/23 at 0900, Hold for SBP <100 and/or HR <60. Give with meal or snack. Look-alike/sound-alike medication - verify indication for use. 926 (Given - Provider: Jose J López RN)2050 (Given - Provider: Ethel Marshall RN) 999 (Given - Provider: Nicole Altamirano RN)2104 (Given - Provider: Ethel Marshall RN) 899 (Due) fondaparinux (ARIXTRA) injection 2.5 mg 2.5 mg, subcutaneous, Daily, First dose (after last modification) on Sat04/14/23 at 0900, Look-alike/sound-alike medication - verify indication for use. 927 (Given - Provider: Jose J López RN) 919 (Given - Provider: Nicole Altamirano RN) 899 (Due) lisinopriL (PRINIVIL,ZESTRIL) tablet 40 mg 40 mg, nasogastric, 2 times daily, First dose (after last modification) on Sat04/15/23 at 0900, Hold for SBP <110 and contact provider. Look-alike/sound-alike medication - verify indication for use. 926 (Given - Provider: Jose J López RN)2050 (Given - Provider: Ethel Marshall RN) 899 (Not Given - Provider: Nicole Altamirano RN - Reason: Order parameters not met)2104 (Given - Provider: Ethel Marshall RN) 899 (Due) magnesium hydroxide (MILK OF MAGNESIA) suspension 30 mL 30 mL, nasogastric, Every 3 days, First dose on Lety 04/04/23 at 2200, Start at 2200 on day 1 Shake well. 2104 (Given - Provider: Ethel Marshall RN) omeprazole-sodium bicarbonate (KONVOMEP) 2-84 mg/mL oral suspension 40 mg 40 mg, nasogastric, Daily, First dose on Lety 04/04/23 at 0900, Administer 1 hour before a meal. Suspend tube feeding for 3 hours before and 1 hour after administering. Look-alike/sound-alike medication - verify indication for use., Indication: Dispense As Written (SADIE) 1226 (Given - Provider: Jose J López RN) 0922 (Given - Provider: Nicole Altamirano RN) 0900 (Due) sennosides-docusate sodium (SENOKOT-S) 8.6-50 mg 2 tablet 2 tablet, nasogastric, 2 times daily, First dose (after last modification) on Sat04/03/23 at 0900 0928 (Given - Provider: Jose J López RN)2100 (Not Given - Provider: Ethel Marshall RN - Reason: Order parameters not met) 09 (Given - Provider: Nicole Altamirano RN)210 (Given - Provider: Ethel Marshall RN) 0900 (Due) PRN Medication Order 04/15/2023 04/16/2023 04/17/2023 acetaminophen (TYLENOL) 650 mg/20.3 mL solution 650 mg 650 mg, nasogastric, Every 6 hours PRN, mild pain - pain scale 1-3, temperature greater than 38 C, headaches, Starting on Sat04/03/23 at 0833 0929 (Given - Provider: Jose J López RN)205 (Given - Provider: Ethel Marshall RN) 1108 (Given - Provider: Nicole Altamirano RN)2105 (Given - Provider: Ethel Marshall RN) calcium gluconate 3,000 mg in sodium chloride 0.9 % 100 mL IVPB(Linked Group 1) 3,000 mg, intravenous, at 130 mL/hr, Administer over 60 Minutes, As needed, for ionized calcium level less than 3 mg/dL, Starting on Sat04/01/23 at 0408, CALL PHYSICIAN if this dose is administered. Recheck ionized calcium 6 hours after infusion. Hold calcium replacement for phosphorus greater than 5.5 mg/dL. VESICANT (RED) calcium gluconate IVPB 1000 mg/50 mL (20 mg/mL premix)(Linked Group 1) 1,000 mg, intravenous, at 50 mL/hr, Administer over 60 Minutes, As needed, for ionized calcium level 3.5 to 4.4 mg/dL, Starting on Sat04/01/23 at 0408, Recheck ionized calcium 6 hours after infusion. Hold calcium replacement for phosphorus greater than 5.5 mg/dL. VESICANT (RED) calcium gluconate IVPB 2000 mg/100 mL (20 mg/mL premix)(Linked Group 1) 2,000 mg, intravenous, at 100 mL/hr, Administer over 60 Minutes, As needed, for ionized calcium level 3 to 3.4 mg/dL, Starting on Sat04/01/23 at 0408, Recheck ionized calcium 6 hours after infusion. Hold calcium replacement for phosphorus greater than 5.5 mg/dL. VESICANT (RED) dextrose (GLUTOSE) 40 % gel 15 g 15 g, oral, As needed, low blood sugar, blood glucose less than 70 mg/dL, Starting on Sat04/01/23 at 0408, If patient conscious and taking PO. If blood glucose is not greater than 70 mg/dL after initial treatment, repeat treatment. dextrose 5 % (D5W) infusion 100 mL/hr, intravenous, Continuous PRN, blood glucose less than 70 mg/dL, Starting on Sat04/01/23 at 0408, Use immediately following dextrose 50% or glucagon treatment for patients who are unconscious or NPO. Contact prescriber for additional orders. If blood glucose is not greater than 70 mg/dL after initial treatment, repeat treatment. dextrose 50 % in water (D50W) 50% solution 25 mL 25 mL, intravenous, As needed, low blood sugar, blood glucose less than 70 mg/dL and unconscious or NPO with IV access, Starting on Sat04/01/23 at 0408, Push over 1-3 minutes STAT. If conscious and not NPO, immediately follow with meal tray or high protein (7 grams) snack if tray not available. If NPO, initiate 5% dextrose in water at 100 mL/hr and contact prescriber for additional orders. If blood glucose is not greater than 70 mg/dL after initial treatment, repeat treatment. VESICANT (RED) Warning: HYPERTONIC solution. glucagon HCL injection 1 mg 1 mg, intramuscular, As needed, low blood sugar, blood glucose less than 70 mg/dL and unconscious or NPO without IV access., Starting on Sat04/01/23 at 0408, If conscious and not NPO, immediately follow with meal tray or high protein (7Grams) snack if tray not available. If NPO, initiate IV 5% Dextrose/Water at 100 mL/hr and contact prescriber for additional orders. If blood glucose is not greater than 70 mg/dL after initial treatment, repeat treatment. hydrALAZINE (APRESOLINE) injection 10 mg 10 mg, intravenous, Every 4 hours PRN, high blood pressure, blood pressue outside of parameters as detailed in Admin Instructions, Starting on Sat04/01/23 at 0409, For systolic blood pressure greater than 140 mmHg or diastolic blood pressure greater than 90 mmHg. May repeat times 1 dose after 5 minutes for a total of 20 mg every 4 hours. Administer at a rate of 5 mg/minute. Use if heart rate less than 60 bpm. Notify prescriber if not at goal blood pressure after 2 consecutive doses.Notify provider if systolic blood pressure is less than 90 mm Hg or Diastolic blood pressure is less than 40 mm Hg Look-alike/sound-alike medication - verify indication for use. Administer IV doses as a slow IV push; maximum rate: 5 mg/minute. 0928 (Given - Provider: Jose J López RN) hydrALAZINE (APRESOLINE) injection 5 mg 5 mg, intravenous, Every 10 min PRN, high blood pressure, systolic blood pressure greater than 160 mmHg, Starting on Lety 04/11/23 at 1503, PACU (only), Maximum dose of hydrALAZINE (APRESOLINE) is 20 mg while in PACU Look-alike/sound-alike medication - verify indication for use. Administer IV doses as a slow IV push; maximum rate: 5 mg/minute. ipratropium-albuteroL (DUONEB) 0.5 mg-3 mg(2.5 mg base)/3 mL nebulizer solution 3 mL 3 mL, nebulization, Every 4 hours PRN, wheezing, Starting on Lety 04/04/23 at 0852, Implement INPATIENT/ED Bronchodilator Clinical Practice Guidelines? Yes, Document: \phsi.[facility].org\epic\EP IC_Reference\Orders\Respirat ory Care Guidelines\CPG Bronchodilator 2020.pdf labetaloL (NORMODYNE,TRANDATE) injection 10 mg 10 mg, intravenous, Every 5 min PRN, high blood pressure, blood pressure outside of parameters as detailed in Admin Instructions, Starting on Sat04/01/23 at 0409, For systolic blood pressure greater than 140 mmHg or diastolic blood pressure greater than 90 mmHg. May repeat 3 times in one hour. Administer 10 mg IVP over 1 minute. Use if heart rate is 60 bpm or greater. Notify prescriber if not at goal blood pressure after 3 consecutive doses. Notify provider if systolic blood pressure is less than 90 mm Hg or Diastolic blood pressure is less than 40 mm Hg Look-alike/sound-alike medication - verify indication for use. labetaloL (NORMODYNE,TRANDATE) injection 5 mg 5 mg, intravenous, Every 5 min PRN, high blood pressure, systolic blood pressure greater than 160 mmHg and heart rate greater than 60 beats per minute, Starting on Lety 04/11/23 at 1503, PACU (only), Maximum dose of labetalol (TRANDATE) is 20 mg while in PACU Look-alike/sound-alike medication - verify indication for use. magnesium sulfate IVPB 2000 mg/50 mL in iso-osmotic water (40 mg/mL premix)(Linked Group 2) 2,000 mg, intravenous, at 25 mL/hr, Administer over 120 Minutes, As needed, for magnesium level 1.7 to 1.9 mg/dL or ionized magnesium level 0.45 to 0.5 mmol/L, Starting on Sat04/01/23 at 0408, Use premix solution. Default to ionized magnesium level in cases where patient has both magnesium and ionized magnesium results. If administered, check ionized magnesium (or total magnesium if ionized magnesium unavailable) level 4 hours after infusion. magnesium sulfate IVPB 4000 mg/100 mL in iso-osmotic water (40 mg/mL premix)(Linked Group 2) 4,000 mg, intravenous, at 25 mL/hr, Administer over 240 Minutes, As needed, for magnesium level 1.6 mg/mL or less, or ionized magnesium level 0.44 mmol/L or less, Starting on Sat04/01/23 at 0408, Use premix solution. Default to ionized magnesium level in cases where patient has both magnesium and ionized magnesium results. If administered, check ionized magnesium (or total magnesium if ionized magnesium unavailable) level 4 hours after infusion. melatonin (CIRCADIN) tablet 6 mg 6 mg, nasogastric, Nightly PRN, sleep, Starting on Sat04/10/23 at 0946 metoprolol (LOPRESSOR) injection 2.5 mg 2.5 mg, intravenous, Every 5 min PRN, high blood pressure, systolic blood pressure greater than 160 mmHg and heart rate greater than 60 beats per minute, Starting on Lety 04/11/23 at 1503, PACU (only), Maximum dose of metoprolol (LOPRESSOR) is 10 mg while in PACU Look-alike/sound-alike medication - verify indication for use. ondansetron (PF) (ZOFRAN) injection 4 mg 4 mg, intravenous, Every 6 hours PRN, nausea, vomiting, Starting on Sat04/01/23 at 1603, Administer over 2-5 minutes. ondansetron (PF) (ZOFRAN) injection 4 mg 4 mg, intravenous, Once as needed, nausea, Starting on Lety 04/11/23 at 1503, For 1 dose, PACU (only), Administer over 2-5 minutes. potassium chloride (K-TAB,KLOR-CON) CR tablet 20-50 mEq(Linked Group 3) 20-50 mEq, oral, As needed, for potassium replacement, Starting on Sat04/01/23 at 0408, Progress to oral potassium replacement when patient tolerating oral intake. If dose administered, recheck potassium level 4 hours after last dose. For potassium level 3.4 to 3.8 mmol/L and Serum Creatinine 1.2 or less=30 mEq. For potassium level 3.1 to 3.3 mmol/L and Serum Creatinine 1.2 or less=40 mEq. For potassium level 3 mmol/L or less and Serum Creatinine 1.2 or less=50 mEq. For potassium level 3.4 to 3.8 mmol/L and Serum Creatinine greater than 1.2=20 mEq. For potassium level 3.1 to 3.3 mmol/L and Serum Creatinine greater than 1.2=30 mEq. For potassium level 3 mmol/L or less and Serum Creatinine greater than 1.2=40 mEq. Do not crush or chew. potassium chloride (KAYCIEL) 20 mEq/15 mL solution 20-50 mEq(Linked Group 3) 20-50 mEq, oral, As needed, potassium replacement, Starting on Sat04/01/23 at 0408, Progress to oral potassium replacement when patient tolerating oral intake. If dose administered, recheck potassium level 4 hours after last dose. For potassium level 3.4 to 3.8 mmol/L and Serum Creatinine 1.2 or less=30 mEq (22.5mL). For potassium level 3.1 to 3.3 mmol/L and Serum Creatinine 1.2 or less=40 mEq (30mL). For potassium level 3 mmol/L or less and Serum Creatinine 1.2 or less=50 mEq (37.5mL). For potassium level 3.4 to 3.8 mmol/L and Serum Creatinine greater than 1.2=20 mEq (15mL). For potassium level 3.1 to 3.3 mmol/L and Serum Creatinine greater than 1.2=30 mEq (22.5mL). For potassium level 3 mmol/L or less and Serum Creatinine greater than 1.2=40 mEq (30mL). Must dilute before use - Mix in 3-8 ounces of water or juice before administration When administering in feeding tube, flush before and after per policy and monitor potassium levels potassium chloride IVPB 10 mEq/100 mL in water (0.1 mEq/mL premix)(Linked Group 4) 10 mEq, intravenous, at 100 mL/hr, Administer over 60 Minutes, As needed, for potassium replacement, Starting on Sat04/01/23 at 0408, Administer Potassium Chloride IVPB in 10 mEq increments. Maximum infusion rates: Central Line = 20 mEq/hour; Peripheral Line = 10 mEq/hour (10 mEq/100 mL). If dose administered, recheck potassium level 1 hour after infusion complete. For potassium level 3.4 to 3.8 mmol/L and Serum Creatinine 1.2 or less = 30 mEq For potassium level 3.1 to 3.3 mmol/L and Serum Creatinine 1.2 or less = 40 mEq For potassium level 3 mmol/L or less and Serum Creatinine 1.2 or less = 50 mEq For potassium level 3.4 to 3.8 mmol/L and Serum Creatinine greater than 1.2 = 20 mEq For potassium level 3.1 to 3.3 mmol/L and Serum Creatinine greater than 1.2 = 30 mEq For potassium level 3 mmol/L or less and Serum Creatinine greater than 1.2 = 40 mEq VESICANT (YELLOW) Infuse each 10 mEq over a minimum of 1 hour. potassium chloride IVPB 10 mEq/50 mL in water (0.2 mEq/mL premix)(Linked Group 4) 10 mEq, intravenous, at 50 mL/hr, Administer over 1 Hours, As needed, for potassium replacement, Starting on Sat04/01/23 at 0408, Administer Potassium Chloride IVPB in 10 mEq increments. Maximum infusion rates: Central Line = 20 mEq/hour. Administer via Central Line Only. If dose administered, recheck potassium level 1 hour after infusion complete. For potassium level 3.4 to 3.8 mmol/L and Serum Creatinine 1.2 or less = 30 mEq For potassium level 3.1 to 3.3 mmol/L and Serum Creatinine 1.2 or less = 40 mEq For potassium level 3 mmol/L or less and Serum Creatinine 1.2 or less = 50 mEq For potassium level 3.4 to 3.8 mmol/L and Serum Creatinine greater than 1.2 = 20 mEq For potassium level 3.1 to 3.3 mmol/L and Serum Creatinine greater than 1.2 = 30 mEq For potassium level 3 mmol/L or less and Serum Creatinine greater than 1.2 = 40 mEq VESICANT (YELLOW) saliva stimulant comb. no.3 (BIOTENE) solution 1 spray 1 spray, oral, As needed, dry mouth, Starting on Sat04/09/23 at 0928 sod phos di, mono-K phos mono (K-PHOS NEUTRAL) 250 mg tablet 2 tablet(Linked Group 5) 2 tablet, oral, As needed, for phosphorous level 2.3 mg/dL or less, Starting on Sat04/01/23 at 0408, If dose administered, recheck phosphorus level 4 hours after last dose. Look-alike/sound-alike medication - verify indication for use. Give with a full glass of water. sodium chloride 0.9 % infusion 10 mL/hr, intravenous, Continuous PRN, to maintain patency of lines, Starting on Sat04/01/23 at 0408, Line #1 sodium chloride 0.9 % infusion 10 mL/hr, intravenous, Continuous PRN, to maintain patency of lines, Starting on Sat04/01/23 at 0408, Line #2 sodium chloride 0.9 % infusion 10 mL/hr, intravenous, Continuous PRN, to maintain patency of lines, Starting on Sat04/01/23 at 0408, Line #3 sodium phosphate 20 mmol in sodium chloride 0.9 % 100 mL IVPB(Linked Group 5) 20 mmol, intravenous, at 26.7 mL/hr, Administer over 4 Hours, As needed, for phosphorous level 2.3 mg/dL or less, Starting on Sat04/01/23 at 0408, Administer over 4 hours via dedicated line(central line). If administered, recheck phosphorus level 4 hours after infusion complete. Infuse using central line access. sodium phosphate 20 mmol in sodium chloride 0.9 % 250 mL IVPB(Linked Group 5) 20 mmol, intravenous, at 42.8 mL/hr, Administer over 6 Hours, As needed, for phosphorous level 2.3 mg/dL or less, Starting on Sat04/01/23 at 0408, Administer over 6 hours via dedicated line (peripheral line). If administered, recheck phosphorus level 4 hours after infusion complete. Linked Groups Order Group 1: calcium gluconate IVPB 1000 mg/50 mL (20 mg/mL premix)Jump to med 1,000 mg, intravenous, at 50 mL/hr, Administer over 60 Minutes, As needed, for ionized calcium level 3.5 to 4.4 mg/dL, Starting on Sat04/01/23 at 0408, Recheck ionized calcium 6 hours after infusion. Hold calcium replacement for phosphorus greater than 5.5 mg/dL. VESICANT (RED) Or calcium gluconate IVPB 2000 mg/100 mL (20 mg/mL premix)Jump to med 2,000 mg, intravenous, at 100 mL/hr, Administer over 60 Minutes, As needed, for ionized calcium level 3 to 3.4 mg/dL, Starting on Sat04/01/23 at 0408, Recheck ionized calcium 6 hours after infusion. Hold calcium replacement for phosphorus greater than 5.5 mg/dL. VESICANT (RED) Or calcium gluconate 3,000 mg in sodium chloride 0.9 % 100 mL IVPBJump to med 3,000 mg, intravenous, at 130 mL/hr, Administer over 60 Minutes, As needed, for ionized calcium level less than 3 mg/dL, Starting on Sat04/01/23 at 0408, CALL PHYSICIAN if this dose is administered. Recheck ionized calcium 6 hours after infusion. Hold calcium replacement for phosphorus greater than 5.5 mg/dL. VESICANT (RED) Group 2: magnesium sulfate IVPB 2000 mg/50 mL in iso-osmotic water (40 mg/mL premix)Jump to med 2,000 mg, intravenous, at 25 mL/hr, Administer over 120 Minutes, As needed, for magnesium level 1.7 to 1.9 mg/dL or ionized magnesium level 0.45 to 0.5 mmol/L, Starting on Sat04/01/23 at 0408, Use premix solution. Default to ionized magnesium level in cases where patient has both magnesium and ionized magnesium results. If administered, check ionized magnesium (or total magnesium if ionized magnesium unavailable) level 4 hours after infusion. Or magnesium sulfate IVPB 4000 mg/100 mL in iso-osmotic water (40 mg/mL premix)Jump to med 4,000 mg, intravenous, at 25 mL/hr, Administer over 240 Minutes, As needed, for magnesium level 1.6 mg/mL or less, or ionized magnesium level 0.44 mmol/L or less, Starting on Sat04/01/23 at 0408, Use premix solution. Default to ionized magnesium level in cases where patient has both magnesium and ionized magnesium results. If administered, check ionized magnesium (or total magnesium if ionized magnesium unavailable) level 4 hours after infusion. Group 3: potassium chloride (K-TAB,KLOR-CON) CR tablet 20-50 mEqJump to med 20-50 mEq, oral, As needed, for potassium replacement, Starting on Sat04/01/23 at 0408, Progress to oral potassium replacement when patient tolerating oral intake. If dose administered, recheck potassium level 4 hours after last dose. For potassium level 3.4 to 3.8 mmol/L and Serum Creatinine 1.2 or less=30 mEq. For potassium level 3.1 to 3.3 mmol/L and Serum Creatinine 1.2 or less=40 mEq. For potassium level 3 mmol/L or less and Serum Creatinine 1.2 or less=50 mEq. For potassium level 3.4 to 3.8 mmol/L and Serum Creatinine greater than 1.2=20 mEq. For potassium level 3.1 to 3.3 mmol/L and Serum Creatinine greater than 1.2=30 mEq. For potassium level 3 mmol/L or less and Serum Creatinine greater than 1.2=40 mEq. Do not crush or chew. Or potassium chloride (KAYCIEL) 20 mEq/15 mL solution 20-50 mEqJump to med 20-50 mEq, oral, As needed, potassium replacement, Starting on Sat04/01/23 at 0408, Progress to oral potassium replacement when patient tolerating oral intake. If dose administered, recheck potassium level 4 hours after last dose. For potassium level 3.4 to 3.8 mmol/L and Serum Creatinine 1.2 or less=30 mEq (22.5mL). For potassium level 3.1 to 3.3 mmol/L and Serum Creatinine 1.2 or less=40 mEq (30mL). For potassium level 3 mmol/L or less and Serum Creatinine 1.2 or less=50 mEq (37.5mL). For potassium level 3.4 to 3.8 mmol/L and Serum Creatinine greater than 1.2=20 mEq (15mL). For potassium level 3.1 to 3.3 mmol/L and Serum Creatinine greater than 1.2=30 mEq (22.5mL). For potassium level 3 mmol/L or less and Serum Creatinine greater than 1.2=40 mEq (30mL). Must dilute before use - Mix in 3-8 ounces of water or juice before administration When administering in feeding tube, flush before and after per policy and monitor potassium levels Group 4: potassium chloride IVPB 10 mEq/50 mL in water (0.2 mEq/mL premix)Jump to med 10 mEq, intravenous, at 50 mL/hr, Administer over 1 Hours, As needed, for potassium replacement, Starting on Sat04/01/23 at 0408, Administer Potassium Chloride IVPB in 10 mEq increments. Maximum infusion rates: Central Line = 20 mEq/hour. Administer via Central Line Only. If dose administered, recheck potassium level 1 hour after infusion complete. For potassium level 3.4 to 3.8 mmol/L and Serum Creatinine 1.2 or less = 30 mEq For potassium level 3.1 to 3.3 mmol/L and Serum Creatinine 1.2 or less = 40 mEq For potassium level 3 mmol/L or less and Serum Creatinine 1.2 or less = 50 mEq For potassium level 3.4 to 3.8 mmol/L and Serum Creatinine greater than 1.2 = 20 mEq For potassium level 3.1 to 3.3 mmol/L and Serum Creatinine greater than 1.2 = 30 mEq For potassium level 3 mmol/L or less and Serum Creatinine greater than 1.2 = 40 mEq VESICANT (YELLOW) Or potassium chloride IVPB 10 mEq/100 mL in water (0.1 mEq/mL premix)Jump to med 10 mEq, intravenous, at 100 mL/hr, Administer over 60 Minutes, As needed, for potassium replacement, Starting on Sat04/01/23 at 0408, Administer Potassium Chloride IVPB in 10 mEq increments. Maximum infusion rates: Central Line = 20 mEq/hour; Peripheral Line = 10 mEq/hour (10 mEq/100 mL). If dose administered, recheck potassium level 1 hour after infusion complete. For potassium level 3.4 to 3.8 mmol/L and Serum Creatinine 1.2 or less = 30 mEq For potassium level 3.1 to 3.3 mmol/L and Serum Creatinine 1.2 or less = 40 mEq For potassium level 3 mmol/L or less and Serum Creatinine 1.2 or less = 50 mEq For potassium level 3.4 to 3.8 mmol/L and Serum Creatinine greater than 1.2 = 20 mEq For potassium level 3.1 to 3.3 mmol/L and Serum Creatinine greater than 1.2 = 30 mEq For potassium level 3 mmol/L or less and Serum Creatinine greater than 1.2 = 40 mEq VESICANT (YELLOW) Infuse each 10 mEq over a minimum of 1 hour. Group 5: sodium phosphate 20 mmol in sodium chloride 0.9 % 250 mL IVPBJump to med 20 mmol, intravenous, at 42.8 mL/hr, Administer over 6 Hours, As needed, for phosphorous level 2.3 mg/dL or less, Starting on Sat04/01/23 at 0408, Administer over 6 hours via dedicated line (peripheral line). If administered, recheck phosphorus level 4 hours after infusion complete. Or sodium phosphate 20 mmol in sodium chloride 0.9 % 100 mL IVPBJump to med 20 mmol, intravenous, at 26.7 mL/hr, Administer over 4 Hours, As needed, for phosphorous level 2.3 mg/dL or less, Starting on Sat04/01/23 at 0408, Administer over 4 hours via dedicated line(central line). If administered, recheck phosphorus level 4 hours after infusion complete. Infuse using central line access. Or sod phos di, mono-K phos mono (K-PHOS NEUTRAL) 250 mg tablet 2 tabletJump to med 2 tablet, oral, As needed, for phosphorous level 2.3 mg/dL or less, Starting on Sat04/01/23 at 0408, If dose administered, recheck phosphorus level 4 hours after last dose. Look-alike/sound-alike medication - verify indication for use. Give with a full glass of water. FOR RECORDS PERTAINING TO PATIENTS WHO ARE [...] BE BASED ON THE PRIMARY CLINICAL RECORDS. [employer] provides no warranty or guarantee of the accuracy or completeness of information in this document.
[2023-04-28] MEDS: ACETAMINOPHEN 650 MG RECTAL SUPPOSITORY PR (14:01)
[2023-04-28 14:23] LABS: Basophils Percent Auto 0.3 % (0.2-2.0); Eosinophils Absolute Auto 0.2 10^3/uL (0.0-0.7); Eosinophils Percent Auto 2.1 % (0.9-7.0); Hematocrit 33.7 % (36.0-48.0); Hemoglobin 11.1 g/dL (12.0-16.0); Immature Granulocytes Abs Auto 0.05 10^3/uL (0.00-0.03); Immature Granulocytes Pct Auto 0.6 % (0.0-0.5); Lymphocytes Absolute Auto 0.7 10^3/uL (1.2-3.8); Lymphocytes Percent Auto 8.7 % (20.5-60.0); Mean Corpuscular HGB Conc 32.9 g/dL (29.9-35.2); Mean Corpuscular Hemoglobin 28.7 pg (26.7-34.0); Mean Corpuscular Volume 87.1 fL (81.0-99.0); Monocytes Absolute Auto 0.8 10^3/uL (0.3-0.8); Monocytes Percent Auto 9.4 % (1.7-12.0); Neutrophils Absolute Auto 6.3 10^3/uL (1.4-6.5); Neutrophils Percent Auto 78.9 % (43.0-75.0); Platelet Count 86 10^3/uL (150-450); Red Blood Count 3.87 10^6/uL (4.20-5.40); Red Cell Distribution Width 14.8 % (11.0-15.0); White Blood Count 7.9 10^3/uL (4.0-11.0)
[2023-04-28 14:34] LABS: Anion Gap 12.8; BUN Creatinine Ratio 47.7; Calcium 9.2 mg/dL (8.5-10.1); Carbon Dioxide 28.2 mmol/L (21.0-32.0); Chloride 102 mmol/L (98-107); Estimated GFR (African America >60 (>=60); Estimated GFR (Non-African Ame >60 (>=60); Glucose 121 mg/dL (74-106); Sodium 138 mmol/L (136-145)
[2023-04-28 14:36] LABS: Influenza Virus A Antigen Negative; Influenza Virus B Antigen Negative; Internal Control Within Normal Limits; SARS-CoV-2 Ag NEGATIVE (NEGATIVE)
--- NOTE | 2023-04-28 15:00 | PC.NURSE ---
In to reassess patient, spouse and grandson at bedside. Grandson, Rocky, is on the phone and states hey hold on to family member on phone and places phone into his sweatshirt front pocket. Family asking this RN multiple questions. Family asked if ER doctor would order a CT scan and an MRI to check the size of brain bleed. This RN stated to family that Dr. Mahan states it is not necessary at this time, education provided that [facility], family [facility]. Family states understanding. Family asked this RN when do you think she will be able to walk and talk to us again, this RN stated that is not something that is guaranteed that every patient is different, from my experience it is a difficult thing to do after being symptomatic for long periods of time but that is something to [facility]. Family asked about code status. Education provided to family the difference between being a full code and CCA, extensive education provided to family that CCA is more focused on making sure that the patient is comfortable and full code is when the medical staff is going to do all that they can to attempt to save the patients life. Family asked if the ER staff would do everything they can to save the patient today. Education given that patient had a large amount of mucus in the back of her throat that was causing discomfort, this RN did an extensive amount of oral care and patient is maintaining airway with an oxygen saturation of 95% and higher and that nothing is necessary at this time. Family asked what the medication is that is given during a stroke. Family education that patient had a brain bleed, not a clot, that with certain clots and time frames RNs can give a medication that can dissolve a clot but it is not a guaranteed thing either. Family asked this RN is the doctors would do surgery to help with the brain bleed. This RN states oh that is not up to me to decide that is something to talk to her Neuro doctor or Dr. Malloy. Spouse states well [facility] told us that she is too high risk for surgery. This RN states well if she was high risk then, she most likely is still high risk but that is not up to me or this ER doctor, that is something you should talk to Dr. Malloy or the [facility] doctor about. Family states patient is more reactive today than she has been in a long time. This RN states well dont be afraid to hold her hand and talk to her. Yuni noticed her right arm is flaccid so hold the left just in case she doesnt have much feeling in the right arm. Family stated thank you numerous times and that these questions have not been answered since the start in Mar 31. This RN states if you have any other further questions, please don't hesitate to ask me. I know that medical can be heart breaking and hard to respect wishes. Rocky stated to this RN, if Roula calls she can be very aggressive and rude to staff members so let me know if she calls and I will handle it. This RN told Rocky that Roula has called twice, Rocky states sorry about that, I will talk to her. This RN stated ok and to place call light if they think of any other questions. Family stated thank you to this RN once again.
--- NOTE | 2023-04-28 15:57 | PC.NURSE ---
Report called to ELIZABETH Rogers at the [facility]. ETA for transport is 430 PM, nurse aware of transport time.
== END 2023-04-28 16:30 | disposition home or self-care (01) ==
PROVIDERS: Emergency Provider Emergency Medicine; PCP Family Medicine
DX: R06.00 Dyspnea, unspecified (principal); I69.220 Aphasia following other nontraumatic intracranial hemorrhage; Z79.82 Long term (current) use of aspirin; Z79.899 Other long term (current) drug therapy; F17.210 Nicotine dependence, cigarettes, uncomplicated; Z20.822 Contact with and (suspected) exposure to COVID-19
CPT/HCPCS: 36415; 71045; 80048; 81001; 85025; 87040; 87804; 87811; 93005; 99285

== ENCOUNTER 2023-06-11 07:34 | Observation (INO) | payer MEDICARE, OTHER, SELFPAY ==
[2023-06-11] VITALS (112 sets, daily range): BP systolic 109–154; BP diastolic 74–104; PULSE 62–95; RESP 10–33; TEMP 36.3–37.1; O2SAT 92–97; BMI 27.4; BMI 22.5
--- NOTE | 2023-06-11 07:35 | ECG_ITS ---
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
--- NOTE | 2023-06-11 07:35 | CT_ITS ---
[address] [address] Patient Name: SMITHA CHAN MRN: [id number] date: 1945 Sex: F Assigned Patient Location: ER Current Patient Location: ER Accession/Order Number: [id number] Exam Date: 06/11/2023 08:28 Report Date: 06/11/2023 09:28 At the request of: DULCE LEWIS Procedure: CT angio abdomen pelvis EXAMINATION: CT angio abdomen pelvis HISTORY: GI Bleed , rectal bleeding, nausea, vomiting COMPARISON: No relevant comparison available. TECHNIQUE: Axial, Coronal, and Sagittal CT images without and with IV contrast. Multi-planar/3-D imaging to optimize visualization of vascular anatomy. Dose reduction techniques were achieved by using automated exposure control and/or adjustment of mA and/or kV according to patient size and/or use of iterative reconstruction technique. 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 Aneurysm of the suprarenal dominant aorta measuring up to 3.7 cm. Aneurysm of the infrarenal abdominal aorta measuring up to 4.2 cm. Endograft in the thoracic aorta. Aortobiiliac endograft, patent. CELIAC ARTERY: No flow significant stenosis occlusion or aneurysm SMA: No flow significant stenosis occlusion or aneurysm Renals: Single right renal artery with ostial narrowing estimated to be 80%, axial image 71. Single left renal artery with ostial stenosis estimated to be 70-80% FLORES: Not visualized Iliacs: Patent bilateral common iliac artery stents. 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 Dissection demonstrated in the distal right external iliac artery extending into the right common femoral artery. Patent left common, internal and external iliac arteries. Extensive atherosclerosis . LUNG BASES: No visible pulmonary or pleural disease. LIVER: No enlargement, atrophy, abnormal density, or significant focal lesion. BILIARY: Surgical clips from cholecystectomy PANCREAS: Mild diffuse atrophy SPLEEN: No enlargement or focal lesion. ADRENALS: No mass or enlargement. KIDNEYS: Bilateral renal cortical and parapelvic cysts BOWEL/MESENTERY: Concentric wall thickening of the distal sigmoid colon and rectum with surrounding mesenteric stranding and free fluid in the presacral space. Underlying colonic diverticulosis without evidence of acute diverticulitis percutaneous gastrostomy tube in normal position. Nonobstructive bowel gas pattern. Normal appendix. RETROPERITONEUM: No mass or adenopathy. LYMPH NODES: No adenopathy. URINARY BLADDER: Balloon catheter normally positioned PELVIC ORGANS: No visible mass. Pelvic organs appropriate for patient age. ABDOMINAL WALL: Hysterectomy BONES: No bony lesion or fracture. OTHER: Linear hyperdensities identified in the lower rectum best visualized on axial images 200 through 208 suspicious for active extravasation on images 202-205 CT/CT angio abdomen pelvis IMPRESSION: Suspected active arterial extravasation in the rectum detailed above Rectal wall thickening with surrounding inflammatory changes and fluid in the presacral space. Consider ischemic colitis given the limited territory Extensive atherosclerosis detailed above with thoracic, abdominal and right common iliac artery aneurysms Electronically authenticated by: ARIANNE QUINTANILLA Date: 06/11/2023 09:28
--- OUTSIDE RECORDS SUMMARY | 2023-06-11 07:48 | XMS_ITS | CCD ---
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 Name Role Phone LEON BADILLO Attending Unavailable LEON BADILLO Admitting Unavailable NITHYA BROWN Referring Unavailable NITHYA BROWN Primary Care Unavailable MD Nithya Brown Primary Care Provider MD Kate Mane Attending Provider DR NITHYA BROWN Primary Care Unavailable GASTON [...] Brown Unavailable NITHYA BROWN Primary Care Physician Nayely Lizama Unavailable Unavailable Teresa Kate Unavailable MD Nithya [...] Attending Unavailable Nithya Brown Primary Care Unavailable Calvey, Kate R Admitting Unavailable Calvashley, Kate R Attending Unavailable Nithya Brown Primary Care Unavailable Teresa, Kate R Admitting Unavailable Kate Mane R Attending Unavailable Nithya Brown Primary Care Unavailable Kate Mane R Attending Unavailable Tracie Maneen R Admitting Unavailable Nithya Brown Primary Care Unavailable Kate Mane R Attending Unavailable Tracie Maneen R Admitting Unavailable Nithya Brown Primary Care Unavailable Nithya Brown MD Primary Care Provider Nithya Brown MD Primary Care Provider [phone] PATI, WILLARD F Admitting Unavailable PATI, WILLARD F Attending Unavailable JACK FAJARDO Referring Unavailable NITHYA BROWN Primary Care Unavailable DULCE AGARWAL Consulting Unavailable CHRISTINA FREITAS Consulting Unavailable JAZMINE NUNEZ Consulting Unavailable ([facility] ONLY), SURGERY B Consulting UnavailMICHELE Lopez Consulting Unavailable AGATHA EDEN Consulting Unavailable KISHORE NEFF OSORIO Consulting Unavailab RY Crow Referring Unavailable NITHYA BROWN Primary Care Unavailable ALEIDA SCHULTZ Referring Unavailable NITHYA BROWN Primary Care Unavailable JORDAN HASSAN Referring Unavailable NITHYA BROWN Primary Care Unavailable GHARAIBEH, KHALED Referring Unavailable NITHYA BROWN Primary Care Unavailable GHARAIBEH, KHALED Referring Unavailable NITHYA BROWN Primary Care Unavailable GHARAIBEH, KHALED Referring Unavailable BROWN, NITHYA E Primary Care Unavailable ALI, AIZAZ Referring Unavailable BROWN, NITHYA E Primary Care Unavailable KAMILAH MAYSALED Referring Unavailable BROWN, NITHYA E Primary Care [...] Care Unavailable MAI HO Referring Unavailable BROWN, NITHYA E Primary Care Unavailable CHEN LLOYD Referring Unavailable BROWN, NITHYA E Primary Care Unavailable HASEEB MCNAMARA Referring Unavailable BROWN, NITHYA E Primary Care Unavailable DAE BO Attending Unavailable DAE BO Referring Unavailable BROWN, NITHYA E Primary Care Unavailable WON WEBSTER Attending Unavailable BROWN, NITHYA E Primary Care Unavailable OKSANA BAL Referring Unavai lable BORWN, NITHYA E Primary Care Unavailable WILLARD KRUEGER Referring Unavailable BROWN, NITHYA E Primary Care Unavailable FARZANA WU Attending Unavailable BROWN, NITHYA E Referring Unavailable BROWN, NITHYA E Primary Care Unavailable BROWN, NITHYA E Referring Unavailable BROWN, NITHYA E Primary Care Unavailable BROWN, NITHYA E Referring Unavailable BROWN, NITHYA E Primary Care Unavailable Allergies Allergy Classification Reported Allergen(s) Allergy Type Date of Onset Reaction(s) Facility (2 sources) Acetaminophen / oxyCODONE Drug Allergy 08-19-19 15 [facility] (2 sources) Alendronate Drug Allergy 08-19-19 15 [facility] (2 sources) Bacitracin / Neomycin / Polymyxin B Drug Allergy 04-10-19 15 [facility] (4 sources) Bee/Wasp/Ant venom; Translations: [bee stings] Propensity to adverse reactions (disorder) 07-02-19 19 Edema [facility] (2 sources) Ciprofloxacin Drug Allergy 08-19-19 15 [facility] (2 sources) nickel; Translations: [nickel] Drug Allergy 08-19-19 15 [facility] (1 source) oxyCODONE Drug Allergy 07-04-19 22 [facility] (17 sources) Bacitracin; Translations: [Bacitracin] Drug Allergy 11-29-19 13 Rash, Unknown [facility] (20 sources) Ciprofloxacin; Translations: [ciprofloxacin] Drug Allergy 08-18-19 15 Headache [facility] (8 sources) Neomycin; Translations: [Neomycin] Drug Allergy 04-30-19 23 Rash, Unknown [facility] (5 sources) polymyxin B; Translations: [polymyxin B] Allergy to substance 04-30-19 Rash [facility] (5 sources) venom-wasp; Translations: [venom-wasp] Allergy to substance 04-30-19 Anaphylaxis [facility] (1 source) bee venom Drug allergy (disorder) 08-19-19 15 [facility] (11 sources) Acetaminophen / oxyCODONE; Translations: [acetaminophen-ox ycodone] Drug Allergy 08-18-19 15 Unknown [facility] (13 sources) Alendronate; Translations: [alendronate] Drug Allergy 11-29-19 13 Unknown, Comment:Freete xt Needs Updated. [facility] (10 sources) bacitracin / neomycin / polymyxin b; Translations: [bacitracin/neomy joaquin/polymyxin B topical] Drug Allergy 05-11-19 20 Blisters [facility] (20 sources) oxyCODONE; Translations: [oxycodone] Drug Allergy 11-01-19 19 Headache [facility] (8 sources) Substance with penicillin structure and antibacterial mechanism of action (substance) Drug allergy 11-29-19 13 Unknown [facility] (8 sources) Bee Sting Drug allergy 11-29-19 13 Unknown [facility] (8 sources) Neosporin + Pain Relief [facility] *DERMATOLOGICALS* Propensity to adverse reactions 11-29-19 13 Unknown [facility] Other (8 sources) Allergies Reconciled Propensity to adverse reactions Unknown [facility] Other (8 sources) patient allergy list reviewed by nurse or physicia Propensity to adverse reactions 11-29-19 13 Comment:Done [facility] Other (7 sources) Alendronate Drug Allergy 05-11-19 [facility] (9 sources) BEE VENOM PROTEIN (HONEY BEE); Translations: [BEE VENOM PROTEIN (HONEY BEE)] Propensity to adverse reactions to drug 05-26-19 [facility] (2 sources) NEOMYCIN-BACITRAC NZN-POLYMYXNB; Translations: [NEOMYCIN-BACITRA CNZN-POLYMYXNB] Propensity to adverse reactions to drug (disorder) 05-11-19 [facility] Medications Current Medications Medication Drug Class(es) Dates [...] aspirin 81 mg delayed release oral tablet (17 sources) Platelet Aggregation Inhibitor, Nonsteroidal Anti-inflammatory Drug [...] day Active carvedilol 25 mg oral tablet (16 sources) alpha-Adrenergic Yoselin, beta-Adrenergic Yoselin Start: 04-13-2023 [...] Twice daily 10 April 30, 2022 1:00am [id number] 0.3 ml EPINEPHrine 1 mg/ml auto-injector (6 [...] kenji Active lisinopril 40 mg oral tablet (16 sources) Angiotensin Converting Enzyme Inhibitor Start: 04-16-2023 [...] INPATIENT/ED Bronchodilator Clinical Practice Guidelines? Yes, Document: \[employer]\epic\EPIC_Reference\Orders\Re spiratory Care Guidelines\CPG Bronchodilator 2020.pdf Start: 04-04-2023 End: 04-17-2023 take 3 mL by inhalation every four hours as needed for wheezing 3 mL, nebulization, Every 4 hours PRN, wheezing, Starting on Sat04/04/23 at 0852, Implement INPATIENT/ED Bronchodilator Clinical Practice Guidelines? Yes, Document: \[employer]\epic\EPIC_Reference\Orde rs\Respiratory Care Guidelines\CPG Bronchodilator 2020.pdf bisacodyl 10 [...] day docusate sodium 50 mg / sennosides, residential 8.6 mg oral tablet (1 source) Start: [...] End: 04-06-2023 40 mg, intravenous, Once, On 04/06/23 at 1245, For 1 dose, Look-alike/sound-alike medication [...] at 0946 methylPREDNISolone 4 mg oral tablet (14 sources) Corticosteroid Start: 06-20-2022 Medrol 4 MG as directed Orally 15 Jun, 2022 Not-Taking/PRN 5 ml metoprolol tartrate 1 mg/ml injection (20 sources) beta-Adrenergic Yoselin Start: 04-11-2023 End: 04-17-2023 2.5 mg, intravenous, Every 5 min PRN, high blood pressure, systolic blood pressure greater than 160 mmHg and heart rate greater than 60 beats per minute, Starting on Sat04/11/23 at 1503, PACU (only), Maximum dose of [...] mg/hr (10-30 mL/hr), intravenous, Continuous, Starting on Sat04/01/23 at 0415, Start at 5 mg/hr. Titrate [...] 1604, For 1 dose, Sample, Camacho: scott override Administer over 2-5 minutes. Start: 04-01-2023 End: 04-17-2023 take 4 mg intravenously every six hours as needed for nausea and vomiting 4 mg, intravenous, Every 6 hours PRN, nausea, vomiting, Starting on Sat04/01/23 at 1603, Administer over 2-5 minutes. 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, subcortical] Onset: 3 04-09-2023 Chronic Aortic; peripheral; and visceral artery aneurysms (20 sources) Thoracic aortic aneurysm, without rupture; Translations: [Aneurysm of artery of lower extremity] Onset: 9 Chronic Biliary tract disease (8 sources) Gallbladder calculus with acute cholecystitis and no obstruction; Translations: [Calculus of gallbladder with acute cholecystitis without obstruction] Episodic Cardiac dysrhythmias (1 source) Bradycardia, unspecified; Translations: [Bradycardia, unspecified] Onset: 3 Episodic Chronic obstructive pulmonary disease and bronchiectasis (16 sources) Acute exacerbation of chronic obstructive airways disease; Translations: [Chronic obstructive pulmonary disease with (acute) exacerbation] Onset: 8 Chronic Coagulation and hemorrhagic disorders (6 sources) Thrombocytopenic disorder; Translations: [Thrombocytopenia, unspecified] Chronic Disorders of lipid metabolism (16 sources) Mixed hyperlipidemia; Translations: [Mixed hyperlipidemia] Onset: 0 Chronic E Codes: Fall (1 source) Unspecified fall, initial encounter; Translations: [UNSPECIFIED FALL INITIAL ENCOUNTER] Onset: 3 Episodic Esophageal disorders (8 sources) Gastroesophageal reflux disease without esophagitis; Translations: [Gastro-esophageal reflux disease without esophagitis] Chronic Essential hypertension (13 sources) Essential hypertension; Translations: [Essential (primary) hypertension] Chronic Fracture of upper limb (18 sources) Fracture at wrist and/or hand level; Translations: [Fracture of unspecified carpal bone, right wrist, initial encounter for closed fracture] Onset: 3 04-30-2022 Episodic Gastrointestinal hemorrhage (1 source) Hemorrhage of anus and rectum Episodic Headache; including migraine (8 sources) Chronic migraine without aura, non-refractory; Translations: [Migraine without aura, not intractable, without status migrainosus] Chronic Inflammatory diseases of female pelvic organs (8 sources) Acute vaginitis; Translations: [Acute vaginitis] Episodic Menopausal disorders (8 sources) Menopause present; Translations: [Menopausal and female climacteric states] Chronic Osteoarthritis (8 sources) Osteoarthritis; Translations: [Unspecified osteoarthritis, unspecified site] Chronic Other aftercare (1 source) penitentiary (current) use of aspirin; Translations: [MEDICAL BILLING CLERK CURRENT USE OF ASPIRIN] Onset: 3 Episodic Other aftercare (1 source) Other terminal press operator (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) drug therapy; Translations: [OTH MEDICAL BILLING CLERK CURRENT DRUG THERAPY] Onset: 3 Episodic Other bone disease and musculoskeletal deformities (7 sources) Bone density finding; Translations: [Other specified disorders of bone density and structure, unspecified site] Episodic Other bone disease and musculoskeletal deformities (1 source) Other specified disorders of bone density and structure, unspecified site; Translations: [Oth disrd of bone density and structure, unspecified site] Episodic Other circulatory disease (7 sources) Elevated blood-pressure reading without diagnosis of hypertension; Translations: [Elevated blood-pressure reading, without diagnosis of hypertension] Episodic Other circulatory disease (1 source) Elevated blood-pressure reading, without diagnosis of hypertension; Translations: [Elevated blood-pressure reading, without diagnosis of hypertension] Episodic Other nervous system disorders (12 sources) Carpal tunnel syndrome of right wrist; Translations: [Carpal tunnel syndrome, right upper limb] Chronic Other nervous system disorders (3 sources) Carpal tunnel syndrome, right upper limb Chronic Other nervous system disorders (4 sources) Pain in limb; Translations: [Other acute postprocedural pain] 04-30-2022 Episodic Other non-epithelial cancer of skin (19 sources) Basal cell carcinoma of skin; Translations: [...] BREAST] Onset: 3 Episodic Other skin disorders (12 sources) Localized swelling, mass and lump, left lower limb; Translations: [LOC SWELL MASS LUMP LT LOWER LIMB] Onset: 2 Episodic Other skin disorders (8 sources) Changes in skin texture; Translations: [Changes in skin texture] Episodic Other upper respiratory disease (7 sources) Allergic rhinitis; Translations: [Allergic rhinitis, unspecified] Onset: 6 Chronic Other upper respiratory disease (1 source) Allergic rhinitis, unspecified; Translations: [Allergic rhinitis, unspecified] Onset: 6 Chronic Other upper respiratory infections (8 sources) Chronic sinusitis; Translations: [Chronic sinusitis, unspecified] Chronic Poisoning by nonmedicinal substances (9 sources) Toxic effect of venom of wasps, [...] MYELO-/RADICULOP LUMB] Onset: 3 Chronic Substance-related disorders (8 sources) Nicotine dependence; Translations: [Nicotine dependence, cigarettes, [...] Documented Date Episodic/Chronic Bacterial infection; unspecified site (8 sources) Bacterial infectious disease; Translations: [Bacterial infection, unspecified, in conditions classified elsewhere and of unspecified site] Onset: 05-30-2016 Episodic Immunizations and screening for infectious disease (8 sources) Vaccination given; Translations: [Encounter for immunization] Onset: 02-09-2016 Episodic Neoplasms of unspecified nature or uncertain behavior (7 sources) Neoplasm of uncertain behavior of soft [...] Episodic Other nutritional; endocrine; and metabolic disorders (8 sources) Overweight; Translations: [Overweight] Onset: 11-05-2017 Episodic Other nutritional; endocrine; and metabolic disorders (8 sources) Body mass index 25-29 - overweight; Translations: [Body mass index 28.0-28.9, adult] Onset: 03-05-2017 Episodic Other skin disorders (8 sources) Inflamed seborrheic keratosis; Translations: [Inflamed seborrheic keratosis] Onset: 05-17-2016 Episodic Other skin disorders (8 sources) Actinic keratosis; Translations: [Actinic keratosis] Onset: 02-09-2016 Episodic Other upper respiratory infections (20 sources) Acute maxillary sinusitis; Translations: [Acute recurrent maxillary sinusitis] Onset: 08-02-2014 Episodic Residual codes; unclassified (7 sources) Tobacco user; Translations: [Tobacco use] Onset: 05-30-2016 Episodic Residual codes; unclassified (1 source) Tobacco use; Translations: [Tobacco use] Onset: 05-30-2016 Episodic Screening and history of mental health and substance abuse codes (8 sources) Nicotine dependence; Translations: [Personal history of nicotine dependence] Onset: 10-31-2018 Episodic Thyroid disorders (8 sources) Disorder of thyroid gland; Translations: [Unspecified [...] 04-17-19 ABSOLUTE BASOPHIL 0.0 X10E9/L Normal 0.0-0.2 [facility] Comment on above: Performed By: #### C MP, CBCA ####[facility] ([id number])[address] [place] [address] ABSOLUTE NEUTROPHIL 7.0 X10E9/L High 1.5-6.6 [facility] Comment on above: Performed By: #### C MP, CBCA ####[facility] ([id number])[address], [address], [place] [address] Basophils/100 WBC (Bld) 0.3 % Normal [facility] Comment on above: Performed By: #### C MP, CBCA ####[facility] ([id number])[address], [address] [place] [address] Eosinophils (Bld) [#/Vol] 0.2 10*3/uL Normal 0.0-0.4 [facility] Comment on above: Performed By: #### C MP, CBCA ####[facility] ([id number])[address], [address], [place] [address] Eosinophils/100 WBC (Bld) 2.4 % Normal [facility] Comment on above: Performed By: #### C MP, CBCA ####[facility] ([id number])[address] [address], [place] [address] Erythrocyte distribution width (RBC) [Ratio] 14.7 % Normal 11.5-15.0 [facility] Comment on above: Performed By: #### C MP, CBCA ####[facility] ([id number])[address] [address], [place] [address] Hematocrit (Bld) [Volume fraction] 35.3 % Normal 35-47 [facility] Comment on above: Performed By: #### C MP, CBCA ####[facility] ([id number])[address] [address] [place] [address] Hemoglobin (Bld) [Mass/Vol] 12.1 g/dL Normal 11.7-15.5 [facility] Comment on above: Performed By: #### C MP, CBCA ####[facility] ([id number])[address] [address] [place] [address] Lymphocytes (Bld) [#/Vol] 0.7 10*3/uL Low 1.0-3.5 [facility] Comment on above: Performed By: #### C MP, CBCA ####[facility] ([id number])[address] [address] [place] [address] Lymphocytes/100 WBC (Bld) 7.6 % Normal [facility] Comment on above: Performed By: #### C MP, CBCA ####[facility] ([id number])[address], [address] [place] [address] MCH (RBC) [Entitic mass] 28.9 pg Normal 27-34 [facility] Comment on above: Performed By: #### C MP, CBCA ####[facility] ([id number])[address], [address], [place] [address] MCHC (RBC) [Mass/Vol] 34.1 g/dL Normal 32-36 [facility] Comment on above: Performed By: #### C MP, CBCA ####[facility] ([id number])[address], [place] [address] MCV (RBC) [Entitic vol] 85 fL Normal 80-100 [facility] Comment on above: Performed By: #### C MP, CBCA ####[facility] ([id number])[address], [place] [address] Monocytes (Bld) [#/Vol] 0.7 10*3/uL Normal 0-0.9 [facility] Comment on above: Performed By: #### C MP, CBCA ####[facility] ([id number])[address], [place] [address] Monocytes/100 WBC (Bld) 7.8 % Normal [facility] Comment on above: Performed By: #### C MP, CBCA ####[facility] ([id number])[address], [address] [place] [address] Neutrophils/100 WBC (Bld) 81.9 % Normal [facility] Comment on above: Performed By: #### C MP, CBCA ####[facility] ([id number])[address], [address], [place] [address] Platelet mean volume (Bld) [Entitic vol] 9.8 fL Normal 7-12 [facility] Comment on above: Performed By: #### C MP, CBCA ####[facility] ([id number])[address] [address] Platelets (Bld) [#/Vol] 130 10*3/uL Low 150-450 [facility] Comment on above: Performed By: #### C MP, CBCA ####[facility] ([id number])[address], [address] [address] RBC COUNT 4.18 X10E12/L Normal 3.80-5.20 [facility] Comment on above: Performed By: #### C MP, CBCA ####[facility] ([id number])[address] [address] WBC (Bld) [#/Vol] 8.6 10*3/uL Normal 4.0-11.0 [facility] Comment on above: Performed By: #### C MP, CBCA ####[facility] ([id number])[address] [address] CBC auto differentialon 04-08 Basophils (Bld) [#/Vol] 0.0 10*3/uL [facility] Basophils/100 WBC (Bld) 0.3 % [facility] Eosinophils (Bld) [#/Vol] 0.2 10*3/uL [facility] Eosinophils/100 WBC (Bld) 2.4 % [facility] Erythrocyte distribution width (RBC) [Ratio] 14.7 % 11.5 - 15.0 % [facility] Hematocrit (Bld) [Volume fraction] 35.3 % 35 - 47 % [facility] Hemoglobin (Bld) [Mass/Vol] 12.1 g/dL 11.7 - 15.5 g/dL [facility] Interpretation and review of laboratory results Abnormal [facility] Lymphocytes (Bld) [#/Vol] 0.7 10*3/uL Low [facility] Lymphocytes/100 WBC (Bld) 7.6 % [facility] MCH (RBC) [Entitic mass] 28.9 pg 27 - 34 pg [facility] MCHC (RBC) [Mass/Vol] 34.1 g/dL 32 - 3 6 g/dL [facility] MCV (RBC) [Entitic vol] 85 fL 80 - 100 fL [facility] Monocytes (Bld) [#/Vol] 0.7 10*3/uL [facility] Monocytes/100 WBC (Bld) 7.8 % P [facility] Neutrophils (Bld) [#/Vol] 7.0 10*3/uL High [facility] Neutrophils/100 WBC (Bld) 81.9 % [facility] Platelet mean volume (Bld) [Entitic vol] 9.8 fL 7 - 12 fL [facility] Platelets (Bld) [#/Vol] 130 10*3/uL Low [facility] RBC (Bld) [#/Vol] 4.18 10*6/uL [facility] WBC corrected for nucl RBC Auto (Bld) [#/Vol] 8.6 [facility] COMPREHENSIVE METABOLIC PANE Dennis 04-17-2023 Albumin [Mass/Vol] 3.1 g/dL Low 3.2-5.3 [facility] Comment on above: Performed By: #### C GUMARO, CBCA ####[facility] ([id number])[address], [address] [place] [address] ALP [Catalytic activity/Vol] 86 U/L Normal 39-130 [facility] Comment on above: Performed By: #### C GUMARO, CBCA ####[facility] ([id number])[address], [address] [place] [address] ALT [Catalytic activity/Vol] 69 U/L High 0-31 [facility] Comment on above: Performed By: #### C GUMARO, CBCA ####[facility] ([id number])[address], [address], [place] [address] Anion gap [Moles/Vol] 7 mmol/L Normal 5-15 [facility] Comment on above: Performed By: #### C GUMARO CBCA ####[facility] ([id number])[address], [place] [address] AST [Catalytic activity/Vol] 24 U/L Normal 0-41 [facility] Comment on above: Performed By: #### C GUMARO CBCA ####[facility] ([id number])[address] [address], [place] [address] Bilirubin [Mass/Vol] 0.4 mg/dL Normal 0.3-1.2 [facility] Comment on above: Performed By: #### C GUMARO CBCA ####[facility] ([id number])[address] [address], [place] [address] Calcium [Mass/Vol] 8.8 mg/dL Normal 8.5-10.5 [facility] Comment on above: Performed By: #### C GUMARO CBCA ####[facility] ([id number])[address], [place] [address] Chloride [Moles/Vol] 105 mmol/L Normal 98-109 [facility] Comment on above: Performed By: #### C GUMARO CBCA ####[facility] ([id number])[address] [address], [place] [address] CO2 [Moles/Vol] 27 mmol/L Normal 22-32 [facility] Comment on above: Performed By: #### C GUMARO CBCA ####[facility] ([id number])[address] [address], [place] [address] Creatinine [Mass/Vol] 0.48 mg/dL Normal 0.40-1.00 [facility] Comment on above: Result Comment: METH OD TRACEABLE TO IDMS STANDARD Performed By: #### C GUMARO CBCA ####[facility] ([id number])[address] [address], [place] [address] eGFR (CKD-EPI) NON-RACE DEPENDENT >90 Normal >59 [facility] Comment on above: Result Comment: Repo rted eGFR is based on theCKD-EPI 2020 equation that doesnot use a race coefficient. Performed By: #### C GUMARO CBCA ####[facility] ([id number])[address] [address] [place] [address] Glucose [Mass/Vol] 131 mg/dL High 65-99 [facility] Comment on above: Performed By: #### C GUMARO CBCA ####[facility] ([id number])[address] [address], [place] [address] Potassium [Moles/Vol] 4.1 mmol/L Normal 3.5-5.0 [facility] Comment on above: Performed By: #### C GUMARO CBCA ####[facility] ([id number])[address] [address], [place] [address] Protein [Mass/Vol] 6.0 g/dL Normal 6.0-8.0 [facility] Comment on above: Performed By: #### C GUMARO CBCA ####[facility] ([id number])[address] [address] [place] [address] Sodium [Moles/Vol] 139 mmol/L Normal 134-146 [facility] Comment on above: Performed By: #### C GUMARO CBCA ####[facility] ([id number])[address] [address] [place] [address] Urea nitrogen [Mass/Vol] 26 mg/dL Normal 5-27 [facility] Comment on above: Performed By: #### C GUMARO CBCA ####[facility] ([id number])[address] [address], [place] [address] Comprehensive metabolic pane dennis 04-17-2023 Albumin [Mass/Vol] 3.1 g/dL Low 3.2 - 5.3 g/dL [facility] ALP [Catalytic activity/Vol] 86 U/L 39 - 130 U/L [facility] ALT No additional P-5'-P [Catalytic activity/Vol] 69 U/L High 0 - 31 U/L [facility] Anion gap [Moles/Vol] 7 mmol/L 5 - 15 mmol/L [facility] AST [Catalytic activity/Vol] 24 U/L 0 - 41 U/L [facility] Bilirubin [Mass/Vol] 0.4 mg/dL 0.3 - 1 .2 mg/dL [facility] Calcium [Mass/Vol] 8.8 mg/dL 8.5 - 10. 5 mg/dL [facility] Chloride [Moles/Vol] 105 mmol/L 98 - 10 9 mmol/L [facility] CO2 [Moles/Vol] 27 mmol/L 22 - 32 mmol/L [facility] Creatinine [Mass/Vol] 0.48 mg/dL 0.40 - 1.00 mg/dL [facility] eGFR (CKD-EPI)non-race dependent - PINF [facility] Glucose [Mass/Vol] 131 mg/dL High 65 - 99 mg/dL [facility] Interpretation and review of laboratory results Abnormal [facility] Potassium [Moles/Vol] 4.1 mmol/L 3.5 - 5.0 mmol/L [facility] Protein [Mass/Vol] 6.0 g/dL 6.0 - 8.0 g/dL [facility] Sodium [Moles/Vol] 139 mmol/L 134 - 146 mmol/L [facility] Urea nitrogen [Mass/Vol] 26 mg/dL 5 - 27 mg/dL [facility] Glucose Glucometer (BldC) [M ass/Vol]on 04-17-2023 Glucose [Mass/Vol] 132 mg/dL High 65-99 [facility] Glucose [Mass/Vol] 132 mg/dL High 65 - 99 mg/dL [facility] Interpretation and review of laboratory results Abnormal [facility] CBC AND AUTO DIFFon 04-16-19 24 ABSOLUTE BASOPHIL 0.0 X10E9/L Normal 0.0-0.2 [facility] Comment on above: Performed By: #### C BROOKLYN, CMP ####[facility] ([id number])[address], [place] [address] ABSOLUTE NEUTROPHIL 7.1 X10E9/L High 1.5-6.6 [facility] Comment on above: Performed By: #### C BROOKLYN, CMP ####[facility] ([id number])[address], [address], [place] [address] Basophils/100 WBC (Bld) 0.4 % Normal [facility] Comment on above: Performed By: #### C BROOKLYN, CMP ####[facility] ([id number])[address] [address], [place] [address] Eosinophils (Bld) [#/Vol] 0.2 10*3/uL Normal 0.0-0.4 [facility] Comment on above: Performed By: #### C BROOKLYN, CMP ####[facility] ([id number])[address], [address], [place] [address] Eosinophils/100 WBC (Bld) 2.5 % Normal [facility] Comment on above: Performed By: #### C BROOKLYN, CMP ####[facility] ([id number])[address] [address], [place] [address] Erythrocyte distribution width (RBC) [Ratio] 14.9 % Normal 11.5-15.0 [facility] Comment on above: Performed By: #### C BROOKLYN, CMP ####[facility] ([id number])[address] [address], [place] [address] Hematocrit (Bld) [Volume fraction] 37.0 % Normal 35-47 [facility] Comment on above: Performed By: #### C BROOKLYN, CMP ####[facility] ([id number])[address], [address] [place] [address] Hemoglobin (Bld) [Mass/Vol] 12.3 g/dL Normal 11.7-15.5 [facility] Comment on above: Performed By: #### C BCA, CMP ####[facility] ([id number])[address], [address] [place] [address] Lymphocytes (Bld) [#/Vol] 0.5 10*3/uL Low 1.0-3.5 [facility] Comment on above: Performed By: #### C BROOKLYN, CMP ####[facility] ([id number])[address], [address] [place] [address] Lymphocytes/100 WBC (Bld) 5.9 % Normal [facility] Comment on above: Performed By: #### C BROOKLYN, CMP ####[facility] ([id number])[address], [address] [place] [address] MCH (RBC) [Entitic mass] 28.1 pg Normal 27-34 [facility] Comment on above: Performed By: #### C BROOKLYN, CMP ####[facility] ([id number])[address] [address] [place] [address] MCHC (RBC) [Mass/Vol] 33.3 g/dL Normal 32-36 [facility] Comment on above: Performed By: #### C BCA, CMP ####[facility] ([id number])[address] [address] [place] [address] MCV (RBC) [Entitic vol] 85 fL Normal 80-100 [facility] Comment on above: Performed By: #### C BCA, CMP ####[facility] ([id number])[address], [address] [place] [address] Monocytes (Bld) [#/Vol] 0.7 10*3/uL Normal 0-0.9 [facility] Comment on above: Performed By: #### C BCA, CMP ####[facility] ([id number])[address], [address], [place] [address] Monocytes/100 WBC (Bld) 7.8 % Normal [facility] Comment on above: Performed By: #### C BCA, CMP ####[facility] ([id number])[address], [address], [place] [address] Neutrophils/100 WBC (Bld) 83.4 % Normal [facility] Comment on above: Performed By: #### C BCA, CMP ####[facility] ([id number])[address], [address], [place] [address] Platelet mean volume (Bld) [Entitic vol] 9.6 fL Normal 7-12 [facility] Comment on above: Performed By: #### C BCA, CMP ####[facility] ([id number])[address], [address], [place] [address] Platelets (Bld) [#/Vol] 112 10*3/uL Low 150-450 [facility] Comment on above: Performed By: #### C BCA, CMP ####[facility] ([id number])[address], [address], [place] [address] RBC COUNT 4.38 X10E12/L Normal 3.80-5.20 [facility] Comment on above: Performed By: #### C BCA, CMP ####[facility] ([id number])[address] [address], [place] [address] WBC (Bld) [#/Vol] 8.5 10*3/uL Normal 4.0-11.0 [facility] Comment on above: Performed By: #### C BCA, CMP ####[facility] ([id number])[address] [facility], [address] [place] [address] CBC auto differentialon Basophils (Bld) [#/Vol] 0.0 10*3/uL [facility] Basophils/100 WBC (Bld) 0.4 % [facility] Eosinophils (Bld) [#/Vol] 0.2 10*3/uL [facility] Eosinophils/100 WBC (Bld) 2.5 % [facility] Erythrocyte distribution width (RBC) [Ratio] 14.9 % 11.5 - 15.0 % [facility] Hematocrit (Bld) [Volume fraction] 37.0 % 35 - 47 % [facility] Hemoglobin (Bld) [Mass/Vol] 12.3 g/dL 11.7 - 15.5 g/dL [facility] Interpretation and review of laboratory results Abnormal [facility] Lymphocytes (Bld) [#/Vol] 0.5 10*3/uL Low [facility] Lymphocytes/100 WBC (Bld) 5.9 % [facility] MCH (RBC) [Entitic mass] 28.1 pg 27 - 34 pg [facility] MCHC (RBC) [Mass/Vol] 33.3 g/dL 32 - 3 6 g/dL [facility] MCV (RBC) [Entitic vol] 85 fL 80 - 100 fL [facility] Monocytes (Bld) [#/Vol] 0.7 10*3/uL [facility] Monocytes/100 WBC (Bld) 7.8 % [facility] Neutrophils (Bld) [#/Vol] 7.1 10*3/uL High [facility] Neutrophils/100 WBC (Bld) 83.4 % [facility] Platelet mean volume (Bld) [Entitic vol] 9.6 fL 7 - 12 fL [facility] Platelets (Bld) [#/Vol] 112 10*3/uL Low [facility] RBC (Bld) [#/Vol] 4.38 10*6/uL [facility] WBC corrected for nucl RBC Auto (Bld) [#/Vol] 8.5 [facility] COMPREHENSIVE METABOLIC PANE Dennis 01-09-2024 Albumin [Mass/Vol] 2.8 g/dL Low 3.2-5.3 [facility] Comment on above: Performed By: #### C BCA, CMP ####[facility] ([id number])[address], [address], [place] [address] ALP [Catalytic activity/Vol] 82 U/L Normal 39-130 [facility] Comment on above: Performed By: #### C BCA, CMP ####[facility] ([id number])[address], [address], [place] [address] ALT [Catalytic activity/Vol] 75 U/L High 0-31 [facility] Comment on above: Performed By: #### C BCA, CMP ####[facility] ([id number])[address], [address], [place] [address] Anion gap [Moles/Vol] 10 mmol/L Normal 5-15 [facility] Comment on above: Performed By: #### C BCA, CMP ####[facility] ([id number])[address], [address], [place] [address] AST [Catalytic activity/Vol] 29 U/L Normal 0-41 [facility] Comment on above: Performed By: #### C BCA, CMP ####[facility] ([id number])[address], [address], [place] [address] Bilirubin [Mass/Vol] 0.4 mg/dL Normal 0.3-1.2 [facility] Comment on above: Performed By: #### C BCA, CMP ####[facility] ([id number])[address] [address], [place] [address] Calcium [Mass/Vol] 8.6 mg/dL Normal 8.5-10.5 [facility] Comment on above: Performed By: #### C BCA, CMP ####[facility] ([id number])[address], [address] [place] [address] Chloride [Moles/Vol] 107 mmol/L Normal 98-109 [facility] Comment on above: Performed By: #### C BCA, CMP ####[facility] ([id number])[address] [address], [place] [address] CO2 [Moles/Vol] 24 mmol/L Normal 22-32 [facility] Comment on above: Performed By: #### C BCA, CMP ####[facility] ([id number])[address] [address], [place] [address] Creatinine [Mass/Vol] 0.47 mg/dL Normal 0.40-1.00 [facility] Comment on above: Result Comment: METH OD TRACEABLE TO IDMS STANDARD Performed By: #### C BROOKLYN, CMP ####[facility] ([id number])[address] [place] [address] eGFR (CKD-EPI) NON-RACE DEPENDENT >90 Normal >59 [facility] Comment on above: Result Comment: Repo rted eGFR is based on theCKD-EPI 2020 equation that doesnot use a race coefficient. Performed By: #### C BCA, CMP ####[facility] ([id number])[address] [address], [place] [address] Glucose [Mass/Vol] 152 mg/dL High 65-99 [facility] Comment on above: Performed By: #### C BCA, CMP ####[facility] ([id number])[address] [address], [place] [address] Potassium [Moles/Vol] 4.2 mmol/L Normal 3.5-5.0 [facility] Comment on above: Performed By: #### C BCA, CMP ####[facility] ([id number])[address] [address], [place] [address] Protein [Mass/Vol] 5.8 g/dL Low 6.0-8.0 [facility] Comment on above: Performed By: #### C BCA, CMP ####[facility] ([id number])[address], [address] [place] [address] Sodium [Moles/Vol] 141 mmol/L Normal 134-146 [facility] Comment on above: Performed By: #### C BCA, CMP ####[facility] ([id number])[address], [address] [place] [address] Urea nitrogen [Mass/Vol] 29 mg/dL High 5-27 [facility] Comment on above: Performed By: #### C BCA, CMP ####[facility] ([id number])[address], [address] [address] Comprehensive metabolic pane dennis 04-16-2023 Albumin [Mass/Vol] 2.8 g/dL Low 3.2 - 5.3 g/dL [facility] ALP [Catalytic activity/Vol] 82 U/L 39 - 130 U/L [facility] ALT No additional P-5'-P [Catalytic activity/Vol] 75 U/L High 0 - 31 U/L [facility] Anion gap [Moles/Vol] 10 mmol/L 5 - 15 mmol/L [facility] AST [Catalytic activity/Vol] 29 U/L 0 - 41 U/L [facility] Bilirubin [Mass/Vol] 0.4 mg/dL 0.3 - 1 .2 mg/dL [facility] Calcium [Mass/Vol] 8.6 mg/dL 8.5 - 10. 5 mg/dL [facility] Chloride [Moles/Vol] 107 mmol/L 98 - 10 9 mmol/L [facility] CO2 [Moles/Vol] 24 mmol/L 22 - 32 mmol/L [facility] Creatinine [Mass/Vol] 0.47 mg/dL 0.40 - 1.00 mg/dL [facility] eGFR (CKD-EPI)non-race dependent - PINF [facility] Glucose [Mass/Vol] 152 mg/dL High 65 - 99 mg/dL [facility] Interpretation and review of laboratory results Abnormal [facility] Potassium [Moles/Vol] 4.2 mmol/L 3.5 - 5.0 mmol/L [facility] Protein [Mass/Vol] 5.8 g/dL Low 6.0 - 8.0 g/dL [facility] Sodium [Moles/Vol] 141 mmol/L 134 - 146 mmol/L [facility] Urea nitrogen [Mass/Vol] 29 mg/dL High 5 - 27 mg/dL [facility] Glucose Glucometer (BldC) [M ass/Vol]on 04-16-2023 Glucose [Mass/Vol] 141 mg/dL High 65-99 [facility] Glucose [Mass/Vol] 141 mg/dL High 65 - 99 mg/dL [facility] Interpretation and review of laboratory results Abnormal [facility] Glucose [Mass/Vol] 141 mg/dL High 65-99 [facility] Glucose [Mass/Vol] 141 mg/dL High 65 - 99 mg/dL [facility] Interpretation and review of laboratory results Abnormal [facility] Glucose [Mass/Vol] 156 mg/dL High 65 - 99 mg/dL [facility] Interpretation and review of laboratory results Abnormal [facility] Glucose [Mass/Vol] 156 mg/dL High 65-99 [facility] Glucose [Mass/Vol] 154 mg/dL High 65-99 [facility] CBC AND AUTO DIFFon 04-15-19 24 ABSOLUTE BASOPHIL 0.0 X10E9/L Normal 0.0-0.2 [facility] Comment on above: Performed By: #### C BCA, CMP ####[facility] ([id number])[address] [facility], [address] [place] [address] ABSOLUTE NEUTROPHIL 7.8 X10E9/L High 1.5-6.6 [facility] Comment on above: Performed By: #### C BCA, CMP ####[facility] ([id number])[address], [address] [place] [address] Basophils/100 WBC (Bld) 0.2 % Normal [facility] Comment on above: Performed By: #### C BROOKLYN, CMP ####[facility] ([id number])[address], [facility] [address], [place] [address] Eosinophils (Bld) [#/Vol] 0.2 10*3/uL Normal 0.0-0.4 [facility] Comment on above: Performed By: #### C BROOKLYN, CMP ####[facility] ([id number])[address] [address], [place] [address] Eosinophils/100 WBC (Bld) 1.9 % Normal [facility] Comment on above: Performed By: #### C BROOKLYN, CMP ####[facility] ([id number])[address] [address], [place] [address] Erythrocyte distribution width (RBC) [Ratio] 14.9 % Normal 11.5-15.0 [facility] Comment on above: Performed By: #### C BROOKLYN, CMP ####[facility] ([id number])[address] [address], [place] [address] Hematocrit (Bld) [Volume fraction] 34.4 % Low 35-47 [facility] Comment on above: Performed By: #### C BROOKLYN, CMP ####[facility] ([id number])[address] [address], [place] [address] Hemoglobin (Bld) [Mass/Vol] 11.6 g/dL Low 11.7-15.5 [facility] Comment on above: Performed By: #### C BROOKLYN, CMP ####[facility] ([id number])[address] [place] [address] Lymphocytes (Bld) [#/Vol] 0.6 10*3/uL Low 1.0-3.5 [facility] Comment on above: Performed By: #### C BROOKLYN, CMP ####[facility] ([id number])[address], [address] [place] [address] Lymphocytes/100 WBC (Bld) 6.8 % Normal [facility] Comment on above: Performed By: #### C BCA, CMP ####[facility] ([id number])[address], [address] [place] [address] MCH (RBC) [Entitic mass] 28.9 pg Normal 27-34 [facility] Comment on above: Performed By: #### C BCA, CMP ####[facility] ([id number])[address], [address] [place] [address] MCHC (RBC) [Mass/Vol] 33.7 g/dL Normal 32-36 [facility] Comment on above: Performed By: #### C BCA, CMP ####[facility] ([id number])[address], [address] [place] [address] MCV (RBC) [Entitic vol] 86 fL Normal 80-100 [facility] Comment on above: Performed By: #### C BCA, CMP ####[facility] ([id number])[address] [place] [address] Monocytes (Bld) [#/Vol] 0.5 10*3/uL Normal 0-0.9 [facility] Comment on above: Performed By: #### C BCA, CMP ####[facility] ([id number])[address], [address] [place] [address] Monocytes/100 WBC (Bld) 5.1 % Normal [facility] Comment on above: Performed By: #### C BCA, CMP ####[facility] ([id number])[address], [address] [place] [address] Neutrophils/100 WBC (Bld) 86.0 % Normal [facility] Comment on above: Performed By: #### Batsheva BARAHONA, CMP ####[facility] ([id number])[address] [address] Platelet mean volume (Bld) [Entitic vol] 9.7 fL Normal 7-12 [facility] Comment on above: Performed By: #### Batsheva BARAHONA, CMP ####[facility] ([id number])[address] [address] Platelets (Bld) [#/Vol] 124 10*3/uL Low 150-450 [facility] Comment on above: Performed By: #### Batsheva BARAHONA, CMP ####[facility] ([id number])[address] [address] RBC COUNT 4.01 X10E12/L Normal 3.80-5.20 [facility] Comment on above: Performed By: #### Batsheva BARAHONA, CMP ####[facility] ([id number])[address] [address] WBC (Bld) [#/Vol] 9.0 10*3/uL Normal 4.0-11.0 [facility] Comment on above: Performed By: #### Batsheva BARAHONA, CMP ####[facility] ([id number])[address] [address] CBC auto differentialon Basophils (Bld) [#/Vol] 0.0 10*3/uL [facility] Basophils/100 WBC (Bld) 0.2 % [facility] Eosinophils (Bld) [#/Vol] 0.2 10*3/uL [facility] Eosinophils/100 WBC (Bld) 1.9 % [facility] Erythrocyte distribution width (RBC) [Ratio] 14.9 % 11.5 - 15.0 % [facility] Hematocrit (Bld) [Volume fraction] 34.4 % Low 35 - 47 % [facility] Hemoglobin (Bld) [Mass/Vol] 11.6 g/dL Low 11.7 - 15.5 g/dL [facility] Interpretation and review of laboratory results Abnormal [facility] Lymphocytes (Bld) [#/Vol] 0.6 10*3/uL Low [facility] Lymphocytes/100 WBC (Bld) 6.8 % [facility] MCH (RBC) [Entitic mass] 28.9 pg 27 - 34 pg [facility] MCHC (RBC) [Mass/Vol] 33.7 g/dL 32 - 3 6 g/dL [facility] MCV (RBC) [Entitic vol] 86 fL 80 - 100 fL [facility] Monocytes (Bld) [#/Vol] 0.5 10*3/uL [facility] Monocytes/100 WBC (Bld) 5.1 % P [facility] Neutrophils (Bld) [#/Vol] 7.8 10*3/uL High [facility] Neutrophils/100 WBC (Bld) 86.0 % [facility] Platelet mean volume (Bld) [Entitic vol] 9.7 fL 7 - 12 fL [facility] Platelets (Bld) [#/Vol] 124 10*3/uL Low [facility] RBC (Bld) [#/Vol] 4.01 10*6/uL [facility] WBC corrected for nucl RBC Auto (Bld) [#/Vol] 9.0 [facility] COMPREHENSIVE METABOLIC PANE Dennis 04-15-2023 Albumin [Mass/Vol] 2.8 g/dL Low 3.2-5.3 [facility] Comment on above: Performed By: #### C BCA, CMP ####[facility] ([id number])[address], [address] [place] [address] ALP [Catalytic activity/Vol] 87 U/L Normal 39-130 [facility] Comment on above: Performed By: #### C BCA, CMP ####[facility] ([id number])[address], [place] [address] ALT [Catalytic activity/Vol] 89 U/L High 0-31 [facility] Comment on above: Performed By: #### C BCA, CMP ####[facility] ([id number])[address], [place] [address] Anion gap [Moles/Vol] 9 mmol/L Normal 5-15 [facility] Comment on above: Performed By: #### C BCA, CMP ####[facility] ([id number])[address], [place] [address] AST [Catalytic activity/Vol] 44 U/L High 0-41 [facility] Comment on above: Performed By: #### C BCA, CMP ####[facility] ([id number])[address], [place] [address] Bilirubin [Mass/Vol] 0.4 mg/dL Normal 0.3-1.2 [facility] Comment on above: Performed By: #### C BCA, CMP ####[facility] ([id number])[address], [place] [address] Calcium [Mass/Vol] 8.5 mg/dL Normal 8.5-10.5 [facility] Comment on above: Performed By: #### C BCA, CMP ####[facility] ([id number])[address], [place] [address] Chloride [Moles/Vol] 107 mmol/L Normal 98-109 [facility] Comment on above: Performed By: #### C BCA, CMP ####[facility] ([id number])[address], [place] [address] CO2 [Moles/Vol] 24 mmol/L Normal 22-32 [facility] Comment on above: Performed By: #### C BCA, CMP ####[facility] ([id number])[address], [place] [address] Creatinine [Mass/Vol] 0.48 mg/dL Normal 0.40-1.00 [facility] [facility] Comment on above: Result Comment: METH OD TRACEABLE TO IDMS STANDARD Performed By: #### C BCA, CMP ####[facility] ([id number])[address], [place] [address] eGFR (CKD-EPI) NON-RACE DEPENDENT >90 Normal >59 [facility] Comment on above: Result Comment: Repo rted eGFR is based on theCKD-EPI 2020 equation that doesnot use a race coefficient. Performed By: #### C BCA, CMP ####[facility] ([id number])[address], [address], [place] [address] Glucose [Mass/Vol] 136 mg/dL High 65-99 [facility] Comment on above: Performed By: #### C BCA, CMP ####[facility] ([id number])[address] [address], [place] [address] Potassium [Moles/Vol] 3.8 mmol/L Normal 3.5-5.0 [facility] Comment on above: Performed By: #### C BCA, CMP ####[facility] ([id number])[address] [address], [place] [address] Protein [Mass/Vol] 5.8 g/dL Low 6.0-8.0 [facility] Comment on above: Performed By: #### C BCA, CMP ####[facility] ([id number])[address] [address] [place] [address] Sodium [Moles/Vol] 140 mmol/L Normal 134-146 [facility] Comment on above: Performed By: #### C BCA, CMP ####[facility] ([id number])[address] [address] [place] [address] Urea nitrogen [Mass/Vol] 27 mg/dL Normal 5-27 [facility] Comment on above: Performed By: #### C BCA, CMP ####[facility] ([id number])[address] [facility], [address] [place] [address] Comprehensive metabolic pane dennis 04-15-2023 Albumin [Mass/Vol] 2.8 g/dL Low 3.2 - 5.3 g/dL [facility] ALP [Catalytic activity/Vol] 87 U/L 39 - 130 U/L [facility] ALT No additional P-5'-P [Catalytic activity/Vol] 89 U/L High 0 - 31 U/L [facility] Anion gap [Moles/Vol] 9 mmol/L 5 - 15 mmol/L [facility] AST [Catalytic activity/Vol] 44 U/L High 0 - 41 U/L [facility] Bilirubin [Mass/Vol] 0.4 mg/dL 0.3 - 1 .2 mg/dL [facility] Calcium [Mass/Vol] 8.5 mg/dL 8.5 - 10. 5 mg/dL [facility] Chloride [Moles/Vol] 107 mmol/L 98 - 10 9 mmol/L [facility] CO2 [Moles/Vol] 24 mmol/L 22 - 32 mmol/L [facility] Creatinine [Mass/Vol] 0.48 mg/dL 0.40 - 1.00 mg/dL [facility] eGFR (CKD-EPI)non-race dependent - PINF [facility] Glucose [Mass/Vol] 136 mg/dL High 65 - 99 mg/dL [facility] Interpretation and review of laboratory results Abnormal [facility] Potassium [Moles/Vol] 3.8 mmol/L 3.5 - 5.0 mmol/L [facility] Protein [Mass/Vol] 5.8 g/dL Low 6.0 - 8.0 g/dL [facility] Sodium [Moles/Vol] 140 mmol/L 134 - 146 mmol/L [facility] Urea nitrogen [Mass/Vol] 27 mg/dL 5 - 27 mg/dL [facility] Glucose Glucometer (BldC) [M ass/Vol]on 04-15-2023 Glucose [Mass/Vol] 154 mg/dL High 65 - 99 mg/dL [facility] Interpretation and review of laboratory results Abnormal [facility] Glucose [Mass/Vol] 128 mg/dL High 65-99 [facility] Glucose [Mass/Vol] 128 mg/dL High 65 - 99 mg/dL [facility] Interpretation and review of laboratory results Abnormal [facility] Glucose [Mass/Vol] 106 mg/dL High 65-99 [facility] Glucose [Mass/Vol] 106 mg/dL High 65 - 99 mg/dL [facility] Interpretation and review of laboratory results Abnormal [facility] Glucose [Mass/Vol] 143 mg/dL High 65-99 [facility] Glucose [Mass/Vol] 143 mg/dL High 65 - 99 mg/dL [facility] Interpretation and review of laboratory results Abnormal [facility] Glucose [Mass/Vol] 172 mg/dL High 65-99 [facility] CBC AND AUTO DIFFon 04-14-19 24 ABSOLUTE BASOPHIL 0.0 X10E9/L Normal 0.0-0.2 [facility] Comment on above: Performed By: #### C MP CBCA ####[facility] ([id number])[address], [address] [place] [address] ABSOLUTE NEUTROPHIL 8.1 X10E9/L High 1.5-6.6 [facility] Comment on above: Performed By: #### C MP, CBCA ####[facility] ([id number])[address], [address] [place] [address] Basophils/100 WBC (Bld) 0.1 % Normal P [facility] Comment on above: Performed By: #### C MP, CBCA ####[facility] ([id number])[address], [address] [place] [address] Eosinophils (Bld) [#/Vol] 0.2 10*3/uL Normal 0.0-0.4 [facility] Comment on above: Performed By: #### C MP, CBCA ####[facility] ([id number])[address] [address], [place] [address] Eosinophils/100 WBC (Bld) 2.3 % Normal [facility] Comment on above: Performed By: #### C MP, CBCA ####[facility] ([id number])[address] [address] [place] [address] Erythrocyte distribution width (RBC) [Ratio] 14.4 % Normal 11.5-15.0 [facility] Comment on above: Performed By: #### C MP, CBCA ####[facility] ([id number])[address] [address], [place] [address] Hematocrit (Bld) [Volume fraction] 35.0 % Normal 35-47 [facility] Comment on above: Performed By: #### C MP, CBCA ####[facility] ([id number])[address] [address], [place] [address] Hemoglobin (Bld) [Mass/Vol] 11.7 g/dL Normal 11.7-15.5 [facility] Comment on above: Performed By: #### C MP, CBCA ####[facility] ([id number])[address] [address], [place] [address] Lymphocytes (Bld) [#/Vol] 0.7 10*3/uL Low 1.0-3.5 [facility] Comment on above: Performed By: #### C MP, CBCA ####[facility] ([id number])[address] [address], [place] [address] Lymphocytes/100 WBC (Bld) 7.8 % Normal [facility] Comment on above: Performed By: #### C MP, CBCA ####[facility] ([id number])[address] [address], [place] [address] MCH (RBC) [Entitic mass] 28.9 pg Normal 27-34 [facility] Comment on above: Performed By: #### C MP, CBCA ####[facility] ([id number])[address], [address], [place] [address] MCHC (RBC) [Mass/Vol] 33.5 g/dL Normal 32-36 [facility] Comment on above: Performed By: #### C MP, CBCA ####[facility] ([id number])[address], [address], [place] [address] MCV (RBC) [Entitic vol] 86 fL Normal 80-100 [facility] Comment on above: Performed By: #### C MP, CBCA ####[facility] ([id number])[address] [address], [place] [address] Monocytes (Bld) [#/Vol] 0.4 10*3/uL Normal 0-0.9 [facility] Comment on above: Performed By: #### C MP, CBCA ####[facility] ([id number])[address], [address], [place] [address] Monocytes/100 WBC (Bld) 4.6 % Normal [facility] Comment on above: Performed By: #### C MP, CBCA ####[facility] ([id number])[address] [address], [place] [address] Neutrophils/100 WBC (Bld) 85.2 % Normal [facility] Comment on above: Performed By: #### C MP, CBCA ####[facility] ([id number])[address] [address], [place] [address] Platelet mean volume (Bld) [Entitic vol] 9.3 fL Normal 7-12 [facility] Comment on above: Performed By: #### C MP, CBCA ####[facility] ([id number])[address] [address] [place] [address] Platelets (Bld) [#/Vol] 94 10*3/uL Low 150-450 [facility] Comment on above: Performed By: #### C MP, CBCA ####[facility] ([id number])[address] [address] [place] [address] RBC COUNT 4.06 X10E12/L Normal 3.80-5.20 [facility] Comment on above: Performed By: #### C MP, CBCA ####[facility] ([id number])[address] [address] WBC (Bld) [#/Vol] 9.5 10*3/uL Normal 4.0-11.0 [facility] Comment on above: Performed By: #### C MP, CBCA ####[facility] ([id number])[address] [address] CBC auto differentialon Basophils (Bld) [#/Vol] 0.0 10*3/uL [facility] Basophils/100 WBC (Bld) 0.1 % [facility] Eosinophils (Bld) [#/Vol] 0.2 10*3/uL [facility] Eosinophils/100 WBC (Bld) 2.3 % [facility] Erythrocyte distribution width (RBC) [Ratio] 14.4 % 11.5 - 15.0 % [facility] Hematocrit (Bld) [Volume fraction] 35.0 % 35 - 47 % [facility] Hemoglobin (Bld) [Mass/Vol] 11.7 g/dL 11.7 - 15.5 g/dL [facility] Interpretation and review of laboratory results Abnormal [facility] Lymphocytes (Bld) [#/Vol] 0.7 10*3/uL Low [facility] Lymphocytes/100 WBC (Bld) 7.8 % [facility] MCH (RBC) [Entitic mass] 28.9 pg 27 - 34 pg [facility] MCHC (RBC) [Mass/Vol] 33.5 g/dL 32 - 3 6 g/dL [facility] MCV (RBC) [Entitic vol] 86 fL 80 - 100 fL [facility] Monocytes (Bld) [#/Vol] 0.4 10*3/uL [facility] Monocytes/100 WBC (Bld) 4.6 % P [facility] Neutrophils (Bld) [#/Vol] 8.1 10*3/uL High [facility] Neutrophils/100 WBC (Bld) 85.2 % [facility] Platelet mean volume (Bld) [Entitic vol] 9.3 fL 7 - 12 fL [facility] Platelets (Bld) [#/Vol] 94 10*3/uL Low P [facility] RBC (Bld) [#/Vol] 4.06 10*6/uL [facility] WBC corrected for nucl RBC Auto (Bld) [#/Vol] 9.[address] [facility] COMPREHENSIVE METABOLIC PANE Dennis 04-14-2023 Albumin [Mass/Vol] 2.9 g/dL Low 3.2-5.3 [facility] Comment on above: Performed By: #### C JA NAIK ####[facility] ([id number])[address], [address] [place] [address] ALP [Catalytic activity/Vol] 85 U/L Normal 39-130 [facility] Comment on above: Performed By: #### C JA NAIK ####[facility] ([id number])[address], [address], [place] [address] ALT [Catalytic activity/Vol] 76 U/L High 0-31 [facility] Comment on above: Performed By: #### C ELIAS NAIKA ####[facility] ([id number])[address], [address], [place] [address] Anion gap [Moles/Vol] 10 mmol/L Normal 5-15 [facility] Comment on above: Performed By: #### C GUMARO CBCA ####[facility] ([id number])[address], [address], [place] [address] AST [Catalytic activity/Vol] 35 U/L Normal 0-41 [facility] Comment on above: Performed By: #### C GUMARO CBCA ####[facility] ([id number])[address], [address], [place] [address] Bilirubin [Mass/Vol] 0.4 mg/dL Normal 0.3-1.2 [facility] Comment on above: Performed By: #### C GUMARO CBCA ####[facility] ([id number])[address] [address], [place] [address] Calcium [Mass/Vol] 8.5 mg/dL Normal 8.5-10.5 [facility] Comment on above: Performed By: #### C GUMARO CBCA ####[facility] ([id number])[address], [address], [place] [address] Chloride [Moles/Vol] 112 mmol/L High 98-109 [facility] Comment on above: Performed By: #### C GUMARO CBCA ####[facility] ([id number])[address] [address], [place] [address] CO2 [Moles/Vol] 23 mmol/L Normal 22-32 [facility] Comment on above: Performed By: #### C GUMARO CBCA ####[facility] ([id number])[address], [address], [place] [address] Creatinine [Mass/Vol] 0.50 mg/dL Normal 0.40-1.00 [facility] Comment on above: Result Comment: METH OD TRACEABLE TO IDMS STANDARD Performed By: #### C GUMARO CBCA ####[facility] ([id number])[address], [address], [place] [address] eGFR (CKD-EPI) NON-RACE DEPENDENT >90 Normal >59 [facility] Comment on above: Result Comment: Repo rted eGFR is based on theCKD-EPI 2020 equation that doesnot use a race coefficient. Performed By: #### C JA NAIK ####[facility] ([id number])[address], [address], [place] [address] Glucose [Mass/Vol] 148 mg/dL High 65-99 [facility] Comment on above: Performed By: #### C GUMARO CBCA ####[facility] ([id number])[address] [address], [place] [address] Potassium [Moles/Vol] 3.5 mmol/L Normal 3.5-5.0 [facility] Comment on above: Performed By: #### C GUMARO CBCRey ####[facility] ([id number])[address] [address], [place] [address] Protein [Mass/Vol] 5.9 g/dL Low 6.0-8.0 [facility] Comment on above: Performed By: #### C GUMARO CBCRey ####[facility] ([id number])[address] [address] [place] [address] Sodium [Moles/Vol] 145 mmol/L Normal 134-146 [facility] Comment on above: Performed By: #### C ELIAS NAIKA ####[facility] ([id number])[address] [address], [place] [address] Urea nitrogen [Mass/Vol] 24 mg/dL Normal 5-27 [facility] Comment on above: Performed By: #### C GUMARO CBCA ####[facility] ([id number])[address], [address], [place] [address] Comprehensive metabolic pane dennis 04-14-2023 Albumin [Mass/Vol] 2.9 g/dL Low 3.2 - 5.3 g/dL [facility] ALP [Catalytic activity/Vol] 85 U/L 39 - 130 U/L [facility] ALT No additional P-5'-P [Catalytic activity/Vol] 76 U/L High 0 - 31 U/L [facility] Anion gap [Moles/Vol] 10 mmol/L 5 - 15 mmol/L [facility] AST [Catalytic activity/Vol] 35 U/L 0 - 41 U/L [facility] Bilirubin [Mass/Vol] 0.4 mg/dL 0.3 - 1 .2 mg/dL [facility] Calcium [Mass/Vol] 8.5 mg/dL 8.5 - 10. 5 mg/dL [facility] Chloride [Moles/Vol] 112 mmol/L High 98 - 10 9 mmol/L [facility] CO2 [Moles/Vol] 23 mmol/L 22 - 32 mmol/L [facility] Creatinine [Mass/Vol] 0.50 mg/dL 0.40 - 1.00 mg/dL [facility] eGFR (CKD-EPI)non-race dependent - PINF [facility] Glucose [Mass/Vol] 148 mg/dL High 65 - 99 mg/dL [facility] Interpretation and review of laboratory results Abnormal [facility] Potassium [Moles/Vol] 3.5 mmol/L 3.5 - 5.0 mmol/L [facility] Protein [Mass/Vol] 5.9 g/dL Low 6.0 - 8.0 g/dL [facility] Sodium [Moles/Vol] 145 mmol/L 134 - 146 mmol/L [facility] Urea nitrogen [Mass/Vol] 24 mg/dL 5 - 27 mg/dL [facility] ECG 12 leadon 04-14-2023 TRACEMASTERVUE [facility] Glucose Glucometer (BldC) [M ass/Vol]on 04-14-2023 Glucose [Mass/Vol] 172 mg/dL High 65 - 99 mg/dL [facility] Interpretation and review of laboratory results Abnormal [facility] Glucose [Mass/Vol] 111 mg/dL High 65-99 [facility] Glucose [Mass/Vol] 111 mg/dL High 65 - 99 mg/dL [facility] Interpretation and review of laboratory results Abnormal [facility] CBC AND AUTO DIFFon 04-13-19 24 ABSOLUTE BASOPHIL 0.0 X10E9/L Normal 0.0-0.2 [facility] Comment on above: Performed By: #### C BROOKLYN, CMP ####[facility] ([id number])[address], [address] [place] [address] ABSOLUTE NEUTROPHIL 9.2 X10E9/L High 1.5-6.6 [facility] Comment on above: Performed By: #### C BR[place]N, CMP ####[facility] ([id number])[address] [address], [place] [address] Basophils/100 WBC (Bld) 0.1 % Normal [facility] Comment on above: Performed By: #### Batsheva BARAHONA, CMP ####[facility] ([id number])[address] [address], [place] [address] Eosinophils (Bld) [#/Vol] 0.2 10*3/uL Normal 0.0-0.4 [facility] Comment on above: Performed By: #### C BR[place]N, CMP ####[facility] ([id number])[address] [address] [address] Eosinophils/100 WBC (Bld) 1.6 % Normal [facility] Comment on above: Performed By: #### C BR[place], CMP ####[facility] ([id number])[address] [address] [place] [address] Erythrocyte distribution width (RBC) [Ratio] 14.9 % Normal 11.5-15.0 [facility] Comment on above: Performed By: #### C BR[place], CMP ####[facility] ([id number])[address] [address] [place] [address] Hematocrit (Bld) [Volume fraction] 34.4 % Low 35-47 [facility] Comment on above: Performed By: #### C BCA, CMP ####[facility] ([id number])[address], [address] [place] [address] Hemoglobin (Bld) [Mass/Vol] 11.5 g/dL Low 11.7-15.5 [facility] Comment on above: Performed By: #### C BCA, CMP ####[facility] ([id number])[address], [address], [place] [address] Lymphocytes (Bld) [#/Vol] 0.8 10*3/uL Low 1.0-3.5 [facility] Comment on above: Performed By: #### C BCA, CMP ####[facility] ([id number])[address] [address] [place] [address] Lymphocytes/100 WBC (Bld) 7.1 % Normal [facility] Comment on above: Performed By: #### C BCA, CMP ####[facility] ([id number])[address] [address] [place] [address] MCH (RBC) [Entitic mass] 28.8 pg Normal 27-34 [facility] Comment on above: Performed By: #### C BCA, CMP ####[facility] ([id number])[address] [address], [place] [address] MCHC (RBC) [Mass/Vol] 33.4 g/dL Normal 32-36 [facility] Comment on above: Performed By: #### C BCA, CMP ####[facility] ([id number])[address] [address] [place] [address] MCV (RBC) [Entitic vol] 86 fL Normal 80-100 [facility] Comment on above: Performed By: #### C BCA, CMP ####[facility] ([id number])[address], [address], [place] [address] Monocytes (Bld) [#/Vol] 0.5 10*3/uL Normal 0-0.9 [facility] Comment on above: Performed By: #### C BROOKLYN, CMP ####[facility] ([id number])[address], [address], [place] [address] Monocytes/100 WBC (Bld) 5.1 % Normal [facility] Comment on above: Performed By: #### C BROOKLYN, CMP ####[facility] ([id number])[address], [address], [place] [address] Neutrophils/100 WBC (Bld) 86.1 % Normal [facility] Comment on above: Performed By: #### C BROOKLYN, CMP ####[facility] ([id number])[address], [place] [address] Platelet mean volume (Bld) [Entitic vol] 9.7 fL Normal 7-12 [facility] Comment on above: Performed By: #### C BROOKLYN, CMP ####[facility] ([id number])[address], [address], [place] [address] Platelets (Bld) [#/Vol] 91 10*3/uL Low 150-450 [facility] Comment on above: Performed By: #### C BROOKLYN, CMP ####[facility] ([id number])[address], [place] [address] RBC COUNT 3.99 X10E12/L Normal 3.80-5.20 [facility] Comment on above: Performed By: #### C BROOK[place]N, CMP ####[facility] ([id number])[address], [place] [address] WBC (Bld) [#/Vol] 10.7 10*3/uL Normal 4.0-11.0 [facility] Comment on above: Performed By: #### C BCA, CMP ####[facility] ([id number])[address] [facility], [address] [place] [address] CBC auto differentialon Basophils (Bld) [#/Vol] 0.0 [...] Platelets (Bld) [#/Vol] 91 10*3/uL Low [facility] RBC (Bld) [#/Vol] 3.99 10*6/uL [facility] WBC corrected for nucl RBC Auto (Bld) [#/Vol] 10.7 [facility] COMPREHENSIVE METABOLIC PANE Dennis 04-13-2023 Albumin [Mass/Vol] 2.8 g/dL Low 3.2-5.3 [facility] Comment on above: Performed By: #### C BCA, CMP ####[facility] ([id number])[address], [place] [address] ALP [Catalytic activity/Vol] 88 U/L Normal 39-130 [facility] Comment on above: Performed By: #### C BCA, CMP ####[facility] ([id number])[address], [address], [place] [address] ALT [Catalytic activity/Vol] 74 U/L High 0-31 [facility] Comment on above: Performed By: #### C BCA, CMP ####[facility] ([id number])[address], [address], [place] [address] Anion gap [Moles/Vol] 8 mmol/L Normal 5-15 [facility] Comment on above: Performed By: #### C BCA, CMP ####[facility] ([id number])[address], [address], [place] [address] AST [Catalytic activity/Vol] 28 U/L Normal 0-41 [facility] Comment on above: Performed By: #### C BCA, CMP ####[facility] ([id number])[address], [address], [place] [address] Bilirubin [Mass/Vol] 0.5 mg/dL Normal 0.3-1.2 [facility] Comment on above: Performed By: #### C BCA, CMP ####[facility] ([id number])[address], [address], [place] [address] Calcium [Mass/Vol] 8.5 mg/dL Normal 8.5-10.5 [facility] Comment on above: Performed By: #### C BCA, CMP ####[facility] ([id number])[address] [place] [address] Chloride [Moles/Vol] 117 mmol/L High 98-109 [facility] Comment on above: Performed By: #### C BCA, CMP ####[facility] ([id number])[address] [place] [address] CO2 [Moles/Vol] 24 mmol/L Normal 22-32 [facility] Comment on above: Performed By: #### C BCA, CMP ####[facility] ([id number])[address], [place] [address] Creatinine [Mass/Vol] 0.58 mg/dL Normal 0.40-1.00 [facility] Comment on above: Result Comment: METH OD TRACEABLE TO IDMS STANDARD Performed By: #### C BCA, CMP ####[facility] ([id number])[address] [address], [place] [address] eGFR (CKD-EPI) NON-RACE DEPENDENT >90 Normal >59 [facility] Comment on above: Result Comment: Repo rted eGFR is based on theCKD-EPI 2020 equation that doesnot use a race coefficient. Performed By: #### C BCA, CMP ####[facility] ([id number])[address] [address] [place] [address] Glucose [Mass/Vol] 133 mg/dL High 65-99 [facility] Comment on above: Performed By: #### C BCA, CMP ####[facility] ([id number])[address] [address] [place] [address] Potassium [Moles/Vol] 3.7 mmol/L Normal 3.5-5.0 [facility] Comment on above: Performed By: #### C BCA, CMP ####[facility] ([id number])[address], [address] [place] [address] Protein [Mass/Vol] 6.0 g/dL Normal 6.0-8.0 [facility] Comment on above: Performed By: #### C BCA, CMP ####[facility] ([id number])[address], [address] [place] [address] Sodium [Moles/Vol] 149 mmol/L High 134-146 [facility] Comment on above: Performed By: #### C BCA, CMP ####[facility] ([id number])[address], [address] [place] [address]84 Urea nitrogen [Mass/Vol] 27 mg/dL Normal 5-27 [facility] Comment on above: Performed By: #### C BCA, CMP ####[facility] ([id number])[address], [address] [place] [address] Comprehensive metabolic pane dennis 04-13-2023 Albumin [Mass/Vol] 2.8 g/dL Low 3.2 - 5.3 g/dL [facility] ALP [Catalytic activity/Vol] 88 U/L 39 - 130 U/L [facility] ALT No additional P-5'-P [Catalytic activity/Vol] 74 U/L High 0 - 31 U/L [facility] Anion gap [Moles/Vol] 8 mmol/L 5 - 15 mmol/L [facility] AST [Catalytic activity/Vol] 28 U/L 0 - 41 U/L [facility] Bilirubin [Mass/Vol] 0.5 mg/dL 0.3 - 1 .2 mg/dL [facility] Calcium [Mass/Vol] 8.5 mg/dL 8.5 - 10. 5 mg/dL [facility] Chloride [Moles/Vol] 117 mmol/L High 98 - 10 9 mmol/L [facility] CO2 [Moles/Vol] 24 mmol/L 22 - 32 mmol/L [facility] Creatinine [Mass/Vol] 0.58 mg/dL 0.40 - 1.00 mg/dL [facility] eGFR (CKD-EPI)non-race dependent - PINF [facility] Glucose [Mass/Vol] 133 mg/dL High 65 - 99 mg/dL [facility] Interpretation and review of laboratory results Abnormal [facility] Potassium [Moles/Vol] 3.7 mmol/L 3.5 - 5.0 mmol/L [facility] Protein [Mass/Vol] 6.0 g/dL 6.0 - 8.0 g/dL [facility] Sodium [Moles/Vol] 149 mmol/L High 134 - 146 mmol/L [facility] Urea nitrogen [Mass/Vol] 27 mg/dL 5 - 27 mg/dL [facility] ELECTROLYTESon 04-13-2023 Anion gap [Moles/Vol] 10 mmol/L Normal 5-15 [facility] Comment on above: Performed By: #### E LEC ####[facility] ([id number])[address], [address] [place] [address] Chloride [Moles/Vol] 114 mmol/L High 98-109 [facility] Comment on above: Performed By: #### E LEC ####[facility] ([id number])[address], [address], [place] [address] CO2 [Moles/Vol] 24 mmol/L Normal 22-32 [facility] Comment on above: Performed By: #### E LEC ####[facility] ([id number])[address], [address], [place] [address] Potassium [Moles/Vol] 3.6 mmol/L Normal 3.5-5.0 [facility] Comment on above: Performed By: #### E LEC ####[facility] ([id number])[address], [address], [place] [address] Sodium [Moles/Vol] 148 mmol/L High 134-146 [facility] Comment on above: Performed By: #### E LEC ####[facility] ([id number])[address], [address], [place] [address] Electrolyte panelon 04-13-19 24 Anion gap [Moles/Vol] 10 mmol/L 5 - 15 mmol/L [facility] Chloride [Moles/Vol] 114 mmol/L High 98 - 10 9 mmol/L [facility] CO2 [Moles/Vol] 24 mmol/L 22 - 32 mmol/L [facility] Interpretation and review of laboratory results Abnormal [facility] Potassium [Moles/Vol] 3.6 mmol/L 3.5 - 5.0 mmol/L [facility] Sodium [Moles/Vol] 148 mmol/L High 134 - 146 mmol/L [facility] CBC AND AUTO DIFFon 04-12-19 24 ABSOLUTE BASOPHIL 0.0 X10E9/L Normal 0.0-0.2 [facility] Comment on above: Performed By: #### C BCA ####[facility] ([id number])[address] [address], [place] [address] ABSOLUTE NEUTROPHIL 11.1 X10E9/L High 1.5-6.6 [facility] Comment on above: Performed By: #### C BCA ####[facility] ([id number])[address] [address] [place] [address] Basophils/100 WBC (Bld) 0.2 % Normal [facility] Comment on above: Performed By: #### C BCA ####[facility] ([id number])[address], [address], [place] [address] Eosinophils (Bld) [#/Vol] 0.3 10*3/uL Normal 0.0-0.4 [facility] Comment on above: Performed By: #### C BCA ####[facility] ([id number])[address], [address], [place] [address] Eosinophils/100 WBC (Bld) 2.6 % Normal [facility] Comment on above: Performed By: #### C BCA ####[facility] ([id number])[address], [address], [place] [address] Erythrocyte distribution width (RBC) [Ratio] 15.1 % High 11.5-15.0 [facility] Comment on above: Performed By: #### C BCA ####[facility] ([id number])[address], [address], [place] [address] Hematocrit (Bld) [Volume fraction] 32.7 % Low 35-47 [facility] Comment on above: Performed By: #### C BCA ####[facility] ([id number])[address], [address], [place] [address] Hemoglobin (Bld) [Mass/Vol] 10.8 g/dL Low 11.7-15.5 [facility] Comment on above: Performed By: #### C BCA ####[facility] ([id number])[address], [address] [place] [address] Lymphocytes (Bld) [#/Vol] 0.8 10*3/uL Low 1.0-3.5 [facility] Comment on above: Performed By: #### C BCA ####[facility] ([id number])[address], [address], [place] [address] Lymphocytes/100 WBC (Bld) 6.6 % Normal [facility] Comment on above: Performed By: #### C BCA ####[facility] ([id number])[address], [address], [place] [address] MCH (RBC) [Entitic mass] 28.7 pg Normal 27-34 [facility] Comment on above: Performed By: #### C BCA ####[facility] ([id number])[address], [address], [place] [address] MCHC (RBC) [Mass/Vol] 33.1 g/dL Normal 32-36 [facility] Comment on above: Performed By: #### C BCA ####[facility] ([id number])[address], [place] [address] MCV (RBC) [Entitic vol] 87 fL Normal 80-100 [facility] Comment on above: Performed By: #### C BCA ####[facility] ([id number])[address], [place] [address] Monocytes (Bld) [#/Vol] 0.5 10*3/uL Normal 0-0.9 [facility] Comment on above: Performed By: #### C BCA ####[facility] ([id number])[address], [address], [place] [address] Monocytes/100 WBC (Bld) 4.1 % Normal [facility] Comment on above: Performed By: #### C BCA ####[facility] ([id number])[address], [address], [place] [address] Neutrophils/100 WBC (Bld) 86.5 % Normal [facility] Comment on above: Performed By: #### C BCA ####[facility] ([id number])[address], [address], [place] [address] Platelet mean volume (Bld) [Entitic vol] 10.2 fL Normal 7-12 [facility] Comment on above: Performed By: #### C BCA ####[facility] ([id number])[address], [place] [address] Platelets (Bld) [#/Vol] 92 10*3/uL Low 150-450 [facility] Comment on above: Performed By: #### C BCA ####[facility] ([id number])[address], [address], [place] [address] RBC COUNT 3.78 X10E12/L Low 3.80-5.20 [facility] Comment on above: Performed By: #### C BCA ####[facility] ([id number])[address], [address], [place] [address] WBC (Bld) [#/Vol] 12.9 10*3/uL High 4.0-11.0 [facility] Comment on above: Performed By: #### C BCA ####[facility] ([id number])[address] [facility] [address], [place] [address] CBC auto differentialon Basophils (Bld) [#/Vol] 0.0 10*3/uL [facility] Basophils/100 WBC (Bld) 0.2 % [facility] Eosinophils (Bld) [#/Vol] 0.3 10*3/uL [facility] Eosinophils/100 WBC (Bld) 2.6 % [facility] Erythrocyte distribution width (RBC) [Ratio] 15.1 % High 11.5 - 15.0 % [facility] Hematocrit (Bld) [Volume fraction] 32.7 % Low 35 - 47 % [facility] Hemoglobin (Bld) [Mass/Vol] 10.8 g/dL Low 11.7 - 15.5 g/dL [facility] Interpretation and review of laboratory results Abnormal [facility] Lymphocytes (Bld) [#/Vol] 0.8 10*3/uL Low [facility] Lymphocytes/100 WBC (Bld) 6.6 % [facility] MCH (RBC) [Entitic mass] 28.7 pg 27 - 34 pg [facility] MCHC (RBC) [Mass/Vol] 33.1 g/dL 32 - 3 6 g/dL [facility] MCV (RBC) [Entitic vol] 87 fL 80 - 100 fL [facility] Monocytes (Bld) [#/Vol] 0.5 10*3/uL [facility] Monocytes/100 WBC (Bld) 4.1 % P [facility] Neutrophils (Bld) [#/Vol] 11.1 10*3/uL High [facility] Neutrophils/100 WBC (Bld) 86.5 % [facility] Platelet mean volume (Bld) [Entitic vol] 10.2 fL 7 - 12 fL [facility] Platelets (Bld) [#/Vol] 92 10*3/uL Low P [facility] RBC (Bld) [#/Vol] 3.78 10*6/uL Low [facility] WBC corrected for nucl RBC Auto (Bld) [#/Vol] 12.9 High [facility] COMPREHENSIVE METABOLIC PANE Dennis 04-12-2023 Albumin [Mass/Vol] 2.8 g/dL Low 3.2-5.3 [facility] Comment on above: Performed By: #### C MP ####[facility] ([id number])[address], [place] [address] ALP [Catalytic activity/Vol] 85 U/L Normal 39-130 [facility] Comment on above: Performed By: #### C MP ####[facility] ([id number])[address], [place] [address] ALT [Catalytic activity/Vol] 88 U/L High 0-31 [facility] Comment on above: Performed By: #### C MP ####[facility] ([id number])[address], [place] [address] Anion gap [Moles/Vol] 8 mmol/L Normal 5-15 [facility] Comment on above: Performed By: #### C MP ####[facility] ([id number])[address], [address], [place] [address] AST [Catalytic activity/Vol] 37 U/L Normal 0-41 [facility] Comment on above: Performed By: #### C MP ####[facility] ([id number])[address], [address], [place] [address] Bilirubin [Mass/Vol] 0.6 mg/dL Normal 0.3-1.2 [facility] Comment on above: Performed By: #### C MP ####[facility] ([id number])[address] [address], [place] [address] Calcium [Mass/Vol] 8.6 mg/dL Normal 8.5-10.5 [facility] Comment on above: Performed By: #### C MP ####[facility] ([id number])[address] [address], [place] [address] Chloride [Moles/Vol] 115 mmol/L High 98-109 [facility] Comment on above: Performed By: #### C MP ####[facility] ([id number])[address] [address] [place] [address] CO2 [Moles/Vol] 23 mmol/L Normal 22-32 [facility] Comment on above: Performed By: #### C MP ####[facility] ([id number])[address] [address] [place] [address] Creatinine [Mass/Vol] 0.71 mg/dL Normal 0.40-1.00 [facility] Comment on above: Result Comment: METH OD TRACEABLE TO IDMS STANDARD Performed By: #### C MP ####[facility] ([id number])[address] [address] [place] [address] GFR/1.73 sq M.predicted among non-blacks MDRD (S/P/Bld) [Vol rate/Area] 86 mL/min/{1.73_m2} Normal >59 [facility] Comment on above: Result Comment: Repo rted eGFR is based on theCKD-EPI 2020 equation that doesnot use a race coefficient. Performed By: #### C MP ####[facility] ([id number])[address] [address] [place] [address] Glucose [Mass/Vol] 130 mg/dL High 65-99 [facility] Comment on above: Performed By: #### C MP ####[facility] ([id number])[address], [place] [address] Potassium [Moles/Vol] 3.8 mmol/L Normal 3.5-5.0 [facility] Comment on above: Performed By: #### C MP ####[facility] ([id number])[address], [address], [place] [address] Protein [Mass/Vol] 5.7 g/dL Low 6.0-8.0 [facility] Comment on above: Performed By: #### C MP ####[facility] ([id number])[address], [address], [place] [address] Sodium [Moles/Vol] 146 mmol/L Normal 134-146 [facility] Comment on above: Performed By: #### C MP ####[facility] ([id number])[address] [place] [address] Urea nitrogen [Mass/Vol] 32 mg/dL High 5-27 [facility] Comment on above: Performed By: #### C MP ####[facility] ([id number])[address], [address] [place] [address] CT CTA CAROTIDon 04-12-2023 CT CTA CAROTID Normal [facility] CT CTA HEADon 04-12-2023 CT CTA HEAD Normal [facility] CTA Carotid artery W contras t Mónica [facility] CTA Head Arteries W contrast Mónica 04-12-20[facility] ([facility]arrative[facility] Comprehensive metabolic pane dennis 04-12-2023 Albumin [Mass/Vol] 2.8 g/dL Low 3.2 - 5.3 g/dL [facility] ALP [Catalytic activity/Vol] 85 U/L 39 - 130 U/L [facility] ALT No additional P-5'-P [Catalytic activity/Vol] 88 U/L High 0 - 31 U/L [facility] Anion gap [Moles/Vol] 8 mmol/L 5 - 15 mmol/L [facility] AST [Catalytic activity/Vol] 37 U/L 0 - 41 U/L [facility] Bilirubin [Mass/Vol] 0.6 mg/dL 0.3 - 1 .2 mg/dL [facility] Calcium [Mass/Vol] 8.6 mg/dL 8.5 - 10. 5 mg/dL [facility] Chloride [Moles/Vol] 115 mmol/L High 98 - 10 9 mmol/L [facility] CO2 [Moles/Vol] 23 mmol/L 22 - 32 mmol/L [facility] Creatinine [Mass/Vol] 0.71 mg/dL 0.40 - 1.00 mg/dL [facility] eGFR (CKD-EPI)non-race dependent 86 - PINF [facility] Glucose [Mass/Vol] 130 mg/dL High 65 - 99 mg/dL [facility] Interpretation and review of laboratory results Abnormal [facility] Potassium [Moles/Vol] 3.8 mmol/L 3.5 - 5.0 mmol/L [facility] Protein [Mass/Vol] 5.7 g/dL Low 6.0 - 8.0 g/dL [facility] Sodium [Moles/Vol] 146 mmol/L 134 - 146 mmol/L [facility] Urea nitrogen [Mass/Vol] 32 mg/dL High 5 - 27 mg/dL [facility] ELECTROLYTESon 04-12-2023 Anion gap [Moles/Vol] 9 mmol/L Normal 5-15 [facility] Comment on above: Performed By: #### E LEC ####[facility] ([id number])[address] [facility], [address] [place] [address] Chloride [Moles/Vol] 114 mmol/L High 98-109 [facility] Comment on above: Performed By: #### E LEC ####[facility] ([id number])[address], [place] [address] CO2 [Moles/Vol] 25 mmol/L Normal 22-32 [facility] Comment on above: Performed By: #### E LEC ####[facility] ([id number])[address], [place] [address] Potassium [Moles/Vol] 3.8 mmol/L Normal 3.5-5.0 [facility] Comment on above: Result Comment: SPEC IMEN HEMOLYZED, RESULTS INCREASEDMODERATELY HEMOLYZED Performed By: #### E LEC ####[facility] ([id number])[address], [place] [address] Sodium [Moles/Vol] 148 mmol/L High 134-146 [facility] Comment on above: Performed By: #### E LEC ####[facility] ([id number])[address], [place] [address] Anion gap [Moles/Vol] 8 mmol/L Normal 5-15 [facility] Comment on above: Performed By: #### E LEC ####[facility] ([id number])[address], [address], [place] [address] Chloride [Moles/Vol] 115 mmol/L High 98-109 [facility] Comment on above: Performed By: #### E LEC ####[facility] ([id number])[address], [address], [place] [address] CO2 [Moles/Vol] 27 mmol/L Normal 22-32 [facility] Comment on above: Performed By: #### E LEC ####[facility] ([id number])[address], [address], [place] [address] Potassium [Moles/Vol] 3.7 mmol/L Normal 3.5-5.0 [facility] Comment on above: Performed By: #### E LEC ####[facility] ([id number])[address], [place] [address] Sodium [Moles/Vol] 150 mmol/L High 134-146 [facility] Comment on above: Performed By: #### E LEC ####[facility] ([id number])[address], [place] [address] Anion gap [Moles/Vol] 10 mmol/L Normal 5-15 [facility] Comment on above: Performed By: #### E LEC ####[facility] ([id number])[address], [address], [place] [address] Chloride [Moles/Vol] 117 mmol/L High 98-109 [facility] Comment on above: Performed By: #### E LEC ####[facility] ([id number])[address], [address], [place] [address] CO2 [Moles/Vol] 23 mmol/L Normal 22-32 [facility] Comment on above: Performed By: #### E LEC ####[facility] ([id number])[address], [address], [place] [address] Potassium [Moles/Vol] 3.4 mmol/L Low 3.5-5.0 [facility] Comment on above: Performed By: #### E LEC ####[facility] ([id number])[address], [place] [address] Sodium [Moles/Vol] 150 mmol/L High 134-146 [facility] Comment on above: Performed By: #### E LEC ####[facility] ([id number])[address], [place] [address] Electrolyte panelon 04-12-19 24 Anion gap [Moles/Vol] 9 mmol/L 5 - 15 mmol/L [facility] Chloride [Moles/Vol] 114 mmol/L High 98 - 10 9 mmol/L [facility] CO2 [Moles/Vol] 25 mmol/L 22 - 32 mmol/L [facility] Interpretation and review of laboratory results Abnormal [facility] Potassium [Moles/Vol] 3.8 mmol/L 3.5 - 5.0 mmol/L [facility] Sodium [Moles/Vol] 148 mmol/L High 134 - 146 mmol/L [facility] Anion gap [Moles/Vol] 8 mmol/L 5 - 15 mmol/L [facility] Chloride [Moles/Vol] 115 mmol/L High 98 - 10 9 mmol/L [facility] CO2 [Moles/Vol] 27 mmol/L 22 - 32 mmol/L [facility] Interpretation and review of laboratory results Abnormal [facility] Potassium [Moles/Vol] 3.7 mmol/L 3.5 - 5.0 mmol/L [facility] Sodium [Moles/Vol] 150 mmol/L High 134 - 146 mmol/L [facility] Anion gap [Moles/Vol] 10 mmol/L 5 - 15 mmol/L [facility] Chloride [Moles/Vol] 117 mmol/L High 98 - 10 9 mmol/L [facility] CO2 [Moles/Vol] 23 mmol/L 22 - 32 mmol/L [facility] Interpretation and review of laboratory results Abnormal [facility] Potassium [Moles/Vol] 3.4 mmol/L Low 3.5 - 5.0 mmol/L [facility] Sodium [Moles/Vol] 150 mmol/L High 134 - 146 mmol/L [facility] Glucose Glucometer (BldC) [M ass/Vol]on 04-12-2023 Glucose [Mass/Vol] 121 mg/dL High 65-99 [facility] Glucose [Mass/Vol] 121 mg/dL High 65 - 99 mg/dL [facility] Interpretation and review of laboratory results Abnormal [facility] Immunoelectrophoresis for Th erapy Monitoringon 04-12-2023 IgA [Mass/Vol] 374 mg/dL 68 - 378 mg/dL [facility] IgG [Mass/Vol] 786 mg/dL 635 - 1741 mg/dL [facility] IgM [Mass/Vol] 38 mg/dL Low 45 - 281 mg/dL [facility] Immunoglobulin light chains.kappa.free (S) [Mass/Vol] 6.32 mg/dL High 0.33 - 1.94 mg/dL [facility] Immunoglobulin light chains.kappa.free/Immun oglobulin light chains.lambda (S) [Mass ratio] 1.71 High 0.26 - 1.65 [facility] Immunoglobulin light chains.lambda [Mass/Vol] 3.70 mg/dL High 0.57 - 2.63 mg/dL [facility] Laboratory - Pathologyon Pathologist interpretation (Bld) [Interp] SEE SEPARATE REPORT [facility] No Panel Informationon 04-12 Interpretation and review of laboratory results Abnormal [facility] Protein electrophoresis, ser umon 04-12-2023 Albumin [Mass/Vol] 2.4 g/dL Low 3.4 - 5.3 g/dL [facility] Alpha 1 globulin Elph [Mass/Vol] 0.5 g/dL High 0.1 - 0.4 g/dL [facility] Alpha 2 globulin Elph [Mass/Vol] 1.1 g/dL 0.4 - 1.1 g/dL [facility] Beta globulin Elph [Mass/Vol] 0.9 g/dL 0.5 - 1.2 g/dL [facility] Gamma globulin Elph [Mass/Vol] 0.7 g/dL 0.5 - 1.6 g/dL [facility] Protein [Mass/Vol] 5.7 g/dL Low 6.0 - 8.0 g/dL [facility] CBC AND AUTO DIFFon 04-11-19 24 ABSOLUTE BASOPHIL 0.1 X10E9/L Normal 0.0-0.2 [facility] Comment on above: Performed By: #### 1 9123-9, CMP, CBCA ####[facility] ([id number])[address] [facility], [address] [place] [address] ABSOLUTE NEUTROPHIL 7.9 X10E9/L High 1.5-6.6 [facility] Comment on above: Performed By: #### 1 9123-9, CMP, CBCA ####[facility] ([id number])[address], [place] [address] Basophils/100 WBC (Bld) 0.6 % Normal [facility] Comment on above: Performed By: #### 1 9123-9, CMP, CBCA ####[facility] ([id number])[address] [address], [place] [address] Eosinophils (Bld) [#/Vol] 0.4 10*3/uL Normal 0.0-0.4 [facility] Comment on above: Performed By: #### 1 9123-9, CMP, CBCA ####[facility] ([id number])[address] [address], [place] [address] Eosinophils/100 WBC (Bld) 3.8 % Normal [facility] Comment on above: Performed By: #### 1 9123-9, CMP, CBCA ####[facility] ([id number])0 [facility] [address] [place] [address], [place] [address] Erythrocyte distribution width (RBC) [Ratio] 15.1 % High 11.5-15.0 [facility] Comment on above: Performed By: #### 1 9123-9, CMP, CBCA ####[facility] ([id number])2130 [address] [address] [place] [address], [place] [address] Hematocrit (Bld) [Volume fraction] 34.0 % Low 35-47 [facility] Comment on above: Performed By: #### 1 9123-9, CMP, CBCA ####[facility] ([id number])2130 [address] [address] [place] [address], [place] [address] Hemoglobin (Bld) [Mass/Vol] 11.4 g/dL Low 11.7-15.5 [facility] Comment on above: Performed By: #### 1 9123-9, CMP, CBCA ####[facility] ([id number])[address], [place] [address] Lymphocytes (Bld) [#/Vol] 0.9 10*3/uL Low 1.0-3.5 [facility] Comment on above: Performed By: #### 1 9123-9, CMP, CBCA ####[facility] ([id number])[address], [address], [place] [address] Lymphocytes/100 WBC (Bld) 8.9 % Normal [facility] Comment on above: Performed By: #### 1 9123-9, CMP, CBCA ####[facility] ([id number])[address], [address], [place] [address] MCH (RBC) [Entitic mass] 28.9 pg Normal 27-34 [facility] Comment on above: Performed By: #### 1 9123-9, CMP, CBCA ####[facility] ([id number])[address], [address], [place] [address] MCHC (RBC) [Mass/Vol] 33.5 g/dL Normal 32-36 [facility] Comment on above: Performed By: #### 1 9123-9, CMP, CBCA ####[facility] ([id number])[address], [address] [place] [address] MCV (RBC) [Entitic vol] 86 fL Normal 80-100 [facility] Comment on above: Performed By: #### 1 9123-9, CMP, CBCA ####[facility] ([id number])[address], [address] [place] [address] Monocytes (Bld) [#/Vol] 0.6 10*3/uL Normal 0-0.9 [facility] Comment on above: Performed By: #### 1 9123-9, CMP, CBCA ####[facility] ([id number])[address], [address] [place] [address] Monocytes/100 WBC (Bld) 6.0 % Normal [facility] Comment on above: Performed By: #### 1 9123-9, CMP, CBCA ####[facility] ([id number])[address], [address] [place] [address] Neutrophils/100 WBC (Bld) 80.7 % Normal [facility] Comment on above: Performed By: #### 1 9123-9, CMP, CBCA ####[facility] ([id number])[address], [address] [place] [address] Platelet mean volume (Bld) [Entitic vol] 10.3 fL Normal 7-12 [facility] Comment on above: Performed By: #### 1 9123-9, CMP, CBCA ####[facility] ([id number])[address] [address] [place] [address] Platelets (Bld) [#/Vol] 97 10*3/uL Low 150-450 [facility] Comment on above: Performed By: #### 1 9123-9, CMP, CBCA ####[facility] ([id number])[address] [address] [place] [address] RBC COUNT 3.95 X10E12/L Normal 3.80-5.20 [facility] Comment on above: Performed By: #### 1 9123-9, CMP, CBCA ####[facility] ([id number])[address] [address] [place] [address] WBC (Bld) [#/Vol] 9.7 10*3/uL Normal 4.0-11.0 [facility] Comment on above: Performed By: #### 1 9123-9, CMP, CBCA ####[facility] ([id number])[address] [facility], [address] [place] [address] CBC auto differentialon Basophils (Bld) [#/Vol] 0.1 10*3/uL [facility] Basophils/100 WBC (Bld) 0.6 % [facility] Eosinophils (Bld) [#/Vol] 0.4 10*3/uL [facility] Eosinophils/100 WBC (Bld) 3.8 % [facility] Erythrocyte distribution width (RBC) [Ratio] 15.1 % High 11.5 - 15.0 % [facility] Hematocrit (Bld) [Volume fraction] 34.0 % Low 35 - 47 % [facility] Hemoglobin (Bld) [Mass/Vol] 11.4 g/dL Low 11.7 - 15.5 g/dL [facility] Interpretation and review of laboratory results Abnormal [facility] Lymphocytes (Bld) [#/Vol] 0.9 10*3/uL Low [facility] Lymphocytes/100 WBC (Bld) 8.9 % [facility] MCH (RBC) [Entitic mass] 28.9 pg 27 - 34 pg [facility] MCHC (RBC) [Mass/Vol] 33.5 g/dL 32 - 3 6 g/dL [facility] MCV (RBC) [Entitic vol] 86 fL 80 - 100 fL [facility] Monocytes (Bld) [#/Vol] 0.6 10*3/uL [facility] Monocytes/100 WBC (Bld) 6.0 % [facility] Neutrophils (Bld) [#/Vol] 7.9 10*3/uL High [facility] Neutrophils/100 WBC (Bld) 80.7 % [facility] Platelet mean volume (Bld) [Entitic vol] 10.3 fL 7 - 12 fL [facility] Platelets (Bld) [#/Vol] 97 10*3/uL Low [facility] RBC (Bld) [#/Vol] 3.95 10*6/uL [facility] WBC corrected for nucl RBC Auto (Bld) [#/Vol] 9.7 [facility] COMPREHENSIVE METABOLIC PANE Dennis 04-11-2023 Albumin [Mass/Vol] 2.9 g/dL Low 3.2-5.3 [facility] Comment on above: Performed By: #### 1 9123-9, CMP, CBCA ####[facility] ([id number])[address], [address], [place] [address] ALP [Catalytic activity/Vol] 91 U/L Normal 39-130 [facility] Comment on above: Performed By: #### 1 9123-9, CMP, CBCA ####[facility] ([id number])[address], [address], [place] [address] ALT [Catalytic activity/Vol] 94 U/L High 0-31 [facility] Comment on above: Performed By: #### 1 9123-9, CMP, CBCA ####[facility] ([id number])[address], [address], [place] [address] Anion gap [Moles/Vol] 8 mmol/L Normal 5-15 [facility] Comment on above: Performed By: #### 1 9123-9, CMP, CBCA ####[facility] ([id number])[address], [address], [place] [address] AST [Catalytic activity/Vol] 54 U/L High 0-41 [facility] Comment on above: Performed By: #### 1 9123-9, CMP, CBCA ####[facility] ([id number])[address], [address], [place] [address] Bilirubin [Mass/Vol] 0.6 mg/dL Normal 0.3-1.2 [facility] Comment on above: Performed By: #### 1 9123-9, CMP, CBCA ####[facility] ([id number])[address], [address], [place] [address] Calcium [Mass/Vol] 8.6 mg/dL Normal 8.5-10.5 [facility] Comment on above: Performed By: #### 1 9123-9, CMP, CBCA ####[facility] ([id number])[address], [address] [place] [address] Chloride [Moles/Vol] 119 mmol/L High 98-109 [facility] Comment on above: Performed By: #### 1 9123-9, CMP, CBCA ####[facility] ([id number])[address], [address] [place] [address] CO2 [Moles/Vol] 23 mmol/L Normal 22-32 [facility] Comment on above: Performed By: #### 1 9123-9, JACOB, CBCA ####[facility] ([id number])[address], [address], [place] [address] Creatinine [Mass/Vol] 0.88 mg/dL Normal 0.40-1.00 [facility] Comment on above: Result Comment: METH OD TRACEABLE TO IDMS STANDARD Performed By: #### 1 9123-9, JACOB, CBCA ####[facility] ([id number])[address], [address] [place] [address] GFR/1.73 sq M.predicted among non-blacks MDRD (S/P/Bld) [Vol rate/Area] 66 mL/min/{1.73_m2} Normal >59 [facility] Comment on above: Result Comment: Repo rted eGFR is based on theCKD-EPI 2020 equation that doesnot use a race coefficient. Performed By: #### 1 9123-9, JACOB, CBCA ####[facility] ([id number])[address], [address] [place] [address] Glucose [Mass/Vol] 153 mg/dL High 65-99 [facility] Comment on above: Performed By: #### 1 9123-9, CMP, CBCA ####[facility] ([id number])[address], [address], [place] [address] Potassium [Moles/Vol] 4.6 mmol/L Normal 3.5-5.0 [facility] Comment on above: Performed By: #### 1 9123-9, CMP, CBCA ####[facility] ([id number])[address], [address], [place] [address] Protein [Mass/Vol] 5.9 g/dL Low 6.0-8.0 [facility] Comment on above: Performed By: #### 1 9123-9, CMP, CBCA ####[facility] ([id number])[address], [address] [place] [address] Sodium [Moles/Vol] 150 mmol/L High 134-146 [facility] Comment on above: Performed By: #### 1 9123-9, CMP, CBCA ####[facility] ([id number])[address], [address] [place] [address] Urea nitrogen [Mass/Vol] 39 mg/dL High 5-27 [facility] Comment on above: Performed By: #### 1 9123-9, CMP, CBCA ####[facility] ([id number])[address], [address] [place] [address] Clinical Pathology Reviewon 04-11-2023 COPATH [facility] Comprehensive metabolic pane dennis 04-11-2023 Albumin [Mass/Vol] 2.9 g/dL Low 3.2 - 5.3 g/dL [facility] ALP [Catalytic activity/Vol] 91 U/L 39 - 130 U/L [facility] ALT No additional P-5'-P [Catalytic activity/Vol] 94 U/L High 0 - 31 U/L [facility] Anion gap [Moles/Vol] 8 mmol/L 5 - 15 mmol/L [facility] AST [Catalytic activity/Vol] 54 U/L High 0 - 41 U/L [facility] Bilirubin [Mass/Vol] 0.6 mg/dL 0.3 - 1 .2 mg/dL [facility] Calcium [Mass/Vol] 8.6 mg/dL 8.5 - 10. 5 mg/dL [facility] Chloride [Moles/Vol] 119 mmol/L High 98 - 10 9 mmol/L [facility] CO2 [Moles/Vol] 23 mmol/L 22 - 32 mmol/L [facility] Creatinine [Mass/Vol] 0.88 mg/dL 0.40 - 1.00 mg/dL [facility] eGFR (CKD-EPI)non-race dependent 66 - PINF [facility] Glucose [Mass/Vol] 153 mg/dL High 65 - 99 mg/dL [facility] Interpretation and review of laboratory results Abnormal [facility] Potassium [Moles/Vol] 4.6 mmol/L 3.5 - 5.0 mmol/L [facility] Protein [Mass/Vol] 5.9 g/dL Low 6.0 - 8.0 g/dL [facility] Sodium [Moles/Vol] 150 mmol/L High 134 - 146 mmol/L [facility] Urea nitrogen [Mass/Vol] 39 mg/dL High 5 - 27 mg/dL [facility] EGD Study observationon [facility] ELECTROLYTESon 04-11-2023 Anion gap [Moles/Vol] 10 mmol/L Normal 5-15 [facility] Comment on above: Performed By: #### E LEC ####[facility] ([id number])[address] [facility], [address] [place] [address] Chloride [Moles/Vol] 116 mmol/L High 98-109 [facility] Comment on above: Performed By: #### E LEC ####[facility] ([id number])[address] [facility], [address] [place] [address] CO2 [Moles/Vol] 27 mmol/L Normal 22-32 [facility] Comment on above: Performed By: #### E LEC ####[facility] ([id number])[address], [address], [place] [address] Potassium [Moles/Vol] 3.6 mmol/L Normal 3.5-5.0 [facility] Comment on above: Performed By: #### E LEC ####[facility] ([id number])[address], [address], [place] [address] Sodium [Moles/Vol] 153 mmol/L High 134-146 [facility] Comment on above: Performed By: #### E LEC ####[facility] ([id number])[address], [address], [place] [address] Anion gap [Moles/Vol] 8 mmol/L Normal 5-15 [facility] Comment on above: Performed By: #### E LEC ####[facility] ([id number])[address], [address], [place] [address] Chloride [Moles/Vol] 117 mmol/L High 98-109 [facility] Comment on above: Performed By: #### E LEC ####[facility] ([id number])[address], [address], [place] [address] CO2 [Moles/Vol] 26 mmol/L Normal 22-32 [facility] Comment on above: Performed By: #### E LEC ####[facility] ([id number])[address], [address], [place] [address] Potassium [Moles/Vol] 4.0 mmol/L Normal 3.5-5.0 [facility] Comment on above: Performed By: #### E LEC ####[facility] ([id number])[address], [address], [place] [address] Sodium [Moles/Vol] 151 mmol/L High 134-146 [facility] Comment on above: Performed By: #### E LEC ####[facility] ([id number])[address], [address] [place] [address] Anion gap [Moles/Vol] 9 mmol/L Normal 5-15 [facility] Comment on above: Performed By: #### E LEC ####[facility] ([id number])[address], [address] [place] [address] Chloride [Moles/Vol] 118 mmol/L High 98-109 [facility] Comment on above: Performed By: #### E LEC ####[facility] ([id number])[address], [address], [place] [address] CO2 [Moles/Vol] 24 mmol/L Normal 22-32 [facility] Comment on above: Performed By: #### E LEC ####[facility] ([id number])[address], [address] [place] [address] Potassium [Moles/Vol] 4.0 mmol/L Normal 3.5-5.0 [facility] Comment on above: Performed By: #### E LEC ####[facility] ([id number])[address], [address] [place] [address] Sodium [Moles/Vol] 151 mmol/L High 134-146 [facility] Comment on above: Performed By: #### E LEC ####[facility] ([id number])[address], [address] [place] [address] Electrolyte panelon 04-11-19 24 Anion gap [Moles/Vol] 10 mmol/L 5 - 15 mmol/L [facility] Chloride [Moles/Vol] 116 mmol/L High 98 - 10 9 mmol/L [facility] CO2 [Moles/Vol] 27 mmol/L 22 - 32 mmol/L [facility] Interpretation and review of laboratory results Abnormal [facility] Potassium [Moles/Vol] 3.6 mmol/L 3.5 - 5.0 mmol/L [facility] Sodium [Moles/Vol] 153 mmol/L High 134 - 146 mmol/L [facility] Anion gap [Moles/Vol] 8 mmol/L 5 - 15 mmol/L [facility] Chloride [Moles/Vol] 117 mmol/L High 98 - 10 9 mmol/L [facility] CO2 [Moles/Vol] 26 mmol/L 22 - 32 mmol/L [facility] Interpretation and review of laboratory results Abnormal [facility] Potassium [Moles/Vol] 4.0 mmol/L 3.5 - 5.0 mmol/L [facility] Sodium [Moles/Vol] 151 mmol/L High 134 - 146 mmol/L [facility] Anion gap [Moles/Vol] 9 mmol/L 5 - 15 mmol/L [facility] Chloride [Moles/Vol] 118 mmol/L High 98 - 10 9 mmol/L [facility] CO2 [Moles/Vol] 24 mmol/L 22 - 32 mmol/L [facility] Interpretation and review of laboratory results Abnormal [facility] Potassium [Moles/Vol] 4.0 mmol/L 3.5 - 5.0 mmol/L [facility] Sodium [Moles/Vol] 151 mmol/L High 134 - 146 mmol/L [facility] Heparin PF4 ABon 04-11-2023 Heparin induced platelet IgG IA [OD] 0.112 NINF [facility] Heparin induced platelet IgG IA [OD]on 04-11-2023 [facility] MAGNESIUMon 04-11-2023 Magnesium [Mass/Vol] 2.1 mg/dL Normal 1.8-2.6 [facility] Comment on above: Performed By: #### 1 9123-9, CMP, CBCA ####[facility] ([id number])[address] [facility], [address] [place] [address] Magnesiumon 04-11-2023 Magnesium [Mass/Vol] 2.1 mg/dL 1.8 - 2 .6 mg/dL [facility] No Panel Informationon 04-11 [facility] XR CHEST 1 VWon 04-11-2023 XR CHEST 1 VW Normal [facility] XR Chest Single viewon 04-11 [facility]RAPACS [facility] Radiology Study observation (narrative) [facility] ACUTE HEPATITIS PANELon ANTI HCV W/PCR REFLX Non-Reactive Normal NRCT Pr [facility] Comment on above: Result Comment: If r ecent infection suspected, recommendrepeat testing (>2 months).Cgsrdo-xj-azgorr ratio is <0.80. Performed By: #### 1 8323-6, SPE, 53937-8, 09086-7, 04415-5, AHP, IMEL, 5130-0, 81586-5, 22071-4, 02157-3 ####[facility] ([id number])[address], [address] [place] [address] HEPATITIS A IGM Non-Reactive Normal NRCT [facility] Comment on above: Performed By: #### 1 8323-6, SPE, 90576-0, 54570-9, 33713-5, AHP, IMEL, 5130-0, 43705-1, 58279-8, 49399-2 ####[facility] ([id number])[address], [address] [place] [address] HEPATITIS B CORE IGM Negative Normal NEG [facility] Comment on above: Performed By: #### 1 8323-6, SPE, 96909-8, 19522-1, 73413-8, AHP, IMEL, 5130-0, 92853-1, 47426-2, 52148-6 ####[facility] ([id number])[address], [address] [place] [address] HEPATITIS B SURF AG Negative Normal NEG [facility] Comment on above: Performed By: #### 1 8323-6, SPE, 13275-3, 40993-7, 92290-6, AHP, IMEL, 5130-0, 09191-5, 59628-3, 73172-0 ####[facility] ([id number])[address], [address], [place] [address] KAY Screen w/ Reflexon 04-10 Nuclear Ab IA Ql (S) Positive Abnormal Negativ e^N egative [facility] Anti-Chromatin IGGon 024 Chromatin Ab Ql [facility] Anti-DNA antibody, double-st randedon 04-10-2023 DNA double strand Ab Qn (S) [facility] Anti-Ruelas AB IGGon 04-10-19 24 Ruelas extractable nuclear IgG Qn (S) [facility] CBC AND AUTO DIFFon 04-10-19 24 ABSOLUTE BASOPHIL 0.0 X10E9/L Normal 0.0-0.2 [facility] Comment on above: Performed By: #### 1 9123-9, CBCA, 20979-9, CMP ####[facility] ([id number])[address], [address] [place] [address] ABSOLUTE NEUTROPHIL 7.2 X10E9/L High 1.5-6.6 [facility] Comment on above: Performed By: #### 1 9123-9, CBCA, 51864-7, CMP ####[facility] ([id number])[address], [address] [place] [address] Basophils/100 WBC (Bld) 0.3 % Normal [facility] Comment on above: Performed By: #### 1 9123-9, CBCA, 44540-8, CMP ####[facility] ([id number])[address], [address], [place] [address] Eosinophils (Bld) [#/Vol] 0.2 10*3/uL Normal 0.0-0.4 [facility] Comment on above: Performed By: #### 1 9123-9, CBCA, 25733-1, CMP ####[facility] ([id number])[address], [address] [address] Eosinophils/100 WBC (Bld) 2.7 % Normal [facility] Comment on above: Performed By: #### 1 9123-9, CBCA, 13833-4, CMP ####[facility] ([id number])[address] [address] Erythrocyte distribution width (RBC) [Ratio] 15.0 % Normal 11.5-15.0 [facility] Comment on above: Performed By: #### 1 91-9, CBCA, 21556-4, CMP ####[facility] ([id number])[address] [address] Hematocrit (Bld) [Volume fraction] 35.6 % Normal 35-47 [facility] Comment on above: Performed By: #### 1 9123-9, CBCA, 49255-3, CMP ####[facility] ([id number])[address], [address] [address] Hemoglobin (Bld) [Mass/Vol] 12.0 g/dL Normal 11.7-15.5 [facility] Comment on above: Performed By: #### 1 9123-9, CBCA, 92443-3, CMP ####[facility] ([id number])[address] [address] Lymphocytes (Bld) [#/Vol] 0.8 10*3/uL Low 1.0-3.5 [facility] Comment on above: Performed By: #### 1 9123-9, CBCA, 78225-2, CMP ####[facility] ([id number])[address] [address] Lymphocytes/100 WBC (Bld) 9.1 % Normal [facility] Comment on above: Performed By: #### 1 9123-9, CBCA, 26812-9, CMP ####[facility] ([id number])[address], [address], [place] [address] MCH (RBC) [Entitic mass] 29.0 pg Normal 27-34 [facility] Comment on above: Performed By: #### 1 9123-9, CBCA, 40629-6, CMP ####[facility] ([id number])[address], [address], [place] [address] MCHC (RBC) [Mass/Vol] 33.6 g/dL Normal 32-36 [facility] Comment on above: Performed By: #### 1 9123-9, CBCA, 83035-0, CMP ####[facility] ([id number])[address], [address], [place] [address] MCV (RBC) [Entitic vol] 86 fL Normal 80-100 [facility] Comment on above: Performed By: #### 1 9123-9, CBCA, 11931-7, CMP ####[facility] ([id number])[address] [address], [place] [address] Monocytes (Bld) [#/Vol] 0.7 10*3/uL Normal 0-0.9 [facility] Comment on above: Performed By: #### 1 9123-9, CBCA, 87175-3, CMP ####[facility] ([id number])[address], [address], [place] [address] Monocytes/100 WBC (Bld) 7.7 % Normal [facility] Comment on above: Performed By: #### 1 9123-9, CBCA, 25787-4, CMP ####[facility] ([id number])[address], [address] [place] [address] Neutrophils/100 WBC (Bld) 80.2 % Normal [facility] Comment on above: Performed By: #### 1 9123-9, CBCA, 57890-7, CMP ####[facility] ([id number])[address] [address] Platelet mean volume (Bld) [Entitic vol] 9.7 fL Normal 7-12 [facility] Comment on above: Performed By: #### 1 9123-9, CBCA, 61530-7, CMP ####[facility] ([id number])[address] [address] Platelets (Bld) [#/Vol] 87 10*3/uL Low 150-450 [facility] Comment on above: Performed By: #### 1 9123-9, CBCA, 82043-7, CMP ####[facility] ([id number])[address] [address] RBC COUNT 4.12 X10E12/L Normal 3.80-5.20 [facility] Comment on above: Performed By: #### 1 9123-9, CBCA, 09250-9, CMP ####[facility] ([id number])[address] [address] WBC (Bld) [#/Vol] 8.9 10*3/uL Normal 4.0-11.0 [facility] Comment on above: Performed By: #### 1 9123-9, CBCA, 51403-7, CMP ####[facility] ([id number])[address] [address] CBC auto differentialon Basophils (Bld) [#/Vol] 0.0 10*3/uL [facility] Basophils/100 WBC (Bld) 0.3 % [facility] Eosinophils (Bld) [#/Vol] 0.2 10*3/uL [facility] Eosinophils/100 WBC (Bld) 2.7 % [facility] Erythrocyte distribution width (RBC) [Ratio] 15.0 % 11.5 - 15.0 % [facility] Hematocrit (Bld) [Volume fraction] 35.6 % 35 - 47 % [facility] Hemoglobin (Bld) [Mass/Vol] 12.0 g/dL 11.7 - 15.5 g/dL [facility] Interpretation and review of laboratory results Abnormal [facility] Lymphocytes (Bld) [#/Vol] 0.8 10*3/uL Low [facility] Lymphocytes/100 WBC (Bld) 9.1 % [facility] MCH (RBC) [Entitic mass] 29.0 pg 27 - 34 pg [facility] MCHC (RBC) [Mass/Vol] 33.6 g/dL 32 - 3 6 g/dL [facility] MCV (RBC) [Entitic vol] 86 fL 80 - 100 fL [facility] Monocytes (Bld) [#/Vol] 0.7 10*3/uL [facility] Monocytes/100 WBC (Bld) 7.7 % P [facility] Neutrophils (Bld) [#/Vol] 7.2 10*3/uL High [facility] Neutrophils/100 WBC (Bld) 80.2 % [facility] Platelet mean volume (Bld) [Entitic vol] 9.7 fL 7 - 12 fL [facility] Platelets (Bld) [#/Vol] 87 10*3/uL Low P [facility] RBC (Bld) [#/Vol] 4.12 10*6/uL [facility] WBC corrected for nucl RBC Auto (Bld) [#/Vol] 8.9 [facility] COMPREHENSIVE METABOLIC PANE [place] 04-10-2023 Albumin [Mass/Vol] 3.2 g/dL Normal 3.2-5.3 [facility] Comment on above: Performed By: #### 1 9123-9, CBCA, 54386-1, CMP ####[facility] ([id number])[address] [address] [place] [address] ALP [Catalytic activity/Vol] 109 U/L Normal 39-130 [facility] Comment on above: Performed By: #### 1 9123-9, CBCA, 94766-4, CMP ####[facility] ([id number])[address], [address], [place] [address] ALT [Catalytic activity/Vol] 88 U/L High 0-31 [facility] Comment on above: Performed By: #### 1 9123-9, CBCA, 41738-1, CMP ####[facility] ([id number])[address], [address], [place] [address] Anion gap [Moles/Vol] 8 mmol/L Normal 5-15 [facility] Comment on above: Performed By: #### 1 9123-9, CBCA, 92295-4, CMP ####[facility] ([id number])[address], [address], [place] [address] AST [Catalytic activity/Vol] 48 U/L High 0-41 [facility] Comment on above: Performed By: #### 1 9123-9, CBCA, 03239-8, CMP ####[facility] ([id number])[address], [address], [place] [address] Bilirubin [Mass/Vol] 0.8 mg/dL Normal 0.3-1.2 [facility] Comment on above: Performed By: #### 1 9123-9, CBCA, 82456-3, CMP ####[facility] ([id number])[address], [address], [place] [address] Calcium [Mass/Vol] 8.6 mg/dL Normal 8.5-10.5 [facility] Comment on above: Performed By: #### 1 9123-9, CBCA, 71069-3, CMP ####[facility] ([id number])[address], [address], [place] [address] Chloride [Moles/Vol] 115 mmol/L High 98-109 [facility] Comment on above: Performed By: #### 1 9123-9, CBCA, 79544-2, CMP ####[facility] ([id number])[address], [address], [place] [address] CO2 [Moles/Vol] 28 mmol/L Normal 22-32 [facility] Comment on above: Performed By: #### 1 9123-9, CBCA, 03373-4, CMP ####[facility] ([id number])[address], [address] [place] [address] Creatinine [Mass/Vol] 0.80 mg/dL Normal 0.40-1.00 [facility] Comment on above: Result Comment: METH OD TRACEABLE TO IDMS STANDARD Performed By: #### 1 9123-9, CBCA, 74052-7, CMP ####[facility] ([id number])[address], [address] [place] [address] GFR/1.73 sq M.predicted among non-blacks MDRD (S/P/Bld) [Vol rate/Area] 74 mL/min/{1.73_m2} Normal >59 [facility] Comment on above: Result Comment: Repo rted eGFR is based on theCKD-EPI 2020 equation that doesnot use a race coefficient. Performed By: #### 1 9123-9, CBCA, 30467-2, CMP ####[facility] ([id number])[address], [address] [place] [address] Glucose [Mass/Vol] 113 mg/dL High 65-99 [facility] Comment on above: Performed By: #### 1 9123-9, CBCA, 94329-2, CMP ####[facility] ([id number])[address], [address], [place] [address] Potassium [Moles/Vol] 3.8 mmol/L Normal 3.5-5.0 [facility] Comment on above: Performed By: #### 1 9123-9, CBCA, 07457-2, CMP ####[facility] ([id number])[address], [address] [place] [address] Protein [Mass/Vol] 6.4 g/dL Normal 6.0-8.0 [facility] Comment on above: Performed By: #### 1 9123-9, CBCA, 17353-4, CMP ####[facility] ([id number])[address], [address] [place] [address] Sodium [Moles/Vol] 151 mmol/L High 134-146 [facility] Comment on above: Performed By: #### 1 9123-9, CBCA, 16517-7, CMP ####[facility] ([id number])[address] [address] [place] [address] Urea nitrogen [Mass/Vol] 38 mg/dL High 5-27 [facility] Comment on above: Performed By: #### 1 9123-9, CBCA, 65031-6, CMP ####[facility] ([id number])[address] [address] Chromatin Ab Qlon 04-10-2023 CHROMATIN AB IGG <0.2 Normal <1.0 [facility] Comment on above: Performed By: #### 1 8323-6, SPE, 05420-8, 85077-1, 26254-9, AHP, IMEL, 5130-0, 48635-6, 00050-9, 81831-4 ####[facility] ([id number])[address] [address] Clinical Pathologyon 024 Clinical Pathology Normal [facility] Comment on above: Result Comment: [facility] [address] [place] [address] Clinical Pathology ReportPatient Name:ELLEN CHAN:1945 (Age: 78)Gender:FTaken:4Reported:04/11/2023hysician(s):Willard Krueger M.D.Copy To: Rec. #:[id number]: #[id number] Pathologic DiagnosisHypoproteinemia with hypoalbuminemia, no monoclonal bands.Elevated free kappa and lambda light chains suggestive of renal impairment. Report Electronically Signed Outsps/04/11/2023Suparth Castañeda MDInterpretation [place] [address], License number: [id number].Clinical GahljsaV49.0, R00.1.SERUM PROTEIN ELECTROPHORESISSAMPLE NO: [id number] FRACTION CONCENTRATIONS (g/dL) PATIENT REFERENCE RANGEAlbumin 2.4 L 3.4 - 5.3Alpha-1 globulin 0.5 H 0.1 - 0.4Alpha-2 globulin 1.1 0.4 - 1.1Beta globulin 0.9 0.5 - 1.2Gamma globulin 0.7 0.5 - 1.6Total protein 5.7 L 6.0 - 8.0(Electrophoretic gels and densitometric tracings on file in lab.)SERUM IEPIMMUNOGLOBULIN LEVELS (mg/dL): IgG : 786 IgA : 374 IgM : 38 Free Caruthers: 6.32 Free Lambda: 3.70 Free Caruthers/Lambda ratio: 1.71Specimen(s) Received1: Serum Protein Electrophoresis2: Serum IEPFee Codes(s):1; 46084-144; 49017-82 Clinical Pathology Blood Sme ar Review ClinicalOrdered By: Radha Perry on 04-10-2023 Pathologist review Pathologist comment (Bld) [Interp] NOTE [facility] pane dennis 04-10-2023 Albumin [Mass/Vol] 3.2 g/dL 3.2 - 5.3 g/dL [facility] ALP [Catalytic activity/Vol] 109 U/L 39 - 130 U/L [facility] ALT No additional P-5'-P [Catalytic activity/Vol] 88 U/L High 0 - 31 U/L [facility] Anion gap [Moles/Vol] 8 mmol/L 5 - 15 mmol/L [facility] AST [Catalytic activity/Vol] 48 U/L High 0 - 41 U/L [facility] Bilirubin [Mass/Vol] 0.8 mg/dL 0.3 - 1 .2 mg/dL [facility] Calcium [Mass/Vol] 8.6 mg/dL 8.5 - 10. 5 mg/dL [facility] Chloride [Moles/Vol] 115 mmol/L High 98 - 10 9 mmol/L [facility] CO2 [Moles/Vol] 28 mmol/L 22 - 32 mmol/L [facility] Creatinine [Mass/Vol] 0.80 mg/dL 0.40 - 1.00 mg/dL [facility] eGFR (CKD-EPI)non-race dependent 74 - PINF [facility] Glucose [Mass/Vol] 113 mg/dL High 65 - 99 mg/dL [facility] Interpretation and review of laboratory results Abnormal [facility] Potassium [Moles/Vol] 3.8 mmol/L 3.5 - 5.0 mmol/L [facility] Protein [Mass/Vol] 6.4 g/dL 6.0 - 8.0 g/dL [facility] Sodium [Moles/Vol] 151 mmol/L High 134 - 146 mmol/L [facility] Urea nitrogen [Mass/Vol] 38 mg/dL High 5 - 27 mg/dL [facility] DNA double strand Ab Qn (S)o n 04-10-2023 DOUBLE STRANDED DNA <1 Normal <5 [facility] Comment on above: Result Comment: ---- ------Interpretation--------<5 Negative5-9 Indeterminate>9 Positive Performed By: #### 1 8323-6, SPE, 33620-3, 68953-6, 21291-8, P, CARMEN, 5130-0, 64782-8, 15125-1, 86069-3 ####[facility] ([id number])[address], [address], [place] [address] ELECTROLYTESon 04-10-2023 Anion gap [Moles/Vol] 10 mmol/L Normal 5-15 [facility] Comment on above: Performed By: #### E LEC ####[facility] ([id number])[address], [address], [place] [address] Chloride [Moles/Vol] 116 mmol/L High 98-109 [facility] Comment on above: Performed By: #### E LEC ####[facility] ([id number])[address], [address], [place] [address] CO2 [Moles/Vol] 23 mmol/L Normal 22-32 [facility] Comment on above: Performed By: #### E LEC ####[facility] ([id number])[address], [address], [place] [address] Potassium [Moles/Vol] 3.8 mmol/L Normal 3.5-5.0 [facility] Comment on above: Performed By: #### E LEC ####[facility] ([id number])[address], [address], [place] [address] Sodium [Moles/Vol] 149 mmol/L High 134-146 [facility] Comment on above: Performed By: #### E LEC ####[facility] ([id number])[address], [address], [place] [address] Anion gap [Moles/Vol] 11 mmol/L Normal 5-15 [facility] Comment on above: Performed By: #### E LEC ####[facility] ([id number])[address], [address], [place] [address] Chloride [Moles/Vol] 115 mmol/L High 98-109 [facility] Comment on above: Performed By: #### E LEC ####[facility] ([id number])[address], [address] [place] [address] CO2 [Moles/Vol] 24 mmol/L Normal 22-32 [facility] Comment on above: Performed By: #### E LEC ####[facility] ([id number])[address], [address] [place] [address] Potassium [Moles/Vol] 3.9 mmol/L Normal 3.5-5.0 [facility] Comment on above: Performed By: #### E LEC ####[facility] ([id number])[address], [address] [place] [address] Sodium [Moles/Vol] 150 mmol/L High 134-146 [facility] Comment on above: Performed By: #### E LEC ####[facility] ([id number])[address], [address] [place] [address] Electrolyte panelon 04-10-19 24 Anion gap [Moles/Vol] 10 mmol/L 5 - 15 mmol/L [facility] Chloride [Moles/Vol] 116 mmol/L High 98 - 10 9 mmol/L [facility] CO2 [Moles/Vol] 23 mmol/L 22 - 32 mmol/L [facility] Interpretation and review of laboratory results Abnormal [facility] Potassium [Moles/Vol] 3.8 mmol/L 3.5 - 5.0 mmol/L [facility] Sodium [Moles/Vol] 149 mmol/L High 134 - 146 mmol/L [facility] Anion gap [Moles/Vol] 11 mmol/L 5 - 15 mmol/L [facility] Chloride [Moles/Vol] 115 mmol/L High 98 - 10 9 mmol/L [facility] CO2 [Moles/Vol] 24 mmol/L 22 - 32 mmol/L [facility] Interpretation and review of laboratory results Abnormal [facility] Potassium [Moles/Vol] 3.9 mmol/L 3.5 - 5.0 mmol/L [facility] Sodium [Moles/Vol] 150 mmol/L High 134 - 146 mmol/L [facility] HIV 1&2 AB/AG Screen (P24 AG )on 04-10-2023 HIV 1+2 Ab+HIV1 p24 Ag IA Ql Non-Reactive Non-Reacti ve^Non-[place] ctive [facility] HIV 1+2 Ab+HIV1 p24 Ag IA Ql on 04-10-2023 HIV 1 and 2 Ab/Ag Screen Non-Reactive Normal NRCT [facility] Comment on above: Result Comment: This [...] diagnoses. Performed By: #### 1 8323-6, SPE, 29200-4, 95296-0, 49993-4, AHP, IMEL, 5130-0, 19861-2, 37184-0, 36446-2 ####[facility] ([id number])[address] [place] [address], [address] [place] [address] Heparin induced platelet IgG IA [OD]on 04-10-2023 HEPARIN PF4 ANTIBODY (HIT) 0.112 OD Normal <0.4 [facility] Comment on above: Result Comment: --- O.D. Interpretation--- < 0.400 Negative >= 0.400 Positive Performed By: #### 7 3818-7 ####[facility] ([id number])[address], [address] [place] [address] Hepatitis panel, acuteon HAV IgM IA Ql Non-Reactive Non-Reacti ve^Non-[place] ctive [facility] HBV core IgM IA Ql Negative Negative^ N egative [facility] HBV surface Ag IA Ql Negative Negativ e^N egative [facility] HCV Ab IA Ql Non-Reactive Non-Reacti ve^Non-[place]erta ctive [facility] IMMUNOELECTROPHORESIS FOR TH FRANNIEPY MONITORINGon 04-10-2023 FREE ZOILA/LAMBD RATIO 1.71 High 0.26-1.65 [facility] Comment on above: Performed By: #### 1 8323-6, SPE, 34231-6, 44844-5, 50459-2, AHP, IMEL, 5130-0, 75465-4, 04313-7, 94012-2 ####[facility] ([id number])[address], [address] [place] [address] FREE KAPPA LT CHAINS 6.32 mg/dL High 0.33-1.94 [facility] Comment on above: Performed By: #### 1 8323-6, SPE, 36143-4, 75164-9, 45117-1, AHP, IMEL, 5130-0, 93050-8, 06647-6, 61916-2 ####[facility] ([id number])[address], [address] [place] [address] FREE LAMBDA LT CHAINS 3.70 mg/dL High 0.57-2.63 [facility] Comment on above: Performed By: #### 1 8323-6, SPE, 75580-6, 05732-2, 37328-1, AHP, IMEL, 5130-0, 31074-8, 69842-9, 95514-7 ####[facility] ([id number])[address], [address] [place] [address] IgA [Mass/Vol] 374 mg/dL Normal 68-378 [facility] Comment on above: Performed By: #### 1 8323-6, SPE, 33196-7, 04531-5, 32460-6, AHP, IMEL, 5130-0, 74526-7, 54959-8, 26123-7 ####[facility] ([id number])[address], [address], [place] [address] IgG [Mass/Vol] 786 mg/dL Normal 635-1741 [facility] Comment on above: Performed By: #### 1 8323-6, SPE, 98935-5, 86777-2, 87624-5, AHP, IMEL, 5130-0, 22555-1, 37879-6, 70284-0 ####[facility] ([id number])[address], [address] [place] [address] IgM [Mass/Vol] 38 mg/dL Low 45-281 [facility] Comment on above: Performed By: #### 1 8323-6, SPE, 94332-2, 02937-7, 47659-8, AHP, IMEL, 5130-0, 21175-4, 90826-9, 13415-2 ####[facility] ([id number])[address], [address] [place] [address] IMMUNE PROFILE INTERP SEE SEPARATE REPORT Normal [facility] Comment on above: Performed By: #### 1 8323-6, SPE, 70572-8, 83673-1, 00374-4, AHP, IMEL, 5130-0, 03534-7, 28183-7, 43404-0 ####[facility] ([id number])[address], [address] [place] [address] MAGNESIUMon 04-10-2023 Magnesium [Mass/Vol] 2.4 mg/dL Normal 1.8-2.6 [facility] Comment on above: Performed By: #### 1 9123-9, CBCA, 17909-4, CMP ####[facility] ([id number])[address], [address] [place] [address] Magnesiumon 04-10-2023 Magnesium [Mass/Vol] 2.4 mg/dL 1.8 - 2 .6 mg/dL [facility] No Panel Informationon 04-10 [facility] Nuclear Ab IA Ql (S)on 04-10 Interpretation and review of laboratory results Abnormal [facility] KAY Screen w/reflex Positive Abnormal NEG [facility] Comment on above: Result Comment: Test ing performed using multiplex flowimmunoassay. Eleven different antigensassociated with systemic autoimmunediseases (dsDNA,Sm,Sm/SAFETY FIRE BOSS,SAFETY FIRE BOSS,Chromatin,SSA,SSB,Namrata-1,Scl70,Ribo P,Centromere B)are included in this screening test. Performed By: #### 1 8323-6, SPE, 66754-7, 34874-2, 93581-0, AHP, IMEL, 5130-0, 58197-7, 60762-7, 97907-6 ####[facility] ([id number])[address] [facility], [address] [place] [address] POTASSIUMon 04-10-2023 Potassium [Moles/Vol] 3.8 mmol/L Normal 3.5-5.0 [facility] Comment on above: Performed By: #### 2 823-3, 2951-2 ####[facility] ([id number])[address], [address], [place] [address] comment (Bld) [Interp]Ordered By: Radha Perry on 04-10-2023 [facility] Potassiumon 04-10-2023 Potassium [Moles/Vol] 3.8 mmol/L 3.5 - 5.0 mmol/L [facility] Procalcitoninon 04-10-2023 Procalcitonin IA [Mass/Vol] 0.15 ng/mL High NINF - 0.05 ng/mL [facility] Procalcitonin IA [Mass/Vol]o n 04-10-2023 PROCALCITONIN 0.15 ng/mL High <0.05 [facility] Comment on above: Result Comment: NOTE <0.50 ng/mL - Low risk of severe sepsis and/or septic shock.<2.00 ng/mL - Recommend retesting within 6-24 hours.>2.00 ng/mL - High risk of sepsis and/or septic shock. Performed By: #### 1 9123-9, CBCA, 37703-6, CMP ####[facility] ([id number])[address] [facility], [address] [place] [address] Interpretation and review of laboratory results Abnormal [facility] SAFETY FIRE BOSS AB IgGon 04-10-2023 Ribonucleoprotein extractable nuclear IgG Qn (S) 1.0 High [facility] Rheumatoid factoron 04-10-19 24 Rheumatoid factor Nephelometry Qn (S) 14 [facility] Rheumatoid factor Nephelomet ry Qn (S)on 04-10-2023 RHEUMATOID FACTOR 14 IU/mL Normal <20 [facility] Comment on above: Performed By: #### 1 8323-6, SPE, 20838-5, 15352-6, 41785-7, AHP, IMEL, 5130-0, 07766-1, 95461-8, 24909-3 ####[facility] ([id number])[address] [facility], [address] [place] [address] [facility] Ribonucleoprotein extractabl e nuclear IgG Qn (S)on 04-10-2023 Interpretation and review of laboratory results Abnormal [facility] SAFETY FIRE BOSS ANTIBODY IGG 1.0 AI High <1.0 [facility] Comment on above: Performed By: #### 1 8323-6, SPE, 86449-1, 16683-1, 64928-1, AHP, IMEL, 5130-0, 54862-6, 26062-5, 12463-9 ####[facility] ([id number])[address], [address], [place] [address] SERUM PROTEIN ELECTROPHORESI Son 04-10-2023 Albumin [Mass/Vol] 2.4 g/dL Low 3.4-5.3 [facility] Comment on above: Performed By: #### 1 8323-6, SPE, 11811-4, 23113-9, 18547-1, AHP, IMEL, 5130-0, 97089-9, 56328-5, 60282-8 ####[facility] ([id number])[address], [address] [place] [address] ALPHA 1 GLOBULIN 0.5 g/dL High 0.1-0.4 [facility] Comment on above: Performed By: #### 1 8323-6, SPE, 36898-7, 67818-0, 79310-2, AHP, IMEL, 5130-0, 52716-2, 91555-6, 56345-4 ####[facility] ([id number])[address], [address] [place] [address] ALPHA 2 GLOBULIN 1.1 g/dL Normal 0.4-1.1 [facility] Comment on above: Performed By: #### 1 8323-6, SPE, 35291-6, 22271-8, 50672-0, AHP, IMEL, 5130-0, 53493-1, 48546-3, 35457-5 ####[facility] ([id number])[address], [address], [place] [address] BETA GLOBULIN 0.9 g/dL Normal 0.5-1.2 [facility] Comment on above: Performed By: #### 1 8323-6, SPE, 59006-4, 13820-4, 65172-8, AHP, IMEL, 5130-0, 86838-0, 88897-2, 81777-6 ####[facility] ([id number])[address], [address] [place] [address] GAMMA GLOBULIN 0.7 g/dL Normal 0.5-1.6 [facility] Comment on above: Performed By: #### 1 8323-6, SPE, 28996-6, 66293-4, 67054-5, AHP, IMEL, 5130-0, 35827-5, 43460-9, 99558-5 ####[facility] ([id number])[address], [address] [place] [address] PROT. ELECTROPHORESIS INTERP SEE SEPARATE REPORT Normal [facility] Comment on above: Performed By: #### 1 8323-6, SPE, 05584-1, 22867-6, 03519-4, AHP, IMEL, 5130-0, 36995-2, 21480-9, 30138-9 ####[facility] ([id number])[address] [facility] [address] [place] [address] Protein [Mass/Vol] 5.7 g/dL Low 6.0-8.0 [facility] Comment on above: Performed By: #### 1 8323-6, SPE, 05505-8, 48330-2, 74860-9, AHP, IMEL, 5130-0, 01692-7, 31408-5, 03114-6 ####[facility] ([id number])[address] [address] SODIUMon 04-10-2023 Sodium [Moles/Vol] 152 mmol/L High 134-146 [facility] Comment on above: Performed By: #### 2 823-3, 2951-2 ####[facility] ([id number])[address] [facility] [address] [place] [address] Ruelas extractable nuclear Ab +Ribonucleoprotein extractable nuclear IgG Qn (S)on 04-10-2023 RUELAS/SAFETY FIRE BOSS AB IGG <0.2 Normal <1.0 [facility] Comment on above: Performed By: #### 1 8323-6, SPE, 61106-6, 13616-4, 27377-2, AHP, IMEL, 5130-0, 88704-6, 95093-9, 84098-6 ####[facility] ([id number])[address], [address], [place] [address] Ruelas extractable nuclear Ig G Qn (S)on 04-10-2023 ANTI-RUELAS AB IGG <0.2 Normal <1.0 [facility] Comment on above: Performed By: #### 1 8323-6, SPE, 03918-0, 71002-2, 25914-9, AHP, IMEL, 5130-0, 65880-6, 67665-0, 40351-4 ####[facility] ([id number])[address], [address], [place] [address] Ruelas/SAFETY FIRE BOSS AB IgGon 4 Ruelas extractable nuclear Ab+Ribonucleoprotein extractable nuclear IgG Qn (S) NINF [facility] Sodiumon 04-10-2023 Sodium [Moles/Vol] 152 mmol/L High 134 - 146 mmol/L [facility] Sodium [Moles/Vol]on 024 Interpretation and review of laboratory results Abnormal [facility] US ABDOMEN LMTDon 04-10-2023 US ABDOMEN LMTD Normal [facility] US Abdomen limitedon 024 [facility] US Abdomen limitedOrdered By : Julio Cesar Gilliam on 04-10-2023 [facility] Work Phone: XR CHEST 1 VWon 04-10-2023 XR CHEST 1 VW Normal [facility] XR Chest Single viewon 04-10 [facility] (narrative) [facility] APTTon 04-09-2023 aPTT Coag (PPP) [Time] 32 s Pr [facility] CBC AND AUTO DIFFon 04-09-19 24 ABSOLUTE BASOPHIL 0.0 X10E9/L Normal 0.0-0.2 [facility] Comment on above: Performed By: #### C BCA, CMP ####[facility] ([id number])[address] [address], [place] [address] ABSOLUTE NEUTROPHIL 8.7 X10E9/L High 1.5-6.6 [facility] Comment on above: Performed By: #### C BCA, CMP ####[facility] ([id number])0 [address] [address], [place] [address] Basophils/100 WBC (Bld) 0.2 % Normal P [facility] Comment on above: Performed By: #### C BCA, CMP ####[facility] ([id number])[address] [address], [place] [address] Eosinophils (Bld) [#/Vol] 0.2 10*3/uL Normal 0.0-0.4 [facility] Comment on above: Performed By: #### C BCA, CMP ####[facility] ([id number])0 [address] [address], [place] [address] Eosinophils/100 WBC (Bld) 1.9 % Normal [facility] Comment on above: Performed By: #### C BCA, CMP ####[facility] ([id number])0 [address] [address], [place] [address] Erythrocyte distribution width (RBC) [Ratio] 15.4 % High 11.5-15.0 [facility] Comment on above: Performed By: #### C BCA, CMP ####[facility] ([id number])0 [address] [address], [place] [address] Hematocrit (Bld) [Volume fraction] 33.6 % Low 35-47 [facility] Comment on above: Performed By: #### C BCA, CMP ####[facility] ([id number])[address] [place] [address] Hemoglobin (Bld) [Mass/Vol] 11.5 g/dL Low 11.7-15.5 [facility] Comment on above: Performed By: #### C [place], CMP ####[facility] ([id number])[address] [place] [address] Lymphocytes (Bld) [#/Vol] 0.9 10*3/uL Low 1.0-3.5 [facility] Comment on above: Performed By: #### C [place], CMP ####[facility] ([id number])[address] [place] [address] Lymphocytes/100 WBC (Bld) 8.3 % Normal [facility] Comment on above: Performed By: #### C BROOKLYN, CMP ####[facility] ([id number])[address], [address] [place] [address] MCH (RBC) [Entitic mass] 29.3 pg Normal 27-34 [facility] Comment on above: Performed By: #### C BROOKLYN, CMP ####[facility] ([id number])[address], [address], [place] [address] MCHC (RBC) [Mass/Vol] 34.1 g/dL Normal 32-36 [facility] Comment on above: Performed By: #### C BROOKLYN, CMP ####[facility] ([id number])[address] [address] [place] [address] MCV (RBC) [Entitic vol] 86 fL Normal 80-100 P [facility] Comment on above: Performed By: #### C BROOKLYN, CMP ####[facility] ([id number])[address], [address], [place] [address] Monocytes (Bld) [#/Vol] 0.7 10*3/uL Normal 0-0.9 [facility] Comment on above: Performed By: #### C BROOKLYN, CMP ####[facility] ([id number])[address], [address], [place] [address] Monocytes/100 WBC (Bld) 6.9 % Normal [facility] Comment on above: Performed By: #### C BROOKLYN, CMP ####[facility] ([id number])[address], [address], [place] [address] Neutrophils/100 WBC (Bld) 82.7 % Normal [facility] Comment on above: Performed By: #### C BROOKLYN, CMP ####[facility] ([id number])[address], [place] [address] Platelet mean volume (Bld) [Entitic vol] 10.2 fL Normal 7-12 [facility] Comment on above: Performed By: #### C BROOKLYN, CMP ####[facility] ([id number])[address] [address], [place] [address] Platelets (Bld) [#/Vol] 74 10*3/uL Low 150-450 [facility] Comment on above: Performed By: #### C BROOKLYN, CMP ####[facility] ([id number])[address] [address], [place] [address] RBC COUNT 3.91 X10E12/L Normal 3.80-5.20 [facility] Comment on above: Performed By: #### C BROOKLYN, CMP ####[facility] ([id number])[address] [address], [place] [address] WBC (Bld) [#/Vol] 10.5 10*3/uL Normal 4.0-11.0 [facility] Comment on above: Performed By: #### C BROOKLYN, CMP ####[facility] ([id number])[address] [address], [place] [address] CBC auto differentialon 01-0 2-2024 Basophils (Bld) [#/Vol] 0.0 10*3/uL [facility] Basophils/100 WBC (Bld) 0.2 % P [facility] Eosinophils (Bld) [#/Vol] 0.2 10*3/uL [facility] Eosinophils/100 WBC (Bld) 1.9 % [facility] Erythrocyte distribution width (RBC) [Ratio] 15.4 % High 11.5 - 15.0 % [facility] Hematocrit (Bld) [Volume fraction] 33.6 % Low 35 - 47 % [facility] Hemoglobin (Bld) [Mass/Vol] 11.5 g/dL Low 11.7 - 15.5 g/dL [facility] Interpretation and review of laboratory results Abnormal [facility] Lymphocytes (Bld) [#/Vol] 0.9 10*3/uL Low [facility] Lymphocytes/100 WBC (Bld) 8.3 % [facility] MCH (RBC) [Entitic mass] 29.3 pg 27 - 34 pg [facility] MCHC (RBC) [Mass/Vol] 34.1 g/dL 32 - 3 6 g/dL [facility] MCV (RBC) [Entitic vol] 86 fL 80 - 100 fL [facility] Monocytes (Bld) [#/Vol] 0.7 10*3/uL [facility] Monocytes/100 WBC (Bld) 6.9 % [facility] Neutrophils (Bld) [#/Vol] 8.7 10*3/uL High [facility] Neutrophils/100 WBC (Bld) 82.7 % [facility] Platelet mean volume (Bld) [Entitic vol] 10.2 fL 7 - 12 fL [facility] Platelets (Bld) [#/Vol] 74 10*3/uL Low [facility] RBC (Bld) [#/Vol] 3.91 10*6/uL [facility] WBC corrected for nucl RBC Auto (Bld) [#/Vol] 10.5 [facility] COMPREHENSIVE METABOLIC PANE Dennis 04-09-2023 Albumin [Mass/Vol] 3.1 g/dL Low 3.2-5.3 [facility] Comment on above: Performed By: #### C BCA, CMP ####[facility] ([id number])[address], [address], [place] [address] ALP [Catalytic activity/Vol] 107 U/L Normal 39-130 [facility] Comment on above: Performed By: #### C BCA, CMP ####[facility] ([id number])[address], [address], [place] [address] ALT [Catalytic activity/Vol] 64 U/L High 0-31 [facility] Comment on above: Performed By: #### C BCA, CMP ####[facility] ([id number])[address], [address], [place] [address] Anion gap [Moles/Vol] 7 mmol/L Normal 5-15 [facility] Comment on above: Performed By: #### C BCA, CMP ####[facility] ([id number])[address], [address], [place] [address] AST [Catalytic activity/Vol] 35 U/L Normal 0-41 [facility] Comment on above: Performed By: #### C BCA, CMP ####[facility] ([id number])[address], [address], [place] [address] Bilirubin [Mass/Vol] 0.7 mg/dL Normal 0.3-1.2 [facility] Comment on above: Performed By: #### C BCA, CMP ####[facility] ([id number])[address], [address], [place] [address] Calcium [Mass/Vol] 8.4 mg/dL Low 8.5-10.5 [facility] Comment on above: Performed By: #### C BCA, CMP ####[facility] ([id number])[address], [address], [place] [address] Chloride [Moles/Vol] 113 mmol/L High 98-109 [facility] Comment on above: Performed By: #### C BCA, CMP ####[facility] ([id number])[address] [address] CO2 [Moles/Vol] 26 mmol/L Normal 22-32 [facility] Comment on above: Performed By: #### C BCA, CMP ####[facility] ([id number])[address] [address] Creatinine [Mass/Vol] 0.74 mg/dL Normal 0.40-1.00 [facility] Comment on above: Result Comment: METH OD TRACEABLE TO IDMS STANDARD Performed By: #### C BCA, CMP ####[facility] ([id number])[address] [address] GFR/1.73 sq M.predicted among non-blacks MDRD (S/P/Bld) [Vol rate/Area] 82 mL/min/{1.73_m2} Normal >59 [facility] Comment on above: Result Comment: Repo rted eGFR is based on theCKD-EPI 2020 equation that doesnot use a race coefficient. Performed By: #### C BCA, CMP ####[facility] ([id number])[address] [address] Glucose [Mass/Vol] 155 mg/dL High 65-99 [facility] Comment on above: Performed By: #### C BCA, CMP ####[facility] ([id number])[address] [address] Potassium [Moles/Vol] 3.5 mmol/L Normal 3.5-5.0 [facility] Comment on above: Performed By: #### C BCA, CMP ####[facility] ([id number])[address] [address] Protein [Mass/Vol] 6.1 g/dL Normal 6.0-8.0 [facility] Comment on above: Performed By: #### C BCA, CMP ####[facility] ([id number])[address], [address], [place] [address] Sodium [Moles/Vol] 146 mmol/L Normal 134-146 [facility] Comment on above: Performed By: #### C BCA, CMP ####[facility] ([id number])[address], [address], [place] [address] Urea nitrogen [Mass/Vol] 33 mg/dL High 5-27 [facility] Comment on above: Performed By: #### C BCA, CMP ####[facility] ([id number])[address], [address], [place] [address] CT [address] WO CONTon CT BRAIN WO CONT Normal [facility] CT Head WO contraston [facility] (narrative) [facility] CT Head WO contrastOrdered B y: Gabino Santos on 04-09-2023 [facility] Work Phone: Clinical Pathology Blood Sme ar Reviewon 04-09-2023 Clinical Pathology Blood Smear Review Normal [facility] Comment on above: Result Comment: [facility] [address] [place] [address] Clinical Pathology ReportPatient Name:ELLEN CHAN:1945 (Age: 78)Gender:FTaken:4Reported:4Physician(s):RY DE ANDA ([phone])Copy To: Rec. #:[id number]: #[id number] Pathologic DiagnosisPeripheral blood smear: Thrombocytopenia. See note.CommentNote: This is a chronic finding. The etiology is not evident. This may be due to splenic sequestration, ITP, liver disease, autoimmune disorders, drug or alcohol suppression, ineffective thrombopoiesis, etc. The remainder of the blood smear is unremarkable. Report Electronically Signed Outsps/04/10/2023Gabriela Castañeda MDInterpretation performed at [facility], [address] [place] [address], License number: [id number].Clinical ScsvuysZ84.0, R00.1 BLOOD SMEAR EVALUATIONCBC (04/09/2023 01:58): WBC = 10.5X10E9/L; HGB = 11.5g/dL; HCT = 33.6%; MCV = 86fL; PLT = 65O75U2/LOTHER LAB DATA: Retic count = 0.9%, haptoglobin = 318 mg/dL, iron saturation = 21%, folate= 12 ng/mL, vit B12= 416pg/mLBLOOD SMEAR:Leukocytes: There is slight neutrophilia, but no left shifting, toxic granulation or blasts. Lymphocytes and monocytes are unremarkable.Erythrocytes: Slight anisocytosis, occasional ovalocytes.Platelets: Decreased in number, morphologically unremarkable, no clumping.Specimen(s) Received Blood Smear for ReviewFee Codes(s):1; 55938 Cobalamin (Vitamin B12) [Mas s/Vol]on 04-09-2023 [facility] Comprehensive metabolic pane dennis 04-09-2023 Albumin [Mass/Vol] 3.1 g/dL Low 3.2 - 5.3 g/dL [facility] ALP [Catalytic activity/Vol] 107 U/L 39 - 130 U/L [facility] ALT No additional P-5'-P [Catalytic activity/Vol] 64 U/L High 0 - 31 U/L [facility] Anion gap [Moles/Vol] 7 mmol/L 5 - 15 mmol/L [facility] AST [Catalytic activity/Vol] 35 U/L 0 - 41 U/L [facility] Bilirubin [Mass/Vol] 0.7 mg/dL 0.3 - 1 .2 mg/dL [facility] Calcium [Mass/Vol] 8.4 mg/dL Low 8.5 - 10. 5 mg/dL [facility] Chloride [Moles/Vol] 113 mmol/L High 98 - 10 9 mmol/L [facility] CO2 [Moles/Vol] 26 mmol/L 22 - 32 mmol/L [facility] Creatinine [Mass/Vol] 0.74 mg/dL 0.40 - 1.00 mg/dL [facility] eGFR (CKD-EPI)non-race dependent 82 - PINF [facility] Glucose [Mass/Vol] 155 mg/dL High 65 - 99 mg/dL [facility] Interpretation and review of laboratory results Abnormal [facility] Potassium [Moles/Vol] 3.5 mmol/L 3.5 - 5.0 mmol/L [facility] Protein [Mass/Vol] 6.1 g/dL 6.0 - 8.0 g/dL [facility] Sodium [Moles/Vol] 146 mmol/L 134 - 146 mmol/L [facility] Urea nitrogen [Mass/Vol] 33 mg/dL High 5 - 27 mg/dL [facility] D-Dimeron 04-09-2023 Fibrin D-dimer DDU (PPP) [Mass/Vol] 257[address] High NINF [facility] Direct Coombson 04-09-2023 Polyspecific MELE Negative [facility] FERRITINon 04-09-2023 Ferritin [Mass/Vol] 618 ng/mL High 11-307 [facility] Comment on above: Performed By: #### 2 276-4, 2951-2, 2132-9, 2284-8, FEPR ####[facility] ([id number])[address] [place] [address], [address] [place] [address] Ferritinon 04-09-2023 Ferritin [Mass/Vol] 618 ng/mL High 11 - 307 ng/mL [facility] Ferritin [Mass/Vol]on 2023 Interpretation and review of laboratory results Abnormal [facility] Fibrin D-dimer DDU (PPP) [Ma ss/Vol]on 04-09-2023 D DIMER 50865 ng/mL DDU High <255 [facility] Comment on above: Result Comment: Resu lts >=255ng/mL DDU: Results may beindicative of the presence of VTE. The useof the Wells score and further diagnostictests should be considered. Elevated D-Dimerlevels can also be associated with DIC,neoplasm, , trauma and liver disease.Elevated levels of rheumatoid factor may leadto an overestimation of the D-Dimer level. Performed By: #### P INR, 05089-9, 68708-8 ####[facility] ([id number])[address], [address] [place] [address] Fibrinogenon 04-09-2023 Fibrinogen Coagulation.derived (PPP) [Mass/Vol] 602 mg/dL High 190 - 480 mg/dL [facility] Fibrinogen Coagulation.deriv ed (PPP) [Mass/Vol]on 04-09-2023 FIBRINOGEN 602 mg/dL High 190-480 [facility] Comment on above: Performed By: #### 2 823-3, 30740-0, 4679-7, 07431-9, 2951-2, 2532-0 ####[facility] ([id number])[address] [facility], [address] [place] [address] Interpretation and review of laboratory results Abnormal [facility] Folateon 04-09-2023 Folate [Mass/Vol] 12.0 ng/mL 5.8 - PINF ng/mL [facility] Folate [Mass/Vol]on 04-09-19 24 FOLIC ACID 12.0 ng/mL Normal >5.8 [facility] Comment on above: Result Comment: NEW REFERENCE RANGE Performed By: #### 2 276-4, 2951-2, 2132-9, 2284-8, FEPR ####[facility] ([id number])[address], [address] [place] [address] [facility] Haptoglobinon 04-09-2023 Haptoglobin Nephelometry [Mass/Vol] 318 mg/dL High 32 - 228 mg/dL [facility] Haptoglobin Nephelometry [Ma ss/Vol]on 04-09-2023 HAPTOGLOBIN 318 mg/dL High 32-228 [facility] Comment on above: Performed By: #### 2 823-3, 30513-5, 4679-7, 90831-2, 2951-2, 2532-0 ####[facility] ([id number])[address], [address] [place] [address] Interpretation and review of laboratory results Abnormal [facility] IRON PROFILEon 04-09-2023 Iron [Mass/Vol] 45 ug/dL Low 50-170 [facility] Comment on above: Performed By: #### 2 276-4, 2951-2, 2132-9, 2284-8, FEPR ####[facility] ([id number])[address], [address] [place] [address] IRON BINDING 217 ug/dL Low 250-425 [facility] Comment on above: Performed By: #### 2 276-4, 2951-2, 2-9, 4-8, FEPR ####[facility] ([id number])[address], [address] [place] [address] IRON SATURATION 21 % SATURATION Normal 15-50 [facility] Comment on above: Performed By: #### 2 276-4, 2951-2, 2-9, 2284-8, FEPR ####[facility] ([id number])[address], [address] [place] [address] Ionized magnesiumon 04-09-19 Magnesium Ionized ISE (Bld) [Moles/Vol] 0.75 mmol/L High 0.45 - 0.74 mmol/L [facility] Iron and TIBCon 04-09-2023 Iron [Mass/Vol] 45 ug/dL Low 50 - 170 ug/dL [facility] Iron binding capacity [Mass/Vol] 217 ug/dL Low 250 - 425 ug/dL [facility] Iron saturation [Mass fraction] 21 [facility] LDHon 04-09-2023 LDH [Catalytic activity/Vol] 297 U/L High 100 - 235 U/L [facility] LDH [Catalytic activity/Vol] on 04-09-2023 LDH 297 U/L High 100-235 [facility] Comment on above: Performed By: #### 2 823-3, 93778-2, 4679-7, 74911-4, 2951-2, 2532-0 ####[facility] ([id number])[address], [address] [place] [address] MAGNESIUMon 04-09-2023 Magnesium [Mass/Vol] 1.9 mg/dL Normal 1.8-2.6 [facility] Comment on above: Performed By: #### 1 9123-9, 2823-3, 2951-2 ####[facility] ([id number])[address], [address] [place] [address] Magnesiumon 04-09-2023 Magnesium [Mass/Vol] 1.9 mg/dL 1.8 - 2 .6 mg/dL [facility] Magnesium Ionized ISE (Bld) [Moles/Vol]on 04-09-2023 Magnesium [Moles/Vol] 0.75 mmol/L High 0.45-0.74 [facility] Comment on above: Result Comment: NEW REFERENCE RANGE Performed By: #### 7 3572-0 ####[facility] ([id number])[address], [address] [place] [address] Interpretation and review of laboratory results Abnormal [facility] No Panel Informationon 04-09 Interpretation and review of laboratory results Abnormal [facility] Interpretation and review of laboratory results Abnormal [facility] Interpretation and review of laboratory results Abnormal [facility] POTASSIUMon 04-09-2023 Potassium [Moles/Vol] 3.9 mmol/L Normal 3.5-5.0 [facility] Comment on above: Performed By: #### 2 823-3, 03460-5, 4679-7, 66793-4, 2951-2, 2532-0 ####[facility] ([id number])[address] [place] [address] Potassium [Moles/Vol] 3.4 mmol/L Low 3.5-5.0 [facility] Comment on above: Performed By: #### 1 9123-9, 2823-3, 2951-2 ####[facility] ([id number])[address] [place] [address] PROTIME AND INRon 04-09-2023 INR Coag (PPP) [Relative time] 1.1 {INR} Normal 0.8-1.1 [facility] Comment on above: Performed By: #### P INR, 19318-2, 14915-5 ####[facility] ([id number])[address] [place] [address] PT Coag (PPP) [Time] 13.3 s High 9.8-13.2 [facility] Comment on above: Performed By: #### P INR, 35756-5, 36669-9 ####[facility] ([id number])[address] [place] [address] [address] comment (Bld) [Interp]on 04-09-2023 STAFF REVIEW NOTE Normal [facility] Comment on above: Result Comment: [facility] [address] [place] [address] Clinical Pathology ReportPatient Name:ELLEN CHAN:1945 (Age:78)Gender:FTaken:4Reported:4Physician(s):JAMIE DE ANDA([phone])Copy To: Rec. #:[id number]:#[id number] Pathologic DiagnosisPeripheral blood smear: Thrombocytopenia. See note.CommentNote: This is a chronic finding. The etiology is not evident. Thismay be due to splenic sequestration, ITP, liver disease, autoimmunedisorders, drug or alcohol suppression, ineffective thrombopoiesis,etc. The remainder of the blood smear is unremarkable. Report Electronically Signed Outsps/04/10/2023Suparth Castañeda MDInterpretation performed at [facility], [address] [place] [address], License number: [id number].Clinical FbhcyutB29.0, R00.1 BLOOD SMEAR EVALUATIONCBC (04/09/2023 01:58): WBC = 10.5X10E9/L; HGB = 11.5g/dL;HCT = 33.6%; MCV = 86fL; PLT = 49K13Q8/LOTHER LAB DATA: Retic count = 0.9%, haptoglobin = 318 mg/dL, ironsaturation = 21%, folate= 12 ng/mL, vit B12= 416pg/mLBLOOD SMEAR:Leukocytes: There is slight neutrophilia, but no left shifting, toxicgranulation or blasts. Lymphocytes and monocytes are unremarkable.Erythrocytes: Slight anisocytosis, occasional ovalocytes.Platelets: Decreased in number, morphologically unremarkable, noclumping.Specimen(s) ReceivedBlood Smear for ReviewFee Codes(s):1; 65880 Potassiumon 04-09-2023 Potassium [Moles/Vol] 3.9 mmol/L 3.5 - 5.0 mmol/L [facility] Potassium [Moles/Vol] 3.4 mmol/L Low 3.5 - 5.0 mmol/L [facility] Potassium [Moles/Vol]on Interpretation and review of laboratory results Abnormal [facility] Protime & INRon 04-09-2023 INR Coag (PPP) [Relative time] 1.1 {INR} [facility] PT Coag (PPP) [Time] 13.3 s High [facility] Reticulocyteson 04-09-2023 Reticulocytes/100 RBC (Bld) 0.9 % 0.4 - 2.2 % [facility] Reticulocytes/100 RBC (Bld)o n 04-09-2023 RETICULOCYTE COUNT 0.9 % Normal 0.4-2.2 [facility] Comment on above: Performed By: #### 2 823-3, 99828-6, 4679-7, 32832-6, 2951-2, 2532-0 ####[facility] ([id number])[address], [address], [place] [address] [facility] SODIUMon 04-09-2023 Sodium [Moles/Vol] 151 mmol/L High 134-146 [facility] Comment on above: Performed By: #### 2 823-3, 32069-5, 4679-7, 62042-2, 2951-2, 2532-0 ####[facility] ([id number])[address], [address] [place] [address] Sodium [Moles/Vol] 149 mmol/L High 134-146 [facility] Comment on above: Performed By: #### 2 276-4, 2951-2, 2132-9, 2284-8, FEPR ####[facility] ([id number])[address], [address] [place] [address] Sodium [Moles/Vol] 146 mmol/L Normal 134-146 [facility] Comment on above: Performed By: #### 1 9123-9, 2823-3, 2951-2 ####[facility] ([id number])[address], [address], [place] [address] Sodium [Moles/Vol] 148 mmol/L High 134-146 [facility] Comment on above: Performed By: #### 2 951-2 ####[facility] ([id number])[address], [address], [place] [address] Sodiumon 04-09-2023 Sodium [Moles/Vol] 151 mmol/L High 134 - 146 mmol/L [facility] Sodium [Moles/Vol] 149 mmol/L High 134 - 146 mmol/L [facility] Sodium [Moles/Vol] 146 mmol/L 134 - 146 mmol/L [facility] VITAMIN B12on 04-09-2023 Cobalamin (Vitamin B12) [Mass/Vol] 416 pg/mL Normal 180-914 [facility] Comment on above: Performed By: #### 2 276-4, 2951-2, 2132-9, 2284-8, FEPR ####[facility] ([id number])[address], [address] [place] [address] Vitamin B12on 04-09-2023 Cobalamin (Vitamin B12) [Mass/Vol] 416 pg/mL 180 - 914 pg/mL [facility] XR CHEST 1 VWon 04-09-2023 XR CHEST 1 VW Normal [facility] XR CHEST 1 VW Normal [facility] XR Chest Single viewon 04-09 [facility] (narrative) [facility] (narrative) [facility] XR Chest Single viewOrdered By: Arianne Rodrigues on 04-09-2023 [facility] Work Phone: aPTT Coag (PPP) [Time]on aPTT Coag (Bld) [Time] 32 s Normal 26-37 [facility] Comment on above: Performed By: #### P INR, 53007-4, 84360-8 ####[facility] ([id number])[address], [place] [address] CBC AND AUTO DIFFon 04-08-19 24 ABSOLUTE BASOPHIL 0.0 X10E9/L Normal 0.0-0.2 [facility] Comment on above: Performed By: #### C MP, CBCA ####[facility] ([id number])[address], [address], [place] [address] ABSOLUTE NEUTROPHIL 10.2 X10E9/L High 1.5-6.6 [facility] Comment on above: Performed By: #### C MP, CBCA ####[facility] ([id number])[address], [address], [place] [address] Basophils/100 WBC (Bld) 0.1 % Normal [facility] Comment on above: Performed By: #### C MP, CBCA ####[facility] ([id number])[address] [place] [address] Eosinophils (Bld) [#/Vol] 0.1 10*3/uL Normal 0.0-0.4 [facility] Comment on above: Performed By: #### C MP, CBCA ####[facility] ([id number])[address] [address] [place] [address] Eosinophils/100 WBC (Bld) 1.0 % Normal [facility] Comment on above: Performed By: #### C MP, CBCA ####[facility] ([id number])[address] [address] [place] [address] Erythrocyte distribution width (RBC) [Ratio] 15.9 % High 11.5-15.0 [facility] Comment on above: Performed By: #### C MP, CBCA ####[facility] ([id number])[address] [address] [facility] [place] [address] Hematocrit (Bld) [Volume fraction] 36.4 % Normal 35-47 [facility] Comment on above: Performed By: #### C MP, CBCA ####[facility] ([id number])[address] [address], [place] [address] Hemoglobin (Bld) [Mass/Vol] 12.0 g/dL Normal 11.7-15.5 [facility] Comment on above: Performed By: #### C MP, CBCA ####[facility] ([id number])[address], [address], [place] [address] Lymphocytes (Bld) [#/Vol] 0.9 10*3/uL Low 1.0-3.5 [facility] Comment on above: Performed By: #### C MP, CBCA ####[facility] ([id number])[address] [address] [place] [address] Lymphocytes/100 WBC (Bld) 7.3 % Normal [facility] Comment on above: Performed By: #### C MP, CBCA ####[facility] ([id number])[address] [address], [place] [address] MCH (RBC) [Entitic mass] 28.7 pg Normal 27-34 [facility] Comment on above: Performed By: #### C MP, CBCA ####[facility] ([id number])[address] [address], [place] [address] MCHC (RBC) [Mass/Vol] 33.0 g/dL Normal 32-36 [facility] Comment on above: Performed By: #### C GUMARO, CBCA ####[facility] ([id number])[address] [address], [place] [address] MCV (RBC) [Entitic vol] 87 fL Normal 80-100 [facility] Comment on above: Performed By: #### C MP, CBCA ####[facility] ([id number])[address] [address], [place] [address] Monocytes (Bld) [#/Vol] 0.7 10*3/uL Normal 0-0.9 [facility] Comment on above: Performed By: #### C MP, CBCA ####[facility] ([id number])[address] [address], [place] [address] Monocytes/100 WBC (Bld) 6.0 % Normal [facility] Comment on above: Performed By: #### C MP, CBCA ####[facility] ([id number])[address] [address] Neutrophils/100 WBC (Bld) 85.6 % Normal [facility] Comment on above: Performed By: #### C MP, CBCA ####[facility] ([id number])[address] [address] Platelet mean volume (Bld) [Entitic vol] 10.0 fL Normal 7-12 [facility] Comment on above: Performed By: #### C MP, CBCA ####[facility] ([id number])[address] [address] Platelets (Bld) [#/Vol] 66 10*3/uL Low 150-450 [facility] Comment on above: Performed By: #### C MP, CBCA ####[facility] ([id number])[address] [address] RBC COUNT 4.18 X10E12/L Normal 3.80-5.20 [facility] Comment on above: Performed By: #### C MP, CBCA ####[facility] ([id number])[address] [address] WBC (Bld) [#/Vol] 11.8 10*3/uL High 4.0-11.0 [facility] Comment on above: Performed By: #### C MP, CBCA ####[facility] ([id number])[address] [address] CBC auto differentialon 0 Basophils (Bld) [#/Vol] 0.0 10*3/uL [facility] Basophils/100 WBC (Bld) 0.1 % P [facility] Eosinophils (Bld) [#/Vol] 0.1 10*3/uL [facility] Eosinophils/100 WBC (Bld) 1.0 % [facility] Erythrocyte distribution width (RBC) [Ratio] 15.9 % High 11.5 - 15.0 % [facility] Hematocrit (Bld) [Volume fraction] 36.4 % 35 - 47 % [facility] Hemoglobin (Bld) [Mass/Vol] 12.0 g/dL 11.7 - 15.5 g/dL [facility] Interpretation and review of laboratory results Abnormal [facility] Lymphocytes (Bld) [#/Vol] 0.9 10*3/uL Low [facility] Lymphocytes/100 WBC (Bld) 7.3 % [facility] MCH (RBC) [Entitic mass] 28.7 pg 27 - 34 pg [facility] MCHC (RBC) [Mass/Vol] 33.0 g/dL 32 - 3 6 g/dL [facility] MCV (RBC) [Entitic vol] 87 fL 80 - 100 fL [facility] Monocytes (Bld) [#/Vol] 0.7 10*3/uL [facility] Monocytes/100 WBC (Bld) 6.0 % P [facility] Neutrophils (Bld) [#/Vol] 10.2 10*3/uL High [facility] Neutrophils/100 WBC (Bld) 85.6 % [facility] Platelet mean volume (Bld) [Entitic vol] 10.0 fL 7 - 12 fL [facility] Platelets (Bld) [#/Vol] 66 10*3/uL Low P [facility] RBC (Bld) [#/Vol] 4.18 10*6/uL [facility] WBC corrected for nucl RBC Auto (Bld) [#/Vol] 11.8 High [facility] COMPREHENSIVE METABOLIC PANE Dennis 04-08-2023 Albumin [Mass/Vol] 3.2 g/dL Normal 3.2-5.3 [facility] Comment on above: Performed By: #### C MP, CBCA ####[facility] ([id number])2[address] [facility], [address] [place] [address] ALP [Catalytic activity/Vol] 105 U/L Normal 39-130 [facility] Comment on above: Performed By: #### C MP, CBCA ####[facility] ([id number])[address], [address], [place] [address] ALT [Catalytic activity/Vol] 60 U/L High 0-31 [facility] Comment on above: Performed By: #### C MP, CBCA ####[facility] ([id number])[address], [address], [place] [address] Anion gap [Moles/Vol] 12 mmol/L Normal 5-15 [facility] Comment on above: Performed By: #### C GUMARO, CBCA ####[facility] ([id number])[address], [address], [place] [address] AST [Catalytic activity/Vol] 40 U/L Normal 0-41 [facility] Comment on above: Performed By: #### C GUMARO, CBCA ####[facility] ([id number])[address], [address], [place] [address] Bilirubin [Mass/Vol] 0.7 mg/dL Normal 0.3-1.2 [facility] Comment on above: Performed By: #### C GUMARO, CBCA ####[facility] ([id number])[address], [address], [place] [address] Calcium [Mass/Vol] 8.9 mg/dL Normal 8.5-10.5 [facility] Comment on above: Performed By: #### C MP, CBCA ####[facility] ([id number])[address], [address], [place] [address] Chloride [Moles/Vol] 117 mmol/L High 98-109 [facility] Comment on above: Performed By: #### C MP, CBCA ####[facility] ([id number])[address], [address], [place] [address] CO2 [Moles/Vol] 29 mmol/L Normal 22-32 [facility] Comment on above: Performed By: #### C JA NAIK ####[facility] ([id number])[address] [address], [place] [address] Creatinine [Mass/Vol] 0.97 mg/dL Normal 0.40-1.00 [facility] Comment on above: Result Comment: METH OD TRACEABLE TO IDMS STANDARD Performed By: #### C JA NAIK ####[facility] ([id number])[address] [address] GFR/1.73 sq M.predicted among non-blacks MDRD (S/P/Bld) [Vol rate/Area] 59 mL/min/{1.73_m2} Low >59 [facility] Comment on above: Result Comment: Repo rted eGFR is based on theCKD-EPI 2020 equation that doesnot use a race coefficient. Performed By: #### C JA NAIK ####[facility] ([id number])[address] [address] [place] [address] Glucose [Mass/Vol] 135 mg/dL High 65-99 [facility] Comment on above: Performed By: #### C JA NAIK ####[facility] ([id number])[address] [address] Potassium [Moles/Vol] 3.5 mmol/L Normal 3.5-5.0 [facility] Comment on above: Performed By: #### C JA NAIK ####[facility] ([id number])[address] [place] [address] Protein [Mass/Vol] 6.4 g/dL Normal 6.0-8.0 [facility] Comment on above: Performed By: #### C JA NAIK ####[facility] ([id number])[address], [address], [place] [address] Sodium [Moles/Vol] 158 mmol/L High 134-146 [facility] Comment on above: Performed By: #### C GUMARO, CBCA ####[facility] ([id number])[address], [address], [place] [address] Urea nitrogen [Mass/Vol] 54 mg/dL High 5-27 [facility] Comment on above: Performed By: #### C GUMARO, CBCA ####[facility] ([id number])[address], [address] [place] [address] Comprehensive metabolic pane dennis 04-08-2023 Albumin [Mass/Vol] 3.2 g/dL 3.2 - 5.3 g/dL [facility] ALP [Catalytic activity/Vol] 105 U/L 39 - 130 U/L [facility] ALT No additional P-5'-P [Catalytic activity/Vol] 60 U/L High 0 - 31 U/L [facility] Anion gap [Moles/Vol] 12 mmol/L 5 - 15 mmol/L [facility] AST [Catalytic activity/Vol] 40 U/L 0 - 41 U/L [facility] Bilirubin [Mass/Vol] 0.7 mg/dL 0.3 - 1 .2 mg/dL [facility] Calcium [Mass/Vol] 8.9 mg/dL 8.5 - 10. 5 mg/dL [facility] Chloride [Moles/Vol] 117 mmol/L High 98 - 10 9 mmol/L [facility] CO2 [Moles/Vol] 29 mmol/L 22 - 32 mmol/L [facility] Creatinine [Mass/Vol] 0.97 mg/dL 0.40 - 1.00 mg/dL [facility] eGFR (CKD-EPI)non-race dependent 59 Low - PINF [facility] Glucose [Mass/Vol] 135 mg/dL High 65 - 99 mg/dL [facility] Interpretation and review of laboratory results Abnormal [facility] Potassium [Moles/Vol] 3.5 mmol/L 3.5 - 5.0 mmol/L [facility] Protein [Mass/Vol] 6.4 g/dL 6.0 - 8.0 g/dL [facility] Sodium [Moles/Vol] 158 mmol/L High 134 - 146 mmol/L [facility] Urea nitrogen [Mass/Vol] 54 mg/dL High 5 - 27 mg/dL [facility] No Panel Informationon 04-08 [facility] POTASSIUMon 04-08-2023 Potassium [Moles/Vol] 3.5 mmol/L Normal 3.5-5.0 [facility] Comment on above: Performed By: #### 2 823-3, 2951-2 ####[facility] ([id number])[address] [facility], [address] [address] Potassiumon 04-08-2023 Potassium [Moles/Vol] 3.5 mmol/L 3.5 - 5.0 mmol/L [facility] SODIUMon 04-08-2023 Sodium [Moles/Vol] 152 mmol/L High 134-146 [facility] Comment on above: Performed By: #### 2 951-2 ####[facility] ([id number])[address] [facility], [address] [address] Sodium [Moles/Vol] 155 mmol/L High 134-146 [facility] Comment on above: Performed By: #### 2 823-3, 2951-2 ####[facility] ([id number])2130 [facility], [address] [address] Sodiumon 04-08-2023 Sodium [Moles/Vol] 148 mmol/L High 134 - 146 mmol/L [facility] Sodium [Moles/Vol] 152 mmol/L High 134 - 146 mmol/L [facility] Sodium [Moles/Vol] 155 mmol/L High 134 - 146 mmol/L [facility] Sodium [Moles/Vol]on 024 Interpretation and review of laboratory results Abnormal [facility] Interpretation and review of laboratory results Abnormal [facility] Interpretation and review of laboratory results Abnormal [facility] XR CHEST 1 VWon 04-08-2023 XR CHEST 1 VW Normal [facility] XR Chest Single viewon 04-08 SE[facility]APACS [facility] Radiology Study observation (narrative) [facility] ARTERIAL BLOOD GASon 023 SHIRAZ'S TEST Pass Normal [facility] Comment on above: Performed By: #### A BG ####[facility] ([id number])[address] [place] [address] Base excess Calc (Bld) [Moles/Vol] 4.0 mmol/L High 0.0-2.0 [facility] Comment on above: Performed By: #### A BG ####[facility] ([id number])[address] [place] [address] Body temperature 98.6 [degF] Normal 37.0 [facility] Comment on above: Performed By: #### A BG ####[facility] ([id number])[address] [place] [address] HCO3 (Bld) [Moles/Vol] 26.6 mmol/L High 22-26 [facility] Comment on above: Performed By: #### A BG ####[facility] ([id number])[address] [place] [address] INSP. O2 CONC. 44 % Normal [facility] Comment on above: Performed By: #### A BG ####[facility] ([id number])[address] [place] [address] Oxygen (Bld) [Partial pressure] 67 mm[Hg] Low 80-100 [facility] Comment on above: Performed By: #### A BG ####[facility] ([id number])[address] [place] [address] Oxygen saturation in Blood 95.0 % Normal >90 [facility] Comment on above: Performed By: #### A BG ####[facility] ([id number])[address] [place] [address] OXYGEN SOURCE [facility] Comment on above: Performed By: #### A BG ####[facility] ([id number])[address] [place] [address] PCO2 33.3 MMHG Low 35-45 [facility] Comment on above: Performed By: #### A BG ####[facility] ([id number])[address] [place] [address] pH (Bld) 7.510 [pH] High 7.350-7.45 0 [facility] Comment on above: Performed By: #### A BG ####[facility] ([id number])[address] [place] [address] SAMPLE SITE [facility] Comment on above: Performed By: #### A BG ####[facility] ([id number])[address] [place] [address] SAMPLE TYPE ARTERIAL Normal [facility] Comment on above: Performed By: #### A BG ####[facility] ([id number])[address] [place] [address] Blood Gas, Arterialon 2022 Arterial patency Wrist artery --pre arterial puncture Pass [facility] Base excess Calc (Bld) [Moles/Vol] 4.0 mmol/L High [facility] CO2 (Bld) [Partial pressure] 33.3 mm[Hg] Low [facility] HCO3 (Bld) [Moles/Vol] 26.6 mmol/L High P [facility] Interpretation and review of laboratory results Abnormal [facility] Oxygen (Bld) [Partial pressure] 67 mm[Hg] Low [facility] Oxygen therapy source and amount [CARE] NC [facility] Oxygen/Inspired gas setting [Volume Fraction] Ventilator 44 % [facility] pH (Bld) 7.510 [pH] High 7.350 - 7.450 [facility] Specimen site Narrative [facility] P [facility] Specimen type Nom (Spec) ARTERIAL [facility] CBC AND AUTO DIFFon 04-07-20 ABSOLUTE BASOPHIL 0.0 X10E9/L Normal 0.0-0.2 [facility] Comment on above: Performed By: #### C GUMARO CBCA ####[facility] ([id number])[address], [address], [place] [address] ABSOLUTE NEUTROPHIL 13.3 X10E9/L High 1.5-6.6 [facility] Comment on above: Performed By: #### C GUMARO CBCA ####[facility] ([id number])[address], [address], [place] [address] Basophils/100 WBC (Bld) 0.1 % Normal [facility] Comment on above: Performed By: #### C GUMARO CBCA ####[facility] ([id number])[address] [address] [place] [address] Eosinophils (Bld) [#/Vol] 0.0 10*3/uL Normal 0.0-0.4 [facility] Comment on above: Performed By: #### C GUMARO CBCA ####[facility] ([id number])[address] [address] [place] [address] Eosinophils/100 WBC (Bld) 0.0 % Normal [facility] Comment on above: Performed By: #### C GUMARO CBCA ####[facility] ([id number])[address], [address], [place] [address] Erythrocyte distribution width (RBC) [Ratio] 15.9 % High 11.5-15.0 [facility] Comment on above: Performed By: #### C GUMARO CBCA ####[facility] ([id number])[address] [address], [place] [address] Hematocrit (Bld) [Volume fraction] 38.6 % Normal 35-47 [facility] Comment on above: Performed By: #### C MP, CBCA ####[facility] ([id number])[address], [address], [place] [address] Hemoglobin (Bld) [Mass/Vol] 12.7 g/dL Normal 11.7-15.5 [facility] Comment on above: Performed By: #### C MP, CBCA ####[facility] ([id number])[address] [address] [place] [address] Lymphocytes (Bld) [#/Vol] 0.7 10*3/uL Low 1.0-3.5 [facility] Comment on above: Performed By: #### C MP, CBCA ####[facility] ([id number])[address] [address] [place] [address] Lymphocytes/100 WBC (Bld) 4.5 % Normal [facility] Comment on above: Performed By: #### C MP, CBCA ####[facility] ([id number])[address] [address] [place] [address] MCH (RBC) [Entitic mass] 28.6 pg Normal 27-34 [facility] Comment on above: Performed By: #### C MP, CBCA ####[facility] ([id number])[address] [address], [place] [address] MCHC (RBC) [Mass/Vol] 32.8 g/dL Normal 32-36 [facility] Comment on above: Performed By: #### C MP, CBCA ####[facility] ([id number])[address] [address], [place] [address] MCV (RBC) [Entitic vol] 87 fL Normal 80-100 [facility] Comment on above: Performed By: #### C MP, CBCA ####[facility] ([id number])[address], [address], [place] [address] Monocytes (Bld) [#/Vol] 0.8 10*3/uL Normal 0-0.9 [facility] Comment on above: Performed By: #### C MP, CBCA ####[facility] ([id number])[address], [address], [place] [address] Monocytes/100 WBC (Bld) 5.6 % Normal [facility] Comment on above: Performed By: #### C MP, CBCA ####[facility] ([id number])[address], [address], [place] [address] Neutrophils/100 WBC (Bld) 89.8 % Normal [facility] Comment on above: Performed By: #### C MP, CBCA ####[facility] ([id number])[address], [address], [place] [address] Platelet mean volume (Bld) [Entitic vol] 10.8 fL Normal 7-12 [facility] Comment on above: Performed By: #### C MP, CBCA ####[facility] ([id number])[address], [address], [place] [address] Platelets (Bld) [#/Vol] 58 10*3/uL Low 150-450 P [facility] Comment on above: Performed By: #### C MP, CBCA ####[facility] ([id number])[address], [address], [place] [address] RBC COUNT 4.43 X10E12/L Normal 3.80-5.20 [facility] Comment on above: Performed By: #### C MP, CBCA ####[facility] ([id number])[address], [address], [place] [address] WBC (Bld) [#/Vol] 14.8 10*3/uL High 4.0-11.0 [facility] Comment on above: Performed By: #### C MP, CBCA ####[facility] ([id number])[address], [address], [place] [address] CBC auto differentialon -3 Basophils (Bld) [#/Vol] 0.0 10*3/uL [facility] Basophils/100 WBC (Bld) 0.1 % P [facility] Eosinophils (Bld) [#/Vol] 0.0 10*3/uL [facility] Eosinophils/100 WBC (Bld) 0.0 % [facility] Erythrocyte distribution width (RBC) [Ratio] 15.9 % High 11.5 - 15.0 % [facility] Hematocrit (Bld) [Volume fraction] 38.6 % 35 - 47 % [facility] Hemoglobin (Bld) [Mass/Vol] 12.7 g/dL 11.7 - 15.5 g/dL [facility] Interpretation and review of laboratory results Abnormal [facility] Lymphocytes (Bld) [#/Vol] 0.7 10*3/uL Low [facility] Lymphocytes/100 WBC (Bld) 4.5 % [facility] MCH (RBC) [Entitic mass] 28.6 pg 27 - 34 pg [facility] MCHC (RBC) [Mass/Vol] 32.8 g/dL 32 - 3 6 g/dL [facility] MCV (RBC) [Entitic vol] 87 fL 80 - 100 fL [facility] Monocytes (Bld) [#/Vol] 0.8 10*3/uL [facility] Monocytes/100 WBC (Bld) 5.6 % [facility] Neutrophils (Bld) [#/Vol] 13.3 10*3/uL High [facility] Neutrophils/100 WBC (Bld) 89.8 % [facility] Platelet mean volume (Bld) [Entitic vol] 10.8 fL 7 - 12 fL [facility] Platelets (Bld) [#/Vol] 58 10*3/uL Low P [facility] RBC (Bld) [#/Vol] 4.43 10*6/uL [facility] WBC corrected for nucl RBC Auto (Bld) [#/Vol] 14.8 High [facility] COMPREHENSIVE METABOLIC PANE Dennis 04-07-2023 Albumin [Mass/Vol] 3.5 g/dL Normal 3.2-5.3 [facility] Comment on above: Performed By: #### C GUMARO CBCA ####[facility] ([id number])[address] [place] [address] ALP [Catalytic activity/Vol] 104 U/L Normal 39-130 [facility] Comment on above: Performed By: #### C GUMARO CBCA ####[facility] ([id number])[address] [place] [address] ALT [Catalytic activity/Vol] 56 U/L High 0-31 [facility] Comment on above: Performed By: #### C GUMARO CBCA ####[facility] ([id number])[address], [address] [place] [address] Anion gap [Moles/Vol] 11 mmol/L Normal 5-15 [facility] Comment on above: Performed By: #### C GUMARO CBCA ####[facility] ([id number])[address] [place] [address] AST [Catalytic activity/Vol] 39 U/L Normal 0-41 [facility] Comment on above: Performed By: #### C GUMARO CBCA ####[facility] ([id number])[address] [place] [address] Bilirubin [Mass/Vol] 0.9 mg/dL Normal 0.3-1.2 [facility] Comment on above: Performed By: #### C MP, CBCA ####[facility] ([id number])[address], [address], [place] [address] Calcium [Mass/Vol] 9.2 mg/dL Normal 8.5-10.5 [facility] Comment on above: Performed By: #### C JA NAIK ####[facility] ([id number])[address], [place] [address] Chloride [Moles/Vol] 116 mmol/L High 98-109 [facility] Comment on above: Performed By: #### C JA NAIK ####[facility] ([id number])[address], [address], [place] [address] CO2 [Moles/Vol] 30 mmol/L Normal 22-32 [facility] Comment on above: Performed By: #### C JA NAIK ####[facility] ([id number])[address] [address], [place] [address] Creatinine [Mass/Vol] 1.11 mg/dL High 0.40-1.00 [facility] Comment on above: Result Comment: METH OD TRACEABLE TO IDMS STANDARD Performed By: #### C JA NAIK ####[facility] ([id number])[address] [address], [place] [address] GFR/1.73 sq M.predicted among non-blacks MDRD (S/P/Bld) [Vol rate/Area] 50 mL/min/{1.73_m2} Low >59 [facility] Comment on above: Result Comment: Repo rted eGFR is based on theCKD-EPI 2020 equation that doesnot use a race coefficient. Performed By: #### C JA NAIK ####[facility] ([id number])[address] [address] [place] [address] Glucose [Mass/Vol] 112 mg/dL High 65-99 [facility] Comment on above: Performed By: #### C GUMARO CBCA ####[facility] ([id number])[address], [address] [place] [address] Potassium [Moles/Vol] 4.0 mmol/L Normal 3.5-5.0 [facility] Comment on above: Performed By: #### C GUMARO, CBCA ####[facility] ([id number])[address], [address] [place] [address] Protein [Mass/Vol] 6.9 g/dL Normal 6.0-8.0 [facility] Comment on above: Performed By: #### C GUMARO CBCA ####[facility] ([id number])[address], [address], [place] [address] Sodium [Moles/Vol] 157 mmol/L High 134-146 [facility] Comment on above: Performed By: #### C GUMARO CBCA ####[facility] ([id number])[address], [address] [place] [address], [place] [address] Urea nitrogen [Mass/Vol] 53 mg/dL High 5-27 [facility] Comment on above: Performed By: #### C GUMARO CBCA ####[facility] ([id number])[address], [address] [place] [address], [place] [address] [place] BRAIN WO CONTon CT BRAIN WO CONT Normal [facility] Comprehensive metabolic pane dennis 04-07-2023 Albumin [Mass/Vol] 3.5 g/dL 3.2 - 5.3 g/dL [facility] ALP [Catalytic activity/Vol] 104 U/L 39 - 130 U/L [facility] ALT No additional P-5'-P [Catalytic activity/Vol] 56 U/L High 0 - 31 U/L [facility] Anion gap [Moles/Vol] 11 mmol/L 5 - 15 mmol/L [facility] AST [Catalytic activity/Vol] 39 U/L 0 - 41 U/L [facility] Bilirubin [Mass/Vol] 0.9 mg/dL 0.3 - 1 .2 mg/dL [facility] Calcium [Mass/Vol] 9.2 mg/dL 8.5 - 10. 5 mg/dL [facility] Chloride [Moles/Vol] 116 mmol/L High 98 - 10 9 mmol/L [facility] CO2 [Moles/Vol] 30 mmol/L 22 - 32 mmol/L [facility] Creatinine [Mass/Vol] 1.11 mg/dL High 0.40 - 1.00 mg/dL [facility] eGFR (CKD-EPI)non-race dependent 50 Low - PINF [facility] Glucose [Mass/Vol] 112 mg/dL High 65 - 99 mg/dL [facility] Interpretation and review of laboratory results Abnormal [facility] Potassium [Moles/Vol] 4.0 mmol/L 3.5 - 5.0 mmol/L [facility] Protein [Mass/Vol] 6.9 g/dL 6.0 - 8.0 g/dL [facility] Sodium [Moles/Vol] 157 mmol/L High 134 - 146 mmol/L [facility] Urea nitrogen [Mass/Vol] 53 mg/dL High 5 - 27 mg/dL [facility] Glucose Glucometer (BldC) [M ass/Vol]on 04-07-2023 Glucose [Mass/Vol] 111 mg/dL High 65-99 [facility] Glucose [Mass/Vol] 111 mg/dL High 65 - 99 mg/dL [facility] Interpretation and review of laboratory results Abnormal [facility] XR CHEST 1 VWon 04-07-2023 XR CHEST 1 VW Normal [facility] XR Chest Single viewon 04-07 SECTRAPACS [facility] Radiology Study observation (narrative) [facility] XR Chest Single viewOrdered By: Rajan Mtz on 04-07-2023 [facility] Work Phone: ARTERIAL BLOOD GASon 023 SHIRAZ'S TEST Pass Normal [facility] Comment on above: Performed By: #### A BG ####[facility] ([id number])2141 [place] [address] Base excess Calc (Bld) [Moles/Vol] 2.0 mmol/L Normal 0.0-2.0 [facility] Comment on above: Performed By: #### A BG ####[facility] ([id number])[address] [place] [address] Body temperature 98.6 [degF] Normal 37.0 [facility] Comment on above: Performed By: #### A BG ####[facility] ([id number])2141 [place] [address] HCO3 (Bld) [Moles/Vol] 23.6 mmol/L Normal 22-26 [facility] Comment on above: Performed By: #### A BG ####[facility] ([id number])2141 [place] [address] INSP. O2 CONC. 28 % Normal [facility] Comment on above: Performed By: #### A BG ####[facility] ([id number])2141 [place] [address] Oxygen (Bld) [Partial pressure] 54 mm[Hg] Low 80-100 [facility] Comment on above: Performed By: #### A BG ####[facility] ([id number])2141 [place] [address] Oxygen saturation in Blood 92.0 % Normal >90 [facility] Comment on above: Performed By: #### A BG ####[facility] ([id number])[address] [place] [address] OXYGEN SOURCE [facility] Comment on above: Performed By: #### A BG ####[facility] ([id number])2141 [place] [address] PCO2 28.0 MMHG Low 35-45 [facility] Comment on above: Performed By: #### A BG ####[facility] ([id number])2141 [place] [address] pH (Bld) 7.535 [pH] High 7.350-7.45 0 [facility] Comment on above: Performed By: #### A BG ####[facility] ([id number])2141 [place] [address] SAMPLE SITE RRad Normal [facility] Comment on above: Performed By: #### A BG ####[facility] ([id number])2141 [place] [address] SAMPLE TYPE ARTERIAL Normal [facility] Comment on above: Performed By: #### A BG ####[facility] ([id number])2141 [place] [address] Blood Gas, Arterialon 2022 Arterial patency Wrist artery --pre arterial puncture Pass [facility] Base excess Calc (Bld) [Moles/Vol] 2.0 mmol/L [facility] CO2 (Bld) [Partial pressure] 28.0 mm[Hg] Low [facility] HCO3 (Bld) [Moles/Vol] 23.6 mmol/L [facility] Interpretation and review of laboratory results Abnormal [facility] Oxygen (Bld) [Partial pressure] 54 mm[Hg] Low [facility] Oxygen therapy source and amount [CARE] NC [facility] Oxygen/Inspired gas setting [Volume Fraction] Ventilator 28 % [facility] pH (Bld) 7.535 [pH] High 7.350 - 7.450 [facility] Specimen site Narrative RRad P [facility] Specimen type Nom (Spec) ARTERIAL [facility] CBC AND AUTO DIFFon 04-06-20 ABSOLUTE BASOPHIL 0.0 X10E9/L Normal 0.0-0.2 [facility] Comment on above: Performed By: #### C MP, CBCA ####[facility] ([id number])[address], [address] [place] [address] ABSOLUTE NEUTROPHIL 14.5 X10E9/L High 1.5-6.6 [facility] Comment on above: Performed By: #### C MP, CBCA ####[facility] ([id number])[address] [address] [place] [address] Basophils/100 WBC (Bld) 0.1 % Normal [facility] Comment on above: Performed By: #### C MP, CBCA ####[facility] ([id number])[address] [address], [place] [address] Eosinophils (Bld) [#/Vol] 0.0 10*3/uL Normal 0.0-0.4 [facility] Comment on above: Performed By: #### C GUMARO, CBCA ####[facility] ([id number])[address] [address], [place] [address] Eosinophils/100 WBC (Bld) 0.2 % Normal [facility] Comment on above: Performed By: #### C GUMARO, CBCA ####[facility] ([id number])[address] [address] [place] [address] Erythrocyte distribution width (RBC) [Ratio] 15.8 % High 11.5-15.0 [facility] Comment on above: Performed By: #### C GUMARO, CBCA ####[facility] ([id number])[address] [address] [place] [address] Hematocrit (Bld) [Volume fraction] 40.3 % Normal 35-47 [facility] Comment on above: Performed By: #### C MP, CBCA ####[facility] ([id number])[address] [address] [place] [address] Hemoglobin (Bld) [Mass/Vol] 13.1 g/dL Normal 11.7-15.5 [facility] Comment on above: Performed By: #### C MP, CBCA ####[facility] ([id number])[address] [address] [place] [address] Lymphocytes (Bld) [#/Vol] 0.9 10*3/uL Low 1.0-3.5 [facility] Comment on above: Performed By: #### C MP, CBCA ####[facility] ([id number])[address], [address] [place] [address] Lymphocytes/100 WBC (Bld) 5.2 % Normal [facility] Comment on above: Performed By: #### C MP, CBCA ####[facility] ([id number])[address] [address] [place] [address] MCH (RBC) [Entitic mass] 28.2 pg Normal 27-34 [facility] Comment on above: Performed By: #### C MP, CBCA ####[facility] ([id number])[address] [address], [place] [address] MCHC (RBC) [Mass/Vol] 32.5 g/dL Normal 32-36 [facility] Comment on above: Performed By: #### C MP, CBCA ####[facility] ([id number])[address] [address] [place] [address], [place] [address] MCV (RBC) [Entitic vol] 87 fL Normal 80-100 [facility] Comment on above: Performed By: #### C MP, CBCA ####[facility] ([id number])[address] [address] [place] [address] Monocytes (Bld) [#/Vol] 0.9 10*3/uL Normal 0-0.9 [facility] Comment on above: Performed By: #### C MP, CBCA ####[facility] ([id number])[address], [address], [place] [address] Monocytes/100 WBC (Bld) 5.6 % Normal [facility] Comment on above: Performed By: #### C MP, CBCA ####[facility] ([id number])[address], [address], [place] [address] Neutrophils/100 WBC (Bld) 88.9 % Normal [facility] Comment on above: Performed By: #### C MP, CBCA ####[facility] ([id number])[address], [address] [place] [address] Platelet mean volume (Bld) [Entitic vol] 9.9 fL Normal 7-12 [facility] Comment on above: Performed By: #### C MP, CBCA ####[facility] ([id number])[address] [address] [place] [address] Platelets (Bld) [#/Vol] 69 10*3/uL Low 150-450 P [facility] Comment on above: Performed By: #### C MP, CBCA ####[facility] ([id number])[address], [address] [place] [address] RBC COUNT 4.64 X10E12/L Normal 3.80-5.20 [facility] Comment on above: Performed By: #### C MP, CBCA ####[facility] ([id number])[address] [address] [place] [address], [place] [address] WBC (Bld) [#/Vol] 16.3 10*3/uL High 4.0-11.0 [facility] Comment on above: Performed By: #### C MP, CBCA ####[facility] ([id number])[address] [address], [place] [address] CBC auto differentialon 12-3 0-2022 Basophils (Bld) [#/Vol] 0.0 10*3/uL [facility] Basophils/100 WBC (Bld) 0.1 % P [facility] Eosinophils (Bld) [#/Vol] 0.0 10*3/uL [facility] Eosinophils/100 WBC (Bld) 0.2 % [facility] Erythrocyte distribution width (RBC) [Ratio] 15.8 % High 11.5 - 15.0 % [facility] Hematocrit (Bld) [Volume fraction] 40.3 % 35 - 47 % [facility] Hemoglobin (Bld) [Mass/Vol] 13.1 g/dL 11.7 - 15.5 g/dL [facility] Interpretation and review of laboratory results Abnormal [facility] Lymphocytes (Bld) [#/Vol] 0.9 10*3/uL Low [facility] Lymphocytes/100 WBC (Bld) 5.2 % [facility] MCH (RBC) [Entitic mass] 28.2 pg 27 - 34 pg [facility] MCHC (RBC) [Mass/Vol] 32.5 g/dL 32 - 3 6 g/dL [facility] MCV (RBC) [Entitic vol] 87 fL 80 - 100 fL [facility] Monocytes (Bld) [#/Vol] 0.9 10*3/uL [facility] Monocytes/100 WBC (Bld) 5.6 % [facility] Neutrophils (Bld) [#/Vol] 14.5 10*3/uL High [facility] Neutrophils/100 WBC (Bld) 88.9 % [facility] Platelet mean volume (Bld) [Entitic vol] 9.9 fL 7 - 12 fL [facility] Platelets (Bld) [#/Vol] 69 10*3/uL Low P [facility] RBC (Bld) [#/Vol] 4.64 10*6/uL [facility] WBC corrected for nucl RBC Auto (Bld) [#/Vol] 16.3 High [facility] COMPREHENSIVE METABOLIC PANE Dennis 04-06-2023 Albumin [Mass/Vol] 3.7 g/dL Normal 3.2-5.3 [facility] Comment on above: Performed By: #### C MP, CBCA ####[facility] ([id number])[address], [address], [place] [address] ALP [Catalytic activity/Vol] 87 U/L Normal 39-130 [facility] Comment on above: Performed By: #### C GUMARO CBCA ####[facility] ([id number])[address], [address], [place] [address] ALT [Catalytic activity/Vol] 34 U/L High 0-31 [facility] Comment on above: Performed By: #### C GUMARO CBCA ####[facility] ([id number])[address], [address], [place] [address] Anion gap [Moles/Vol] 11 mmol/L Normal 5-15 [facility] Comment on above: Performed By: #### C GUMARO CBCA ####[facility] ([id number])[address], [address], [place] [address] AST [Catalytic activity/Vol] 28 U/L Normal 0-41 [facility] Comment on above: Performed By: #### C GUMARO CBCA ####[facility] ([id number])[address], [address], [place] [address] Bilirubin [Mass/Vol] 0.6 mg/dL Normal 0.3-1.2 [facility] Comment on above: Performed By: #### C GUMARO CBCA ####[facility] ([id number])[address], [address], [place] [address] Calcium [Mass/Vol] 9.5 mg/dL Normal 8.5-10.5 [facility] Comment on above: Performed By: #### C GUMARO CBCA ####[facility] ([id number])[address], [address], [place] [address] Chloride [Moles/Vol] 114 mmol/L High 98-109 [facility] Comment on above: Performed By: #### C JA NAIK ####[facility] ([id number])[address], [place] [address] CO2 [Moles/Vol] 27 mmol/L Normal 22-32 [facility] Comment on above: Performed By: #### C GUMARO CBCA ####[facility] ([id number])[address], [address], [place] [address] Creatinine [Mass/Vol] 0.70 mg/dL Normal 0.40-1.00 [facility] Comment on above: Result Comment: METH OD TRACEABLE TO IDMS STANDARD Performed By: #### C JA NAIK ####[facility] ([id number])[address], [address], [place] [address] GFR/1.73 sq M.predicted among non-blacks MDRD (S/P/Bld) [Vol rate/Area] 87 mL/min/{1.73_m2} Normal >59 [facility] Comment on above: Result Comment: Repo rted eGFR is based on theCKD-EPI 2020 equation that doesnot use a race coefficient. Performed By: #### C JA NAIK ####[facility] ([id number])[address], [address], [place] [address] Glucose [Mass/Vol] 106 mg/dL High 65-99 [facility] Comment on above: Performed By: #### C JA NAIK ####[facility] ([id number])[address] [address], [place] [address] Potassium [Moles/Vol] 3.7 mmol/L Normal 3.5-5.0 [facility] Comment on above: Performed By: #### C ELIAS NAIKA ####[facility] ([id number])[address], [address], [place] [address] Protein [Mass/Vol] 6.8 g/dL Normal 6.0-8.0 [facility] Comment on above: Performed By: #### C GUMARO CBCA ####[facility] ([id number])[address], [address] [place] [address] Sodium [Moles/Vol] 152 mmol/L High 134-146 [facility] Comment on above: Performed By: #### C GUMARO, CBCA ####[facility] ([id number])[address], [place] [address] Urea nitrogen [Mass/Vol] 39 mg/dL High 5-27 [facility] Comment on above: Performed By: #### C GUMARO, CBCA ####[facility] ([id number])[address], [address] [place] [address] [address] CTA CHESTon 04-06-2023 CT CTA CHEST Normal [facility] CT Chest WO and CT angiogram Coronary arteries W contrast Mónica [facility]-06[facility] (n[facility]ative[facility] CT Head WO [facility] CT Head WO contrastOrdered B y: Julio Cesar Vasquezdridge on 04-06-2023 [facility] Work Phone: Comprehensive metabolic pane dennis 04-06-2023 Albumin [Mass/Vol] 3.7 g/dL 3.2 - 5.3 g/dL [facility] ALP [Catalytic activity/Vol] 87 U/L 39 - 130 U/L [facility] ALT No additional P-5'-P [Catalytic activity/Vol] 34 U/L High 0 - 31 U/L [facility] Anion gap [Moles/Vol] 11 mmol/L 5 - 15 mmol/L [facility] AST [Catalytic activity/Vol] 28 U/L 0 - 41 U/L [facility] Bilirubin [Mass/Vol] 0.6 mg/dL 0.3 - 1 .2 mg/dL [facility] Calcium [Mass/Vol] 9.5 mg/dL 8.5 - 10. 5 mg/dL [facility] Chloride [Moles/Vol] 114 mmol/L High 98 - 10 9 mmol/L [facility] CO2 [Moles/Vol] 27 mmol/L 22 - 32 mmol/L [facility] Creatinine [Mass/Vol] 0.70 mg/dL 0.40 - 1.00 mg/dL [facility] eGFR (CKD-EPI)non-race dependent 87 - PINF [facility] Glucose [Mass/Vol] 106 mg/dL High 65 - 99 mg/dL [facility] Interpretation and review of laboratory results Abnormal [facility] Potassium [Moles/Vol] 3.7 mmol/L 3.5 - 5.0 mmol/L [facility] Protein [Mass/Vol] 6.8 g/dL 6.0 - 8.0 g/dL [facility] Sodium [Moles/Vol] 152 mmol/L High 134 - 146 mmol/L [facility] Urea nitrogen [Mass/Vol] 39 mg/dL High 5 - 27 mg/dL [facility] POTASSIUMon 04-06-2023 Potassium [Moles/Vol] 4.7 mmol/L Normal 3.5-5.0 [facility] Comment on above: Performed By: #### 2 823-3, 71865-5 ####[facility] ([id number])[address] [place] [address], [address] [place] [address] Potassiumon 04-06-2023 Potassium [Moles/Vol] 4.7 mmol/L 3.5 - 5.0 mmol/L [facility] Potassium [Moles/Vol]on 03-10 [facility] Procalcitoninon 04-06-2023 Procalcitonin IA [Mass/Vol] 0.15 ng/mL High NINF - 0.05 ng/mL [facility] Procalcitonin IA [Mass/Vol]o n 04-06-2023 Interpretation and review of laboratory results Abnormal [facility] PROCALCITONIN 0.15 ng/mL High <0.05 [facility] Comment on above: Result Comment: NOTE <0.50 ng/mL - Low risk of severe sepsis and/or septic shock.<2.00 ng/mL - Recommend retesting within 6-24 hours.>2.00 ng/mL - High risk of sepsis and/or septic shock. Performed By: #### 2 823-3, 57352-6 ####[facility] ([id number])[address], [address] [place] [address] XR CHEST 1 VWon 04-06-2023 XR CHEST 1 VW Normal [facility] XR Chest Single viewon 04-06 SECTRAPACS [facility] Radiology Study observation (narrative) [facility] XR Chest Single viewOrdered By: Jose G Varela on 04-06-2023 [facility] Work Phone: CBC AND AUTO DIFFon 04-05-20 ABSOLUTE BASOPHIL 0.0 X10E9/L Normal 0.0-0.2 [facility] Comment on above: Performed By: #### C MP, CBCA ####[facility] ([id number])[address], [address] [place] [address] ABSOLUTE NEUTROPHIL 13.3 X10E9/L High 1.5-6.6 [facility] Comment on above: Performed By: #### C MP, CBCA ####[facility] ([id number])[address], [address] [place] [address] Basophils/100 WBC (Bld) 0.0 % Normal [facility] Comment on above: Performed By: #### C MP, CBCA ####[facility] ([id number])[address], [address] [address] Eosinophils (Bld) [#/Vol] 0.0 10*3/uL Normal 0.0-0.4 [facility] Comment on above: Performed By: #### C MP, CBCA ####[facility] ([id number])[address] [address] [place] [address] Eosinophils/100 WBC (Bld) 0.1 % Normal [facility] Comment on above: Performed By: #### C MP, CBCA ####[facility] ([id number])[address] [place] [address] Erythrocyte distribution width (RBC) [Ratio] 15.8 % High 11.5-15.0 [facility] Comment on above: Performed By: #### C MP, CBCA ####[facility] ([id number])[address] [address], [place] [address] Hematocrit (Bld) [Volume fraction] 39.6 % Normal 35-47 [facility] Comment on above: Performed By: #### C MP, CBCA ####[facility] ([id number])[address] [address], [place] [address] Hemoglobin (Bld) [Mass/Vol] 13.3 g/dL Normal 11.7-15.5 [facility] Comment on above: Performed By: #### C MP, CBCA ####[facility] ([id number])[address] [address], [place] [address] Lymphocytes (Bld) [#/Vol] 0.6 10*3/uL Low 1.0-3.5 [facility] Comment on above: Performed By: #### C MP, CBCA ####[facility] ([id number])[address] [address] [place] [address] Lymphocytes/100 WBC (Bld) 3.9 % Normal [facility] Comment on above: Performed By: #### C MP, CBCA ####[facility] ([id number])[address] [address] [place] [address] MCH (RBC) [Entitic mass] 28.9 pg Normal 27-34 [facility] Comment on above: Performed By: #### C MP, CBCA ####[facility] ([id number])[address], [place] [address] MCHC (RBC) [Mass/Vol] 33.5 g/dL Normal 32-36 [facility] Comment on above: Performed By: #### C MP, CBCA ####[facility] ([id number])[address] [place] [address] MCV (RBC) [Entitic vol] 86 fL Normal 80-100 [facility] Comment on above: Performed By: #### C MP, CBCA ####[facility] ([id number])[address] [address] [place] [address] Monocytes (Bld) [#/Vol] 0.7 10*3/uL Normal 0-0.9 [facility] Comment on above: Performed By: #### C MP, CBCA ####[facility] ([id number])[address] [address] [place] [address] Monocytes/100 WBC (Bld) 4.8 % Normal [facility] Comment on above: Performed By: #### C MP, CBCA ####[facility] ([id number])[address] [address] [place] [address] Neutrophils/100 WBC (Bld) 91.2 % Normal [facility] Comment on above: Performed By: #### C MP, CBCA ####[facility] ([id number])[address], [place] [address] Platelet mean volume (Bld) [Entitic vol] 8.8 fL Normal 7-12 [facility] Comment on above: Performed By: #### C MP, CBCA ####[facility] ([id number])[address], [address] [place] [address] Platelets (Bld) [#/Vol] 68 10*3/uL Low 150-450 [facility] Comment on above: Performed By: #### C MP, CBCA ####[facility] ([id number])[address] [address] RBC COUNT 4.59 X10E12/L Normal 3.80-5.20 [facility] Comment on above: Performed By: #### C MP, CBCA ####[facility] ([id number])[address] [address] WBC (Bld) [#/Vol] 14.5 10*3/uL High 4.0-11.0 [facility] Comment on above: Performed By: #### C MP, CBCA ####[facility] ([id number])[address] [address] CBC auto differentialon 12-2 Basophils (Bld) [#/Vol] 0.0 10*3/uL [facility] Basophils/100 WBC (Bld) 0.0 % [facility] Eosinophils (Bld) [#/Vol] 0.0 10*3/uL [facility] Eosinophils/100 WBC (Bld) 0.1 % [facility] Erythrocyte distribution width (RBC) [Ratio] 15.8 % High 11.5 - 15.0 % [facility] Hematocrit (Bld) [Volume fraction] 39.6 % 35 - 47 % [facility] Hemoglobin (Bld) [Mass/Vol] 13.3 g/dL 11.7 - 15.5 g/dL [facility] Interpretation and review of laboratory results Abnormal [facility] Lymphocytes (Bld) [#/Vol] 0.6 10*3/uL Low [facility] Lymphocytes/100 WBC (Bld) 3.9 % [facility] MCH (RBC) [Entitic mass] 28.9 pg 27 - 34 pg [facility] MCHC (RBC) [Mass/Vol] 33.5 g/dL 32 - 3 6 g/dL [facility] MCV (RBC) [Entitic vol] 86 fL 80 - 100 [facility]L [facility] Monocytes (Bld) [#/Vol] 0.7 10*3/uL [facility] Monocytes/100 WBC (Bld) 4.8 % P [facility] Neutrophils (Bld) [#/Vol] 13.3 10*3/uL High [facility] Neutrophils/100 WBC (Bld) 91.2 % [facility] Platelet mean volume (Bld) [Entitic vol] 8.8 fL 7 - 12 fL [facility] Platelets (Bld) [#/Vol] 68 10*3/uL Low P [facility] RBC (Bld) [#/Vol] 4.59 10*6/uL [facility] WBC corrected for nucl RBC Auto (Bld) [#/Vol] 14.5 High [facility] COMPREHENSIVE METABOLIC PANE Dennis 04-05-2023 Albumin [Mass/Vol] 3.9 g/dL Normal 3.2-5.3 [facility] Comment on above: Performed By: #### C ELIAS NAIKA ####[facility] ([id number])[address], [address] [place] [address] ALP [Catalytic activity/Vol] 81 U/L Normal 39-130 [facility] Comment on above: Performed By: #### C GUMARO CBCA ####[facility] ([id number])[address], [address] [place] [address] ALT [Catalytic activity/Vol] 20 U/L Normal 0-31 [facility] Comment on above: Performed By: #### C GUMARO CBCA ####[facility] ([id number])[address], [address] [place] [address] Anion gap [Moles/Vol] 10 mmol/L Normal 5-15 [facility] Comment on above: Performed By: #### C MP, CBCA ####[facility] ([id number])[address] [address], [place] [address] AST [Catalytic activity/Vol] 25 U/L Normal 0-41 [facility] Comment on above: Performed By: #### C GUMARO CBCA ####[facility] ([id number])[address] [address], [place] [address] Bilirubin [Mass/Vol] 0.6 mg/dL Normal 0.3-1.2 [facility] Comment on above: Performed By: #### C GUMARO CBCRey ####[facility] ([id number])[address] [address], [place] [address] Calcium [Mass/Vol] 9.8 mg/dL Normal 8.5-10.5 [facility] Comment on above: Performed By: #### C JA NAIK ####[facility] ([id number])[address] [address], [place] [address] Chloride [Moles/Vol] 113 mmol/L High 98-109 [facility] Comment on above: Performed By: #### C JA NAIK ####[facility] ([id number])[address] [address], [place] [address] CO2 [Moles/Vol] 26 mmol/L Normal 22-32 [facility] Comment on above: Performed By: #### C JA NAIK ####[facility] ([id number])[address] [address], [place] [address] Creatinine [Mass/Vol] 0.64 mg/dL Normal 0.40-1.00 [facility] Comment on above: Result Comment: METH OD TRACEABLE TO IDMS STANDARD Performed By: #### C JA NAIK ####[facility] ([id number])[address] [address], [place] [address] GFR/1.73 sq M.predicted among non-blacks MDRD (S/P/Bld) [Vol rate/Area] 89 mL/min/{1.73_m2} Normal >59 [facility] Comment on above: Result Comment: Repo rted eGFR is based on theCKD-EPI 2020 equation that doesnot use a race coefficient. Performed By: #### C GUMARO, CBCA ####[facility] ([id number])[address], [address], [place] [address] Glucose [Mass/Vol] 169 mg/dL High 65-99 [facility] Comment on above: Performed By: #### C GUMARO CBCA ####[facility] ([id number])[address], [address], [place] [address] Potassium [Moles/Vol] 3.5 mmol/L Normal 3.5-5.0 [facility] Comment on above: Performed By: #### C GUMARO, CBCA ####[facility] ([id number])[address], [address], [place] [address] Protein [Mass/Vol] 7.1 g/dL Normal 6.0-8.0 [facility] Comment on above: Performed By: #### C GUMARO, CBCA ####[facility] ([id number])[address], [address], [place] [address] Sodium [Moles/Vol] 149 mmol/L High 134-146 [facility] Comment on above: Performed By: #### C GUMARO CBCA ####[facility] ([id number])[address], [address], [place] [address] Urea nitrogen [Mass/Vol] 36 mg/dL High 5-27 [facility] Comment on above: Performed By: #### C GUMARO, CBCA ####[facility] ([id number])[address], [address], [place] [address] Comprehensive metabolic pane dennis 04-05-2023 Albumin [Mass/Vol] 3.9 g/dL 3.2 - 5.3 g/dL [facility] ALP [Catalytic activity/Vol] 81 U/L 39 - 130 U/L [facility] ALT No additional P-5'-P [Catalytic activity/Vol] 20 U/L 0 - 31 U/L [facility] Anion gap [Moles/Vol] 10 mmol/L 5 - 15 mmol/L [facility] AST [Catalytic activity/Vol] 25 U/L 0 - 41 U/L [facility] Bilirubin [Mass/Vol] 0.6 mg/dL 0.3 - 1 .2 mg/dL [facility] Calcium [Mass/Vol] 9.8 mg/dL 8.5 - 10. 5 mg/dL [facility] Chloride [Moles/Vol] 113 mmol/L High 98 - 10 9 mmol/L [facility] CO2 [Moles/Vol] 26 mmol/L 22 - 32 mmol/L [facility] Creatinine [Mass/Vol] 0.64 mg/dL 0.40 - 1.00 mg/dL [facility] eGFR (CKD-EPI)non-race dependent 89 - PINF [facility] Glucose [Mass/Vol] 169 mg/dL High 65 - 99 mg/dL [facility] Interpretation and review of laboratory results Abnormal [facility] Potassium [Moles/Vol] 3.5 mmol/L 3.5 - 5.0 mmol/L [facility] Protein [Mass/Vol] 7.1 g/dL 6.0 - 8.0 g/dL [facility] Sodium [Moles/Vol] 149 mmol/L High 134 - 146 mmol/L [facility] Urea nitrogen [Mass/Vol] 36 mg/dL High 5 - 27 mg/dL [facility] POTASSIUMon 04-05-2023 Potassium [Moles/Vol] 3.8 mmol/L Normal 3.5-5.0 [facility] Comment on above: Performed By: #### 2 823-3 ####[facility] ([id number])[address] [facility], [address] [place] [address] Potassiumon 04-05-2023 Potassium [Moles/Vol] 3.8 mmol/L 3.5 - 5.0 mmol/L [facility] Potassium [Moles/Vol]on 03-09 [facility] XR CHEST 1 VWon 04-05-2023 XR CHEST 1 VW Normal [facility] XR Chest Single viewon 04-05 SECTRAPACS [facility] Radiology Study observation (narrative) [facility] XR Chest Single viewOrdered By: Jose Luis Tyson on 04-05-2023 [facility] Work Phone: CBC AND AUTO DIFFon 04-04-20 ABSOLUTE BASOPHIL 0.0 X10E9/L Normal 0.0-0.2 [facility] Comment on above: Performed By: #### C BCA, CMP ####[facility] ([id number])[address], [address] [place] [address] ABSOLUTE NEUTROPHIL 9.9 X10E9/L High 1.5-6.6 [facility] Comment on above: Performed By: #### C BCA, CMP ####[facility] ([id number])[address], [address] [place] [address] Basophils/100 WBC (Bld) 0.1 % Normal P [facility] Comment on above: Performed By: #### C BCA, CMP ####[facility] ([id number])[address], [address] [place] [address] Eosinophils (Bld) [#/Vol] 0.0 10*3/uL Normal 0.0-0.4 [facility] Comment on above: Performed By: #### C BCA, CMP ####[facility] ([id number])[address], [address] [place] [address] Eosinophils/100 WBC (Bld) 0.1 % Normal [facility] Comment on above: Performed By: #### C BCA, CMP ####[facility] ([id number])[address], [address] [place] [address] Erythrocyte distribution width (RBC) [Ratio] 15.7 % High 11.5-15.0 [facility] Comment on above: Performed By: #### C BROOKLYN, CMP ####[facility] ([id number])[address], [address] [place] [address] Hematocrit (Bld) [Volume fraction] 35.8 % Normal 35-47 [facility] Comment on above: Performed By: #### C BROOKLYN, CMP ####[facility] ([id number])[address], [address] [place] [address] Hemoglobin (Bld) [Mass/Vol] 11.9 g/dL Normal 11.7-15.5 [facility] Comment on above: Performed By: #### Batsheva BARAHONA, CMP ####[facility] ([id number])[address] [address], [place] [address] Lymphocytes (Bld) [#/Vol] 0.7 10*3/uL Low 1.0-3.5 [facility] Comment on above: Performed By: #### C BROOKLYN, CMP ####[facility] ([id number])[address], [address], [place] [address] Lymphocytes/100 WBC (Bld) 5.9 % Normal [facility] Comment on above: Performed By: #### Batsheva BARAHONA, CMP ####[facility] ([id number])[address] [address] [place] [address] MCH (RBC) [Entitic mass] 28.8 pg Normal 27-34 [facility] Comment on above: Performed By: #### C BROOKLYN, CMP ####[facility] ([id number])[address], [address] [place] [address] MCHC (RBC) [Mass/Vol] 33.2 g/dL Normal 32-36 [facility] Comment on above: Performed By: #### C BCA, CMP ####[facility] ([id number])[address], [address], [place] [address] MCV (RBC) [Entitic vol] 87 fL Normal 80-100 [facility] Comment on above: Performed By: #### C BCA, CMP ####[facility] ([id number])[address], [address], [place] [address] Monocytes (Bld) [#/Vol] 0.6 10*3/uL Normal 0-0.9 [facility] Comment on above: Performed By: #### C BROOKLYN, CMP ####[facility] ([id number])[address], [address], [place] [address] Monocytes/100 WBC (Bld) 5.4 % Normal [facility] Comment on above: Performed By: #### C BROOKLYN, CMP ####[facility] ([id number])[address], [address], [place] [address] Neutrophils/100 WBC (Bld) 88.5 % Normal [facility] Comment on above: Performed By: #### C BCA, CMP ####[facility] ([id number])[address], [address], [place] [address] Platelet mean volume (Bld) [Entitic vol] 8.2 fL Normal 7-12 [facility] Comment on above: Performed By: #### C BCA, CMP ####[facility] ([id number])[address], [address], [place] [address] Platelets (Bld) [#/Vol] 70 10*3/uL Low 150-450 [facility] Comment on above: Performed By: #### C BCA, CMP ####[facility] ([id number])[address], [address], [place] [address] RBC COUNT 4.13 X10E12/L Normal 3.80-5.20 [facility] Comment on above: Performed By: #### C BROOKLYN, CMP ####[facility] ([id number])[address], [address], [place] [address] WBC (Bld) [#/Vol] 11.1 10*3/uL High 4.0-11.0 [facility] Comment on above: Performed By: #### Batsheva BARAHONA, CMP ####[facility] ([id number])[address] [facility], [address], [place] [address] CBC auto differentialon 03-09 Basophils (Bld) [#/Vol] 0.0 10*3/uL [facility] Basophils/100 WBC (Bld) 0.1 % [facility] Eosinophils (Bld) [#/Vol] 0.0 10*3/uL [facility] Eosinophils/100 WBC (Bld) 0.1 % [facility] Erythrocyte distribution width (RBC) [Ratio] 15.7 % High 11.5 - 15.0 % [facility] Hematocrit (Bld) [Volume fraction] 35.8 % 35 - 47 % [facility] Hemoglobin (Bld) [Mass/Vol] 11.9 g/dL 11.7 - 15.5 g/dL [facility] Interpretation and review of laboratory results Abnormal [facility] Lymphocytes (Bld) [#/Vol] 0.7 10*3/uL Low [facility] Lymphocytes/100 WBC (Bld) 5.9 % [facility] MCH (RBC) [Entitic mass] 28.8 pg 27 - 34 pg [facility] MCHC (RBC) [Mass/Vol] 33.2 g/dL 32 - 3 6 g/dL [facility] MCV (RBC) [Entitic vol] 87 fL 80 - 100 fL [facility] Monocytes (Bld) [#/Vol] 0.6 10*3/uL [facility] Monocytes/100 WBC (Bld) 5.4 % [facility] Neutrophils (Bld) [#/Vol] 9.9 10*3/uL High [facility] Neutrophils/100 WBC (Bld) 88.5 % [facility] Platelet mean volume (Bld) [Entitic vol] 8.2 fL 7 - 12 fL [facility] Platelets (Bld) [#/Vol] 70 10*3/uL Low P [facility] RBC (Bld) [#/Vol] 4.13 10*6/uL [facility] WBC corrected for nucl RBC Auto (Bld) [#/Vol] 11.1 High [facility] COMPREHENSIVE METABOLIC PANE Dennis 04-04-2023 Albumin [Mass/Vol] 3.7 g/dL Normal 3.2-5.3 [facility] Comment on above: Performed By: #### C BCA, CMP ####[facility] ([id number])[address], [address], [place] [address] ALP [Catalytic activity/Vol] 71 U/L Normal 39-130 [facility] Comment on above: Performed By: #### C BCA, CMP ####[facility] ([id number])[address], [address] [place] [address] ALT [Catalytic activity/Vol] 14 U/L Normal 0-31 [facility] Comment on above: Performed By: #### C BCA, CMP ####[facility] ([id number])[address], [address], [place] [address] Anion gap [Moles/Vol] 9 mmol/L Normal 5-15 [facility] Comment on above: Performed By: #### C BCA, CMP ####[facility] ([id number])[address], [address], [place] [address] AST [Catalytic activity/Vol] 21 U/L Normal 0-41 [facility] Comment on above: Performed By: #### C BCA, CMP ####[facility] ([id number])[address], [address], [place] [address] Bilirubin [Mass/Vol] 0.6 mg/dL Normal 0.3-1.2 [facility] Comment on above: Performed By: #### C BCA, CMP ####[facility] ([id number])[address] [address], [place] [address] Calcium [Mass/Vol] 9.5 mg/dL Normal 8.5-10.5 [facility] Comment on above: Performed By: #### C BCA, CMP ####[facility] ([id number])[address] [address] Chloride [Moles/Vol] 110 mmol/L High 98-109 [facility] Comment on above: Performed By: #### C BCA, CMP ####[facility] ([id number])[address] [address] CO2 [Moles/Vol] 27 mmol/L Normal 22-32 [facility] Comment on above: Performed By: #### C BCA, CMP ####[facility] ([id number])[address] [address] Creatinine [Mass/Vol] 0.64 mg/dL Normal 0.40-1.00 [facility] Comment on above: Result Comment: METH OD TRACEABLE TO IDMS STANDARD Performed By: #### C BCA, CMP ####[facility] ([id number])[address] [address] GFR/1.73 sq M.predicted among non-blacks MDRD (S/P/Bld) [Vol rate/Area] 89 mL/min/{1.73_m2} Normal >59 [facility] Comment on above: Result Comment: Repo rted eGFR is based on theCKD-EPI 2020 equation that doesnot use a race coefficient. Performed By: #### C BCA, CMP ####[facility] ([id number])[address], [address], [place] [address] Glucose [Mass/Vol] 147 mg/dL High 65-99 [facility] Comment on above: Performed By: #### C BCA, CMP ####[facility] ([id number])[address], [address] [place] [address], [place] [address] Potassium [Moles/Vol] 3.6 mmol/L Normal 3.5-5.0 [facility] Comment on above: Performed By: #### C BCA, CMP ####[facility] ([id number])[address], [address] [place] [address] Protein [Mass/Vol] 6.7 g/dL Normal 6.0-8.0 [facility] Comment on above: Performed By: #### C BCA, CMP ####[facility] ([id number])[address], [address] [place] [address] Sodium [Moles/Vol] 146 mmol/L Normal 134-146 [facility] Comment on above: Performed By: #### C BCA, CMP ####[facility] ([id number])[address] [address] [place] [address] Urea nitrogen [Mass/Vol] 29 mg/dL High 5-27 [facility] Comment on above: Performed By: #### C BCA, CMP ####[facility] ([id number])[address] [address] [place] [address], [place] [address] Comprehensive metabolic pane dennis 04-04-2023 Albumin [Mass/Vol] 3.7 g/dL 3.2 - 5.3 g/dL [facility] ALP [Catalytic activity/Vol] 71 U/L 39 - 130 U/L [facility] ALT No additional P-5'-P [Catalytic activity/Vol] 14 U/L 0 - 31 U/L [facility] Anion gap [Moles/Vol] 9 mmol/L 5 - 15 mmol/L [facility] AST [Catalytic activity/Vol] 21 U/L 0 - 41 U/L [facility] Bilirubin [Mass/Vol] 0.6 mg/dL 0.3 - 1 .2 mg/dL [facility] Calcium [Mass/Vol] 9.5 mg/dL 8.5 - 10. 5 mg/dL [facility] Chloride [Moles/Vol] 110 mmol/L High 98 - 10 9 mmol/L [facility] CO2 [Moles/Vol] 27 mmol/L 22 - 32 mmol/L [facility] Creatinine [Mass/Vol] 0.64 mg/dL 0.40 - 1.00 mg/dL [facility] eGFR (CKD-EPI)non-race dependent 89 - PINF [facility] Glucose [Mass/Vol] 147 mg/dL High 65 - 99 mg/dL [facility] Interpretation and review of laboratory results Abnormal [facility] Potassium [Moles/Vol] 3.6 mmol/L 3.5 - 5.0 mmol/L [facility] Protein [Mass/Vol] 6.7 g/dL 6.0 - 8.0 g/dL [facility] Sodium [Moles/Vol] 146 mmol/L 134 - 146 mmol/L [facility] Urea nitrogen [Mass/Vol] 29 mg/dL High 5 - 27 mg/dL [facility] POTASSIUMon 04-04-2023 Potassium [Moles/Vol] 3.8 mmol/L Normal 3.5-5.0 [facility] Comment on above: Performed By: #### 2 823-3 ####[facility] ([id number])[address] [facility], [address] [place] [address] Potassiumon 04-04-2023 Potassium [Moles/Vol] 3.8 mmol/L 3.5 - 5.0 mmol/L [facility] Potassium [Moles/Vol]on 03-09 [facility] CBC AND AUTO DIFFon 04-03-20 ABSOLUTE BASOPHIL 0.0 X10E9/L Normal 0.0-0.2 [facility] Comment on above: Performed By: #### C BCA, CMP, ####[facility] ([id number])[address] [place] [address] ABSOLUTE NEUTROPHIL 12.1 X10E9/L High 1.5-6.6 [facility] Comment on above: Performed By: #### C BROOKLYN CMP, ####[facility] ([id number])[address], [address], [place] [address] Basophils/100 WBC (Bld) 0.1 % Normal [facility] Comment on above: Performed By: #### C BROOKLYN, CMP, ####[facility] ([id number])[address] [address], [place] [address] Eosinophils (Bld) [#/Vol] 0.0 10*3/uL Normal 0.0-0.4 [facility] Comment on above: Performed By: #### Batsheva BARAHONA [facility], ####[facility] ([id number])[address] [address], [place] [address] Eosinophils/100 WBC (Bld) 0.1 % Normal [facility] Comment on above: Performed By: #### Batsheva BARAHONA, [facility], ####[facility] ([id number])[address] [address], [place] [address] Erythrocyte distribution width (RBC) [Ratio] 15.5 % High 11.5-15.0 [facility] Comment on above: Performed By: #### C BROOKLYN, CMP, ####[facility] ([id number])[address] [address], [place] [address] Hematocrit (Bld) [Volume fraction] 40.1 % Normal 35-47 [facility] Comment on above: Performed By: #### Batsheva BARAHONA, CMP, ####[facility] ([id number])[address], [place] [address] Hemoglobin (Bld) [Mass/Vol] 13.4 g/dL Normal 11.7-15.5 [facility] Comment on above: Performed By: #### C BROOK[place]N [facility], ####[facility] ([id number])[address] [address], [place] [address] Lymphocytes (Bld) [#/Vol] 0.8 10*3/uL Low 1.0-3.5 [facility] Comment on above: Performed By: #### C [place], [facility], ####[facility] ([id number])[address] [address], [place] [address] Lymphocytes/100 WBC (Bld) 5.7 % Normal [facility] Comment on above: Performed By: #### Batsheva BARAHONA [facility], ####[facility] ([id number])[address] [address], [place] [address] MCH (RBC) [Entitic mass] 28.7 pg Normal 27-34 [facility] Comment on above: Performed By: #### Batsheva BARAHONA, [facility], ####[facility] ([id number])[address] [address], [place] [address] MCHC (RBC) [Mass/Vol] 33.6 g/dL Normal 32-36 [facility] Comment on above: Performed By: #### Batsheva BARAHONA, [facility], ####[facility] ([id number])[address] [address], [place] [address] MCV (RBC) [Entitic vol] 85 fL Normal 80-100 [facility] Comment on above: Performed By: #### Batsheva BARAHONA, CMP, ####[facility] ([id number])[address] [address], [place] [address] Monocytes (Bld) [#/Vol] 0.8 10*3/uL Normal 0-0.9 [facility] Comment on above: Performed By: #### C BROOKLYN, CMP, ####[facility] ([id number])[address], [address], [place] [address] Monocytes/100 WBC (Bld) 5.9 % Normal [facility] Comment on above: Performed By: #### C BROOKLYN, CMP, ####[facility] ([id number])[address], [address], [place] [address] Neutrophils/100 WBC (Bld) 88.2 % Normal [facility] Comment on above: Performed By: #### Batsheva BARAHONA, CMP, ####[facility] ([id number])[address], [address], [place] [address] Platelet mean volume (Bld) [Entitic vol] 8.5 fL Normal 7-12 [facility] Comment on above: Performed By: #### Batsheva BARAHONA, JACOB, ####[facility] ([id number])[address], [address], [place] [address] Platelets (Bld) [#/Vol] 96 10*3/uL Low 150-450 [facility] Comment on above: Performed By: #### C BROOKLYN, CMP, ####[facility] ([id number])[address], [address], [place] [address] RBC COUNT 4.69 X10E12/L Normal 3.80-5.20 [facility] Comment on above: Performed By: #### C BROOKLYN, CMP, ####[facility] ([id number])[address], [address], [place] [address] WBC (Bld) [#/Vol] 13.7 10*3/uL High 4.0-11.0 [facility] Comment on above: Performed By: #### C BCA, CMP, 94678-0 ####[facility] ([id number])[address] [facility], [address], [place] [address] CBC auto differentialon 03-09 Basophils (Bld) [#/Vol] 0.0 10*3/uL [facility] Basophils/100 WBC (Bld) 0.1 % [facility] Eosinophils (Bld) [#/Vol] 0.0 10*3/uL [...] System Monocytes/100 WBC (Bld) 5.9 % [facility] Neutrophils (Bld) [#/Vol] 12.1 10*3/uL High [facility] Neutrophils/100 WBC (Bld) 88.2 % [facility] Platelet mean volume (Bld) [Entitic vol] 8.5 fL 7 - 12 fL [facility] Platelets (Bld) [#/Vol] 96 10*3/uL Low [facility] RBC (Bld) [#/Vol] 4.69 10*6/uL [facility] WBC corrected for nucl RBC Auto (Bld) [#/Vol] 13.7 High [facility] COMPREHENSIVE METABOLIC PANE Dennis 04-03-2023 Albumin [Mass/Vol] 4.0 g/dL Normal 3.2-5.3 [facility] Comment on above: Performed By: #### C BCA, CMP, ####[facility] ([id number])[address], [address], [place] [address] ALP [Catalytic activity/Vol] 71 U/L Normal 39-130 [facility] Comment on above: Performed By: #### C BCA, CMP, ####[facility] ([id number])[address], [address], [place] [address] ALT [Catalytic activity/Vol] 9 U/L Normal 0-31 [facility] Comment on above: Performed By: #### C BCA, CMP, ####[facility] ([id number])[address], [address], [place] [address] Anion gap [Moles/Vol] 9 mmol/L Normal 5-15 [facility] Comment on above: Performed By: #### C BCA, CMP, ####[facility] ([id number])[address], [address], [place] [address] AST [Catalytic activity/Vol] 19 U/L Normal 0-41 [facility] Comment on above: Performed By: #### C BCA, CMP, ####[facility] ([id number])[address], [address], [place] [address] Bilirubin [Mass/Vol] 0.6 mg/dL Normal 0.3-1.2 [facility] Comment on above: Performed By: #### C BCA, CMP, ####[facility] ([id number])[address], [address], [place] [address] Calcium [Mass/Vol] 9.6 mg/dL Normal 8.5-10.5 [facility] Comment on above: Performed By: #### C BROOKLYN [facility], [address]-7 ####[facility] ([id number])[address], [address], [place] [address] Chloride [Moles/Vol] 109 mmol/L Normal 98-109 [facility] Comment on above: Performed By: #### C BROOKLYN [facility], ####[facility] ([id number])[address], [address] [place] [address] CO2 [Moles/Vol] 26 mmol/L Normal 22-32 [facility] Comment on above: Performed By: #### C JACOB BARAHONA, ####[facility] ([id number])[address] [address] [place] [address] Creatinine [Mass/Vol] 0.74 mg/dL Normal 0.40-1.00 [facility] Comment on above: Result Comment: METH OD TRACEABLE TO IDMS STANDARD Performed By: #### C JACOB BARAHONA, [address]-9 ####[facility] ([id number])[address], [address] [place] [address] GFR/1.73 sq M.predicted among non-blacks MDRD (S/P/Bld) [Vol rate/Area] 82 mL/min/{1.73_m2} Normal >59 [facility] Comment on above: Result Comment: Repo rted eGFR is based on theCKD-EPI 2020 equation that doesnot use a race coefficient. Performed By: #### C JACOB BARAHONA, ####[facility] ([id number])[address], [address], [place] [address] Glucose [Mass/Vol] 114 mg/dL High 65-99 [facility] Comment on above: Performed By: #### C JACOB BARAHONA, 07[address]-0 ####[facility] ([id number])[address], [address] [place] [address] Potassium [Moles/Vol] 3.9 mmol/L Normal 3.5-5.0 [facility] Comment on above: Performed By: #### C BCA, CMP, 69135-3 ####[facility] ([id number])[address], [address] [place] [address] Protein [Mass/Vol] 7.2 g/dL Normal 6.0-8.0 [facility] Comment on above: Performed By: #### C BCA, CMP, 50088-5 ####[facility] ([id number])[address], [address] [address] Sodium [Moles/Vol] 144 mmol/L Normal 134-146 [facility] Comment on above: Performed By: #### C BCA, CMP, 23419-9 ####[facility] ([id number])[address], [address], [place] [address] Urea nitrogen [Mass/Vol] 27 mg/dL Normal 5-27 [facility] Comment on above: Performed By: #### C BCA, CMP, 83312-7 ####[facility] ([id number])[address], [address] [place] [address]RA[address] WO CONTon CT BRAIN WO CONT Normal [facility] CT Head WO contraston 2022 [employer] [facility] [employer] [facility] Cardiac echo study Procedure Ordered By: Aquiles Coker on 04-03-2023 Aortic root 3.30 cm [facility] [employer] Work Phone: AV mean gradient 9.00 mmHg [facility] [employer] Work Phone: AV peak gradient 13.84 mmHg [facility] [employer] Work Phone: AV peak edson 186.00 cm/s [employer] Work Phone: AV valve area 2.39 cm2 [employer] Work Phone: AV Velocity Ratio 0.76 [employer] Work Phone: AV VTI 41.20 cm [employer] Work Phone: E wave deceleration time 210.00 msec [employer] Work Phone: E/A ratio 0.75 [employer] Work Phone: Energy loss index 1.94 [employer] Work Phone: FS 31 % 28 - 44 % [employer] Work Phone: Interventricular Septum Diastolic Thickness by 2D 9 cm [employer] Work Phone: IVS 0.90 cm 0.6 - 1.1 cm [employer] Work Phone: LA size 3.30 cm [employer] Work Phone: LA volume 30.70 cm3 [employer] Work Phone: LA Volume Index 17.7 mL/m2 [employer] Work Phone: Left Ventricle Mass 123.036118620029373 g [employer] Work Phone: LV ESV A2C 28.70 mL [employer] Work Phone: LV ESV A4C 29.20 mL [employer] Work Phone: LV RWT 2D 35.56 [employer] Work Phone: LVIDd 4.50 cm 4.03 - 5.60 cm [employer] Work Phone: LVIDs 3.10 cm 2.39 - 3.62 cm [employer] Work Phone: LVOT diameter 2.00 cm [employer] Work Phone: LVOT peak edson 1.51 m/s [employer] Work Phone: LVOT peak VTI 31.30 cm [facility] [employer] Work Phone: LVOT stroke volume 98.33 ml [facility] [employer] Work Phone: MV Peak A Edson 122.00 cm/s [facility] Work Phone: MV Peak E Edson 91.40 cm/s [facility] Work Phone: MV pressure 1/2 time 62.00 ms [facility] [employer] Work Phone: MV TDI E' (medial) 7.51 cm/s [facility] [employer] Work Phone: MV valve area p 1/2 method 3.55 cm2 [facility] Work Phone: PW 0.80 cm 0.6 - 1.1 cm [facility] Work Phone: TAPSE 1.87 cm [facility] Work Phone: TDI 7.62 cm/s [facility] Work Phone: Valve area - Index 1.4 [facility] [employer] Work Phone: ZLVIDD -0.54 [facility] Work Phone: ZLVIDS 0.42 [facility] Work Phone: [facility] Work Phone: Cardiac echo study Procedure on 04-03-2023 XCEL[facility]A Radiology Study observation (narrative) [facility] Comprehensive metabolic pane dennis 04-03-2023 Albumin [Mass/Vol] 4.0 g/dL 3.2 - 5.3 g/dL [facility] ALP [Catalytic activity/Vol] 71 U/L 39 - 130 U/L [facility] ALT No additional P-5'-P [Catalytic activity/Vol] 9 U/L 0 - 31 U/L [facility] Anion gap [Moles/Vol] 9 mmol/L 5 - 15 mmol/L [facility] AST [Catalytic activity/Vol] 19 U/L 0 - 41 U/L [facility] Bilirubin [Mass/Vol] 0.6 mg/dL 0.3 - 1 .2 mg/dL [facility] Calcium [Mass/Vol] 9.6 mg/dL 8.5 - 10. 5 mg/dL [facility] Chloride [Moles/Vol] 109 mmol/L 98 - 10 9 mmol/L [facility] CO2 [Moles/Vol] 26 mmol/L 22 - 32 mmol/L [facility] Creatinine [Mass/Vol] 0.74 mg/dL 0.40 - 1.00 mg/dL [facility] eGFR (CKD-EPI)non-race dependent 82 - PINF [facility] Glucose [Mass/Vol] 114 mg/dL High 65 - 99 mg/dL [facility] Interpretation and review of laboratory results Abnormal [facility] Potassium [Moles/Vol] 3.9 mmol/L 3.5 - 5.0 mmol/L [facility] Protein [Mass/Vol] 7.2 g/dL 6.0 - 8.0 g/dL [facility] Sodium [Moles/Vol] 144 mmol/L 134 - 146 mmol/L [facility] Urea nitrogen [Mass/Vol] 27 mg/dL 5 - 27 mg/dL [facility] DISCONTINUE IN PROCESS EEG T ESTINGOrdered By: Documentation Systemgenerated on 04-03-2023 [facility] Work Phone: Holter monitor studyon 04-03 MANUALLY TRANSCRIBED RESULTS [facility] MANUALLY TRANSCRIBED RESULTS [facility] Laboratory - Microbiology an d Antimicrobial susceptibilityon 04-03-2023 MRSA DNA MARYCHUY+probe Ql (Unsp spec) Negative Normal NEG [facility] Comment on above: Performed By: #### 3 5492-8 ####[facility] ([id number])[address] [facility], [address] [place] [address] MAGNESIUMon 04-03-2023 Magnesium [Mass/Vol] 2.0 mg/dL Normal 1.8-2.6 [facility] Comment on above: Performed By: #### C BCA, CMP, 27493-2 ####[facility] ([id number])[address] [facility], [address], [place] [address] MRSA DNA MARYCHUY+probe Ql (Unsp spec)on 04-03-2023 [facility] Magnesiumon 04-03-2023 Magnesium [Mass/Vol] 2.0 mg/dL 1.8 - 2 .6 mg/dL [facility] Magnesium [Mass/Vol]on 04-03 [facility] RESP PATHOGENS/[id number] 04-03-2023 Respiratory pathogens DNA and RNA panel MARYCHUY+non-probe (Nph) Normal [facility] Respiratory pathogens DNA an d RNA panel MARYCHUY+non-probe (Nph)on 04-03-2023 Adenovirus DNA MARYCHUY+non-probe Ql (Nph) Not detected Not Detected^N ot Detected [facility] B. parapertussis [id number] DNA MARYCHUY+non-probe Ql (Nph) Not detected Not Detected^N ot Detected [facility] B. pertussis toxin promoter region MARYCHUY+non-probe Ql (Nph) Not detected Not Detected^N ot Detected [facility] C. pneumoniae DNA MARYCHUY+non-probe Ql (Nph) Not detected Not Detected^N ot Detected [facility] FLUAV RNA MARYCHUY+non-probe Ql (Nph) Not detected Not Detected^N ot Detected [facility] FLUBV RNA MARYCHUY+non-probe Ql (Nph) Not detected Not Detected^N ot Detected [facility] HCoV 229E RNA MARYCHUY+non-probe Ql (Nph) Not detected Not Detected^N ot Detected [facility] HCoV HKU1 RNA MARYCHUY+non-probe Ql (Nph) Not detected Not Detected^N ot Detected [facility] HCoV NL63 RNA MARYCHUY+non-probe Ql (Nph) Not detected Not Detected^N ot Detected [facility] HCoV OC43 RNA MARYCHUY+non-probe Ql (Nph) Not detected Not Detected^N ot Detected [facility] hMPV RNA MARYCHUY+non-probe Ql (Nph) Not detected Not Detected^N ot Detected [facility] M. pneumoniae DNA MARYCHUY+non-probe Ql (Nph) Not detected Not Detected^N ot Detected [facility] Parainfluenza virus 1 RNA MARYCHUY+non-probe Ql (Nph) Not detected Not Detected^N ot Detected [facility] Parainfluenza virus 2 RNA MARYCHUY+non-probe Ql (Nph) Not detected Not Detected^N ot Detected [facility] Parainfluenza virus 3 RNA MARYCHUY+non-probe Ql (Nph) Not detected Not Detected^N ot Detected [facility] Parainfluenza virus 4 RNA MARYCHUY+non-probe Ql (Nph) Not detected Not Detected^N ot Detected [facility] Rhinovirus+Enterovirus RNA MARYCHUY+non-probe Ql (Nph) Not detected Not Detected^N ot Detected [facility] RSV RNA MARYCHUY+non-probe Ql (Nph) Not detected Not Detected^N ot Detected [facility] SARS-CoV-2 (COVID-19) RNA MARYCHUY+probe Ql (Resp) Not detected Not Detected^N ot Detected [facility] Specimen source Nom (Body fld) NASO PHARYNX [facility] X-ray abdomen NG Tube placem ent 1 viewon [facility]-03-[facility] (narrative) [facility] X-ray abdomen NG Tube placem ent 1 viewOrdered By: Caro Gilliland on 04-03-2023 [facility] Work Phone: XR ABD NG TUBE PLACEMENT 1 V IEWon 04-03-2023 XR ABD NG TUBE PLACEMENT 1 VIEW Normal [facility] XR CHEST 1 VWon 04-03-2023 XR CHEST 1 VW Normal [facility] XR Chest Single viewon 04-03 [facility] (narrative) [facility] CBC AND AUTO DIFFon 04-02-20 23 ABSOLUTE BASOPHIL 0.0 X10E9/L Normal 0.0-0.2 [facility] Comment on above: Performed By: #### C BCA ####[facility] ([id number])[address] [facility], [address] [place] [address] ABSOLUTE NEUTROPHIL 11.5 X10E9/L High 1.5-6.6 [facility] Comment on above: Performed By: #### C BCA ####[facility] ([id number])[address], [address], [place] [address] Basophils/100 WBC (Bld) 0.4 % Normal [facility] Comment on above: Performed By: #### C BCA ####[facility] ([id number])[address], [address], [place] [address] Eosinophils (Bld) [#/Vol] 0.0 10*3/uL Normal 0.0-0.4 [facility] Comment on above: Performed By: #### C BCA ####[facility] ([id number])[address], [address], [place] [address] Eosinophils/100 WBC (Bld) 0.0 % Normal [facility] Comment on above: Performed By: #### C BCA ####[facility] ([id number])[address], [address], [place] [address] Erythrocyte distribution width (RBC) [Ratio] 15.3 % High 11.5-15.0 [facility] Comment on above: Performed By: #### C BCA ####[facility] ([id number])[address], [address], [place] [address] Hematocrit (Bld) [Volume fraction] 39.1 % Normal 35-47 [facility] Comment on above: Performed By: #### C BCA ####[facility] ([id number])[address], [address], [place] [address] Hemoglobin (Bld) [Mass/Vol] 13.1 g/dL Normal 11.7-15.5 [facility] Comment on above: Performed By: #### C BCA ####[facility] ([id number])[address], [address], [place] [address] Lymphocytes (Bld) [#/Vol] 0.6 10*3/uL Low 1.0-3.5 [facility] Comment on above: Performed By: #### C BCA ####[facility] ([id number])[address], [address], [place] [address] Lymphocytes/100 WBC (Bld) 4.7 % Normal [facility] Comment on above: Performed By: #### C BCA ####[facility] ([id number])[address], [address], [place] [address] MCH (RBC) [Entitic mass] 28.6 pg Normal 27-34 [facility] Comment on above: Performed By: #### C BCA ####[facility] ([id number])[address], [address], [place] [address] MCHC (RBC) [Mass/Vol] 33.4 g/dL Normal 32-36 [facility] Comment on above: Performed By: #### C BCA ####[facility] ([id number])[address] [address], [place] [address] MCV (RBC) [Entitic vol] 86 fL Normal 80-100 [facility] Comment on above: Performed By: #### C BCA ####[facility] ([id number])[address] [address] [place] [address] Monocytes (Bld) [#/Vol] 0.6 10*3/uL Normal 0-0.9 [facility] Comment on above: Performed By: #### C BCA ####[facility] ([id number])[address], [address], [place] [address] Monocytes/100 WBC (Bld) 4.6 % Normal [facility] Comment on above: Performed By: #### C BCA ####[facility] ([id number])[address], [address] [place] [address] Neutrophils/100 WBC (Bld) 90.3 % Normal [facility] Comment on above: Performed By: #### C BCA ####[facility] ([id number])[address], [address] [place] [address] Platelet mean volume (Bld) [Entitic vol] 8.8 fL Normal 7-12 [facility] Comment on above: Performed By: #### C BCA ####[facility] ([id number])[address] [address] [place] [address] Platelets (Bld) [#/Vol] 114 10*3/uL Low 150-450 [facility] Comment on above: Performed By: #### C BCA ####[facility] ([id number])[address] [address], [place] [address] RBC COUNT 4.56 X10E12/L Normal 3.80-5.20 [facility] Comment on above: Performed By: #### C BCA ####[facility] ([id number])[address] [address] WBC (Bld) [#/Vol] 12.7 10*3/uL High 4.0-11.0 [facility] Comment on above: Performed By: #### C BCA ####[facility] ([id number])[address] [address], [place] [address] COMPREHENSIVE METABOLIC PANE Dennis 04-02-2023 Albumin [Mass/Vol] 4.0 g/dL Normal 3.2-5.3 [facility] Comment on above: Performed By: #### C MP ####[facility] ([id number])[address] [address] [place] [address] ALP [Catalytic activity/Vol] 71 U/L Normal 39-130 [facility] Comment on above: Performed By: #### C MP ####[facility] ([id number])[address], [address], [place] [address] ALT [Catalytic activity/Vol] 9 U/L Normal 0-31 [facility] Comment on above: Performed By: #### C MP ####[facility] ([id number])[address], [address], [place] [address] Anion gap [Moles/Vol] 13 mmol/L Normal 5-15 [facility] Comment on above: Performed By: #### C MP ####[facility] ([id number])[address], [address], [place] [address] AST [Catalytic activity/Vol] 15 U/L Normal 0-41 [facility] Comment on above: Performed By: #### C MP ####[facility] ([id number])[address], [address], [place] [address] Bilirubin [Mass/Vol] 0.6 mg/dL Normal 0.3-1.2 [facility] Comment on above: Performed By: #### C MP ####[facility] ([id number])[address], [address], [place] [address] Calcium [Mass/Vol] 9.6 mg/dL Normal 8.5-10.5 [facility] Comment on above: Performed By: #### C MP ####[facility] ([id number])[address], [address], [place] [address] Chloride [Moles/Vol] 105 mmol/L Normal 98-109 [facility] Comment on above: Performed By: #### C MP ####[facility] ([id number])[address], [address], [place] [address] CO2 [Moles/Vol] 27 mmol/L Normal 22-32 [facility] Comment on above: Performed By: #### C MP ####[facility] ([id number])[address] [address] [address] Creatinine [Mass/Vol] 0.72 mg/dL Normal 0.40-1.00 [facility] Comment on above: Result Comment: METH OD TRACEABLE TO IDMS STANDARD Performed By: #### C MP ####[facility] ([id number])[address] [address], [place] [address] GFR/1.73 sq M.predicted among non-blacks MDRD (S/P/Bld) [Vol rate/Area] 84 mL/min/{1.73_m2} Normal >59 [facility] Comment on above: Result Comment: Repo rted eGFR is based on theCKD-EPI 2020 equation that doesnot use a race coefficient. Performed By: #### C MP ####[facility] ([id number])[address] [address], [place] [address] Glucose [Mass/Vol] 123 mg/dL High 65-99 [facility] Comment on above: Performed By: #### C MP ####[facility] ([id number])[address] [address], [place] [address] Potassium [Moles/Vol] 3.5 mmol/L Normal 3.5-5.0 [facility] Comment on above: Performed By: #### C MP ####[facility] ([id number])[address] [place] [address] Protein [Mass/Vol] 7.2 g/dL Normal 6.0-8.0 [facility] Comment on above: Performed By: #### C MP ####[facility] ([id number])[address] [place] [address] Sodium [Moles/Vol] 145 mmol/L Normal 134-146 [facility] Comment on above: Performed By: #### C MP ####[facility] ([id number])[address] [place] [address] Urea nitrogen [Mass/Vol] 19 mg/dL Normal 5-27 [facility] Comment on above: Performed By: #### C GUMARO ####[facility] ([id number])[address], [address] [place] [id number] BRAIN WO CONTon CT BRAIN WO CONT Normal [facility] Glucose Glucometer (BldC) [M ass/Vol]on 04-02-2023 Glucose [Mass/Vol] 124 mg/dL High 65-99 [facility] POTASSIUMon 04-02-2023 Potassium [Moles/Vol] 3.9 mmol/L Normal 3.5-5.0 [facility] Comment on above: Performed By: #### 2 823-3 ####[facility] ([id number])[address], [address] [place] [address] Potassium [Moles/Vol] 3.7 mmol/L Normal 3.5-5.0 [facility] Comment on above: Performed By: #### 2 823-3 ####[facility] ([id number])[address], [address] [place] [address] XR CHEST 1 VWon 04-02-2023 XR CHEST 1 VW Normal [facility] CBC AND AUTO DIFFon 04-01-20 ABSOLUTE BASOPHIL 0.0 X10E9/L Normal 0.0-0.2 [facility] Comment on above: Performed By: #### C MP, PINR, CBCA, 25571-1, 97480-3 ####[facility] ([id number])[address], [address] [place] [address] ABSOLUTE NEUTROPHIL 5.7 X10E9/L Normal 1.5-6.6 [facility] Comment on above: Performed By: #### C MP, PINR, CBCA, 78968-0, 47927-0 ####[facility] ([id number])[address], [address] [place] [address] Basophils/100 WBC (Bld) 0.3 % Normal [facility] Comment on above: Performed By: #### C MP, PINR, CBCA, 18469-0, 27394-7 ####[facility] ([id number])[address], [address] [place] [address] Eosinophils (Bld) [#/Vol] 0.0 10*3/uL Normal 0.0-0.4 [facility] Comment on above: Performed By: #### C MP, PINR, CBCA, 84090-1, 32223-7 ####[facility] ([id number])[address] [address], [place] [address] Eosinophils/100 WBC (Bld) 0.5 % Normal [facility] Comment on above: Performed By: #### C MP, PINR, CBCA, 87807-3, 99012-5 ####[facility] ([id number])[address] [address], [place] [address] Erythrocyte distribution width (RBC) [Ratio] 15.3 % High 11.5-15.0 [facility] Comment on above: Performed By: #### C MP, PINR, CBCA, 74053-6, 19441-9 ####[facility] ([id number])[address] [address] [place] [address] Hematocrit (Bld) [Volume fraction] 38.1 % Normal 35-47 [facility] Comment on above: Performed By: #### C MP, PINR, CBCA, 58241-6, 95035-0 ####[facility] ([id number])[address] [address] [place] [address] Hemoglobin (Bld) [Mass/Vol] 13.1 g/dL Normal 11.7-15.5 [facility] Comment on above: Performed By: #### C MP, PINR, CBCA, 04425-1, 54083-4 ####[facility] ([id number])[address] [address], [place] [address] Lymphocytes (Bld) [#/Vol] 0.8 10*3/uL Low 1.0-3.5 [facility] Comment on above: Performed By: #### C MP, PINR, CBCA, 63725-6, 03774-3 ####[facility] ([id number])[address] [address], [place] [address] Lymphocytes/100 WBC (Bld) 11.2 % Normal [facility] Comment on above: Performed By: #### C MP, PINR, CBCA, 33260-7, 62822-3 ####[facility] ([id number])[address] [address], [place] [address] MCH (RBC) [Entitic mass] 29.4 pg Normal 27-34 [facility] Comment on above: Performed By: #### C MP, PINR, CBCA, 73322-6, 33494-9 ####[facility] ([id number])[address] [address] [place] [address] MCHC (RBC) [Mass/Vol] 34.4 g/dL Normal 32-36 [facility] Comment on above: Performed By: #### C MP, PINR, CBCA, 85712-6, 40172-2 ####[facility] ([id number])[address] [address] [place] [address], [place] [address] MCV (RBC) [Entitic vol] 85 fL Normal 80-100 [facility] Comment on above: Performed By: #### C MP, PINR, CBCA, 16175-7, 71664-9 ####[facility] ([id number])[address] [address] [place] [address], [place] [address] Monocytes (Bld) [#/Vol] 0.4 10*3/uL Normal 0-0.9 [facility] Comment on above: Performed By: #### C MP, PINR, CBCA, 25811-3, 26748-4 ####[facility] ([id number])[address], [address], [place] [address] Monocytes/100 WBC (Bld) 6.0 % Normal [facility] Comment on above: Performed By: #### C MP, PINR, CBCA, 40100-1, 15931-1 ####[facility] ([id number])[address], [address], [place] [address] Neutrophils/100 WBC (Bld) 82.0 % Normal [facility] Comment on above: Performed By: #### C MP, PINR, CBCA, 22162-2, 87826-0 ####[facility] ([id number])[address], [address], [place] [address] Platelet mean volume (Bld) [Entitic vol] 8.5 fL Normal 7-12 [facility] Comment on above: Performed By: #### C MP, PINR, CBCA, 62351-8, 56060-6 ####[facility] ([id number])[address] [address], [place] [address] Platelets (Bld) [#/Vol] 91 10*3/uL Low 150-450 [facility] Comment on above: Performed By: #### C MP, PINR, CBCA, 00046-3, 76230-6 ####[facility] ([id number])[address] [address] [place] [address] RBC COUNT 4.46 X10E12/L Normal 3.80-5.20 [facility] Comment on above: Performed By: #### C MP, PINR, CBCA, 36610-2, 11198-3 ####[facility] ([id number])[address], [address] [place] [address] RBC morphology finding Nom (Bld) NORMAL Normal [facility] Comment on above: Performed By: #### C MP, PINR, CBCA, 32550-8, 40121-8 ####[facility] ([id number])[address], [address] [place] [address] WBC (Bld) [#/Vol] 6.9 10*3/uL Normal 4.0-11.0 [facility] Comment on above: Performed By: #### C MP, PINR, CBCA, 44768-4, 82131-6 ####[facility] ([id number])[address], [address] [place] [address] COMPREHENSIVE METABOLIC PANE Dennis 04-01-2023 Albumin [Mass/Vol] 3.9 g/dL Normal 3.2-5.3 [facility] Comment on above: Performed By: #### C MP, PINR, CBCA, 89250-1, 69511-8 ####[facility] ([id number])[address], [address] [place] [address] ALP [Catalytic activity/Vol] 72 U/L Normal 39-130 [facility] Comment on above: Performed By: #### C MP, PINR, CBCA, 51656-7, 03706-7 ####[facility] ([id number])[address], [address] [place] [address] ALT [Catalytic activity/Vol] 7 U/L Normal 0-31 [facility] Comment on above: Performed By: #### C MP, PINR, CBCA, 64565-1, 68129-7 ####[facility] ([id number])[address], [address], [place] [address] Anion gap [Moles/Vol] 9 mmol/L Normal 5-15 [facility] Comment on above: Performed By: #### C MP, PINR, CBCA, 57323-2, 67409-3 ####[facility] ([id number])[address], [address], [place] [address] AST [Catalytic activity/Vol] 13 U/L Normal 0-41 [facility] Comment on above: Performed By: #### C MP, PINR, CBCA, 40134-9, 07592-2 ####[facility] ([id number])[address], [address], [place] [address] Bilirubin [Mass/Vol] 0.5 mg/dL Normal 0.3-1.2 [facility] Comment on above: Performed By: #### C MP, PINR, CBCA, 38796-2, 59693-8 ####[facility] ([id number])[address] [address], [place] [address] Calcium [Mass/Vol] 9.6 mg/dL Normal 8.5-10.5 [facility] Comment on above: Performed By: #### C MP, PINR, CBCA, 97251-6, 50071-9 ####[facility] ([id number])[address] [address], [place] [address] Chloride [Moles/Vol] 105 mmol/L Normal 98-109 [facility] Comment on above: Performed By: #### C MP, PINR, CBCA, 41141-9, 17229-5 ####[facility] ([id number])[address] [address], [place] [address] CO2 [Moles/Vol] 27 mmol/L Normal 22-32 [facility] Comment on above: Performed By: #### C MP, PINR, CBCA, 83852-9, 34865-7 ####[facility] ([id number])[address], [address], [place] [address] Creatinine [Mass/Vol] 0.63 mg/dL Normal 0.40-1.00 [facility] Comment on above: Result Comment: METH OD TRACEABLE TO IDMS STANDARD Performed By: #### C SIMI NAIK CBCA, 19823-7, 62921-0 ####[facility] ([id number])[address], [address], [place] [address] GFR/1.73 sq M.predicted among non-blacks MDRD (S/P/Bld) [Vol rate/Area] 90 mL/min/{1.73_m2} Normal >59 [facility] Comment on above: Result Comment: Repo rted eGFR is based on theCKD-EPI 2020 equation that doesnot use a race coefficient. Performed By: #### C MELONIE NAIKR, CBCA, 65040-9, 32895-5 ####[facility] ([id number])[address] [address], [place] [address] Glucose [Mass/Vol] 112 mg/dL High 65-99 [facility] Comment on above: Performed By: #### [place], 723[address]-1, 42732-6 ####[facility] ([id number])[address] [address], [place] [address] Potassium [Moles/Vol] 3.3 mmol/L Low 3.5-5.0 [facility] Comment on above: Performed By: #### C GUMARO PINR, CBCA, 55626-6, 51250-2 ####[facility] ([id number])[address] [address], [place] [address] Protein [Mass/Vol] 6.9 g/dL Normal 6.0-8.0 [facility] Comment on above: Performed By: #### C GUMARO PINR, CBCA, 40135-1, 88137-7 ####[facility] ([id number])[address] [address], [place] [address] Sodium [Moles/Vol] 141 mmol/L Normal 134-146 [facility] Comment on above: Performed By: #### C GUMARO, SIMI, ELIASA, 97765-2, 09889-0 ####[facility] ([id number])[address], [address] [place] [address] Urea nitrogen [Mass/Vol] 12 mg/dL Normal 5-27 [facility] Comment on above: Performed By: #### C GUMARO, PINTirso, CBCA, 58129-6, 60947-7 ####[facility] ([id number])[address], [address] [place] [address] BRAIN WO CONTon 3 CT BRAIN WO CONT Normal [facility] Glucose Glucometer (BldC) [M ass/Vol]on 04-01-2023 Glucose [Mass/Vol] 101 mg/dL High 65-99 [facility] HGB A1C (GLYCO-HGB)on 2022 Glucose [Mass/Vol] 111 mg/dL Normal [facility] Comment on above: Performed By: #### C GUMARO, SIMI, CBCA, 63747-3, 76577-4 ####[facility] ([id number])[address], [address] [place] [address] HbA1c (Bld) [Mass fraction] 5.5 % Normal 4.4-5.6 [facility] Comment on above: Result Comment: NOTE ADA Guidelines Result HgbA1c Normal : less than 5.7 % Prediabetes : 5.7 % to 6.4 % Diabetes : > 6.4 %Use with caution in patients with abnormal hemoglobin variants asthe half-life of red blood cells and in vivo glycation rates areaffected. Performed By: #### C GUMARO, PINTirso, CBCA, 15292-1, 03485-0 ####[facility] ([id number])[address], [address], [place] [address] Lipid 1996 panelon 3 Cholesterol [Mass/Vol] 243 mg/dL High 150-200 [facility] Comment on above: Performed By: #### C MP, PINR, CBCA, 89334-9, 07142-7 ####[facility] ([id number])[address], [address] [place] [address], [place] [address] Cholesterol in HDL [Mass/Vol] 93 mg/dL Normal >39 [facility] Comment on above: Result Comment: HDL <40 mg/dL - High RiskHDL > or = 40mg/dL- DesirableHDL >60 mg/dL - Negative Risk Performed By: #### C MP, PINR, CBCA, 43063-4, 41798-8 ####[facility] ([id number])[address] [address] [place] [address] Cholesterol in LDL [Mass/Vol] 130 mg/dL High <130 [facility] Comment on above: Result Comment: LDL <100 mg/dL - DesirableLDL >160 mg/dL - High Risk Performed By: #### C MP, PINR, CBCA, 85350-4, 95949-8 ####[facility] ([id number])[address] [address] Cholesterol in VLDL [Mass/Vol] 20 mg/dL Normal 0-30 [facility] Comment on above: Performed By: #### C MP, PINR, CBCA, 02739-4, 83055-0 ####[facility] ([id number])[address] [address] CHOLESTEROL:HDL 2.6 Normal 1.0-5.0 [facility] Comment on above: Performed By: #### C MP, PINR, CBCA, 15205-5, 25364-7 ####[facility] ([id number])[address] [address] Triglyceride [Mass/Vol] 99 mg/dL Normal 27-150 [facility] Comment on above: Performed By: #### C MP, PINR, CBCA, 81913-3, 56092-9 ####[facility] ([id number])[address] [address] PLATELET FUNCTIONon 04-01-20 COLLAGEN/ADP 103 sec Normal 0-114 [facility] Comment on above: Performed By: #### P FA ####[facility] ([id number])[address] [address] COLLAGEN/EPINEPHRINE >300 High 0-179 [facility] Comment on above: Performed By: #### P FA ####[facility] ([id number])[address] [address] PFA INTERP This pattern is indicative of drug induced Normal [facility] Comment on above: Result Comment: plat elet dysfunction. Review patientinformation for medication, includingaspirin that may affect platelet function.This pattern has also been reported inpatients with storage pool deficiency and/orplatelet function abnormalities. If either ofthese is a consideration, further plateletstudies are suggested. Performed By: #### P FA ####[facility] ([id number])[address] [address] PROTIME AND INRon 04-01-2023 INR Coag (PPP) [Relative time] 1.0 {INR} Normal 0.8-1.1 [facility] Comment on above: Performed By: #### C MP, PINR, CBCA, 33294-5, 27220-8 ####[facility] ([id number])[address] [address] [place] [address] PT Coag (PPP) [Time] 12.2 s Normal 9.8-13.2 [facility] Comment on above: Performed By: #### C MP, PINR, CBCA, 11608-1, 02571-1 ####[facility] ([id number])[address] [address] aPTT Coag (PPP) [Time]on aPTT Coag (Bld) [Time] 33 s Normal 26-37 Pr [facility] Comment on above: Performed By: #### C MP, PINR, CBCA, 02838-1, 87864-5 ####[facility] ([id number])[address] [address] Outside Progress Noteon 06-0 Outside Progress Note [id number] [id number]. 00CD:127 Normal [facility] Progress Note-Nurseon 2022 Progress Note-Nurse [id number] 0CD:127 Normal [facility] XR wrist RT min 3V*on 2022 XR wrist RT min 3V* [facility] Main [address] [address] XRay Report Signed Patient: Ellen Chan MR#: [id number] 1 : 1945 Acct:[id number] Age/Sex: 77 / F ADM Date: 08/31/22 Loc: [facility]: Type: [facility] Attending Dr: Kate Mane MD Copies [...] Kristin Linares M.D.08/31/2022 3:33 PM Dictation Location: [place] [address] Transcribed By: [facility] 08/31/22 153 Dictated By: Kristin Linares II, MD 08/31/22 153 Signed By: 08/31/22 153 Normal [facility] XR wrist RT min 3V* [facility] [employer] Other XR wrist RT min 3V* [facility] Main [facility] [employer] Other XR wrist RT min 3V* [address] [place] [address] [employer] Other XR wrist RT min 3V* [place] [address] [facility] [employer] Other XR wrist RT min 3V* XRay Report [employer] Other XR wrist RT min 3V* Signed [facility] Other XR wrist RT min 3V* Patient: George Chan MR#: [id number] [employer] Other XR wrist RT min 3V* 1 [facility] Other XR wrist RT min 3V* : 1945 Acct:[id number] [facility] Other XR wrist RT min 3V* Age/Sex: 77 / F ADM Date: 08/31/22 [facility] Other XR wrist RT min 3V* Loc[place] [facility] [place]: Type : [facility] Other XR wrist RT min 3V* Attending Dr: Que Mane MD [facility] Other XR wrist RT min 3V* Copies to: Kate Mane MD [facility] Other XR wrist RT min 3V* Ordering Provider: Kate Mane MD [facility] Other XR wrist RT min 3V* Date of Service: 08/31/22 [facility] Other XR wrist RT min 3V* XR/XR wrist RT min 3V*: Other closed extra-articular fracture of distal [facility] Other XR wrist RT min 3V* end of right [employer] Other XR wrist RT min 3V* XR wrist RT min 3V* 08/31/2022 10:42 AM [facility] Other XR wrist RT min 3V* SIGNS AND SYMPTOMS: Status post fixation of distal radius fracture, follow-up [facility] Other XR wrist RT min 3V* PROTOCOL: Frontal, lateral, and oblique radiographs of the right wrist [facility] Other XR wrist RT min 3V* COMPARISON: 07/20/2022 [facility] Other XR wrist RT min 3V* FINDINGS: [facility] Other XR wrist RT min 3V* There is volar plate and screw fixation across a distal radius fracture. Healing remains incomplete. [facility] Other XR wrist RT min 3V* No change in alignme nt or hardware complication. There is diffuse osteopenia. There is a remote [facility] Other XR wrist RT min 3V* ulnar styloid fracture. The radiocarpal joint is unchanged. Degenerative changes are present at the [facility] Other XR wrist RT min 3V* base of the thumb. [facility] Other XR wrist RT min 3V* XR/XR wrist RT min 3V* [facility] Other XR wrist RT min 3V* IMPRESSION: [employer] Other XR wrist RT min 3V* Distal radius fractu re status post volar plate and screw fixation without change in alignment. [facility] Other XR wrist RT min 3V* Healing remains incomplete. [facility] Other XR wrist RT min 3V* Impression dictated by: Kristin Linares M.D.08/31/2022 3:33 PM [facility] Other XR wrist RT min 3V* Dictation Location: [place] [address] [facility] Other XR wrist RT min 3V* Transcribed By: [facility] 08/31/22 [facility]3 [facility] Other XR wrist RT min 3V* Dictated By: Kristin Linares II, MD 08/31/22 [facility] Other XR wrist RT min 3V* Signed By: [facility] Other XR wrist RT min 3V* 08/31/22 1533 No [facility] [employer] Other Consent for Treatmenton 08-07 Consent for Treatment [id number] [id number] 0CD:127 Normal [facility] Heart and Vascular Office/Cl inic Noteon 08-30-2022 [...] Mother. Diabetes mellitus type 2: Father. Normal [facility] Comment on above: Result Comment: Elec tronically Signed By: Justino CUNNINGHAM, Leon FCara\.br\Date and Time Signed: 08/30/22 13:48 EDT XR wrist RT min 3V*on 2022 XR wrist RT min 3V* [facility] Main [place] [address] [place] [address] XRay Report Signed Patient: Ellen Chan MR#: [id number] 1 : 1945 Acct:[id number] Age/Sex: 77 / F ADM Date: 07/20/22 Loc: [facility] [place] Room: Type: [facility] Attending Dr: Kate Mane MD Copies [...] STUDY. Impression dictated by: Kit Quinonez Jr., D.OCara07/20/2022 2:40 PM Dictation Location: [place] [address] Transcribed By: [facility] 07/20/22 1440 Dictated By: Kit Quinonez Jr, DO 07/20/22 1439 Signed By: 07/20/22 1440 [facility] Coding Summary.on 06-21-2022 Coding Summary. CD:[id number] Gh 0bWw+PGhlYWQ+HP3IDJFeT 76kuHPrtI5lZ9VOOHoSKuj sBBZFVJaVMrMwilHmFM1ht XNjZXJu IC8+PQ2sNSRqCehhsMElj1 C8oET0Z67xqd0lGRgwsYR5 JAVfAwKtsumuu8qkrWc6OL cuNmluOyBt KQLbbE19KTS3iY46Fu29mK YywQWuw2nbiYa8SzMcIZYz PBQ7eWfsHXsyn7GtWGEuI5 2arNLhy6X8 SFXqqMqqlNUzStJwpTD7lB 0eXDruukrld5zwwlwkJrp5 ry04hLBrx9P3jPE7S8Wmcs L4KDYcvTOp KgaxaLSRfM3jnkvst0aqrc nmXbDwKRDbFKh3CBf8XEJw eNxfDzEaOE59QAT9LBWgxh SoZ2SuBBNe kOpqLoD3t9X1Ck6SM1DUAj lyR7DSCZFQUAlgiDN+PC90 vo05P6ImOqpzWwk6QFAjCR Q7eMY9iP6t ESYsQGehw9E7zCQ7I4Bzpr Mssj1ok3pxRYKxMRhaN38a lKDox3C1OYQnoNU1LJJezB ljHnPwrL92 Oyc+PONndAgda7FuUfkar1 see7igsWo6DkfnRCPjfeDx gNvdCPP8f3QjFh5aNXEueF L6mJJ0bQ1m DoGeMzR2FBokD416UcUgrY RcLmfxV19zX2FspTJ+PHRy Gfc2BQHaqHyyHZ9fE4QnAP RpbmctbGVm dXnsWE3aLRRlyimkUGGizY 4uOETjM6y1KuEuQaC3RYkz K6PyYSUqqulkPm26vG0bAe XvGzY7GYye Z4FtppJ6CFUdlCTnKPznPV X3E55ej3Y5JDUaGEIsMBA6 cLU6aW4xrQbqpgejhIUdwT sgdmVydGlj PAelQQfyA549OYFsfOwlJd NvZGluZyBEYXRlOiAgMDMv MTYvMjAyMzwvdGQ+PHRkIH K6wIuvQTRa cTPxZVjjNd7kxOztdDthDB 8eOZQkzfraECNczF8eDCOe lOZoyCziDB2mQNJptzwpg6 15UwMyERB4 ZGNbcCUkU5CfzY8oEsYpHK XjZMGwG1PkkMFcYKmvK537 SZovQdK6BDOvgkYsK2ZbRG FsaWduOiB0 e6U7Xb5Tz4XtskywH7DpxT LsCfHjUgtmXNh5R0IwPuhj dHI+NG09TCNvCM60ZTw5XN A7wEgqYTpr NXUmN5KwbI8nXdDtPFPsWN RkOyc+PHRhYmxlIHdpZHRo ATznOFLsIcLnpPonXD4tBh 9yZGVyLWNv eJegqBNiEwFtw2dwZRZsON aiFS1aqVdlI5CfuFU2BKNh o3i9Cy25O16dU3QkrNA+PG UuiOG6hIP7 aE2xUkXlJrD3YEheL876Hr KlrMEfXzzas4iov9vacLw6 WrE1FIVareCekZprQLX8k5 PbSo39R73e IHdpZHRoPSIxNSUiIHZhbG qxfi1teB8uRo4+PGNvbCB3 pZB7dR8tWqBoMcN9IOaqQ2 49InRvcCIv Urpro3jbo6jrwSp5MmLaJJ KcjuGneVtzYIP1r1CcWy45 Y9AxdAeuu1YbRcv4pj45gY Lpm0X8tBU2 Y7WdLYWwzwcziBJsuTwvXE 1pYZCatpurHHUtmL2cCMCh R6z7YlSuWrX5UTzbJ4Qgmc Y5OWCbgNEm POCqrPZRnN6cfwqdo9immi sjRgZoRZKwQDo3ZKt9FXMd hJimNqRwGYX5HvN5WBY8eS QgxN7inSij kanlyQ4xGky+QWZ3eLHyeO XSSA2bQxgyaZM+PHRkIHN0 cZbxMRbkCWKxrX9aWGMbI7 q6YzPdSwF8 SYgvV6SxweR3CRZoyGCqRE TswDKXuL9tldxnd5sfotgp JdTqTZTgHTo4LCy9FSIbnY duOiBsZWZ0 YcY5NOD1mBZsnM3ybApmvr lphY9jFvr+QmlydGggRGF0 MXu1A8TyAbm0UBHzgKwiRM 0ncGFkZGlu Ig9aeTivaFgfJO5qFXIoqb zpj833SwHox9orSZSshKCl FKzeCVN2I40op8D9DPUgDK VlVTT8uYL8 xV1ioGferrwkaBSfxQpflx GozHtuYYczEXjiI001YWMw vMrsUrYcEDb3P2PsUvi9CW RnrNhfPJ8f kRIwFGzdGj6slEqrjSatIA 5tTEQwzvnve363SbBlf5bm GDSdjRMzNOvgPDH9W53wq4 Q4UOJnFBOu NMG3dWS3yJ8eiUtzgpmleB VmdDsgdmVydGljYWwtYWxp B839SCYwoKlvYkEmxRm3E4 HrCwe6OQPb xLoaDK4niUTgHNubLc8viB sahIioFO6qAEFibmxwv515 OhFzm4kiQXHirDJyQEkcZK U9D07vm5Z6 EOIrAASoQHB7jWB3jN9mtH lnbjogbGVmdDsgdmVydGlj HGvlNQcuL834XEFizHlfTr BhdGllbnQg VFfoFFa6P9CkHukqeCM+PC 03WGImMQ17gJBruRHft2se oRe1TtVzKNMkLFA4rYlhLO uzf4RcIZMt E11flVJqp6F1QWXawVqzkK OcWsUphWE9qT9vOXhsghoa a3jvxqahDzugx9sksr85fR 81Z94qKLwm ZHRoPSIzMCUiIHZhbGlnbj 8vnH1oYp5+JVIeiEO1mMI0 rX4cADWdBkX9WSmtL415Pg RvcCIvPjxj d6rix1ndeRz3FqM4WCRpxc HfyHnyXKP1c7FgGf68Q21v IHdpZHRoPSIyMCUiIHZhbG mdpf4anJ6c Ii8+OSLtoTS9uXQ9qJ8uSa RyHuL3XLajX613EtPzwMOu GgytC38pM1WxzWZ+PHRyPj q2AMZveLwd TU4orUCqIRxvHu0uBUY1Kr OoTpWsBJyuP2SrMUJcvasx vwuykTL6YFLtVVQxpH82Mf 9udDogMTBw yXCVyZ7zwchqh1rgeepfYb ShGBMmTAu8RDk4TOWcoHqt WjNhSSK0KjG4VMA0jLQtcS 1hbGlnbjog jW4cY1HiWFEoepyyFc65tW 7bQsErGtL6NJjoEuh+SEFZ X9SUNCddGX4FYVJ9A3HyUt b6AOQgsWao WW6ikCFzDFgjPf7kuHxvkL hjZB1jBRUzafeiAXKuyW5k TPKjtXPakTseXE2lRJVbqc lvl626VgEy IQE6NKIilMKcD3DdwM2iCq ZtJIYyNLAfO1BegJPbTFvu R252VUrzOwQ6PHCvgxMqY2 FsLWFsaWdu HyS4l0L2Xb7tDq6mMZ8mEJ XsEH73WD02cLObx2F7mEP2 C3YhIIKidvutgdnheZJ9VQ UpWEJukU67 wENjTRlqVk1kf5B8t978QP QpCOWmdB06Nb1odOkpSXTq tAZEjX6glvxmb7edeorbEt AwMDAwMDt0 UBs6OPDmyFewZeEaOHC2Ap A9HPN4dKYacE4hkBurrcig pK1pBdd+BsktKCUykeW0M8 XcOiu6IZHp aGlhWV6txNHuYEqfKb5lzA extIwfMP1nWNVmdlsyWVKe bC3rIOPguACbdKxtZC7zWK Hcddhbj053 DdOoQWW7LKZqmZXjH2IenY 9jJnPjYZKcURAnM7TogXMe ZGcpE435LXlsJmO9TQWnae FuN0SwZBMx zHixRsJ4v0H5Fu2OUS2lhX M4Z7KzBtk5PKDzjQpjEG1i nCZyAFyqSx7utTeanSjdIC 4wNTBpbjtw RFMqyG0fGQAkeLOeiWbrHW 8uMEEbesdfw760BwAgAWR5 VOStsRJsK4DglM8kEiPaQZ FbWMKhH3Na aERbNPqxK991OEovJrX4QY WokdAgT0OhVJCchLclWiI9 e3G3Hq6SfMBiOEOsMX98MM 31QQ13X1Th PjwvdGFibGU+PHRhYmxlIH dpZHRoPScxMDAlJyBzdHls WF2yXb4bPKTmXCQqyAjwmX KbPoGsm7bq WCScVXxfUI3wxKmoF2VzaB S9WCTmp8e3Xb58K24kA6Us dXA+VLIneFM6vXU7jZ9zPt XyGhD8ODcc D019OnSsiEMeSunkr7vuc9 caiIm7PfMhOLZgsoFdpAoa LEW8d4JrFd17I59tRSjhXG RoPSIyMCUi CFWusRiqad3kpA3qCa3+PG RlbNM1wBE0eF4jEtBwKpO8 VOopP877ZgXxnTQaKhqvN0 2tR1CzzXY+ ISJzHts1XZKlfFjcOF9ivZ UzFJmrKh5kGYK2TdImFqPc WAatZ2WnHWVxdgynmtkpbI E2JRLcJCWo vO79Om3tqFolLj7xOCFoTB X8NSImgOIgO8YemY1nPeOf DMUoNHGaJ8BeyEKwOWldA2 06KOywEyD8 TIZfvjIqD5CdEZZoqWrgOh D4v2C0Cv1EtJmwiBVbLR6a WpWzKMu5Z2OoMqe7ZNVinW pePR0ujIKu CXaiIz2kpEjofFzxUL1cHW Simovvs862OeNml4kdUUWp qKWuAYdcEVT8F54bj6U3HH MwMDAwMDA7 aSO7pH7zpEjghsebhFZbnA gfwzEefOfhSIyjTHnhS625 PBWbbUsnNdBUWho5R3ShXb c8ZZIgiBcn HO5kbMTkICvvEq6ksXjweX obCB0pKGCklbtmh020GyWo y2imYQMflVBtYUyhBCI0M3 8em0F5XDDd QGNaGFW2lDJ9tH2dkJfyga ogbGVmdDsgdmVydGljYWwt KNvlN922ZUKenQguWy1AKq e8G2PwZqj2 HSLsqYsbRE9imHWoCTkuRk 6gaHcssKpmWG3lMDThczgt w951UeNhd4nvDKMqpHJqLJ utYOZ8N34m b0M5WEMnFOIeHKA6lXM9eQ 1hbGlnbjogbGVmdDsgdmVy rPfrJFwfFFbmM169VLQrkY snPlBheWVy OjwvdGQ+LE62cp54A0YnMa zeIfe0TKQyMSU7uIV0bV4f MXXfZNsyn9K4wWP7W3Xhmg Anzo3wu9vd YXBz (more content not included)... Normal [facility] XR wrist RT min 3V*on 2022 XR wrist RT min 3V* [facility] [place] [address] XRay Report Signed Patient: Ellen Chan MR#: [id number] 1 : 1945 Acct:[id number] Age/Sex: 77 / F ADM Date: 06/20/22 [place] [facility] [place]: Type: [facility] Attending Dr: Kate Mane MD Copies [...] Quinonez Jr., Steph06/20/2022 3:28 PM Dictation Location: [facility]12 Transcribed By: [facility] 06/20/22 1528 Dictated By: Kit Quinonez Jr, DO 06/20/22 1520 Signed By: 06/20/22 1528 [facility] XR wrist RT min 3V* [facility] Other XR wrist RT min 3V* [facility] [employer] Other XR wrist RT min 3V* [address] [place] [address] [facility] Other XR wrist RT min 3V* [place] [address] [facility] Other XR wrist RT min 3V* XRay Report [facility] [employer] Other XR wrist RT min 3V* Signed [facility] Other XR wrist RT min 3V* Patient: George Chan MR#: [id number] [facility] Other XR wrist RT min 3V* 1 [facility] Other XR wrist RT min 3V* : 1945 Acct:[id number] [facility] Other XR wrist RT min 3V* Age/Sex: 77 / F ADM Date: 06/20/22 [facility] Other XR wrist RT min 3V* Loc: [facility] Room: Type : [facility] Other XR wrist RT min 3V* Attending Dr: Que Mane MD [facility] Other XR wrist RT min 3V* Copies to: Kate Mane MD [facility] Other XR wrist RT min 3V* Ordering Provider: Kate Mane MD [facility] Other XR wrist RT min 3V* Date of Service: 06/20/22 [facility] Other XR wrist RT min 3V* XR/XR wrist RT min 3V*: Other closed extra-articular fracture of distal [facility] Other XR wrist RT min 3V* end of right [facility] [employer] Other XR wrist RT min 3V* RIGHT WRIST - 4 views [facility] Other XR wrist RT min 3V* CLINICAL HISTORY: OR IF right distal radius fracture follow-up [facility] Other XR wrist RT min 3V* COMPARISON: Right wrist 05/23/2022 [facility] Other XR wrist RT min 3V* FINDINGS: [facility] Other XR wrist RT min 3V* Hardware fixation is seen involving the distal radius with a fracture grossly unchanged in [facility] Other XR wrist RT min 3V* alignment. The fracture line is less conspicuous suggestive of healing response. Styloid process [facility] Other XR wrist RT min 3V* fracture of the ulna is unchanged. Bones are grossly demineralized. Carpus demonstrate degenerative [facility] Other XR wrist RT min 3V* change. [facility] Other XR wrist RT min 3V* XR/XR wrist RT min 3V* [facility] Other XR wrist RT min 3V* IMPRESSION: [facility] [employer] Other XR wrist RT min 3V* HEALING DISTAL RADIU S FRACTURE. [facility] Other XR wrist RT min 3V* Impression dictated by: Kit Quinonez Jr., D.O.06/20/2022 3:28 PM [facility] Other XR wrist RT min 3V* Dictation Location: [place] [address] [facility] Other XR wrist RT min 3V* Transcribed By: TATIANA 06/20/22 1528 [facility] Other XR wrist RT min 3V* Dictated By: Kit Quinonez Jr, DO 06/20/22 [facility]0 [facility] Other XR wrist RT min 3V* Signed By: [facility] Other XR wrist RT min 3V* 06/20/22 1528 No rt [employer] Other CTA Abdomen and Pelvison CTA Abdomen and Pelvis Exam Date/Time: 06/15/2022 12:45 EST Reason for Exam: E71.40;Abdominal aortic Aneurysm (AAA) Report Review CTA chest for report CTA of the abdomen and pelvis Ordering Provider: Leon Badillo FINAL REPORT Dictated: 06/16/2022 10:17 am Ivan Saavedra MD Signed (Electronic Signature): 06/16/2022 10:17 am Signed by: Ivan Savaedra MD Transcribed by: RIA Technologist: SANDRA Technical Comments GFR (mL/min/1/73m2) >60 Contrast: Isovue 370 Contrast amount in ml's: 100 Normal [facility] CTA Cheston 06-16-2022 CTA Chest Exam Date/Time: [...] 370 Contrast amount in ml's: 100 Normal [facility] CHEMISTRYOrdered By: SYSTEM SYSTEM on 06-15-2022 Creatinine [Mass/Vol] 0.7 mg/dL Normal 0.5 - 1.3 mg/dL [facility] GFR/1.73 sq M.predicted among blacks MDRD (S/P/Bld) [Vol rate/Area] mL/min/1.73 m2 Normal >=59mL/min /1.73 m2 [facility] Chem S GFR/1.73 sq M.predicted among non-blacks MDRD (S/P/Bld) [Vol rate/Area] mL/min/1.73 m2 Normal >=59mL/min /1.73 m2 [facility] Chem S Consent for Treatmenton 06-06 Consent for Treatment [id number] [id number]#1.0 0CD:127 Normal [facility] Creatinineon 06-15-2022 Creatinine [Mass/Vol] 0.7 mg/dL Normal 0.5-1.3 [facility] Comment on above: Performed By: #### 2 [id number], [id number] ####[facility] [address] [place] [address] eGFRon 06-15-2022 GFR/1.73 sq M.predicted among blacks MDRD (S/P/Bld) [Vol rate/Area] mL/min/{1.73_m2} Normal >=59 [facility] Comment on above: Order Comment: Order added by Discern Expert. Result Comment: eGFR is race adjusted. AA=. Performed By: #### 2 [id number], [id number] ####[facility] [address] [place] [address] GFR/1.73 sq M.predicted among non-blacks MDRD (S/P/Bld) [Vol rate/Area] mL/min/{1.73_m2} Normal >=59 [facility] Comment on above: Order Comment: Order added by Discern Expert. Result Comment: Alarm Mechanic romana kidney disease could be indicated at eGFR's of less than 60 mL/min/1.73m2. Kidney failure is indicated at less than 15 mL/min/1.73m2. Performed By: #### 2 [id number], [id number] ####[facility] [address] [place] [address] Physician Orderon 06-14-2022 Physician Order [id number]#1. 00CD:127 Normal [facility] Coding Summary.on 06-05-2022 Coding Summary. CD:[id number]:[id number] Gh 0bWw+PGhlYWQ+FH3IFYGtQ 68bmBSngK6KT8eBDY3XKXX OZNHRAO2MRZ4bjRS8KEtaM 2VybiAv LxdpxRJkCR04VUv5GWI9vX zhNGghdM0cbXIhC4h2WqMk DY52yB51CIjmFQTwPmK3Dx ZpbjsgbWFy C8bkJuMagOYrLyz+PHRhYm xlIHdpZHRoPScxMDAlJyBz lLtkYR1bNm0bHVHdKTVwfS xhcHNlOiBj k0leJAVyONqgUW7zuRdiB1 UnqPV4TGLix2u3Df67yIG+ BFMgYXJ7cRwbBToaf761Kw Brh2ktGAU7 lYSuXMurBJV6E26po3I6JO TpPOAaSYG4eVI9xC2psLkn wnhzA3KryWUyEoI5UWL2qN KucG4ojVyl paxabE3gWkl+G42ENF0OMA EOOF9WXfv1O4LnKdfbxKT+ GO54UXAdCW45qKHcmNIzs2 snyZa8DeYx HOChXHT1xFkgOApev3PiXC HdB32dbMGbz6E3UBGisFub xHPeJhBqoWW2kS1iRYvwpd sgs6nsgjce Nmypy9wmne00pF29D62fKQ dkOUQsGFV7KXFpDLEokCkt zx3bdV3lEo0+ZLibv9ebo4 nuzAe3AtCt QCKtxuBrgZrcHOM3d9NbUd 81R2PmbIppi3JnMbp0cw65 zZUzb9W0yBL6OBviLKVywH 7jESdrMyM1 COIsCtAzpS93uYVsNVdnHn 7wxVhhgJmbQL1fKDYmbbev IKZdtM9hZHTbrGPdwAvkRD 4wNTBpbjtm a782LaIoAJO3BPNpzAWpT2 FtzC2hCnJtDSYlTUBwV1Gm xOFvYKgqO930KMilYvK1VZ FpblUxQ1Ug QMBjsKjqXyF6f9C3Xs5Fr1 OxjbonYKZ7NJqrXQScWmU4 XsNjIyO7E2RpTtc3NNObgF zrDI4hO7Oo IOGasdnccdthfHC9PVFpHN GpvK09dSYxPDekTa7tj9X7 l477FQZsWQRcdI50Gv1baL ogMTBwdCBU qN0waxrsh8xlvobmInBiII ZuPMr9YYs3GKMknGrjEuTq JGB4SnI9KIP4iDUeaW4ruI ivfkyauE3n Oyc+S62xcD7eYAI3BDJ5wk eoMHWuvrSnOX53HM43X0Oa PjwvdGFibGU+PGRpdiBzdH yzQX9kYrKj c4lqv3KhMJcrJ5NiCEFgBU agAdd8DEBmDUU4eUI8gE6b RLGaBHtai7C1fDT7O3Gbmh Mlya4as5sc DCFiEVnuK62fpLNsd9D4DM TzuWH4FOGvgHtzMtPnaJ33 Oyc+UKPqlKigp9YjEohfa1 cos0hmpEl2 EfClROWlecAkxWgzNLN9l0 FkYh14W61kWCyoIXMnZVEs SXInIRIphRjxwm2tnC0mNf 8+PGNvbCB3 wZC0lZ2jWOPvVhL4KGleE0 73IvZbcSNmNkklw2ncl3yz sQl2JqBvERQpotDeeDpbQI B4q8OyNa43 L27iUAkyJRHxNDFgINGaYA YoxCaxfp3edV4wIj5+PC9j d2ynkl22oG03oYC+PHRkIH G9nYtrKRvt QNGahM7vFDhhPrN1EOFhXo OmzQ48nDOkKMdzXd3fgViq nRszQN6wSUSkyryej084Mj Prf2edURDc nDWsVWoxYQA3Q77qv3T6HM ZjXLEzOKT9gTL3qK3jkRgz bjogbGVmdDsgdmVydGljYW vfLExoM751 IHRvcDsnPlBhdGllbnQgTm TwPKw6O9PiQoq6OVHhhKfa JN6laPEkAOwrAn8jsVbihC oiPF0gHHSp qpdqf401ErZym4pwZSIuoF RdHUmcYMW6G06eb0P3ZYHi HQChNZL8pBS0oG6fsXmgrz ogbGVmdDsg jpFxtPkaOYvqWXzxK009YD RvcDsnPkJpcnRoIERhdGU6 NK21SF75gIRvt3P7zVR7I4 BhZGRpbmct qtugcLL9YKGxLDEuuK83Ml 4xkPrcYh0rOANfHOV3MOPy wXCpF8InjG6jYxFdPDJuZA KmE0RhjRSd YLagE946QGspXdB9TXBfho ZcG3UxWSSuzIwnDbI0s6G6 Ps5UP5Y6KW90LO79dRRvv2 P8uEO5O5Gm MDAoyymvzttsjLV3DKYjZY KvzN68Jg8fbMmsLb2jANLs XIJ4JRTjrUGnF7FhnZ0tRp AjMDAwMDAw P3YynXQiDGmoV877YCwxGw H9BGLozkXkU5XeEDPejBli FaC2z4P3Bs0CXQd3RX73AB 78hVCem3V6 fRK5G7MxPSVudvezpgwzsZ X8BLJwODYxlI75Re5yfJyj Va1xOWZbNUJ4RWYezDLcG5 VvoP1qOnZh GOJoDWFoP4ThuFBvSXtzZ9 36QUccExP3HAPzudVyP2Uw WPCpiKfpTyZ1j6I9Yy5BOB DqZK19MNS5 tTC6WC04TS81D3GhJaaosQ FibGU+PHRhYmxlIHdpZHRo HOhkALFsPmCygMnpWA6tXi 9yZGVyLWNv wFhnbDTlScKqo2qdBLPtGC grMR3cuBxgK6SrhVG6DXZy s7y1Tm27A06kP1IcnTK+PG DpwIL3dFA2 nF1oEvRjBkV2BWorD692Sl ExrOEcEapsr2qkr9umaPm5 QxE8ROLwtwNzwLmxPIM1c4 SoSd38C91b IHdpZHRoPSIxNSUiIHZhbG vqhc1btK0pJd8+PGNvbCB3 lWH9eL1yNdHcDfO0AIlpS8 49InRvcCIv Rsdua0vta1vdzPz5ZbSaTG RavtAuzXovSPH4y3JwHo88 F6HcxMbkw7DePsp2cl91xK Lfk8X6qVZ2 L1UzZMZolhloxOScwPjrDX 3eLZOgqnxcLKCypZ4lFSAa U8z3PqKqGuR2QAonE4Yfrd Z7VZZivBCg CTekLDM0A51yr3O6DMCtQQ MqAOG3iRP0dR5abRzqxaqm bGVmdDsgdmVydGljYWwtYW raW666UHAt fQegDHDelP6lKZGkvTUjlQ fwZG3zSOKjaypyTclODXeI DkGgPVBLFjpBXE88AB97dA Iel4N8kFX7 J7LcGCNsrvzinolwuVA5RD JqZBHvjD01cYIlRTbnQc2c k5X8c722WXDtRYYskM88Tx 9udDogMTBw lRRYdX6qoanfq4ytblshTx ClEGIaKBt4KFw2LJPolXry OxAoKRZ8RdN1PJN8qSStmF 1hbGlnbjog sK3vXyn+KLEuHXTxEDx8Fs wvdGQ+WOLuZPV4wHboVXet GNBljZ6mIKFqO6p0GcZfDn M1QMttL6Ft TEEakuipZg99yI9sEyXnDa S8CRmrQ5KiquT5LVBbrKJa SRixDWX5E95qc4G1JQOqMW IaCEJ1aIL8 fT6ipObedmfoqZQxbIkdch VmvEanBRdjSOtuD974CVCx bJzzGqn3CUvjHEMcGY25LQ 12tSXms0Z3 fTP8N2ItNZAnmffzpumpxC K6YCPwXGBkhK47mHGoXRrr Qz0pw5M8i038HYSrUSAimI 97Rf2iuWrj IDGkiWTKmE1usxgzl5mbxx ikPtWbQHDvHMb7ZYp1PCQg zPxrEpAnHCC8WaY9EGK3zX MyqK6nzVln wwkvbJ5hJuk+RmVtYWxlPC 08ME52nJVgi5M9oKO6L1Cc WHZaorcfcujadHB1MACxQL LjhN98nKRt SYqdFy8pm4Z8w913RRPgDA RilY36Iz0ldIpaBXDxkKPN eD2cpighe3mqnddsRwCtKG JoYLw9ASb5 EZFcnEhnLbCaMFQ6GrW5QX G0hHBpyH6raYkptvujdU4x Oyc+G1T2nTV0hTAnyWjbaM Q+PL26ju61 P8PzHwmuMco2XFOjXCZ5iV S9bM2wBHXlRMywd7B9mFM0 G6BpbsFltw9ep3ilFVYuWB fvG44fcYRw f5O3ASYprMP1ELVzzOddKh AhcV77Koi+OXWrfAqss6Ys Yjlrv4quv7znjUe0ZgQrAB IgdmFsaWdu EOS8m3VmNe18D28pIWphEN WwDUJoCQYqHPWntPxazm2b kO9xNb0+JEOqwOR3bBK4aJ 3xIlYuZmQ6 JPutY135QiYepJWbYaqtt4 iys2zcjNi0AiPeBGMoqzAo aTcnPHF1t2AuBr86U7ZxhT vch6TvGns9 ak96sTFru1Z7cFB4E7RwDB QgwcdedARcvKjyGN6xLKZd orttEQYmfL4tGCGbB4r4Iz UbQhX4ZWll Z1UfkgV2XIBuiBWpAOPchA LFvA3nliloz0kwypetGjXd NEZcWHi0VFt8RLEwjVpvHv BsPJQ9VoK9 XRZ4vSPdkH2vlRhvhtlpoD 9wOyc+FKi8t4khsEWmFG3x nDK8RL87DI61uMAge5X3mK O7Z3RoOKNx zlfyrobxxDS3OXOcJXXrwT 00Cx8wsGguYd7nELTlYMF3 VFNxhMXvG5CqlQ6pNcQbRT WsZOXvF0Ud tXNvKMszL201CKqzWqG3QR HmalXeQ9ZvCBYkaHzaTkS2 k4Q6Xf2PMV42YM14PZ47xF Jbb5B1dOY2 R7RhLTXeabvvgqpwgTC5CQ PvELYirO49Iu3lrBfwIl9g KSGhPJP4WLQlhRGoU8PkkZ 9yOiAjMDAw HQJrU0HmpFYzSLeaW630CH jqGbP0QRXpduJuZ5NqZJLc mTzxSyW9j7V1Nd5EAh68FU 37LD19qMOq j7Q6oTS2R5MpYSPvagagbd jctIO9JLLxGCFeuY28Ld3x sMcuSy7lBLSkUUT5DLDfrT EeK3DlrH6a UuUmSWJbZFVeA2ArcKFfQQ jeE983XZfaWaI3TPNwmtTj I3YsLPVjsTixQzE1z3R5Gt 9DSCakboe4 P5SbMzartYZ+MQ16YFAtSU 86vVLwnRNpp1tebLp4GlQc JJGbBSW9nMwaKAytc4ObYT ZbL11sfKJq c2U6 (more content not included)... Normal [facility] Consent for Treatmenton 05-10 Consent for Treatment [id number] [id number]#1.0 0CD:127 Normal [facility] Heart and Vascular Office/Cl inic Noteon [...] Mother. Diabetes mellitus type 2: Father. Normal [facility] Comment on above: Result Comment: Elec tronically Signed By: Justino CUNNINGHAM, Leon Ruiz\.br\Date and Time Signed: 06/04/22 11:00 EST Physician Orderon 06-04-2022 Physician Order [id number]#1. 00CD:127 Normal [facility] XR wrist RT min 3V*on 2022 XR wrist RT min 3V* [facility] [address] [place] [address] XRay Report Signed Patient: Ellen Chan MR#: [id number] 1 : 1945 Acct:[id number] Age/Sex: 77 / F ADM Date: 05/23/22 Loc: [facility] [place]: Type: [facility] Attending Dr: Kate Mane MD Copies to: Kate Maen MD Ordering Provider: Kate Mane MD Date [...] Quinonez Jr., D.O.05/23/2022 3:50 PM Dictation Location: [place] [address] Transcribed By: [facility] 05/23/22 4720 Dictated By: Kit Quinonez Jr, DO 05/23/22 1548 Signed By: 05/23/22 1556 [facility] XR wrist RT min 3V* [facility] [employer] Other XR wrist RT min 3V* [facility] [employer] Other XR wrist RT min 3V* [address] [facility] [employer] Other XR wrist RT min 3V* [place] [address] [facility] Other XR wrist RT min 3V* XRay Report [facility] [employer] Other XR wrist RT min 3V* Signed [facility] Other XR wrist RT min 3V* Patient: George Chan MR#: [id number] [facility] Other XR wrist RT min 3V* 1 [facility] Other XR wrist RT min 3V* : 1945 Acct:[id number] [facility] Other XR wrist RT min 3V* Age/Sex: 77 / F ADM Date: 05/23/22 [facility] Other XR wrist RT min 3V* Loc[place] [facility] [place]: Type : [facility] Other XR wrist RT min 3V* Attending Dr: Que Mane MD [facility] Other XR wrist RT min 3V* Copies to: Kate Mane MD [facility] Other XR wrist RT min 3V* Ordering Provider: Kate Mane MD [facility] Other XR wrist RT min 3V* Date of Service: 05/23/22 [facility] Other XR wrist RT min 3V* XR/XR wrist RT min 3V*: Other closed extra-articular fracture of distal [facility] Other XR wrist RT min 3V* end of right [facility] [employer] Other XR wrist RT min 3V* RIGHT WRIST - 4 views [facility] Other XR wrist RT min 3V* CLINICAL HISTORY: Right distal radius fracture ORIF. Follow-up [facility] Other XR wrist RT min 3V* COMPARISON: Right wrist 04/30/2022 [facility] Other XR wrist RT min 3V* FINDINGS: [facility] Other XR wrist RT min 3V* Cast material is now been removed. Bones are grossly demineralized. Hardware fixation involving [facility] Other XR wrist RT min 3V* the distal radius without evidence of hardware complication. No significant healing is seen since [facility] Other XR wrist RT min 3V* the prior study. Remote styloid process fracture involving the ulna. 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 Soft tissue swelling. [facility] Other XR wrist RT min 3V* XR/XR wrist RT min 3V* [facility] Other XR wrist RT min 3V* IMPRESSION: [facility] [employer] Other XR wrist RT min 3V* NO SIGNIFICANT WHELAN E IN DISTAL RADIUS FRACTURE FINDINGS COMPARED TO THE PRIOR STUDY. [facility] Other XR wrist RT min 3V* Impression dictated by: Kit Quinonez Jr., D.O.05/23/2022 3:50 PM [facility] Other XR wrist RT min 3V* Dictation Location: [place] [address] [facility] Other XR wrist RT min 3V* Transcribed By: PWS 05/23/22 1550 [facility] Other XR wrist RT min 3V* Dictated By: Kit Quinonez Jr DO 05/23/22 1548 [facility] Other XR wrist RT min 3V* Signed By: [facility] Other XR wrist RT min 3V* 05/23/22 1550 No [employer] Other Basic Metabolic Panelon 01-2 Anion gap [Moles/Vol] 16.4 mmol/L High 6.0-15.0 [facility] Comment on above: Performed By: #### C BC, BMP #### [facility] [address] Calcium [Mass/Vol] 9.5 mg/dL Normal 8.2-10.2 [facility] Comment on above: Performed By: #### C BC, BMP #### [facility] [address] Chloride [Moles/Vol] 98 mmol/L Normal 95-114 [facility] Comment on above: Performed By: #### C BC, BMP #### [facility] [address] CO2 [Moles/Vol] 24.1 mmol/L Normal 22.0-30.0 [facility] Comment on above: Performed By: #### C BC, BMP #### [address] Creatinine [Mass/Vol] 0.89 mg/dL Normal 0.44-1.03 [facility] Comment on above: Performed By: #### C BC, BMP #### [address] Creatinine Clr Calc Pharmacy 49.75 [facility] Comment on above: Result Comment: PERF ORMED BY: [place] [address] PATHOLOGIST FILTER OPERATOR ANDREA TIDWELL M.D. Performed By: #### C BC, BMP #### [address] Estimated GFR ( Samantha > 60 [facility] Comment on above: Result Comment: GFR estimated reference range: According to KDOQI guidelines, <60 ml/min/1.73m2 is sufficient to diagnose a patient with chronic kidney disease. Performed By: #### C BC, BMP #### [place] [address] [place] Estimated GFR (Non- Am > 60 [facility] Comment on above: Performed By: #### C BC, BMP #### [facility] [address] Glucose [Mass/Vol] 108 mg/dL High 70-100 [facility] Comment on above: Result Comment: [facility] [place] Glucose Reference Range is dependent on time and content of last meal. Glucose of more than 200 mg/dL in a nonstressed, ambulatory subject supports the diagnosis of Diabetes Mellitus. ADA recommended reference range Performed By: #### C BC, BMP #### [facility] [address] Potassium [Moles/Vol] 3.5 mmol/L Normal 3.5-5.1 [facility] Comment on above: Performed By: #### C BC, BMP #### [facility] [address] Sodium [Moles/Vol] 135 mmol/L Low 136-146 [facility] Comment on above: Performed By: #### C BC, BMP #### [facility] [address] Urea nitrogen [Mass/Vol] 17 mg/dL Normal 9-23 [facility] Comment on above: Performed By: #### C BC, BMP #### [facility] [address] [place] [address] [place] Basophils Auto (Bld) [#/Vol] Ordered By: ARIANNE PURDY on 04-30-2022 Basophils (Bld) [#/Vol] 0.0 10*3/uL 0.0-0.2 [facility] Basophils/100 WBC Auto (Bld) Ordered By: ARIANNE PURDY on 04-30-2022 Basophils/100 WBC (Bld) 0.2 % . [facility] Complete Blood Count Auto Di ffon 04-30-2022 Basophils (Bld) [#/Vol] 0.0 10*3/uL Normal 0.0-0.2 [facility] Comment on above: Result Comment: PERF ORMED BY: [place] [address] PATHOLOGIST FILTER OPERATOR ANDREA TIDWELL M.D. Performed By: #### C BC, BMP #### [facility] [address] [place] [address] [place] Basophils/100 WBC (Bld) 0.2 % Normal . [facility] Comment on above: Performed By: #### C BC, BMP #### [facility] [address] [place] [address] [place] Eosinophils (Bld) [#/Vol] 0.1 10*3/uL Normal 0.0-0.45 [facility] Comment on above: Performed By: #### C BC, BMP #### [facility] [address] [place] [address] [place] Eosinophils/100 WBC (Bld) 1.1 % Normal . [facility] Comment on above: Performed By: #### C BC, BMP #### [address] Erythrocyte distribution width (RBC) [Ratio] 14.9 % Normal 11.9-15.3 [facility] Comment on above: Performed By: #### C BC, BMP #### [facility] [address] [place] [address] [place] Hematocrit (Bld) [Volume fraction] 36.4 % Normal 34.0-46.4 [facility] Comment on above: Performed By: #### C BC, BMP #### [facility] [address] [place] [address] [place] Hemoglobin (Bld) [Mass/Vol] 12.1 g/dL Normal 11.8-15.4 [facility] Comment on above: Performed By: #### C BC, BMP #### [facility] [address] [place] [address] [place] Lymphocytes (Bld) [#/Vol] 1.2 10*3/uL Normal 1.00-4.8 [facility] Comment on above: Performed By: #### C BC, BMP #### [facility] [address] [place] [address] [place] Lymphocytes/100 WBC (Bld) 16.1 % Normal . [facility] Comment on above: Performed By: #### C BC, BMP #### [facility] [address] MCH (RBC) [Entitic mass] 28.2 pg Normal 24.7-34.3 [facility] Comment on above: Performed By: #### C BC, BMP #### [facility] [address] MCV (RBC) [Entitic vol] 85.0 fL Normal 80-100 [facility] Comment on above: Performed By: #### C BC, BMP #### [facility] [address] Mean Corpuscular HGB Conc 33.2 g/dL Normal 32.0-35.0 [facility] Comment on above: Performed By: #### C BC, BMP #### [address] Monocytes (Bld) [#/Vol] 0.6 10*3/uL Normal 0.0-0.8 [facility] Comment on above: Performed By: #### C BC, BMP #### [place] [address] [place] Monocytes/100 WBC (Bld) 8.4 % Normal . [facility] Comment on above: Performed By: #### C BC, BMP #### [address] Neutrophils (Bld) [#/Vol] 5.6 10*3/uL Normal 1.8-7.7 [facility] Comment on above: Performed By: #### C BC, BMP #### [facility] [address] [place] [address] [place] Neutrophils/100 WBC (Bld) 74.2 % Normal . [facility] Comment on above: Performed By: #### C BC, BMP #### [address] NRBC% 0.1 /100{WBC} Normal 0-0.5 [facility] Comment on above: Performed By: #### C BC, BMP #### [address] [place] [address] [place] Platelet mean volume (Bld) [Entitic vol] 8.4 fL Normal 6.3-10.7 [facility] Comment on above: Performed By: #### C ANDREW, BMP #### [facility] [address] [place] [address] [place] Platelets (Bld) [#/Vol] 101 10*3/uL Low 150-450 [facility] Comment on above: Performed By: #### C ANDREW, BMP #### [facility] [address] RBC (Bld) [#/Vol] 4.28 10*6/uL Normal 3.60-5.00 [facility] Comment on above: Performed By: #### C ANDREW, BMP #### [facility] [address] WBC (Bld) [#/Vol] 7.6 10*3/uL Normal 3.8-11.6 [facility] Comment on above: Performed By: #### C ANDREW, BMP #### [facility] [address] [place] [address] [place] Creatinine and Glomerular fi ltration rate.predicted panel (S/P/Bld)Ordered By: ARIANNE PURDY on 04-30-2022 Creatinine [Mass/Vol] 0.89 mg/dL 0.44-1.03 [facility] ECG 12 lead ECGon 04-30-2022 ECG 12 lead ECG [facility] [place] [address] [place] [address] Electrocardiograph Report Signed Patient: Ellen Chan MR#: [id number] 1 : 1945 Acct:[id number] Age/Sex: 77 / F ADM Date: 04/30/22 Loc: [place] Room: Type: [facility] Attending Dr: Kate Mane MD Ordering Provider: [...] previous ECGs available Confirmed by [id number] on 05/01/2022 5:11:40 PM Referred By: Electronically Signed By:EDITH GARCIA MD [facility] Transcribed By: MUS Signed By Camacho Garcia MD 05/01/22 1711 Normal [facility] Eosinophils Auto (Bld) [#/Vo l]Ordered By: ARIANNE PURDY on 04-30-2022 Eosinophils (Bld) [#/Vol] 0.1 10*3/uL 0.0-0.45 [facility] Eosinophils/100 WBC Auto (Bl d)Ordered By: ARIANNE PURDY on 04-30-2022 Eosinophils/100 WBC (Bld) 1.1 % . [facility] Erythrocyte distribution wid th Auto (RBC) [Ratio]Ordered By: ARIANNE PURDY on 04-30-2022 Erythrocyte distribution width (RBC) [Ratio] 14.9 % 11.9-15.3 [facility] Estimated glomerular filtrat ion rate (GFR) non- AmericanOrdered By: ARIANNE PURDY on 04-30-2022 GFR/1.73 sq M.predicted among non-blacks MDRD (S/P/Bld) [Vol rate/Area] > 60 mL/Min [facility] Hematocrit Auto (Bld) [Volum e fraction]Ordered By: ARIANNE PURDY on 04-30-2022 Hematocrit (Bld) [Volume fraction] 36.4 % 34.0-46.4 [facility] Hemoglobin [Mass/volume] in BloodOrdered By: ARIANNE PURDY on 04-30-2022 Hemoglobin (Bld) [Mass/Vol] 12.1 g/dL 11.8-15.4 [facility] Leukocytes [#/volume] correc roxane for nucleated erythrocytes in Blood by Automated counOrdered By: ARIANNE PURDY on 04-30-2022 WBC corrected for nucl RBC Auto (Bld) [#/Vol] 7.6 10*3/uL 3.8-11.6 [facility] Lymphocytes Auto (Bld) [#/Vo l]Ordered By: ARIANNE PURDY on 04-30-2022 Lymphocytes (Bld) [#/Vol] 1.2 10*3/uL 1.00-4.8 [facility] Lymphocytes/100 WBC Auto (Bl d)Ordered By: ARIANNE PURDY on 04-30-2022 Lymphocytes/100 WBC (Bld) 16.1 % . [facility] MCH Auto (RBC) [Entitic mass ]Ordered By: ARIANNE PURDY on 04-30-2022 MCH (RBC) [Entitic mass] 28.2 pg 24.7-34.3 [facility] MCHC Auto (RBC) [Mass/Vol]Or dered By: ARIANNE PURDY on 04-30-2022 MCHC (RBC) [Mass/Vol] 33.2 g/dL 32.0-35.0 [facility] MCV Auto (RBC) [Entitic vol] Ordered By: ARIANNE PURDY on 04-30-2022 MCV (RBC) [Entitic vol] 85.0 fL 80-100 [facility] Monocytes Auto (Bld) [#/Vol] Ordered By: ARIANNE PURDY on 04-30-2022 Monocytes (Bld) [#/Vol] 0.6 10*3/uL 0.0-0.8 [facility] Monocytes/100 WBC Auto (Bld) Ordered By: ARIANNE PURDY on 04-30-2022 Monocytes/100 WBC (Bld) 8.4 % . [facility] Neutrophils Auto (Bld) [#/Vo l]Ordered By: ARIANNE PURDY on 04-30-2022 Neutrophils (Bld) [#/Vol] 5.6 10*3/uL 1.8-7.7 [facility] Neutrophils/100 WBC Auto (Bl d)Ordered By: ARIANNE PURDY on 04-30-2022 Neutrophils/100 WBC (Bld) 74.2 % . [facility] No Panel InformationOrdered By: ARIANNE PURDY on 04-30-2022 Estimated GFR () > 60 mL/Min [facility] Comment on above: GFR estimated refere nce range: According to KDOQI guidelines, <60 ml/min/1.73m2 is sufficient to diagnose a patient with chronic kidney disease. Pharmacy Creatinine Clearance (Chem 49.75 [facility] Nucleated erythrocytes [Pres ence] in Blood by Automated countOrdered By: ARIANNE PURDY on 04-30-2022 Nucleated RBC Auto Ql (Bld) 0.1 /100{WBC} 0-0.5 [facility] Platelet mean volume Auto (B ld) [Entitic vol]Ordered By: ARIANNE PURDY on 04-30-2022 Platelet mean volume (Bld) [Entitic vol] 8.4 fL 6.3-10.7 [facility] Platelets Auto (Bld) [#/Vol] Ordered By: ARIANNE PURDY on 04-30-2022 Platelets (Bld) [#/Vol] 101 10*3/uL 150-450 [facility] RBC Auto (Bld) [#/Vol]Ordere d By: ARIANNE PURDY on 04-30-2022 RBC (Bld) [#/Vol] 4.28 10*6/uL 3.60-5.00 [facility] Serum or plasma anion gap de terminationOrdered By: ARIANNE PURDY on 04-30-2022 Anion gap [Moles/Vol] 16.4 mmol/L 6.0-15.0 [facility] Serum or plasma calcium nicky urement (mass/volume)Ordered By: ARIANNE PURDY on 04-30-2022 Calcium [Mass/Vol] 9.5 mg/dL 8.2-10.2 [facility] Serum or plasma chloride maged surement (moles/volume)Ordered By: ARIANNE PURDY on 04-30-2022 Chloride [Moles/Vol] 98 mmol/L 95-114 [facility] Serum or plasma glucose nicky urement (mass/volume)Ordered By: ARIANNE PURDY on 04-30-2022 Glucose [Mass/Vol] 108 mg/dL 70-100 [facility] Comment on above: ADA recommended refe rence rangeRandom Glucose Reference Range is dependent on time and content of last meal. Glucose of more than 200 mg/dL in a nonstressed, ambulatory subject supports the diagnosis of Diabetes Mellitus. Serum or plasma potassium me asurement (moles/volume)Ordered By: ARIANNE PURDY on 04-30-2022 Potassium [Moles/Vol] 3.5 mmol/L 3.5-5.1 [facility] Serum or plasma sodium measu rement (moles/volume)Ordered By: ARIANNE PURDY on 04-30-2022 Sodium [Moles/Vol] 135 mmol/L 136-146 [facility] Serum or plasma total carbon dioxide measurement (moles/volume)Ordered By: ARIANNE PURDY on 04-30-2022 CO2 [Moles/Vol] 24.1 mmol/L 22.0-30.0 [facility] Serum or plasma urea nitroge n measurement (mass/volume)Ordered By: ARIANNE PURDY on 04-30-2022 Urea nitrogen [Mass/Vol] 17 mg/dL 12-29 [facility] WBC Auto (Bld) [#/Vol]Ordere d By: ARIANNE PURDY on 04-30-2022 WBC (Bld) [#/Vol] 7.6 10*3/uL 3.8-11.6 [facility] XR wrist RT min 3V*on 2022 XR wrist RT min 3V* [facility] [place] [address] XRay Report Signed Patient: Ellen Chan MR#: [id number] 1 : 1945 Acct:[id number] Age/Sex: 77 / F ADM Date: 04/30/22 Loc: [place] Room: Type: [facility] Attending Dr: Kate Mane MD Copies to: Kate aMne MD Ordering Provider: Kate Mane MD Date [...] Quinonez Jr., D.O.04/30/2022 4:36 PM Dictation Location: [place] [address] Transcribed By: [facility] 04/30/22 9563 Dictated By: Kit Quinonez Jr, DO 04/30/22 1635 Signed By: 04/30/22 1636 Normal [facility] CBC AUTO DIFFon 04-27-2022 BASO # 0.0 103/ul Normal 0.0-0.1 [facility] Comment on above: Performed By: #### C BC #### [facility] [address] [place] [address] Dr. Sangita Whelan Basophils/100 WBC (Bld) 0.2 % Normal 0.2-2.0 [facility] Comment on above: Performed By: #### C BC #### [facility] [address] [place] [address] Dr. Sangita Whelan EO # 0.1 103/ul Normal 0.0-0.7 [facility] Comment on above: Performed By: #### C BC #### [facility] [address] [place] [address] Dr. Sangita Whelan Eosinophils/100 WBC (Bld) 0.7 % Critically low 0.9-7.0 [facility] Comment on above: Performed By: #### C BC #### [facility] [address] [place] [address] Dr. Sangita Whelan Erythrocyte distribution width (RBC) [Ratio] 14.3 % Normal 11.0-15.0 [facility] Comment on above: Performed By: #### C BC #### [facility] [address] [place] [address] Dr. Sangita Whelan Hematocrit (Bld) [Volume fraction] 33.1 % Critically low 36.0-48.0 [facility] Comment on above: Performed By: #### C BC #### [facility] [address] [place] [address] Dr. Sangita Whelan Hemoglobin (Bld) [Mass/Vol] 12.1 g/dL Normal 12.0-16.0 [facility] Comment on above: Performed By: #### C BC #### [facility] [address] [place] [address] Dr. Sangita Whelan IG # 0.04 10e3/ul Critically high 0.00-0.03 [facility] Comment on above: Performed By: #### C BC #### [facility] [address] [place] [address] [address] Sangita Whelan IG % 0.5 % Normal 0.0-0.5 [facility] Comment on above: Performed By: #### C BC #### [facility] [address] [place] [address] Dr. Sangita Whelan LYMPH # 1.5 103/ul Normal 1.2-3.8 [facility] Comment on above: Performed By: #### C BC #### [facility] [address] [place] [address] Dr. Sangita Whelan Lymphocytes/100 WBC (Bld) 17.1 % Critically low 20.5-60.0 [facility] Comment on above: Performed By: #### C BC #### [facility] [address] [place] [address] Dr. Sangita Whelan MANUAL DIFF REQ NO Normal [facility] Comment on above: Performed By: #### C BC #### [facility] [address] [place] [address] Dr. Sangita Whelan MCH (RBC) [Entitic mass] 28.7 pg Normal 26.7-34.0 [facility] Comment on above: Performed By: #### C BC #### [facility] [address] [place] [address] Dr. Sangita Whelan MCHC (RBC) [Mass/Vol] 36.6 g/dL Critically high 29.9-35.2 [facility] Comment on above: Performed By: #### C BC #### [facility] [address] [place] [address] Dr. Sangita Whelan MCV (RBC) [Entitic vol] 78.4 fL Critically low 81.0-99. 0 [facility] Comment on above: Performed By: #### C BC #### [facility] [address] [place] [address] Dr. Sangita Whelan MONO # 0.6 103/ul Normal 0.3-0.8 [facility] Comment on above: Performed By: #### C BC #### [facility] [address] [place] [address] Dr. Sangita Whelan Monocytes/100 WBC (Bld) 6.6 % Normal 1.7-12.0 [facility] Comment on above: Performed By: #### C BC #### [facility] [address] [place] [address] Dr. Sangita Whelan NEUT # 6.5 103/ul Normal 1.4-6.5 [facility] Comment on above: Performed By: #### C BC #### [facility] [address] [place] [address] Dr. Sangita Whelan Neutrophils/100 WBC (Bld) 74.9 % Normal 43.0-75.0 [facility] Comment on above: Performed By: #### C BC #### [facility] [address] [place] [address] Dr. Sangita Whelan Platelet mean volume (Bld) [Entitic vol] 9.7 fL Normal 9.5-13.5 [facility] Comment on above: Performed By: #### C BC #### [facility] [address] [place] [address] Dr. Sangita Whelan PLT 99 103/ul Critically low 150-450 [facility] Comment on above: Performed By: #### C BC #### [facility] [address] [place] [address] Dr. Sangita Whelan RBC 4.22 106/ul Normal 4.20-5.40 [facility] Comment on above: Performed By: #### C BC #### [facility] [address] [place] [address] Dr. Sangita Whelan WBC 8.7 103/ul Normal 4.0-11.0 [facility] Comment on above: Performed By: #### C BC #### [facility] [address] [place] [address] Dr. Sangita Whelan PROF 14(COMP METB)on 023 Albumin [Mass/Vol] 3.3 g/dL Critically low 3.4-5.0 [facility] Comment on above: Performed By: #### C MP #### [facility] [address] [place] [address] Dr. Sangita Whelan Albumin/Globulin [Mass ratio] 0.9 {ratio} Normal [facility] Comment on above: Performed By: #### C MP #### [facility] [address] [place] [address] Dr. Sangtia Whelan ALP [Catalytic activity/Vol] 76 U/L Normal 46-116 [facility] Comment on above: Performed By: #### C MP #### [facility] [address] [place] [address] Dr. Sangita Whelan ALT [Catalytic activity/Vol] 21 U/L Normal 14-59 [facility] Comment on above: Performed By: #### C MP #### [facility] [address] [place] [address] Dr. Sangita Whelan Anion gap [Moles/Vol] 9.5 mmol/L Normal [facility] Comment on above: Performed By: #### C MP #### [facility] [address] [place] [address] Dr. Sangita Whelan AST [Catalytic activity/Vol] 18 U/L Normal 15-37 [facility] Comment on above: Performed By: #### C MP #### [facility] [address] [place] [address] Dr. Sangita Whelan Bilirubin [Mass/Vol] 0.3 mg/dL Normal 0.2-1.0 [facility] Comment on above: Performed By: #### C MP #### [facility] [address] [place] [address] Dr. Sangita Whelan Calcium [Mass/Vol] 9.0 mg/dL Normal 8.5-10.1 [facility] Comment on above: Performed By: #### C MP #### [facility] [address] [place] [address] Dr. Sangita Whelan Chloride [Moles/Vol] 104 mmol/L Normal 98-107 [facility] Comment on above: Performed By: #### C MP #### [facility] [address] [place] [address] Dr. Sangita Whelan CO2 [Moles/Vol] 30.3 mmol/L Normal 21.0-32.0 [facility] Comment on above: Performed By: #### C MP #### [facility] [address] [place] [address] [address] Sangita Whelan Creatinine [Mass/Vol] 0.85 mg/dL Normal 0.55-1.02 [facility] Comment on above: Performed By: #### C MP #### [facility] [address] [place] [address] [address] Sangita Whelan EGFR-AF EMIRATI >60 Normal >=60 [facility] Comment on above: Performed By: #### C MP #### [facility] [address] [place] [address] [address] Sangita Whelan EGFR-NON AF EMIRATI >60 Normal >=60 [facility] Comment on above: Performed By: #### C MP #### [facility] [address] [place] [address] [address] Sangita Whelan Globulin (S) [Mass/Vol] 3.7 g/dL Normal [facility] Comment on above: Performed By: #### C MP #### [facility] [address] [place] [address] [address] Sangita hWelan Glucose [Mass/Vol] 87 mg/dL Normal 74-106 [facility] Comment on above: Performed By: #### C MP #### [facility] [address] [place] [address] [address] Sangita Whelan Potassium [Moles/Vol] 3.8 mmol/L Normal 3.5-5.1 [facility] Comment on above: Performed By: #### C MP #### [facility] [address] [place] [address] [address] Sangita Whelan Protein [Mass/Vol] 7.0 g/dL Normal 6.4-8.2 [facility] Comment on above: Performed By: #### C MP #### [facility] [address] [place] [address] [address] Sangita Whelan Sodium [Moles/Vol] 140 mmol/L Normal 136-145 [facility] Comment on above: Performed By: #### C MP #### [facility] [address] [place], [place] [address] Dr. Sangita Whlean Urea nitrogen [Mass/Vol] 16.0 mg/dL Normal 7.0-18.0 [facility] Comment on above: Performed By: #### C MP #### [facility] [address] [place], [place] [address] Dr. Sangita Whelan Urea nitrogen/Creatinine [Mass ratio] 18.8 mg/mg Normal [facility] Comment on above: Performed By: #### C MP #### [facility] [address] [place], [place] [address] Dr. Sangita Whelan XR FOREARM RT 2Von [...] by: CARO CAICEDO Date: 2022-04-27 10:42 Normal [facility] MAMM SCREEN 3D GENO CADon 04-25-2022 MG MAMM SCREEN 3D GENO CAD Patient: ELLEN CHAN Exam Date: 04/25/2022 : 1945 Gender:F Ordering : DR NITHYA BROWN M.D. Admission #: [id number] Family : Order #: [id number] CLICK HERE TO VIEW EXAM RADIOLOGY REPORT [...] No Treatments None Family Cancers None LOCATION: [facility] BREAST COMPOSITION: Heterogeneously dense,which may obscure small [...] Palma MD on 04/25/2022 at 12:32 Normal [facility] Referrals Officeon 3 Referrals Office [id number] [phone] [id number] Appointment for 05/14/2022 @ 930 Normal [facility] XR LSPINE 2_3 VIEWSon 2022 XR [...] by: ARIANNE PALMA Date: 2022-04-16 15:12 Normal [facility] CTA CHEST WO W CONon 04-28-2 022 CTA CHEST WO W CON EXAMINATION: [...] by: ANTOLIN VALLADARES Date: 2021-08-03 10:44 Normal [facility] Operative Reporton 2 Operative Report MR#: [id number] [facility] Pt. Name: Ellen Chan Room #: REC [...] A/Leon Badillo MD Date Trans: 07/25/2021 11:33 A/mecca [id number] Normal [facility] BASIC METABOLIC PANELon 04-0 Calcium [Mass/Vol] 8.4 mg/dL Low 8.6-10.3 [facility] Comment on above: Order Comment: No: D o not add to previous draw Performed By: #### 1 69, 08471 #### [facility] [address] [address], [facility] Chloride [Moles/Vol] 105 mmol/L Normal 98-107 [facility] Comment on above: Order Comment: No: D o not add to previous draw Performed By: #### 1 69, 62315 #### [facility] [address] [place] [address], [place] CO2 [Moles/Vol] 25 mmol/L Normal 21-31 [facility] Comment on above: Order Comment: No: D o not add to previous draw Performed By: #### 1 69, 05659 #### [facility] [address] [place] [id number], [facility] Creatinine [Mass/Vol] 0.60 mg/dL Normal 0.60-1.20 [facility] Comment on above: Order Comment: No: D o not add to previous draw Performed By: #### 1 69, 86824 #### [facility] [address] [place] [address], [place] GFR/1.73 sq M.predicted among blacks MDRD (S/P/Bld) [Vol rate/Area] mL/min/{1.73_m2} Normal >60 [facility] Comment on above: Order Comment: No: D o not add to previous draw Result Comment: Calc ulation may not be valid for patients over 70 years Performed By: #### 1 69, 62248 #### [facility] [address] [place] [address], [place] GFR/1.73 sq M.predicted among non-blacks MDRD (S/P/Bld) [Vol rate/Area] mL/min/{1.73_m2} Normal >60 [facility] Comment on above: Order Comment: No: D o not add to previous draw Result Comment: Calc ulation may not be valid for patients over 70 years Performed By: #### 1 69, 05704 #### [facility] [address] [place] [address], [place] Glucose [Mass/Vol] 92 mg/dL Normal 70-100 [facility] Comment on above: Order Comment: No: D o not add to previous draw Performed By: #### 1 69, 31735 #### [facility] [address] [place] [address], [place] Potassium [Moles/Vol] 3.7 mmol/L Normal 3.5-5.1 [facility] Comment on above: Order Comment: No: D o not add to previous draw Performed By: #### 1 69, 98067 #### [facility] [address] [place] [address], [place] Sodium [Moles/Vol] 138 mmol/L Normal 136-145 [facility] Comment on above: Order Comment: No: D o not add to previous draw Performed By: #### 1 69, 15738 #### [facility] [address] Urea nitrogen [Mass/Vol] 11 mg/dL Normal 7-25 [facility] Comment on above: Order Comment: No: D o not add to previous draw Performed By: #### 1 0070, 36702 #### [facility] [address] [place] [id number], [facility] CBC COMPLETE BLOOD COUNTon 0 07-13-2021 Erythrocyte distribution width (RBC) [Ratio] 14.5 % Normal 11.5-15.0 [facility] Comment on above: Order Comment: No: D o not add to previous draw Performed By: #### 3 0739 #### [facility] [address] [place] [address], [facility] Hematocrit (Bld) [Volume fraction] 33.7 % Low 36.0-45.0 [facility] Comment on above: Order Comment: No: D o not add to previous draw Performed By: #### 3 0739 #### [facility] [address] [place] [id number], [facility] Hemoglobin (Bld) [Mass/Vol] 11.5 g/dL Low 12.0-15.0 [facility] Comment on above: Order Comment: No: D o not add to previous draw Performed By: #### 3 0739 #### [facility] [address] [place] [address], [facility] IMM PLATELET FRAC 3.4 % Normal 0.8-6.3 [facility] Comment on above: Order Comment: No: D o not add to previous draw Performed By: #### 3 0739 #### [facility] [address] [place] [id number], [facility] MCH (RBC) [Entitic mass] 28.7 pg Normal 27.0-33.0 [facility] Comment on above: Order Comment: No: D o not add to previous draw Performed By: #### 3 0739 #### [facility] [address] [place] [address], [facility] MCHC (RBC) [Mass/Vol] 34.1 g/dL Normal 32.0-35.0 [facility] Comment on above: Order Comment: No: D o not add to previous draw Performed By: #### 3 0739 #### [facility] [address] [place] [id number], [facility] MCV (RBC) [Entitic vol] 84.0 fL Normal 82.0-98.0 T [facility] Comment on above: Order Comment: No: D o not add to previous draw Performed By: #### 3 0739 #### [facility] [address] [place] [address], [facility] Nucleated RBC/100 WBC (Bld) [Ratio] 0 % Normal 0-0 [facility] Comment on above: Order Comment: No: D o not add to previous draw Performed By: #### 3 0739 #### [facility] [address] [place] [address], [facility] PLAT CNT 91 10*3/uL Low 150-400 [facility] Comment on above: Order Comment: No: D o not add to previous draw Performed By: #### 3 0739 #### [facility] [address] [place] [id number], [facility] RBC (Bld) [#/Vol] 4.01 10*6/uL Normal 3.80-5.00 [facility] Comment on above: Order Comment: No: D o not add to previous draw Performed By: #### 3 0739 #### [facility] [address] [place] [id number], [facility] WBC (Bld) [#/Vol] 7.44 10*3/uL Normal 4.00-10.60 [facility] Comment on above: Order Comment: No: D o not add to previous draw Performed By: #### 3 0739 #### [facility] [address] [place] [address], [facility] MAGNESIUM BLOODon 07-13-2021 Magnesium [Mass/Vol] 1.8 mg/dL Low 1.9-2.7 [facility] Comment on above: Order Comment: No: D o not add to previous draw Performed By: #### 1 0070, [id number] #### [facility] [address] [place] [address], [place] ACTIVATED CLOTTING TIMEon ACTIVATED CLOTTING TIME 132 sec Normal 82-152 T [facility] Comment on above: Performed By: #### 3 0739 #### [facility] [address] [place] [address], [place] ACTIVATED CLOTTING TIME 272 sec High 82-152 T [facility] Comment on above: Performed By: #### 3 0739 #### [facility] [address] [place] [address], [facility] ACTIVATED CLOTTING TIME 138 sec Normal 82-152 T [facility] Comment on above: Performed By: #### 3 0739 #### [facility] [address] [place] [address], [facility] BASIC METABOLIC PANELon Calcium [Mass/Vol] 8.6 mg/dL Normal 8.6-10.3 [facility] Comment on above: Order Comment: No: D o not add to previous draw Performed By: #### 0 0071, 94902 #### [facility] [address] [place] [address], [place] Chloride [Moles/Vol] 105 mmol/L Normal 98-107 [facility] Comment on above: Order Comment: No: D o not add to previous draw Performed By: #### 0 0071, 71892 #### [facility] [address] [place] [address], [place] CO2 [Moles/Vol] 27 mmol/L Normal 21-31 [facility] Comment on above: Order Comment: No: D o not add to previous draw Performed By: #### 0 0071, 11963 #### [facility] [address] [place] [address], [place] Creatinine [Mass/Vol] 0.64 mg/dL Normal 0.60-1.20 [facility] Comment on above: Order Comment: No: D o not add to previous draw Performed By: #### 0 0071, 13403 #### [facility] [address] [place] [address], [place] GFR/1.73 sq M.predicted among blacks MDRD (S/P/Bld) [Vol rate/Area] mL/min/{1.73_m2} Normal >60 [facility] Comment on above: Order Comment: No: D o not add to previous draw Result Comment: Calc ulation may not be valid for patients over 70 years Performed By: #### 0 [id number], [id number] #### [facility] [address] [place] [address], [place] GFR/1.73 sq M.predicted among non-blacks MDRD (S/P/Bld) [Vol rate/Area] mL/min/{1.73_m2} Normal >60 [facility] Comment on above: Order Comment: No: D o not add to previous draw Result Comment: Calc ulation may not be valid for patients over 70 years Performed By: #### 0 0071, [id number] #### [facility] [address] [place] [address], [place] Glucose [Mass/Vol] 108 mg/dL High 70-100 [facility] Comment on above: Order Comment: No: D o not add to previous draw Performed By: #### 0 0071, [id number] #### [facility] [address] [place] [address], [place] Potassium [Moles/Vol] 3.4 mmol/L Low 3.5-5.1 [facility] Comment on above: Order Comment: No: D o not add to previous draw Performed By: #### 0 0071, [id number] #### [facility] [address] [place] [address], [facility] Sodium [Moles/Vol] 139 mmol/L Normal 136-145 [facility] Comment on above: Order Comment: No: D o not add to previous draw Performed By: #### 0 0071, [id number] #### [facility] [address] Urea nitrogen [Mass/Vol] 15 mg/dL Normal 7-25 [facility] Comment on above: Order Comment: No: D o not add to previous draw Performed By: #### 0 0071, [id number] #### [facility] [address] CBC W/DIFFon 07-12-2021 ABS IMM GRANS 0.0 10*3/uL Normal 0.0-0.2 The [facility] Comment on above: Performed By: #### 3 0739 #### [facility] [address] ABS NEUTROPHILS 3.9 10*3/uL Normal 1.6-7.6 [facility] Comment on above: Performed By: #### 3 0739 #### [facility] [address] [place] [address], [facility] Basophils (Bld) [#/Vol] 0.0 10*3/uL Normal 0.0-0.2 [facility] Comment on above: Performed By: #### 3 0739 #### [facility] [address] [place] [address], [facility] Basophils/100 WBC (Bld) 0.2 % Normal 0.0-1.0 T [facility] Comment on above: Performed By: #### 3 0739 #### [facility] 3000 [place] [address], [place] Eosinophils (Bld) [#/Vol] 0.1 10*3/uL Normal 0.0-0.5 [facility] Comment on above: Performed By: #### 3 0739 #### [facility] [address] [place] [address], [facility] Eosinophils/100 WBC (Bld) 1.8 % Normal 0.0-6.0 [facility] Comment on above: Performed By: #### 3 0739 #### [facility] 3000 [facility]. [address] Erythrocyte distribution width (RBC) [Ratio] 14.4 % Normal 11.5-15.0 [facility] Comment on above: Performed By: #### 3 0739 #### [facility] [address] Hematocrit (Bld) [Volume fraction] 36.7 % Normal 36.0-45.0 [facility] Comment on above: Performed By: #### 3 0739 #### [facility] 3000 [facility] [place] [address], [facility] Hemoglobin (Bld) [Mass/Vol] 12.1 g/dL Normal 12.0-15.0 [facility] Comment on above: Performed By: #### 3 0739 #### [facility] [address] [facility] [place] [address], [facility] IMM PLATELET FRAC 3.5 % Normal 0.8-6.3 [facility] Comment on above: Performed By: #### 3 0739 #### [facility] [address] [facility] [place] [address], [facility] IMMATURE GRANS 0.6 % Normal 0.0-1.0 The [facility] Comment on above: Performed By: #### 3 0739 #### [facility] [address] [facility] [place] [address], [facility] Lymphocytes (Bld) [#/Vol] 1.1 10*3/uL Low 1.2-4.0 [facility] Comment on above: Performed By: #### 3 0739 #### [facility] [address] [facility] [place] [place] [address], [facility] Lymphocytes/100 WBC (Bld) 19.8 % Low 20.0-45.0 [facility] Comment on above: Performed By: #### 3 0739 #### [facility] [address] [facility] [place] [address], [facility] MCH (RBC) [Entitic mass] 28.5 pg Normal 27.0-33.0 [facility] Comment on above: Performed By: #### 3 0739 #### [facility] 3000 [facility]. [address] MCHC (RBC) [Mass/Vol] 33.0 g/dL Normal 32.0-35.0 [facility] Comment on above: Performed By: #### 3 0739 #### [facility] [address] [facility] [place] [address], [facility] MCV (RBC) [Entitic vol] 86.6 fL Normal 82.0-98.0 T [facility] Comment on above: Performed By: #### 3 0739 #### [facility] [address] [facility] [place] [address], [facility] Monocytes (Bld) [#/Vol] 0.4 10*3/uL Normal 0.1-1.0 [facility] Comment on above: Performed By: #### 3 0739 #### [facility] [address] [place] [address], [facility] MONOS 6.4 % Normal 5.0-12.0 [facility] Comment on above: Performed By: #### 3 0739 #### [facility] [address] [facility] [address], [place] Neutrophils/100 WBC (Bld) 71.2 % Normal 40.0-72.0 [facility] Comment on above: Performed By: #### 3 0739 #### [facility] [address] [facility] [place] [address], [facility] Nucleated RBC/100 WBC (Bld) [Ratio] 0 % Normal 0-0 [facility] Comment on above: Performed By: #### 3 0739 #### [facility] [address] [facility] [place] [address], [facility] PLAT CNT 96 10*3/uL Low 150-400 [facility] Comment on above: Performed By: #### 3 0739 #### [facility] [address] [place] [address], [facility] RBC (Bld) [#/Vol] 4.24 10*6/uL Normal 3.80-5.00 The [facility] Comment on above: Performed By: #### 3 0739 #### [facility] [address] [place] [address], [facility] WBC (Bld) [#/Vol] 5.45 10*3/uL Normal 4.00-10.60 [facility] Comment on above: Performed By: #### 3 0739 #### [facility] [address] [place] [address], [facility] MAGNESIUM BLOODon 07-12-2021 Magnesium [Mass/Vol] 1.6 mg/dL Low 1.9-2.7 [facility] Comment on above: Order Comment: No: D o not add to previous draw Performed By: #### 0 0071, [id number] #### [facility] [address] [place] [address], [facility] PLATELET FUNCTION SCREENon 0 07-12-2021 COLLAGEN/ADP 87 sec Normal 56-110 The [facility] Comment on above: Order Comment: [...] warranted. Performed By: #### 8 [id number] #### [facility] [address] [place] [address], [facility] COLLAGEN/EPINEPHRINE 218 sec High 82-159 [facility] Comment on above: Order Comment: No: D o not add to previous draw Performed By: #### 8 [id number] #### [facility] [address] [facility] [place] [address], [facility] POC GLUCOSE LABon 07-12-2021 Glucose [Mass/Vol] 99 mg/dL Normal 70-100 The [facility] Comment on above: Performed By: #### 3 0739 #### [facility] [address] [facility] [place] [address], [facility] Glucose [Mass/Vol] 103 mg/dL High 70-100 The [facility] Comment on above: Performed By: #### 3 0739 #### [facility] [address] [facility] [place] [address], [facility] US LILIANA DOP LEG LTon 06-07-19 US [...] by: ANTOLIN VALLADARES Date: 2021-06-06 11:20 Normal [facility] CTA ABDOMEN AND PELVISon CTA ABDOMEN AND PELVIS [facility] Department of Radiology [address] [place] [id number] ======== Patient Name: ELLEN CHAN : [...] stenosis. Electronically signed: Rajan Mtz. Transcribed by: [email or web address], User Resident: Electronically Signed by: RAJAN MTZ @ 04/27/2021 01:22 PM Normal [facility] CTA CHESTon 04-26-2021 CTA CHEST [facility] Department of Radiology [address] [place] [phone] ======== Patient Name: ELLEN CHAN : 1945 Sex: F Age: Race: White Pt. Location: Patient Status: D Ordered Date: 03/09/2021 11:05:00 AM Completed Date: 04/26/2021 10:27 AM Requesting Provider: LEON BADILLO Attending Provider: LEON BADILLO Report Copy To: NITHYA BROWN Signs & Symptoms: I71.2 Thoracic aortic aneurysm, without rupture I10 History: [place] patient will need labs has 2 ct's [...] identified. Electronically signed: Rajan Mtz. Transcribed by: [email or web address], User Resident: Electronically Signed by: RAJAN Wilfred MTZ @ 04/27/2021 12:48 PM Normal [facility] Vital Signs Date Time Vital Sign Value Performing Clinician Facility 04-17-2023 07:27-0500 Body temperature 97.9 [degF] Willard Krueger MD Work Phone: [facility] 04-17-2023 07:27-0500 Diastolic blood pressure 93 mm[Hg] Willard Krueger MD Work Phone: [facility] 04-17-2023 07:27-0500 Heart rate 70 /min Willard Krueger MD Work Phone: [facility] 04-17-2023 07:27-0500 Respiratory rate 18 /min Willard Krueger MD Work Phone: [facility] 04-17-2023 07:27-0500 Systolic blood pressure 161 mm[Hg] Willard Krueger MD Work Phone: [facility] 04-17-2023 05:00-0500 Body mass index (BMI) [Ratio] 25.47 kg/m2 Willard Krueger MD Work Phone: [facility] 04-17-2023 05:00-0500 Body weight 67.3 kg Willard Krueger MD Work Phone: [facility] 04-16-2023 23:08-0500 SaO2% (BldA) [Mass fraction] 95 % Willard Krueger MD Work Phone: [facility] 04-07-2023 05:12-0500 SaO2% (BldA) [Mass fraction] 96 % WILLARD PATI [facility] Comment on above: Performed By: #### ABG ####[facility] ([id number])2[address] [place] [address] 04-07-2023 03:15-0500 Body temperature 98.6 [degF] Willard Krueger MD Work Phone: [facility] 04-07-2023 03:15-0500 SaO2% (BldA) [Mass fraction] 95.0 % Willard Krueger MD Work Phone: [facility] 04-07-2023 03:15-0500 SaO2% (BldA) [Mass fraction] 96 % Willard Krueger MD Work Phone: [facility] 04-06-2023 13:56-0500 SaO2% (BldA) [Mass fraction] 95 % WILLARD KRUEGER [facility] Comment on above: Performed By: #### ABG ####[facility] ([id number])2142 [place] [address] 04-06-2023 11:59-0500 Body temperature 98.6 [degF] Willard Krueger MD Work Phone: [facility] 04-06-2023 11:59-0500 SaO2% (BldA) [Mass fraction] 92.0 % Willard Krueger MD Work Phone: [facility] 04-06-2023 11:59-0500 SaO2% (BldA) [Mass fraction] 95 % Willard Krueger MD Work Phone: [facility] 04-01-2023 22:00-0500 Body height 162.6 cm Willard Krueger MD Work Phone: [facility] [employer] [facility] 10-02-2022 10:45-0400 Body height Kate Teresa Other [facility] Other 10-02-2022 10:45-0400 Body mass index (BMI) [Ratio] 26.77 kg/m2 Kate Mane Other [facility] Other 10-02-2022 10:45-0400 Body weight 70.76 kg Kate Mane Other [facility] Other 09-07-2022 09:30-0400 Body height Nithya Mellissa Other [facility] Other 09-07-2022 09:30-0400 Body mass index (BMI) [Ratio] 26.43 kg/m2 Nithya Brown Other [facility] Other 09-07-2022 09:30-0400 Body weight 69.85 kg Nithya Brown Other [facility] Other 09-07-2022 09:30-0400 Diastolic blood pressure 87 mm[Hg] Nithya Brown Other [facility] Other 09-07-2022 09:30-0400 Systolic blood pressure 132 mm[Hg] Nithya Brown Other [facility] Other 06-04-2022 10:46-0500 Diastolic blood pressure 87 mm[Hg] [facility] 06-04-2022 10:46-0500 Mean blood pressure 107 mm[Hg] [facility] 06-04-2022 10:46-0500 Systolic blood pressure 146 mm[Hg] [facility] 06-04-2022 10:32-0500 Blood Pressure Location [facility] 06-04-2022 10:32-0500 Diastolic blood pressure 88 mm[Hg] Leon [facility] 06-04-2022 10:32-0500 Heart rate 77 /min Leon Melgaran [facility] 06-04-2022 10:32-0500 SaO2% (BldA) [Mass fraction] 98 % [facility] 06-04-2022 10:32-0500 Systolic blood pressure 146 mm[Hg] Leon Badillo [facility] 04-30-2022 17:32-0500 Diastolic blood pressure 96 mm[Hg] MD Nithya Brown Work Phone: [facility] 04-30-2022 17:32-0500 Heart rate 85 /min MD Nithya Brown Work Phone: [facility] 04-30-2022 17:32-0500 Respiratory rate 16 /min MD Nithya Brown Work Phone: [facility] 04-30-2022 17:32-0500 SaO2% (BldA) [Mass fraction] 96 % MD Nithya Brown Work Phone: [facility] 04-30-2022 17:32-0500 Systolic blood pressure 147 mm[Hg] MD Nithya Brown Work Phone: [facility] 04-30-2022 17:17-0500 Inhaled oxygen flow rate 2 L/min MD Nithya Brown Work Phone: [facility] 04-30-2022 14:47-0500 Body mass index (BMI) [Ratio] 27.1 kg/m2 MD Nithya Brown Work Phone: [facility] 04-30-2022 14:21-0500 Body height 162.56 cm MD Nithya Brown Work Phone: [facility] 04-30-2022 14:21-0500 Body weight 71.66 kg MD Nithya Brown Work Phone: [facility] 04-30-2022 12:59-0500 Body temperature 98.3 [degF] MD Nithya Brown Work Phone: [facility] 04-10-2022 11:45-0500 Body height Nithya Brown Other [facility] Other 04-10-2022 11:45-0500 Body mass index (BMI) [Ratio] 28.15 kg/m2 Nithya Brown Other [facility] Other 04-10-2022 11:45-0500 Body weight 74.39 kg Nithya Brown Other [facility] Other 04-10-2022 11:45-0500 Diastolic blood pressure 90 mm[Hg] Nithya Brown Other [facility] Other 04-10-2022 11:45-0500 SaO2% (BldA) [Mass fraction] 95 % Nithya Brown Other [facility] Other 04-10-2022 11:45-0500 Systolic blood pressure 152 mm[Hg] Nithya Brown Other [facility] Other Encounters Encounter Date Encounter Type Care Provider Facility Start: 06-04-2023 Orders Only Farzana Wu MD Work Phone: [facility] Comment on above: 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CMS-HCC) (Primary Dx) Start: 05-31-2023 Telephone encounter [facility] Comment on above: MRI Order Start: 05-23-2023 End: 05-23-2023 ambulatory [facility] Start: 05-23-2023 End: 05-23-2023 Office outpatient visit 25 minutes Farzana uW MD Work Phone: [facility] Comment on above: 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CMS-HCC) (Primary Dx) Start: 05-10-2023 End: 05-10-2023 ambulatory Nithya Brown Other [facility] Other Start: 05-10-2023 Telephone encounter Nithya Brown [facility] Start: 05-06-2023 Telephone encounter Aline Hernandez [facility] Comment on above: video visit Start: 05-01-2023 Telephone encounter Karol Do [facility] Start: 04-26-2023 End: 04-26-2023 ambulatory Nithya Brown Other [facility] Other Start: 04-26-2023 Telephone encounter Nithya Mellissa [facility] Start: 04-25-2023 End: 04-25-2023 ambulatory Nithya Brown Other [facility] Other Start: 04-25-2023 Telephone encounter Nithya Mellissa [facility] Start: 04-22-2023 End: 04-22-2023 ambulatory Nithya Brown Other [facility] Other Start: 04-22-2023 Telephone encounter Nithya Mellissa [facility] Start: 04-18-2023 End: 04-18-2023 ambulatory WILLARD Mercado PATI [facility] Other Start: 04-18-2023 Initial nursing faci lity care/day 35 minutes Nithya Brown [facility] Start: 04-17-2023 Documentation procedure Scarlet Nam [facility] Start: 04-17-2023 End: 04-17-2023 Evaluation and management of inpatient WON WEBSTER [facility] Start: 04-12-2023 End: 04-17-2023 Evaluation and management of inpatient OKSANA PAUL-MURPHY [facility] Start: 04-11-2023 End: 04-17-2023 Evaluation and management of inpatient DAE BO [facility] Start: 04-11-2023 End: 04-17-2023 Evaluation and management of inpatient HASEEB MCNAMARA [facility] Start: 04-10-2023 End: 04-17-2023 Evaluation and management of inpatient CHEN ANABELLE [facility] Start: 04-10-2023 End: 04-17-2023 Evaluation and management of inpatient MAI HO [facility] Start: 04-09-2023 End: 04-17-2023 Evaluation and management of inpatient [facility] Start: 04-09-2023 End: 04-17-2023 Evaluation and management of inpatient ZAY CHAPA [facility] Start: 04-09-2023 End: 04-17-2023 Evaluation and management of inpatient BRANDON [facility] Start: 04-08-2023 End: 04-17-2023 Evaluation and management of inpatient BRANDON [facility] Start: 04-07-2023 End: 04-17-2023 Evaluation and management of inpatient JANET MCALLISTER [facility] Start: 04-06-2023 End: 04-17-2023 Evaluation and management of inpatient [facility] Start: 04-06-2023 End: 04-17-2023 Evaluation and management of inpatient CHRISTINA FREITAS [facility] Start: 04-06-2023 End: 04-17-2023 Evaluation and management of inpatient [facility] Start: 04-05-2023 End: 04-17-2023 Evaluation and management of inpatient [facility] Start: 04-03-2023 End: 04-03-2023 Evaluation and management of inpatient [facility] Start: 04-03-2023 End: 04-17-2023 Evaluation and management of inpatient [facility] Start: 04-03-2023 End: 04-03-2023 Evaluation and management of inpatient [facility] Start: 04-03-2023 End: 04-17-2023 Evaluation and management of inpatient [facility] Start: 04-03-2023 End: 04-17-2023 Evaluation and management of inpatient [facility] Start: 04-02-2023 End: 04-17-2023 Evaluation and management of inpatient [facility] Start: 04-02-2023 End: 04-17-2023 Evaluation and management of inpatient ALEIDA SCHULTZ [facility] Start: 04-01-2023 End: 04-17-2023 Evaluation and management of inpatient RY DE ANDA [facility] Start: 04-01-2023 End: 04-17-2023 Evaluation and management of inpatient WILLARD KRUEGER [facility] Start: 04-01-2023 End: 04-17-2023 Evaluation and management of inpatient Willard Mercado Pati [place] Work Phone: [facility] - GEN 8 Acute Start: 04-01-2023 ambulatory NITHYA BROWN [facility] Start: 02-21-2023 End: 02-21-2023 ambulatory Nithya Brown Other [facility] Other Start: 02-21-2023 Telephone encounter Nithya Brown [facility] Start: 01-14-2023 End: 01-14-2023 ambulatory Nithya Brown Other [facility] Other Start: 01-14-2023 Telephone encounter Nithya Brown [facility] Start: 11-27-2022 End: 11-27-2022 ambulatory Kate Mane Other [facility] Other Start: 11-27-2022 Office outpatient vi sit [address] [facility] Start: 10-08-2022 End: 10-08-2022 ambulatory Kate Kenneyey Other [facility] Other Start: 10-08-2022 Telephone encounter Kate Mane [facility] [employer] Start: 10-02-2022 End: 10-02-2022 ambulatory Katelyubov Mane Other [facility] Other Start: 10-02-2022 Office outpatient vi sit 15 minutes Kate Calvey [facility] Start: 09-07-2022 End: 09-07-2022 ambulatory Nithya Brown Other [facility] Other Start: 09-07-2022 Office outpatient vi sit 15 minutes Nithya Brown [facility] Start: 08-31-2022 Office outpatient vi sit 15 minutes Kate Mane [facility] Start: 08-31-2022 End: 08-31-2022 ambulatory Kate Mane [facility] Other Start: 08-30-2022 End: 08-31-2022 ambulatory MD Leon Badillo Facility:[facility] Start: 07-20-2022 Postop follow up vis it related to original px Kaet Calvey [facility] Start: 07-20-2022 End: 07-20-2022 ambulatory Kate Mane Facility:[facility] Start: 07-20-2022 End: 07-20-2022 ambulatory MD Nithya Brown Work Phone: [facility] Work Phone: Start: 07-20-2022 End: 07-20-2022 Patient encounter procedure MD Nithya Brown Work Phone: [facility] Start: 06-20-2022 End: 06-20-2022 ambulatory Kate Mane Facility:[facility] Start: 06-20-2022 End: 06-20-2022 Patient encounter procedure MD Nithya Brown Work Phone: [facility] Start: 06-20-2022 End: 06-20-2022 ambulatory MD Nithya Brown Work Phone: [facility] Work Phone: Start: 06-20-2022 Postop follow up vis it related to original px Kate Calvey [facility] Start: 06-15-2022 End: 06-16-2022 ambulatory MD Leon Badillo Facility:[facility] Start: 06-15-2022 End: 06-15-2022 Patient encounter procedure Leon [facility] Start: 06-04-2022 End: 06-05-2022 ambulatory MD Leon Badillo Facility:[facility] Start: 06-04-2022 End: 06-04-2022 Patient encounter procedure Leon [facility] Start: 05-23-2022 End: 05-23-2022 ambulatory Kate Mane Facility:[facility] Start: 05-23-2022 End: 05-23-2022 Patient encounter procedure MD Nithya Brown Work Phone: [facility] Start: 05-23-2022 End: 05-23-2022 ambulatory MD Nithya Brown Work Phone: [facility] Work Phone: Start: 05-23-2022 Postop follow up vis it related to original px Kate Calvey [facility] Start: 05-14-2022 ambulatory KATE CALVEY Facility : Start: 05-09-2022 End: 05-09-2022 ambulatory Kate Calvey Other [facility] Other Start: 05-09-2022 Postop follow up vis it related to original px Kate Calvey [facility] Start: 05-01-2022 End: 05-01-2022 ambulatory Kate Calvey Other [facility] Other Start: 05-01-2022 Telephone encounter Kate Calvey F [facility] Start: 05-01-2022 Encounter for other preprocedural examination GASTON REDMAN [facility] Start: 05-01-2022 Encounter for preprocedural cardiovascular examination GASTON REDMAN [facility] Start: 05-01-2022 Encounter for preprocedural laboratory examination GASTON REDMAN [facility] Start: 04-30-2022 Encounter for other preprocedural examination KATE MANE [facility] Start: 04-30-2022 End: 04-30-2022 ambulatory Kate Mane Facility:[facility] Start: 04-30-2022 End: 04-30-2022 Admission to same day surgery center MD Nithya Brown Work Phone: [facility] [place] Start: 04-30-2022 End: 04-30-2022 ambulatory MD Nithya Brown Work Phone: [facility] Work Phone: Start: 04-27-2022 End: 04-28-2022 ambulatory KATE MANE Facility:[facility] Start: 04-27-2022 End: 04-28-2022 Encounter for other preprocedural examination KATE MANE Facility:[facility] Start: 04-27-2022 End: 04-27-[address] NITHYA BROWN Facility: Start: 04-25-2022 End: 04-26-[address] NITHYA BROWN Facility:[facility] Start: 04-23-2022 End: 04-23-2022 ambulatory Nithya Brown Other [facility] Other Start: 04-23-2022 Telephone encounter Nithya Brown [facility] Start: 04-16-2022 End: 04-17-[address] NITHYA BROWN Facility: Start: 04-10-2022 End: 04-10-2022 ambulatory Nithya Brown Other [facility] Other Start: 04-10-2022 Office outpatient vi sit 15 minutes Nithya Brown [facility] Start: 04-10-2022 Patient encounter procedure Nithya Brown [facility] Start: 09-15-2021 Adult health examination Tracie Moultonashley Other [facility] Other Start: 08-03-2021 End: 08-04-[address] DOCTOR GOMEZ Facility: Start: 07-12-2021 End: 07-13-2021 Evaluation and management of inpatient LEON MELGARAN Facility:[facility] [place] Start: 06-06-2021 End: 06-07-[address] NITHYA [...] Phone: Start: 04-13-2023 Electrolyte panel Haseeb Black MOTOR VEHICLE INSPECTOR-C SENIOR RADIATION PROTECTION TECHNICIAN Work Phone: Start: 04-12-2023 OXYGEN THERAPY Won Webster MD Work Phone: Start: 04-12-2023 Electrolyte panel Haseeb Black MOTOR VEHICLE INSPECTOR-C SENIOR RADIATION PROTECTION TECHNICIAN Work Phone: Start: 04-12-2023 Electrolyte panel Haseeb Black MOTOR VEHICLE INSPECTOR-C SENIOR RADIATION PROTECTION TECHNICIAN Work Phone: Start: 04-12-2023 Blood count complete auto&auto difrntl wbc Willard Krueger MD Work Phone: Start: 04-12-2023 Comprehensive metabolic panel Ry De Anda MD Work Phone: Start: 04-12-2023 Ct angiography neck w/contrast/noncontrast Oksana Bal MD Work Phone: Start: 04-12-2023 Ct angiography head w/contrast/noncontrast Oksana Bal MD Work Phone: Start: 04-12-2023 Electrolyte panel Haseeb Black MOTOR VEHICLE INSPECTOR-C SENIOR RADIATION PROTECTION TECHNICIAN Work Phone: Start: 04-11-2023 Electrolyte panel Haseeb Black MOTOR VEHICLE INSPECTOR-C SENIOR RADIATION PROTECTION TECHNICIAN Work Phone: Start: 04-11-2023 End: 04-11-2023 Egd percutaneous placement gastrostomy tube Dae Bo MD Work Phone: Start: 04-11-2023 Electrolyte panel Haseeb Black MOTOR VEHICLE INSPECTOR-C SENIOR RADIATION PROTECTION TECHNICIAN Work Phone: Start: 04-11-2023 ES EGD IMAGING Dae Bo MD Work Phone: Start: 04-11-2023 Radiologic exam chest single view Haseeb Mcnamara MOTOR VEHICLE INSPECTOR-CANDY VENDOR Work Phone: Start: 04-11-2023 Electrolyte panel Haseeb Black MOTOR VEHICLE INSPECTOR-C SENIOR RADIATION PROTECTION TECHNICIAN Work Phone: Start: 04-11-2023 Comprehensive metabolic panel Ry De Anda MD Work Phone: Start: 04-10-2023 Electrolyte panel Haseeb Mcnamara MOTOR VEHICLE INSPECTOR-C SENIOR RADIATION PROTECTION TECHNICIAN Work Phone: Start: 04-10-2023 Antinuclear antibodies kay Angeles Bullock an MOTOR VEHICLE INSPECTOR-CANDY VENDOR Work Phone: Start: 04-10-2023 Electrolyte panel Haseeb Mcnamara MOTOR VEHICLE INSPECTOR-C SENIOR RADIATION PROTECTION TECHNICIAN Work Phone: Start: 04-10-2023 Iaad ia hiv-1 ag w/hiv-1 & hiv-2 antbdy single Angeles Conner MOTOR VEHICLE INSPECTOR-CANDY VENDOR Work Phone: Start: 04-10-2023 Antibody identification platelet antibodies Willard Krueger MD Work Phone: Start: 04-10-2023 Us abdominal real time w/image limited Chen Hinders MOTOR VEHICLE INSPECTOR-CANDY VENDOR Work Phone: Start: 04-10-2023 Potassium serum plasma/whole blood Zay Chapa MD Work Phone: Start: 04-10-2023 Radiologic exam chest single view Mai Ho MOTOR VEHICLE INSPECTOR-CANDY VENDOR Work Phone: Start: 04-10-2023 Comprehensive metabolic panel Ry De Anda MD Work Phone: Start: 04-10-2023 CLINICAL PATHOLOGY Willard Krueger MD Work Phone: Start: 04-09-2023 Fibrin dgradj products d-dimer quantitative Janet LAN Work Phone: Start: 04-09-2023 Assay of haptoglobin quantitative Chen Hinders MOTOR VEHICLE INSPECTOR-CANDY VENDOR Work Phone: Start: 04-09-2023 Antihuman globulin direct each antiserum Whitman Hinders MOTOR VEHICLE INSPECTOR-CANDY VENDOR Work Phone: Start: 04-09-2023 CLINICAL PATHOLOGY BLOOD SMEAR REVIEW Whitman Hinders MOTOR VEHICLE INSPECTOR-CANDY VENDOR Work Phone: Start: 04-09-2023 Ct head/brain w/o contrast material Artemio Ray MD Work Phone: Start: 04-09-2023 Cyanocobalamin vitamin b-12 Mai riley MOTOR VEHICLE INSPECTOR-CANDY VENDOR Work Phone: Start: 04-09-2023 Assay of magnesium Brandon Gooden MOTOR VEHICLE INSPECTOR -CANDY VENDOR Work Phone: Start: 04-09-2023 Radiologic exam chest single view Zay Chapa MD Work Phone: Start: 04-09-2023 Radiologic exam chest single view Brandon Marcos MOTOR VEHICLE INSPECTOR-CANDY VENDOR Work Phone: Start: 04-09-2023 Ecg routine ecg w/least 12 lds trcg only w/o i&r Zay Chapa MD Work Phone: Start: 04-09-2023 BRONCHOPULMONARY HYGIENE Christina Fina h Swor DO Work Phone: Start: 04-09-2023 Comprehensive metabolic panel Ry De Anda MD Work Phone: Start: 04-08-2023 Sodium serum plasma or whole blood Brandon Gooden MOTOR VEHICLE INSPECTOR-CANDY VENDOR Work Phone: Start: 04-08-2023 Sodium serum plasma or whole blood Brandon Lakeeder MOTOR VEHICLE INSPECTOR-CANDY VENDOR Work Phone: Start: 04-08-2023 Potassium serum plasma/whole blood Zay Chapa MD Work Phone: Start: 04-08-2023 Radiologic exam chest single view Brandon Marcos MOTOR VEHICLE INSPECTOR-CANDY VENDOR Work Phone: Start: 04-08-2023 Comprehensive metabolic panel [...] 04-07-2023 Radiologic exam chest single view Janet Ambrose Oz LAN Work Phone: Start: 04-07-2023 Comprehensive metabolic panel yR De Anda MD Work Phone: Start: 04-07-2023 [...] aureus methicillin resist amp probe tq Christina Leah Swor DO Work Phone: Start: 04-03-2023 Radiologic exam chest single view Mohan De Anda MD Work Phone: Start: 04-03-2023 BRONCHOPULMONARY HYGIENE Christina Fina h Swor DO [...] Work Phone: Start: 04-02-2023 Comprehensive metabolic panel Willadr Krueger MD Work Phone: Start: 04-02-2023 Ct head/brain w/o contrast material Aleida Schultz MOTOR VEHICLE INSPECTOR-CANDY VENDOR Work Phone: Start: 04-02-2023 Blood count complete [...] Start: 04-17-2024 Adult BMI Screening Adult BMI Screen ing [facility] [employer] Start: 04-11-2024 Tobacco Screening [facility]ening [facility] Start: 06-04-2023 End: 06-04-2024 MR Brain WO and W contrast IV MR brain with and without contrast Imaging Routine 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CMS-HCC) Expected: 06/04/2023, Expires: 06/04/2024 [employer] Work Phone: Comment on above: Expected: 06/04/2023 , Expires: 06/04/2024 Start: 05-23-2023 End: 05-23-2023 ambulatory [facility] Start: 05-23-2023 End: 05-23-2023 Patient encounter procedure 05/23/2023 1:30 PM EST Office Visit [facility] [address] [place] [phone] Farzana Wu MD [address] [place] [address], [address] [place] [address] [facility] Start: 05-23-2023 End: 05-23-2023 Telemedicine consultation with patient 05/23/2023 1:30 PM EST Telemedicine [facility] [address] [place] [phone] Farzana Wu MD [address] [facility], [address], [address] [place] [address] [facility] Start: 05-16-2023 End: 05-16-2023 ambulatory Debbie Chin [facility] Start: 05-16-2023 End: 05-16-2023 Patient encounter procedure 05/16/2023 10:30 AM EST Office Visit Debbie Chin [facility] [address] [place] [phone] Ugo Marie MD [address] [place] [address] [address] [place] [id number] Debbie Chin [facility] Start: 03-26-2023 Administration of varicella zoster vaccine Zoster (Shingles) Vaccine (2 of 2) [facility] [employer] [facility] Start: 04-30-2022 End: 04-30-2022 [facility] Start: 2008 Fall Risk Screening Fall Risk Screen ing [facility] Start: 1962 DTaP,Tdap and Td Vac cines (1 - Tdap) DTaP,Tdap and Td Vaccines (1 - Tdap) [facility] Start: 1961 Adult BMI Follow Up Plan Adult BMI Follow Up Plan [facility] Start: 1955 Depression Screening Depression Scre ening [facility] Start: 1943 Medicare Annual Well ness Visit Medicare Annual Wellness Visit [facility] Patient referral [facility] Work Phone: End: 04-08-2023 Potassium [Moles/volume] in Serum or Plasma [facility] Work Phone: Immunizations Immunization Date Immunization Notes Care Provider Fa cility 01-29-2023 zoster vaccine laureen Krueger MD Work Phone: [facility] 01-29-2023 zoster vaccine, unspecified formulation [facility] 12-28-2022 Willard Krueger MD Work Phone: [facility] 01-15-2022 COVID-19 Pfizer (Pediatric) Kate Mane Other [facility] Other 01-15-2022 influenza virus vaccine, split virus (incl. purified surface antigen) Kate Mane Other [facility] Other 01-15-2022 Prevnar 20 Kate Mane Other [facility] Other 01-15-2022 Willard Krueger MD Work Phone: [facility] 03-09-2021 COVID-19 Vaccine Pfi zer - Documentation Purposes Only Kate Mane Other [facility] Other 01-26-2021 pneumococcal polysaccharide vaccine, 23 valent Kate Mane Other [facility] Other 01-13-2021 Willard Krueger MD Work Phone: [facility] 05-31-2020 COVID-19 Vaccine Pfi zer - Documentation Purposes Only Kate Mane Other [facility] Other 05-10-2020 COVID-19 Vaccine Pfi zer - Documentation Purposes Only Kate Mane Other [facility] Other 12-21-2018 influenza, high dose seasonal, preservative-free Willard Krueger MD Work Phone: [facility] 01-27-2018 influenza virus vaccine, split virus (incl. purified surface antigen) Kate Mane Other [facility] Other 01-27-2018 influenza, high dose seasonal, preservative-free Willard Krueger MD Work Phone: [facility] 01-27-2018 pneumococcal Conjuga te, unspecified formulation; Translations: [Need for prophylactic vaccination against Streptococcus pneumoniae (pneumococcus)] Kate Mane Other [facility] Other 01-27-2018 pneumococcal polysaccharide vaccine, 23 valent Kate Mane Other [facility] 02-09-2016 pneumococcal conjuga te vaccine, 13 valent Kate Mane Other [facility] Other 01-20-2016 Seasonal trivalent influenza vaccine, adjuvanted, preservative free Willard Krueger MD Work Phone: [facility] 12-22-2015 influenza virus vaccine, split virus (incl. purified surface antigen) Kate Mane Other [facility] Other 12-25-2014 influenza, high dose seasonal, preservative-free Willard Krueger MD Work Phone: [facility] 01-14-2014 tetanus and diphther ia toxoids, adsorbed, preservative free, for adult use (5 Lf of tetanus toxoid and 2 Lf of diphtheria toxoid) Kate Mane Other [facility] Other 12-18-2012 tetanus and diphther ia toxoids, adsorbed, preservative free, for adult use (5 Lf of tetanus toxoid and 2 Lf of diphtheria toxoid) Kate Mane Other [facility] Other Payers Date Payer Category Payer Unknown [id number] 2022 Self-pay 2022 Unknown [id number] 2021 Unknown [employer] [id number] 2021-Present [phone] [address] [place] [address] [id number] .[id number] 2008 Medicare [id number]. 1.13.424.2.7.3 .[id number] 1959 Medicare [id number] 1959 Unknown [id number] 1943 Unknown [id number] 2.16.840.1.506180.3.579.2.647 1943 Unknown [id number] 2.16.840.1.570907.3.579.2.593 1943 Unknown [id number] 2.16.840.1.420126.3.579.2.593 1943 Unknown [id number] 2.16.840.1.117940.3.579.2.593 1943 Unknown [id number] 2.16.840.1.271013.3.579.2.593 1943 Unknown [id number] 2.16.840.1.979279.3.579.2.593 1943 Unknown [id number] 2.16.840.1.371924.3.579.2.593 1943 Unknown [id number] 2.16.840.1.201120.3.579.2.593 1943 Unknown [id number] 2.16.840.1.212440.3.579.2.727 1943 Unknown [id number] 2.16.840.1.099262.3.579.2.727 1943 Unknown [id number] 2.16.840.1.443827.3.579.2.727 1943 Unknown [id number] 2.16.840.1.919759.3.579.2.128 6 194 Unknown [id number] 2.16.840.1.018390.3.579.2.128 6 194 Unknown [id number] 2.16.840.1.671739.3.579.2.128 6 194 Unknown [id number] 2.16.840.1.621979.3.579.2.128 6 194 Unknown [id number] 2.16.840.1.657387.3.579.2.128 6 194 Unknown [id number] 2.16.840.1.466771.3.579.2.128 6 1943 Unknown [id number] 2.16.840.1.421156.3.579.2.128 6 1943 Unknown [id number] 2.16.840.1.187045.3.579.2.128 6 1943 Unknown [id number] 2.16.840.1.897294.3.579.2.128 6 1943 Unknown [id number] 2.16.840.1.935263.3.579.2.128 6 194 Unknown [id number] 2.16.840.1.544676.3.579.2.128 6 1943 Unknown [id number] 2.16.840.1.757817.3.579.2.128 6 194 Unknown [id number] 2.16.840.1.638846.3.579.2.128 6 194 Unknown [id number] 2.16.840.1.845150.3.579.2.128 6 194 Unknown [id number] 2.16.840.1.580236.3.579.2.128 6 194 Unknown [id number] 2.16.840.1.239490.3.579.2.128 6 1943 Unknown [id number] 2.16.840.1.140578.3.579.2.128 6 1943 Unknown [id number] 2.16.840.1.767227.3.579.2.128 6 1943 Unknown [id number] 2.16.840.1.617232.3.579.2.128 6 1943 Unknown [id number] 2.16.840.1.416173.3.579.2.128 6 1943 Unknown [id number] 2.16.840.1.317452.3.579.2.128 6 1943 Unknown [id number] 2.16.840.1.841327.3.579.2.128 6 1943 Unknown [id number] 2.16.840.1.345977.3.579.2.128 6 1943 Unknown [id number] 2.16.840.1.766902.3.579.2.128 6 1943 Unknown [id number] 2.16.840.1.689804.3.579.2.128 6 1943 Unknown [id number] 2.16.840.1.478634.3.579.2.128 6 1943 Unknown [id number] 2.16.840.1.363933.3.579.2.128 6 1943 Unknown [id number] 2.16.840.1.452274.3.579.2.128 6 1943 Unknown [id number] 2.16.840.1.409958.3.579.2.128 6 1943 Unknown [id number] 2.16.840.1.667873.3.579.2.128 6 1943 Unknown [id number] 2.16.840.1.975652.3.579.2.128 6 1943 Unknown [id number] 2.16.840.1.061753.3.579.2.128 6 1943 Unknown [id number] 2.16.840.1.724733.3.579.2.128 6 1943 Unknown [id number] 2.16.840.1.941731.3.579.2.128 6 1943 Unknown [id number] 2.16.840.1.303387.3.579.2.128 6 Medicare Medicare Outpatient [id number] [id number] Unknown [employer] C o [id number] Unknown [id number] 2.16.840.1.831976.3.579.2.531 Unknown [id number] 2.16.840.1.514673.3.579.2.531 Unknown [id number] 2.16.840.1.059620.3.579.2.531 Unknown [id number] 2.16.840.1.148207.3.579.2.531 Unknown [id number] 2.16.840.1.910266.3.579.2.531 Social History Date Type Detail Facility Start: 04-30-2022 End: 04-02-2023 Tobacco smoking status WVIS Ex-smoker (finding) [facility] Start: 1945 Sex Assigned At Female [facility] Start: 05-19-2020 End: 04-11-2023 Sex Assigned At [facility] Tobacco smoking status Never [facility] History of tobacco use Current smoker [facility] Start: 04-02-2023 Tobacco use and exposure Smokeless tobacco non-user [facility] Start: 04-11-2023 Alcohol intake Current drinke r of alcohol (finding) [facility] Start: 05-19-2020 End: 04-11-2023 History of Social function [facility] Start: 04-02-2023 Tobacco Comment QUIT IN JUNE 2019 [facility] Start: 05-11-2019 Alcohol Comment SOMETIMES [facility] Start: 1945 Sex Assigned At P [facility] Medical Equipment Procedure Code Equipment Code Equipment Origin al Text Equipment Identifier Dates ORIF, fracture, wrist Orthopaedic fixation plate, non-bioabsorbable, sterile ()[id number] FDA Start: 04-30-2022 ORIF, fracture, wrist Orthopaedic bone screw, non-bioabsorbable, non-sterile ()[id number] FDA Start: 04-30-2022 ORIF, fracture, wrist Orthopaedic bone wire ()[id number] FDA Start: 04-30-2022 ORIF, fracture, wrist Orthopaedic bone screw, non-bioabsorbable, non-sterile ()[id number] FDA Start: 04-30-2022 ORIF, fracture, wrist Orthopaedic bone screw, non-bioabsorbable, non-sterile ()[id number] FDA Start: 04-30-2022 ORIF, fracture, wrist Orthopaedic bone screw, non-bioabsorbable, non-sterile ()[id number] FDA Start: 04-30-2022 ORIF, fracture, wrist Orthopaedic bone screw, non-bioabsorbable, non-sterile ()[id number] FDA Start: 04-30-2022 Goals Date Patient Goal Desired Activity /State Personal health goal Comment on above: Formatting of this n ote might be different from the original. Evaluation of progress towards goal: to discharge to a [facility] facility for rehab Functional Status Date Assessment Result Facility 06-04-[address] [facility] Clinical Notes 04-10-2022 to 05-31-2023 Telephone Encounter - Shi Mead - 05/31/2023 11:12 AM ESTTelephone Encounter - Radha Perry CMA - 05/31/2023 11:12 AM ESTTelephone Encounter - Farzana Wu MD - 05/31/2023 11:12 AM EST Note Date & Type Note Facility 05-31-2023 Miscellaneous Notes Patient's granddaughter (Elvin LOCK) would like MRI order faxed to facility patient is residing at. Patient is currently at [facility]. Noted that Dr. Wu asked pt to complete MRI brain wwo contrast; however, there is no order. Please advise. Ordered. Faxed the order to the facility. Confirmation received. documented in this encounter [facility] 05-31-2023 Telephone encounter Note Patient's granddaughter (Elvin LOCK) would like MRI order faxed to facility patient is residing at. Patient is currently at [facility]. [facility] 05-31-2023 Telephone encounter Note Noted that Dr. Wu asked pt to complete MRI brain wwo contrast; however, there is no order. Please advise. [facility] 05-31-2023 Telephone encounter Note Ordered. [facility] Work Phone: 05-31-2023 Telephone encounter Note Faxed the order to the facility. Confirmation received. [facility] 05-23-2023 History of Presen t illness Narrative Images from the original note were not included. [facility] Visit Date of Visit: 05/23/2023 Patient Location: facility Patient Consent obtained: yes, Verbal Prior to beginning this clinical portion of this visit, the patient/family has consented to the use of this telemedicine E-visit and initiated the contact. They have also consented to using [employer] as a communications platform, understanding the privacy limitations, and telehealth and HIPAA waivers as established in the [facility] expansion of telehealth benefits under the 1135 waiver authority and the Coronavirus Preparedness and Response Supplemental Appropriations Act Dated June and as summarized in June 23, 2019 [facility] FAQ on the Coronavirus (COVID-19) public health emergency. The patient has an established relationship with ct and was last seen on the inpatient stroke service in March 2023. Reason for Visit: recent hemorrhagic stroke in the left thalamus. 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 Patient had initially presented with right lower extremity and upper extremity weakness and numbness. Patient has prior medical history of hypertension hyperlipidemia. During hospital stay patient completed a CT brain which showed a sizable left thalamic intraparenchymal hemorrhage with intraventricular extension. Patient did not need neurosurgical intervention. Patient could not tolerate the MRI brain scan at that time. Patient was discharged to a [facility] facility for which he currently resides. Patient is doing daily PT/OT/ST. Patient still has a PEG tube but has slowly started a pureed diet. Patient still has significant right sided numbness and weakness arm more than leg and is not able to ambulate independently. Patient also needs help with her ADLs. Patient's speech is clear but is delayed and patient also has word-finding difficulty. Patient is present on video today with family including son and daughter. Neurological ROS: positive for - confusion, gait disturbance, numbness/tingling, speech problems, weakness, and dysphagia Past Medical History: Diagnosis Date AAA (abdominal aortic aneurysm) ([facility]) was surgically taken care of 09/2018 GERD (gastroesophageal reflux disease) Hypertension Upper respiratory infection 05/2019 Visual impairment glasses Past Surgical History: Procedure Laterality Date BREAST BIOPSY BREAST SURGERY 1989 BREAST BX CARDIAC SURGERY STENT 2018 CARDIAC SURGERY LEFT VENTRICLE STENT 2018 DILATION AND CURETTAGE, DIAGNOSTIC / THERAPEUTIC 1986 ESOPHAGOGASTRODUODENOSCOPY INSERTION PEG TUBE N/A 04/11/2023 Performed by Dae Bo MD at [facility] HYSTERECTOM[facility] KNEE ARTHROSCOPY Left KNEE ARTHROSCOPY Left REMOVE METAL 2014 LAPAROSCOPIC CHOLECYSTECTOMY N/A 05/26/2019 Performed by Caro Pollard DO at [facility] ORIF WRIST FRACTURE Right Pins Medication List Accurate as of May 23, 2023 1:45 PM. If you have any questions, ask your nurse or doctor. CONTINUE taking these medications Instructions Last Dose Given Next Dose Due amLODIPine 10 mg tablet Commonly known as: NORVASC Take 1 tablet (10 mg total) by mouth in the morning. carvediloL 25 mg tablet Commonly known as: COREG Take 1 tablet (25 mg total) by mouth in the morning and 1 tablet (25 mg total) before bedtime. hydroCHLOROthiazide 25 mg tablet Commonly known as: HYDRODIURIL Take 1 tablet (25 mg total) by mouth daily. * KLOR-CON 20 mEq packet Generic drug: potassium chloride Klor-Con 20 mEq oral packet Take 1 packet 4 times a day by oral route. * potassium chloride 10 MEQ CR tablet Commonly known as: K-TAB,KLOR-CON Take 2 tablets (20 mEq total) by mouth in the morning and 2 tablets (20 mEq total) before bedtime. lisinopriL 40 mg tablet Commonly known as: PRINIVIL,ZESTRIL Take 1 tablet (40 mg total) by mouth in the morning and 1 tablet (40 mg total) before bedtime. metoprolol tartrate 25 mg tablet Commonly known as: LOPRESSOR Take 1 tablet (25 mg total) by mouth in the morning and 1 tablet (25 mg total) before bedtime. pantoprazole 40 mg EC tablet Commonly known as: PROTONIX Take 1 tablet (40 mg total) by mouth every morning before breakfast. * This list has 2 medication(s) that are the same as other medications prescribed for you. Read the directions carefully, and ask your doctor or other care provider to review them with you. Allergies Allergen Reactions Ciprofloxacin Headache Alendronate Bee Venom Protein (Honey Bee) feels like my eyes are spinning around Msrsqkvr-Mezdfmglmeh-Qnwycdzkt Oxycodone Headache I just don't want to take it Social Reviewed: TOBACCO:.none ETOH:none RECREATIONAL DRUG USE: none No family history on file. No family history on file. Physical Exam: There were no vitals filed for this visit. Please note that this exam was done through telemedicine, thus specific portions may be limited. NIH Stroke Scale Person Administering Scale: Farzana Wu MD 1a Level of consciousness: 0=alert; keenly responsive 1b. LOC questions: 2=Performs neither task correctly 1c. LOC commands: 0=Performs both tasks [...] for full 10 seconds 6b Motor right le=Some effort against gravity, limb cannot get to or maintain (if cured) 90 (or 45) degrees, drifts down to bed, but has some effort against gravity 7. Limb Ataxia: 0=Absent 8. Sensory: 2=Severe to total sensory loss; patient is not aware of being touched in face, arm, leg 9. Best Language: 1=Mild to moderate aphasia; some obvious loss of fluency or facility of comprehension without significant limitation on ideas expressed or form of expression. 10. Dysarthria: 0=Normal 11. 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 Note patient still has residual significant right-sided weakness arm more than leg and decreased sensation and dysphagia status post PEG tube and is currently residing at a nursing facility. Patient was seen on video today with family. Of note patient had not done in MRI brain at that time of hospital admission. At this time will ask patient to complete MRI brain with and without contrast. Continue to aggressively control blood pressure. And also continue PT/OT/ST and follow up in approximately 4-5 months. Additional Recommendations: Please note case was done in collaboration with: Patient and patient's family I have spent 30 minutes personally reviewing previous history, imaging, and performing a face to face real time video health assessment on this patient via camera. If you have any further questions please feel free to contact our office at [facility]. This is a telemedicine visit. Verbal and/or written consent to participate in video visit was obtained. This visit occurred during in a Coronavirus (COVID-19) Public Health Emergency. I discussed with the patient the nature of his/her telemedicine visits that: - I would evaluate the patient and recommend diagnostics and treatments based on my assessment. - our sessions are not being recorded and that personal health information is being protected to the best of my ability. - our team would provide follow-up care in person if/ when the patient needs it documented in this encounter [facility] 05-06-2023 Miscellaneous Notes Sue Chaparro at [place] [phone] ext [phone] states that family would to know if patient could have a video visit on 05/[address] Wu? Caller states that family fears that patient will not do well in wheelchair long enough for patient to be seen in office. Caller has requested a call back. Called facility back and updated the appt to video documented in this encounter [facility] 05-06-2023 Telephone encounter Note Sue Chaparro at [place] [phone] ext [phone] states that family would to know if patient could have a video visit on 05/[address] Wu? Caller states that family fears that patient will not do well in wheelchair long enough for patient to be seen in office. Caller has requested a call back. [facility] 05-06-2023 Telephone encounter Note Called [facility] and [facility] the [facility] Miscellaneous Notes SUE FROM THE [facility] CALLED TO CANCEL HOSPITAL DISCHARGE FOLLOW UP SHE SAID FOR NOW SHE IS FOLLOWING WITH HER PCP [facility] Telephone encounter Note SUE FROM THE [facility] CALLED TO CANCEL HOSPITAL DISCHARGE FOLLOW UP SHE SAID FOR NOW SHE IS FOLLOWING WITH HER [facility]CP [facility] Evaluation note Encounter Date Diagnosis Assessment Notes Apr, 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ICD-10 - I61.0) Reviewed PMR consult. Forwarded info to [facility] as well. Scheduled to see neurology in next 1-2 weeks. Continue PT/OT as able Apr, Thrombocytopenia (ICD-10 - D69.6) Hematology assessed at [facility] - followup as scheduled. Apr, Essential (primary) hypertension (ICD-10 - I10) Updated medication list. Will continue to monitor [facility] Other 01-10-2024 History of Present illness Narrative* [...] 7:23 AM EST To: Ugo Marie MD; [facility] Scheduling; * Subject: D/C will need follow up Good morning! Patient admitted for brain bleed, found to have persistent thrombocytopenia. Family indicated they believe she's always had low platelet count. Patient will need to follow up with Dr. 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 Thanks! Armand [facility] Miscellaneous Notes* Discharge Planning Note - GAURAV Gandhi - 04/17/2023 8:59 AM EST Images from the original note were not included. DISCHARGE PLANNING NOTE VALERIE notified that transport was delayed last night and transport was rescheduled for 8am today and per PTN they are running behind and will be here about 930am to pick pt up and take to [facility] VALERIE notified the facility , RN, and left msg with pt gómez/ASHVIN Celeste to inform of pt leaving this am. CRF was sent, HENS completed. S tx cert in dc packet. Update pt soniadtr called back and is aware of pt leaving today at 930am to [facility]. Services Requested: Services Requested Discharge Disposition: Non [facility] SNF Name: [facility] Fax Number: . [facility] Does the patient need discharge transportation arranged?: Yes Transportation Arranged: Ambulance Patient choice offered: Yes List Provided: Yes CarePort List Provided: Senior Care Facility Initial DC Assessment Completed: Yes Patient Goals: Patient/Caregiver Goals Patient/Caregiver Goals: Senior Care Care Skilled Nuring Care: Skilled Care (Short Term) Goals: Goals discharge (pt-stated) Evaluation of progress towards goal: to discharge to a [facility] facility for rehab - GAURAV Gandhi 04/17/23 9:01 AM * Discharge Planning Note - Alissa Cho - 04/17/2023 8:56 AM EST DISCHARGE PLANNING NOTE Per Elio at [facility] PTN BLS is on their way and should be up the the floor within 30 min, about 9:25am. Epic chat sent to VALERIE Rogers. * Discharge Planning Note - GAURAV Gandhi - 04/16/2023 4:04 PM EST Images from the original note were not included. DISCHARGE PLANNING NOTE [facility] accepted pt. No auth needed. Pt will discharge today. Transport arranged for 5pm. Patient family, POA. RN, facility all aware. HENS completed. BLS tx cert in dc packet. Will fax CRF. SW asked RN to print CRF and place in packet once orders are completed. Services Requested: Services Requested Discharge Disposition: Non [facility] SNF Name: [facility] Fax Number: . SNF Does the patient need discharge transportation arranged?: Yes Transportation Arranged: Ambulance Patient choice offered: Yes List Provided: Yes [facility]Port List Provided: Senior Care Facility Initial DC Assessment Completed: Yes Patient Goals: Patient/Caregiver Goals Patient/Caregiver Goals: Senior Care Care Skilled Nuring Care: Skilled Care (Short Term) Goals: Goals discharge (pt-stated) Evaluation of progress towards goal: to discharge to a [facility] facility for rehab - GAURAV Gandhi 04/16/23 4:05 PM * Plan of Care - Nicole Altamirano RN - 04/16/2023 1:47 PM EST Problem: Pain Goal: Patient goal is pain score less than 4, able to rest, and participant in treatment plan as appropriate Description: INTERVENTIONS: 1. Encourage patient or legal solar sales representative and assessor to report early pain and ask for [...] per policy 9. Teach patient or legal solar sales representative and assessor interventions for comforting Outcome: Progressing Note: Evaluation [...] at the bedside 7. Instruct patient/ patient solar sales representative and assessor about use of safety devices 8. Include patient/ patient solar sales representative and assessor in decisions related to safety Note: Evaluation of progress towards goal: pt will remain dafe during this shift, safety measures in place, will monitor Problem: Moderate - High Risk Fall Score Description: [place] Fall Score of =/> 25 or indicated by [facility] Assessment Goal: Patient should be free from fall Description: Interventions: 1. [place] to environment 2. Hourly rounds addressing the [...] non-skid footwear 11. Teach patient and patient solar sales representative and assessor to maintain environment for safety and engage [...] (cane, walker) within reach 19. Request patient solar sales representative and assessor bring adaptive equipment/mobility aids from home or obtain and provide as needed 20. Consult pharmacy regarding effects of med's affecting mobility, cognition, and alternatives 21. Obtain physician order for PT if risk factors associated with mobility are present 22. Obtain physician order for OT as appropriate 23. Utilize diversional activities 24. Educate patient and patient solar sales representative and assessor how to maintain a safe environment during visitationtimes (notify nurse prior to leaving bedside) 25. Consider appropriateness of medical or non-back office medical assistant 26. Set up voiding schedule as appropriate (every 2 hours) Note: Evaluation of progress towards goal: pt will remain free from falls during this shift, call light within pt reach, staff will perform frequent rounding to assure pt safety * Discharge Planning Note - Alissa Cho - 04/16/2023 11:06 AM EST DISCHARGE PLANNING NOTE BLS transport via PTN to [facility] 04/16/23 at 5:00pm. Confirmed in [facility] * Plan of Care - Ethel Marshall RN - 04/16/2023 12:37 AM EST Problem: Pain Goal: Patient goal is pain score less than 4, able to rest, and participant in treatment plan as appropriate Description: INTERVENTIONS: 1. Encourage patient or legal solar sales representative and assessor to report early pain and ask for [...] per policy 9. Teach patient or legal solar sales representative and assessor interventions for comforting Outcome: Progressing Note: Evaluation [...] at the bedside 7. Instruct patient/ patient solar sales representative and assessor about use of safety devices 8. Include patient/ patient solar sales representative and assessor in decisions related to safety Outcome: Progressing Note: Evaluation of progress towards goal: Pt remains injury free & Safety measures maintained throughout shift.Hourly rounding completed. [place] precautions followed. Problem: Moderate - High Risk Fall Score Description: [place] Fall Score of =/> 25 or indicated by [facility] Assessment Goal: Patient should be free from fall Description: Interventions: 1. [place] to environment 2. Hourly rounds addressing the [...] non-skid footwear 11. Teach patient and patient solar sales representative and assessor to maintain environment for safety and engage [...] (cane, walker) within reach 19. Request patient solar sales representative and assessor bring adaptive equipment/mobility aids from home or obtain and provide as needed 20. Consult pharmacy regarding effects of med's affecting mobility, cognition, and alternatives 21. Obtain physician order for PT if risk factors associated with mobility are present 22. Obtain physician order for OT as appropriate 23. Utilize diversional activities 24. Educate patient and patient solar sales representative and assessor how to maintain a safe environment during visitationtimes (notify nurse prior to leaving bedside) 25. Consider appropriateness of medical or non-back office medical assistant 26. Set up voiding schedule as appropriate [...] Description: INTERVENTIONS: 1. Encourage patient or legal solar sales representative and assessor to report early pain and ask for [...] per policy 9. Teach patient or legal solar sales representative and assessor interventions for comforting Outcome: Progressing Note: Evaluation [...] at the bedside 7. Instruct patient/ patient solar sales representative and assessor about use of safety devices 8. Include patient/ patient solar sales representative and assessor in decisions related to safety Outcome: Progressing [...] hygiene technique 7. Identify and instruct patient/patient solar sales representative and assessor in use of appropriate isolation precautionsfor identified infection/symptoms 8. Provide and discuss with patient/patient solar sales representative and assessor on educational MDRO sheet 9. Encourage and monitor nutritional status daily and consult harvesting manager if indicated 10. Implement neutropenic guidelines as needed 11. Review exposure to history of communicable disease and recent travel history on admission 12. Encourage annual influenza vaccine 13. Encourage pneumonia vaccine Outcome: Progressing Note: Evaluation of progress towards goal: Patient free from signs of infection. Afebrile. Continueto Monitor. Problem: Knowledge Deficit Goal: Patient/patient solar sales representative and assessor demonstrates understanding of disease process, treatment plan,medications, and discharge instructions Description: INTERVENTIONS 1. Complete learning assessment and assess knowledge base 2. Provide teaching at level of understanding 3. Provide teaching via preferred learning method(s) Outcome: Progressing Note: Evaluation of progress towards goal: Plan of care reviewed. Patient solar sales representative and assessor verbalizesunderstanding. Problem: Discharge Planning Goal: Discharge to [...] progress towards goal: Discharge Plan Reviewed. Patient solar sales representative and assessor verbalizes understanding. Problem: Potential for Compromised Skin [...] supplement as ordered 13. Collaborate with clinical harvesting manager 14. Include patient/ patient's solar sales representative and assessor in decisions related to nutrition Outcome: Progressing [...] =/> 25 or indicated by [facility] Assessment Goal: Patient should be free from fall Description: Interventions: 1. [place] to environment 2. Hourly rounds addressing the [...] non-skid footwear 11. Teach patient and patient solar sales representative and assessor to maintain environment for safety and engage [...] (cane, walker) within reach 19. Request patient solar sales representative and assessor bring adaptive equipment/mobility aids from home or obtain and provide as needed 20. Consult pharmacy regarding effects of med's affecting mobility, cognition, and alternatives 21. Obtain physician order for PT if risk factors associated with mobility are present 22. Obtain physician order for OT as appropriate 23. Utilize diversional activities 24. Educate patient and patient solar sales representative and assessor how to maintain a safe environment during visitationtimes (notify nurse prior to leaving bedside) 25. Consider appropriateness of medical or non-back office medical assistant 26. Set up voiding schedule as appropriate [...] develop effective communication strategies 4. Include patient/patient solar sales representative and assessor in decisions related to communication Outcome: Not [...] Free from restraint(s) (Restraint for Interference with Ostomy Nurse) Description: INTERVENTIONS: 1. ONCE/SHIFT or MINIMUM [...] on patient's door 9. Provide patient/ patient solar sales representative and assessor with isolation education. Outcome: Progressing Note: Evaluation of progress towards goal: Patient free from signs of infection. Afebrile. Continueto Monitor. * Discharge Planning Note - Sabina Turk - 04/15/2023 12:41 PM EST DISCHARGE PLANNING NOTE Referral sent to [facility] (P# ; F# ) * Discharge Planning Note - GAURAV Gandhi - 04/15/2023 10:40 AM EST DISCHARGE PLANNING NOTE Discussed pt during DTR's. DC plan SNF: referral to [facility] per family request. Awaiting acceptance. Family states they do not want [facility] now. SW did leave msg with pt gómez Linden who is POA to confirm final SNF choice. No auth needed. Will need BLS transport at nd. SW to follow Update: SW received call from pt gómez Roula who is POA and she states she would like patient to go to [facility] not [facility]. SW updated grandtr that [facility] has accepted pt andwe are looking at likely dc tomorrow. Grandtr agreeable to plan. Update : negrotirso Celeste called back and now states she was told that [facility] has covid patients and they now would like the [facility], referral sent, awaiting acceptance with [facility]. - GAURAV Gandhi 04/15/23 10:41 AM * Discharge Planning Note - Sandy Ackerman - 04/15/2023 9:49 AM EST DISCHARGE PLANNING NOTE Clinical updates sent to [facility] (P#: ; F#: ) * PT/OT/ROLL UP MACHINE OPERATOR - Mena Pleitez PTA - 04/15/2023 9:37 AM EST Physical Therapy Treatment Discharge Recommendations PT Recommendations: [facility] Care Facility 6 Clicks: Basic Mobility Turning from [...] O2, larios, abdominal binder, maxi sophia lift Telemetry/Director Of Personnel: Yes Oxygen Used: 2L O2 Other: high [...] Date/Time User Outcome 04/15/23 0936 Mena Pleitez, COIN COUNTER AND WRAPPER Not Progressing 04/12/23 0939 Mena Pleitez, COIN COUNTER AND WRAPPER Not Progressing Problem: Sitting Balance Dates: Start: 04/04/23 Disciplines: PT Goal: Improve balance to good Dates: Start: 04/04/23 Expected End: 05/03/23 Description: Static Dynamic with UE support for safe ADLs and transfers Disciplines: PT Outcomes Date/Time User Outcome 04/15/23 0936 Mena Pleitez, COIN COUNTER AND WRAPPER Not Progressing 04/12/23 0939 Mena Pleitez, COIN COUNTER AND WRAPPER Progressing Problem: Standing Balance Dates: Start: 04/04/23 [...] PT Outcomes Date/Time User Outcome 04/15/23 0936 Mean Pleitez, COIN COUNTER AND WRAPPER Not Progressing 04/12/23 0939 Mena Pleitez, COIN COUNTER AND WRAPPER Not Progressing Problem: Transfers Dates: Start: 04/04/23 Disciplines: PT Goal: Patient will perform transfers with Moderate Assist Dates: Start: 04/04/23 Expected End: 05/03/23 Description: Goal Description: sit to stand with SPH equipment/UE support Disciplines: PT Physical Therapy Care Plan (Resolved) There are no resolved problems. 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 * PT/OT/ROLL UP MACHINE OPERATOR - MARISOL Douglas - 04/15/2023 9:34 AM EST Occupational Therapy Treatment Discharge Recommendations OT Recommendations : Senior Care Facility 6 Clicks: Daily Activity Putting on [...] larios, bed alarm, repositioning sling, maxi sophia, Telemetry/Director Of Personnel: Yes Oxygen Used: 2L Other: high fall [...] Pedraza-Arredondo, JULIO/L Not Progressing 04/12/23930 Key Pedraza-Arredondo, CONTINUITY PERSON/L Progressing Problem: Bed Mobility Dates: Start: 04/04/23 Disciplines: OT Goal: Patient will perform bed mobility with Minimum Assist Dates: Start: 04/04/23 Expected End: 05/02/23 Description: Goal Description: Disciplines: OT Outcomes Date/Time User Outcome 04/15/23923 Key Pderaza-Arredondo, CONTINUITY PERSON/L Not Progressing 04/12/23930 Key Pedraza-Arredondo, CONTINUITY PERSON/L Not Progressing Problem: Other (Customize) Dates: Start: 04/04/23 Disciplines: OT Goal: Improve Dates: Start: 04/04/23 Expected End: 05/02/23 Description: Goal Description: improve assist with self care to Mod A or less Disciplines: OT Outcomes Date/Time User Outcome 04/15/23923 Key Pedraza-Arredondo, CONTINUITY PERSON/L Not Progressing 04/12/2331 Key Pedraza-Arredondo, JULIO/L Progressing Problem: ROM Dates: Start: 04/04/23 Disciplines: OT Goal: Improve ROM Dates: Start: 04/04/23 Expected End: 05/02/23 Description: Of extremity/ location: RUE as able A/AA/PROM all joints to end range of motion To facilitate: improve assist with self care and mobility tasks Disciplines: OT Outcomes Date/Time User Outcome 04/15/23923 Key Pedraza-Arredondo, JULIO/L Not Progressing 04/12/23930 Key Pedraza-Arredondo, JULIO/L Not Progressing Problem: Sitting Balance Dates: Start: 04/04/23 Disciplines: OT Goal: Improve balance to good Dates: Start: 04/04/23 Expected End: 05/02/23 Description: Static Dynamic Disciplines: OT Outcomes Date/Time User Outcome 04/15/23 0924 Key Hart, JULIO/L Not Progressing 04/12/23 0931 Key Hart JULIO/L Progressing Problem: Standing Balance Dates: Start: 04/04/23 [...] no resolved problems. 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 Encourage patient or legal solar sales representative and assessor to report early pain and ask for [...] per policy 9. Teach patient or legal solar sales representative and assessor interventions for comforting Outcome: Progressing Note: Evaluation [...] at the bedside 7. Instruct patient/ patient solar sales representative and assessor about use of safety devices 8. Include patient/ patient solar sales representative and assessor in decisions related to safety Outcome: Progressing [...] hygiene technique 7. Identify and instruct patient/patient solar sales representative and assessor in use of appropriate isolation precautionsfor identified infection/symptoms 8. Provide and discuss with patient/patient solar sales representative and assessor on educational MDRO sheet 9. Encourage and monitor nutritional status daily and consult harvesting manager if indicated 10. Implement neutropenic guidelines as [...] =/> 25 or indicated by [facility] Assessment Goal: Patient should be free from fall Description: Interventions: 1. [place] to environment 2. Hourly rounds addressing the [...] non-skid footwear 11. Teach patient and patient solar sales representative and assessor to maintain environment for safety and engage [...] (cane, walker) within reach 19. Request patient solar sales representative and assessor bring adaptive equipment/mobility aids from home or obtain and provide as needed 20. Consult pharmacy regarding effects of med's affecting mobility, cognition, and alternatives 21. Obtain physician order for PT if risk factors associated with mobility are present 22. Obtain physician order for OT as appropriate 23. Utilize diversional activities 24. Educate patient and patient solar sales representative and assessor how to maintain a safe environment during visitationtimes (notify nurse prior to leaving bedside) 25. Consider appropriateness of medical or non-back office medical assistant 26. Set up voiding schedule as appropriate [...] Description: INTERVENTIONS: 1. Encourage patient or legal solar sales representative and assessor to report early pain and ask for [...] per policy 9. Teach patient or legal solar sales representative and assessor interventions for comforting Outcome: Progressing Note: Evaluation [...] at the bedside 7. Instruct patient/ patient solar sales representative and assessor about use of safety devices 8. Include patient/ patient solar sales representative and assessor in decisions related to safety Outcome: Progressing [...] hygiene technique 7. Identify and instruct patient/patient solar sales representative and assessor in use of appropriate isolation precautionsfor identified infection/symptoms 8. Provide and discuss with patient/patient solar sales representative and assessor on educational MDRO sheet 9. Encourage and monitor nutritional status daily and consult harvesting manager if indicated 10. Implement neutropenic guidelines as needed 11. Review exposure to history of communicable disease and recent travel history on admission 12. Encourage annual influenza vaccine 13. Encourage pneumonia vaccine Outcome: Progressing Note: Evaluation of progress towards goal: Patient free from signs of infection. Afebrile. Continueto Monitor. Problem: Knowledge Deficit Goal: Patient/patient solar sales representative and assessor demonstrates understanding of disease process, treatment plan,medications, and discharge instructions Description: INTERVENTIONS 1. Complete learning assessment and assess knowledge base 2. Provide teaching at level of understanding 3. Provide teaching via preferred learning method(s) Outcome: Progressing Note: Evaluation of progress towards goal: Plan of care reviewed. Patient solar sales representative and assessor verbalizesunderstanding. Problem: Discharge Planning Goal: Discharge to [...] progress towards goal: Discharge Plan Reviewed. Patient solar sales representative and assessor verbalizes understanding. Problem: Potential for Compromised Skin [...] supplement as ordered 13. Collaborate with clinical harvesting manager 14. Include patient/ patient's solar sales representative and assessor in decisions related to nutrition Outcome: Progressing [...] be free from fall Description: Interventions: 1. [place] to environment 2. Hourly rounds addressing the [...] non-skid footwear 11. Teach patient and patient solar sales representative and assessor to maintain environment for safety and engage [...] (cane, walker) within reach 19. Request patient solar sales representative and assessor bring adaptive equipment/mobility aids from home or obtain and provide as needed 20. Consult pharmacy regarding effects of med's affecting mobility, cognition, and alternatives 21. Obtain physician order for PT if risk factors associated with mobility are present 22. Obtain physician order for OT as appropriate 23. Utilize diversional activities 24. Educate patient and patient solar sales representative and assessor how to maintain a safe environment during visitationtimes (notify nurse prior to leaving bedside) 25. Consider appropriateness of medical or non-back office medical assistant 26. Set up voiding schedule as appropriate [...] develop effective communication strategies 4. Include patient/patient solar sales representative and assessor in decisions related to communication Outcome: Progressing [...] injury from restraints (Restraint for Interference with Ostomy Nurse) Description: INTERVENTIONS: 1. Determine that other, [...] Free from restraint(s) (Restraint for Interference with Ostomy Nurse) Description: INTERVENTIONS: 1. ONCE/SHIFT or MINIMUM [...] on patient's door 9. Provide patient/ patient solar sales representative and assessor with isolation education. Outcome: Progressing Note: Evaluation of progress towards goal: Patient free from signs of infection. Afebrile. Continueto Monitor. * Plan of Care - Ethel Marshall RN - 04/14/2023 3:43 AM EST Problem: Pain Goal: Patient goal is pain score less than 4, able to rest, and participant in treatment plan as appropriate Description: INTERVENTIONS: 1. Encourage patient or legal solar sales representative and assessor to report early pain and ask for [...] per policy 9. Teach patient or legal solar sales representative and assessor interventions for comforting Outcome: Progressing Note: Evaluation [...] at the bedside 7. Instruct patient/ patient solar sales representative and assessor about use of safety devices 8. Include patient/ patient solar sales representative and assessor in decisions related to safety Outcome: Progressing Note: Evaluation of progress towards goal: Pt remains injury free & Safety measures maintained throughout shift. Hourly rounding completed. [place] precautions followed. Problem: Moderate - High Risk Fall Score Description: [place] Fall Score of =/> 25 or indicated by [facility] Assessment Goal: Patient should be free from fall Description: Interventions: 1. [place] to environment 2. Hourly rounds addressing the [...] non-skid footwear 11. Teach patient and patient solar sales representative and assessor to maintain environment for safety and engage [...] (cane, walker) within reach 19. Request patient solar sales representative and assessor bring adaptive equipment/mobility aids from home or obtain and provide as needed 20. Consult pharmacy regarding effects of med's affecting mobility, cognition, and alternatives 21. Obtain physician order for PT if risk factors associated with mobility are present 22. Obtain physician order for OT as appropriate 23. Utilize diversional activities 24. Educate patient and patient solar sales representative and assessor how to maintain a safe environment during visitationtimes (notify nurse prior to leaving bedside) 25. Consider appropriateness of medical or non-back office medical assistant 26. Set up voiding schedule as appropriate [...] Description: INTERVENTIONS: 1. Encourage patient or legal solar sales representative and assessor to report early pain and ask for [...] per policy 9. Teach patient or legal solar sales representative and assessor interventions for comforting Outcome: Progressing Note: Evaluation [...] at the bedside 7. Instruct patient/ patient solar sales representative and assessor about use of safety devices 8. Include patient/ patient solar sales representative and assessor in decisions related to safety Outcome: Progressing [...] hygiene technique 7. Identify and instruct patient/patient solar sales representative and assessor in use of appropriate isolation precautionsfor identified infection/symptoms 8. Provide and discuss with patient/patient solar sales representative and assessor on educational MDRO sheet 9. Encourage and monitor nutritional status daily and consult harvesting manager if indicated 10. Implement neutropenic guidelines as [...] Description: INTERVENTIONS: 1. Encourage patient or legal solar sales representative and assessor to report early pain and ask for [...] per policy 9. Teach patient or legal solar sales representative and assessor interventions for comforting Note: Evaluation of progress [...] at the bedside 7. Instruct patient/ patient solar sales representative and assessor about use of safety devices 8. Include patient/ patient solar sales representative and assessor in decisions related to safety Outcome: Progressing [...] hygiene technique 7. Identify and instruct patient/patient solar sales representative and assessor in use of appropriate isolation precautionsfor identified infection/symptoms 8. Provide and discuss with patient/patient solar sales representative and assessor on educational MDRO sheet 9. Encourage and monitor nutritional status daily and consult harvesting manager if indicated 10. Implement neutropenic guidelines as needed 11. Review exposure to history of communicable disease and recent travel history on admission 12. Encourage annual influenza vaccine 13. Encourage pneumonia vaccine Outcome: Progressing Note: Evaluation of progress towards goal: continue IV antibiotic Problem: Knowledge Deficit Goal: Patient/patient solar sales representative and assessor demonstrates understanding of disease process, treatment plan,medications, [...] progress towards goal: plan to d/c to [facility] Problem: Potential for Compromised Skin Integrity Goal: [...] PM EST DISCHARGE PLANNING NOTE Updates to [facility] (P#: ; F#: ) * Discharge Planning Note - GAURAV Gandhi - 04/12/2023 4:20 PM EST DISCHARGE PLANNING NOTE Discussed pt during DTR's. DC plan: Likely SNF. [facility] is following, need nutrition plan, likely PEG placement? Need to follow up with family on final SNF choice as pt will not meet IP rehab criteria at this time. Barriers: nutrition, has mitts, IV atb. SW to follow - GAURAV Gandhi 04/12/23 4:22 PM * PT/OT/ROLL UP MACHINE OPERATOR - Mena Pleitez PTA - 04/12/2023 9:43 AM EST Physical Therapy Treatment Discharge Recommendations PT Recommendations: [facility] Clicks: Basic Mobility Turning from [...] O2, larios, maxi sophia lift, chair alarm Telemetry/Director Of Personnel: Yes Oxygen Used: 2L O2 Other: high [...] Date/Time User Outcome 04/12/23 Raulito Pleitez PTA Progressing Problem: Standing Balance Dates: [...] 04/12/23 Raulito Pleitez PTA Not Progressing Problem: Transfers Dates: Start: 04/04/23 Disciplines: PT Goal: Patient will perform transfers with Moderate Assist Dates: Start: 04/04/23 Expected End: 05/03/23 Description: Goal Description: sit to stand with SPH equipment/UE support Disciplines: PT Physical Therapy Care Plan (Resolved) There are no resolved problems. Principal Problem: 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[facility]) Associated attestation - Irvin Gibbs, PT - 04/12/2023 10:33 AM EST I have reviewed and agree with this note and education documentation for this visit. * PT/OT/ROLL UP MACHINE OPERATOR - JULIO Douglas/Cyril - 04/12/2023 9:38 AM EST Occupational Therapy Treatment Discharge Recommendations OT Recommendations : [facility] Clicks: Daily Activity Putting on and taking off regular lower body clothing?: Total Bathing (including washing, rinsing, drying)?: Total Toileting, which includes using toilet, bedpan or urinal?: Total Putting on and taking off regular upper body clothing?: Total Taking care of personal grooming such as brushing teeth?: A lot Eating meals?: Total Scoring Daily Activity Raw Score: 7 CMS G Code Modifier: CM Therapy Plan Need [...] ok for therapy per ELIZABETH Adler Equipment: peg, O2, repositioning sling, chair alarm, maxi sophia, larios, Telemetry/Director Of Personnel: Yes Oxygen Used: 2L Other: high fall [...] Outcomes Date/Time User Outcome 04/12/23 0931 Key Milo-Arredondo, JULIO/L Progressing Problem: Bed Mobility Dates: Start: 04/04/23 Disciplines: OT Goal: Patient will perform bed mobility with Minimum Assist Dates: Start: 04/04/23 Expected End: 05/02/23 Description: Goal Description: Disciplines: OT Outcomes Date/Time User Outcome 04/12/23 0931 Key Milo-Arredondo, JULIO/L Not Progressing Problem: Other (Customize) Dates: Start: 04/04/23 Disciplines: OT Goal: Improve Dates: Start: 04/04/23 Expected End: 05/02/23 Description: Goal Description: improve assist with self care to Mod A or less Disciplines: OT Outcomes Date/Time User Outcome 04/12/2331 Key Milo-Arredondo, JULIO/L Progressing Problem: ROM Dates: Start: 04/04/23 Disciplines: OT Goal: Improve ROM Dates: Start: 04/04/23 Expected End: 05/02/23 Description: Of extremity/ location: RUE as able A/AA/PROM all joints to end range of motion To facilitate: improve assist with self care and mobility tasks Disciplines: OT Outcomes Date/Time User Outcome 04/12/23 0931 Key Pedraza-Arredondo, JULIO/L Not Progressing Problem: Sitting Balance Dates: Start: 04/04/23 Disciplines: OT Goal: Improve balance to good Dates: Start: 04/04/23 Expected End: 05/02/23 Description: Static Dynamic Disciplines: OT Outcomes Date/Time User Outcome 04/12/23 0931 Key Pedraza-Arredondo, JULIO/L Progressing Problem: Standing Balance Dates: Start: 04/04/23 [...] no resolved problems. Principal Problem: 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[facility]) Associated attestation - Sue Rodriguez OTR/L - 04/12/2023 11:59 AM EST I have reviewed and agree with this note and education documentation for this visit. * Query Response - Haseeb Mcnamara APRN-CANDY VENDOR - 04/12/2023 6:07 AM EST Query Response [...] to contact me. Herlinda NEVILLE, RN Clinical Sales Record Clerk [facility] Clinical Revenue Cycle Email: The patient's Clinical [...] injury from restraints (Restraint for Interference with Ostomy Nurse) Description: INTERVENTIONS: 1. Determine that other, [...] Description: INTERVENTIONS: 1. Encourage patient or legal solar sales representative and assessor to report early pain and ask for [...] per policy 9. Teach patient or legal solar sales representative and assessor interventions for comforting Outcome: Progressing Note: Evaluation [...] at the bedside 7. Instruct patient/ patient solar sales representative and assessor about use of safety devices 8. Include patient/ patient solar sales representative and assessor in decisions related to safety Outcome: Progressing Note: Evaluation of progress towards goal: Pt remains injury free & Safety measures maintained throughout shift. Family member is at bedside. Hourly rounding completed. [place] precautions followed. Problem: Moderate - High Risk Fall Score Description: [place] Fall Score of =/> 25 or indicated by [facility] Assessment Goal: Patient should be free from fall Description: Interventions: 1. [place] to environment 2. Hourly rounds addressing the [...] non-skid footwear 11. Teach patient and patient solar sales representative and assessor to maintain environment for safety and engage [...] (cane, walker) within reach 19. Request patient solar sales representative and assessor bring adaptive equipment/mobility aids from home or obtain and provide as needed 20. Consult pharmacy regarding effects of med's affecting mobility, cognition, and alternatives 21. Obtain physician order for PT if risk factors associated with mobility are present 22. Obtain physician order for OT as appropriate 23. Utilize diversional activities 24. Educate patient and patient solar sales representative and assessor how to maintain a safe environment during visitationtimes (notify nurse prior to leaving bedside) 25. Consider appropriateness of medical or non-back office medical assistant 26. Set up voiding schedule as appropriate [...] Description: INTERVENTIONS: 1. Encourage patient or legal solar sales representative and assessor to report early pain and ask for [...] per policy 9. Teach patient or legal solar sales representative and assessor interventions for comforting Outcome: Progressing Note: Evaluation [...] at the bedside 7. Instruct patient/ patient solar sales representative and assessor about use of safety devices 8. Include patient/ patient solar sales representative and assessor in decisions related to safety Outcome: Progressing [...] hygiene technique 7. Identify and instruct patient/patient solar sales representative and assessor in use of appropriate isolation precautionsfor identified infection/symptoms 8. Provide and discuss with patient/patient solar sales representative and assessor on educational MDRO sheet 9. Encourage and monitor nutritional status daily and consult harvesting manager if indicated 10. Implement neutropenic guidelines as needed 11. Review exposure to history of communicable disease and recent travel history on admission 12. Encourage annual influenza vaccine 13. Encourage pneumonia vaccine Outcome: Progressing Note: Evaluation of progress towards goal: no signs of infection at this time Problem: Knowledge Deficit Goal: Patient/patient solar sales representative and assessor demonstrates understanding of disease process, treatment plan,medications, [...] supplement as ordered 13. Collaborate with clinical harvesting manager 14. Include patient/ patient's solar sales representative and assessor in decisions related to nutrition Outcome: Progressing [...] =/> 25 or indicated by [facility] Assessment Goal: Patient should be free from fall Description: Interventions: 1. [place] to environment 2. Hourly rounds addressing the [...] non-skid footwear 11. Teach patient and patient solar sales representative and assessor to maintain environment for safety and engage [...] (cane, walker) within reach 19. Request patient solar sales representative and assessor bring adaptive equipment/mobility aids from home or obtain and provide as needed 20. Consult pharmacy regarding effects of med's affecting mobility, cognition, and alternatives 21. Obtain physician order for PT if risk factors associated with mobility are present 22. Obtain physician order for OT as appropriate 23. Utilize diversional activities 24. Educate patient and patient solar sales representative and assessor how to maintain a safe environment during visitationtimes (notify nurse prior to leaving bedside) 25. Consider appropriateness of medical or non-back office medical assistant 26. Set up voiding schedule as appropriate [...] injury from restraints (Restraint for Interference with Ostomy Nurse) Description: INTERVENTIONS: 1. Determine that other, [...] on patient's door 9. Provide patient/ patient solar sales representative and assessor with isolation education. Outcome: Progressing Note: Evaluation of progress towards goal: pt stable with transmission of infection Additional Comments: * PT/OT/ROLL UP MACHINE OPERATOR - MARISOL Douglas - 04/11/2023 1:20 PM [...] endoscopeand snare were then withdrawn. A 20 [place] PEG tube was secured to the wire [...] the felix components of the procedure. * PT/OT/ROLL UP MACHINE OPERATOR - Mena Pleitez PTA - 04/11/2023 1:00 PM EST Physical Therapy [...] Description: INTERVENTIONS: 1. Encourage patient or legal solar sales representative and assessor to report early pain and ask for [...] per policy 9. Teach patient or legal solar sales representative and assessor interventions for comforting Outcome: Progressing Note: Evaluation [...] at the bedside 7. Instruct patient/ patient solar sales representative and assessor about use of safety devices 8. Include patient/ patient solar sales representative and assessor in decisions related to safety Outcome: Progressing [...] hygiene technique 7. Identify and instruct patient/patient solar sales representative and assessor in use of appropriate isolation precautionsfor identified infection/symptoms 8. Provide and discuss with patient/patient solar sales representative and assessor on educational MDRO sheet 9. Encourage and monitor nutritional status daily and consult harvesting manager if indicated 10. Implement neutropenic guidelines as needed 11. Review exposure to history of communicable disease and recent travel history on admission 12. Encourage annual influenza vaccine 13. Encourage pneumonia vaccine Outcome: Progressing Note: Evaluation of progress towards goal: Patient remains free from signs of infection at this time. Will continue to monitor. Problem: Knowledge Deficit Goal: Patient/patient solar sales representative and assessor demonstrates understanding of disease process, treatment plan,medications, [...] supplement as ordered 13. Collaborate with clinical harvesting manager 14. Include patient/ patient's solar sales representative and assessor in decisions related to nutrition Outcome: Progressing [...] be free from fall Description: Interventions: 1. [place] to environment 2. Hourly rounds addressing the [...] non-skid footwear 11. Teach patient and patient solar sales representative and assessor to maintain environment for safety and engage [...] (cane, walker) within reach 19. Request patient solar sales representative and assessor bring adaptive equipment/mobility aids from home or obtain and provide as needed 20. Consult pharmacy regarding effects of med's affecting mobility, cognition, and alternatives 21. Obtain physician order for PT if risk factors associated with mobility are present 22. Obtain physician order for OT as appropriate 23. Utilize diversional activities 24. Educate patient and patient solar sales representative and assessor how to maintain a safe environment during visitationtimes (notify nurse prior to leaving bedside) 25. Consider appropriateness of medical or non-back office medical assistant 26. Set up voiding schedule as appropriate [...] develop effective communication strategies 4. Include patient/patient solar sales representative and assessor in decisions related to communication Outcome: Progressing [...] injury from restraints (Restraint for Interference with Ostomy Nurse) Description: INTERVENTIONS: 1. Determine that other, [...] Free from restraint(s) (Restraint for Interference with Ostomy Nurse) Description: INTERVENTIONS: 1. ONCE/SHIFT or MINIMUM [...] on patient's door 9. Provide patient/ patient solar sales representative and assessor with isolation education. Outcome: Progressing Note: Evaluation [...] maintained * Plan of Care - Nayely Raymundo RCP - 04/10/2023 7:27 PM EST Problem: Inadequate [...] EST DISCHARGE PLANNING NOTE Sent updates to [facility] (P#: ; F#: ) * Discharge Planning Note - GAURAV Gandhi - 04/10/2023 12:07 PM EST DISCHARGE PLANNING NOTE VALERIE received call from pt gómez LOCK, family is requesting IP rehab placement at [facility] IP rehab. VALERIE explained to pt gómez that currently does not appear pt will meet criteria for IPR. VALERIE explained the difference between IPR and SNF. VALERIE did request PM&R consult per family request. Will see what they recommend and will have therapy work with pt again and see how pt is doing. Otherwise [facility] has accepted pt. Awaiting nutrition plan, possible PEG placement. - GAURAV Gandhi 04/10/23 12:09 PM * Plan of Care - Angi Belle RN - 04/10/2023 7:13 AM EST Problem: Pain Goal: Patient goal is pain score less than 4, able to rest, and participant in treatment plan as appropriate Description: INTERVENTIONS: 1. Encourage patient or legal solar sales representative and assessor to report early pain and ask for [...] per policy 9. Teach patient or legal solar sales representative and assessor interventions for comforting Outcome: Progressing Note: Evaluation [...] at the bedside 7. Instruct patient/ patient solar sales representative and assessor about use of safety devices 8. Include patient/ patient solar sales representative and assessor in decisions related to safety Outcome: Progressing [...] hygiene technique 7. Identify and instruct patient/patient solar sales representative and assessor in use of appropriate isolation precautionsfor identified infection/symptoms 8. Provide and discuss with patient/patient solar sales representative and assessor on educational MDRO sheet 9. Encourage and monitor nutritional status daily and consult harvesting manager if indicated 10. Implement neutropenic guidelines as needed 11. Review exposure to history of communicable disease and recent travel history on admission 12. Encourage annual influenza vaccine 13. Encourage pneumonia vaccine Outcome: Progressing Note: Evaluation of progress towards goal: Patient remains free from signs and symptoms of infection, patient is afebrile, WBC within normal limits. Problem: Knowledge Deficit Goal: Patient/patient solar sales representative and assessor demonstrates understanding of disease process, treatment plan,medications, [...] supplement as ordered 13. Collaborate with clinical harvesting manager 14. Include patient/ patient's solar sales representative and assessor in decisions related to nutrition Outcome: Progressing [...] =/> 25 or indicated by [facility] Assessment Goal: Patient should be free from fall Description: Interventions: 1. [place] to environment 2. Hourly rounds addressing the [...] non-skid footwear 11. Teach patient and patient solar sales representative and assessor to maintain environment for safety and engage [...] (cane, walker) within reach 19. Request patient solar sales representative and assessor bring adaptive equipment/mobility aids from home or obtain and provide as needed 20. Consult pharmacy regarding effects of med's affecting mobility, cognition, and alternatives 21. Obtain physician order for PT if risk factors associated with mobility are present 22. Obtain physician order for OT as appropriate 23. Utilize diversional activities 24. Educate patient and patient solar sales representative and assessor how to maintain a safe environment during visitationtimes (notify nurse prior to leaving bedside) 25. Consider appropriateness of medical or non-back office medical assistant 26. Set up voiding schedule as appropriate [...] injury from restraints (Restraint for Interference with Ostomy Nurse) Description: INTERVENTIONS: 1. Determine that other, [...] Free from restraint(s) (Restraint for Interference with Ostomy Nurse) Description: INTERVENTIONS: 1. ONCE/SHIFT or MINIMUM [...] (CMS-HCC) Last Chest XRAY: Reviewed Pulmonary History: former [...] Description: INTERVENTIONS: 1. Encourage patient or legal solar sales representative and assessor to report early pain and ask for [...] per policy 9. Teach patient or legal solar sales representative and assessor interventions for comforting Outcome: Progressing Note: Evaluation [...] at the bedside 7. Instruct patient/ patient solar sales representative and assessor about use of safety devices 8. Include patient/ patient solar sales representative and assessor in decisions related to safety Outcome: Progressing [...] hygiene technique 7. Identify and instruct patient/patient solar sales representative and assessor in use of appropriate isolation precautionsfor identified infection/symptoms 8. Provide and discuss with patient/patient solar sales representative and assessor on educational MDRO sheet 9. Encourage and monitor nutritional status daily and consult harvesting manager if indicated 10. Implement neutropenic guidelines as needed 11. Review exposure to history of communicable disease and recent travel history on admission 12. Encourage annual influenza vaccine 13. Encourage pneumonia vaccine Outcome: Progressing Note: Evaluation of progress towards goal: Patient remains free from signs of infection at this time. Will continue to monitor. Problem: Knowledge Deficit Goal: Patient/patient solar sales representative and assessor demonstrates understanding of disease process, treatment plan,medications, [...] supplement as ordered 13. Collaborate with clinical harvesting manager 14. Include patient/ patient's solar sales representative and assessor in decisions related to nutrition Outcome: Progressing [...] be free from fall Description: Interventions: 1. [place] to environment 2. Hourly rounds addressing the [...] non-skid footwear 11. Teach patient and patient solar sales representative and assessor to maintain environment for safety and engage [...] (cane, walker) within reach 19. Request patient solar sales representative and assessor bring adaptive equipment/mobility aids from home or obtain and provide as needed 20. Consult pharmacy regarding effects of med's affecting mobility, cognition, and alternatives 21. Obtain physician order for PT if risk factors associated with mobility are present 22. Obtain physician order for OT as appropriate 23. Utilize diversional activities 24. Educate patient and patient solar sales representative and assessor how to maintain a safe environment during visitationtimes (notify nurse prior to leaving bedside) 25. Consider appropriateness of medical or non-back office medical assistant 26. Set up voiding schedule as appropriate [...] develop effective communication strategies 4. Include patient/patient solar sales representative and assessor in decisions related to communication Outcome: Progressing [...] injury from restraints (Restraint for Interference with Ostomy Nurse) Description: INTERVENTIONS: 1. Determine that other, [...] Free from restraint(s) (Restraint for Interference with Ostomy Nurse) Description: INTERVENTIONS: 1. ONCE/SHIFT or MINIMUM [...] on patient's door 9. Provide patient/ patient solar sales representative and assessor with isolation education. Outcome: Progressing Note: Evaluation [...] of progress towards goal: Airway maintained * PT/OT/ROLL UP MACHINE OPERATOR - Rosalia Murphy CCC-ROLL UP MACHINE OPERATOR - 04/09/2023 10:42 AM EST Speech Therapy [...] alternative means of nutrition and hydration Discharge: [facility] facility Precautions Aspiration precautions Plan Plan of [...] Dysphagia Problem: Swallowing Dates: Start: 04/01/23 Disciplines: ROLL UP MACHINE OPERATOR Goal: LTG: Patient will tolerate least restrictive diet recommended by ROLL UP MACHINE OPERATOR without signs and symptoms of aspiration 90% of the time Dates: Start: 04/01/23 Expected End: 05/02/23 Disciplines: ROLL UP MACHINE OPERATOR Goal: STG: Patient will complete safety strategies with minimal assistance during PO intake 90% of the time Dates: Start: 04/01/23 Expected End: 05/02/23 Disciplines: ROLL UP MACHINE OPERATOR Goal: STG: Patient will tolerate therapeutic feeding trials of advanced textures with 90% accuracy with minimal cueing Dates: Start: 04/01/23 Expected End: 05/02/23 Disciplines: ROLL UP MACHINE OPERATOR Template: ST - Rehab Speech Problem: Auditory Comprehension Dates: Start: 04/01/23 Disciplines: ROLL UP MACHINE OPERATOR Goal: LTG: Patient will comprehend communication related to basic medical and social needs and utilize compensatory strategies to maintain safety in a functional living environment Dates: Start: 04/01/23 Expected End: 05/02/23 Disciplines: ROLL UP MACHINE OPERATOR Goal: STG: Patient will answer complex yes/no questions with 90% accuracy with minimal cueing Dates: Start: 04/01/23 Expected End: 05/02/23 Disciplines: ROLL UP MACHINE OPERATOR Outcomes Date/Time User Outcome 04/09/23 1044 BARRINGTON Meneses Not Progressing Problem: Cognitive Linguistic Dates: Start: 04/01/23 Disciplines: ROLL UP MACHINE OPERATOR Goal: LTG: Patient will display functional cognitive-linguistic skills to demonstrate appropriate communication and safety within daily activities in a functional living environment Dates: Start: 04/01/23 Expected End: 05/02/23 Disciplines: ROLL UP MACHINE OPERATOR Goal: STG: Patient will recall information discussed during therapy session via retelling/answeringquestions with 90% accuracy with minimal cueing Dates: Start: 04/01/23 Expected End: 05/02/23 Disciplines: ROLL UP MACHINE OPERATOR Problem: High Level Language Dates: Start: 04/01/23 Disciplines: ROLL UP MACHINE OPERATOR Goal: LTG: Patient will demonstrate use of self-awareness, goal setting, planning, initiation, self-monitoring and problem solving during daily activities to improve safety and awareness in a functional living environment Dates: Start: 04/01/23 Expected End: 05/02/23 Disciplines: ROLL UP MACHINE OPERATOR Goal: STG: Patient will demonstrate functional problem solving and safety awareness with 90% accuracy in daily living tasks in order to increase safe interactions with environment and decrease assistance from caregivers Dates: Start: 04/01/23 Expected End: 05/02/23 Disciplines: ROLL UP MACHINE OPERATOR Goal: STG: Patient will complete simple to complex organization, scheduling, planning and reasoningtasks to improve problem solving and safety awareness with 90% accuracy with minimal cueing Dates: Start: 04/01/23 Expected End: 05/02/23 Disciplines: ROLL UP MACHINE OPERATOR Problem: Speech Production Dates: Start: 04/01/23 Disciplines: ROLL UP MACHINE OPERATOR Goal: LTG: Patient will develop functional and intelligible speech and utilize compensatory strategies through the use of adequate labial and lingual function, increased articulatory precision and speech prosody Dates: Start: 04/01/23 Expected End: 05/02/23 Disciplines: ROLL UP MACHINE OPERATOR Goal: STG: Patient will complete rapid alternating verbal sequences (tongue twisters) with improvedarticulatory precision with 90% accuracy with minimal cueing Dates: Start: 04/01/23 Expected End: 05/02/23 Disciplines: ROLL UP MACHINE OPERATOR Problem: Verbal Expression Dates: Start: 04/01/23 Disciplines: ROLL UP MACHINE OPERATOR Goal: LTG: Patient will utilize compensatory strategies to communicate wants and needs effectively to different conversational partners, maintain safety and participate socially in a functional living environment Dates: Start: 04/01/23 Expected End: 05/02/23 Disciplines: ROLL UP MACHINE OPERATOR Goal: STG: Patient will complete simple to complex divergent and convergent naming tasks with 90% accuracy with minimal cueing to improve thought organization Dates: Start: 04/01/23 Expected End: 05/02/23 Disciplines: ROLL UP MACHINE OPERATOR Outcomes Date/Time User Outcome 04/09/23 1044 BARRINGTON Meneses Not Progressing Speech Therapy Care Plan (Resolved) There are no resolved problems. Principal Problem: 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CMS-HCC) * PT/OT/ROLL UP MACHINE OPERATOR - Omar Whimtan COIN COUNTER AND WRAPPER - 04/09/2023 8:35 AM EST Physical Therapy (P) CANCEL - Deferred (per RN d/t fatigue, RN noted they will reach out if pt wakes up. Will continue per POC as able.) Associated attestation - Sun Lamb PT - 04/09/2023 11:58 AM EST I have reviewed and agree with this note and education documentation for this visit. * PT/OT/ROLL UP MACHINE OPERATOR - MARISOL Douglas - 04/09/2023 8:34 AM EST Occupational Therapy CANCEL - Deferred (per RN; RN will contact automotive service writer if pt wakes up and is [...] Description: INTERVENTIONS: 1. Encourage patient or legal solar sales representative and assessor to report early pain and ask for [...] per policy 9. Teach patient or legal solar sales representative and assessor interventions for comforting Outcome: Progressing Note: Evaluation [...] at the bedside 7. Instruct patient/ patient solar sales representative and assessor about use of safety devices 8. Include patient/ patient solar sales representative and assessor in decisions related to safety Outcome: Progressing [...] hygiene technique 7. Identify and instruct patient/patient solar sales representative and assessor in use of appropriate isolation precautionsfor identified infection/symptoms 8. Provide and discuss with patient/patient solar sales representative and assessor on educational MDRO sheet 9. Encourage and monitor nutritional status daily and consult harvesting manager if indicated 10. Implement neutropenic guidelines as needed 11. Review exposure to history of communicable disease and recent travel history on admission 12. Encourage annual influenza vaccine 13. Encourage pneumonia vaccine Outcome: Progressing Note: Evaluation of progress towards goal: Patient remains free from signs and symptoms of infection, patient is afebrile, WBC within normal limits. Problem: Knowledge Deficit Goal: Patient/patient solar sales representative and assessor demonstrates understanding of disease process, treatment plan,medications, [...] supplement as ordered 13. Collaborate with clinical harvesting manager 14. Include patient/ patient's solar sales representative and assessor in decisions related to nutrition Outcome: Progressing [...] =/> 25 or indicated by [facility] Assessment Goal: Patient should be free from fall Description: Interventions: 1. [place] to environment 2. Hourly rounds addressing the [...] non-skid footwear 11. Teach patient and patient solar sales representative and assessor to maintain environment for safety and engage [...] (cane, walker) within reach 19. Request patient solar sales representative and assessor bring adaptive equipment/mobility aids from home or obtain and provide as needed 20. Consult pharmacy regarding effects of med's affecting mobility, cognition, and alternatives 21. Obtain physician order for PT if risk factors associated with mobility are present 22. Obtain physician order for OT as appropriate 23. Utilize diversional activities 24. Educate patient and patient solar sales representative and assessor how to maintain a safe environment during visitationtimes (notify nurse prior to leaving bedside) 25. Consider appropriateness of medical or non-back office medical assistant 26. Set up voiding schedule as appropriate [...] develop effective communication strategies 4. Include patient/patient solar sales representative and assessor in decisions related to communication Outcome: Progressing [...] injury from restraints (Restraint for Interference with Ostomy Nurse) Description: INTERVENTIONS: 1. Determine that other, [...] Free from restraint(s) (Restraint for Interference with Ostomy Nurse) Description: INTERVENTIONS: 1. ONCE/SHIFT or MINIMUM [...] on patient's door 9. Provide patient/ patient solar sales representative and assessor with isolation education. Outcome: Progressing Problem: Inadequate [...] Progressing * Plan of Care - Tana Arvizu, [facility] - 04/08/2023 9:06 PM EST Problem: Inadequate [...] Description: INTERVENTIONS: 1. Encourage patient or legal solar sales representative and assessor to report early pain and ask for [...] per policy 9. Teach patient or legal solar sales representative and assessor interventions for comforting Outcome: Progressing Note: Evaluation [...] at the bedside 7. Instruct patient/ patient solar sales representative and assessor about use of safety devices 8. Include patient/ patient solar sales representative and assessor in decisions related to safety Outcome: Progressing [...] hygiene technique 7. Identify and instruct patient/patient solar sales representative and assessor in use of appropriate isolation precautionsfor identified infection/symptoms 8. Provide and discuss with patient/patient solar sales representative and assessor on educational MDRO sheet 9. Encourage and monitor nutritional status daily and consult harvesting manager if indicated 10. Implement neutropenic guidelines as needed 11. Review exposure to history of communicable disease and recent travel history on admission 12. Encourage annual influenza vaccine 13. Encourage pneumonia vaccine Outcome: Progressing Note: Evaluation of progress towards goal: Currently being treated for infection. Will continue to monitor for new signs and symptoms. Problem: Knowledge Deficit Goal: Patient/patient solar sales representative and assessor demonstrates understanding of disease process, treatment plan,medications, [...] supplement as ordered 13. Collaborate with clinical harvesting manager 14. Include patient/ patient's solar sales representative and assessor in decisions related to nutrition Outcome: Progressing [...] be free from fall Description: Interventions: 1. [place] to environment 2. Hourly rounds addressing the [...] non-skid footwear 11. Teach patient and patient solar sales representative and assessor to maintain environment for safety and engage [...] (cane, walker) within reach 19. Request patient solar sales representative and assessor bring adaptive equipment/mobility aids from home or obtain and provide as needed 20. Consult pharmacy regarding effects of med's affecting mobility, cognition, and alternatives 21. Obtain physician order for PT if risk factors associated with mobility are present 22. Obtain physician order for OT as appropriate 23. Utilize diversional activities 24. Educate patient and patient solar sales representative and assessor how to maintain a safe environment during visitationtimes (notify nurse prior to leaving bedside) 25. Consider appropriateness of medical or non-back office medical assistant 26. Set up voiding schedule as appropriate [...] develop effective communication strategies 4. Include patient/patient solar sales representative and assessor in decisions related to communication Outcome: Progressing [...] injury from restraints (Restraint for Interference with Ostomy Nurse) Description: INTERVENTIONS: 1. Determine that other, [...] Free from restraint(s) (Restraint for Interference with Ostomy Nurse) Description: INTERVENTIONS: 1. ONCE/SHIFT or MINIMUM [...] on patient's door 9. Provide patient/ patient solar sales representative and assessor with isolation education. Outcome: Progressing Note: Evaluation [...] Description: INTERVENTIONS: 1. Encourage patient or legal solar sales representative and assessor to report early pain and ask for [...] per policy 9. Teach patient or legal solar sales representative and assessor interventions for comforting Outcome: Progressing Note: Evaluation [...] at the bedside 7. Instruct patient/ patient solar sales representative and assessor about use of safety devices 8. Include patient/ patient solar sales representative and assessor in decisions related to safety Outcome: Progressing [...] hygiene technique 7. Identify and instruct patient/patient solar sales representative and assessor in use of appropriate isolation precautionsfor identified infection/symptoms 8. Provide and discuss with patient/patient solar sales representative and assessor on educational MDRO sheet 9. Encourage and monitor nutritional status daily and consult harvesting manager if indicated 10. Implement neutropenic guidelines as needed 11. Review exposure to history of communicable disease and recent travel history on admission 12. Encourage annual influenza vaccine 13. Encourage pneumonia vaccine Outcome: Progressing Note: Evaluation of progress towards goal: No new signs or symptoms of infection this shift, monitoring labs and vitals Problem: Knowledge Deficit Goal: Patient/patient solar sales representative and assessor demonstrates understanding of disease process, treatment plan,medications, [...] supplement as ordered 13. Collaborate with clinical harvesting manager 14. Include patient/ patient's solar sales representative and assessor in decisions related to nutrition Outcome: Progressing [...] be free from fall Description: Interventions: 1. [place] to environment 2. Hourly rounds addressing the [...] non-skid footwear 11. Teach patient and patient solar sales representative and assessor to maintain environment for safety and engage [...] (cane, walker) within reach 19. Request patient solar sales representative and assessor bring adaptive equipment/mobility aids from home or obtain and provide as needed 20. Consult pharmacy regarding effects of med's affecting mobility, cognition, and alternatives 21. Obtain physician order for PT if risk factors associated with mobility are present 22. Obtain physician order for OT as appropriate 23. Utilize diversional activities 24. Educate patient and patient solar sales representative and assessor how to maintain a safe environment during visitationtimes (notify nurse prior to leaving bedside) 25. Consider appropriateness of medical or non-back office medical assistant 26. Set up voiding schedule as appropriate [...] develop effective communication strategies 4. Include patient/patient solar sales representative and assessor in decisions related to communication Outcome: Progressing [...] injury from restraints (Restraint for Interference with Ostomy Nurse) Description: INTERVENTIONS: 1. Determine that other, [...] Free from restraint(s) (Restraint for Interference with Ostomy Nurse) Description: INTERVENTIONS: 1. ONCE/SHIFT or MINIMUM [...] Description: INTERVENTIONS: 1. Encourage patient or legal solar sales representative and assessor to report early pain and ask for [...] per policy 9. Teach patient or legal solar sales representative and assessor interventions for comforting Outcome: Progressing Note: Evaluation [...] at the bedside 7. Instruct patient/ patient solar sales representative and assessor about use of safety devices 8. Include patient/ patient solar sales representative and assessor in decisions related to safety Outcome: Progressing [...] hygiene technique 7. Identify and instruct patient/patient solar sales representative and assessor in use of appropriate isolation precautionsfor identified infection/symptoms 8. Provide and discuss with patient/patient solar sales representative and assessor on educational MDRO sheet 9. Encourage and monitor nutritional status daily and consult harvesting manager if indicated 10. Implement neutropenic guidelines as needed 11. Review exposure to history of communicable disease and recent travel history on admission 12. Encourage annual influenza vaccine 13. Encourage pneumonia vaccine Outcome: Progressing Note: Evaluation of progress towards goal: Patient remains free from signs of infection at this time. Will continue to monitor. Problem: Knowledge Deficit Goal: Patient/patient solar sales representative and assessor demonstrates understanding of disease process, treatment plan,medications, [...] supplement as ordered 13. Collaborate with clinical harvesting manager 14. Include patient/ patient's solar sales representative and assessor in decisions related to nutrition Outcome: Progressing [...] =/> 25 or indicated by [facility] Assessment Goal: Patient should be free from fall Description: Interventions: 1. [place] to environment 2. Hourly rounds addressing the [...] non-skid footwear 11. Teach patient and patient solar sales representative and assessor to maintain environment for safety and engage [...] (cane, walker) within reach 19. Request patient solar sales representative and assessor bring adaptive equipment/mobility aids from home or obtain and provide as needed 20. Consult pharmacy regarding effects of med's affecting mobility, cognition, and alternatives 21. Obtain physician order for PT if risk factors associated with mobility are present 22. Obtain physician order for OT as appropriate 23. Utilize diversional activities 24. Educate patient and patient solar sales representative and assessor how to maintain a safe environment during visitationtimes (notify nurse prior to leaving bedside) 25. Consider appropriateness of medical or non-back office medical assistant 26. Set up voiding schedule as appropriate [...] develop effective communication strategies 4. Include patient/patient solar sales representative and assessor in decisions related to communication Outcome: Progressing [...] injury from restraints (Restraint for Interference with Ostomy Nurse) Description: INTERVENTIONS: 1. Determine that other, [...] Free from restraint(s) (Restraint for Interference with Ostomy Nurse) Description: INTERVENTIONS: 1. ONCE/SHIFT or MINIMUM [...] on patient's door 9. Provide patient/ patient solar sales representative and assessor with isolation education. Outcome: Progressing Note: Evaluation [...] cannula. * Plan of Care - Aliza Coulter, [facility] - 04/07/2023 8:37 AM EST Problem: Inadequate [...] Description: INTERVENTIONS: 1. Encourage patient or legal solar sales representative and assessor to report early pain and ask for [...] per policy 9. Teach patient or legal solar sales representative and assessor interventions for comforting Outcome: Progressing Note: Evaluation [...] at the bedside 7. Instruct patient/ patient solar sales representative and assessor about use of safety devices 8. Include patient/ patient solar sales representative and assessor in decisions related to safety Outcome: Progressing [...] hygiene technique 7. Identify and instruct patient/patient solar sales representative and assessor in use of appropriate isolation precautionsfor identified infection/symptoms 8. Provide and discuss with patient/patient solar sales representative and assessor on educational MDRO sheet 9. Encourage and monitor nutritional status daily and consult harvesting manager if indicated 10. Implement neutropenic guidelines as needed 11. Review exposure to history of communicable disease and recent travel history on admission 12. Encourage annual influenza vaccine 13. Encourage pneumonia vaccine Outcome: Progressing Note: Evaluation of progress towards goal: pt is afebrile at this time Problem: Knowledge Deficit Goal: Patient/patient solar sales representative and assessor demonstrates understanding of disease process, treatment plan,medications, [...] supplement as ordered 13. Collaborate with clinical harvesting manager 14. Include patient/ patient's solar sales representative and assessor in decisions related to nutrition Outcome: Progressing [...] =/> 25 or indicated by [facility] Assessment Goal: Patient should be free from fall Description: Interventions: 1. [place] to environment 2. Hourly rounds addressing the [...] non-skid footwear 11. Teach patient and patient solar sales representative and assessor to maintain environment for safety and engage [...] (cane, walker) within reach 19. Request patient solar sales representative and assessor bring adaptive equipment/mobility aids from home or obtain and provide as needed 20. Consult pharmacy regarding effects of med's affecting mobility, cognition, and alternatives 21. Obtain physician order for PT if risk factors associated with mobility are present 22. Obtain physician order for OT as appropriate 23. Utilize diversional activities 24. Educate patient and patient solar sales representative and assessor how to maintain a safe environment during visitationtimes (notify nurse prior to leaving bedside) 25. Consider appropriateness of medical or non-back office medical assistant 26. Set up voiding schedule as appropriate [...] develop effective communication strategies 4. Include patient/patient solar sales representative and assessor in decisions related to communication Outcome: Progressing [...] injury from restraints (Restraint for Interference with Ostomy Nurse) Description: INTERVENTIONS: 1. Determine that other, [...] Free from restraint(s) (Restraint for Interference with Ostomy Nurse) Description: INTERVENTIONS: 1. ONCE/SHIFT or MINIMUM [...] on patient's door 9. Provide patient/ patient solar sales representative and assessor with isolation education. Outcome: Progressing Note: Evaluation [...] Additional Comments: * Plan of Care - Caorl Waite RN - 04/06/2023 8:54 PM EST [...] Free from restraint(s) (Restraint for Interference with Ostomy Nurse) Description: INTERVENTIONS: 1. ONCE/SHIFT or MINIMUM [...] Description: INTERVENTIONS: 1. Encourage patient or legal solar sales representative and assessor to report early pain and ask for [...] per policy 9. Teach patient or legal solar sales representative and assessor interventions for comforting Outcome: Progressing Note: Evaluation [...] at the bedside 7. Instruct patient/ patient solar sales representative and assessor about use of safety devices 8. Include patient/ patient solar sales representative and assessor in decisions related to safety Outcome: Progressing [...] hygiene technique 7. Identify and instruct patient/patient solar sales representative and assessor in use of appropriate isolation precautionsfor identified infection/symptoms 8. Provide and discuss with patient/patient solar sales representative and assessor on educational MDRO sheet 9. Encourage and monitor nutritional status daily and consult harvesting manager if indicated 10. Implement neutropenic guidelines as needed 11. Review exposure to history of communicable disease and recent travel history on admission 12. Encourage annual influenza vaccine 13. Encourage pneumonia vaccine Outcome: Progressing Note: Evaluation of progress towards goal: Patient remains free from signs of infection at this time. Problem: Knowledge Deficit Goal: Patient/patient solar sales representative and assessor demonstrates understanding of disease process, treatment plan,medications, [...] supplement as ordered 13. Collaborate with clinical harvesting manager 14. Include patient/ patient's solar sales representative and assessor in decisions related to nutrition Outcome: Progressing [...] be free from fall Description: Interventions: 1. [place] to environment 2. Hourly rounds addressing the [...] non-skid footwear 11. Teach patient and patient solar sales representative and assessor to maintain environment for safety and engage [...] (cane, walker) within reach 19. Request patient solar sales representative and assessor bring adaptive equipment/mobility aids from home or obtain and provide as needed 20. Consult pharmacy regarding effects of med's affecting mobility, cognition, and alternatives 21. Obtain physician order for PT if risk factors associated with mobility are present 22. Obtain physician order for OT as appropriate 23. Utilize diversional activities 24. Educate patient and patient solar sales representative and assessor how to maintain a safe environment during visitationtimes (notify nurse prior to leaving bedside) 25. Consider appropriateness of medical or non-back office medical assistant 26. Set up voiding schedule as appropriate [...] develop effective communication strategies 4. Include patient/patient solar sales representative and assessor in decisions related to communication Outcome: Progressing [...] Collaborate with ancillary departments 14. Include patient/patient solar sales representative and assessor in decisions related to anxiety Outcome: Progressing [...] care 6. Collaborate with pastoral/spiritual care, social studies department chair, mental health counselor as needed. 7. Instruct patient on diversional activities such as physical activity, distraction, and deep breathing exercises to assist with coping 8. Involve patient's solar sales representative and assessor in care Outcome: Progressing Note: Evaluation of [...] injury from restraints (Restraint for Interference with Ostomy Nurse) Description: INTERVENTIONS: 1. Determine that other, [...] on patient's door 9. Provide patient/ patient solar sales representative and assessor with isolation education. Outcome: Progressing Note: Evaluation [...] EST DISCHARGE PLANNING NOTE Referral sent to [facility] (P#: ; F#: ). * [...] [facility] Patient risk for readmission is at 13.9 Patient has a history of tobacco use, no ETOH use or illicit drug usage and denies current use of tobacco in any form. Past Medical History: Diagnosis Date AAA (abdominal aortic aneurysm) ([facility]) was surgically taken care of 09/2018 GERD [...] on need to follow up with PCP [id number] days from discharge. Verified pharmacy of choice. Patient goal is to safely transition to a facility for rehab. Patient has no home care, DME or community resource currently in place. Therapy has recommended- a [facility] facility To reduce risk of readmission the follow discharge plan has been arranged to reduce risk. Discussedneed for rehab following hospital stay and POA agrees with skilled level. List provided and referrals sent to choices [facility] and [facility]. She called back wants [facility] as first choice. Discussed if swallow does not improve may need tube in nose removed for comfort and placed in stomach until swallow able to improve more. Care navigation team to follow up and continue to assist with discharge needs. The following tasks/referrals sent: Discharge plan- SNF awaiting acceptance at [facility] or [facility] her [place] is POA of healthcare and will make decision on location once she here who all can accept. she is open to peg tube if unable to pass for a diet still has NG in place asked facilities if can accept with it. she will need no precert but acceptance/ HENS/ and BLS ride to facility upon discharge. 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 Herlinda NEVILLE, RN Clinical Sales Record Clerk [facility] Clinical Revenue Cycle Email: [email or web address] The patient's Clinical Indicators include: See Query. CDI RESPONSE TEXT: CC: Acute toxic/metabolic encephalopathy Query created by: Leonila Leonard on 04/04/2023 11:59 AM Electronically signed by: Poly Shahid MD 04/04/2023 12:15 PM * PT/OT/ROLL UP MACHINE OPERATOR - BATSHEVA MenesesROLL UP MACHINE OPERATOR - 04/04/2023 11:31 AM EST Speech Therapy CANCEL - Deferred Per RN pt not appropriate for PO today. Will check back as able. * PT/OT/ROLL UP MACHINE OPERATOR - Sun Lamb PT - 04/04/2023 11:16 AM EST Physical Therapy Evaluation Discharge Recommendations PT Recommendations: [facility]ECF Comments: due to decline in [...] 6 Clicks: Basic Mobility Raw Score: 6 [facility] G Code Modifier: CN SwePASS score = [...] History: Diagnosis Date AAA (abdominal aortic aneurysm) ([facility]) was surgically taken care of 09/2018 GERD [...] 05/26/2019 Performed by Caro Pollard DO at [facility] Modified [place] Level of Disability: Severe disability 0= No [...] feed, O2, larios catheter, L hand mitt Telemetry/Director Of Personnel: Yes Oxygen Used: 2L O2 Other: high [...] no resolved problems. Principal Problem: 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[facility]) * PT/OT/ROLL UP MACHINE OPERATOR - Antolin Rodriguez, OTR/L - 04/04/2023 11:15 AM EST Occupational Therapy Evaluation Discharge Recommendations OT Recommendations : [facility] SNF[facility]ECF Comments: Due to deficits with [...] 05/26/2019 Performed by Caro Pollard DO at [facility] Past Medical History: Diagnosis Date AAA (abdominal aortic aneurysm) ([facility]) was surgically taken care of 09/2018 GERD [...] Total Scoring Daily Activity Raw Score: 6 [facility] G Code Modifier: CN Modified [place] Level of Disability: Severe disability [...] bed alarm, L sarah for hand, NG Telemetry/Director Of Personnel: Yes Oxygen Used: 2L Other: fall risk, [...] no resolved problems. Principal Problem: 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[facility]) * Plan of Care - Nayely Kaur RN - 04/04/2023 11:02 AM EST Problem: Pain Goal: Patient goal is pain score less than 4, able to rest, and participant in treatment plan as appropriate Description: INTERVENTIONS: 1. Encourage patient or legal solar sales representative and assessor to report early pain and ask for [...] per policy 9. Teach patient or legal solar sales representative and assessor interventions for comforting Outcome: Progressing Note: Evaluation [...] at the bedside 7. Instruct patient/ patient solar sales representative and assessor about use of safety devices 8. Include patient/ patient solar sales representative and assessor in decisions related to safety Outcome: Progressing [...] hygiene technique 7. Identify and instruct patient/patient solar sales representative and assessor in use of appropriate isolation precautionsfor identified infection/symptoms 8. Provide and discuss with patient/patient solar sales representative and assessor on educational MDRO sheet 9. Encourage and monitor nutritional status daily and consult harvesting manager if indicated 10. Implement neutropenic guidelines as needed 11. Review exposure to history of communicable disease and recent travel history on admission 12. Encourage annual influenza vaccine 13. Encourage pneumonia vaccine Outcome: Progressing Note: Evaluation of progress towards goal: No signs or symptoms of infection, daily labs monitored,patient is afebrile Problem: Knowledge Deficit Goal: Patient/patient solar sales representative and assessor demonstrates understanding of disease process, treatment plan,medications, [...] supplement as ordered 13. Collaborate with clinical harvesting manager 14. Include patient/ patient's solar sales representative and assessor in decisions related to nutrition Outcome: Progressing [...] =/> 25 or indicated by [facility] Assessment Goal: Patient should be free from fall Description: Interventions: 1. [place] to environment 2. Hourly rounds addressing the [...] non-skid footwear 11. Teach patient and patient solar sales representative and assessor to maintain environment for safety and engage [...] (cane, walker) within reach 19. Request patient solar sales representative and assessor bring adaptive equipment/mobility aids from home or obtain and provide as needed 20. Consult pharmacy regarding effects of med's affecting mobility, cognition, and alternatives 21. Obtain physician order for PT if risk factors associated with mobility are present 22. Obtain physician order for OT as appropriate 23. Utilize diversional activities 24. Educate patient and patient solar sales representative and assessor how to maintain a safe environment during visitationtimes (notify nurse prior to leaving bedside) 25. Consider appropriateness of medical or non-back office medical assistant 26. Set up voiding schedule as appropriate [...] develop effective communication strategies 4. Include patient/patient solar sales representative and assessor in decisions related to communication Outcome: Progressing [...] Collaborate with ancillary departments 14. Include patient/patient solar sales representative and assessor in decisions related to anxiety Outcome: Progressing [...] care 6. Collaborate with pastoral/spiritual care, social studies department chair, mental health counselor as needed. 7. Instruct patient on diversional activities such as physical activity, distraction, and deep breathing exercises to assist with coping 8. Involve patient's solar sales representative and assessor in care Outcome: Progressing Note: Evaluation of [...] injury from restraints (Restraint for Interference with Ostomy Nurse) Description: INTERVENTIONS: 1. Determine that other, [...] Free from restraint(s) (Restraint for Interference with Ostomy Nurse) Description: INTERVENTIONS: 1. ONCE/SHIFT or MINIMUM [...] on patient's door 9. Provide patient/ patient solar sales representative and assessor with isolation education. Outcome: Progressing Note: Evaluation [...] Description: INTERVENTIONS: 1. Encourage patient or legal solar sales representative and assessor to report early pain and ask for [...] per policy 9. Teach patient or legal solar sales representative and assessor interventions for comforting Outcome: Progressing Note: Evaluation [...] at the bedside 7. Instruct patient/ patient solar sales representative and assessor about use of safety devices 8. Include patient/ patient solar sales representative and assessor in decisions related to safety Outcome: Progressing [...] hygiene technique 7. Identify and instruct patient/patient solar sales representative and assessor in use of appropriate isolation precautionsfor identified infection/symptoms 8. Provide and discuss with patient/patient solar sales representative and assessor on educational MDRO sheet 9. Encourage and monitor nutritional status daily and consult harvesting manager if indicated 10. Implement neutropenic guidelines as needed 11. Review exposure to history of communicable disease and recent travel history on admission 12. Encourage annual influenza vaccine 13. Encourage pneumonia vaccine Outcome: Progressing Note: Evaluation of progress towards goal: Patient afebrile at this time and shows no other signs or symptoms of infection. Problem: Knowledge Deficit Goal: Patient/patient solar sales representative and assessor demonstrates understanding of disease process, treatment plan,medications, [...] supplement as ordered 13. Collaborate with clinical harvesting manager 14. Include patient/ patient's solar sales representative and assessor in decisions related to nutrition Outcome: Progressing [...] be free from fall Description: Interventions: 1. [place] to environment 2. Hourly rounds addressing the [...] non-skid footwear 11. Teach patient and patient solar sales representative and assessor to maintain environment for safety and engage [...] (cane, walker) within reach 19. Request patient solar sales representative and assessor bring adaptive equipment/mobility aids from home or obtain and provide as needed 20. Consult pharmacy regarding effects of med's affecting mobility, cognition, and alternatives 21. Obtain physician order for PT if risk factors associated with mobility are present 22. Obtain physician order for OT as appropriate 23. Utilize diversional activities 24. Educate patient and patient solar sales representative and assessor how to maintain a safe environment during visitationtimes (notify nurse prior to leaving bedside) 25. Consider appropriateness of medical or non-back office medical assistant 26. Set up voiding schedule as appropriate [...] develop effective communication strategies 4. Include patient/patient solar sales representative and assessor in decisions related to communication Outcome: Progressing [...] Collaborate with ancillary departments 14. Include patient/patient solar sales representative and assessor in decisions related to anxiety Outcome: Progressing [...] care 6. Collaborate with pastoral/spiritual care, social studies department chair, mental health counselor as needed. 7. Instruct patient on diversional activities such as physical activity, distraction, and deep breathing exercises to assist with coping 8. Involve patient's solar sales representative and assessor in care Outcome: Progressing Note: Evaluation of [...] injury from restraints (Restraint for Interference with Ostomy Nurse) Description: INTERVENTIONS: 1. Determine that other, [...] Free from restraint(s) (Restraint for Interference with Ostomy Nurse) Description: INTERVENTIONS: 1. ONCE/SHIFT or MINIMUM [...] on patient's door 9. Provide patient/ patient solar sales representative and assessor with isolation education. 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 Encourage patient or legal solar sales representative and assessor to report early pain and ask for [...] per policy 9. Teach patient or legal solar sales representative and assessor interventions for comforting Outcome: Progressing Note: Evaluation [...] at the bedside 7. Instruct patient/ patient solar sales representative and assessor about use of safety devices 8. Include patient/ patient solar sales representative and assessor in decisions related to safety Outcome: Progressing [...] hygiene technique 7. Identify and instruct patient/patient solar sales representative and assessor in use of appropriate isolation precautionsfor identified infection/symptoms 8. Provide and discuss with patient/patient solar sales representative and assessor on educational MDRO sheet 9. Encourage and monitor nutritional status daily and consult harvesting manager if indicated 10. Implement neutropenic guidelines as needed 11. Review exposure to history of communicable disease and recent travel history on admission 12. Encourage annual influenza vaccine 13. Encourage pneumonia vaccine Outcome: Progressing Note: Evaluation of progress towards goal: Patient remains free from signs and symptoms of infection, patient is afebrile, WBC within normal limits. Problem: Knowledge Deficit Goal: Patient/patient solar sales representative and assessor demonstrates understanding of disease process, treatment plan,medications, [...] supplement as ordered 13. Collaborate with clinical harvesting manager 14. Include patient/ patient's solar sales representative and assessor in decisions related to nutrition Outcome: Progressing [...] be free from fall Description: Interventions: 1. [place] to environment 2. Hourly rounds addressing the [...] non-skid footwear 11. Teach patient and patient solar sales representative and assessor to maintain environment for safety and engage [...] (cane, walker) within reach 19. Request patient solar sales representative and assessor bring adaptive equipment/mobility aids from home or obtain and provide as needed 20. Consult pharmacy regarding effects of med's affecting mobility, cognition, and alternatives 21. Obtain physician order for PT if risk factors associated with mobility are present 22. Obtain physician order for OT as appropriate 23. Utilize diversional activities 24. Educate patient and patient solar sales representative and assessor how to maintain a safe environment during visitationtimes (notify nurse prior to leaving bedside) 25. Consider appropriateness of medical or non-back office medical assistant 26. Set up voiding schedule as appropriate [...] injury from restraints (Restraint for Interference with Ostomy Nurse) Description: INTERVENTIONS: 1. Determine that other, [...] Description: INTERVENTIONS: 1. Encourage patient or legal solar sales representative and assessor to report early pain and ask for [...] per policy 9. Teach patient or legal solar sales representative and assessor interventions for comforting Outcome: Progressing Note: Evaluation [...] at the bedside 7. Instruct patient/ patient solar sales representative and assessor about use of safety devices 8. Include patient/ patient solar sales representative and assessor in decisions related to safety Outcome: Progressing [...] hygiene technique 7. Identify and instruct patient/patient solar sales representative and assessor in use of appropriate isolation precautionsfor identified infection/symptoms 8. Provide and discuss with patient/patient solar sales representative and assessor on educational MDRO sheet 9. Encourage and monitor nutritional status daily and consult harvesting manager if indicated 10. Implement neutropenic guidelines as needed 11. Review exposure to history of communicable disease and recent travel history on admission 12. Encourage annual influenza vaccine 13. Encourage pneumonia vaccine Outcome: Progressing Note: Evaluation of progress towards goal: Patient is afebrile, lines/tubes/ and drains remain freefrom kinks, staff maintaining proper hand hygiene, medications administered as ordered Problem: Knowledge Deficit Goal: Patient/patient solar sales representative and assessor demonstrates understanding of disease process, treatment plan,medications, [...] Description: INTERVENTIONS: 1. Encourage patient or legal solar sales representative and assessor to report early pain and ask for [...] per policy 9. Teach patient or legal solar sales representative and assessor interventions for comforting Outcome: Progressing Note: Evaluation [...] at the bedside 7. Instruct patient/ patient solar sales representative and assessor about use of safety devices 8. Include patient/ patient solar sales representative and assessor in decisions related to safety Outcome: Progressing [...] hygiene technique 7. Identify and instruct patient/patient solar sales representative and assessor in use of appropriate isolation precautionsfor identified infection/symptoms 8. Provide and discuss with patient/patient solar sales representative and assessor on educational MDRO sheet 9. Encourage and monitor nutritional status daily and consult harvesting manager if indicated 10. Implement neutropenic guidelines as [...] as necessary. Problem: Knowledge Deficit Goal: Patient/patient solar sales representative and assessor demonstrates understanding of disease process, treatment plan,medications, [...] supplement as ordered 13. Collaborate with clinical harvesting manager 14. Include patient/ patient's solar sales representative and assessor in decisions related to nutrition Outcome: Progressing [...] be free from fall Description: Interventions: 1. [place] to environment 2. Hourly rounds addressing the [...] non-skid footwear 11. Teach patient and patient solar sales representative and assessor to maintain environment for safety and engage [...] (cane, walker) within reach 19. Request patient solar sales representative and assessor bring adaptive equipment/mobility aids from home or obtain and provide as needed 20. Consult pharmacy regarding effects of med's affecting mobility, cognition, and alternatives 21. Obtain physician order for PT if risk factors associated with mobility are present 22. Obtain physician order for OT as appropriate 23. Utilize diversional activities 24. Educate patient and patient solar sales representative and assessor how to maintain a safe environment during visitationtimes (notify nurse prior to leaving bedside) 25. Consider appropriateness of medical or non-back office medical assistant 26. Set up voiding schedule as appropriate [...] develop effective communication strategies 4. Include patient/patient solar sales representative and assessor in decisions related to communication Outcome: Progressing [...] Collaborate with ancillary departments 14. Include patient/patient solar sales representative and assessor in decisions related to anxiety Outcome: Progressing [...] care 6. Collaborate with pastoral/spiritual care, social studies department chair, mental health counselor as needed. 7. Instruct patient on diversional activities such as physical activity, distraction, and deep breathing exercises to assist with coping 8. Involve patient's solar sales representative and assessor in care Outcome: Progressing Note: Evaluation of [...] Note: Evaluation of progress towards goal: * PT/OT/ROLL UP MACHINE OPERATOR - BATSHEVA PalmROLL UP MACHINE OPERATOR - 04/02/2023 8:30 AM EST Speech Therapy CANCEL - Deferred VFSS on hold as pt is too lethargic. * PT/OT/ROLL UP MACHINE OPERATOR - Sun Lamb PT - 04/02/2023 7:53 AM EST Physical Therapy (P) CANCEL - Deferred (hold medical status - new brain bleed) Will check back as appropriate. * PT/OT/ROLL UP MACHINE OPERATOR - GARFIELD West - 04/02/2023 7:06 AM EST Occupational Therapy CANCEL - Deferred (hold - patient has L BG IPH with CANDI and new imaging noted as of 04/02 with B [facility]) * Plan of Care - Shen Chacko RN - 04/01/2023 8:51 PM EST Problem: Pain Goal: Patient goal is pain score less than 4, able to rest, and participant in treatment plan as appropriate Description: INTERVENTIONS: 1. Encourage patient or legal solar sales representative and assessor to report early pain and ask for [...] per policy 9. Teach patient or legal solar sales representative and assessor interventions for comforting Outcome: Progressing Note: Evaluation [...] at the bedside 7. Instruct patient/ patient solar sales representative and assessor about use of safety devices 8. Include patient/ patient solar sales representative and assessor in decisions related to safety Outcome: Progressing [...] hygiene technique 7. Identify and instruct patient/patient solar sales representative and assessor in use of appropriate isolation precautionsfor identified infection/symptoms 8. Provide and discuss with patient/patient solar sales representative and assessor on educational MDRO sheet 9. Encourage and monitor nutritional status daily and consult harvesting manager if indicated 10. Implement neutropenic guidelines as [...] supplement as ordered 13. Collaborate with clinical harvesting manager 14. Include patient/ patient's solar sales representative and assessor in decisions related to nutrition Outcome: Not Progressing Note: Evaluation of progress towards goal: Patient failed bedside swallow, Buffer Inflated Pad defers aba, RE: expects patient to become [...] no performance of any self ADL's. * PT/OT/ROLL UP MACHINE OPERATOR - Ch[place] Espinal CCC-ROLL UP MACHINE OPERATOR - 04/01/2023 7:55 AM EST Speech Therapy [...] determine safety of swallow. Prognosis Services: Skilled ROLL UP MACHINE OPERATOR services to address above deficits Prognosis/Potential: Good [...] complete SLUMS and PHQ2. Prognosis Services: Skilled ROLL UP MACHINE OPERATOR services to address the above deficits Prognosis/Potential: [...] Dysphagia Problem: Swallowing Dates: Start: 04/01/23 Disciplines: ROLL UP MACHINE OPERATOR Goal: LTG: Patient will tolerate least restrictive diet recommended by ROLL UP MACHINE OPERATOR without signs and symptoms of aspiration 90% of the time Dates: Start: 04/01/23 Expected End: 05/02/23 Disciplines: ROLL UP MACHINE OPERATOR Goal: STG: Patient will complete safety strategies with minimal assistance during PO intake 90% of the time Dates: Start: 04/01/23 Expected End: 05/02/23 Disciplines: ROLL UP MACHINE OPERATOR Goal: STG: Patient will tolerate therapeutic feeding trials of advanced textures with 90% accuracy with minimal cueing Dates: Start: 04/01/23 Expected End: 05/02/23 Disciplines: ROLL UP MACHINE OPERATOR Template: ST - Rehab Speech Problem: Auditory Comprehension Dates: Start: 04/01/23 Disciplines: ROLL UP MACHINE OPERATOR Goal: LTG: Patient will comprehend communication related to basic medical and social needs and utilize compensatory strategies to maintain safety in a functional living environment Dates: Start: 04/01/23 Expected End: 05/02/23 Disciplines: ROLL UP MACHINE OPERATOR Goal: STG: Patient will answer complex yes/no questions with 90% accuracy with minimal cueing Dates: Start: 04/01/23 Expected End: 05/02/23 Disciplines: ROLL UP MACHINE OPERATOR Problem: Cognitive Linguistic Dates: Start: 04/01/23 Disciplines: ROLL UP MACHINE OPERATOR Goal: LTG: Patient will display functional cognitive-linguistic skills to demonstrate appropriate communication and safety within daily activities in a functional living environment Dates: Start: 04/01/23 Expected End: 05/02/23 Disciplines: ROLL UP MACHINE OPERATOR Goal: STG: Patient will recall information discussed during therapy session via retelling/answeringquestions with 90% accuracy with minimal cueing Dates: Start: 04/01/23 Expected End: 05/02/23 Disciplines: ROLL UP MACHINE OPERATOR Problem: High Level Language Dates: Start: 04/01/23 Disciplines: ROLL UP MACHINE OPERATOR Goal: LTG: Patient will demonstrate use of self-awareness, goal setting, planning, initiation, self-monitoring and problem solving during daily activities to improve safety and awareness in a functional living environment Dates: Start: 04/01/23 Expected End: 05/02/23 Disciplines: ROLL UP MACHINE OPERATOR Goal: STG: Patient will demonstrate functional problem solving and safety awareness with 90% accuracy in daily living tasks in order to increase safe interactions with environment and decrease assistance from caregivers Dates: Start: 04/01/23 Expected End: 05/02/23 Disciplines: ROLL UP MACHINE OPERATOR Goal: STG: Patient will complete simple to complex organization, scheduling, planning and reasoningtasks to improve problem solving and safety awareness with 90% accuracy with minimal cueing Dates: Start: 04/01/23 Expected End: 05/02/23 Disciplines: ROLL UP MACHINE OPERATOR Problem: Speech Production Dates: Start: 04/01/23 Disciplines: ROLL UP MACHINE OPERATOR Goal: LTG: Patient will develop functional and intelligible speech and utilize compensatory strategies through the use of adequate labial and lingual function, increased articulatory precision and speech prosody Dates: Start: 04/01/23 Expected End: 05/02/23 Disciplines: ROLL UP MACHINE OPERATOR Goal: STG: Patient will complete rapid alternating verbal sequences (tongue twisters) with improvedarticulatory precision with 90% accuracy with minimal cueing Dates: Start: 04/01/23 Expected End: 05/02/23 Disciplines: ROLL UP MACHINE OPERATOR Problem: Verbal Expression Dates: Start: 04/01/23 Disciplines: ROLL UP MACHINE OPERATOR Goal: LTG: Patient will utilize compensatory strategies to communicate wants and needs effectively to different conversational partners, maintain safety and participate socially in a functional living environment Dates: Start: 04/01/23 Expected End: 05/02/23 Disciplines: ROLL UP MACHINE OPERATOR Goal: STG: Patient will complete simple to complex divergent and convergent naming tasks with 90% accuracy with minimal cueing to improve thought organization Dates: Start: 04/01/23 Expected End: 05/02/23 Disciplines: ROLL UP MACHINE OPERATOR Speech Therapy Care Plan (Resolved) There are no resolved problems. Principal Problem: 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CMS-HCC) [facility] course Narrative* Artemio Ray MD - 04/16/2023 5:12 PM EST Images from the original note were not included. 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 Discharge Disposition Home Code Status at Discharge: Full Active Issues Requiring Follow-up Issue: Stroke Responsible Individual: Neurologist What is Needed: Appointment Follow-up Appointments Arranged: Message sent to clinical coordinator Outpatient Follow-Up Future Appointments Date Time Provider Department Center 05/23/2023 1:30 PM Farzana Wu MD [facility] NEURO NSC Referrals and Follow-ups [...] Presenting Problem/History of Present Illness 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[facility]) [I61.0] Bradycardia [R00.1] Ellen Chan is a [...] less than 140 and was transferred to [facility] neuro ICU for further management. On arrival, [...] prompting the patient to be transferred to [place] for furthercare. Patient admitted to the neuro [...] to 12.5. Patient off Cardene. Therapy recommending [facility] facility. 04/05: Neurosurgery signed off. Transfer to [facility]. Lisinopril started. Increase free water flushes 250 [...] care starting D 2.5 infusion for hypernatremia. 04/09: WBC downtrending. Sodium starting to come down. [...] consult as well for positive KAY and SAFETY FIRE BOSS. Rheumatology signed off. Therapy [facility] facility. 04/13: Discontinued and nutrition consult to adjust tube feeds and free water flushes to better control sodium. 04/14: Placement pending 04/15: Lisinopril increased to better control blood pressure 04/16: Patient seen and examined at bedside. Exam relatively unchanged. Plan for transport to [facility] today. Operative Procedures Performed Procedure(s): ESOPHAGOGASTRODUODENOSCOPY INSERTION [...] medications were sent to [facility]/pharmacy #[id number] AT CORNER OF [address] [address] amLODIPine 10 mg tablet carvediloL 25 mg tablet lisinopriL 40 mg tablet Artemio Ray MD Neurology PGY-3 [facility] 5:12 PM 04/16/23 Associated attestation - Willard Krueger MD - 04/16/2023 10:00 PM EST I saw the patient. I participated and was physically present during the felix portions of the service. I was directly involved in the management and treatment plan of the patient. I have reviewed the resident s discharge note. documented in [facility] Hospital Discharge instructions* Discharge Instructions* Artemio [...] Appointments with neurology will be scheduled at [facility], [address] [place] [address], . Patient Education: Patient was counseled in [...] Care Everywhere. * Use of Medical Restraints (Ukrainian) documented in this encounterOur [facility] History of Present illness Narrative* CLAIR Rosario - 04/16/2023 2:44 PM EST NUTRITION ADULT FOLLOW UP NUTRITION ASSESSMENT: Patient History: Brief Clinical Summary: Patient initially presented to OSH with right sided weakness. 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 Pt remains NPO, not ready for oral diet per ROLL UP MACHINE OPERATOR. PEG placed. Noted DC planned for possibly [...] Results from last 3 days Lab Units 04/16/23 0724 04/15/23 0702 04/14/23 0610 SODIUM mmol/L 141 140 [...] Results from last 3 days Lab Units 04/16/23 0724 04/15/23 0702 04/14/23 0610 WBC X10E9/L 8.5 9.0 [...] 20 04/01/2023 Lab Results Component Value Date [id number] 04/09/2023 Lab Results Component Value Date [...] 04/14/23 0758 Comparative Standards: Estimated Energy Needs: 2955-4964 kcals daily. Method and weight used: 25-30 kcal/kg IBW (54.5kg) Estimated Protein Needs: 65-110 grams daily. Method and weight used: 1.2-2g protein/kg IBW Estimated Fluid Needs: 2608-9927 ml daily. Method weight used: 1ml/kcal Comments: [...] Balbina Neil R.D,L.D. Clinical dietitian Patient Touch extension:[phone] Direct Dial phone number: [phone] 04/16/23 2:47 PM * Artemio Ray MD [...] less than 140 and was transferred to [facility] neuro ICU for further management. On arrival, [...] function: 0=Normal Total: 15 Pre morbid Modified Churchill score: 0 Lab Review Lab Results Component [...] Dr. Burgess Artemio Ray MD Neurology PGY-3 [facility] 10:27 AM 04/15/23 This patient is being followed by the Neurology Resident service. Contact attending directly during these hours: Saturday to 7:30-8:30 A.M. to Saturday 12-1:00 p.m. Primary Neurology service: [phone] Consult neurology service: [phone] Resident Stroke Service: [phone] If the patient belongs to the Stroke [...] less than 140 and was transferred to [facility] neuro ICU for further management. On arrival, [...] Dr. Burgess Artemio Ray MD Neurology PGY-3 [facility] 2:38 PM 04/14/23 This patient is being followed by the Neurology Resident service. Contact attending directly during these hours: Saturday to 7:30-8:30 A.M. to Saturday 12-1:00 p.m. Primary Neurology service: [phone] Consult neurology service: [phone] Resident Stroke Service: [phone] If the patient belongs to the Stroke [...] Thank you, Amita Alonso RN Rapid Response: [facility] * Artemio Ray MD - 04/13/2023 1:31 [...] less than 140 and was transferred to [facility] neuro ICU for further management. On arrival, [...] Dr. Burgess Artemio Ray MD Neurology PGY-3 [facility] 1:32 PM 04/13/23 This patient is being followed by the Neurology Resident service. Contact attending directly during these hours: Saturday to 7:30-8:30 A.M. to Saturday 12-1:00 p.m. Primary Neurology service: [phone] Consult neurology service: [phone] Resident Stroke Service: [phone] If the patient belongs to the Stroke [...] Lyons PharmD - 04/13/2023 12:59 PM EST [facility] Department of Pharmacy Pharmacist to Physician Communication The dose of fondaparinux has been changed to 2.5 mg every 24 hours per the [facility] approved renal dosing guidelines, based on [...] Thank you, Dulce Dickinson RN Rapid Response: [facility] * Artemio Ray MD - 04/12/2023 5:05 [...] less than 140 and was transferred to [facility] neuro ICU for further management. On arrival, [...] Automated e xposure control utilized. The [place] Symptomatic Carotid Endarterectomy Trial (NASCET) method for [...] Burgess Oksana Bal MD PGY-2 Neurology Resident [facility] Medicine 5:05 PM 04/12/23 This patient is being followed by the Neurology Resident service. Contact attending directly during these hours: Saturday to 7:30-8:30 A.M. to Saturday 12-1:00 p.m. 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 Clinical dietitian Patient Touch extension:[phone] Direct Dial phone number: [phone] 04/12/23 9:15 AM * Vinny Tello MD - 04/12/2023 7:30 AM EST Images from the original note were not included. 04/12/2023 7:30 AM Name: Ellen Chan Age: 78 y.o. 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 This specific service willnot be billed Electronically signed by Kacie Cabrales MD [facility] Robotic Surgery Trauma, Acute Care Surgery and Surgical Critical Care * Vinny Tello MD - 04/11/2023 11:46 AM EST 04/11/2023 11:46 AM Name: Ellen Chan Age: 78 y.o. 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 Consent obtained from granddaughter/POA. Diet: NPO, hold tube feeds DVT prophylaxis: SCDs, hold Arixtra Vinny Tello MD General Surgery Resident, PGY-1 Acute Care Surgery/ACS 6a-6p pager #[phone] 6p-6a pager #[phone] Associated attestation - Dae Bo MD - [...] NPO, not ready for oral diet per ROLL UP MACHINE OPERATOR. Biochemical Data, Medical Tests, and Procedures: 04/01 [...] last 3 days Lab Units 04/11/233304/10/234004/09/23 015 WBC X10E9/L 9.7 8.9 10.5 HEMOGLOBIN g/dL 11.4* 12.0 11.5* HEMATOCRIT % 34.0* 35.6 33.6* PLATELETS X10E9/L 97* 87* 74* MCV fL 86 86 86 Results from last 3 days Lab Units 04/11/233304/10/234004/09/23 1715 04/09/23 0812 MAGNESIUM mg/dL 2.1 2.4 [...] 20 04/01/2023 Lab Results Component Value Date [id number] 04/09/2023 Lab Results Component Value Date [...] mg 10 mg rectal Q3 Days Christina Mendozaor, DO 10 mg at 04/08/23 1312 calcium [...] 6 mg 6 mg nasogastric Nightly PRN Haseebmarcela Mcnamara APRN-CANDY VENDOR 6 mg at 04/11/23 0049 omeprazole-sodium bicarbonate (KONVOMEP) 2-84 mg/mL oral suspension 40 mg 40 mg nasogastric Daily Christina Freitas, DO 40 mg at 04/11/23 0824 ondansetron (PF) (ZOFRAN) injection 4 mg 4 mg intravenous Q6H PRN Christina Freitas, DO 4 mg at1 2137 piperacillin-tazobactam (ZOSYN) 3.375 g in sodium chloride 0.9 % 50 mL IVPB-MBP 3.375 g dmcfcyevwpgA4R TAE ChowdhuryCANDY VENDOR 12.5 mL/hr at 04/11/23 1049 3.375 g [...] (04/11/23 0800) Skin Temp: Warm; Dry (04/11/23 0800) Wound (per nursing flow sheets): Gastrointestinal (per nursing flow sheets): Abdomen Assessment: Soft; Rounded (04/11/23 0400) Last BM Date: 04/11/23 (04/11/23 0800) Passing Flatus: Yes (04/11/23 0800) RUQ Bowel Sounds: Active (04/11/23 0800) LUQ Bowel Sounds: Active (04/11/23 08) RLQ Bowel Sounds: Active (04/11/23 08) LLQ Bowel Sounds: Active (04/11/23 0800) GI Symptoms: Constipation (04/08/23 1200) Relieved by: [...] oz) Admit Weight: 67.1kg (04/01; bed scale) [place] Body Weight: 54.5kg Weight Changes: - Admit Body Mass Index: 25.02 Current Body Mass Index: Body mass index is 25.01 kg/m . Comparative Standards: Estimated Energy Needs: 4558-6770 kcals daily. Method and weight used: 25-30 kcal/kg IBW (54.5kg) Estimated Protein Needs: 65-110 grams daily. Method and weight used: 1.2-2g protein/kg IBW Estimated Fluid Needs: 6313-5328 ml daily. Method weight used: 1ml/kcal Comments: [...] Balbina Neil R.D,L.D. Clinical dietitian Patient Touch extension:[phone] Direct Dial phone number: [phone] 04/11/23 10:59 AM * Michele Estrada MD - 04/11/2023 10:09 AM EST Images from the original note were not included. [facility] Jack Mearz M.D. Austin Spain M.D. Arianne Cha M.D. Neetu Snider M.D. Angeles Conner, MOTOR VEHICLE INSPECTOR-[facility] Chen Lloyd, MOTOR VEHICLE INSPECTOR-[facility] Miriam Cm, MOTOR VEHICLE INSPECTOR-[facility] Sushma Long, MOTOR VEHICLE INSPECTOR-[facility] AZIZA Herring M.D. Feng Jiang, M.D. Jeffrey Muler, M.D. Qunfang Li, M.Erika Garrett, MOTOR VEHICLE INSPECTOR-[facility] Piedad Armando, MOTOR VEHICLE INSPECTOR-[facility] Josh Shahla, MOTOR VEHICLE INSPECTOR-[facility] Nayely Ruelas, MOTOR VEHICLE INSPECTOR-[facility] Rachna Burk, MOTOR VEHICLE INSPECTOR-[facility] PROGRESS NOTE Subjective: Currently, [...] will need to follow up with a Powder Expert, and could follow up with our group in [place], or with a [facility] material chaser in [place]. Family to discuss. Noquestions at this time. HPI: Ellen Chan is a 78 y.o. female with a PMHx of AAA, GERD, HTN. [facility] from an OSHwith right-sided weakness. She [...] IgG 786 635 - 1,741 mg/dL Free Caruthers Lt Chains 6.32 (H) 0.33 - 1.94 mg/dL Free Lambda Lt Chains 3.70 (H) 0.57 - 2.63 mg/dL Free zoila/lambda ratio 1.71 (H) 0.26 - 1.65 Immune profile inter PENDING Anti-Chromatin IGG Collection Time: 04/10/23 1:11 PM Result Value Ref Range Anti-chromatin IgG <0.2 <1.0 AI Anti-DNA antibody, double-stranded Collection Time: 04/10/23 1:11 PM Result Value Ref Range Ds DNA <1 <5 IU/ML SAFETY FIRE BOSS AB IgG Collection Time: 04/10/23 1:11 PM Result Value Ref Range Anti SAFETY FIRE BOSS 1.0 (H) <1.0 AI Anti-Ruelas AB IGG Collection Time: 04/10/23 1:11 PM Result Value Ref Range Anti-ruelas AB IgG <0.2 <1.0 AI Ruelas/SAFETY FIRE BOSS AB IgG Collection Time: 04/10/23 1:11 PM Result Value Ref Range Anti-Sm/SAFETY FIRE BOSS <0.2 <1.0 AI Electrolyte panel Collection Time: [...] mg, 10 mg, intravenous, Q4H PRN, Christina Leah Swor, DO, 10 mg at 04/04/23 0604 ipratropium-albuteroL (DUONEB) 0.5 mg-3 mg(2.5 mg base)/3 mL nebulizer solution 3 mL, 3 mL, nebulization, Q4H PRN, Mohan De Anda MD, 3 mL at 04/09/23 0521 labetaloL (NORMODYNE,TRANDATE) injection 10 mg, 10 mg, intravenous, Q5 Min PRN, Christina Mendozaor, DO, 10 mg at 04/09/23 0634 lisinopriL (PRINIVIL,ZESTRIL) tablet 20 mg, 20 mg, nasogastric, Daily, Christina Lynn Swor, DO, 20 mg at 04/11/23 0823 magnesium hydroxide (MILK OF MAGNESIA) suspension 30 mL, 30 mL, nasogastric, Q3 Days, Christina Lynn Swor, DO, 30 mL at 04/07/23 2152 magnesium sulfate IVPB 2000 mg/50 mL in iso-osmotic water (40 mg/mL premix), 2,000 mg, intravenous,PRN OR magnesium sulfate IVPB 4000 mg/100 mL in iso- osmotic water (40 mg/mL premix), 4,000 mg, intravenous, PRN, Ry De Anda MD melatonin (CIRCADIN) tablet 6 mg, 6 mg, nasogastric, Nightly PRN, Haseeb Mcnamara, MOTOR VEHICLE INSPECTOR-CANDY VENDOR, 6 mg at 04/11/23 0049 omeprazole-sodium bicarbonate [...] IVPB-MBP, 3.375 g, intravenous, Q8H, Mai Ho, MOTOR VEHICLE INSPECTOR-CANDY VENDOR, Stopped at 04/11/23 0554 potassium chloride (K-TAB,KLOR-CON) [...] spray, 1 spray, oral, PRN, Mai Ho, MOTOR VEHICLE INSPECTOR-CANDY VENDOR, 1 spray at 04/09/23 1022 sennosides-docusate sodium [...] 0.9 % infusion, 10 mL/hr, intravenous, Continuous PRNRy MD sodium chloride 0.9 % infusion, 10 mL/hr, intravenous, Continuous PRN, Ry De Anda MD sodium chloride 0.9 % infusion, 10 mL/hr, intravenous, Continuous PRNRy MD, Stopped at 04/02/23 0805 Diagnosis Problem list: Patient Active Problem List Diagnosis 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 Thrombocytopenia - Platelet 97,000 - 91,000 on admission. - 138,000 in 2020. #. Acute left ophthalmic ICH with IVH #. AAA s/p repair Plan: Differentials include consumption from ICH, microangiopathy due to AAA, or more likely chronic thrombocytopenia. No evidence of hemolysis, DIC, nutritional deficiency, splenic sequestration KAY positive with along with anti SAFETY FIRE BOSS antibody elevation. Rheumatology consulted for this finding. SPEP, IFX still pending. Patient will follow up with Dr. Marie in [place]. I will facilitate having this scheduled. If the patient/family decide to follow up with [facility], they are welcome to cancel this appointment. Hematology will sign off at this time. Please contact us with any questions. Transfusion Parameters: Hgb < 7 and Plts < 10,000, unless active bleeding transfuse Plts <20,000 Code Status: Modified Code Status [place] Further medical management of comorbid conditions per primary team and consulting services, appreciate assistance The patient was seen and examined and all plans and orders were agreed upon with the physician on service today, Dr. Estrada. Chen Lloyd, MOTOR VEHICLE INSPECTOR-CANDY VENDOR [facility] [address] [place] [address] Epic Chat is my preferred mode of contact. For after hours (evening, weekends, holidays) Hematology Oncology needs, please call the electronic assembler group leader service [phone]. Please ask for the MD electronic assembler group leader. April 11, 2023, 10:39 AM ATTENDING PHYSICIAN [...] hematology if further questions. MD Chen Moore, TANYA-CANDY VENDOR 04/11/23 5621 * Oksana Bal MD - 04/11/2023 7:39 [...] less than 140 and was transferred to [facility] neuro ICU for further management. On arrival, [...] function: 0=Normal Total: 15 Pre morbid Modified Churchill score: 0 Lab Review Lab Results Component [...] Burgess Oksana Bal MD PGY-2 Neurology Resident [facility] 7:39 AM 04/11/23 This patient is being followed by the Neurology Resident service. Contact attending directly during these hours: Saturday to 7:30-8:30 A.M. to Saturday 12-1:00 p.m. Primary Neurology service: [phone] Consult neurology service: [phone] Resident Stroke Service: [phone] If the patient belongs to the Stroke [...] 8.9 Na 151 (free water flushes) - [facility] monitoring Abdominal us for thrombocytopenia workup Chronic [...] with attending MD and bedside RN Roula Dao PA-C [facility] Please feel free to contact me via Patient Touch Subjective No acute events overnight. Opens eyes to verbal but not following commands at this time. Niece updated at bedside. No acute distress noted. ALLERGIES: Allergies Allergen Reactions Ciprofloxacin Headache Alendronate Bee Venom Protein (Honey Bee) feels like my eyes are spinning around Igyndtxf-Kimcquuqlva-Kkuqatfil Oxycodone Headache I just don't want to take it PAST MEDICAL HISTORY: Past Medical History: Diagnosis Date AAA (abdominal aortic aneurysm) ([facility]) was surgically taken care of 09/2018 GERD [...] 05/26/2019 Performed by Caro Pollard DO at [facility] ORIF WRIST FRACTURE Right Pins Vital Signs [...] Adhesive tape 04/11/23399 Dressing Status/Interventions Clean;Dry;Intact 04/10/23 08 Flushed With Tap water 04/11/23399 Flush or [...] IgG 786 635 - 1,741 mg/dL Free Caruthers Lt Chains 6.32 (H) 0.33 - 1.94 mg/dL Free Lambda Lt Chains 3.70 (H) 0.57 - 2.63 mg/dL Free zoila/lambda ratio 1.71 (H) 0.26 - 1.65 Immune profile inter PENDING Anti-Chromatin IGG Collection Time: 04/10/23 1:11 PM Result Value Ref Range Anti-chromatin IgG <0.2 <1.0 AI Anti-DNA antibody, double-stranded Collection Time: 04/10/23 1:11 PM Result Value Ref Range Ds DNA <1 <5 IU/ML SAFETY FIRE BOSS AB IgG Collection Time: 04/10/23 1:11 PM Result Value Ref Range Anti SAFETY FIRE BOSS 1.0 (H) <1.0 AI Anti-Ruelas AB IGG Collection Time: 04/10/23 1:11 PM Result Value Ref Range Anti-ruelas AB IgG <0.2 <1.0 AI Ruelas/SAFETY FIRE BOSS AB IgG Collection Time: 04/10/23 1:11 PM Result Value Ref Range Anti-Sm/SAFETY FIRE BOSS <0.2 <1.0 AI Electrolyte panel Collection Time: [...] 6 mg, 6 mg, nasogastric, Nightly PRN, KOTA Nguyen, 6 mg at 04/11/23 0049 omeprazole-sodium bicarbonate (KONVOMEP) 2-84 mg/mL oral suspension 40 mg, 40 mg, nasogastric, Daily, Christina Freitas DO, 40 mg at 04/10/23 0838 ondansetron (PF) (ZOFRAN) injection 4 mg, 4 mg, intravenous, Q6H PRN, Christina Freitas DO, 4 mg at 04/06/23 2137 [COMPLETED] piperacillin-tazobactam (ZOSYN) 4.5 g in sodium chloride 0.9 % 50 mL IVPB-MBP, 4.5 g, intravenous, Once, Stopped at 04/06/23 1509 FOLLOWED BY piperacillin-tazobactam (ZOSYN) 3.375 g in sodium chloride 0.9 % 50 mL IVPB-MBP, 3.375 g, intravenous, Q8H, Mai Ho APRN-SHAMEKA, Stopped at 04/11/23 0554 potassium chloride (K-TAB,KLOR-CON) [...] solution 1 spray, 1 spray, oral, PRN, KOTA Chowdhury, 1 spray at 04/09/23 1022 sennosides-docusate sodium (SENOKOT-S) 8.6-50 mg 2 tablet, 2 tablet, nasogastric, BID, Christina Freitas DO, 2 tablet at 04/10/23 0838 sodium [...] Beach RPH - 04/11/2023 5:56 AM EST [facility] Department of Pharmacy Pharmacist to Physician Communication The dose of fondaparinux has been changed to 1.5 mg every 24 hours per the [facility] approved renal dosing guidelines, based on [...] less than 140 and was transferred to [facility] neuro ICU for further management. On arrival, [...] and/or edited the report Finalized by Arianne Rodriuges MD on 04/10/2023 3:[address] CT brain [...] Dr. Burgess Artemio Ray MD Neurology PGY-3 [facility] 9:52 AM 04/10/23 This patient is being followed by the Neurology Resident service. Contact attending directly during these hours: Saturday to 7:30-8:30 A.M. to Saturday 12-1:00 p.m. Primary Neurology service: [phone] Consult neurology service: [phone] Resident Stroke Service: [phone] If the patient belongs to the Stroke [...] 8.9 Na up (free water flushes) - [facility] monitoring Abdominal us for thrombocytopenia workup Impression: [...] scale per protocol Plan discussed with attending pharmacist critical care , patient/family and bedside RN. Haseeb Mcnamara, TANYA-CANDY VENDOR Acute Care Nurse Practitioner [facility] Critical Care [facility] Contact via patient touch Subjective: This is [...] 3 days Lab Units 04/10/23 0620 04/10/23 0041 04/09/23 1715 04/09/23 0812 04/09/23 0158 04/08/23 1340 04/08/23 041 BUN mg/dL -- 38* -- -- 33* [...] from last 3 days Lab Units 04/10/23 0041 04/09/23 0158 04/08/23417 WBC X10E9/L 8.9 10.5 11.8* HEMOGLOBIN g/dL 12.0 11.5* 12.0 HEMATOCRIT % 35.6 33.6* 36.4 PLATELETS X10E9/L 87* 74* 66* MCV fL 86 86 87 MCH pg 29.0 29.3 28.7 MCHC g/dL 33.6 34.1 33.0 RDW % 15.0 15.4* 15.9* EOS ABS AUTO X10E9/L 0.2 0.2 0.1 Microbiology Results Procedure Component Value Units Date/Time Resp Pathogens Panel/SARS CoV-2 [[id number]] Collected: 04/03/23 1000 Specimen: Nasopharynx Updated: 04/03/23 [...] 2 Not Detected Mrsa Pcr nasal swab [[id number]] Collected: 04/03/23 1000 Specimen: Nasal Updated: 04/03/23 [...] Value Units Date/Time Resp Pathogens Panel/SARS CoV-2 [[id number]] Collected: 04/03/23 1000 Specimen: Nasopharynx Updated: 04/03/23 [...] 2 Not Detected Mrsa Pcr nasal swab [[id number]] Collected: 04/03/23 1000 Specimen: Nasal Updated: 04/03/23 [...] Clear 04/10/23409 Output (mL) 50 mL 04/10/23 0500 I/O last 3 completed shifts: In: 3598.5 [...] 10 mL/hr, Last Rate: Stopped (04/02/23 08) Cc time 30 mins Haseeb Mcnamara APRN-CANDY VENDOR 04/10/23 0944 * Artemio Ray MD - [...] less than 140 and was transferred to [facility] neuro ICU for further management. On arrival, [...] function: 0=Normal Total: 16 Pre morbid Modified Churchill score: 0 Lab Review Lab Results Component [...] scanner and low likelihood that MRI would international exchange coordinator Zosyn for pneumonia per critical care PEG [...] Dr. Burgess Artemio Ray MD Neurology PGY-3 [facility] 9:14 AM 04/09/23 This patient is being followed by the Neurology Resident service. Contact attending directly during these hours: Saturday to 7:30-8:30 A.M. to Saturday 12-1:00 p.m. Primary Neurology service: [phone] Consult neurology service: [phone] Resident Stroke Service: [phone] If the patient belongs to the Stroke [...] NPO, not ready for oral diet per ROLL UP MACHINE OPERATOR. Biochemical Data, Medical Tests, and Procedures: 04/01 [...] 0158 04/08/23 2203 04/08/23 1747 04/08/23 1340 04/08/238 04/07/23 0334 SODIUM mmol/L 146 146 148* [...] from last 7 days Lab Units 04/09/23 01504/08/2341704/07/23 1154 04/07/23 0334 04/06/23 0342 04/05/23 0342 04/04/23 0330 BEDSIDE GLUCOSE mg/dL -- -- 111* -- -- -- -- GLUCOSE mg/dL 155* 135* -- 112* 106* 169* 147* Results from last 3 days Lab Units 04/09/2315704/08/2341704/07/23 0334 WBC X10E9/L 10.5 11.8* 14.8* HEMOGLOBIN [...] VERYLOWLIP 20 04/01/2023 No results found for: DIBDENNB94 No results found for: FOLATE No results found for: VITD25 Comments (labs): K-3.4 Medications/ Parenteral: Current Facility-Administered Medications Medication Dose Route Frequency Provider Last Rate Last Admin acetaminophen (TYLENOL) 650 mg/20.3 mL solution 650 mg 650 mg nasogastric Q6H PRN Christina Frietas DO amLODIPine (NORVASC) tablet 10 mg 10 [...] injection 5,000 Units 5,000 Units subcutaneous Q8H [facility] Jordan Hassan MD 5,000 Units at 04/08/232113 hydrALAZINE (APRESOLINE) injection 10 mg 10 mg intravenous Q4H PRN Christina Freitas DO 10 mg at 04/04/23 0604 ipratropium-albuteroL [...] (40 mg/mL premix) 2,000 mg intravenous Once KOTA Chowdhury melatonin (CIRCADIN) tablet 6 mg 6 mg oral Nightly Jordan Hassan MD 6 mg at 04/08/232113 omeprazole-sodium bicarbonate (KONVOMEP) 2-84 mg/mL oral suspension 40 mg 40 mg nasogastric Daily Christina Leah Swor, DO 40 mg at 04/08/23 1116 ondansetron (PF) (ZOFRAN) injection 4 mg 4 mg intravenous Q6H PRN Christina Leah Swor, DO 4 mg at12136 piperacillin-tazobactam (ZOSYN) 3.375 g in sodium chloride 0.9 % 50 mL IVPB-MBP 3.375 g [id number] KOTA Chowdhury Stopped at 04/09/23 0600 potassium chloride (K-TAB,KLOR-CON) [...] 2 tablet 2 tablet nasogastric BID Christina ElizabethSwor, DO 2 tablet at 04/08/232113 sodium phosphate [...] oz) Admit Weight: 67.1kg (04/01; bed scale) [place] Body Weight: 54.5kg Weight Changes: down by 1.5kg from admit Admit Body Mass Index: 25.02 Current Body Mass Index: Body mass index is 24.82 kg/m . Comparative Standards: Estimated Energy Needs: 4754-5665 kcals daily. Method and weight used: 25-30 kcal/kg IBW (54.5kg) Estimated Protein Needs: 65-110 grams daily. Method and weight used: 1.2-2g protein/kg IBW Estimated Fluid Needs: 2997-3231 ml daily. Method weight used: 1ml/kcal Comments: [...] labs, POC and overall status. Balbina Neil R.D,Cristobal Clinical dietitian Patient Touch extension:[phone] Direct Dial phone number: [phone] 04/09/23 9:15 AM * KOTA Chowdhury - [...] and expiratory wheezing with rhonchi on evaluation. [facility] Problem: Principal Problem: 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CMS-HCC) [...] days Lab Units 04/09/23 0158 04/08/23 1340 04/08/238 04/07/23 0334 04/06/23 1104 BUN mg/dL 33* -- 54* 53* -- CREATININE mg/dL 0.74 -- 0.97 1.11* -- POTASSIUM mmol/L 3.5 3.5 3.5 4.0 4.7 CO2 mmol/L 26 -- 29 30 -- CHLORIDE mmol/L 113* [...] Value Units Date/Time Resp Pathogens Panel/SARS CoV-2 [[id number]] Collected: 04/03/23 1000 Specimen: Nasopharynx Updated: 04/03/23 [...] 2 Not Detected Mrsa Pcr nasal swab [[id number]] Collected: 04/03/23 1000 Specimen: Nasal Updated: 04/03/23 [...] Value Units Date/Time Resp Pathogens Panel/SARS CoV-2 [[id number]] Collected: 04/03/23 1000 Specimen: Nasopharynx Updated: 04/03/23 [...] 2 Not Detected Mrsa Pcr nasal swab [[id number]] Collected: 04/03/23 1000 Specimen: Nasal Updated: 04/03/23 [...] Clean;Dry 04/09/23399 Tube Site Care Completed 04/08/23 08 Secured at (cm) 55 cm 04/09/23399 Securement [...] Continuing Strict I&O in critically ill patient 04/09/23 040 Urine Color Yellow/straw 04/09/23399 Urine Appearance Clear 04/09/23399 Output (mL) 90 mL 04/09/23 0500 I/O last 3 completed shifts: In: 3782.8 [...] titration of care by a Critical Care Buffer Inflated Pad. Failure to do so may result in further organ system failure, imminent deterioration, or . Mai Ho, MOTOR VEHICLE INSPECTOR-CANDY VENDOR 04/09/23 1031 Mai Ho, MOTOR VEHICLE INSPECTOR-CANDY VENDOR 04/09/23 1049 Mai Ho, MOTOR VEHICLE INSPECTOR-[facility] 04/09/23 1050 * Artemio Ray MD - [...] less than 140 and was transferred to [facility] neuro ICU for further management. On arrival, [...] function: 0=Normal Total: 16 Pre morbid Modified Churchill score: 0 Lab Review Lab Results Component [...] with slight improvement on the left. Wor kstation:[id number] Finalized by Rajan Mtz MD on 04/08/2023 [...] scanner and low likelihood that MRI would international exchange coordinator Zosyn for pneumonia per critical care PEG [...] Dr. Montemayor. Artemio Ray MD Neurology PGY-3 [facility] 12:54 PM 04/08/23 This patient is being followed by the Neurology Resident service. Contact attending directly during these hours: Saturday to 7:30-8:30 A.M. to Saturday 12-1:00 p.m. Primary Neurology service: [phone] Consult neurology service: [phone] Resident Stroke Service: [phone] If the patient belongs to the Stroke [...] Ellen Chan Age: 78 y.o. 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9* 15.8* EOS ABS AUTO X10E9/L 0.1 0.0 0.0 Microbiology Results Procedure Component Value Units Date/Time Resp Pathogens Panel/SARS CoV-2 [[id number]] Collected: 04/03/23 1000 Specimen: Nasopharynx Updated: 04/03/23 [...] 2 Not Detected Mrsa Pcr nasal swab [[id number]] Collected: 04/03/23 1000 Specimen: Nasal Updated: 04/03/23 [...] Value Units Date/Time Resp Pathogens Panel/SARS CoV-2 [[id number]] Collected: 04/03/23 1000 Specimen: Nasopharynx Updated: 04/03/23 [...] 2 Not Detected Mrsa Pcr nasal swab [[id number]] Collected: 04/03/23 1000 Specimen: Nasal Updated: 04/03/23 1200 Mrsa PCR Negative Ventilator Settings FiO2 (%): 28 % Invasive Hemodynamic [place] Lines/Drains Peripheral IV 04/02/23 Anterior;Left Forearm (Active) Line Status No blood return;Flushed;Saline locked 04/08/23 040 Site Assessment Clean;Dry;Intact 04/08/23399 Dressing Type Occlusive;Transparent 04/08/23 040 Dressing Status Clean;Dry;Intact 04/08/23 040 Dressing Intervention Dressing changed 04/07/231999 Dressing Change Due (Non-Gauze) 04/14/23 04/07/231999 Peripheral IV 04/06/23 Anterior;Left;Upper Arm (Active) Line Status No blood return;Flushed;Infusing 04/08/23 040 Site Assessment Clean;Dry;Intact 04/08/23399 Dressing Type Occlusive;Transparent 04/08/23 040 Dressing Status Clean;Dry;Intact 04/08/23 040 Dressing Intervention Dressing changed 04/06/231999 Dressing Change Due (Non-Gauze) 04/13/23 04/06/231999 NG/OG Tube 04/03/23 Nasogastric Left nostril (Active) Placement Verification External length measured;Gastric content;X-ray 04/08/23399 Status Continuous tube feeding 04/08/23 040 Site Assessment Clean;Dry 04/08/23 040 Tube Site Care Completed 04/08/23 040 Secured at (cm) 55 cm 04/08/23 040 Securement Method Adhesive tape 04/08/23 040 Dressing Status/Interventions Clean;Dry;Intact 04/07/23 1200 Flushed With Tap water 04/08/23 040 Flush or Free Water (mL) 300 ml 04/08/23 040 Feeding? (Yes or No) Yes 04/08/23 040 Urinary Catheter 04/02/23 (Active) Catheter Status Patent 04/08/23399 Site Assessment Clean;Skin intact 04/08/23 040 Collection Container Standard drainage bag/container 04/08/23 040 Securement Method Securing device (Describe) 04/08/23 040 Tamper Evident Seal Intact Yes 04/08/23 040 [...] titration of care by a Critical Care Buffer Inflated Pad. Failure to do so may result in [...] less than 140 and was transferred to [facility] neuro ICU for further management. On arrival, [...] function: 0=Normal Total: 17 Pre morbid Modified Churchill score: 0 Lab Review Lab Results Component [...] Mike Hammond DO on 04/06/2023 4:02 PM Tirso Rodriges MD have personally reviewed the [...] scanner and low likelihood that MRI would international exchange coordinator -Rocephin for pneumonia per critical care -Will [...] Dr. Montemayor. Artemio Ray MD Neurology PGY-3 [facility] 1:59 PM 04/07/23 This patient is being followed by the Neurology Resident service. Contact attending directly during these hours: Saturday to 7:30-8:30 A.M. to Saturday 12-1:00 p.m. Primary Neurology service: [phone] Consult neurology service: [phone] Resident Stroke Service: [phone] If the patient belongs to the Stroke [place] service please contact the Stroke [facility] directly. Associated attestation - Arya Montemayor MD - 04/07/2023 6:56 PM EST Patient seen & examined in conjunction with PGY3. I have reviewed and agree with the HPI, ROS, examination, assessment and plan as outlined in the note above. * Christina Freitas DO - 04/07/2023 7:37 AM EST Images from the original note were not included. [facility] Neurology Neurocritical Care Progress Note: Brief Summary: [...] Grand Daughter - Roula Dispo: ICU Day 7 Family at bedside and updated on plan I have spent 45 mins of critical care time including direct patient care at the bedside, review of relevant labs/results, discussion with family in a patient with neurological failure and coordination of care. This time is exclusive of teaching and any procedures performed. * Christina Freitas, DO - 04/06/2023 2:24 PM EST Images from the original note were not included. [facility] Neurology Neurocritical Care Progress Note: Brief Summary: [...] and any procedures performed. * Albert Jeronimo [facility] - 04/06/2023 1:01 PM EST [facility] Department of Pharmacy Pharmacist to Physician Communication The dose of piperacillin/tazobactam for pneumonia (facility acquired) has been changed to 4.5g IV x1 infused over 30 minutes followed by 3.375g IV every 8 hours infused over 4 hours starting 4 hoursafter the loading dose per the [facility] approved renal dosing guidelines, based on an estimated creatinine clearance is 55.4 mL/min (by C-G formula based on SCr of 0.7 mg/dL). Thank you, Alebrt Jeronimo RPH * Artemio Ray MD - [...] less than 140 and was transferred to [facility] neuro ICU for further management. On arrival, [...] function: 0=Normal Total: 17 Pre morbid Modified Churchill score: 0 Lab Review Lab Results Component [...] Dr. Montemayor. Artemio Ray MD Neurology PGY-3 [facility] 8:41 AM 04/06/23 This patient is being followed by the Neurology Resident service. Contact attending directly during these hours: Saturday to 7:30-8:30 A.M. to Saturday 12-1:00 p.m. Primary Neurology service: [phone] Consult neurology service: [phone] Resident Stroke Service: [phone] If the patient belongs to the Stroke [...] less than 140 and was transferred to [facility] neuro ICU for further management. On arrival, [...] function: 0=Normal Total: 15 Pre morbid Modified Churchill score: 0 Lab Review Lab Results Component [...] Dr. Montemayor. Artemio Ray MD Neurology PGY-3 [facility] 2:05 PM 04/05/23 This patient is being followed by the Neurology Resident service. Contact attending directly during these hours: Saturday to 7:30-8:30 A.M. to Saturday 12-1:00 p.m. Primary Neurology service: [phone] Consult neurology service: [phone] Resident Stroke Service: [phone] If the patient belongs to the Stroke [...] from the original note were not included. [facility] Neurology Neurocritical Care Progress Note: Brief Summary: [...] C (97.9 F) Pulse: [54-98] 70 Resp: [04-03] 17 BP: (117-169)/(59-109) 140/98 FiO2 (%): [28 [...] status. Has NGT and on TF. - ROLL UP MACHINE OPERATOR swallow evaluation: level 6, no liquids. - [...] havesmall left thalamic ICH and transferred to [facility] for further care.PMHx includes HTN, GERD, AAA. Pt remains NPO, not ready for oral diet per ROLL UP MACHINE OPERATOR. Biochemical Data, Medical Tests, and Procedures: 04/01 [...] 109 -- 105 CO2 mmol/L -- 27 -- 27 BUN mg/dL -- 29* 27 [...] Daily Christina Mendozaor, DO 10 mg at 04/04/23 0838 [START ON 04/05/2023] bisacodyL (DULCOLAX) suppository 10 mg 10 mg rectal Q3 Days Christina Mendozaor, DO calcium gluconate IVPB 1000 mg/50 mL [...] injection 5,000 Units 5,000 Units subcutaneous Q8H [facility] Jordan Hassan MD 5,000 Units at 04/04/23 0527 hydrALAZINE (APRESOLINE) injection 10 mg 10 mg intravenous Q4H PRN Christina Mendozaor, DO 10 mg at 04/04/23 0604 hydrALAZINE (APRESOLINE) tablet 25 mg 25 mg nasogastric Q8H [facility] Christina Freitas, DO 25 mg at 04/04/23 1106 ipratropium-albuteroL [...] 10 mg intravenous Q5 Min PRN Christina Freitas DO 10 mg at 04/04/23 0840 magnesium hydroxide (MILK OF MAGNESIA) suspension 30 mL 30 mL nasogastric Q3 Days Christina Freitas DO magnesium sulfate IVPB 2000 mg/50 mL [...] Q6H PRN Christina Freitas DO 4 mg at106/03/22 0342 potassium chloride [...] BID Christina Penn DO 2 tablet at 04/03/23 2119 sodium phosphate 20 mmol in sodium chloride [...] feels like my eyes are spinning around Jzazmcxu-Vsgtfkhoqju-Rdnngdmnz Oxycodone Headache I just don't want to [...] oz) Admit Weight: 67.1kg (04/01; bed scale) [place] Body Weight: 54.5kg Percent [place] Body Weight: 123 Body Mass Index: Body mass index is 25.09 kg/m . BMI Category: Pre-obese (25.00- 29.99) Comparative Standards: Estimated Energy Needs: 8609-9421 kcals daily. Method and weight used: 25-30 kcal/kg IBW (54.5kg) Estimated Protein Needs: 65-110 grams daily. Method and weight used: 1.2-2g protein/kg IBW Estimated Fluid Needs: 2551-3556 ml daily. Method weight used: 1ml/kcal Comments: [...] Neil R.D, L.D. Clinical dietitian Patient Touch extension:[phone] Direct Dial phone number: [phone] 04/04/23 12:38 PM * Jordan Hassan MD [...] less than 140 and was transferred to [facility] neuro ICU for further management. On arrival, [...] Stopped (04/02/23804) amLODIPine, 10 mg, nasogastric, Daily [START ON [...] 06:36 End: 11:54 This is a standard [facility] EEG monitoring report using scalp and ear [...] or primary neurological disorders. Darnell Buenrostro MD Extracorporeal Circulation Specialist Neurology/Neurophysiology [facility] Echo complete W/O contrast Result Date: [...] Montemayor. Jordan Hassan MD PGY3 neurology resident [facility] This patient is being followed by the Neurology Resident service. Contact attending directly during these hours: Saturday to 7:30-8:30 A.M. to Saturday 12-1:00 p.m. Primary Neurology service: [phone] Consult neurology service: [phone] Resident Stroke Service: [phone] If the patient belongs to the Stroke [...] from the original note were not included. [facility] Neurology Neurocritical Care Progress Note: Brief Summary: [...] status. Has NGT and on TF. - ROLL UP MACHINE OPERATOR swallow evaluation: level 6, no liquids. - [...] less than 140 and was transferred to [facility] neuro ICU for further management. On arrival, [...] niCARdipine, 5-15 mg/hr, Last Rate: 5 mg/hr (04/03/23626) sodium chloride 0.9 %, 10 mL/hr sodium chloride 0.9 %, 10 mL/hr sodium chloride 0.9 %, 10 mL/hr, Last Rate: Stopped (04/02/23 08) amLODIPine, 10 mg, nasogastric, Daily carvediloL, 6.25 [...] function: 0=Normal Total: 14 Pre morbid Modified Churchill score: 0 Lab Review Lab Results Component [...] 04/02/2023 End: 06:34 04/03/2023 [facility] using scalp and ear [...] or primary neurological disorders. Darnell Buenrostro MD Extracorporeal Circulation Specialist Neurology/Neurophysiology [facility] X-ray abdomen NG Tube placement 1 [...] neurological disorders. Darnell Buenrostro MD AssistantProfessor Neurology/Neurophysiology [facility] X-ray chest 1 view Result Date: [...] Montemayor. Jordan Hassan MD PGY3 neurology resident [facility] This patient is being followed by the Neurology Resident service. Contact attending directly during these hours: Saturday to 7:30-8:30 A.M. to Saturday 12-1:00 p.m. Primary Neurology service: [phone] Consult neurology service: [phone] Resident Stroke Service: [phone] If the patient belongs to the Stroke [...] from the original note were not included. [facility] Neurology Neurocritical Care Progress Note: Brief Summary: [...] and Start IVF NS at 75cc/hr - ROLL UP MACHINE OPERATOR swallow evaluation: level 6, no liquids. - [...] procedures performed. * Jordan Hassan MD - 04/02/2023 4:47 PM EST NEUROINTERVENTIONAL [...] less than 140 and was transferred to [facility] neuro ICU for further management. On arrival, [...] neurological disorders. Darnell Buenrostro MD AssistantProfessor Neurology/Neurophysiology [facility] X-ray chest 1 view Result Date: [...] intraventricular hemorrhagic changes. At 5:20 a.m. the vice president research called the patient's nurse Shen Chacko and relayed these findings to him. All CT scans at this facility use dose modulation, iterative reconstruction, and/or weight based dosing when appropriate to reduce radiation dose to as low as reasonably achievable. Approved by Resident Mariano Parmar MD on 04/02/2023 4:52 AM I, Caro Kramer MD have personally reviewed the image(s) a [...] . Jordan Hassan MD PGY3 neurology resident [facility] This patient is being followed by the Neurology Resident service. Contact attending directly during these hours: Saturday to 7:30-8:30 A.M. to Saturday 12-1:00 p.m. Primary Neurology service: [phone] Consult neurology service: [phone] Resident Stroke Service: [phone] If the patient belongs to the Stroke [...] fluctuations continue. Poly Shahid MD Vascular Neurologist [facility] Neurology # [phone]([facility]) I have personally participated in the care of this patient. I have reviewed all pertinent clinical information, including history, physical exam, investigation results and plan. I spent 40 minutes caring for this patient, and more than 50% of that time was spent on counseling the patient/robotics technologist/care team and coordinating care. Important Notice: This [...] from the original note were not included. [facility] (formerly [facility]3] Neurosciences Center [address] [place] [address], [address] [place] [address] * NEUROSURGERY DAILY PROGRESS NOTE DATE:04/02/2023 PATIENT'S [...] me her name, aware she is at [facility]) Speech is clear Slight left facial droop [...] control; no NSAIDs - PT/OT when appropriate; ROLL UP MACHINE OPERATOR following; acute dysphagia Cardiovascular: - Goal SBP [...] [facility] Neurosurgery Preferred contact via [employer] Chat For time-sensitive matters contact via Patient Touch: [phone] 04/02/23 8:55 AM Currently scheduled EVERETT can be found on [employer] by using [employer] and searching for PTH Neurosurgery KOTA Cadena 04/02/23 0856 ADDENDUM: Imaging reviewed by Dr. Agarwal. No neurosurgical intervention warranted. Recommend continuing to HOLD ASA; ok to resume ASA one week from today, 04/09/23. Clear for chemical prophylaxis fromneurosurgical perspective; defer initiation to primary. Neurosurgery signing off. Please call with further needs or concerns. [facility] Preferred contact via [email or web address] For time-sensitive matters contact via Patient Touch: [phone] 04/02/23 9:25 AM Currently scheduled EVERETT can be found on [employer] by using [employer] and searching for PTH Neurosurgery KOTA Cadena 04/02/23 0925 * Christina Freitas DO - 04/02/2023 7:16 AM EST Images from the original note were not included. [facility] Neurology Neurocritical Care Progress Note: Brief Summary: Eleln Chan a 78 y.o. female who is [...] change in code status. documented in this encounterOur [facility] Consult note* CLAIR Rosario - 04/14/2023 7:25 AM ESTAssociated Order(s): IP CONSULT TO NUTRITION SERVICES NUTRITION ADULT FOLLOW UP NUTRITION ASSESSMENT: Patient History: Brief Clinical Summary: Patient initially presented to OSH with right sided weakness. Found to havesmall left thalamic ICH and transferred to [facility] for further care.PMHx includes HTN, GERD, AAA. Pt remains NPO, not ready for oral diet per ROLL UP MACHINE OPERATOR. PEG placed, na elevated; RD consulted for [...] 3 days Lab Units 04/14/23 0610 04/13/23 07504/13/23 0059 04/12/23 1216 04/12/23 0616 SODIUM mmol/L 145 149* 148* < > 146 POTASSIUM mmol/L 3.5 3.7 3.6 < > 3.8 CHLORIDE mmol/L 112* 117* 114* < > 115* CO2 mmol/L 24 < > 23 BUN mg/dL -- -- 32* CREATININE mg/dL 0.50 0.58 -- -- 0.71 CALCIUM mg/dL 8.5 8.5 -- -- 8.6 ALBUMIN g/dL 2.9* 2.8* -- -- 2.8* ALK PHOS U/L 85 88 -- -- 85 ALT U/L 76* 74* -- -- 88* AST U/L 35 28 -- -- 37 < > = values in this interval not displayed. Results from last 7 days Lab Units 04/14/23 0604/13/2375104/12/23 0616 04/11/23 0034 04/10/23 0041 04/09/23 0158 [...] from last 3 days Lab Units 04/14/23 0604/13/2375104/12/23 0616 TOTAL BILIRUBIN mg/dL 0.4 0.5 0.6 [...] 20 04/01/2023 Lab Results Component Value Date [id number] 04/09/2023 Lab Results Component Value Date [...] mg 650 mg nasogastric Q6H PRN Christina Lynn Swor, DO 650 mg at 04/14/23 0111 amLODIPine (NORVASC) tablet 10 mg 10 mg nasogastric Daily Christina Mendozaor, DO 10 mg at 04/13/23 0844 bisacodyL (DULCOLAX) suppository 10 mg 10 mg rectal Q3 Days Christina Lynn Swor, DO 10 mg at 04/08/23 1312 calcium [...] Freitas, DO 10 mg at 04/09/23 0634 labetaloL (NORMODYNE,TRANDATE) injection 5 mg 5 mg intravenous Q5 Min PRN Won Webster MD lisinopriL (PRINIVIL,ZESTRIL) tablet 20 mg 20 mg nasogastric Daily Christina Freitas, DO 20 mg at 04/13/23 0844 magnesium hydroxide (MILK OF MAGNESIA) suspension 30 mL 30 mL nasogastric Q3 Days Christina Freitas, DO 30 mL at 04/07/23 215 magnesium sulfate IVPB 2000 mg/50 mL in iso-osmotic water (40 mg/mL premix) 2,000 mg intravenous PRN Ry De Anda MD Or magnesium sulfate IVPB 4000 mg/100 mL in iso-osmotic water (40 mg/mL premix) 4,000 mg intravenous PRN Ry De Anda MD melatonin (CIRCADIN) tablet 6 mg 6 mg nasogastric Nightly PRN Haseeb Mcnamara APRN-CANDY VENDOR 6 mg at 04/13/232045 metoprolol (LOPRESSOR) injection 2.5 mg 2.5 mg intravenous Q5 Min PRN Won Webster MD morphine injection 2 mg 2 mg intravenous Q5 Min PRN Won Webster MD morphine injection 4 mg 4 mg intravenous Q5 Min PRN Won Webster MD omeprazole-sodium bicarbonate (KONVOMEP) 2-84 mg/mL oral suspension 40 mg 40 mg nasogastric Daily Christina Leah Mendozaor, DO 40 mg at 04/13/23 0900 ondansetron (PF) (ZOFRAN) injection 4 mg 4 mg intravenous Q6H PRN Christina Freitas, DO 4 mg at1 2137 ondansetron (PF) (ZOFRAN) injection 4 mg 4 [...] solution 1 spray 1 spray oral PRN Mai Ho APRN-CANDY VENDOR 1 spray at 04/09/23 1022 sennosides-docusate sodium (SENOKOT-S) 8.6-50 mg 2 tablet 2 tablet nasogastric BID Christina Ignacioor, DO 2 tablet at 04/13/23 0844 sodium [...] Skin (per nursing flow sheets): Skin Color: [place] (04/13/232014) Skin Temp: Cool (04/13/232014) Wound (per nursing flow sheets): Gastrointestinal (per nursing flow sheets): Abdomen Assessment: Soft; Flat (04/13/232014) Last BM Date: 04/13/23 (04/13/232014) Passing Flatus: Yes (04/11/232099) RUQ Bowel Sounds: Active (04/12/231944) LUQ Bowel Sounds: Active (04/12/231944) RLQ Bowel Sounds: Active (04/12/231944) LLQ Bowel Sounds: Active (04/12/231944) GI Symptoms: Constipation (04/08/23 1200) Relieved by: Antiemetic (04/06/237) Edema (per nursing flow sheets): RUE Edema: +1 (04/13/232014) Intake/ Output Last 24 hrs: Intake/Output Summary (Last 24 hours) at 04/14/2023 07 Last data filed at 04/13/20232014 Gross per [...] oz) Admit Weight: 67.1kg (04/01; bed scale) [place] Body Weight: 54.5kg Weight Changes: slight loss from admit Admit Body Mass Index: 25.02 Current Body Mass Index: Body mass index is 24.33 kg/m . Comparative Standards: Estimated Energy Needs: 6390-7243 kcals daily. Method and weight used: 25-30 kcal/kg IBW (54.5kg) Estimated Protein Needs: 65-110 grams daily. Method and weight used: 1.2-2g protein/kg IBW Estimated Fluid Needs: 3477-4454 ml daily. Method weight used: 1ml/kcal Comments: [...] Balbina Neil R.D,L.D. Clinical dietitian Patient Touch extension:[phone] Direct Dial phone number: [phone] 04/14/23 7:52 AM * Jenelle Rahman MD - 04/11/2023 12:04 PM ESTAssociated Order(s): IP CONSULT TO RHEUMATOLOGY Images from the original note were not included. [facility] Rheumatology CONSULT NOTE DATE OF ADMISSION 04/01/2023 4:08 AM REASON FOR CONSULTATION: Positive KAY and SAFETY FIRE BOSS REFERRING PROVIDER: Chen Lloyd APRN-CANDY VENDOR PCP NITHYA BROWN MD ASSESSMENT AND PLAN: Positive KAY reflex and SAFETY FIRE BOSS antibody of 1 -Anti DNA, chromatin, ruelas and RF came back negative -was examined today with her niece present at bedside -most of the history was obtained from the niece. She reports that the patient's birthday was celebrated before Sukhwinder and she was in her usual state [...] will develop, an autoimmune disease -Antibodies to SAFETY FIRE BOSS, are found often in very high levels [...] thalamic ICH and patient was transferred to [facility] on 04/01 for further care. She had [...] Oncology which showed positive KAY screen and SAFETY FIRE BOSS antibody 1. Rheumatology was consulted to address this finding. PAST MEDICAL HISTORY: Past Medical History: Diagnosis Date AAA (abdominal aortic aneurysm) ([facility]) was surgically taken care of 09/2018 GERD (gastroesophageal reflux disease) Hypertension Upper respiratory infection 05/2019 Visual impairment glasses PAST SURGICAL HISTORY: Past Surgical History: Procedure Laterality Date BREAST BIOPSY BREAST SURGERY 1989 BREAST BX CARDIAC SURGERY STENT 2019 CARDIAC SURGERY LEFT VENTRICLE STENT 2019 DILATION AND CURETTAGE, DIAGNOSTIC / THERAPEUTIC 1986 HYSTERECTOMY KNEE ARTHROSCOPY Left KNEE ARTHROSCOPY Left REMOVE METAL 2014 LAPAROSCOPIC CHOLECYSTECTOMY N/A 05/26/2019 Performed by Caro Pollard DO at [facility] WRIST FRACTURE Right Pins ALLERGIES: Allergies Allergen Reactions Ciprofloxacin Headache Alendronate Bee Venom Protein (Honey Bee) feels like my eyes are spinning around Ruimjoxe-Ocpzbvrpgyq-Yrjlhhipv Oxycodone Headache I just don't want to [...] Dulce Price DO on 04/10/2023 3:43 AM IArianne MD have personally reviewed the image(s) and [...] IgG 786 635 - 1,741 mg/dL Free Caruthers Lt Chains 6.32 (H) 0.33 - 1.94 mg/dL Free Lambda Lt Chains 3.70 (H) 0.57 - 2.63 mg/dL Free zoila/lambda ratio 1.71 (H) 0.26 - 1.65 Immune profile inter PENDING Anti-Chromatin IGG Collection Time: 04/10/23 1:11 PM Result Value Ref Range Anti-chromatin IgG <0.2 <1.0 AI Anti-DNA antibody, double-stranded Collection Time: 04/10/23 1:11 PM Result Value Ref Range Ds DNA <1 <5 IU/ML SAFETY FIRE BOSS AB IgG Collection Time: 04/10/23 1:11 PM Result Value Ref Range Anti SAFETY FIRE BOSS 1.0 (H) <1.0 AI Anti-Ruelas AB IGG Collection Time: 04/10/23 1:11 PM Result Value Ref Range Anti-ruelas AB IgG <0.2 <1.0 AI Ruelas/SAFETY FIRE BOSS AB IgG Collection Time: 04/10/23 1:11 PM Result Value Ref Range Anti-Sm/SAFETY FIRE BOSS <0.2 <1.0 AI Electrolyte panel Collection Time: [...] 5 - 15 mmol/L Associated attestation - Tawanda, Kishore Osorio MD - 04/16/2023 8:31 AM EST I [...] MD Chief Compliant: Principal Problem: 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[facility]) Reason for Consultation: Rehabilitation Candidacy and Rehab [facility] Physicians/Services Consulting Providers Provider Service Specialty Jazmine [...] History: Diagnosis Date AAA (abdominal aortic aneurysm) ([facility]) was surgically taken care of 09/2018 GERD [...] 05/26/2019 Performed by Caro Pollard DO at [facility] WRIST FRACTURE Right Pins Allergies Allergies Allergen Reactions Ciprofloxacin Headache Alendronate Bee Venom Protein (Honey Bee) feels like my eyes are spinning around Ihihkoge-Hdllmbiceox-Bsxyeclxf Oxycodone Headache I just don't want to [...] IgG 786 635 - 1,741 mg/dL Free Caruthers Lt Chains 6.32 (H) 0.33 - 1.94 mg/dL Free Lambda Lt Chains 3.70 (H) 0.57 - 2.63 mg/dL Free zoila/lambda ratio 1.71 (H) 0.26 - 1.65 Immune profile inter PENDING Anti-Chromatin IGG Collection Time: 04/10/23 1:11 PM Result Value Ref Range Anti-chromatin IgG <0.2 <1.0 AI Anti-DNA antibody, double-stranded Collection Time: 04/10/23 1:11 PM Result Value Ref Range Ds DNA <1 <5 IU/ML SAFETY FIRE BOSS AB IgG Collection Time: 04/10/23 1:11 PM Result Value Ref Range Anti SAFETY FIRE BOSS 1.0 (H) <1.0 AI Anti-Ruelas AB IGG Collection Time: 04/10/23 1:11 PM Result Value Ref Range Anti-ruelas AB IgG <0.2 <1.0 AI Ruelas/SAFETY FIRE BOSS AB IgG Collection Time: 04/10/23 1:11 PM Result Value Ref Range Anti-Sm/SAFETY FIRE BOSS <0.2 <1.0 AI Electrolyte panel Collection Time: [...] Limited by R hemiparesis and poor balance (04/04/23 1041) Assessment/Plan Principal Problem: 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CMS-HCC) Right-sided [...] from the original note were not included. [facility] Jack Meraz M.D. Rere Burger M.D. Neetu Snider M.D. Angeles Conner, MOTOR VEHICLE INSPECTOR-[facility] Chen Lloyd, MOTOR VEHICLE INSPECTOR-CANDY VENDOR Miriam Cm, MOTOR VEHICLE INSPECTOR-CANDY VENDOR Sushma Long, MOTOR VEHICLE INSPECTOR-[facility] AZIZA Herring M.D. Feng Jiang, M.D. Jeffrey Muler, M.D. Donaldo Weems M.D. Isabel Garrett, MOTOR VEHICLE INSPECTORCANDY VENDOR Piedad Armando, MOTOR VEHICLE INSPECTOR-CANDY VENDOR Josh Gale, MOTOR VEHICLE INSPECTOR-CANDY VENDOR Nayely Ruelas, MOTOR VEHICLE INSPECTOR-CANDY VENDOR Rachna Burk, MOTOR VEHICLE INSPECTOR-[facility] HEMATOLOGY ONCOLOGY CONSULT NOTE Reason for consult: for thrombocytopenia History of present illness: The patient is a 78 y.o. female with a PMHx of AAA, GERD, HTN. She presented to [facility] from an OSH with right-sided weakness. [...] History: Diagnosis Date AAA (abdominal aortic aneurysm) ([facility]) was surgically taken care of 09/2018 GERD [...] 05/26/2019 Performed by Caro Pollard DO at [facility] WRIST FRACTURE Right Pins History reviewed. [...] feels like my eyes are spinning around Gsekqwec-Ezaeaxkaxuh-Ziambqchl Oxycodone Headache I just don't want to [...] Insp. O2 Conc. 44 % Oxygen Source [place] Comprehensive metabolic panel Collection Time: 04/07/23 3:34 [...] Start: 06:36 End: 11:54 This is a standardTV EEG monitoring report using scalp and ear [...] or primary neurological disorders. Darnell Buenrostro MD Extracorporeal Circulation Specialist Neurology/Neurophysiology [facility] Echo complete W/O contrast Result Date: [...] or primary neurological disorders. Darnell Buenrostro MD Extracorporeal Circulation Specialist Neurology/Neurophysiology [facility] X-ray abdomen NG Tube placement 1 [...] recording. The background is primarily composed of [id number] uv theta and delta and theta range [...] or primary neurological disorders. Darnell Buenrostro MD Extracorporeal Circulation Specialist Neurology/Neurophysiology [facility] X-ray chest 1 view Result Date: [...] intraventricular hemorrhagic changes. At 5:20 a.m. the vice president research called the patient's nurse Shen Chacko and [...] Patient Active Problem List Diagnosis 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 Thrombocytopenia - Platelet 74,000 [...] work up. Code Status: Modified Code Status [place] Further medical management of comorbid conditions per primary team and consulting services, appreciate assistance The patient was seen and examined and all plans and orders were agreed upon with the attending physician on service today, Dr. Meraz Thank you for the consultation. Chen Lloyd, MOTOR VEHICLE INSPECTOR-CANDY VENDOR [facility] [address] [place] [address] [employer] Chat is my preferred mode of contact. For after hours (evening, weekends, holidays) Hematology Oncology needs, please call the electronic assembler group leader service [phone]. Please ask for the MD electronic assembler group leader. April 09, 2023, 3:34 PM I, Jack [...] bedside. She is not medical power of associate attorney, but has been present throughout patient's [...] 05/26/2019 Performed by Caro Pollard DO at [facility] WRIST FRACTURE Right Pins Allergies Allergen Reactions Ciprofloxacin Headache Alendronate Bee Venom Protein (Honey Bee) feels like my eyes are spinning around Zcaianre-Adsklfgzlrh-Toxxhbqkf Oxycodone Headache I just don't want to take it Current Facility-Administered Medications: acetaminophen (TYLENOL) 650 mg/20.3 mL solution 650 mg, 650 mg, nasogastric, Q6H PRN, Christina Freitas DO amLODIPine (NORVASC) tablet 10 mg, 10 mg, nasogastric, Daily, Christina Freitas DO, 10 mg at 04/07/23 0815 bisacodyL (DULCOLAX) suppository 10 mg, 10 mg, rectal, Q3 Days, Christina Freitas DO, 10 mg at1 1045 calcium gluconate [...] Jordan Hassan MD, 6 mg at 04/05/23 213 omeprazole-sodium bicarbonate (KONVOMEP) 2-84 mg/mL oral suspension [...] repeat discussion with patient's medical power of associate attorney when present. Continue tube feeds in interim Marysol Umana MD General Surgery Resident, PGY-3 Acute Care Surgery/ACS 6a-6p pager #[phone] 6p-6a pager #[phone] Associated attestation - Estevan Duff DO - [...] availability. Willdiscuss with patient's medical power of associate attorney regarding procedure and consent. Estevan Duff D.O. * Amita Kovacs, LD - 04/02/2023 2:26 PM ESTAssociated Order(s): IP CONSULT TO NUTRITION SERVICES; IP CONSULT TO NUTRITION SERVICES NUTRITION ADULT INITIAL EVALUATION NUTRITION ASSESSMENT: Reason to be seen: Consult for TF management Patient History: Admit Diagnosis: Patient Active Problem List Diagnosis 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[facility]) Past Medical History: Past Medical History: Diagnosis [...] 05/26/2019 Performed by Caro Pollard DO at [facility] WRIST FRACTURE Right Pins Social/ Cognitive/ [...] injection 20 mg 20 mg intravenous Q24H [facility] Christina Freitas DO 20 mgat 04/01/23 1720 glucagon HCL injection 1 mg 1 mg intramuscular PRN Ry De Anda MD hydrALAZINE (APRESOLINE) injection 10 mg 10 mg intravenous Q4H PRN Christina Leah Swor, DO labetaloL (NORMODYNE,TRANDATE) injection 10 mg 10 mg intravenous Q5 Min PRN Christina Freitas, DO 10 mg at 04/01/23 0616 magnesium [...] premix) 5-15 mg/hr intravenous Continuous Christina Leah Freitas, DO 15 mL/hr at 04/02/23 1306 7.5 [...] De Anda MD 10 mL/hr at 04/02/23 0631 Rate Verify at 04/02/23 0631 sodium chloride 0.9 % infusion 50 mL/hr intravenous Continuous Jordan Hassan MD sodium chloride 0.9 % infusion 50 mL/hr intravenous Continuous Jordan Hassan MD 50 mL/hr at 807 50 mL/hr at 04/02/23 0807 Nutrition Focused Physical Findings +NGT, Last BM unknown Skin (per nursing flow sheets): Skin Color: Pale (04/02/23 08) Skin Temp: Warm; Dry (04/02/23799) Wound (per nursing flow sheets): --- Gastrointestinal (per nursing flow sheets): Abdomen Assessment: Soft; Nondistended (04/02/23 08) RUQ Bowel Sounds: Active (04/02/23799) LUQ Bowel [...] feels like my eyes are spinning around Enuonnzp-Rhwulblmlzt-Kimkembrx Oxycodone Headache I just don't want to [...] oz) Admit Weight: 67.1kg (04/01; bed scale) [place] Body Weight: 54.5kg Percent [place] Body Weight: 123 Body Mass Index: Body mass index is 25.39 kg/m . BMI Category: Pre-obese (25.00- 29.99) Comparative Standards: Estimated Energy Needs: 8874-9513 kcals daily. Method and weight used: 25-30 kcal/kg IBW (54.5kg) Estimated Protein Needs: 65-110 grams daily. Method and weight used: 1.2-2g protein/kg IBW Estimated Fluid Needs: 2417-6371 ml daily. Method weight used: 1ml/kcal Comments: [...] POC and overall status. Amita Kovacs RD, LD Clinical Dietitian Direct Line: * Christina Freitas, DO - 04/01/2023 10:30 AM ESTAssociated Order(s): IP CONSULT TO AIRCRAFT LOADMASTER SUPERINTENDENT Images from the original note were not included. [facility] Neurology Neurocritical Care Initial Consult Note Brief Summary: Ellen Chan a 78 y.o. [...] from the original note were not included. [facility] Neurosurgery Neurosciences Center [address] [place] [address], [address] [place] [address] * NEUROSURGERY CONSULT NOTE DATE:04/01/2023 PATIENT'S NAME: [...] feels like my eyes are spinning around Gczysrhy-Cfrzgmywlxw-Kjofmmgah Oxycodone Headache I just don't want to [...] injection 10 mg, 10 mg, intravenous, Q4H PRNRy MD labetaloL (NORMODYNE,TRANDATE) injection 10 mg, 10 [...] water (0.1 mEq/mL premix), 10 mEq, intravenous, PRNRy MD sennosides-docusate sodium (SENOKOT-S) 8.6-50 mg 1 tablet, 1 tablet, oral, Q12H PRN, Ry De Anda MD sodium phosphate 20 mmol in sodium chloride 0.9 % 250 mL IVPB, 20 mmol, intravenous, PRN OR sodium phosphate 20 mmol in sodium chloride 0.9 % 100 mL IVPB, 20 mmol, intravenous, PRN OR sod phos di, mono-K phos mono (K-PHOS NEUTRAL) 250 mg tablet 2 tablet, 2 tablet, oral, PRNRy MD sodium chloride 0.9 % infusion, 10 mL/hr, intravenous, Continuous PRN, Ry D eAnda MD sodium chloride 0.9 % infusion, 10 mL/hr, intravenous, Continuous PRN, Ry De Anda MD sodium chloride 0.9 % infusion, 10 mL/hr, intravenous, Continuous PRN, Ry De Anda MD PAST MEDICAL AND SURGICAL HISTORY Past Medical History: Diagnosis Date AAA (abdominal aortic aneurysm) ([facility]) was surgically taken care of 09/2018 GERD [...] 05/26/2019 Performed by Caro Pollard DO at [facility] WRIST FRACTURE Right Pins FAMILY HISTORY [...] prophylaxis: EPC; no chemical prophylaxis Aleida Schultz APRN-SHAMEKA [facility] Contact via patient touch 04/01/23 7:13 AM To find out which EVERETT is on for the day please go to [employer] and use log in [employer] and search for [facility] Neurosurgery (EVERETT and Phone Number is listed) KOTA Sheridan 04/01/23 0713 Reviewed imaging studies. [address] demonstrated blossoming. Recommend [address]. Surgical intervention is unlikely to be warranted as risk/benefit profile at her age favors non-operative management. - Dulce Agarwal MD 04/01/23 8:15 AM documented in this encounterOur [facility] of [facility] Nurse Note* Oksana Mathis RN - 04/11/2023 9:20 AM EST Multidisciplinary Rounds Attendees: Bedside RN, Unit clinical lead, Stroke RN, and PT, OT, ROLL UP MACHINE OPERATOR Diet: Dietary Orders (From admission, onward) Start Ordered 04/11/23 0800 Free water Every 4 hours Question Answer Comment Amount in mL 350 Tube Type: Nasogastric or Oral gastric feeding tube 04/11/23 0721 04/11/23 0608 Adult diet NPO; Except medications Diet effective now Question Answer Comment Diet Type: NPO NPO Except: Except medications 04/11/23 0607 PT OT ROLL UP MACHINE OPERATOR: PT OT ROLL UP MACHINE OPERATOR Orders (From admission, onward) Start Ordered 04/01/23409 [...] Bedside RN, Unit clinical lead, PT, OT, ROLL UP MACHINE OPERATOR, and Care navigation Diet: Dietary Orders (From [...] Every 8 hours Goal Rate (mL/hour): 45 12/26/23 1509 PT OT ROLL UP MACHINE OPERATOR: PT OT ROLL UP MACHINE OPERATOR Orders (From admission, onward) Start Ordered 04/01/23409 [...] Rate (mL/hour): 45 04/02/23 1509 PT OT ROLL UP MACHINE OPERATOR: PT OT ROLL UP MACHINE OPERATOR Orders (From admission, onward) Start Ordered 04/01/23 [...] vs PEG placement Barriers: None Discharge Plan: [facility] accepting * Michela Simmons RN - 04/08/2023 [...] Rate (mL/hour): 45 04/02/23 1509 PT OT ROLL UP MACHINE OPERATOR: PT OT ROLL UP MACHINE OPERATOR Orders (From admission, onward) Start Ordered 04/01/23 [...] Rate (mL/hour): 45 04/02/23 1509 PT OT ROLL UP MACHINE OPERATOR: PT OT ROLL UP MACHINE OPERATOR Orders (From admission, onward) Start Ordered 04/01/23409 [...] ST? Bedside Swallow 04/01/23411 Activity: Bedrest Comments: Harriet: Yes and Continues to meet requirements CVL: No Drips: None Intubated: No Family Issues: None Outstanding Tests/Procedures: None Barriers: Respiratory status Discharge Plan: SNIF * Sahra Lopez RN - 04/04/2023 8:43 AM EST Multidisciplinary Rounds Attendees: Bedside RN, Unit clinical lead, Stroke RN, PT, OT, ROLL UP MACHINE OPERATOR, Care navigation, and Dietary Diet: Dietary Orders [...] Rate (mL/hour): 45 04/02/23 1509 PT OT ROLL UP MACHINE OPERATOR: PT OT ROLL UP MACHINE OPERATOR Orders (From admission, onward) Start Ordered 04/01/23409 [...] Unit clinical lead, Stroke RN, PT, OT, ROLL UP MACHINE OPERATOR, and Care navigation Diet: Dietary Orders (From admission, onward) Start Ordered 04/01/23408 Adult diet NPO Diet effective now Comments: Contact physician for diet order if patient passes bedside dysphagia screen. Question: Diet Type: Answer: NPO 04/01/23411 PT OT ROLL UP MACHINE OPERATOR: PT OT ROLL UP MACHINE OPERATOR Orders (From admission, onward) Start Ordered 04/01/23409 [...] Plan: Needs PT/OT evaluation [facility] History and physical note* Ry De Anda MD - 04/01/2023 3:29 AM EST Stroke / Neurointerventional Ischemic stroke admission note: Date of admission : 04/01/2023 Chief complaint: Right-sided weakness Last known well: 9:00 a.m. on 03/31/2023 Premorbid mRS: 0 Initial NIHSS: 1 NIHSS at [facility]: 4 First CTH: Small left thalamic ICH History of presenting illness: Ellen Chan is a 78 y.o. female with a PMH of HTN, GERD, AAA who presented to an outside hospital with a right-sided weakness. BP on presentation was 155/112. NIHSS was 1. CT head showed small left thalamic ICH. Patient was transferred to [facility] for further care. Patient stated that her [...] History: Diagnosis Date AAA (abdominal aortic aneurysm) ([facility]) was surgically taken care of 09/2018 GERD [...] 05/26/2019 Performed by Caro Pollard DO at [facility] WRIST FRACTURE Right Pins Family history: Shefamily history is not on file. Allergies: Sheis allergic to ciprofloxacin, alendronate, bee venom protein (honey bee), obxckivx-stxbhtvokiv-vgwgwckzh, and oxycodone. Social history: Social History Socioeconomic [...] touch bilaterally symmetric and normal Coordination: Impaired ojgoep-tgpa-bfmfli testing on the right. NIH Stroke Scale [...] left thalamic ICH. Patient was transferred to [facility] for further care. Sx began at 9:00 a.m. It started off as weakness involving her right leg. No prior stroke or anticoagulation use. lives independently and does all ADLs. NIHSS was 4 at [facility]. Impression Left thalamic ICH likely secondary to [...] PT/OT/ST Ry De Anda MD PGY-2 Neurology [facility] 04/01/23 Plan and findings have been [...] of care as outlined. [facility]* Encounter Date Diagnosis Assessment [...] possible carpal tunnel release in the future. [facility] Other 06-27-2023 Evaluation note* Encounter Date Diagnosis [...] Right carpal tunnel syndrome (ICD-10 - G56.01) [facility] Other 06-02-2023 Evaluation note* Encounter Date Diagnosis [...] reaction to wasp sting (ICD-10 - T63.461A) [facility] Other 05-26-2023 Evaluation note* Encounter Date Diagnosis [...] refer for EMG testing. Patient is agreeable. [facility] Other 04-14-2023 Evaluation note* Encounter Date Diagnosis [...] Other specified postprocedural states (ICD-10 - Z98.890) [facility] Other 03-15-2023 Evaluation note* Encounter Date Diagnosis [...] Other specified postprocedural states (ICD-10 - Z98.890) [facility] Other 02-27-2023 Evaluation + Plan note Future Scheduled Tests Radiology* CTA Abdomen and Pelvis 06/04/22 * CTA Chest 06/04/22 [facility]* Encounter Date Diagnosis Assessment [...] of edema glove and soaking as discussed. [facility] Other 02-01-2023 Evaluation note* Encounter Date Diagnosis [...] Other specified postprocedural states (ICD-10 - Z98.890) [facility] Other 01-20-2023 NotePROCEDURE: XR WRIST RT MIN [...] Electronically authenticated by: ANTOLIN VALLADARES Date: 2022-04-27 08:49[facility]01[facility] Evaluation note* Encounter Date Diagnosis [...] Apr, Annual physical exam (ICD-10 - Z00.00) [facility] Other Evaluation noteNo assessment information available [facility] Work Phone: Evaluation noteNo InformationN[employer] Other Evaluation note* Diagnosis 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CMS-HCC)- Primary Intracerebral hemorrhage 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CMS-HCC) Intracerebral hemorrhage [facility] 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CMS-HCC)- Primary Intracerebral hemorrhage [facility] Diagnosis 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CMS-HCC)- Primary Intracerebral hemorrhage [facility] N[facility] - Reported* Type Description Date Medical History Arthritis Medical History hypertension Surgical History broken wrist 1979 Surgical History hysterectomy 1979 Surgical History D&C 1979 Surgical History left knee Surgical History ORIF right wrist 04/30/22 Hospitalization History see above [facility] Other Hospital course Narrative No data available for this section [facility] Additional Instructions DR. MANE'S POST [...] to decrease risk of infection after surgery [facility] Work Phone: Hospital Discharge instructions No data available for this section [facility] filedocumented in this encounter [facility] filedocumented in this [facility] filedocumented in this [facility] No data available for this section [facility] Summary Purpose Family History Relationship Condition Age at Onset Recorded Date/T becky natural son Diabetes mellitus Unknown Advance Directives Advance Directive Response Recorded Date/ Time Advance Directives No April 27, 2022 5:07pm Advance Directive Response Recorded Date/ Time Advance Directives No April 27, 2022 6:07pm Documents on File Type Date Recorded Patient Register Repairer Expl anation Durable Power of Electrical Engineering Professor 05/26/2019 6:13 AM healthcare POA Living Will 05/26/2019 6:10 AM living vane l Latest Code Status on File Code Status Date Activated Date Inactivated Comments Modified Code Status [place] 04/02/2023 3:01 PM 04/17/2023 1:07 PM Question Answer Comments Code Limitations: No Chest Compressions No Defibrillation or Cardioversion Code Status History Code Status Date Activated Date Inactivated Comments DNR Comfort Care Arrest (DNR-CCA) [place] 04/02/2023 2:19 PM 04/02/2023 3:01 PM Full Code 04/02/2023 8:11 AM 04/02/2023 2:19 PM Healthcare Agents on File Name Relationship Healthcare Agent Relationshi p Communication Roula Alexis [facility] Care Agent Documents on File Type Date Recorded Patient Register Repairer Expl anation Durable Power of Electrical Engineering Professor 05/26/2019 6:13 AM healthcare POA Living Will 05/26/2019 6:10 AM living vane l Latest Code Status on File Code Status Date Activated Date Inactivated Comments Modified Code Status [place] 04/02/2023 3:01 PM 04/17/2023 1:07 PM Question Answer Comments Code Limitations: No Chest Compressions No Defibrillation or Cardioversion Code Status History Code Status Date Activated Date Inactivated Comments DNR Comfort Care Arrest (DNR-CCA) [place] 04/02/2023 2:19 PM 04/02/2023 3:01 PM Full Code 04/02/2023 8:11 AM 04/02/2023 2:19 PM Healthcare Agents on File Name Relationship Healthcare Agent Relationshi p Communication Roula Alexis [facility] Health Care Agent Documents on File Type Date Recorded Patient Register Repairer Expl anation Durable Power of Electrical Engineering Professor 04/25/2023 6:31 AM Living Will 04/25/2023 6:21 AM Durable Power of Electrical Engineering Professor 05/26/2019 6:13 AM healthcare POA Living Will 05/26/2019 6:10 AM living vane l Healthcare Agents on File Name Relationship Healthcare Agent Relationshi p Communication Roula Alexis [facility] Health Care Agent Healthcare Agents on File Name Relationship Healthcare Agent Relationshi p Communication Roula Alexis [facility] Health Care Agent Documents on File Type Date Recorded Patient Register Repairer Expl anation Durable Power of Electrical Engineering Professor 04/25/2023 6:31 AM Living Will 04/25/2023 6:21 AM Durable Power of Electrical Engineering Professor 05/26/2019 6:13 AM healthcare POA Living Will 05/26/2019 6:10 AM living vane l Healthcare Agents on File Name Relationship Healthcare Agent Relationshi p Communication Roula Alexis [facility] Health Care Agent Healthcare Agents on File Name Relationship Healthcare Agent Relationshi p Communication Roula Alexis [facility] Health Care Agent Chief Complaint and Reason for Visit Chief Complaint wrist fx Chief Complaint wrist fx S52.551D Chief Complaint wrist fx S52.551D S52.551D Reason for Referral Specialty Diagnoses / Procedures Referred By Contac t Referred To Contact Radiology Diagnoses 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[facility]) Procedures MR brain with and without contrast Farzana Wu MD [facility], [address] [place] [address] Referral ID Status Reason Start Date Expiration Date V isits Requested Visits Authorized [id number] Pending Review 06/04/2023 06/03/2024 1 1 Specialty Diagnoses / Procedures Referred By Contac t Referred To Contact Procedures Adult diet- Regular Adult diet- Regular Artemio Ray MD [address] [place] [phone] Referral ID Status Reason Start Date Expiration Date V isits Requested Visits Authorized [id number] Pending Review 04/16/2023 04/15/2024 1 1 Specialty Diagnoses / Procedures Referred By Contac t Referred To Contact Procedures Discharge Follow-Up Artemio Ray MD [address] [place] [phone] Referral ID Status Reason Start Date Expiration Date V isits Requested Visits Authorized [id number] Pending Review 04/16/2023 04/15/2024 1 1 Specialty Diagnoses / Procedures Referred By Contac t Referred To Contact Diagnoses 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CMS-HCC) Procedures Follow-up with primary care provider Artemio Ray MD [address] [place] [phone] Referral ID Status Reason Start Date Expiration Date V isits Requested Visits Authorized [id number] Pending Review 04/16/2023 04/15/2024 1 1 Specialty Diagnoses / Procedures Referred By Contac t Referred To Contact Diagnoses 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CMS-HCC) Artemio Ray MD [address] [place] [phone] Referral ID Status Reason Start Date Expiration Date V isits Requested Visits Authorized [id number] Pending Review 04/16/2023 04/15/2024 1 1 Specialty Diagnoses / Procedures Referred By Contac t Referred To Contact Speech Pathology Diagnoses 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CMS-HCC) Artemio Ray MD [address] [place] [phone] Referral ID Status Reason Start Date Expiration Date Visits Requested Visits Authorized [id number] Pending Review Specialty Services Required 04/16/2023 04/15/2024 1 1 Specialty Diagnoses / Procedures Referred By Contac t Referred To Contact Behavioral Health Diagnoses 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CMS-HCC) Artemio Ray MD [address] [facility], [address] [place] [phone] Referral ID Status Reason Start Date Expiration Date Visits Requested Visits Authorized [id number] Pending Review Specialty Services Required 04/16/2023 04/15/2024 1 1 Specialty Diagnoses / Procedures Referred By Contac t Referred To Contact Rehabilitation Diagnoses 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[facility]) Artemio Ray MD [address] [facility], [address] [place] [phone] Referral ID Status Reason Start Date Expiration Date Visits Requested Visits Authorized [id number] Pending Review Specialty Services Required 04/16/2023 04/15/2024 1 1 Specialty Diagnoses / Procedures Referred By Contac t Referred To Contact Occupational Therapy Diagnoses 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[facility]) Artemio Ray MD [address] [id number] Referral ID Status Reason Start Date Expiration Date Visits Requested Visits Authorized [id number] Pending Review Specialty Services Required 04/16/2023 04/15/2024 1 1 Reason EMG for RCTS Diagnosis 1 Other closed extra-a rticular fracture of distal end of right radius with routine healing, subsequent encounter (S52.694Q) Referral Organization [facility] Referring Provider First Name Kate Referring Provider Last Name Teresa Referring Provider 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 y Referred Organization [facility] Referred Address [address] [facility], [place],[address] Referred Provider Specialty Neurology Referral Priority Routine Additional Source Comments INFORMATION SOURCE (unrecogn ized section and content) DATE CREATED AUTHOR 08/01/2021 [facility] DATE CREATED AUTHOR AUTHOR'S ORGANIZ ATION 05/15/2022 [facility] DATE CREATED AUTHOR AUTHOR'S ORGANIZ ATION 09/15/2022 [facility] DATE CREATED AUTHOR AUTHOR'S ORGANIZ ATION 10/09/2022 [facility] DATE CREATED AUTHOR AUTHOR'S ORGANIZ ATION 04/21/2023 [facility] DATE CREATED AUTHOR AUTHOR'S ORGANIZ ATION 05/25/2023 [facility] Care Teams (unrecognized sec tion and content) Team Status: Active Member Role Status Dates Nithya Brown MD Primary Care Provider Active Team Status: Inactive Member Role Status Dates Nithya Brown MD Primary Care Provider Active Kate Mane MD Attending Provider Active [employer] Relationship Specialty Start Date End Date Nithya Brown MD [address] [place] [address] PCP - General Family Medicine 05/05/19 [employer] Relationship Specialty [place] [address] [place] [phone] PCP - General Family Medicine 05/05/19 [employer] Relationship Specialty Start Date End Date Nithya Brown MD [address] [place] [phone] PCP - General Family Medicine 05/05/19 [employer] Relationship Specialty [place] [address] [place] [id number] PCP - General Family Medicine 05/05/19 [employer] Relationship Specialty [place] [address] [place] [phone] PCP - General Family Medicine 05/05/19 [employer] Relationship Specialty [place] [address] [place] [address] [phone] PCP - General Family Medicine 05/05/19 REASON FOR VISIT (unrecogniz ed section and content) Specialty Diagnoses / Procedures Referred By Contmarilyn t Referred To Contact Diagnoses 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CMS-HCC) Left thalamic hemorrhage Willard Krueger MD [address] [facility], [address] [place] [address] Referral ID Status Reason Start Date Expiration Date Visits Re quested Visits Authorized [id number] 1 1 Reason Onset Date Comments video visit 05/06/2023 Reason Onset Date Comments MRI Order 05/31/2023 Scheduled Active and Recently Administ ered Medications (unrecognized section and content) Medication Order 04/15/2023 04/16/2023 04/17/2023 amLODIPine (NORVASC) tablet 10 mg 10 mg, nasogastric, Daily, First dose (after last modification) on Sat04/03/23 at 0900, Maintain SBP between 110-140. Look-alike/sound-alike medication - verify indication for use. Avoid grapefruit juice. 926 (Given - Provider: Jose J López RN) 1105 (Given - Provider: Nicole Altamirano RN) 0900 [...] RN)2104 (Given - Provider: Ethel Marshall RN) 0900 (Due) fondaparinux (ARIXTRA) injection 2.5 mg 2.5 mg, subcutaneous, Daily, First dose (after last modification) on Sat04/14/23 at 0900, Look-alike/sound-alike medication - verify indication for use. 927 (Given - Provider: Jose J López RN) 09 (Given - Provider: Nicole Altamirano RN) 0900 (Due) lisinopriL (PRINIVIL,ZESTRIL) tablet 40 mg 40 [...] nasogastric, Every 3 days, First dose on Sat04/04/23 at 2200, Start at 2200 on day 1 Shake well. 2104 (Given - Provider: Ethel Marshall, ELIZABETH) omeprazole-sodium bicarbonate (KONVOMEP) 2-84 mg/mL oral suspension 40 mg 40 mg, nasogastric, Daily, First dose on Sat04/04/23 at 0900, Administer 1 hour before a meal. Suspend tube feeding for 3 hours before and 1 hour after administering. Look-alike/sound-alike medication - verify indication for use., Indication: Dispense As Written (SADIE) 1226 (Given - Provider: Jose J López RN) 921 (Given - Provider: Nicole Altamirano RN) 899 (Due) sennosides-docusate sodium (SENOKOT-S) 8.6-50 mg 2 tablet 2 tablet, nasogastric, 2 times daily, First dose (after last modification) on Sat04/03/23 at 0900 0928 (Given - Provider: Jose J López RN)2099 (Not Given - Provider: Ethel Marshall, ELIZABETH - Reason: Order parameters not met) 918 (Given - Provider: Nicole Altamirano RN)2104 (Given - Provider: Ethel Marshall RN) 899 (Due) PRN Medication Order 04/15/2023 04/16/2023 04/17/2023 acetaminophen (TYLENOL) 650 mg/20.3 mL solution 650 mg 650 mg, nasogastric, Every 6 hours PRN, mild pain - pain scale 1-3, temperature greater than 38 C, headaches, Starting on Sat04/03/23 at 0833 0929 (Given - Provider: Jose J López, RN)2050 (Given - Provider: Ethel Marshall, RN) 1108 (Given - Provider: Nicole Altamirano, ELIZABETH)2105 (Given - Provider: Ethel Marshall, RN) calcium gluconate 3,000 mg in sodium [...] as detailed in Admin Instructions, Starting on 04/01/23 at 0409, For systolic blood pressure greater [...] BE BASED ON THE PRIMARY CLINICAL RECORDS. [employer] provides no warranty or guarantee of the accuracy or completeness of information in this document.
[2023-06-11 07:51] LABS: Basophils Percent Auto 0.1 % (0.2-2.0); Eosinophils Percent Auto 0.1 % (0.9-7.0); Hematocrit 40.9 % (36.0-48.0); Hemoglobin 13.2 g/dL (12.0-16.0); Immature Granulocytes Abs Auto 0.11 10^3/uL (0.00-0.03); Immature Granulocytes Pct Auto 0.7 % (0.0-0.5); Lymphocytes Absolute Auto 0.9 10^3/uL (1.2-3.8); Lymphocytes Percent Auto 5.3 % (20.5-60.0); Mean Corpuscular HGB Conc 32.3 g/dL (29.9-35.2); Mean Corpuscular Hemoglobin 28.3 pg (26.7-34.0); Mean Corpuscular Volume 87.8 fL (81.0-99.0); Monocytes Absolute Auto 0.8 10^3/uL (0.3-0.8); Monocytes Percent Auto 4.9 % (1.7-12.0); Neutrophils Absolute Auto 14.6 10^3/uL (1.4-6.5); Neutrophils Percent Auto 88.9 % (43.0-75.0); Platelet Count 114 10^3/uL (150-450); Red Blood Count 4.66 10^6/uL (4.20-5.40); Red Cell Distribution Width 15.9 % (11.0-15.0); White Blood Count 16.4 10^3/uL (4.0-11.0)
[2023-06-11] MEDS: ONDANSETRON PF 4 MG/2 ML VIAL IV (07:58)
[2023-06-11] MEDS: PANTOPRAZOLE SODIUM 40 MG VIAL IV ×2 (07:58→22:00)
--- NOTE | 2023-06-11 08:03 | ED_ITS ---
HPI - General Adult General Chief complaint: GI Bleed Stated complaint: BLOOD IN STOOL Time Seen by Provider: 06/11/23 07:35 Source: other Source information: ems Mode of arrival: ambulance Limitations: altered mental status History of Present Illness HPI narrative: 78-year-old female to the emergency department with chief complaint of bright red blood per rectum. snf reports that overnight the patient had complained of nausea and had an episode of vomiting. Vomitus had no blood in it. She then began to experience some bright red blood per rectum. She is not on any blood thinners. Patient doesn't recall ever having this problem before. Unsure about colonoscopy. Patient denies any pain or discomfort at this time. Related Data Home Medications Medication Instructions Recorded Confirmed pantoprazole 40 mg tablet,delayed 40 mg PO DAILY 03/31/23 06/11/23 release potassium chloride 10 mEq 20 meq PO DAILY 03/31/23 06/11/23 tablet,extended release amlodipine 10 mg tablet 10 mg PO QDAY 04/28/23 06/11/23 carvedilol 25 mg tablet 25 mg PO BID 04/28/23 06/11/23 lisinopril 40 mg tablet 40 mg PO BID 04/28/23 06/11/23 acetaminophen 500 mg oral powder 500 mg PO Q6H PRN fever or pain 06/11/23 06/11/23 packet melatonin 3 mg tablet 3 mg PO DAILY 06/11/23 06/11/23 metoprolol tartrate 25 mg tablet mg 06/11/23 ondansetron HCl 4 mg tablet 4 mg PO Q4H 06/11/23 06/11/23 Allergies Allergy/AdvReac Type Severity Reaction Status Date / Time acetaminophen [From Percocet] Allergy Unknown Verified 03/31/23 22:00 bee venom protein (honey bee) Allergy Unknown Verified 06/11/23 07:43 oxycodone [From Percocet] Allergy Unknown Verified 03/31/23 22:00 bacitracin Allergy Blister Verified 03/31/23 22:00 [From Neosporin ([id number])] neomycin Allergy Blister Verified 03/31/23 22:00 [From Neosporin ([id number]-[id number]-[id number])] polymyxin B Allergy Blister Verified 03/31/23 22:00 [From Neosporin ([id number])] ciprofloxacin [From Cipro] AdvReac Headache Verified 03/31/23 22:00 alendronate Allergy Severe Uncoded 06/11/23 07:43 Review of Systems ROS Status of ROS 10 or more systems reviewed and unremark able except as noted in history and below [facility] Social History Smoking status: Current every day smoker Exam Narrative Exam Narrative: VITALS: I have reviewed the triage vital signs. GENERAL: Well developed, well appearing adult in no acute distress. NEURO: Alert and oriented x2 (person and place). Right-sided hemiparesis. Face is symmetric and expressive. EYES: PERRL. No scleral icterus or conjunctival injection. No discharge. HENT: Normocephalic, atraumatic. Hearing is grossly intact. Nares grossly patent and without discharge. Mucous membranes moist. NECK: No JVD. Patient moves neck without restriction. CARDIO: Rhythm regular. Normal rate. No murmur, rub, or gallop. Pulses equal bilaterally in the upper and lower extremity. No lower extremity edema. PULM: Lungs clear to auscultation in all maynard. No wheezes, rales, or rhonchi. No conversational dyspnea. No splinting, stridor, or accessory muscle use. GI/: Abdomen is soft and non-tender. Normoactive bowel sounds. G-tube present in the left upper quadrant. EXTREMITIES: Symmetric muscle bulk. No joint swelling. No clubbing, cyanosis, or deformity. SKIN: Warm and dry. Normal turgor. No rash or lesions appreciated. PSYCH: Mood, affect, and interaction is appropriate to the setting. Constitutional Vital Signs, click to edit/add: Last Vital Signs Temp 98.8 F 06/11/23 07:35 Pulse 90 06/11/23 10:01 Resp 16 06/11/23 10:01 BP 129/96 H 06/11/23 10:01 Pulse Ox 95 06/11/23 09:31 O2 Del Method Room Air 06/11/23 07:35 Course Vital Signs Vital signs: Vital Signs Temperature 98.8 F 06/11/23 07:35 Pulse Rate 92 H 06/11/23 07:35 Respiratory Rate 16 06/11/23 07:35 Blood Pressure 120/90 06/11/23 07:35 Pulse Oximetry 95 06/11/23 07:35 Oxygen Delivery Method Room Air 06/11/23 07:35 Temperature 98.8 F 06/11/23 07:35 Pulse Rate 90 06/11/23 10:01 Respiratory Rate 16 06/11/23 10:01 Blood Pressure 129/96 H 06/11/23 10:01 Pulse Oximetry 95 06/11/23 09:31 Oxygen Delivery Method Room Air 06/11/23 07:35 Medical Decision Making MDM Narrative Medical decision making narrative: 78-year-old female to the emergency department with chief complaint of bright red blood per rectum. Stable, the patient is afebrile. Abdominal examination is benign. She does have a G-tube in place. No report of upper gastrointestinal bleeding. She does have a small amount of bright red stool in her diaper. Basic labs, type and screen, CTA to rule out obstruction/ischemia and localization of gastrointestinal bleed. Zofran and Protonix were given. Labwork reviewed and noted. CT angiogram shows active arterial extravasation with concern for rectal ischemia. Patient reassessed. Vitals remained stable. Her hemoglobin is actually increased from her baseline. We'll obtain a repeat. Lactate to be obtained. I discussed with the Ja her common-law in the room. She was recently Per medic on this is where they wish to transfer. Her healthcare power of district attorney [place] agrees with this plan as per discussion via telephone. I discussed with the on-call general surgeon Dr. Benavidez. He recommended transfer to a facility with IR, vascular surgery, gastrointestinal, Gen surgery. Family would like transfer to [facility]. I discussed with Paige from gastrointestinal and Dr. Tsang via telephone. Date agree to accept this patient to their service. She was covered with Zosyn. Transfer was initiated. Vitals remained stable. Hemoglobin is stable on repeat. We'll call them with any changes. Medical Records Medical records reviewed: Yes I reviewed the patient's medical records Lab Data Lab results reviewed: Yes I reviewed the patient's lab results Labs: Lab Results 06/11/23 06/11/23 06/11/23 Range/Units 07:40 07:55 10:10 WBC 16.4 H (4.0-11.0) 10^3/uL RBC 4.66 (4.20-5.40) 10^6/uL Hgb 13.2 13.6 (12.0-16.0) g/dL Hct 40.9 41.8 (36.0-48.0) % MCV 87.8 (81.0-99.0) fL MCH 28.3 (26.7-34.0) pg MCHC 32.3 (29.9-35.2) g/dL RDW 15.9 H (11.0-15.0) % Plt Count 114 L (150-450) 10^3/uL MPV 11.0 (9.5-13.5) fL Neut % (Auto) 88.9 H (43.0-75.0) % Lymph % (Auto) 5.3 L (20.5-60.0) % [place] % (Auto) 4.9 (1.7-12.0) % Eos % (Auto) 0.1 L (0.9-7.0) % Baso % (Auto) 0.1 L (0.2-2.0) % Neut # (Auto) 14.6 H (1.4-6.5) 10^3/uL Lymph # (Auto) 0.9 L (1.2-3.8) 10^3/uL [place] # (Auto) 0.8 (0.3-0.8) 10^3/uL Eos # (Auto) 0.0 (0.0-0.7) 10^3/uL Baso # (Auto) 0.0 (0.0-0.1) 10^3/uL Abs Immat Gran (auto) 0.11 H (0.00-0.03) 10^3/uL Imm/Tot Granulo (auto) 0.7 H (0.0-0.5) % PT 11.8 H (9.0-11.6) sec INR 1.12 APTT 28.4 (22.3-36.2) sec Sodium 140 (136-145) mmol/L Potassium 4.2 (3.5-5.1) mmol/L Chloride 103 (98-107) mmol/L Carbon Dioxide 29.2 (21.0-32.0) mmol/L Anion Gap 12.0 BUN 27.0 H (7.0-18.0) mg/dL Creatinine 0.85 (0.55-1.02) mg/dL Est GFR ( Amer) >60 (>=60) Est GFR (Non-Af Amer) >60 (>=60) BUN/Creatinine Ratio 31.8 Glucose 117 H (74-106) mg/dL Lactate 1.5 (0.4-2.0) mmol/L Calcium 10.2 H (8.5-10.1) mg/dL Total Bilirubin 0.8 (0.2-1.0) mg/dL AST 12 L (15-37) U/L ALT 14 (14-59) U/L Alkaline Phosphatase 58 (46-116) U/L Total Protein 7.1 (6.4-8.2) g/dL Albumin 2.8 L (3.4-5.0) g/dL Globulin 4.3 g/dL Albumin/Globulin Ratio 0.7 Lipase 18.0 (16.0-77.0) U/L Urine Color (YELLOW) Urine Clarity (CLEAR) Urine pH (5.0-9.0) Ur Specific [place] (1.005-1.025) Urine Protein (NEG/TRACE) mg/dL Urine Glucose (UA) (NEGATIVE) mg/dL Urine Ketones (NEGATIVE) mg/dL Urine Occult Blood (NEGATIVE) Urine Nitrite (NEGATIVE) Urine Bilirubin (NEGATIVE) Urine Urobilinogen (0.2-1.0) EU/dL Ur Leukocyte Esterase (NEGATIVE) Urine RBC (0-2) #/HPF Urine WBC (NONE SEEN) #/HPF Ur Squamous Epith Cells (NONE/RARE) #/LPF Urine Crystals (None Seen) #/HPF Calcium Oxalate Crystal Urine Bacteria (NONE SEEN) #/HPF Urine Casts (NONE SEEN) #/LPF Urine Mucus (NONE SEEN) Ur Culture Indicated? Blood Type A Positive Antibody Screen Negative 06/11/23 Range/Units 10:44 WBC (4.0-11.0) 10^3/uL RBC (4.20-5.40) 10^6/uL Hgb (12.0-16.0) g/dL Hct (36.0-48.0) % MCV (81.0-99.0) fL MCH (26.7-34.0) pg MCHC (29.9-35.2) g/dL RDW (11.0-15.0) % Plt Count (150-450) 10^3/uL MPV (9.5-13.5) fL Neut % (Auto) (43.0-75.0) % Lymph % (Auto) (20.5-60.0) % [place] % (Auto) (1.7-12.0) % Eos % (Auto) (0.9-7.0) % Baso % (Auto) (0.2-2.0) % Neut # (Auto) (1.4-6.5) 10^3/uL Lymph # (Auto) (1.2-3.8) 10^3/uL [place] # (Auto) (0.3-0.8) 10^3/uL Eos # (Auto) (0.0-0.7) 10^3/uL Baso # (Auto) (0.0-0.1) 10^3/uL Abs Immat Gran (auto) (0.00-0.03) 10^3/uL Imm/Tot Granulo (auto) (0.0-0.5) % PT (9.0-11.6) sec INR APTT (22.3-36.2) sec Sodium (136-145) mmol/L Potassium (3.5-5.1) mmol/L Chloride (98-107) mmol/L Carbon Dioxide (21.0-32.0) mmol/L Anion Gap BUN (7.0-18.0) mg/dL Creatinine (0.55-1.02) mg/dL Est GFR ( Amer) (>=60) Est GFR (Non-Af Amer) (>=60) BUN/Creatinine Ratio Glucose (74-106) mg/dL Lactate (0.4-2.0) mmol/L Calcium (8.5-10.1) mg/dL Total Bilirubin (0.2-1.0) mg/dL AST (15-37) U/L ALT (14-59) U/L Alkaline Phosphatase (46-116) U/L Total Protein (6.4-8.2) g/dL Albumin (3.4-5.0) g/dL Globulin g/dL Albumin/Globulin Ratio Lipase (16.0-77.0) U/L Urine Color Yellow (YELLOW) Urine Clarity Clear (CLEAR) Urine pH 6.5 (5.0-9.0) Ur Specific [place] 1.015 (1.005-1.025) Urine Protein 30 A (NEG/TRACE) mg/dL Urine Glucose (UA) Negative (NEGATIVE) mg/dL Urine Ketones Negative (NEGATIVE) mg/dL Urine Occult Blood Large A (NEGATIVE) Urine Nitrite Positive A (NEGATIVE) Urine Bilirubin Negative (NEGATIVE) Urine Urobilinogen 0.2 (0.2-1.0) EU/dL Ur Leukocyte Esterase Negative (NEGATIVE) Urine RBC 20-50 A (0-2) #/HPF Urine WBC 2-5 A (NONE SEEN) #/HPF Ur Squamous Epith Cells Rare (NONE/RARE) #/LPF Urine Crystals Seen A (None Seen) #/HPF Calcium Oxalate Crystal Rare Urine Bacteria Moderate A (NONE SEEN) #/HPF Urine Casts None seen (NONE SEEN) #/LPF Urine Mucus None seen (NONE SEEN) Ur Culture Indicated? Yes Blood Type Antibody Screen Imaging Data CT scan - abdomen: Attestation: I have reviewed the pertinent imaging results. Radiologist's impression: ITS Impressions Abdomen/Pelvis CTA 06/11/23 07:35 IMPRESSION: Suspected active arterial extravasation in the rectum detailed above Rectal wall thickening with surrounding inflammatory changes and fluid in the presacral space. Consider ischemic colitis given the limited territory Extensive atherosclerosis detailed above with thoracic, abdominal and right common iliac artery aneurysms Electronically authenticated by: ARIANNE QUINTANILLA Date: 06/11/2023 09:28 ECG Data Attestation: I personally reviewed and interpreted this ECG as follows: (HR 90; NSR; NO STEMI; NORMAL QTC 400) Critical Care Time Critical Care Time Critical Care Time: Yes Total Critical Care Time: 45 Attestation: Critical Care Procedure Note Authorized and Performed by: Quincy Castillo DO Total critical care time: 45 min Due to a high probability of clinically significant, life threatening deterioration, the patient required my highest level of preparedness to intervene emergently and I personally spent this critical care time directly and personally managing the patient. This critical care time included obtaining a history; examining the patient; pulse oximetry; ordering and review of studies; arranging urgent treatment with development of a management plan; evaluation of patient's response to treatment; frequent reassessment; and, discussions with other providers. This critical care time was performed to assess and manage the high probability of imminent, life-threatening deterioration that could result in multi-organ failure. It was exclusive of separately billable procedures and treating other patients and teaching time. Please see MDM section and the rest of the note for further information on patient assessment and treatment. Discharge Plan Discharge Chief Complaint: GI Bleed Clinical Impression: Bright red rectal bleeding, Acute ischemic colitis Patient Disposition: [facility] Time of Disposition Decision: 10:50 Discharge Location: [facility] Condition: Serious Mode of Transportation: EMS Prescriptions / Home Meds: No Action melatonin 3 mg tablet 3 mg PO DAILY metoprolol tartrate 25 mg tablet ondansetron HCl 4 mg tablet 4 mg PO Q4H Rx Instructions: give 1st dose 30min before emetogenic chemo acetaminophen 500 mg powder in packet 500 mg PO Q6H PRN (Reason: fever or pain) pantoprazole 40 mg tablet,delayed release (DR/EC) 40 mg PO DAILY potassium chloride 10 mEq tablet extended release 20 meq PO DAILY amlodipine 10 mg tablet 10 mg PO QDAY carvedilol 25 mg tablet 25 mg PO BID lisinopril 40 mg tablet 40 mg PO BID Referrals: Fe Malloy MD [Primary Care Provider] - 1 week
[2023-06-11 08:05] LABS: INR 1.12; Partial Thromboplastin Time 28.4 sec (22.3-36.2); Prothrombin Time 11.8 sec (9.0-11.6)
[2023-06-11 08:09] LABS: Alanine Aminotransferase 14 U/L (14-59); Albumin Globulin Ratio 0.7; Albumin Level 2.8 g/dL (3.4-5.0); Alkaline Phosphatase 58 U/L (46-116); Aspartate Amino Transferase 12 U/L (15-37); BUN Creatinine Ratio 31.8; Bilirubin Total 0.8 mg/dL (0.2-1.0); Calcium 10.2 mg/dL (8.5-10.1); Carbon Dioxide 29.2 mmol/L (21.0-32.0); Chloride 103 mmol/L (98-107); Estimated GFR (African America >60 (>=60); Estimated GFR (Non-African Ame >60 (>=60); Globulin 4.3 g/dL; Glucose 117 mg/dL (74-106); Potassium 4.2 mmol/L (3.5-5.1); Sodium 140 mmol/L (136-145); Total Protein 7.1 g/dL (6.4-8.2)
[2023-06-11 10:15] LABS: Lactate/Lactic Acid 1.5 mmol/L (0.4-2.0)
[2023-06-11 10:19] LABS: Hematocrit 41.8 % (36.0-48.0); Hemoglobin 13.6 g/dL (12.0-16.0)
--- NOTE | 2023-06-11 10:47 | PC.NURSE ---
pt arrived with lenz in place. sediment seen in tubing. urine leaking around catheter. Lenz catheter changed in ER.
[2023-06-11 11:02] LABS: Bilirubin Urine NEGATIVE (NEGATIVE); Blood Urine LARGE (NEGATIVE); Clarity Urine CLEAR (CLEAR); Color Urine YELLOW (YELLOW); Glucose Urine UA NEGATIVE (NEGATIVE); Ketones Urine NEGATIVE (NEGATIVE); Leukocyte Esterase Urine NEGATIVE (NEGATIVE); Nitrite Urine POSITIVE (NEGATIVE); Protein Urine 30 mg/dL (NEG/TRACE); Specific Gravity Urine 1.015 (1.005-1.025); Urine Microscopic Indicated YES; Urobilinogen Urine 0.2 EU/dL (0.2-1.0); pH Urine 6.5 (5.0-9.0)
[2023-06-11 11:09] LABS: Bacteria Urine MODERATE #/HPF (NONE SEEN); RBC Urine 20-50 #/HPF (0-2)
[2023-06-11 11:10] LABS: Calcium Oxalate Crystals Urine RARE; Cast Seen? NONE SEEN #/LPF (NONE SEEN); Crystals Seen? Seen #/HPF (None Seen); Mucus Urine NONE SEEN (NONE SEEN); Squamous Epithelial Cell Urine RARE #/LPF (NONE/RARE); Urine Culture Indicated YES
[2023-06-11] MEDS: PIPERACILLIN SODIUM/TAZOBACTAM 4.5 GM in 0.9 % SODIUM CHLORIDE 50 ML IV (11:35)
[2023-06-11 14:22] LABS: Hematocrit 40.3 % (36.0-48.0); Hemoglobin 12.8 g/dL (12.0-16.0)
[2023-06-11 15:04] LABS: Lactate/Lactic Acid 1.1 mmol/L (0.4-2.0)
[2023-06-11] MEDS: 0.9 % SODIUM CHLORIDE 1,000 ML 100 ML IV (19:48)
[2023-06-11] MEDS: PIPERACILLIN SODIUM/TAZOBACTAM 3.375 GM in 0.9 % SODIUM CHLORIDE 50 ML IV (19:48)
[2023-06-11 22:28] LABS: Hematocrit 38.1 % (36.0-48.0); Hemoglobin 11.8 g/dL (12.0-16.0)
[2023-06-12] VITALS (109 sets, daily range): BP systolic 130–160; BP diastolic 82–99; PULSE 76–96; RESP 10–27; TEMP 36.3; O2SAT 93–97
[2023-06-12] MEDS: ONDANSETRON PF 4 MG/2 ML VIAL IV ×2 (00:53→19:30)
[2023-06-12 03:31] LABS: Basophils Percent Auto 0.2 % (0.2-2.0); Eosinophils Percent Auto 0.2 % (0.9-7.0); Hematocrit 38.2 % (36.0-48.0); Immature Granulocytes Abs Auto 0.08 10^3/uL (0.00-0.03); Immature Granulocytes Pct Auto 0.6 % (0.0-0.5); Lymphocytes Percent Auto 7.8 % (20.5-60.0); Mean Corpuscular HGB Conc 31.4 g/dL (29.9-35.2); Mean Platelet Volume 10.4 fL (9.5-13.5); Monocytes Absolute Auto 0.8 10^3/uL (0.3-0.8); Monocytes Percent Auto 6.4 % (1.7-12.0); Neutrophils Absolute Auto 10.8 10^3/uL (1.4-6.5); Neutrophils Percent Auto 84.8 % (43.0-75.0); Platelet Count 85 10^3/uL (150-450); Red Blood Count 4.29 10^6/uL (4.20-5.40); Red Cell Distribution Width 15.9 % (11.0-15.0); White Blood Count 12.8 10^3/uL (4.0-11.0)
[2023-06-12] MEDS: PIPERACILLIN SODIUM/TAZOBACTAM 3.375 GM in 0.9 % SODIUM CHLORIDE 50 ML IV ×3 (03:31→19:30)
[2023-06-12 03:37] LABS: Anion Gap 10.5; BUN Creatinine Ratio 33.8; Calcium 9.6 mg/dL (8.5-10.1); Carbon Dioxide 28.2 mmol/L (21.0-32.0); Chloride 110 mmol/L (98-107); Estimated GFR (African America >60 (>=60); Estimated GFR (Non-African Ame >60 (>=60); Glucose 102 mg/dL (74-106); Potassium 3.7 mmol/L (3.5-5.1); Sodium 145 mmol/L (136-145)
[2023-06-12] MEDS: 0.9 % SODIUM CHLORIDE 1,000 ML 100 ML IV ×2 (05:59→15:36)
[2023-06-12] MEDS: LEVOFLOXACIN IN DEXTROSE 5 % 750 MG/150 ML IV.SOLN 100 MG IV (08:17)
[2023-06-12] MEDS: PANTOPRAZOLE SODIUM 40 MG VIAL IV ×2 (08:17→22:02)
--- NOTE | 2023-06-12 08:56 | P.HP_ITS ---
[facility] Medical History (Updated 06/11/23 @ 20:50 by Bailey Magana) Nontraumatic intracerebral hemorrhage in hemisphere, subcortical ?I61.0 - Nontraumatic intracerebral hemorrhage in hemisphere, subcortical (ICD-10) Gastrostomy in place ?Z93.1 - Gastrostomy status (ICD-10) Restlessness and agitation ?R45.1 - Restlessness and agitation (ICD-10) Altered mental status ?R41.82 - Altered mental status, unspecified (ICD-10) GERD (gastroesophageal reflux disease) ?K21.9 - Gastro-esophageal reflux disease without esophagitis (ICD-10) Hypertension ?I10 - Essential (primary) hypertension (ICD-10) Nonrheumatic mitral (valve) insufficiency ?I34.0 - Nonrheumatic mitral (valve) insufficiency (ICD-10) Nonrheumatic tricuspid (valve) insufficiency ?I36.1 - Nonrheumatic tricuspid (valve) insufficiency (ICD-10) Thrombocytopenia ?D69.6 - Thrombocytopenia, unspecified (ICD-10) Abdominal aortic aneurysm ?I71.40 - Abdominal aortic aneurysm, without rupture, unspecified (ICD-10) Hyperlipidemia ?E78.5 - Hyperlipidemia, unspecified (ICD-10) Hypernatremia ?E87.0 - Hyperosmolality and hypernatremia (ICD-10) Hyperosmolality ?E87.0 - Hyperosmolality and hypernatremia (ICD-10) Pneumonitis ?J98.4 - Other disorders of lung (ICD-10) Dysphagia ?R13.10 - Dysphagia, unspecified (ICD-10) Aphasia ?R47.01 - Aphasia (ICD-10) Hemiparesis ?G81.90 - Hemiplegia, unspecified affecting unspecified side (ICD-10) Hemiplegia ?G81.90 - Hemiplegia, unspecified affecting unspecified side (ICD-10) Social History Smoking status: Current every day smoker Meds Home Medications and Allergies Home Medications Medication Instructions Recorded Confirmed Type pantoprazole 40 mg tablet,delayed 40 mg PO DAILY 03/31/23 06/11/23 History release potassium chloride 10 mEq 20 meq PO BID 03/31/23 06/11/23 History tablet,extended release carvedilol 25 mg tablet 25 mg PO BID 04/28/23 06/11/23 History lisinopril 40 mg tablet 40 mg PO DAILY 04/28/23 06/11/23 History citalopram 20 mg tablet (Celexa) 20 mg PO DAILY 06/11/23 06/11/23 History melatonin 3 mg tablet 3 mg PO .QHS 06/11/23 06/12/23 History metoprolol tartrate 25 mg tablet 25 mg PO Q12H 06/11/23 06/11/23 History ondansetron HCl 4 mg tablet 4 mg PO Q8H PRN nausea and vomiting 06/11/23 06/12/23 History acetaminophen 500 mg tablet 1,000 mg PO Q6H PRN fever or pain 06/12/23 06/12/23 History (Tylenol Extra Strength) amlodipine 5 mg tablet (Norvasc) 5 mg PO DAILY 06/12/23 06/12/23 History Allergies Allergy/AdvReac Type Severity Reaction Status Date / Time acetaminophen [From Percocet] Allergy Unknown Verified 03/31/23 22:00 bee venom protein (honey bee) Allergy Unknown Verified 06/11/23 07:43 oxycodone [From Percocet] Allergy Unknown Verified 03/31/23 22:00 bacitracin Allergy Blister Verified 03/31/23 22:00 [From Neosporin ([id number]-evh-[id number])] neomycin Allergy Blister Verified 03/31/23 22:00 [From Neosporin (ymv-cco-jhdvs)] polymyxin B Allergy Blister Verified 03/31/23 22:00 [From Neosporin (rml-eyt-fnnif)] ciprofloxacin [From Cipro] AdvReac Headache Verified 03/31/23 22:00 alendronate Allergy Severe Uncoded 06/11/23 07:43 Exam Constitutional Vital Signs, click to edit/add: Last Vital Signs Temp 97.3 F L 06/12/23 06:12 Pulse 88 06/12/23 07:50 Resp 17 06/12/23 07:50 BP 145/82 H 06/12/23 07:31 Pulse Ox 96 06/12/23 07:31 O2 Del Method Room Air 06/12/23 06:12 Documenting provider has reviewed patient's vital signs: yes Common normals: no apparent distress Chest Common normals: inspection of chest normal Respiratory Common normals: normal respiratory effort and no retractions Cardio Common normals: regular rate and regular rhythm GI Common normals: Normal to inspection, nondistended, normoactive bowel sounds present, soft to palpation and non-tender (Rebound tenderness) Results Labs Labs: Short CBC 06/11/23 06/11/23 06/11/23 Range/Units 10:10 14:10 22:03 WBC (4.0-11.0) 10^3/uL Hgb 13.6 12.8 11.8 L (12.0-16.0) g/dL Hct 41.8 40.3 38.1 (36.0-48.0) % Plt Count (150-450) 10^3/uL 06/12/23 Range/Units 03:21 WBC 12.8 H (4.0-11.0) 10^3/uL Hgb 12.0 (12.0-16.0) g/dL Hct 38.2 (36.0-48.0) % Plt Count 85 L (150-450) 10^3/uL BMP 06/12/23 03:21 Sodium 145 Potassium 3.7 Chloride 110 H Carbon Dioxide 28.2 BUN 25.0 H Creatinine 0.74 Glucose 102 Calcium 9.6 Urine 06/11/23 Range/Units 10:44 Urine Color Yellow (YELLOW) Urine Clarity Clear (CLEAR) Urine pH 6.5 (5.0-9.0) Ur Specific [place] 1.015 (1.005-1.025) Urine Protein 30 A (NEG/TRACE) mg/dL Urine Glucose (UA) Negative (NEGATIVE) mg/dL Assessment and Plan Assessment and Plan (1) Acute ischemic colitis: Plan Uncontrolled hypertension, leukocytosis, thrombocytopenia, acute bright red blood per rectum likely secondary to his acute ischemic colitis. Continue with current IV antibiotics. Blood cultures are pending. Discussed transfer with tertiary care facility for later today. Acute UTI-check on urine culture. Likely will be back before transfer. Acute blood loss anemia secondary to the acute bleeding as outlined above- continue to monitor. Repeat CBC at noon- Leukocytosis-improving, maintain current antibiotics Fairly recent hemorrhagic stroke-no new complaints, denies headache Hypertension-continue with home medications. GERD-continue with home medications Due to the severity of the illness with leukocytosis and acute ischemic colitis, patient likely at least a 2 to 3-day hospital stay, patient placed inpatient status due to medically necessary treatment as outlined above Urinary Catheter Management Urinary Catheter Management Urethral: Cath placed during this visit: yes Urethral indwelling: No Insertion date: 06/11/23 Insertion time: 10:46
--- NOTE | 2023-06-12 10:49 | CM.NOTE ---
Rounds made with Dr. Mcclelland. Awaiting transfer to Tertiary Facility.
--- NOTE | 2023-06-12 10:51 | PHOTOS ---
no ulcerations to coccyx
--- NOTE | 2023-06-12 11:18 | W.PM.WC_ITS ---
Wound Consult Note Assessment and Plan (1) Acute ischemic colitis: Plan Consult: Buttocks wound Consult to assess patient for buttocks wound. Patient currently waiting for a transfer to [facility]. Assisted by bedside RN to turn patient due to hemiparesis to right (S/P CVA). Patient has a border foam dressing in place over coccyx/sacral area. After removal of dressing, intact skin noted. No rash, excoriation or irritation noted. This is being used for prevention due to patient's increased risk of developing pressure ulcers. No pain, no complaints to this area per patient. Patient is actively stooling/passing pink mucous. Pericare provided and new underpad placed. Perirectal skin intact/moist. Patient is in a PRAFO boot to her right lower leg as well as a custom molded splint to her right arm. PRAFO removed and skin inspected. Loose scabbed/dry skin removed from heel. Intact, blanching skin noted underneath. Skin is very dry. Recommendations: Triad paste to periarea as needed due to stooling/passing mucous per rectum to protect skin Reposition frequently Lac Hydrin lotion to dry scaly skin to bilateral lower legs/heels/feet daily No photos taken as no ulcerations present. Will sign off as patient will be getting transferred to [place]. Irvin Hopper, RUTHANNN, RN, CWON
[2023-06-12 12:40] LABS: Basophils Percent Auto 0.1 % (0.2-2.0); Eosinophils Percent Auto 0.4 % (0.9-7.0); Hematocrit 35.5 % (36.0-48.0); Hemoglobin 11.2 g/dL (12.0-16.0); Immature Granulocytes Abs Auto 0.07 10^3/uL (0.00-0.03); Immature Granulocytes Pct Auto 0.6 % (0.0-0.5); Lymphocytes Absolute Auto 0.7 10^3/uL (1.2-3.8); Lymphocytes Percent Auto 6.6 % (20.5-60.0); Mean Corpuscular HGB Conc 31.5 g/dL (29.9-35.2); Mean Corpuscular Hemoglobin 27.9 pg (26.7-34.0); Mean Corpuscular Volume 88.5 fL (81.0-99.0); Mean Platelet Volume 11.3 fL (9.5-13.5); Monocytes Absolute Auto 0.7 10^3/uL (0.3-0.8); Monocytes Percent Auto 6.7 % (1.7-12.0); Neutrophils Absolute Auto 9.4 10^3/uL (1.4-6.5); Neutrophils Percent Auto 85.6 % (43.0-75.0); Platelet Count 83 10^3/uL (150-450); Red Blood Count 4.01 10^6/uL (4.20-5.40); Red Cell Distribution Width 15.8 % (11.0-15.0); White Blood Count 10.9 10^3/uL (4.0-11.0)
--- NOTE | 2023-06-12 15:56 | SWNOTE1 ---
SW reviewed IMM form with pt, she voiced understanding, but was not able to move her right arm to sign paper. She would like SW to call her significant other. SW called and he was just arriving to hospital. SW went back to room and reviewed IMM form with pt's significant other, he voiced understanding, no questions. He signed form, original given to pt and copy placed on chart.
--- NOTE | 2023-06-12 18:12 | P.DS_ITS ---
DS: Providers Provider Date of admission: 06/11/23 19:34 Primary care physician: Fe Malloy MD Consults: 06/12/23 Consult to Wound Care Routine Consulting Provider: Irvin Hopper Reason for consultation: wound 06/12/23 08:57 Consult to Pharmacy Routine Consulting Provider: Felicity Castellanos Reason for consultation: Notify physician when med rec completed Has provider been notified: No DS: Diagnosis Discharge Diagnosis (1) Acute ischemic colitis: Assessment and plan: Uncontrolled hypertension, leukocytosis, thrombocytopenia, acute bright red blood per rectum likely secondary to his acute ischemic colitis. Continue with current IV antibiotics. Blood cultures are pending. Discussed transfer with tertiary care facility for later today. Acute UTI-check on urine culture. Likely will be back before transfer. Acute blood loss anemia secondary to the acute bleeding as outlined above- continue to monitor. Repeat CBC at noon- Leukocytosis-improving, maintain current antibiotics Fairly recent hemorrhagic stroke-no new complaints, denies headache Hypertension-continue with home medications. GERD-continue with home medications Due to the severity of the illness with leukocytosis and acute ischemic colitis, patient likely at least a 2 to 3-day hospital stay, patient placed inpatient status due to medically necessary treatment as outlined above DS: Summary Status at Discharge Cognitive/behavioral status at discharge: Patient was seen and evaluated in the emergency room with bright red blood per rectum and some crampy abdominal pain. Found to have leukocytosis and CT evidence of acute ischemic colitis. Patient was placed in inpatient status for medically necessary treatment. Patient was given IV antibiotics, fluid resuscitation, maintain n.p.o. status. The following day her hemoglobin is trickled down she is down 2 g overall. Not enough for transfusion. Leukocytosis is improving. Patient was agreed on transfer and was accepted at an outside tertiary care facility for investigation of acute ischemic colitis. Patient be [facility] Time Spent with Patient Time attestation: Total time spent providing and/or coordinating discharge services: Exam Constitutional Vital Signs, click to edit/add: Last Vital Signs Temp 97.3 F L 06/12/23 06:12 Pulse 92 H 06/12/23 17:20 Resp 13 06/12/23 17:20 BP 130/87 06/12/23 16:51 Pulse Ox 96 06/12/23 07:31 O2 Del Method Room Air 06/12/23 06:12 Documenting provider has reviewed patient's vital signs: yes Common normals: no apparent distress Chest Common normals: inspection of chest normal Respiratory Common normals: normal respiratory effort and no retractions Cardio Common normals: regular rate and regular rhythm GI Common normals: Normal to inspection, nondistended, normoactive bowel sounds present, soft to palpation and non-tender (Rebound tenderness) DS: Data Data Completed and Pending Labs on day of discharge: Labs from last 24 hours 06/12/23 06/12/23 06/11/23 12:02 03:21 22:03 WBC 10.9 12.8 H RBC 4.01 L 4.29 Hgb 11.2 L 12.0 11.8 L Hct 35.5 L 38.2 38.1 MCV 88.5 89.0 MCH 27.9 28.0 MCHC 31.5 31.4 RDW 15.8 H 15.9 H Plt Count 83 L 85 L MPV 11.3 10.4 Neut % (Auto) 85.6 H 84.8 H Lymph % (Auto) 6.6 L 7.8 L [place] % (Auto) 6.7 6.4 Eos % (Auto) 0.4 L 0.2 L Baso % (Auto) 0.1 L 0.2 Neut # (Auto) 9.4 H 10.8 H Lymph # (Auto) 0.7 L 1.0 L [place] # (Auto) 0.7 0.8 Eos # (Auto) 0.0 0.0 Baso # (Auto) 0.0 0.0 Abs Immat Gran (auto) 0.07 H 0.08 H Imm/Tot Granulo (auto) 0.6 H 0.6 H Sodium 145 Potassium 3.7 Chloride 110 H Carbon Dioxide 28.2 Anion Gap 10.5 BUN 25.0 H Creatinine 0.74 Est GFR ( Amer) >60 Est GFR (Non-Af Amer) >60 BUN/Creatinine Ratio 33.8 Glucose 102 Calcium 9.6 Preliminary micro results at discharge 06/11/23 10:44 Urine Culture - Preliminary Urine,Clean Catch Escherichia coli Discharge Plan Discharge Disposition: Xfer Acute Care Hospital Condition: Serious
[2023-06-13 00:09] VITALS: BP 147/99; PULSE 84; RESP 17; TEMP 36.5; O2SAT 95
== END 2023-06-13 01:25 | disposition short-term general hospital (02) ==
LOC: ER 11:52 → ICU 19:38
PROVIDERS: Registered Nurse; Admitting Provider Family Medicine; Emergency Provider Student in an Organized Health Care Education/Training Program; PCP Family Medicine; Visit Provider Family Medicine
DX: K55.039 Acute (reversible) ischemia of large intestine, extent unspecified (principal); K62.5 Hemorrhage of anus and rectum; N39.0 Urinary tract infection, site not specified; K21.9 Gastro-esophageal reflux disease without esophagitis; I10 Essential (primary) hypertension; E78.5 Hyperlipidemia, unspecified; D72.829 Elevated white blood cell count, unspecified; D69.6 Thrombocytopenia, unspecified; D62 Acute posthemorrhagic anemia; I69.351 Hemiplegia and hemiparesis following cerebral infarction affecting right dominant side; F17.210 Nicotine dependence, cigarettes, uncomplicated; Z79.899 Other long term (current) drug therapy; Z93.1 Gastrostomy status; B96.20 Unspecified Escherichia coli [E. coli] as the cause of diseases classified elsewhere
CPT/HCPCS: 36415; 51702; 74174; 80048; 80053; 81001; 83605; 83690; 85014; 85018; 85025; 85610; 85730; 86850; 86900; 86901; 87086; 87150; 87186; 87507; 93005; 96361; 96365; 96366; 96367; 96375; 96376; 99285; G0378; Q9967

== ENCOUNTER 2023-08-15 09:24 | Outpatient (OUT) | payer MEDICARE, OTHER, SELFPAY ==
--- NOTE | 2023-08-15 09:34 | CT_ITS ---
[address] [address] Patient Name: SMITHA CHAN MRN: [id number] date: 1945 Sex: F Assigned Patient Location: LAB Current Patient Location: LAB Accession/Order Number: [id number] Exam Date: 08/15/2023 09:55 Report Date: 08/15/2023 11:13 At the request of: LEON HARVEY Procedure: CT angio abdomen pelvis EXAMINATION: CT angio abdomen pelvis HISTORY: History of abdominal aortic aneurysm repair Z98.890 COMPARISON: CT abdomen and pelvis 06/11/2023 TECHNIQUE: Axial, Coronal, and Sagittal CT images without and with IV contrast. Multi-planar/3-D imaging to optimize visualization of vascular anatomy. Dose reduction techniques were achieved by using automated exposure control and/or adjustment of mA and/or kV according to patient size and/or use of iterative reconstruction technique. FINDINGS: AORTA/VASCULAR: Stable aneurysmal dilation and prior endovascular stenting of the descending thoracic aorta through iliac arteries. Maximum diameter involves the infrarenal aorta, 4.2 cm. No evidence of extravasation. Stable aneurysmal dilation and prior stenting of the right common iliac artery, 3.5 cm in diameter. 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 CELIAC ARTERY: Normal celiac vessels. SMA: Normal mesenteric vessels. RENAL ARTERIES: Narrowing of the renal arteries at their origins. LUNG BASES: Trace amount of atelectasis or possibly infiltrates within posterior right lung base. Mild bronchiectasis within lung bases. LIVER: No enlargement, atrophy, abnormal density, or significant focal lesion. BILIARY: Cholecystectomy. PANCREAS: No lesion, fluid collection, ductal dilatation, or atrophy. SPLEEN: No enlargement or focal lesion. ADRENALS: No mass or enlargement. KIDNEYS: Septated right renal cyst versus 2 adjacent cysts with combined diameter of 4.2 cm. The cephalad portion is fluid density, the lower portion 74 Hounsfield units and may represent a hemorrhagic cyst or soft tissue component. Prominent left renal pelvis pseudocysts. BOWEL/MESENTERY: PEG tube position within body of stomach without appreciable leakage. Diverticulosis of sigmoid colon without acute inflammatory changes. No visible mass, obstruction, or bowel wall thickening. Normal appendix. RETROPERITONEUM: No mass or adenopathy. LYMPH NODES: No adenopathy. URINARY BLADDER: Nondistended urinary bladder with Larios catheter in place. PELVIC ORGANS: No visible mass. Pelvic organs appropriate for patient age. ABDOMINAL WALL: No mass or hernia. BONES: Stable mild compression fracture of L4, favoring chronic changes. OTHER: Negative. CT/CT angio abdomen pelvis IMPRESSION: 1. Stable aneurysmal dilation and prior stenting of thoracic aorta through iliac arteries. 2. Complex right renal cyst versus mass. Further evaluation is recommended. Consider ultrasound evaluation of the kidneys, or alternatively CT abdomen without and with IV contrast to evaluate enhancement characteristics or MRI of the abdomen. 3. Multiple chronic changes detailed above. Electronically authenticated by: ANTOLIN VALLADARES Date: 08/15/2023 11:13
[2023-08-15 09:37] LABS: Estimated GFR (African America >60 (>=60); Estimated GFR (Non-African Ame >60 (>=60)
== END 2023-08-15 09:25 | disposition home or self-care (01) ==
LOC: LAB 09:25
PROVIDERS: PCP Family Medicine; Visit Provider Student in an Organized Health Care Education/Training Program
DX: I71.13 Aneurysm of the descending thoracic aorta, ruptured (principal); Z98.890 Other specified postprocedural states; N28.89 Other specified disorders of kidney and ureter
CPT/HCPCS: 36415; 74174; 82565; Q9967

== ENCOUNTER 2024-07-21 12:26 | Outpatient (OUT) | payer MEDICARE, OTHER, SELFPAY ==
--- NOTE | 2024-07-21 | CT_ITS ---
The [address] [address] Patient Name: SMITHA CHAN MRN: [id number] date: 1945 Sex: F Assigned Patient Location: LAB Current Patient Location: LAB Accession/Order Number: [id number] Exam Date: 07/21/2024 14:36 Report Date: 07/21/2024 15:04 At the request of: LEON HARVEY MD Procedure: CT angio abdomen pelvis CTA chest and CTA abdomen and pelvis . CLINICAL DATA: Abdominal aortic aneurysm follow-up.. TECHNIQUE: Intravenous contrast-enhanced CT angiography of the chest and CT angiography of the abdomen and pelvis were performed. Axial, sagittal, coronal, and 3D-dimensional reconstructions were created and reviewed. These CT exams were performed using one or more of the following dose reduction techniques: Automated exposure control, adjustment of the mA and/or kV according to patient size, or use of iterative reconstruction technique. COMPARISON: CT abdomen and pelvis 09/04/2023 CTA chest 07/26/2021. FINDINGS: Chest: Mediastinum:Endovascular repair of the descending thoracic aorta similar to the prior study. The stent graft appears patent. There is aneurysmal dilatation of the aortic arch measuring 4.8 cm in greatest axial dimension similar to the prior study once measuring 4.7 cm on the 2021 study. No dissection or rupture is seen. Pulmonary trunk appears nondilated. Cardiomegaly. No pericardial effusion. No lymphadenopathy. The esophagus is grossly unremarkable. Lungs:Bibasilar atelectasis. Dependent atelectatic changes. No consolidation pneumothorax or pleural effusion. No suspicious pulmonary nodule. Soft tissues/Bones: Soft tissues demonstrate no acute process. Osseous structures demonstrate degenerative changes. Mild compression deformity T5 vertebral body new since the 2021 study. No acute fracture line or retropulsion into the spinal canal is seen. Abdomen and pelvis: Organs:Gallbladder has been removed. Splenic granulomas. Liver pancreas and adrenal glands appear unremarkable. Cystic changes involving the kidneys. 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 The graft appears patent.. [place] aneurysmal sac measures 6.3 cm with what appears to be an endoleak on axial image 105 series 4. Previous [place] aneurysmal sac size is 5.5 cm. 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 No critical stenosis or occlusion is seen involving the major visceral branches of the aorta. ] GI: Stomach demonstrates a small hiatal hernia. Small bowel appears nondilated. No acute colonic abnormality. Left colon diverticulosis.[ Pelvis:[Uterus has been removed. Urinary bladder is grossly unremarkable.] Peritoneum/Retroperitoneum:No free air or free fluid or lymphadenopathy.[ Abd wall/Bones:No acute findings.[Osseous structures demonstrate degenerative change. CT/CT angio chest IMPRESSION: 1. No significant change in thoracic aortic findings compared to the prior study from 2021. Stent involving the descending thoracic aorta appears patent. 2. There appears to be a new endoleak involving the patient's endovascular repair of a fusiform type infrarenal abdominal aortic aneurysm with interval progression of size of the [place] aneurysmal sac now measuring 6.3 cm. Type of endoleak is unclear. If intervention is not performed, CTA follow-up is recommended. 3. Compression deformity T5 vertebral body new since 2021. Impression dictated by: Kit Quinonez Jr., D.O.07/21/2024 3:04 PM Dictation Location: [place] [address] Electronically authenticated by: [id number] Y Date: 07/21/2024 15:04
--- NOTE | 2024-07-21 | CT_ITS ---
The [address] [address] Patient Name: SMITHA CHAN MRN: [id number] date: 1945 Sex: F Assigned Patient Location: LAB Current Patient Location: LAB Accession/Order Number: [id number] Exam Date: 07/21/2024 14:36 Report Date: 07/21/2024 15:04 At the request of: LEON HARVEY MD Procedure: CT angio abdomen pelvis CTA chest and CTA abdomen and pelvis . CLINICAL DATA: Abdominal aortic aneurysm follow-up.. TECHNIQUE: Intravenous contrast-enhanced CT angiography of the chest and CT angiography of the abdomen and pelvis were performed. Axial, sagittal, coronal, and 3D-dimensional reconstructions were created and reviewed. These CT exams were performed using one or more of the following dose reduction techniques: Automated exposure control, adjustment of the mA and/or kV according to patient size, or use of iterative reconstruction technique. COMPARISON: CT abdomen and pelvis 09/04/2023 CTA chest 07/26/2021. FINDINGS: Chest: Mediastinum:Endovascular repair of the descending thoracic aorta similar to the prior study. The stent graft appears patent. There is aneurysmal dilatation of the aortic arch measuring 4.8 cm in greatest axial dimension similar to the prior study once measuring 4.7 cm on the 2021 study. No dissection or rupture is seen. Pulmonary trunk appears nondilated. Cardiomegaly. No pericardial effusion. No lymphadenopathy. The esophagus is grossly unremarkable. Lungs:Bibasilar atelectasis. Dependent atelectatic changes. No consolidation pneumothorax or pleural effusion. No suspicious pulmonary nodule. Soft tissues/Bones: Soft tissues demonstrate no acute process. Osseous structures demonstrate degenerative changes. Mild compression deformity T5 vertebral body new since the 2021 study. No acute fracture line or retropulsion into the spinal canal is seen. Abdomen and pelvis: Organs:Gallbladder has been removed. Splenic granulomas. Liver pancreas and adrenal glands appear unremarkable. Cystic changes involving the kidneys. 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 The graft appears patent.. [place] aneurysmal sac measures 6.3 cm with what appears to be an endoleak on axial image 105 series 4. Previous [place] aneurysmal sac size is 5.5 cm. 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 No critical stenosis or occlusion is seen involving the major visceral branches of the aorta. ] GI: Stomach demonstrates a small hiatal hernia. Small bowel appears nondilated. No acute colonic abnormality. Left colon diverticulosis.[ Pelvis:[Uterus has been removed. Urinary bladder is grossly unremarkable.] Peritoneum/Retroperitoneum:No free air or free fluid or lymphadenopathy.[ Abd wall/Bones:No acute findings.[Osseous structures demonstrate degenerative change. CT/CT angio abdomen pelvis IMPRESSION: 1. No significant change in thoracic aortic findings compared to the prior study from 2021. Stent involving the descending thoracic aorta appears patent. 2. There appears to be a new endoleak involving the patient's endovascular repair of a fusiform type infrarenal abdominal aortic aneurysm with interval progression of size of the [place] aneurysmal sac now measuring 6.3 cm. Type of endoleak is unclear. If intervention is not performed, CTA follow-up is recommended. 3. Compression deformity T5 vertebral body new since 2021. Impression dictated by: Kit Quinonez Jr., D.O.07/21/2024 3:04 PM Dictation Location: [place] [address] Electronically authenticated by: [id number] Y Date: 07/21/2024 15:04
[2024-07-21 12:50] LABS: Estimated GFR (African America 55 (>=60 mL/min/1.73m^2); Estimated GFR (Non-African Ame 46 (>=60 mL/min/1.73m^2)
== END 2024-07-21 12:27 | disposition home or self-care (01) ==
LOC: LAB 12:29
PROVIDERS: PCP Family Medicine; Visit Provider Student in an Organized Health Care Education/Training Program
DX: I71.40 Abdominal aortic aneurysm, without rupture, unspecified (principal); K55.9 Vascular disorder of intestine, unspecified
CPT/HCPCS: 36415; 71275; 74174; 82565; Q9967

== ENCOUNTER 2025-01-21 07:58 | Outpatient (OUT) | payer MEDICARE, OTHER, SELFPAY ==
--- OUTSIDE RECORDS SUMMARY | 2025-01-21 08:04 | XMS_ITS | Encounter Summary ---
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 Name Role Phone Unavailable Primary Care Provider Unavailabl e Encounter Details Date Type Department Care Team (Late st Contact Info) Description 08/15/2023 Clinisync Result Encounter [facility] Unsolicited Gustavo Badillo MD [address], [place] [id number] Social History Tobacco Use Types Packs/Day Years Used Date Smoking Tobacco: Never Assessed Comments Unknown Sex and Gender Information Value Date Recorded Sex Assigned at Not on file Legal Sex Female 8:33 PM EDT Gender Identity Not on file Sexual Orientation Not on file documented as of this encounter Plan of Treatment Not on file documented as of this encounter Procedures Procedure Name Priority Date/Time Associated Diagnosis Comments CT ANGIO ABDOMEN PELVIS 08/15/2023 11:13 AM EDT documented in this encounter Results * CT ANGIO ABDOMEN PELVIS (08/15/2023 11:13 AM EDT) Anatomical Region Laterality Modality Other 08/15/2023 11:1 3 AM EDT Narrative 08/15/2023 11:15 AM EDT [address] [address] [address] Scan Report Signed Patient: ELLEN SÁNCHEZ MR#: [id number] : 1945 Acct:[id number] Age/Sex: 78 / F ADM Date: 08/15/23 Loc: LAB Attending Dr: Gustavo Badillo M.D. Ordering Physician: Gustavo Badillo M.D. Date of Service: 08/15/23 Procedure(s): CT angio abdomen pelvis Accession Number(s): [id number] cc: Fe Malloy M.D. [place] [id number] Patient Name: ELLEN SÁNCHEZ MRN: [id number] date: 1945 Sex: F Assigned Patient Location: LAB Current Patient Location: LAB Accession/Order Number: [id number] Exam Date: 08/15/2023 09:55 Report Date: 08/15/2023 11:13 At the request of: GUSTAVO BADILLO Procedure: CT angio abdomen pelvis EXAMINATION: CT angio abdomen pelvis HISTORY: History of abdominal aortic aneurysm repair Z98.890 COMPARISON: CT abdomen and pelvis 06/11/2023 TECHNIQUE: Axial, Coronal, and Sagittal CT images without and with IV contrast. Multi-planar/3-D imaging to optimize visualization of vascular anatomy. Dose reduction techniques were achieved by using automated exposure control and/or adjustment of mA and/or kV according to patient size and/or use of iterative reconstruction technique. FINDINGS: AORTA/VASCULAR: Stable aneurysmal dilation and prior endovascular stenting of the descending thoracic aorta through iliac arteries. Maximum diameter involves the infrarenal aorta, 4.2 cm. No evidence of extravasation. Stable aneurysmal dilation and prior stenting of the right common iliac artery, 3.5 cm in diameter. 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 CELIAC ARTERY: Normal celiac vessels. SMA: Normal mesenteric vessels. RENAL ARTERIES: Narrowing of the renal arteries at their origins. LUNG BASES: Trace amount of atelectasis or possibly infiltrates within posterior right lung base. Mild bronchiectasis within lung bases. LIVER: No enlargement, atrophy, abnormal density, or significant focal lesion. BILIARY: Cholecystectomy. PANCREAS: No lesion, fluid collection, ductal dilatation, or atrophy. SPLEEN: No enlargement or focal lesion. ADRENALS: No mass or enlargement. KIDNEYS: Septated right renal cyst versus 2 adjacent cysts with combined diameter of 4.2 cm. The cephalad portion is fluid density, the lower portion 74 Hounsfield units and may represent a hemorrhagic cyst or soft tissue component. Prominent left renal pelvis pseudocysts. BOWEL/MESENTERY: PEG tube position within body of stomach without appreciable leakage. Diverticulosis of sigmoid colon without acute inflammatory changes. No visible mass, obstruction, or bowel wall thickening. Normal appendix. RETROPERITONEUM: No mass or adenopathy. LYMPH NODES: No adenopathy. URINARY BLADDER: Nondistended urinary bladder with Larios catheter in place. PELVIC ORGANS: No visible mass. Pelvic organs appropriate for patient age. ABDOMINAL WALL: No mass or hernia. BONES: Stable mild compression fracture of L4, favoring chronic changes. OTHER: Negative. CT/CT angio abdomen pelvis IMPRESSION: 1. Stable aneurysmal dilation and prior stenting of thoracic aorta through iliac arteries. 2. Complex right renal cyst versus mass. Further evaluation is recommended. Consider ultrasound evaluation of the kidneys, or alternatively CT abdomen without and with IV contrast to evaluate enhancement characteristics or MRI of the abdomen. 3. Multiple chronic changes detailed above. Electronically authenticated by: RUSS CABALLERO Date: 08/15/2023 11:13 Dictated By: Russ Caballero M.D. Signed By: 08/15/23 1115 DD/ 1113 TD/TT: Rn Trauma: Procedure Note Radiology, Radiologist, MD - 08/15/2023 [place] [address] CT Scan Report Signed Patient: ELLEN SÁNCHEZ LMR#: [id number] : 1945cct:[id number] Age/Sex: 78 / FADM Date: 08/15/23 Loc: LAB Attending Dr: Gustavo Badillo M.D. Ordering Physician: Gustavo Badillo M.D. Date of Service: 08/15/23 Procedure(s): CT angio abdomen pelvis Accession Number(s): [id number] cc: Fe Malloy M.D. The [place] [address] Patient Name: ELLEN SÁNCHEZ MRN: [id number] date: 1945 Sex: F Assigned Patient Location: LAB Current Patient Location: LAB Accession/Order Number: [id number] Exam Date: 08/15/2023 09:55 Report Date: 08/15/2023 11:13 At the request of: GUSTAVO BADILLO Procedure: CT angio abdomen pelvis EXAMINATION: CT angio abdomen pelvis HISTORY: History of abdominal aortic aneurysm repair Z98.890 COMPARISON: CT abdomen and pelvis 06/11/2023 TECHNIQUE: Axial, Coronal, and Sagittal CT images without and with IV contrast. Multi-planar/3-D imaging to optimize visualization of vascular anatomy.Dose reduction techniques were achieved by using automated exposure controland/or adjustment of mA and/or kV according to patient size and/or use ofiterative reconstruction technique. FINDINGS: AORTA/VASCULAR: Stable aneurysmal dilation and prior endovascular stentingof the descending thoracic aorta through iliac arteries. Maximum diameter involves the infrarenal aorta, 4.2 cm. No evidence of extravasation. Stableaneurysmal dilation and prior stenting of the right common iliac artery, 3.5 cm in diameter. 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 CELIAC ARTERY: Normal celiac vessels. SMA: Normal mesenteric vessels. RENAL ARTERIES: Narrowing of the renal arteries at their origins. LUNG BASES: Trace amount of atelectasis or possibly infiltrates within posterior right lung base. Mild bronchiectasis within lung bases. LIVER: No enlargement, atrophy, abnormal density, or significant focallesion. BILIARY: Cholecystectomy. PANCREAS: No lesion, fluid collection, ductal dilatation, or atrophy. SPLEEN: No enlargement or focal lesion. ADRENALS: No mass or enlargement. KIDNEYS: Septated right renal cyst versus 2 adjacent cysts with combined diameter of 4.2 cm. The cephalad portion is fluid density, the lowerportion 74 Hounsfield units and may represent a hemorrhagic cyst or soft tissue component. Prominent left renal pelvis pseudocysts. BOWEL/MESENTERY: PEG tube position within body of stomach withoutappreciable leakage. Diverticulosis of sigmoid colon without acute inflammatorychanges. No visible mass, obstruction, or bowel wall thickening. Normal appendix. RETROPERITONEUM: No mass or adenopathy. LYMPH NODES: No adenopathy. URINARY BLADDER: Nondistended urinary bladder with Larios catheter inplace. PELVIC ORGANS: No visible mass. Pelvic organs appropriate for patient age. ABDOMINAL WALL: No mass or hernia. BONES: Stable mild compression fracture of L4, favoring chronic changes. OTHER: Negative. CT/CT angio abdomen pelvis IMPRESSION: 1. Stable aneurysmal dilation and prior stenting of thoracic aorta through iliac arteries. 2. Complex right renal cyst versus mass. Further evaluation isrecommended. Consider ultrasound evaluation of the kidneys, or alternatively CT abdomen without and with IV contrast to evaluate enhancement characteristics orMRI of the abdomen. 3. Multiple chronic changes detailed above. Electronically authenticated by: RUSS CABALLERO Date: 08/15/2023 11:13 Dictated By: Russ Caballero M.D. Signed By:08/15/23 1115 DD/ 1113 TD/TT: Rn Trauma: us Gustavo Badillo MD [facility] Final Resu lt documented in this encounter Visit Diagnoses Not on filedocumented in this encounter
--- OUTSIDE RECORDS SUMMARY | 2025-01-21 08:04 | XMS_ITS | Encounter Summary ---
Author Organization [employer] Address [id number] [address] [place] [address] Care Team Providers Care Guide Cruise Name Role Phone Fe Malloy MD Primary Care Provider [phone] Encounter Details Date Type Department Care Team (Late st Contact Info) Description 06/13/2023 Orders Only [facility] [address] [place] [phone] Transcribe, Orders Support User Pain (Primary Dx) Social History Tobacco Use Types Packs/Day Years Used Date Smoking Tobacco: Former Cigarettes Smokeless Tobacco: Never Comments:QUIT IN JUNE 2019 Alcohol Use Standard Drinks/Week Comments Yes 0 (1 standard drink = 0.6 oz pur e alcohol) SOMETIMES [facility] Utilities Answer Date Recorded In the past 12 months has th e electric, gas, oil, or water company threatened to shut off services in your home? No 06/13/2023 Overall Financial Resource Strain (CARDIA) Answe r Date Recorded How hard is it for you to pa y for the very basics like food, housing, medical care, and heating? Not hard at all 06/13/2023 PHQ-2 Answer Date Recorded Total Score 0 06/13/2023 PRAPARE - Transportation Answer Date Re corded In the past 12 months, has l ack of transportation kept you from medical appointments or from getting medications? No 10/2023 In the past 12 months, has l ack of transportation kept you from meetings, work, or from getting things needed for daily living? No 06/13/2023 Housing Instability Answer Date Recorde d Are you worried or concerned that in the next two months you may not have stable housing that you own, rent or stay in as a part of a household? No 06/13/2023 Childcare Answer Date Recorded Childcare Unknown 09/17/2018 Employment Answer Date Recorded Employment Unknown 09/17/2018 Hunger Screening Answer Date Recorded Within the past 12 months we worried whether our food would run out before we got money to buy more. Never True 06/13/2023 Within the past 12 months th e food we bought just didn't last and we didn't have money to get more. Never True 06/13/2023 Purpose - Life Answer Date Recorded Purpose and direction in life Unknown Comments No Sex and Gender Information Value Date Recorded Sex Assigned at Not on file Legal Sex Female 11:31 AM EDT Gender Identity Not on file Sexual Orientation Not on file documented as of this encounter Functional Status documented as of this encounter Mental Status * Question Answer Entry Date Author Overall Cognitive Status X 06/16/2023 8:02 AM EDT Earle Watson, PT documented in this encounter Plan of Treatment Not on file documented as of this encounter Goals Goal Patient Goal Type Associated Problems Recent Progress Patient-Stated? Author discharge General Yes Shari Stevens, RN Note: Evaluation of progress towards goal: to discharge to a shelter facility for rehab documented as of this encounter Results * CT angiogram abdomen and pelvis (06/11/2023 8:40 AM EST) us Scanning Provider External IMG CT ORDERABLES Fin al Result documented in this encounter Visit Diagnoses Diagnosis Pain- Primary Generalized pain documented in this encounter Additional Health Concerns Assessment Noted Time PHQ-9 Depression Total Score: 0 06/13/19 24 1:31 PM EST documented as of this encounter Care Teams Guide Cruise Relationship Specialty Start Date End Date Fe Malloy MD [address] [id number] PCP - General Family Medicine 05/05/19 documented as of this encounter
--- OUTSIDE RECORDS SUMMARY | 2025-01-21 08:04 | XMS_ITS | Encounter Summary ---
Author Organization [employer] Address [id number] [address] [place] [address] Care Team Providers Care Skin Toggler Name Role Phone Fe Malloy MD Primary Care Provider [phone] Encounter Details Date Type Department Care Team (Late st Contact Info) Description 07/30/2023 Abstract [facility] [address] [place] [address] Gustavo Badillo MD [address], [email or web address] [address] [place] [address] Social History Tobacco Use Types Packs/Day Years Used Date Smoking Tobacco: Former Cigarettes Smokeless Tobacco: Never Comments:QUIT IN JUNE 2019 Alcohol Use Standard Drinks/Week Comments Yes 0 (1 standard drink = 0.6 oz pur e alcohol) SOMETIMES [facility] Utilities Answer Date Recorded In the past 12 months has e [employer], gas, oil, or water [employer] threatened to shut off services in your [...] discharge to a [facility] facility for rehab documented as of this encounter Visit Diagnoses Not on filedocumented in this encounter Additional Health Concerns Assessment Noted Time PHQ-9 Depression Total Score: 0 06/13/19 24 1:31 PM EST documented as of this encounter Care Teams Skin Toggler Relationship Specialty Start Date End Date Fe Malloy MD [address] [place] [address] PCP - General Family Medicine 05/05/19 documented as of this encounter
--- OUTSIDE RECORDS SUMMARY | 2025-01-21 08:04 | XMS_ITS | Patient Health Record ---
Author Organization [facility] [place] Address [address] [place] [address] Care Team Providers Care Sign Writer Hand Name Role Phone Fe Malloy Primary Care Provider Jj Domingo Unavailable [phone] Allergies Allergen (clinical drug ingredient) Drug/Non Drug Allergy documented on EMR Reaction Allergy Type Onset Date Status ciprofloxacin Cipro Unknown Drug Allergy Act abdulkadir alendronate Fosamax Unknown Drug Allergy Activ e Neosporin Unknown Drug Allergy Active acetaminophen / oxycodone Percocet Unknown Drug Allergy Active Bee Sting Unknown Allergy Active oxycodone Oxycodone Unknown Drug Allergy Active Reason For Referral No Information Medications Medication SIG (Take, Route, Frequency, Duration) Notes Start Date End Date Status Metoprolol Tartrate 25 MG Oral; Duration: 90 Days Active amLODIPine Besylate 5 MG Oral; Duration: 90 Days Active hydroCHLOROthiazide 25 MG TAKE 1 TABLET BY MOUTH EVERY DAY Oral; Duration: 90 Days Active Allergy 24-HR 180 MG 1 tablet Swallow wh ole with water; do not take with fruit juices. Orally Once a day Active Pantoprazole Sodium 40 MG 1 tablet Orally Once a day Active Niacin 500 MG 1 tablet with food O rally Once a day Active Low-Dose Aspirin Act abdulkadir Social History Tobacco Use: Social History Observation Description Date Details (start date - stop date) Former Smoker NA - NA Tobacco Use/Smoking Question Answer Notes Patient is a former smoker Problems Problem Type SNOMED Code ICD Code Onset Dates Problem Status W/U Status Risk Notes Problem Acquired hammer toe of left foot (1144878724836746) Other hammer toe(s) (acquired), left foot (M20.42) Active confirmed Problem Acquired deformity of left foot (disorder) (756454767) Other acquired deformities of left foot (M21.6X2) Active confirmed Problem Dysphagia (32310230) Dysphagia, unspecified (R13.10) Active confirmed Problem Aphasia (11707870) Aphasia (R47.01) Active confirmed Problem Gastroesophageal reflux disease (576665049) GERD (gastroesophag eal reflux disease) (K21.9) Active confirmed Problem Ischemic colitis (77605219) Ischemic colitis (K55.9) Active confirmed Problem Leukocytosis (408015283) Elevated WBCs (D72.829) Active confirmed Problem Essential hypertension (67594642) BP (high blood pressure) (I10) Active confirmed Encounters Encounter Location Date Provider Diagnosis [facility] ([facility]) [address] [place] [address] [facility] No Information Insurance Providers Payer Name Payer Address Payer Phone Subscriber Number Group Number Insured Name Patient Relationship to Insured Coverage Start Date Coverage End Date [place]IC[place] [address] [place] [address] [id number] Ellen Sánchez Self - patient is the insured 8 Medical (General) History Medical History History ICD Code high blood pressure arthritis GERD Stents Surgical History Surgery Date(Month/Year) broken wrist 05/1983 hysterectomy 02/1988 L knee fracture 04/2014 triple A stents 08/2018 left ventricle 09/2018 gallbladder 05/2019 wrist 04/2022
--- OUTSIDE RECORDS SUMMARY | 2025-01-21 08:04 | XMS_ITS | Clinical Summary ---
Author Organization [employer] Address [facility] [id number] [address] [place] [address] Care Team Providers Care Hydro Station Supervisor Name Role Phone Fe Malloy MD Primary Care Provider Allergies Active Allergy Reactions Criticality Noted Date Comments Alendronate 05/11/2019 Bacitracin Rash,Other (See Comments) Low 08/17/2014 Bee Venom Protein (Honey Bee) 05/26/2019 feels like my eyes are spinning around Ciprofloxacin Headache High 05/11/2019 Neomycin Rash,Other (See Comments) Low 04/30/2022 Piytthey-Wowclxdizln-Nd lymyxnb 05/11/2019 Oxycodone Headache 05/11/2019 I just don't want to take it Polymyxin B Rash Low 04/30/2022 Venom-Wasp Anaphylaxis High 04/30/2022 Medications metoprolol tartrate (LOPRESSOR) 25 mg tablet Take 1 tablet (25 mg total) by mouth in the morning and 1 tablet (25 mg total) before bedtime. Hold if SBP <100 . 0 Active hydroCHLOROthiazide (HYDRODIURIL) 25 mg tablet Take 1 tablet (25 mg total) by mouth daily. 9 Active potassium chloride (KLOR-CON) 20 mEq packet Klor-Con 20 mEq oral packet Take 1 packet 4 times a day by oral route. Active pantoprazole (PROTONIX) 40 mg EC tablet Take 1 tablet (40 mg total) by mouth every morning before breakfast. 3 Active potassium chloride (K-TAB,KLOR-CON) 10 MEQ CR tablet Take 2 tablets (20 mEq total) by mouth in the morning and 2 tablets (20 mEq total) before bedtime. 3 Active citalopram (CeleXA) 20 mg tablet Take 1 tablet (20 mg total) by mouth in the morning. Active melatonin (CIRCADIN) tablet Take 1 tablet (3 mg total) by mouth nightly. Active aspirin 81 mg Take 1 tablet (81 mg total) by mouth in the morning. 60 tablet 4 Active clopidogreL (PLAVIX) 75 mg tablet Take 1 tablet (75 mg total) by mouth in the morning. 60 tablet 4 Active mirtazapine (REMERON VIRI-TAB) 30 mg disintegrating tablet Dissolve 1 tablet (30 mg total) on tongue nightly. Active cefDINIR (OMNICEF) 300 mg capsule Take 1 capsule (300 mg total) by mouth in the morning and 1 capsule (300 mg total) before bedtime. Active ondansetron ODT (ZOFRAN ODT) 4 mg disintegrating tablet Dissolve 1 tablet (4 mg total) on tongue every 8 (eight) hours as needed for nausea or vomiting. Active Active Problems Problem Noted Date Diagnosed Date Ruptured aneurysm of descending thoracic aorta 0 08/01/2023 Assessment & Plan (08/27/2024 9:17 AM EDT): This post endovascular repair. She has been having stable thoracic aorta. The distal left PACU stable and successfully excluded. She has about 5 cm more proximal descending aneurysm that has been stable as well for years. Plan is to continue surveillance. Will get a CT in 6-month Assessment & Plan (08/01/2023 8:54 AM EDT): CTA of the chest in a year. 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 I reviewed and interpreted the CAT scan I do not see an endoleak I do see changes from a CAT scan from 3 months. I will do centerline measurements and evaluation and comparison. The plan is to do surveillance imaging in 6 months. Assessment & Plan (08/01/2023 8:54 AM EDT): CT of the abdomen pelvis anemia. 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 Immunizations Immunization Administration Dates Next Due Influenza High Dose Preservative Free IM 019,01/27/2018,12/25/2014 Influenza Vaccine, Quadrivalent, Adjuvanted 12/08 Influenza, High-dose, Quadrivalent 01/15/2022, Influenza, Trivalent, Adjuvanted 01/20/2016 Pneumococcal Conjugate 13-Valent 02/09/2016 Pneumococcal Conjugate 20-valent 01/15/2022 Pneumococcal Polysaccharide 01/26/2021, 8 Zoster Vaccine Recombinant 01/29/2023 Social History Tobacco Use Types Packs/Day Years Used Date Smoking Tobacco: Former Cigarettes Smokeless Tobacco: Never Tobacco Cessation:Counseling Given: Not Answered Comments:QUIT IN JUNE 2019 Alcohol Use Standard Drinks/Week Comments Yes 0 (1 standard drink = 0.6 oz pur e alcohol) SOMETIMES [facility] Utilities Answer Date Recorded In the past [...] got money to buy more. Never True 08/27/2024 Within the past 12 months th e food we bought just didn't last and we didn't have money to get more. Never True 08/27/2024 Purpose - Life Answer Date Recorded Purpose and direction in life Unknown Comments No Sex and Gender Information Value Date Recorded Sex Assigned at Not on file Legal Sex Female 11:31 AM EDT Gender Identity Not on file Sexual Orientation Not on file Last Filed Vital Signs Vital Sign Reading Time Taken Comments Blood Pressure 104/60 08/27/2024 9:03 AM EDT Pulse 76 08/27/2024 9:03 AM EDT Temperature 36.2 C (97.1 F) 08/27/2024 9:03 AM EDT Respiratory Rate 16 08/27/2024 9:03 AM EDT Oxygen Saturation 98% 08/27/2024 9:03 AM EDT Inhaled Oxygen Concentration - - Weight 62.1 kg (137 lb) 08/01/2023 8:42 AM EDT Height 162.6 cm (5' 4 ) 08/01/2023 8:42 AM EDT Body Mass Index 23.52 08/01/2023 8:42 AM EDT Plan of Treatment Health Maintenance Due Date Last Done Comments DTaP,Tdap and Td Vaccines (1 - Tdap) 1962 Fall Risk Screening 2008 Zoster (Shingles) Vaccine (2 of 2) 03/26/2023 01/29/2023 Depression Screening 06/12/2024 06/13/2023 Tobacco Screening 07/31/2024 08/01/2023 COVID-19 Vaccine (6 - 2024-2 6 season) 2024 12/28/2022, 01/15/2022, 03/09/2021, Additional history exists Influenza Vaccine 12/07/2024 12/28/2022, , 01/13/2021, Additional history exists Goals Goal Patient Goal Type Associated Problems Recent Progress Patient-Stated? Author discharge General Yes Shari Stevens, RN Note: Evaluation of progress towards goal: to discharge to a halfway facility for rehab Medical Devices Not on file Insurance [place]ICARE [place] [address] Advance Directives Documents on File Type Date Recorded Patient Operation Agent Expl anation DNR Physician Order 06/21/2023 10:34 AM Durable Power of Restaurant Team Member 04/25/2023 6:31 AM Living Will 04/25/2023 6:21 AM Durable Power of Restaurant Team Member 05/26/2019 6:13 AM healthcare POA Living Will 05/26/2019 6:10 AM living vane l * Modified Code Status [place] (Latest Code Status on File) Date Activated Date Inactivated Comments 04/02/2023 3:01 PM 04/17/2023 1:07 PM Question Answer Comments Code Limitations: No Chest CompressionsNo Defibr illation or Cardioversion * DNR Comfort Care Arrest (DNR-CCA) [place] Date Activated Date Inactivated Comments 04/02/2023 2:19 PM 04/02/2023 3:01 PM * Full Code Date Activated Date Inactivated Comments 04/02/2023 8:11 AM 04/02/2023 2:19 PM Healthcare Agents on File Name Relationship Healthcare Agent Relationshi p Communication Roula Alexis [facility] Care Agent Care Teams Hydro Station Supervisor Relationship Specialty Start Date End Date Fe Malloy MD [address] [place] [address] PCP - General Family Medicine 05/05/19
--- OUTSIDE RECORDS SUMMARY | 2025-01-21 08:05 | XMS_ITS | Encounter Summary ---
Author Organization [employer] Address [id number] [address] [place] [address] Care Team Providers Care Rn Lpn Cna Name Role Phone Fe Malloy MD Primary Care Provider [phone] Encounter Details Date Type Department Care Team (Late st Contact Info) Description 07/23/2024 Orders Only [facility] [address] [place] [phone] May Castillo CMA History of AAA (abdominal aortic aneurysm) repair; Ruptured aneurysm of descending thoracic aorta ([facility]) Social History Tobacco Use Types Packs/Day Years Used Date Smoking Tobacco: Former Cigarettes Smokeless Tobacco: Never Comments:QUIT IN JUNE 2019 Alcohol Use Standard Drinks/Week Comments Yes 0 (1 standard drink = 0.6 oz pur e alcohol) SOMETIMES C Utilities Answer Date Recorded In the past 12 months has e electric, gas, oil, or water company [...] progress towards goal: to discharge to a correction facility for rehab documented as of this encounter Visit Diagnoses Diagnosis History of AAA (abdominal aortic aneurysm) repair Other postprocedural status 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) documented in this encounter Additional Health Concerns Assessment Noted Time PHQ-9 Depression Total Score: 0 06/13/19 24 1:31 PM EST documented as of this encounter Care Teams Rn Lpn Cna Relationship Specialty Start Date End Date Fe Malloy MD [address] [id number] PCP - General Family Medicine 05/05/19 documented as of this encounter
--- OUTSIDE RECORDS SUMMARY | 2025-01-21 08:05 | XMS_ITS | Encounter Summary ---
Author Organization [employer] Address [facility] [id number] [address] [place] [address] Care Team Providers Care Server Cashier Name Role Phone Fe Malloy MD Primary Care Provider [phone] Encounter Details Date Type Department Care Team (Late st Contact Info) Description 08/12/2024 Telephone [facility] [address] [place] [address] Gustavo Badillo MD [address], [facility] [address] [place] [address] Social History Tobacco Use Types Packs/Day Years Used Date Smoking Tobacco: Former Cigarettes Smokeless Tobacco: Never Comments:QUIT IN JUNE 2019 Alcohol Use Standard Drinks/Week Comments Yes 0 (1 standard drink = 0.6 oz pur e alcohol) SOMETIMES [facility] Utilities Answer Date Recorded In the past 12 months has e [employer], gas, oil, or water [employer] threatened to shut off services in your [...] on file documented as of this encounter Miscellaneous Notes * Telephone Encounter - Phylicia Parson - 08/12/2024 3:12 PM EDT Patient is calling to cancel/reschedule upcoming appointment Date of original appointment:08/13/24 Time of original appointment:3:30pm New appointment date:08/27/24 New appointment time:9:00am Reason for cancel/reschedule: Erika with the facility in [place] is calling to reschedule the patient to be seen in [place]. documented in this encounter Plan of Treatment Not on file documented as of this encounter Goals Goal Patient Goal Type Associated Problems Recent Progress Patient-Stated? Author discharge General Yes Shari Stevens, RN Note: Evaluation of progress towards goal: to discharge to a care home facility for rehab documented as of this encounter Visit Diagnoses Not on filedocumented in this encounter Additional Health Concerns Assessment Noted Time PHQ-9 Depression Total Score: 0 06/13/19 24 1:31 PM EST documented as of this encounter Care Teams Server Cashier Relationship Specialty Start Date End Date Fe Malloy MD [address] [place] [address] PCP - General Family Medicine 05/05/19 documented as of this encounter
--- OUTSIDE RECORDS SUMMARY | 2025-01-21 08:05 | XMS_ITS | Encounter Summary ---
Author Organization [employer] Address [facility] [id number] [address] [place] [address] Care Team Providers Care Gas Well Pumper Name Role Phone Fe Malloy MD Primary Care Provider [phone] Encounter Details Date Type Department Care Team (Late st Contact Info) Description 04/01/2023 Orders Only [facility] [address] [place] [phone] Transcribe, Orders Support User Social History Tobacco Use Types Packs/Day Years Used Date Smoking Tobacco: Former Smokeless Tobacco: Never Comments:QUIT IN JUNE Alcohol Use Standard Drinks/Week Comments Yes 0 (1 standard drink = 0.6 oz pur e alcohol) SOMETIMES Childcare Answer Date Recorded Childcare Unknown 09/17/2018 Employment Answer Date Recorded Employment Unknown 09/17/2018 Purpose - Life Answer Date Recorded Purpose [...] Entry Date Author Overall Cognitive Status X 04/04/2023 10:41 AM Sun Rush, PT * Question Answer Entry Date Author Overall Cognitive Status X 04/01/2023 7:55 AM Chico Armenta, CCC-PROGRAM SCHEDULE CLERK documented in this encounter Plan of Treatment Not on file documented as of this encounter Visit Diagnoses Not on filedocumented in this encounter Additional Health Concerns Infection Onset Date Last Indicated Resolved Time COVID-19 Rule-Out 04/03/2023 04/03/2023 04/03/2023 11:49 AM EST documented as of this encounter Care Teams Gas Well Pumper Relationship Specialty Start Date End Date Fe Malloy MD [address] [id number] PCP - General Family Medicine 05/05/19 documented as of this encounter
--- OUTSIDE RECORDS SUMMARY | 2025-01-21 08:05 | XMS_ITS | Clinical Summary ---
Author Organization [facility] Address [address] [place] [address] Care Team Providers Care Supervisor Shipfitters Name Role Phone Unavailable Primary Care Provider Unavailabl e Social History Tobacco Use Types Packs/Day Years Used Date Smoking Tobacco: Never Assessed Comments Unknown Sex and Gender Information Value Date Recorded Sex Assigned at Not on file Legal Sex Female 8:33 PM EDT Gender Identity Not on file Sexual Orientation Not on file Last Filed Vital Signs Vital Sign Reading Time Taken Comments Blood Pressure 122/82 08/17/2021 12:00 PM EDT Pulse - - Temperature - - Respiratory Rate - - Oxygen Saturation - - Inhaled Oxygen Concentration - - Weight 74.4 kg (164 lb) 08/17/2021 12:00 PM EDT Height 162.6 cm (5' 4 ) 08/17/2021 12:00 PM EDT Body Mass Index 28.15 08/17/2021 12:00 PM EDT Plan of Treatment Not on file Insurance MEDICARE
--- OUTSIDE RECORDS SUMMARY | 2025-01-21 08:05 | XMS_ITS | Clinical Summary ---
Author Organization [facility] Address [address] [place] [address] Care Team Providers Care Hide Salter Name Role Phone Unavailable Primary Care Provider Unavailabl e Allergies Active Allergy Reactions Criticality Noted Date Comments Neosporin Daily Body Unknown 09/16/2023 Oxycodone Unknown 07/02/2021 Medications potassium chloride CR (Klor-Con) 10 mEq ER tablet Take 20 mEq by mouth twice a day. 3 Active potassium chloride (Klor-Con) 20 mEq packet Take 1 packet 4 times a day by oral route. Active pantoprazole (ProtoNix) 40 mg EC tablet Take 1 tablet by mouth in the morning. 3 Active ondansetron ODT (Zofran-ODT) 4 mg disintegrating tablet Take 4 mg by mouth every 8 (eight) hours if needed. Active naproxen sodium (Aleve) 220 mg capsule Take by oral route. Active metoprolol tartrate (Lopressor) 25 mg tablet Take 1 tablet twice a day by oral route. 0 Active melatonin 3 mg tablet Take 3 mg by mouth in the morning. Active hydroCHLOROthiazide (HYDRODiuril) 25 mg tablet Take 25 mg by mouth in the morning. 9 Active docusate sodium (Colace) 100 mg capsule Take 1 capsule every day by oral route. Active clopidogrel (Plavix) 75 mg tablet Take 75 mg by mouth in the morning. 4 Active cefdinir (Omnicef) 300 mg capsule Take 300 mg by mouth twice a day. Active citalopram (CeleXA) 20 mg tablet Take 20 mg by mouth in the morning. Active aspirin 81 mg EC tablet Take 81 mg by mouth in the morning. Active mirtazapine (Remeron Tamara-Tab) 30 mg disintegrating tablet Take 30 mg by mouth in the morning. Active Active Problems Problem Noted Date Diagnosed Date Other acquired deformities of left foot 08/02/19 24 08/02/2023 Other hammer toe(s) (acquired), left foot 202308/02/2023 Postoperative pain of extremity 08/02/2023 08/02/2023 Right wrist fracture 08/02/2023 08/02/2023 Ruptured aneurysm of descending thoracic aorta 0 08/01/2023 08/02/2023 Overview (08/02/2023): Last Assessment & Plan: CTA of the chest in a year. Acute blood loss anemia 06/13/2023 08/02/19 Acute lower GI bleeding 06/13/2023 08/02/19 24 Dementia 06/13/2023 08/02/2023 History of AAA (abdominal aortic aneurysm) repai r 06/13/2023 08/02/2023 Overview (08/02/2023): Last Assessment & Plan: CT of the abdomen pelvis anemia. 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/02/2023 Essential hypertension 05/25/2019 4 Immunizations Immunization Administration Dates Next Due Influenza, High Dose Seasona l, Preservative Free 12/21/2018,01/27/2018,12/25/2014 Influenza, High-dose Seasona l, Quadrivalent, Preservative Free 01/15/2022,01/13/2021 Influenza, Seasonal, Quadriv alent, Adjuvanted 12/28/2022 Influenza, trivalent, adjuvanted 01/20/2016 Pneumococcal Conjugate PCV 13 02/09/2016 Pneumococcal Conjugate PCV 20 01/15/2022 Pneumococcal Polysaccharide PPV23 01/26/2021, Zoster, Recombinant 01/29/2023 Social History Tobacco Use Types Packs/Day Years Used Date Smoking Tobacco: Unknown Tobacco Cessation:Counseling Given: Not Answered [place] Safety & Environment Answer Date Rec orded Fear of Current or Ex-Partner Not on file Emotionally Abused Not on file 05/30/2023 Physically Abused Not on file 05/30/2023 Sexually Abused Not on file 05/30/2023 Physically or Sexually Abused Not on file Comments Unknown Sex and Gender Information Value Date Recorded Sex Assigned at Not on file Legal Sex Female 10:51 PM EDT Gender Identity Not on file Sexual Orientation Not on file Last Filed Vital Signs Vital Sign Reading Time Taken Comments Blood Pressure 131/77 07/26/2021 2:16 PM EDT Pulse 75 07/26/2021 2:16 PM EDT Temperature 36.1 C (96.9 F) 07/26/2021 2:16 PM EDT Respiratory Rate 20 10/27/2018 11:04 AM EDT Oxygen Saturation 98% 05/25/2019 10:46 AM EST Inhaled Oxygen Concentration - - Weight 72.6 kg (160 lb) 07/26/2021 2:15 PM EDT Height 162.6 cm (5' 4 ) 07/26/2021 2:14 PM EDT Body Mass Index 27.46 07/26/2021 2:14 PM EDT Plan of Treatment Health Maintenance Due Date Last Done Comments Medicare Annual Wellness (AWV) 1945 Depression Screening 1955 Adult Tetanus 1965 Fall Risk Screening 2008 Zoster Vaccines (2 of 2) 03/26/2023 01/29/2023 COVID-19 Vaccine ( season) 2024 12/28/2022, 01/15/2022, 03/09/2021, Additional history exists Influenza Vaccine (#1) 2024 , 01/15/2022, 01/13/2021, Additional history exists Pneumococcal Vaccine: 50+ Years Completed 01/15/2022, 01/26/2021, 01/27/2018, Additional history exists HIB Vaccines Aged Out No longer eligi ble based on patient's age to complete this topic HPV Vaccines Aged Out No longer eligi ble based on patient's age to complete this topic IPV Vaccines Aged Out No longer eligi ble based on patient's age to complete this topic Meningococcal B Vaccine Aged Out No l onger eligible based on patient's age to complete this topic Meningococcal Vaccine Aged Out No shireen alessio eligible based on patient's age to complete this topic Rotavirus Vaccines Aged Out No longer eligible based on patient's age to complete this topic Insurance MEDICARE [employer] [place], [place] [id number] Advance Directives Documents on File Type Date Recorded Patient Mosaic Layer Expl anation Power of Senior Litigation Paralegal 08/03/2022 2:44 PM [facility]
--- OUTSIDE RECORDS SUMMARY | 2025-01-21 08:05 | XMS_ITS | Encounter Summary ---
Author Organization [facility] Address [id number] [address] [place] [address] Care Team Providers Care Cupola Repairer Name Role Phone Fe Malloy MD Primary Care Provider [phone] Encounter Details Date Type Department Care Team (Late st Contact Info) Description 07/22/2024 Orders Only [facility] [address] [place] [phone] May Castillo CMA Ruptured aneurysm of descending thoracic aorta ([facility]) Social History Tobacco Use Types Packs/Day Years [...] progress towards goal: to discharge to a alf facility for rehab documented as of this encounter Visit Diagnoses Diagnosis 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) documented in this encounter Additional Health Concerns Assessment Noted Time PHQ-9 Depression Total Score: 0 06/13/19 24 1:31 PM EST documented as of this encounter Care Teams Cupola Repairer Relationship Specialty Start Date End Date Fe Malloy MD [address] [place] [address] PCP - General Family Medicine 05/05/19 documented as of this encounter
--- OUTSIDE RECORDS SUMMARY | 2025-01-21 08:09 | XMS_ITS | CCD ---
Author Organization [facility] Care Team Providers Care Control Clerk Repairs Name Role Phone LEON HYDE Attending Unavailable LEON HYDE Admitting Unavailable NITHYA MALLOY Referring Unavailable NITHYA MALLOY Primary Care Unavailable MD Nithya Malloy Primary Care Provider MD Kate Mane Attending Provider [phone] MELLISSA, DR NITHYA Merida Primary Care Unavailable GASTON REDMAN Admitting Unavailable GASTON REDMAN Attending Unavailable BLAINE, DR ANTOLIN Musa Consulting Unavailable MARIFER, CARO Consulting Unavailable GASTON REDMAN Consulting Unavailable KATE MANE Admitting Unavailable KATE MANE Attending Unavailable MELLISSA, DR NITHYA Merida Primary Care Unavailable MALLOY, DR NITHYA Merida Admitting Unavailable MALLOY, DR NITHYA Merida Attending Unavailable MALLOY, DR NITHYA Merida Primary Care Unavailable ZIEBMARK, DR ANTOLIN Musa Consulting Unavailable MALLOY, DR NITHYA Merida Consulting Unavailable MISC, DR MCKINLEY Admitting Unavailable MISC, DR MCKINLEY Attending Unavailable MALLOY, DR NITHYA Merida Primary Care Unavailable MISC, DR MCKINLEY Consulting Unavailable ZIEBMARK, DR ANTOLIN Musa Consulting Unavailable MALLOY, DR NITHYA Merida Admitting Unavailable MALLOY, DR NITHYA Merida Attending Unavailable MALLOY, DR NITHYA Merida Primary Care Unavailable WEST, DR ARIANNE Sanz Consulting Unavailable MALLOY, DR NITHYA Merida Consulting Unavailable MALLOY, DR NITHYA Merida Admitting Unavailable MALLOY, DR NITHYA Merida Attending Unavailable MALLOY, DR NITHYA Merida Primary Care Unavailable WEST, DR ARIANNE Sanz Consulting Unavailable MELLISSA, DR NITHYA Merida Consulting Unavailable KATE MANE Admitting Unavailable KATE MANE Attending Unavailable MELLISSA, DR NITHYA Merida Primary Care Unavailable KATE MANE Consulting Unavailable Nithya Malloy Unavailable NITHYA MALLOY Primary Care Physician [phone] Nayely Lizama Unavailable Unavailable Kate Mane Unavailable MD Nithya Malloy Primary Care Provider MD Kate Mane Attending Provider MD Leon Hyde Admitting Unavailable MD Leon Hyde Attending Unavailable NONE, XXXX Referring Unavailable MD Leon Hyde Attending Unavailable NONE, XXXX Referring Unavailable MD Leon Hyde Admitting Unavailable MD Leon Hyde Admitting Unavailable MD Leon Hyde Attending Unavailable MD Leon Hyde Referring Unavailable Calvey, Kate R Admitting Unavailable Kate Mane Attending Unavailable Nithya Malloy Primary Care Unavailable Teresa, Kate R Admitting Unavailable Kate Mane R Attending Unavailable Nithya Malloy Primary Care Unavailable Kate Mane R Admitting Unavailable Kate Mane R Attending Unavailable Nithya Malloy Primary Care Unavailable Kate Mane Attending Unavailable Tracie Maneen R Admitting Unavailable Nithya Malloy Primary Care Unavailable Kate Mane Attending Unavailable Kate Mane Admitting Unavailable Nithya Malloy Primary Care Unavailable PATI, WILLARD FCara Admitting Unavailable PATI, WILLARD FCara Attending Unavailable JACK FAJARDO Referring Unavailable NITHYA MALLOY Primary Care Unavailable DULCE AGARWAL Consulting Unavailable CHRISTINA FREITAS Consulting Unavailab JAZMINE Isaac Consulting Unavailable ([facility] ONLY), SURGERY B Consulting UnavailMICHELE Lopez Consulting Unavailable AGATHA EDEN Consulting Unavailable KISHORE CALVO I Consulting Unavailable EMILEE MARIE Admitting Unavailable EMILEE MARIE Attending Unavailable DULCE CASTILLO Referring Unavailable NITHYA MALLOY Primary Care Unavailable TJ COLLINS Consulting Unavailable ONLY), IP WOUND CARE SERVICES (INPATIENT Consult ing Unavailable [facility] ONLY, [facility] Consulting Unavailable ROBINA BARNES Consulting Unavailable AUSTIN SORENSON Referring Unavailable NITHYA MALLOY Primary Care Unavailable SIMEON UPTON Referring Unavailable NITHYA MALLOY Primary Care Unavailable TANYA DUMONT Attending Unavailable NITHYA MALLOY Primary Care Unavailable RY DE ANDA Referring Unavailable NITHYA MALLOY Primary Care Unavailable ALEIDA TILLEY Referring Unavailable MALOLY, NITHYA E Primary Care Unavailable SONYA, JORDAN Referring Unavailable MALLOY, NITHYA E Primary Care Unavailable GHARAIBEH, KHALED Referring Unavailable MALLOY, NTIHYA E Primary Care Unavailable GHARAIBEH, KHALED Referring Unavailable MALLOY, NITHYA E Primary Care Unavailable MARY STAPLETON Referring Unavailable MALLOY, NITHYA E Primary Care Unavailable FROY BRANDON Referring Unavailable MALLOY, NITHYA E Primary Care Unavailable MALLOY, NITHYA E Referring Unavailable MALLOY, NITHYA E Primary Care Unavailable GHARAIBEH, KHALED Referring Unavailable MALLOY, NITHYA E Primary Care Unavailable ALI, AIZAZ Referring Unavailable MALLOY, NITHYA E Primary Care Unavailable GHARAIBEH, KHALED Referring Unavailable MALLOY, NITHYA E Primary Care Unavailable ALI, MOHAN Referring Unavailable MALLOY, NITHYA E Primary Care Unavailable ALI, AIZAZ Referring Unavailable MALLOY, NITHYA E Primary Care Unavailable ALI, AIZAZ Referring Unavailable MALLOY, NITHYA E Primary Care Unavailable SONYA, JORDAN Referring Unavailable MALLOY, NITHYA E Primary Care Unavailable ALI, MOHAN Referring Unavailable MALLOY, NITHYA E Primary Care Unavailable ALI, MOHAN Referring Unavailable MALLOY, NITHYA E Primary Care Unavailable ARTEMIO RAY Referring Unavailabl e MALLOY, NITHYA E Primary Care Unavailable CHRISTINA FREITAS Attending Unavailab CHRISTINA Prather Referring Unavailab le MALLOY, NITHYA E Primary Care Unavailable ARTEMIO RAY Referring Unavailabl e MALLOY, NITHYA E Primary Care Unavailable JANET MCALLISTER Referring Unavailable MALLOY, NITHYA E Primary Care Unavailable BRANDON GOODEN Referring Unavailable MALLOY, NITHYA E Primary Care Unavailable BRANDON GOODEN Referring Unavailable MALLOY, NITHYA E Primary Care Unavailable ZAY CHAPA MD Referring Unavailab le MALLOY, NITHYA E Primary Care Unavailable ARTEMIO RAY Referring Unavailabl e MALLOY, NITHYA E Primary Care Unavailable MAI HO Referring Unavailable MALLOY, NITHYA E Primary Care Unavailable CHEN AHN Referring Unavailable MALLOY, NITHYA E Primary Care Unavailable HASEEB MCNAMARA Referring Unavailable MALLOY, NITHYA E Primary Care Unavailable DAE BO Attending Unavailable DAE BO Referring Unavailable MALLOY, NITHYA E Primary Care Unavailable WON WEBSTER Attending Unavailable MALLOY, NITHYA E Primary Care Unavailable OKSANA WONG Referring Unavai lable MALLOY, NITHYA E Primary Care Unavailable WILLARD KRUEGER Jess. Referring Unavailable NITHYA MALLOY Primary Care Unavailable Nithya Malloy MD Primary Care Provider Nithya Malloy MD Primary Care Provider Nithya Malloy MD Primary Care Provider Unavailable Primary Care Provider Unavailmatthew e LEON HYDE Attending Unavailable NITHYA MALLOY Referring Unavailable NITHYA MALLOY Primary Care Unavailable NITHYA MALLOY Referring Unavailable NITHYA MALLOY Primary Care Unavailable NITHYA MALLOY Referring Unavailable NITHYA MALLOY Primary Care Unavailable Allergies Allergy Classification Reported [...] Allergy 07-04-19 22 [facility] (20 sources) Bacitracin; Translations: [Bacitracin] Drug Allergy 11-29-19 13 Rash, Other (See Comments) [facility] (20 sources) Ciprofloxacin; Translations: [ciprofloxacin] Drug Allergy 08-18-19 15 Headache [facility] (13 sources) Neomycin; Translations: [Neomycin] Drug Allergy 04-30-19 23 Rash, Other (See Comments) [facility] (10 sources) polymyxin B; Translations: [polymyxin B] Allergy to substance 04-30-19 23 Rash [facility] (10 sources) venom-wasp; Translations: [venom-wasp] Allergy to substance 04-30-19 23 Anaphylaxis [facility] (1 source) bee venom Drug allergy (disorder) 08-19-19 15 [facility] (11 sources) Acetaminophen / oxyCODONE; Translations: [acetaminophen-ox ycodone] Drug Allergy 08-18-19 15 Unknown [facility] (13 sources) Alendronate; Translations: [alendronate] Drug Allergy 11-29-19 13 Unknown, Comment:Augustinate xt Needs Updated. [facility] (16 sources) bacitracin / neomycin / polymyxin b; Translations: [bacitracin/neomy joaquin/polymyxin B topical] Drug Allergy 05-11-19 Blisters [facility] (20 sources) oxyCODONE; Translations: [oxycodone] Drug Allergy 11-01-19 19 Headache [facility] (8 sources) Substance with penicillin structure and antibacterial mechanism of action (substance) Drug allergy 11-29-19 13 Unknown [facility] (8 sources) Bee Sting Drug allergy 11-29-19 13 Unknown [facility] (8 sources) Neosporin + Pain Relief Max [facility] *DERMATOLOGICALS* Propensity to adverse reactions 11-29-19 13 Unknown [facility] (8 sources) Allergies Reconciled Propensity to adverse reactions Unknown [facility] Other (8 sources) patient allergy list reviewed by nurse or physicia Propensity to adverse reactions 11-29-19 Comment:Done [facility] Other (15 sources) BEE VENOM PROTEIN (HONEY BEE); Translations: [BEE VENOM PROTEIN (HONEY BEE)] Propensity to adverse reactions to drug (disorder) 05-26-19 [facility] (2 sources) NEOMYCIN-BACITRAC NZN-POLYMYXNB; Translations: [NEOMYCIN-BACITRA CNZN-POLYMYXNB] Propensity to adverse reactions to drug (disorder) 05-11-19 [facility] (13 sources) Alendronate Drug Allergy 05-11-19 [facility] Medications Current Medications Medication Drug Class(es) Dates Sig (Normalized) Sig (Original) acetaminophen 325 mg oral tablet (3 sources) Start: 06-13-2023 take 1 tablet by mouth every six hours as needed for pain and pain and headache acetaminophen (TYLENOL) tablet 650 mg Start: 04-03-2023 End: 04-17-2023 take 650 mg [...] on Sat04/02/23 at 0815, For 24 hours acetaminophen 325 mg / HYDROcodone bitartrate 5 mg oral tablet (8 sources) Opioid Agonist Start: 04-30-2022 take 1 tablet by mouth every four to six hours Hydrocodone-Acetaminophen Active 1 - 2 TAB PO EVERY [...] use. Avoid grapefruit juice. Start: 05-04-2019 End: 06-13-2023 take 5 mg by mouth once daily Amlodipine Active 5 MG PO Daily April 30, 2022 1:00am amLODIPine Besyl ate Active amoxicillin 500 mg oral capsule (1 source) Penicillin-class Antibacterial take 2 capsules by mouth every twelve hours Amoxicillin 500 MG 2 capsules Orally Twice a day for 1 days Pt states she is not allergic to PCN. Active amoxicillin 875 mg / clavulanate 125 mg oral tablet (2 sources) Penicillin-class Antibacterial Start: 06-16-19 End: 06-19-19 take 1 tablet by mouth once in the morning amoxicillin-pot clavulanate (AUGMENTIN) 875-125 mg per tablet Take 1 tablet by mouth in the morning and 1 tablet before bedtime. Do all this for 3 days. 6 tablet 0 06/16/2023 06/19/2023 Active aspirin 81 mg delayed release oral tablet (20 sources) Platelet Aggregation Inhibitor, Nonsteroidal Anti-inflammatory Drug Start: 06-17-19 take 1 tablet by mouth in the morning aspirin 81 mg Take 1 tablet (81 mg total) by mouth in the morning. 60 tablet 06/17/2023 Active Start: 06-04-2022 take 1 tablet by melly th once daily aspirin 81 mg Oral EC Tab 81 mg = 1 tab(s), Oral, Daily, # 30 tab(s), Refills(s) 0 Start Date: 06/04/22 Status: Ordered Start: 04-30-2022 take 81 mg by mouth once daily Aspirin Active 81 MG PO Daily April 30, 2022 1:00am take 1 tablet by melly th once daily Aspir-Low 81 MG 1 tablet Orally Once a day Active 100 ml calcium gluconate 20 mg/ml injection (1 source) Start: 06-13-2023 calcium gluconate IVPB 2000 mg/100 mL (20 mg/mL premix) calcium gluconate 3,000 mg in sodium chloride 0.9 % 100 mL IVPB (1 source) Start: 06-13-2023 calcium gluconate 3,000 mg in sodium chloride 0.9 % 100 mL IVPB calcium gluconate 4,000 mg in sodium chloride 0.9 % 250 mL IVPB (1 source) Start: 06-13-2023 calcium gluconate 4,000 mg in sodium chloride 0.9 % 250 mL IVPB cefdinir 300 mg oral capsule (3 sources) Cephalosporin Antibacterial take 1 capsule by mouth in the morning, then take 1 capsule by mouth at bedtime cefDINIR (OMNICEF) 300 mg capsule Take 1 capsule (300 mg total) by mouth in the morning and 1 capsule (300 mg total) before bedtime. Active cefTRIAXone (ROCEPHIN) 1,000 mg in sodium chloride 0.9 % 50 mL IVPB-MBP (1 source) Start: 06-13-2023 take 1000 mg intravenously every twenty-four hours cefTRIAXone (ROCEPHIN) 1,000 mg in sodium chloride 0.9 % 50 mL IVPB-MBP Zyrtec (16 sources) Histamine-1 Receptor Antagonist Start: 06-04-2022 Zyrtec Refills(s) 0 Start Date: 06/04/22 Status: Ordered take 1 tablet by melly th once daily as needed ZyrTEC Allergy 10 MG 1 tablet as needed Orally Once a day for 30 day(s) Active citalopram 20 mg oral tablet (7 sources) Serotonin Reuptake Inhibitor take 1 tablet by mouth in the morning citalopram (CeleXA) 20 mg tablet Take 1 tablet (20 mg total) by mouth in the morning. Active clopidogrel 75 mg oral tablet (7 sources) P2Y12 Platelet Inhibitor Start: 4 take 1 tablet by mouth in the morning clopidogreL (PLAVIX) 75 mg tablet Take 1 tablet (75 mg total) by mouth in the morning. 60 tablet 06/17/2023 Active Colace (3 sources) Start: 3 Colace Refills(s) 0 Start Date: 06/04/22 Status: Ordered End: 04-17-2023 doxycycline hyclate 100 mg oral tablet (4 sources) Tetracycline-class Drug Start: 04-30-2022 take 100 mg by mouth twice daily Doxycycline Hyclate Active 100 MG PO Twice daily 10 April 30, 2022 1:00am [id number] 0.3 ml EPINEPHrine 1 mg/ml auto-injector (6 sources) alpha-Adrenergic Agonist, beta-Adrenergic Agonist, Catecholamine Start: 09-07-2022 EpiPen 2-Jarrod 0.3 MG/0.3ML as directed Injection prn for 1 days Sep, Active glucagon (rdna) 1 mg injection (2 sources) Antihypoglycemic Agent Start: 06-13-2023 glucagon HCL injection 1 mg Start: 04-01-2023 End: 04-17-2023 1 mg, intramuscular, As need ed, low blood sugar, blood glucose less than [...] treatment. 150 ml glucose 50 mg/ml injection (6 sources) Start: 06-13-2023 dextrose (GLUT OSE) 40 % gel 15 g Start: 06-13-2023 dextrose 50 % in water (D50W) 50% solution 25 mL Start: 06-13-2023 dextrose 5 % ( D5W) infusion Start: 04-01-2023 End: 04-17-2023 15 g, oral, As needed, low b lood sugar, blood glucose less than 70 mg/dL, [...] 70 mg intravenously every hour 100 mL/hr, intrave nous, Continuous PRN, blood glucose less than 70 mg/dL, Starting on Sat04/01/23 at 0408, Use immediately following dextrose 50% or glucagon treatment for patients who are unconscious or NPO. Contact prescriber for additional orders. If blood glucose is not greater than 70 mg/dL after initial treatment, repeat treatment. hydroCHLOROthiazide 25 mg oral tablet (20 sources) Thiazide Diuretic Start: 02-20-2016 take 1 tablet by mouth once daily hydroCHLOROthiazide (HYDRODIURIL) 25 mg tablet Take 1 tablet (25 mg total) by mouth daily. 03/17/2019 Active hydroCHLOROthiaz kenji Active lisinopril 20 mg oral tablet (20 sources) Angiotensin Converting Enzyme Inhibitor Start: 06-14-2023 take 40 mg by mouth twice daily 40 mg, oral, 2 times daily, First dose on Sat06/14/23 at 2330, Look-alike/sound-alike medication - verify indication for use. Start: 04-16-2023 End: 04-15-2024 take 1 tablet [...] Look-alike/sound-alike medication - verify indication for use. 50 ml magnesium sulfate 40 mg/ml injection (3 sources) Start: 06-13-2023 magnesium sulf ate IVPB 2000 mg/50 mL in iso-osmotic water (40 mg/mL premix) Start: 06-13-2023 magnesium sulf ate IVPB 4000 mg/100 mL in iso-osmotic water (40 mg/mL premix) Start: 04-09-2023 End: 04-09-2023 2,000 mg, intravenous, at 25 mL/hr, Administer over 120 Minutes, Once, On 04/09/23 at 0915, For 1 dose, Infuse each gram over 60 minutes. metoprolol tartrate 25 mg oral tablet (20 sources) beta-Adrenergic Yoselin Start: 04-11-2023 End: [...] mg total) before bedtime. Hold if SBP . 05/03/2019 Active Metoprolol Succi sebastian Active 100 ml metroNIDAZOLE 5 mg/ml injection (1 source) Nitroimidazole Antimicrobial Start: 06-13-2023 take 500 mg intravenously every eight hours metroNIDAZOLE (FLAGYL) IVPB 500 mg/100 mL in iso-osmotic sodium chloride (5 mg/mL premix) mirtazapine 30 mg disintegrating oral tablet (4 sources) mirtazapine (REMERON VIRI-TAB) 30 mg disintegrating tablet Dissolve 1 tablet (30 mg total) on tongue nightly. Active Niacin (3 sources) Nicotinic Acid Start: 06-04-2022 niacin 500 mg ER Tab Refills(s) 0 Start Date: 06/04/22 Status: Ordered End: 04-17-2023 pantoprazole 40 mg delayed release oral tablet (20 sources) Proton Pump Inhibitor Start: 04-30-2022 take 1 tablet by mouth once daily before breakfast pantoprazole (PROTONIX) 40 mg EC tablet Take 1 tablet (40 mg total) by mouth every morning before breakfast. 06/04/2022 Active Pantoprazole Sod ium Active Potassium Chloride (20 sources) Start: 06-15-2023 potassium chlo ride (K-TAB,KLOR-CON) CR tablet 30-50 mEq Start: 06-13-2023 potassium chlo ride IVPB 10 mEq/100 mL in water (0.1 mEq/mL premix) Start: 02-05-2023 take 2 tablets by mo uth in the morning potassium chloride (K-TAB,KLOR-CON) 10 MEQ CR tablet Take 2 tablets (20 mEq total) by mouth in the morning and 2 tablets (20 mEq total) before bedtime. 02/05/2023 Active Start: 04-30-2022 take 20 mEq by mouth twice josette ly Potassium Chloride Active 20 MEQ PO Twice [...] times a day by oral route. Active Potassium Chlori de Active raNITIdine 75 mg oral tablet (2 sources) Histamine-2 Receptor Antagonist Start: 02-20-2016 take 75 mg by mouth once daily as needed ranitidine 75 mg, Oral, Daily, PRN Indigestion, takes when taking AQleve, Refills(s) 0 Start Date: 02/20/16 Status: Ordered sodium phosphate 20 mmol in sodium chloride 0.9 % 250 mL IVPB (1 source) Start: 06-13-2023 sodium phospha te 20 mmol in sodium chloride 0.9 % 250 mL IVPB Stool Softener (14 sources) Stool Softener Active Completed/Discontinued Medications Medication Drug Class(es) Dates Sig (Normalized) Sig (Original) albuterol 0.833 mg/ml / ipratropium bromide 0.167 mg/ml inhalation solution (5 sources) Anticholinergic, beta2-Adrenergic Agonist Start: 04-04-2023 End: 04-10-2023 3 mL, nebulization, Every 6 hours while awake, First dose (after last modification) on Sat04/09/23 at 0800, Implement INPATIENT/ED Bronchodilator Clinical Practice Guidelines? Yes, Document: \[facility]\ epic\EPIC_Reference\O rders\Respiratory Care Guidelines\CPG Bronchodilator 2020.pdf Start: 04-04-2023 End: 04-17-2023 take 3 mL by inhalation every four hours as needed for wheezing 3 mL, nebulization, Every 4 hours PRN, wheezing, Starting on Lety 04/04/23 at 0852, Implement INPATIENT/ED Bronchodilator Clinical Practice Guidelines? Yes, Document: \[facility]\epic\EPIC_Reference\Orde rs\Respiratory Care Guidelines\CPG Bronchodilator 2019.pdf barium sulfate (VARIBAR PUDDING) 40 % (w/v), 30% (w/w) oral paste 230 mL (1 source) Start: 06-15-2023 End: 06-15-2023 barium sulfate (VARIBAR PUDDING) 40 % (w/v), 30% (w/w) oral paste 230 mL barium sulfate (VARIBAR THIN) 81 % (w/w) powder 148 g (1 source) Start: 06-15-2023 End: 06-15-2023 barium sulfate (VARIBAR THIN) 81 % (w/w) powder 148 g bisacodyl 10 mg rectal suppository (1 source) Stimulant Laxative Start: 04-05-2023 End: 04-17-2023 10 mg, rectal, Every 3 days, First dose on Sat04/05/23 at 0900, Start at 0900 on day 2. Look-alike/sound-alike medication - verify indication for use. calcium chloride 0.0014 meq/ml / potassium chloride 0.004 meq/ml / sodium chloride 0.103 meq/ml / sodium lactate 0.028 meq/ml injectable solution (2 sources) Start: 06-13-2023 End: 06-13-2023 lactated ringers infusion Start: 04-12-2023 End: 04-13-2023 take 100 mL intravenously every hour 100 mL/hr, intravenous, Continuous, Starting on Sat04/12/23 at 1715, For 1 day carvedilol 25 mg oral tablet (17 sources) alpha-Adrenergic Yoselin, beta-Adrenergic Yoselin Start: 04-13-2023 End: 04-15-2024 take 1 tablet by mouth in the morning, then take 1 tablet by mouth at bedtime carvediloL (COREG) 25 mg tablet Take 1 tablet (25 mg total) by mouth in the morning and 1 tablet (25 mg total) before bedtime. 180 tablet 3 04/16/2023 06/16/2023 Discontinued (Stop Taking at Discharge) Start: 04-04-2023 End: 04-13-2023 12.5 mg, nasogastric, 2 time s daily, First dose (after last modification) on Lety 04/04/23 at 2100, Hold for SBP <100 and/or HR <60. Give with meal or snack. Look-alike/sound-alike medication - verify indication for use. Start: 04-03-2023 End: 04-04-2023 6.25 mg, nasogastric, 2 time s daily, First dose on Sat04/03/23 at 0900, Hold for SBP <100 and/or HR <60. Give with meal or snack. Look-alike/sound-alike medication - verify indication for use. docusate sodium 50 mg / sennosides, snf 8.6 mg oral tablet (1 source) Start: [...] min PRN, Pain Scale 1-5, Starting on Lety 04/11/23 at 1503, PACU (only), Up to a maximum dose of 150 mcg. Look-alike/sound-a like medication - verify indication for use. 0.5 ml fondaparinux sodium 5 mg/ml prefilled syringe (3 sources) Factor Xa Inhibitor Start: 04-14-2023 End: 04-17-2023 inject 2.5 mg by subcutaneous injection once daily 2.5 mg, subcutaneous, Daily, First dose (after last modification) on Sat04/14/23 at 0900, Look-alike/sound-a like medication - verify indication for use. Start: [...] for use. IVP rate = 20 mg/min 1 ml heparin sodium, porcine 5000 unt/ml [...] pressure greater than 160 mmHg, Starting on Sat04/11/23 at 1503, PACU (only), [...] every six hours as needed for pain iohexoL (OMNIPAQUE) 350 mg iodine/mL injection 100 mL (1 source) Start: 06-13-2023 End: 06-13-2023 iohexoL (OMNIPAQUE) 350 mg iodine/mL injection 100 mL 4 ml labetalol hydrochloride 5 mg/ml cartridge [...] at 2200 on day 1 Shake well. melatonin 3 mg oral tablet (9 sources) Start: 04-04-2023 End: 04-17-2023 6 mg, nasogastric, Nightly P RN, sleep, Starting on Sat04/10/23 at 0946 take 1 tablet by mouth once bertha y melatonin (CIRCADIN) tablet Take 1 tablet (3 mg total) by mouth nightly. Active methylPREDNISolone 4 mg oral tablet (14 sources) Corticosteroid Start: 06-20-2022 Medrol 4 MG as directed Orally 15 Jun, 2022 Not-Taking/PRN niCARdipine (CARDENE) infusion 25 mg/50 mL in [...] the site of infusion every 12 hours. Look-alike/sound-ali ke medication. Verify indication for use. Do not combine or run in the same line as other medications. 2 ml ondansetron 2 mg/ml injection (6 sources) Serotonin-3 Receptor Antagonist Start: 04-11-2023 End: 04-17-2023 4 mg, intravenous, Once as needed, nausea, Starting on Lety 04/11/23 at 1503, For 1 dose, PACU (only), Administer over 2-5 minutes. Start: 04-01-2023 End: 04-01-2023 Starting on 04/01/23 at 1604, For 1 dose, Sample, Camacho: celinet override Administer over 2-5 minutes. Start: 04-01-2023 End: 04-17-2023 take 4 mg intravenously every six hours as needed for nausea and vomiting 4 mg, intravenous, Every 6 hours PRN, nausea, vomiting, Starting on Sat04/01/23 at 1603, Administer over 2-5 minutes. take 1 tablet by melly every eight hours as needed for nausea and vomiting ondansetron ODT (ZOFRAN ODT) 4 mg disintegrating tablet Dissolve 1 tablet (4 mg total) on tongue every 8 (eight) hours as needed for nausea or vomiting. Active polyethylene glycol [id number] [id number] mg / potassium chloride 1480 mg / sodium bicarbonate 5720 mg / sodium chloride 76272 mg powder for oral solution (1 source) Osmotic Laxative Start: 06-13-2023 End: 06-13-2023 polyethylene glycol-electrolytes (NULYTELY) solution 4,000 mL predniSONE 5 mg oral tablet (13 sources) [...] PRN, Agitation, Starting on Sat04/05/23 at 0309, Look-alike/sound-alike medication - verify indication for use. 1000 ml sodium chloride 9 mg/ml injection (15 sources) Start: 06-13-2023 End: 06-13-2023 sodium chloride 0.9 % flush 10 mL Start: 06-13-2023 End: 06-13-2023 sodium chloride 0.9 % radiol ogy injection Start: 06-13-2023 sodium chlorid e 0.9 % flush 3 mL Start: 06-13-2023 End: 06-13-2023 sodium chloride 0.9 % infusi on Start: 04-12-2023 End: 04-12-2023 10 mL, intravenous, Once in imaging, line care, Starting on Sat04/12/23 at 0328, For 1 dose, Additional Imaging Orders Start: 04-06-2023 End: 04-06-2023 10 mL, intravenous, Once in imaging, line care, Starting on 04/06/23 at 1529, For 1 dose, Additional Imaging Orders Start: 04-01-2023 End: 04-17-2023 80 mL, intravenous, Once in imaging, pre/post contrast, Starting on Sat04/12/23 at 0328, For 1 dose, Additional Imaging Orders triamcinolone acetonide 40 mg/ml injectable suspension (20 sources) Corticosteroid Start: 08-31-2022 Kenalog-40 August, 20 mg Start: 12-22-2017 KENALOG - 10 m g Dec, 40 mg (2 sources) Start: 04-12-2023 End: 04-12-2023 100 mL, intravenous, Once in imaging, contrast, Starting on Sat04/12/23 at 0328, For 1 dose, Additional Imaging [...] 125 mL/hr, intravenous, Cont inuous, Starting on Sat04/08/23 at 0830, For Sodium level 160 mmol/L or iyoknoq=797 mL/hr; 150 to 159 mmol/L=125 mL/hr; 145 [...] 04-17-2023 1 spray, oral, As needed, dr marv mouth, Starting on Sat04/09/23 at 0928 (1 source) Start: 04-04-2023 End: 04-17-2023 40 mg, nasogastric, Daily, F irst dose on Sat04/04/23 at 0900, Administer 1 hour before a meal. Suspend tube feeding for 3 hours before and 1 hour after administering. 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, subcortical] Onset: 04-01-2023 Chronic Aortic; peripheral; and visceral artery aneurysms (20 sources) Thoracic aortic aneurysm, without rupture; Translations: [Aneurysm of artery of lower extremity] Onset: 08-05-2018 Chronic Biliary tract disease (8 sources) Gallbladder calculus with acute cholecystitis and no obstruction; Translations: [Calculus of gallbladder with acute cholecystitis without obstruction] Episodic Cardiac dysrhythmias (1 source) Bradycardia, unspecified; Translations: [Bradycardia, unspecified] Onset: 04-01-2023 Episodic Chronic obstructive pulmonary disease and bronchiectasis (16 sources) Acute exacerbation of chronic obstructive airways disease; Translations: [Chronic obstructive pulmonary disease with (acute) exacerbation] Onset: 11-05-2017 Chronic Coagulation and hemorrhagic disorders (6 sources) Thrombocytopenic disorder; Translations: [Thrombocytopenia, unspecified] Chronic Delirium, dementia, and amnestic and other cognitive disorders (7 sources) Dementia; Translations: [Unspecified dementia without behavioral disturbance] Onset: 06-13-2023 06-13-2023 Chronic Disorders of lipid metabolism (16 sources) Mixed hyperlipidemia; Translations: [Mixed hyperlipidemia] Onset: 04-08-1959 Chronic E Codes: Fall (1 source) Unspecified fall, initial encounter; Translations: [UNSPECIFIED FALL INITIAL ENCOUNTER] Onset: 05-01-2022 Episodic Esophageal disorders (8 sources) Gastroesophageal reflux disease without esophagitis; Translations: [Gastro-esophageal reflux disease without esophagitis] Chronic Essential hypertension (20 sources) Essential hypertension; Translations: [Essential (primary) hypertension] Onset: 06-13-2023 Chronic Fracture of upper limb (18 sources) Fracture at wrist and/or hand level; Translations: [Fracture of unspecified carpal bone, right wrist, initial encounter for closed fracture] Onset: 04-30-2022 04-30-2022 Episodic Headache; including migraine (8 sources) Chronic migraine without aura, non-refractory; Translations: [Migraine without aura, not intractable, without status migrainosus] Chronic Inflammatory diseases of female pelvic organs (8 sources) Acute vaginitis; Translations: [Acute vaginitis] Episodic Late effects of cerebrovascular disease (7 sources) History of hemorrhagic cerebrovascular accident with residual deficit; Translations: [Unspecified sequelae of cerebral infarction] Onset: 06-13-2023 06-13-2023 Chronic Menopausal disorders (8 sources) Menopause present; Translations: [Menopausal and female climacteric states] Chronic Osteoarthritis (8 sources) Osteoarthritis; Translations: [Unspecified osteoarthritis, unspecified site] Chronic Other aftercare (1 source) terminal carman (current) use of aspirin; Translations: [[facility] CURRENT USE OF ASPIRIN] Onset: 05-01-2022 Episodic Other aftercare (1 source) Other medical terminologist (current) drug therapy; Translations: [[employer] CURRENT DRUG THERAPY] Onset: 05-01-2022 Episodic Other bone disease and musculoskeletal deformities [...] reading, without diagnosis of hypertension] Episodic Other connective tissue disease (1 source) Other bursitis of knee, right knee; Translations: [Other bursitis of knee, right knee] Onset: 06-13-2023 Episodic Other diseases of kidney and ureters (7 sources) Renal mass; Translations: [Other specified disorders of kidney and ureter] Onset: 06-13-2023 06-13-2023 Chronic Other nervous system disorders (12 sources) Carpal [...] wrist; Translations: [PAIN IN RIGHT WRIST] Onset: 04-27-2022 Episodic Other screening for suspected conditions (not mental disorders or infectious disease) (5 sources) Encounter for screening mammogram for malignant neoplasm of breast; Translations: [ENC SCR MAMMO MALIG NEOPLASM BREAST] Onset: 04-25-2022 Episodic Other skin disorders (12 sources) Localized swelling, mass and lump, left lower limb; Translations: [LOC SWELL MASS LUMP LT LOWER LIMB] Onset: 06-06-2021 Episodic Other skin disorders (8 sources) Changes in skin texture; Translations: [Changes in skin texture] Episodic Other upper respiratory disease (7 sources) Allergic rhinitis; Translations: [Allergic rhinitis, unspecified] Onset: 10-11-2015 Chronic Other upper respiratory disease (1 source) Allergic rhinitis, unspecified; Translations: [Allergic rhinitis, unspecified] Onset: 10-11-2015 Chronic Other upper respiratory infections (8 sources) Chronic sinusitis; Translations: [Chronic sinusitis, unspecified] Chronic Peripheral and visceral atherosclerosis (7 sources) Ischemic colitis; Translations: [Vascular disorder of intestine, unspecified] Onset: 06-13-2023 06-13-2023 Chronic Poisoning by nonmedicinal substances (9 sources) Toxic effect of venom of wasps, accidental (unintentional), initial encounter; Translations: [Toxic effect of venom] Episodic Residual codes; unclassified (8 sources) Other specified postprocedural states; Translations: [OTH SPECIFIED POSTPROCEDURAL STATES] Onset: 05-14-2022 Episodic Residual codes; unclassified (1 source) Pain, unspecified; Translations: [Pain, unspecified] Onset: 08-28-2024 Episodic Spondylosis; intervertebral disc disorders; other back problems (1 source) Spondylosis without myelopathy or radiculopathy, lumbar region; Translations: [SPONDYLS W/O MYELO-/RADICULOP LUMB] Onset: 04-18-2022 Chronic Substance-related disorders (8 sources) Nicotine dependence; Translations: [Nicotine dependence, cigarettes, with other nicotine-induced disorders] Onset: 05-30-2016 Chronic Unclassified (3 sources) LOW BACK PAIN, UNSPECIFIED; Translations: [LOW BACK PAIN, UNSPECIFIED] Onset: 04-18-2022 Unclassified (1 source) Other extraarticular fracture of lower end of right radius, subsequent encounter for closed fracture with routine healing; Translations: [Other extraarticular fracture of lower end of right radius, subsequent encounter for closed fracture with routine healing] Onset: 08-31-2022 Unclassified (1 source) Age-related osteoporosis with current pathological fracture, right forearm, initial encounter for fracture; Translations: [Age-related osteoporosis with current pathological fracture, right forearm, initial encounter for fracture] Onset: 04-30-2022 Unclassified (1 source) Abdominal aortic aneurysm, without rupture, unspecified; Translations: [Abdominal aortic aneurysm, without rupture, unspecified] Unclassified (1 source) Left thalamic hemorrhage Onset: 04-01-2023 Unclassified (1 source) 1 year follow AAA. With CTA Chest/Abd/Pel at [place] Onset: 08-27-2024 Past or Other Problems Problem Classification Problem Date Documented Da te Episodic/Chronic Acute posthemorrhagic anemia (7 sources) Acute posthemorrhagic anemia; Translations: [Acute posthemorrhagic anemia] Onset: 06-13-2023 06-13-2023 Episodic Bacterial infection; unspecified site (8 sources) Bacterial infectious disease; Translations: [Bacterial infection, unspecified, in conditions classified elsewhere and of unspecified site] Onset: 05-30-2016 Episodic Gastrointestinal hemorrhage (10 sources) Hemorrhage of anus and rectum; Translations: [Gastrointestinal hemorrhage, unspecified] Onset: 06-13-2023 Episodic Immunizations and screening for infectious disease (8 sources) Vaccination given; Translations: [Encounter for immunization] Onset: 02-09-2016 Episodic Mood disorders (6 sources) Mood disorders Onset: 06-13-2023 06-13-2023 Neoplasms of unspecified nature or uncertain behavior (7 sources) Neoplasm of uncertain behavior of soft tissues; Translations: [Neoplasms of unspecified nature of bone, soft tissue, and skin] Onset: 11-28-2012 Episodic Other connective tissue disease (1 source) Pain in unspecified limb; Translations: [Pain in unspecified limb] Onset: 04-30-2022 Episodic Other connective tissue disease (1 source) Suprapatellar bursitis of right knee; Translations: [Other bursitis of knee, right knee] 06-16-2023 Episodic Other nervous system disorders (1 source) [...] use; Translations: [Tobacco use] Onset: 05-30-2016 Episodic Residual codes; unclassified (8 sources) History of repair of aneurysm of abdominal aorta; Translations: [Other specified postprocedural states] Onset: 06-13-2023 06-13-2023 Episodic Screening and history of mental health [...] Test Name Value Interpretation Reference Range Facility [place] [address] CT Scan Report Signed Patient: ELLEN CHAN MR#: [id number] : 1945 Acct:[id number] Age/Sex: 79 / F ADM Date: 07/21/24 Loc: LAB Attending Dr: Leon Hyde M.D. Ordering Physician: Leon Hyde M.D. Date of Service: 07/21/24 Procedure(s): CT angio abdomen pelvis Accession Number(s): [id number] cc: Nithya Malloy M.D. [address] [address] Patient Name: ELLEN CHAN MRN: [id number] date: 1945 Sex: F Assigned Patient Location: LAB Current Patient Location: LAB Accession/Order Number: [id number] Exam Date: 07/21/2024 14:36 Report Date: 07/21/2024 15:04 At the request of: LEON HYDE MD Procedure: CT angio abdomen pelvis CTA chest and CTA abdomen and pelvis . CLINICAL DATA: Abdominal aortic aneurysm follow-up.. TECHNIQUE: Intravenous contrast-enhanced CT angiography of the chest and CT angiography of the abdomen and pelvis were performed. Axial, sagittal, coronal, and 3D-dimensional reconstructions were created and reviewed. These CT exams were performed using one or more of the following dose reduction techniques: Automated exposure control, adjustment of the mA and/or kV according to patient size, or use of iterative reconstruction technique. COMPARISON: CT abdomen and pelvis 09/04/2023 CTA chest 07/26/2021. FINDINGS: Chest: Mediastinum:Endovascul ar repair of the descending thoracic aorta similar to the prior study. The stent graft appears patent. There is aneurysmal dilatation of the aortic arch measuring 4.8 cm in greatest axial dimension similar to the prior study once measuring 4.7 cm on the 2021 study. No dissection or rupture is seen. Pulmonary trunk appears nondilated. Cardiomegaly. No pericardial effusion. No lymphadenopathy. The esophagus is grossly unremarkable. Lungs:Bibasilar atelectasis. Dependent atelectatic changes. No consolidation pneumothorax or pleural effusion. No suspicious pulmonary nodule. Soft tissues/Bones: Soft tissues demonstrate no acute process. Osseous structures demonstrate degenerative changes. Mild compression deformity T5 vertebral body new since the 2021 study. No acute fracture line or retropulsion into the spinal canal is seen. Abdomen and pelvis: Organs:Gallbladder has been removed. Splenic granulomas. Liver pancreas and adrenal glands appear unremarkable. Cystic changes involving the kidneys. 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 The graft appears patent.. [place] aneurysmal sac measures 6.3 cm with what appears to be an endoleak on axial image 105 series 4. Previous viejas aneurysmal sac size is 5.5 cm. 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 No critical stenosis or occlusion is seen involving the major visceral branches of the aorta. ] GI: Stomach demonstrates a small hiatal hernia. Small bowel appears nondilated. No acute colonic abnormality. Left colon diverticulosis.[ Pelvis:[Uterus has been removed. Urinary bladder is grossly unremarkable.] Peritoneum/Retroperito neum:No free air or free fluid or lymphadenopathy.[ Abd wall/Bones:No acute findings.[Osseous structures demonstrate degenerative change. CT/CT angio abdomen pelvis IMPRESSION: 1. No significant change in thoracic aortic findings compared to the prior study from 2021. Stent involving the descending thoracic aorta appears patent. 2. 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 Type of endoleak is unclear. If intervention is not performed, CTA follow-up is recommended. 3. Compression deformity T5 vertebral body new since 2021. Impression dictated by: Kit Quinonez Jr., D.O.07/21/2024 3:04 PM (more content not included)... [facility] Radiology, Radiologist, MD - 07/21/2024 [place] [address] CT Scan Report Signed Patient: ELLEN CHAN MR#: [id number] : 1945 Acct:[id number] Age/Sex: 79 / F ADM Date: 07/21/24 Loc: LAB Attending Dr: Leon Hyde M.D. Ordering Physician: Leon Hyde M.D. Date of Service: 07/21/24 Procedure(s): CT angio abdomen pelvis Accession Number(s): [id number] cc: Nithya Malloy M.D. [facility] [place] [id number] Patient Name: ELLEN CHAN MRN: [facility]:[id number] date: 1945 Sex: F Assigned Patient Location: LAB Current Patient Location: LAB Accession/Order Number: [id number] Exam Date: 07/21/2024 14:36 Report Date: 07/21/2024 15:04 At the request of: LEON HYDE MD Procedure: CT angio abdomen pelvis CTA chest and CTA abdomen and pelvis . CLINICAL DATA: Abdominal aortic aneurysm follow-up.. TECHNIQUE: Intravenous contrast-enhanced CT angiography of the chest and CT angiography of the abdomen and pelvis were performed. Axial, sagittal, coronal, and 3D-dimensional reconstructions were created and reviewed. These CT exams were performed using one or more of the following dose reduction techniques: Automated exposure control, adjustment of the mA and/or kV according to patient size, or use of iterative reconstruction technique. COMPARISON: CT abdomen and pelvis 09/04/2023 CTA chest 07/26/2021. FINDINGS: Chest: Mediastinum:Endovascul ar repair of the descending thoracic aorta similar to the prior study. The stent graft appears patent. There is aneurysmal dilatation of the aortic arch measuring 4.8 cm in greatest axial dimension similar to the prior study once measuring 4.7 cm on the 2021 study. No dissection or rupture is seen. Pulmonary trunk appears nondilated. Cardiomegaly. No pericardial effusion. No lymphadenopathy. The esophagus is grossly unremarkable. Lungs:Bibasilar atelectasis. Dependent atelectatic changes. No consolidation pneumothorax or pleural effusion. No suspicious pulmonary nodule. Soft tissues/Bones: Soft tissues demonstrate no acute process. Osseous structures demonstrate degenerative changes. Mild compression deformity T5 vertebral body new since the 2021 study. No acute fracture line or retropulsion into the spinal canal is seen. Abdomen and pelvis: Organs:Gallbladder has been removed. Splenic granulomas. Liver pancreas and adrenal glands appear unremarkable. Cystic changes involving the kidneys. 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 The graft appears patent.. [place] aneurysmal sac measures 6.3 cm with what appears to be an endoleak on axial image 105 series 4. Previous viejas aneurysmal sac size is 5.5 cm. 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 No critical stenosis or occlusion is seen involving the major visceral branches of the aorta. ] GI: Stomach demonstrates a small hiatal hernia. Small bowel appears nondilated. No acute colonic abnormality. Left colon diverticulosis.[ Pelvis:[Uterus has been removed. Urinary bladder is grossly unremarkable.] Peritoneum/Retroperito neum:No free air or free fluid or lymphadenopathy.[ Abd wall/Bones:No acute findings.[Osseous structures demonstrate degenerative change. CT/CT angio abdomen pelvis IMPRESSION: 1. No significant change in thoracic aortic findings compared to the prior study from 2021. Stent involving the descending thoracic aorta appears patent. 2. 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 Type of endoleak is unclear. If intervention is not performed, CTA follow-up is recommended. 3. Compression deformity T5 vertebral body new since 2021. Impression dictated by: Kit Quinonez Jr., D.OCara07/21/2024 3:04 PM Dictation Location: [place] [address] Electronically authenticated by: [id number] Y Date: 07/21/2024 15:04 Dictated By: Kit Quinonez M.D. Signed By: 07/21/24 1506 DD/ 1504 TD/TT: Manager Secondary: [facility] CTA Chest vessels WO and W c ontrast Mónica 07-21-2024 [place] [address] CT Scan Report Signed Patient: ELLEN CHAN MR#: [id number] : 1945 Acct:[id number] Age/Sex: 79 / F ADM Date: 07/21/24 Loc: LAB Attending Dr: Leon Hyde M.D. Ordering Physician: Leon Hyde M.D. Date of Service: 07/21/24 Procedure(s): CT angio chest Accession Number(s): [id number] cc: Nithya Malloy M.D. [place] [address] Patient Name: ELLEN CHAN MRN: [id number] date: 1945 Sex: F Assigned Patient Location: LAB Current Patient Location: LAB Accession/Order Number: [id number] Exam Date: 07/21/2024 14:36 Report Date: 07/21/2024 15:04 At the request of: LEON HYDE MD Procedure: CT angio abdomen pelvis CTA chest and CTA abdomen and pelvis . CLINICAL DATA: Abdominal aortic aneurysm follow-up.. TECHNIQUE: Intravenous contrast-enhanced CT angiography of the chest and CT angiography of the abdomen and pelvis were performed. Axial, sagittal, coronal, and 3D-dimensional reconstructions were created and reviewed. These CT exams were performed using one or more of the following dose reduction techniques: Automated exposure control, adjustment of the mA and/or kV according to patient size, or use of iterative reconstruction technique. COMPARISON: CT abdomen and pelvis 09/04/2023 CTA chest 07/26/2021. FINDINGS: Chest: Mediastinum:Endovascul ar repair of the descending thoracic aorta similar to the prior study. The stent graft appears patent. There is aneurysmal dilatation of the aortic arch measuring 4.8 cm in greatest axial dimension similar to the prior study once measuring 4.7 cm on the 2021 study. No dissection or rupture is seen. Pulmonary trunk appears nondilated. Cardiomegaly. No pericardial effusion. No lymphadenopathy. The esophagus is grossly unremarkable. Lungs:Bibasilar atelectasis. Dependent atelectatic changes. No consolidation pneumothorax or pleural effusion. No suspicious pulmonary nodule. Soft tissues/Bones: Soft tissues demonstrate no acute process. Osseous structures demonstrate degenerative changes. Mild compression deformity T5 vertebral body new since the 2021 study. No acute fracture line or retropulsion into the spinal canal is seen. Abdomen and pelvis: Organs:Gallbladder has been removed. Splenic granulomas. Liver pancreas and adrenal glands appear unremarkable. Cystic changes involving the kidneys. 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 The graft appears patent.. [place] aneurysmal sac measures 6.3 cm with what appears to be an endoleak on axial image 105 series 4. Previous viejas aneurysmal sac size is 5.5 cm. 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 No critical stenosis or occlusion is seen involving the major visceral branches of the aorta. ] GI: Stomach demonstrates a small hiatal hernia. Small bowel appears nondilated. No acute colonic abnormality. Left colon diverticulosis.[ Pelvis:[Uterus has been removed. Urinary bladder is grossly unremarkable.] Peritoneum/Retroperito neum:No free air or free fluid or lymphadenopathy.[ Abd wall/Bones:No acute findings.[Osseous structures demonstrate degenerative change. CT/CT angio chest IMPRESSION: 1. No significant change in thoracic aortic findings compared to the prior study from 2021. Stent involving the descending thoracic aorta appears patent. 2. 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 Type of endoleak is unclear. If intervention is not performed, CTA follow-up is recommended. 3. Compression deformity T5 vertebral body new since 2021. Impression dictated by: Kit Quinonez Jr., D.O.07/21/2024 3:04 PM Dictation Loc (more content not included)... [facility] Radiology, Radiologist, MD - 07/21/2024 [place] [address] CT Scan Report Signed Patient: ELLEN CHAN MR#: [id number] : 1945 Acct:[id number] Age/Sex: 79 / F ADM Date: 07/21/24 Loc: LAB Attending Dr: Leon Hyde M.D. Ordering Physician: Leon Hyde M.D. Date of Service: 07/21/24 Procedure(s): CT angio chest Accession Number(s): [id number] cc: Nithya Malloy M.D. [facility] [place] [address] Patient Name: ELLEN CHAN MRN: [facility]:[id number] date: 1945 Sex: F Assigned Patient Location: LAB Current Patient Location: LAB Accession/Order Number: [id number] Exam Date: 07/21/2024 14:36 Report Date: 07/21/2024 15:04 At the request of: LEON HYDE MD Procedure: CT angio abdomen pelvis CTA chest and CTA abdomen and pelvis . CLINICAL DATA: Abdominal aortic aneurysm follow-up.. TECHNIQUE: Intravenous contrast-enhanced CT angiography of the chest and CT angiography of the abdomen and pelvis were performed. Axial, sagittal, coronal, and 3D-dimensional reconstructions were created and reviewed. These CT exams were performed using one or more of the following dose reduction techniques: Automated exposure control, adjustment of the mA and/or kV according to patient size, or use of iterative reconstruction technique. COMPARISON: CT abdomen and pelvis 09/04/2023 CTA chest 07/26/2021. FINDINGS: Chest: Mediastinum:Endovascul ar repair of the descending thoracic aorta similar to the prior study. The stent graft appears patent. There is aneurysmal dilatation of the aortic arch measuring 4.8 cm in greatest axial dimension similar to the prior study once measuring 4.7 cm on the 2021 study. No dissection or rupture is seen. Pulmonary trunk appears nondilated. Cardiomegaly. No pericardial effusion. No lymphadenopathy. The esophagus is grossly unremarkable. Lungs:Bibasilar atelectasis. Dependent atelectatic changes. No consolidation pneumothorax or pleural effusion. No suspicious pulmonary nodule. Soft tissues/Bones: Soft tissues demonstrate no acute process. Osseous structures demonstrate degenerative changes. Mild compression deformity T5 vertebral body new since the 2021 study. No acute fracture line or retropulsion into the spinal canal is seen. Abdomen and pelvis: Organs:Gallbladder has been removed. Splenic granulomas. Liver pancreas and adrenal glands appear unremarkable. Cystic changes involving the kidneys. 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 The graft appears patent.. [place] aneurysmal sac measures 6.3 cm with what appears to be an endoleak on axial image 105 series 4. Previous viejas aneurysmal sac size is 5.5 cm. 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 No critical stenosis or occlusion is seen involving the major visceral branches of the aorta. ] GI: Stomach demonstrates a small hiatal hernia. Small bowel appears nondilated. No acute colonic abnormality. Left colon diverticulosis.[ Pelvis:[Uterus has been removed. Urinary bladder is grossly unremarkable.] Peritoneum/Retroperito neum:No free air or free fluid or lymphadenopathy.[ Abd wall/Bones:No acute findings.[Osseous structures demonstrate degenerative change. CT/CT angio chest IMPRESSION: 1. No significant change in thoracic aortic findings compared to the prior study from 2021. Stent involving the descending thoracic aorta appears patent. 2. 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 Type of endoleak is unclear. If intervention is not performed, CTA follow-up is recommended. 3. Compression deformity T5 vertebral body new since 2021. Impression dictated by: Kit Quinonez Jr., D.O.07/21/2024 3:04 PM Dictation Location: [place] [address] Electronically authenticated by: [id number] Y Date: 07/21/2024 15:04 Dictated By: Kit Quinonez M.D. Signed By: 07/21/24 1506 DD/ 1504 TD/TT: Manager Secondary: [employer] No Panel InformationOrdered By: Radiologist Radiology on 07-21-2024 [employer] e Work Phone: No Panel Informationon 07-21 Radiology Study observation (narrative) BHARATH [facility] 36on 09-23-2023 36 Personnel Assistant tried to call family member no answer phone just rang, to see if someone could be present to video visit, ticket writer cancel appointment. [facility] 36on 09-16-2023 36 Attemped to call for telemed rooming questions. Pt's VM box is full. 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 Patient was unable to make it to appointment due to transportation, also patient needs family an advocate to help the family and patient understand what is going on with patient's care. Skip stated that if someone could call and explain what the plan may be for future or if any more procedures need done he is able to help and speak to the family to see if this is what the family's hope if for the patient to move forward with care for the patient's GI care. Please advise. ThankAyanna CMA Fritz # is [phone] Ext 125 Normal [facility] 36 Skip from the [place] [facility] [place] called in regarding pts GI appt. Davidcaron explained that family is no so helpful with coming to appts with pt to explain what is going on with GI bleed and she would not be able to answer any questions. Fritz is asking if we could do a telehealth appt so that he could answer some of the questions for her Normal [facility] BASIC METABOLIC PANLon 06-15 Anion gap [Moles/Vol] 8 mmol/L Normal 5-15 [facility] Comment on above: Performed By: #### C BCA, BMP, PINR ####[facility] ([id number])[address], [address], [place] [address] Calcium [Mass/Vol] 8.8 mg/dL Normal 8.5-10.5 [facility] Comment on above: Performed By: #### C BCA, BMP, PINR ####[facility] ([id number])[address], [address], [place] [address] Chloride [Moles/Vol] 106 mmol/L Normal 98-109 [facility] Comment on above: Performed By: #### C BCA, BMP, PINR ####[facility] ([id number])[address], [address] [address] CO2 [Moles/Vol] 27 mmol/L Normal 22-32 [facility] Comment on above: Performed By: #### C BCA, BMP, PINR ####[facility] ([id number])[address], [address], [place] [address] Creatinine [Mass/Vol] 0.45 mg/dL Normal 0.40-1.00 [facility] Comment on above: Result Comment: METH OD TRACEABLE TO IDMS STANDARD Performed By: #### C BCA, BMP, PINR ####[facility] ([id number])[address] [address] eGFR (CKD-EPI) NON-RACE DEPENDENT >90 Normal >59 [facility] Comment on above: Result Comment: Repo rted eGFR is based on theCKD-EPI 2020 equation that doesnot use a race coefficient. Performed By: #### C BCA, BMP, PINR ####[facility] ([id number])[address] [address] [place] [address] Glucose [Mass/Vol] 80 mg/dL Normal 65-99 [facility] Comment on above: Performed By: #### C BCA, BMP, PINR ####[facility] ([id number])[address] [address] Potassium [Moles/Vol] 3.9 mmol/L Normal 3.5-5.0 [facility] Comment on above: Performed By: #### C BCA, BMP, PINR ####[facility] ([id number])[address] [address] Sodium [Moles/Vol] 141 mmol/L Normal 134-146 [facility] Comment on above: Performed By: #### C BCA, BMP, PINR ####[facility] ([id number])[address] [address] Urea nitrogen [Mass/Vol] 5 mg/dL Normal 5-27 [facility] Comment on above: Performed By: #### C BCA, BMP, PINR ####[facility] ([id number])[address] [address] Basic Metabolic Panelon 06-06 Anion gap [Moles/Vol] 8 mmol/L 5 - 15 mmol/L [facility] Calcium [Mass/Vol] 8.8 mg/dL 8.5 - 10. 5 mg/dL [facility] Chloride [Moles/Vol] 106 mmol/L 98 - 10 9 mmol/L [facility] CO2 [Moles/Vol] 27 mmol/L 22 - 32 mmol/L [facility] Creatinine [Mass/Vol] 0.45 mg/dL 0.40 - 1.00 mg/dL [facility] Comment on above: METHOD TRACEABLE TO IDOH STANDARD eGFR (CKD-EPI)non-race dependent - PINF [facility] Comment on above: Reported eGFR is based on the CKD-EPI 2020 equation that does not use a race coefficient. Glucose [Mass/Vol] 80 mg/dL 65 - 99 mg/dL [facility] Potassium [Moles/Vol] 3.9 mmol/L 3.5 - 5.0 mmol/L [facility] Sodium [Moles/Vol] 141 mmol/L 134 - 146 mmol/L [facility] Urea nitrogen [Mass/Vol] 5 mg/dL 5 - 27 mg/dL [facility] CBC AND AUTO DIFFon 06-16-19 ABSOLUTE BASOPHIL 0.0 X10E9/L Normal 0.0-0.2 [facility] Comment on above: Performed By: #### C LUIS BARAHONA, PINR ####[facility] ([id number])[address], [address] [place] [address] ABSOLUTE NEUTROPHIL 4.2 X10E9/L Normal 1.5-6.6 [facility] Comment on above: Performed By: #### C LUIS BARAHONA, PINR ####[facility] ([id number])[address], [address] [place] [address] Basophils/100 WBC (Bld) 0.1 % Normal P [facility] Comment on above: Performed By: #### C LUIS BARAHONA, PINR ####[facility] ([id number])[address], [address] [place] [address] Eosinophils (Bld) [#/Vol] 0.2 10*3/uL Normal 0.0-0.4 [facility] Comment on above: Performed By: #### C BROOKLYN, BMP, PINR ####[facility] ([id number])[address], [address], [place] [address] Eosinophils/100 WBC (Bld) 4.1 % Normal [facility] Comment on above: Performed By: #### C BROOKLYN, BMP, PINR ####[facility] ([id number])[address], [address], [place] [address] Erythrocyte distribution width (RBC) [Ratio] 16.0 % High 11.5-15.0 [facility] Comment on above: Performed By: #### C BROOKLYN, LUIS, PINR ####[facility] ([id number])[address], [address], [place] [address] Hematocrit (Bld) [Volume fraction] 35.2 % Normal 35-47 [facility] Comment on above: Performed By: #### C BROOKLYN, BMP, PINR ####[facility] ([id number])[address] [address], [place] [address] Hemoglobin (Bld) [Mass/Vol] 11.9 g/dL Normal 11.7-15.5 [facility] Comment on above: Performed By: #### C BROOKLYN, BMP, PINR ####[facility] ([id number])[address] [address], [place] [address] Lymphocytes (Bld) [#/Vol] 1.1 10*3/uL Normal 1.0-3.5 [facility] Comment on above: Performed By: #### C BROOKLYN, BMP, PINR ####[facility] ([id number])[address] [address], [place] [address] Lymphocytes/100 WBC (Bld) 17.8 % Normal [facility] Comment on above: Performed By: #### C BROOKLYN, BMP, PINR ####[facility] ([id number])[address], [address] [place] [address] MCH (RBC) [Entitic mass] 28.3 pg Normal 27-34 [facility] Comment on above: Performed By: #### C BROOKLYN BMP, PINR ####[facility] ([id number])[address], [address] [place] [address] MCHC (RBC) [Mass/Vol] 34.0 g/dL Normal 32-36 [facility] Comment on above: Performed By: #### C BROOKLYN, BMP, PINR ####[facility] ([id number])[address] [place] [address] MCV (RBC) [Entitic vol] 83 fL Normal 80-100 [facility] Comment on above: Performed By: #### C LUIS BARAHONA, PINR ####[facility] ([id number])[address], [address] [place] [address] Monocytes (Bld) [#/Vol] 0.6 10*3/uL Normal 0-0.9 [facility] Comment on above: Performed By: #### C LUIS BARAHONA, PINR ####[facility] ([id number])[address] [address] [address] Monocytes/100 WBC (Bld) 9.6 % Normal [facility] Comment on above: Performed By: #### C BROOKLYN, BMP, PINR ####[facility] ([id number])[address] [address] [address] Neutrophils/100 WBC (Bld) 68.4 % Normal [facility] Comment on above: Performed By: #### C BROOKLYN, BMP, PINR ####[facility] ([id number])[address], [address] [place] [address] Platelet mean volume (Bld) [Entitic vol] 8.8 fL Normal 7-12 [facility] Comment on above: Performed By: #### C BROOKLYN, BMP, PINR ####[facility] ([id number])[address] [address] Platelets (Bld) [#/Vol] 79 10*3/uL Low 150-450 [facility] Comment on above: Performed By: #### Batsheva BARAHONA, BMP, PINR ####[facility] ([id number])[address], [address] [place] [address] RBC COUNT 4.22 X10E12/L Normal 3.80-5.20 [facility] Comment on above: Performed By: #### Batsheva BARAHONA, BMP, PINR ####[facility] ([id number])[address] [address] WBC (Bld) [#/Vol] 6.1 10*3/uL Normal 4.0-11.0 [facility] Comment on above: Performed By: #### Batsheva BARAHONA, BMP, PINR ####[facility] ([id number])[address] [address] CBC auto differentialon 06-06 Basophils (Bld) [#/Vol] 0.0 10*3/uL [facility] Basophils/100 WBC (Bld) 0.1 % [facility] Eosinophils (Bld) [#/Vol] 0.2 10*3/uL [facility] Eosinophils/100 WBC (Bld) 4.1 % [facility] Erythrocyte distribution width (RBC) [Ratio] 16.0 % High 11.5 - 15.0 % [facility] Hematocrit (Bld) [Volume fraction] 35.2 % 35 - 47 % [facility] Hemoglobin (Bld) [Mass/Vol] 11.9 g/dL 11.7 - 15.5 g/dL [facility] Interpretation and review of laboratory results Abnormal [facility] Lymphocytes (Bld) [#/Vol] 1.1 10*3/uL [facility] Lymphocytes/100 WBC (Bld) 17.8 % [facility] MCH (RBC) [Entitic mass] 28.3 pg 27 - 34 pg [facility] MCHC (RBC) [Mass/Vol] 34.0 g/dL 32 - 3 6 g/dL [facility] MCV (RBC) [Entitic vol] 83 fL 80 - 100 [facility] Monocytes (Bld) [#/Vol] 0.6 10*3/uL [facility] Monocytes/100 WBC (Bld) 9.6 % P [facility] Neutrophils (Bld) [#/Vol] 4.2 10*3/uL [facility] Neutrophils/100 WBC (Bld) 68.4 % [facility] Platelet mean volume (Bld) [Entitic vol] 8.8 fL 7 - 12 fL [facility] Platelets (Bld) [#/Vol] 79 10*3/uL Low P [facility] RBC (Bld) [#/Vol] 4.22 10*6/uL [facility] WBC corrected for nucl RBC Auto (Bld) [#/Vol] 6.1 [facility] PROTIME AND INRon 06-16-2023 INR Coag (PPP) [Relative time] 1.3 {INR} High 0.8-1.1 [facility] Comment on above: Performed By: #### C LUIS BARAHONA, PINR ####[facility] ([id number])[address], [address] [place] [address] PT Coag (PPP) [Time] 14.9 s High 9.8-13.2 [facility] Comment on above: Performed By: #### C LUIS BARAHONA, PINR ####[facility] ([id number])[address], [address] [place] [address] Protime & INRon 06-16-2023 INR Coag (PPP) [Relative time] 1.3 {INR} High [facility] Interpretation and review of laboratory results Abnormal [facility] PT Coag (PPP) [Time] 14.9 s High [facility] BASIC METABOLIC PANLon 06-14 Anion gap [Moles/Vol] 10 mmol/L Normal 5-15 [facility] Comment on above: Performed By: #### P INR, CBCA, BMP ####[facility] ([id number])[address], [address], [place] [address] Calcium [Mass/Vol] 8.4 mg/dL Low 8.5-10.5 [facility] Comment on above: Performed By: #### P INR, CBCA, BMP ####[facility] ([id number])[address], [address] [place] [address] Chloride [Moles/Vol] 101 mmol/L Normal 98-109 [facility] Comment on above: Performed By: #### P INR, CBCA, BMP ####[facility] ([id number])[address], [address] [place] [address], [place] [address] CO2 [Moles/Vol] 25 mmol/L Normal 22-32 [facility] Comment on above: Performed By: #### P INR, CBCA, BMP ####[facility] ([id number])[address] [facility] [address] [place] [address], [place] [address] Creatinine [Mass/Vol] 0.43 mg/dL Normal 0.40-1.00 [facility] Comment on above: Result Comment: METH OD TRACEABLE TO IDMS STANDARD Performed By: #### P INR, CBCA, BMP ####[facility] ([id number])[address] [address] [place] [address], [place] [address] eGFR (CKD-EPI) NON-RACE DEPENDENT >90 Normal >59 [facility] Comment on above: Result Comment: Repo rted eGFR is based on theCKD-EPI 2020 equation that doesnot use a race coefficient. Performed By: #### P INR, CBCA, BMP ####[facility] ([id number])[address], [address] [place] [address], [place] [address] Glucose [Mass/Vol] 99 mg/dL Normal 65-99 [facility] Comment on above: Performed By: #### P INR, CBCA, BMP ####[facility] ([id number])[address], [address] [place] [address] Potassium [Moles/Vol] 3.7 mmol/L Normal 3.5-5.0 [facility] Comment on above: Performed By: #### P INR, CBCA, BMP ####[facility] ([id number])[address], [address] [place] [address] Sodium [Moles/Vol] 136 mmol/L Normal 134-146 [facility] Comment on above: Performed By: #### P INR, CBCA, BMP ####[facility] ([id number])[address], [address] [place] [address] Urea nitrogen [Mass/Vol] 5 mg/dL Normal 5-27 [facility] Comment on above: Performed By: #### P INR, CBCA, BMP ####[facility] ([id number])[address] [address] [place] [address] Basic Metabolic Panelon 03-0 Anion gap [Moles/Vol] 10 mmol/L 5 - 15 mmol/L [facility] Calcium [Mass/Vol] 8.4 mg/dL Low 8.5 - 10. 5 mg/dL [facility] Chloride [Moles/Vol] 101 mmol/L 98 - 10 9 mmol/L [facility] CO2 [Moles/Vol] 25 mmol/L 22 - 32 mmol/L [facility] Creatinine [Mass/Vol] 0.43 mg/dL 0.40 - 1.00 mg/dL [facility] Comment on above: METHOD TRACEABLE TO IDOH STANDARD eGFR (CKD-EPI)non-race dependent - PINF [facility] Comment on above: Reported eGFR is based on the CKD-EPI 2020 equation that does not use a race coefficient. Glucose [Mass/Vol] 99 mg/dL 65 - 99 mg/dL [facility] Interpretation and review of laboratory results Abnormal [facility] Potassium [Moles/Vol] 3.7 mmol/L 3.5 - 5.0 mmol/L [facility] Sodium [Moles/Vol] 136 mmol/L 134 - 146 mmol/L [facility] Urea nitrogen [Mass/Vol] 5 mg/dL 5 - 27 mg/dL [facility] CBC AND AUTO DIFFon 06-15-19 24 ABSOLUTE BASOPHIL 0.0 X10E9/L Normal 0.0-0.2 [facility] Comment on above: Performed By: #### P INR, CBCA, BMP ####[facility] ([id number])[address], [address] [place] [address] ABSOLUTE NEUTROPHIL 5.1 X10E9/L Normal 1.5-6.6 [facility] Comment on above: Performed By: #### P INR, CBCA, BMP ####[facility] ([id number])[address] [address] [place] [address] Basophils/100 WBC (Bld) 0.2 % Normal [facility] Comment on above: Performed By: #### P INR, CBCA, BMP ####[facility] ([id number])[address] [address] [place] [address] Eosinophils (Bld) [#/Vol] 0.2 10*3/uL Normal 0.0-0.4 [facility] Comment on above: Performed By: #### P INR, CBCA, BMP ####[facility] ([id number])[address] [address] Eosinophils/100 WBC (Bld) 3.1 % Normal [facility] Comment on above: Performed By: #### P INR, CBCA, BMP ####[facility] ([id number])[address] [address], [place] [address] Erythrocyte distribution width (RBC) [Ratio] 15.8 % High 11.5-15.0 [facility] Comment on above: Performed By: #### P INR, CBCA, BMP ####[facility] ([id number])[address] [address], [place] [address] Hematocrit (Bld) [Volume fraction] 32.8 % Low 35-47 [facility] Comment on above: Performed By: #### P INR, CBCA, BMP ####[facility] ([id number])[address] [address], [place] [address] Hemoglobin (Bld) [Mass/Vol] 11.1 g/dL Low 11.7-15.5 [facility] Comment on above: Performed By: #### P INR, CBCA, BMP ####[facility] ([id number])[address] [address] [place] [address] Lymphocytes (Bld) [#/Vol] 0.7 10*3/uL Low 1.0-3.5 [facility] Comment on above: Performed By: #### P INR, CBCA, BMP ####[facility] ([id number])[address] [address] Lymphocytes/100 WBC (Bld) 11.2 % Normal [facility] Comment on above: Performed By: #### P INR, CBCA, BMP ####[facility] ([id number])[address] [address] [place] [address] MCH (RBC) [Entitic mass] 28.3 pg Normal 27-34 [facility] Comment on above: Performed By: #### P INR, CBCA, BMP ####[facility] ([id number])[address] [address] [address] MCHC (RBC) [Mass/Vol] 33.9 g/dL Normal 32-36 [facility] Comment on above: Performed By: #### P INR, CBCA, BMP ####[facility] ([id number])[address], [address] [place] [address] MCV (RBC) [Entitic vol] 83 fL Normal 80-100 [facility] Comment on above: Performed By: #### P INR, CBCA, BMP ####[facility] ([id number])[address] [address] [place] [address] Monocytes (Bld) [#/Vol] 0.5 10*3/uL Normal 0-0.9 [facility] Comment on above: Performed By: #### P INR, CBCA, BMP ####[facility] ([id number])[address] [address] [place] [address] Monocytes/100 WBC (Bld) 7.6 % Normal [facility] Comment on above: Performed By: #### P INR, CBCA, BMP ####[facility] ([id number])[address] [address] Neutrophils/100 WBC (Bld) 77.9 % Normal [facility] Comment on above: Performed By: #### P INR, CBCA, BMP ####[facility] ([id number])[address] [address] [place] [address] Platelet mean volume (Bld) [Entitic vol] 8.7 fL Normal 7-12 [facility] Comment on above: Performed By: #### P INR, CBCA, BMP ####[facility] ([id number])[address] [address] [place] [address], [place] [address] Platelets (Bld) [#/Vol] 73 10*3/uL Low 150-450 [facility] Comment on above: Performed By: #### P INR, CBCA, BMP ####[facility] ([id number])[address], [address] [place] [address] RBC COUNT 3.94 X10E12/L Normal 3.80-5.20 [facility] Comment on above: Performed By: #### P INR, CBCA, BMP ####[facility] ([id number])[address], [address] [place] [address] WBC (Bld) [#/Vol] 6.6 10*3/uL Normal 4.0-11.0 [facility] Comment on above: Performed By: #### P INR, CBCA, BMP ####[facility] ([id number])[address], [address] [address] CBC auto differentialon 03-0 Basophils (Bld) [#/Vol] 0.0 10*3/uL [facility] Basophils/100 WBC (Bld) 0.2 % [facility] Eosinophils (Bld) [#/Vol] 0.2 10*3/uL [facility] Eosinophils/100 WBC (Bld) 3.1 % [facility] Erythrocyte distribution width (RBC) [Ratio] 15.8 % High 11.5 - 15.0 % [facility] Hematocrit (Bld) [Volume fraction] 32.8 % Low 35 - 47 % [facility] Hemoglobin (Bld) [Mass/Vol] 11.1 g/dL Low 11.7 - 15.5 g/dL [facility] Interpretation and review of laboratory results Abnormal [facility] Lymphocytes (Bld) [#/Vol] 0.7 10*3/uL Low [facility] Lymphocytes/100 WBC (Bld) 11.2 % [facility] MCH (RBC) [Entitic mass] 28.3 pg 27 - 34 pg [facility] MCHC (RBC) [Mass/Vol] 33.9 g/dL 32 - 3 6 g/dL [facility] MCV (RBC) [Entitic vol] 83 fL 80 - 100 fL [facility] Monocytes (Bld) [#/Vol] 0.5 10*3/uL [facility] Monocytes/100 WBC (Bld) 7.6 % P [facility] Neutrophils (Bld) [#/Vol] 5.1 10*3/uL [facility] Neutrophils/100 WBC (Bld) 77.9 % [facility] Platelet mean volume (Bld) [Entitic vol] 8.7 fL 7 - 12 fL [facility] Platelets (Bld) [#/Vol] 73 10*3/uL Low P [facility] RBC (Bld) [#/Vol] 3.94 10*6/uL [facility] WBC corrected for nucl RBC Auto (Bld) [#/Vol] 6.6 [facility] FL SWALLOW MOTILITY FUNCTION on 06-15-2023 FL SWALLOW MOTILITY FUNCTION Normal [facility] Glucose Glucometer (BldC) [M ass/Vol]on 06-15-2023 Glucose [Mass/Vol] 104 mg/dL High 65-99 [facility] Glucose [Mass/Vol] 104 mg/dL High 65 - 99 mg/dL [facility] Interpretation and review of laboratory results Abnormal [facility] Glucose [Mass/Vol] 65 mg/dL Normal 65-99 [facility] Glucose [Mass/Vol] 65 mg/dL 65 - 99 mg/dL [facility] HGB AND HCTon 06-15-2023 Hematocrit (Bld) [Volume fraction] 37.2 % Normal 35-47 [facility] Comment on above: Performed By: #### H H ####[facility] ([id number])[address], [place] [address] Hemoglobin (Bld) [Mass/Vol] 12.6 g/dL Normal 11.7-15.5 [facility] Comment on above: Performed By: #### H H ####[facility] ([id number])[address], [address], [place] [address] Hematocrit (Bld) [Volume fraction] 34.7 % Low 35-47 [facility] Comment on above: Performed By: #### H H ####[facility] ([id number])[address], [address] [place] [address] Hemoglobin (Bld) [Mass/Vol] 11.9 g/dL Normal 11.7-15.5 [facility] Comment on above: Performed By: #### H H ####[facility] ([id number])[address] [address] [place] [address] Hemoglobin and hematocrit, b [facility] 06-15-2023 Hematocrit (Bld) [Volume fraction] 37.2 % 35 - 47 % [facility] Hemoglobin (Bld) [Mass/Vol] 12.6 g/dL 11.7 - 15.5 g/dL [facility] Hematocrit (Bld) [Volume fraction] 34.7 % Low 35 - 47 % [facility] Hemoglobin (Bld) [Mass/Vol] 11.9 g/dL 11.7 - 15.5 g/dL [facility] Interpretation and review of laboratory results Abnormal [facility] POTASSIUMon 06-15-2023 Potassium [Moles/Vol] 3.8 mmol/L Normal 3.5-5.0 [facility] Comment on above: Performed By: #### 2 823-3 ####[facility] ([id number])[address] [address] [place] [address] Potassium [Moles/Vol] 3.5 mmol/L Normal 3.5-5.0 [facility] Comment on above: Performed By: #### 2 823-3 ####[facility] ([id number])[address] [address] [place] [address] Potassium [Moles/Vol] 3.8 mmol/L Normal 3.5-5.0 [facility] Comment on above: Performed By: #### 2 823-3 ####[facility] ([id number])[address], [address], [place] [address] PROTIME AND INRon 06-15-2023 INR Coag (PPP) [Relative time] 1.2 {INR} High 0.8-1.1 [facility] Comment on above: Performed By: #### P INR, CBCA, BMP ####[facility] ([id number])[address], [address] [place] [address] PT Coag (PPP) [Time] 14.2 s High 9.8-13.2 [facility] Comment on above: Performed By: #### P INR, CBCA, BMP ####[facility] ([id number])[address], [address] [place] [address] Potassiumon 06-15-2023 Potassium [Moles/Vol] 3.8 mmol/L 3.5 - 5.0 mmol/L [facility] Potassium [Moles/Vol] 3.5 mmol/L 3.5 - 5.0 mmol/L [facility] Potassium [Moles/Vol] 3.8 mmol/L 3.5 - 5.0 mmol/L [facility] Potassium [Moles/Vol]on [facility] Protime & INRon 06-15-2023 INR Coag (PPP) [Relative time] 1.2 {INR} High [facility] Interpretation and review of laboratory results Abnormal [facility] PT Coag (PPP) [Time] 14.2 s High [facility] RF videography Hypopharynx a nd Esophagus Viewson 06-15-2023 STUDY: Video fluoroscopic swallow study. CLINICAL HISTORY: Oropharyngeal dysphagia COMPARISON: None. FINDINGS: Lateral videofluoroscopy performed during administration of various media by speech therapy. Fluoroscopic time was 1 minute 21 seconds. Fluoroscopic radiation dose reference air kerma: 1.13 mGy. 9 cine runs captured electronically without additional radiation exposure. Zero fluoroscopic spot images obtained. The patient was administered multiple consistencies of solids as well as thin and thick barium. No aspiration or penetration is seen. IMPRESSION: * No aspiration or penetration. Correlate with dedicated speech pathology report for additional details and recommendations. Approved by Resident Mariano Parmar MD on 06/15/2023 10:17 AM Krysten Rodriges MD have personally reviewed the image(s) and agree with and/or edited the report Finalized by Krysten Haynes MD on 06/15/2023 10:30 AM [facility] Krysten Haynes MD - 06/15/2023 STUDY: Video fluoroscopic swallow study. CLINICAL HISTORY: Oropharyngeal dysphagia COMPARISON: None. FINDINGS: Lateral videofluoroscopy performed during administration of various media by speech therapy. Fluoroscopic time was 1 minute 21 seconds. Fluoroscopic radiation dose reference air kerma: 1.13 mGy. 9 cine runs captured electronically without additional radiation exposure. Zero fluoroscopic spot images obtained. The patient was administered multiple consistencies of solids as well as thin and thick barium. No aspiration or penetration is seen. IMPRESSION: * No aspiration or penetration. Correlate with dedicated speech pathology report for additional details and recommendations. Approved by Resident Mariano Parmar MD on 06/15/2023 10:17 AM Krysten Rodriges MD have personally reviewed the image(s) and agree with and/or edited the report Finalized by Krysten Haynes MD on 06/15/2023 10:30 AM [facility] Study observation (narrative) [employer] RF videography Hypopharynx a nd Esophagus ViewsOrdered By: Krysten Haynes on 06-15-2023 [facility] Work Phone: BASIC METABOLIC PANLon 06-13 Anion gap [Moles/Vol] 12 mmol/L Normal 5-15 [facility] Comment on above: Performed By: #### P INR, CBCA, BMP ####[facility] ([id number])[address], [address] [place] [address] Calcium [Mass/Vol] 8.1 mg/dL Low 8.5-10.5 [facility] Comment on above: Performed By: #### P INR, CBCA, BMP ####[facility] ([id number])[address] [address] [place] [address] Chloride [Moles/Vol] 106 mmol/L Normal 98-109 [facility] Comment on above: Performed By: #### P INR, CBCA, BMP ####[facility] ([id number])[address] [address] [place] [address] CO2 [Moles/Vol] 22 mmol/L Normal 22-32 [facility] Comment on above: Performed By: #### P INR, CBCA, BMP ####[facility] ([id number])[address] [address] [place] [address] Creatinine [Mass/Vol] 0.33 mg/dL Low 0.40-1.00 [facility] Comment on above: Result Comment: METH OD TRACEABLE TO IDMS STANDARD Performed By: #### P INR, CBCA, BMP ####[facility] ([id number])[address] [address] [place] [address] eGFR (CKD-EPI) NON-RACE DEPENDENT >90 Normal >59 [facility] Comment on above: Result Comment: Repo rted eGFR is based on theCKD-EPI 2020 equation that doesnot use a race coefficient. Performed By: #### P INR, CBCA, BMP ####[facility] ([id number])[address] [address] [place] [address], [place] [address] Glucose [Mass/Vol] 62 mg/dL Low 65-99 [facility] Comment on above: Performed By: #### P INR, CBCA, BMP ####[facility] ([id number])[address] [address] [place] [address], [place] [address] Potassium [Moles/Vol] 3.6 mmol/L Normal 3.5-5.0 [facility] Comment on above: Performed By: #### P INR, CBCA, BMP ####[facility] ([id number])[address], [address] [place] [address] Sodium [Moles/Vol] 140 mmol/L Normal 134-146 [facility] Comment on above: Performed By: #### P INR, CBCA, BMP ####[facility] ([id number])[address], [address] [place] [address] Urea nitrogen [Mass/Vol] 8 mg/dL Normal 5-27 [facility] Comment on above: Performed By: #### P INR, CBCA, BMP ####[facility] ([id number])[address], [address] [place] [address] Basic Metabolic Panelon - Anion gap [Moles/Vol] 12 mmol/L 5 - 15 mmol/L [facility] Calcium [Mass/Vol] 8.1 mg/dL Low 8.5 - 10. 5 mg/dL [facility] Chloride [Moles/Vol] 106 mmol/L 98 - 10 9 mmol/L [facility] CO2 [Moles/Vol] 22 mmol/L 22 - 32 mmol/L [facility] Creatinine [Mass/Vol] 0.33 mg/dL Low 0.40 - 1.00 mg/dL [facility] Comment on above: METHOD TRACEABLE TO IDOH STANDARD eGFR (CKD-EPI)non-race dependent - PINF [facility] Comment on above: Reported eGFR is based on the CKD-EPI 2020 equation that does not use a race coefficient. Glucose [Mass/Vol] 62 mg/dL Low 65 - 99 mg/dL [facility] Interpretation and review of laboratory results Abnormal [facility] Potassium [Moles/Vol] 3.6 mmol/L 3.5 - 5.0 mmol/L [facility] Sodium [Moles/Vol] 140 mmol/L 134 - 146 mmol/L [facility] Urea nitrogen [Mass/Vol] 8 mg/dL 5 - 27 mg/dL [facility] CBC AND AUTO DIFFon 03-08-20 24 ABSOLUTE BASOPHIL 0.0 X10E9/L Normal 0.0-0.2 [facility] Comment on above: Performed By: #### P INR, CBCA, BMP ####[facility] ([id number])[address], [address] [address] ABSOLUTE NEUTROPHIL 6.2 X10E9/L Normal 1.5-6.6 [facility] Comment on above: Performed By: #### P INR, CBCA, BMP ####[facility] ([id number])[address], [place] [address] Basophils/100 WBC (Bld) 0.3 % Normal [facility] Comment on above: Performed By: #### P INR, CBCA, BMP ####[facility] ([id number])[address] [address], [place] [address] Eosinophils (Bld) [#/Vol] 0.1 10*3/uL Normal 0.0-0.4 [facility] Comment on above: Performed By: #### P INR, CBCA, BMP ####[facility] ([id number])[address] [address] [place] [address] Eosinophils/100 WBC (Bld) 1.9 % Normal [facility] Comment on above: Performed By: #### P INR, CBCA, BMP ####[facility] ([id number])[address] [address] [place] [address] Erythrocyte distribution width (RBC) [Ratio] 16.1 % High 11.5-15.0 [facility] Comment on above: Performed By: #### P INR, CBCA, BMP ####[facility] ([id number])[address] [address] [place] [address] Hematocrit (Bld) [Volume fraction] 33.5 % Low 35-47 [facility] Comment on above: Performed By: #### P INR, CBCA, BMP ####[facility] ([id number])[address] [address] [place] [address] Hemoglobin (Bld) [Mass/Vol] 11.2 g/dL Low 11.7-15.5 [facility] Comment on above: Performed By: #### P INR, CBCA, BMP ####[facility] ([id number])[address], [address] [place] [address] Lymphocytes (Bld) [#/Vol] 0.9 10*3/uL Low 1.0-3.5 [facility] Comment on above: Performed By: #### P INR, CBCA, BMP ####[facility] ([id number])[address] [address] Lymphocytes/100 WBC (Bld) 11.3 % Normal [facility] Comment on above: Performed By: #### P INR, CBCA, BMP ####[facility] ([id number])[address] [address] [place] [address] MCH (RBC) [Entitic mass] 28.2 pg Normal 27-34 [facility] Comment on above: Performed By: #### P INR, CBCA, BMP ####[facility] ([id number])[address] [address] [place] [address] MCHC (RBC) [Mass/Vol] 33.5 g/dL Normal 32-36 [facility] Comment on above: Performed By: #### P INR, CBCA, BMP ####[facility] ([id number])[address] [address] MCV (RBC) [Entitic vol] 84 fL Normal 80-100 [facility] Comment on above: Performed By: #### P INR, CBCA, BMP ####[facility] ([id number])[address] [place] [address] Monocytes (Bld) [#/Vol] 0.5 10*3/uL Normal 0-0.9 [facility] Comment on above: Performed By: #### P INR, CBCA, BMP ####[facility] ([id number])[address] [place] [address] Monocytes/100 WBC (Bld) 6.4 % Normal [facility] Comment on above: Performed By: #### P INR, CBCA, BMP ####[facility] ([id number])[address], [place] [address] Neutrophils/100 WBC (Bld) 80.1 % Normal [facility] Comment on above: Performed By: #### P INR, CBCA, BMP ####[facility] ([id number])[address], [place] [address] Platelet mean volume (Bld) [Entitic vol] 8.3 fL Normal 7-12 [facility] Comment on above: Performed By: #### P INR, CBCA, BMP ####[facility] ([id number])[address] [address] [place] [address] Platelets (Bld) [#/Vol] 62 10*3/uL Low 150-450 [facility] Comment on above: Performed By: #### P INR, CBCA, BMP ####[facility] ([id number])[address] [address] [place] [address] RBC COUNT 3.98 X10E12/L Normal 3.80-5.20 [facility] Comment on above: Performed By: #### P INR, CBCA, BMP ####[facility] ([id number])[address] [address] [place] [address] WBC (Bld) [#/Vol] 7.8 10*3/uL Normal 4.0-11.0 [facility] Comment on above: Performed By: #### P INR, CBCA, BMP ####[facility] ([id number])[address] [facility], [address], [place] [address] CBC auto differentialon 03-0 Basophils (Bld) [#/Vol] 0.0 10*3/uL [facility] Basophils/100 WBC (Bld) 0.3 % P [facility] Eosinophils (Bld) [#/Vol] 0.1 10*3/uL [facility] Eosinophils/100 WBC (Bld) 1.9 % [facility] Erythrocyte distribution width (RBC) [Ratio] 16.1 % High 11.5 - 15.0 % [facility] Hematocrit (Bld) [Volume fraction] 33.5 % Low 35 - 47 % [facility] Hemoglobin (Bld) [Mass/Vol] 11.2 g/dL Low 11.7 - 15.5 g/dL [facility] Interpretation and review of laboratory results Abnormal [facility] Lymphocytes (Bld) [#/Vol] 0.9 10*3/uL Low [facility] Lymphocytes/100 WBC (Bld) 11.3 % [facility] MCH (RBC) [Entitic mass] 28.2 pg 27 - 34 pg [facility] MCHC (RBC) [Mass/Vol] 33.5 g/dL 32 - 3 6 g/dL [facility] MCV (RBC) [Entitic vol] 84 fL 80 - 100 fL [facility] Monocytes (Bld) [#/Vol] 0.5 10*3/uL [facility] Monocytes/100 WBC (Bld) 6.4 % [facility] Neutrophils (Bld) [#/Vol] 6.2 10*3/uL [facility] Neutrophils/100 WBC (Bld) 80.1 % [facility] Platelet mean volume (Bld) [Entitic vol] 8.3 fL 7 - 12 fL [facility] Platelets (Bld) [#/Vol] 62 10*3/uL Low [facility] RBC (Bld) [#/Vol] 3.98 10*6/uL [facility] WBC corrected for nucl RBC Auto (Bld) [#/Vol] 7.8 [facility] Colonoscopyon 06-14-2023 Олег Long M D - 06/14/[address] [facility] Patient Name: Ellen Chan Procedure Date: 06/14/2023 2:08 PM CSN: [id number] Date of : 1945 Admit Type: Inpatient Age: 78 Room: [place] [address] Gender: Female Note Status: Finalized Attending MD: ОЛЕГ LONG MD, Procedure: Colonoscopy Indications: Hematochezia Providers: ОЛЕГ LONG MD Referring MD: Dulce Castillo Requesting Provider: Medicines: Monitored Anesthesia Care Complications: No immediate complications. Procedure: After I obtained informed consent, the scope was passed under direct vision. Throughout the procedure, the patient's blood pressure, pulse, and oxygen saturations were monitored continuously. The was introduced through the anus and advanced to the terminal ileum, with identification of the appendiceal orifice and IC valve. The colonoscopy was performed without difficulty. The patient tolerated the procedure well. The quality of the bowel preparation was fair. Findings: Two sessile polyps were found in the ascending colon. The polyps were 4 mm in size. These polyps were removed with a cold snare. Resection and retrieval were complete. A 5 mm polyp was found in the transverse colon. The polyp was sessile. The polyp was removed with a cold snare. Resection and retrieval were complete. Nonbleeding severely ulcerated mucosa with diffuse surrounding erythema, friability were present in the rectum and in the recto-sigmoid colon. Biopsies were taken with a cold forceps for histology. - fair prep, small lesions can be missed during this exam Multiple diverticula were found in the sigmoid colon. Estimated Blood Loss: Estimated blood loss was minimal. Impression: - Preparation of the colon was fair. - Two 4 mm polyps in the ascending colon, removed with a cold snare. Resected and retrieved. - One 5 mm polyp in the transverse colon, removed with a cold snare. Resected and retrieved. - Mucosal ulceration with surrounding erythema at the rectum and the rectosigmoid junction. Biopsied rule out ischemic colitis. - Diverticulosis in the sigmoid colon. Recommendation: - Resume regular diet. - Await pathology results. - Antibiotics for 7 days - Laxatives, avoid constipation Procedure Code(s): --- Professional --- 30384, Colonoscopy, flexible; with removal of tumor(s), polyp(s), or other lesion(s) by snare technique 61846, 59, Colonoscopy, flexible; with biopsy, single or multiple Diagnosis Code(s): --- Professional --- D12.2, Benign neoplasm of ascending colon D12.3, Benign neoplasm of transverse colon (hepatic flexure or splenic flexure) K63.3, Ulcer of intestine K92.1, Melena (includes Hematochezia) CPT copyright 2021 [employer] [place] [employer]. All rights reserved. The codes documented in this report are preliminary and upon loan secretary review may be revised to meet current compliance requirements. Dr. Олег LONG MD 06/14/2023 3:00:48 PM This report has been signed electronically. Number of Addenda: 0 Note Initiated On: 06/14/2023 2:08 PM [facility] Colonoscopy studyon 06-14-19 This order has been auto-finalized for image and report archival in PACs. *For full report details, please reach out to your physician. This image is visible to you in MyChart.* [facility] Glucose Glucometer (BldC) [M ass/Vol]on 06-14-2023 Glucose [Mass/Vol] 97 mg/dL Normal 65-99 [facility] Glucose [Mass/Vol] 97 mg/dL 65 - 99 mg/dL [facility] Glucose [Mass/Vol] 70 mg/dL Normal 65-99 [facility] Glucose [Mass/Vol] 70 mg/dL 65 - 99 mg/dL [facility] Glucose [Mass/Vol] 86 mg/dL Normal 65-99 [facility] Glucose [Mass/Vol] 86 mg/dL 65 - 99 mg/dL [facility] Glucose [Mass/Vol] 68 mg/dL Normal 65-99 [facility] Glucose [Mass/Vol] 68 mg/dL 65 - 99 mg/dL [facility] HGB AND HCTon 06-14-2023 Hematocrit (Bld) [Volume fraction] 32.7 % Low 35-47 [facility] Comment on above: Performed By: #### H H ####[facility] ([id number])[address], [address] [place] [address] Hemoglobin (Bld) [Mass/Vol] 11.2 g/dL Low 11.7-15.5 [facility] Comment on above: Performed By: #### H H ####[facility] ([id number])[address], [address] [place] [address] Hematocrit (Bld) [Volume fraction] 32.3 % Low 35-47 [facility] Comment on above: Performed By: #### H H, 2823-3 ####[facility] ([id number])[address], [address] [place] [address] Hemoglobin (Bld) [Mass/Vol] 11.0 g/dL Low 11.7-15.5 [facility] Comment on above: Performed By: #### H H, 2823-3 ####[facility] ([id number])[address], [address] [place] [address] Hemoglobin and hematocrit, b loodon 06-14-2023 Hematocrit (Bld) [Volume fraction] 32.7 % Low 35 - 47 % [facility] Hemoglobin (Bld) [Mass/Vol] 11.2 g/dL Low 11.7 - 15.5 g/dL [facility] Interpretation and review of laboratory results Abnormal [facility] Hematocrit (Bld) [Volume fraction] 32.3 % Low 35 - 47 % [facility] Hemoglobin (Bld) [Mass/Vol] 11.0 g/dL Low 11.7 - 15.5 g/dL [facility] Interpretation and review of laboratory results [facility]normal [facility] POT[facility] 06-14-2023 Potassium [Moles/Vol] 3.5 mmol/L Normal 3.5-5.0 [facility] Comment on above: Performed By: #### H H, 2823-3 ####[facility] ([id number])[address], [place] [address] Potassium [Moles/Vol] 3.8 mmol/L Normal 3.5-5.0 [facility] Comment on above: Performed By: #### 2 823-3 ####[facility] ([id number])[address], [place] [address] PROTIME AND INRon 06-14-2023 INR Coag (PPP) [Relative time] 1.2 {INR} High 0.8-1.1 [facility] Comment on above: Performed By: #### P INR, CBCA, BMP ####[facility] ([id number])[address] [place] [address] PT Coag (PPP) [Time] 13.7 s High 9.8-13.2 [facility] Comment on above: Performed By: #### P INR, CBCA, BMP ####[facility] ([id number])[address], [place] [address] Potassiumon 06-14-2023 Potassium [Moles/Vol] 3.5 mmol/L 3.5 - 5.0 mmol/L [facility] Potassium [Moles/Vol] 3.8 mmol/L 3.5 - 5.0 mmol/L [facility] Potassium [Moles/Vol]on [facility] Protime & INRon 06-14-2023 INR Coag (PPP) [Relative time] 1.2 {INR} High [facility] Interpretation and review of laboratory results Abnormal [facility] PT Coag (PPP) [Time] 13.7 s High [facility] Surgical Pathologyon 024 Surgical Pathology Normal [facility] Comment on above: Result Comment: [facility] [address] [place] [address] Surgical Pathology ConsultationPatient Name:ELLEN CHAN:1945 (Age: 78)Gender:FTaken:4Reported:4Physician(s):Олег Long MD ( )Copy To: Rec. #:[id number]: #[id number] Pathologic Diagnosis1. Ascending colon, polypectomy: Tubular adenomas.2. Transverse colon, polypectomy: Tubular adenoma.3. Rectum, biopsy: Ischemic colitis present. Report Electronically Signed Outrg/4Rbenedicto Barragan MDInterpretation performed at [facility], [address] [place] [address], License number: [id number].Clinical HistoryAcute lower GI bleeding.3. R/O ischemic colitis.Gross Description1. Received in formalin labeled, ROCIO, ascending colon polyp x 2 are 2 terrell delicate soft tissue bits, 0.4 and 0.5 cm in greatest dimension. The specimens are filtered and submitted in a single cassette. (1, ns, [id number], m7) TB2. Received in formalin labeled, ROCIO, transverse colon polyp is a terrell delicate, focally erythematous soft tissue bit, 0.5 cm in greatest dimension. The specimen is filtered and submitted in a single cassette. (1, ns, [id number], m7) TB3. Received in formalin labeled, ROCIO, rectal biopsy are 4 terrell delicate to friable, focally erythematous soft tissue bits, 0.2-0.4 cm in greatest dimension. The specimens are filtered and submitted in a single cassette. (1, ns, [id number], m7) TBtgb/06/14/2023EAKSpecimen(s) Received1: Ascending colon polyps x22: Transverse colon polyp3: Rectal biopsyFee Codes(s):1; 230216; [id number]; 61116 US.doppler Extremity arterie s - bilateral for physiologic artery studyon 06-14-2023 Right: Essentially normal PVR waveform contour at the ankle level. PT NATASHA is 1.15; DP NATASHA is 1.17. Multiphasic with diastolic flow reversal common femoral , popliteal, PT and DP , CW Doppler waveforms. Left: Essentially normal PVR waveform contour at the ankle level. PT NATASHA is 1.08; DP NATASHA is 1.12. Multiphasic with diastolic flow reversal common femoral , popliteal, PT and DP , CW Doppler waveforms. Conclusions: BILATERAL: Normal lower extremity arterial physiological examination at rest. Recommendations: Any questions prior to finalization, please call the reading physician during normal business hours at the phone number beside their name. PM CARDIOVASCULAR Manoj Bell MD - 06/14/2023 Right: Essentially normal PVR waveform contour at the ankle level. PT NATASHA is 1.15; DP NATASHA is 1.17. Multiphasic with diastolic flow reversal common femoral , popliteal, PT and DP , CW Doppler waveforms. Left: Essentially normal PVR waveform contour at the ankle level. PT NATASHA is 1.08; DP NATASHA is 1.12. Multiphasic with diastolic flow reversal common femoral , popliteal, PT and DP , CW Doppler waveforms. Conclusions: BILATERAL: Normal lower extremity arterial physiological examination at rest. Recommendations: Any questions prior to finalization, please call the reading physician during normal business hours at the phone number beside their name. [facility] Study observation (narrative) Keep Me Certified US.doppler Extremity arterie s - bilateral for physiologic artery studyOrdered By: Manoj Bell on 06-14-2023 [facility] Work Phone: ABO Rh Repeaton 06-13-2023 ABO A [facility] Rh Nom (Bld) Positive [facility] NXE [facility] CBC AND AUTO DIFFon 06-13-19 24 ABSOLUTE BASOPHIL 0.0 X10E9/L Normal 0.0-0.2 [facility] Comment on above: Performed By: #### P INR, CBCA, CMP, 18635-9, 2777-1 ####[facility] ([id number])[address], [address] [place] [address] ABSOLUTE NEUTROPHIL 7.3 X10E9/L High 1.5-6.6 [facility] Comment on above: Performed By: #### P INR, CBCA, CMP, , 2776-04 ####[facility] ([id number])[address], [address], [place] [address] Basophils/100 WBC (Bld) 0.4 % Normal P [facility] Comment on above: Performed By: #### P INR, CBCA, CMP, , 2776-04 ####[facility] ([id number])[address] [address], [place] [address] Eosinophils (Bld) [#/Vol] 0.1 10*3/uL Normal 0.0-0.4 [facility] Comment on above: Performed By: #### P INR, CBCA, CMP, , 2776-04 ####[facility] ([id number])[address] [address], [place] [address] Eosinophils/100 WBC (Bld) 0.6 % Normal [facility] Comment on above: Performed By: #### P INR, CBCA, CMP, , 2776-04 ####[facility] ([id number])[address] [address], [place] [address] Erythrocyte distribution width (RBC) [Ratio] 16.5 % High 11.5-15.0 [facility] Comment on above: Performed By: #### P INR, CBCA, CMP, , 2776-04 ####[facility] ([id number])[address] [address] [place] [address] Hematocrit (Bld) [Volume fraction] 33.9 % Low 35-47 [facility] Comment on above: Performed By: #### P INR, CBCA, CMP, , 2776-04 ####[facility] ([id number])[address], [address], [place] [address] Hemoglobin (Bld) [Mass/Vol] 11.4 g/dL Low 11.7-15.5 [facility] Comment on above: Performed By: #### P INR, CBCA, CMP, , 2776-04 ####[facility] ([id number])[address], [address], [place] [address] Lymphocytes (Bld) [#/Vol] 0.8 10*3/uL Low 1.0-3.5 [facility] Comment on above: Performed By: #### P INR, CBCA, CMP, , 2776-04 ####[facility] ([id number])[address], [address] [place] [address] Lymphocytes/100 WBC (Bld) 9.2 % Normal [facility] Comment on above: Performed By: #### P INR, CBCA, CMP, , 2776-04 ####[facility] ([id number])[address], [address] [place] [address] MCH (RBC) [Entitic mass] 28.6 pg Normal 27-34 [facility] Comment on above: Performed By: #### P INR, CBCA, CMP, , 2776-04 ####[facility] ([id number])[address], [address], [place] [address] MCHC (RBC) [Mass/Vol] 33.6 g/dL Normal 32-36 [facility] Comment on above: Performed By: #### P INR, CBCA, CMP, , 2776-04 ####[facility] ([id number])[address], [address], [place] [address] MCV (RBC) [Entitic vol] 85 fL Normal 80-100 [facility] Comment on above: Performed By: #### P INR, CBCA, CMP, , 2776-04 ####[facility] ([id number])[address], [address], [place] [address] Monocytes (Bld) [#/Vol] 0.6 10*3/uL Normal 0-0.9 [facility] Comment on above: Performed By: #### P INR, CBCA, CMP, , 2776-04 ####[facility] ([id number])[address], [place] [address] Monocytes/100 WBC (Bld) 6.8 % Normal [facility] Comment on above: Performed By: #### P INR, CBCA, CMP, , 2776-04 ####[facility] ([id number])[address] [address] [place] [address] Neutrophils/100 WBC (Bld) 83.0 % Normal [facility] Comment on above: Performed By: #### P INR, CBCA, CMP, , 2776-04 ####[facility] ([id number])[address], [address] [address] Platelet mean volume (Bld) [Entitic vol] 8.5 fL Normal 7-12 [facility] Comment on above: Performed By: #### P INR, CBCA, CMP, , 2776-04 ####[facility] ([id number])[address], [address] [place] [address] Platelets (Bld) [#/Vol] 66 10*3/uL Low 150-450 [facility] Comment on above: Performed By: #### P INR, CBCA, CMP, , 2776-04 ####[facility] ([id number])[address], [address], [place] [address] RBC COUNT 3.98 X10E12/L Normal 3.80-5.20 [facility] Comment on above: Performed By: #### P INR, CBCA, CMP, , 1 ####[facility] ([id number])[address], [address] [place] [address] WBC (Bld) [#/Vol] 8.8 10*3/uL Normal 4.0-11.0 [facility] Comment on above: Performed By: #### P INR, CBCA, CMP, , 2776-04 ####[facility] ([id number])[address], [address] [address] CBC auto differentialon 030 Basophils (Bld) [#/Vol] 0.0 10*3/uL [facility] Basophils/100 WBC (Bld) 0.4 % P [facility] Eosinophils (Bld) [#/Vol] 0.1 10*3/uL [facility] Eosinophils/100 WBC (Bld) 0.6 % [facility] Erythrocyte distribution width (RBC) [Ratio] 16.5 % High 11.5 - 15.0 % [facility] Hematocrit (Bld) [Volume fraction] 33.9 % Low 35 - 47 % [facility] Hemoglobin (Bld) [Mass/Vol] 11.4 g/dL Low 11.7 - 15.5 g/dL [facility] Interpretation and review of laboratory results Abnormal [facility] Lymphocytes (Bld) [#/Vol] 0.8 10*3/uL Low [facility] Lymphocytes/100 WBC (Bld) 9.2 % [facility] MCH (RBC) [Entitic mass] 28.6 pg 27 - 34 pg [facility] MCHC (RBC) [Mass/Vol] 33.6 g/dL 32 - 3 6 g/dL [facility] MCV (RBC) [Entitic vol] 85 fL 80 - 100 fL [facility] Monocytes (Bld) [#/Vol] 0.6 10*3/uL [facility] Monocytes/100 WBC (Bld) 6.8 % P [facility] Neutrophils (Bld) [#/Vol] 7.3 10*3/uL High [facility] Neutrophils/100 WBC (Bld) 83.0 % [facility] Platelet mean volume (Bld) [Entitic vol] 8.5 fL 7 - 12 fL [facility] Platelets (Bld) [#/Vol] 66 10*3/uL Low P [facility] RBC (Bld) [#/Vol] 3.98 10*6/uL [facility] WBC corrected for nucl RBC Auto (Bld) [#/Vol] 8.8 [facility] COMPREHENSIVE METABOLIC PANE Dennis 06-13-2023 Albumin [Mass/Vol] 3.1 g/dL Low 3.2-5.3 [facility] Comment on above: Performed By: #### P INR, CBCA, CMP, 95003-9, 2776- ####[facility] ([id number])[address], [place] [address] ALP [Catalytic activity/Vol] 45 U/L Normal 39-130 [facility] Comment on above: Performed By: #### P INR, CBCA, CMP, , 2776- ####[facility] ([id number])[address], [place] [address] ALT [Catalytic activity/Vol] 6 U/L Normal 0-31 [facility] Comment on above: Performed By: #### P INR, CBCA, CMP, , 2776- ####[facility] ([id number])[address], [address] [place] [address] Anion gap [Moles/Vol] 9 mmol/L Normal 5-15 [facility] Comment on above: Performed By: #### P INR, CBCA, CMP, , 2776-04 ####[facility] ([id number])[address], [place] [address] AST [Catalytic activity/Vol] 11 U/L Normal 0-41 [facility] Comment on above: Performed By: #### P INR, CBCA, CMP, , 2776-04 ####[facility] ([id number])[address], [place] [address] Bilirubin [Mass/Vol] 0.7 mg/dL Normal 0.3-1.2 [facility] Comment on above: Performed By: #### P INR, CBCA, CMP, , 2776-04 ####[facility] ([id number])[address], [place] [address] Calcium [Mass/Vol] 8.9 mg/dL Normal 8.5-10.5 [facility] Comment on above: Performed By: #### P INR, CBCA, CMP, , 2776-04 ####[facility] ([id number])[address], [address], [place] [address] Chloride [Moles/Vol] 110 mmol/L High 98-109 [facility] Comment on above: Performed By: #### P INR, CBCA, CMP, , 2776-04 ####[facility] ([id number])[address], [address], [place] [address] CO2 [Moles/Vol] 25 mmol/L Normal 22-32 [facility] Comment on above: Performed By: #### P INR, CBCA, CMP, , 2776-04 ####[facility] ([id number])[address], [place] [address] Creatinine [Mass/Vol] 0.53 mg/dL Normal 0.40-1.00 [facility] Comment on above: Result Comment: METH OD TRACEABLE TO IDMS STANDARD Performed By: #### P INR, CBCA, CMP, , 2776-04 ####[facility] ([id number])[address] [facility] [address], [place] [address] eGFR (CKD-EPI) NON-RACE DEPENDENT >90 Normal >59 [facility] Comment on above: Result Comment: Repo rted eGFR is based on theCKD-EPI 2020 equation that doesnot use a race coefficient. Performed By: #### P INR, CBCA, CMP, , 2776-04 ####[facility] ([id number])[address] [address] [place] [address] Glucose [Mass/Vol] 82 mg/dL Normal 65-99 [facility] Comment on above: Performed By: #### P INR, CBCA, CMP, , 2776-04 ####[facility] ([id number])[address] [address] [place] [address] Potassium [Moles/Vol] 3.1 mmol/L Low 3.5-5.0 [facility] Comment on above: Performed By: #### P INR, CBCA, CMP, , 2776-04 ####[facility] ([id number])[address] [address] [place] [address] Protein [Mass/Vol] 5.6 g/dL Low 6.0-8.0 [facility] Comment on above: Performed By: #### P INR, CBCA, CMP, , 2776-04 ####[facility] ([id number])[address] [address], [place] [address] Sodium [Moles/Vol] 144 mmol/L Normal 134-146 [facility] Comment on above: Performed By: #### P INR, CBCA, CMP, , 2776-04 ####[facility] ([id number])[address], [place] [address] Urea nitrogen [Mass/Vol] 17 mg/dL Normal 5-27 [facility] Comment on above: Performed By: #### P INR, CBCA, CMP, 34055-5, 2776-1 ####[facility] ([id number])[address], [place] [address] CT CTA ABD AND PELVISon 03-0 CT CTA ABD AND PELVIS Normal Pro [facility] CTA Abdominal vessels and Pe lvis vessels W contrast Mónica 06-13-2023 Addendum by Adriel Méndez MD on 06/13/2023 12:50 PM EST *ADDENDUM* ADDENDUM: 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 There is calcification along the wall and intimal flap and there is no surrounding fluid, blood, inflammatory change or irregular intraluminal thrombus There is a similar short dissection in the left superficial femoral artery which looks unchanged and with similar characteristics aside from no significant calcification --------- ------ Finalized by Adriel Méndez MD on 06/13/2023 12:50 PM [facility] HISTORY and Tech Notes: Mesenteric ischemia, acute Follow-up colitis PROCEDURE: CT angiogram abdomen pelvis Study is done with IV contrast Arterial phase and venous phase imaging Two-dimensional source data images submitted in combination with three-dimensional and/or maximum intensity projections and reconstructions Automated exposure control was utilized COMPARISON: June 10 FINDINGS: There is significant tortuosity of the distal descending thoracic aorta and the abdominal aorta There is an endovascular graft stent in the descending thoracic aorta and also in the abdominal aorta There is no visible endoleak or periaortic hematoma The endograft stents extend into the common iliac arteries and right external iliac artery 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 There is only mild stenosis at the origin The SMA enhances There is not significant stenosis at the origin There is mild irregularity, thrombus and narrowing of the proximal to mid segment without occlusion There is moderate calcification multifocal stenosis in the renal arteries On venous phase imaging the SMV enhances There is mild narrowing due to the compression of the abdominal aortic aneurysm in the mid abdomen The splenic vein enhances The portal vein and branches enhance The hepatic veins enhance The hepatic veins enhance UPPER ABDOMEN No splenomegaly. Granuloma changes Left greater than right renal cysts There is a complex lesion in the right kidney with a dense or enhancing component measuring around 2 cm. Follow-up surveillance imaging in 6 months suggested No peripancreatic fluid collections. There is pancreatic atrophy There is suggestion of a tiny cyst in the pancreatic body There is no visible ductal dilatation There are not pancreatic calcifications No suspicious liver mass. No significant bile duct dilatation or perihepatic fluid GB removed No fluid collection Slight prominence of the CBD may be physiologic after cholecystectomy assuming no jaundice or abnormal bilirubin levels No suspicious adrenal mass seen No large hiatal hernia There is a PEG tube in place without visible complication of gastric wall looks prominent but it may be exaggerated by lack of distention PELVIS No hydronephrosis . Lenz in place Nondilated bladder There is some dense material in the dependent portion of the bladder No sign of a bowel obstruction. There is persistent severe bowel wall thickening in the rectum and rectosigmoid region with adjacent fluid and fat stranding and hyperemia, similar to the previous exam The rest of the large and small bowel do not look affected No discrete abscess is seen at this point . No retroperitoneal bleed or suspicious adenopathy. No sign to suggest acute appendicitis. LUNG BASE EVALUATION no basilar consolidation or significant effusion. . BONE RECONSTRUCTIONS Chronic appearing deformity at L4 No aggressive bone destruction. . IMPRESSION: Mild irregularity and stenosis along the proximal and mid SMA without occlusion Dilated tortuous thoracic and abdominal aorta with endovascular graft as detailed above. 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 No significant stenosis or irregular thrombus Hepatic and portal veins look patent. There is some mass effect on the SMV due to the abdominal aortic aneurysm sac causing some narrowing and compression of the lumen without visible thrombus Severe inflammatory change within and around the rectum and rectosigmoid junction with adjacent fat stranding and fluid accumulation but no discrete abscess or bowel obstruction at this point Follow-up suggested prove clearing and normalization and exclude underlying neoplasm or other pathology Complex lesion in the right kidney with a 2 cm dense hemorrhagic or enhancing nodular component adjacent to the more simple cystic component superior to that. Follow-up surveillance imaging within 6 months suggested in attempt to prove stability or benign imaging characteristics. MRI might be useful but may be subject to extensive artifact from the endograft Slight prominence of the CBD thought likely to be physiologic after cholecystectomy in the absence of abnormal bilirubin levels or jaundice . . All CT scans at this facility use dose modulation, iterative reconstruction, and/or weight based dosing when appropriate to reduce radiation dose to as low as reasonably achievable. (more content not included)... SECTRAPACS Adriel Méndez MD - 06/13/2023 HISTORY and Tech Notes: Mesenteric ischemia, acute Follow-up colitis PROCEDURE: CT angiogram abdomen pelvis Study is done with IV contrast Arterial phase and venous phase imaging Two-dimensional source data images submitted in combination with three-dimensional and/or maximum intensity projections and reconstructions Automated exposure control was utilized COMPARISON: June 10 FINDINGS: There is significant tortuosity of the distal descending thoracic aorta and the abdominal aorta There is an endovascular graft stent in the descending thoracic aorta and also in the abdominal aorta There is no visible endoleak or periaortic hematoma The endograft stents extend into the common iliac arteries and right external iliac artery 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 There is only mild stenosis at the origin The SMA enhances There is not significant stenosis at the origin There is mild irregularity, thrombus and narrowing of the proximal to mid segment without occlusion There is moderate calcification multifocal stenosis in the renal arteries On venous phase imaging the SMV enhances There is mild narrowing due to the compression of the abdominal aortic aneurysm in the mid abdomen The splenic vein enhances The portal vein and branches enhance The hepatic veins enhance The hepatic veins enhance UPPER ABDOMEN No splenomegaly. Granuloma changes Left greater than right renal cysts There is a complex lesion in the right kidney with a dense or enhancing component measuring around 2 cm. Follow-up surveillance imaging in 6 months suggested No peripancreatic fluid collections. There is pancreatic atrophy There is suggestion of a tiny cyst in the pancreatic body There is no visible ductal dilatation There are not pancreatic calcifications No suspicious liver mass. No significant bile duct dilatation or perihepatic fluid GB removed No fluid collection Slight prominence of the CBD may be physiologic after cholecystectomy assuming no jaundice or abnormal bilirubin levels No suspicious adrenal mass seen No large hiatal hernia There is a PEG tube in place without visible complication of gastric wall looks prominent but it may be exaggerated by lack of distention PELVIS No hydronephrosis . Lenz in place Nondilated bladder There is some dense material in the dependent portion of the bladder No sign of a bowel obstruction. There is persistent severe bowel wall thickening in the rectum and rectosigmoid region with adjacent fluid and fat stranding and hyperemia, similar to the previous exam The rest of the large and small bowel do not look affected No discrete abscess is seen at this point . No retroperitoneal bleed or suspicious adenopathy. No sign to suggest acute appendicitis. LUNG BASE EVALUATION no basilar consolidation or significant effusion. . BONE RECONSTRUCTIONS Chronic appearing deformity at L4 No aggressive bone destruction. . IMPRESSION: Mild irregularity and stenosis along the proximal and mid SMA without occlusion Dilated tortuous thoracic and abdominal aorta with endovascular graft as detailed above. 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 No significant stenosis or irregular thrombus Hepatic and portal veins look patent. There is some mass effect on the SMV due to the abdominal aortic aneurysm sac causing some narrowing and compression of the lumen without visible thrombus --------- ------ Severe inflammatory change within and around the rectum and rectosigmoid junction with adjacent fat stranding and fluid accumulation but no discrete abscess or bowel obstruction at this point Follow-up suggested prove clearing and normalization and exclude underlying neoplasm or other pathology Complex lesion in the right kidney with a 2 cm dense hemorrhagic or enhancing nodular component adjacent to the more simple cystic component superior to that. Follow-up surveillance imaging within 6 months suggested in attempt to prove stability or benign imaging characteristics. MRI might be useful but may be subject to extensive artifact from the endograft Slight prominence of the CBD thought likely to be physiologic after cholecystectomy in the absence of abnormal bilirubin levels or jaundice . . All CT scans at this facility use dose modulation, iterative reconstruction, and/or weight based dosing when appropriate to reduce r (more content not included)... [facility] Study observation (narrative) Keep Me Certified CTA Abdominal vessels and Pe lvis vessels W contrast IVOrdered By: Adriel Méndez on 06-13-2023 [facility] Work Phone: Comprehensive metabolic pane dennis 06-13-2023 Albumin [Mass/Vol] 3.1 g/dL Low 3.2 - 5.3 g/dL [facility] ALP [Catalytic activity/Vol] 45 U/L 39 - 130 U/L [facility] ALT No additional P-5'-P [Catalytic activity/Vol] 6 U/L 0 - 31 U/L [facility] Anion gap [Moles/Vol] 9 mmol/L 5 - 15 mmol/L [facility] AST [Catalytic activity/Vol] 11 U/L 0 - 41 U/L [facility] Bilirubin [Mass/Vol] 0.7 mg/dL 0.3 - 1 .2 mg/dL [facility] Calcium [Mass/Vol] 8.9 mg/dL 8.5 - 10. 5 mg/dL [facility] Chloride [Moles/Vol] 110 mmol/L High 98 - 10 9 mmol/L [facility] CO2 [Moles/Vol] 25 mmol/L 22 - 32 mmol/L [facility] Creatinine [Mass/Vol] 0.53 mg/dL 0.40 - 1.00 mg/dL [facility] Comment on above: METHOD TRACEABLE TO [facility] STANDARD eGFR (CKD-EPI)non-race dependent - PINF [facility] Comment on above: Reported eGFR is based on the CKD-EPI 2020 equation that does not use a race coefficient. Glucose [Mass/Vol] 82 mg/dL 65 - 99 mg/dL [facility] Potassium [Moles/Vol] 3.1 mmol/L Low 3.5 - 5.0 mmol/L [facility] Protein [Mass/Vol] 5.6 g/dL Low 6.0 - 8.0 g/dL [facility] Sodium [Moles/Vol] 144 mmol/L 134 - 146 mmol/L [facility] Urea nitrogen [Mass/Vol] 17 mg/dL 5 - 27 mg/dL [facility] FECAL OCCULT BLOODon 024 Hemoglobin.gastrointest inal Ql (Stl) Negative Normal NEG [facility] Comment on above: Performed By: #### 2 335-8 ####[facility] ([id number])[address], [address] [place] [address] HGB AND HCTon 06-13-2023 Hematocrit (Bld) [Volume fraction] 30.9 % Low 35-47 [facility] Comment on above: Performed By: #### H H ####[facility] ([id number])[address], [address] [place] [address] Hemoglobin (Bld) [Mass/Vol] 10.5 g/dL Low 11.7-15.5 [facility] Comment on above: Performed By: #### H H ####[facility] ([id number])[address], [address], [place] [address] Hematocrit (Bld) [Volume fraction] 33.5 % Low 35-47 [facility] Comment on above: Performed By: #### H H ####[facility] ([id number])[address], [address], [place] [address] Hemoglobin (Bld) [Mass/Vol] 11.3 g/dL Low 11.7-15.5 [facility] Comment on above: Performed By: #### H H ####[facility] ([id number])[address], [address] [place] [address] Hemoglobin and hematocrit, b loodon 06-13-2023 Hematocrit (Bld) [Volume fraction] 30.9 % Low 35 - 47 % [facility] Hemoglobin (Bld) [Mass/Vol] 10.5 g/dL Low 11.7 - 15.5 g/dL [facility] Interpretation and review of laboratory results Abnormal [facility] Hematocrit (Bld) [Volume fraction] 33.5 % Low 35 - 47 % [facility] Hemoglobin (Bld) [Mass/Vol] 11.3 g/dL Low 11.7 - 15.5 g/dL [facility] Interpretation and review of laboratory results Abnormal [facility] Hemoglobin.gastrointestinal Ql (Stl)on 06-13-2023 [facility] Lactate (P sue) [Moles/Vol]o n 06-13-2023 LACTATE W/REFLEX 0.7 mmol/L Normal 0.4-2.0 [facility] Comment on above: Result Comment: Resu lt did not trigger repeat Lactate,re-order if needed. Performed By: #### 3 2133-1 ####[facility] ([id number])[address], [address] [place] [address] [facility] Lactate w/ Reflexon 06-13-19 24 Lactate (P sue) [Moles/Vol] 0.7 mmol/L 0.4 - 2.0 mmol/L [facility] Comment on above: Result did not trigger repeat Lactate, re-order if needed. MAGNESIUMon 06-13-2023 Magnesium [Mass/Vol] 2.1 mg/dL Normal 1.8-2.6 [facility] Comment on above: Performed By: #### 2 823-3, ####[facility] ([id number])[address], [address] [place] [address] Magnesium [Mass/Vol] 1.4 mg/dL Low 1.8-2.6 [facility] Comment on above: Performed By: #### P INR, CBCA, CMP, , 2776-04 ####[facility] ([id number])[address], [address] [place] [address] Magnesiumon 06-13-2023 Magnesium [Mass/Vol] 2.1 mg/dL 1.8 - 2 .6 mg/dL [facility] Magnesium [Mass/Vol] 1.4 mg/dL Low 1.8 - 2 .6 mg/dL [facility] No Panel Informationon 06-12 [facility] Interpretation and review of laboratory results Abnormal [facility] Occult blood x 1, stoolon Hemoglobin.gastrointest inal Ql (Stl) Negative Negative^N egative [facility] PHOSPHORUSon 06-13-2023 Phosphate [Mass/Vol] 2.6 mg/dL Normal 2.4-4.9 [facility] Comment on above: Performed By: #### P INR, CBCA, CMP, , 2776-04 ####[facility] ([id number])[address], [address] [place] [address] POTASSIUMon 06-13-2023 Potassium [Moles/Vol] 3.6 mmol/L Normal 3.5-5.0 [facility] Comment on above: Performed By: #### 2 823-3, ####[facility] ([id number])[address], [address] [place] [address] PROTIME AND INRon 06-13-2023 INR Coag (PPP) [Relative time] 1.4 {INR} High 0.8-1.1 [facility] Comment on above: Performed By: #### P INR, CBCA, CMP, , 2771 ####[facility] ([id number])[address] [facility], [address] [place] [address] PT Coag (PPP) [Time] 15.6 s High 9.8-13.2 [facility] Comment on above: Performed By: #### P INR, CBCA, CMP, , 1 ####[facility] ([id number])[address], [address] [place] [address] Phosphoruson 06-13-2023 Phosphate [Mass/Vol] 2.6 mg/dL 2.4 - 4 .9 mg/dL [facility] Potassiumon 06-13-2023 Potassium [Moles/Vol] 3.6 mmol/L 3.5 - 5.0 mmol/L [facility] Protime & INRon 06-13-2023 INR Coag (PPP) [Relative time] 1.4 {INR} High [facility] Interpretation and review of laboratory results Abnormal [facility] PT Coag (PPP) [Time] 15.[address] [facility] Type and screen(includes ind irect leonel)on 06-13-2023 ABO A [facility] Rh Nom (Bld) Positive [facility] CBC AND AUTO DIFFon 04-17-19 24 ABSOLUTE BASOPHIL 0.0 X10E9/L Normal 0.0-0.2 [facility] Comment on above: Performed By: #### C BCA, CMP ####[facility] ([id number])[address], [address], [place] [address] ABSOLUTE NEUTROPHIL 7.0 X10E9/L High 1.5-6.6 [facility] Comment on above: Performed By: #### C BCA, CMP ####[facility] ([id number])[address], [address], [place] [address] Basophils/100 WBC (Bld) 0.3 % Normal P [facility] Comment on above: Performed By: #### C BCA, CMP ####[facility] ([id number])[address], [address], [place] [address] Eosinophils (Bld) [#/Vol] 0.2 10*3/uL Normal 0.0-0.4 [facility] Comment on above: Performed By: #### C [place], CMP ####[facility] ([id number])[address] [facility] [address] [place] [address] Eosinophils/100 WBC (Bld) 2.4 % Normal [facility] Comment on above: Performed By: #### C BCA, CMP ####[facility] ([id number])[address], [address], [place] [address] Erythrocyte distribution width (RBC) [Ratio] 14.7 % Normal 11.5-15.0 [facility] Comment on above: Performed By: #### C BCA, CMP ####[facility] ([id number])[address], [address], [place] [address] Hematocrit (Bld) [Volume fraction] 35.3 % Normal 35-47 [facility] Comment on above: Performed By: #### C BCA, CMP ####[facility] ([id number])[address], [address], [place] [address] Hemoglobin (Bld) [Mass/Vol] 12.1 g/dL Normal 11.7-15.5 [facility] Comment on above: Performed By: #### C BCA, CMP ####[facility] ([id number])[address], [place] [address] Lymphocytes (Bld) [#/Vol] 0.7 10*3/uL Low 1.0-3.5 [facility] Comment on above: Performed By: #### C BCA, CMP ####[facility] ([id number])[address], [address], [place] [address] Lymphocytes/100 WBC (Bld) 7.6 % Normal [facility] Comment on above: Performed By: #### C BCA, CMP ####[facility] ([id number])[address], [address], [place] [address] MCH (RBC) [Entitic mass] 28.9 pg Normal 27-34 [facility] Comment on above: Performed By: #### C BCA, CMP ####[facility] ([id number])[address], [address] [address] MCHC (RBC) [Mass/Vol] 34.1 g/dL Normal 32-36 [facility] Comment on above: Performed By: #### C BCA, CMP ####[facility] ([id number])[address], [address], [place] [address] MCV (RBC) [Entitic vol] 85 fL Normal 80-100 [facility] Comment on above: Performed By: #### C BCA, CMP ####[facility] ([id number])[address], [place] [address] Monocytes (Bld) [#/Vol] 0.7 10*3/uL Normal 0-0.9 [facility] Comment on above: Performed By: #### C BCA, CMP ####[facility] ([id number])[address] [address] Monocytes/100 WBC (Bld) 7.8 % Normal [facility] Comment on above: Performed By: #### C [place], CMP ####[facility] ([id number])[address] [address] Neutrophils/100 WBC (Bld) 81.9 % Normal [facility] Comment on above: Performed By: #### C [place], CMP ####[facility] ([id number])[address] [address] Platelet mean volume (Bld) [Entitic vol] 9.8 fL Normal 7-12 [facility] Comment on above: Performed By: #### C [place], CMP ####[facility] ([id number])[address] [address] Platelets (Bld) [#/Vol] 130 10*3/uL Low 150-450 [facility] Comment on above: Performed By: #### C [place], CMP ####[facility] ([id number])[address] [address] RBC COUNT 4.18 X10E12/L Normal 3.80-5.20 [facility] Comment on above: Performed By: #### C [place], CMP ####[facility] ([id number])[address] [address] WBC (Bld) [#/Vol] 8.6 10*3/uL Normal 4.0-11.0 [facility] Comment on above: Performed By: #### C [place], CMP ####[facility] ([id number])[address] [address] CBC auto differentialon 04-08 Basophils (Bld) [#/Vol] 0.0 10*3/uL [facility] Basophils/100 WBC (Bld) 0.3 % P [facility] Eosinophils (Bld) [#/Vol] 0.2 10*3/uL [facility] Eosinophils/100 WBC (Bld) 2.4 % [facility] Erythrocyte distribution width (RBC) [Ratio] 14.7 % 11.5 - 15.0 % [facility] Hematocrit (Bld) [Volume fraction] 35.3 % 35 - 47 % [facility] Hemoglobin (Bld) [Mass/Vol] 12.1 g/dL 11.7 - 15.5 g/dL [facility] Interpretation and review of laboratory results Abnormal [facility] Lymphocytes (Bld) [#/Vol] 0.7 10*3/uL Low [facility] Lymphocytes/100 WBC (Bld) 7.6 % [facility] MCH (RBC) [Entitic mass] 28.9 pg 27 - 34 pg [facility] MCHC (RBC) [Mass/Vol] 34.1 g/dL 32 - 3 6 g/dL [facility] MCV (RBC) [Entitic vol] 85 fL 80 - 100 fL [facility] Monocytes (Bld) [#/Vol] 0.7 10*3/uL [facility] Monocytes/100 WBC (Bld) 7.8 % P [facility] Neutrophils (Bld) [#/Vol] 7.0 10*3/uL High [facility] Neutrophils/100 WBC (Bld) 81.9 % [facility] Platelet mean volume (Bld) [Entitic vol] 9.8 fL 7 - 12 fL [facility] Platelets (Bld) [#/Vol] 130 10*3/uL Low [facility] RBC (Bld) [#/Vol] 4.18 10*6/uL [facility] WBC corrected for nucl RBC Auto (Bld) [#/Vol] 8.6 [facility] COMPREHENSIVE METABOLIC PANE Dennis 04-17-2023 Albumin [Mass/Vol] 3.1 g/dL Low 3.2-5.3 [facility] Comment on above: Performed By: #### C BCA, CMP ####[facility] ([id number])[address], [place] [address] ALP [Catalytic activity/Vol] 86 U/L Normal 39-130 [facility] Comment on above: Performed By: #### C BCA, CMP ####[facility] ([id number])[address], [place] [address] ALT [Catalytic activity/Vol] 69 U/L High 0-31 [facility] Comment on above: Performed By: #### C BCA, CMP ####[facility] ([id number])[address], [place] [address] Anion gap [Moles/Vol] 7 mmol/L Normal 5-15 [facility] Comment on above: Performed By: #### C BCA, CMP ####[facility] ([id number])[address], [place] [address] AST [Catalytic activity/Vol] 24 U/L Normal 0-41 [facility] Comment on above: Performed By: #### C BCA, CMP ####[facility] ([id number])[address], [place] [address] Bilirubin [Mass/Vol] 0.4 mg/dL Normal 0.3-1.2 [facility] Comment on above: Performed By: #### C BCA, CMP ####[facility] ([id number])[address], [address], [place] [address] Calcium [Mass/Vol] 8.8 mg/dL Normal 8.5-10.5 [facility] Comment on above: Performed By: #### C BCA, CMP ####[facility] ([id number])[address], [place] [address] Chloride [Moles/Vol] 105 mmol/L Normal 98-109 [facility] Comment on above: Performed By: #### C BCA, CMP ####[facility] ([id number])[address] [facility] [address], [place] [address] CO2 [Moles/Vol] 27 mmol/L Normal 22-32 [facility] Comment on above: Performed By: #### C BCA, CMP ####[facility] ([id number])[address] [address], [place] [address] Creatinine [Mass/Vol] 0.48 mg/dL Normal 0.40-1.00 [facility] Comment on above: Result Comment: METH OD TRACEABLE TO [facility] STANDARD Performed By: #### C BCA, CMP ####[facility] ([id number])[address] [address], [place] [address] eGFR (CKD-EPI) NON-RACE DEPENDENT >90 Normal >59 [facility] Comment on above: Result Comment: Repo rted eGFR is based on theCKD-EPI 2020 equation that doesnot use a race coefficient. Performed By: #### C BCA, CMP ####[facility] ([id number])[address] [address] [address] Glucose [Mass/Vol] 131 mg/dL High 65-99 [facility] Comment on above: Performed By: #### C BCA, CMP ####[facility] ([id number])[address] [address] [address] Potassium [Moles/Vol] 4.1 mmol/L Normal 3.5-5.0 [facility] Comment on above: Performed By: #### C BCA, CMP ####[facility] ([id number])[address] [place] [address] Protein [Mass/Vol] 6.0 g/dL Normal 6.0-8.0 [facility] Comment on above: Performed By: #### C BCA, CMP ####[facility] ([id number])[address] [address], [place] [address] Sodium [Moles/Vol] 139 mmol/L Normal 134-146 [facility] Comment on above: Performed By: #### C BCA, CMP ####[facility] ([id number])[address], [place] [address] Urea nitrogen [Mass/Vol] 26 mg/dL Normal 5-27 [facility] Comment on above: Performed By: #### C BCA, CMP ####[facility] ([id number])[address], [place] [address] Comprehensive metabolic pane dennis 04-17-2023 Albumin [Mass/Vol] 3.1 g/dL Low 3.2 - 5.3 g/dL [facility] ALP [Catalytic activity/Vol] 86 U/L 39 - 130 U/L [facility] ALT No additional P-5'-P [Catalytic activity/Vol] 69 U/L High 0 - 31 U/L [facility] Anion gap [Moles/Vol] 7 mmol/L 5 - 15 mmol/L [facility] AST [Catalytic activity/Vol] 24 U/L 0 - 41 U/L [facility] Bilirubin [Mass/Vol] 0.4 mg/dL 0.3 - 1 .2 mg/dL [facility] Calcium [Mass/Vol] 8.8 mg/dL 8.5 - 10. 5 mg/dL [facility] Chloride [Moles/Vol] 105 mmol/L 98 - 10 9 mmol/L [facility] CO2 [Moles/Vol] 27 mmol/L 22 - 32 mmol/L [facility] Creatinine [Mass/Vol] 0.48 mg/dL 0.40 - 1.00 mg/dL [facility] eGFR (CKD-EPI)non-race dependent - PINF [facility] Glucose [Mass/Vol] 131 mg/dL High 65 - 99 mg/dL [facility] Interpretation and review of laboratory results Abnormal [facility] Potassium [Moles/Vol] 4.1 mmol/L 3.5 - 5.0 mmol/L [facility] Protein [Mass/Vol] 6.0 g/dL 6.0 - 8.0 g/dL [facility] Sodium [Moles/Vol] 139 mmol/L 134 - 146 mmol/L [facility] Urea nitrogen [Mass/Vol] 26 mg/dL 5 - 27 mg/dL [facility] Glucose Glucometer (BldC) [M ass/Vol]on 04-17-2023 Glucose [Mass/Vol] 132 mg/dL High 65-99 [facility] Glucose [Mass/Vol] 132 mg/dL High 65 - 99 mg/dL [facility] Interpretation and review of laboratory results Abnormal [facility] CBC AND AUTO DIFFon 04-16-19 ABSOLUTE BASOPHIL 0.0 X10E9/L Normal 0.0-0.2 [facility] Comment on above: Performed By: #### C BCA, CMP ####[facility] ([id number])[address] [address] ABSOLUTE NEUTROPHIL 7.1 X10E9/L High 1.5-6.6 [facility] Comment on above: Performed By: #### C BCA, CMP ####[facility] ([id number])[address] [address] Basophils/100 WBC (Bld) 0.4 % Normal [facility] Comment on above: Performed By: #### C BCA, CMP ####[facility] ([id number])[address] [address] [place] [address] Eosinophils (Bld) [#/Vol] 0.2 10*3/uL Normal 0.0-0.4 [facility] Comment on above: Performed By: #### C BCA, CMP ####[facility] ([id number])[address] [address] [place] [address] Eosinophils/100 WBC (Bld) 2.5 % Normal [facility] Comment on above: Performed By: #### C BCA, CMP ####[facility] ([id number])[address] [place] [address] Erythrocyte distribution width (RBC) [Ratio] 14.9 % Normal 11.5-15.0 [facility] Comment on above: Performed By: #### C BCA, CMP ####[facility] ([id number])[address] [place] [address] Hematocrit (Bld) [Volume fraction] 37.0 % Normal 35-47 [facility] Comment on above: Performed By: #### C [place], CMP ####[facility] ([id number])[address] [place] [address] Hemoglobin (Bld) [Mass/Vol] 12.3 g/dL Normal 11.7-15.5 [facility] Comment on above: Performed By: #### C [place], CMP ####[facility] ([id number])[address] [address], [place] [address] Lymphocytes (Bld) [#/Vol] 0.5 10*3/uL Low 1.0-3.5 [facility] Comment on above: Performed By: #### C [place], CMP ####[facility] ([id number])[address], [place] [address] Lymphocytes/100 WBC (Bld) 5.9 % Normal [facility] Comment on above: Performed By: #### C BCA, CMP ####[facility] ([id number])[address] [place] [address] MCH (RBC) [Entitic mass] 28.1 pg Normal 27-34 [facility] Comment on above: Performed By: #### C BCA, CMP ####[facility] ([id number])[address] [place] [address] MCHC (RBC) [Mass/Vol] 33.3 g/dL Normal 32-36 [facility] Comment on above: Performed By: #### C BCA, CMP ####[facility] ([id number])[address], [place] [address] MCV (RBC) [Entitic vol] 85 fL Normal 80-100 [facility] Comment on above: Performed By: #### C BCA, CMP ####[facility] ([id number])[address] [address] Monocytes (Bld) [#/Vol] 0.7 10*3/uL Normal 0-0.9 [facility] Comment on above: Performed By: #### C BCA, CMP ####[facility] ([id number])[address] [place] [address] Monocytes/100 WBC (Bld) 7.8 % Normal [facility] [place] Comment on above: Performed By: #### C BCA, CMP ####[facility] ([id number])[address], [address] [address] Neutrophils/100 WBC (Bld) 83.4 % Normal [facility] Comment on above: Performed By: #### C BCA, CMP ####[facility] ([id number])[address], [place] [address] Platelet mean volume (Bld) [Entitic vol] 9.6 fL Normal 7-12 [facility] Comment on above: Performed By: #### C BCA, CMP ####[facility] ([id number])[address], [place] [address] Platelets (Bld) [#/Vol] 112 10*3/uL Low 150-450 [facility] Comment on above: Performed By: #### C BCA, CMP ####[facility] ([id number])[address], [address] [place] [address] RBC COUNT 4.38 X10E12/L Normal 3.80-5.20 [facility] Comment on above: Performed By: #### C [place], CMP ####[facility] ([id number])[address], [address] [place] [address] WBC (Bld) [#/Vol] 8.5 10*3/uL Normal 4.0-11.0 [facility] Comment on above: Performed By: #### C [place], CMP ####[facility] ([id number])[address] [address] CBC auto differentialon Basophils (Bld) [#/Vol] 0.0 10*3/uL [facility] Basophils/100 WBC (Bld) 0.4 % [facility] [facility] (Bld) [#/Vol] 0.2 10*3/uL [facility] Eosinophils/100 WBC (Bld) 2.5 % [facility] Erythrocyte distribution width (RBC) [Ratio] 14.9 % 11.5 - 15.0 % [facility] Hematocrit (Bld) [Volume fraction] 37.0 % 35 - 47 % [facility] Hemoglobin (Bld) [Mass/Vol] 12.3 g/dL 11.7 - 15.5 g/dL [facility] Interpretation and review of laboratory results Abnormal [facility] Lymphocytes (Bld) [#/Vol] 0.5 10*3/uL Low [facility] Lymphocytes/100 WBC (Bld) 5.9 % [facility] MCH (RBC) [Entitic mass] 28.1 pg 27 - 34 pg [facility] MCHC (RBC) [Mass/Vol] 33.3 g/dL 32 - 3 6 g/dL [facility] MCV (RBC) [Entitic vol] 85 fL 80 - 100 fL [facility] Monocytes (Bld) [#/Vol] 0.7 10*3/uL [facility] Monocytes/100 WBC (Bld) 7.8 % P [facility] Neutrophils (Bld) [#/Vol] 7.1 10*3/uL High [facility] Neutrophils/100 WBC (Bld) 83.4 % [facility] Platelet mean volume (Bld) [Entitic vol] 9.6 fL 7 - 12 fL [facility] Platelets (Bld) [#/Vol] 112 10*3/uL Low [facility] RBC (Bld) [#/Vol] 4.38 10*6/uL [facility] WBC corrected for nucl RBC Auto (Bld) [#/Vol] 8.5 [facility] COMPREHENSIVE METABOLIC PANE Dennis 04-16-2023 Albumin [Mass/Vol] 2.8 g/dL Low 3.2-5.3 [facility] Comment on above: Performed By: #### C BCA, CMP ####[facility] ([id number])[address], [address], [place] [address] ALP [Catalytic activity/Vol] 82 U/L Normal 39-130 [facility] Comment on above: Performed By: #### C BCA, CMP ####[facility] ([id number])[address], [address] [address] ALT [Catalytic activity/Vol] 75 U/L High 0-31 [facility] Comment on above: Performed By: #### C BCA, CMP ####[facility] ([id number])[address], [address], [place] [address] Anion gap [Moles/Vol] 10 mmol/L Normal 5-15 [facility] Comment on above: Performed By: #### C BCA, CMP ####[facility] ([id number])[address], [address], [place] [address] AST [Catalytic activity/Vol] 29 U/L Normal 0-41 [facility] Comment on above: Performed By: #### C BCA, CMP ####[facility] ([id number])[address] [address], [place] [address] Bilirubin [Mass/Vol] 0.4 mg/dL Normal 0.3-1.2 [facility] Comment on above: Performed By: #### C BCA, CMP ####[facility] ([id number])[address] [address], [place] [address] Calcium [Mass/Vol] 8.6 mg/dL Normal 8.5-10.5 [facility] Comment on above: Performed By: #### C BCA, CMP ####[facility] ([id number])[address] [address], [place] [address] Chloride [Moles/Vol] 107 mmol/L Normal 98-109 [facility] Comment on above: Performed By: #### C BCA, CMP ####[facility] ([id number])[address] [address] [address] CO2 [Moles/Vol] 24 mmol/L Normal 22-32 [facility] Comment on above: Performed By: #### C BCA, CMP ####[facility] ([id number])[address] [address], [place] [address] Creatinine [Mass/Vol] 0.47 mg/dL Normal 0.40-1.00 [facility] Comment on above: Result Comment: METH OD TRACEABLE TO IDMS STANDARD Performed By: #### C BCA, CMP ####[facility] ([id number])[address] [address], [place] [address] eGFR (CKD-EPI) NON-RACE DEPENDENT >90 Normal >59 [facility] Comment on above: Result Comment: Repo rted eGFR is based on theCKD-EPI 2020 equation that doesnot use a race coefficient. Performed By: #### C BCA, CMP ####[facility] ([id number])[address] [address], [place] [address] Glucose [Mass/Vol] 152 mg/dL High 65-99 [facility] Comment on above: Performed By: #### C BCA, CMP ####[facility] ([id number])[address], [address] [place] [address] Potassium [Moles/Vol] 4.2 mmol/L Normal 3.5-5.0 [facility] Comment on above: Performed By: #### C BCA, CMP ####[facility] ([id number])[address], [address] [place] [address] Protein [Mass/Vol] 5.8 g/dL Low 6.0-8.0 [facility] Comment on above: Performed By: #### C BCA, CMP ####[facility] ([id number])[address], [address] [place] [address] Sodium [Moles/Vol] 141 mmol/L Normal 134-146 [facility] Comment on above: Performed By: #### C BCA, CMP ####[facility] ([id number])[address], [address] [place] [address] Urea nitrogen [Mass/Vol] 29 mg/dL High 5-27 [facility] Comment on above: Performed By: #### C BCA, CMP ####[facility] ([id number])[address], [address] [place] [address] Comprehensive metabolic pane dennis 04-16-2023 Albumin [Mass/Vol] 2.8 g/dL Low 3.2 - 5.3 g/dL [facility] ALP [Catalytic activity/Vol] 82 U/L 39 - 130 U/L [facility] ALT No additional P-5'-P [Catalytic activity/Vol] 75 U/L High 0 - 31 U/L [facility] Anion gap [Moles/Vol] 10 mmol/L 5 - 15 mmol/L [facility] AST [Catalytic activity/Vol] 29 U/L 0 - 41 U/L [facility] Bilirubin [Mass/Vol] 0.4 mg/dL 0.3 - 1 .2 mg/dL [facility] Calcium [Mass/Vol] 8.6 mg/dL 8.5 - 10. 5 mg/dL [facility] Chloride [Moles/Vol] 107 mmol/L 98 - 10 9 mmol/L [facility] CO2 [Moles/Vol] 24 mmol/L 22 - 32 mmol/L [facility] Creatinine [Mass/Vol] 0.47 mg/dL 0.40 - 1.00 mg/dL [facility] eGFR (CKD-EPI)non-race dependent - PINF [facility] Glucose [Mass/Vol] 152 mg/dL High 65 - 99 mg/dL [facility] Interpretation and review of laboratory results Abnormal [facility] Potassium [Moles/Vol] 4.2 mmol/L 3.5 - 5.0 mmol/L [facility] Protein [Mass/Vol] 5.8 g/dL Low 6.0 - 8.0 g/dL [facility] Sodium [Moles/Vol] 141 mmol/L 134 - 146 mmol/L [facility] Urea nitrogen [Mass/Vol] 29 mg/dL High 5 - 27 mg/dL [facility] Glucose Glucometer (BldC) [M ass/Vol]on 04-16-2023 Glucose [Mass/Vol] 141 mg/dL High 65-99 [facility] Glucose [Mass/Vol] 141 mg/dL High 65 - 99 mg/dL [facility] Interpretation and review of laboratory results Abnormal [facility] Glucose [Mass/Vol] 141 mg/dL High 65-99 [facility] Glucose [Mass/Vol] 141 mg/dL High 65 - 99 mg/dL [facility] Interpretation and review of laboratory results Abnormal [facility] Glucose [Mass/Vol] 156 mg/dL High 65 - 99 mg/dL [facility] Interpretation and review of laboratory results Abnormal [facility] Glucose [Mass/Vol] 156 mg/dL High 65-99 [facility] Glucose [Mass/Vol] 154 mg/dL High 65-99 [facility] CBC AND AUTO DIFFon 04-15-19 24 ABSOLUTE BASOPHIL 0.0 X10E9/L Normal 0.0-0.2 [facility] Comment on above: Performed By: #### C [place], CMP ####[facility] ([id number])[address], [address] [place] [address] ABSOLUTE NEUTROPHIL 7.8 X10E9/L High 1.5-6.6 [facility] Comment on above: Performed By: #### C BR[place], CMP ####[facility] ([id number])[address] [address], [place] [address] Basophils/100 WBC (Bld) 0.2 % Normal P [facility] Comment on above: Performed By: #### C BR[place], CMP ####[facility] ([id number])[address] [address], [place] [address] Eosinophils (Bld) [#/Vol] 0.2 10*3/uL Normal 0.0-0.4 [facility] Comment on above: Performed By: #### C BR[place]LY[place], CMP ####[facility] ([id number])[address], [place] [address] Eosinophils/100 WBC (Bld) 1.9 % Normal [facility] Comment on above: Performed By: #### C BR[place], CMP ####[facility] ([id number])[address] [address] [address] Erythrocyte distribution width (RBC) [Ratio] 14.9 % Normal 11.5-15.0 [facility] Comment on above: Performed By: #### C BR[place], CMP ####[facility] ([id number])[address] [address], [place] [address] Hematocrit (Bld) [Volume fraction] 34.4 % Low 35-47 [facility] Comment on above: Performed By: #### C BR[place], CMP ####[facility] ([id number])[address], [address], [place] [address] Hemoglobin (Bld) [Mass/Vol] 11.6 g/dL Low 11.7-15.5 [facility] Comment on above: Performed By: #### C BCA, CMP ####[facility] ([id number])[address], [address] [address] Lymphocytes (Bld) [#/Vol] 0.6 10*3/uL Low 1.0-3.5 [facility] Comment on above: Performed By: #### C BR[place]LY[place], CMP ####[facility] ([id number])[address], [address] [place] [address] Lymphocytes/100 WBC (Bld) 6.8 % Normal [facility] Comment on above: Performed By: #### C BR[place], CMP ####[facility] ([id number])[address], [address] [address] MCH (RBC) [Entitic mass] 28.9 pg Normal 27-34 [facility] Comment on above: Performed By: #### C BR[place]LY[place], CMP ####[facility] ([id number])[address], [address], [place] [address] MCHC (RBC) [Mass/Vol] 33.7 g/dL Normal 32-36 [facility] Comment on above: Performed By: #### C BCA, CMP ####[facility] ([id number])[address], [address] [address] MCV (RBC) [Entitic vol] 86 fL Normal 80-100 [facility] Comment on above: Performed By: #### C BCA, CMP ####[facility] ([id number])[address], [address], [place] [address] Monocytes (Bld) [#/Vol] 0.5 10*3/uL Normal 0-0.9 [facility] Comment on above: Performed By: #### C BCA, CMP ####[facility] ([id number])[address], [address], [place] [address] Monocytes/100 WBC (Bld) 5.1 % Normal [facility] Comment on above: Performed By: #### C BCA, CMP ####[facility] ([id number])[address], [address], [place] [address] Neutrophils/100 WBC (Bld) 86.0 % Normal [facility] Comment on above: Performed By: #### C BROOKLYN, CMP ####[facility] ([id number])[address], [address], [place] [address] Platelet mean volume (Bld) [Entitic vol] 9.7 fL Normal 7-12 [facility] Comment on above: Performed By: #### C BCA, CMP ####[facility] ([id number])[address], [address], [place] [address] Platelets (Bld) [#/Vol] 124 10*3/uL Low 150-450 [facility] Comment on above: Performed By: #### C BCA, CMP ####[facility] ([id number])[address], [address], [place] [address] RBC COUNT 4.01 X10E12/L Normal 3.80-5.20 [facility] Comment on above: Performed By: #### C BCA, CMP ####[facility] ([id number])[address], [address], [place] [address] WBC (Bld) [#/Vol] 9.0 10*3/uL Normal 4.0-11.0 [facility] Comment on above: Performed By: #### C BCA, CMP ####[facility] ([id number])[address], [address], [place] [address] CBC auto differentialon Basophils (Bld) [#/Vol] 0.0 10*3/uL [facility] Basophils/100 WBC (Bld) 0.2 % [facility] Eosinophils (Bld) [#/Vol] 0.2 10*3/uL [facility] Eosinophils/100 WBC (Bld) 1.9 % [facility] Erythrocyte distribution width (RBC) [Ratio] 14.9 % 11.5 - 15.0 % [facility] Hematocrit (Bld) [Volume fraction] 34.4 % Low 35 - 47 % [facility] Hemoglobin (Bld) [Mass/Vol] 11.6 g/dL Low 11.7 - 15.5 g/dL [facility] Interpretation and review of laboratory results Abnormal [facility] Lymphocytes (Bld) [#/Vol] 0.6 10*3/uL Low [facility] Lymphocytes/100 WBC (Bld) 6.8 % [facility] MCH (RBC) [Entitic mass] 28.9 pg 27 - 34 pg [facility] MCHC (RBC) [Mass/Vol] 33.7 g/dL 32 - 3 6 g/dL [facility] MCV (RBC) [Entitic vol] 86 fL 80 - 100 fL [facility] Monocytes (Bld) [#/Vol] 0.5 10*3/uL [facility] Monocytes/100 WBC (Bld) 5.1 % [facility] Neutrophils (Bld) [#/Vol] 7.8 10*3/uL High [facility] Neutrophils/100 WBC (Bld) 86.0 % [facility] Platelet mean volume (Bld) [Entitic vol] 9.7 fL 7 - 12 fL [facility] Platelets (Bld) [#/Vol] 124 10*3/uL Low [facility] RBC (Bld) [#/Vol] 4.01 10*6/uL [facility] WBC corrected for nucl RBC Auto (Bld) [#/Vol] 9.0 [facility] COMPREHENSIVE METABOLIC PANE Dennis 04-15-2023 Albumin [Mass/Vol] 2.8 g/dL Low 3.2-5.3 [facility] Comment on above: Performed By: #### C BCA, CMP ####[facility] ([id number])[address], [address], [place] [address] ALP [Catalytic activity/Vol] 87 U/L Normal 39-130 [facility] Comment on above: Performed By: #### C BCA, CMP ####[facility] ([id number])[address], [address], [place] [address] ALT [Catalytic activity/Vol] 89 U/L High 0-31 [facility] Comment on above: Performed By: #### C BCA, CMP ####[facility] ([id number])[address], [address], [place] [address] Anion gap [Moles/Vol] 9 mmol/L Normal 5-15 [facility] Comment on above: Performed By: #### C BCA, CMP ####[facility] ([id number])[address], [address], [place] [address] AST [Catalytic activity/Vol] 44 U/L High 0-41 [facility] Comment on above: Performed By: #### C BCA, CMP ####[facility] ([id number])[address], [place] [address] Bilirubin [Mass/Vol] 0.4 mg/dL Normal 0.3-1.2 [facility] Comment on above: Performed By: #### C BCA, CMP ####[facility] ([id number])[address], [address], [place] [address] Calcium [Mass/Vol] 8.5 mg/dL Normal 8.5-10.5 [facility] Comment on above: Performed By: #### C BCA, CMP ####[facility] ([id number])[address] [address], [place] [address] Chloride [Moles/Vol] 107 mmol/L Normal 98-109 [facility] Comment on above: Performed By: #### C BCA, CMP ####[facility] ([id number])[address], [address], [place] [address] CO2 [Moles/Vol] 24 mmol/L Normal 22-32 [facility] Comment on above: Performed By: #### C BCA, CMP ####[facility] ([id number])[address] [address] [place] [address] Creatinine [Mass/Vol] 0.48 mg/dL Normal 0.40-1.00 [facility] Comment on above: Result Comment: METH OD TRACEABLE TO IDMS STANDARD Performed By: #### C BCA, CMP ####[facility] ([id number])[address] [address], [place] [address] eGFR (CKD-EPI) NON-RACE DEPENDENT >90 Normal >59 [facility] Comment on above: Result Comment: Repo rted eGFR is based on theCKD-EPI 2020 equation that doesnot use a race coefficient. Performed By: #### C BCA, CMP ####[facility] ([id number])[address] [address], [place] [address] Glucose [Mass/Vol] 136 mg/dL High 65-99 [facility] Comment on above: Performed By: #### C BCA, CMP ####[facility] ([id number])[address] [address], [place] [address] Potassium [Moles/Vol] 3.8 mmol/L Normal 3.5-5.0 [facility] Comment on above: Performed By: #### C BCA, CMP ####[facility] ([id number])[address] [address], [place] [address] Protein [Mass/Vol] 5.8 g/dL Low 6.0-8.0 [facility] Comment on above: Performed By: #### C BCA, CMP ####[facility] ([id number])[address], [address] [place] [address] Sodium [Moles/Vol] 140 mmol/L Normal 134-146 [facility] Comment on above: Performed By: #### C BCA, CMP ####[facility] ([id number])[address], [address] [place] [address] Urea nitrogen [Mass/Vol] 27 mg/dL Normal 5-27 [facility] Comment on above: Performed By: #### C BCA, CMP ####[facility] ([id number])[address], [address] [place] [address] Comprehensive metabolic pane dennis 04-15-2023 Albumin [Mass/Vol] 2.8 g/dL Low 3.2 - 5.3 g/dL [facility] ALP [Catalytic activity/Vol] 87 U/L 39 - 130 U/L [facility] ALT No additional P-5'-P [Catalytic activity/Vol] 89 U/L High 0 - 31 U/L [facility] Anion gap [Moles/Vol] 9 mmol/L 5 - 15 mmol/L [facility] AST [Catalytic activity/Vol] 44 U/L High 0 - 41 U/L [facility] Bilirubin [Mass/Vol] 0.4 mg/dL 0.3 - 1 .2 mg/dL [facility] Calcium [Mass/Vol] 8.5 mg/dL 8.5 - 10. 5 mg/dL [facility] Chloride [Moles/Vol] 107 mmol/L 98 - 10 9 mmol/L [facility] CO2 [Moles/Vol] 24 mmol/L 22 - 32 mmol/L [facility] Creatinine [Mass/Vol] 0.48 mg/dL 0.40 - 1.00 mg/dL [facility] eGFR (CKD-EPI)non-race dependent - PINF [facility] Glucose [Mass/Vol] 136 mg/dL High 65 - 99 mg/dL [facility] Interpretation and review of laboratory results Abnormal [facility] Potassium [Moles/Vol] 3.8 mmol/L 3.5 - 5.0 mmol/L [facility] Protein [Mass/Vol] 5.8 g/dL Low 6.0 - 8.0 g/dL [facility] Sodium [Moles/Vol] 140 mmol/L 134 - 146 mmol/L [facility] Urea nitrogen [Mass/Vol] 27 mg/dL 5 - 27 mg/dL [facility] Glucose Glucometer (BldC) [M ass/Vol]on 04-15-2023 Glucose [Mass/Vol] 154 mg/dL High 65 - 99 mg/dL [facility] Interpretation and review of laboratory results Abnormal [facility] Glucose [Mass/Vol] 128 mg/dL High 65-99 [facility] Glucose [Mass/Vol] 128 mg/dL High 65 - 99 mg/dL [facility] Interpretation and review of laboratory results Abnormal [facility] Glucose [Mass/Vol] 106 mg/dL High 65-99 [facility] Glucose [Mass/Vol] 106 mg/dL High 65 - 99 mg/dL [facility] Interpretation and review of laboratory results Abnormal [facility] Glucose [Mass/Vol] 143 mg/dL High 65-99 [facility] Glucose [Mass/Vol] 143 mg/dL High 65 - 99 mg/dL [facility] Interpretation and review of laboratory results Abnormal [facility] Glucose [Mass/Vol] 172 mg/dL High 65-99 [facility] CBC AND AUTO DIFFon 04-14-19 24 ABSOLUTE BASOPHIL 0.0 X10E9/L Normal 0.0-0.2 [facility] Comment on above: Performed By: #### C BCA, CMP ####[facility] ([id number])[address], [address] [place] [address] ABSOLUTE NEUTROPHIL 8.1 X10E9/L High 1.5-6.6 [facility] Comment on above: Performed By: #### C BCA, CMP ####[facility] ([id number])[address], [place] [address] Basophils/100 WBC (Bld) 0.1 % Normal [facility] Comment on above: Performed By: #### C BCA, CMP ####[facility] ([id number])[address], [place] [address] Eosinophils (Bld) [#/Vol] 0.2 10*3/uL Normal 0.0-0.4 [facility] Comment on above: Performed By: #### C [place], CMP ####[facility] ([id number])[address] [address], [place] [address] Eosinophils/100 WBC (Bld) 2.3 % Normal [facility] Comment on above: Performed By: #### C [place], CMP ####[facility] ([id number])[address] [address], [place] [address] Erythrocyte distribution width (RBC) [Ratio] 14.4 % Normal 11.5-15.0 [facility] Comment on above: Performed By: #### C [place], CMP ####[facility] ([id number])[address] [address], [place] [address] Hematocrit (Bld) [Volume fraction] 35.0 % Normal 35-47 [facility] Comment on above: Performed By: #### C [place], CMP ####[facility] ([id number])[address] [address], [place] [address] Hemoglobin (Bld) [Mass/Vol] 11.7 g/dL Normal 11.7-15.5 [facility] Comment on above: Performed By: #### C BCA, CMP ####[facility] ([id number])[address] [address], [place] [address] Lymphocytes (Bld) [#/Vol] 0.7 10*3/uL Low 1.0-3.5 [facility] Comment on above: Performed By: #### C BCA, CMP ####[facility] ([id number])[address] [place] [address] Lymphocytes/100 WBC (Bld) 7.8 % Normal [facility] Comment on above: Performed By: #### C BCA, CMP ####[facility] ([id number])[address] [address] [address] MCH (RBC) [Entitic mass] 28.9 pg Normal 27-34 [facility] Comment on above: Performed By: #### C BCA, CMP ####[facility] ([id number])[address] [address] [address] MCHC (RBC) [Mass/Vol] 33.5 g/dL Normal 32-36 [facility] Comment on above: Performed By: #### C BCA, CMP ####[facility] ([id number])[address] [place] [address] MCV (RBC) [Entitic vol] 86 fL Normal 80-100 [facility] Comment on above: Performed By: #### C BCA, CMP ####[facility] ([id number])[address] [address] [place] [address] Monocytes (Bld) [#/Vol] 0.4 10*3/uL Normal 0-0.9 [facility] Comment on above: Performed By: #### C BCA, CMP ####[facility] ([id number])[address] [address] [address] Monocytes/100 WBC (Bld) 4.6 % Normal [facility] Comment on above: Performed By: #### C BCA, CMP ####[facility] ([id number])[address] [address] Neutrophils/100 WBC (Bld) 85.2 % Normal [facility] Comment on above: Performed By: #### Batsheva BARAHONA, CMP ####[facility] ([id number])[address] [address] Platelet mean volume (Bld) [Entitic vol] 9.3 fL Normal 7-12 [facility] Comment on above: Performed By: #### C BROOKLYN, CMP ####[facility] ([id number])[address] [address] Platelets (Bld) [#/Vol] 94 10*3/uL Low 150-450 P [facility] Comment on above: Performed By: #### Batsheva BARAHONA, CMP ####[facility] ([id number])[address] [address] RBC COUNT 4.06 X10E12/L Normal 3.80-5.20 [facility] Comment on above: Performed By: #### Batsheva BARAHONA, CMP ####[facility] ([id number])[address] [address] WBC (Bld) [#/Vol] 9.5 10*3/uL Normal 4.0-11.0 [facility] Comment on above: Performed By: #### Batsheva BARAHONA, CMP ####[facility] ([id number])[address] [address] CBC auto differentialon Basophils (Bld) [#/Vol] 0.0 10*3/uL [facility] Basophils/100 WBC (Bld) 0.1 % P [facility] Eosinophils (Bld) [#/Vol] 0.2 10*3/uL [facility] Eosinophils/100 WBC (Bld) 2.3 % [facility] Erythrocyte distribution width (RBC) [Ratio] 14.4 % 11.5 - 15.0 % [facility] Hematocrit (Bld) [Volume fraction] 35.0 % 35 - 47 % [facility] Hemoglobin (Bld) [Mass/Vol] 11.7 g/dL 11.7 - 15.5 g/dL [facility] Interpretation and review of laboratory results Abnormal [facility] Lymphocytes (Bld) [#/Vol] 0.7 10*3/uL Low [facility] Lymphocytes/100 WBC (Bld) 7.8 % [facility] MCH (RBC) [Entitic mass] 28.9 pg 27 - 34 pg [facility] MCHC (RBC) [Mass/Vol] 33.5 g/dL 32 - 3 6 g/dL [facility] MCV (RBC) [Entitic vol] 86 fL 80 - 100 fL [facility] Monocytes (Bld) [#/Vol] 0.4 10*3/uL [facility] Monocytes/100 WBC (Bld) 4.6 % P [facility] Neutrophils (Bld) [#/Vol] 8.1 10*3/uL High [facility] Neutrophils/100 WBC (Bld) 85.2 % [facility] Platelet mean volume (Bld) [Entitic vol] 9.3 fL 7 - 12 fL [facility] Platelets (Bld) [#/Vol] 94 10*3/uL Low P [facility] RBC (Bld) [#/Vol] 4.06 10*6/uL [facility] WBC corrected for nucl RBC Auto (Bld) [#/Vol] 9.5 [facility] COMPREHENSIVE METABOLIC PANE Dennis 04-14-2023 Albumin [Mass/Vol] 2.9 g/dL Low 3.2-5.3 [facility] Comment on above: Performed By: #### C BCA, CMP ####[facility] ([id number])[address] [facility], [address], [place] [address] ALP [Catalytic activity/Vol] 85 U/L Normal 39-130 [facility] Comment on above: Performed By: #### C BCA, CMP ####[facility] ([id number])[address], [place] [address] ALT [Catalytic activity/Vol] 76 U/L High 0-31 [facility] Comment on above: Performed By: #### C BCA, CMP ####[facility] ([id number])[address], [place] [address] Anion gap [Moles/Vol] 10 mmol/L Normal 5-15 [facility] Comment on above: Performed By: #### C BCA, CMP ####[facility] ([id number])[address], [place] [address] AST [Catalytic activity/Vol] 35 U/L Normal 0-41 [facility] Comment on above: Performed By: #### C BCA, CMP ####[facility] ([id number])[address], [place] [address] Bilirubin [Mass/Vol] 0.4 mg/dL Normal 0.3-1.2 [facility] Comment on above: Performed By: #### C BCA, CMP ####[facility] ([id number])[address], [address], [place] [address] Calcium [Mass/Vol] 8.5 mg/dL Normal 8.5-10.5 [facility] Comment on above: Performed By: #### C BCA, CMP ####[facility] ([id number])[address], [address], [place] [address] Chloride [Moles/Vol] 112 mmol/L High 98-109 [facility] Comment on above: Performed By: #### C BCA, CMP ####[facility] ([id number])[address], [place] [address] CO2 [Moles/Vol] 23 mmol/L Normal 22-32 [facility] Comment on above: Performed By: #### C BCA, CMP ####[facility] ([id number])0 [address] [address] [place] [address] Creatinine [Mass/Vol] 0.50 mg/dL Normal 0.40-1.00 [facility] Comment on above: Result Comment: METH OD TRACEABLE TO IDMS STANDARD Performed By: #### C BCA, CMP ####[facility] ([id number])[address] [address] eGFR (CKD-EPI) NON-RACE DEPENDENT >90 Normal >59 [facility] Comment on above: Result Comment: Repo rted eGFR is based on theCKD-EPI 2020 equation that doesnot use a race coefficient. Performed By: #### C BCA, CMP ####[facility] ([id number])[address] [address] Glucose [Mass/Vol] 148 mg/dL High 65-99 [facility] Comment on above: Performed By: #### C BCA, CMP ####[facility] ([id number])[address] [address] Potassium [Moles/Vol] 3.5 mmol/L Normal 3.5-5.0 [facility] Comment on above: Performed By: #### C BCA, CMP ####[facility] ([id number])[address] [address] Protein [Mass/Vol] 5.9 g/dL Low 6.0-8.0 [facility] Comment on above: Performed By: #### C BCA, CMP ####[facility] ([id number])[address] [address] Sodium [Moles/Vol] 145 mmol/L Normal 134-146 [facility] Comment on above: Performed By: #### C BCA, CMP ####[facility] ([id number])[address] [facility], [address], [place] [address] Urea nitrogen [Mass/Vol] 24 mg/dL Normal 5-27 [facility] Comment on above: Performed By: #### C BCA, CMP ####[facility] ([id number])[address] [facility], [address] [place] [address] Comprehensive metabolic pane dennis 04-14-2023 Albumin [Mass/Vol] 2.9 g/dL Low 3.2 - 5.3 g/dL [facility] ALP [Catalytic activity/Vol] 85 U/L 39 - 130 U/L [facility] ALT No additional P-5'-P [Catalytic activity/Vol] 76 U/L High 0 - 31 U/L [facility] Anion gap [Moles/Vol] 10 mmol/L 5 - 15 mmol/L [facility] AST [Catalytic activity/Vol] 35 U/L 0 - 41 U/L [facility] Bilirubin [Mass/Vol] 0.4 mg/dL 0.3 - 1 .2 mg/dL [facility] Calcium [Mass/Vol] 8.5 mg/dL 8.5 - 10. 5 mg/dL [facility] Chloride [Moles/Vol] 112 mmol/L High 98 - 10 9 mmol/L [facility] CO2 [Moles/Vol] 23 mmol/L 22 - 32 mmol/L [facility] Creatinine [Mass/Vol] 0.50 mg/dL 0.40 - 1.00 mg/dL [facility] eGFR (CKD-EPI)non-race dependent - PINF [facility] Glucose [Mass/Vol] 148 mg/dL High 65 - 99 mg/dL [facility] Interpretation and review of laboratory results Abnormal [facility] Potassium [Moles/Vol] 3.5 mmol/L 3.5 - 5.0 mmol/L [facility] Protein [Mass/Vol] 5.9 g/dL Low 6.0 - 8.0 g/dL [facility] Sodium [Moles/Vol] 145 mmol/L 134 - 146 mmol/L [facility] Urea nitrogen [Mass/Vol] 24 mg/dL 5 - 27 mg/dL [facility] ECG 12 leadon 04-14-2023 TRACEMASTERVUE [facility] Glucose Glucometer (BldC) [M ass/Vol]on 04-14-2023 Glucose [Mass/Vol] 172 mg/dL High 65 - 99 mg/dL [facility] Interpretation and review of laboratory results Abnormal [facility] Glucose [Mass/Vol] 111 mg/dL High 65-99 [facility] Glucose [Mass/Vol] 111 mg/dL High 65 - 99 mg/dL [facility] Interpretation and review of laboratory results Abnormal [facility] CBC AND AUTO DIFFon 04-13-19 24 ABSOLUTE BASOPHIL 0.0 X10E9/L Normal 0.0-0.2 [facility] Comment on above: Performed By: #### C BROOKLYN, CMP ####[facility] ([id number])[address], [address] [place] [address] ABSOLUTE NEUTROPHIL 9.2 X10E9/L High 1.5-6.6 [facility] Comment on above: Performed By: #### C BROOKLYN, CMP ####[facility] ([id number])[address], [address] [place] [address] Basophils/100 WBC (Bld) 0.1 % Normal P [facility] Comment on above: Performed By: #### C BCA, CMP ####[facility] ([id number])[address], [address] [place] [address] Eosinophils (Bld) [#/Vol] 0.2 10*3/uL Normal 0.0-0.4 [facility] Comment on above: Performed By: #### C BCA, CMP ####[facility] ([id number])[address], [address] [place] [address] Eosinophils/100 WBC (Bld) 1.6 % Normal [facility] Comment on above: Performed By: #### C BCA, CMP ####[facility] ([id number])[address], [address] [place] [address] Erythrocyte distribution width (RBC) [Ratio] 14.9 % Normal 11.5-15.0 [facility] Comment on above: Performed By: #### C BCA, CMP ####[facility] ([id number])[address], [address] [place] [address] Hematocrit (Bld) [Volume fraction] 34.4 % Low 35-47 [facility] Comment on above: Performed By: #### C BROOKLYN, CMP ####[facility] ([id number])[address], [address] [place] [address] Hemoglobin (Bld) [Mass/Vol] 11.5 g/dL Low 11.7-15.5 [facility] Comment on above: Performed By: #### C BROOKLYN, CMP ####[facility] ([id number])[address], [address] [place] [address] Lymphocytes (Bld) [#/Vol] 0.8 10*3/uL Low 1.0-3.5 [facility] Comment on above: Performed By: #### C BROOKLYN, CMP ####[facility] ([id number])[address], [address] [address] Lymphocytes/100 WBC (Bld) 7.1 % Normal [facility] Comment on above: Performed By: #### C BCA, CMP ####[facility] ([id number])[address], [address] [place] [address] MCH (RBC) [Entitic mass] 28.8 pg Normal 27-34 [facility] Comment on above: Performed By: #### C BCA, CMP ####[facility] ([id number])[address], [address] [place] [address] MCHC (RBC) [Mass/Vol] 33.4 g/dL Normal 32-36 [facility] Comment on above: Performed By: #### C BCA, CMP ####[facility] ([id number])[address], [address], [place] [address] MCV (RBC) [Entitic vol] 86 fL Normal 80-100 P [facility] Comment on above: Performed By: #### C BCA, CMP ####[facility] ([id number])[address], [address] [place] [address] Monocytes (Bld) [#/Vol] 0.5 10*3/uL Normal 0-0.9 [facility] Comment on above: Performed By: #### C BROOKLYN, CMP ####[facility] ([id number])[address], [address] [place] [address] Monocytes/100 WBC (Bld) 5.1 % Normal [facility] Comment on above: Performed By: #### C BROOKLYN, CMP ####[facility] ([id number])[address], [address] [place] [address] Neutrophils/100 WBC (Bld) 86.1 % Normal [facility] Comment on above: Performed By: #### C BCA, CMP ####[facility] ([id number])[address], [address] [place] [address] Platelet mean volume (Bld) [Entitic vol] 9.7 fL Normal 7-12 [facility] Comment on above: Performed By: #### C BCA, CMP ####[facility] ([id number])[address], [address], [place] [address] Platelets (Bld) [#/Vol] 91 10*3/uL Low 150-450 P [facility] Comment on above: Performed By: #### C BCA, CMP ####[facility] ([id number])[address], [address] [place] [address] RBC COUNT 3.99 X10E12/L Normal 3.80-5.20 [facility] Comment on above: Performed By: #### C BROOKLYN, CMP ####[facility] ([id number])[address], [address] [place] [address] WBC (Bld) [#/Vol] 10.7 10*3/uL Normal 4.0-11.0 [facility] Comment on above: Performed By: #### C BROOKLYN, CMP ####[facility] ([id number])[address] [address] CBC auto differentialon Basophils (Bld) [#/Vol] 0.0 10*3/uL [facility] Basophils/100 WBC (Bld) 0.1 % [facility] Eosinophils (Bld) [#/Vol] 0.2 10*3/uL [facility] Eosinophils/100 WBC (Bld) 1.6 % [facility] Erythrocyte distribution width (RBC) [Ratio] 14.9 % 11.5 - 15.0 % [facility] Hematocrit (Bld) [Volume fraction] 34.4 % Low 35 - 47 % [facility] Hemoglobin (Bld) [Mass/Vol] 11.5 g/dL Low 11.7 - 15.5 g/dL [facility] Interpretation and review of laboratory results Abnormal [facility] Lymphocytes (Bld) [#/Vol] 0.8 10*3/uL Low [facility] Lymphocytes/100 WBC (Bld) 7.1 % [facility] MCH (RBC) [Entitic mass] 28.8 pg 27 - 34 pg [facility] MCHC (RBC) [Mass/Vol] 33.4 g/dL 32 - 3 6 g/dL [facility] MCV (RBC) [Entitic vol] 86 fL 80 - 100 fL [facility] Monocytes (Bld) [#/Vol] 0.5 10*3/uL [facility] Monocytes/100 WBC (Bld) 5.1 % [facility] Neutrophils (Bld) [#/Vol] 9.2 10*3/uL [facility] Neutrophils/100 WBC (Bld) 86.1 % [facility] Platelet mean volume (Bld) [Entitic vol] 9.7 fL 7 - 12 fL [facility] Platelets (Bld) [#/Vol] 91 10*3/uL Low P [facility] RBC (Bld) [#/Vol] 3.99 10*6/uL [facility] WBC corrected for nucl RBC Auto (Bld) [#/Vol] 10.7 [facility] COMPREHENSIVE METABOLIC PANE Dennis 04-13-2023 Albumin [Mass/Vol] 2.8 g/dL Low 3.2-5.3 [facility] Comment on above: Performed By: #### C BCA, CMP ####[facility] ([id number])[address], [address] [place] [address] ALP [Catalytic activity/Vol] 88 U/L Normal 39-130 [facility] Comment on above: Performed By: #### C BCA, CMP ####[facility] ([id number])[address], [address] [place] [address] ALT [Catalytic activity/Vol] 74 U/L High 0-31 [facility] Comment on above: Performed By: #### C BCA, CMP ####[facility] ([id number])[address], [address] [address] Anion gap [Moles/Vol] 8 mmol/L Normal 5-15 [facility] Comment on above: Performed By: #### C BCA, CMP ####[facility] ([id number])[address], [address] [place] [address] AST [Catalytic activity/Vol] 28 U/L Normal 0-41 [facility] Comment on above: Performed By: #### C BCA, CMP ####[facility] ([id number])[address] [address], [place] [address] Bilirubin [Mass/Vol] 0.5 mg/dL Normal 0.3-1.2 [facility] Comment on above: Performed By: #### C BCA, CMP ####[facility] ([id number])[address] [address], [place] [address] Calcium [Mass/Vol] 8.5 mg/dL Normal 8.5-10.5 [facility] Comment on above: Performed By: #### C BCA, CMP ####[facility] ([id number])[address] [address], [place] [address] Chloride [Moles/Vol] 117 mmol/L High 98-109 [facility] Comment on above: Performed By: #### C BCA, CMP ####[facility] ([id number])[address] [address], [place] [address] CO2 [Moles/Vol] 24 mmol/L Normal 22-32 [facility] Comment on above: Performed By: #### C BCA, CMP ####[facility] ([id number])[address] [address], [place] [address] Creatinine [Mass/Vol] 0.58 mg/dL Normal 0.40-1.00 [facility] Comment on above: Result Comment: METH OD TRACEABLE TO IDMS STANDARD Performed By: #### C BCA, CMP ####[facility] ([id number])[address] [address], [place] [address] eGFR (CKD-EPI) NON-RACE DEPENDENT >90 Normal >59 [facility] Comment on above: Result Comment: Repo rted eGFR is based on theCKD-EPI 2020 equation that doesnot use a race coefficient. Performed By: #### C BCA, CMP ####[facility] ([id number])[address] [address], [place] [address] Glucose [Mass/Vol] 133 mg/dL High 65-99 [facility] Comment on above: Performed By: #### C BCA, CMP ####[facility] ([id number])[address], [address] [place] [address] Potassium [Moles/Vol] 3.7 mmol/L Normal 3.5-5.0 [facility] Comment on above: Performed By: #### C BCA, CMP ####[facility] ([id number])[address], [address] [place] [address] Protein [Mass/Vol] 6.0 g/dL Normal 6.0-8.0 [facility] Comment on above: Performed By: #### C BCA, CMP ####[facility] ([id number])[address], [address] [place] [address] Sodium [Moles/Vol] 149 mmol/L High 134-146 [facility] Comment on above: Performed By: #### C BCA, CMP ####[facility] ([id number])[address] [address] Urea nitrogen [Mass/Vol] 27 mg/dL Normal 5-27 [facility] Comment on above: Performed By: #### C BCA, CMP ####[facility] ([id number])[address] [address] Comprehensive metabolic pane dennis 04-13-2023 Albumin [Mass/Vol] 2.8 g/dL Low 3.2 - 5.3 g/dL [facility] ALP [Catalytic activity/Vol] 88 U/L 39 - 130 U/L [facility] ALT No additional P-5'-P [Catalytic activity/Vol] 74 U/L High 0 - 31 U/L [facility] Anion gap [Moles/Vol] 8 mmol/L 5 - 15 mmol/L [facility] AST [Catalytic activity/Vol] 28 U/L 0 - 41 U/L [facility] Bilirubin [Mass/Vol] 0.5 mg/dL 0.3 - 1 .2 mg/dL [facility] Calcium [Mass/Vol] 8.5 mg/dL 8.5 - 10. 5 mg/dL [facility] Chloride [Moles/Vol] 117 mmol/L High 98 - 10 9 mmol/L [facility] CO2 [Moles/Vol] 24 mmol/L 22 - 32 mmol/L [facility] Creatinine [Mass/Vol] 0.58 mg/dL 0.40 - 1.00 mg/dL [facility] eGFR (CKD-EPI)non-race dependent - PINF [facility] Glucose [Mass/Vol] 133 mg/dL High 65 - 99 mg/dL [facility] Interpretation and review of laboratory results Abnormal [facility] Potassium [Moles/Vol] 3.7 mmol/L 3.5 - 5.0 mmol/L [facility] Protein [Mass/Vol] 6.0 g/dL 6.0 - 8.0 g/dL [facility] Sodium [Moles/Vol] 149 mmol/L High 134 - 146 mmol/L [facility] Urea nitrogen [Mass/Vol] 27 mg/dL 5 - 27 mg/dL [facility] ELECTROLYTESon 04-13-2023 Anion gap [Moles/Vol] 10 mmol/L Normal 5-15 [facility] Comment on above: Performed By: #### E LEC ####[facility] ([id number])[address], [address] [place] [address] Chloride [Moles/Vol] 114 mmol/L High 98-109 [facility] Comment on above: Performed By: #### E LEC ####[facility] ([id number])[address], [address] [place] [address] CO2 [Moles/Vol] 24 mmol/L Normal 22-32 [facility] Comment on above: Performed By: #### E LEC ####[facility] ([id number])[address], [address] [place] [address] Potassium [Moles/Vol] 3.6 mmol/L Normal 3.5-5.0 [facility] Comment on above: Performed By: #### E LEC ####[facility] ([id number])[address], [facility] [address] [address] Sodium [Moles/Vol] 148 mmol/L High 134-146 [facility] Comment on above: Performed By: #### E LEC ####[facility] ([id number])[address] [address] Electrolyte panelon 04-13-19 24 Anion gap [Moles/Vol] 10 mmol/L 5 - 15 mmol/L [facility] Chloride [Moles/Vol] 114 mmol/L High 98 - 10 9 mmol/L [facility] CO2 [Moles/Vol] 24 mmol/L 22 - 32 mmol/L [facility] Interpretation and review of laboratory results Abnormal [facility] Potassium [Moles/Vol] 3.6 mmol/L 3.5 - 5.0 mmol/L [facility] Sodium [Moles/Vol] 148 mmol/L High 134 - 146 mmol/L [facility] CBC AND AUTO DIFFon 04-12-19 24 ABSOLUTE BASOPHIL 0.0 X10E9/L Normal 0.0-0.2 [facility] Comment on above: Performed By: #### C BCA ####[facility] ([id number])[address] [address] ABSOLUTE NEUTROPHIL 11.1 X10E9/L High 1.5-6.6 [facility] Comment on above: Performed By: #### C BCA ####[facility] ([id number])[address] [address] Basophils/100 WBC (Bld) 0.2 % Normal P [facility] Comment on above: Performed By: #### C BCA ####[facility] ([id number])[address] [address], [place] [address] Eosinophils (Bld) [#/Vol] 0.3 10*3/uL Normal 0.0-0.4 [facility] Comment on above: Performed By: #### C BCA ####[facility] ([id number])[address], [place] [address] Eosinophils/100 WBC (Bld) 2.6 % Normal [facility] Comment on above: Performed By: #### C BCA ####[facility] ([id number])[address] [address] [place] [address] Erythrocyte distribution width (RBC) [Ratio] 15.1 % High 11.5-15.0 [facility] Comment on above: Performed By: #### C BCA ####[facility] ([id number])[address] [address] [place] [address] Hematocrit (Bld) [Volume fraction] 32.7 % Low 35-47 [facility] Comment on above: Performed By: #### C BCA ####[facility] ([id number])[address] [address], [place] [address] Hemoglobin (Bld) [Mass/Vol] 10.8 g/dL Low 11.7-15.5 [facility] Comment on above: Performed By: #### C BCA ####[facility] ([id number])[address] [address] [place] [address] Lymphocytes (Bld) [#/Vol] 0.8 10*3/uL Low 1.0-3.5 [facility] Comment on above: Performed By: #### C BCA ####[facility] ([id number])[address] [address], [place] [address] Lymphocytes/100 WBC (Bld) 6.6 % Normal [place] [facility] Comment on above: Performed By: #### C BCA ####[facility] ([id number])[address], [place] [address] MCH (RBC) [Entitic mass] 28.7 pg Normal 27-34 [facility] Comment on above: Performed By: #### C BCA ####[facility] ([id number])[address], [place] [address] MCHC (RBC) [Mass/Vol] 33.1 g/dL Normal 32-36 [facility] Comment on above: Performed By: #### C BCA ####[facility] ([id number])[address] [place] [address] MCV (RBC) [Entitic vol] 87 fL Normal 80-100 [facility] Comment on above: Performed By: #### C BCA ####[facility] ([id number])[address], [address], [place] [address] Monocytes (Bld) [#/Vol] 0.5 10*3/uL Normal 0-0.9 [facility] Comment on above: Performed By: #### C BCA ####[facility] ([id number])[address], [place] [address] Monocytes/100 WBC (Bld) 4.1 % Normal [facility] Comment on above: Performed By: #### C BCA ####[facility] ([id number])[address] [place] [address] Neutrophils/100 WBC (Bld) 86.5 % Normal [facility] Comment on above: Performed By: #### C BCA ####[facility] ([id number])[address], [address], [place] [address] Platelet mean volume (Bld) [Entitic vol] 10.2 fL Normal 7-12 [facility] Comment on above: Performed By: #### C BCA ####[facility] ([id number])[address] [address] Platelets (Bld) [#/Vol] 92 10*3/uL Low 150-450 [facility] Comment on above: Performed By: #### C BCA ####[facility] ([id number])[address] [address] RBC COUNT 3.78 X10E12/L Low 3.80-5.20 [facility] Comment on above: Performed By: #### C BCA ####[facility] ([id number])[address] [address] WBC (Bld) [#/Vol] 12.9 10*3/uL High 4.0-11.0 [facility] Comment on above: Performed By: #### C BCA ####[facility] ([id number])[address] [address] CBC auto differentialon Basophils (Bld) [#/Vol] 0.0 10*3/uL [facility] Basophils/100 WBC (Bld) 0.2 % [facility] Eosinophils (Bld) [#/Vol] 0.3 10*3/uL [facility] Eosinophils/100 WBC (Bld) 2.6 % [facility] Erythrocyte distribution width (RBC) [Ratio] 15.1 % High 11.5 - 15.0 % [facility] Hematocrit (Bld) [Volume fraction] 32.7 % Low 35 - 47 % [facility] Hemoglobin (Bld) [Mass/Vol] 10.8 g/dL Low 11.7 - 15.5 g/dL [facility] Interpretation and review of laboratory results Abnormal [facility] Lymphocytes (Bld) [#/Vol] 0.8 10*3/uL Low [facility] Lymphocytes/100 WBC (Bld) 6.6 % [facility] MCH (RBC) [Entitic mass] 28.7 pg 27 - 34 pg [facility] MCHC (RBC) [Mass/Vol] 33.1 g/dL 32 - 3 6 g/dL [facility] MCV (RBC) [Entitic vol] 87 fL 80 - 100 fL [facility] Monocytes (Bld) [#/Vol] 0.5 10*3/uL [facility] Monocytes/100 WBC (Bld) 4.1 % P [facility] Neutrophils (Bld) [#/Vol] 11.1 10*3/uL High [facility] Neutrophils/100 WBC (Bld) 86.5 % [facility] Platelet mean volume (Bld) [Entitic vol] 10.2 fL 7 - 12 fL [facility] Platelets (Bld) [#/Vol] 92 10*3/uL Low P [facility] RBC (Bld) [#/Vol] 3.78 10*6/uL Low [facility] WBC corrected for nucl RBC Auto (Bld) [#/Vol] 12.9 High [facility] COMPREHENSIVE METABOLIC PANE Dennis 04-12-2023 Albumin [Mass/Vol] 2.8 g/dL Low 3.2-5.3 [facility] Comment on above: Performed By: #### C MP ####[facility] ([id number])[address], [place] [address] ALP [Catalytic activity/Vol] 85 U/L Normal 39-130 [facility] Comment on above: Performed By: #### C MP ####[facility] ([id number])[address], [place] [address] ALT [Catalytic activity/Vol] 88 U/L High 0-31 [facility] Comment on above: Performed By: #### C MP ####[facility] ([id number])[address] [address] Anion gap [Moles/Vol] 8 mmol/L Normal 5-15 [facility] Comment on above: Performed By: #### C MP ####[facility] ([id number])[address] [facility] [address], [place] [address] AST [Catalytic activity/Vol] 37 U/L Normal 0-41 [facility] Comment on above: Performed By: #### C MP ####[facility] ([id number])[address], [place] [address] Bilirubin [Mass/Vol] 0.6 mg/dL Normal 0.3-1.2 [facility] Comment on above: Performed By: #### C MP ####[facility] ([id number])[address] [address], [place] [address] Calcium [Mass/Vol] 8.6 mg/dL Normal 8.5-10.5 [facility] Comment on above: Performed By: #### C MP ####[facility] ([id number])[address] [address], [place] [address] Chloride [Moles/Vol] 115 mmol/L High 98-109 [facility] Comment on above: Performed By: #### C MP ####[facility] ([id number])[address] [address], [place] [address] CO2 [Moles/Vol] 23 mmol/L Normal 22-32 [facility] Comment on above: Performed By: #### C MP ####[facility] ([id number])[address] [address], [place] [address] Creatinine [Mass/Vol] 0.71 mg/dL Normal 0.40-1.00 [facility] Comment on above: Result Comment: METH OD TRACEABLE TO IDMS STANDARD Performed By: #### C MP ####[facility] ([id number])[address] [facility] [address], [place] [address] GFR/1.73 sq M.predicted among non-blacks MDRD (S/P/Bld) [Vol rate/Area] 86 mL/min/{1.73_m2} Normal >59 [facility] Comment on above: Result Comment: Repo rted eGFR is based on theCKD-EPI 2020 equation that doesnot use a race coefficient. Performed By: #### C MP ####[facility] ([id number])[address], [place] [address] Glucose [Mass/Vol] 130 mg/dL High 65-99 [facility] Comment on above: Performed By: #### C MP ####[facility] ([id number])[address], [place] [address] Potassium [Moles/Vol] 3.8 mmol/L Normal 3.5-5.0 [facility] Comment on above: Performed By: #### C MP ####[facility] ([id number])[address], [place] [address] Protein [Mass/Vol] 5.7 g/dL Low 6.0-8.0 [facility] Comment on above: Performed By: #### C MP ####[facility] ([id number])[address], [place] [address] Sodium [Moles/Vol] 146 mmol/L Normal 134-146 [facility] Comment on above: Performed By: #### C MP ####[facility] ([id number])[address], [place] [address] Urea nitrogen [Mass/Vol] 32 mg/dL High 5-27 [facility] Comment on above: Performed By: #### C MP ####[facility] ([id number])[address], [place] [address] CT CTA CAROTIDon 04-12-2023 CT CTA CAROTID Normal [facility] CT CTA HEADon 04-12-2023 CT CTA HEAD Normal [facility] CTA Carotid artery W contras t Mónica [facility] CTA Head Arteries W contrast Mónica [facility] (narrative[facility] Comprehensive metabolic pane dennis 04-12-2023 Albumin [Mass/Vol] 2.8 g/dL Low 3.2 - 5.3 g/dL [facility] ALP [Catalytic activity/Vol] 85 U/L 39 - 130 U/L [facility] ALT No additional P-5'-P [Catalytic activity/Vol] 88 U/L High 0 - 31 U/L [facility] Anion gap [Moles/Vol] 8 mmol/L 5 - 15 mmol/L [facility] AST [Catalytic activity/Vol] 37 U/L 0 - 41 U/L [facility] Bilirubin [Mass/Vol] 0.6 mg/dL 0.3 - 1 .2 mg/dL [facility] Calcium [Mass/Vol] 8.6 mg/dL 8.5 - 10. 5 mg/dL [facility] Chloride [Moles/Vol] 115 mmol/L High 98 - 10 9 mmol/L [facility] CO2 [Moles/Vol] 23 mmol/L 22 - 32 mmol/L [facility] Creatinine [Mass/Vol] 0.71 mg/dL 0.40 - 1.00 mg/dL [facility] eGFR (CKD-EPI)non-race dependent 86 - PINF [facility] Glucose [Mass/Vol] 130 mg/dL High 65 - 99 mg/dL [facility] Interpretation and review of laboratory results Abnormal [facility] Potassium [Moles/Vol] 3.8 mmol/L 3.5 - 5.0 mmol/L [facility] Protein [Mass/Vol] 5.7 g/dL Low 6.0 - 8.0 g/dL [facility] Sodium [Moles/Vol] 146 mmol/L 134 - 146 mmol/L [facility] Urea nitrogen [Mass/Vol] 32 mg/dL High 5 - 27 mg/dL [facility] ELECTROLYTESon 04-12-2023 Anion gap [Moles/Vol] 9 mmol/L Normal 5-15 [facility] Comment on above: Performed By: #### E LEC ####[facility] ([id number])[address], [place] [address] Chloride [Moles/Vol] 114 mmol/L High 98-109 [facility] Comment on above: Performed By: #### E LEC ####[facility] ([id number])[address], [place] [address] CO2 [Moles/Vol] 25 mmol/L Normal 22-32 [facility] Comment on above: Performed By: #### E LEC ####[facility] ([id number])[address], [place] [address] Potassium [Moles/Vol] 3.8 mmol/L Normal 3.5-5.0 [facility] Comment on above: Result Comment: SPEC IMEN HEMOLYZED, RESULTS INCREASEDMODERATELY HEMOLYZED Performed By: #### E LEC ####[facility] ([id number])[address], [place] [address] Sodium [Moles/Vol] 148 mmol/L High 134-146 [facility] Comment on above: Performed By: #### E LEC ####[facility] ([id number])[address], [place] [address] Anion gap [Moles/Vol] 8 mmol/L Normal 5-15 [facility] Comment on above: Performed By: #### E LEC ####[facility] ([id number])[address], [place] [address] Chloride [Moles/Vol] 115 mmol/L High 98-109 [facility] Comment on above: Performed By: #### E LEC ####[facility] ([id number])[address], [place] [address] CO2 [Moles/Vol] 27 mmol/L Normal 22-32 [facility] Comment on above: Performed By: #### E LEC ####[facility] ([id number])[address], [place] [address] Potassium [Moles/Vol] 3.7 mmol/L Normal 3.5-5.0 [facility] Comment on above: Performed By: #### E LEC ####[facility] ([id number])[address], [place] [address] Sodium [Moles/Vol] 150 mmol/L High 134-146 [facility] Comment on above: Performed By: #### E LEC ####[facility] ([id number])[address], [place] [address] Anion gap [Moles/Vol] 10 mmol/L Normal 5-15 [facility] Comment on above: Performed By: #### E LEC ####[facility] ([id number])[address], [place] [address] Chloride [Moles/Vol] 117 mmol/L High 98-109 [facility] Comment on above: Performed By: #### E LEC ####[facility] ([id number])[address], [place] [address] CO2 [Moles/Vol] 23 mmol/L Normal 22-32 [facility] Comment on above: Performed By: #### E LEC ####[facility] ([id number])[address], [place] [address] Potassium [Moles/Vol] 3.4 mmol/L Low 3.5-5.0 [facility] Comment on above: Performed By: #### E LEC ####[facility] ([id number])[address], [place] [address] Sodium [Moles/Vol] 150 mmol/L High 134-146 [facility] Comment on above: Performed By: #### E LEC ####[facility] ([id number])[address], [place] [address] Electrolyte panelon 04-12-19 Anion gap [Moles/Vol] 9 mmol/L 5 - 15 mmol/L [facility] Chloride [Moles/Vol] 114 mmol/L High 98 - 10 9 mmol/L [facility] CO2 [Moles/Vol] 25 mmol/L 22 - 32 mmol/L [facility] Interpretation and review of laboratory results Abnormal [facility] Potassium [Moles/Vol] 3.8 mmol/L 3.5 - 5.0 mmol/L [facility] Sodium [Moles/Vol] 148 mmol/L High 134 - 146 mmol/L [facility] Anion gap [Moles/Vol] 8 mmol/L 5 - 15 mmol/L [facility] Chloride [Moles/Vol] 115 mmol/L High 98 - 10 9 mmol/L [facility] CO2 [Moles/Vol] 27 mmol/L 22 - 32 mmol/L [facility] Interpretation and review of laboratory results Abnormal [facility] Potassium [Moles/Vol] 3.7 mmol/L 3.5 - 5.0 mmol/L [facility] Sodium [Moles/Vol] 150 mmol/L High 134 - 146 mmol/L [facility] Anion gap [Moles/Vol] 10 mmol/L 5 - 15 mmol/L [facility] Chloride [Moles/Vol] 117 mmol/L High 98 - 10 9 mmol/L [facility] CO2 [Moles/Vol] 23 mmol/L 22 - 32 mmol/L [facility] Interpretation and review of laboratory results Abnormal [facility] Potassium [Moles/Vol] 3.4 mmol/L Low 3.5 - 5.0 mmol/L [facility] Sodium [Moles/Vol] 150 mmol/L High 134 - 146 mmol/L [facility] Glucose Glucometer (BldC) [M ass/Vol]on 04-12-2023 Glucose [Mass/Vol] 121 mg/dL High 65-99 [facility] Glucose [Mass/Vol] 121 mg/dL High 65 - 99 mg/dL [facility] Interpretation and review of laboratory results Abnormal [facility] Immunoelectrophoresis for Th erapy Monitoringon 04-12-2023 IgA [Mass/Vol] 374 mg/dL 68 - 378 mg/dL [facility] IgG [Mass/Vol] 786 mg/dL 635 - 1741 mg/dL [facility] IgM [Mass/Vol] 38 mg/dL Low 45 - 281 mg/dL [facility] Immunoglobulin light chains.kappa.free (S) [Mass/Vol] 6.32 mg/dL High 0.33 - 1.94 mg/dL [facility] Immunoglobulin light chains.kappa.free/Immun oglobulin light chains.lambda (S) [Mass ratio] 1.71 High 0.26 - 1.65 [facility] Immunoglobulin light chains.lambda [Mass/Vol] 3.70 mg/dL High 0.57 - 2.63 mg/dL [facility] Laboratory - Pathologyon Pathologist interpretation (Bld) [Interp] SEE SEPARATE REPORT [facility] No Panel Informationon 04-12 Interpretation and review of laboratory results Abnormal [facility] Protein electrophoresis, ser umon 04-12-2023 Albumin [Mass/Vol] 2.4 g/dL Low 3.4 - 5.3 g/dL [facility] Alpha 1 globulin Elph [Mass/Vol] 0.5 g/dL High 0.1 - 0.4 g/dL [facility] Alpha 2 globulin Elph [Mass/Vol] 1.1 g/dL 0.4 - 1.1 g/dL [facility] Beta globulin Elph [Mass/Vol] 0.9 g/dL 0.5 - 1.2 g/dL [facility] Gamma globulin Elph [Mass/Vol] 0.7 g/dL 0.5 - 1.6 g/dL [facility] Protein [Mass/Vol] 5.7 g/dL Low 6.0 - 8.0 g/dL [facility] CBC AND AUTO DIFFon 04-11-19 ABSOLUTE BASOPHIL 0.1 X10E9/L Normal 0.0-0.2 [facility] Comment on above: Performed By: #### C BROOKLYN, CMP, ####[facility] ([id number])[address] [facility] [address], [place] [address] ABSOLUTE NEUTROPHIL 7.9 X10E9/L High 1.5-6.6 [facility] Comment on above: Performed By: #### Batsheva BARAHONA, CMP, ####[facility] ([id number])[address] [address] Basophils/100 WBC (Bld) 0.6 % Normal [facility] Comment on above: Performed By: #### Batsheva BARAHONA, CMP, ####[facility] ([id number])[address] [address], [place] [address] Eosinophils (Bld) [#/Vol] 0.4 10*3/uL Normal 0.0-0.4 [facility] Comment on above: Performed By: #### Batsheva BARAHONA, CMP, ####[facility] ([id number])[address] [address] Eosinophils/100 WBC (Bld) 3.8 % Normal [facility] Comment on above: Performed By: #### Batsheva BARAHONA, CMP, ####[facility] ([id number])[address] [address] Erythrocyte distribution width (RBC) [Ratio] 15.1 % High 11.5-15.0 [facility] Comment on above: Performed By: #### Batsheva BARAHONA, CMP, ####[facility] ([id number])[address] [place] [place] [address] Hematocrit (Bld) [Volume fraction] 34.0 % Low 35-47 [facility] Comment on above: Performed By: #### Batsheva BARAHONA [facility], ####[facility] ([id number])[address] [address] [address] Hemoglobin (Bld) [Mass/Vol] 11.4 g/dL Low 11.7-15.5 [facility] Comment on above: Performed By: #### C BROOKLYN [facility], ####[facility] ([id number])[address] [address] [place] [address] Lymphocytes (Bld) [#/Vol] 0.9 10*3/uL Low 1.0-3.5 [facility] Comment on above: Performed By: #### Batsheva BARAHONA [facility], ####[facility] ([id number])[address] [address] [place] [address] Lymphocytes/100 WBC (Bld) 8.9 % Normal [facility] Comment on above: Performed By: #### Batsheva BARAHONA [facility], ####[facility] ([id number])[address] [address] [place] [address] MCH (RBC) [Entitic mass] 28.9 pg Normal 27-34 [facility] Comment on above: Performed By: #### Batsheva BARAHONA [facility], ####[facility] ([id number])[address] [address], [place] [address] MCHC (RBC) [Mass/Vol] 33.5 g/dL Normal 32-36 [facility] Comment on above: Performed By: #### Batsheva BARAHONA CMP, ####[facility] ([id number])[address] [address] [address] MCV (RBC) [Entitic vol] 86 fL Normal 80-100 [facility] Comment on above: Performed By: #### C BROOKLYN, [facility], ####[facility] ([id number])[address], [place] [address] Monocytes (Bld) [#/Vol] 0.6 10*3/uL Normal 0-0.9 [facility] Comment on above: Performed By: #### C BROOKLYN, CMP, ####[facility] ([id number])[address] [place] [address] Monocytes/100 WBC (Bld) 6.0 % Normal [facility] Comment on above: Performed By: #### C BROOKLYN, CMP, ####[facility] ([id number])[address] [address] Neutrophils/100 WBC (Bld) 80.7 % Normal [facility] Comment on above: Performed By: #### Batsheva BARAHONA, [facility], ####[facility] ([id number])[address] [address], [place] [address] Platelet mean volume (Bld) [Entitic vol] 10.3 fL Normal 7-12 [facility] Comment on above: Performed By: #### C BROOKLYN, CMP, ####[facility] ([id number])[address] [address], [place] [address] Platelets (Bld) [#/Vol] 97 10*3/uL Low 150-450 [facility] Comment on above: Performed By: #### C BROOKLYN, CMP, ####[facility] ([id number])[address], [place] [address] RBC COUNT 3.95 X10E12/L Normal 3.80-5.20 [facility] Comment on above: Performed By: #### C BCA, CMP, [id number] ####[facility] ([id number])[address] [facility], [address] [place] [address] WBC (Bld) [#/Vol] 9.7 10*3/uL Normal 4.0-11.0 [facility] Comment on above: Performed By: #### Batsheva BARAHONA, CMP, [id number] ####[facility] ([id number])[address] [facility], [address] [place] [address] CBC auto differentialon Basophils (Bld) [#/Vol] 0.1 10*3/uL [facility] Basophils/100 WBC (Bld) 0.6 % [facility] Eosinophils (Bld) [#/Vol] 0.4 10*3/uL [facility] Eosinophils/100 WBC (Bld) 3.8 % [facility] Erythrocyte distribution width (RBC) [Ratio] 15.1 % High 11.5 - 15.0 % [facility] Hematocrit (Bld) [Volume fraction] 34.0 % Low 35 - 47 % [facility] Hemoglobin (Bld) [Mass/Vol] 11.4 g/dL Low 11.7 - 15.5 g/dL [facility] Interpretation and review of laboratory results Abnormal [facility] Lymphocytes (Bld) [#/Vol] 0.9 10*3/uL Low [facility] Lymphocytes/100 WBC (Bld) 8.9 % [facility] MCH (RBC) [Entitic mass] 28.9 pg 27 - 34 pg [facility] MCHC (RBC) [Mass/Vol] 33.5 g/dL 32 - 3 6 g/dL [facility] MCV (RBC) [Entitic vol] 86 fL 80 - 100 fL [facility] Monocytes (Bld) [#/Vol] 0.6 10*3/uL [facility] Monocytes/100 WBC (Bld) 6.0 % [facility] Neutrophils (Bld) [#/Vol] 7.9 10*3/uL High [facility] Neutrophils/100 WBC (Bld) 80.7 % [facility] Platelet mean volume (Bld) [Entitic vol] 10.3 fL 7 - 12 fL [facility] Platelets (Bld) [#/Vol] 97 10*3/uL Low P [facility] RBC (Bld) [#/Vol] 3.95 10*6/uL [facility] WBC corrected for nucl RBC Auto (Bld) [#/Vol] 9.7 [facility] COMPREHENSIVE METABOLIC PANE Dennis 04-11-2023 Albumin [Mass/Vol] 2.9 g/dL Low 3.2-5.3 [facility] Comment on above: Performed By: #### C BCA, CMP, 67854-5 ####[facility] ([id number])[address], [address] [place] [address] ALP [Catalytic activity/Vol] 91 U/L Normal 39-130 [facility] Comment on above: Performed By: #### Batsheva BCA, CMP, ####[facility] ([id number] [address] ALT [Catalytic activity/Vol] 94 U/L High 0-31 [facility] Comment on above: Performed By: #### C BCA, CMP, ####[facility] ([id number])[address], [address] [place] [address] Anion gap [Moles/Vol] 8 mmol/L Normal 5-15 [facility] Comment on above: Performed By: #### C BCA, CMP, ####[facility] ([id number])[address], [address] [place] [address] AST [Catalytic activity/Vol] 54 U/L High 0-41 [facility] Comment on above: Performed By: #### C BCA, CMP, ####[facility] ([id number])[address] [place] [address] Bilirubin [Mass/Vol] 0.6 mg/dL Normal 0.3-1.2 [facility] Comment on above: Performed By: #### C BROOK[place]N [facility], ####[facility] ([id number])[address] [address] [place] [address] Calcium [Mass/Vol] 8.6 mg/dL Normal 8.5-10.5 [facility] Comment on above: Performed By: #### C BROOK[place]N [facility], ####[facility] ([id number])[address] [address] [address] Chloride [Moles/Vol] 119 mmol/L High 98-109 [facility] Comment on above: Performed By: #### C BROOK[place]N [facility], ####[facility] ([id number])[address] [address] [address] CO2 [Moles/Vol] 23 mmol/L Normal 22-32 [facility] Comment on above: Performed By: #### C [facility]N [facility], ####[facility] ([id number])0 [address] [address] [place] [address] Creatinine [Mass/Vol] 0.88 mg/dL Normal 0.40-1.00 [facility] Comment on above: Result Comment: METH OD TRACEABLE TO IDMS STANDARD Performed By: #### C BROOK[place]N, [facility], ####[facility] ([id number])[address] [address] [place] [address] GFR/1.73 sq M.predicted among non-blacks MDRD (S/P/Bld) [Vol rate/Area] 66 mL/min/{1.73_m2} Normal >59 [facility] Comment on above: Result Comment: Repo rted eGFR is based on theCKD-EPI 2020 equation that doesnot use a race coefficient. Performed By: #### C BCA, CMP, ####[facility] ([id number])[address], [address] [place] [address] Glucose [Mass/Vol] 153 mg/dL High 65-99 [facility] Comment on above: Performed By: #### C BCA, CMP, 92904-5 ####[facility] ([id number])[address], [address] [place] [address] Potassium [Moles/Vol] 4.6 mmol/L Normal 3.5-5.0 [facility] Comment on above: Performed By: #### C BCA, CMP, 33578-8 ####[facility] ([id number])[address] [place] [address] Protein [Mass/Vol] 5.9 g/dL Low 6.0-8.0 [facility] Comment on above: Performed By: #### C BCA, CMP, 20628-1 ####[facility] ([id number])[address], [address] [place] [address] Sodium [Moles/Vol] 150 mmol/L High 134-146 [facility] Comment on above: Performed By: #### C BCA, CMP, 90141-6 ####[facility] ([id number])[address], [address], [place] [address] Urea nitrogen [Mass/Vol] 39 mg/dL High 5-27 [facility] Comment on above: Performed By: #### C BCA, CMP, 48069-6 ####[facility] ([id number])[address], [address] [place] [address] Clinical [facility] dennis 04-11-2023 Albumin [Mass/Vol] 2.9 g/dL Low 3.2 - 5.3 g/dL [facility] ALP [Catalytic activity/Vol] 91 U/L 39 - 130 U/L [facility] ALT No additional P-5'-P [Catalytic activity/Vol] 94 U/L High 0 - 31 U/L [facility] Anion gap [Moles/Vol] 8 mmol/L 5 - 15 mmol/L [facility] AST [Catalytic activity/Vol] 54 U/L High 0 - 41 U/L [facility] Bilirubin [Mass/Vol] 0.6 mg/dL 0.3 - 1 .2 mg/dL [facility] Calcium [Mass/Vol] 8.6 mg/dL 8.5 - 10. 5 mg/dL [facility] Chloride [Moles/Vol] 119 mmol/L High 98 - 10 9 mmol/L [facility] CO2 [Moles/Vol] 23 mmol/L 22 - 32 mmol/L [facility] Creatinine [Mass/Vol] 0.88 mg/dL 0.40 - 1.00 mg/dL [facility] eGFR (CKD-EPI)non-race dependent 66 - PINF [facility] Glucose [Mass/Vol] 153 mg/dL High 65 - 99 mg/dL [facility] Interpretation and review of laboratory results Abnormal [facility] Potassium [Moles/Vol] 4.6 mmol/L 3.5 - 5.0 mmol/L [facility] Protein [Mass/Vol] 5.9 g/dL Low 6.0 - 8.0 g/dL [facility] Sodium [Moles/Vol] 150 mmol/L High 134 - 146 mmol/L [facility] Urea nitrogen [Mass/Vol] 39 mg/dL High 5 - 27 mg/dL [facility] EGD Study observationon [facility] ELECTROLYTESon 04-11-2023 Anion gap [Moles/Vol] 10 mmol/L Normal 5-15 [facility] Comment on above: Performed By: #### E LEC ####[facility] ([id number])[address] [facility], [address] [place] [address] Chloride [Moles/Vol] 116 mmol/L High 98-109 [facility] Comment on above: Performed By: #### E LEC ####[facility] ([id number])[address], [place] [address] CO2 [Moles/Vol] 27 mmol/L Normal 22-32 [facility] Comment on above: Performed By: #### E LEC ####[facility] ([id number])[address], [address], [place] [address] Potassium [Moles/Vol] 3.6 mmol/L Normal 3.5-5.0 [facility] Comment on above: Performed By: #### E LEC ####[facility] ([id number])[address], [address], [place] [address] Sodium [Moles/Vol] 153 mmol/L High 134-146 [facility] Comment on above: Performed By: #### E LEC ####[facility] ([id number])[address], [address], [place] [address] Anion gap [Moles/Vol] 8 mmol/L Normal 5-15 [facility] Comment on above: Performed By: #### E LEC ####[facility] ([id number])[address], [address], [place] [address] Chloride [Moles/Vol] 117 mmol/L High 98-109 [facility] Comment on above: Performed By: #### E LEC ####[facility] ([id number])[address], [address], [place] [address] CO2 [Moles/Vol] 26 mmol/L Normal 22-32 [facility] Comment on above: Performed By: #### E LEC ####[facility] ([id number])[address], [place] [address] Potassium [Moles/Vol] 4.0 mmol/L Normal 3.5-5.0 [facility] Comment on above: Performed By: #### E LEC ####[facility] ([id number])[address], [address], [place] [address] Sodium [Moles/Vol] 151 mmol/L High 134-146 [facility] Comment on above: Performed By: #### E LEC ####[facility] ([id number])[address], [place] [address] Anion gap [Moles/Vol] 9 mmol/L Normal 5-15 [facility] Comment on above: Performed By: #### E LEC ####[facility] ([id number])[address], [address], [place] [address] Chloride [Moles/Vol] 118 mmol/L High 98-109 [facility] Comment on above: Performed By: #### E LEC ####[facility] ([id number])[address], [address], [place] [address] CO2 [Moles/Vol] 24 mmol/L Normal 22-32 [facility] Comment on above: Performed By: #### E LEC ####[facility] ([id number])[address], [address], [place] [address] Potassium [Moles/Vol] 4.0 mmol/L Normal 3.5-5.0 [facility] Comment on above: Performed By: #### E LEC ####[facility] ([id number])[address], [address], [place] [address] Sodium [Moles/Vol] 151 mmol/L High 134-146 [facility] Comment on above: Performed By: #### E LEC ####[facility] ([id number])[address], [address], [place] [address] Electrolyte panelon 04-11-19 24 Anion gap [Moles/Vol] 10 mmol/L 5 - 15 mmol/L [facility] Chloride [Moles/Vol] 116 mmol/L High 98 - 10 9 mmol/L [facility] CO2 [Moles/Vol] 27 mmol/L 22 - 32 mmol/L [facility] Interpretation and review of laboratory results Abnormal [facility] Potassium [Moles/Vol] 3.6 mmol/L 3.5 - 5.0 mmol/L [facility] Sodium [Moles/Vol] 153 mmol/L High 134 - 146 mmol/L [facility] Anion gap [Moles/Vol] 8 mmol/L 5 - 15 mmol/L [facility] Chloride [Moles/Vol] 117 mmol/L High 98 - 10 9 mmol/L [facility] CO2 [Moles/Vol] 26 mmol/L 22 - 32 mmol/L [facility] Interpretation and review of laboratory results Abnormal [facility] Potassium [Moles/Vol] 4.0 mmol/L 3.5 - 5.0 mmol/L [facility] Sodium [Moles/Vol] 151 mmol/L High 134 - 146 mmol/L [facility] Anion gap [Moles/Vol] 9 mmol/L 5 - 15 mmol/L [facility] Chloride [Moles/Vol] 118 mmol/L High 98 - 10 9 mmol/L [facility] CO2 [Moles/Vol] 24 mmol/L 22 - 32 mmol/L [facility] Interpretation and review of laboratory results Abnormal [facility] Potassium [Moles/Vol] 4.0 mmol/L 3.5 - 5.0 mmol/L [facility] Sodium [Moles/Vol] 151 mmol/L High 134 - 146 mmol/L [facility] Heparin PF4 ABon 04-11-2023 Heparin induced platelet IgG IA [OD] 0.112 NINF [facility] Heparin induced platelet IgG IA [OD]on 04-11-2023 [facility] MAGNESIUMon 04-11-2023 Magnesium [Mass/Vol] 2.1 mg/dL Normal 1.8-2.6 [facility] Comment on above: Performed By: #### C BCA, CMP, 11258-2 ####[facility] ([id number])[address], [place] [address] Magnesiumon 04-11-2023 Magnesium [Mass/Vol] 2.1 mg/dL 1.8 - 2 .6 mg/dL [facility] No Panel Informationon 04-11 [facility] XR CHEST 1 VWon 04-11-2023 XR CHEST 1 VW Normal [facility] XR Chest Single viewon 04-11 [facility] Radiology Study observation (narrative) [facility] ACUTE HEPATITIS PANELon ANTI HCV W/PCR REFLX Non-Reactive Normal NRCT [facility] Comment on above: Result Comment: If r ecent infection suspected, recommendrepeat testing (>2 months).Surfti-fd-lycghe ratio is <0.80. Performed By: #### I FELIBERTO, 47117-0, SPE, AHP, 51460-4, 88950-7, 94200-4, 5130-0, 01630-3, 43944-8, 12648-7 ####[facility] ([id number])[address] [facility], [address] [place] [address] HEPATITIS A IGM Non-Reactive Normal NRCT [facility] Comment on above: Performed By: #### I FELIBERTO, 97785-3, SPE, AHP, 09435-6, 88633-1, 47266-0, 5130-0, 64868-3, 29194-5, 43555-9 ####[facility] ([id number])[address] [facility], [address] [place] [address] HEPATITIS B CORE IGM Negative Normal NEG [facility] Comment on above: Performed By: #### I FELIBERTO, 55910-0, SPE, AHP, 31634-9, 00744-7, 03744-0, 5130-0, 90967-2, 01125-7, 50142-0 ####[facility] ([id number])[address], [address], [place] [address] HEPATITIS B SURF AG Negative Normal NEG [facility] Comment on above: Performed By: #### I FELIBERTO, 46465-2, SPE, AHP, 07545-2, 27378-3, 13682-9, 5130-0, 42312-5, 98804-1, 87717-0 ####[facility] ([id number])[address], [address] [place] [address] KAY Screen w/ Reflexon 04-10 Nuclear Ab IA Ql (S) Positive Abnormal Negativ e^N egative [facility] Anti-Chromatin IGGon 024 Chromatin Ab Ql [facility] Anti-DNA antibody, double-st randalmond 04-10-2023 DNA double strand Ab Qn (S) [facility] Anti-Ruelas AB IGGon 04-10-19 24 Ruelas extractable nuclear IgG Qn (S) [facility] CBC AND AUTO DIFFon 04-10-19 24 ABSOLUTE BASOPHIL 0.0 X10E9/L Normal 0.0-0.2 [facility] Comment on above: Performed By: #### C BROOKLYN CMP, 47284-5, 10807-1 ####[facility] ([id number])[address], [address] [place] [address] ABSOLUTE NEUTROPHIL 7.2 X10E9/L High 1.5-6.6 [facility] Comment on above: Performed By: #### Batsheva BARAHONA, CMP, , 90113-8 ####[facility] ([id number])[address], [address] [place] [address] Basophils/100 WBC (Bld) 0.3 % Normal P [facility] Comment on above: Performed By: #### C BCA, CMP, 94659-2, 82250-6 ####[facility] ([id number])[address], [address] [place] [address] Eosinophils (Bld) [#/Vol] 0.2 10*3/uL Normal 0.0-0.4 [facility] Comment on above: Performed By: #### C BROOKLYN, CMP, 17248-2, 44708-7 ####[facility] ([id number])[address] [address] [place] [address] Eosinophils/100 WBC (Bld) 2.7 % Normal [facility] Comment on above: Performed By: #### C BCA, CMP, 07266-9, 30982-2 ####[facility] ([id number])[address] [address] Erythrocyte distribution width (RBC) [Ratio] 15.0 % Normal 11.5-15.0 [facility] Comment on above: Performed By: #### C BROOKLYN, CMP, , 21436-5 ####[facility] ([id number])[address] [address] Hematocrit (Bld) [Volume fraction] 35.6 % Normal 35-47 [facility] Comment on above: Performed By: #### Batsheva BCA, CMP, , 91492-4 ####[facility] ([id number])[address] [address] Hemoglobin (Bld) [Mass/Vol] 12.0 g/dL Normal 11.7-15.5 [facility] Comment on above: Performed By: #### C BCA, CMP, , 38467-2 ####[facility] ([id number])[address] [address] Lymphocytes (Bld) [#/Vol] 0.8 10*3/uL Low 1.0-3.5 [facility] Comment on above: Performed By: #### C BCA, CMP, , 07539-3 ####[facility] ([id number])[address], [address] [place] [address] Lymphocytes/100 WBC (Bld) 9.1 % Normal [facility] Comment on above: Performed By: #### C BCA, CMP, 21536-5, 54569-1 ####[facility] ([id number])[address], [address] [place] [address] MCH (RBC) [Entitic mass] 29.0 pg Normal 27-34 [facility] Comment on above: Performed By: #### C BCA, CMP, 74234-6, 08343-8 ####[facility] ([id number])[address], [address] [place] [address] MCHC (RBC) [Mass/Vol] 33.6 g/dL Normal 32-36 [facility] Comment on above: Performed By: #### Batsheva BCA, CMP, , 21858-0 ####[facility] ([id number])[address], [address] [place] [address] MCV (RBC) [Entitic vol] 86 fL Normal 80-100 P [facility] Comment on above: Performed By: #### Batsheva BCA, CMP, , 82856-7 ####[facility] ([id number])[address], [address] [place] [address] Monocytes (Bld) [#/Vol] 0.7 10*3/uL Normal 0-0.9 [facility] Comment on above: Performed By: #### C BCA, CMP, 78568-0, 20769-4 ####[facility] ([id number])[address], [address] [place] [address] Monocytes/100 WBC (Bld) 7.7 % Normal P [facility] Comment on above: Performed By: #### C BCA, CMP, 99999-2, 46352-5 ####[facility] ([id number])[address] [address] Neutrophils/100 WBC (Bld) 80.2 % Normal [facility] Comment on above: Performed By: #### Batsheva BARAHONA, CMP, 91178-2, 03492-4 ####[facility] ([id number])[address] [address] Platelet mean volume (Bld) [Entitic vol] 9.7 fL Normal 7-12 [facility] Comment on above: Performed By: #### Batsheva BARAHONA, CMP, 97545-2, 15512-0 ####[facility] ([id number])[address] [address] Platelets (Bld) [#/Vol] 87 10*3/uL Low 150-450 [facility] Comment on above: Performed By: #### Batsheva BARAHONA, CMP, , 10034-2 ####[facility] ([id number])[address] [address] RBC COUNT 4.12 X10E12/L Normal 3.80-5.20 [facility] Comment on above: Performed By: #### Batsheva BARAHONA, CMP, , 03692-0 ####[facility] ([id number])[address] [address] WBC (Bld) [#/Vol] 8.9 10*3/uL Normal 4.0-11.0 [facility] Comment on above: Performed By: #### Batsheva BARAHONA, CMP, , 80469-7 ####[facility] ([id number])[address] [address] CBC auto differentialon Basophils (Bld) [#/Vol] 0.0 10*3/uL [facility] Basophils/100 WBC (Bld) 0.3 % P [facility] Eosinophils (Bld) [#/Vol] 0.2 10*3/uL [facility] Eosinophils/100 WBC (Bld) 2.7 % [facility] Erythrocyte distribution width (RBC) [Ratio] 15.0 % 11.5 - 15.0 % [facility] Hematocrit (Bld) [Volume fraction] 35.6 % 35 - 47 % [facility] Hemoglobin (Bld) [Mass/Vol] 12.0 g/dL 11.7 - 15.5 g/dL [facility] Interpretation and review of laboratory results Abnormal [facility] Lymphocytes (Bld) [#/Vol] 0.8 10*3/uL Low [facility] Lymphocytes/100 WBC (Bld) 9.1 % [facility] MCH (RBC) [Entitic mass] 29.0 pg 27 - 34 pg [facility] MCHC (RBC) [Mass/Vol] 33.6 g/dL 32 - 3 6 g/dL [facility] MCV (RBC) [Entitic vol] 86 fL 80 - 100 fL [facility] Monocytes (Bld) [#/Vol] 0.7 10*3/uL [facility] Monocytes/100 WBC (Bld) 7.7 % [facility] Neutrophils (Bld) [#/Vol] 7.2 10*3/uL High [facility] Neutrophils/100 WBC (Bld) 80.2 % [facility] Platelet mean volume (Bld) [Entitic vol] 9.7 fL 7 - 12 fL [facility] Platelets (Bld) [#/Vol] 87 10*3/uL Low P [facility] RBC (Bld) [#/Vol] 4.12 10*6/uL [facility] WBC corrected for nucl RBC Auto (Bld) [#/Vol] 8.9 [facility] COMPREHENSIVE METABOLIC PANE Dennis 04-10-2023 Albumin [Mass/Vol] 3.2 g/dL Normal 3.2-5.3 [facility] Comment on above: Performed By: #### C BCA, CMP, 66105-9, 94556-7 ####[facility] ([id number])[address], [place] [address] ALP [Catalytic activity/Vol] 109 U/L Normal 39-130 [facility] Comment on above: Performed By: #### C BCA, CMP, 56136-5, 58337-7 ####[facility] ([id number])[address], [place] [address] ALT [Catalytic activity/Vol] 88 U/L High 0-31 [facility] Comment on above: Performed By: #### C BCA, CMP, 92532-5, 90291-7 ####[facility] ([id number])[address], [place] [address] Anion gap [Moles/Vol] 8 mmol/L Normal 5-15 [facility] Comment on above: Performed By: #### C BCA, CMP, , 09085-6 ####[facility] ([id number])[address] [address] AST [Catalytic activity/Vol] 48 U/L High 0-41 [facility] Comment on above: Performed By: #### C BCA, CMP, , 54377-3 ####[facility] ([id number])[address], [place] [address] Bilirubin [Mass/Vol] 0.8 mg/dL Normal 0.3-1.2 [facility] Comment on above: Performed By: #### C BCA, CMP, 38726-0, 19357-3 ####[facility] ([id number])[address], [place] [address] Calcium [Mass/Vol] 8.6 mg/dL Normal 8.5-10.5 [facility] Comment on above: Performed By: #### C BCA, CMP, 46852-8, 65210-4 ####[facility] ([id number])[address], [place] [address] Chloride [Moles/Vol] 115 mmol/L High 98-109 [facility] Comment on above: Performed By: #### C BCA, CMP, 80895-4, 39225-8 ####[facility] ([id number])[address], [address] [place] [address] CO2 [Moles/Vol] 28 mmol/L Normal 22-32 [facility] Comment on above: Performed By: #### C BCA, CMP, 81597-7, 46809-8 ####[facility] ([id number])[address] [address], [place] [address] Creatinine [Mass/Vol] 0.80 mg/dL Normal 0.40-1.00 [facility] Comment on above: Result Comment: METH OD TRACEABLE TO IDMS STANDARD Performed By: #### C BCA, CMP, 76658-9, 86466-2 ####[facility] ([id number])[address] [address] GFR/1.73 sq M.predicted among non-blacks MDRD (S/P/Bld) [Vol rate/Area] 74 mL/min/{1.73_m2} Normal >59 [facility] Comment on above: Result Comment: Repo rted eGFR is based on theCKD-EPI 2020 equation that doesnot use a race coefficient. Performed By: #### C BCA, CMP, 09105-0, 10935-6 ####[facility] ([id number])[address] [address] [place] [address] Glucose [Mass/Vol] 113 mg/dL High 65-99 [facility] Comment on above: Performed By: #### C BCA, CMP, 27345-0, 07892-0 ####[facility] ([id number])[address], [place] [address] Potassium [Moles/Vol] 3.8 mmol/L Normal 3.5-5.0 [facility] Comment on above: Performed By: #### C BCA, CMP, 02938-3, 93075-1 ####[facility] ([id number])[address], [address], [place] [address] Protein [Mass/Vol] 6.4 g/dL Normal 6.0-8.0 [facility] Comment on above: Performed By: #### C BCA, CMP, 17098-0, 70002-0 ####[facility] ([id number])[address], [address] [place] [address] 31691 Sodium [Moles/Vol] 151 mmol/L High 134-146 [facility] Comment on above: Performed By: #### C BCA, CMP, 44360-5, 23682-3 ####[facility] ([id number])[address], [address] [place] [address] 17344 Urea nitrogen [Mass/Vol] 38 mg/dL High 5-27 [facility] Comment on above: Performed By: #### C BCA, CMP, 33366-7, 41892-6 ####[facility] ([id number])[address], [address] [place] [address]51 Chromatin Ab Qlon 04-10-2023 CHROMATIN AB IGG <0.2 Normal <1.0 [facility] Comment on above: Performed By: #### I FELIBERTO, 46498-7, SPE, AHP, 30264-3, 46031-0, 04676-5, 5130-0, 05775-0, 79882-8, 17906-5 ####[facility] ([id number])[address], [address] [place] [address] Clinical Pathologyon 024 Clinical Pathology Normal [facility] Comment on above: Result Comment: [facility] [address] [place] [address] Clinical Pathology ReportPatient Name:ELLEN CHAN:1945 (Age: 78)Gender:FTaken:4Reported:04/11/2023hysician(s):Willard Krueger M.D.Copy To: Rec. #:[id number]: #[id number] Pathologic DiagnosisHypoproteinemia with hypoalbuminemia, no monoclonal bands.Elevated free kappa and lambda light chains suggestive of renal impairment. Report Electronically Signed Outsps/04/11/2023Suparth Castañeda MDInterpretation performed [place] [address], License number: [id number].Clinical KtmrkrfI54.0, R00.1.SERUM PROTEIN ELECTROPHORESISSAMPLE NO: [id number] FRACTION CONCENTRATIONS (g/dL) PATIENT REFERENCE RANGEAlbumin 2.4 L 3.4 - 5.3Alpha-1 globulin 0.5 H 0.1 - 0.4Alpha-2 globulin 1.1 0.4 - 1.1Beta globulin 0.9 0.5 - 1.2Gamma globulin 0.7 0.5 - 1.6Total protein 5.7 L 6.0 - 8.0(Electrophoretic gels and densitometric tracings on file in lab.)SERUM IEPIMMUNOGLOBULIN LEVELS (mg/dL): IgG : 786 IgA : 374 IgM : [address]: 6.32 Free Lambda: 3.[address]/Lambda ratio: 1.71Specimen(s) Received1: Serum Protein Electrophoresis2: Serum IEPFee Codes(s):1; 23778-546; 93251-20 Clinical Pathology Blood Sme ar Review ClinicalOrdered By: Radha Perry on 04-10-2023 Pathologist review Pathologist comment (Bld) [Interp] NOTE [facility] Comprehensive metabolic pane dennis 04-10-2023 Albumin [Mass/Vol] 3.2 g/dL 3.2 - 5.3 g/dL [facility] ALP [Catalytic activity/Vol] 109 U/L 39 - 130 U/L [facility] ALT No additional P-5'-P [Catalytic activity/Vol] 88 U/L High 0 - 31 U/L [facility] Anion gap [Moles/Vol] 8 mmol/L 5 - 15 mmol/L [facility] AST [Catalytic activity/Vol] 48 U/L High 0 - 41 U/L [facility] Bilirubin [Mass/Vol] 0.8 mg/dL 0.3 - 1 .2 mg/dL [facility] Calcium [Mass/Vol] 8.6 mg/dL 8.5 - 10. 5 mg/dL [facility] Chloride [Moles/Vol] 115 mmol/L High 98 - 10 9 mmol/L [facility] CO2 [Moles/Vol] 28 mmol/L 22 - 32 mmol/L [facility] Creatinine [Mass/Vol] 0.80 mg/dL 0.40 - 1.00 mg/dL [facility] eGFR (CKD-EPI)non-race dependent 74 - PINF [facility] Glucose [Mass/Vol] 113 mg/dL High 65 - 99 mg/dL [facility] Interpretation and review of laboratory results Abnormal [facility] Potassium [Moles/Vol] 3.8 mmol/L 3.5 - 5.0 mmol/L [facility] Protein [Mass/Vol] 6.4 g/dL 6.0 - 8.0 g/dL [facility] Sodium [Moles/Vol] 151 mmol/L High 134 - 146 mmol/L [facility] Urea nitrogen [Mass/Vol] 38 mg/dL High 5 - 27 mg/dL [facility] DNA double strand Ab Qn (S)o n 04-10-2023 DOUBLE STRANDED DNA <1 Normal <5 [facility] Comment on above: Result Comment: ---- ------Interpretation--------<5 Negative5-9 Indeterminate>9 Positive Performed By: #### I FELIBERTO, 40679-5, SPE, AHP, 13485-2, 78327-3, 24536-1, 5130-0, 48075-8, 12573-0, 20982-6 ####[facility] ([id number])[address], [address], [place] [address] ELECTROLYTESon 04-10-2023 Anion gap [Moles/Vol] 10 mmol/L Normal 5-15 [facility] Comment on above: Performed By: #### E LEC ####[facility] ([id number])[address], [address], [place] [address] Chloride [Moles/Vol] 116 mmol/L High 98-109 [facility] Comment on above: Performed By: #### E LEC ####[facility] ([id number])[address], [address], [place] [address] CO2 [Moles/Vol] 23 mmol/L Normal 22-32 [facility] Comment on above: Performed By: #### E LEC ####[facility] ([id number])[address], [address], [place] [address] Potassium [Moles/Vol] 3.8 mmol/L Normal 3.5-5.0 [facility] Comment on above: Performed By: #### E LEC ####[facility] ([id number])[address], [address], [place] [address] Sodium [Moles/Vol] 149 mmol/L High 134-146 [facility] Comment on above: Performed By: #### E LEC ####[facility] ([id number])[address], [address], [place] [address] Anion gap [Moles/Vol] 11 mmol/L Normal 5-15 [facility] Comment on above: Performed By: #### E LEC ####[facility] ([id number])[address], [address] [address] Chloride [Moles/Vol] 115 mmol/L High 98-109 [facility] Comment on above: Performed By: #### E LEC ####[facility] ([id number])[address], [address] [address] CO2 [Moles/Vol] 24 mmol/L Normal 22-32 [facility] Comment on above: Performed By: #### E LEC ####[facility] ([id number])[address], [address], [place] [address] Potassium [Moles/Vol] 3.9 mmol/L Normal 3.5-5.0 [facility] Comment on above: Performed By: #### E LEC ####[facility] ([id number])[address], [address] [place] [address] Sodium [Moles/Vol] 150 mmol/L High 134-146 [facility] Comment on above: Performed By: #### E LEC ####[facility] ([id number])[address], [address] [place] [address] Electrolyte panelon 04-10-19 24 Anion gap [Moles/Vol] 10 mmol/L 5 - 15 mmol/L [facility] Chloride [Moles/Vol] 116 mmol/L High 98 - 10 9 mmol/L [facility] CO2 [Moles/Vol] 23 mmol/L 22 - 32 mmol/L [facility] Interpretation and review of laboratory results Abnormal [facility] Potassium [Moles/Vol] 3.8 mmol/L 3.5 - 5.0 mmol/L [facility] Sodium [Moles/Vol] 149 mmol/L High 134 - 146 mmol/L [facility] Anion gap [Moles/Vol] 11 mmol/L 5 - 15 mmol/L [facility] Chloride [Moles/Vol] 115 mmol/L High 98 - 10 9 mmol/L [facility] CO2 [Moles/Vol] 24 mmol/L 22 - 32 mmol/L [facility] Interpretation and review of laboratory results Abnormal [facility] Potassium [Moles/Vol] 3.9 mmol/L 3.5 - 5.0 mmol/L [facility] Sodium [Moles/Vol] 150 mmol/L High 134 - 146 mmol/L [facility] HIV 1&2 AB/AG Screen (P24 AG )on 04-10-2023 HIV 1+2 Ab+HIV1 p24 Ag IA Ql Non-Reactive Non-Reacti ve^Non-Berta ctive [facility] HIV 1+2 Ab+HIV1 p24 Ag IA Ql on 04-10-2023 HIV 1 and 2 Ab/Ag Screen Non-Reactive Normal NRCT [facility] Comment on above: Result Comment: This [...] HIV test resultsor diagnoses. Performed By: #### I FELIBERTO, 50824-2, SPE, AHP, 61896-3, 90012-5, 70415-8, 5130-0, 22165-9, 71409-4, 48661-4 ####[facility] ([id number])[address] [place] [address], [address] [place] [address] Heparin induced platelet IgG IA [OD]on 04-10-2023 HEPARIN PF4 ANTIBODY (HIT) 0.112 OD Normal <0.4 [facility] Comment on above: Result Comment: --- O.D. Interpretation--- < 0.400 Negative >= 0.400 Positive Performed By: #### 7 3818-7 ####[facility] ([id number])[address], [address] [place] [address] Hepatitis panel, acuteon HAV IgM IA Ql Non-Reactive Non-Reacti ve^Non-[place] ctive [facility] HBV core IgM IA Ql Negative Negative^ N egative [facility] HBV surface Ag IA Ql Negative Negativ e^N egative [facility] HCV Ab IA Ql Non-Reactive Non-Reacti ve^Non-[place] ctive [facility] IMMUNOELECTROPHORESIS FOR TH OTF MONITORINGon 04-10-2023 FREE ZOILA/LAMBD RATIO 1.71 High 0.26-1.65 [facility] Comment on above: Performed By: #### I FELIBERTO, 76561-9, SPE, AHP, 69884-0, 42497-8, 01674-2, 5130-0, 92093-8, 64984-7, 52001-7 ####[facility] ([id number])[address] [facility], [address] [place] [address] FREE KAPPA LT CHAINS 6.32 mg/dL High 0.33-1.94 [facility] Comment on above: Performed By: #### I FELIBERTO, 64296-3, SPE, AHP, 56945-5, 52952-7, 47829-0, 5130-0, 12723-9, 30081-7, 48519-0 ####[facility] ([id number])[address], [address] [place] [address] FREE LAMBDA LT CHAINS 3.70 mg/dL High 0.57-2.63 [facility] Comment on above: Performed By: #### I FELIBERTO, 63585-8, SPE, AHP, 37642-7, 15953-5, 51277-4, 5130-0, 82249-9, 52908-2, 47242-0 ####[facility] ([id number])[address], [address] [address] IgA [Mass/Vol] 374 mg/dL Normal 68-378 [facility] Comment on above: Performed By: #### I FELIBERTO, 97557-8, SPE, AHP, 50765-4, 53964-5, 67280-1, 5130-0, 68460-2, 72337-1, 70618-7 ####[facility] ([id number])[address], [address] [address] IgG [Mass/Vol] 786 mg/dL Normal 635-1741 [facility] Comment on above: Performed By: #### I FELIBERTO, 88126-7, SPE, AHP, 26433-1, 57042-2, 45673-6, 5130-0, 03310-8, 47112-3, 17269-6 ####[facility] ([id number])[address], [address] [place] [address] IgM [Mass/Vol] 38 mg/dL Low 45-281 [facility] Comment on above: Performed By: #### I FELIBERTO, 60110-3, SPE, AHP, 53211-8, 03835-5, 01004-7, 5130-0, 08269-6, 43568-6, 17997-1 ####[facility] ([id number])[address], [address] [place] [address], [place] [address] IMMUNE PROFILE INTERP SEE SEPARATE REPORT Normal [facility] Comment on above: Performed By: #### I FELIBERTO, 85965-9, SPE, AHP, 82141-7, 70072-3, 40891-3, 5130-0, 93129-1, 71509-2, 31451-7 ####[facility] ([id number])[address], [address], [place] [address] MAGNESIUMon 04-10-2023 Magnesium [Mass/Vol] 2.4 mg/dL Normal 1.8-2.6 [facility] Comment on above: Performed By: #### C BCA, CMP, 77842-5, 19370-6 ####[facility] ([id number])[address], [address] [place] [address] Magnesiumon 04-10-2023 Magnesium [Mass/Vol] 2.4 mg/dL 1.8 - 2 .6 mg/dL [facility] No Panel Informationon 04-10 [facility] Nuclear Ab IA Ql (S)on 04-10 Interpretation and review of laboratory results Abnormal [facility] KAY Screen w/reflex Positive Abnormal NEG [facility] Comment on above: Result Comment: Test ing performed using multiplex flowimmunoassay. Eleven different antigensassociated with systemic autoimmunediseases (dsDNA,Sm,Sm/SHEEP CLIPPER,SHEEP CLIPPER,Chromatin,SSA,SSB,Namrata-1,Scl70,Ribo P,Centromere B)are included in this screening test. Performed By: #### I FELIBERTO, 14377-1, SPE, AHP, 39964-4, 06181-5, 31783-8, 5130-0, 13614-9, 56420-1, 92736-5 ####[facility] ([id number])[address], [address] [place] [address] POTASSIUMon 04-10-2023 Potassium [Moles/Vol] 3.8 mmol/L Normal 3.5-5.0 [facility] Comment on above: Performed By: #### 2 823-3, 2951-2 ####[facility] ([id number])[address], [address] [place] [address] [address] comment (Bld) [Interp]Ordered By: Radha Perry on 04-10-2023 [facility] Potassiumon 04-10-2023 Potassium [Moles/Vol] 3.8 mmol/L 3.5 - 5.0 mmol/L [facility] Procalcitoninon 04-10-2023 Procalcitonin IA [Mass/Vol] 0.15 ng/mL High NINF - 0.05 ng/mL [facility] Procalcitonin IA [Mass/Vol]o n 04-10-2023 PROCALCITONIN 0.15 ng/mL High <0.05 [facility] Comment on above: Result Comment: NOTE <0.50 ng/mL - Low risk of severe sepsis and/or septic shock.<2.00 ng/mL - Recommend retesting within 6-24 hours.>2.00 ng/mL - High risk of sepsis and/or septic shock. Performed By: #### C BCA, CMP, 15412-5, 28517-3 ####[facility] ([id number])[address] [facility], [address] [place] [address] Interpretation and review of laboratory results Abnormal [facility] SHEEP CLIPPER AB IgGon 04-10-2023 Ribonucleoprotein extractable nuclear IgG Qn (S) 1.0 High [facility] Rheumatoid factoron 04-10-19 24 Rheumatoid factor Nephelometry Qn (S) 14 [facility] Rheumatoid factor Nephelomet ry Qn (S)on 04-10-2023 RHEUMATOID FACTOR 14 IU/mL Normal <20 [facility] Comment on above: Performed By: #### I FELIBERTO, 72552-2, SPE, AHP, 95941-7, 65680-2, 40302-6, 5130-0, 67722-0, 32437-9, 64284-8 ####[facility] ([id number])[address], [address], [place] [address] [facility] Ribonucleoprotein extractabl e nuclear IgG Qn (S)on 04-10-2023 Interpretation and review of laboratory results Abnormal [facility] SHEEP CLIPPER ANTIBODY IGG 1.0 AI High <1.0 [facility] Comment on above: Performed By: #### I FELIBERTO, 29474-0, SPE, AHP, 99327-2, 33167-9, 28377-7, 5130-0, 72601-4, 70943-3, 04350-5 ####[facility] ([id number])[address], [address], [place] [address] SERUM PROTEIN ELECTROPHORESI [facility] 04-10-2023 Albumin [Mass/Vol] 2.4 g/dL Low 3.4-5.3 [facility] Comment on above: Performed By: #### I FELIBERTO, 23126-6, SPE, AHP, 06560-2, 74581-4, 07701-4, 5130-0, 86733-5, 54836-5, 38720-5 ####[facility] ([id number])[address] [facility], [address] [place] [address] ALPHA 1 GLOBULIN 0.5 g/dL High 0.1-0.4 [facility] Comment on above: Performed By: #### I FELIBERTO, 67388-0, SPE, AHP, 82873-8, 83318-6, 71162-7, 5130-0, 87657-9, 62933-8, 97525-8 ####[facility] ([id number])[address], [address] [place] [address] ALPHA 2 GLOBULIN 1.1 g/dL Normal 0.4-1.1 [facility] Comment on above: Performed By: #### I FELIBERTO, 54177-8, SPE, AHP, 02111-9, 55380-1, 63845-7, 5130-0, 20678-9, 16856-2, 82830-8 ####[facility] ([id number])[address], [address], [place] [address] BETA GLOBULIN 0.9 g/dL Normal 0.5-1.2 [facility] Comment on above: Performed By: #### I FELIBERTO, 39871-3, SPE, AHP, 86977-0, 75552-5, 15378-4, 5130-0, 33290-0, 72619-2, 28380-6 ####[facility] ([id number])[address], [address], [place] [address] GAMMA GLOBULIN 0.7 g/dL Normal 0.5-1.6 [facility] Comment on above: Performed By: #### I FELIBERTO, 52402-2, SPE, AHP, 97550-6, 93198-4, 03699-2, 5130-0, 69526-7, 83941-7, ####[facility] ([id number])[address], [address] [place] [address] PROT. ELECTROPHORESIS INTERP SEE SEPARATE REPORT Normal [facility] Comment on above: Performed By: #### I FELIBERTO, 99340-0, SPE, AHP, 61701-9, 58829-1, 12446-7, 5130-0, 49902-8, 37840-4, ####[facility] ([id number])[address], [address] [place] [address] Protein [Mass/Vol] 5.7 g/dL Low 6.0-8.0 [facility] Comment on above: Performed By: #### I FELIBERTO, 95797-9, SPE, AHP, 09888-5, 74536-7, 66597-1, 5130-0, 98005-1, 65543-1, ####[facility] ([id number])[address], [address] [place] [address] SODIUMon 04-10-2023 Sodium [Moles/Vol] 152 mmol/L High 134-146 [facility] Comment on above: Performed By: #### 2 823-3, 2951-2 ####[facility] ([id number])[address], [address] [place] [address] Ruelsa extractable nuclear Ab +Ribonucleoprotein extractable nuclear IgG Qn (S)on 04-10-2023 RUELAS/SHEEP CLIPPER AB IGG <0.2 Normal <1.0 [facility] Comment on above: Performed By: #### I FELIBERTO, 64642-3, SPE, AHP, 02076-3, 19982-3, 77268-9, 5130-0, 59080-6, 07286-6, 05020-3 ####[facility] ([id number])[address], [address] [place] [address] Ruelas extractable nuclear Ig G Qn (S)on 04-10-2023 ANTI-RUELAS AB IGG <0.2 Normal <1.0 [facility] Comment on above: Performed By: #### I FELIBERTO, 32091-2, SPE, AHP, 40798-7, 46932-2, 47735-5, 5130-0, 38313-3, 68683-0, 16991-3 ####[facility] ([id number])[address], [address] [place] [address] Ruelas/SHEEP CLIPPER AB IgGon 4 Ruelas extractable nuclear Ab+Ribonucleoprotein extractable nuclear IgG Qn (S) NINF [facility] Sodiumon 04-10-2023 Sodium [Moles/Vol] 152 mmol/L High 134 - 146 mmol/L [facility] Sodium [Moles/Vol]on 024 Interpretation and review of laboratory results Abnormal [facility] US ABDOMEN LMTDon 04-10-2023 US ABDOMEN LMTD Normal [facility] US Abdomen limitedon 0[facility] US Abdomen limitedOrdered By : Julio Cesar Gilliam on 04-10-2023 [facility] Work Phone: XR CHEST 1 VWon 04-10-2023 XR CHEST 1 VW Normal [facility] XR Chest Single viewon 04-[facility] ([facility] APTTon 04-09-2023 aPTT Coag (PPP) [Time] 32 s [facility] CBC AND AUTO DIFFon 04-09-19 24 ABSOLUTE BASOPHIL 0.0 X10E9/L Normal 0.0-0.2 [facility] Comment on above: Performed By: #### C BROOKLYN, CMP ####[facility] ([id number])[address], [address] [place] [address] ABSOLUTE NEUTROPHIL 8.7 X10E9/L High 1.5-6.6 [facility] Comment on above: Performed By: #### C BROOKLYN, CMP ####[facility] ([id number])[address], [address], [place] [address] Basophils/100 WBC (Bld) 0.2 % Normal [facility] Comment on above: Performed By: #### C BROOKLYN, CMP ####[facility] ([id number])[address], [place] [address] Eosinophils (Bld) [#/Vol] 0.2 10*3/uL Normal 0.0-0.4 [facility] Comment on above: Performed By: #### C BROOKLYN, CMP ####[facility] ([id number])[address], [place] [address] Eosinophils/100 WBC (Bld) 1.9 % Normal [facility] Comment on above: Performed By: #### C BROOKLYN, CMP ####[facility] ([id number])[address], [address] [address] Erythrocyte distribution width (RBC) [Ratio] 15.4 % High 11.5-15.0 [facility] Comment on above: Performed By: #### C BROOKLYN, CMP ####[facility] ([id number])[address], [address] [place] [address] Hematocrit (Bld) [Volume fraction] 33.6 % Low 35-47 [facility] Comment on above: Performed By: #### C BROOKLYN, CMP ####[facility] ([id number])[address], [address], [place] [address] Hemoglobin (Bld) [Mass/Vol] 11.5 g/dL Low 11.7-15.5 [facility] Comment on above: Performed By: #### C BROOKLYN, CMP ####[facility] ([id number])[address], [place] [address] Lymphocytes (Bld) [#/Vol] 0.9 10*3/uL Low 1.0-3.5 [facility] Comment on above: Performed By: #### C BROOKLYN, CMP ####[facility] ([id number])[address] [place] [address] Lymphocytes/100 WBC (Bld) 8.3 % Normal [facility] Comment on above: Performed By: #### C BROOKLYN, CMP ####[facility] ([id number])[address], [address], [place] [address] MCH (RBC) [Entitic mass] 29.3 pg Normal 27-34 [facility] Comment on above: Performed By: #### C BROOKLYN, CMP ####[facility] ([id number])[address], [address], [place] [address] MCHC (RBC) [Mass/Vol] 34.1 g/dL Normal 32-36 [facility] Comment on above: Performed By: #### C BROOKLYN, CMP ####[facility] ([id number])[address], [place] [address] MCV (RBC) [Entitic vol] 86 fL Normal 80-100 [facility] Comment on above: Performed By: #### C BCA, CMP ####[facility] ([id number])[address], [address], [place] [address] Monocytes (Bld) [#/Vol] 0.7 10*3/uL Normal 0-0.9 [facility] Comment on above: Performed By: #### C BCA, CMP ####[facility] ([id number])[address], [place] [address] Monocytes/100 WBC (Bld) 6.9 % Normal [facility] Comment on above: Performed By: #### C BCA, CMP ####[facility] ([id number])[address], [address], [place] [address] Neutrophils/100 WBC (Bld) 82.7 % Normal [facility] Comment on above: Performed By: #### C BCA, CMP ####[facility] ([id number])[address], [place] [address] Platelet mean volume (Bld) [Entitic vol] 10.2 fL Normal 7-12 [facility] Comment on above: Performed By: #### C BCA, CMP ####[facility] ([id number])[address], [place] [address] Platelets (Bld) [#/Vol] 74 10*3/uL Low 150-450 [facility] Comment on above: Performed By: #### C BCA, CMP ####[facility] ([id number])[address], [place] [address] RBC COUNT 3.91 X10E12/L Normal 3.80-5.20 [facility] Comment on above: Performed By: #### C BCA, CMP ####[facility] ([id number])[address] [address], [place] [address] WBC (Bld) [#/Vol] 10.5 10*3/uL Normal 4.0-11.0 [facility] Comment on above: Performed By: #### C BCA, CMP ####[facility] ([id number])[address], [address], [place] [address] CBC auto differentialon Basophils (Bld) [#/Vol] 0.0 10*3/uL [facility] Basophils/100 WBC (Bld) 0.2 % [facility] Eosinophils (Bld) [#/Vol] 0.2 10*3/uL [facility] Eosinophils/100 WBC (Bld) 1.9 % [facility] Erythrocyte distribution width (RBC) [Ratio] 15.4 % High 11.5 - 15.0 % [facility] Hematocrit (Bld) [Volume fraction] 33.6 % Low 35 - 47 % [facility] Hemoglobin (Bld) [Mass/Vol] 11.5 g/dL Low 11.7 - 15.5 g/dL [facility] Interpretation and review of laboratory results Abnormal [facility] Lymphocytes (Bld) [#/Vol] 0.9 10*3/uL Low [facility] Lymphocytes/100 WBC (Bld) 8.3 % [facility] MCH (RBC) [Entitic mass] 29.3 pg 27 - 34 pg [facility] MCHC (RBC) [Mass/Vol] 34.1 g/dL 32 - 3 6 g/dL [facility] MCV (RBC) [Entitic vol] 86 fL 80 - 100 fL [facility] Monocytes (Bld) [#/Vol] 0.7 10*3/uL [facility] Monocytes/100 WBC (Bld) 6.9 % [facility] Neutrophils (Bld) [#/Vol] 8.7 10*3/uL High [facility] Neutrophils/100 WBC (Bld) 82.7 % [facility] Platelet mean volume (Bld) [Entitic vol] 10.2 fL 7 - 12 fL [facility] Platelets (Bld) [#/Vol] 74 10*3/uL Low P [facility] RBC (Bld) [#/Vol] 3.91 10*6/uL [facility] dica [facility] WBC corrected for nucl RBC Auto (Bld) [#/Vol] 10.5 [facility] COMPREHENSIVE METABOLIC PANE Dennis 04-09-2023 Albumin [Mass/Vol] 3.1 g/dL Low 3.2-5.3 [facility] Comment on above: Performed By: #### C BCA, CMP ####[facility] ([id number])[address], [place] [address] ALP [Catalytic activity/Vol] 107 U/L Normal 39-130 [facility] Comment on above: Performed By: #### C BCA, CMP ####[facility] ([id number])[address], [address], [place] [address] ALT [Catalytic activity/Vol] 64 U/L High 0-31 [facility] Comment on above: Performed By: #### C BCA, CMP ####[facility] ([id number])[address], [address], [place] [address] Anion gap [Moles/Vol] 7 mmol/L Normal 5-15 [facility] Comment on above: Performed By: #### C BCA, CMP ####[facility] ([id number])[address], [address], [place] [address] AST [Catalytic activity/Vol] 35 U/L Normal 0-41 [facility] Comment on above: Performed By: #### C BCA, CMP ####[facility] ([id number])[address], [address], [place] [address] Bilirubin [Mass/Vol] 0.7 mg/dL Normal 0.3-1.2 [facility] Comment on above: Performed By: #### C BCA, CMP ####[facility] ([id number])[address], [address], [place] [address] Calcium [Mass/Vol] 8.4 mg/dL Low 8.5-10.5 [facility] Comment on above: Performed By: #### C BCA, CMP ####[facility] ([id number])[address], [address] [place] [address] Chloride [Moles/Vol] 113 mmol/L High 98-109 [facility] Comment on above: Performed By: #### C BCA, CMP ####[facility] ([id number])[address], [address] [place] [address] CO2 [Moles/Vol] 26 mmol/L Normal 22-32 [facility] Comment on above: Performed By: #### C BCA, CMP ####[facility] ([id number])[address] [facility] [address], [place] [address] Creatinine [Mass/Vol] 0.74 mg/dL Normal 0.40-1.00 [facility] Comment on above: Result Comment: METH OD TRACEABLE TO IDMS STANDARD Performed By: #### C BCA, CMP ####[facility] ([id number])[address] [address], [place] [address] GFR/1.73 sq M.predicted among non-blacks MDRD (S/P/Bld) [Vol rate/Area] 82 mL/min/{1.73_m2} Normal >59 [facility] Comment on above: Result Comment: Repo rted eGFR is based on theCKD-EPI 2020 equation that doesnot use a race coefficient. Performed By: #### C BCA, CMP ####[facility] ([id number])[address] [address] [place] [address] Glucose [Mass/Vol] 155 mg/dL High 65-99 [facility] Comment on above: Performed By: #### C BCA, CMP ####[facility] ([id number])[address] [address] [place] [address] Potassium [Moles/Vol] 3.5 mmol/L Normal 3.5-5.0 [facility] Comment on above: Performed By: #### C BCA, CMP ####[facility] ([id number])[address], [address], [place] [address] Protein [Mass/Vol] 6.1 g/dL Normal 6.0-8.0 [facility] Comment on above: Performed By: #### C BCA, CMP ####[facility] ([id number])[address], [place] [address] Sodium [Moles/Vol] 146 mmol/L Normal 134-146 [facility] Comment on above: Performed By: #### C BCA, CMP ####[facility] ([id number])[address], [address], [place] [address] Urea nitrogen [Mass/Vol] 33 mg/dL High 5-27 [facility] Comment on above: Performed By: #### C BCA, CMP ####[facility] ([id number])[address], [address], [place] [address] CT [address] WO CONT[address] BRAIN WO CONT Normal [facility] CT Head WO contraston 2023 SECTRAPACS [facility] Radiology Study observation (narrative) [facility] CT Head WO contrastOrdered B y: Gabino Santos on 04-09-2023 [facility] Work Phone: Clinical Pathology Blood Sme ar Reviewon 04-09-2023 Clinical Pathology Blood Smear Review Normal [facility] Comment on above: Result Comment: [facility] [address] [place] [address] Clinical Pathology ReportPatient Name:ELLEN CHAN:1945 (Age: 78)Gender:FTaken:4Reported:4Physician(s):RY DE ANDA ([phone])Copy To: Rec. #:[id number]: #[id number] Pathologic DiagnosisPeripheral blood smear: Thrombocytopenia. See note.CommentNote: This is a chronic finding. The etiology is not evident. This may be due to splenic sequestration, ITP, liver disease, autoimmune disorders, drug or alcohol suppression, ineffective thrombopoiesis, etc. The remainder of the blood smear is unremarkable. Report Electronically Signed Outsps/04/10/2023Suparth Castañeda MDInterpretation performed at [employer], [address] [place] [address], License number: [id number].Clinical ZaavujlP20.0, R00.1 BLOOD SMEAR EVALUATIONCB (04/09/2023 01:58): WBC = 10.5X10E9/L; HGB = 11.5g/dL; HCT = 33.6%; MCV = 86fL; PLT = 46U77E2/LOTHER LAB DATA: Retic count = 0.9%, haptoglobin = 318 mg/dL, iron saturation = 21%, folate= 12 ng/mL, vit B12= 416pg/mLBLOOD SMEAR:Leukocytes: There is slight neutrophilia, but no left shifting, toxic granulation or blasts. Lymphocytes and monocytes are unremarkable.Erythrocytes: Slight anisocytosis, occasional ovalocytes.Platelets: Decreased in number, morphologically unremarkable, no clumping.Specimen(s) Received Blood Smear for ReviewFee Codes(s):1; [address] Cobalamin (Vitamin B12) [Mas s/Vol]on 04-09-2023 [facility] Comprehensive metabolic pane dennis 04-09-2023 Albumin [Mass/Vol] 3.1 g/dL Low 3.2 - 5.3 g/dL [facility] ALP [Catalytic activity/Vol] 107 U/L 39 - 130 U/L [facility] ALT No additional P-5'-P [Catalytic activity/Vol] 64 U/L High 0 - 31 U/L [facility] Anion gap [Moles/Vol] 7 mmol/L 5 - 15 mmol/L [facility] AST [Catalytic activity/Vol] 35 U/L 0 - 41 U/L [facility] Bilirubin [Mass/Vol] 0.7 mg/dL 0.3 - 1 .2 mg/dL [facility] Calcium [Mass/Vol] 8.4 mg/dL Low 8.5 - 10. 5 mg/dL [facility] Chloride [Moles/Vol] 113 mmol/L High 98 - 10 9 mmol/L [facility] CO2 [Moles/Vol] 26 mmol/L 22 - 32 mmol/L [facility] Creatinine [Mass/Vol] 0.74 mg/dL 0.40 - 1.00 mg/dL [facility] eGFR (CKD-EPI)non-race dependent 82 - PINF [facility] Glucose [Mass/Vol] 155 mg/dL High 65 - 99 mg/dL [facility] Interpretation and review of laboratory results Abnormal [facility] Potassium [Moles/Vol] 3.5 mmol/L 3.5 - 5.0 mmol/L [facility] Protein [Mass/Vol] 6.1 g/dL 6.0 - 8.0 g/dL [facility] Sodium [Moles/Vol] 146 mmol/L 134 - 146 mmol/L [facility] Urea nitrogen [Mass/Vol] 33 mg/dL High 5 - 27 mg/dL [facility] D-Dimeron 04-09-2023 Fibrin D-dimer DDU (PPP) [Mass/Vol] [address] High NINF [facility] Direct Coombson 04-09-2023 Polyspecific MELE Negative [facility] FERRITINon 04-09-2023 Ferritin [Mass/Vol] 618 ng/mL High 11-307 [facility] Comment on above: Performed By: #### F EPR, 2951-2, 2276-4, 2284-8, 2132-9 ####[facility] ([id number])[address] [place] [address], [address] [place] [address] Ferritinon 04-09-2023 Ferritin [Mass/Vol] 618 ng/mL High 11 - 307 ng/mL [facility] Ferritin [Mass/Vol]on 2023 Interpretation and review of laboratory results Abnormal [facility] Fibrin D-dimer DDU (PPP) [Ma ss/Vol]on 04-09-2023 D DIMER 34469 ng/mL DDU High <255 [facility] Comment on above: Result Comment: Resu lts >=255ng/mL DDU: Results may beindicative of the presence of VTE. The useof the Wells score and further diagnostictests should be considered. Elevated D-Dimerlevels can also be associated with DIC,neoplasm, , trauma and liver disease.Elevated levels of rheumatoid factor may leadto an overestimation of the D-Dimer level. Performed By: #### 4 8066-5, PINR, 03301-0 ####[facility] ([id number])[address] [facility], [address] [place] [address] Fibrinogenon 04-09-2023 Fibrinogen Coagulation.derived (PPP) [Mass/Vol] 602 mg/dL High 190 - 480 mg/dL [facility] Fibrinogen Coagulation.deriv ed (PPP) [Mass/Vol]on 04-09-2023 FIBRINOGEN 602 mg/dL High 190-480 [facility] Comment on above: Performed By: #### 4 679-7, 13141-6, 70427-1, 2823-3, 2532-0, 2951-2 ####[facility] ([id number])[address] [facility], [address] [place] [address] Interpretation and review of laboratory results Abnormal [facility] Folateon 04-09-2023 Folate [Mass/Vol] 12.0 ng/mL 5.8 - PINF ng/mL [facility] Folate [Mass/Vol]on 04-09-19 FOLIC ACID 12.0 ng/mL Normal >5.8 [facility] Comment on above: Result Comment: NEW REFERENCE RANGE Performed By: #### F EPR, 2951-2, 2276-4, 2284-8, 2131-9 ####[facility] ([id number])[address] [facility], [address] [place] [address] [facility] Haptoglobinon 04-09-2023 Haptoglobin Nephelometry [Mass/Vol] 318 mg/dL High 32 - 228 mg/dL [facility] Haptoglobin Nephelometry [Ma ss/Vol]on 04-09-2023 HAPTOGLOBIN 318 mg/dL High 32-228 [facility] Comment on above: Performed By: #### 4 679-7, 83280-1, 07542-6, 2823-3, 2532-0, 2951-2 ####[facility] ([id number])[address], [address] [place] [address] Interpretation and review of laboratory results Abnormal [facility] IRON PROFILEon 04-09-2023 Iron [Mass/Vol] 45 ug/dL Low 50-170 [facility] Comment on above: Performed By: #### F EPR, 2951-2, 2276-4, 2284-8, 2131-9 ####[facility] ([id number])[address], [address] [place] [address] IRON BINDING 217 ug/dL Low 250-425 [facility] Comment on above: Performed By: #### F EPR, 2951-2, 2276-4, 2284-8, 2131-9 ####[facility] ([id number])[address], [address] [place] [address] IRON SATURATION 21 % SATURATION Normal 15-50 [facility] Comment on above: Performed By: #### F EPR, 2951-2, 2276-4, 2284-8, 2131-9 ####[facility] ([id number])[address], [address] [place] [address] Ionized magnesiumon 04-09-19 24 Magnesium Ionized ISE (Bld) [Moles/Vol] 0.75 mmol/L High 0.45 - 0.74 mmol/L [facility] Iron and TIBCon 04-09-2023 Iron [Mass/Vol] 45 ug/dL Low 50 - 170 ug/dL [facility] Iron binding capacity [Mass/Vol] 217 ug/dL Low 250 - 425 ug/dL [facility] Iron saturation [Mass fraction] 21 [facility] LDHon 04-09-2023 LDH [Catalytic activity/Vol] 297 U/L High 100 - 235 U/L [facility] LDH [Catalytic activity/Vol] on 04-09-2023 LDH 297 U/L High 100-235 [facility] Comment on above: Performed By: #### 4 679-7, 48482-8, 16858-3, 2823-3, 2532-0, 2951-2 ####[facility] ([id number])[address] [facility], [address] [address] MAGNESIUMon 04-09-2023 Magnesium [Mass/Vol] 1.9 mg/dL Normal 1.8-2.6 [facility] Comment on above: Performed By: #### 2 823-3, 92477-3, 2951-2 ####[facility] ([id number])[address] [facility], [address] [place] [address] Magnesiumon 04-09-2023 Magnesium [Mass/Vol] 1.9 mg/dL 1.8 - 2 .6 mg/dL [facility] Magnesium Ionized ISE (Bld) [Moles/Vol]on 04-09-2023 Magnesium [Moles/Vol] 0.75 mmol/L High 0.45-0.74 [facility] Comment on above: Result Comment: NEW REFERENCE RANGE Performed By: #### 7 3572-0 ####[facility] ([id number])[address] [facility], [address] [address] Interpretation and review of laboratory results Abnormal [facility] No Panel Informationon 04-09 Interpretation and review of laboratory results Abnormal [facility] Interpretation and review of laboratory results Abnormal [facility] Interpretation and review of laboratory results Abnormal [facility] POTASSIUMon 04-09-2023 Potassium [Moles/Vol] 3.9 mmol/L Normal 3.5-5.0 [facility] Comment on above: Performed By: #### 4 679-7, 73032-7, 63482-3, 2823-3, 2532-0, 2951-2 ####[facility] ([id number])[address], [address] [place] [address] Potassium [Moles/Vol] 3.4 mmol/L Low 3.5-5.0 [facility] Comment on above: Performed By: #### 2 823-3, 36336-3, 2951-2 ####[facility] ([id number])[address] [facility], [address] [place] [address] PROTIME AND INRon 04-09-2023 INR Coag (PPP) [Relative time] 1.1 {INR} Normal 0.8-1.1 [facility] Comment on above: Performed By: #### 4 8066-5, PINR, 92093-5 ####[facility] ([id number])[address] [facility], [address] [place] [address] PT Coag (PPP) [Time] 13.3 s High 9.8-13.2 [facility] Comment on above: Performed By: #### 4 8066-5, PINR, 18649-6 ####[facility] ([id number])[address] comment (Bld) [Interp]on 04-09-2023 STAFF REVIEW NOTE Normal [facility] Comment on above: Result Comment: [facility] [address] [place] [address] Clinical Pathology ReportPatient Name:ELLEN CHAN:1945 (Age:78)Gender:FTaken:4Reported:4Physician(s):JAMIE DE ANDA([phone])Copy To: Rec. #:[id number] Pathologic DiagnosisPeripheral blood smear: Thrombocytopenia. See note.CommentNote: This is a chronic finding. The etiology is not evident. Thismay be due to splenic sequestration, ITP, liver disease, autoimmunedisorders, drug or alcohol suppression, ineffective thrombopoiesis,etc. The remainder of the blood smear is unremarkable. Report Electronically Signed Outsps/04/10/2023Gabriela Castañeda MDInterpretation performed at [employer], [address] [place] [address], License number: [id number].Clinical IcpqeayK80.0, R00.1 BLOOD SMEAR EVALUATIONCBC (04/09/2023 01:58): WBC = 10.5X10E9/L; HGB = 11.5g/dL;HCT = 33.6%; MCV = 86fL; PLT = 99Z18U8/LOTHER LAB DATA: Retic count = 0.9%, haptoglobin = 318 mg/dL, ironsaturation = 21%, folate= 12 ng/mL, vit B12= 416pg/mLBLOOD SMEAR:Leukocytes: There is slight neutrophilia, but no left shifting, toxicgranulation or blasts. Lymphocytes and monocytes are unremarkable.Erythrocytes: Slight anisocytosis, occasional ovalocytes.Platelets: Decreased in number, morphologically unremarkable, noclumping.Specimen(s) ReceivedBlood Smear for ReviewFee Codes(s):1; 979[address] Potassiumon 04-09-2023 Potassium [Moles/Vol] 3.9 mmol/L 3.5 - 5.0 mmol/L [facility] Potassium [Moles/Vol] 3.4 mmol/L Low 3.5 - 5.0 mmol/L [facility] Potassium [Moles/Vol]on Interpretation and review of laboratory results Abnormal [facility] Protime & INRon 04-09-2023 INR Coag (PPP) [Relative time] 1.1 {INR} [facility] PT Coag (PPP) [Time] 13.3 s High [facility] Reticulocyteson 04-09-2023 Reticulocytes/100 RBC (Bld) 0.9 % 0.4 - 2.2 % [facility] Reticulocytes/100 RBC (Bld)o n 04-09-2023 RETICULOCYTE COUNT 0.9 % Normal 0.4-2.2 [facility] Comment on above: Performed By: #### 4 679-7, 01070-5, 59160-2, 2823-3, 2532-0, 2951-2 ####[facility] ([id number])[address], [place] [address] [facility] SODIUMon 04-09-2023 Sodium [Moles/Vol] 151 mmol/L High 134-146 [facility] Comment on above: Performed By: #### 4 679-7, 17688-2, 51770-8, 2823-3, 2532-0, 2951-2 ####[facility] ([id number])[address], [address] [place] [address] Sodium [Moles/Vol] 149 mmol/L High 134-146 [facility] Comment on above: Performed By: #### F EPR, 2951-2, 2276-4, 2284-8, 2131-9 ####[facility] ([id number])[address], [address] [place] [address] Sodium [Moles/Vol] 146 mmol/L Normal 134-146 [facility] Comment on above: Performed By: #### 2 823-3, 94117-3, 2951-2 ####[facility] ([id number])[address] [place] [address] Sodium [Moles/Vol] 148 mmol/L High 134-146 [facility] Comment on above: Performed By: #### 2 951-2 ####[facility] ([id number])[address], [address], [place] [address] Sodiumon 04-09-2023 Sodium [Moles/Vol] 151 mmol/L High 134 - 146 mmol/L [facility] Sodium [Moles/Vol] 149 mmol/L High 134 - 146 mmol/L [facility] Sodium [Moles/Vol] 146 mmol/L 134 - 146 mmol/L [facility] VITAMIN B12on 04-09-2023 Cobalamin (Vitamin B12) [Mass/Vol] 416 pg/mL Normal 180-914 [facility] Comment on above: Performed By: #### F EPR, 2951-2, 2276-4, 2284-8, 2132-9 ####[facility] ([id number])[address], [address] [place] [address] Vitamin B12on 04-09-2023 Cobalamin (Vitamin B12) [Mass/Vol] 416 pg/mL 180 - 914 pg/mL [facility] XR CHEST 1 VWon 04-09-2023 XR CHEST 1 VW Normal [facility] XR CHEST 1 VW Normal [facility] XR Chest Single viewon 04-[facility] XR Chest Single viewOrdered By: Arianne Rodrigues on 04-09-2023 [facility] Work Phone: aPTT Coag (PPP) [Time]on aPTT Coag (Bld) [Time] 32 s Normal 26-37 [facility] Comment on above: Performed By: #### 4 8066-5, PINR, 48213-1 ####[facility] ([id number])[address], [address] [place] [address] CBC AND AUTO DIFFon 04-08-19 24 ABSOLUTE BASOPHIL 0.0 X10E9/L Normal 0.0-0.2 [facility] Comment on above: Performed By: #### C BCA, CMP ####[facility] ([id number])[address], [place] [address] ABSOLUTE NEUTROPHIL 10.2 X10E9/L High 1.5-6.6 [facility] Comment on above: Performed By: #### C BROOKLYN, CMP ####[facility] ([id number])[address], [address], [place] [address] Basophils/100 WBC (Bld) 0.1 % Normal [facility] Comment on above: Performed By: #### C BROOK[place], CMP ####[facility] ([id number])[address] [address], [place] [address] Eosinophils (Bld) [#/Vol] 0.1 10*3/uL Normal 0.0-0.4 [facility] Comment on above: Performed By: #### C BR[place], CMP ####[facility] ([id number])[address] [address], [place] [address] Eosinophils/100 WBC (Bld) 1.0 % Normal [facility] Comment on above: Performed By: #### C BROOK[place], CMP ####[facility] ([id number])[address] [address] [address] Erythrocyte distribution width (RBC) [Ratio] 15.9 % High 11.5-15.0 [facility] Comment on above: Performed By: #### C BROOK[place], CMP ####[facility] ([id number])[address] [address] Hematocrit (Bld) [Volume fraction] 36.4 % Normal 35-47 [facility] Comment on above: Performed By: #### C BROOK[place]N, CMP ####[facility] ([id number])[address] [address] Hemoglobin (Bld) [Mass/Vol] 12.0 g/dL Normal 11.7-15.5 [facility] Comment on above: Performed By: #### C BROOK[place], CMP ####[facility] ([id number])[address] [address] [address] Lymphocytes (Bld) [#/Vol] 0.9 10*3/uL Low 1.0-3.5 [facility] Comment on above: Performed By: #### C BCA, CMP ####[facility] ([id number])[address] [address] Lymphocytes/100 WBC (Bld) 7.3 % Normal [facility] Comment on above: Performed By: #### C BCA, CMP ####[facility] ([id number])[address] [address] [address] MCH (RBC) [Entitic mass] 28.7 pg Normal 27-34 [facility] Comment on above: Performed By: #### C BCA, CMP ####[facility] ([id number])[address] [address], [place] [address] MCHC (RBC) [Mass/Vol] 33.0 g/dL Normal 32-36 [facility] Comment on above: Performed By: #### C BCA, CMP ####[facility] ([id number])[address] [address] [address] MCV (RBC) [Entitic vol] 87 fL Normal 80-100 [facility] Comment on above: Performed By: #### C BCA, CMP ####[facility] ([id number])[address] [address], [place] [address] Monocytes (Bld) [#/Vol] 0.7 10*3/uL Normal 0-0.9 [facility] Comment on above: Performed By: #### C BCA, CMP ####[facility] ([id number])[address], [place] [address] Monocytes/100 WBC (Bld) 6.0 % Normal [facility] Comment on above: Performed By: #### C BROOK[place]N, CMP ####[facility] ([id number])[address] [address] Neutrophils/100 WBC (Bld) 85.6 % Normal [facility] Comment on above: Performed By: #### C BROOK[place]N, CMP ####[facility] ([id number])[address] [address] Platelet mean volume (Bld) [Entitic vol] 10.0 fL Normal 7-12 [facility] Comment on above: Performed By: #### C BROOK[place]N, CMP ####[facility] ([id number])[address] [address] Platelets (Bld) [#/Vol] 66 10*3/uL Low 150-450 P [facility] Comment on above: Performed By: #### Batsheva BARAHONA, CMP ####[facility] ([id number])[address] [address] RBC COUNT 4.18 X10E12/L Normal 3.80-5.20 [facility] Comment on above: Performed By: #### C BROOKLYN, CMP ####[facility] ([id number])[address] [address] WBC (Bld) [#/Vol] 11.8 10*3/uL High 4.0-11.0 [facility] Comment on above: Performed By: #### C BROOKLYN, CMP ####[facility] ([id number])[address] [address] CBC auto differentialon 01-0 Basophils (Bld) [#/Vol] 0.0 10*3/uL [facility] Basophils/100 WBC (Bld) 0.1 % P [facility] Eosinophils (Bld) [#/Vol] 0.1 10*3/uL [facility] Eosinophils/100 WBC (Bld) 1.0 % [facility] Erythrocyte distribution width (RBC) [Ratio] 15.9 % High 11.5 - 15.0 % [facility] Hematocrit (Bld) [Volume fraction] 36.4 % 35 - 47 % [facility] Hemoglobin (Bld) [Mass/Vol] 12.0 g/dL 11.7 - 15.5 g/dL [facility] Interpretation and review of laboratory results Abnormal [facility] Lymphocytes (Bld) [#/Vol] 0.9 10*3/uL Low [facility] Lymphocytes/100 WBC (Bld) 7.3 % [facility] MCH (RBC) [Entitic mass] 28.7 pg 27 - 34 pg [facility] MCHC (RBC) [Mass/Vol] 33.0 g/dL 32 - 3 6 g/dL [facility] MCV (RBC) [Entitic vol] 87 fL 80 - 100 fL [facility] Monocytes (Bld) [#/Vol] 0.7 10*3/uL [facility] Monocytes/100 WBC (Bld) 6.0 % P [facility] Neutrophils (Bld) [#/Vol] 10.2 10*3/uL High [facility] Neutrophils/100 WBC (Bld) 85.6 % [facility] Platelet mean volume (Bld) [Entitic vol] 10.0 fL 7 - 12 fL [facility] Platelets (Bld) [#/Vol] 66 10*3/uL Low P [facility] RBC (Bld) [#/Vol] 4.18 10*6/uL [facility] WBC corrected for nucl RBC Auto (Bld) [#/Vol] 11.8 High [facility] COMPREHENSIVE METABOLIC PANE Dennis 04-08-2023 Albumin [Mass/Vol] 3.2 g/dL Normal 3.2-5.3 [facility] Comment on above: Performed By: #### C BCA, CMP ####[facility] ([id number])[address] [facility], [address], [place] [address] ALP [Catalytic activity/Vol] 105 U/L Normal 39-130 [facility] Comment on above: Performed By: #### C BCA, CMP ####[facility] ([id number])[address], [address], [place] [address] ALT [Catalytic activity/Vol] 60 U/L High 0-31 [facility] Comment on above: Performed By: #### C BCA, CMP ####[facility] ([id number])[address], [address], [place] [address] Anion gap [Moles/Vol] 12 mmol/L Normal 5-15 [facility] Comment on above: Performed By: #### C BCA, CMP ####[facility] ([id number])[address], [address], [place] [address] AST [Catalytic activity/Vol] 40 U/L Normal 0-41 [facility] Comment on above: Performed By: #### C BCA, CMP ####[facility] ([id number])[address], [address], [place] [address] Bilirubin [Mass/Vol] 0.7 mg/dL Normal 0.3-1.2 [facility] Comment on above: Performed By: #### C BCA, CMP ####[facility] ([id number])[address], [address], [place] [address] Calcium [Mass/Vol] 8.9 mg/dL Normal 8.5-10.5 [facility] Comment on above: Performed By: #### C BCA, CMP ####[facility] ([id number])[address], [address], [place] [address] Chloride [Moles/Vol] 117 mmol/L High 98-109 [facility] Comment on above: Performed By: #### C BCA, CMP ####[facility] ([id number])[address], [address], [place] [address] CO2 [Moles/Vol] 29 mmol/L Normal 22-32 [facility] Comment on above: Performed By: #### C BCA, CMP ####[facility] ([id number])[address] [address], [place] [address] Creatinine [Mass/Vol] 0.97 mg/dL Normal 0.40-1.00 [facility] Comment on above: Result Comment: METH OD TRACEABLE TO IDMS STANDARD Performed By: #### C BCA, CMP ####[facility] ([id number])[address] [address] GFR/1.73 sq M.predicted among non-blacks MDRD (S/P/Bld) [Vol rate/Area] 59 mL/min/{1.73_m2} Low >59 [facility] Comment on above: Result Comment: Repo rted eGFR is based on theCKD-EPI 2020 equation that doesnot use a race coefficient. Performed By: #### C BCA, CMP ####[facility] ([id number])[address] [address] [place] [address] Glucose [Mass/Vol] 135 mg/dL High 65-99 [facility] Comment on above: Performed By: #### C BCA, CMP ####[facility] ([id number])[address] [address] Potassium [Moles/Vol] 3.5 mmol/L Normal 3.5-5.0 [facility] Comment on above: Performed By: #### C BCA, CMP ####[facility] ([id number])[address] [address] Protein [Mass/Vol] 6.4 g/dL Normal 6.0-8.0 [facility] Comment on above: Performed By: #### C BCA, CMP ####[facility] ([id number])[address], [place] [address] Sodium [Moles/Vol] 158 mmol/L High 134-146 [facility] Comment on above: Performed By: #### C BCA, CMP ####[facility] ([id number])[address], [address], [place] [address] Urea nitrogen [Mass/Vol] 54 mg/dL High 5-27 [facility] Comment on above: Performed By: #### C BCA, CMP ####[facility] ([id number])[address], [address], [place] [address] Comprehensive metabolic pane dennis 04-08-2023 Albumin [Mass/Vol] 3.2 g/dL 3.2 - 5.3 g/dL [facility] ALP [Catalytic activity/Vol] 105 U/L 39 - 130 U/L [facility] ALT No additional P-5'-P [Catalytic activity/Vol] 60 U/L High 0 - 31 U/L [facility] Anion gap [Moles/Vol] 12 mmol/L 5 - 15 mmol/L [facility] AST [Catalytic activity/Vol] 40 U/L 0 - 41 U/L [facility] Bilirubin [Mass/Vol] 0.7 mg/dL 0.3 - 1 .2 mg/dL [facility] Calcium [Mass/Vol] 8.9 mg/dL 8.5 - 10. 5 mg/dL [facility] Chloride [Moles/Vol] 117 mmol/L High 98 - 10 9 mmol/L [facility] CO2 [Moles/Vol] 29 mmol/L 22 - 32 mmol/L [facility] Creatinine [Mass/Vol] 0.97 mg/dL 0.40 - 1.00 mg/dL [facility] eGFR (CKD-EPI)non-race dependent 59 Low - PINF [facility] Glucose [Mass/Vol] 135 mg/dL High 65 - 99 mg/dL [facility] Interpretation and review of laboratory results Abnormal [facility] Potassium [Moles/Vol] 3.5 mmol/L 3.5 - 5.0 mmol/L [facility] Protein [Mass/Vol] 6.4 g/dL 6.0 - 8.0 g/dL [facility] Sodium [Moles/Vol] 158 mmol/L High 134 - 146 mmol/L [facility] Urea nitrogen [Mass/Vol] 54 mg/dL High 5 - 27 mg/dL [facility] No Panel Informationon 04-08 [facility] POTASSIUMon 04-08-2023 Potassium [Moles/Vol] 3.5 mmol/L Normal 3.5-5.0 [facility] Comment on above: Performed By: #### 2 823-3, 2951-2 ####[facility] ([id number])[address] [facility], [address] [address] Potassiumon 04-08-2023 Potassium [Moles/Vol] 3.5 mmol/L 3.5 - 5.0 mmol/L [facility] SODIUMon 04-08-2023 Sodium [Moles/Vol] 152 mmol/L High 134-146 [facility] Comment on above: Performed By: #### 2 951-2 ####[facility] ([id number])[address] [facility], [address] [address] Sodium [Moles/Vol] 155 mmol/L High 134-146 [facility] Comment on above: Performed By: #### 2 823-3, 2951-2 ####[facility] ([id number])[address] [facility], [address] [address] Sodiumon 04-08-2023 Sodium [Moles/Vol] 148 mmol/L High 134 - 146 mmol/L [facility] Sodium [Moles/Vol] 152 mmol/L High 134 - 146 mmol/L [facility] Sodium [Moles/Vol] 155 mmol/L High 134 - 146 mmol/L [facility] Sodium [Moles/Vol]on 024 Interpretation and review of laboratory results Abnormal [facility] Interpretation and review of laboratory results Abnormal [facility] Interpretation and review of laboratory results Abnormal [facility] XR CHEST 1 VWon 04-08-2023 XR CHEST 1 VW Normal [facility] XR Chest Single viewon 04-08 [facility] Radiology Study observation (narrative) [facility] ARTERIAL BLOOD GASon 023 SHIRAZ'S TEST Pass Normal [facility] Comment on above: Performed By: #### A BG ####[facility] ([id number])[address] [place] [address] Base excess Calc (Bld) [Moles/Vol] 4.0 mmol/L High 0.0-2.0 [facility] Comment on above: Performed By: #### A BG ####[facility] ([id number])[address] [place] [address] Body temperature 98.6 [degF] Normal 37.0 [facility] Comment on above: Performed By: #### A BG ####[facility] ([id number])[address] [place] [address] HCO3 (Bld) [Moles/Vol] 26.6 mmol/L High 22-26 [facility] Comment on above: Performed By: #### A BG ####[facility] ([id number])[address] [place] [address] INSP. O2 CONC. 44 % Normal [facility] Comment on above: Performed By: #### A BG ####[facility] ([id number])[address] [place] [address] Oxygen (Bld) [Partial pressure] 67 mm[Hg] Low 80-100 [facility] Comment on above: Performed By: #### A BG ####[facility] ([id number])[address] [place] [address] Oxygen saturation in Blood 95.0 % Normal >90 [facility] Comment on above: Performed By: #### A BG ####[facility] ([id number])[address] [place] [address] [facility] Comment on above: Performed By: #### A BG ####[facility] ([id number])[address] [place] [address] PCO2 33.3 MMHG Low 35-45 [facility] Comment on above: Performed By: #### A BG ####[facility] ([id number])[address] [place] [address] pH (Bld) 7.510 [pH] High 7.350-7.45 0 [facility] Comment on above: Performed By: #### A BG ####[facility] ([id number])[address] [place] [address] SAMPLE SITE RRad Normal [facility] Comment on above: Performed By: #### A BG ####[facility] ([id number])[address] [place] [address] SAMPLE TYPE ARTERIAL Normal [facility] Comment on above: Performed By: #### A BG ####[facility] ([id number])[address] [place] [address] Blood Gas, Arterialon 2022 Arterial patency Wrist artery --pre arterial puncture Pass [facility] Base excess Calc (Bld) [Moles/Vol] 4.0 mmol/L High [facility] CO2 (Bld) [Partial pressure] 33.3 mm[Hg] Low [facility] HCO3 (Bld) [Moles/Vol] 26.6 mmol/L High P [facility] Interpretation and review of laboratory results Abnormal [facility] Oxygen (Bld) [Partial pressure] 67 mm[Hg] Low [facility] Oxygen therapy source and amount [CARE] NC [facility] Oxygen/Inspired gas setting [Volume Fraction] Ventilator 44 % [facility] pH (Bld) 7.510 [pH] High 7.350 - 7.450 [facility] Specimen site Narrative RRad P [facility] Specimen type Nom (Spec) ARTERIAL [facility] CBC AND AUTO DIFFon 04-07-20 ABSOLUTE BASOPHIL 0.0 X10E9/L Normal 0.0-0.2 [facility] Comment on above: Performed By: #### C BCA, CMP ####[facility] ([id number])[address], [address] [place] [address] ABSOLUTE NEUTROPHIL 13.3 X10E9/L High 1.5-6.6 [facility] Comment on above: Performed By: #### C [place], CMP ####[facility] ([id number])[address], [address] [place] [address] Basophils/100 WBC (Bld) 0.1 % Normal [facility] Comment on above: Performed By: #### C BCA, CMP ####[facility] ([id number])[address], [address] [place] [address] Eosinophils (Bld) [#/Vol] 0.0 10*3/uL Normal 0.0-0.4 [facility] Comment on above: Performed By: #### C BCA, CMP ####[facility] ([id number])[address], [address] [place] [address] Eosinophils/100 WBC (Bld) 0.0 % Normal [facility] Comment on above: Performed By: #### C BCA, CMP ####[facility] ([id number])[address], [address] [place] [address] Erythrocyte distribution width (RBC) [Ratio] 15.9 % High 11.5-15.0 [facility] Comment on above: Performed By: #### C BCA, CMP ####[facility] ([id number])[address] [address], [place] [address] Hematocrit (Bld) [Volume fraction] 38.6 % Normal 35-47 [facility] Comment on above: Performed By: #### C BCA, CMP ####[facility] ([id number])[address] [address], [place] [address] Hemoglobin (Bld) [Mass/Vol] 12.7 g/dL Normal 11.7-15.5 [facility] Comment on above: Performed By: #### C BCA, CMP ####[facility] ([id number])[address] [address], [place] [address] Lymphocytes (Bld) [#/Vol] 0.7 10*3/uL Low 1.0-3.5 [facility] Comment on above: Performed By: #### C [place], CMP ####[facility] ([id number])[address] [address], [place] [address] Lymphocytes/100 WBC (Bld) 4.5 % Normal [facility] Comment on above: Performed By: #### C BCA, CMP ####[facility] ([id number])[address] [address], [place] [address] MCH (RBC) [Entitic mass] 28.6 pg Normal 27-34 [facility] Comment on above: Performed By: #### C BCA, CMP ####[facility] ([id number])[address] [address], [place] [address] MCHC (RBC) [Mass/Vol] 32.8 g/dL Normal 32-36 [facility] Comment on above: Performed By: #### C BCA, CMP ####[facility] ([id number])[address] [address] [place] [address] MCV (RBC) [Entitic vol] 87 fL Normal 80-100 P [facility] Comment on above: Performed By: #### C BCA, CMP ####[facility] ([id number])[address], [address], [place] [address] Monocytes (Bld) [#/Vol] 0.8 10*3/uL Normal 0-0.9 [facility] Comment on above: Performed By: #### C BCA, CMP ####[facility] ([id number])[address], [place] [address] Monocytes/100 WBC (Bld) 5.6 % Normal [facility] Comment on above: Performed By: #### C BCA, CMP ####[facility] ([id number])[address], [place] [address] Neutrophils/100 WBC (Bld) 89.8 % Normal [facility] Comment on above: Performed By: #### C BCA, CMP ####[facility] ([id number])[address], [place] [address] Platelet mean volume (Bld) [Entitic vol] 10.8 fL Normal 7-12 [facility] Comment on above: Performed By: #### C BCA, CMP ####[facility] ([id number])[address], [address], [place] [address] Platelets (Bld) [#/Vol] 58 10*3/uL Low 150-450 [facility] Comment on above: Performed By: #### C BCA, CMP ####[facility] ([id number])[address], [address], [place] [address] RBC COUNT 4.43 X10E12/L Normal 3.80-5.20 [facility] Comment on above: Performed By: #### C BCA, CMP ####[facility] ([id number])[address], [address], [place] [address] WBC (Bld) [#/Vol] 14.8 10*3/uL High 4.0-11.0 [facility] Comment on above: Performed By: #### C BCA, CMP ####[facility] ([id number])[address] [facility], [address] [place] [address] CBC auto differentialon 12-3 Basophils (Bld) [#/Vol] 0.0 10*3/uL [facility] Basophils/100 WBC (Bld) 0.1 % P [facility] Eosinophils (Bld) [#/Vol] 0.0 10*3/uL [facility] Eosinophils/100 WBC (Bld) 0.0 % [facility] Erythrocyte distribution width (RBC) [Ratio] 15.9 % High 11.5 - 15.0 % [facility] Hematocrit (Bld) [Volume fraction] 38.6 % 35 - 47 % [facility] Hemoglobin (Bld) [Mass/Vol] 12.7 g/dL 11.7 - 15.5 g/dL [facility] Interpretation and review of laboratory results Abnormal [facility] Lymphocytes (Bld) [#/Vol] 0.7 10*3/uL Low [facility] Lymphocytes/100 WBC (Bld) 4.5 % [facility] MCH (RBC) [Entitic mass] 28.6 pg 27 - 34 pg [facility] MCHC (RBC) [Mass/Vol] 32.8 g/dL 32 - 3 6 g/dL [facility] MCV (RBC) [Entitic vol] 87 fL 80 - 100 fL [facility] Monocytes (Bld) [#/Vol] 0.8 10*3/uL [facility] Monocytes/100 WBC (Bld) 5.6 % P [facility] Neutrophils (Bld) [#/Vol] 13.3 10*3/uL High [facility] Neutrophils/100 WBC (Bld) 89.8 % [facility] Platelet mean volume (Bld) [Entitic vol] 10.8 fL 7 - 12 fL [facility] Platelets (Bld) [#/Vol] 58 10*3/uL Low P [facility] RBC (Bld) [#/Vol] 4.43 10*6/uL [facility] WBC corrected for nucl RBC Auto (Bld) [#/Vol] 14.8 High [facility] COMPREHENSIVE METABOLIC PANE Dennis 04-07-2023 Albumin [Mass/Vol] 3.5 g/dL Normal 3.2-5.3 [facility] Comment on above: Performed By: #### C BCA, CMP ####[facility] ([id number])[address], [place] [address] ALP [Catalytic activity/Vol] 104 U/L Normal 39-130 [facility] Comment on above: Performed By: #### C BCA, CMP ####[facility] ([id number])[address], [place] [address] ALT [Catalytic activity/Vol] 56 U/L High 0-31 [facility] Comment on above: Performed By: #### C BCA, CMP ####[facility] ([id number])[address], [place] [address] Anion gap [Moles/Vol] 11 mmol/L Normal 5-15 [facility] Comment on above: Performed By: #### C BCA, CMP ####[facility] ([id number])[address], [place] [address] AST [Catalytic activity/Vol] 39 U/L Normal 0-41 [facility] Comment on above: Performed By: #### C BCA, CMP ####[facility] ([id number])[address], [place] [address] Bilirubin [Mass/Vol] 0.9 mg/dL Normal 0.3-1.2 [facility] Comment on above: Performed By: #### C BCA, CMP ####[facility] ([id number])[address], [place] [address] Calcium [Mass/Vol] 9.2 mg/dL Normal 8.5-10.5 [facility] Comment on above: Performed By: #### C BCA, CMP ####[facility] ([id number])[address] [address] [place] [address] Chloride [Moles/Vol] 116 mmol/L High 98-109 [facility] Comment on above: Performed By: #### C BCA, CMP ####[facility] ([id number])[address] [address] [place] [address] CO2 [Moles/Vol] 30 mmol/L Normal 22-32 [facility] Comment on above: Performed By: #### C BCA, CMP ####[facility] ([id number])[address] [address] [address] Creatinine [Mass/Vol] 1.11 mg/dL High 0.40-1.00 [facility] Comment on above: Result Comment: METH OD TRACEABLE TO IDMS STANDARD Performed By: #### C BCA, CMP ####[facility] ([id number])[address] [address] [address] GFR/1.73 sq M.predicted among non-blacks MDRD (S/P/Bld) [Vol rate/Area] 50 mL/min/{1.73_m2} Low >59 [facility] Comment on above: Result Comment: Repo rted eGFR is based on theCKD-EPI 2020 equation that doesnot use a race coefficient. Performed By: #### C BCA, CMP ####[facility] ([id number])[address] [address] [address] Glucose [Mass/Vol] 112 mg/dL High 65-99 [facility] Comment on above: Performed By: #### C BCA, CMP ####[facility] ([id number])[address] [address] [address] Potassium [Moles/Vol] 4.0 mmol/L Normal 3.5-5.0 [facility] Comment on above: Performed By: #### C BCA, CMP ####[facility] ([id number])[address], [place] [address] Protein [Mass/Vol] 6.9 g/dL Normal 6.0-8.0 [facility] Comment on above: Performed By: #### C BCA, CMP ####[facility] ([id number])[address], [address] [place] [address] Sodium [Moles/Vol] 157 mmol/L High 134-146 [facility] Comment on above: Performed By: #### C BCA, CMP ####[facility] ([id number])[address], [address] [place] [address] Urea nitrogen [Mass/Vol] 53 mg/dL High 5-27 [facility] Comment on above: Performed By: #### C BCA, CMP ####[facility] ([id number])[address], [address] [place] [address]RAIN WO CONTon CT BRAIN WO CONT Normal [facility] Comprehensive metabolic pane dennis 04-07-2023 Albumin [Mass/Vol] 3.5 g/dL 3.2 - 5.3 g/dL [facility] ALP [Catalytic activity/Vol] 104 U/L 39 - 130 U/L [facility] ALT No additional P-5'-P [Catalytic activity/Vol] 56 U/L High 0 - 31 U/L [facility] Anion gap [Moles/Vol] 11 mmol/L 5 - 15 mmol/L [facility] AST [Catalytic activity/Vol] 39 U/L 0 - 41 U/L [facility] Bilirubin [Mass/Vol] 0.9 mg/dL 0.3 - 1 .2 mg/dL [facility] Calcium [Mass/Vol] 9.2 mg/dL 8.5 - 10. 5 mg/dL [facility] Chloride [Moles/Vol] 116 mmol/L High 98 - 10 9 mmol/L [facility] CO2 [Moles/Vol] 30 mmol/L 22 - 32 mmol/L [facility] Creatinine [Mass/Vol] 1.11 mg/dL High 0.40 - 1.00 mg/dL [facility] eGFR (CKD-EPI)non-race dependent 50 Low - PINF [facility] Glucose [Mass/Vol] 112 mg/dL High 65 - 99 mg/dL [facility] Interpretation and review of laboratory results Abnormal [facility] Potassium [Moles/Vol] 4.0 mmol/L 3.5 - 5.0 mmol/L [facility] Protein [Mass/Vol] 6.9 g/dL 6.0 - 8.0 g/dL [facility] Sodium [Moles/Vol] 157 mmol/L High 134 - 146 mmol/L [facility] Urea nitrogen [Mass/Vol] 53 mg/dL High 5 - 27 mg/dL [facility] Glucose Glucometer (BldC) [M ass/Vol]on 04-07-2023 Glucose [Mass/Vol] 111 mg/dL High 65-99 [facility] Glucose [Mass/Vol] 111 mg/dL High 65 - 99 mg/dL [facility] Interpretation and review of laboratory results Abnormal [facility] XR CHEST 1 VWon 04-07-2023 XR CHEST 1 VW Normal [facility] XR Chest Single viewon 04-07 SECTRAPACS [facility] Radiology Study observation (narrative) [facility] XR Chest Single viewOrdered By: Rajan Pinto on 04-07-2023 [facility] Work Phone: ARTERIAL BLOOD GASon 023 SHIRAZ'S TEST Pass Normal [facility] Comment on above: Performed By: #### A BG ####[facility] ([id number] [place] [address] Base excess Calc (Bld) [Moles/Vol] 2.0 mmol/L Normal 0.0-2.0 [facility] Comment on above: Performed By: #### A BG ####[facility] ([id number] [place] [address] Body temperature 98.6 [degF] Normal 37.0 [facility] Comment on above: Performed By: #### A BG ####[facility] ([id number])2141 [place] [address] HCO3 (Bld) [Moles/Vol] 23.6 mmol/L Normal 22-26 [facility] [place] Comment on above: Performed By: #### A BG ####[facility] ([id number])2141 [place] [address] INSP. O2 CONC. 28 % Normal [facility] Comment on above: Performed By: #### A BG ####[facility] ([id number])2141 [place] [address] Oxygen (Bld) [Partial pressure] 54 mm[Hg] Low 80-100 [facility] Comment on above: Performed By: #### A BG ####[facility] ([id number])2141 [place] [address] Oxygen saturation in Blood 92.0 % Normal >90 [facility] Comment on above: Performed By: #### A BG ####[facility] ([id number])2141 [place] [address] [place] [facility] Comment on above: Performed By: #### A BG ####[facility] ([id number])2141 [place] [address] PCO2 28.0 MMHG Low 35-45 [facility] Comment on above: Performed By: #### A BG ####[facility] ([id number])2141 [place] [address] pH (Bld) 7.535 [pH] High 7.350-7.45 0 [facility] Comment on above: Performed By: #### A BG ####[facility] ([id number])2141 [place] [address] SAMPLE SITE RRad Normal [facility] Comment on above: Performed By: #### A BG ####[facility] ([id number])2141 [place] [address] SAMPLE TYPE ARTERIAL Normal [facility] Comment on above: Performed By: #### A BG ####[facility] ([id number])2141 [place] [address] Blood Gas, Arterialon 2022 Arterial patency Wrist artery --pre arterial puncture Pass [facility] Base excess Calc (Bld) [Moles/Vol] 2.0 mmol/L [facility] CO2 (Bld) [Partial pressure] 28.0 mm[Hg] Low [facility] HCO3 (Bld) [Moles/Vol] 23.6 mmol/L [facility] Interpretation and review of laboratory results Abnormal [facility] Oxygen (Bld) [Partial pressure] 54 mm[Hg] Low [facility] Oxygen therapy source and amount [CARE] NC [facility] Oxygen/Inspired gas setting [Volume Fraction] Ventilator 28 % [facility] pH (Bld) 7.535 [pH] High 7.350 - 7.450 [facility] Specimen site Narrative RRad P [facility] Specimen type Nom (Spec) ARTERIAL [facility] CBC AND AUTO DIFFon 04-06-20 ABSOLUTE BASOPHIL 0.0 X10E9/L Normal 0.0-0.2 [facility] Comment on above: Performed By: #### C BCA, CMP ####[facility] ([id number])[address], [place] [address] ABSOLUTE NEUTROPHIL 14.5 X10E9/L High 1.5-6.6 [facility] Comment on above: Performed By: #### C BROOKLYN, CMP ####[facility] ([id number])[address], [place] [address] Basophils/100 WBC (Bld) 0.1 % Normal [facility] [place] Comment on above: Performed By: #### C BCA, CMP ####[facility] ([id number])[address], [place] [address] Eosinophils (Bld) [#/Vol] 0.0 10*3/uL Normal 0.0-0.4 [facility] Comment on above: Performed By: #### C BROOKLYN, CMP ####[facility] ([id number])[address] [address] [address] Eosinophils/100 WBC (Bld) 0.2 % Normal [facility] Comment on above: Performed By: #### C BROOKLYN, CMP ####[facility] ([id number])[address] [address], [place] [address] Erythrocyte distribution width (RBC) [Ratio] 15.8 % High 11.5-15.0 [facility] Comment on above: Performed By: #### C BROOKLYN, CMP ####[facility] ([id number])[address] [address], [place] [address] Hematocrit (Bld) [Volume fraction] 40.3 % Normal 35-47 [facility] Comment on above: Performed By: #### C BROOKLYN, CMP ####[facility] ([id number])[address], [place] [address] Hemoglobin (Bld) [Mass/Vol] 13.1 g/dL Normal 11.7-15.5 [facility] Comment on above: Performed By: #### C BCA, CMP ####[facility] ([id number])[address], [address], [place] [address] Lymphocytes (Bld) [#/Vol] 0.9 10*3/uL Low 1.0-3.5 [facility] Comment on above: Performed By: #### C BCA, CMP ####[facility] ([id number])[address], [place] [address] Lymphocytes/100 WBC (Bld) 5.2 % Normal [facility] Comment on above: Performed By: #### C BCA, CMP ####[facility] ([id number])[address] [address], [place] [address] MCH (RBC) [Entitic mass] 28.2 pg Normal 27-34 [facility] Comment on above: Performed By: #### C BCA, CMP ####[facility] ([id number])[address] [address], [place] [address] MCHC (RBC) [Mass/Vol] 32.5 g/dL Normal 32-36 [facility] Comment on above: Performed By: #### C BCA, CMP ####[facility] ([id number])[address] [address], [place] [address] MCV (RBC) [Entitic vol] 87 fL Normal 80-100 [facility] Comment on above: Performed By: #### C BCA, CMP ####[facility] ([id number])[address] [address], [place] [address] Monocytes (Bld) [#/Vol] 0.9 10*3/uL Normal 0-0.9 [facility] Comment on above: Performed By: #### C BCA, CMP ####[facility] ([id number])[address] [address], [place] [address] Monocytes/100 WBC (Bld) 5.6 % Normal [facility] [place] Comment on above: Performed By: #### C BCA, CMP ####[facility] ([id number])[address] [address], [place] [address] Neutrophils/100 WBC (Bld) 88.9 % Normal [facility] Comment on above: Performed By: #### Batsheva BARAHONA, CMP ####[facility] ([id number])[address] [address], [place] [address] Platelet mean volume (Bld) [Entitic vol] 9.9 fL Normal 7-12 [facility] Comment on above: Performed By: #### C BROOKLYN, CMP ####[facility] ([id number])[address] [address] Platelets (Bld) [#/Vol] 69 10*3/uL Low 150-450 [facility] Comment on above: Performed By: #### Batsheva BARAHONA, CMP ####[facility] ([id number])[address] [address] RBC COUNT 4.64 X10E12/L Normal 3.80-5.20 [facility] Comment on above: Performed By: #### Batsheva BARAHONA, CMP ####[facility] ([id number])[address] [address] WBC (Bld) [#/Vol] 16.3 10*3/uL High 4.0-11.0 [facility] Comment on above: Performed By: #### Batsheva BARAHONA, CMP ####[facility] ([id number])[address] [address], [place] [address] CBC auto differentialon 03-10 Basophils (Bld) [#/Vol] 0.0 10*3/uL [facility] Basophils/100 WBC (Bld) 0.1 % P [facility] Eosinophils (Bld) [#/Vol] 0.0 10*3/uL [facility] Eosinophils/100 WBC (Bld) 0.2 % [facility] Erythrocyte distribution width (RBC) [Ratio] 15.8 % High 11.5 - 15.0 % [facility] Hematocrit (Bld) [Volume fraction] 40.3 % 35 - 47 % [facility] Hemoglobin (Bld) [Mass/Vol] 13.1 g/dL 11.7 - 15.5 g/dL [facility] Interpretation and review of laboratory results Abnormal [facility] Lymphocytes (Bld) [#/Vol] 0.9 10*3/uL Low [facility] Lymphocytes/100 WBC (Bld) 5.2 % [facility] MCH (RBC) [Entitic mass] 28.2 pg 27 - 34 pg [facility] MCHC (RBC) [Mass/Vol] 32.5 g/dL 32 - 3 6 g/dL [facility] MCV (RBC) [Entitic vol] 87 fL 80 - 100 fL [facility] Monocytes (Bld) [#/Vol] 0.9 10*3/uL [facility] Monocytes/100 WBC (Bld) 5.6 % P [facility] Neutrophils (Bld) [#/Vol] 14.5 10*3/uL High [facility] Neutrophils/100 WBC (Bld) 88.9 % [facility] Platelet mean volume (Bld) [Entitic vol] 9.9 fL 7 - 12 fL [facility] Platelets (Bld) [#/Vol] 69 10*3/uL Low P [facility] RBC (Bld) [#/Vol] 4.64 10*6/uL [facility] WBC corrected for nucl RBC Auto (Bld) [#/Vol] 16.3 High [facility] COMPREHENSIVE METABOLIC PANE Dennis 04-06-2023 Albumin [Mass/Vol] 3.7 g/dL Normal 3.2-5.3 [facility] Comment on above: Performed By: #### C BCA, CMP ####[facility] ([id number])2130 [facility], [address] [place] [address] ALP [Catalytic activity/Vol] 87 U/L Normal 39-130 [facility] Comment on above: Performed By: #### C BCA, CMP ####[facility] ([id number])[address], [place] [address] ALT [Catalytic activity/Vol] 34 U/L High 0-31 [facility] Comment on above: Performed By: #### C BCA, CMP ####[facility] ([id number])[address], [place] [address] Anion gap [Moles/Vol] 11 mmol/L Normal 5-15 [facility] Comment on above: Performed By: #### C BCA, CMP ####[facility] ([id number])[address], [place] [address] AST [Catalytic activity/Vol] 28 U/L Normal 0-41 [facility] Comment on above: Performed By: #### C BCA, CMP ####[facility] ([id number])[address], [place] [address] Bilirubin [Mass/Vol] 0.6 mg/dL Normal 0.3-1.2 [facility] Comment on above: Performed By: #### C BCA, CMP ####[facility] ([id number])[address], [place] [address] Calcium [Mass/Vol] 9.5 mg/dL Normal 8.5-10.5 [facility] Comment on above: Performed By: #### C BCA, CMP ####[facility] ([id number])[address], [address], [place] [address] Chloride [Moles/Vol] 114 mmol/L High 98-109 [facility] Comment on above: Performed By: #### C BCA, CMP ####[facility] ([id number])[address], [place] [address] CO2 [Moles/Vol] 27 mmol/L Normal 22-32 [facility] Comment on above: Performed By: #### C BCA, CMP ####[facility] ([id number])[address] [address] [address] Creatinine [Mass/Vol] 0.70 mg/dL Normal 0.40-1.00 [facility] Comment on above: Result Comment: METH OD TRACEABLE TO IDMS STANDARD Performed By: #### C BCA, CMP ####[facility] ([id number])[address] [address] GFR/1.73 sq M.predicted among non-blacks MDRD (S/P/Bld) [Vol rate/Area] 87 mL/min/{1.73_m2} Normal >59 [facility] Comment on above: Result Comment: Repo rted eGFR is based on theCKD-EPI 2020 equation that doesnot use a race coefficient. Performed By: #### C BCA, CMP ####[facility] ([id number])[address] [address], [place] [address] Glucose [Mass/Vol] 106 mg/dL High 65-99 [facility] Comment on above: Performed By: #### C BCA, CMP ####[facility] ([id number])[address] [address] [address] Potassium [Moles/Vol] 3.7 mmol/L Normal 3.5-5.0 [facility] Comment on above: Performed By: #### C BCA, CMP ####[facility] ([id number])[address] [address], [place] [address] Protein [Mass/Vol] 6.8 g/dL Normal 6.0-8.0 [facility] Comment on above: Performed By: #### C BCA, CMP ####[facility] ([id number])[address] [address] [place] [address] Sodium [Moles/Vol] 152 mmol/L High 134-146 [facility] Comment on above: Performed By: #### C BCA, CMP ####[facility] ([id number])[address], [address] [place] [address] Urea nitrogen [Mass/Vol] 39 mg/dL High 5-27 [facility] Comment on above: Performed By: #### C BCA, CMP ####[facility] ([id number])[address], [address] [place] [address] CTA CHESTon 04-06-2023 CT CTA CHEST Normal [facility] CT Chest WO and CT angiogram Coronary arteries W contrast Mónica [facility] CT Head WO contrastOrdered B y: Julio Cesar Martinez on 04-06-2023 [facility] Work Phone: Comprehensive metabolic pane dennis 04-06-2023 Albumin [Mass/Vol] 3.7 g/dL 3.2 - 5.3 g/dL [facility] ALP [Catalytic activity/Vol] 87 U/L 39 - 130 U/L [facility] ALT No additional P-5'-P [Catalytic activity/Vol] 34 U/L High 0 - 31 U/L [facility] Anion gap [Moles/Vol] 11 mmol/L 5 - 15 mmol/L [facility] AST [Catalytic activity/Vol] 28 U/L 0 - 41 U/L [facility] Bilirubin [Mass/Vol] 0.6 mg/dL 0.3 - 1 .2 mg/dL [facility] Calcium [Mass/Vol] 9.5 mg/dL 8.5 - 10. 5 mg/dL [facility] Chloride [Moles/Vol] 114 mmol/L High 98 - 10 9 mmol/L [facility] CO2 [Moles/Vol] 27 mmol/L 22 - 32 mmol/L [facility] Creatinine [Mass/Vol] 0.70 mg/dL 0.40 - 1.00 mg/dL [facility] eGFR (CKD-EPI)non-race dependent 87 - PINF [facility] Glucose [Mass/Vol] 106 mg/dL High 65 - 99 mg/dL [facility] Interpretation and review of laboratory results Abnormal [facility] Potassium [Moles/Vol] 3.7 mmol/L 3.5 - 5.0 mmol/L [facility] Protein [Mass/Vol] 6.8 g/dL 6.0 - 8.0 g/dL [facility] Sodium [Moles/Vol] 152 mmol/L High 134 - 146 mmol/L [facility] Urea nitrogen [Mass/Vol] 39 mg/dL High 5 - 27 mg/dL [facility] POTASSIUMon 04-06-2023 Potassium [Moles/Vol] 4.7 mmol/L Normal 3.5-5.0 [facility] Comment on above: Performed By: #### 2 823-3, 15584-7 ####[facility] ([id number])2130 [facility], [address] [place] [address] Potassiumon 04-06-2023 Potassium [Moles/Vol] 4.7 mmol/L 3.5 - 5.0 mmol/L [facility] Potassium [Moles/Vol]on 03-10 [facility] Procalcitoninon 04-06-2023 Procalcitonin IA [Mass/Vol] 0.15 ng/mL High NINF - 0.05 ng/mL [facility] Procalcitonin IA [Mass/Vol]o n 04-06-2023 Interpretation and review of laboratory results Abnormal [facility] PROCALCITONIN 0.15 ng/mL High <0.05 [facility] Comment on above: Result Comment: NOTE <0.50 ng/mL - Low risk of severe sepsis and/or septic shock.<2.00 ng/mL - Recommend retesting within 6-24 hours.>2.00 ng/mL - High risk of sepsis and/or septic shock. Performed By: #### 2 823-3, 36521-8 ####[facility] ([id number])[address], [address] [place] [address] XR CHEST 1 VWon 04-06-2023 XR CHEST 1 VW Normal [facility] XR Chest Single viewon 04-06 [facility] Radiology Study observation (narrative) [facility] XR Chest Single viewOrdered By: Jose G Varela on 04-06-2023 [facility] Work Phone: CBC AND AUTO DIFFon 04-05-20 23 ABSOLUTE BASOPHIL 0.0 X10E9/L Normal 0.0-0.2 [facility] Comment on above: Performed By: #### C BCA, CMP ####[facility] ([id number])[address], [address] [place] [address] ABSOLUTE NEUTROPHIL 13.3 X10E9/L High 1.5-6.6 [facility] Comment on above: Performed By: #### C BCA, CMP ####[facility] ([id number])[address], [address] [place] [address] Basophils/100 WBC (Bld) 0.0 % Normal [facility] [place] Comment on above: Performed By: #### C BCA, CMP ####[facility] ([id number])[address], [address] [place] [address] Eosinophils (Bld) [#/Vol] 0.0 10*3/uL Normal 0.0-0.4 [facility] Comment on above: Performed By: #### C BCA, CMP ####[facility] ([id number])[address] [address] [place] [address] Eosinophils/100 WBC (Bld) 0.1 % Normal [facility] Comment on above: Performed By: #### C BCA, CMP ####[facility] ([id number])[address], [address], [place] [address] Erythrocyte distribution width (RBC) [Ratio] 15.8 % High 11.5-15.0 [facility] Comment on above: Performed By: #### C BROOKLYN, CMP ####[facility] ([id number])[address], [place] [address] Hematocrit (Bld) [Volume fraction] 39.6 % Normal 35-47 [facility] Comment on above: Performed By: #### C BROOKLYN, CMP ####[facility] ([id number])[address] [address] [place] [address] Hemoglobin (Bld) [Mass/Vol] 13.3 g/dL Normal 11.7-15.5 [facility] Comment on above: Performed By: #### C BROOKLYN, CMP ####[facility] ([id number])[address] [address] [place] [address] Lymphocytes (Bld) [#/Vol] 0.6 10*3/uL Low 1.0-3.5 [facility] Comment on above: Performed By: #### C BROOKLYN, CMP ####[facility] ([id number])[address] [place] [address] Lymphocytes/100 WBC (Bld) 3.9 % Normal [facility] Comment on above: Performed By: #### C BROOKLYN, CMP ####[facility] ([id number])[address] [address] [place] [address] MCH (RBC) [Entitic mass] 28.9 pg Normal 27-34 [facility] Comment on above: Performed By: #### C BROOKLYN, CMP ####[facility] ([id number])[address], [place] [address] MCHC (RBC) [Mass/Vol] 33.5 g/dL Normal 32-36 [facility] Comment on above: Performed By: #### C BCA, CMP ####[facility] ([id number])[address], [place] [address] MCV (RBC) [Entitic vol] 86 fL Normal 80-100 [facility] Comment on above: Performed By: #### C BROOKLYN, CMP ####[facility] ([id number])[address], [place] [address] Monocytes (Bld) [#/Vol] 0.7 10*3/uL Normal 0-0.9 [facility] Comment on above: Performed By: #### C BROOKLYN, CMP ####[facility] ([id number])[address], [place] [address] Monocytes/100 WBC (Bld) 4.8 % Normal [facility] Comment on above: Performed By: #### C BROOKLYN, CMP ####[facility] ([id number])[address], [place] [address] Neutrophils/100 WBC (Bld) 91.2 % Normal [facility] Comment on above: Performed By: #### C BROOKLYN, CMP ####[facility] ([id number])[address], [place] [address] Platelet mean volume (Bld) [Entitic vol] 8.8 fL Normal 7-12 [facility] Comment on above: Performed By: #### C BCA, CMP ####[facility] ([id number])[address], [place] [address] Platelets (Bld) [#/Vol] 68 10*3/uL Low 150-450 [facility] Comment on above: Performed By: #### C BCA, CMP ####[facility] ([id number])[address], [place] [address] RBC COUNT 4.59 X10E12/L Normal 3.80-5.20 [facility] Comment on above: Performed By: #### C BROOKLYN, CMP ####[facility] ([id number])[address], [address] [place] [address] WBC (Bld) [#/Vol] 14.5 10*3/uL High 4.0-11.0 [facility] Comment on above: Performed By: #### C BROOKLYN, CMP ####[facility] ([id number])[address], [place] [address] CBC auto differentialon 03-09 Basophils (Bld) [#/Vol] 0.0 10*3/uL [facility] Basophils/100 WBC (Bld) 0.0 % P [facility] Eosinophils (Bld) [#/Vol] 0.0 10*3/uL [facility] Eosinophils/100 WBC (Bld) 0.1 % [facility] Erythrocyte distribution width (RBC) [Ratio] 15.8 % High 11.5 - 15.0 % [facility] Hematocrit (Bld) [Volume fraction] 39.6 % 35 - 47 % [facility] Hemoglobin (Bld) [Mass/Vol] 13.3 g/dL 11.7 - 15.5 g/dL [facility] Interpretation and review of laboratory results Abnormal [facility] Lymphocytes (Bld) [#/Vol] 0.6 10*3/uL Low [facility] Lymphocytes/100 WBC (Bld) 3.9 % [facility] MCH (RBC) [Entitic mass] 28.9 pg 27 - 34 pg [facility] MCHC (RBC) [Mass/Vol] 33.5 g/dL 32 - 3 6 g/dL [facility] MCV (RBC) [Entitic vol] 86 fL 80 - 100 fL [facility] Monocytes (Bld) [#/Vol] 0.7 10*3/uL [facility] Monocytes/100 WBC (Bld) 4.8 % P [facility] Neutrophils (Bld) [#/Vol] 13.3 10*3/uL High [facility] Neutrophils/100 WBC (Bld) 91.2 % [facility] Platelet mean volume (Bld) [Entitic vol] 8.8 fL 7 - 12 fL [facility] Platelets (Bld) [#/Vol] 68 10*3/uL Low P [facility] RBC (Bld) [#/Vol] 4.59 10*6/uL [facility] WBC corrected for nucl RBC Auto (Bld) [#/Vol] 14.5 High [facility] COMPREHENSIVE METABOLIC PANE Dennis 04-05-2023 Albumin [Mass/Vol] 3.9 g/dL Normal 3.2-5.3 [facility] Comment on above: Performed By: #### C BCA, CMP ####[facility] [id number], [address] [place] [address] ALP [Catalytic activity/Vol] 81 U/L Normal 39-130 [facility] Comment on above: Performed By: #### C BCA, CMP ####[facility] [id number], [address] [place] [address] ALT [Catalytic activity/Vol] 20 U/L Normal 0-31 [facility] Comment on above: Performed By: #### C BCA, CMP ####[facility] [id number], [place] [address] Anion gap [Moles/Vol] 10 mmol/L Normal 5-15 [facility] Comment on above: Performed By: #### C BCA, CMP ####[facility] [id number] [place] [address] AST [Catalytic activity/Vol] 25 U/L Normal 0-41 [facility] Comment on above: Performed By: #### C BCA, CMP ####[facility] ([id number])[address], [place] [address] Bilirubin [Mass/Vol] 0.6 mg/dL Normal 0.3-1.2 [facility] Comment on above: Performed By: #### C BCA, CMP ####[facility] ([id number])[address] [address] [address] Calcium [Mass/Vol] 9.8 mg/dL Normal 8.5-10.5 [facility] Comment on above: Performed By: #### C BCA, CMP ####[facility] ([id number])[address] [address], [place] [address] Chloride [Moles/Vol] 113 mmol/L High 98-109 [facility] Comment on above: Performed By: #### C BCA, CMP ####[facility] ([id number])[address] [address] CO2 [Moles/Vol] 26 mmol/L Normal 22-32 [facility] Comment on above: Performed By: #### C BCA, CMP ####[facility] ([id number])[address] [address], [place] [address] Creatinine [Mass/Vol] 0.64 mg/dL Normal 0.40-1.00 [facility] Comment on above: Result Comment: METH OD TRACEABLE TO IDMS STANDARD Performed By: #### C BCA, CMP ####[facility] ([id number])[address] [address] GFR/1.73 sq M.predicted among non-blacks MDRD (S/P/Bld) [Vol rate/Area] 89 mL/min/{1.73_m2} Normal >59 [facility] Comment on above: Result Comment: Repo rted eGFR is based on theCKD-EPI 2020 equation that doesnot use a race coefficient. Performed By: #### C BCA, CMP ####[facility] ([id number])[address] [address] [place] [address] Glucose [Mass/Vol] 169 mg/dL High 65-99 [facility] Comment on above: Performed By: #### C BCA, CMP ####[facility] ([id number])[address], [address] [address] Potassium [Moles/Vol] 3.5 mmol/L Normal 3.5-5.0 [facility] Comment on above: Performed By: #### C BCA, CMP ####[facility] ([id number])[address], [address] [address] Protein [Mass/Vol] 7.1 g/dL Normal 6.0-8.0 [facility] Comment on above: Performed By: #### C BCA, CMP ####[facility] ([id number])[address], [address] [address] Sodium [Moles/Vol] 149 mmol/L High 134-146 [facility] Comment on above: Performed By: #### C BCA, CMP ####[facility] ([id number])[address] [address] Urea nitrogen [Mass/Vol] 36 mg/dL High 5-27 [facility] Comment on above: Performed By: #### C BCA, CMP ####[facility] ([id number])[address] [address] Comprehensive metabolic pane dennis 04-05-2023 Albumin [Mass/Vol] 3.9 g/dL 3.2 - 5.3 g/dL [facility] ALP [Catalytic activity/Vol] 81 U/L 39 - 130 U/L [facility] ALT No additional P-5'-P [Catalytic activity/Vol] 20 U/L 0 - 31 U/L [facility] Anion gap [Moles/Vol] 10 mmol/L 5 - 15 mmol/L [facility] AST [Catalytic activity/Vol] 25 U/L 0 - 41 U/L [facility] Bilirubin [Mass/Vol] 0.6 mg/dL 0.3 - 1 .2 mg/dL [facility] Calcium [Mass/Vol] 9.8 mg/dL 8.5 - 10. 5 mg/dL [facility] Chloride [Moles/Vol] 113 mmol/L High 98 - 10 9 mmol/L [facility] CO2 [Moles/Vol] 26 mmol/L 22 - 32 mmol/L [facility] Creatinine [Mass/Vol] 0.64 mg/dL 0.40 - 1.00 mg/dL [facility] eGFR (CKD-EPI)non-race dependent 89 - PINF [facility] Glucose [Mass/Vol] 169 mg/dL High 65 - 99 mg/dL [facility] Interpretation and review of laboratory results Abnormal [facility] Potassium [Moles/Vol] 3.5 mmol/L 3.5 - 5.0 mmol/L [facility] Protein [Mass/Vol] 7.1 g/dL 6.0 - 8.0 g/dL [facility] Sodium [Moles/Vol] 149 mmol/L High 134 - 146 mmol/L [facility] Urea nitrogen [Mass/Vol] 36 mg/dL High 5 - 27 mg/dL [facility] POTASSIUMon 04-05-2023 Potassium [Moles/Vol] 3.8 mmol/L Normal 3.5-5.0 [facility] Comment on above: Performed By: #### 2 823-3 ####[facility] ([id number])[address] [place] [address], [address] [place] [address] Potassiumon 04-05-2023 Potassium [Moles/Vol] 3.8 mmol/L 3.5 - 5.0 mmol/L [facility] Potassium [Moles/Vol]on 03-09 [facility] XR CHEST 1 VWon 04-05-2023 XR CHEST 1 VW Normal [facility] XR Chest Single viewon 04-05 SE[facility]RAPACS [facility] Radiology Study observation (narrative) [facility] XR Chest Single viewOrdered By: Jose Luis Tyson on 04-05-2023 [facility] Work Phone: CBC AND AUTO DIFFon 04-04-20 ABSOLUTE BASOPHIL 0.0 X10E9/L Normal 0.0-0.2 [facility] Comment on above: Performed By: #### C BROOKLYN, CMP ####[facility] ([id number])[address], [address] [place] [address] ABSOLUTE NEUTROPHIL 9.9 X10E9/L High 1.5-6.6 [facility] Comment on above: Performed By: #### C BROOKLYN, CMP ####[facility] ([id number])[address], [address], [place] [address] Basophils/100 WBC (Bld) 0.1 % Normal [facility] Comment on above: Performed By: #### C BROOKLYN, CMP ####[facility] ([id number])[address], [address], [place] [address] Eosinophils (Bld) [#/Vol] 0.0 10*3/uL Normal 0.0-0.4 [facility] Comment on above: Performed By: #### C BROOKLYN, CMP ####[facility] ([id number])[address], [address], [place] [address] Eosinophils/100 WBC (Bld) 0.1 % Normal [facility] Comment on above: Performed By: #### C BROOKLYN, CMP ####[facility] ([id number])[address], [address], [place] [address] Erythrocyte distribution width (RBC) [Ratio] 15.7 % High 11.5-15.0 [facility] Comment on above: Performed By: #### C BROOKLYN, CMP ####[facility] ([id number])[address], [address] [place] [address] Hematocrit (Bld) [Volume fraction] 35.8 % Normal 35-47 [facility] Comment on above: Performed By: #### C BCA, CMP ####[facility] ([id number])[address], [address], [place] [address] Hemoglobin (Bld) [Mass/Vol] 11.9 g/dL Normal 11.7-15.5 [facility] Comment on above: Performed By: #### C BCA, CMP ####[facility] ([id number])[address] [address], [place] [address] Lymphocytes (Bld) [#/Vol] 0.7 10*3/uL Low 1.0-3.5 [facility] Comment on above: Performed By: #### C BCA, CMP ####[facility] ([id number])[address] [address], [place] [address] Lymphocytes/100 WBC (Bld) 5.9 % Normal [facility] Comment on above: Performed By: #### C BCA, CMP ####[facility] ([id number])[address] [address], [place] [address] MCH (RBC) [Entitic mass] 28.8 pg Normal 27-34 [facility] Comment on above: Performed By: #### C BCA, CMP ####[facility] ([id number])[address] [address], [place] [address] MCHC (RBC) [Mass/Vol] 33.2 g/dL Normal 32-36 [facility] Comment on above: Performed By: #### C BCA, CMP ####[facility] ([id number])[address] [address], [place] [address] MCV (RBC) [Entitic vol] 87 fL Normal 80-100 [facility] Comment on above: Performed By: #### C BCA, CMP ####[facility] ([id number])[address], [address] [place] [address] Monocytes (Bld) [#/Vol] 0.6 10*3/uL Normal 0-0.9 [facility] Comment on above: Performed By: #### C BROOKLYN, CMP ####[facility] ([id number])[address], [address] [place] [address] Monocytes/100 WBC (Bld) 5.4 % Normal [facility] Comment on above: Performed By: #### C BROOKLYN, CMP ####[facility] ([id number])[address], [address], [place] [address] Neutrophils/100 WBC (Bld) 88.5 % Normal [facility] Comment on above: Performed By: #### C BROOKLYN, CMP ####[facility] ([id number])[address], [address] [place] [address] Platelet mean volume (Bld) [Entitic vol] 8.2 fL Normal 7-12 [facility] Comment on above: Performed By: #### C BROOKLYN, CMP ####[facility] ([id number])[address], [address] [place] [address] Platelets (Bld) [#/Vol] 70 10*3/uL Low 150-450 [facility] Comment on above: Performed By: #### C BROOKLYN, CMP ####[facility] ([id number])[address], [address], [place] [address] RBC COUNT 4.13 X10E12/L Normal 3.80-5.20 [facility] Comment on above: Performed By: #### C BROOKLYN, CMP ####[facility] ([id number])[address] [address] [place] [address] WBC (Bld) [#/Vol] 11.1 10*3/uL High 4.0-11.0 [facility] Comment on above: Performed By: #### C BROOKLYN, CMP ####[facility] ([id number])[address] [facility], [address] [place] [address] CBC auto differentialon 03-09 Basophils (Bld) [#/Vol] 0.0 10*3/uL [facility] Basophils/100 WBC (Bld) 0.1 % [facility] Eosinophils (Bld) [#/Vol] 0.0 10*3/uL [facility] Eosinophils/100 WBC (Bld) 0.1 % [facility] Erythrocyte distribution width (RBC) [Ratio] 15.7 % High 11.5 - 15.0 % [facility] Hematocrit (Bld) [Volume fraction] 35.8 % 35 - 47 % [facility] Hemoglobin (Bld) [Mass/Vol] 11.9 g/dL 11.7 - 15.5 g/dL [facility] Interpretation and review of laboratory results Abnormal [facility] Lymphocytes (Bld) [#/Vol] 0.7 10*3/uL Low [facility] Lymphocytes/100 WBC (Bld) 5.9 % [facility] MCH (RBC) [Entitic mass] 28.8 pg 27 - 34 pg [facility] MCHC (RBC) [Mass/Vol] 33.2 g/dL 32 - 3 6 g/dL [facility] MCV (RBC) [Entitic vol] 87 fL 80 - 100 fL [facility] Monocytes (Bld) [#/Vol] 0.6 10*3/uL [facility] Monocytes/100 WBC (Bld) 5.4 % [facility] Neutrophils (Bld) [#/Vol] 9.9 10*3/uL High [facility] Neutrophils/100 WBC (Bld) 88.5 % [facility] Platelet mean volume (Bld) [Entitic vol] 8.2 fL 7 - 12 fL [facility] Platelets (Bld) [#/Vol] 70 10*3/uL Low [facility] RBC (Bld) [#/Vol] 4.13 10*6/uL [facility] WBC corrected for nucl RBC Auto (Bld) [#/Vol] 11.1 High [facility] COMPREHENSIVE METABOLIC PANE Dennis 04-04-2023 Albumin [Mass/Vol] 3.7 g/dL Normal 3.2-5.3 [facility] Comment on above: Performed By: #### C BCA, CMP ####[facility] ([id number])[address], [address], [place] [address] ALP [Catalytic activity/Vol] 71 U/L Normal 39-130 [facility] Comment on above: Performed By: #### C BCA, CMP ####[facility] ([id number])[address], [address], [place] [address] ALT [Catalytic activity/Vol] 14 U/L Normal 0-31 [facility] Comment on above: Performed By: #### C BCA, CMP ####[facility] ([id number])[address], [address], [place] [address] Anion gap [Moles/Vol] 9 mmol/L Normal 5-15 [facility] Comment on above: Performed By: #### C BCA, CMP ####[facility] ([id number])[address], [address], [place] [address] AST [Catalytic activity/Vol] 21 U/L Normal 0-41 [facility] Comment on above: Performed By: #### C BCA, CMP ####[facility] ([id number])[address], [address], [place] [address] Bilirubin [Mass/Vol] 0.6 mg/dL Normal 0.3-1.2 [facility] Comment on above: Performed By: #### C BCA, CMP ####[facility] ([id number])[address], [address], [place] [address] Calcium [Mass/Vol] 9.5 mg/dL Normal 8.5-10.5 [facility] Comment on above: Performed By: #### C BCA, CMP ####[facility] ([id number])[address], [address] [place] [address] Chloride [Moles/Vol] 110 mmol/L High 98-109 [facility] Comment on above: Performed By: #### C BCA, CMP ####[facility] ([id number])[address], [address] [place] [address] CO2 [Moles/Vol] 27 mmol/L Normal 22-32 [facility] Comment on above: Performed By: #### C BCA, CMP ####[facility] ([id number])[address] [address], [place] [address] Creatinine [Mass/Vol] 0.64 mg/dL Normal 0.40-1.00 [facility] Comment on above: Result Comment: METH OD TRACEABLE TO IDMS STANDARD Performed By: #### C BCA, CMP ####[facility] ([id number])[address] [address], [place] [address] GFR/1.73 sq M.predicted among non-blacks MDRD (S/P/Bld) [Vol rate/Area] 89 mL/min/{1.73_m2} Normal >59 [facility] Comment on above: Result Comment: Repo rted eGFR is based on theCKD-EPI 2020 equation that doesnot use a race coefficient. Performed By: #### C BCA, CMP ####[facility] ([id number])[address] [address] [place] [address] Glucose [Mass/Vol] 147 mg/dL High 65-99 [facility] Comment on above: Performed By: #### C BCA, CMP ####[facility] ([id number])[address] [address] [place] [address] Potassium [Moles/Vol] 3.6 mmol/L Normal 3.5-5.0 [facility] Comment on above: Performed By: #### C BCA, CMP ####[facility] ([id number])[address], [address] [place] [address] Protein [Mass/Vol] 6.7 g/dL Normal 6.0-8.0 [facility] Comment on above: Performed By: #### C BCA, CMP ####[facility] ([id number])[address], [address] [place] [address] Sodium [Moles/Vol] 146 mmol/L Normal 134-146 [facility] Comment on above: Performed By: #### C BCA, CMP ####[facility] ([id number])[address], [address] [place] [address] Urea nitrogen [Mass/Vol] 29 mg/dL High 5-27 [facility] Comment on above: Performed By: #### C BCA, CMP ####[facility] ([id number])[address], [address] [place] [address] Comprehensive metabolic pane dennis 04-04-2023 Albumin [Mass/Vol] 3.7 g/dL 3.2 - 5.3 g/dL [facility] ALP [Catalytic activity/Vol] 71 U/L 39 - 130 U/L [facility] ALT No additional P-5'-P [Catalytic activity/Vol] 14 U/L 0 - 31 U/L [facility] Anion gap [Moles/Vol] 9 mmol/L 5 - 15 mmol/L [facility] AST [Catalytic activity/Vol] 21 U/L 0 - 41 U/L [facility] Bilirubin [Mass/Vol] 0.6 mg/dL 0.3 - 1 .2 mg/dL [facility] Calcium [Mass/Vol] 9.5 mg/dL 8.5 - 10. 5 mg/dL [facility] Chloride [Moles/Vol] 110 mmol/L High 98 - 10 9 mmol/L [facility] CO2 [Moles/Vol] 27 mmol/L 22 - 32 mmol/L [facility] Creatinine [Mass/Vol] 0.64 mg/dL 0.40 - 1.00 mg/dL [facility] eGFR (CKD-EPI)non-race dependent 89 - PINF [facility] Glucose [Mass/Vol] 147 mg/dL High 65 - 99 mg/dL [facility] Interpretation and review of laboratory results Abnormal [facility] Potassium [Moles/Vol] 3.6 mmol/L 3.5 - 5.0 mmol/L [facility] Protein [Mass/Vol] 6.7 g/dL 6.0 - 8.0 g/dL [facility] Sodium [Moles/Vol] 146 mmol/L 134 - 146 mmol/L [facility] Urea nitrogen [Mass/Vol] 29 mg/dL High 5 - 27 mg/dL [facility] POTASSIUMon 04-04-2023 Potassium [Moles/Vol] 3.8 mmol/L Normal 3.5-5.0 [facility] Comment on above: Performed By: #### 2 823-3 ####[facility] ([id number])[address], [address] [place] [address] Potassiumon 04-04-2023 Potassium [Moles/Vol] 3.8 mmol/L 3.5 - 5.0 mmol/L [facility] Potassium [Moles/Vol]on 03-09 [facility] CBC AND AUTO DIFFon 04-03-20 ABSOLUTE BASOPHIL 0.0 X10E9/L Normal 0.0-0.2 [facility] Comment on above: Performed By: #### C BROOKLYN, [facility], [address]-1 ####[facility] ([id number])[address], [address], [place] [address] ABSOLUTE NEUTROPHIL 12.1 X10E9/L High 1.5-6.6 [facility] Comment on above: Performed By: #### C BROOKLYN, CMP, 94718-6 ####[facility] ([id number])[address], [address] [place] [address] Basophils/100 WBC (Bld) 0.1 % Normal [facility] Comment on above: Performed By: #### C BROOKLYN [facility], ####[facility] ([id number])[address] [address] [place] [address] Eosinophils (Bld) [#/Vol] 0.0 10*3/uL Normal 0.0-0.4 [facility] Comment on above: Performed By: #### Batsheva BARAHONA [facility], ####[facility] ([id number])[address] [address], [place] [address] Eosinophils/100 WBC (Bld) 0.1 % Normal [facility] Comment on above: Performed By: #### Batsheva BARAHNOA [facility], ####[facility] ([id number])[address] [address], [place] [address] Erythrocyte distribution width (RBC) [Ratio] 15.5 % High 11.5-15.0 [facility] Comment on above: Performed By: #### Batsheva BARAHONA [facility], ####[facility] ([id number])[address] [address] Hematocrit (Bld) [Volume fraction] 40.1 % Normal 35-47 [facility] Comment on above: Performed By: #### Batsheva BARAHONA [facility], ####[facility] ([id number])[address] [address], [place] [address] Hemoglobin (Bld) [Mass/Vol] 13.4 g/dL Normal 11.7-15.5 [facility] Comment on above: Performed By: #### Batsheva BARAHONA CMP, ####[facility] ([id number])[address] [address] Lymphocytes (Bld) [#/Vol] 0.8 10*3/uL Low 1.0-3.5 [facility] Comment on above: Performed By: #### C BROOKLYN, CMP, ####[facility] ([id number])[address], [place] [address] Lymphocytes/100 WBC (Bld) 5.7 % Normal [facility] Comment on above: Performed By: #### C BROOKLYN, CMP, ####[facility] ([id number])[address], [place] [address] MCH (RBC) [Entitic mass] 28.7 pg Normal 27-34 [facility] Comment on above: Performed By: #### C BROOKLYN, CMP, ####[facility] ([id number])[address], [address], [place] [address] MCHC (RBC) [Mass/Vol] 33.6 g/dL Normal 32-36 [facility] Comment on above: Performed By: #### C BROOKLYN, CMP, ####[facility] ([id number])[address], [address] [place] [address] MCV (RBC) [Entitic vol] 85 fL Normal 80-100 [facility] Comment on above: Performed By: #### Batsheva BARAHONA, CMP, ####[facility] ([id number])[address] [address] [place] [address] Monocytes (Bld) [#/Vol] 0.8 10*3/uL Normal 0-0.9 [facility] Comment on above: Performed By: #### C BROOKLYN, CMP, ####[facility] ([id number])[address] [address] [place] [address] Monocytes/100 WBC (Bld) 5.9 % Normal [facility] Comment on above: Performed By: #### C BCA, CMP, ####[facility] ([id number])[address] [address] [place] [address] Neutrophils/100 WBC (Bld) 88.2 % Normal [facility] Comment on above: Performed By: #### Batsheva BARAHONA, CMP, 22572-4 ####[facility] ([id number])[address] [address], [place] [address] Platelet mean volume (Bld) [Entitic vol] 8.5 fL Normal 7-12 [facility] Comment on above: Performed By: #### Batsheva BARAHONA, CMP, 36510-8 ####[facility] ([id number])[address] [address] Platelets (Bld) [#/Vol] 96 10*3/uL Low 150-450 [facility] Comment on above: Performed By: #### Batsheva BARAHONA, CMP, 76178-6 ####[facility] ([id number])[address] [address] RBC COUNT 4.69 X10E12/L Normal 3.80-5.20 [facility] Comment on above: Performed By: #### Batsheva BARAHONA, CMP, 78403-7 ####[facility] ([id number])[address] [address] WBC (Bld) [#/Vol] 13.7 10*3/uL High 4.0-11.0 [facility] Comment on above: Performed By: #### Batsheva BARAHONA, CMP, 64651-7 ####[facility] ([id number])[address] [place] [address] CBC auto differentialon 03-09 Basophils (Bld) [#/Vol] 0.0 10*3/uL [facility] Basophils/100 WBC (Bld) 0.1 % [facility] Eosinophils (Bld) [#/Vol] 0.0 10*3/uL [facility] Monocytes/100 WBC (Bld) 5.9 % [facility] Neutrophils (Bld) [#/Vol] 12.1 10*3/uL High [facility] Neutrophils/100 WBC (Bld) 88.2 % [facility] Platelet mean volume (Bld) [Entitic vol] 8.5 fL 7 - 12 fL [facility] Platelets (Bld) [#/Vol] 96 10*3/uL Low P [facility] RBC (Bld) [#/Vol] 4.69 10*6/uL [facility] WBC corrected for nucl RBC Auto (Bld) [#/Vol] 13.7 High [facility] COMPREHENSIVE METABOLIC PANE [place] 04-03-2023 Albumin [Mass/Vol] 4.0 g/dL Normal 3.2-5.3 [facility] Comment on above: Performed By: #### C BCA, CMP, 80608-5 ####[facility] ([id number])[address] [facility], [address], [place] [address] ALP [Catalytic activity/Vol] 71 U/L Normal 39-130 [facility] Comment on above: Performed By: #### C BROOKLYN CMP, ####[facility] ([id number])[address], [place] [address] ALT [Catalytic activity/Vol] 9 U/L Normal 0-31 [facility] Comment on above: Performed By: #### C BROOKLYN, CMP, ####[facility] ([id number])[address], [place] [address] Anion gap [Moles/Vol] 9 mmol/L Normal 5-15 [facility] Comment on above: Performed By: #### C BROOKLYN CMP, ####[facility] ([id number])[address], [place] [address] AST [Catalytic activity/Vol] 19 U/L Normal 0-41 [facility] Comment on above: Performed By: #### C BROOKLYN, CMP, ####[facility] ([id number])[address], [place] [address] Bilirubin [Mass/Vol] 0.6 mg/dL Normal 0.3-1.2 [facility] Comment on above: Performed By: #### C BROOKLYN, CMP, ####[facility] [facility] ([id number])[address], [place] [address] Calcium [Mass/Vol] 9.6 mg/dL Normal 8.5-10.5 [facility] Comment on above: Performed By: #### C BROOKLYN, CMP, ####[facility] ([id number])[address], [place] [address] Chloride [Moles/Vol] 109 mmol/L Normal 98-109 [facility] Comment on above: Performed By: #### C BCA, [facility], ####[facility] ([id number])[address] [address] [address] CO2 [Moles/Vol] 26 mmol/L Normal 22-32 [facility] Comment on above: Performed By: #### C BROOKLYN [facility], ####[facility] ([id number])[address], [address], [place] [address] Creatinine [Mass/Vol] 0.74 mg/dL Normal 0.40-1.00 [facility] Comment on above: Result Comment: METH OD TRACEABLE TO IDMS STANDARD Performed By: #### C JACOB BARAHONA, ####[facility] ([id number])[address] [address] [address] GFR/1.73 sq M.predicted among non-blacks MDRD (S/P/Bld) [Vol rate/Area] 82 mL/min/{1.73_m2} Normal >59 [facility] Comment on above: Result Comment: Repo rted eGFR is based on theCKD-EPI 2020 equation that doesnot use a race coefficient. Performed By: #### C BROOKLYN [facility], ####[facility] ([id number])[address] [address] [place] [address] Glucose [Mass/Vol] 114 mg/dL High 65-99 [facility] Comment on above: Performed By: #### C BROOKLYN [facility], ####[facility] ([id number])[address] [address], [place] [address] Potassium [Moles/Vol] 3.9 mmol/L Normal 3.5-5.0 [facility] Comment on above: Performed By: #### C BROOKLYN [facility], ####[facility] ([id number])[address] [address] [place] [address] Protein [Mass/Vol] 7.2 g/dL Normal 6.0-8.0 [facility] Comment on above: Performed By: #### C BCA, CMP, [id number] ####[facility] ([id number])[address], [place] [address] Sodium [Moles/Vol] 144 mmol/L Normal 134-146 [facility] Comment on above: Performed By: #### C BCA, CMP, 93688-8 ####[facility] ([id number])[address], [place] [address] Urea nitrogen [Mass/Vol] 27 mg/dL Normal 5-27 [facility] Comment on above: Performed By: #### C BCA, CMP, 39570-9 ####[facility] ([id number])[address], [address] [place] [address]RAIN WO CONTon CT BRAIN WO CONT Normal [facility] CT Head WO contraston [address] [facility] [employer] Cardiac echo study Procedure Ordered By: Aquiles Coker on 04-03-2023 Aortic root 3.30 cm [facility] [employer] Work Phone: AV mean gradient 9.00 mmHg [facility] [employer] Work Phone: AV peak gradient 13.84 mmHg [facility] [employer] Work Phone: AV peak edson 186.00 cm/s [facility] [employer] Work Phone: AV valve area 2.39 cm2 [employer] Work Phone: AV Velocity Ratio 0.76 [facility] [employer] Work Phone: AV VTI 41.20 cm [facility] Work Phone: E wave deceleration time 210.00 msec [facility] Work Phone: E/A ratio 0.75 [employer] Work Phone: Energy loss index 1.94 [employer] Work Phone: FS 31 % 28 - 44 % [employer] Work Phone: Interventricular Septum Diastolic Thickness by 2D 9 cm [employer] Work Phone: IVS 0.90 cm 0.6 - 1.1 cm [employer] Work Phone: LA size 3.30 cm [employer] Work Phone: LA volume 30.70 cm3 [employer] Work Phone: LA Volume Index 17.7 mL/m2 [employer] Work Phone: Left Ventricle Mass 123.792942143032213 g [employer] Work Phone: LV ESV A2C 28.70 mL [employer] Work Phone: LV ESV A4C 29.20 mL [employer] Work Phone: LV RWT 2D 35.56 [employer] Work Phone: LVIDd 4.50 cm 4.03 - 5.60 cm [employer] Work Phone: LVIDs 3.10 cm 2.39 - 3.62 cm [employer] Work Phone: LVOT diameter 2.00 cm [employer] Work Phone: LVOT peak edson 1.51 m/s [employer] Work Phone: LVOT peak VTI 31.30 cm [employer] Work Phone: LVOT stroke volume 98.33 ml [employer] Work Phone: MV Peak A Edson 122.00 cm/s [employer] Work Phone: MV Peak E Edson 91.40 cm/s [employer] Work Phone: MV pressure 1/2 time 62.00 ms [facility] Work Phone: MV TDI E' (medial) 7.51 cm/s [facility] [employer] Work Phone: MV valve area p 1/2 method 3.55 cm2 [facility] [employer] Work Phone: PW 0.80 cm 0.6 - 1.1 cm [facility] Work Phone: TAPSE 1.87 cm [facility] [employer] Work Phone: TDI 7.62 cm/s [facility] [employer] Work Phone: Valve area - Index 1.4 [facility] Work Phone: ZLVIDD -0.54 [facility] Work Phone: ZLVIDS 0.42 [facility] Work Phone: [facility] Work Phone: Cardiac echo study Procedure on 04-03-2023 XCELERA Radiology Study observation (narrative) [facility] Comprehensive metabolic pane dennis 04-03-2023 Albumin [Mass/Vol] 4.0 g/dL 3.2 - 5.3 g/dL [facility] ALP [Catalytic activity/Vol] 71 U/L 39 - 130 U/L [facility] ALT No additional P-5'-P [Catalytic activity/Vol] 9 U/L 0 - 31 U/L [facility] Anion gap [Moles/Vol] 9 mmol/L 5 - 15 mmol/L [facility] AST [Catalytic activity/Vol] 19 U/L 0 - 41 U/L [facility] Bilirubin [Mass/Vol] 0.6 mg/dL 0.3 - 1 .2 mg/dL [facility] Calcium [Mass/Vol] 9.6 mg/dL 8.5 - 10. 5 mg/dL [facility] Chloride [Moles/Vol] 109 mmol/L 98 - 10 9 mmol/L [facility] CO2 [Moles/Vol] 26 mmol/L 22 - 32 mmol/L [facility] Creatinine [Mass/Vol] 0.74 mg/dL 0.40 - 1.00 mg/dL [facility] eGFR (CKD-EPI)non-race dependent 82 - PINF [facility] Glucose [Mass/Vol] 114 mg/dL High 65 - 99 mg/dL [facility] Interpretation and review of laboratory results Abnormal [facility] Potassium [Moles/Vol] 3.9 mmol/L 3.5 - 5.0 mmol/L [facility] Protein [Mass/Vol] 7.2 g/dL 6.0 - 8.0 g/dL [facility] Sodium [Moles/Vol] 144 mmol/L 134 - 146 mmol/L [facility] Urea nitrogen [Mass/Vol] 27 mg/dL 5 - 27 mg/dL [facility] DISCONTINUE IN PROCESS EEG T ESTINGOrdered By: Documentation Systemgenerated on 04-03-2023 [facility] Work Phone: Holter monitor studyon 04-03 MANUALLY TRANSCRIBED RESULTS [facility] MANUALLY TRANSCRIBED RESULTS [facility] MAGNESIUMon 04-03-2023 Magnesium [Mass/Vol] 2.0 mg/dL Normal 1.8-2.6 [facility] Comment on above: Performed By: #### C BCA, [facility], 44904-0 ####[facility] ([id number])[address], [address] [place] [address] MRSA DNA MARYCHUY+probe Ql (Unsp spec)on 04-03-2023 [facility] MRSA PCR NASALon 04-03-2023 MRSA DNA MARYCHUY+probe Ql (Unsp spec) Negative Normal NEG [facility] Comment on above: Performed By: #### 3 5492-8 ####[facility] ([id number])[address] [facility], [address] [place] [address] Magnesiumon 04-03-2023 Magnesium [Mass/Vol] 2.0 mg/dL 1.8 - 2 .6 mg/dL [facility] Magnesium [Mass/Vol]on 04-03 [facility] RESP PATHOGENS/[id number] 04-03-2023 Respiratory pathogens DNA and RNA panel MARYCHUY+non-probe (Nph) Normal [facility] Respiratory pathogens DNA an d RNA panel MARYCHUY+non-probe (Nph)on 04-03-2023 Adenovirus DNA MARYCHUY+non-probe Ql (Nph) Not detected Not Detected^N ot Detected [facility] B. parapertussis [id number] DNA MARYCHUY+non-probe Ql (Nph) Not detected Not Detected^N ot Detected [facility] B. pertussis toxin promoter region MARYCHUY+non-probe Ql (Nph) Not detected Not Detected^N ot Detected [facility] C. pneumoniae DNA MARYCHUY+non-probe Ql (Nph) Not detected Not Detected^N ot Detected [facility] FLUAV RNA MARYCHUY+non-probe Ql (Nph) Not detected Not Detected^N ot Detected [facility] FLUBV RNA MARYCHUY+non-probe Ql (Nph) Not detected Not Detected^N ot Detected [facility] HCoV 229E RNA MARYCHUY+non-probe Ql (Nph) Not detected Not Detected^N ot Detected [facility] HCoV HKU1 RNA MARYCHUY+non-probe Ql (Nph) Not detected Not Detected^N ot Detected [facility] HCoV NL63 RNA MARYCHUY+non-probe Ql (Nph) Not detected Not Detected^N ot Detected [facility] HCoV OC43 RNA MARYCHUY+non-probe Ql (Nph) Not detected Not Detected^N ot Detected [facility] hMPV RNA MARYCHUY+non-probe Ql (Nph) Not detected Not Detected^N ot Detected [facility] M. pneumoniae DNA MARYCHUY+non-probe Ql (Nph) Not detected Not Detected^N ot Detected [facility] Parainfluenza virus 1 RNA MARYCHUY+non-probe Ql (Nph) Not detected Not Detected^N ot Detected [facility] Parainfluenza virus 2 RNA MARYCHUY+non-probe Ql (Nph) Not detected Not Detected^N ot Detected [facility] Parainfluenza virus 3 RNA MARYCHUY+non-probe Ql (Nph) Not detected Not Detected^N ot Detected [facility] Parainfluenza virus 4 RNA MARYCHUY+non-probe Ql (Nph) Not detected Not Detected^N ot Detected [facility] Rhinovirus+Enterovirus RNA MARYCHUY+non-probe Ql (Nph) Not detected Not Detected^N ot Detected [facility] RSV RNA MARYCHUY+non-probe Ql (Nph) Not detected Not Detected^N ot Detected [facility] SARS-CoV-2 (COVID-19) RNA MARYCHUY+probe Ql (Resp) Not detected Not Detected^N ot Detected [facility] Specimen source Nom (Body fld) NASO PHARYNX [facility] X-ray abdomen NG Tube placem ent 1 [facility]03[facility] (narrative) [facility] X-ray abdomen NG Tube placem ent 1 viewOrdered By: Caro Gilliland on 04-03-2023 [facility] Work Phone: XR ABD NG TUBE PLACEMENT 1 V IEWon 04-03-2023 XR ABD NG TUBE PLACEMENT 1 VIEW Normal [facility] XR CHEST 1 VWon 04-03-2023 XR CHEST 1 VW Normal [facility] XR Chest Single [facility]on 04-[facility] (narrative) [facility] CBC AND AUTO DIFFon 04-02-20 23 ABSOLUTE BASOPHIL 0.0 X10E9/L Normal 0.0-0.2 [facility] Comment on above: Performed By: #### C BCA ####[facility] ([id number])[address], [address] [place] [address] ABSOLUTE NEUTROPHIL 11.5 X10E9/L High 1.5-6.6 [facility] Comment on above: Performed By: #### C BCA ####[facility] ([id number])[address], [address] [place] [address] Basophils/100 WBC (Bld) 0.4 % Normal [facility] Comment on above: Performed By: #### C BCA ####[facility] ([id number])[address], [address] [place] [address] Eosinophils (Bld) [#/Vol] 0.0 10*3/uL Normal 0.0-0.4 [facility] Comment on above: Performed By: #### C BCA ####[facility] ([id number])[address], [address], [place] [address] Eosinophils/100 WBC (Bld) 0.0 % Normal [facility] Comment on above: Performed By: #### C BCA ####[facility] ([id number])[address], [address], [place] [address] Erythrocyte distribution width (RBC) [Ratio] 15.3 % High 11.5-15.0 [facility] Comment on above: Performed By: #### C BCA ####[facility] ([id number])[address], [address], [place] [address] Hematocrit (Bld) [Volume fraction] 39.1 % Normal 35-47 [facility] Comment on above: Performed By: #### C BCA ####[facility] ([id number])[address], [address], [place] [address] Hemoglobin (Bld) [Mass/Vol] 13.1 g/dL Normal 11.7-15.5 [facility] Comment on above: Performed By: #### C BCA ####[facility] ([id number])[address], [place] [address] Lymphocytes (Bld) [#/Vol] 0.6 10*3/uL Low 1.0-3.5 [facility] Comment on above: Performed By: #### C BCA ####[facility] ([id number])[address], [address], [place] [address] Lymphocytes/100 WBC (Bld) 4.7 % Normal [facility] Comment on above: Performed By: #### C BCA ####[facility] ([id number])[address], [address], [place] [address] MCH (RBC) [Entitic mass] 28.6 pg Normal 27-34 [facility] Comment on above: Performed By: #### C BCA ####[facility] ([id number])[address] [address] MCHC (RBC) [Mass/Vol] 33.4 g/dL Normal 32-36 [facility] Comment on above: Performed By: #### C BCA ####[facility] ([id number])[address], [address], [place] [address] MCV (RBC) [Entitic vol] 86 fL Normal 80-100 [facility] Comment on above: Performed By: #### C BCA ####[facility] ([id number])[address] [address], [place] [address] Monocytes (Bld) [#/Vol] 0.6 10*3/uL Normal 0-0.9 [facility] Comment on above: Performed By: #### C BCA ####[facility] ([id number])[address] [address] [address] Monocytes/100 WBC (Bld) 4.6 % Normal [facility] Comment on above: Performed By: #### C BCA ####[facility] ([id number])[address] [address] [address] Neutrophils/100 WBC (Bld) 90.3 % Normal [facility] Comment on above: Performed By: #### C BCA ####[facility] ([id number])[address] [address] [place] [address] Platelet mean volume (Bld) [Entitic vol] 8.8 fL Normal 7-12 [facility] Comment on above: Performed By: #### C BCA ####[facility] ([id number])[address] [place] [address] Platelets (Bld) [#/Vol] 114 10*3/uL Low 150-450 [facility] Comment on above: Performed By: #### C BCA ####[facility] ([id number])[address], [place] [address] RBC COUNT 4.56 X10E12/L Normal 3.80-5.20 [facility] Comment on above: Performed By: #### C BCA ####[facility] ([id number])[address], [place] [address] WBC (Bld) [#/Vol] 12.7 10*3/uL High 4.0-11.0 [facility] Comment on above: Performed By: #### C BCA ####[facility] ([id number])[address], [place] [address] COMPREHENSIVE METABOLIC PANE [facility] 04-02-2023 Albumin [Mass/Vol] 4.0 g/dL Normal 3.2-5.3 [facility] Comment on above: Performed By: #### C MP ####[facility] ([id number])[address], [place] [address] ALP [Catalytic activity/Vol] 71 U/L Normal 39-130 [facility] Comment on above: Performed By: #### C MP ####[facility] ([id number])[address] [place] [address] ALT [Catalytic activity/Vol] 9 U/L Normal 0-31 [facility] Comment on above: Performed By: #### C MP ####[facility] ([id number])[address], [place] [address] Anion gap [Moles/Vol] 13 mmol/L Normal 5-15 [facility] Comment on above: Performed By: #### C MP ####[facility] ([id number])[address], [place] [address] AST [Catalytic activity/Vol] 15 U/L Normal 0-41 [facility] Comment on above: Performed By: #### C MP ####[facility] ([id number])[address], [place] [address] Bilirubin [Mass/Vol] 0.6 mg/dL Normal 0.3-1.2 [facility] Comment on above: Performed By: #### C MP ####[facility] ([id number])[address], [place] [address] Calcium [Mass/Vol] 9.6 mg/dL Normal 8.5-10.5 [facility] Comment on above: Performed By: #### C MP ####[facility] ([id number])[address] [address], [place] [address] Chloride [Moles/Vol] 105 mmol/L Normal 98-109 [facility] Comment on above: Performed By: #### C MP ####[facility] ([id number])[address] [address], [place] [address] CO2 [Moles/Vol] 27 mmol/L Normal 22-32 [facility] Comment on above: Performed By: #### C MP ####[facility] ([id number])[address] [address], [place] [address] Creatinine [Mass/Vol] 0.72 mg/dL Normal 0.40-1.00 [facility] Comment on above: Result Comment: METH OD TRACEABLE TO IDMS STANDARD Performed By: #### C MP ####[facility] ([id number])[address] [address], [place] [address] GFR/1.73 sq M.predicted among non-blacks MDRD (S/P/Bld) [Vol rate/Area] 84 mL/min/{1.73_m2} Normal >59 [facility] Comment on above: Result Comment: Repo rted eGFR is based on theCKD-EPI 2020 equation that doesnot use a race coefficient. Performed By: #### C MP ####[facility] ([id number])[address] [address] Glucose [Mass/Vol] 123 mg/dL High 65-99 [facility] Comment on above: Performed By: #### C MP ####[facility] ([id number])[address] [address], [place] [address] Potassium [Moles/Vol] 3.5 mmol/L Normal 3.5-5.0 [facility] Comment on above: Performed By: #### C MP ####[facility] ([id number])[address] [address], [place] [address] Protein [Mass/Vol] 7.2 g/dL Normal 6.0-8.0 [facility] Comment on above: Performed By: #### C MP ####[facility] ([id number])[address] [address], [place] [address] Sodium [Moles/Vol] 145 mmol/L Normal 134-146 [facility] Comment on above: Performed By: #### C MP ####[facility] ([id number])[address] [address], [place] [address] Urea nitrogen [Mass/Vol] 19 mg/dL Normal 5-27 [facility] Comment on above: Performed By: #### C MP ####[facility] ([id number])[address], [place] [address] CT BRAIN WO CONTon CT BRAIN WO CONT Normal [facility] Glucose Glucometer (BldC) [M ass/Vol]on 04-02-2023 Glucose [Mass/Vol] 124 mg/dL High 65-99 [facility] POTASSIUMon 04-02-2023 Potassium [Moles/Vol] 3.9 mmol/L Normal 3.5-5.0 [facility] Comment on above: Performed By: #### 2 823-3 ####[facility] ([id number])[address] [place] [address] Potassium [Moles/Vol] 3.7 mmol/L Normal 3.5-5.0 [facility] Comment on above: Performed By: #### 2 823-3 ####[facility] ([id number])[address] [address] XR CHEST 1 VWon 04-02-2023 XR CHEST 1 VW Normal [facility] CBC AND AUTO DIFFon 04-01-20 ABSOLUTE BASOPHIL 0.0 X10E9/L Normal 0.0-0.2 [facility] Comment on above: Performed By: #### C GUMARO, 36589-1, CBCA, PINR, [id number] ####[facility] ([id number])[address] [address] ABSOLUTE NEUTROPHIL 5.7 X10E9/L Normal 1.5-6.6 [facility] Comment on above: Performed By: #### C GUMARO, 31870-4, CBCA, PINR, [id number] ####[facility] ([id number])[address] [place] [address] Basophils/100 WBC (Bld) 0.3 % Normal [facility] Comment on above: Performed By: #### C GUMARO, 45045-1, CBCA, PINR, [id number] ####[facility] ([id number])[address] [place] [address] Eosinophils (Bld) [#/Vol] 0.0 10*3/uL Normal 0.0-0.4 [facility] Comment on above: Performed By: #### C GUMARO, 46831-8, CBCA, PINR, [id number] ####[facility] ([id number])[address] [address] [place] [address] Eosinophils/100 WBC (Bld) 0.5 % Normal [facility] Comment on above: Performed By: #### C GUMARO, 75755-4, CBCA, PINR, [id number] ####[facility] ([id number])[address] [address] Erythrocyte distribution width (RBC) [Ratio] 15.3 % High 11.5-15.0 [facility] Comment on above: Performed By: #### C GUMARO, 12517-0, CBCA, PINR, [id number] ####[facility] ([id number])[address] [address] Hematocrit (Bld) [Volume fraction] 38.1 % Normal 35-47 [facility] Comment on above: Performed By: #### C GUMARO, 39303-9, CBCA, PINR, [id number] ####[facility] ([id number])[address] [address] Hemoglobin (Bld) [Mass/Vol] 13.1 g/dL Normal 11.7-15.5 [facility] Comment on above: Performed By: #### C GUMARO, 49604-2, CBCA, PINR, [id number] ####[facility] ([id number])[address] [address] Lymphocytes (Bld) [#/Vol] 0.8 10*3/uL Low 1.0-3.5 [facility] Comment on above: Performed By: #### C GUMARO, 30121-4, CBCA, PINR, [id number] ####[facility] ([id number])[address] [address], [place] [address] Lymphocytes/100 WBC (Bld) 11.2 % Normal [facility] Comment on above: Performed By: #### C GUMARO, 62285-5, CBCA, PINR, [id number] ####[facility] ([id number])[address] [address], [place] [address] MCH (RBC) [Entitic mass] 29.4 pg Normal 27-34 [facility] Comment on above: Performed By: #### C GUMARO, 26323-5, CBCA, PINR, [id number] ####[facility] ([id number])[address] [address] [place] [address] MCHC (RBC) [Mass/Vol] 34.4 g/dL Normal 32-36 [facility] Comment on above: Performed By: #### C GUMARO, 51474-6, CBCA, PINR, [id number] ####[facility] ([id number])[address] [address], [place] [address] MCV (RBC) [Entitic vol] 85 fL Normal 80-100 [facility] Comment on above: Performed By: #### C GUMARO, 45986-3, CBCA, PINR, [id number] ####[facility] ([id number])[address] [address] [place] [address] Monocytes (Bld) [#/Vol] 0.4 10*3/uL Normal 0-0.9 [facility] Comment on above: Performed By: #### C GUMARO, 17703-6, CBCA, PINR, [id number] ####[facility] ([id number])[address] [address] [address] Monocytes/100 WBC (Bld) 6.0 % Normal [facility] Comment on above: Performed By: #### C GUMARO, 56088-3, CBCA, PINR, [id number] ####[facility] ([id number])[address] [address], [place] [address] Neutrophils/100 WBC (Bld) 82.0 % Normal [facility] Comment on above: Performed By: #### [place], 61074-4, CBCA, PINR, 49778-0 ####[facility] ([id number])[address] [address], [place] [address] Platelet mean volume (Bld) [Entitic vol] 8.5 fL Normal 7-12 [facility] Comment on above: Performed By: #### C GUMARO, 94230-8, CBCA, PINR, 71714-5 ####[facility] ([id number])[address] [address], [place] [address] Platelets (Bld) [#/Vol] 91 10*3/uL Low 150-450 P [facility] Comment on above: Performed By: #### C GUMARO, 91643-2, CBCA, PINR, 96254-6 ####[facility] ([id number])[address] [address] [address] RBC COUNT 4.46 X10E12/L Normal 3.80-5.20 [facility] Comment on above: Performed By: #### C GUMARO, 70513-9, CBCA, PINR, 98910-6 ####[facility] ([id number])[address] [address], [place] [address] RBC morphology finding Nom (Bld) NORMAL Normal [facility] Comment on above: Performed By: #### C MP, 68313-5, CBCA, PINR, 33066-3 ####[facility] ([id number])[address] [address], [place] [address] WBC (Bld) [#/Vol] 6.9 10*3/uL Normal 4.0-11.0 [facility] Comment on above: Performed By: #### C MP, 15653-3, CBCA, PINR, 65384-8 ####[facility] ([id number])[address], [place] [address] COMPREHENSIVE METABOLIC PANE Dennis 04-01-2023 Albumin [Mass/Vol] 3.9 g/dL Normal 3.2-5.3 [facility] Comment on above: Performed By: #### C MP, 56813-4, CBCA, PINR, 91778-8 ####[facility] ([id number])[address], [address], [place] [address] ALP [Catalytic activity/Vol] 72 U/L Normal 39-130 [facility] Comment on above: Performed By: #### C MP, 25895-4, CBCA, PINR, 18287-2 ####[facility] ([id number])[address], [address], [place] [address] ALT [Catalytic activity/Vol] 7 U/L Normal 0-31 [facility] Comment on above: Performed By: #### C MP, 07806-4, CBCA, PINR, 99030-7 ####[facility] ([id number])[address], [address], [place] [address] Anion gap [Moles/Vol] 9 mmol/L Normal 5-15 [facility] Comment on above: Performed By: #### C MP, 17796-3, CBCA, PINR, 77347-4 ####[facility] ([id number])[address], [address], [place] [address] AST [Catalytic activity/Vol] 13 U/L Normal 0-41 [facility] Comment on above: Performed By: #### C MP, 45138-3, CBCA, PINR, 93128-7 ####[facility] ([id number])[address] [address], [place] [address] Bilirubin [Mass/Vol] 0.5 mg/dL Normal 0.3-1.2 [facility] Comment on above: Performed By: #### C MP, 27723-1, CBCA, PINR, 72342-2 ####[facility] ([id number])[address], [address], [place] [address] Calcium [Mass/Vol] 9.6 mg/dL Normal 8.5-10.5 [facility] Comment on above: Performed By: #### C GUMARO, 48974-0, CBCA, PINR, 02974-5 ####[facility] ([id number])[address] [address], [place] [address] Chloride [Moles/Vol] 105 mmol/L Normal 98-109 [facility] Comment on above: Performed By: #### C GUMARO, 19967-2, CBCA, PINR, 18366-8 ####[facility] ([id number])[address] [address], [place] [address] CO2 [Moles/Vol] 27 mmol/L Normal 22-32 [facility] Comment on above: Performed By: #### C GUMARO, 37313-7, CBCA, PINR, 89038-6 ####[facility] ([id number])[address] [address], [place] [address] Creatinine [Mass/Vol] 0.63 mg/dL Normal 0.40-1.00 [facility] Comment on above: Result Comment: METH OD TRACEABLE TO IDMS STANDARD Performed By: #### C GUMARO, 17823-2, CBCA, PINR, 94416-5 ####[facility] ([id number])[address] [address], [place] [address] GFR/1.73 sq M.predicted among non-blacks MDRD (S/P/Bld) [Vol rate/Area] 90 mL/min/{1.73_m2} Normal >59 [facility] Comment on above: Result Comment: Repo rted eGFR is based on theCKD-EPI 2020 equation that doesnot use a race coefficient. Performed By: #### C GUMARO, 25230-8, CBCA, PINR, 36610-5 ####[facility] ([id number])[address], [address], [place] [address] Glucose [Mass/Vol] 112 mg/dL High 65-99 [facility] Comment on above: Performed By: #### C GUMARO, 08703-2, CBCA, PINR, 45828-7 ####[facility] ([id number])[address], [address], [place] [address] Potassium [Moles/Vol] 3.3 mmol/L Low 3.5-5.0 [facility] Comment on above: Performed By: #### C GUMARO, 73915-5, CBCA, PINR, 65294-7 ####[facility] ([id number])[address], [address], [place] [address] Protein [Mass/Vol] 6.9 g/dL Normal 6.0-8.0 [facility] Comment on above: Performed By: #### C GUMARO, 39951-7, CBCA, PINR, 68891-5 ####[facility] ([id number])[address], [address], [place] [address] Sodium [Moles/Vol] 141 mmol/L Normal 134-146 [facility] Comment on above: Performed By: #### C GUMARO, 56259-9, CBCA, PINR, 00712-9 ####[facility] ([id number])[address], [address], [place] [address] Urea nitrogen [Mass/Vol] 12 mg/dL Normal 5-27 [facility] Comment on above: Performed By: #### C GUMARO, 38971-2, CBCA, PINR, 92618-4 ####[facility] ([id number])[address], [address] [place] [address] BRAIN WO CONTon 3 CT BRAIN WO CONT Normal [facility] Glucose Glucometer (BldC) [M ass/Vol]on 04-01-2023 Glucose [Mass/Vol] 101 mg/dL High 65-99 [facility] HGB A1C (GLYCO-HGB)on 2022 Glucose [Mass/Vol] 111 mg/dL Normal [facility] Comment on above: Performed By: #### C GUMARO, 68742-5, CBCA, PINR, 48025-5 ####[facility] ([id number])[address], [address] [place] [address] HbA1c (Bld) [Mass fraction] 5.5 % Normal 4.4-5.6 [facility] Comment on above: Result Comment: NOTE ADA Guidelines Result HgbA1c Normal : less than 5.7 % Prediabetes : 5.7 % to 6.4 % Diabetes : > 6.4 %Use with caution in patients with abnormal hemoglobin variants asthe half-life of red blood cells and in vivo glycation rates areaffected. Performed By: #### C GUMARO, 69158-0, CBCA, PINR, 01972-7 ####[facility] ([id number])[address], [address] [place] [address] Lipid 1996 panelon 3 Cholesterol [Mass/Vol] 243 mg/dL High 150-200 Pr [facility] Comment on above: Performed By: #### Batsheva NAIK, 78270-0, CBCA, PINR, 46177-7 ####[facility] ([id number])[address], [address], [place] [address] Cholesterol in HDL [Mass/Vol] 93 mg/dL Normal >39 [facility] Comment on above: Result Comment: HDL <40 mg/dL - High RiskHDL > or = 40mg/dL- DesirableHDL >60 mg/dL - Negative Risk Performed By: #### C GUMARO, 58606-4, CBCA, PINR, 33190-5 ####[facility] ([id number])[address], [address], [place] [address] Cholesterol in LDL [Mass/Vol] 130 mg/dL High <130 [facility] Comment on above: Result Comment: LDL <100 mg/dL - DesirableLDL >160 mg/dL - High Risk Performed By: #### C GUMARO, 88185-3, CBCA, PINR, 94949-3 ####[facility] ([id number])[address], [address], [place] [address] Cholesterol in VLDL [Mass/Vol] 20 mg/dL Normal 0-30 [facility] Comment on above: Performed By: #### C GUMARO, 52095-5, CBCA, PINR, 43901-3 ####[facility] ([id number])[address], [address], [place] [address] CHOLESTEROL:HDL 2.6 Normal 1.0-5.0 [facility] Comment on above: Performed By: #### C GUMARO, 09349-0, CBCA, PINR, 34621-7 ####[facility] ([id number])[address], [address], [place] [address] Triglyceride [Mass/Vol] 99 mg/dL Normal 27-150 [facility] Comment on above: Performed By: #### C GUMARO, 60931-4, CBCA, PINR, 73117-4 ####[facility] ([id number])[address], [address], [place] [address] PLATELET FUNCTIONon 04-01-20 COLLAGEN/ADP 103 sec Normal 0-114 [facility] Comment on above: Performed By: #### P FA ####[facility] ([id number])[address], [address] [place] [address] COLLAGEN/EPINEPHRINE >300 High 0-179 [facility] Comment on above: Performed By: #### P FA ####[facility] ([id number])[address] [address] PFA INTERP This pattern is indicative of drug induced Normal [facility] Comment on above: Result Comment: plat elet dysfunction. Review patientinformation for medication, includingaspirin that may affect platelet function.This pattern has also been reported inpatients with storage pool deficiency and/orplatelet function abnormalities. If either ofthese is a consideration, further plateletstudies are suggested. Performed By: #### P FA ####[facility] ([id number])[address] [address] PROTIME AND INRon 04-01-2023 INR Coag (PPP) [Relative time] 1.0 {INR} Normal 0.8-1.1 [facility] Comment on above: Performed By: #### C MP, 60074-5, CBCA, PINR, 55914-8 ####[facility] ([id number])[address] [address], [place] [address] PT Coag (PPP) [Time] 12.2 s Normal 9.8-13.2 [facility] Comment on above: Performed By: #### C MP, 86383-8, CBCA, PINR, 73922-9 ####[facility] ([id number])[address] [facility], [address] [place] [address] aPTT Coag (PPP) [Time]on aPTT Coag (Bld) [Time] 33 s Normal 26-37 Pr [facility] Comment on above: Performed By: #### C MP, 73158-9, CBCA, PINR, 80590-0 ####[facility] ([id number])[address] [facility], [address] [place] [address] Outside Progress Noteon 06-0 Outside Progress Note [id number] [id number]. 00CD:127 Normal [facility] Progress Note-Nurseon 2022 Progress Note-Nurse [id number] 0CD:127 Normal [facility] XR wrist RT min 3V*on 2022 XR wrist RT min 3V* [facility] [place] [place] [address] XRay Report Signed Patient: Ellen Chan MR#: [id number] 1 : 1945 Acct:[id number] Age/Sex: 77 / F ADM Date: 08/31/22 Loc: [facility] Room: Type: [facility] Attending Dr: Kate Mane MD [...] Kristin Linares M.D.08/31/2022 3:33 PM Dictation Location: [place] [address] Transcribed By: [facility] 08/31/221532 Dictated By: Kristin Linares II, MD 08/31/221531 Signed By: 08/31/22 153 Normal [facility] XR wrist RT min 3V* [facility] [employer] Other XR wrist RT min 3V* [facility] [employer] Other XR wrist RT min 3V* [address] [facility] [employer] Other XR wrist RT min 3V* [place] [address] [employer] Other XR wrist RT min 3V* XRay Report [employer] Other XR wrist RT min 3V* Signed [employer] Other XR wrist RT min 3V* Patient: George Chan MR#: [id number] [employer] Other XR wrist RT min 3V* 1 [employer] Other XR wrist RT min 3V* : 1945 Acct:[id number] [employer] Other XR wrist RT min 3V* Age/Sex: 77 / F ADM Date: 08/31/22 [employer] Other XR wrist RT min 3V* Loc: [facility] Room: Type : [facility] [employer] Other XR wrist RT min 3V* Attending Dr: Que Mane MD [employer] Other XR wrist RT min 3V* Copies to: Kate Mane MD [employer] Other XR wrist RT min 3V* Ordering Provider: Kate Mane MD [employer] Other XR wrist RT min 3V* Date of Service: 08/31/22 [employer] Other XR wrist RT min 3V* XR/XR wrist RT min 3V*: Other closed extra-articular fracture of distal [employer] Other XR wrist RT min 3V* end of right [employer] Other XR wrist RT min 3V* XR wrist RT min 3V* 08/31/2022 10:42 AM [employer] Other XR wrist RT min 3V* SIGNS AND SYMPTOMS: Status post fixation of distal radius fracture, follow-up [employer] Other XR wrist RT min 3V* PROTOCOL: Frontal, lateral, and oblique radiographs of the right wrist [employer] Other XR wrist RT min 3V* COMPARISON: 07/20/2022 [employer] Other XR wrist RT min 3V* FINDINGS: [employer] Other XR wrist RT min 3V* There is volar plate and screw fixation across a distal radius fracture. Healing remains incomplete. [employer] Other XR wrist RT min 3V* No change in alignme nt or hardware complication. There is diffuse osteopenia. There is a remote [employer] Other XR wrist RT min 3V* ulnar styloid fracture. The radiocarpal joint is unchanged. Degenerative changes are present at the [employer] Other XR wrist RT min 3V* base of the thumb. [employer] Other XR wrist RT min 3V* XR/XR wrist RT min 3V* [employer] Other XR wrist RT min 3V* IMPRESSION: [employer] Other XR wrist RT min 3V* Distal radius fractu re status post volar plate and screw fixation without change in alignment. [employer] Other XR wrist RT min 3V* Healing remains incomplete. [employer] Other XR wrist RT min 3V* Impression dictated by: Kristin Linares M.D.08/31/2022 3:33 PM [employer] Other XR wrist RT min 3V* Dictation Location: [place] [address] [employer] Other XR wrist RT min 3V* Transcribed By: PWS 08/31/22 1533 [employer] Other XR wrist RT min 3V* Dictated By: Kristin Linares II, MD 08/31/22 [facility] [employer] Other XR wrist RT min 3V* Signed By: [employer] Other XR wrist RT min 3V* 08/31/22 1533 No [employer] Other Consent for Treatmenton 08-07 Consent for Treatment [id number] [id number] 0CD:127 Normal [facility] and Vascular Office/Cl inic Noteon [...] Mother. Diabetes mellitus type 2: Father. Normal [facility] Comment on above: Result Comment: Elec tronically Signed By: Justino CUNNINGHAM, Leon Ruiz\.br\Date and Time Signed: 08/30/22 13:48 EDT XR wrist RT min 3V*on 2022 XR wrist RT min 3V* [facility] Main [place] [address] [place] [address] XRay Report Signed Patient: Ellen Chan MR#: [id number] 1 : 1945 Acct:[id number] Age/Sex: 77 / F ADM Date: 07/20/22 Loc: [facility] Room: Type: [facility] Attending Dr: Kate Mane MD [...] Quinonez Jr., DCaraOCara07/20/2022 2:40 PM Dictation Location: [place] [address] Transcribed By: [facility] 07/20/22 1440 Dictated By: Kit Quinonez Jr, DO 07/20/22 1439 Signed By: 07/20/22 1440 [facility] Coding Summary.on 06-21-2022 Coding Summary. CD:[id number] Gh 0bWw+PGhlYWQ+HD2XZCUkS 18nhBHfjP9eD7QBCCqZWhs dORNHSHsRHpNoksUyBA8os XNjZXJu IC8+EI9qDLKuAbbfdJWcf8 W7zBA1Z55tbo6qNUrvcBG2 JSTkMbNykuhgh8sreJt3OH cuNmluOyBt NZLefN06JKI6zL71Nd74pP JvlPXpj3njnGy5JtPtJVCn HWK1kKsnSByad8LyQMCoD1 9aqBSqh9D0 BYEseMnsaWLoDeZfbXJ9fL 8iDVdbebrxr7esibonKdg8 rs65tDBvb8Y1bYN3A0Yqgx F0RDWndVKv UzrewRLClD2oxzdqp3bjsq feTlRdNBFvKDj5FIw0WPFz wIdkGxVrVY13MSW5IMFbrr WuO3PiOBYd bUezLcQ2a8U3Vy6YZ5QCAk aoZ8YBIGFZPKabmBB+PC90 hv51Z3NpJofaUlt5EJVzON M3ePL7sR4x THMnPUnhg0J2gVM8M3Vprl Uimx4rr2czNFXxXPndJ13w rFJuk2Z6VAIgsJX5SWCeeW qiOcFtmN97 Oyc+KTZhzYmhc0HkEhpdv1 vfg6lhqNu2PvdmDEOoamUq jJpsRJM8v8ZoLz0tHNNxuJ G0zTZ7fZ6u NhZaMdL7ECyxH866WvUexF YoFovaT79dO8XfuBU+PHRy Rpe9VXUoeHflYY2aM2PrZB RpbmctbGVm sMmxTO8gSVQibautPFBcuQ 5rJOEeM5d3XuDyGjM4XJrd X0DtVTYgmybsTx72tD6jVc YfQlF4XDps W2GgqcM0OUTixOLlNRxmIQ N1X17wj2B0OEZoBGVxSYY1 gWD3oG9hxTqijetrnNRpwO sgdmVydGlj TNzfTHpdB233KQJfyUaaDk NvZGluZyBEYXRlOiAgMDMv MTYvMjAyMzwvdGQ+PHRkIH I9vJrhDQIc sUVgAGvgFd1jtDkugQjhCY 5sNJBalnvtLDVbkH3zZNGc lMNfvAlxZL2dLKTktsxrn8 58FrKgPKN2 IVGzvXKgN2UahD2iMyTzNV YoDXUvI4IhsTFlYIffK742 FSorRvX1DXLxyxSuN7TrBY FsaWduOiB0 n2I4At8Ns8BiecihS6ItmP IoQmBfWrtwQDd5I1GjAofm dHI+NW34FYOpHL84VXc6EB Y2lStmFLfn GBSkG5KcrC2sJjMzAAGsTB RkOyc+PHRhYmxlIHdpZHRo JEpnAVHyYmIorPnxFL1dSf 9yZGVyLWNv cMftbPZsMmCqn6thHRAcAC btSW4iiSugZ9DtcLU1YBLb a0v2Uh20V08gV5MgeGW+PG JryKU1cFG2 yH4iXnLnWqC9QNoaM036Ij JlnEObEehyg2maz1kbmUg5 StN3NPXhwxXpxTmiRMP4v3 GvFn82H16h IHdpZHRoPSIxNSUiIHZhbG zlgd4euV6wHv4+PGNvbCB3 fYG7zB0bJoNdZnN5VDnfI9 49InRvcCIv Wnrob9gxz0fftGn8OwFtXI QzorBqpWndIDP8x8HsVl64 H4QupFzyz7XhOlp9we90hM Kjr2M0kHS4 R2AoVRTimphlxBVhyXyzWZ 5yTNUmcszqSBFgtW4iPSDk N0m6PtNaCuK0HKgtJ4Dfkm V2LXSfqWPh EDJghXPRoA9immhry7bhrj dnBwJkQJVwUTw9GLv4GIQo tDcdSsKzQWM0NuL2UPQ4nV OfaS3wpEsj sahbxW1qBee+HCJ9nZHckV RVML8rVjulhBQ+PHRkIHN0 kWaoGZvjVXQweL2gNKBrO1 g6RfRmUyB6 QQrnF1TvkhC6ATSxpEDpCF YuqFAHwO6dznyiy3grerbf SzGyNDFaLQn6FZh4DBBpdD duOiBsZWZ0 BqZ8DOP0xMZxkD7gsPdpvn kxuZ6rNnv+QmlydGggRGF0 PIq8M9AhDbg7FJCsaLijMA 0ncGFkZGlu Rg1lpDmeaOmgLD9jSVHoah ujd701VfGgq3yrVBQkmGVp XWutVBP8Z32oj4V7JXYuFK DsOVN3iLT1 zI3qgGduvzzayFTduKwvzu KesHqkFOodFMcbM222DGHz bQhsCwKdTJb9J3NuUzt2DY YzzVfsTP8a iYZtTKtzMh7irKzciClzUW 2cTCGmzshzf765YsWdy1lu NZDxwDZmWSvhBZH2X16ww8 M2YWSfXTCk VRK0hCQ2xP0epBuquqlquB VmdDsgdmVydGljYWwtYWxp F669OKIevGorNfNjwOm1F1 VaFxq3HBBo iEfjTZ4ieJWrWAgnRb1zxK ptuHpiDI1uTQVwzxrix075 EkYau5xrSBPoiPJhWEcyCG O6K84lb8T1 ZUTqLYInNHS3gSD8xL2mwF lnbjogbGVmdDsgdmVydGlj JIzwBXrwF373ZEGpvFjaVe BhdGllbnQg SFllZLb8P5YkOxxgkJJ+PC 15WHFsLE27aZEwjXKgr1ty kCm3OwQsLWEbDOW7fLajKW rao4UeYPEs S59ikBLpc5H5QZRauAuqjA QzRbGnkUH5oP4tUGwoyjjz i7hnfbbiIdave0fgnb80jN 45C35sXNrn ZHRoPSIzMCUiIHZhbGlnbj 9qeJ8vPx3+IYHgqXA5eVF7 rC1jMOQtPaH6NIdoO647Pv RvcCIvPjxj w9ehi2yzmJb9TgC2LWZfwl PhyMnnHWT2m4KlKv37X00i IHdpZHRoPSIyMCUiIHZhbG fgne6kyA3d Ii8+CXSuaPH4uRE0yJ4mYl VgEqS8RBnuY464EjLvhRLm AcvfC87xX7HxsSV+PHRyPj d8ZSPfiJpd GP0jbWHkYHmiEy9dQVO0By VdJhMpGYobD6RdFDHxxheu llfqeWP8EGCsHHOeuC40Kk 9udDogMTBw eNBVlH2mtzdbr3plcjyvZq KcFRTwRKq0GMk5BPJpgOqs VoYuNAZ7ChA5SEO3yTTefC 1hbGlnbjog bR7nY2HoCNNhnphuAl48jZ 3bUkMgBlE7VTwnKpx+SEFZ K8LSRJeaKZ5UMHQ7R0WjGa g1ITOszXit NJ6oqXYmZHmyIx4ckRkevJ qnIX2pQSQqwdrcORFndO6n KFLwrZMqhMwcWT9zKKQaqv dbj177XdLe GBT6QBHqkLFiI8OsyE9xOt JmSUUoCASnF7AvoBCeCSlr F050QQlyGtU6RCNfvjQdD5 FsLWFsaWdu NjW9e3B4Qi2uHr1pGD3lPV VnLF09BO16iSUjp8F7dFC6 S1NbFYFfmyniluceiYU4VL AdPRLwhR68 gQWwNYrrWu4yk3Z1c037SE MjCWDofC86Rf5gqYemCZPo wYJOeH0oiygrh7jbdhapAo AwMDAwMDt0 DGu9KSNsvDliEiWgMDQ4Ue D2VUR4jAPvoB0evJbnnmao hM1cOsc+KdjrTODnwkB1I8 TrLhn1XDUd jApfMK7mlDPxHKbzPp6psL xehPlvAP7hMCSejhauQSPn hO7bQOBknGMlvXzsEU1eFJ Olibpbe388 IfLcMFD4KECgqGRmV0TctO 7nRiIkNWJwXKDlC9VtjROy LUgtY912KBgtNaF9WJMpky CnV0NoTFZr iScvNsY1a2H1Yz7IFL3djR D4W3TeAdx4ZAFnyKxtXD6u qCVfLUlwEb2ldQozzFsaMB 4wNTBpbjtw EZFxcB7yTWPamVWrtDvxEF 6aHXTlsrofb148TqKmSDT8 SYMujKJaW4AubV2uRnTrPM LeIFGjQ9En mCZvOUhcU751EWsiHuX6SR XaddArY2YrIVEjbAshTzJ1 i7J4Ny7TcRPmVMYaYY34ZM 46BV60X7Ip PjwvdGFibGU+PHRhYmxlIH dpZHRoPScxMDAlJyBzdHls FD9gJr3dGZGxIZTsmVezrO ZzTzUpj5lt LUEvZJdfIN6qmRknJ2RhsZ E8DGMyf9g7Dg11A19vN4Bk dXA+ELLrqIN4xXL0iE4qFb FpLiX5IEdw D056CzWttUQsRpgep3jyb9 sexFd1DuTxRHYhvvUhwJmw BGT7r6KmLu76V68nUSalBQ RoPSIyMCUi CHGkgVylzj3kfB7lJt9+PG NbjQP6cBM2dJ6dJuJdPqG3 RZapL489RyCuvNAwUkjoF5 1hJ6TqoVZ+ IAUxChh6VTCduTvpTD4tmA HnVHwzGh7iXSQ3BkBuFcPk RMnvI5ItJAGurifxxvzwlC F6AETvZQVf hA37Vv1heYujKl9nEWVyDT M0OSHyzRKmX0VfzR9jLzAb XQKiKJAwJ0UwjFAoPLrjF3 29PVcwAuR0 FACjdrZtT3CtYRRniHpjWj Z4p1C6Rt9QyHifzQZsYE1s ZmIzTIg1T9JyEqk2PLQsqM jiFJ9hyYBp DUplCq0xzVjmoUquJJ7nLR Alvpsfz030CiBwy9tfNQEs nIWtNYwnEYV5X70uw5F7EM MwMDAwMDA7 wER3lH3qfFifftjwqCXecK wuimWifUptREiyACvhD163 DJUgiMbsEkGYEud6V4QvJj j1MNZjuJoh BX1ujHDnTXtaTy1dcBjtiD nsOW6tOYEtawqlr443UhOj x4shJHOxmZBlUKxnOCS0O5 2xo5N0PXMw EKEfWZY1hHY8yO7ahNfnyi ogbGVmdDsgdmVydGljYWwt EPzaH150DDIxfCasFu2FAr z7G2ElJim9 WZIqxTcmAK9huHTrYVpdBl 9yhTmfiWohOM3lUTVdkntu b979GrQxj6yiBOVjySSzQC szBNG4S94u u6D1THQjRUJgWFE4zHX5hC 1hbGlnbjogbGVmdDsgdmVy aEkdVUvuOGmgQ037LKNrxD snPlBheWVy OjwvdGQ+CP62um42T1PqPr ceBev4AESoHFS4lJR6pC4a ADWpWZdys1N2rFU5K3Txke Myxo9wq5vs YXBz (more content not included)... Normal [facility] XR wrist RT min 3V*on 2022 XR wrist RT min 3V* [facility] Main [place] [address] [place] [address] XRay Report Signed Patient: Ellen Chan MR#: [id number] 1 : 1945 Acct:[id number] Age/Sex: 77 / F ADM Date: 06/20/22 Loc: [facility] Room: Type: [facility] Attending Dr: Kate Mane MD [...] FRACTURE. Impression dictated by: Kit Quinonez Jr., ErikaOCara06/20/2022 3:28 PM Dictation Location: RADIO-PC-12 Transcribed By: PWS 06/20/22 1528 Dictated By: Kit Quinonez Jr, DO 06/20/22 1520 Signed By: 06/20/22 1528 Normal [facility] XR wrist RT min 3V* [facility] [employer] Other XR wrist RT min 3V* [facility] [employer] Other XR wrist RT min 3V* [address] [facility] [employer] Other XR wrist RT min 3V* [place] [address] [employer] Other XR wrist RT min 3V* XRay Report [employer] Other XR wrist RT min 3V* Signed [employer] Other XR wrist RT min 3V* Patient: George Chan MR#: [id number] [place] [employer] Other XR wrist RT min 3V* 1 [employer] Other XR wrist RT min 3V* : 1945 Acct:[id number] [employer] Other XR wrist RT min 3V* Age/Sex: 77 / F ADM Date: 06/20/22 [employer] Other XR wrist RT min 3V* Loc: [facility] Room: Type : [facility] [employer] Other XR wrist RT min 3V* Attending Dr: Que Mane MD [employer] Other XR wrist RT min 3V* Copies to: Kate Mane MD [employer] Other XR wrist RT min 3V* Ordering Provider: Kate Mane MD [employer] Other XR wrist RT min 3V* Date of Service: 06/20/22 [employer] Other XR wrist RT min 3V* XR/XR wrist RT min 3V*: Other closed extra-articular fracture of distal [employer] Other XR wrist RT min 3V* end of right [employer] Other XR wrist RT min 3V* RIGHT WRIST - 4 views [employer] Other XR wrist RT min 3V* CLINICAL HISTORY: OR IF right distal radius fracture follow-up [employer] Other XR wrist RT min 3V* COMPARISON: Right wrist 05/23/2022 [employer] Other XR wrist RT min 3V* FINDINGS: [employer] Other XR wrist RT min 3V* Hardware fixation is seen involving the distal radius with a fracture grossly unchanged in [employer] Other XR wrist RT min 3V* alignment. The fracture line is less conspicuous suggestive of healing response. Styloid process [employer] Other XR wrist RT min 3V* fracture of the ulna is unchanged. Bones are grossly demineralized. Carpus demonstrate degenerative [employer] Other XR wrist RT min 3V* change. [employer] Other XR wrist RT min 3V* XR/XR wrist RT min 3V* [employer] Other XR wrist RT min 3V* IMPRESSION: [employer] Other XR wrist RT min 3V* HEALING DISTAL RADIU S FRACTURE. [employer] Other XR wrist RT min 3V* Impression dictated by: Erika Kruger Jr.OCara06/20/2022 3:28 PM [employer] Other XR wrist RT min 3V* Dictation Location: [place] [address] [employer] Other XR wrist RT min 3V* Transcribed By: TATIANA 06/20/22 1525 [employer] Other XR wrist RT min 3V* Dictated By: Kit Quinonez Jr, DO 06/20/22 1521 [employer] Other XR wrist RT min 3V* Signed By: [employer] Other XR wrist RT min 3V* 06/20/22 1522 No rt [employer] Other CTA Abdomen and Pelvison CTA Abdomen and Pelvis Exam Date/Time: 06/15/2022 12:45 EST Reason for Exam: E71.40;Abdominal aortic Aneurysm (AAA) Report Review CTA chest for report CTA of the abdomen and pelvis Ordering Provider: Leon Hyde FINAL REPORT Dictated: 06/16/2022 10:17 am Ivan Saavedra MD Signed (Electronic Signature): 06/16/2022 10:17 am Signed by: Ivan Saavedra MD Transcribed by: RIA Technologist: SANDRA Technical Comments GFR (mL/min/1/73m2) >60 Contrast: Isovue 370 Contrast amount in ml's: 100 Normal [facility] CTA [place] 06-16-2022 CTA Chest Exam [...] low as reasonably achievable. Ordering Provider: Leon Hyde FINAL REPORT Dictated: 06/16/2022 10:16 am Ivan Saavedra MD Signed (Electronic Signature): 06/16/2022 10:16 am Signed by: Ivan Saavedra MD Transcribed by: RIA Technologist: SANDRA Technical Comments GFR (mL/min/1/73m2) >60 Contrast: Isovue 370 Contrast amount in ml's: 100 Normal [facility] CHEMISTRYOrdered By: SYSTEM SYSTEM on 06-15-2022 Creatinine [Mass/Vol] 0.7 mg/dL Normal 0.5 - 1.3 mg/dL [facility] Remisol GFR/1.73 sq M.predicted among blacks MDRD (S/P/Bld) [Vol rate/Area] mL/min/1.73 m2 Normal >=59mL/min /1.73 m2 [facility] Chem S GFR/1.73 sq M.predicted among non-blacks MDRD (S/P/Bld) [Vol rate/Area] mL/min/1.73 m2 Normal >=59mL/min /1.73 m2 [facility] Chem S Consent for Treatmenton 06-06 Consent for Treatment [id number] [id number] 0CD:127 Normal [facility] Creatinineon 06-15-2022 Creatinine [Mass/Vol] 0.7 mg/dL Normal 0.5-1.3 Fis [facility] Comment on above: Performed By: #### 2 [id number], [id number] ####[facility] [address] [place] [address] eGFRon 06-15-2022 GFR/1.73 sq M.predicted among blacks MDRD (S/P/Bld) [Vol rate/Area] mL/min/{1.73_m2} Normal >=59 [facility] Comment on above: Order Comment: Order added by Discern Expert. Result Comment: eGFR is race adjusted. AA=. Performed By: #### 2 [id number], [id number] ####[facility] [address] [place] [address] GFR/1.73 sq M.predicted among non-blacks MDRD (S/P/Bld) [Vol rate/Area] mL/min/{1.73_m2} Normal >=59 [facility] Comment on above: Order Comment: Order added by Discern Expert. 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 Kidney failure is indicated at less than 15 mL/min/1.73m2. Performed By: #### 2 [id number], [id number] ####[address] [place] [address] Physician Orderon 06-14-2022 Physician Order [id number] 00CD:127 Normal [facility] Coding Summary.on 06-05-2022 Coding Summary. CD:[id number] Gh 0bWw+PGhlYWQ+OQ9PKZMgS 82ltOFrtS1EA9uXOH0QKUZ ENXJIVS3YTZ4haYP3FEulT 2VybiAv HvifsAMsXA49OUs5ZKD7oO xlSLusnP3qiYAiO6e4NkSv IH02jB36XKwhGODtSqY3Cn ZpbjsgbWFy V7rjKsGieMMaXwu+PHRhYm xlIHdpZHRoPScxMDAlJyBz qMrrIL4kLp8cKVVbNWGkyY xhcHNlOiBj i8mmPVNkBCerWN8xeUufX2 AqiJX8DUMdf1j1Wu20bQQ+ SWQzNUL7gPorDQhva478Ma Ydc7tzYEY2 hAUxXRebPHS8D48xq9Y5CG HuAZLiVVH2vOB4nT8zeGoz uwipD1DsgRIsAlX6VIC0eX RqeY5asQzq phhhxS4kWyy+Q08OWV8EVW QPMG1QByf1M6BxEmsqgRO+ DS73BWAtGA07pFLezNTkm6 cnmKd9EuSu ZIOqSOH5hGqzKOfyo7OmTS IeX71kaXGnx7I2UZFckHtq tUDfLeAeoMO6tT6gOHdhxe yli9dxuthz Mtplg2xhpj46oJ52Q15oJH msTTTmHXS6PEDoDYVmcPvc mk1haW5pSl1+HXdao0exb2 auwAe6PgJe ZJUokaOelAftLZQ1g1MvYt 17G1SmrMoqf0YySco6ha32 hSRxj0E6eFU8SHwrIKIdbG 2wDOefJzA3 VKZgGgSacS86gSLuSQhyId 4acAopqCqcOV5zFUKzjoox QYUfyW5cSDOllXFddNxiMQ 4wNTBpbjtm x802XjWrLZV9ZSHhqPVpN9 DmeL7nEqZhQMQrLYLzX7Xg dOIoWIdnN534SDlqFaH6VI JjmcZvK4Ax HSXpyMcjPzP8b5U2Lz9Hy7 WjrpglHBB1RDpqBLTmIbW3 YoVcLcU9W9VjFqf6XOKllZ ysUG7vC3Rb ICXmpinhwsxwkSU2LPGkOP GsiK41vXOdQWypBm3lo1O5 t282HCVpEBGaiO49Be7luL ogMTBwdCBU iC4pypsqt8dbscaaVoZyLM NwDUr3HPh1CYMtlHojFyOt QTX2StD3FHR0aFCrsY9miM rlpwfvrZ4v Oyc+Z10mcD7xHTK2AIZ3nl spNABulkXuCY47HS90K1Ys PjwvdGFibGU+PGRpdiBzdH cdRT5cWjDo l1cdc3BxCFjiK9HvSNVcGN rlKgc7EXLeNQT3hDZ9yB2q KPOzZNihw7O6qGO5T1Nkms Hsca7ri7zo PXQmFFyqL90drKAis0L9YH MsnDM0WAKkwEgkQrZguH56 Oyc+GJBrvXjaf1NcYwrwu7 yli5fdrPg3 XwUfRYTggrIilUtzKQN7g6 XwEj44A42zHPbwJUPuKCMq JAWwYMRhmYqiku9tmL8iQj 8+PGNvbCB3 iKZ7dL2gYFJtEpE7FWizS6 99JnLutDHhCgyii6bpq9or xVz2IqIlQGAvrfApeFaiCB U1w4XyIu92 Y36aGBkiICRtZNGvONJiVY ZivZewmj3wrN6aHf1+PC9j i5qkbq12vR34jIZ+PHRkIH C2eRdrGDsz KVJbqR9yTKwmJwH0NHQoEp SsnC09gVOgKMuhSo9qxTmd fNutWL4yZTVrqeddw206Kg Asn2yzZZBe lLLpATckRTO2V18nk1T6ET VmFSNyZXW5hFZ9yO2beXfu bjogbGVmdDsgdmVydGljYW vcKWftA608 IHRvcDsnPlBhdGllbnQgTm UbTOg8S3JoHvw9XMVhbUfy ZG0hwKNvHZgqUc1gfOnqgQ aaOX8uMJUt jwdzl970RoKrr6ceCYGyxG RlIGllHAQ0W46yp6S8DYCf BZDqKHF1gBX3yF3dtFihug ogbGVmdDsg ufVwxZgtXVewAYtcW774TY RvcDsnPkJpcnRoIERhdGU6 DT93AB61nSCsg9U2yOL0Z7 BhZGRpbmct bphkfPF3ABTqHIAkaX80Np 6bjLncMb3vDVJfEHK6RQDp pYOsD6NnmL2aHrVxLQQhMH ZnL9KjrWVi JZraY232ZNclBdH6RRCmjh EkZ6EoYYPsyRgpYzQ0i1J3 Uu7SF2O7YG55JB19zQPhh2 F2vIY1J7Ok XODartfjpagmqCQ9NGZdAI KtyN19Xz1xjZjxOb9iHTSd XDX2EGMspKKuC5YemM1fQh AjMDAwMDAw T3ZioBJrHLzxW034WIrlPi Q0ZFIeabWpH4TjHPUcjMtg GbP5q6T4Cc6OECg0IG30WT 61sEBev4B0 cZV2A2VoMAJimwmtqgswvO X2EHHuIAZtwJ51Ci2llUrb Pk1hLYXjZJM8XGGqqALrR2 KkfH3fKeTt GKRrVNCwG1JpgJTzGWxjV2 81VFzpRvH5ZQNhkmOhF2Hr TTNckCeuVzK6h8E0Jr1CAC KnMO58RFX3 jHX4VD83MB92C0ZtRvgjjB FibGU+PHRhYmxlIHdpZHRo IUeaGZUwWcSqfAoxMY6xKy 9yZGVyLWNv wSkoyYJqFnWtx4fzEBAqWD feHC9drFrdU9VvoJJ8LTDb r4q3If98S08iV3XeuTO+PG FzuOD3aAF1 wP5qWjMrAvF2QIcaG270Ik CfwPIeCsoxw7qpc5quuYj8 FaN8KJMhhbMuxRwdHFY9x3 SlVu55H74b IHdpZHRoPSIxNSUiIHZhbG drnx7rxN0fNp9+PGNvbCB3 nMO5kR8uYlDbOyY1DTmtZ2 49InRvcCIv Gbjmn7nya9ghsGy7HhKnVE YosfXpyPlbAMF1d5WiHc27 K4WzxAfqu9EsMhz4hr24bY Pjj6C1oWM8 K6EoPMCasetvhXLbgFwzON 1qYYHsfrkrDZOnfM2kWTVz E4v5BgCvViV6WUzrD6Calb O9KHTjuKDw IKuvMSO4R29ig9R7RPKiUF HwGJP7kOU3qE0dcJgzzqco bGVmdDsgdmVydGljYWwtYW euV970HFTn cIhiXYSyoY3hJFLijQVqvB elKB2pOHKgiznjCwfCPMuS OqTySCFGNcqCDT49XE84kS Iai9P4sOI7 J9BlYJGzdmxwgmevjKF1LH OxZVMebZ16dPFzCCkcEq4h c6S4n386XVGgRNSiwO14In 9udDogMTBw qSCOjC0lhgcxn9grokzmVb XoPECtLBg0TPv8FBSnlOue QvAiSDK3JgR5ZNG2dSFduX 1hbGlnbjog oZ7jVxl+MCEoFYMvNJx2Je wvdGQ+HJQlDDT6tCnvJJnt ODMbuS8qYMRzR1q4VcTlKs N8WHhsL2Tp BBKfhgvqFx96hA2kHbHzOg L4SYihC0WextP5DZLghMTn BByzQTO5Q77ur7L7DPUjUS TaOPP5iTC3 pV1uxKsyarfhaDTbxAfrmu ZvkRxfLWdcRAptK543JPGh dKttJeq9SIjfCUWyAP61NG 92tWPga4E9 eMT0V0LnIMYzyfejypjqsF H5AEUhKKVdkH29rWEqKOyq Tv9tg2W0u379DOYjQKLygO 34Fd8xmWxr POGkrRVChG1ygzmnh4untl whFjVzCRFcQQl6IIv9EKJv mXwsDdVhNJM7JjB4STC7zY SehB1rhHzw dtcmiC2dUys+RmVtYWxlPC 22RS65kSSuq2B7kLO1P6Ek MIIiwpepsoirdPR1GZHeJH GltJ52eQZz PJdbXz5fv9L5h121RAPfVQ DmrY07Cp8aqDzdTLCcbVTU gP4mvtoqy7mvhhbbByZnBC EkPDq7YKb7 NYFsxMseYaUqTWK6BcR0RI N0aOCutM7seMucjnizsD2d Oyc+V6U4qWH3tCInyIeqmB Q+GI98oj18 V4LzOqleYvn5NJQgXKQ2uB C5pP3dISLmDUput0E7aFU1 W9UnybMekb2lf7eiCRLcFT vmO10ifZAf k8P1BQDflQS2SSExfYggPg XpoD41Kst+QHNpeZjqm6Ur Ksmna4nqp6adoRw8EfQtWA IgdmFsaWdu YJU1j5UyXo02F80zHRmnZG WbHTGnRYLrRUCzrGnuru3b pJ7tVv0+FKSijGK3vOA4cC 1qXeAbByJ6 SWlmI514LdTxoVVpFgwis3 ofo2ptzAd6YbMtRKAkcfNf zJanQCB1r0TfVx03H0SjfL xnn8NmXjp7 bk69cLKao4W7xEA1G4DtGW UpwkrqxEEwfAeyHN5yKNSf kyngKNNncE8zWDAnR2v6Su KyXsB3YEbj Q7VwkhQ1JVNggLTdSMDykD EGuH9adrwnf9tjaeybSgPc ZUJfHXi6SGh7ZBTnqGwzSo XcAIM0CbB4 VRU2gLDfiV4riXxrlebuiA 9wOyc+YOe6f7bcgGSiTV2k tVT1LV40WJ42qTAml9L6tS Y2I4YaERIe jlahfbeayGY1AAHhMJSbkN 78Pg5brQcmAx1bPGHkEUS7 JTZpdVUdV2CosG5vRyBcHR EvYNJmA2Ka zULaARiyM158WQfqWdK9YJ QipjTpF5QmKSZxmPsbQoL4 t6W4Oc1UPM85RZ30ZF96eR Cqr9J9sDK8 H8IrIWVjmwepqfzshMZ8YB ZtQIJhlZ22Uc6vfZcfWj6w YMCoMGG4NWBfcLDjT8LbeO 9yOiAjMDAw EPJjS2KixZJrWBbiD716KM cmBhV5ERNhopKdI3JcQTOr yDzrBnD1x8I2Ou3MMi90KW 80NF66cFDs g1D3zKL5B5GnRHPvdcrdwt fzqRL5WCGrVZDzbG18Hb6t sVgrRt3lRDAyVCZ8FSRvfU KjR2XzwK5z OtRxFWIpMKTaY4JhkTJxNX czI370CTrmRpH4UCGsgyGm N1NuMYNtlXjvBcG2n8Y4La 9UXXyjoyt3 D6SfNswqzIO+LV95LAZwHJ 59iIRvcSFxa2txtOc5DaOj JQYlSOW5nHjpNCoae8GzPJ KiH06yxHHi c2U6 (more content not included)... Normal [facility] Consent for Treatmenton 05-10 Consent for Treatment [id number] [id number] 0CD:127 [facility] Office/Cl inic Noteon 06-04-2022 [...] Mother. Diabetes mellitus type 2: Father. Normal [facility] Comment on above: Result Comment: Elec tronically Signed By: Justino CUNNINGHAM, Leon Ruiz\.br\Date and Time Signed: 06/04/22 11:00 EST Physician Orderon 06-04-2022 Physician Order [id number]. [id number]:127 Normal [facility] XR wrist RT min 3V*on 2022 XR wrist RT min 3V* [facility] Main [place] [address] [place] [id number] XRay Report Signed Patient: Ellen Chan MR#: [id number] 1 : 1945 Acct:[id number] Age/Sex: 77 / F ADM Date: 05/23/22 Loc: [facility] Room: Type: [facility] Attending Dr: Kate Mane MD [...] STUDY. Impression dictated by: Kit Quinonez Jr., DCaraOCara05/23/2022 3:50 PM Dictation Location: [place] [address] Transcribed By: [facility] 05/23/22 1550 Dictated By: Kit Quinonez Jr, DO 05/23/22 1546 Signed By: 05/23/22 1550 Normal [facility] XR wrist RT min 3V* [facility] [employer] Other XR wrist RT min 3V* [facility] Main [facility] [employer] Other XR wrist RT min 3V* [address] [place] [address] [employer] Other XR wrist RT min 3V* [place] [address] [facility] [employer] Other XR wrist RT min 3V* XRay Report [employer] Other XR wrist RT min 3V* Signed [employer] Other XR wrist RT min 3V* Patient: George Chan MR#: [id number] [place] [employer] Other XR wrist RT min 3V* 1 [employer] Other XR wrist RT min 3V* : 1945 Acct:[id number] [employer] Other XR wrist RT min 3V* Age/Sex: 77 / F ADM Date: 05/23/22 [employer] Other XR wrist RT min 3V* Loc: [facility] Room: Type : [facility] [employer] Other XR wrist RT min 3V* Attending Dr: Que Mane MD [employer] Other XR wrist RT min 3V* Copies to: Kate Mane MD [employer] Other XR wrist RT min 3V* Ordering Provider: Kate Mane MD [employer] Other XR wrist RT min 3V* Date of Service: 05/23/22 [employer] Other XR wrist RT min 3V* XR/XR wrist RT min 3V*: Other closed extra-articular fracture of distal [employer] Other XR wrist RT min 3V* end of right [employer] Other XR wrist RT min 3V* RIGHT WRIST - 4 views [employer] Other XR wrist RT min 3V* CLINICAL HISTORY: Right distal radius fracture ORIF. Follow-up [employer] Other XR wrist RT min 3V* COMPARISON: Right wrist 04/30/2022 [employer] Other XR wrist RT min 3V* FINDINGS: [employer] Other XR wrist RT min 3V* Cast material is now been removed. Bones are grossly demineralized. Hardware fixation involving [employer] Other XR wrist RT min 3V* the distal radius without evidence of hardware complication. No significant healing is seen since [employer] Other XR wrist RT min 3V* the prior study. Remote styloid process fracture involving the ulna. 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 Soft tissue swelling. [employer] Other XR wrist RT min 3V* XR/XR wrist RT min 3V* [employer] Other XR wrist RT min 3V* IMPRESSION: [employer] Other XR wrist RT min 3V* NO SIGNIFICANT ARIZMENDI E IN DISTAL RADIUS FRACTURE FINDINGS COMPARED TO THE PRIOR STUDY. [employer] Other XR wrist RT min 3V* Impression dictated by: Kit Quinonez Jr., D.O.05/23/2022 3:50 PM [employer] Other XR wrist RT min 3V* Dictation Location: [place] [address] [employer] Other XR wrist RT min 3V* Transcribed By: PWS 05/23/22 1550 [employer] Other XR wrist RT min 3V* Dictated By: Kit Quinonez Jr DO 05/23/22 1548 [employer] Other XR wrist RT min 3V* Signed By: [employer] Other XR wrist RT min 3V* 05/23/22 1550 No [employer] Other Basic Metabolic Panelon 04-09 Anion gap [Moles/Vol] 16.4 mmol/L High 6.0-15.0 [facility] Comment on above: Performed By: #### C ANDREW, BMP #### [facility] [address] Calcium [Mass/Vol] 9.5 mg/dL Normal 8.2-10.2 [facility] Comment on above: Performed By: #### C ANDREW, BMP #### [facility] [address] Chloride [Moles/Vol] 98 mmol/L Normal 95-114 [facility] Comment on above: Performed By: #### C BC, BMP #### [facility] [address] CO2 [Moles/Vol] 24.1 mmol/L Normal 22.0-30.0 [facility] Comment on above: Performed By: #### C BC, BMP #### [facility] [address] Creatinine [Mass/Vol] 0.89 mg/dL Normal 0.44-1.03 [facility] Comment on above: Performed By: #### C BC, BMP #### [facility] [address] Creatinine Clr Calc Pharmacy 49.75 [facility] Comment on above: Result Comment: PERF ORMED BY: [place] [address] PATHOLOGIST LOADER UNLOADER ANDREA TIDWELL M.D. Performed By: #### C BC, BMP #### [address] Estimated GFR ( Samantha > 60 [facility] Comment on above: Result Comment: GFR estimated reference range: According to KDOQI guidelines, <60 ml/min/1.73m2 is sufficient to diagnose a patient with chronic kidney disease. Performed By: #### C BC, BMP #### [address] Estimated GFR (Non- Am > 60 [facility] Comment on above: Performed By: #### C BC, BMP #### [facility] [address] Glucose [Mass/Vol] 108 mg/dL High 70-100 [facility] Comment on above: Result Comment: [place] Glucose Reference Range is dependent on time and content of last meal. Glucose of more than 200 mg/dL in a nonstressed, ambulatory subject supports the diagnosis of Diabetes Mellitus. ADA recommended reference range Performed By: #### C BC, BMP #### [facility] [address] Potassium [Moles/Vol] 3.5 mmol/L Normal 3.5-5.1 [facility] Comment on above: Performed By: #### C BC, BMP #### [facility] [address] Sodium [Moles/Vol] 135 mmol/L Low 136-146 [facility] Comment on above: Performed By: #### C BC, BMP #### [facility] [address] Urea nitrogen [Mass/Vol] 17 mg/dL Normal 9- [facility] Comment on above: Performed By: #### C BC, BMP #### [facility] [address] [place] [address] [place] Basophils Auto (Bld) [#/Vol] Ordered By: ARIANNE PURDY on 04-30-2022 Basophils (Bld) [#/Vol] 0.0 10*3/uL 0.0-0.2 [facility] Basophils/100 WBC Auto (Bld) Ordered By: ARIANNE PURDY on 04-30-2022 Basophils/100 WBC (Bld) 0.2 % . [facility] Complete Blood Count Auto Di ffon 04-30-2022 Basophils (Bld) [#/Vol] 0.0 10*3/uL Normal 0.0-0.2 [facility] Comment on above: Result Comment: PERF ORMED BY: [place] [address] PATHOLOGIST LOADER UNLOADER ANDREA TIDWELL M.D. Performed By: #### C BC, BMP #### [facility] [address] Basophils/100 WBC (Bld) 0.2 % Normal . [facility] Comment on above: Performed By: #### C BC, BMP #### [facility] [address] Eosinophils (Bld) [#/Vol] 0.1 10*3/uL Normal 0.0-0.45 [facility] Comment on above: Performed By: #### C BC, BMP #### [facility] [address] [place] [address] [place] Eosinophils/100 WBC (Bld) 1.1 % Normal . [facility] Comment on above: Performed By: #### C BC, BMP #### [facility] [address] Erythrocyte distribution width (RBC) [Ratio] 14.9 % Normal 11.9-15.3 [facility] Comment on above: Performed By: #### C BC, BMP #### [facility] [address] Hematocrit (Bld) [Volume fraction] 36.4 % Normal 34.0-46.4 [facility] Comment on above: Performed By: #### C BC, BMP #### [address] Hemoglobin (Bld) [Mass/Vol] 12.1 g/dL Normal 11.8-15.4 [facility] Comment on above: Performed By: #### C BC, BMP #### [facility] [address] Lymphocytes (Bld) [#/Vol] 1.2 10*3/uL Normal 1.00-4.8 [facility] Comment on above: Performed By: #### C BC, BMP #### [facility] [address] [place] [address] [place] Lymphocytes/100 WBC (Bld) 16.1 % Normal . [facility] Comment on above: Performed By: #### C BC, BMP #### [facility] [address] [place] [address] [place] MCH (RBC) [Entitic mass] 28.2 pg Normal 24.7-34.3 [facility] Comment on above: Performed By: #### C BC, BMP #### [facility] [address] [place] [address] MCV (RBC) [Entitic vol] 85.0 fL Normal 80-100 [facility] Comment on above: Performed By: #### C BC, BMP #### [facility] [address] Mean Corpuscular HGB Conc 33.2 g/dL Normal 32.0-35.0 [facility] Comment on above: Performed By: #### C BC, BMP #### [facility] [address] [place] [address] [place] Monocytes (Bld) [#/Vol] 0.6 10*3/uL Normal 0.0-0.8 [facility] Comment on above: Performed By: #### C BC, BMP #### [facility] [address] [place] [address] [place] Monocytes/100 WBC (Bld) 8.4 % Normal . [facility] Comment on above: Performed By: #### C BC, BMP #### [address] Neutrophils (Bld) [#/Vol] 5.6 10*3/uL Normal 1.8-7.7 [facility] Comment on above: Performed By: #### C BC, BMP #### [facility] [address] [place] [address] [place] Neutrophils/100 WBC (Bld) 74.2 % Normal . [facility] Comment on above: Performed By: #### C BC, BMP #### [address] NRBC% 0.1 /100{WBC} Normal 0-0.5 [facility] Comment on above: Performed By: #### C BC, BMP #### [facility] [address] [place] [address] [place] Platelet mean volume (Bld) [Entitic vol] 8.4 fL Normal 6.3-10.7 [facility] Comment on above: Performed By: #### C BC, BMP #### [facility] [address] [place] [address] [place] Platelets (Bld) [#/Vol] 101 10*3/uL Low 150-450 [facility] Comment on above: Performed By: #### C BC, BMP #### [facility] [address] RBC (Bld) [#/Vol] 4.28 10*6/uL Normal 3.60-5.00 [facility] Comment on above: Performed By: #### C BC, BMP #### [facility] [address] WBC (Bld) [#/Vol] 7.6 10*3/uL Normal 3.8-11.6 [facility] Comment on above: Performed By: #### C BC, BMP #### [facility] [address] Creatinine and Glomerular fi ltration rate.predicted panel (S/P/Bld)Ordered By: ARIANNE PURDY on 04-30-2022 Creatinine [Mass/Vol] 0.89 mg/dL 0.44-1.03 [facility] ECG 12 lead ECGon 04-30-2022 [address] [facility] Main [place] [address] [place] [address] Electrocardiograph Report Signed Patient: Ellen Chan MR#: [id number] 1 : 1945 Acct:[id number] Age/Sex: 77 / F ADM Date: 04/30/22 Loc: [place] Room: Type: [facility] Attending Dr: Kate Mane MD Ordering [...] ECGs available Confirmed by KHOI CUNNINGHAM [facility] ([id number]) on 05/01/2022 5:11:40 PM Referred By: Electronically Signed By:EDITH WESTFALL MD FAC Transcribed By: MUS Signed By Camacho Westfall MD 05/01/22 171 [facility] Eosinophils Auto (Bld) [#/Vo l]Ordered By: ARIANNE PURDY on 04-30-2022 Eosinophils (Bld) [#/Vol] 0.1 10*3/uL 0.0-0.45 [facility] Eosinophils/100 WBC Auto (Bl d)Ordered By: ARIANNE PURDY on 04-30-2022 Eosinophils/100 WBC (Bld) 1.1 % . [facility] Erythrocyte distribution wid th Auto (RBC) [Ratio]Ordered By: ARIANNE PURDY on 04-30-2022 Erythrocyte distribution width (RBC) [Ratio] 14.9 % 11.9-15.3 [facility] Estimated glomerular filtrat ion rate (GFR) non- AmericanOrdered By: ARIANNE PURDY on 04-30-2022 GFR/1.73 sq M.predicted among non-blacks MDRD (S/P/Bld) [Vol rate/Area] > 60 mL/Min [facility] Hematocrit Auto (Bld) [Volum e fraction]Ordered By: ARIANNE PURDY on 04-30-2022 Hematocrit (Bld) [Volume fraction] 36.4 % 34.0-46.4 [facility] Hemoglobin [Mass/volume] in BloodOrdered By: ARIANNE PURDY on 04-30-2022 Hemoglobin (Bld) [Mass/Vol] 12.1 g/dL 11.8-15.4 [facility] Leukocytes [#/volume] correc roxane for nucleated erythrocytes in Blood by Automated counOrdered By: ARIANNE PURDY on 04-30-2022 WBC corrected for nucl RBC Auto (Bld) [#/Vol] 7.6 10*3/uL 3.8-11.6 [facility] Lymphocytes Auto (Bld) [#/Vo l]Ordered By: ARIANNE PURDY on 04-30-2022 Lymphocytes (Bld) [#/Vol] 1.2 10*3/uL 1.00-4.8 [facility] Lymphocytes/100 WBC Auto (Bl d)Ordered By: ARIANNE PURDY on 04-30-2022 Lymphocytes/100 WBC (Bld) 16.1 % . [facility] MCH Auto (RBC) [Entitic mass ]Ordered By: ARIANNE PURDY on 04-30-2022 MCH (RBC) [Entitic mass] 28.2 pg 24.7-34.3 [facility] MCHC Auto (RBC) [Mass/Vol]Or dered By: ARIANNE PURDY on 04-30-2022 MCHC (RBC) [Mass/Vol] 33.2 g/dL 32.0-35.0 [facility] MCV Auto (RBC) [Entitic vol] Ordered By: ARIANNE PURDY on 04-30-2022 MCV (RBC) [Entitic vol] 85.0 fL 80-100 [facility] Monocytes Auto (Bld) [#/Vol] Ordered By: ARIANNE PURDY on 04-30-2022 Monocytes (Bld) [#/Vol] 0.6 10*3/uL 0.0-0.8 [facility] Monocytes/100 WBC Auto (Bld) Ordered By: ARIANNE PURDY on 04-30-2022 Monocytes/100 WBC (Bld) 8.4 % . [facility] Neutrophils Auto (Bld) [#/Vo l]Ordered By: ARIANNE PURDY on 04-30-2022 Neutrophils (Bld) [#/Vol] 5.6 10*3/uL 1.8-7.7 [facility] Neutrophils/100 WBC Auto (Bl d)Ordered By: ARIANNE PURDY on 04-30-2022 Neutrophils/100 WBC (Bld) 74.2 % . [facility] No Panel InformationOrdered By: ARIANNE PURDY on 04-30-2022 Estimated GFR () > 60 mL/Min [facility] Comment on above: GFR estimated refere nce range: According to KDOQI guidelines, <60 ml/min/1.73m2 is sufficient to diagnose a patient with chronic kidney disease. Pharmacy Creatinine Clearance (Chem 49.75 [facility] Nucleated erythrocytes [Pres ence] in Blood by Automated countOrdered By: ARIANNE PURDY on 04-30-2022 Nucleated RBC Auto Ql (Bld) 0.1 /100{WBC} 0-0.5 [facility] Platelet mean volume Auto (B ld) [Entitic vol]Ordered By: ARIANNE PURDY on 04-30-2022 Platelet mean volume (Bld) [Entitic vol] 8.4 fL 6.3-10.7 [facility] Platelets Auto (Bld) [#/Vol] Ordered By: ARIANNE PURDY on 04-30-2022 Platelets (Bld) [#/Vol] 101 10*3/uL 150-450 [facility] RBC Auto (Bld) [#/Vol]Ordere d By: ARIANNE PURDY on 04-30-2022 RBC (Bld) [#/Vol] 4.28 10*6/uL 3.60-5.00 [facility] Serum or plasma anion gap de terminationOrdered By: ARIANNE PURDY on 04-30-2022 Anion gap [Moles/Vol] 16.4 mmol/L 6.0-15.0 [facility] Serum or plasma calcium nicky urement (mass/volume)Ordered By: ARIANNE PURDY on 04-30-2022 Calcium [Mass/Vol] 9.5 mg/dL 8.2-10.2 [facility] Serum or plasma chloride maged surement (moles/volume)Ordered By: ARIANNE PURDY on 04-30-2022 Chloride [Moles/Vol] 98 mmol/L 95-114 [facility] Serum or plasma glucose nicky urement (mass/volume)Ordered By: ARIANNE PURDY on 04-30-2022 Glucose [Mass/Vol] 108 mg/dL 70-100 [facility] Comment on above: ADA recommended refe rence rangeRandom Glucose Reference Range is dependent on time and content of last meal. Glucose of more than 200 mg/dL in a nonstressed, ambulatory subject supports the diagnosis of Diabetes Mellitus. Serum or plasma potassium me asurement (moles/volume)Ordered By: ARIANNE PURDY on 04-30-2022 Potassium [Moles/Vol] 3.5 mmol/L 3.5-5.1 [facility] Serum or plasma sodium measu rement (moles/volume)Ordered By: ARIANNE PURDY on 04-30-2022 Sodium [Moles/Vol] 135 mmol/L 136-146 [facility] Serum or plasma total carbon dioxide measurement (moles/volume)Ordered By: ARIANNE PURDY on 04-30-2022 CO2 [Moles/Vol] 24.1 mmol/L 22.0-30.0 [facility] Serum or plasma urea nitroge n measurement (mass/volume)Ordered By: ARIANNE PURDY on 04-30-2022 Urea nitrogen [Mass/Vol] 17 mg/dL 12-29 [facility] WBC Auto (Bld) [#/Vol]Ordere d By: ARIANNE PURDY on 04-30-2022 WBC (Bld) [#/Vol] 7.6 10*3/uL 3.8-11.6 [facility] XR wrist RT min 3V*on 2022 XR wrist RT min 3V* [facility] Main [place] [address] [place] [address] XRay Report Signed Patient: Ellen Chan MR#: [id number] 1 : 1945 Acct:[id number] Age/Sex: 77 / F ADM Date: 04/30/22 Loc: [place] Room: Type: [facility] Attending Dr: Kate Mane MD Copies [...] Quinonez Jr., D.O.04/30/2022 4:36 PM Dictation Location: [place] [address] Transcribed By: [facility] 04/30/22 1636 Dictated By: Kit Quinonez Jr, DO 04/30/22 1635 Signed By: 04/30/22 1636 Normal [facility] CBC AUTO DIFFon 04-27-2022 BASO # 0.0 103/ul Normal 0.0-0.1 [facility] Comment on above: Performed By: #### C BC #### [facility] [address] [address] [address] Sangita Arizmendi Basophils/100 WBC (Bld) 0.2 % Normal 0.2-2.0 [facility] Comment on above: Performed By: #### C BC #### [facility] [address] [place] [address] Dr. Sangita Arizmendi EO # 0.1 103/ul Normal 0.0-0.7 [facility] Comment on above: Performed By: #### C BC #### [facility] [address] [place] [address] Dr. Sangita Arizmendi Eosinophils/100 WBC (Bld) 0.7 % Critically low 0.9-7.0 [facility] Comment on above: Performed By: #### C BC #### [facility] [address] [place] [address] Dr. Sangita Arizmendi Erythrocyte distribution width (RBC) [Ratio] 14.3 % Normal 11.0-15.0 [facility] Comment on above: Performed By: #### C BC #### [facility] [address] [place] [address] Dr. Sangita Arizmendi Hematocrit (Bld) [Volume fraction] 33.1 % Critically low 36.0-48.0 [facility] Comment on above: Performed By: #### C BC #### [facility] [address] [place] [address] Dr. Sangita Arizmendi Hemoglobin (Bld) [Mass/Vol] 12.1 g/dL Normal 12.0-16.0 [facility] Comment on above: Performed By: #### C BC #### [facility] [address] [place] [address] Dr. Sangita Arizmendi IG # 0.04 10e3/ul Critically high 0.00-0.03 [facility] Comment on above: Performed By: #### C BC #### [facility] [address] [place] [address] Dr. Sangita Arizmendi IG % 0.5 % Normal 0.0-0.5 [facility] Comment on above: Performed By: #### C BC #### [facility] [address] [place] [address] Dr. Sangita Arizmendi LYMPH # 1.5 103/ul Normal 1.2-3.8 [facility] Comment on above: Performed By: #### C BC #### [facility] [address] [place] [address] Dr. Sangita Arizmendi Lymphocytes/100 WBC (Bld) 17.1 % Critically low 20.5-60.0 [facility] Comment on above: Performed By: #### C BC #### [facility] [address] [place] [address] Dr. Sangita Arizmendi MANUAL DIFF REQ NO Normal [facility] Comment on above: Performed By: #### C BC #### [facility] [address] [place] [address] Dr. Sangita Arizmendi MCH (RBC) [Entitic mass] 28.7 pg Normal 26.7-34.0 [facility] Comment on above: Performed By: #### C BC #### [facility] [address] [place] [address] Dr. Sangita Arizmendi MCHC (RBC) [Mass/Vol] 36.6 g/dL Critically high 29.9-35.2 [facility] Comment on above: Performed By: #### C BC #### [facility] [address] [place] [address] Dr. Sangita Arizmendi MCV (RBC) [Entitic vol] 78.4 fL Critically low 81.0-99. 0 [facility] Comment on above: Performed By: #### C BC #### [facility] [address] [place] [address] Dr. Sangita Arizmendi MONO # 0.6 103/ul Normal 0.3-0.8 [facility] Comment on above: Performed By: #### C BC #### [facility] [address] [place] [address] Dr. Sangita Arizmendi Monocytes/100 WBC (Bld) 6.6 % Normal 1.7-12.0 [facility] Comment on above: Performed By: #### C BC #### [facility] [address] [place] [address] Dr. Sangita Arizmendi NEUT # 6.5 103/ul Normal 1.4-6.5 [facility] Comment on above: Performed By: #### C BC #### [facility] [address] [address] [address] Sangita Arizmendi Neutrophils/100 WBC (Bld) 74.9 % Normal 43.0-75.0 [facility] Comment on above: Performed By: #### C BC #### [facility] [address] [address] [address] Sangita Arizmendi Platelet mean volume (Bld) [Entitic vol] 9.7 fL Normal 9.5-13.5 [facility] Comment on above: Performed By: #### C BC #### [facility] [address] [address] [address] Sangita Arizmendi PLT 99 103/ul Critically low 150-450 [facility] Comment on above: Performed By: #### C BC #### [facility] [address] [place] [address] Dr. Sangita Arizmendi RBC 4.22 106/ul Normal 4.20-5.40 [facility] Comment on above: Performed By: #### C BC #### [facility] [address] [place] [address] Dr. Sangita Arizmendi WBC 8.7 103/ul Normal 4.0-11.0 [facility] Comment on above: Performed By: #### C BC #### [facility] [address] [place] [address] Dr. Sangita Arizmendi PROF 14(COMP METB)on 023 Albumin [Mass/Vol] 3.3 g/dL Critically low 3.4-5.0 [facility] Comment on above: Performed By: #### C MP #### [facility] [address] [place] [address] Dr. Sangita Arizmendi Albumin/Globulin [Mass ratio] 0.9 {ratio} Normal [facility] Comment on above: Performed By: #### C MP #### [facility] [address] [place] [address] Dr. Sangita Arizmendi ALP [Catalytic activity/Vol] 76 U/L Normal 46-116 [facility] Comment on above: Performed By: #### C MP #### [facility] [address] [address] [address] Sangita Arizmendi ALT [Catalytic activity/Vol] 21 U/L Normal 14-59 [facility] Comment on above: Performed By: #### C MP #### [facility] [address] [place] [address] Dr. Sangita Arizmendi Anion gap [Moles/Vol] 9.5 mmol/L Normal [facility] Comment on above: Performed By: #### C MP #### [facility] [address] [address] [address] Sangita Arizmendi AST [Catalytic activity/Vol] 18 U/L Normal 15-37 [facility] Comment on above: Performed By: #### C MP #### [facility] [address] [address] [address] Sangita Arizmendi Bilirubin [Mass/Vol] 0.3 mg/dL Normal 0.2-1.0 [facility] Comment on above: Performed By: #### C MP #### [facility] [address] [place] [address] Dr. Sangita Arizmendi Calcium [Mass/Vol] 9.0 mg/dL Normal 8.5-10.1 [facility] Comment on above: Performed By: #### C MP #### [facility] [address] [place] [address] Dr. Sangita Arizmendi Chloride [Moles/Vol] 104 mmol/L Normal 98-107 [facility] Comment on above: Performed By: #### C MP #### [facility] [address] [address] [address] Sangita Arizmendi CO2 [Moles/Vol] 30.3 mmol/L Normal 21.0-32.0 [facility] Comment on above: Performed By: #### C MP #### [facility] [address] [place] [address] Dr. Sangita Arizmendi Creatinine [Mass/Vol] 0.85 mg/dL Normal 0.55-1.02 [facility] Comment on above: Performed By: #### C MP #### [facility] [address] [place] [address] Dr. Sangita Arizmendi EGFR-AF MONGOLIAN >60 Normal >=60 [facility] Comment on above: Performed By: #### C MP #### [facility] [address] [address] [address] Sangita Arizmendi EGFR-NON AF MONGOLIAN >60 Normal >=60 [facility] Comment on above: Performed By: #### C MP #### [facility] [address] [address] [address] Sangita Arizmendi Globulin (S) [Mass/Vol] 3.7 g/dL Normal [facility] Comment on above: Performed By: #### C MP #### [facility] [address] [address] [address] Sangita Arizmendi Glucose [Mass/Vol] 87 mg/dL Normal 74-106 [facility] Comment on above: Performed By: #### C MP #### [facility] [address] [address] [address] Sangita Arizmendi Potassium [Moles/Vol] 3.8 mmol/L Normal 3.5-5.1 [facility] Comment on above: Performed By: #### C MP #### [facility] [address] [address] [address] Sangita Arizmendi Protein [Mass/Vol] 7.0 g/dL Normal 6.4-8.2 [facility] Comment on above: Performed By: #### C MP #### [facility] [address] [address] [address] Sangita Arizmendi Sodium [Moles/Vol] 140 mmol/L Normal 136-145 [facility] Comment on above: Performed By: #### C MP #### [facility] [address] [address] [address] Sangita Arizmendi Urea nitrogen [Mass/Vol] 16.0 mg/dL Normal 7.0-18.0 [facility] Comment on above: Performed By: #### C MP #### [facility] [address] [address] [address] Sangita Arizmendi Urea nitrogen/Creatinine [Mass ratio] 18.8 mg/mg Normal [facility] Comment on above: Performed By: #### C MP #### [facility] [address] [address] [address] Sangita Arizmendi XR FOREARM RT 2Von [...] CARO CAICEDO Date: 2022-04-27 10:42 Normal [facility] MG MAMM SCREEN 3D GENO CADon 04-25-2022 MG MAMM SCREEN 3D GENO CAD Patient: ELLEN CHAN Exam Date: 04/25/2022 : 1945 Gender:F Ordering : DR NITHYA MALLOY M.D. Admission #: [id number] Family : Order #: [id number] CLICK HERE TO VIEW EXAM RADIOLOGY REPORT [...] Treatments None Family Cancers None LOCATION: [facility] BREAST COMPOSITION: Heterogeneously dense,which may obscure [...] Quintanilla MD on 04/25/2022 at 12:32 Normal [facility] Referrals Officeon 3 Referrals Office [id number] Appointment for 05/14/2022 @ 930 Normal [address] [facility] XR LSPINE 2_3 VIEWSon 2022 XR LSPINE [...] by: ARIANNE QUINTANILLA Date: 2022-04-16 15:12 Normal [facility] CTA CHEST WO W CONon 28-2 022 CTA CHEST WO W CON EXAMINATION: [...] by: ANTOLIN VALLADARES Date: 2021-08-03 10:44 Normal [facility] Operative Reporton 2 Operative Report MR#: [id number] I [facility] Pt. Name: Ellen Chan Room #: REC 200 05 Discharge 07/13/2021 Date: Birthdate: 1945 OPERATIVE REPORT DATE OF SURGERY: 07/12/2021 SURGEON: Leon Hyde MD ANESTHESIA: General anesthesia. PREOPERATIVE DIAGNOSIS: Descending [...] counts were correct. Electronically Signed by: Leon Hyde MD 07/26/2021 01:20 P Leon Hyde MD Date Dict: 07/25/2021/10:53 Rey/Leon Hyde MD Date Trans: 07/25/2021 11:33 A/mecca [id number] Normal [facility] BASIC METABOLIC PANELon 04-0 Calcium [Mass/Vol] 8.4 mg/dL Low 8.6-10.3 [facility] Comment on above: Order Comment: No: D o not add to previous draw Performed By: #### 1 69, [id number] #### [facility] [address] [place] [address], [place] Chloride [Moles/Vol] 105 mmol/L Normal 98-107 [facility] Comment on above: Order Comment: No: D o not add to previous draw Performed By: #### 1 69, [id number] #### [facility] [address] [place] [address], [place] CO2 [Moles/Vol] 25 mmol/L Normal 21-31 [facility] Comment on above: Order Comment: No: D o not add to previous draw Performed By: #### 1 69, 33567 #### [facility] [address] [place] [address], [place] Creatinine [Mass/Vol] 0.60 mg/dL Normal 0.60-1.20 [facility] Comment on above: Order Comment: No: D o not add to previous draw Performed By: #### 1 69, 48335 #### [facility] [address] [place] [address], [place] GFR/1.73 sq M.predicted among blacks MDRD (S/P/Bld) [Vol rate/Area] mL/min/{1.73_m2} Normal >60 [facility] Comment on above: Order Comment: No: D o not add to previous draw Result Comment: Calc ulation may not be valid for patients over 70 years Performed By: #### 1 69, 76204 #### [facility] [address] [place] [address], [place] GFR/1.73 sq M.predicted among non-blacks MDRD (S/P/Bld) [Vol rate/Area] mL/min/{1.73_m2} Normal >60 [facility] Comment on above: Order Comment: No: D o not add to previous draw Result Comment: Calc ulation may not be valid for patients over 70 years Performed By: #### 1 69, 47788 #### [facility] [address] [place] [address], [place] Glucose [Mass/Vol] 92 mg/dL Normal 70-100 [facility] Comment on above: Order Comment: No: D o not add to previous draw Performed By: #### 1 69, 84970 #### [facility] [address] [place] [address], [place] Potassium [Moles/Vol] 3.7 mmol/L Normal 3.5-5.1 [facility] Comment on above: Order Comment: No: D o not add to previous draw Performed By: #### 1 69, 71605 #### [facility] [address] [place] [address], [place] Sodium [Moles/Vol] 138 mmol/L Normal 136-145 [facility] Comment on above: Order Comment: No: D o not add to previous draw Performed By: #### 1 69, 10375 #### [facility] [address] [place] [address], [place] Urea nitrogen [Mass/Vol] 11 mg/dL Normal 7-25 [facility] Comment on above: Order Comment: No: D o not add to previous draw Performed By: #### 1 69, 98776 #### [facility] [address] [place] [address], [place] CBC COMPLETE BLOOD COUNTon 0 - Erythrocyte distribution width (RBC) [Ratio] 14.5 % Normal 11.5-15.0 [facility] Comment on above: Order Comment: No: D o not add to previous draw Performed By: #### 3 0739 #### [facility] [address] [place] [address], [facility] Hematocrit (Bld) [Volume fraction] 33.7 % Low 36.0-45.0 [facility] Comment on above: Order Comment: No: D o not add to previous draw Performed By: #### 3 0739 #### [facility] [address] [place] [id number], [facility] Hemoglobin (Bld) [Mass/Vol] 11.5 g/dL Low 12.0-15.0 [facility] Comment on above: Order Comment: No: D o not add to previous draw Performed By: #### 3 0739 #### [facility] [address] [place] [address], [facility] IMM PLATELET FRAC 3.4 % Normal 0.8-6.3 [facility] Comment on above: Order Comment: No: D o not add to previous draw Performed By: #### 3 0739 #### [facility] [address] [place] [address], [facility] MCH (RBC) [Entitic mass] 28.7 pg Normal 27.0-33.0 [facility] Comment on above: Order Comment: No: D o not add to previous draw Performed By: #### 3 0739 #### [facility] [address] [place] [address], [facility] MCHC (RBC) [Mass/Vol] 34.1 g/dL Normal 32.0-35.0 [facility] Comment on above: Order Comment: No: D o not add to previous draw Performed By: #### 3 0739 #### [facility] [address] [place] [address], [facility] MCV (RBC) [Entitic vol] 84.0 fL Normal 82.0-98.0 [facility] Comment on above: Order Comment: No: D o not add to previous draw Performed By: #### 3 0739 #### [facility] [address] [place] [address], [facility] Nucleated RBC/100 WBC (Bld) [Ratio] 0 % Normal 0-0 [facility] Comment on above: Order Comment: No: D o not add to previous draw Performed By: #### 3 0739 #### [facility] [address] [place] [address], [facility] PLAT CNT 91 10*3/uL Low 150-400 [facility] Comment on above: Order Comment: No: D o not add to previous draw Performed By: #### 3 0739 #### [facility] [address] [place] [address], [facility] RBC (Bld) [#/Vol] 4.01 10*6/uL Normal 3.80-5.00 The [facility] Comment on above: Order Comment: No: D o not add to previous draw Performed By: #### 3 0739 #### [facility] [address] [facility] [place] [address], [facility] WBC (Bld) [#/Vol] 7.44 10*3/uL Normal 4.00-10.60 [facility] Comment on above: Order Comment: No: D o not add to previous draw Performed By: #### 3 0739 #### [facility] [address] [place] [id number], [facility] MAGNESIUM BLOODon 07-13-2021 Magnesium [Mass/Vol] 1.8 mg/dL Low 1.9-2.7 [facility] Comment on above: Order Comment: No: D o not add to previous draw Performed By: #### 1 0070, 04644 #### [facility] [address] [place] [address], [facility] ACTIVATED CLOTTING TIMEon ACTIVATED CLOTTING TIME 132 sec Normal 82-[address] [facility] Comment on above: Performed By: #### 3 0739 #### [facility] [address] [place] [address], [place] ACTIVATED CLOTTING TIME 272 sec High 82-[address] [facility] Comment on above: Performed By: #### 3 0739 #### [facility] [address] [place] [address], [place] ACTIVATED CLOTTING TIME 138 sec Normal 82-[address] [facility] Comment on above: Performed By: #### 3 0739 #### [facility] [address] [place] [address], [facility] BASIC METABOLIC PANELon 04-0 Calcium [Mass/Vol] 8.6 mg/dL Normal 8.6-10.3 [facility] Comment on above: Order Comment: No: D o not add to previous draw Performed By: #### 0 0071, 58621 #### [facility] [address] [place] [address], [place] Chloride [Moles/Vol] 105 mmol/L Normal 98-107 [facility] Comment on above: Order Comment: No: D o not add to previous draw Performed By: #### 0 0071, 80459 #### [facility] [address] [place] [address], [place] CO2 [Moles/Vol] 27 mmol/L Normal 21-31 [facility] Comment on above: Order Comment: No: D o not add to previous draw Performed By: #### 0 0071, 58603 #### [facility] [address] [place] [address], [place] Creatinine [Mass/Vol] 0.64 mg/dL Normal 0.60-1.20 [facility] Comment on above: Order Comment: No: D o not add to previous draw Performed By: #### 0 0071, 89961 #### [facility] [address] [place] [address], [place] GFR/1.73 sq M.predicted among blacks MDRD (S/P/Bld) [Vol rate/Area] mL/min/{1.73_m2} Normal >60 [facility] Comment on above: Order Comment: No: D o not add to previous draw Result Comment: Calc ulation may not be valid for patients over 70 years Performed By: #### 0 0071, 97150 #### [facility] [address] [place] [address], [place] GFR/1.73 sq M.predicted among non-blacks MDRD (S/P/Bld) [Vol rate/Area] mL/min/{1.73_m2} Normal >60 [facility] Comment on above: Order Comment: No: D o not add to previous draw Result Comment: Calc ulation may not be valid for patients over 70 years Performed By: #### 0 0071, 04429 #### [facility] [address] [place] [address], [place] Glucose [Mass/Vol] 108 mg/dL High 70-100 [facility] Comment on above: Order Comment: No: D o not add to previous draw Performed By: #### 0 0071, 08497 #### [facility] [address] [place] [address], [place] Potassium [Moles/Vol] 3.4 mmol/L Low 3.5-5.1 [facility] Comment on above: Order Comment: No: D o not add to previous draw Performed By: #### 0 0071, 85639 #### [facility] [address] [place] [address], [place] Sodium [Moles/Vol] 139 mmol/L Normal 136-145 [facility] Comment on above: Order Comment: No: D o not add to previous draw Performed By: #### 0 0071, 86160 #### [facility] [address] Urea nitrogen [Mass/Vol] 15 mg/dL Normal 7-25 [facility] Comment on above: Order Comment: No: D o not add to previous draw Performed By: #### 0 0071, 35940 #### [facility] [address] [place] [address], [facility] CBC W/DIFFon 07-12-2021 ABS IMM GRANS 0.0 10*3/uL Normal 0.0-0.2 [facility] Comment on above: Performed By: #### 3 0739 #### [facility] [address] [place] [address], [facility] ABS NEUTROPHILS 3.9 10*3/uL Normal 1.6-7.6 [facility] Comment on above: Performed By: #### 3 0739 #### [facility] [address] [place] [address], [facility] Basophils (Bld) [#/Vol] 0.0 10*3/uL Normal 0.0-0.2 [facility] Comment on above: Performed By: #### 3 0739 #### [facility] [address] [place] [address], [facility] Basophils/100 WBC (Bld) 0.2 % Normal 0.0-1.0 [facility] Comment on above: Performed By: #### 3 0739 #### [facility] [address] [place] [address], [facility] Eosinophils (Bld) [#/Vol] 0.1 10*3/uL Normal 0.0-0.5 [facility] Comment on above: Performed By: #### 3 0739 #### [facility] [address] [place] [address], [facility] Eosinophils/100 WBC (Bld) 1.8 % Normal 0.0-6.0 [facility] Comment on above: Performed By: #### 3 0739 #### [facility] [address] [facility]. [address] Erythrocyte distribution width (RBC) [Ratio] 14.4 % Normal 11.5-15.0 [facility] Comment on above: Performed By: #### 3 0739 #### [facility] [address] [place] [address], [facility] Hematocrit (Bld) [Volume fraction] 36.7 % Normal 36.0-45.0 [facility] Comment on above: Performed By: #### 3 0739 #### [facility] [address] Hemoglobin (Bld) [Mass/Vol] 12.1 g/dL Normal 12.0-15.0 [facility] Comment on above: Performed By: #### 3 0739 #### [facility] [address] [place] [address], [facility] IMM PLATELET FRAC 3.5 % Normal 0.8-6.3 [facility] Comment on above: Performed By: #### 3 0739 #### [facility] [address] IMMATURE GRANS 0.6 % Normal 0.0-1.0 [facility] Comment on above: Performed By: #### 3 0739 #### [facility] [address] [facility]. [address] Lymphocytes (Bld) [#/Vol] 1.1 10*3/uL Low 1.2-4.0 [facility] Comment on above: Performed By: #### 3 0739 #### [facility] [address] [place] [address], [facility] Lymphocytes/100 WBC (Bld) 19.8 % Low 20.0-45.0 [facility] Comment on above: Performed By: #### 3 0739 #### [facility] [address] [place] [address], [facility] MCH (RBC) [Entitic mass] 28.5 pg Normal 27.0-33.0 [facility] Comment on above: Performed By: #### 3 0739 #### [facility] [address] [place] [id number], [facility] MCHC (RBC) [Mass/Vol] 33.0 g/dL Normal 32.0-35.0 [facility] Comment on above: Performed By: #### 3 0739 #### [facility] [address] [place] [address], [facility] MCV (RBC) [Entitic vol] 86.6 fL Normal 82.0-98.0 T [facility] Comment on above: Performed By: #### 3 0739 #### [facility] [address] [place] [address], [facility] Monocytes (Bld) [#/Vol] 0.4 10*3/uL Normal 0.1-1.0 [facility] Comment on above: Performed By: #### 3 0739 #### [facility] [address] [facility] [place] [address], [facility] MONOS 6.4 % Normal 5.0-12.0 [facility] Comment on above: Performed By: #### 3 0739 #### [facility] [address] [facility] [place] [address], [facility] Neutrophils/100 WBC (Bld) 71.2 % Normal 40.0-72.0 [facility] Comment on above: Performed By: #### 3 0739 #### [facility] [address] [place] [address], [facility] Nucleated RBC/100 WBC (Bld) [Ratio] 0 % Normal 0-0 [facility] Comment on above: Performed By: #### 3 0739 #### [facility] [address] [place] [address], [facility] PLAT CNT 96 10*3/uL Low 150-400 [facility] Comment on above: Performed By: #### 3 0739 #### [facility] [address] [facility] [place] [address], [facility] RBC (Bld) [#/Vol] 4.24 10*6/uL Normal 3.80-5.00 The [facility] Comment on above: Performed By: #### 3 0739 #### [facility] [address] [place] [address], [facility] WBC (Bld) [#/Vol] 5.45 10*3/uL Normal 4.00-10.60 The [facility] Comment on above: Performed By: #### 3 0739 #### [facility] [address] MAGNESIUM BLOODon 07-12-2021 Magnesium [Mass/Vol] 1.6 mg/dL Low 1.9-2.7 [facility] Comment on above: Order Comment: No: D o not add to previous draw Performed By: #### 0 [id number], [id number] #### [facility] [address] [facility]. [address] PLATELET FUNCTION SCREENon 0 07-12-2021 COLLAGEN/ADP 87 sec Normal 56-110 The [facility] Comment on above: Order Comment: No: [...] warranted. Performed By: #### 8 [id number] #### [facility] [address] [place] [address], [facility] COLLAGEN/EPINEPHRINE 218 sec High 82-159 [facility] Comment on above: Order Comment: No: D o not add to previous draw Performed By: #### 8 [id number] #### [facility] [address] [facility] [place] [address], [facility] POC GLUCOSE LABon 07-12-2021 Glucose [Mass/Vol] 99 mg/dL Normal 70-100 The [facility] Comment on above: Performed By: #### 3 0739 #### [facility] [address] [facility] [place] [address], [facility] Glucose [Mass/Vol] 103 mg/dL High 70-100 The [facility] Comment on above: Performed By: #### 3 0739 #### [facility] [address] [facility] [place] [address], [facility] US SUE DOP LEG LTon 06-07-19 US SUE DOP LEG LT EXAMINATION: US SUE DOP LEG LT HISTORY: Localized swelling, mass [...] by: ANTOLIN VALLADARES Date: 2021-06-06 11:20 Normal [facility] CTA ABDOMEN AND PELVISon CTA ABDOMEN AND PELVIS [facility] Department of Radiology [address] [place] [address] ======== Patient Name: ELLEN CHAN : 1945 Sex: F Age: Race: White Pt. Location: 77 Patient Status: D Ordered Date: 03/09/2021 11:05:00 AM Completed Date: 04/26/2021 10:27 AM Requesting Provider: LEON HYDE Attending Provider: LEON HYDE Report Copy To: NITHYA MALLOY Signs & Symptoms: I71.2 Thoracic aortic aneurysm, without rupture I10 History: Dufur patient will need labs has 2 ct's [...] Right renal artery stenosis. Electronically signed: Rajan Pinto. Transcribed by: [email or web address], User Resident: Electronically Signed by: RAJAN IPNTO @ 04/27/2021 01:22 PM Normal [facility] CTA CHESTon 04-26-2021 CTA CHEST [facility] Department of Radiology [address] [place] [id number] ======== Patient Name: ELLEN CHAN : 1945 Sex: F Age: Race: White Pt. Location: Patient Status: D Ordered Date: 03/09/2021 11:05:00 AM Completed Date: 04/26/2021 10:27 AM Requesting Provider: LEON HYDE Attending Provider: LEON HYDE Report Copy To: NITHYA MALLOY Signs & Symptoms: I71.2 Thoracic aortic aneurysm, [...] no acute lesion identified. Electronically signed: Rajan Pinto. Transcribed by: [email or web address], User Resident: Electronically Signed by: RAJAN PINTO @ 04/27/2021 12:48 PM Normal [facility] Vital Signs Date Time Vital Sign Value Performing Clinician Facility 08-01-2023 08:42-0400 Body height 162.6 cm Leon [facility] 08-01-2023 08:42-0400 Body mass index (BMI) [Ratio] 23.52 kg/m2 Leon Hyde MD Work Phone: [facility] 08-01-2023 08:42-0400 Body weight 62.14 kg Leon Hyde MD Work Phone: [facility] 08-01-2023 08:42-0400 Diastolic blood pressure 60 mm[Hg] Leon Hyde MD Work Phone: [facility] 08-01-2023 08:42-0400 Heart rate 66 /min Leon Hyde MD Work Phone: [facility] 08-01-2023 08:42-0400 Systolic blood pressure 98 mm[Hg] Leon Hyde MD Work Phone: [facility] 06-16-2023 11:37-0400 Body temperature 97.81 [degF] Jude Marti MD Work Phone: [facility] 06-16-2023 11:37-0400 Diastolic blood pressure 91 mm[Hg] Jude Marti MD Work Phone: [facility] 06-16-2023 11:37-0400 Heart rate 74 /min Jude Marti MD Work Phone: [facility] 06-16-2023 11:37-0400 Respiratory rate 17 /min Jude Marti MD Work Phone: [facility] 06-16-2023 11:37-0400 SaO2% (BldA) [Mass fraction] 99 % Jude Marti MD Work Phone: [facility] 06-16-2023 11:37-0400 Systolic blood pressure 120 mm[Hg] Jude Marti MD Work Phone: [facility] 06-16-2023 05:24-0400 Body mass index (BMI) [Ratio] 24.41 kg/m2 Jude Marti MD Work Phone: [facility] 06-16-2023 05:24-0400 Body weight 64.5 kg Jude Marti MD Work Phone: [facility] 06-13-2023 13:37-0500 Body height 162.6 cm Jude Marti MD Work Phone: [facility] 04-17-2023 07:27-0500 Body temperature 97.9 [degF] Willard Krueger MD Work Phone: [facility] 04-17-2023 07:27-0500 Diastolic blood pressure 93 mm[Hg] Willard Krueger MD Work Phone: [facility] 04-17-2023 07:27-0500 Heart rate 70 /min Willard Krueger MD Work Phone: [facility] 04-17-2023 07:27-0500 Respiratory rate 18 /min Willard Krueger MD Work Phone: [facility] 04-17-2023 07:27-0500 Systolic blood pressure 161 mm[Hg] Willard Krueger MD Work Phone: [facility] 04-17-2023 05:00-0500 Body mass index (BMI) [Ratio] 25.47 kg/m2 Willard Krueger MD Work Phone: [facility] 04-17-2023 05:00-0500 Body weight 67.3 kg Willard Krueger MD Work Phone: [facility] 04-16-2023 23:08-0500 SaO2% (BldA) [Mass fraction] 95 % Willard Krueger MD Work Phone: [facility] 04-07-2023 05:12-0500 SaO2% (BldA) [Mass fraction] 96 % WILLARDISAK KRUEGER [facility] Comment on above: Performed By: #### ABG ####[facility] ([id number])[address] [place] [address] 04-07-2023 03:15-0500 Body temperature 98.6 [degF] Willard Krueger MD Work Phone: [facility] 04-07-2023 03:15-0500 SaO2% (BldA) [Mass fraction] 95.0 % Willard Krueger MD Work Phone: [facility] 04-07-2023 03:15-0500 SaO2% (BldA) [Mass fraction] 96 % Willard Krueger MD Work Phone: [facility] 04-06-2023 13:56-0500 SaO2% (BldA) [Mass fraction] 95 % WILLARD KRUEGER [facility] Comment on above: Performed By: #### ABG ####[facility] ([id number])[address] [place] [address] [place] [address] 04-06-2023 11:59-0500 Body temperature 98.6 [degF] Willard Krueger MD Work Phone: [facility] 04-06-2023 11:59-0500 SaO2% (BldA) [Mass fraction] 92.0 % Willard Krueger MD Work Phone: [facility] 04-06-2023 11:59-0500 SaO2% (BldA) [Mass fraction] 95 % Willard Krueger MD Work Phone: [facility] 04-01-2023 22:00-0500 Body height 162.6 cm Willard Krueger MD Work Phone: [facility] [employer] 10-02-2022 10:45-0400 Body height Kate Calvashley Other [facility] Other 10-02-2022 10:45-0400 Body mass index (BMI) [Ratio] 26.77 kg/m2 Kate Mane Other [facility] Other 10-02-2022 10:45-0400 Body weight 70.76 kg Kate Mane Other [facility] Other 09-07-2022 09:30-0400 Body height Nithya Mellissa Other [facility] Other 09-07-2022 09:30-0400 Body mass index (BMI) [Ratio] 26.43 kg/m2 Nithya Malloy Other [facility] Other 09-07-2022 09:30-0400 Body weight 69.85 kg Nithya Malloy Other [facility] Other 09-07-2022 09:30-0400 Diastolic blood pressure 87 mm[Hg] Nithya Malloy Other [facility] Other 09-07-2022 09:30-0400 Systolic blood pressure 132 mm[Hg] Nithya Malloy Other [facility] Other 06-04-2022 10:46-0500 Diastolic blood pressure 87 mm[Hg] [facility] 06-04-2022 10:46-0500 Mean blood pressure 107 mm[Hg] Leon Hyde [facility] 06-04-2022 10:46-0500 Systolic blood pressure 146 mm[Hg] Leon Justino [facility] 06-04-2022 10:32-0500 Blood Pressure Location Leon Justino [facility] 06-04-2022 10:32-0500 Diastolic blood pressure 88 mm[Hg] [facility] 06-04-2022 10:32-0500 Heart rate 77 /min Leon Heckan [facility] 06-04-2022 10:32-0500 SaO2% (BldA) [Mass fraction] 98 % [facility] 06-04-2022 10:32-0500 Systolic blood pressure 146 mm[Hg] Leon Hyde [facility] 04-30-2022 17:32-0500 Diastolic blood pressure 96 mm[Hg] MD Nithya Malloy Work Phone: [facility] 04-30-2022 17:32-0500 Heart rate 85 /min MD Nithya Malloy Work Phone: [facility] 04-30-2022 17:32-0500 Respiratory rate 16 /min MD Nithya Malloy Work Phone: [facility] 04-30-2022 17:32-0500 SaO2% (BldA) [Mass fraction] 96 % MD Nithya Malloy Work Phone: [facility] 04-30-2022 17:32-0500 Systolic blood pressure 147 mm[Hg] MD Nithya Malloy Work Phone: [facility] 04-30-2022 17:17-0500 Inhaled oxygen flow rate 2 L/min MD Nityha Malloy Work Phone: [facility] 04-30-2022 14:47-0500 Body mass index (BMI) [Ratio] 27.1 kg/m2 MD Nithya Malloy Work Phone: [facility] 04-30-2022 14:21-0500 Body height 162.56 cm MD Nithya Malloy Work Phone: [facility] 04-30-2022 14:21-0500 Body weight 71.66 kg MD Nithya Malloy Work Phone: [facility] 04-30-2022 12:59-0500 Body temperature 98.3 [degF] MD Nithya Malloy Work Phone: [facility] 04-10-2022 11:45-0500 Body height Nithya Malloy Other [facility] Other 04-10-2022 11:45-0500 Body mass index (BMI) [Ratio] 28.15 kg/m2 Nithya Malloy Other [facility] Other 04-10-2022 11:45-0500 Body weight 74.39 kg Nithya Malloy Other [facility] Other 04-10-2022 11:45-0500 Diastolic blood pressure 90 mm[Hg] Nithya Malloy Other [facility] Other 04-10-2022 11:45-0500 SaO2% (BldA) [Mass fraction] 95 % Nithya Malloy Other [facility] Other 04-10-2022 11:45-0500 Systolic blood pressure 152 mm[Hg] Nithya Malloy Other [facility] Other Encounters Encounter Date Encounter Type Care Provider Facility Start: 08-28-2024 ambulatory NITHYA MALLOY [facility] Start: 08-27-2024 End: 08-27-2024 ambulatory [facility] Start: 07-21-2024 End: 07-21-2024 Clinisync Result Encounter Leon Hyde MD Work Phone: [facility] External Department Unsolicited Start: 07-21-2024 End: 07-21-2024 Clinisync Result Encounter Leon Hyde MD Work Phone: [facility] External Department Unsolicited Start: 07-09-2024 End: 07-09-2024 Telephone encounter Leon Hyde MD Work Phone: [facility] Start: 08-01-2023 End: 08-01-2023 Office outpatient visit 25 minutes Leon Hyde MD Work Phone: [facility] Comment on above: History of AAA (abdo chapo aortic aneurysm) repair (Primary Dx); 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) Start: 07-30-2023 End: 07-30-2023 Chart abstracting Nithya Malloy MD Work Phone: [facility] Start: 07-24-2023 End: 07-24-2023 Telephone encounter Marita Wu MD Work Phone: [facility] Start: 06-17-2023 End: 06-17-2023 ambulatory NITHYA MALLOY [facility] Start: 06-17-2023 End: 06-17-2023 [facility] Start: 06-15-2023 End: 06-17-2023 Evaluation and management of inpatient [facility] Start: 06-14-2023 End: 06-17-2023 [facility] Start: 06-14-2023 End: 06-17-2023 Evaluation and management of inpatient SIMEON Mercado [facility] Start: 06-13-2023 End: 06-17-2023 [facility] Start: 06-13-2023 End: 06-16-2023 Evaluation and management of inpatient [facility] Start: 06-13-2023 End: 06-16-2023 Evaluation and management of inpatient [facility] DO Work Phone: [facility] - GEN 5 Acute Comment on above: Acute lower GI bleed ing (Primary Dx); Suprapatellar bursitis of right knee Start: 06-04-2023 Orders Only Marita Wu MD Work Phone: [facility] Comment on above: 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) Start: 05-31-2023 Telephone encounter [facility] Comment on above: MRI Order Start: 05-23-2023 End: 05-23-2023 Office outpatient visit 25 minutes Marita Wu MD Work Phone: [facility] Comment on above: 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CMS-HCC) (Primary Dx) Start: 05-10-2023 End: 05-10-2023 ambulatory Nithya Mellissa Other [facility] Other Start: 05-10-2023 Telephone encounter Nithya Mellissa [facility] Start: 05-06-2023 Telephone encounter Aline Hernandez [facility] Comment on above: video visit Start: 05-01-2023 Telephone encounter Karol Do [facility] Start: 04-26-2023 End: 04-26-2023 ambulatory Nithya Mellissa Other [facility] Other Start: 04-26-2023 Telephone encounter Nithya Mellissa [facility] Start: 04-25-2023 End: 04-25-2023 ambulatory Nithya Mellissa Other [facility] Other Start: 04-25-2023 Telephone encounter Nithya Mellissa [facility] Start: 04-22-2023 End: 04-22-2023 ambulatory Nithya Mellissa Other [facility] Other Start: 04-22-2023 Telephone encounter Nithya Mellissa [facility] Start: 04-18-2023 End: 04-18-2023 ambulatory WILLARD NICOLEIDI [facility] Other Start: 04-18-2023 Initial nursing faci lity care/day 35 minutes Nithya Malloy [facility] Start: 04-17-2023 Documentation procedure Scarlet Nam [facility] Start: 04-17-2023 End: 04-17-2023 Evaluation and management of inpatient WON WEBSTER [facility] Start: 04-12-2023 End: 04-17-2023 Evaluation and management of inpatient OKSANA WONG [facility] Start: 04-11-2023 End: 04-17-2023 Evaluation and management of inpatient DAE BO [facility] Start: 04-11-2023 End: 04-17-2023 Evaluation and management of inpatient HASEEB MCNAMARA [facility] Start: 04-10-2023 End: 04-17-2023 Evaluation and management of inpatient CHEN AHN [facility] Start: 04-10-2023 End: 04-17-2023 Evaluation and management of inpatient MAI Malhotra AUDRAKAITLIN [facility] Start: 04-09-2023 End: 04-17-2023 Evaluation and management of inpatient [facility] Start: 04-09-2023 End: 04-17-2023 Evaluation and management of inpatient ZAY CHAPA [facility] Start: 04-09-2023 End: 04-17-2023 Evaluation and management of inpatient [facility] Start: 04-08-2023 End: 04-17-2023 Evaluation and management of inpatient [facility] Start: 04-07-2023 End: 04-17-2023 Evaluation and management of inpatient JANET MCALLISTER [facility] Start: 04-06-2023 End: 04-17-2023 Evaluation and management of inpatient [facility] Start: 04-06-2023 End: 04-17-2023 Evaluation and management of inpatient CHRISTINA VILLALOBOS [facility] Start: 04-06-2023 End: 04-17-2023 Evaluation and management of inpatient [facility] Start: 04-05-2023 End: 04-17-2023 Evaluation and management of inpatient [facility] Start: 04-03-2023 End: 04-03-2023 Evaluation and management of inpatient JORDAN HASSAN [facility] Start: 04-03-2023 End: 04-17-2023 Evaluation and management of inpatient [facility] Start: 04-03-2023 End: 04-03-2023 Evaluation and management of inpatient HOLLYMarya WILDEAGUSTINA [facility] Start: 04-03-2023 End: 04-17-2023 Evaluation and management of inpatient RY DE ANDA [facility] Start: 04-03-2023 End: 04-17-2023 Evaluation and management of inpatient GOPAL MAYS [facility] Start: 04-02-2023 End: 04-17-2023 Evaluation and management of inpatient JORDAN HASSAN [facility] Start: 04-02-2023 End: 04-17-2023 Evaluation and management of inpatient ALEIDA TILLEY [facility] Start: 04-01-2023 End: 04-17-2023 Evaluation and management of inpatient LES DE ANDA [facility] Start: 04-01-2023 End: 04-17-2023 Evaluation and management of inpatient WILLARD Jess. PATI [facility] Start: 04-01-2023 End: 04-17-2023 Evaluation and management of inpatient Willard F Pati [place] Work Phone: [facility] - GEN 8 Acute Start: 02-21-2023 End: 02-21-2023 ambulatory Nithya Malloy Other [facility] Other Start: 02-21-2023 Telephone encounter Nithya Malloy [facility] Start: 01-14-2023 End: 01-14-2023 ambulatory Nithya Malloy Other [facility] Other Start: 01-14-2023 Telephone encounter Nithya Malloy [facility] Start: 11-27-2022 End: 11-27-2022 ambulatory Kate Mane Other [facility] Other Start: 11-27-2022 Office outpatient vi sit 15 minutes Kate Mane [facility] Start: 10-08-2022 End: 10-08-2022 ambulatory Kate Mane Other [facility] Other Start: 10-08-2022 Telephone encounter Kate Calvey [facility] [employer] Start: 10-02-2022 End: 10-02-2022 ambulatory Kate Mane Other [facility] Other Start: 10-02-2022 Office outpatient vi sit 15 minutes Kate Kenneyey [facility] Start: 09-07-2022 End: 09-07-2022 ambulatory Nithya Malloy Other [facility] Other Start: 09-07-2022 Office outpatient vi sit 15 minutes Nithya Malloy [facility] Start: 08-31-2022 Office outpatient vi sit 15 minutes Kate Calvey [facility] Start: 08-31-2022 End: 08-31-2022 ambulatory Kate R Calvey Located [facility] [employer] Other Start: 08-30-2022 End: 08-31-2022 ambulatory MD Leon Hyde Facility:[facility] Start: 07-20-2022 Postop follow up vis it related to original px Kate Moultoney [facility] Start: 07-20-2022 End: 07-20-2022 ambulatory Kate R Calvey Facility:[facility] Start: 07-20-2022 End: 07-20-2022 ambulatory MD Nithya Malloy Work Phone: [facility] Work Phone: Start: 07-20-2022 End: 07-20-2022 Patient encounter procedure MD Nithya Malloy Work Phone: [facility] Start: 06-20-2022 End: 06-20-2022 ambulatory Kate R Teresa Facility:[facility] Start: 06-20-2022 End: 06-20-2022 Patient encounter procedure MD Nithya Malloy Work Phone: [facility] Start: 06-20-2022 End: 06-20-2022 ambulatory MD Nithya Malloy Work Phone: [facility] Work Phone: Start: 06-20-2022 Postop follow up vis it related to original px Kate Calvey [facility] Start: 06-15-2022 End: 06-16-2022 ambulatory MD Leon Hyde Facility:[facility] Start: 06-15-2022 End: 06-15-2022 Patient encounter procedure Leon Hyde [facility] Start: 06-04-2022 End: 06-05-2022 ambulatory MD Leon Hyde Facility:[facility] Start: 06-04-2022 End: 06-04-2022 Patient encounter procedure Leon Hyde [facility] Start: 05-23-2022 End: 05-23-2022 ambulatory Kate Mane Facility:[facility] Start: 05-23-2022 End: 05-23-2022 Patient encounter procedure MD Nithya Malloy Work Phone: [facility] Start: 05-23-2022 End: 05-23-2022 ambulatory MD Nithya Malloy Work Phone: [facility] Work Phone: Start: 05-23-2022 Postop follow up vis it related to original px Kate Calvey [facility] Start: 05-14-2022 ambulatory KATE CALVEY Facility : Start: 05-09-2022 End: 05-09-2022 ambulatory Kate Calvey Other [facility] Other Start: 05-09-2022 Postop follow up vis it related to original px Kate Calvey [facility] Start: 05-01-2022 End: 05-01-2022 ambulatory Kate Calvey Other [facility] Other Start: 05-01-2022 Telephone encounter Kate Calvey [facility] Start: 05-01-2022 Encounter for other preprocedural examination GASTONMERE REDMAN [facility] Start: 05-01-2022 Encounter for preprocedural cardiovascular examination GASTONMERE REDMAN [facility] Start: 05-01-2022 Encounter for preprocedural laboratory examination GASTONMERE REDMAN [facility] Start: 04-30-2022 Encounter for other preprocedural examination KATE KENNEYASHLEY [facility] Start: 04-30-2022 End: 04-30-2022 ambulatory Kate Mane Facility:[facility] Start: 04-30-2022 End: 04-30-2022 Admission to same day surgery center MD Nithya Malloy Work Phone: [facility] [place] Start: 04-30-2022 End: 04-30-2022 ambulatory MD Nithya Malloy Work Phone: [facility] Work Phone: Start: 04-27-2022 End: 04-28-2022 ambulatory KATE MANE Facility:[facility] Start: 04-27-2022 End: 04-28-2022 Encounter for other preprocedural examination KATE MANE Facility:[facility] Start: 04-27-2022 End: 04-27-[address] NITHYA MALLOY Facility:[facility] Start: 04-25-2022 End: 04-26-[address] NITHYA MALLOY Facility:[facility] Start: 04-23-2022 End: 04-23-2022 ambulatory Nithya Malloy Other [facility] Other Start: 04-23-2022 Telephone encounter Nithya Malloy [facility] Start: 04-16-2022 End: 04-17-[address] NITHYA MALLOY Facility:[facility] Start: 04-10-2022 End: 04-10-2022 ambulatory Nithya Malloy Other [facility] Other Start: 04-10-2022 Office outpatient vi sit 15 minutes Nithya Malloy [facility] Start: 04-10-2022 Patient encounter procedure Nithya Malloy [facility] Start: 09-15-2021 Adult health examination Colle lyubov Mane Other Located Within [facility] [employer] Other Start: 08-03-2021 End: 08-04-[address] DOCTOR GOMEZ Facility:[facility]1 Start: 07-12-2021 End: 07-13-2021 Evaluation and management of inpatient LEON HYDE Facility:[facility] Start: 06-06-2021 End: 06-07-[address] NITHYA MALLOY Facility:[facility] Procedures Date Procedure Procedure Detail Performing Clinician Start: 07-21-2024 CT ANGIO ABDOMEN PELVIS Leon Hyde MD Work Phone: Start: 07-21-2024 Ct angiography chest w/contrast/noncontrast Leon Hyde MD Work Phone: Start: 06-16-2023 Basic metabolic panel calcium total Glory Richmond MD Work Phone: Start: 06-15-2023 Blood count hematocrit Austin Malhotra Work Phone: Start: 06-15-2023 Potassium serum plasma/whole blood Jude Marti MD Work Phone: Start: 06-15-2023 Blood count hematocrit Austin Malhotra Work Phone: Start: 06-15-2023 Potassium serum plasma/whole blood Jude Marti MD Work Phone: Start: 06-15-2023 Radiologic exam swallow function contrast study Brandon Reed MD Work Phone: Start: 06-15-2023 Gluc bld gluc mntr dev cleared fda spec home use Emilee Marie DO Work Phone: Start: 06-15-2023 Basic metabolic panel calcium total Glory Richmond MD Work Phone: Start: 06-15-2023 Gluc bld gluc mntr dev cleared fda spec home use Emilee Marie DO Work Phone: Start: 06-15-2023 Potassium serum plasma/whole blood Jude Marti MD Work Phone: Start: 06-14-2023 End: 06-14-2023 Gluc bld gluc mntr dev cleared fda spec home use Emilee Marie DO Work Phone: Start: 06-14-2023 End: 06-14-2023 Potassium serum plasma/whole blood Jude Marti MD Work Phone: Start: 06-14-2023 Non-invasive physiologic study extremity 3 levls Itiya Gabino SUPERVISOR MULTIFOCAL LENS-RETAIL SALES REPRESENTATIVE Work Phone: Start: 06-14-2023 End: 06-14-2023 COLONOSCOPY POLYPECTOMY Олег Long MD Work Phone: Start: 06-14-2023 Colonoscopy Олег Long MD Work Phone: Start: 06-14-2023 PROVATION COLONOSCOPY Simeon Upton DO Work Phone: Start: 06-14-2023 End: 06-14-2023 Gluc bld gluc mntr dev cleared fda spec home use Emilee Marie DO Work Phone: Start: 06-14-2023 Basic metabolic panel calcium total Glory Richmond MD Work Phone: Start: 06-14-2023 Potassium serum plasma/whole blood Jude Marti MD Work Phone: Start: 06-13-2023 Blood occult peroxidase actv qual feces 1-3 spec Austin Marino MD Work Phone: Start: 06-13-2023 Blood count hematocrit Austin Malhotra Work Phone: Start: 06-13-2023 Assay of magnesium Jude Marti MD Work Phone: Start: 06-13-2023 Blood count hematocrit Austin Malhotra Work Phone: Start: 06-13-2023 Ct angio abd&plvis cntrst mtrl w/wo cntrst img Austin Marino MD Work Phone: Start: 06-13-2023 REPEATED ASHER Marino MD Work Phone: Start: 06-13-2023 Antibody screen Jude Marti MD Work Phone: Start: 06-13-2023 Assay of lactate Austin Marino MD Work Phone: Start: 06-13-2023 Blood typing serologic abo Austin bill MD Work Phone: Start: 06-13-2023 Comprehensive metabolic panel Glory Richmond MD Work Phone: Start: 06-13-2023 REPEATED ASHER Marino MD Work Phone: Start: 06-13-2023 Adult depression screening assessment Marita Wu MD Work Phone: Start: 04-17-2023 End: 04-17-2023 Comprehensive metabolic panel [...] Phone: Start: 04-13-2023 Electrolyte panel Haseeb Black SUPERVISOR MULTIFOCAL LENS-C HEAD CHAR FILTER TANK TENDER Work Phone: Start: 04-12-2023 OXYGEN THERAPY Won Webster MD Work Phone: Start: 04-12-2023 Electrolyte panel Haseeb Black SUPERVISOR MULTIFOCAL LENS-C HEAD CHAR FILTER TANK TENDER Work Phone: Start: 04-12-2023 Electrolyte panel Haseeb Black SUPERVISOR MULTIFOCAL LENS-C HEAD CHAR FILTER TANK TENDER Work Phone: Start: 04-12-2023 Blood count complete auto&auto difrntl wbc Willard Krueger MD Work Phone: Start: 04-12-2023 Comprehensive metabolic panel Ry De Anda MD Work Phone: Start: 04-12-2023 Ct angiography neck w/contrast/noncontrast Oksana Wong MD Work Phone: Start: 04-12-2023 Ct angiography head w/contrast/noncontrast Oksana Wong MD Work Phone: Start: 04-12-2023 Electrolyte panel Haseeb Black SUPERVISOR MULTIFOCAL LENS-C HEAD CHAR FILTER TANK TENDER Work Phone: Start: 04-11-2023 Electrolyte panel Haseeb Black SUPERVISOR MULTIFOCAL LENS-C HEAD CHAR FILTER TANK TENDER Work Phone: Start: 04-11-2023 End: 04-11-2023 Egd percutaneous placement gastrostomy tube Dae Bo MD Work Phone: Start: 04-11-2023 Electrolyte panel Haseeb Mcnamara SUPERVISOR MULT[employer]OCAL [employer]ENS-C HEAD CHAR FILTER TANK TENDER Work Phone: Start: 04-11-2023 ES EGD IMAGING Dae Bo MD Work Phone: Start: 04-11-2023 Radiologic exam chest single view Haseeb Mcnamara SUPERVISOR MULT[employer]OCAL LENS-RETAIL SALES REPRESENTATIVE Work Phone: Start: 04-11-2023 Electrolyte panel Haseeb Mcnamara SUPERVISOR MULTIFOCAL LENS-C HEAD CHAR FILTER TANK TENDER Work Phone: Start: 04-11-2023 Comprehensive metabolic panel Ry De Anda MD Work Phone: Start: 04-10-2023 Electrolyte panel Haseeb Mcnamara SUPERVISOR MULTIFOCAL LENS-C HEAD CHAR FILTER TANK TENDER Work Phone: Start: 04-10-2023 Antinuclear antibodies kay Angeles E Ara an SUPERVISOR MULTIFOCAL LENS-RETAIL SALES REPRESENTATIVE Work Phone: Start: 04-10-2023 Electrolyte panel Haseeb Mcnamara SUPERVISOR MULTIFOCAL LENS-C HEAD CHAR FILTER TANK TENDER Work Phone: Start: 04-10-2023 Iaad ia hiv-1 ag w/hiv-1 & hiv-2 antbdy single Angeles E Ubaldo SUPERVISOR MULTIFOCAL LENS-RETAIL SALES REPRESENTATIVE Work Phone: Start: 04-10-2023 Antibody identification platelet antibodies Willard Krueger MD Work Phone: Start: 04-10-2023 Us abdominal real time w/image limited Chen Ahn SUPERVISOR MULT[employer]OCAL LENS-RETAIL SALES REPRESENTATIVE Work Phone: Start: 04-10-2023 Potassium serum plasma/whole blood Zay Chapa MD Work Phone: Start: 04-10-2023 Radiologic exam chest single view Mai Ho SUPERVISOR MULTIFOCAL LENS-RETAIL SALES REPRESENTATIVE Work Phone: Start: 04-10-2023 Comprehensive metabolic panel Ry De Anda MD Work Phone: Start: 04-10-2023 CLINICAL PATHOLOGY Willard Krueger MD Work Phone: Start: 04-09-2023 Fibrin dgradj products d-dimer quantitative Janet LAN Work Phone: Start: 04-09-2023 Assay of haptoglobin quantitative Chen Hinders SUPERVISOR MULTIFOCAL LENS-RETAIL SALES REPRESENTATIVE Work Phone: Start: 04-09-2023 Antihuman globulin direct each antiserum Chen Hinders SUPERVISOR MULTIFOCAL LENS-RETAIL SALES REPRESENTATIVE Work Phone: Start: 04-09-2023 CLINICAL PATHOLOGY BLOOD SMEAR REVIEW Dallas Hinders SUPERVISOR MULTIFOCAL LENS-RETAIL SALES REPRESENTATIVE Work Phone: Start: 04-09-2023 Ct head/brain w/o contrast material Artemio Ray MD Work Phone: Start: 04-09-2023 Cyanocobalamin vitamin b-12 Mai riley SUPERVISOR MULTIFOCAL LENS-RETAIL SALES REPRESENTATIVE Work Phone: Start: 04-09-2023 Assay of magnesium Brandon Gooden SUPERVISOR MULTIFOCAL LENS -RETAIL SALES REPRESENTATIVE Work Phone: Start: 04-09-2023 Radiologic exam chest single view Zay Chapa MD Work Phone: Start: 04-09-2023 Radiologic exam chest single view Brandon Gooden SUPERVISOR MULTIFOCAL LENS-RETAIL SALES REPRESENTATIVE Work Phone: Start: 04-09-2023 Ecg routine ecg w/least 12 lds trcg only w/o i&r Zay Chapa MD Work Phone: Start: 04-09-2023 BRONCHOPULMONARY HYGIENE Christina Freitas DO Work Phone: Start: 04-09-2023 Comprehensive metabolic panel Ry De Anda MD Work Phone: Start: 04-08-2023 Sodium serum plasma or whole blood Brandon Gooden SUPERVISOR MULTIFOCAL LENS-RETAIL SALES REPRESENTATIVE Work Phone: Start: 04-08-2023 Sodium serum plasma or whole blood Brandon Gooden SUPERVISOR MULTIFOCAL LENS-RETAIL SALES REPRESENTATIVE Work Phone: Start: 04-08-2023 Potassium serum plasma/whole blood Zay Chapa MD Work Phone: Start: 04-08-2023 Radiologic exam chest single view Brandon Gooden SUPERVISOR MULTIFOCAL LENS-RETAIL SALES REPRESENTATIVE Work Phone: Start: 04-08-2023 Comprehensive metabolic panel [...] Work Phone: Start: 04-03-2023 BRONCHOPULMONARY HYGIENE Christina Freitas DO Work Phone: Start: 04-03-2023 EEG VIDEO [...] 04-02-2023 Ct head/brain w/o contrast material Aleida Tilley SUPERVISOR MULTIFOCAL LENS-RETAIL SALES REPRESENTATIVE Work Phone: Start: 04-02-2023 Blood count complete [...] of fracture with internal fixation MD Nithya Malloy Work Phone: Start: 02-21-2016 Cataract Extraction with IOL placement - OD Leon Hyde Start: 02-09-2016 Screening mammography Kate Mane Other Start: 11-28-2012 General examination of patient Kate Mane Other Screening for malign ant neoplasm of breast Kate Mane Other Plan of Treatment Date Care Activity Detail Author Start: 12-07-2024 Influenza vaccination Influenza Vacc ine [facility] Start: 08-13-2024 End: 08-13-2024 Patient encounter procedure 08/13/2024 3:30 PM EDT [facility] [place] [place] [address] Saran Fong, SUPERVISOR MULTIFOCAL LENS-RETAIL SALES REPRESENTATIVE 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) Expected: 07/31/2024 (Approximate), Expires: 07/31/2024 [employer] Work Phone: Comment on above: Expected: 07/31/2024 (Approximate), Expires: 07/31/2024 Start: 07-31-2024 End: 07-31-2024 CTA Abdominal vessels and Pelvis vessels W contrast IV CT angiogram abdomen and pelvis Imaging Routine History of AAA (abdominal aortic aneurysm) repair Expected: 07/31/2024 (Approximate), Expires: 07/31/2024 [facility] Comment on above: Expected: 07/31/2024 (Approximate), Expires: 07/31/2024 Start: 07-31-2024 Tobacco Screening Tobacco Screening [facility] Start: 07-29-2024 Tobacco Screening Tobacco Screening [facility] Start: 06-15-2024 Adult BMI Screening Adult BMI Screen ing [facility] Start: 06-13-2024 Tobacco Screening Tobacco Screening [facility] Start: 06-12-2024 Depression Screening Depression Scre ening [facility] Start: 04-17-2024 Adult BMI Screening Adult BMI Screen ing [facility] Start: 04-11-2024 Tobacco Screening Tobacco Screening [facility] Start: 12-08-2023 COVID-19 Vaccine ( season) COVID-19 Vaccine ( season) [facility] Start: 12-08-2023 Influenza vaccination Influenza Vacc ine [facility] Start: 09-19-2023 End: 09-19-2023 Telemedicine consultation with patient 09/19/2023 1:00 PM EDT Telemedicine [facility] [address] [place] [address] Marita Wu MD [address] [place] [address], [address] [place] [address] [facility] Start: 08-01-2023 End: 08-01-2023 Patient encounter procedure 08/01/2023 8:30 AM EDT Office Visit [facility] [address] [place] [address] Leon Hyde MD [address], [address] [address] [facility] Start: 06-04-2023 End: 06-04-2024 MR Brain WO and W contrast IV MR brain with and without contrast Imaging Routine 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[facility]) Expected: 06/04/2023, Expires: 06/04/2024 [facility] Work Phone: Comment on above: Expected: 06/04/2023 , Expires: 06/04/2024 Start: 05-23-2023 End: 05-23-2023 ambulatory [facility] Start: 05-23-2023 End: 05-23-2023 Patient encounter procedure 05/23/2023 1:30 PM EST Office Visit [facility] [address] [place] [phone] Marita Wu MD [address] [place] [address], [address] [place] [address] [facility] Start: 05-23-2023 End: 05-23-2023 Telemedicine consultation with patient 05/23/2023 1:30 PM EST Telemedicine [facility] [address] [place] [phone] Marita Wu MD [address] [place] [address], [address], [address] [place] [address] [facility] Start: 05-16-2023 End: 05-16-2023 ambulatory [facility] Start: 05-16-2023 End: 05-16-2023 Patient encounter procedure 05/16/2023 10:30 AM EST Office Visit [facility] [address] [place] [phone] Ugo Marie MD [address] [facility] [address] [place] [address] [facility] Start: 03-26-2023 Administration of varicella zoster vaccine Zoster (Shingles) Vaccine (2 of 2) [facility] Start: 04-30-2022 End: 04-30-2022 [facility] Start: 2008 Fall Risk Screening Fall Risk Screen ing [employer] [facility] Start: 1962 DTaP,Tdap and Td Vac cines (1 - Tdap) DTaP,Tdap and Td Vaccines (1 - Tdap) [facility] Start: 1961 Adult BMI Follow Up Plan Adult BMI Follow Up Plan [facility] Start: 1955 Depression Screening Depression Scre ening [facility] Start: 1943 Medicare Annual Well ness Visit Medicare Annual Well[facility] [facility] Basic metabolic 2000 panel - Serum or Plasma Basic Metabolic Panel Lab Routine Lab max of 3 days, Daily, for lab use only until discontinued starting 06/14/2023, 3 completed [facility] Comment on above: Lab max of 3 days, D aily, for lab use only until discontinued starting 06/14/2023, 3 completed CBC W Auto Different ial panel - Blood CBC auto differential Lab Routine Lab max of 3 days, Daily, for lab use only until discontinued starting 06/13/2023, 4 completed [facility] Comment on above: Lab max of 3 days, D aily, for lab use only until discontinued starting 06/13/2023, 4 completed End: 07-31-2024 Creatinine includes GFR, serum Creatinine includes GFR, serum Lab Routine History of AAA (abdominal aortic aneurysm) repair 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) 1 Occurrences starting 08/01/2023 until 07/31/2024 [facility] Comment on above: 1 Occurrences starti ng 08/01/2023 until 07/31/2024 Oxygen Therapy - Misa ntain SpO2: 90%; *BENZENE WASHER OPERATOR Guidelines for O2: Yes; Document: \[email or web address]\epic \EPIC_Reference\Orders\Re spiratory Care Guidelines\CPG Oxygen 2020.pdf Oxygen Therapy - Maintain SpO2: 90%; *BENZENE WASHER OPERATOR Guidelines for O2: Yes; Document: \[email or web address].[email or web address]\e pic\EPIC_Reference\Ord ers\Respiratory Care Guidelines\CPG Oxygen 2020.pdf Respiratory Care Routine As Needed until discontinued starting 06/13/2023 [facility] Comment on above: As Needed until disc ontinued starting 06/13/2023 Patient referral [facility] Work Phone: End: 04-08-2023 Potassium [Moles/volume] in Serum or Plasma [employer] [facility]BO Work Phone: [facility] La b Routine Lab max of 3 days, Daily, for lab use only until discontinued starting 06/13/2023, 3 completed [facility] Comment on above: Lab max of 3 days, D aily, for lab use only until discontinued starting 06/13/2023, 3 completed End: 06-13-2023 Pulse oximetry, spot On current oxygen flow Pulse oximetry, spot On current oxygen flow Respiratory Care Routine Once for 1 Occurrences starting 06/13/2023 until 06/13/2023 [email or web address] Work Phone: Comment on above: Once for 1 Occurrenc es starting 06/13/2023 until 06/13/2023 Surgical Pathology Surgical Path ology Pathology and Cytology Routine Acute lower GI bleeding Release Upon Ordering for 1 Occurrences starting 06/14/2023 [email or web address] Work Phone: Comment on above: Release Upon Orderin g for 1 Occurrences starting 06/14/2023 Immunizations Immunization Date Immunization Notes Care Provider Fa [facility] 01-29-2023 zoster vaccine recombinant Willard Krueger MD Work Phone: [employer] 01-29-2023 zoster vaccine, unspecified formulation Scarlet Thomas RN [facility] 12-28-2022 Influenza Vaccine, Quadrivalent, Adjuvanted Willard Krueger MD Work Phone: [facility] [employer] 12-28-2022 influenza virus vaccine, unspecified formulation Marita Wu MD Work Phone: [facility] [employer] 01-15-2022 COVID-19 Pfizer (Pediatric) Kate Mane Other [employer] Other 01-15-2022 influenza virus vaccine, split virus (incl. purified surface antigen) Kate Mane Other [employer] Other 01-15-2022 Prevnar 20 Kate Mane Other [employer] Other 01-15-2022 Influenza, High-dose , Quadrivalent Will[facility] Krueger MD [facility] 03-09-2021 COVID-19 Vaccine Pfi zer - Documentation Purposes Only Kate Mane Other [employer] Other 01-26-2021 pneumococcal polysaccharide vaccine, 23 valent Kate Mane Other [employer] Other 01-13-2021 Influenza, High-dose , Quadrivalent Willard Krueger MD Work Phone: [facility] 05-31-2020 COVID-19 Vaccine Pfi zer - Documentation Purposes Only Kate Mane Other [employer] Other 05-10-2020 COVID-19 Vaccine Pfi zer - Documentation Purposes Only Kate Mane Other [employer] Other 12-21-2018 influenza, high dose seasonal, preservative-free Willard Krueger MD Work Phone: [employer] 01-27-2018 influenza virus vaccine, split virus (incl. purified surface antigen) Kate Mane Other [employer] Other 01-27-2018 influenza, high dose seasonal, preservative-free Willard Krueger MD Work Phone: [facility] 01-27-2018 pneumococcal Conjuga te, unspecified formulation; Translations: [Need for prophylactic vaccination against Streptococcus pneumoniae (pneumococcus)] Kate Teresa Other [employer] Other 01-27-2018 pneumococcal polysaccharide vaccine, 23 valent Katelyubov Mane Other [facility] 02-09-2016 pneumococcal conjuga te vaccine, 13 valent Kate Mane Other [employer] Other 01-20-2016 Seasonal trivalent influenza vaccine, adjuvanted, preservative free Willard Krueger MD Work Phone: [facility] 12-22-2015 influenza virus vaccine, split virus (incl. purified surface antigen) Kate Mane Other [employer] Other 12-25-2014 influenza, high dose seasonal, preservative-free Willard Krueger MD Work Phone: [facility] 01-14-2014 tetanus and diphther ia toxoids, adsorbed, preservative free, for adult use (5 Lf of tetanus toxoid and 2 Lf of diphtheria toxoid) Kate Mane Other [employer] Other 12-18-2012 tetanus and diphther ia toxoids, adsorbed, preservative free, for adult use (5 Lf of tetanus toxoid and 2 Lf of diphtheria toxoid) Kate Mane Other [employer] Other Payers Date Payer Category Payer Unknown [id number] 2022 Self-pay 2022 Unknown [id number] 2021 Managed Care Other (unspecified) [facility] [id number] 2021 Unknown [facility] [id number] 2021-Present [phone] [address] [place] [address] [id number] .[id number] 2021 Unknown [id number] 2015 Unknown [id number] 2008 Medicare [id number]. [id number] .[id number] 1959 Medicare [id number] 1959 Unknown [id number] 1943 Unknown [id number] 2.16.840.1.850495.3.579.2 .647 1943 Unknown [id number] 2.16.840.1.960746.3.579.2 .593 1943 Unknown [id number] 2.16.840.1.929127.3.579.2 .593 1943 Unknown [id number] 2.16.840.1.151122.3.579.2 .593 1943 Unknown [id number] 2.16.840.1.755316.3.579.2 .593 1943 Unknown [id number] 2.16.840.1.957447.3.579.2 .593 1943 Unknown [id number] 2.16.840.1.666955.3.579.2 .593 1943 Unknown [id number] 2.16.840.1.409066.3.579.2 .593 1943 Unknown [id number] 2.16.840.1.802569.3.579.2 .727 1943 Unknown [id number] 2.16.840.1.664050.3.579.2 .727 1943 Unknown [id number] 2.16.840.1.237082.3.579.2 .727 1943 Unknown [id number] 2.16.840.1.039322.3.579.2 .1286 1943 Unknown [id number] 2.16.840.1.985152.3.579.2 .1286 1943 Unknown [id number] 2.16.840.1.447240.3.579.2 .1286 1943 Unknown [id number] 2.16.840.1.202926.3.579.2 .1286 1943 Unknown [id number] 2.16.840.1.599095.3.579.2 .1286 1943 Unknown [id number] 2.16.840.1.158096.3.579.2 .1286 1943 Unknown [id number] 2.16.840.1.147454.3.579.2 .1286 1943 Unknown [id number] 2.16.840.1.192231.3.579.2 .1286 1943 Unknown [id number] 2.16.840.1.143845.3.579.2 .1286 194 Unknown [id number] 2.16.840.1.189432.3.579.2 .1286 1943 Unknown [id number] 2.16.840.1.224382.3.579.2 .1286 1943 Unknown [id number] 2.16.840.1.370441.3.579.2 .1286 1943 Unknown [id number] 2.16.840.1.779275.3.579.2 .1286 1943 Unknown [id number] 2.16.840.1.375549.3.579.2 .1286 1943 Unknown [id number] 2.16.840.1.441679.3.579.2 .1286 1943 Unknown [id number] 2.16.840.1.288663.3.579.2 .1286 1943 Unknown [id number] 2.16.840.1.817443.3.579.2 .1286 1943 Unknown [id number] 2.16.840.1.861056.3.579.2 .1286 1943 Unknown [id number] 2.16.840.1.457698.3.579.2 .1286 1943 Unknown [id number] 2.16.840.1.596007.3.579.2 .1286 1943 Unknown [id number] 2.16.840.1.346783.3.579.2 .1286 1943 Unknown [id number] 2.16.840.1.670075.3.579.2 .1286 194 Unknown [id number] 2.16.840.1.830030.3.579.2 .1286 1943 Unknown [id number] 2.16.840.1.966204.3.579.2 .128 1943 Unknown [id number] 2.16.840.1.661284.3.579.2 .1286 1943 Unknown [id number] 2.16.840.1.078102.3.579.2 .1286 1943 Unknown [id number] 2.16.840.1.933791.3.579.2 .6 1943 Unknown [id number] 2.16.840.1.018535.3.579.2 .1286 1943 Unknown [id number] 2.16.840.1.945907.3.579.2 .1286 1943 Unknown [id number] 2.16.840.1.547720.3.579.2 .6 1943 Unknown [id number] 2.16.840.1.240470.3.579.2 .1285 1943 Unknown [id number] 2.16.840.1.725868.3.579.2 .1285 1943 Unknown [id number] 2.16.840.1.046246.3.579.2 .6 1943 Unknown [id number] 2.16.840.1.396284.3.579.2 .1285 1943 Unknown [id number] 2.16.840.1.005059.3.579.2 .1285 1943 Unknown [id number] 2.16.840.1.779955.3.579.2 .1285 1943 Unknown [id number] 2.16.840.1.095139.3.579.2 .128 1943 Unknown [id number] 2.16.840.1.821321.3.579.2 .1285 1943 Unknown [id number] 2.16.840.1.647286.3.579.2 .128 1943 Unknown [id number] 2.16.840.1.882322.3.579.2 .128 1943 Unknown [id number] 2.16.840.1.987240.3.579.2 .1286 1943 Unknown [id number] 2.16.840.1.113689.3.579.2 .1286 1943 Unknown [id number] 2.16.840.1.205538.3.579.2 .1286 1943 Unknown [id number] 2.16.840.1.128538.3.579.2 .1286 Medicare Medicare Outpatient [id number] 3A [id number] Unknown [facility] [employer] [id number] Unknown [id number] 2.16.840.1.235781.3.579.2 .531 Unknown [id number] 2.16.840.1.355126.3.579.2 .531 Unknown [id number] 2.16.840.1.684921.3.579.2 .531 Unknown [id number] 2.16.840.1.895572.3.579.2 .531 Unknown [id number] 2.16840.1.839387.3.579.2 .531 Social History Date Type Detail Facility Start: 04-30-2022 End: 06-13-2023 Tobacco smoking status [facility] Ex-smoker (finding) [facility] Start: 1945 Sex Assigned At Female F [facility] Start: 05-19-2020 End: 06-13-2023 Sex Assigned At [facility] Tobacco smoking status Never [facility] History of tobacco use Current smoker [facility] History of tobacco use Cigarette Smoker P [facility] Start: 04-02-2023 End: 06-13-2023 Tobacco use and exposure Smokeless tobacco non-user [facility] Start: 07-30-2023 End: 08-01-2023 Alcoholic beverage intake Current drink[facility] of [facility] (finding) [facility] Start: 05-19-2020 End: 06-13-2023 History of Social function [facility] Has the [employer], [employer], or water company threatened to shut off services in your home in past 12Mo No [facility] Start: 04-02-2023 Tobacco Comment QUIT IN JUNE 2019 P [employer] Start: 05-11-2019 Alcohol Comment SOMETIMES [facility] [employer] [facility] Start: 1945 Sex assigned at Not on file P [employer] Start: 11-11-2014 Sex Female (finding) [facility] Medical Equipment Procedure Code Equipment Code Equipment Origin al Text Equipment Identifier Dates ORIF, fracture, wrist Orthopaedic fixation plate, non-bioabsorbable, sterile ()[id number] FDA Start: 04-30-2022 ORIF, fracture, wrist Orthopaedic bone screw, non-bioabsorbable, non-sterile ()[id number] FDA Start: 04-30-2022 ORIF, fracture, wrist Orthopaedic bone wire ()[id number] FDA Start: 04-30-2022 ORIF, fracture, wrist Orthopaedic bone screw, non-bioabsorbable, non-sterile ()[id number] FDA Start: 04-30-2022 ORIF, fracture, wrist Orthopaedic bone screw, non-bioabsorbable, non-sterile ()[id number] FDA Start: 04-30-2022 ORIF, fracture, wrist Orthopaedic bone screw, non-bioabsorbable, non-sterile ()[id number] FDA Start: 04-30-2022 ORIF, fracture, wrist Orthopaedic bone screw, non-bioabsorbable, non-sterile ()[id number] FDA Start: 04-30-2022 Goals Date Patient Goal Desired Activity /State Personal health goal Comment on above: Formatting of this n ote might be different from the original. Evaluation of progress towards goal: to discharge to a residential facility for rehab Functional Status Date Assessment Result Facility 06-04-2022 Functional Status No [facility] Clinical Notes 04-10-2022 to 07-09-2024 Telephone Encounter - Yamileth Angel - 07/09/2024 3:27 PM EDTTelephone Encounter - Claukarie Angel - 07/09/2024 3:27 PM EDTTelephone Encounter - Yamileth Angel - 07/09/2024 2:09 PM EDTAttachments Note Date & Type Note Facility 07-09-2024 Miscellaneous Notes Called patient to inform patient or appt change with dr hyde on 08/13 in [place] to saran fong CNP at [facility] but at 330 instead; LVM to call the office if this didn't work for her; please assist if needed documented in this encounter [facility] 07-09-2024 Telephone encounter Note Called patient to inform patient or appt change with dr hyde on 08/13 in [place] to saran fong CNP at [facility] but at 330 instead; LVM to call the office if this didn't work for her; please assist if needed [facility] 07-09-2024 Miscellaneous Notes Called patient to get appt for 08/13 in [place] with dr Hyde moved to [facility] in [place] the same day in the morning; LVM to call the office; please assist documented in this encounter [facility] 07-09-2024 Telephone encounter Note Called patient to get appt for 08/13 in [place] with dr Hyde moved to [facility] in [place] the same day in the morning; LVM to call the office; please assist [facility] 09-16-2023 Note Visit not completed, as no one answered when called for telemedicine visit. [facility] 08-01-2023 Evaluation + Plan note Associated Problem(s): History of AAA (abdominal aortic aneurysm) repair CT of the abdomen pelvis anemia. 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 [facility] 08-01-2023 Miscellaneous Notes Associated Problem(s): History of AAA (abdominal aortic aneurysm) repair CT of the abdomen pelvis anemia. 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 Addended by: LEON HYDE on: 08/01/2023 09:06 AM Modules accepted: Orders documented in this encounter [facility] 08-01-2023 History of Present illness Narrative Images from the original note were not included. To: NITHYA MALLOY MD HPI: Ellen Chan is a 78 y.o. female with Thoracic abdominal arctic aneurysm and abdominal aortic aneurysm that I repaired in the past. I personally reviewed and interpreted the CAT scan.There is no fracture or migration of the stent.She had hemorrhagic stroke for which she is living in a care home and recovering. Review of Systems: Review of Systems Constitutional: Negative. HENT: Negative. Respiratory: Negative. Cardiovascular: Negative. Gastrointestinal: Negative. Endocrine: Negative. Genitourinary: Negative. Musculoskeletal: Negative. Skin: Negative. Hematological: Negative. Medications: Current Outpatient Medications on File Prior to Visit Medication Sig Dispense Refill amLODIPine (NORVASC) 10 mg tablet Take 1 tablet (10 mg total) by mouth in the morning. (Patient taking differently: Take 1 tablet (10 mg total) by mouth in the morning. Hold if SBP <100 .) 90 tablet 3 aspirin 81 mg Take 1 tablet (81 mg total) by mouth in the morning. 60 tablet 0 cefDINIR (OMNICEF) 300 mg capsule Take 1 capsule (300 mg total) by mouth in the morning and 1 capsule (300 mg total) before bedtime. citalopram (CeleXA) 20 mg tablet Take 1 tablet (20 mg total) by mouth in the morning. clopidogreL (PLAVIX) 75 mg tablet Take 1 tablet (75 mg total) by mouth in the morning. 60 tablet 0 lisinopriL (PRINIVIL,ZESTRIL) 40 mg tablet Take 1 tablet (40 mg total) by mouth in the morning and 1 tablet (40 mg total) before bedtime. (Patient taking differently: Take 1 tablet (40 mg total) by mouth in the morning. Hold if SBP <100 .) 180 tablet 3 melatonin (CIRCADIN) tablet Take 1 tablet (3 mg total) by mouth nightly. metoprolol tartrate (LOPRESSOR) 25 mg tablet Take 1 tablet (25 mg total) by mouth in the morning and 1 tablet (25 mg total) before bedtime. Hold if SBP <100 . mirtazapine (REMERON VIRI-TAB) 30 mg disintegrating tablet Dissolve 1 tablet (30 mg total) on tongue nightly. ondansetron ODT (ZOFRAN ODT) 4 mg disintegrating tablet Dissolve 1 tablet (4 mg total) on tongue every 8 (eight) hours as needed for nausea or vomiting. pantoprazole (PROTONIX) 40 mg EC tablet Take 1 tablet (40 mg total) by mouth every morning before breakfast. potassium chloride (K-TAB,KLOR-CON) 10 MEQ CR tablet Take 2 tablets (20 mEq total) by mouth in the morning and 2 tablets (20 mEq total) before bedtime. hydroCHLOROthiazide (HYDRODIURIL) 25 mg tablet Take 1 tablet (25 mg total) by mouth daily. (Patient not taking: Reported on 06/13/2023) potassium chloride (KLOR-CON) 20 mEq packet Klor-Con 20 mEq oral packet Take 1 packet 4 times a day by oral route. (Patient not taking: Reported on 04/02/2023) No current facility-administered medications on file prior to visit. Past Medical History: Past Medical History: Diagnosis Date AAA (abdominal aortic aneurysm) (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) Hemorrhage of rectum and anus Hyperlipidemia Hyperosmolality and/or hypernatremia Hypertension Hypokalemia Nonrheumatic tricuspid valve regurgitation Nontraumatic intracerebral hemorrhage in hemisphere, subcortical ([facility]) Other specified diseases of anus and rectum Other symptoms and signs concerning food and fluid intake Pneumonitis due to inhalation of food or vomitus ([facility]) Polyp of colon Restlessness and agitation Shortness of breath Thrombocytopenia, unspecified ([facility]) Ulceration of intestine Upper respiratory infection 05/2019 Vascular disorder of intestine ([facility]) Visual impairment glasses Past Surgical History: Past Surgical History: Procedure Laterality Date BREAST BIOPSY BREAST SURGERY 1989 BREAST BX CARDIAC SURGERY STENT 2019 CARDIAC SURGERY LEFT VENTRICLE STENT 2018 COLONOSCOPY POLYPECTOMY Left Lateral 06/14/2023 Performed by Олег Long MD at [facility] DILATION AND CURETTAGE, DIAGNOSTIC / THERAPEUTIC 1986 ESOPHAGOGASTRODUODENOSCOPY INSERTION PEG TUBE N/A 04/11/2023 Performed by Dae Bo MD at [facility] HYSTERECTOMY KNEE ARTHROSCOPY Left KNEE ARTHROSCOPY Left REMOVE METAL 2014 LAPAROSCOPIC CHOLECYSTECTOMY N/A 05/26/2019 Performed by Caro Pollard DO at [facility] ORIF WRIST FRACTURE Right Pins Social and Family History: Social History Socioeconomic History Marital status: Spouse name: Not on file Number of children: Not on file Years of education: Not on file Highest education level: Not on file Occupational History Not on file Tobacco Use Smoking status: Former Types: Cigarettes Smokeless tobacco: Never Tobacco comments: QUIT IN JUNE 2019 Vaping Use Vaping status: Never Used Substance and Sexual Activity Alcohol use: Yes Comment: SOMETIMES Drug use: Never Sexual activity: Defer Other Topics Concern Not on file Social History Narrative Not on file Social Determinants of Health Financial Resource Strain: Low Risk (06/13/2023) Overall Financial Resource Strain (CARDIA) Difficulty of Paying Living Expenses: Not hard at all Food Insecurity: No Food Insecurity (06/13/2023) Hunger Screening Food Insecurity - Worry: Never True Food Insecurity - Inability: Never True Transportation Needs: No Transportation Needs (06/13/2023) PRAPARE - Transportation Lack of Transportation (Medical): No Lack of Transportation (Non-Medical): No Physical Activity: Not on file Stress: Not on file Social Connections: Not on file Interpersonal Safety: Not At Risk (06/13/2023) Humiliation, Afraid, Rape, and Kick questionnaire Fear of Current or Ex-Partner: No Emotionally Abused: No Physically Abused: No Sexually Abused: No Housing Instability: Low Risk (06/13/2023) Housing Instability Housing Instability: No History reviewed. No pertinent family history. Recent Labs: Recent and relative labs were reviewed and interpreted and contributed to the assessment and plan below. Vitals: BP 98/60 (BP Site: Left Arm, BP Postition: Sitting, BP CUFF SIZE: M (9-13 inches)) Pulse 66 Ht 162.6 cm (5' 4 ) Wt 62.1 kg (137 lb) BMI 23.52 kg/m Body mass index is 23.52 kg/m . Physical Exam: Physical Exam Constitutional: Appearance: Normal appearance. HENT: Head: Normocephalic and atraumatic. Mouth/Throat: Mouth: Mucous membranes are moist. Eyes: Extraocular Movements: Extraocular movements intact. Pupils: Pupils are equal, round, and reactive to light. Cardiovascular: Rate and Rhythm: Normal rate and regular rhythm. Pulmonary: Effort: Pulmonary effort is normal. Breath sounds: Normal breath sounds. Abdominal: General: Abdomen is flat. Bowel sounds are normal. Palpations: Abdomen is soft. Musculoskeletal: Cervical back: Normal range of motion. Skin: General: Skin is warm and dry. Neurological: Mental Status: She is alert. Mental status is at baseline. Motor: Weakness present. Psychiatric: Mood and Affect: Mood normal. Behavior: Behavior normal. Thought Content: Thought content normal. Judgment: Judgment normal. Recent testing: CT of the chest abdomen pelvis Assessment and Plan: Problem List History of AAA (abdominal aortic aneurysm) repair - Primary Current Assessment & Plan CT of the abdomen pelvis anemia. 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 While intending to generate a timely document that accurately reflects the content of the visit, no guarantee can be provided that every grammatical or spelling mistake has been or will be identified or corrected. Thank you for your understanding. documented in this encounter [facility] 08-01-2023 Note Addended by: LEON HYDE on: 08/01/2023 09:06 AM Modules accepted: Orders [facility] 07-24-2023 Miscellaneous Notes ----- Message from Radha Perry CMA sent at 05/23/2023 2:24 PM EST ----- Per September 2023 recall, pt is to follow up with Dr. Wu. Please call pt and schedule an appointment. Thank you! Pt is to get MRI brain wwo contrast done before the visit. Please remind patient as well if it has not been completed yet. Provide central scheduling number if necessary. Spoke with Roula and scheduled video visit also gave her central scheduling number documented in this encounter [facility] 07-24-2023 Telephone encounter Note ----- Message from Radha Perry CMA sent at 05/23/2023 2:24 PM EST ----- Per September 2023 recall, pt is to follow up with Dr. Wu. Please call pt and schedule an appointment. Thank you! Pt is to get MRI brain wwo contrast done before the visit. Please remind patient as well if it has not been completed yet. Provide central scheduling number if necessary. [facility] 07-24-2023 Telephone encounter Note Spoke with Roula and scheduled video visit also gave her central scheduling number [facility] 06-16-2023 Plan of care note Problem: Pain Goal: Patient goal is pain [...] data entry representative interventions for comforting Outcome: Adequate for Discharge Problem: Safety Goal: Patient will be injury [...] representative in decisions related to safety Outcome: Adequate for Discharge Problem: Infection Goal: Absence of infection during [...] entry representative in use of appropriate isolation precautions for identified infection/symptoms 8. Provide and discuss with patient/patient data entry representative on educational MDRO sheet 9. Encourage and monitor nutritional status daily and consult professional fighter if indicated 10. Implement neutropenic guidelines as needed 11. Review exposure to history of communicable disease and recent travel history on admission 12. Encourage annual influenza vaccine 13. Encourage pneumonia vaccine Outcome: Adequate for Discharge Problem: Knowledge Deficit Goal: Patient/patient data entry representative demonstrates understanding of disease process, treatment plan, medications, and discharge instructions Description: INTERVENTIONS 1. Complete learning assessment and assess knowledge base 2. Provide teaching at level of understanding 3. Provide teaching via preferred learning method(s) Outcome: Adequate for Discharge Problem: Discharge Planning Goal: Discharge to post-acute [...] for needed discharge transportation as appropriate Outcome: Adequate for Discharge Problem: Potential for Compromised Skin Integrity Goal: [...] initiate plans and interventions as needed Outcome: Adequate for Discharge Goal: Patient's nutritional intake is adequate Description: [...] supplement as ordered 13. Collaborate with clinical professional fighter 14. Include patient/ patient's data entry representative in decisions related to nutrition Outcome: Adequate for Discharge Problem: Urinary Incontinence Goal: Perineal skin integrity [...] initiate plans and interventions as needed Outcome: Adequate for Discharge Problem: Moderate - High Risk Fall Score Description: Cordova Fall Score of =/> 25 or indicated by [facility] Assessment Goal: Patient should be free from fall Description: Interventions: 1. [place] to environment 2. Hourly rounds addressing the [...] how to maintain a safe environment during visitation times (notify nurse prior to leaving bedside) 25. Consider appropriateness of medical or non-medical records auditor 26. Set up voiding schedule as appropriate (every 2 hours) Outcome: [facility]16[facility]23 Miscellaneous Notes Problem: Pain Goal: Patient goal is pain [...] data entry representative interventions for comforting Outcome: Adequate for Discharge Problem: Safety Goal: Patient will be injury [...] representative in decisions related to safety Outcome: Adequate for Discharge Problem: Infection Goal: Absence of infection during [...] entry representative in use of appropriate isolation precautions for identified infection/symptoms 8. Provide and discuss with patient/patient data entry representative on educational MDRO sheet 9. Encourage and monitor nutritional status daily and consult professional fighter if indicated 10. Implement neutropenic guidelines as needed 11. Review exposure to history of communicable disease and recent travel history on admission 12. Encourage annual influenza vaccine 13. Encourage pneumonia vaccine Outcome: Adequate for Discharge Problem: Knowledge Deficit Goal: Patient/patient data entry representative demonstrates understanding of disease process, treatment plan, medications, and discharge instructions Description: INTERVENTIONS 1. Complete learning assessment and assess knowledge base 2. Provide teaching at level of understanding 3. Provide teaching via preferred learning method(s) Outcome: Adequate for Discharge Problem: Discharge Planning Goal: Discharge to post-acute [...] for needed discharge transportation as appropriate Outcome: Adequate for Discharge Problem: Potential for Compromised Skin Integrity Goal: [...] initiate plans and interventions as needed Outcome: Adequate for Discharge Goal: Patient's nutritional intake is adequate Description: [...] supplement as ordered 13. Collaborate with clinical professional fighter 14. Include patient/ patient's data entry representative in decisions related to nutrition Outcome: Adequate for Discharge Problem: Urinary Incontinence Goal: Perineal skin integrity [...] initiate plans and interventions as needed Outcome: Adequate for Discharge Problem: Moderate - High Risk Fall Score Description: Cordova Fall Score of =/> 25 or indicated by [facility] Assessment Goal: Patient should be free from fall Description: Interventions: 1. [place] to environment 2. Hourly rounds addressing the [...] how to maintain a safe environment during visitation times (notify nurse prior to leaving bedside) 25. Consider appropriateness of medical or non-medical records auditor 26. Set up voiding schedule as appropriate (every 2 hours) Outcome: Adequate for Discharge DISCHARGE PLANNING NOTE Community Referral Form/medication reconciliation attached to [facility]. Spoke with Jody, patient is all good to admit. BLS transport is scheduled for 3pm. Patient has been updated. RN notified. D/C packet complete, report number on front of packet. - Amita James RN 06/16/23 12:40 PM DISCHARGE PLANNING NOTE BLS transport via PTN to [facility] 06.16.23 at 3:00pm. Confirmed in [facility] Evaluation Discharge Recommendations PT Recommendations: Nursing Home Facility SNF/ECF Comments: To improve safety awareness and functional independence prior to safe discharge 6 Clicks: Basic Mobility Turning from your back to your side while in a flat bed without using bed rails?: A lot Moving from lying on your back to sitting on side of flat bed without using bed rails?: Total Moving to and from bed to a chair (including w/c)?: Total Standing up from a chair using your arms (e.g. w/c or bedside chair)?: Total To walk in hospital room?: Total Climbing 3-5 steps with a railing?: Total Scoring 6 Clicks: Basic Mobility Raw Score: 7 CMS G Code Modifier: CM Therapy Plan Need for skilled Physical Therapy to address deficits in functional mobility due to a status decline resulting from recent admit on 06/13/23 as transfer from [facility] for vascular, IR and general surgery consult. 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 06/13 colonoscopy showed diffuse mucosal ulceration of rectum and sigmoid colon with no active bleeding. No surgical plans per general surgery. Biopsies were taken and plan 7 days of antibiotics. GI signed off DX: rectal bleed secondary to ischemic colitis, hypokalemia, and R common iliac artery aneurysm. Per EMR, pt has h/o dementia. Past Medical History: Diagnosis Date AAA (abdominal aortic aneurysm) ([facility]) was surgically taken care of 09/2018 GERD (gastroesophageal reflux disease) Hypertension Upper respiratory infection 05/2019 Visual impairment glasses Past Surgical History: Procedure Laterality Date BREAST BIOPSY BREAST SURGERY 1989 BREAST BX CARDIAC SURGERY STENT 2019 CARDIAC SURGERY LEFT VENTRICLE STENT 2018 COLONOSCOPY POLYPECTOMY Left Lateral 06/14/2023 Performed by Олег Long MD at [facility] DILATION AND CURETTAGE, DIAGNOSTIC / THERAPEUTIC 1986 ESOPHAGOGASTRODUODENOSCOPY INSERTION PEG TUBE N/A 04/11/2023 Performed by Dae Bo MD at [facility] HYSTERECTOMY KNEE ARTHROSCOPY Left KNEE ARTHROSCOPY Left REMOVE METAL 2014 LAPAROSCOPIC CHOLECYSTECTOMY N/A 05/26/2019 Performed by Caro Pollard DO at [facility] ORIF WRIST FRACTURE Right Pins PT Treatment/Interventions: Functional transfer training, LE strengthening/ROM, Endurance training, Patient/family training, Equipment eval/education, Balance, Bed mobility, Compensatory technique education, Coordination activities, Functional activities PT Frequency: 4-5days/week PT Duration: LOS Patient Response to Treatment: Tolerated evaluation without adverse reaction Assessment Patient Assessment Therapy Problem List: Decreased balance, Decreased endurance, Decreased gross motor, Decreased mobility, Decreased LE strength Patient Response to Treatment: Tolerated evaluation without adverse reaction Mood/Affect: Appropriate for circumstances Rehab Prognosis: Good, With continued PT status post acute discharge Visit RN Communication: Yes Medical Record Reviewed: Yes PT Type of Visit: Evaluation Precautions Activity: early mobility: pass Equipment: maxi osphia with repositioning sling, resting hand splint to LUE, podus boot to L foot, lenz, PEG tube Telemetry/[place] Machine Operator: Yes Oxygen Used: room air Other: high fall risk, h/o CVA with right hemiplegia and aphasia s/p recent L ICH on 06/02/22, bed/chair alarm Pain Assessment Pain Assessment: No/denies pain (reported no pain but noted grimacing with PROM of RUE) Home Living Type of Home: Facility Other : Prior to [facility] [place] pt was IND alone at home but since pt has been at facility and unable to walk Prior Function Level of Mobility: Needs assistance with ADLs or functional transfers or gait Homemaking Assistance: Needs assistance Other: pt has required TA since Stroke in Mar. ADL / IADL Hand Dominance: Right Hearing / Speech / Vision Hearing: Within Functional Limits Speech: Global aphasia, Receptive aphasia, Expressive aphasia Current Vision: Does not wear glasses (no visual changes noted) Cognition Overall Cognitive Status: Exceptions to Within Functional Limits Arousal/Alertness: Delayed responses to stimuli Attention Span: Attends with cues to redirect Memory: Decreased short term memory Orientation Level: Oriented to person, Oriented to age, Disoriented to place, Disoriented to time, Disoriented to month Following Commands: Follows one step commands with increased time, Follows one step commands with repetition Safety Judgment: Decreased awareness of need for assistance, Decreased awareness of need for safety Awareness of Errors: Assistance required to identify errors made, Assistance required to correct errors made Insight of Deficits: Decreased awareness of deficits Problem Solving: Nonfunctional Interfering Components: Processing speed, Working memory Bed Mobility Rolling: Mod assist, Right, Max assist, Left Other: Rolling to either side for brief change and repositioning. nely for transfer to recliner Transfers Bed to Chair: Total assist (nely lift) Gait Other: ABDULLAHI Balance Sitting Balance: Static: Poor Other: pt unable to without assist lean forward in recliner RLE Assessment: (grossly :1/5) LLE Assessment: (grossly: 3-/5) Activity Tolerance Endurance: Tolerates <30 minutes activity WITHOUT vital sign changes Other: limited d/t weakness and fatigue Plan Physical Therapy Care Plan Physical Therapy Care Plan (Active) Template: PT - Physical Therapy Problem: Activity Tolerance Dates: Start: 06/16/23 Disciplines: PT Goal: Tolerate > 30 minutes of activity WITH rest breaks Dates: Start: 06/16/23 Expected End: 07/26/23 Description: Goal Description: Disciplines: PT Problem: Bed Mobility Dates: Start: 06/16/23 Disciplines: PT Goal: Patient will perform bed mobility with Minimum Assist Dates: Start: 06/16/23 Expected End: 07/26/23 Description: Goal Description: with proper BUE placement and sequencing Disciplines: PT Problem: Sitting Balance Dates: Start: 06/16/23 Disciplines: PT Goal: Improve balance to good Dates: Start: 06/16/23 Expected End: 07/26/23 Description: Static/Dynamic to reduce risk of falls with all functional tasks Disciplines: PT Problem: Strength Dates: Start: 06/16/23 Disciplines: PT Goal: Improve strength Dates: Start: 06/16/23 Expected End: 07/26/23 Description: Of extremity/ location: LLE strength to WFL and RLE strength to 3+/5 To facilitate: with proper gait pattern and safety awareness Disciplines: PT Physical Therapy Care Plan (Resolved) There are no resolved problems. Principal Problem: Acute lower GI bleeding Active Problems: Acute blood loss anemia History of hemorrhagic cerebrovascular accident (CVA) with residual deficit Essential hypertension Ischemic colitis (CMS-HCC) Dementia (CMS-HCC) History of AAA (abdominal aortic aneurysm) repair Right renal mass Occupational Therapy Evaluation Discharge Recommendations OT Recommendations : Nursing Home Facility SNF/ECF Comments: d/t weakness, balance and cognitive deficits affecting safety and independence with ADLs; pt requires / care and total assist with mobility/transfers Patient admitted on 06/12 as a transfer from [facility] for vascular, IR, and general surgery consult. Pt had presented to [facility] on 06/10 with staff report of blood in stool. CT of abdomen at [facility] showed concern for ischemic colitis. 06/12 general surgery consulted and approved CLD and deferred to GI. 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 06/13 s/p colonoscopy showed diffuse mucosal ulceration of rectum and sigmoid colon with no active bleeding. No surgical plans per general surgery. Biopsies were taken and plan 7 days of antibiotics. GI signed off. DX: rectal bleed secondary to ischemic colitis, hypokalemia, and R common iliac artery aneurysm. Per EMR, pt has h/o dementia. 6 Clicks: Daily Activity Putting on and taking off regular lower body clothing?: Total Bathing (including washing, rinsing, drying)?: A lot Toileting, which includes using toilet, bedpan or urinal?: Total Putting on and taking off regular upper body clothing?: A lot Taking care of personal grooming such as brushing teeth?: A lot Eating meals?: A little Scoring Daily Activity Raw Score: 11 [facility] G Code Modifier: CL No chief complaint on file. Past Medical History: Diagnosis Date AAA (abdominal aortic aneurysm) ([facility]HCC) was surgically taken care of 09/2018 GERD (gastroesophageal reflux disease) Hypertension Upper respiratory infection 05/2019 Visual impairment glasses Past Surgical History: Procedure Laterality Date BREAST BIOPSY BREAST SURGERY 1989 BREAST BX CARDIAC SURGERY STENT 2019 CARDIAC SURGERY LEFT VENTRICLE STENT 2018 COLONOSCOPY POLYPECTOMY Left Lateral 06/14/2023 Performed by Олег Long MD at [facility] DILATION AND CURETTAGE, DIAGNOSTIC / THERAPEUTIC 1986 ESOPHAGOGASTRODUODENOSCOPY INSERTION PEG TUBE N/A 04/11/2023 Performed by Dae Bo MD at [facility] HYSTERECTOMY KNEE ARTHROSCOPY Left KNEE ARTHROSCOPY Left REMOVE METAL 2014 LAPAROSCOPIC CHOLECYSTECTOMY N/A 05/26/2019 Performed by Caro Pollard DO at [facility] ORIF WRIST FRACTURE Right Pins Therapy Plan Need for skilled Occupational Therapy to address deficits in ADL independence and functional mobility due to a status decline resulting from generalized weakness. OT Treatment/Interventions: ADL retraining, Functional transfer training, UE strengthening/ROM, Patient/family training, Equipment eval/education, Endurance training, Cognitive reorientation, Balance, Home management, Bed mobility, Compensatory technique education, Fine motor activities, Coordination activities, Functional activities, Neuromuscular reeducation OT Frequency: 4-5days/week OT Duration: until discharge Assessment Patient Assessment Therapy Problem List: Decreased balance, Decreased ADL status, Decreased cognition, Decreased endurance, Decreased high-level ADLs, Decreased mobility, Decreased safe judgement during ADL, Decreased fine motor, Decreased gross motor, Decreased self-care trans, Decreased UE ROM, Decreased UE strength, Non-functional RUE Patient Response to Treatment: Tolerated evaluation without adverse reaction Mood/Affect: Appropriate for circumstances Rehab Prognosis: Good, With continued OT status post acute discharge Visit RN Communication: Yes Medical Record Reviewed: Yes OT Type of Visit: Evaluation Precautions Activity: early mobility - pass Equipment: maxi sophia with repositioning sling, resting hand splint to LUE, podus boot to L foot, lenz, PEG Telemetry/[place] Machine Operator: Yes Oxygen Used: room air Other: high fall risk, h/o aphasia and R hemiplegia s/p recent L ICH 06/02/22, bed/chair alarm Pain Assessment Pain Assessment: No/denies pain (pt denies pain but has grimacing with PROM of RUE) Home Living Type of Home: Facility Other : prior to March 2023 pt was living alone and independent but s/p stroke pt has been at SNF and unable to walk Prior Function Level of Mobility: Needs assistance with ADLs or functional transfers or gait (assist with all care since March) Homemaking Assistance: Needs assistance (assist with all care since March) ADL / IADL Hand Dominance: Right Where Assessed: Supine, bed, Chair Eating Assistance: Min assist (provided patient with setup of food) Grooming Assistance: Max assist Bathing/Showering Assistance: Max assist Toilet/Commode Assistance: Max assist UE Dressing Assistance: Max assist LE Dressing Assistance: Total assist Footwear Assistance: Total assist Hearing / Speech / Vision Hearing: Within Functional Limits Speech: Other (Comment) (pt appears to have some expresive/receptive aphasia) Current Vision: Does not wear glasses (pt denies any vision changes and is able to read clock on wall) Cognition Overall Cognitive Status: Exceptions to Within Functional Limits Arousal/Alertness: Delayed responses to stimuli Attention Span: Attends with cues to redirect Memory: Decreased short term memory Orientation Level: Oriented to person, Oriented to age, Disoriented to place, Disoriented to time, Disoriented to month (pt did know it was Saturday) Following Commands: Follows one step commands with increased time, Follows one step commands with repetition Safety Judgment: Decreased awareness of need for assistance, Decreased awareness of need for safety Awareness of Errors: Assistance required to identify errors made, Assistance required to correct errors made Insight of Deficits: Decreased awareness of deficits Problem Solving: Nonfunctional Interfering Components: Processing speed, Working memory Bed Mobility Rolling: Mod assist, Right, Max assist, Left Other: Pt rolled side to side for brief change and repositioning with assist provided for hand and foot placement, pt unable to use R side of body to assist, remained in chair with call light in reach and chair alarm on Transfers Sit to Stand: Unable to assess Bed to Chair: Total assist (maxi sophia) Gait Gait Assistance: Unable to assess Balance Balance Evaluation: Exceptions to Functional Limits Sitting Balance: Static: Poor Other: attempted to have patient sit forward in chair to reposition self and place pillow behind head but pt pushes back into extension with attempt RUE Assessment: Exceptions to WFL (1/5 with shoulder shrug and shoulder extension, otherwise grossly 0/5) LUE Assessment: Within Functional Limits Activity Tolerance Endurance: Tolerates <30 minutes activity WITHOUT vital sign changes Plan Occupational Therapy Care Plan Occupational Therapy Care Plan (Active) Template: OT - Occupational Therapy Problem: Activity Tolerance Dates: Start: 06/16/23 Disciplines: OT Goal: Tolerate > 30 minutes of activity WITH rest breaks Dates: Start: 06/16/23 Expected End: 07/07/23 Description: Goal Description: Disciplines: OT Problem: Bathing UB Dates: Start: 06/16/23 Disciplines: OT Goal: Patient will perform bathing UB with Minimum Assist Dates: Start: 06/16/23 Expected End: 07/07/23 Description: Goal Description: Disciplines: OT Problem: Bed Mobility Dates: Start: 06/16/23 Disciplines: OT Goal: Patient will perform bed mobility with Modified [place] Dates: Start: 06/16/23 Expected End: 07/07/23 Description: Goal Description: Disciplines: OT Problem: Dressing UB Dates: Start: 06/16/23 Disciplines: OT Goal: Patient will perform dressing UB with Minimum Assist Dates: Start: 06/16/23 Expected End: 07/07/23 Description: Goal Description: Disciplines: OT Problem: Grooming Dates: Start: 06/16/23 Disciplines: OT Goal: Patient will perform grooming with Stand By Assist Dates: Start: 06/16/23 Expected End: 07/07/23 Description: Goal Description: Disciplines: OT Problem: ROM Dates: Start: 06/16/23 Disciplines: OT Goal: Improve ROM Dates: Start: 06/16/23 Expected End: 07/07/23 Description: Of extremity/ location: Pt will tolerate AAROM/PROM to RUE in all planes for 15 reps To facilitate: improved ROM to dec risk for contractures Disciplines: OT Problem: Sitting Balance Dates: Start: 06/16/23 Disciplines: OT Goal: Improve balance to good Dates: Start: 06/16/23 Expected End: 07/07/23 Description: Static Dynamic Disciplines: OT Problem: Strength Dates: Start: 06/16/23 Disciplines: OT Goal: Improve strength Dates: Start: 06/16/23 Expected End: 07/07/23 Description: Of extremity/ location: LUE to be 5/5 grossly To facilitate: independence with ADLs Disciplines: OT Problem: Toileting Dates: Start: 06/16/23 Disciplines: OT Goal: Patient will perform toileting with Moderate Assist Dates: Start: 06/16/23 Expected End: 07/07/23 Description: Goal Description: Disciplines: OT Problem: Transfers Dates: Start: 06/16/23 Disciplines: OT Goal: Patient will perform transfers with Moderate Assist Dates: Start: 06/16/23 Expected End: 07/07/23 Description: Goal Description: Disciplines: OT Occupational Therapy Care Plan (Resolved) There are no resolved problems. Principal Problem: Acute lower GI bleeding Active Problems: Acute blood loss anemia History of hemorrhagic cerebrovascular accident (CVA) with residual deficit Essential hypertension Ischemic colitis (CMS-HCC) Dementia ([facility]) History of AAA (abdominal aortic aneurysm) repair Right renal mass Problem: Safety Goal: Patient will be injury [...] Note: Evaluation of progress towards goal: No falls/injuries. Safety maintained. Problem: Infection Goal: Absence of infection [...] entry representative in use of appropriate isolation precautions for identified infection/symptoms 8. Provide and discuss with patient/patient data entry representative on educational MDRO sheet 9. Encourage and monitor nutritional status daily and consult professional fighter if indicated 10. Implement neutropenic guidelines as needed 11. Review exposure to history of communicable disease and recent travel history on admission 12. Encourage annual influenza vaccine 13. Encourage pneumonia vaccine Outcome: Progressing Note: Evaluation of progress towards goal: IV ATBs continue. Afebrile. DISCHARGE PLANNING NOTE Cancelled BLS for today. Spoke with Meenakshi [facility]. DISCHARGE PLANNING NOTE KRISSY spoke with Jody this morning with Shr[facility] about patient returning. She stated that was good and to send CRF when we got it. CN was then called by bedside RN at 1345 to say the facility had called him and did not officially accept patient and needed information. KRISSY called facility and spoke with Mulu, who stated they needed progress notes, PT/OT notes, medication list. CN faxed all information requested and bedside RN reached out to therapy to see patient. Therapy could not see patient today. Transport is cancelled and will follow up in the morning to see if [facility] can take patient. - Amita James RN 06/15/23 2:16 PM DISCHARGE PLANNING NOTE BLS transport via [facility]N to the [facility] 3.9.24 at 4:00pm. Confirmed in [facility] Colonoscopy completed yesterday with removal of 3 polyps and endoscopic findings of mucosal ulcerations and erythema in the rectum and rectosigmoid junction. Biopsies were taken to rule out ischemic colitis. Recommend antibiotics for 7 days. Recommend laxatives and avoiding constipation. Okay to resume anticoagulation after 72 hours post procedure if needed. No further recommendations from GI. We will sign off. Please call with questions. Speech Therapy Videofluoroscopic Swallow Study Evaluation Impressions Oral Phase: Mild Pharyngeal Phase: Mild Functional Oral Intake Scale: Total PO with multiple consistencies requiring special prep Recommendations Diet Level: Level 6 Soft and Bite-Sized Liquid Level: Level 0 Thin Compensatory Strategies: Follow aspiration precautions, One sip/bite at a time, Small sips/bites Supervision/Positioning: Patient at 90 degress for all PO intake (including medication), Patient to remain upright 15 minutes after meals Medications: In applesauce/puree Referrals: Dysphagia therapy, [facility] Discharge Recommendations: Other (comment) (ongoing ST services) Plan Frequency: 1-2days/week Duration: until discharge Treatments/Modalities: Safety strategies, Oral motor treatment plan, Pharyngeal strengthening Need for skilled Speech Language Pathology Services to address deficits in feeding/swallowing due to a status decline resulting from acute lower GI bleeding. Pt educated on purpose of exam, contrast administration, and procedural techniques prior to initiation of exam. Pt educated on diet recommendations, plan of care, and encouraged to use safety strategies in order to maintain safe PO intake following exam. Okay for Level 6 Soft & Bite-Sized (SB6) Diet with Level 0 Thin liquids. Prognosis Services: Skilled PLANNER services to address above deficits Prognosis/Potential: Good Considerations: Age, Cognition, Previous level of function, Severity of impairments Assessment Baseline Assessment Allergies Marked As Reviewed: Complete Consistencies Tested Views: Lateral position Level 0 Thin: Spoon, Cup, Straw Level 4 Pureed: Spoon Level 6 Soft & Bite-Sized: Spoon Regular Tested: Bite Modified Barium Swallow Impairment Profile (MBSImP) Oral Impairment: Yes Component 1: Lip Closure: no labial escape Component 2: Tongue Control During Bolus Hold: escape to lateral buccal cavity/floor of mouth Component 3: Bolus Preparation/Mastication: slow prolonged chewing/mashing with complete re-collection Component 4: Bolus Transport/Lingual Motion: delayed initiation of tongue motion Component 5: Oral Residue: trace residue lining oral structures Component 6: Initiation of Pharyngeal Swallow: bolus head at posterior laryngeal surface of epiglottis Pharyngeal Impairment: Yes Component 7: Soft Palate Elevation: no bolus between soft palate/posterior pharyngeal wall Component 8: Laryngeal Elevation: complete superior movement of thyroid cartilage with complete approximation of arytenoids to epiglottic petiole Component 9: Anterior Hyoid Excursion: partial anterior movement Component 10: Epiglottic Movement: partial inversion Component 11: Laryngeal Vestibular Closure - Height of the Swallow: incomplete, narrow column of contrast/air in laryngeal vestibule Component 12: Pharyngeal Stripping Wave: present - diminished Component 13: Pharyngeal Contraction (A/P view only): could not be determined due to logistical reasons not related to physiologic impairment Component 14: Pharyngoesophageal Segment Opening: partial distension/partial duration, partial obstruction of flow Component 15: Tongue Base Retraction: narrow column of contrast/air between tongue base and posterior pharyngeal wall Component 16: Pharyngeal Residue: collection of residue within or on pharyngeal structures MBSImP Overall Impression Scores Oral Impairment Total: 6 Pharyngeal Impairment Total: 9 Penetration/Aspiration Scale Penetration/Aspiration Scale Performed: Yes Level 0 Thin: Contrast did not enter the airway Level 4 Pureed: Contrast did not enter the airway Level 6 Soft & Bite-Sized: Contrast did not enter the airway Regular: Contrast did not enter the airway Trialed Compensatory Strategies Strategies Utilized: Small sips/bites, Double swallow, Controlled bolus Effective: Yes Pain Assessment Pain Assessment: No/denies pain Plan Diagnosis Code Swallowing: R13.12 Dysphagia, oropharyngeal phase Speech Therapy Care Plan Speech Therapy Care Plan (Active) Template: ST - Dysphagia Problem: Swallowing Dates: Start: 06/13/23 Disciplines: PLANNER Goal: LTG: Patient will tolerate least restrictive diet recommended by PLANNER without signs and symptoms of aspiration 90% of the time Dates: Start: 06/13/23 Expected End: 07/14/23 Disciplines: PLANNER Outcomes Date/Time User Outcome 06/15/23 1004 BARRINGTON Mayer Progressing Goal: STG: Patient will complete safety strategies independently during PO intake 90% of the time Dates: Start: 06/13/23 Expected End: 07/14/23 Disciplines: PLANNER Outcomes Date/Time User Outcome 06/15/23 1004 BARRINGTON Mayer Progressing Goal: STG: Patient will complete oral/ pharyngeal strengthening program with resistance with 90% accuracy with minimal cueing Dates: Start: 06/13/23 Expected End: 07/14/23 Disciplines: PLANNER Speech Therapy Care Plan (Resolved) There are no resolved problems. Principal Problem: Acute lower GI bleeding Active Problems: Acute blood loss anemia History of hemorrhagic cerebrovascular accident (CVA) with residual deficit Essential hypertension Ischemic colitis ([facility]) Dementia ([facility]) History of AAA (abdominal aortic aneurysm) repair Right renal mass Problem: Pain Goal: Patient goal is pain [...] Progressing Note: Evaluation of progress towards goal: Discussed with the patient about means of using pharmacologic and nonpharmacologic methods to manage pain. Education was completed and hourly rounding is in place. Patient has no further questions at time. Problem: Safety Goal: Patient will be injury [...] Evaluation of progress towards goal: Patient is free of injury. Will continue to implement fall precautions, five medication administration rights and hand hygiene. Problem: Infection Goal: Absence of infection during [...] entry representative in use of appropriate isolation precautions for identified infection/symptoms 8. Provide and discuss with patient/patient data entry representative on educational MDRO sheet 9. Encourage and monitor nutritional status daily and consult professional fighter if indicated 10. Implement neutropenic guidelines as needed 11. Review exposure to history of communicable disease and recent travel history on admission 12. Encourage annual influenza vaccine 13. Encourage pneumonia vaccine Outcome: Progressing Note: Evaluation of progress towards goal: Patient is free from infection. Will continue to monitor vitals, WBC count, and perform hand hygiene. Problem: Knowledge Deficit Goal: Patient/patient data entry representative demonstrates understanding of disease process, treatment plan, medications, and discharge instructions Description: INTERVENTIONS 1. Complete learning assessment and assess knowledge base 2. Provide teaching at level of understanding 3. Provide teaching via preferred learning method(s) Outcome: Progressing Note: Evaluation of progress towards goal: Plan of care and medications discussed with patient. Patient verbalizes their understanding and acceptance. Problem: Moderate - High Risk Fall Score Description: [place] Fall Score of =/> 25 or indicated by [facility] Assessment Goal: Patient should be free from fall Description: Interventions: 1. [place] to environment 2. Hourly rounds addressing the [...] how to maintain a safe environment during visitation times (notify nurse prior to leaving bedside) 25. Consider appropriateness of medical or non-medical records auditor 26. Set up voiding schedule as appropriate (every 2 hours) Outcome: Progressing Note: Evaluation of progress towards goal: Patient is free from falls. Bed in lowest position and locked, non-slip footwear, patient understands how to use the call light and personal items are in reach. Problem: Pain Goal: Patient goal is pain [...] Note: Evaluation of progress towards goal: patient verbalizes no pain Problem: Safety Goal: Patient will be [...] Evaluation of progress towards goal: patient remains injury free at this time preventative measure in place. Colonoscopy completed today with removal of 3 polyps and endoscopic findings of mucosal ulcerations and erythema in the rectum and rectosigmoid junction. Biopsies were taken to rule out ischemic colitis. Recommend antibiotics for 7 days. Recommend laxatives and avoiding constipation. Will arrange for outpatient follow-up in the GI clinic. No further recommendations from GI. We will sign off. Please call with questions. Walker Castillo MD Gastroenterology Fellow [place] [facility] 06/14/23 4:49 PM Patient Instructions after a Colonoscopy with Biopsy/PolypectomyPatient: Ellen Chan Date: June 134Attending MD: ОЛЕГ LONG MD1. Do Not eat or drink anything for 1 hour. Try sips of water first. If tolerated, consume a soft, low fiber diet for 1-2 days or follow any special diet recommended by your physician.2. Do not drive, operate machinery, make critical decisions, or do activities that require coordination or balance for 24 hours.3. Because air was put into your colon during the procedure, expelling large amounts of air from your rectum is normal.4. You may not have a bowel movement for 1-3 days because of the colonoscopy prep. This is normal.5. Do not take any products containing aspirin for 10 days.6. Go directly to the emergency room if you notice any of the following: Chills and/or fever over 101 Persistent vomiting Severe abdominal pain, other than gas cramps Severe chest pain Black, tarry stools Any bleeding - exceeding one [facility] doctor recommends these additional instructions:Resume your regular diet. We are waiting for your pathology results.Your impressions for this procedure:- Preparation of the colon was fair. - Two 4 mm polyps in the ascending colon, removed with a cold snare. Resected and retrieved. - One 5 mm polyp in the transverse colon, removed with a cold snare. Resected and retrieved. - Mucosal ulceration with surrounding erythema at the rectum and the rectosigmoid junction. Biopsied rule out ischemic colitis. - Diverticulosis in the sigmoid colon.If you have any questions regarding the above instructions, please call the GI Lab. Nurse Signature Patient/De signated Responsible Alliance Party SignatureDr. Олег LONG MD06/14/2023 3:00:48 PMThis report has been signed electronically. Images from the original note were not included. [facility]ascular [place] VASCULAR SURGERY 78 y.o. female was admitted on 06/13/2023 with a right common iliac artery aneurysm for which Vascular Surgery was consulted. Vascular Surgery will sign off at this time. Please do not hesitate to call with any questions or concerns. Follow-up: Dr. Hyde 07/31 @ 8:30 in [place] Aakash Friedman MD Vascular Surgery Resident, PGY-1 06/14/2023 Problem: Pain Goal: Patient goal is pain [...] Evaluation of progress towards goal: Pt has PRN pain meds available during shift, will continue to monitor. Problem: Safety Goal: Patient [...] Note: Evaluation of progress towards goal: Pt environment safe and items within reach during shift. Problem: Infection Goal: Absence of infection during [...] entry representative in use of appropriate isolation precautions for identified infection/symptoms 8. Provide and discuss with patient/patient data entry representative on educational MDRO sheet 9. Encourage and monitor nutritional status daily and consult professional fighter if indicated 10. Implement neutropenic guidelines as needed 11. Review exposure to history of communicable disease and recent travel history on admission 12. Encourage annual influenza vaccine 13. Encourage pneumonia vaccine Outcome: Progressing Note: Evaluation of progress towards goal: Pt afebrile, vss, will continue to monitor during shift. Problem: Knowledge Deficit Goal: Patient/patient data entry representative demonstrates understanding of disease process, treatment plan, medications, and discharge instructions Description: INTERVENTIONS 1. Complete learning assessment and assess knowledge base 2. Provide teaching at level of understanding 3. Provide teaching via preferred learning method(s) Outcome: Progressing Note: Evaluation of progress towards goal: Discussed plan with pt and answered questions as needed during shift. Problem: Discharge Planning Goal: Discharge to post-acute [...] Progressing Note: Evaluation of progress towards goal: Discussed discharge with pt during shift and questions answered as needed. Problem: Potential for Compromised Skin Integrity Goal: [...] Note: Evaluation of progress towards goal: Pt skin dry and intact, wound assessed, will continue to monitor during shift. Goal: Patient's nutritional intake is adequate Description: [...] supplement as ordered 13. Collaborate with clinical professional fighter 14. Include patient/ patient's data entry representative in decisions related to nutrition Outcome: Progressing Note: Evaluation of progress towards goal: Pt nutritional needs assessed and provided during shift. Problem: Urinary Incontinence Goal: Perineal skin integrity [...] Note: Evaluation of progress towards goal: Perineal hygiene provided, and output monitored during shift. Problem: Moderate - High Risk Fall Score Description: Cordova Fall Score of =/> 25 or indicated by [facility] Assessment Goal: Patient should be free from fall Description: Interventions: 1. [place] to environment 2. Hourly rounds addressing the [...] how to maintain a safe environment during visitation times (notify nurse prior to leaving bedside) 25. Consider appropriateness of medical or non-medical records auditor 26. Set up voiding schedule as appropriate (every 2 hours) Outcome: Progressing Note: Evaluation of progress towards goal: Pt remains free from falls, bed alarm maintained as needed, will continue to monitor during shift. Speech Therapy CANCEL - Deferred Pt currently NPO for a colonoscopy today. Speech will continue to follow and complete evaluation as appropriate. Problem: Pain Goal: Patient goal is pain [...] Note: Evaluation of progress towards goal: Patients pain is well controlled with medications and alternative methods. Problem: Safety Goal: Patient will be injury [...] Evaluation of progress towards goal: Patient has no new injuries. Proper safe patient handling equipment is utilized to provide safe movements. Problem: Infection Goal: Absence of infection during [...] entry representative in use of appropriate isolation precautions for identified infection/symptoms 8. Provide and discuss with patient/patient data entry representative on educational MDRO sheet 9. Encourage and monitor nutritional status daily and consult professional fighter if indicated 10. Implement neutropenic guidelines as needed 11. Review exposure to history of communicable disease and recent travel history on admission 12. Encourage annual influenza vaccine 13. Encourage pneumonia vaccine Outcome: Progressing Note: Evaluation of progress towards goal: Patient has no new signs or symptoms of infection. Standard precautions are used by staff to prevent the spread of infection. Patients vital signs are within normal limits. Problem: Potential for Compromised Skin Integrity Goal: [...] Note: Evaluation of progress towards goal: Skin assessments were performed, patient was kept clean and dry throughout the shift, lotions, creams, and powders were applied as needed. Problem: Moderate - High Risk Fall Score Description: Cordova Fall Score of =/> 25 or indicated by [facility] Assessment Goal: Patient should be free from fall Description: Interventions: 1. [place] to environment 2. Hourly rounds addressing the [...] how to maintain a safe environment during visitation times (notify nurse prior to leaving bedside) 25. Consider appropriateness of medical or non-medical records auditor 26. Set up voiding schedule as appropriate (every 2 hours) Outcome: Progressing Note: Evaluation of progress towards goal: Patient has had no new falls. Patient is oriented to their environment, SPH equipment is available, DISCHARGE PLANNING NOTE Evaluation HELMET COVERER met with pt and her family at bedside, introduced self and explained role. Pt admitted with Acute lower GI bleeding [K92.2] . Past Medical History: Diagnosis Date AAA (abdominal aortic aneurysm) ([facility]) was surgically taken care of 09/2018 GERD (gastroesophageal reflux disease) Hypertension Upper respiratory infection 05/2019 Visual impairment glasses Pt's granddaughter Roula is at the bedside and is pt's DPOA. Roula and family all agree that pt will be returning to [facility] at discharge where she has been staying since she had a CVA. Patient does not endorse any financial concerns. Patient denies need for food/prescription medication assistance resources. Pt denies use of nicotine, ETOH nor drugs. Patient's pcp is NITHYA MALLOY MD PCP and pharmacy verified and updated. PCP was added to the follow up providers so pcp will receive summary of care at discharge. HELMET COVERER explained the importance of close follow up stating need for follow up in 1-2 weeks. Patient verbalized understanding and states she will follow up as indicated. Patient denies any further needs at this time. HELMET COVERER will continue to monitor should any needs arise. - GAURAV Astorga 06/13/23 4:01 PM DISCHARGE PLANNING NOTE Referral sent to [facility] (P# ; F# ) Speech Therapy Bedside Swallow/ Feeding Evaluation Impressions Oral Dysphagia: Minimal, Mild Pharyngeal Dysphagia Suspected: Yes Recommendations Diet Level: NPO Liquid Level: No liquids Medications: In applesauce/puree Referrals: VFSS Discharge Recommendations: (continued speech services) Plan Frequency: 1-2days/week Duration: until discharge Treatments/Modalities: Safety strategies, Pharyngeal strengthening, Base of tongue retraction, Gurjit maneuver, Super/supra glottic swallow, Dang maneuver Need for skilled Speech Language Pathology Services to address deficits in feeding/swallowing due to a status decline resulting from acute lower GI bleeding. Recommended VFSS to determine safety of swallow. Please place order. Prognosis Services: Skilled PLANNER services to address above deficits Prognosis/Potential: Good Considerations: Age, Ability to learn, Previous level of function Assessment Baseline Assessment Prior BSSE/VFSS: BSSE: yes Temperature Spikes Noted: No Respiratory Status: Room Air Behavior/Cognition: Cooperative Dentition: Adequate Vision: Functional for self-feeding Patient Positioning: Upright in bed Laryngectomy: No Ability to Control Secretions: Yes Allergies Marked As Reviewed: Complete Oral/Motor Overall Oral/Motor Status: Within Functional Limits Intelligibility: Intelligible Breath Support: Adequate for speech Dentition: Adequate Xerostomia: No Hearing: Within Functional Limits Consistencies Assessed: Yes Level 0 Thin Presentation: Cup, Straw Oral: Suspect premature spillage Pharyngeal: Wet/gurgly vocal quality, Decreased laryngeal elevation Level 4 Pureed Presentation: Spoon Oral: Within Functional Limits Pharyngeal: Decreased laryngeal elevation Regular Presentation: Assist feed Oral: Decreased mastication, Oral stasis/pocketing Pharyngeal: Decreased laryngeal elevation Pain Assessment Pain Assessment: No/denies pain Plan Diagnosis Code Swallowing: R13.12 Dysphagia, oropharyngeal phase Speech Therapy Care Plan Speech Therapy Care Plan (Active) Template: ST - Dysphagia Problem: Swallowing Dates: Start: 06/13/23 Disciplines: PLANNER Goal: LTG: Patient will tolerate least restrictive diet recommended by PLANNER without signs and symptoms of aspiration 90% of the time Dates: Start: 06/13/23 Expected End: 07/14/23 Disciplines: PLANNER Goal: STG: Patient will complete safety strategies independently during PO intake 90% of the time Dates: Start: 06/13/23 Expected End: 07/14/23 Disciplines: PLANNER Goal: STG: Patient will complete oral/ pharyngeal strengthening program with resistance with 90% accuracy with minimal cueing Dates: Start: 06/13/23 Expected End: 07/14/23 Disciplines: PLANNER Speech Therapy Care Plan (Resolved) There are no resolved problems. Principal Problem: Acute lower GI bleeding [facility] Formatting of t his note might be different from the original. DISCHARGE PLANNING NOTE Community Referral Form/medication reconciliation attached to [facility]. Spoke with Jody, patient is all good to admit. BLS transport is scheduled for 3pm. Patient has been updated. RN notified. D/C packet complete, report number on front of packet. - mAita James RN 06/16/23 12:40 PM [facility] 06-16-2023 Hospital course Narrative Images from the original note were not included. 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 #Dementia #Hypertension #Abdominal aortic aneurysm #Hyperlipidemia Discharge Disposition Nursing Home Facility-Medicare Cert Code Status at Discharge: Modified code Active Issues Requiring Follow-up Issue: Hospitalization Responsible Individual: PCP What is Needed: Follow-up Follow-up Appointments Arranged: Yes Issue: Arterial aneurysms Responsible Individual: Vascular surgery What is Needed: Follow-up Follow-up Appointments Arranged: Yes Issue: GI bleed Responsible Individual: Manager Facility What is Needed: Follow Follow-up Appointments Arranged: Yes Issue: Right knee bursitis Responsible Individual: Orthopedic surgery What is Needed: Establishment of care, ambulatory referral made Outpatient Follow-Up Future Appointments Date Time Provider Department Center 08/01/2023 8:30 AM Leon Hyde MD [facility] None Referrals and Follow-ups to Schedule Ambulatory referral to Orthopedic Surgery First Available Provider: Yes Test Results Pending at Discharge Pending Labs Order Current Status Surgical Pathology Collected (06/14/23 1441) DETAILS OF HOSPITAL STAY Presenting Problem/History of Present Illness Acute lower GI bleeding [K92.2] Ellen Chan is a 78 y.o. female wit [facility] who was recently discharged from [facility] 04/16/23 after thalamic intracranial hemorrhage to LTC facility. She initially presented to [place] on 06/10 due to care home staff concerns that she was having blood in her stool. CT abdomen at [facility] revealed active arterial extravasation within the rectum and findings concerning for ischemic colitis. Hemoglobin was between 11-13, not clear if she received any transfusion there. She was transferred to [facility] for vascular, IR, general surgery evaluation. On my evaluation patient is oriented x2, which is her baseline. She denies any abdominal pain, endorses mild nausea and thinks that she may have had blood in her stool but does not remember much. Denies dizziness lightheadedness, shortness of breath, palpitations. Vitals on admission are stable within normal limits. Hospital Course In terms of patient's hospital course, patient was evaluated by Gastroenterology team and underwent colonoscopy on 06/14 with removal of 3 polyps and findings of mucosal ulcerations and erythema in the rectum and rectosigmoid junction. Patients hemoglobin remained stable throughout her hospital course. Patient was continued on Rocephin and Flagyl for empiric antibiotic coverage while inpatient however switched to Augmentin for 3 days upon discharge to complete 7 total days of antibiotics. Patient is to follow-up with gastroenterology upon discharge. Regarding her dysphagia, speech evaluated with video swallow study and deemed patient level 6 diet soft and bite size with level 0 thin liquids. Peg tube is also in place in case of another route of nutrition, however patient's family reports patient has not used PEG tube in several weeks. As for patient's right common iliac artery aneurysm sac dissection on the right common femoral artery seen on CT angiogram, vascular surgery was consulted and recommendation was made to start aspirin and Plavix on discharge. Gastroenterology recommended starting aspirin and Plavix 72 hours post procedure hence patient will be resumed on 06/16. Patient is to follow-up with Dr. Hyde 07/31 in [place] for further evaluation. Today, patient is alert, awake, at baseline mentation , in NAD, tolerating diet well, with no acute concerns or complaints. Aware and agreeable to plan for discharge to nursing facility. Patient is medically ready and cleared for discharge with appropriate follow ups in place. Operative Procedures Performed Procedure(s): COLONOSCOPY POLYPECTOMY Physical Exam at Discharge Discharge Condition: stable Pulse: 76 Resp: 17 BP: (!) 130/95 Temp: 36.6 C (97.8 F) Weight: 64.5 kg (142 lb 3.2 oz) Physical Exam Constitutional: General: She is not in acute distress. Appearance: Normal appearance. HENT: Head: Normocephalic and atraumatic. Mouth/Throat: Mouth: Mucous membranes are moist. Eyes: Extraocular Movements: Extraocular movements intact. Cardiovascular: Rate and Rhythm: Normal rate and regular rhythm. Pulses: Normal pulses. Heart sounds: Normal heart sounds. Pulmonary: Effort: Pulmonary effort is normal. No respiratory distress. Breath sounds: Normal breath sounds. Abdominal: General: There is no distension. Palpations: Abdomen is soft. Tenderness: There is no abdominal tenderness. There is no guarding. Musculoskeletal: General: Swelling (Right knee swelling, no warmth, redness, tenderness) present. Normal range of motion. Cervical back: Normal range of motion. Right lower leg: No edema. Left lower leg: No edema. Skin: General: Skin is warm. Neurological: General: No focal deficit present. Mental Status: She is alert and oriented to person, place, and time. Psychiatric: Mood and Affect: Mood normal. Behavior: Behavior normal. Labs Results from last 7 days Lab Units 06/16/23 0534 06/15/23 2156 06/15/23 1331 06/15/23 0542 06/14/23 1638 06/14/23 0604 WBC X10E9/L 6.1 -- -- 6.6 -- 7.8 HEMOGLOBIN g/dL 11.9 12.6 11.9 11.1* < > 11.2* HEMATOCRIT % 35.2 37.2 34.7* 32.8* < > 33.5* PLATELETS X10E9/L 79* -- -- 73* -- 62* < > = values in this interval not displayed. Results from last 7 days Lab Units 06/16/23 0534 06/15/23 0542 06/14/23 0604 INR 1.3* 1.2* 1.2* Results from last 7 days Lab Units 06/16/23 0534 06/15/23 1829 06/15/23 1037 06/15/23 0542 06/14/23 1638 06/14/23 0604 06/14/23 0016 06/13/23 1619 06/13/23 0414 SODIUM mmol/L 141 -- -- 136 -- 140 -- -- 144 POTASSIUM mmol/L 3.9 3.8 3.5 3.7 < > 3.6 < > 3.6 3.1* CHLORIDE mmol/L 106 -- -- 101 -- 106 -- -- 110* CO2 mmol/L 27 -- -- 25 -- 22 -- -- 25 BUN mg/dL 5 -- -- 5 -- 8 -- -- 17 CREATININE mg/dL 0.45 -- -- 0.43 -- 0.33* -- -- 0.53 CALCIUM mg/dL 8.8 -- -- 8.4* -- 8.1* -- -- 8.9 PHOSPHORUS mg/dL -- -- -- -- -- -- -- -- 2.6 MAGNESIUM mg/dL -- -- -- -- -- -- -- 2.1 1.4* < > = values in this interval not displayed. Results from last 7 days Lab Units 06/13/23 0414 ALBUMIN g/dL 3.1* TOTAL PROTEIN g/dL 5.6* ALT U/L 6 AST U/L 11 ALK PHOS U/L 45 Results from last 7 days Lab Units 06/16/23 0534 06/15/23 0732 06/15/23 0542 BEDSIDE GLUCOSE mg/dL -- 104* -- GLUCOSE mg/dL 80 -- 99 Lab Results Component Value Date HGBA1C 5.5 04/01/2023 No results found for: WBCU , SPECIFICGRA , LEUKOCYTE , NITRITEN , PHNUR , PROTEINNUR , KETONESNUR , UROBILINOGEN , BLOODHGBNU Imaging Vas art doppler lwr bilat mult lev/PVR Result Date: 06/14/2023 Right: Essentially normal PVR waveform contour at the ankle level. PT NATASHA is 1.15; DP NATASHA is 1.17. Multiphasic with diastolic flow reversal common femoral , popliteal, PT and DP , CW Doppler waveforms. Left: Essentially normal PVR waveform contour at the ankle level. PT NATASHA is 1.08; DP NATASHA is 1.12. Multiphasic with diastolic flow reversal common femoral , popliteal, PT and DP , CW Doppler waveforms. Conclusions: BILATERAL: Normal lower extremity arterial physiological examination at rest. Recommendations: Any questions prior to finalization, please call the reading physician during normal business hours at the phone number beside their name. Colonoscopy Report Result Date: 06/14/2023 This order has been auto-finalized for image and report archival in PACs. *For full report details, please reach out to your physician. This image is visible to you in MyChart.* CT angiogram abdomen and pelvis Addendum Date: 06/13/2023 *ADDENDUM* ADDENDUM: 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 There is calcification along the wall and intimal flap and there is no surrounding fluid, blood, inflammatory change or irregular intraluminal thrombus There is a similar short dissection in the left superficial femoral artery which looks unchanged and with similar characteristics aside from no significant calcification Finalized by Adriel Méndez MD on 06/13/2023 12:50 PM Result Date: 06/13/2023 HISTORY and Tech Notes: Mesenteric ischemia, acute Follow-up colitis PROCEDURE: CT angiogram abdomen pelvis Study is done with IV contrast Arterial phase and venous phase imaging Two-dimensional source data images submitted in combination with three-dimensional and/or maximum intensity projections and reconstructions Automated exposure control was utilized COMPARISON: June 10 FINDINGS: There is significant tortuosity of the distal descending thoracic aorta and the abdominal aorta There is an endovascular graft stent in the descending thoracic aorta and also in the abdominal aorta There is no visible endoleak or periaortic hematoma The endograft stents extend into the common iliac arteries and right external iliac artery 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 There is only mild stenosis at the origin The SMA enhances There is not significant stenosis at the origin There is mild irregularity, thrombus and narrowing of the proximal to mid segment without occlusion There is moderate calcification multifocal stenosis in the renal arteries On venous phase imaging the SMV enhances There is mild narrowing due to the compression of the abdominal aortic aneurysm in the mid abdomen The splenic vein enhances The portal vein and branches enhance The hepatic veins enhance The hepatic veins enhance UPPER ABDOMEN No splenomegaly. Granuloma changes Left greater than right renal cysts There is a complex lesion in the right kidney with a dense or enhancing component measuring around 2 cm. Follow-up surveillance imaging in 6 months suggested No peripancreatic fluid collections. There is pancreatic atrophy There is suggestion of a tiny cyst in the pancreatic body There is no visible ductal dilatation There are not pancreatic calcifications No suspicious liver mass. No significant bile duct dilatation or perihepatic fluid GB removed No fluid collection Slight prominence of the CBD may be physiologic after cholecystectomy assuming no jaundice or abnormal bilirubin levels No suspicious adrenal mass seen No large hiatal hernia There is a PEG tube in place without visible complication of gastric wall looks prominent but it may be exaggerated by lack of distention PELVIS No hydronephrosis . Lenz in place Nondilated bladder There is some dense material in the dependent portion of the bladder No sign of a bowel obstruction. There is persistent severe bowel wall thickening in the rectum and rectosigmoid region with adjacent fluid and fat stranding and hyperemia, similar to the previous exam The rest of the large and small bowel do not look affected No discrete abscess is seen at this point . No retroperitoneal bleed or suspicious adenopathy. No sign to suggest acute appendicitis. LUNG BASE EVALUATION no basilar consolidation or significant effusion. . BONE RECONSTRUCTIONS Chronic appearing deformity at L4 No aggressive bone destruction. . IMPRESSION: Mild irregularity and stenosis along the proximal and mid SMA without occlusion Dilated tortuous thoracic and abdominal aorta with endovascular graft as detailed above. 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 No significant stenosis or irregular thrombus Hepatic and portal veins look patent. There is some mass effect on the SMV due to the abdominal aortic aneurysm sac causing some narrowing and compression of the lumen without visible thrombus - Severe inflammatory change within and around the rectum and rectosigmoid junction with adjacent fat stranding and fluid accumulation but no discrete abscess or bowel obstruction at this point Follow-up suggested prove clearing and normalization and exclude underlying neoplasm or other pathology Complex lesion in the right kidney with a 2 cm dense hemorrhagic or enhancing nodular component adjacent to the more simple cystic component superior to that. Follow-up surveillance imaging within 6 months suggested in attempt to prove stability or benign imaging characteristics. MRI might be useful but may be subject to extensive artifact from the endograft Slight prominence of the CBD thought likely to be physiologic after cholecystectomy in the absence of abnormal bilirubin levels or jaundice . . All CT scans at this facility use dose modulation, iterative reconstruction, and/or weight based dosing when appropriate to reduce radiation dose to as low as reasonably achievable. Finalized by Adriel Méndez MD on 06/13/2023 11:52 AM Last Echo Echo complete W/O contrast Result Date: 04/03/2023 Left Ventricle: Systolic function is normal with an ejection fraction of 60-65%. Mitral Valve: There is mild regurgitation. There is no evidence of mitral valve stenosis. Cultures Microbiology Results No results found for the last 168 hours. Medication List START taking these medications Instructions Last Dose Given Next Dose Due amoxicillin-pot clavulanate 875-125 mg per tablet Commonly known as: AUGMENTIN Take 1 tablet by mouth in the morning and 1 tablet before bedtime. Do all this for 3 days. aspirin 81 mg Start taking on: June 17, 2023 Take 1 tablet (81 mg total) by mouth in the morning. clopidogreL 75 mg tablet Commonly known as: PLAVIX Start taking on: June 17, 2023 Take 1 tablet (75 mg total) by mouth in the morning. CONTINUE taking these medications Instructions Last Dose Given Next Dose Due amLODIPine 10 mg tablet Commonly known as: NORVASC Take 1 tablet (10 mg total) by mouth in the morning. citalopram 20 mg tablet Commonly known as: CeleXA Take 1 tablet (20 mg total) by mouth in the morning. lisinopriL 40 mg tablet Commonly known as: PRINIVIL,ZESTRIL Take 1 tablet (40 mg total) by mouth in the morning and 1 tablet (40 mg total) before bedtime. melatonin tablet Commonly known as: CIRCADIN Take 1 tablet (3 mg total) by mouth nightly. metoprolol tartrate 25 mg tablet Commonly known as: LOPRESSOR Take 1 tablet (25 mg total) by mouth in the morning and 1 tablet (25 mg total) before bedtime. Hold if SBP <100 . pantoprazole 40 mg EC tablet Commonly known [...] them with you. STOP taking these medications carvediloL 25 mg tablet Commonly known as: COREG ASK your doctor about these medications Instructions [...] Your Medications These medications were sent to [facility]/pharmacy #[id number] [place], [place] - [address] [facility] [address] [address] amoxicillin-pot clavulanate 875-125 mg per tablet clopidogreL 75 mg tablet Information about where to get these medications is not yet available Ask your nurse or doctor about these medications aspirin 81 mg Gabby Dickson MD PGY-1 Internal Medicine Resident [facility] Associated attestation - Jude Marti MD - 06/16/2023 3:10 PM EDT ATTENDING ATTESTATION I personally examined the patient on the day of discharge. I confirm the discharge note and agree with the assessment and plan. Please note there may also be a progress note from the day of discharge. Comments: None - JUDE MARTI MD 06/16/23 3:09 PM documented in this encounter [facility] QPD 06-16-2023 Progress note Formatting of t his note might be different from the original. DISCHARGE PLANNING NOTE BLS transport via [facility]N to [facility] 06.16.23 at 3:00pm. Confirmed in [facility] 06-16-2023 Progress note Formatting of t his note is different from the original. Physical Therapy Evaluation Discharge Recommendations PT Recommendations: Nursing Home Facility SNF/ECF Comments: To improve safety awareness and functional independence prior to safe discharge 6 Clicks: Basic Mobility Turning from your back to your side while in a flat bed without using bed rails?: A lot Moving from lying on your back to sitting on side of flat bed without using bed rails?: Total Moving to and from bed to a chair (including w/c)?: Total Standing up from a chair using your arms (e.g. w/c or bedside chair)?: Total To walk in hospital room?: Total Climbing 3-5 steps with a railing?: Total Scoring 6 Clicks: Basic Mobility Raw Score: 7 CMS G Code Modifier: CM Therapy Plan Need for skilled Physical Therapy to address deficits in functional mobility due to a status decline resulting from recent admit on 06/13/23 as transfer from [facility] for vascular, IR and general surgery consult. 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 06/13 colonoscopy showed diffuse mucosal ulceration of rectum and sigmoid colon with no active bleeding. No surgical plans per general surgery. Biopsies were taken and plan 7 days of antibiotics. GI signed off DX: rectal bleed secondary to ischemic colitis, hypokalemia, and R common iliac artery aneurysm. Per EMR, pt has h/o dementia. Past Medical History: Diagnosis Date AAA (abdominal aortic aneurysm) ([facility]) was surgically taken care of 09/2018 GERD (gastroesophageal reflux disease) Hypertension Upper respiratory infection 05/2019 Visual impairment glasses Past Surgical History: Procedure Laterality Date BREAST BIOPSY BREAST SURGERY 1989 BREAST BX CARDIAC SURGERY STENT 2018 CARDIAC SURGERY LEFT VENTRICLE STENT 2018 COLONOSCOPY POLYPECTOMY Left Lateral 06/14/2023 Performed by Олег Long MD at [facility] DILATION AND CURETTAGE, DIAGNOSTIC / THERAPEUTIC 1986 ESOPHAGOGASTRODUODENOSCOPY INSERTION PEG TUBE N/A 04/11/2023 Performed by Dae Bo MD at [facility] HYSTERECTOMY KNEE ARTHROSCOPY Left KNEE ARTHROSCOPY Left REMOVE METAL 2014 LAPAROSCOPIC CHOLECYSTECTOMY N/A 05/26/2019 Performed by Caro Pollard DO at [facility] ORIF WRIST FRACTURE Right Pins PT Treatment/Interventions: Functional transfer training, LE strengthening/ROM, Endurance training, Patient/family training, Equipment eval/education, Balance, Bed mobility, Compensatory technique education, Coordination activities, Functional activities PT Frequency: 4-5days/week PT Duration: LOS Patient Response to Treatment: Tolerated evaluation without adverse reaction Assessment Patient Assessment Therapy Problem List: Decreased balance, Decreased endurance, Decreased gross motor, Decreased mobility, Decreased LE strength Patient Response to Treatment: Tolerated evaluation without adverse reaction Mood/Affect: Appropriate for circumstances Rehab Prognosis: Good, With continued PT status post acute discharge Visit RN Communication: Yes Medical Record Reviewed: Yes PT Type of Visit: Evaluation Precautions Activity: early mobility: pass Equipment: maxi sophia with repositioning sling, resting hand splint to LUE, podus boot to L foot, lenz, PEG tube Telemetry/[place] Machine Operator: Yes Oxygen Used: room air Other: high fall risk, h/o CVA with right hemiplegia and aphasia s/p recent L ICH on 06/02/22, bed/chair alarm Pain Assessment Pain Assessment: No/denies pain (reported no pain but noted grimacing with PROM of RUE) Home Living Type of Home: Facility Other : Prior to [facility] on Mar pt was IND alone at home but since pt has been at facility and unable to walk Prior Function Level of Mobility: Needs assistance with ADLs or functional transfers or gait Homemaking Assistance: Needs assistance Other: pt has required TA since Stroke in Mar. ADL / IADL Hand Dominance: Right Hearing / Speech / Vision Hearing: Within Functional Limits Speech: Global aphasia, Receptive aphasia, Expressive aphasia Current Vision: Does not wear glasses (no visual changes noted) Cognition Overall Cognitive Status: Exceptions to Within Functional Limits Arousal/Alertness: Delayed responses to stimuli Attention Span: Attends with cues to redirect Memory: Decreased short term memory Orientation Level: Oriented to person, Oriented to age, Disoriented to place, Disoriented to time, Disoriented to month Following Commands: Follows one step commands with increased time, Follows one step commands with repetition Safety Judgment: Decreased awareness of need for assistance, Decreased awareness of need for safety Awareness of Errors: Assistance required to identify errors made, Assistance required to correct errors made Insight of Deficits: Decreased awareness of deficits Problem Solving: Nonfunctional Interfering Components: Processing speed, Working memory Bed Mobility Rolling: Mod assist, Right, Max assist, Left Other: Rolling to either side for brief change and repositioning. nely for transfer to recliner Transfers Bed to Chair: Total assist (nely lift) Gait Other: ABDULLAHI Balance Sitting Balance: Static: Poor Other: pt unable to without assist lean forward in recliner RLE Assessment: (grossly :1/5) LLE Assessment: (grossly: 3-/5) Activity Tolerance Endurance: Tolerates <30 minutes activity WITHOUT vital sign changes Other: limited d/t weakness and fatigue Plan Physical Therapy Care Plan Physical Therapy Care Plan (Active) Template: PT - Physical Therapy Problem: Activity Tolerance Dates: Start: 06/16/23 Disciplines: PT Goal: Tolerate > 30 minutes of activity WITH rest breaks Dates: Start: 06/16/23 Expected End: 07/26/23 Description: Goal Description: Disciplines: PT Problem: Bed Mobility Dates: Start: 06/16/23 Disciplines: PT Goal: Patient will perform bed mobility with Minimum Assist Dates: Start: 06/16/23 Expected End: 07/26/23 Description: Goal Description: with proper BUE placement and sequencing Disciplines: PT Problem: Sitting Balance Dates: Start: 06/16/23 Disciplines: PT Goal: Improve balance to good Dates: Start: 06/16/23 Expected End: 07/26/23 Description: Static/Dynamic to reduce risk of falls with all functional tasks Disciplines: PT Problem: Strength Dates: Start: 06/16/23 Disciplines: PT Goal: Improve strength Dates: Start: 06/16/23 Expected End: 07/26/23 Description: Of extremity/ location: LLE strength to WFL and RLE strength to 3+/5 To facilitate: with proper gait pattern and safety awareness Disciplines: PT Physical Therapy Care Plan (Resolved) There are no resolved problems. Principal Problem: Acute lower GI bleeding Active Problems: Acute blood loss anemia History of hemorrhagic cerebrovascular accident (CVA) with residual deficit Essential hypertension Ischemic colitis ([facility]) Dementia ([facility]) History of AAA (abdominal aortic aneurysm) repair Right renal mass [facility] 06-16-2023 Progress note Formatting of t his note is different from the original. Occupational Therapy Evaluation Discharge Recommendations OT Recommendations : Nursing Home Facility SNF/ECF Comments: d/t weakness, balance and cognitive deficits affecting safety and independence with ADLs; pt requires 29/10 care and total assist with mobility/transfers Patient admitted on 06/12 as a transfer from [facility] for vascular, IR, and general surgery consult. Pt had presented to [facility] on 06/10 with staff report of blood in stool. CT of abdomen at [facility] showed concern for ischemic colitis. 06/12 general surgery consulted and approved CLD and deferred to GI. 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 06/13 s/p colonoscopy showed diffuse mucosal ulceration of rectum and sigmoid colon with no active bleeding. No surgical plans per general surgery. Biopsies were taken and plan 7 days of antibiotics. GI signed off. DX: rectal bleed secondary to ischemic colitis, hypokalemia, and R common iliac artery aneurysm. Per EMR, pt has h/o dementia. 6 Clicks: Daily Activity Putting on and taking off regular lower body clothing?: Total Bathing (including washing, rinsing, drying)?: A lot Toileting, which includes using toilet, bedpan or urinal?: Total Putting on and taking off regular upper body clothing?: A lot Taking care of personal grooming such as brushing teeth?: A lot Eating meals?: A little Scoring Daily Activity Raw Score: 11 [facility] G Code Modifier: CL No chief complaint on file. Past Medical History: Diagnosis Date AAA (abdominal aortic aneurysm) ([facility]) was surgically taken care of 09/2018 GERD (gastroesophageal reflux disease) Hypertension Upper respiratory infection 05/2019 Visual impairment glasses Past Surgical History: Procedure Laterality Date BREAST BIOPSY BREAST SURGERY 1989 BREAST BX CARDIAC SURGERY STENT 2018 CARDIAC SURGERY LEFT VENTRICLE STENT 2018 COLONOSCOPY POLYPECTOMY Left Lateral 06/14/2023 Performed by Олег Long MD at [facility] DILATION AND CURETTAGE, DIAGNOSTIC / THERAPEUTIC 1986 ESOPHAGOGASTRODUODENOSCOPY INSERTION PEG TUBE N/A 04/11/2023 Performed by Dae Bo MD at [facility] HYSTERECTOMY KNEE ARTHROSCOPY Left KNEE ARTHROSCOPY Left REMOVE METAL 2014 LAPAROSCOPIC CHOLECYSTECTOMY N/A 05/26/2019 Performed by Caro Pollard DO at [facility] ORIF WRIST FRACTURE Right Pins Therapy Plan Need for skilled Occupational Therapy to address deficits in ADL independence and functional mobility due to a status decline resulting from generalized weakness. OT Treatment/Interventions: ADL retraining, Functional transfer training, UE strengthening/ROM, Patient/family training, Equipment eval/education, Endurance training, Cognitive reorientation, Balance, Home management, Bed mobility, Compensatory technique education, Fine motor activities, Coordination activities, Functional activities, Neuromuscular reeducation OT Frequency: 4-5days/week OT Duration: until discharge Assessment Patient Assessment Therapy Problem List: Decreased balance, Decreased ADL status, Decreased cognition, Decreased endurance, Decreased high-level ADLs, Decreased mobility, Decreased safe judgement during ADL, Decreased fine motor, Decreased gross motor, Decreased self-care trans, Decreased UE ROM, Decreased UE strength, Non-functional RUE Patient Response to Treatment: Tolerated evaluation without adverse reaction Mood/Affect: Appropriate for circumstances Rehab Prognosis: Good, With continued OT status post acute discharge Visit RN Communication: Yes Medical Record Reviewed: Yes OT Type of Visit: Evaluation Precautions Activity: early mobility - pass Equipment: maxi sophia with repositioning sling, resting hand splint to LUE, podus boot to L foot, lenz, PEG Telemetry/[place] Machine Operator: Yes Oxygen Used: room air Other: high fall risk, h/o aphasia and R hemiplegia s/p recent L ICH 06/02/22, bed/chair alarm Pain Assessment Pain Assessment: No/denies pain (pt denies pain but has grimacing with PROM of RUE) Home Living Type of Home: Facility Other : prior to March 2023 pt was living alone and independent but s/p stroke pt has been at SNF and unable to walk Prior Function Level of Mobility: Needs assistance with ADLs or functional transfers or gait (assist with all care since March) Homemaking Assistance: Needs assistance (assist with all care since March) ADL / IADL Hand Dominance: Right Where Assessed: Supine, bed, Chair Eating Assistance: Min assist (provided patient with setup of food) Grooming Assistance: Max assist Bathing/Showering Assistance: Max assist Toilet/Commode Assistance: Max assist UE Dressing Assistance: Max assist LE Dressing Assistance: Total assist Footwear Assistance: Total assist Hearing / Speech / Vision Hearing: Within Functional Limits Speech: Other (Comment) (pt appears to have some expresive/receptive aphasia) Current Vision: Does not wear glasses (pt denies any vision changes and is able to read clock on wall) Cognition Overall Cognitive Status: Exceptions to Within Functional Limits Arousal/Alertness: Delayed responses to stimuli Attention Span: Attends with cues to redirect Memory: Decreased short term memory Orientation Level: Oriented to person, Oriented to age, Disoriented to place, Disoriented to time, Disoriented to month (pt did know it was Saturday) Following Commands: Follows one step commands with increased time, Follows one step commands with repetition Safety Judgment: Decreased awareness of need for assistance, Decreased awareness of need for safety Awareness of Errors: Assistance required to identify errors made, Assistance required to correct errors made Insight of Deficits: Decreased awareness of deficits Problem Solving: Nonfunctional Interfering Components: Processing speed, Working memory Bed Mobility Rolling: Mod assist, Right, Max assist, Left Other: Pt rolled side to side for brief change and repositioning with assist provided for hand and foot placement, pt unable to use R side of body to assist, remained in chair with call light in reach and chair alarm on Transfers Sit to Stand: Unable to assess Bed to Chair: Total assist (maxi sophia) Gait Gait Assistance: Unable to assess Balance Balance Evaluation: Exceptions to Functional Limits Sitting Balance: Static: Poor Other: attempted to have patient sit forward in chair to reposition self and place pillow behind head but pt pushes back into extension with attempt RUE Assessment: Exceptions to WFL (1/5 with shoulder shrug and shoulder extension, otherwise grossly 0/5) LUE Assessment: Within Functional Limits Activity Tolerance Endurance: Tolerates <30 minutes activity WITHOUT vital sign changes Plan Occupational Therapy Care Plan Occupational Therapy Care Plan (Active) Template: OT - Occupational Therapy Problem: Activity Tolerance Dates: Start: 06/16/23 Disciplines: OT Goal: Tolerate > 30 minutes of activity WITH rest breaks Dates: Start: 06/16/23 Expected End: 07/07/23 Description: Goal Description: Disciplines: OT Problem: Bathing UB Dates: Start: 06/16/23 Disciplines: OT Goal: Patient will perform bathing UB with Minimum Assist Dates: Start: 06/16/23 Expected End: 07/07/23 Description: Goal Description: Disciplines: OT Problem: Bed Mobility Dates: Start: 06/16/23 Disciplines: OT Goal: Patient will perform bed mobility with Modified [place] Dates: Start: 06/16/23 Expected End: 07/07/23 Description: Goal Description: Disciplines: OT Problem: Dressing UB Dates: Start: 06/16/23 Disciplines: OT Goal: Patient will perform dressing UB with Minimum Assist Dates: Start: 06/16/23 Expected End: 07/07/23 Description: Goal Description: Disciplines: OT Problem: Grooming Dates: Start: 06/16/23 Disciplines: OT Goal: Patient will perform grooming with Stand By Assist Dates: Start: 06/16/23 Expected End: 07/07/23 Description: Goal Description: Disciplines: OT Problem: ROM Dates: Start: 06/16/23 Disciplines: OT Goal: Improve ROM Dates: Start: 06/16/23 Expected End: 07/07/23 Description: Of extremity/ location: Pt will tolerate AAROM/PROM to RUE in all planes for 15 reps To facilitate: improved ROM to dec risk for contractures Disciplines: OT Problem: Sitting Balance Dates: Start: 06/16/23 Disciplines: OT Goal: Improve balance to good Dates: Start: 06/16/23 Expected End: 07/07/23 Description: Static Dynamic Disciplines: OT Problem: Strength Dates: Start: 06/16/23 Disciplines: OT Goal: Improve strength Dates: Start: 06/16/23 Expected End: 07/07/23 Description: Of extremity/ location: LUE to be 5/5 grossly To facilitate: independence with ADLs Disciplines: OT Problem: Toileting Dates: Start: 06/16/23 Disciplines: OT Goal: Patient will perform toileting with Moderate Assist Dates: Start: 06/16/23 Expected End: 07/07/23 Description: Goal Description: Disciplines: OT Problem: Transfers Dates: Start: 06/16/23 Disciplines: OT Goal: Patient will perform transfers with Moderate Assist Dates: Start: 06/16/23 Expected End: 07/07/23 Description: Goal Description: Disciplines: OT Occupational Therapy Care Plan (Resolved) There are no resolved problems. Principal Problem: Acute lower GI bleeding Active Problems: Acute blood loss anemia History of hemorrhagic cerebrovascular accident (CVA) with residual deficit Essential hypertension Ischemic colitis ([facility]) Dementia ([facility]) History of AAA (abdominal aortic aneurysm) repair Right renal mass [facility] 06-16-2023 Plan of care note Problem: Safety Goal: Patient will be injury [...] Note: Evaluation of progress towards goal: No falls/injuries. Safety maintained. Problem: Infection Goal: Absence of infection [...] entry representative in use of appropriate isolation precautions for identified infection/symptoms 8. Provide and discuss with patient/patient data entry representative on educational MDRO sheet 9. Encourage and monitor nutritional status daily and consult professional fighter if indicated 10. Implement neutropenic guidelines as needed 11. Review exposure to history of communicable disease and recent travel history on admission 12. Encourage annual influenza vaccine 13. Encourage pneumonia vaccine Outcome: Progressing Note: Evaluation of progress towards goal: IV ATBs continue. Afebrile. [facility] 06-15-2023 History of Present illness Narrative INTERNAL MEDICINE PROGRESS NOTE IMS-4 Today: 06/15/23 Admit Date: 06/13/2023 Length of Stay: 2 days SUBJECTIVE Subjective: Interval Hx: Patient seen and examined at bedside this morning. No acute overnight events. Patient is resting comfortably in his hemodynamically stable. Patient is alert, awake and able to answer simple questions and follow directions. Patient underwent colonoscopy yesterday with removal of 3 polyps and findings of mucosal ulcerations and erythema in the rectum and rectosigmoid junction. GI okay with resuming anticoagulation 72 hours after colonoscopy. Speech evaluation via video swallow study today, level 6 often by size with level 0 thin liquids. Subjective Chief Complaint: No chief complaint on file. HPI: Ellen Chan is a 78 y.o. female wit [facility] who was recently discharged from [facility] 04/16/23 after thalamic intracranial hemorrhage to LTC facility. She initially presented to [facility] on 06/10 due to care home staff concerns that she was having blood in her stool. CT abdomen at [facility] revealed active arterial extravasation within the rectum and findings concerning for ischemic colitis. Hemoglobin was between 11-13, not clear if she received any transfusion there. She was transferred to [facility] for vascular, IR, general surgery evaluation. On my evaluation patient is oriented x2, which is her baseline. She denies any abdominal pain, endorses mild nausea and thinks that she may have had blood in her stool but does not remember much. Denies dizziness lightheadedness, shortness of breath, palpitations. Vitals on admission are stable within normal limits. Allergies: Allergies Allergen Reactions Ciprofloxacin Headache Alendronate Bee Venom Protein (Honey Bee) feels like my eyes are spinning around Nvfcevuz-Qhytcrtvsja-Eeqqyyirx Oxycodone Headache I just don't want to take it Past Medical History: Past Medical History: Diagnosis Date AAA (abdominal aortic aneurysm) ([facility]) was surgically taken care of 09/2018 GERD (gastroesophageal reflux disease) Hypertension Upper respiratory infection 05/2019 Visual impairment glasses Past Surgical History: Past Surgical History: Procedure Laterality Date BREAST BIOPSY BREAST SURGERY 1989 BREAST BX CARDIAC SURGERY STENT 2018 CARDIAC SURGERY LEFT VENTRICLE STENT 2018 COLONOSCOPY POLYPECTOMY Left Lateral 06/14/2023 Performed by Олег Long MD at [facility] DILATION AND CURETTAGE, DIAGNOSTIC / THERAPEUTIC 1986 ESOPHAGOGASTRODUODENOSCOPY INSERTION PEG TUBE N/A 04/11/2023 Performed by Dae Bo MD at [facility] HYSTERECTOMY KNEE ARTHROSCOPY Left KNEE ARTHROSCOPY Left REMOVE METAL 2014 LAPAROSCOPIC CHOLECYSTECTOMY N/A 05/26/2019 Performed by Caro Pollard DO at [facility] ORIF WRIST FRACTURE Right Pins Family History: History reviewed. No pertinent family history. Current Medications: Scheduled Meds: amLODIPine, 10 mg, oral, Daily cefTRIAXone (ROCEPHIN) IV, 1,000 mg, intravenous, Q24H lisinopriL, 40 mg, oral, BID metoprolol tartrate, 25 mg, oral, BID metroNIDAZOLE, 500 mg, intravenous, Q8H pantoprazole, 40 mg, oral, QAM AC sodium chloride, 3 mL, intravenous, Q12H DIO Continuous Infusions: dextrose 5 % in water, 100 mL/hr, Last Rate: Stopped (06/15/23 0854) sodium chloride 0.9 %, 20 mL/hr PRN Meds: acetaminophen calcium gluconate calcium gluconate calcium gluconate dextrose dextrose 5 % in water dextrose 50 % in water (D50W) glucagon (human recombinant) magnesium sulfate magnesium sulfate potassium chloride OR potassium chloride potassium chloride in water sodium phosphate IV OR sodium phosphate IV - central line OR sod phos di, mono-K phos mono sodium chloride sodium chloride sodium chloride 0.9 % OBJECTIVE Objective VITALS: BP 127/85 Pulse 87 Temp 36.5 C (97.7 F) (Oral) Resp 16 Ht 162.6 cm (5' 4 ) Wt 67.3 kg (148 lb 5.9 oz) SpO2 97% BMI 25.47 kg/m O2 Device: None (Room air) 06/13 658 - 06/14 657 In: 370 [I.V.:250] Out: 2400 [Urine:2400] PHYSICAL EXAM: Physical Exam Constitutional: General: She is not in acute distress. Appearance: Normal appearance. HENT: Head: Normocephalic and atraumatic. Mouth/Throat: Mouth: Mucous membranes are moist. Eyes: Extraocular Movements: Extraocular movements intact. Cardiovascular: Rate and Rhythm: Normal rate and regular rhythm. Pulses: Normal pulses. Heart sounds: Normal heart sounds. Pulmonary: Effort: Pulmonary effort is normal. No respiratory distress. Breath sounds: Normal breath sounds. Abdominal: General: There is no distension. Palpations: Abdomen is soft. Tenderness: There is no abdominal tenderness. There is no guarding. Musculoskeletal: General: Normal range of motion. Cervical back: Normal range of motion. Right lower leg: No edema. Left lower leg: No edema. Skin: General: Skin is warm. Neurological: General: No focal deficit present. Mental Status: She is alert and oriented to person, place, and time. Psychiatric: Mood and Affect: Mood normal. Behavior: Behavior normal. LABS: Labs Results from last 7 days Lab Units 06/15/23 1331 06/15/23 0542 06/14/23 2133 06/14/23 1638 06/14/23 0604 06/13/23 1346 06/13/23 0414 WBC X10E9/L -- 6.6 -- -- 7.8 -- 8.8 HEMOGLOBIN g/dL 11.9 11.1* 11.2* < > 11.2* < > 11.4* HEMATOCRIT % 34.7* 32.8* 32.7* < > 33.5* < > 33.9* PLATELETS X10E9/L -- 73* -- -- 62* -- 66* < > = values in this interval not displayed. Results from last 7 days Lab Units 06/15/23 0542 06/14/23 0604 06/13/23 0414 INR 1.2* 1.2* 1.4* Results from last 7 days Lab Units 06/15/23 1037 06/15/23 0542 06/15/23 0012 06/14/23 1638 06/14/23 0604 06/14/23 0016 06/13/23 1619 06/13/23 0414 SODIUM mmol/L -- 136 -- -- 140 -- -- 144 POTASSIUM mmol/L 3.5 3.7 3.8 < > 3.6 < > 3.6 3.1* CHLORIDE mmol/L -- 101 -- -- 106 -- -- 110* CO2 mmol/L -- 25 -- -- 22 -- -- 25 BUN mg/dL -- 5 -- -- 8 -- -- 17 CREATININE mg/dL -- 0.43 -- -- 0.33* -- -- 0.53 CALCIUM mg/dL -- 8.4* -- -- 8.1* -- -- 8.9 PHOSPHORUS mg/dL -- -- -- -- -- -- -- 2.6 MAGNESIUM mg/dL -- -- -- -- -- -- 2.1 1.4* < > = values in this interval not displayed. Results from last 7 days Lab Units 06/13/23 0414 ALBUMIN g/dL 3.1* TOTAL PROTEIN g/dL 5.6* ALT U/L 6 AST U/L 11 ALK PHOS U/L 45 Results from last 7 days Lab Units 06/15/23 0732 06/15/23 0542 06/15/23 0333 BEDSIDE GLUCOSE mg/dL 104* -- 65 GLUCOSE mg/dL -- 99 -- Lab Results Component Value Date HGBA1C 5.5 04/01/2023 No results found for: WBCU , SPECIFICGRA , LEUKOCYTE , NITRITEN , PHNUR , PROTEINNUR , KETONESNUR , UROBILINOGEN , BLOODHGBNU Cultures Microbiology Results No results found for the last 168 hours. IMAGING: Fluoroscopy swallow motility function STUDY: Video fluoroscopic swallow study. CLINICAL HISTORY: Oropharyngeal dysphagia COMPARISON: None. FINDINGS: Lateral videofluoroscopy performed during administration of various media by speech therapy. Fluoroscopic time was 1 minute 21 seconds. Fluoroscopic radiation dose reference air kerma: 1.13 mGy. 9 cine runs captured electronically without additional radiation exposure. Zero fluoroscopic spot images obtained. The patient was administered multiple consistencies of solids as well as thin and thick barium. No aspiration or penetration is seen. IMPRESSION: * No aspiration or penetration. Correlate with dedicated speech pathology report for additional details and recommendations. Approved by Resident Mariano Parmar MD on 06/15/2023 10:17 AM Krysten Rodriges MD have personally reviewed the image(s) and agree with and/or edited the report Finalized by Krysten Haynes MD on 06/15/2023 10:30 AM ASSESSMENT & PLAN #Rectal bleed secondary to ischemic colitis as evidenced by CT abdomen showing active arterial extravasation within the rectum Colorectal surgery-signed off GI consulted, appreciated recommendations-signed off Colonoscopy 06/14 removal of 3 polyps and findings of mucosal ulcerations and erythema in the rectum and rectosigmoid junction. May resume anticoagulation 72 hours postprocedure 06/16 Continue empiric Rocephin, flagyl and switch to Augmentin on discharge to complete 7 total days of antibiotic. Trend H&H q12h Monitor hemoglobin, transfuse if <7. #Dysphagia Speech evaluation via video swallow study today, level 6 often by size with level 0 thin liquids. 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 Vascular consulted, appreciate recommendations-signed off Recommends starting aspirin and Plavix, we will resume 72 hours postprocedure per GI recommendation Follow-up baseline NATASHA. Follow-up with Dr. 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 Patient will need PT/OT evaluation prior to acceptance. Plan for possible discharge tomorrow. Barriers to D/C: SNF acceptance Consults: GI, colorectal surgery, vascular surgery DVT prophylaxis: held, in the setting of active bleed Diet: Adult diet Regular Texture Fluids: PRN Disposition: TBD Code Status: Prior This note was created with the assistance of a speech-recognition program. Every effort was made to ensure accuracy; however, inadvertent computerized insurance sales manager errors may be present. Gabby Dickson MD Internal Medicine PGY-1 06/15/2023 2:53 PM Associated attestation - Jude Marti MD - 06/15/2023 4:27 PM EST ATTENDING ATTESTATION I personally examined the patient on rounds with the resident. I repeated the felix components of the exam. I confirm the note and agree with the assessment and plan. Please note there may be additional comments below. Comments: Delayed entry. The patient was examined earlier this morning on rounds. Discharge planning. ASA/Plavix per Vascular and GI recommendations. - JUDE MARTI MD 06/15/23 4:26 PM Images from the original note were not included. IP Day: 2 Subjective: No acute events overnight. Underwent colonoscopy which revealed diffuse mucosal ulceration of the rectum and sigmoid colon with no active bleeding. Feels well this morning. Tolerating diet with no nausea or vomiting. Very minimal abdominal pain. States that her left lower extremity is stiff and she is unable to ambulate much. Hemoglobin stable. No further bouts of melena or hematochezia Objective: Vitals: 06/15/23 0522 BP: (!) 146/111 Pulse: 77 Resp: Temp: 36.4 C (97.5 F) SpO2: 97% Temp: [-13.6 C (7.5 F)-37.1 C (98.8 F)] 36.4 C (97.5 F) Pulse: [61-84] 77 Resp: [16] 16 BP: (121-157)/(83-111) 146/111 SpO2: [96 %-100 %] 97 % O2 Device: None (Room air) O2 Flow Rate (L/min): [0 L/min] 0 L/min Allergies Allergen Reactions Ciprofloxacin Headache Alendronate Bee Venom Protein (Honey Bee) feels like my eyes are spinning around Mlzxurft-Hiempubkyfu-Mfqocmbff Oxycodone Headache I just don't want to take it Intake/Output last 3 shifts: I/O last 3 completed shifts: In: 6432 [I.V.:1864.1; NG/GT:3430; IV Piggyback:1137.9] Out: 4800 [Urine:4100; Stool:700] Intake/Output this shift: No intake/output data recorded. Dietary Orders (From admission, onward) Start Ordered 06/14/23 1900 Adult diet Regular Texture Diet effective now Question: Diet Type: Answer: Regular Texture 06/14/231900 Physical Exam Physical Exam Constitutional: General: She is sleeping. She is not in acute distress. Appearance: She is not ill-appearing. Cardiovascular: Rate and Rhythm: Normal rate and regular rhythm. Pulmonary: Effort: Pulmonary effort is normal. Abdominal: General: There is no distension. Palpations: Abdomen is soft. Tenderness: There is no abdominal tenderness. Skin: General: Skin is warm and dry. Capillary Refill: Capillary refill takes less than 2 seconds. Neurological: Mental Status: She is easily aroused. Mental status is at baseline. Laboratory Data: Lab Results Component Value Date WBC 6.6 06/15/2023 HGB 11.1 (L) 06/15/2023 HCT 32.8 (L) 06/15/2023 MCV 83 06/15/2023 PLT 73 (L) 06/15/2023 Lab Results Component Value Date GLU 99 06/15/2023 CALCIUM 8.4 (L) 06/15/2023 K 3.7 06/15/2023 CO2 25 06/15/2023 CL 101 06/15/2023 BUN 5 06/15/2023 CREATININE 0.43 06/15/2023 Lab Results Component Value Date ALT 6 06/13/2023 AST 11 06/13/2023 ALKPHOS 45 06/13/2023 amLODIPine, 10 mg, oral, Daily cefTRIAXone (ROCEPHIN) IV, 1,000 mg, intravenous, Q24H lisinopriL, 40 mg, oral, BID metoprolol tartrate, 25 mg, oral, BID metroNIDAZOLE, 500 mg, intravenous, Q8H sodium chloride, 3 mL, intravenous, Q12H DIO acetaminophen barium sulfate barium sulfate barium sulfate barium sulfate barium sulfate barium sulfate barium sulfate barium sulfate barium sulfate barium sulfate barium sulfate calcium gluconate calcium gluconate calcium gluconate dextrose dextrose 5 % in water dextrose 50 % in water (D50W) glucagon (human recombinant) magnesium sulfate magnesium sulfate potassium chloride in water sodium phosphate IV OR sodium phosphate IV - central line OR sod phos di, mono-K phos mono sodium chloride sodium chloride sodium chloride 0.9 % Assessment: Ellen Chan is a 78 y.o. female PMH AAA s/p EVAR, GERD, HTN, prior ICH s/p trach (now reversed) and PEG presenting with hematochezia. Hb stable at 11.4, CT scan read as sigmoid/rectal inflammation with possible active extravasation consistent with ischemic colitis. Hemoglobin has remained stable, abdomen is currently benign. 06/13: Colonoscopy revealed diffuse mucosal ulceration of rectum and sigmoid with no active bleeding. Plan: No plans for surgical intervention at this time Follow-up obtained biopsies. Continue diet as tolerated Continue antibiotics for 7 days total. Currently on Rocephin and Flagyl. Pain and nausea control p.r.n. On Protonix infusion, may deescalate from our standpoint, appreciate GI input. The patient may be discharged from our standpoint. We will sign off at this time. Jonathan Ramirez MD General Surgery Resident PGY4 Acute Care Surgery/ACS 6a-6p pager #[phone] 6p-6a pager #[phone] Associated attestation - Estevan Duff DO - 06/15/2023 10:15 AM EST General Surgery Attending Attestation: I saw the patient. I participated and was physically present during the critical/felix portions of the service. I was directly involved in the management and treatment plan of the patient. I reviewed the resident's note. Additional Notes/Findings: Colonoscopy results reviewed. Gastroenterology recommendations reviewed. Hemoglobin stable. Diet as tolerated from general surgery standpoint. No acute surgical intervention. General surgery will sign off. Estevan Duff D.O. INTERNAL MEDICINE PROGRESS NOTE IMS-4 Today: 06/14/23 Admit Date: 06/13/2023 Length of Stay: 1 days SUBJECTIVE Subjective: Interval Hx: Patient seen on examination at bedside this morning. No acute overnight events. Patient is resting comfortably. Patient is hemodynamically stable. Patient seems more alert today and able to follow simple directions. Patient is scheduled for colonoscopy this afternoon. Social work discussed with granddaughter who is the dPOA that upon discharge the patient will return to the [facility]. Speech therapy reports minimal oral dysphagia; pharyngeal dysphagia is suspected. 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 Vascular recommends starting aspirin and Plavix when cleared by GI. Subjective Chief Complaint: No chief complaint on file. HPI: Ellen Chan is a 78 y.o. female wit [facility] who was recently discharged from [facility] 04/16/23 after thalamic intracranial hemorrhage to LTC facility. She initially presented to [facility] on 06/10 due to care home staff concerns that she was having blood in her stool. CT abdomen at [facility] revealed active arterial extravasation within the rectum and findings concerning for ischemic colitis. Hemoglobin was between 11-13, not clear if she received any transfusion there. She was transferred to [facility] for vascular, IR, general surgery evaluation. On my evaluation patient is oriented x2, which is her baseline. She denies any abdominal pain, endorses mild nausea and thinks that she may have had blood in her stool but does not remember much. Denies dizziness lightheadedness, shortness of breath, palpitations. Vitals on admission are stable within normal limits. Allergies: Allergies Allergen Reactions Ciprofloxacin Headache Alendronate Bee Venom Protein (Honey Bee) feels like my eyes are spinning around Pvvfgodk-Ndxgacudbjx-Pecazovko Oxycodone Headache I just don't want to take it Past Medical History: Past Medical History: Diagnosis Date AAA (abdominal aortic aneurysm) ([facility]) was surgically taken care of 09/2018 GERD (gastroesophageal reflux disease) Hypertension Upper respiratory infection 05/2019 Visual impairment glasses Past Surgical History: Past Surgical History: Procedure Laterality Date BREAST BIOPSY BREAST SURGERY 1989 BREAST BX CARDIAC SURGERY STENT 2018 CARDIAC SURGERY LEFT VENTRICLE STENT 2018 DILATION AND CURETTAGE, DIAGNOSTIC / THERAPEUTIC 1986 ESOPHAGOGASTRODUODENOSCOPY INSERTION PEG TUBE N/A 04/11/2023 Performed by Dae Bo MD at [facility] HYSTERECTOMY KNEE ARTHROSCOPY Left KNEE ARTHROSCOPY Left REMOVE METAL 2014 LAPAROSCOPIC CHOLECYSTECTOMY N/A 05/26/2019 Performed by Caro Pollard DO at [facility] ORIF WRIST FRACTURE Right Pins Family History: No family history on file. Current Medications: Scheduled Meds: cefTRIAXone (ROCEPHIN) IV, 1,000 mg, intravenous, Q24H metroNIDAZOLE, 500 mg, intravenous, Q8H sodium chloride, 3 mL, intravenous, Q12H DIO Continuous Infusions: dextrose 5 % in water, 100 mL/hr [COMPLETED] pantoprazole, 80 mg AND pantoprazole (PROTONIX) 80 mg in sodium chloride 0.9 % 100 mL (0.8 mg/mL) infusion, 8 mg/hr, Last Rate: 8 mg/hr (06/14/23 0508) sodium chloride 0.9 %, 20 mL/hr PRN Meds: acetaminophen calcium gluconate calcium gluconate calcium gluconate dextrose dextrose 5 % in water dextrose 50 % in water (D50W) glucagon (human recombinant) magnesium sulfate magnesium sulfate potassium chloride in water sodium phosphate IV OR sodium phosphate IV - central line OR sod phos di, mono-K phos mono sodium chloride sodium chloride sodium chloride 0.9 % OBJECTIVE Objective VITALS: BP 143/83 Pulse 76 Temp 36.6 C (97.8 F) (Oral) Resp 16 Ht 162.6 cm (5' 4 ) Wt 65.1 kg (143 lb 8.3 oz) SpO2 100% BMI 24.64 kg/m O2 Device: None (Room air) 06/12 658 - 06/13 657 In: 6092 [I.V.:1614.1] Out: 3500 [Urine:2800] PHYSICAL EXAM: Physical Exam Constitutional: General: She is not in acute distress. Appearance: Normal appearance. HENT: Head: Normocephalic and atraumatic. Mouth/Throat: Mouth: Mucous membranes are moist. Eyes: Extraocular Movements: Extraocular movements intact. Cardiovascular: Rate and Rhythm: Normal rate and regular rhythm. Pulses: Normal pulses. Heart sounds: Normal heart sounds. Pulmonary: Effort: Pulmonary effort is normal. No respiratory distress. Breath sounds: Normal breath sounds. Abdominal: General: There is no distension. Palpations: Abdomen is soft. Tenderness: There is no abdominal tenderness. There is no guarding. Musculoskeletal: General: Normal range of motion. Cervical back: Normal range of motion. Right lower leg: No edema. Left lower leg: No edema. Skin: General: Skin is warm. Neurological: General: No focal deficit present. Mental Status: She is alert and oriented to person, place, and time. Psychiatric: Mood and Affect: Mood normal. Behavior: Behavior normal. LABS: Labs Results from last 7 days Lab Units 06/14/23 0604 06/13/23 2118 06/13/23 1346 06/13/23 0414 WBC X10E9/L 7.8 -- -- 8.8 HEMOGLOBIN g/dL 11.2* 10.5* 11.3* 11.4* HEMATOCRIT % 33.5* 30.9* 33.5* 33.9* PLATELETS X10E9/L 62* -- -- 66* Results from last 7 days Lab Units 06/14/23 0604 06/13/23 0414 INR 1.2* 1.4* Results from last 7 days Lab Units 06/14/23 0604 06/14/23 0016 06/13/23 1619 06/13/23 0414 SODIUM mmol/L 140 -- -- 144 POTASSIUM mmol/L 3.6 3.8 3.6 3.1* CHLORIDE mmol/L 106 -- -- 110* CO2 mmol/L 22 -- -- 25 BUN mg/dL 8 -- -- 17 CREATININE mg/dL 0.33* -- -- 0.53 CALCIUM mg/dL 8.1* -- -- 8.9 PHOSPHORUS mg/dL -- -- -- 2.6 MAGNESIUM mg/dL -- -- 2.1 1.4* Results from last 7 days Lab Units 06/13/23 0414 ALBUMIN g/dL 3.1* TOTAL PROTEIN g/dL 5.6* ALT U/L 6 AST U/L 11 ALK PHOS U/L 45 Results from last 7 days Lab Units 06/14/23 0604 06/13/23 0414 GLUCOSE mg/dL 62* 82 Lab Results Component Value Date HGBA1C 5.5 04/01/2023 No results found for: WBCU , SPECIFICGRA , LEUKOCYTE , NITRITEN , PHNUR , PROTEINNUR , KETONESNUR , UROBILINOGEN , BLOODHGBNU Cultures Microbiology Results No results found for the last 168 hours. IMAGING: CT angiogram abdomen and pelvis Addendum: *ADDENDUM* ADDENDUM: 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 There is calcification along the wall and intimal flap and there is no surrounding fluid, blood, inflammatory change or irregular intraluminal thrombus There is a similar short dissection in the left superficial femoral artery which looks unchanged and with similar characteristics aside from no significant calcification Finalized by Adriel Méndez MD on 06/13/2023 12:50 PM Narrative: HISTORY and Tech Notes: Mesenteric ischemia, acute Follow-up colitis PROCEDURE: CT angiogram abdomen pelvis Study is done with IV contrast Arterial phase and venous phase imaging Two-dimensional source data images submitted in combination with three-dimensional and/or maximum intensity projections and reconstructions Automated exposure control was utilized COMPARISON: June 10 FINDINGS: There is significant tortuosity of the distal descending thoracic aorta and the abdominal aorta There is an endovascular graft stent in the descending thoracic aorta and also in the abdominal aorta There is no visible endoleak or periaortic hematoma The endograft stents extend into the common iliac arteries and right external iliac artery 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 There is only mild stenosis at the origin The SMA enhances There is not significant stenosis at the origin There is mild irregularity, thrombus and narrowing of the proximal to mid segment without occlusion There is moderate calcification multifocal stenosis in the renal arteries On venous phase imaging the SMV enhances There is mild narrowing due to the compression of the abdominal aortic aneurysm in the mid abdomen The splenic vein enhances The portal vein and branches enhance The hepatic veins enhance The hepatic veins enhance UPPER ABDOMEN No splenomegaly. Granuloma changes Left greater than right renal cysts There is a complex lesion in the right kidney with a dense or enhancing component measuring around 2 cm. Follow-up surveillance imaging in 6 months suggested No peripancreatic fluid collections. There is pancreatic atrophy There is suggestion of a tiny cyst in the pancreatic body There is no visible ductal dilatation There are not pancreatic calcifications No suspicious liver mass. No significant bile duct dilatation or perihepatic fluid GB removed No fluid collection Slight prominence of the CBD may be physiologic after cholecystectomy assuming no jaundice or abnormal bilirubin levels No suspicious adrenal mass seen No large hiatal hernia There is a PEG tube in place without visible complication of gastric wall looks prominent but it may be exaggerated by lack of distention PELVIS No hydronephrosis . Lenz in place Nondilated bladder There is some dense material in the dependent portion of the bladder No sign of a bowel obstruction. There is persistent severe bowel wall thickening in the rectum and rectosigmoid region with adjacent fluid and fat stranding and hyperemia, similar to the previous exam The rest of the large and small bowel do not look affected No discrete abscess is seen at this point . No retroperitoneal bleed or suspicious adenopathy. No sign to suggest acute appendicitis. LUNG BASE EVALUATION no basilar consolidation or significant effusion. . BONE RECONSTRUCTIONS Chronic appearing deformity at L4 No aggressive bone destruction. . IMPRESSION: Mild irregularity and stenosis along the proximal and mid SMA without occlusion Dilated tortuous thoracic and abdominal aorta with endovascular graft as detailed above. 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 No significant stenosis or irregular thrombus Hepatic and portal veins look patent. There is some mass effect on the SMV due to the abdominal aortic aneurysm sac causing some narrowing and compression of the lumen without visible thrombus - Severe inflammatory change within and around the rectum and rectosigmoid junction with adjacent fat stranding and fluid accumulation but no discrete abscess or bowel obstruction at this point Follow-up suggested prove clearing and normalization and exclude underlying neoplasm or other pathology Complex lesion in the right kidney with a 2 cm dense hemorrhagic or enhancing nodular component adjacent to the more simple cystic component superior to that. Follow-up surveillance imaging within 6 months suggested in attempt to prove stability or benign imaging characteristics. MRI might be useful but may be subject to extensive artifact from the endograft Slight prominence of the CBD thought likely to be physiologic after cholecystectomy in the absence of abnormal bilirubin levels or jaundice . . All CT scans at this facility use dose modulation, iterative reconstruction, and/or weight based dosing when appropriate to reduce radiation dose to as low as reasonably achievable. Finalized by Adriel Méndez MD on 06/13/2023 11:52 AM ASSESSMENT & PLAN #Rectal bleed secondary to ischemic colitis as evidenced by CT abdomen showing active arterial extravasation within the rectum Colorectal surgery consulted, appreciate recommendations GI consulted, plan for colonoscopy this afternoon PEG tube has not been used since patient admission in April for thalamic intracranial hemorrhage hold off on any anticoagulants/antiplatelets continue empiric Rocephin, flagyl Trend H&H q12h Monitor hemoglobin, transfuse if <7. 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 Vascular consulted, appreciate recommendations-signed off Recommends starting aspirin and Plavix when cleared by GI Follow-up baseline NATASHA. Follow-up with Dr. 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 Every effort was made to ensure accuracy; however, inadvertent computerized insurance sales manager errors may be present. Gabby Dickson MD Internal Medicine PGY-1 06/14/2023 8:16 AM Associated attestation - Jude Marti MD - 06/14/2023 4:47 PM EST ATTENDING ATTESTATION I personally examined the patient separately from the resident. I repeated felix components of the exam. I confirm the note and agree with the assessment and plan. Please note there may be additional comments below. Comments: examined after she came back from endoscopy. Colonoscopy + for friable mucosa in rectum biopsies taken. If continues to do well consider discharge soon. - JUDE MARTI MD 06/14/23 4:46 PM Images from the original note were not included. IP Day: 1 Subjective: No major events overnight. Patient has completed bowel prep for colonoscopy today. Has not had any further bloody bowel movements since presentation yesterday. Per nurse at bedside, bowel movements have been largely mucoid with bowel prep. Denies ongoing abdominal pain, nausea or vomiting. Objective: Vitals: 06/14/23 0550 BP: 137/87 Pulse: 78 Resp: 16 Temp: 36.5 C (97.7 F) SpO2: 95% Temp: [36.4 C (97.5 F)-36.7 C (98.1 F)] 36.5 C (97.7 F) Pulse: [72-85] 78 Resp: [16-18] 16 BP: (123-146)/(86-105) 137/87 SpO2: [94 %-97 %] 95 % O2 Device: None (Room air) Allergies Allergen Reactions Ciprofloxacin Headache Alendronate Bee Venom Protein (Honey Bee) feels like my eyes are spinning around Frdyucyj-Exjkvmlqzwg-Qbgdfjsgd Oxycodone Headache I just don't want to take it Intake/Output last 3 shifts: I/O last 3 completed shifts: In: 6092 [I.V.:1614.1; NG/GT:3340; IV Piggyback:1137.9] Out: 3500 [Urine:2800; Stool:700] Intake/Output this shift: No intake/output data recorded. Dietary Orders (From admission, onward) Start Ordered 06/14/23 0001 Adult diet NPO; Except medications Diet effective midnight Question Answer Comment Diet Type: NPO NPO Except: Except medications 06/13/23 1048 Physical Exam Physical Exam Constitutional: General: She is sleeping. She is not in acute distress. Appearance: She is not ill-appearing. Cardiovascular: Rate and Rhythm: Normal rate and regular rhythm. Pulmonary: Effort: Pulmonary effort is normal. Abdominal: General: There is no distension. Palpations: Abdomen is soft. Tenderness: There is no abdominal tenderness. Skin: General: Skin is warm and dry. Capillary Refill: Capillary refill takes less than 2 seconds. Neurological: Mental Status: She is easily aroused. Mental status is at baseline. Laboratory Data: Lab Results Component Value Date WBC 7.8 06/14/2023 HGB 11.2 (L) 06/14/2023 HCT 33.5 (L) 06/14/2023 MCV 84 06/14/2023 PLT 62 (L) 06/14/2023 Lab Results Component Value Date GLU 62 (L) 06/14/2023 CALCIUM 8.1 (L) 06/14/2023 K 3.6 06/14/2023 CO2 22 06/14/2023 CL 106 06/14/2023 BUN 8 06/14/2023 CREATININE 0.33 (L) 06/14/2023 Lab Results Component Value Date ALT 6 06/13/2023 AST 11 06/13/2023 ALKPHOS 45 06/13/2023 cefTRIAXone (ROCEPHIN) IV, 1,000 mg, intravenous, Q24H metroNIDAZOLE, 500 mg, intravenous, Q8H sodium chloride, 3 mL, intravenous, Q12H DIO acetaminophen calcium gluconate calcium gluconate calcium gluconate dextrose dextrose 5 % in water dextrose 50 % in water (D50W) glucagon (human recombinant) magnesium sulfate magnesium sulfate potassium chloride in water sodium phosphate IV OR sodium phosphate IV - central line OR sod phos di, mono-K phos mono sodium chloride sodium chloride sodium chloride 0.9 % Assessment: Ellen Chan is a 78 y.o. female PMH AAA s/p EVAR, GERD, HTN, prior ICH s/p trach (now reversed) and PEG presenting with hematochezia. Hb stable at 11.4, CT scan read as sigmoid/rectal inflammation with possible active extravasation consistent with ischemic colitis. Hemoglobin has remained stable, abdomen is currently benign. Plan: Plan for colonoscopy today with GI Okay for CLD from general surgery standpoint, defer to GI/primary team Continue to monitor hemoglobin, transfuse for hemoglobin less than 7 Continue to monitor and replace electrolytes p.r.n. Pain and nausea control p.r.n. DVT prophylaxis: Mechanical, hold chemical Kaylene Ramírez MD General Surgery Resident PGY1 Acute Care Surgery/ACS 6a-6p pager #[phone] 6p-6a pager #[phone] Associated attestation - Estevan Duff DO - 06/14/2023 12:10 PM EST General Surgery Attending Attestation: I saw the patient. I participated and was physically present during the critical/felix portions of the service. I was directly involved in the management and treatment plan of the patient. I reviewed the resident's note. Additional Notes/Findings: Await colonoscopy results. Abdomen is soft and nontender. Hemoglobin stable. No documented bouts of melena or hematochezia. Will continue to follow along with you. Estevan Duff D.O. documented in this encounter [facility] 06-15-2023 Progress note Formatting of t his note might be different from the original. DISCHARGE PLANNING NOTE Cancelled BLS for today. Spoke with Meenakshi [facility]. [facility] 06-15-2023 Progress note Formatting of t his note might be different from the original. DISCHARGE PLANNING NOTE RKISSY spoke with Jody this morning with [facility] about patient returning. She stated that was good and to send CRF when we got it. CN was then called by bedside RN at 1345 to say the facility had called him and did not officially accept patient and needed information. CN called facility and spoke with Mulu, who stated they needed progress notes, PT/OT notes, medication list. CN faxed all information requested and bedside RN reached out to therapy to see patient. Therapy could not see patient today. Transport is cancelled and will follow up in the morning to see if [facility] can take patient. - Amita James RN 06/15/23 2:16 PM [facility] 06-15-2023 Progress note Formatting of t his note might be different from the original. DISCHARGE PLANNING NOTE BLS transport via [facility] to the [facility] [place] 3.9.24 at 4:00pm. Confirmed in [place] [facility] 06-15-2023 Plan of care note Colonoscopy completed yesterday with removal of 3 polyps and endoscopic findings of mucosal ulcerations and erythema in the rectum and rectosigmoid junction. Biopsies were taken to rule out ischemic colitis. Recommend antibiotics for 7 days. Recommend laxatives and avoiding constipation. Okay to resume anticoagulation after 72 hours post procedure if needed. No further recommendations from GI. We will sign off. Please call with questions. [facility] Work Phone: 06-15-2023 Hospital Discharge instructions Gabby Dickson MD - 06/15/2023 10:58 AM EST INTERNAL MEDICINE DISCHARGE INSTRUCTIONS: You were hospitalized for rectal bleeding - Meds - Start taking: Augmentin 87 5 125 mg per tablet take 1 tablet by mouth in the morning and 1 tablet before bedtime for 3 days. Start taking aspirin 81 mg by mouth in the morning daily and Plavix 75 mg tablet 1 tablet by mouth in the morning daily starting 06/16 for both Please continue taking your medications as prescribed - Diet & Activity - We recommend your diet be Adult diet Regular Texture Avoid intense physical activity until evaluated by your primary care provider. - Follow Ups - Please follow up with the following specialists when you leave: Follow up with Primary Care Provider within 1-2 weeks Follow up with cathead worker within 1-2 weeks Follow-up with vascular surgery Dr. Hyde within 1-2 weeks Follow-up with orthopedic surgery within 1-2 weeks - Emergencies - If you experience new or worsening symptoms, including chest pain or shortness of breath, please call 911 or return to the emergency department immediately. The following attachments cannot be sent through Care Everywhere.Gastrointestinal Bleeding ([place])documented in this encounter [facility] 06-15-2023 Progress note Formatting of t his note is different from the original. Speech Therapy Videofluoroscopic Swallow Study Evaluation Impressions Oral Phase: Mild Pharyngeal Phase: Mild Functional Oral Intake Scale: Total PO with multiple consistencies requiring special prep Recommendations Diet Level: Level 6 Soft and Bite-Sized Liquid Level: Level 0 Thin Compensatory Strategies: Follow aspiration precautions, One sip/bite at a time, Small sips/bites Supervision/Positioning: Patient at 90 degress for all PO intake (including medication), Patient to remain upright 15 minutes after meals Medications: In applesauce/puree Referrals: Dysphagia therapy, [facility] Discharge Recommendations: Other (comment) (ongoing ST services) Plan Frequency: 1-2days/week Duration: until discharge Treatments/Modalities: Safety strategies, Oral motor treatment plan, Pharyngeal strengthening Need for skilled Speech Language Pathology Services to address deficits in feeding/swallowing due to a status decline resulting from acute lower GI bleeding. Pt educated on purpose of exam, contrast administration, and procedural techniques prior to initiation of exam. Pt educated on diet recommendations, plan of care, and encouraged to use safety strategies in order to maintain safe PO intake following exam. Okay for Level 6 Soft & Bite-Sized (SB6) Diet with Level 0 Thin liquids. Prognosis Services: Skilled PLANNER services to address above deficits Prognosis/Potential: Good Considerations: Age, Cognition, Previous level of function, Severity of impairments Assessment Baseline Assessment Allergies Marked As Reviewed: Complete Consistencies Tested Views: Lateral position Level 0 Thin: Spoon, Cup, Straw Level 4 Pureed: Spoon Level 6 Soft & Bite-Sized: Spoon Regular Tested: Bite Modified Barium Swallow Impairment Profile (MBSImP) Oral Impairment: Yes Component 1: Lip Closure: no labial escape Component 2: Tongue Control During Bolus Hold: escape to lateral buccal cavity/floor of mouth Component 3: Bolus Preparation/Mastication: slow prolonged chewing/mashing with complete re-collection Component 4: Bolus Transport/Lingual Motion: delayed initiation of tongue motion Component 5: Oral Residue: trace residue lining oral structures Component 6: Initiation of Pharyngeal Swallow: bolus head at posterior laryngeal surface of epiglottis Pharyngeal Impairment: Yes Component 7: Soft Palate Elevation: no bolus between soft palate/posterior pharyngeal wall Component 8: Laryngeal Elevation: complete superior movement of thyroid cartilage with complete approximation of arytenoids to epiglottic petiole Component 9: Anterior Hyoid Excursion: partial anterior movement Component 10: Epiglottic Movement: partial inversion Component 11: Laryngeal Vestibular Closure - Height of the Swallow: incomplete, narrow column of contrast/air in laryngeal vestibule Component 12: Pharyngeal Stripping Wave: present - diminished Component 13: Pharyngeal Contraction (A/P view only): could not be determined due to logistical reasons not related to physiologic impairment Component 14: Pharyngoesophageal Segment Opening: partial distension/partial duration, partial obstruction of flow Component 15: Tongue Base Retraction: narrow column of contrast/air between tongue base and posterior pharyngeal wall Component 16: Pharyngeal Residue: collection of residue within or on pharyngeal structures MBSImP Overall Impression Scores Oral Impairment Total: 6 Pharyngeal Impairment Total: 9 Penetration/Aspiration Scale Penetration/Aspiration Scale Performed: Yes Level 0 Thin: Contrast did not enter the airway Level 4 Pureed: Contrast did not enter the airway Level 6 Soft & Bite-Sized: Contrast did not enter the airway Regular: Contrast did not enter the airway Trialed Compensatory Strategies Strategies Utilized: Small sips/bites, Double swallow, Controlled bolus Effective: Yes Pain Assessment Pain Assessment: No/denies pain Plan Diagnosis Code Swallowing: R13.12 Dysphagia, oropharyngeal phase Speech Therapy Care Plan Speech Therapy Care Plan (Active) Template: ST - Dysphagia Problem: Swallowing Dates: Start: 06/13/23 Disciplines: PLANNER Goal: LTG: Patient will tolerate least restrictive diet recommended by PLANNER without signs and symptoms of aspiration 90% of the time Dates: Start: 06/13/23 Expected End: 07/14/23 Disciplines: PLANNER Outcomes Date/Time User Outcome 06/15/23 1004 BARR[place] Mayer Progressing Goal: STG: Patient will complete safety strategies independently during PO intake 90% of the time Dates: Start: 06/13/23 Expected End: 07/14/23 Disciplines: PLANNER Outcomes Date/Time User Outcome 06/15/23 1004 BARRINGTON Mayer Progressing Goal: STG: Patient will complete oral/ pharyngeal strengthening program with resistance with 90% accuracy with minimal cueing Dates: Start: 06/13/23 Expected End: 07/14/23 Disciplines: PLANNER Speech Therapy Care Plan (Resolved) There are no resolved problems. Principal Problem: Acute lower GI bleeding Active Problems: Acute blood loss anemia History of hemorrhagic cerebrovascular accident (CVA) with residual deficit Essential hypertension Ischemic colitis ([facility]) Dementia ([facility]) History of AAA (abdominal aortic aneurysm) repair Right renal mass [facility] 06-15-2023 Plan of care note Problem: Pain Goal: Patient goal is pain [...] Progressing Note: Evaluation of progress towards goal: Discussed with the patient about means of using pharmacologic and nonpharmacologic methods to manage pain. Education was completed and hourly rounding is in place. Patient has no further questions at time. Problem: Safety Goal: Patient will be injury [...] Evaluation of progress towards goal: Patient is free of injury. Will continue to implement fall precautions, five medication administration rights and hand hygiene. Problem: Infection Goal: Absence of infection during [...] entry representative in use of appropriate isolation precautions for identified infection/symptoms 8. Provide and discuss with patient/patient data entry representative on educational MDRO sheet 9. Encourage and monitor nutritional status daily and consult professional fighter if indicated 10. Implement neutropenic guidelines as needed 11. Review exposure to history of communicable disease and recent travel history on admission 12. Encourage annual influenza vaccine 13. Encourage pneumonia vaccine Outcome: Progressing Note: Evaluation of progress towards goal: Patient is free from infection. Will continue to monitor vitals, WBC count, and perform hand hygiene. Problem: Knowledge Deficit Goal: Patient/patient data entry representative demonstrates understanding of disease process, treatment plan, medications, and discharge instructions Description: INTERVENTIONS 1. Complete learning assessment and assess knowledge base 2. Provide teaching at level of understanding 3. Provide teaching via preferred learning method(s) Outcome: Progressing Note: Evaluation of progress towards goal: Plan of care and medications discussed with patient. Patient verbalizes their understanding and acceptance. Problem: Moderate - High Risk Fall Score Description: [place] Fall Score of =/> 25 or indicated by [facility] Assessment Goal: Patient should be free from fall Description: Interventions: 1. [place] to environment 2. Hourly rounds addressing the [...] how to maintain a safe environment during visitation times (notify nurse prior to leaving bedside) 25. Consider appropriateness of medical or non-medical records auditor 26. Set up voiding schedule as appropriate (every 2 hours) Outcome: Progressing Note: Evaluation of progress towards goal: Patient is free from falls. Bed in lowest position and locked, non-slip footwear, patient understands how to use the call light and personal items are in reach. [facility] [employer] [facility] 06-15-2023 Plan of care note Problem: Pain Goal: Patient goal is pain [...] Note: Evaluation of progress towards goal: patient verbalizes no pain Problem: Safety Goal: Patient will be [...] Evaluation of progress towards goal: patient remains injury free at this time preventative measure in place. [facility] 06-14-2023 Plan of care note Colonoscopy completed today with removal of 3 polyps and endoscopic findings of mucosal ulcerations and erythema in the rectum and rectosigmoid junction. Biopsies were taken to rule out ischemic colitis. Recommend antibiotics for 7 days. Recommend laxatives and avoiding constipation. Will arrange for outpatient follow-up in the GI clinic. No further recommendations from GI. We will sign off. Please call with questions. Walker Castillo MD Gastroenterology Fellow [place] [facility] 06/14/23 4:49 PM [facility] Work Phone: 06-14-2023 Note [facility] Patient Name: Ellen Chan Procedure Date: 06/14/2023 2:08 PM CSN: [id number] Date of : 1945 Admit Type: Inpatient Age: 78 Room: [place] [address] Gender: Female Note Status: Finalized Attending MD: ОЛЕГ LONG MD, Procedure: Colonoscopy Indications: Hematochezia Providers: ОЛЕГ LONG MD Referring MD: Dulce Castillo Requesting Provider: Medicines: Monitored Anesthesia Care Complications: No immediate complications. Procedure: After I obtained informed consent, the scope was passed under direct vision. Throughout the procedure, the patient's blood pressure, pulse, and oxygen saturations were monitored continuously. The was introduced through the anus and advanced to the terminal ileum, with identification of the appendiceal orifice and IC valve. The colonoscopy was performed without difficulty. The patient tolerated the procedure well. The quality of the bowel preparation was fair. Findings: Two sessile polyps were found in the ascending colon. The polyps were 4 mm in size. These polyps were removed with a cold snare. Resection and retrieval were complete. A 5 mm polyp was found in the transverse colon. The polyp was sessile. The polyp was removed with a cold snare. Resection and retrieval were complete. Nonbleeding severely ulcerated mucosa with diffuse surrounding erythema, friability were present in the rectum and in the recto-sigmoid colon. Biopsies were taken with a cold forceps for histology. - fair prep, small lesions can be missed during this exam Multiple diverticula were found in the sigmoid colon. Estimated Blood Loss: Estimated blood loss was minimal. Impression: - Preparation of the colon was fair. - Two 4 mm polyps in the ascending colon, removed with a cold snare. Resected and retrieved. - One 5 mm polyp in the transverse colon, removed with a cold snare. Resected and retrieved. - Mucosal ulceration with surrounding erythema at the rectum and the rectosigmoid junction. Biopsied rule out ischemic colitis. - Diverticulosis in the sigmoid colon. Recommendation: - Resume regular diet. - Await pathology results. - Antibiotics for 7 days - Laxatives, avoid constipation Procedure Code(s): --- Professional --- 65911, Colonoscopy, flexible; with removal of tumor(s), polyp(s), or other lesion(s) by snare technique 47753, 59, Colonoscopy, flexible; with biopsy, single or multiple Diagnosis Code(s): --- Professional --- D12.2, Benign neoplasm of ascending colon D12.3, Benign neoplasm of transverse colon (hepatic flexure or splenic flexure) K63.3, Ulcer of intestine K92.1, Melena (includes Hematochezia) CPT copyright 2021 [employer] [place] [employer]. All rights reserved. The codes documented in this report are preliminary and upon loan secretary review may be revised to meet current compliance requirements. Dr. Олег LONG MD 06/14/2023 3:00:48 PM This report has been signed electronically. Number of Addenda: 0 Note Initiated On: 06/14/2023 2:08 PM PM [facility] 06-14-2023 Note Formatting of this n ote might be different from the original. Patient Instructions after a Colonoscopy with Biopsy/PolypectomyPatient: Ellen Chan Date: June 13ttending MD: ОЛЕГ LONG MD1. Do Not eat or drink anything for 1 hour. Try sips of water first. If tolerated, consume a soft, low fiber diet for 1-2 days or follow any special diet recommended by your physician.2. Do not drive, operate machinery, make critical decisions, or do activities that require coordination or balance for 24 hours.3. Because air was put into your colon during the procedure, expelling large amounts of air from your rectum is normal.4. You may not have a bowel movement for 1-3 days because of the colonoscopy prep. This is normal.5. Do not take any products containing aspirin for 10 days.6. Go directly to the emergency room if you notice any of the following: Chills and/or fever over 101 Persistent vomiting Severe abdominal pain, other than gas cramps Severe chest pain Black, tarry stools Any bleeding - exceeding one [facility] doctor recommends these additional instructions:Resume your regular diet. We are waiting for your pathology results.Your impressions for this procedure:- Preparation of the colon was fair. - Two 4 mm polyps in the ascending colon, removed with a cold snare. Resected and retrieved. - One 5 mm polyp in the transverse colon, removed with a cold snare. Resected and retrieved. - Mucosal ulceration with surrounding erythema at the rectum and the rectosigmoid junction. Biopsied rule out ischemic colitis. - Diverticulosis in the sigmoid colon.If you have any questions regarding the above instructions, please call the GI Lab. Nurse Signature Patient/De signated Responsible Alliance Party SignatureDr. Олег LONG MD06/14/2023 3:00:48 PMThis report has been signed electronically. [facility] Work Phone: 06-14-2023 Nurse Note Spoke with Surgery about using the female external catheter on the patients rectum during the bowel prep. They gave the okay to use it for that since the patient is bed bound and has right sided hemiplegia and a lenz catheter. [facility] 06-14-2023 Plan of care note Images from the original note were not included. [facility] VASCULAR SURGERY 78 y.o. female was admitted on 06/13/2023 with a right common iliac artery aneurysm for which Vascular Surgery was consulted. Vascular Surgery will sign off at this time. Please do not hesitate to call with any questions or concerns. Follow-up: Dr. Hyde 07/31 @ 8:30 in [place] Aakash Friedman MD Vascular Surgery Resident, PGY-1 06/14/2023 [facility] Work Phone: 06-14-2023 Plan of care note Problem: Pain Goal: Patient goal is pain [...] Evaluation of progress towards goal: Pt has PRN pain meds available during shift, will continue to monitor. Problem: Safety Goal: Patient [...] Note: Evaluation of progress towards goal: Pt environment safe and items within reach during shift. Problem: Infection Goal: Absence of infection during [...] entry representative in use of appropriate isolation precautions for identified infection/symptoms 8. Provide and discuss with patient/patient data entry representative on educational MDRO sheet 9. Encourage and monitor nutritional status daily and consult professional fighter if indicated 10. Implement neutropenic guidelines as needed 11. Review exposure to history of communicable disease and recent travel history on admission 12. Encourage annual influenza vaccine 13. Encourage pneumonia vaccine Outcome: Progressing Note: Evaluation of progress towards goal: Pt afebrile, vss, will continue to monitor during shift. Problem: Knowledge Deficit Goal: Patient/patient data entry representative demonstrates understanding of disease process, treatment plan, medications, and discharge instructions Description: INTERVENTIONS 1. Complete learning assessment and assess knowledge base 2. Provide teaching at level of understanding 3. Provide teaching via preferred learning method(s) Outcome: Progressing Note: Evaluation of progress towards goal: Discussed plan with pt and answered questions as needed during shift. Problem: Discharge Planning Goal: Discharge to post-acute [...] Progressing Note: Evaluation of progress towards goal: Discussed discharge with pt during shift and questions answered as needed. Problem: Potential for Compromised Skin Integrity Goal: [...] Note: Evaluation of progress towards goal: Pt skin dry and intact, wound assessed, will continue to monitor during shift. Goal: Patient's nutritional intake is adequate Description: [...] supplement as ordered 13. Collaborate with clinical professional fighter 14. Include patient/ patient's data entry representative in decisions related to nutrition Outcome: Progressing Note: Evaluation of progress towards goal: Pt nutritional needs assessed and provided during shift. Problem: Urinary Incontinence Goal: Perineal skin integrity [...] Note: Evaluation of progress towards goal: Perineal hygiene provided, and output monitored during shift. Problem: Moderate - High Risk Fall Score Description: [place] Fall Score of =/> 25 or indicated by [facility] Assessment Goal: Patient should be free from fall Description: Interventions: 1. [place] to environment 2. Hourly rounds addressing the [...] how to maintain a safe environment during visitation times (notify nurse prior to leaving bedside) 25. Consider appropriateness of medical or non-medical records auditor 26. Set up voiding schedule as appropriate (every 2 hours) Outcome: Progressing Note: Evaluation of progress towards goal: Pt remains free from falls, bed alarm maintained as needed, will continue to monitor during shift. [facility] 06-14-2023 Progress note Formatting of t his note is different from the original. Speech Therapy CANCEL - Deferred Pt currently NPO for a colonoscopy today. Speech will continue to follow and complete evaluation as appropriate. [facility] 06-14-2023 Attending History and physical note H&P reviewed. The patient was examined and there are no changes to the H&P. Associated attestation - Олег Long MD - 06/14/2023 1:54 PM EST H&P reviewed. The patient was examined and there are no changes to the H&P. Source Note - Simeon Upton DO - 06/13/2023 10:10 AM EST [facility] Teaching GI Service Initial Gastroenterology/Hepatology Consultation Note IDENTIFYING DATA PATIENT: Ellen Chan ADMIT DATE: 06/13/2023 TIME OF EVALUATION: 06/13/2023 10:10 AM Reason for Consult: Hematochezia Requesting Physician: Emilee Marie DO HISTORY OF PRESENT ILLNESS Ellen Chan is a 78 y.o. female who was recently admitted in April secondary to intracranial hemorrhage, during that admission requiring PEG who presents from care home for hematochezia. History is obtained from chart review and care team given patient is altered. Patient was taken to [facility] CT scan was performed that revealed sigmoid and rectum thickening, with possible active arterial extravasation. Hemoglobin was 13 on arrival at [place]. She was then transferred to [facility] for escalation of care. She has had no further episodes of hematochezia. Hemoglobin is stable. Hemodynamics are stable. No documentation of anticoagulation in her chart. Patient denies abdominal pain, nausea, vomiting. GI HISTORY SUMMARY TABLE Last EGD Last colonoscopy Primary GI physician PAST MEDICAL, SURGICAL, FAMILY, and SOCIAL HISTORY Past Medical History: Diagnosis Date AAA [...] 04/11/2023 Performed by Dae Bo MD at [facility] HYSTERECTOMY KNEE ARTHROSCOPY Left KNEE ARTHROSCOPY Left REMOVE METAL 2014 LAPAROSCOPIC CHOLECYSTECTOMY N/A 05/26/2019 Performed by Caro Pollard DO at [facility] WRIST FRACTURE Right Pins No family history on file. Social History: Social History Tobacco Use Smoking status: Former Smokeless tobacco: Never Tobacco comments: QUIT IN JUNE 2019 Vaping Use Vaping Use: Never used Substance Use Topics Alcohol use: Yes Comment: SOMETIMES Drug use: Never MEDICATIONS Allergies: Allergies Allergen Reactions Ciprofloxacin Headache Alendronate Bee Venom Protein (Honey Bee) feels like my eyes are spinning around Jlxrepwu-Dywrrrrplqi-Jjacttkbe Oxycodone Headache I just don't want to take it Home Medications: Prior to Admission medications Medication Sig Start Date End Date Taking? Authorizing Provider amLODIPine (NORVASC) 10 mg tablet Take 1 tablet (10 mg total) by mouth in the morning. Patient taking differently: Take 0.5 tablets (5 mg total) by mouth in the morning. Hold if SBP <100 . 04/17/23 04/16/24 Yes Artemio Ray MD carvediloL (COREG) 25 mg tablet Take 1 tablet (25 mg total) by mouth in the morning and 1 tablet (25 mg total) before bedtime. Patient taking differently: Take 1 tablet (25 mg total) by mouth in the morning and 1 tablet (25 mg total) before bedtime. Hold if SBP <100. 04/16/23 04/15/24 Yes Artemio Ray MD citalopram (CeleXA) 20 mg tablet Take 1 tablet (20 mg total) by mouth in the morning. Yes Not In System Ref Prov lisinopriL (PRINIVIL,ZESTRIL) 40 mg tablet Take 1 tablet (40 mg total) by mouth in the morning and 1 tablet (40 mg total) before bedtime. Patient taking differently: Take 1 tablet (40 mg total) by mouth in the morning. Hold if SBP <100 . 04/16/23 04/15/24 Yes Artemio Ray MD melatonin (CIRCADIN) tablet Take 1 tablet (3 mg total) by mouth nightly. Yes Not In System Ref Prov metoprolol tartrate (LOPRESSOR) 25 mg tablet Take 1 tablet (25 mg total) by mouth in the morning and 1 tablet (25 mg total) before bedtime. Hold if SBP <100 . 05/03/19 Yes Not In System Ref Prov pantoprazole (PROTONIX) 40 mg EC tablet Take 1 tablet (40 mg total) by mouth every morning before breakfast. 06/04/22 Yes Not In System Ref Prov potassium chloride (K-TAB,KLOR-CON) 10 MEQ CR tablet Take 2 tablets (20 mEq total) by mouth in the morning and 2 tablets (20 mEq total) before bedtime. 02/05/23 Yes Not In System Ref Prov hydroCHLOROthiazide (HYDRODIURIL) 25 mg tablet Take 1 tablet (25 mg total) by mouth daily. Patient not taking: Reported on 06/13/2023 03/17/19 Not In System Ref Prov potassium chloride (KLOR-CON) 20 mEq packet Klor-Con 20 mEq oral packet Take 1 packet 4 times a day by oral route. Patient not taking: Reported on 04/02/2023 Not In System Ref Prov Current Medications: cefTRIAXone (ROCEPHIN) IV, 1,000 mg, intravenous, Q24H metroNIDAZOLE, 500 mg, intravenous, Q8H sodium chloride, 3 mL, intravenous, Q12H DIO PRNs: calcium gluconate, 3,000 mg, PRN calcium gluconate, 4,000 mg, PRN calcium gluconate, 2,000 mg, PRN dextrose, 15 g, PRN dextrose 5 % in water, 100 mL/hr, Continuous PRN dextrose 50 % in water (D50W), 25 mL, PRN glucagon (human recombinant), 1 mg, PRN magnesium sulfate, 2,000 mg, PRN magnesium sulfate, 4,000 mg, PRN potassium chloride in water, 10 mEq, PRN sodium phosphate IV, 20 mmol, PRN Or sodium phosphate IV - central line, 20 mmol, PRN Or sod phos di, mono-K phos mono, 2 tablet, PRN sodium chloride, 3 mL, PRN sodium chloride, 25 mL, PRN sodium chloride 0.9 %, 20 mL/hr, Continuous PRN REVIEW OF SYSTEMS See HPI, otherwise ROS negative as below CONSTITUTIONAL: negative HEENT: negative RESPIRATORY: negative CARDIOVASCULAR: negative GASTROINTESTINAL: as in HPI GENITOURINARY: negative INTEGUMENT/BREAST: negative HEMATOLOGIC/LYMPHATIC: negative ALLERGIC/IMMUNOLOGIC: negative ENDOCRINE: negative MUSCULOSKELETAL: negative NEUROLOGICAL: negative BEHAVIOR/PSYCH: negative OBJECTIVE DATA Vitals: BP (!) 123/95 Pulse 85 Temp 36.7 C (98.1 F) (Oral) Resp 18 Wt 65.1 kg (143 lb 8.3 oz) SpO2 96% BMI 24.64 kg/m GEN: alert, NAD HEENT: EOMI, PERRL, oropharynx non-erythematous without exudate, no oral lesions CV: RRR, no murmur, rub, gallop, no edema PULM: CTAB, symmetric chest rise, no accessory muscle use ABD: soft, non-tender, non-distended, G-tube in place NEURO: no focal deficits, moves all 4 extremities spontaneously SKIN: no rashes PSYCH: normal affect LABS AND IMAGING CBC: Lab Results Component Value Date WBC 8.8 06/13/2023 HGB 11.4 (L) 06/13/2023 HCT 33.9 (L) 06/13/2023 MCV 85 06/13/2023 RDW 16.5 (H) 06/13/2023 PLT 66 (L) 06/13/2023 CMP: Lab Results Component Value Date K 3.1 (L) 06/13/2023 CL 110 (H) 06/13/2023 CO2 25 06/13/2023 BUN 17 06/13/2023 GLU 82 06/13/2023 GLU 132 (H) 04/17/2023 Lipase: No components found for: LIP Amylase: No results found for: JODY Ionized Calcium: No components found for: IONCA Magnesium: Lab Results Component Value Date MG 1.4 (L) 06/13/2023 Phosphorus: No components found for: PO4 PT/INR: Lab Results Component Value Date INR 1.4 (H) 06/13/2023 TSH: No results found for: TSH VITAMIN B12: No components found for: B12 FOLATE: Lab Results Component Value Date FOLATE 12.0 04/09/2023 IRON: No results found for: FE Iron Saturation: No components found for: PERCENTFESAT TIBC: Lab Results Component Value Date TIBC 217 (L) 04/09/2023 FERRITIN: Lab Results Component Value Date FERRITIN 618 (H) 04/09/2023 MICRO Blood Culture: No components found for: CBLOOD , CFUNGUSBL Stool Culture: No components found for: CSTOOL IMAGING: No results found. ASSESSMENT AND PLAN Ellen Chan is a 78 y.o. female who was recently admitted in April secondary to intracranial hemorrhage, during that admission requiring PEG who presents from care home for hematochezia. History is obtained from chart review and care team given patient is altered. Patient was taken to [facility] CT scan was performed that revealed sigmoid and rectum thickening, with possible active arterial extravasation. Hemoglobin was 13 on arrival at [place]. She was then transferred to [facility] for escalation of care. She has had no further episodes of hematochezia. Hemoglobin is stable. Hemodynamics are stable. No documentation of anticoagulation in her chart. Patient denies abdominal pain, nausea, vomiting. 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 POA is okay with reversing code status for duration of colonoscopy to full code. Monitor for hematochezia Trend hemoglobin and transfuse as needed Recommend vascular surgery consultation given numerous vascular findings on CT This consult will be discussed with attending physician Dr. Ivory. If you have any questions please feel free to contact the GI Service. Thank you for allowing us to participate in the care of Ellen Chan. [place] [facility] 6 am to 4 pm weekdays in house 4 pm to 6 am or weekends please contact the centralized traffic control operator to page the fellow spa concierge [facility] [employer] Work Phone: 06-14-2023 History and physical note H&P reviewed. The patient was examined and there are no changes to the H&P. Associated attestation - Олег Long MD - 06/14/2023 1:54 PM EST H&P reviewed. The patient was examined and there are no changes to the H&P. Source Note - Simeon Upton DO - 06/13/2023 10:10 AM EST [facility] Teaching GI Service Initial Gastroenterology/Hepatology Consultation Note IDENTIFYING DATA PATIENT: Ellen Chan ADMIT DATE: 06/13/2023 TIME OF EVALUATION: 06/13/2023 10:10 AM Reason for Consult: Hematochezia Requesting Physician: Emilee Marie DO HISTORY OF PRESENT ILLNESS Ellen Chan is a 78 y.o. female who was recently admitted in April secondary to intracranial hemorrhage, during that admission requiring PEG who presents from care home for hematochezia. History is obtained from chart review and care team given patient is altered. Patient was taken to [facility] CT scan was performed that revealed sigmoid and rectum thickening, with possible active arterial extravasation. Hemoglobin was 13 on arrival at [place]. She was then transferred to [facility] for escalation of care. She has had no further episodes of hematochezia. Hemoglobin is stable. Hemodynamics are stable. No documentation of anticoagulation in her chart. Patient denies abdominal pain, nausea, vomiting. GI HISTORY SUMMARY TABLE Last EGD Last colonoscopy Primary GI physician PAST MEDICAL, SURGICAL, FAMILY, and SOCIAL HISTORY Past Medical History: Diagnosis Date AAA [...] 04/11/2023 Performed by Dae Bo MD at [facility] HYSTERECTOMY KNEE ARTHROSCOPY Left KNEE ARTHROSCOPY Left REMOVE METAL 2014 LAPAROSCOPIC CHOLECYSTECTOMY N/A 05/26/2019 Performed by Caro Pollard DO at [facility] WRIST FRACTURE Right Pins No family history on file. Social History: Social History Tobacco Use Smoking status: Former Smokeless tobacco: Never Tobacco comments: QUIT IN JUNE 2019 Vaping Use Vaping Use: Never used Substance Use Topics Alcohol use: Yes Comment: SOMETIMES Drug use: Never MEDICATIONS Allergies: Allergies Allergen Reactions Ciprofloxacin Headache Alendronate Bee Venom Protein (Honey Bee) feels like my eyes are spinning around Dzsfajpa-Ersnykqkqbe-Fvvhvxoeq Oxycodone Headache I just don't want to take it Home Medications: Prior to Admission medications Medication Sig Start Date End Date Taking? Authorizing Provider amLODIPine (NORVASC) 10 mg tablet Take 1 tablet (10 mg total) by mouth in the morning. Patient taking differently: Take 0.5 tablets (5 mg total) by mouth in the morning. Hold if SBP <100 . 04/17/23 04/16/24 Yes Artemio Ray MD carvediloL (COREG) 25 mg tablet Take 1 tablet (25 mg total) by mouth in the morning and 1 tablet (25 mg total) before bedtime. Patient taking differently: Take 1 tablet (25 mg total) by mouth in the morning and 1 tablet (25 mg total) before bedtime. Hold if SBP <100. 04/16/23 04/15/24 Yes Artemio Ray MD citalopram (CeleXA) 20 mg tablet Take 1 tablet (20 mg total) by mouth in the morning. Yes Not In System Ref Prov lisinopriL (PRINIVIL,ZESTRIL) 40 mg tablet Take 1 tablet (40 mg total) by mouth in the morning and 1 tablet (40 mg total) before bedtime. Patient taking differently: Take 1 tablet (40 mg total) by mouth in the morning. Hold if SBP <100 . 04/16/23 04/15/24 Yes Artemio Ray MD melatonin (CIRCADIN) tablet Take 1 tablet (3 mg total) by mouth nightly. Yes Not In System Ref Prov metoprolol tartrate (LOPRESSOR) 25 mg tablet Take 1 tablet (25 mg total) by mouth in the morning and 1 tablet (25 mg total) before bedtime. Hold if SBP <100 . 05/03/19 Yes Not In System Ref Prov pantoprazole (PROTONIX) 40 mg EC tablet Take 1 tablet (40 mg total) by mouth every morning before breakfast. 06/04/22 Yes Not In System Ref Prov potassium chloride (K-TAB,KLOR-CON) 10 MEQ CR tablet Take 2 tablets (20 mEq total) by mouth in the morning and 2 tablets (20 mEq total) before bedtime. 02/05/23 Yes Not In System Ref Prov hydroCHLOROthiazide (HYDRODIURIL) 25 mg tablet Take 1 tablet (25 mg total) by mouth daily. Patient not taking: Reported on 06/13/2023 03/17/19 Not In System Ref Prov potassium chloride (KLOR-CON) 20 mEq packet Klor-Con 20 mEq oral packet Take 1 packet 4 times a day by oral route. Patient not taking: Reported on 04/02/2023 Not In System Ref Prov Current Medications: cefTRIAXone (ROCEPHIN) IV, 1,000 mg, intravenous, Q24H metroNIDAZOLE, 500 mg, intravenous, Q8H sodium chloride, 3 mL, intravenous, Q12H DIO PRNs: calcium gluconate, 3,000 mg, PRN calcium gluconate, 4,000 mg, PRN calcium gluconate, 2,000 mg, PRN dextrose, 15 g, PRN dextrose 5 % in water, 100 mL/hr, Continuous PRN dextrose 50 % in water (D50W), 25 mL, PRN glucagon (human recombinant), 1 mg, PRN magnesium sulfate, 2,000 mg, PRN magnesium sulfate, 4,000 mg, PRN potassium chloride in water, 10 mEq, PRN sodium phosphate IV, 20 mmol, PRN Or sodium phosphate IV - central line, 20 mmol, PRN Or sod phos di, mono-K phos mono, 2 tablet, PRN sodium chloride, 3 mL, PRN sodium chloride, 25 mL, PRN sodium chloride 0.9 %, 20 mL/hr, Continuous PRN REVIEW OF SYSTEMS See HPI, otherwise ROS negative as below CONSTITUTIONAL: negative HEENT: negative RESPIRATORY: negative CARDIOVASCULAR: negative GASTROINTESTINAL: as in HPI GENITOURINARY: negative INTEGUMENT/BREAST: negative HEMATOLOGIC/LYMPHATIC: negative ALLERGIC/IMMUNOLOGIC: negative ENDOCRINE: negative MUSCULOSKELETAL: negative NEUROLOGICAL: negative BEHAVIOR/PSYCH: negative OBJECTIVE DATA Vitals: BP (!) 123/95 Pulse 85 Temp 36.7 C (98.1 F) (Oral) Resp 18 Wt 65.1 kg (143 lb 8.3 oz) SpO2 96% BMI 24.64 kg/m GEN: alert, NAD HEENT: EOMI, PERRL, oropharynx non-erythematous without exudate, no oral lesions CV: RRR, no murmur, rub, gallop, no edema PULM: CTAB, symmetric chest rise, no accessory muscle use ABD: soft, non-tender, non-distended, G-tube in place NEURO: no focal deficits, moves all 4 extremities spontaneously SKIN: no rashes PSYCH: normal affect LABS AND IMAGING CBC: Lab Results Component Value Date WBC 8.8 06/13/2023 HGB 11.4 (L) 06/13/2023 HCT 33.9 (L) 06/13/2023 MCV 85 06/13/2023 RDW 16.5 (H) 06/13/2023 PLT 66 (L) 06/13/2023 CMP: Lab Results Component Value Date K 3.1 (L) 06/13/2023 CL 110 (H) 06/13/2023 CO2 25 06/13/2023 BUN 17 06/13/2023 GLU 82 06/13/2023 GLU 132 (H) 04/17/2023 Lipase: No components found for: LIP Amylase: No results found for: JODY Ionized Calcium: No components found for: IONCA Magnesium: Lab Results Component Value Date MG 1.4 (L) 06/13/2023 Phosphorus: No components found for: PO4 PT/INR: Lab Results Component Value Date INR 1.4 (H) 06/13/2023 TSH: No results found for: TSH VITAMIN B12: No components found for: B12 FOLATE: Lab Results Component Value Date FOLATE 12.0 04/09/2023 IRON: No results found for: FE Iron Saturation: No components found for: PERCENTFESAT TIBC: Lab Results Component Value Date TIBC 217 (L) 04/09/2023 FERRITIN: Lab Results Component Value Date FERRITIN 618 (H) 04/09/2023 MICRO Blood Culture: No components found for: CBLOOD , CFUNGUSBL Stool Culture: No components found for: CSTOOL IMAGING: No results found. ASSESSMENT AND PLAN Ellen Chan is a 78 y.o. female who was recently admitted in April secondary to intracranial hemorrhage, during that admission requiring PEG who presents from care home for hematochezia. History is obtained from chart review and care team given patient is altered. Patient was taken to [facility] CT scan was performed that revealed sigmoid and rectum thickening, with possible active arterial extravasation. Hemoglobin was 13 on arrival at [place]. She was then transferred to [facility] for escalation of care. She has had no further episodes of hematochezia. Hemoglobin is stable. Hemodynamics are stable. No documentation of anticoagulation in her chart. Patient denies abdominal pain, nausea, vomiting. 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 POA is okay with reversing code status for duration of colonoscopy to full code. Monitor for hematochezia Trend hemoglobin and transfuse as needed Recommend vascular surgery consultation given numerous vascular findings on CT This consult will be discussed with attending physician Dr. Ivory. If you have any questions please feel free to contact the GI Service. Thank you for allowing us to participate in the care of Ellen Chan. [place] [facility] 6 am to 4 pm weekdays in house 4 pm to 6 am or weekends please contact the centralized traffic control operator to page the fellow spa concierge Images from the original note were not included. Chief Complaint: Hematochezia History of Present Illness: Ellen Chan is a 78 y.o. female who presents from [facility] for escalation of care. Patient had 1 episode of hematochezia at care home where she resides prompting transport to [facility] for workup. Per hospital records patient had CT [facility] showing sigmoid and rectum thickening with possible active arterial extravasation. Hemoglobin on intake at [place] was 13. Patient was previously admitted to [facility] in April due to intracranial hemorrhage. During that admission patient required trach and had PEG tube placed. Patient still currently has PEG tube in place, but care home staff reports it has not recently been used because patient tolerates oral intake well. Does not take blood thinners at baseline. On questioning today patient denies abdominal pain, nausea and vomiting. Per nursing staff there have been no further episodes of hematochezia since admission earlier today. A 12 point ROS is negative unless otherwise stated in HPI Past Medical History: Diagnosis Date AAA (abdominal aortic aneurysm) ([facility]) was surgically taken care of 09/2018 GERD (gastroesophageal reflux disease) Hypertension Upper respiratory infection 05/2019 Visual impairment glasses Past Surgical History: Procedure Laterality Date BREAST BIOPSY BREAST SURGERY 1989 BREAST BX CARDIAC SURGERY STENT 2018 CARDIAC SURGERY LEFT VENTRICLE STENT 2018 DILATION AND CURETTAGE, DIAGNOSTIC / THERAPEUTIC 1986 ESOPHAGOGASTRODUODENOSCOPY INSERTION PEG TUBE N/A 04/11/2023 Performed by Dae Bo MD at [facility] HYSTERECTOM[facility] KNEE ARTHROSCOPY Left KNEE ARTHROSCOPY Left REMOVE METAL 2014 LAPAROSCOPIC CHOLECYSTECTOMY N/A 05/26/2019 Performed by Caro Pollard DO at [facility] ORIF WRIST FRACTURE Right Pins Allergies Allergen Reactions Ciprofloxacin Headache Alendronate Bee Venom Protein (Honey Bee) feels like my eyes are spinning around Rjccbnbx-Aqpzcswlujn-Iffwojtvl Oxycodone Headache I just don't want to take it Current Facility-Administered Medications: calcium gluconate 3,000 mg in sodium chloride 0.9 % 100 mL IVPB, 3,000 mg, intravenous, PRN, Austin Marino MD calcium gluconate 4,000 mg in sodium chloride 0.9 % 250 mL IVPB, 4,000 mg, intravenous, PRN, Austin Marino MD calcium gluconate IVPB 2000 mg/100 mL (20 mg/mL premix), 2,000 mg, intravenous, PRN, Austin Marino MD cefTRIAXone (ROCEPHIN) 1,000 mg in sodium chloride 0.9 % 50 mL IVPB-MBP, 1,000 mg, intravenous, Q24H, Glory Richmond MD, Stopped at 06/13/23 0608 dextrose (GLUTOSE) 40 % gel 15 g, 15 g, oral, PRN, Glory Richmond MD dextrose 5 % (D5W) infusion, 100 mL/hr, intravenous, Continuous PRN, Glory Richmond MD dextrose 50 % in water (D50W) 50% solution 25 mL, 25 mL, intravenous, PRN, Glory Richmond MD glucagon HCL injection 1 mg, 1 mg, intramuscular, PRN, Glory Richmond MD magnesium sulfate IVPB 2000 mg/50 mL in iso-osmotic water (40 mg/mL premix), 2,000 mg, intravenous, PRN, Glory Richmond MD magnesium sulfate IVPB 4000 mg/100 mL in iso-osmotic water (40 mg/mL premix), 4,000 mg, intravenous, PRN, Glory Richmond MD, Stopped at 06/13/23 1145 metroNIDAZOLE (FLAGYL) IVPB 500 mg/100 mL in iso-osmotic sodium chloride (5 mg/mL premix), 500 mg, intravenous, Q8H, Glory Richmond MD, Stopped at 06/13/23 0716 [COMPLETED] pantoprazole (PROTONIX) injection 80 mg, 80 mg, intravenous, Once, 80 mg at 06/13/23 0847 AND pantoprazole (PROTONIX) 80 mg in sodium chloride 0.9 % 100 mL (0.8 mg/mL) infusion, 8 mg/hr, intravenous, Continuous, Austin Marino MD, Last Rate: 10 mL/hr at 06/13/23 1033, 8 mg/hr at 06/13/23 1033 polyethylene glycol-electrolytes (NULYTELY) solution 4,000 mL, 4,000 mL, g-tube, Once, Simeon Upton, potassium chloride IVPB 10 mEq/100 mL in water (0.1 mEq/mL premix), 10 mEq, intravenous, PRN, Glory Richmond MD, Last Rate: 100 mL/hr at 06/13/23 1209, 10 mEq at 06/13/23 1209 sodium phosphate 20 mmol in sodium chloride 0.9 % 250 mL IVPB, 20 mmol, intravenous, PRN OR sodium phosphate 20 mmol in sodium chloride 0.9 % 100 mL IVPB, 20 mmol, intravenous, PRN OR sod phos di, mono-K phos mono (K-PHOS NEUTRAL) 250 mg tablet 2 tablet, 2 tablet, oral, PRN, Austin Marino MD sodium chloride 0.9 % flush 3 mL, 3 mL, intravenous, PRN, Glory Richmond MD sodium chloride 0.9 % flush 3 mL, 3 mL, intravenous, Q12H DIO, Glory Richmond MD, 3 mL at 06/13/23 0847 sodium chloride 0.9 % flush bag, 25 mL, intravenous, PRN, Glory Richmond MD sodium chloride 0.9 % infusion, 20 mL/hr, intravenous, Continuous PRN, Glory Richmond MD sodium chloride 0.9 % infusion, 100 mL/hr, intravenous, Continuous, Austin Marino MD, Last Rate: 100 mL/hr at 06/13/23 0809, 100 mL/hr at 06/13/23 0809 Social History Socioeconomic History Marital status: Spouse [...] on file Interpersonal Safety: Not on file Housing Instability: Not on file No family history on file. Vital Signs: Blood pressure (!) 134/96, pulse 80, temperature 36.4 C (97.6 F), temperature source Oral, resp. rate 16, weight 65.1 kg (143 lb 8.3 oz), SpO2 96%. Physical Exam: Physical Exam Constitutional: General: She is not in acute distress. Appearance: Normal appearance. She is not ill-appearing. HENT: Head: Normocephalic. Mouth/Throat: Mouth: Mucous membranes are moist. Cardiovascular: Rate and Rhythm: Normal rate. Pulmonary: Effort: Pulmonary effort is normal. Abdominal: General: Abdomen is flat. There is no distension. Palpations: Abdomen is soft. Tenderness: There is no abdominal tenderness. Skin: General: Skin is warm and dry. Capillary Refill: Capillary refill takes less than 2 seconds. Neurological: General: No focal deficit present. Mental Status: She is alert. Labs: Lab Results Component Value Date WBC 8.8 06/13/2023 HGB 11.4 (L) 06/13/2023 HCT 33.9 (L) 06/13/2023 MCV 85 06/13/2023 PLT 66 (L) 06/13/2023 Lab Results Component Value Date GLU 82 06/13/2023 CALCIUM 8.9 06/13/2023 K 3.1 (L) 06/13/2023 CO2 25 06/13/2023 CL 110 (H) 06/13/2023 BUN 17 06/13/2023 CREATININE 0.53 06/13/2023 No results found for: AMYLASE Lab Results Component Value Date LIPASE 10 (L) 05/19/2019 Lab Results Component Value Date ALT 6 06/13/2023 AST 11 06/13/2023 ALKPHOS 45 06/13/2023 Lab Results Component Value Date INR 1.4 (H) 06/13/2023 INR 1.1 04/09/2023 INR 1.0 04/01/2023 PROTIME 15.6 (H) 06/13/2023 PROTIME 13.3 (H) 04/09/2023 PROTIME 12.2 04/01/2023 Imaging: CT CTA ABD AND PELVIS 06/13/2023 Addendum 06/13/2023 12:50 PM *ADDENDUM* ADDENDUM: 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 There is calcification along the wall and intimal flap and there is no surrounding fluid, blood, inflammatory change or irregular intraluminal thrombus There is a similar short dissection in the left superficial femoral artery which looks unchanged and with similar characteristics aside from no significant calcification - Finalized by Adriel Méndez MD on 06/13/2023 12:50 PM Narrative HISTORY and Tech Notes: Mesenteric ischemia, acute Follow-up colitis PROCEDURE: CT angiogram abdomen pelvis Study is done with IV contrast Arterial phase and venous phase imaging Two-dimensional source data images submitted in combination with three-dimensional and/or maximum intensity projections and reconstructions Automated exposure control was utilized COMPARISON: June 10 FINDINGS: There is significant tortuosity of the distal descending thoracic aorta and the abdominal aorta There is an endovascular graft stent in the descending thoracic aorta and also in the abdominal aorta There is no visible endoleak or periaortic hematoma The endograft stents extend into the common iliac arteries and right external iliac artery 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 There is only mild stenosis at the origin The SMA enhances There is not significant stenosis at the origin There is mild irregularity, thrombus and narrowing of the proximal to mid segment without occlusion There is moderate calcification multifocal stenosis in the renal arteries On venous phase imaging the SMV enhances There is mild narrowing due to the compression of the abdominal aortic aneurysm in the mid abdomen The splenic vein enhances The portal vein and branches enhance The hepatic veins enhance The hepatic veins enhance UPPER ABDOMEN No splenomegaly. Granuloma changes Left greater than right renal cysts There is a complex lesion in the right kidney with a dense or enhancing component measuring around 2 cm. Follow-up surveillance imaging in 6 months suggested No peripancreatic fluid collections. There is pancreatic atrophy There is suggestion of a tiny cyst in the pancreatic body There is no visible ductal dilatation There are not pancreatic calcifications No suspicious liver mass. No significant bile duct dilatation or perihepatic fluid GB removed No fluid collection Slight prominence of the CBD may be physiologic after cholecystectomy assuming no jaundice or abnormal bilirubin levels No suspicious adrenal mass seen No large hiatal hernia There is a PEG tube in place without visible complication of gastric wall looks prominent but it may be exaggerated by lack of distention PELVIS No hydronephrosis . Lenz in place Nondilated bladder There is some dense material in the dependent portion of the bladder No sign of a bowel obstruction. There is persistent severe bowel wall thickening in the rectum and rectosigmoid region with adjacent fluid and fat stranding and hyperemia, similar to the previous exam The rest of the large and small bowel do not look affected No discrete abscess is seen at this point . No retroperitoneal bleed or suspicious adenopathy. No sign to suggest acute appendicitis. LUNG BASE EVALUATION no basilar consolidation or significant effusion. . BONE RECONSTRUCTIONS Chronic appearing deformity at L4 No aggressive bone destruction. . Impression Mild irregularity and stenosis along the proximal and mid SMA without occlusion Dilated tortuous thoracic and abdominal aorta with endovascular graft as detailed above. 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 No significant stenosis or irregular thrombus Hepatic and portal veins look patent. There is some mass effect on the SMV due to the abdominal aortic aneurysm sac causing some narrowing and compression of the lumen without visible thrombus - Severe inflammatory change within and around the rectum and rectosigmoid junction with adjacent fat stranding and fluid accumulation but no discrete abscess or bowel obstruction at this point Follow-up suggested prove clearing and normalization and exclude underlying neoplasm or other pathology Complex lesion in the right kidney with a 2 cm dense hemorrhagic or enhancing nodular component adjacent to the more simple cystic component superior to that. Follow-up surveillance imaging within 6 months suggested in attempt to prove stability or benign imaging characteristics. MRI might be useful but may be subject to extensive artifact from the endograft Slight prominence of the CBD thought likely to be physiologic after cholecystectomy in the absence of abnormal bilirubin levels or jaundice . . All CT scans at this facility use dose modulation, iterative reconstruction, and/or weight based dosing when appropriate to reduce radiation dose to as low as reasonably achievable. Finalized by Adriel Méndez MD on 06/13/2023 11:52 AM Assessment: Ellen Chan is a 78 y.o.female with PMH AAA s/p EVAR, GERD, HTN, prior ICH s/p trach (now reversed) and PEG presenting with hematochezia. Hb stable at 11.4, CT scan read as sigmoid/rectal inflammation with possible active extravasation consistent with ischemic colitis. Plan: GI on board, planning for colonoscopy 06/13 to evaluate for left sided colitis/hematochezia. OK for CLD from general surgery standpoint, defer to primary/GI team. Continue to monitor hemoglobin, consider transfusion if less than 7 Continue to monitor and replace electrolytes as needed Pain and nausea control PRN DVT ppx: mechanical, hold chemical Adriel Sandhu MS3 I have examined the patient and verified the history of present illness and performed the physical exam and medical decision making. I have verified all of the medical student's documentation for this encounter. Kaylene Ramírez MD General Surgery Resident PGY1 Acute Care Surgery/ACS 6a-6p pager #[phone] 6p-6a pager #[phone] Associated attestation - Estevan Duff DO - 06/13/2023 1:55 PM EST General Surgery Attending Attestation: I saw the patient. I participated and was physically present during the critical/felix portions of the service. I was directly involved in the management and treatment plan of the patient. I reviewed the resident's note. Additional Notes/Findings: Abdomen is soft and nontender. Hemoglobin stable. Gastroenterology note and plan reviewed. Await colonoscopy results. Will continue to follow along with you. Estevan Duff D.O. [facility]-4 HISTORY AND PHYSICAL Date of Service: 06/13/2023 Patient Name: Ellen Chan : 1945 PCP: NITHYA MALLOY MD Chief Complaint: blood in stool HPI: Ellen Chan is a 78 y.o. female wit [facility] who was recently discharged from [facility] 04/16/23 after thalamic intracranial hemorrhage to LTC facility. She initially presented to [facility] on 06/10 due to care home staff concerns that she was having blood in her stool. CT abdomen at [facility] revealed active arterial extravasation within the rectum and findings concerning for ischemic colitis. Hemoglobin was between 11-13, not clear if she received any transfusion there. She was transferred to [facility] for vascular, IR, general surgery evaluation. On my evaluation patient is oriented x2, which is her baseline. She denies any abdominal pain, endorses mild nausea and thinks that she may have had blood in her stool but does not remember much. Denies dizziness lightheadedness, shortness of breath, palpitations. Vitals on admission are stable within normal limits. Past Medical History: Past Medical History: Diagnosis Date AAA (abdominal aortic aneurysm) ([facility]) was surgically taken care of [...] 04/11/2023 Performed by Dae Bo MD at [facility] HYSTERECTOMY KNEE ARTHROSCOPY Left KNEE ARTHROSCOPY Left REMOVE METAL 2014 LAPAROSCOPIC CHOLECYSTECTOMY N/A 05/26/2019 Performed by Caro Pollard DO at [facility] ORIF WRIST FRACTURE Right Pins Home Medications: Prior to Admission medications Medication Sig Start Date End Date Taking? Authorizing Provider amLODIPine (NORVASC) 10 mg tablet Take 1 tablet (10 mg total) by mouth in the morning. 04/17/23 04/16/24 Artemio Ray MD carvediloL (COREG) 25 mg tablet Take 1 tablet (25 mg total) by mouth in the morning and 1 tablet (25 mg total) before bedtime. 04/16/23 04/15/24 Artemio Ray MD hydroCHLOROthiazide (HYDRODIURIL) 25 mg tablet Take 1 tablet (25 mg total) by mouth daily. 03/17/19 Not In System Ref Prov lisinopriL (PRINIVIL,ZESTRIL) 40 mg tablet Take 1 tablet (40 mg total) by mouth in the morning and 1 tablet (40 mg total) before bedtime. 04/16/23 04/15/24 Artemio Ray MD metoprolol tartrate (LOPRESSOR) 25 mg tablet Take 1 tablet (25 mg total) by mouth in the morning and 1 tablet (25 mg total) before bedtime. 05/03/19 Not In System Ref Prov pantoprazole (PROTONIX) 40 mg EC tablet Take 1 tablet (40 mg total) by mouth every morning before breakfast. 06/04/22 Not In System Ref Prov potassium chloride (K-TAB,KLOR-CON) 10 MEQ CR tablet Take 2 tablets (20 mEq total) by mouth in the morning and 2 tablets (20 mEq total) before bedtime. 02/05/23 Not In System Ref Prov potassium chloride (KLOR-CON) 20 mEq packet Klor-Con 20 mEq oral packet Take 1 packet 4 times a day by oral route. Patient not taking: Reported on 04/02/2023 Not In System Ref Prov Allergies: Ciprofloxacin, Alendronate, Bee venom protein (honey bee), Jflhbuqj-udoxkhzboxo-uucbkxyou, and Oxycodone Social History: reports that she has quit smoking. She has never used smokeless tobacco. She reports current alcohol use. She reports that she does not use drugs. Family History: No family history on file. Review of Systems: Review of Systems Unable to perform ROS: Dementia Vital Signs and Physical Exam: There were no vitals taken for this visit. No intake or output data in the 24 hours ending 06/13/23 0318 Admission weight: Physical Exam Constitutional: Comments: Alert oriented x2 HENT: Head: Normocephalic and atraumatic. Cardiovascular: Rate and Rhythm: Normal rate and regular rhythm. Pulses: Normal pulses. Heart sounds: Normal heart sounds. Pulmonary: Effort: Pulmonary effort is normal. Breath sounds: Normal breath sounds. Abdominal: General: Abdomen is flat. Palpations: Abdomen is soft. Musculoskeletal: Right lower leg: No edema. Left lower leg: No edema. Neurological: Comments: Left sided residual weakness Labs/Imaging: No results found for this or any previous visit (from the past 24 hour(s)). Microbiology Results No results found for the last 168 hours. No results found. 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 Every effort was made to ensure accuracy; however, inadvertent computerized insurance sales manager errors may be present. Glory Richmond PGY-2 Internal Medicine [facility] 06/13/23 Associated attestation - Jude Marti MD - 06/13/2023 2:41 PM EST ATTENDING ATTESTATION I personally examined the patient on rounds with the resident. I repeated the felix components of the exam. I confirm the note and agree with the assessment and plan. Please note there may be additional comments below. Comments: Delayed entry. The patient was examined earlier this morning on rounds. Admitted for GI bleed, acute blood loss anemia and concern regarding ischemic colitis on imaging. Flagyl and rocephin started. Hb seems stable this morning, will monitor closely. GI consulted. General surgery input noted as well. 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 Incidental R renal mass/complex cyst. This will need outpatient follow up with Urology/follow up imaging. She recently had ICH in L thalamus (05/01) with residual weakness. Her dementia/memory impairment complicates her care and exam. - JUDE MARTI MD 06/13/23 2:33 PM documented in this encounter [facility] 06-14-2023 Nurse Note Spoke with Surgery about using the female external catheter on the patients rectum during the bowel prep. They gave the okay to use it for that since the patient is bed bound and has right sided hemiplegia and a lenz catheter. I have called and talked to nursing staff at [facility]. Staff states that the patient had advanced to a regular diet with thin liquids and was drinking well with a straw. She was taking her pills crushed in puree and was tolerating it well. Staff states that they were not currently using her PEG tube for anything. documented in this encounter [facility] 06-14-2023 Plan of care note Problem: Pain Goal: Patient goal is pain [...] Note: Evaluation of progress towards goal: Patients pain is well controlled with medications and alternative methods. Problem: Safety Goal: Patient will be injury [...] Evaluation of progress towards goal: Patient has no new injuries. Proper safe patient handling equipment is utilized to provide safe movements. Problem: Infection Goal: Absence of infection during [...] entry representative in use of appropriate isolation precautions for identified infection/symptoms 8. Provide and discuss with patient/patient data entry representative on educational MDRO sheet 9. Encourage and monitor nutritional status daily and consult professional fighter if indicated 10. Implement neutropenic guidelines as needed 11. Review exposure to history of communicable disease and recent travel history on admission 12. Encourage annual influenza vaccine 13. Encourage pneumonia vaccine Outcome: Progressing Note: Evaluation of progress towards goal: Patient has no new signs or symptoms of infection. Standard precautions are used by staff to prevent the spread of infection. Patients vital signs are within normal limits. Problem: Potential for Compromised Skin Integrity Goal: [...] Note: Evaluation of progress towards goal: Skin assessments were performed, patient was kept clean and dry throughout the shift, lotions, creams, and powders were applied as needed. Problem: Moderate - High Risk Fall Score Description: [place] Fall Score of =/> 25 or indicated by [facility] Assessment Goal: Patient should be free from fall Description: Interventions: 1. [place] to environment 2. Hourly rounds addressing the [...] how to maintain a safe environment during visitation times (notify nurse prior to leaving bedside) 25. Consider appropriateness of medical or non-medical records auditor 26. Set up voiding schedule as appropriate (every 2 hours) Outcome: Progressing Note: Evaluation of progress towards goal: Patient has had no new falls. Patient is oriented to their environment, [facility] equipment is available, [facility] 06-13-2023 Progress note Formatting of t his note is different from the original. DISCHARGE PLANNING NOTE Evaluation HELMET COVERER met with pt and her family at bedside, introduced self and explained role. Pt admitted with Acute lower GI bleeding [K92.2] . Past Medical History: Diagnosis Date AAA (abdominal aortic aneurysm) ([facility]) was surgically taken care of 09/2018 GERD (gastroesophageal reflux disease) Hypertension Upper respiratory infection 05/2019 Visual impairment glasses Pt's granddaughter Roula is at the bedside and is pt's DPOA. Roula and family all agree that pt will be returning to [facility] at discharge where she has been staying since she had a CVA. Patient does not endorse any financial concerns. Patient denies need for food/prescription medication assistance resources. Pt denies use of nicotine, ETOH nor drugs. Patient's pcp is NITHYA MALLOY MD PCP and pharmacy verified and updated. PCP was added to the follow up providers so pcp will receive summary of care at discharge. HELMET COVERER explained the importance of close follow up stating need for follow up in 1-2 weeks. Patient verbalized understanding and states she will follow up as indicated. Patient denies any further needs at this time. HELMET COVERER will continue to monitor should any needs arise. - GAURAV Astorga 06/13/23 4:01 PM [facility] 06-13-2023 Consult note Associated Order (s): IP CONSULT TO VASCULAR SURGERY Images from the original note were not included. 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 White or female admitted with GI bleed . She has a history significant for AAA that was surgically repaired September 2018, GERD, hypertension and visual impairment. presented initially to [facility] with complain of hematochezia at a care home where she resides. CT abdomen and pelvis at [facility] showed sigmoid and rectum thickening with possible active atrial extravasation. She was previously admitted here at [facility] back in April for intracranial hemorrhage. Patient currently have a PEG tube that was placed on previous admission but is not being utilized because she is tolerating oral intake. 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 Right common femoral artery bifurcation looks chronic and unchanged from previous recent study. 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 CBC 8.8, hemoglobin 11.4, platelets 66, INR 1.4, sodiu 2.6 m 144, potassium 3.1, creatinine 0.53, magnesium 1.4 and phosphorus. She was transferred to [facility] for Stacie surge, GI and vascular evaluation. On examination patient denies abdominal pain, back pain and lower extremity pain. She also denies shortness of breath, chest pain, dizziness and endorsed mild nausea. Patient is currently saturating 96% on room air, blood pressure mild hypertensive, respiration, heart rate and temperature within normal limit. She have palpable bilateral lower extremity DP/PT pulses. Past Medical History Past Medical History: Diagnosis Date AAA (abdominal aortic aneurysm) ([facility]) was surgically taken care of 09/2018 GERD (gastroesophageal reflux disease) Hypertension Upper respiratory infection 05/2019 Visual impairment glasses Past Surgical History Past Surgical History: Procedure Laterality Date BREAST BIOPSY BREAST SURGERY 1989 BREAST BX CARDIAC SURGERY STENT 2018 CARDIAC SURGERY LEFT VENTRICLE STENT 2018 DILATION AND CURETTAGE, DIAGNOSTIC / THERAPEUTIC 1986 ESOPHAGOGASTRODUODENOSCOPY INSERTION PEG TUBE N/A 04/11/2023 Performed by Dae Bo MD at [facility] HYSTERECTOMY KNEE ARTHROSCOPY Left KNEE ARTHROSCOPY Left REMOVE METAL 2014 LAPAROSCOPIC CHOLECYSTECTOMY N/A 05/26/2019 Performed by Caro Pollard DO at [facility] ORIF WRIST FRACTURE Right Pins Allergies Allergies Allergen Reactions Ciprofloxacin Headache Alendronate Bee Venom Protein (Honey Bee) feels like my eyes are spinning around Fncishnl-Fkxcejomzvb-Ruwjvockz Oxycodone Headache I just don't want to take it Current Medications cefTRIAXone (ROCEPHIN) IV, 1,000 mg, intravenous, Q24H metroNIDAZOLE, 500 mg, intravenous, Q8H polyethylene glycol-electrolytes, 4,000 mL, g-tube, Once sodium chloride, 3 mL, intravenous, Q12H DIO Current Infusions dextrose 5 % in water, 100 mL/hr [COMPLETED] pantoprazole, 80 mg AND pantoprazole (PROTONIX) 80 mg in sodium chloride 0.9 % 100 mL (0.8 mg/mL) infusion, 8 mg/hr, Last Rate: 8 mg/hr (06/13/23 1033) sodium chloride 0.9 %, 20 mL/hr sodium chloride 0.9 %, 100 mL/hr, Last Rate: 100 mL/hr (06/13/23 0809) Home Medications Medications Prior to Admission Medication Sig Dispense Refill Last Dose amLODIPine (NORVASC) 10 mg tablet Take 1 tablet (10 mg total) by mouth in the morning. (Patient taking differently: Take 0.5 tablets (5 mg total) by mouth in the morning. Hold if SBP <100 .) 90 tablet 3 06/12/2023 carvediloL (COREG) 25 mg tablet Take 1 tablet (25 mg total) by mouth in the morning and 1 tablet (25 mg total) before bedtime. (Patient taking differently: Take 1 tablet (25 mg total) by mouth in the morning and 1 tablet (25 mg total) before bedtime. Hold if SBP <100.) 180 tablet 3 06/12/2023 citalopram (CeleXA) 20 mg tablet Take 1 tablet (20 mg total) by mouth in the morning. 06/12/2023 lisinopriL (PRINIVIL,ZESTRIL) 40 mg tablet Take 1 tablet (40 mg total) by mouth in the morning and 1 tablet (40 mg total) before bedtime. (Patient taking differently: Take 1 tablet (40 mg total) by mouth in the morning. Hold if SBP <100 .) 180 tablet 3 06/12/2023 melatonin (CIRCADIN) tablet Take 1 tablet (3 mg total) by mouth nightly. 06/12/2023 metoprolol tartrate (LOPRESSOR) 25 mg tablet Take 1 tablet (25 mg total) by mouth in the morning and 1 tablet (25 mg total) before bedtime. Hold if SBP <100 . 06/12/2023 pantoprazole (PROTONIX) 40 mg EC tablet Take 1 tablet (40 mg total) by mouth every morning before breakfast. 06/12/2023 potassium chloride (K-TAB,KLOR-CON) 10 MEQ CR tablet Take 2 tablets (20 mEq total) by mouth in the morning and 2 tablets (20 mEq total) before bedtime. 06/12/2023 hydroCHLOROthiazide (HYDRODIURIL) 25 mg tablet Take 1 tablet (25 mg total) by mouth daily. (Patient not taking: Reported on 06/13/2023) Unknown potassium chloride (KLOR-CON) 20 mEq packet Klor-Con 20 mEq oral packet Take 1 packet 4 times a day by oral route. (Patient not taking: Reported on 04/02/2023) Unknown Social History Social History Socioeconomic History Marital status: Spouse name: Not on file Number of children: Not on file Years of education: Not on file Highest education level: Not on file Occupational History Not on file Tobacco Use Smoking status: Former Types: Cigarettes Smokeless tobacco: Never Tobacco comments: QUIT IN JUNE 2019 Vaping Use Vaping Use: Never used Substance and Sexual Activity Alcohol use: Yes Comment: SOMETIMES Drug use: Never Sexual activity: Defer Other Topics Concern Not on file Social History Narrative Not on file Social Determinants of Health Financial Resource Strain: Low Risk (06/13/2023) Overall Financial Resource Strain (CARDIA) Difficulty of Paying Living Expenses: Not hard at all Food Insecurity: No Food Insecurity (06/13/2023) Hunger Screening Food Insecurity - Worry: Never True Food Insecurity - Inability: Never True Transportation Needs: No Transportation Needs (06/13/2023) PRAPARE - Transportation Lack of Transportation (Medical): No Lack of Transportation (Non-Medical): No Physical Activity: Not on file Stress: Not on file Social Connections: Not on file Interpersonal Safety: Not At Risk (06/13/2023) Humiliation, Afraid, Rape, and Kick questionnaire Fear of Current or Ex-Partner: No Emotionally Abused: No Physically Abused: No Sexually Abused: No Housing Instability: Low Risk (06/13/2023) Housing Instability Housing Instability: No Primary Care Physician NITHYA MALLOY MD Family Histroy No family history on file. Review Of Systems Review of Systems Constitutional: Negative for chills, diaphoresis and fever. HENT: Negative for congestion, drooling, facial swelling and trouble swallowing. Eyes: Negative for pain, discharge and redness. Respiratory: Negative for apnea, chest tightness, shortness of breath, wheezing and stridor. Cardiovascular: Positive for leg swelling. Negative for chest pain and palpitations. Gastrointestinal: Positive for blood in stool and nausea. Negative for abdominal pain and vomiting. Genitourinary: Negative for flank pain and hematuria. Musculoskeletal: Negative for back pain, neck pain and neck stiffness. Skin: Negative for color change and pallor. Neurological: Negative for dizziness, syncope, speech difficulty, light-headedness, numbness and headaches. Psychiatric/Behavioral: Negative for agitation, behavioral problems and hallucinations. The patient is not nervous/anxious. Objective Vital signs: Vitals: 06/13/23 0321 06/13/23 0743 06/13/23 1119 06/13/23 1337 BP: (!) 123/95 (!) 134/96 Pulse: 85 80 Resp: 18 16 Temp: 36.7 C (98.1 F) 36.4 C (97.6 F) TempSrc: Oral Oral SpO2: 96% 96% Weight: 65.1 kg (143 lb 8.3 oz) Height: 162.6 cm (5' 4 ) Temperature Range Last 24 Hours : Temp: 36.4 C (97.6 F) Temp Av.5 C (97.7 F) Min: 36.3 C (97.4 F) Max: 36.7 C (98.1 F) Admit Weight: 65.1 kg (143 lb 8.3 oz) Body mass index is 24.64 kg/m . Last Weights: Wt Readings from Last 3 Encounters: 06/13/23 65.1 kg (143 lb 8.3 oz) 04/17/23 67.3 kg (148 lb 5.9 oz) 06/03/19 73.9 kg (163 lb) I/O's: Intake/Output Summary (Last 24 hours) at 06/13/2023 1441 Last data filed at 06/13/2023 1119 Gross per 24 hour Intake 0 ml Output 775 ml Net -775 ml Physical Exam Physical Exam Constitutional: Appearance: Normal appearance. HENT: Head: Normocephalic and atraumatic. Nose: No congestion or rhinorrhea. Neck: Vascular: No carotid bruit. Cardiovascular: Rate and Rhythm: Normal rate. Pulses: Carotid pulses are 2+ on the right side and 2+ on the left side. Radial pulses are 2+ on the right side and 2+ on the left side. Dorsalis pedis pulses are 2+ on the right side and 2+ on the left side. Posterior tibial pulses are 1+ on the right side and 1+ on the left side. Abdominal: General: Bowel sounds are normal. Tenderness: There is no abdominal tenderness. There is no guarding. Musculoskeletal: General: Swelling present. Cervical back: No rigidity or tenderness. Right lower le+ Edema present. Left lower le+ Edema present. Lymphadenopathy: Cervical: No cervical adenopathy. Skin: General: Skin is warm and dry. Findings: No bruising or lesion. Neurological: Mental Status: She is alert. Psychiatric: Mood and Affect: Mood normal. Imaging No results found. No results found. Assessment/Plan 1. 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 Hyde back in September of 2018. Since patient is currently asymptomatic, we will recommend adding aspirin and Plavix to her medication regiment when cleared by GI . I will also obtain a baseline NATASHA/PVR. Noted plan for patient to have colonoscopy tomorrow. Dr. Hyde will be notified about the patient's admission and we will continue to follow. Thank you very much for allowing us to participate in patient's care. Your referrals are greatly appreciated, please do not hesitate to contact our service with any questions or concerns regarding management. [place]TA French [facility] [place] Office/After hours: [phone] KOTA French 06/13/23 1530 [place] Work Phone: 06-13-2023 Consult note Associated Order (s): IP CONSULT TO VASCULAR SURGERY Images from the original note were not included. 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 White or female admitted with GI bleed . She has a history significant for AAA that was surgically repaired September 2018, GERD, hypertension and visual impairment. presented initially to [facility] with complain of hematochezia at a care home where she resides. CT abdomen and pelvis at [facility] showed sigmoid and rectum thickening with possible active atrial extravasation. She was previously admitted here at [facility] back in April for intracranial hemorrhage. Patient currently have a PEG tube that was placed on previous admission but is not being utilized because she is tolerating oral intake. 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 Right common femoral artery bifurcation looks chronic and unchanged from previous recent study. 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 CBC 8.8, hemoglobin 11.4, platelets 66, INR 1.4, sodiu 2.6 m 144, potassium 3.1, creatinine 0.53, magnesium 1.4 and phosphorus. She was transferred to [facility] for Stacie surge, GI and vascular evaluation. On examination patient denies abdominal pain, back pain and lower extremity pain. She also denies shortness of breath, chest pain, dizziness and endorsed mild nausea. Patient is currently saturating 96% on room air, blood pressure mild hypertensive, respiration, heart rate and temperature within normal limit. She have palpable bilateral lower extremity DP/PT pulses. Past Medical History Past Medical History: Diagnosis Date AAA (abdominal aortic aneurysm) ([facility]) was surgically taken care of 09/2018 GERD (gastroesophageal reflux disease) Hypertension Upper respiratory infection 05/2019 Visual impairment glasses Past Surgical History Past Surgical History: Procedure Laterality Date BREAST BIOPSY BREAST SURGERY 1989 BREAST BX CARDIAC SURGERY STENT 2018 CARDIAC SURGERY LEFT VENTRICLE STENT 2018 DILATION AND CURETTAGE, DIAGNOSTIC / THERAPEUTIC 1986 ESOPHAGOGASTRODUODENOSCOPY INSERTION PEG TUBE N/A 04/11/2023 Performed by Dae Bo MD at [facility] HYSTERECTOMY KNEE ARTHROSCOPY Left KNEE ARTHROSCOPY Left REMOVE METAL 2014 LAPAROSCOPIC CHOLECYSTECTOMY N/A 05/26/2019 Performed by Caro Pollard DO at [facility] ORIF WRIST FRACTURE Right Pins Allergies Allergies Allergen Reactions Ciprofloxacin Headache Alendronate Bee Venom Protein (Honey Bee) feels like my eyes are spinning around Rdkfjlvv-Naacximqtkl-Jvezclhiv Oxycodone Headache I just don't want to take it Current Medications cefTRIAXone (ROCEPHIN) IV, 1,000 mg, intravenous, Q24H metroNIDAZOLE, 500 mg, intravenous, Q8H polyethylene glycol-electrolytes, 4,000 mL, g-tube, Once sodium chloride, 3 mL, intravenous, Q12H DIO Current Infusions dextrose 5 % in water, 100 mL/hr [COMPLETED] pantoprazole, 80 mg AND pantoprazole (PROTONIX) 80 mg in sodium chloride 0.9 % 100 mL (0.8 mg/mL) infusion, 8 mg/hr, Last Rate: 8 mg/hr (06/13/23 1033) sodium chloride 0.9 %, 20 mL/hr sodium chloride 0.9 %, 100 mL/hr, Last Rate: 100 mL/hr (06/13/23 0809) Home Medications Medications Prior to Admission Medication Sig Dispense Refill Last Dose amLODIPine (NORVASC) 10 mg tablet Take 1 tablet (10 mg total) by mouth in the morning. (Patient taking differently: Take 0.5 tablets (5 mg total) by mouth in the morning. Hold if SBP <100 .) 90 tablet 3 06/12/2023 carvediloL (COREG) 25 mg tablet Take 1 tablet (25 mg total) by mouth in the morning and 1 tablet (25 mg total) before bedtime. (Patient taking differently: Take 1 tablet (25 mg total) by mouth in the morning and 1 tablet (25 mg total) before bedtime. Hold if SBP <100.) 180 tablet 3 06/12/2023 citalopram (CeleXA) 20 mg tablet Take 1 tablet (20 mg total) by mouth in the morning. 06/12/2023 lisinopriL (PRINIVIL,ZESTRIL) 40 mg tablet Take 1 tablet (40 mg total) by mouth in the morning and 1 tablet (40 mg total) before bedtime. (Patient taking differently: Take 1 tablet (40 mg total) by mouth in the morning. Hold if SBP <100 .) 180 tablet 3 06/12/2023 melatonin (CIRCADIN) tablet Take 1 tablet (3 mg total) by mouth nightly. 06/12/2023 metoprolol tartrate (LOPRESSOR) 25 mg tablet Take 1 tablet (25 mg total) by mouth in the morning and 1 tablet (25 mg total) before bedtime. Hold if SBP <100 . 06/12/2023 pantoprazole (PROTONIX) 40 mg EC tablet Take 1 tablet (40 mg total) by mouth every morning before breakfast. 06/12/2023 potassium chloride (K-TAB,KLOR-CON) 10 MEQ CR tablet Take 2 tablets (20 mEq total) by mouth in the morning and 2 tablets (20 mEq total) before bedtime. 06/12/2023 hydroCHLOROthiazide (HYDRODIURIL) 25 mg tablet Take 1 tablet (25 mg total) by mouth daily. (Patient not taking: Reported on 06/13/2023) Unknown potassium chloride (KLOR-CON) 20 mEq packet Klor-Con 20 mEq oral packet Take 1 packet 4 times a day by oral route. (Patient not taking: Reported on 04/02/2023) Unknown Social History Social History Socioeconomic History Marital status: Spouse name: Not on file Number of children: Not on file Years of education: Not on file Highest education level: Not on file Occupational History Not on file Tobacco Use Smoking status: Former Types: Cigarettes Smokeless tobacco: Never Tobacco comments: QUIT IN JUNE 2019 Vaping Use Vaping Use: Never used Substance and Sexual Activity Alcohol use: Yes Comment: SOMETIMES Drug use: Never Sexual activity: Defer Other Topics Concern Not on file Social History Narrative Not on file Social Determinants of Health Financial Resource Strain: Low Risk (06/13/2023) Overall Financial Resource Strain (CARDIA) Difficulty of Paying Living Expenses: Not hard at all Food Insecurity: No Food Insecurity (06/13/2023) Hunger Screening Food Insecurity - Worry: Never True Food Insecurity - Inability: Never True Transportation Needs: No Transportation Needs (06/13/2023) PRAPARE - Transportation Lack of Transportation (Medical): No Lack of Transportation (Non-Medical): No Physical Activity: Not on file Stress: Not on file Social Connections: Not on file Interpersonal Safety: Not At Risk (06/13/2023) Humiliation, Afraid, Rape, and Kick questionnaire Fear of Current or Ex-Partner: No Emotionally Abused: No Physically Abused: No Sexually Abused: No Housing Instability: Low Risk (06/13/2023) Housing Instability Housing Instability: No Primary Care Physician NITHYA MALLOY MD Family Histroy No family history on file. Review Of Systems Review of Systems Constitutional: Negative for chills, diaphoresis and fever. HENT: Negative for congestion, drooling, facial swelling and trouble swallowing. Eyes: Negative for pain, discharge and redness. Respiratory: Negative for apnea, chest tightness, shortness of breath, wheezing and stridor. Cardiovascular: Positive for leg swelling. Negative for chest pain and palpitations. Gastrointestinal: Positive for blood in stool and nausea. Negative for abdominal pain and vomiting. Genitourinary: Negative for flank pain and hematuria. Musculoskeletal: Negative for back pain, neck pain and neck stiffness. Skin: Negative for color change and pallor. Neurological: Negative for dizziness, syncope, speech difficulty, light-headedness, numbness and headaches. Psychiatric/Behavioral: Negative for agitation, behavioral problems and hallucinations. The patient is not nervous/anxious. Objective Vital signs: Vitals: 06/13/23 0321 06/13/23 0743 06/13/23 1119 06/13/23 1337 BP: (!) 123/95 (!) 134/96 Pulse: 85 80 Resp: 18 16 Temp: 36.7 C (98.1 F) 36.4 C (97.6 F) TempSrc: Oral Oral SpO2: 96% 96% Weight: 65.1 kg (143 lb 8.3 oz) Height: 162.6 cm (5' 4 ) Temperature Range Last 24 Hours : Temp: 36.4 C (97.6 F) Temp Av.5 C (97.7 F) Min: 36.3 C (97.4 F) Max: 36.7 C (98.1 F) Admit Weight: 65.1 kg (143 lb 8.3 oz) Body mass index is 24.64 kg/m . Last Weights: Wt Readings from Last 3 Encounters: 06/13/23 65.1 kg (143 lb 8.3 oz) 04/17/23 67.3 kg (148 lb 5.9 oz) 06/03/19 73.9 kg (163 lb) I/O's: Intake/Output Summary (Last 24 hours) at 06/13/2023 1441 Last data filed at 06/13/2023 1119 Gross per 24 hour Intake 0 ml Output 775 ml Net -775 ml Physical Exam Physical Exam Constitutional: Appearance: Normal appearance. HENT: Head: Normocephalic and atraumatic. Nose: No congestion or rhinorrhea. Neck: Vascular: No carotid bruit. Cardiovascular: Rate and Rhythm: Normal rate. Pulses: Carotid pulses are 2+ on the right side and 2+ on the left side. Radial pulses are 2+ on the right side and 2+ on the left side. Dorsalis pedis pulses are 2+ on the right side and 2+ on the left side. Posterior tibial pulses are 1+ on the right side and 1+ on the left side. Abdominal: General: Bowel sounds are normal. Tenderness: There is no abdominal tenderness. There is no guarding. Musculoskeletal: General: Swelling present. Cervical back: No rigidity or tenderness. Right lower le+ Edema present. Left lower le+ Edema present. Lymphadenopathy: Cervical: No cervical adenopathy. Skin: General: Skin is warm and dry. Findings: No bruising or lesion. Neurological: Mental Status: She is alert. Psychiatric: Mood and Affect: Mood normal. Imaging No results found. No results found. Assessment/Plan 1. 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 Hyde back in September of 2018. Since patient is currently asymptomatic, we will recommend adding aspirin and Plavix to her medication regiment when cleared by GI . I will also obtain a baseline NATASHA/PVR. Noted plan for patient to have colonoscopy tomorrow. Dr. Hyde will be notified about the patient's admission and we will continue to follow. Thank you very much for allowing us to participate in patient's care. Your referrals are greatly appreciated, please do not hesitate to contact our service with any questions or concerns regarding management. KOTA French [facility] [place] Office/After hours: [phone] KOTA French 06/13/23 1533 Associated Order(s): IP CONSULT TO GASTROENTEROLOGY [facility] Teaching GI Service Initial Gastroenterology/Hepatology Consultation Note IDENTIFYING DATA PATIENT: Ellen Chan ADMIT DATE: 06/13/2023 TIME OF EVALUATION: 06/13/2023 10:10 AM Reason for Consult: Hematochezia Requesting Physician: Emilee Marie DO HISTORY OF PRESENT ILLNESS Ellen Chan is a 78 y.o. female who was recently admitted in April secondary to intracranial hemorrhage, during that admission requiring PEG who presents from care home for hematochezia. History is obtained from chart review and care team given patient is altered. Patient was taken to [facility] CT scan was performed that revealed sigmoid and rectum thickening, with possible active arterial extravasation. Hemoglobin was 13 on arrival at [place]. She was then transferred to [facility] for escalation of care. She has had no further episodes of hematochezia. Hemoglobin is stable. Hemodynamics are stable. No documentation of anticoagulation in her chart. Patient denies abdominal pain, nausea, vomiting. GI HISTORY SUMMARY TABLE Last EGD Last colonoscopy Primary GI physician PAST MEDICAL, SURGICAL, FAMILY, and SOCIAL HISTORY Past Medical History: Diagnosis Date AAA (abdominal aortic aneurysm) ([facility]) was surgically taken care of 09/2018 GERD (gastroesophageal reflux disease) Hypertension Upper respiratory infection 05/2019 Visual impairment glasses Past Surgical History: Procedure Laterality Date BREAST BIOPSY BREAST SURGERY 1989 BREAST BX CARDIAC SURGERY STENT 2018 CARDIAC SURGERY LEFT VENTRICLE STENT 2018 DILATION AND CURETTAGE, DIAGNOSTIC / THERAPEUTIC 1986 ESOPHAGOGASTRODUODENOSCOPY INSERTION PEG TUBE N/A 04/11/2023 Performed by Dae Bo MD at [facility] HYSTERECTOMY KNEE ARTHROSCOPY Left KNEE ARTHROSCOPY Left REMOVE METAL 2014 LAPAROSCOPIC CHOLECYSTECTOMY N/A 05/26/2019 Performed by Caro Pollard DO at [facility] ORIF WRIST FRACTURE Right Pins No family history on file. Social History: Social History Tobacco Use Smoking status: Former Smokeless tobacco: Never Tobacco comments: QUIT IN JUNE 2019 Vaping Use Vaping Use: Never used Substance Use Topics Alcohol use: Yes Comment: SOMETIMES Drug use: Never MEDICATIONS Allergies: Allergies Allergen Reactions Ciprofloxacin Headache Alendronate Bee Venom Protein (Honey Bee) feels like my eyes are spinning around Wdtrfhku-Kgmxywmxoxw-Yklxssayw Oxycodone Headache I just don't want to take it Home Medications: Prior to Admission medications Medication Sig Start Date End Date Taking? Authorizing Provider amLODIPine (NORVASC) 10 mg tablet Take 1 tablet (10 mg total) by mouth in the morning. Patient taking differently: Take 0.5 tablets (5 mg total) by mouth in the morning. Hold if SBP <100 . 04/17/23 04/16/24 Yes Artemio Ray MD carvediloL (COREG) 25 mg tablet Take 1 tablet (25 mg total) by mouth in the morning and 1 tablet (25 mg total) before bedtime. Patient taking differently: Take 1 tablet (25 mg total) by mouth in the morning and 1 tablet (25 mg total) before bedtime. Hold if SBP <100. 04/16/23 04/15/24 Yes Artemio Ray MD citalopram (CeleXA) 20 mg tablet Take 1 tablet (20 mg total) by mouth in the morning. Yes Not In System Ref Prov lisinopriL (PRINIVIL,ZESTRIL) 40 mg tablet Take 1 tablet (40 mg total) by mouth in the morning and 1 tablet (40 mg total) before bedtime. Patient taking differently: Take 1 tablet (40 mg total) by mouth in the morning. Hold if SBP <100 . 04/16/23 04/15/24 Yes Artemio Ray MD melatonin (CIRCADIN) tablet Take 1 tablet (3 mg total) by mouth nightly. Yes Not In System Ref Prov metoprolol tartrate (LOPRESSOR) 25 mg tablet Take 1 tablet (25 mg total) by mouth in the morning and 1 tablet (25 mg total) before bedtime. Hold if SBP <100 . 05/03/19 Yes Not In System Ref Prov pantoprazole (PROTONIX) 40 mg EC tablet Take 1 tablet (40 mg total) by mouth every morning before breakfast. 06/04/22 Yes Not In System Ref Prov potassium chloride (K-TAB,KLOR-CON) 10 MEQ CR tablet Take 2 tablets (20 mEq total) by mouth in the morning and 2 tablets (20 mEq total) before bedtime. 02/05/23 Yes Not In System Ref Prov hydroCHLOROthiazide (HYDRODIURIL) 25 mg tablet Take 1 tablet (25 mg total) by mouth daily. Patient not taking: Reported on 06/13/2023 03/17/19 Not In System Ref Prov potassium chloride (KLOR-CON) 20 mEq packet Klor-Con 20 mEq oral packet Take 1 packet 4 times a day by oral route. Patient not taking: Reported on 04/02/2023 Not In System Ref Prov Current Medications: cefTRIAXone (ROCEPHIN) IV, 1,000 mg, intravenous, Q24H metroNIDAZOLE, 500 mg, intravenous, Q8H sodium chloride, 3 mL, intravenous, Q12H DIO PRNs: calcium gluconate, 3,000 mg, PRN calcium gluconate, 4,000 mg, PRN calcium gluconate, 2,000 mg, PRN dextrose, 15 g, PRN dextrose 5 % in water, 100 mL/hr, Continuous PRN dextrose 50 % in water (D50W), 25 mL, PRN glucagon (human recombinant), 1 mg, PRN magnesium sulfate, 2,000 mg, PRN magnesium sulfate, 4,000 mg, PRN potassium chloride in water, 10 mEq, PRN sodium phosphate IV, 20 mmol, PRN Or sodium phosphate IV - central line, 20 mmol, PRN Or sod phos di, mono-K phos mono, 2 tablet, PRN sodium chloride, 3 mL, PRN sodium chloride, 25 mL, PRN sodium chloride 0.9 %, 20 mL/hr, Continuous PRN REVIEW OF SYSTEMS See HPI, otherwise ROS negative as below CONSTITUTIONAL: negative HEENT: negative RESPIRATORY: negative CARDIOVASCULAR: negative GASTROINTESTINAL: as in HPI GENITOURINARY: negative INTEGUMENT/BREAST: negative HEMATOLOGIC/LYMPHATIC: negative ALLERGIC/IMMUNOLOGIC: negative ENDOCRINE: negative MUSCULOSKELETAL: negative NEUROLOGICAL: negative BEHAVIOR/PSYCH: negative OBJECTIVE DATA Vitals: BP (!) 123/95 Pulse 85 Temp 36.7 C (98.1 F) (Oral) Resp 18 Wt 65.1 kg (143 lb 8.3 oz) SpO2 96% BMI 24.64 kg/m GEN: alert, NAD HEENT: EOMI, PERRL, oropharynx non-erythematous without exudate, no oral lesions CV: RRR, no murmur, rub, gallop, no edema PULM: CTAB, symmetric chest rise, no accessory muscle use ABD: soft, non-tender, non-distended, G-tube in place NEURO: no focal deficits, moves all 4 extremities spontaneously SKIN: no rashes PSYCH: normal affect LABS AND IMAGING CBC: Lab Results Component Value Date WBC 8.8 06/13/2023 HGB 11.4 (L) 06/13/2023 HCT 33.9 (L) 06/13/2023 MCV 85 06/13/2023 RDW 16.5 (H) 06/13/2023 PLT 66 (L) 06/13/2023 CMP: Lab Results Component Value Date K 3.1 (L) 06/13/2023 CL 110 (H) 06/13/2023 CO2 25 06/13/2023 BUN 17 06/13/2023 GLU 82 06/13/2023 GLU 132 (H) 04/17/2023 Lipase: No components found for: LIP Amylase: No results found for: JODY Ionized Calcium: No components found for: IONCA Magnesium: Lab Results Component Value Date MG 1.4 (L) 06/13/2023 Phosphorus: No components found for: PO4 PT/INR: Lab Results Component Value Date INR 1.4 (H) 06/13/2023 TSH: No results found for: TSH VITAMIN B12: No components found for: B12 FOLATE: Lab Results Component Value Date FOLATE 12.0 04/09/2023 IRON: No results found for: FE Iron Saturation: No components found for: PERCENTFESAT TIBC: Lab Results Component Value Date TIBC 217 (L) 04/09/2023 FERRITIN: Lab Results Component Value Date FERRITIN 618 (H) 04/09/2023 MICRO Blood Culture: No components found for: CBLOOD , CFUNGUSBL Stool Culture: No components found for: CSTOOL IMAGING: No results found. ASSESSMENT AND PLAN Ellen Chan is a 78 y.o. female who was recently admitted in April secondary to intracranial hemorrhage, during that admission requiring PEG who presents from care home for hematochezia. History is obtained from chart review and care team given patient is altered. Patient was taken to [facility] CT scan was performed that revealed sigmoid and rectum thickening, with possible active arterial extravasation. Hemoglobin was 13 on arrival at [place]. She was then transferred to [facility] for escalation of care. She has had no further episodes of hematochezia. Hemoglobin is stable. Hemodynamics are stable. No documentation of anticoagulation in her chart. Patient denies abdominal pain, nausea, vomiting. 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 POA is okay with reversing code status for duration of colonoscopy to full code. Monitor for hematochezia Trend hemoglobin and transfuse as needed Recommend vascular surgery consultation given numerous vascular findings on CT This consult will be discussed with attending physician Dr. Ivory. If you have any questions please feel free to contact the GI Service. Thank you for allowing us to participate in the care of Ellen Chan. [place] Academic GI Service 6 am to 4 pm weekdays in house 4 pm to 6 am or weekends please contact the centralized traffic control operator to page the fellow spa concierge Associated attestation - David Ivory MD - 06/13/2023 1:50 PM EST Seen and discussed with fellow, agree with history/physical exam/plan. [facility] Progress note Formatting of t his note might be different from the original. DISCHARGE PLANNING NOTE [facility] to [facility] (P[facility] ; F[facility] History and physical note Images from the original note were not included. Chief Complaint: Hematochezia History of Present Illness: Ellen Chan is a 78 y.o. female who presents from [facility] for escalation of care. Patient had 1 episode of hematochezia at care home where she resides prompting transport to [facility] for workup. Per hospital records patient had CT [facility] showing sigmoid and rectum thickening with possible active arterial extravasation. Hemoglobin on intake at [facility] was 13. Patient was previously admitted to [facility] in April due to intracranial hemorrhage. During that admission patient required trach and had PEG tube placed. Patient still currently has PEG tube in place, but care home staff reports it has not recently been used because patient tolerates oral intake well. Does not take blood thinners at baseline. On questioning today patient denies abdominal pain, nausea and vomiting. Per nursing staff there have been no further episodes of hematochezia since admission earlier today. A 12 point ROS is negative unless otherwise stated in HPI Past Medical History: Diagnosis Date AAA (abdominal aortic aneurysm) ([facility]) was surgically taken care of 09/2018 GERD (gastroesophageal reflux disease) Hypertension Upper respiratory infection 05/2019 Visual impairment glasses Past Surgical History: Procedure Laterality Date BREAST BIOPSY BREAST SURGERY 1989 BREAST BX CARDIAC SURGERY STENT 2019 CARDIAC SURGERY LEFT VENTRICLE STENT 2018 DILATION AND CURETTAGE, DIAGNOSTIC / THERAPEUTIC 1986 ESOPHAGOGASTRODUODENOSCOPY INSERTION PEG TUBE N/A 04/11/2023 Performed by Dae Bo MD at [facility] HYSTERECTOMY KNEE ARTHROSCOPY Left KNEE ARTHROSCOPY Left REMOVE METAL 2014 LAPAROSCOPIC CHOLECYSTECTOMY N/A 05/26/2019 Performed by Caro Pollard DO at [facility] ORIF WRIST FRACTURE Right Pins Allergies Allergen Reactions Ciprofloxacin Headache Alendronate Bee Venom Protein (Honey Bee) feels like my eyes are spinning around Vpdbxueg-Hntpxvzdnaf-Mtusvjdxq Oxycodone Headache I just don't want to take it Current Facility-Administered Medications: calcium gluconate 3,000 mg in sodium chloride 0.9 % 100 mL IVPB, 3,000 mg, intravenous, PRN, Austin Marino MD calcium gluconate 4,000 mg in sodium chloride 0.9 % 250 mL IVPB, 4,000 mg, intravenous, PRN, Austin Marino MD calcium gluconate IVPB 2000 mg/100 mL (20 mg/mL premix), 2,000 mg, intravenous, PRN, Austin Marino MD cefTRIAXone (ROCEPHIN) 1,000 mg in sodium chloride 0.9 % 50 mL IVPB-MBP, 1,000 mg, intravenous, Q24H, Glory Richmond MD, Stopped at 06/13/23 0608 dextrose (GLUTOSE) 40 % gel 15 g, 15 g, oral, PRN, Glory Richmond MD dextrose 5 % (D5W) infusion, 100 mL/hr, intravenous, Continuous PRN, Glory Richmond MD dextrose 50 % in water (D50W) 50% solution 25 mL, 25 mL, intravenous, PRN, Glory Richmond MD glucagon HCL injection 1 mg, 1 mg, intramuscular, PRN, Glory Richmond MD magnesium sulfate IVPB 2000 mg/50 mL in iso-osmotic water (40 mg/mL premix), 2,000 mg, intravenous, PRN, Glory Richmond MD magnesium sulfate IVPB 4000 mg/100 mL in iso-osmotic water (40 mg/mL premix), 4,000 mg, intravenous, PRN, Glory Richmond MD, Stopped at 06/13/23 1145 metroNIDAZOLE (FLAGYL) IVPB 500 mg/100 mL in iso-osmotic sodium chloride (5 mg/mL premix), 500 mg, intravenous, Q8H, Glory Richmond MD, Stopped at 06/13/23 0716 [COMPLETED] pantoprazole (PROTONIX) injection 80 mg, 80 mg, intravenous, Once, 80 mg at 06/13/23 0847 AND pantoprazole (PROTONIX) 80 mg in sodium chloride 0.9 % 100 mL (0.8 mg/mL) infusion, 8 mg/hr, intravenous, Continuous, Austin Marino MD, Last Rate: 10 mL/hr at 06/13/23 1033, 8 mg/hr at 06/13/23 1033 polyethylene glycol-electrolytes (NULYTELY) solution 4,000 mL, 4,000 mL, g-tube, Once, Simeon Upton, potassium chloride IVPB 10 mEq/100 mL in water (0.1 mEq/mL premix), 10 mEq, intravenous, PRN, Glory Richmond MD, Last Rate: 100 mL/hr at 06/13/23 1209, 10 mEq at 06/13/23 1209 sodium phosphate 20 mmol in sodium chloride 0.9 % 250 mL IVPB, 20 mmol, intravenous, PRN OR sodium phosphate 20 mmol in sodium chloride 0.9 % 100 mL IVPB, 20 mmol, intravenous, PRN OR sod phos di, mono-K phos mono (K-PHOS NEUTRAL) 250 mg tablet 2 tablet, 2 tablet, oral, PRN, Austin Marino MD sodium chloride 0.9 % flush 3 mL, 3 mL, intravenous, PRN, Glory Richmond MD sodium chloride 0.9 % flush 3 mL, 3 mL, intravenous, Q12H DIO, Glory Richmond MD, 3 mL at 06/13/23 0847 sodium chloride 0.9 % flush bag, 25 mL, intravenous, PRN, Glory Richmond MD sodium chloride 0.9 % infusion, 20 mL/hr, intravenous, Continuous PRN, Glory Richmond MD sodium chloride 0.9 % infusion, 100 mL/hr, intravenous, Continuous, Austin Marino MD, Last Rate: 100 mL/hr at 06/13/23 0809, 100 mL/hr at 06/13/23 0809 Social History Socioeconomic History Marital status: Spouse [...] on file Interpersonal Safety: Not on file Housing Instability: Not on file No family history on file. Vital Signs: Blood pressure (!) 134/96, pulse 80, temperature 36.4 C (97.6 F), temperature source Oral, resp. rate 16, weight 65.1 kg (143 lb 8.3 oz), SpO2 96%. Physical Exam: Physical Exam Constitutional: General: She is not in acute distress. Appearance: Normal appearance. She is not ill-appearing. HENT: Head: Normocephalic. Mouth/Throat: Mouth: Mucous membranes are moist. Cardiovascular: Rate and Rhythm: Normal rate. Pulmonary: Effort: Pulmonary effort is normal. Abdominal: General: Abdomen is flat. There is no distension. Palpations: Abdomen is soft. Tenderness: There is no abdominal tenderness. Skin: General: Skin is warm and dry. Capillary Refill: Capillary refill takes less than 2 seconds. Neurological: General: No focal deficit present. Mental Status: She is alert. Labs: Lab Results Component Value Date WBC 8.8 06/13/2023 HGB 11.4 (L) 06/13/2023 HCT 33.9 (L) 06/13/2023 MCV 85 06/13/2023 PLT 66 (L) 06/13/2023 Lab Results Component Value Date GLU 82 06/13/2023 CALCIUM 8.9 06/13/2023 K 3.1 (L) 06/13/2023 CO2 25 06/13/2023 CL 110 (H) 06/13/2023 BUN 17 06/13/2023 CREATININE 0.53 06/13/2023 No results found for: AMYLASE Lab Results Component Value Date LIPASE 10 (L) 05/19/2019 Lab Results Component Value Date ALT 6 06/13/2023 AST 11 06/13/2023 ALKPHOS 45 06/13/2023 Lab Results Component Value Date INR 1.4 (H) 06/13/2023 INR 1.1 04/09/2023 INR 1.0 04/01/2023 PROTIME 15.6 (H) 06/13/2023 PROTIME 13.3 (H) 04/09/2023 PROTIME 12.2 04/01/2023 Imaging: CT CTA ABD AND PELVIS 06/13/2023 Addendum 06/13/2023 12:50 PM *ADDENDUM* ADDENDUM: 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 There is calcification along the wall and intimal flap and there is no surrounding fluid, blood, inflammatory change or irregular intraluminal thrombus There is a similar short dissection in the left superficial femoral artery which looks unchanged and with similar characteristics aside from no significant calcification - Finalized by Adriel Méndez MD on 06/13/2023 12:50 PM Narrative HISTORY and Tech Notes: Mesenteric ischemia, acute Follow-up colitis PROCEDURE: CT angiogram abdomen pelvis Study is done with IV contrast Arterial phase and venous phase imaging Two-dimensional source data images submitted in combination with three-dimensional and/or maximum intensity projections and reconstructions Automated exposure control was utilized COMPARISON: June 10 FINDINGS: There is significant tortuosity of the distal descending thoracic aorta and the abdominal aorta There is an endovascular graft stent in the descending thoracic aorta and also in the abdominal aorta There is no visible endoleak or periaortic hematoma The endograft stents extend into the common iliac arteries and right external iliac artery 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 There is only mild stenosis at the origin The SMA enhances There is not significant stenosis at the origin There is mild irregularity, thrombus and narrowing of the proximal to mid segment without occlusion There is moderate calcification multifocal stenosis in the renal arteries On venous phase imaging the SMV enhances There is mild narrowing due to the compression of the abdominal aortic aneurysm in the mid abdomen The splenic vein enhances The portal vein and branches enhance The hepatic veins enhance The hepatic veins enhance UPPER ABDOMEN No splenomegaly. Granuloma changes Left greater than right renal cysts There is a complex lesion in the right kidney with a dense or enhancing component measuring around 2 cm. Follow-up surveillance imaging in 6 months suggested No peripancreatic fluid collections. There is pancreatic atrophy There is suggestion of a tiny cyst in the pancreatic body There is no visible ductal dilatation There are not pancreatic calcifications No suspicious liver mass. No significant bile duct dilatation or perihepatic fluid GB removed No fluid collection Slight prominence of the CBD may be physiologic after cholecystectomy assuming no jaundice or abnormal bilirubin levels No suspicious adrenal mass seen No large hiatal hernia There is a PEG tube in place without visible complication of gastric wall looks prominent but it may be exaggerated by lack of distention PELVIS No hydronephrosis . Lenz in place Nondilated bladder There is some dense material in the dependent portion of the bladder No sign of a bowel obstruction. There is persistent severe bowel wall thickening in the rectum and rectosigmoid region with adjacent fluid and fat stranding and hyperemia, similar to the previous exam The rest of the large and small bowel do not look affected No discrete abscess is seen at this point . No retroperitoneal bleed or suspicious adenopathy. No sign to suggest acute appendicitis. LUNG BASE EVALUATION no basilar consolidation or significant effusion. . BONE RECONSTRUCTIONS Chronic appearing deformity at L4 No aggressive bone destruction. . Impression Mild irregularity and stenosis along the proximal and mid SMA without occlusion Dilated tortuous thoracic and abdominal aorta with endovascular graft as detailed above. 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 No significant stenosis or irregular thrombus Hepatic and portal veins look patent. There is some mass effect on the SMV due to the abdominal aortic aneurysm sac causing some narrowing and compression of the lumen without visible thrombus - Severe inflammatory change within and around the rectum and rectosigmoid junction with adjacent fat stranding and fluid accumulation but no discrete abscess or bowel obstruction at this point Follow-up suggested prove clearing and normalization and exclude underlying neoplasm or other pathology Complex lesion in the right kidney with a 2 cm dense hemorrhagic or enhancing nodular component adjacent to the more simple cystic component superior to that. Follow-up surveillance imaging within 6 months suggested in attempt to prove stability or benign imaging characteristics. MRI might be useful but may be subject to extensive artifact from the endograft Slight prominence of the CBD thought likely to be physiologic after cholecystectomy in the absence of abnormal bilirubin levels or jaundice . . All CT scans at this facility use dose modulation, iterative reconstruction, and/or weight based dosing when appropriate to reduce radiation dose to as low as reasonably achievable. Finalized by Adriel Méndez MD on 06/13/2023 11:52 AM Assessment: Ellen Chan is a 78 y.o.female with PMH AAA s/p EVAR, GERD, HTN, prior ICH s/p trach (now reversed) and PEG presenting with hematochezia. Hb stable at 11.4, CT scan read as sigmoid/rectal inflammation with possible active extravasation consistent with ischemic colitis. Plan: GI on board, planning for colonoscopy 06/13 to evaluate for left sided colitis/hematochezia. OK for CLD from general surgery standpoint, defer to primary/GI team. Continue to monitor hemoglobin, consider transfusion if less than 7 Continue to monitor and replace electrolytes as needed Pain and nausea control PRN DVT ppx: mechanical, hold chemical Adriel Sandhu MS3 I have examined the patient and verified the history of present illness and performed the physical exam and medical decision making. I have verified all of the medical student's documentation for this encounter. Kaylene Ramírez MD General Surgery Resident PGY1 Acute Care Surgery/ACS 6a-6p pager #[phone] 6p-6a pager #[phone] Associated attestation - Estevan Duff DO - 06/13/2023 1:55 PM EST General Surgery Attending Attestation: I saw the patient. I participated and was physically present during the critical/felix portions of the service. I was directly involved in the management and treatment plan of the patient. I reviewed the resident's note. Additional Notes/Findings: Abdomen is soft and nontender. Hemoglobin stable. Gastroenterology note and plan reviewed. Await colonoscopy results. Will continue to follow along with you. Estevan Duff D.O. [facility] 06-13-2023 Progress note Formatting of t his note is different from the original. Speech Therapy Bedside Swallow/ Feeding Evaluation Impressions Oral Dysphagia: Minimal, Mild Pharyngeal Dysphagia Suspected: Yes Recommendations Diet Level: NPO Liquid Level: No liquids Medications: In applesauce/puree Referrals: VFSS Discharge Recommendations: (continued speech services) Plan Frequency: 1-2days/week Duration: until discharge Treatments/Modalities: Safety strategies, Pharyngeal strengthening, Base of tongue retraction, Gurjit maneuver, Super/supra glottic swallow, Dang maneuver Need for skilled Speech Language Pathology Services to address deficits in feeding/swallowing due to a status decline resulting from acute lower GI bleeding. Recommended VFSS to determine safety of swallow. Please place order. Prognosis Services: Skilled PLANNER services to address above deficits Prognosis/Potential: Good Considerations: Age, Ability to learn, Previous level of function Assessment Baseline Assessment Prior BSSE/VFSS: BSSE: yes Temperature Spikes Noted: No Respiratory Status: Room Air Behavior/Cognition: Cooperative Dentition: Adequate Vision: Functional for self-feeding Patient Positioning: Upright in bed Laryngectomy: No Ability to Control Secretions: Yes Allergies Marked As Reviewed: Complete Oral/Motor Overall Oral/Motor Status: Within Functional Limits Intelligibility: Intelligible Breath Support: Adequate for speech Dentition: Adequate Xerostomia: No Hearing: Within Functional Limits Consistencies Assessed: Yes Level 0 Thin Presentation: Cup, Straw Oral: Suspect premature spillage Pharyngeal: Wet/gurgly vocal quality, Decreased laryngeal elevation Level 4 Pureed Presentation: Spoon Oral: Within Functional Limits Pharyngeal: Decreased laryngeal elevation Regular Presentation: Assist feed Oral: Decreased mastication, Oral stasis/pocketing Pharyngeal: Decreased laryngeal elevation Pain Assessment Pain Assessment: No/denies pain Plan Diagnosis Code Swallowing: R13.12 Dysphagia, oropharyngeal phase Speech Therapy Care Plan Speech Therapy Care Plan (Active) Template: ST - Dysphagia Problem: Swallowing Dates: Start: 06/13/23 Disciplines: PLANNER Goal: LTG: Patient will tolerate least restrictive diet recommended by PLANNER without signs and symptoms of aspiration 90% of the time Dates: Start: 06/13/23 Expected End: 07/14/23 Disciplines: PLANNER Goal: STG: Patient will complete safety strategies independently during PO intake 90% of the time Dates: Start: 06/13/23 Expected End: 07/14/23 Disciplines: PLANNER Goal: STG: Patient will complete oral/ pharyngeal strengthening program with resistance with 90% accuracy with minimal cueing Dates: Start: 06/13/23 Expected End: 07/14/23 Disciplines: PLANNER Speech Therapy Care Plan (Resolved) There are no resolved problems. Principal Problem: Acute lower GI bleeding [facility] 06-13-2023 Nurse Note I have called and talked to nursing staff at [facility]. Staff states that the patient had advanced to a regular diet with thin liquids and was drinking well with a straw. She was taking her pills crushed in puree and was tolerating it well. Staff states that they were not currently using her PEG tube for anything. [facility] 06-13-2023 Consult note Associated Order (s): IP CONSULT TO GASTROENTEROLOGY [facility] Teaching GI Service Initial Gastroenterology/Hepatology Consultation Note IDENTIFYING DATA PATIENT: Ellen Chan ADMIT DATE: 06/13/2023 TIME OF EVALUATION: 06/13/2023 10:10 AM Reason for Consult: Hematochezia Requesting Physician: Emilee Marie DO HISTORY OF PRESENT ILLNESS Ellen Chan is a 78 y.o. female who was recently admitted in April secondary to intracranial hemorrhage, during that admission requiring PEG who presents from care home for hematochezia. History is obtained from chart review and care team given patient is altered. Patient was taken to [facility] CT scan was performed that revealed sigmoid and rectum thickening, with possible active arterial extravasation. Hemoglobin was 13 on arrival at [facility]. She was then transferred to [facility] for escalation of care. She has had no further episodes of hematochezia. Hemoglobin is stable. Hemodynamics are stable. No documentation of anticoagulation in her chart. Patient denies abdominal pain, nausea, vomiting. GI HISTORY SUMMARY TABLE Last EGD Last colonoscopy Primary GI physician PAST MEDICAL, SURGICAL, FAMILY, and SOCIAL HISTORY Past Medical History: Diagnosis Date AAA (abdominal aortic aneurysm) ([facility]) was surgically taken care of 09/2018 GERD (gastroesophageal reflux disease) Hypertension Upper respiratory infection 05/2019 Visual impairment glasses Past Surgical History: Procedure Laterality Date BREAST BIOPSY BREAST SURGERY 1989 BREAST BX CARDIAC SURGERY STENT 2019 CARDIAC SURGERY LEFT VENTRICLE STENT 2018 DILATION AND CURETTAGE, DIAGNOSTIC / THERAPEUTIC 1986 ESOPHAGOGASTRODUODENOSCOPY INSERTION PEG TUBE N/A 04/11/2023 Performed by Dae Bo MD at [facility] HYSTERECTOMY KNEE ARTHROSCOPY Left KNEE ARTHROSCOPY Left REMOVE METAL 2014 LAPAROSCOPIC CHOLECYSTECTOMY N/A 05/26/2019 Performed by Caro Pollard DO at [facility] ORIF WRIST FRACTURE Right Pins No family history on file. Social History: Social History Tobacco Use Smoking status: Former Smokeless tobacco: Never Tobacco comments: QUIT IN JUNE 2019 Vaping Use Vaping Use: Never used Substance Use Topics Alcohol use: Yes Comment: SOMETIMES Drug use: Never MEDICATIONS Allergies: Allergies Allergen Reactions Ciprofloxacin Headache Alendronate Bee Venom Protein (Honey Bee) feels like my eyes are spinning around Tkdocewl-Rtlrbocmlxt-Bmuhavgkq Oxycodone Headache I just don't want to take it Home Medications: Prior to Admission medications Medication Sig Start Date End Date Taking? Authorizing Provider amLODIPine (NORVASC) 10 mg tablet Take 1 tablet (10 mg total) by mouth in the morning. Patient taking differently: Take 0.5 tablets (5 mg total) by mouth in the morning. Hold if SBP <100 . 04/17/23 04/16/24 Yes Artemio Ray MD carvediloL (COREG) 25 mg tablet Take 1 tablet (25 mg total) by mouth in the morning and 1 tablet (25 mg total) before bedtime. Patient taking differently: Take 1 tablet (25 mg total) by mouth in the morning and 1 tablet (25 mg total) before bedtime. Hold if SBP <100. 04/16/23 04/15/24 Yes Artemio Ray MD citalopram (CeleXA) 20 mg tablet Take 1 tablet (20 mg total) by mouth in the morning. Yes Not In System Ref Prov lisinopriL (PRINIVIL,ZESTRIL) 40 mg tablet Take 1 tablet (40 mg total) by mouth in the morning and 1 tablet (40 mg total) before bedtime. Patient taking differently: Take 1 tablet (40 mg total) by mouth in the morning. Hold if SBP <100 . 04/16/23 04/15/24 Yes Artemio Ray MD melatonin (CIRCADIN) tablet Take 1 tablet (3 mg total) by mouth nightly. Yes Not In System Ref Prov metoprolol tartrate (LOPRESSOR) 25 mg tablet Take 1 tablet (25 mg total) by mouth in the morning and 1 tablet (25 mg total) before bedtime. Hold if SBP <100 . 05/03/19 Yes Not In System Ref Prov pantoprazole (PROTONIX) 40 mg EC tablet Take 1 tablet (40 mg total) by mouth every morning before breakfast. 06/04/22 Yes Not In System Ref Prov potassium chloride (K-TAB,KLOR-CON) 10 MEQ CR tablet Take 2 tablets (20 mEq total) by mouth in the morning and 2 tablets (20 mEq total) before bedtime. 02/05/23 Yes Not In System Ref Prov hydroCHLOROthiazide (HYDRODIURIL) 25 mg tablet Take 1 tablet (25 mg total) by mouth daily. Patient not taking: Reported on 06/13/2023 03/17/19 Not In System Ref Prov potassium chloride (KLOR-CON) 20 mEq packet Klor-Con 20 mEq oral packet Take 1 packet 4 times a day by oral route. Patient not taking: Reported on 04/02/2023 Not In System Ref Prov Current Medications: cefTRIAXone (ROCEPHIN) IV, 1,000 mg, intravenous, Q24H metroNIDAZOLE, 500 mg, intravenous, Q8H sodium chloride, 3 mL, intravenous, Q12H DIO PRNs: calcium gluconate, 3,000 mg, PRN calcium gluconate, 4,000 mg, PRN calcium gluconate, 2,000 mg, PRN dextrose, 15 g, PRN dextrose 5 % in water, 100 mL/hr, Continuous PRN dextrose 50 % in water (D50W), 25 mL, PRN glucagon (human recombinant), 1 mg, PRN magnesium sulfate, 2,000 mg, PRN magnesium sulfate, 4,000 mg, PRN potassium chloride in water, 10 mEq, PRN sodium phosphate IV, 20 mmol, PRN Or sodium phosphate IV - central line, 20 mmol, PRN Or sod phos di, mono-K phos mono, 2 tablet, PRN sodium chloride, 3 mL, PRN sodium chloride, 25 mL, PRN sodium chloride 0.9 %, 20 mL/hr, Continuous PRN REVIEW OF SYSTEMS See HPI, otherwise ROS negative as below CONSTITUTIONAL: negative HEENT: negative RESPIRATORY: negative CARDIOVASCULAR: negative GASTROINTESTINAL: as in HPI GENITOURINARY: negative INTEGUMENT/BREAST: negative HEMATOLOGIC/LYMPHATIC: negative ALLERGIC/IMMUNOLOGIC: negative ENDOCRINE: negative MUSCULOSKELETAL: negative NEUROLOGICAL: negative BEHAVIOR/PSYCH: negative OBJECTIVE DATA Vitals: BP (!) 123/95 Pulse 85 Temp 36.7 C (98.1 F) (Oral) Resp 18 Wt 65.1 kg (143 lb 8.3 oz) SpO2 96% BMI 24.64 kg/m GEN: alert, NAD HEENT: EOMI, PERRL, oropharynx non-erythematous without exudate, no oral lesions CV: RRR, no murmur, rub, gallop, no edema PULM: CTAB, symmetric chest rise, no accessory muscle use ABD: soft, non-tender, non-distended, G-tube in place NEURO: no focal deficits, moves all 4 extremities spontaneously SKIN: no rashes PSYCH: normal affect LABS AND IMAGING CBC: Lab Results Component Value Date WBC 8.8 06/13/2023 HGB 11.4 (L) 06/13/2023 HCT 33.9 (L) 06/13/2023 MCV 85 06/13/2023 RDW 16.5 (H) 06/13/2023 PLT 66 (L) 06/13/2023 CMP: Lab Results Component Value Date K 3.1 (L) 06/13/2023 CL 110 (H) 06/13/2023 CO2 25 06/13/2023 BUN 17 06/13/2023 GLU 82 06/13/2023 GLU 132 (H) 04/17/2023 Lipase: No components found for: LIP Amylase: No results found for: JODY Ionized Calcium: No components found for: IONCA Magnesium: Lab Results Component Value Date MG 1.4 (L) 06/13/2023 Phosphorus: No components found for: PO4 PT/INR: Lab Results Component Value Date INR 1.4 (H) 06/13/2023 TSH: No results found for: TSH VITAMIN B12: No components found for: B12 FOLATE: Lab Results Component Value Date FOLATE 12.0 04/09/2023 IRON: No results found for: FE Iron Saturation: No components found for: PERCENTFESAT TIBC: Lab Results Component Value Date TIBC 217 (L) 04/09/2023 FERRITIN: Lab Results Component Value Date FERRITIN 618 (H) 04/09/2023 MICRO Blood Culture: No components found for: CBLOOD , CFUNGUSBL Stool Culture: No components found for: CSTOOL IMAGING: No results found. ASSESSMENT AND PLAN Ellen Chan is a 78 y.o. female who was recently admitted in April secondary to intracranial hemorrhage, during that admission requiring PEG who presents from care home for hematochezia. History is obtained from chart review and care team given patient is altered. Patient was taken to [facility] CT scan was performed that revealed sigmoid and rectum thickening, with possible active arterial extravasation. Hemoglobin was 13 on arrival at [facility]. She was then transferred to [facility] for escalation of care. She has had no further episodes of hematochezia. Hemoglobin is stable. Hemodynamics are stable. No documentation of anticoagulation in her chart. Patient denies abdominal pain, nausea, vomiting. 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 POA is okay with reversing code status for duration of colonoscopy to full code. Monitor for hematochezia Trend hemoglobin and transfuse as needed Recommend vascular surgery consultation given numerous vascular findings on CT This consult will be discussed with attending physician Dr. Ivory. If you have any questions please feel free to contact the GI Service. Thank you for allowing us to participate in the care of Ellen Chan. [facility] GI Service 6 am to 4 pm weekdays in house 4 pm to 6 am or weekends please contact the centralized traffic control operator to page the fellow spa concierge Associated attestation - David Ivory MD - 06/13/2023 1:50 PM EST Seen and discussed with fellow, agree with history/physical exam/plan. [facility] History and physical note IMS-4 HISTORY AND PHYSICAL Date of Service: 06/13/2023 Patient Name: Ellen Chan : 1945 PCP: NITHYA MALLOY MD Chief Complaint: blood in stool HPI: Ellen Chan is a 78 y.o. female wit [facility] who was recently discharged from [facility] 04/16/23 after thalamic intracranial hemorrhage to LTC facility. She initially presented to [facility] on 3/5 due to care home staff concerns that she was having blood in her stool. CT abdomen at [facility] revealed active arterial extravasation within the rectum and findings concerning for ischemic colitis. Hemoglobin was between 11-13, not clear if she received any transfusion there. She was transferred to [facility] for vascular, IR, general surgery evaluation. On my evaluation patient is oriented x2, which is her baseline. She denies any abdominal pain, endorses mild nausea and thinks that she may have had blood in her stool but does not remember much. Denies dizziness lightheadedness, shortness of breath, palpitations. Vitals on admission are stable within normal limits. Past Medical History: Past Medical History: Diagnosis Date AAA (abdominal aortic aneurysm) ([facility]) was surgically taken care of 09/2018 GERD (gastroesophageal reflux disease) Hypertension Upper respiratory infection 05/2019 Visual impairment glasses Past Surgical History: Past Surgical History: Procedure Laterality Date BREAST BIOPSY BREAST SURGERY 1989 BREAST BX CARDIAC SURGERY STENT 2018 CARDIAC SURGERY LEFT VENTRICLE STENT 2018 DILATION AND CURETTAGE, DIAGNOSTIC / THERAPEUTIC 1986 ESOPHAGOGASTRODUODENOSCOPY INSERTION PEG TUBE N/A 04/11/2023 Performed by Dae Bo MD at [facility] HYSTERECTOMY KNEE ARTHROSCOPY Left KNEE ARTHROSCOPY Left REMOVE METAL 2014 LAPAROSCOPIC CHOLECYSTECTOMY N/A 05/26/2019 Performed by Caro Pollard DO at [facility] ORIF WRIST FRACTURE Right Pins Home Medications: Prior to Admission medications Medication Sig Start Date End Date Taking? Authorizing Provider amLODIPine (NORVASC) 10 mg tablet Take 1 tablet (10 mg total) by mouth in the morning. 04/17/23 04/16/24 Artemio Ray MD carvediloL (COREG) 25 mg tablet Take 1 tablet (25 mg total) by mouth in the morning and 1 tablet (25 mg total) before bedtime. 04/16/23 04/15/24 Artemio Ray MD hydroCHLOROthiazide (HYDRODIURIL) 25 mg tablet Take 1 tablet (25 mg total) by mouth daily. 03/17/19 Not In System Ref Prov lisinopriL (PRINIVIL,ZESTRIL) 40 mg tablet Take 1 tablet (40 mg total) by mouth in the morning and 1 tablet (40 mg total) before bedtime. 04/16/23 04/15/24 Artemio Ray MD metoprolol tartrate (LOPRESSOR) 25 mg tablet Take 1 tablet (25 mg total) by mouth in the morning and 1 tablet (25 mg total) before bedtime. 05/03/19 Not In System Ref Prov pantoprazole (PROTONIX) 40 mg EC tablet Take 1 tablet (40 mg total) by mouth every morning before breakfast. 06/04/22 Not In System Ref Prov potassium chloride (K-TAB,KLOR-CON) 10 MEQ CR tablet Take 2 tablets (20 mEq total) by mouth in the morning and 2 tablets (20 mEq total) before bedtime. 02/05/23 Not In System Ref Prov potassium chloride (KLOR-CON) 20 mEq packet Klor-Con 20 mEq oral packet Take 1 packet 4 times a day by oral route. Patient not taking: Reported on 04/02/2023 Not In System Ref Prov Allergies: Ciprofloxacin, Alendronate, Bee venom protein (honey bee), Guyxeyms-jztrzndvbeb-kcowyilnr, and Oxycodone Social History: reports that she has quit smoking. She has never used smokeless tobacco. She reports current alcohol use. She reports that she does not use drugs. Family History: No family history on file. Review of Systems: Review of Systems Unable to perform ROS: Dementia Vital Signs and Physical Exam: There were no vitals taken for this visit. No intake or output data in the 24 hours ending 06/13/23 0318 Admission weight: Physical Exam Constitutional: Comments: Alert oriented x2 HENT: Head: Normocephalic and atraumatic. Cardiovascular: Rate and Rhythm: Normal rate and regular rhythm. Pulses: Normal pulses. Heart sounds: Normal heart sounds. Pulmonary: Effort: Pulmonary effort is normal. Breath sounds: Normal breath sounds. Abdominal: General: Abdomen is flat. Palpations: Abdomen is soft. Musculoskeletal: Right lower leg: No edema. Left lower leg: No edema. Neurological: Comments: Left sided residual weakness Labs/Imaging: No results found for this or any previous visit (from the past 24 hour(s)). Microbiology Results No results found for the last 168 hours. No results found. 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 Every effort was made to ensure accuracy; however, inadvertent computerized insurance sales manager errors may be present. Glory Richmond PGY-2 Internal Medicine [facility] 06/13/23 Associated attestation - Jude Marti MD - 06/13/2023 2:41 PM EST ATTENDING ATTESTATION I personally examined the patient on rounds with the resident. I repeated the felix components of the exam. I confirm the note and agree with the assessment and plan. Please note there may be additional comments below. Comments: Delayed entry. The patient was examined earlier this morning on rounds. Admitted for GI bleed, acute blood loss anemia and concern regarding ischemic colitis on imaging. Flagyl and rocephin started. Hb seems stable this morning, will monitor closely. GI consulted. General surgery input noted as well. 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 Incidental R renal mass/complex cyst. This will need outpatient follow up with Urology/follow up imaging. She recently had ICH in L thalamus (05/01) with residual weakness. Her dementia/memory impairment complicates her care and exam. - JUDE MARTI MD 06/13/23 2:33 PM [facility] Work Phone: 05-31-2023 Miscellaneous Notes Patient's granddaughter (Elvin LOCK) would like MRI order faxed to facility patient is residing at. Patient is currently at [facility]. Noted that Dr. Wu asked pt to complete MRI brain wwo contrast; however, there is no order. Please advise. Ordered. Faxed the order to the facility. Confirmation received. [facility] Telephone encounter Note Patient's granddaughter (Elvin LOCK) would like MRI order faxed to facility patient is residing at. Patient is currently at [facility]. [facility] 05-31-2023 Telephone encounter Note Noted that Dr. Wu asked pt to complete MRI brain wwo contrast; however, there is no order. Please advise. [facility] 05-31-2023 Telephone encounter Note Ordered. [facility] Work Phone: 05-31-2023 Telephone encounter Note Faxed the order to the facility. Confirmation received. [facility] 05-23-2023 History of Present illness Narrative Images from the original note were not included. [facility] Tel[facility]roke [facility] Visit Date of Visit: 05/23/2023 Patient Location: facility Patient Consent obtained: yes, Verbal Prior to beginning this clinical portion of this visit, the patient/family has consented to the use of this telemedicine E-visit and initiated the contact. They have also consented to using [employer] as a communications platform, understanding the privacy limitations, and telehealth and HIPAA waivers as established in the [facility] expansion of telehealth benefits under the 1135 waiver authority and the Coronavirus Preparedness and Response Supplemental Appropriations Act Dated June and as summarized in June 23, 2019 [facility] FAQ on the Coronavirus (COVID-19) public health emergency. The patient has an established relationship with ca and was last seen on the inpatient [...] that time. Patient was discharged to a residential facility for which he currently resides. Patient [...] History: Diagnosis Date AAA (abdominal aortic aneurysm) ([facility]) was surgically taken care of 09/2018 GERD (gastroesophageal reflux disease) Hypertension Upper respiratory infection 05/2019 Visual impairment glasses Past Surgical History: Procedure Laterality Date BREAST BIOPSY BREAST SURGERY 1989 BREAST BX CARDIAC SURGERY STENT 2018 CARDIAC SURGERY LEFT VENTRICLE STENT 2018 DILATION AND CURETTAGE, DIAGNOSTIC / THERAPEUTIC 1986 ESOPHAGOGASTRODUODENOSCOPY INSERTION PEG TUBE N/A 04/11/2023 Performed by Dae Bo MD at [facility] HYSTERECTOMY KNEE ARTHROSCOPY Left KNEE ARTHROSCOPY Left REMOVE METAL 2014 LAPAROSCOPIC CHOLECYSTECTOMY N/A 05/26/2019 Performed by Caro Pollard DO at [facility] ORIF WRIST FRACTURE Right Pins Medication List [...] feels like my eyes are spinning around Pzripran-Wzgseyeizhg-Rjbnohdst Oxycodone Headache I just don't want to take it Social Reviewed: TOBACCO:.none ETOH:none RECREATIONAL DRUG USE: none No family history on file. No family history on file. Physical Exam: There were no vitals filed for this visit. Please note that this exam was done through telemedicine, thus specific portions may be limited. NIH Stroke Scale Person Administering Scale: Marita Wu MD 1a Level of consciousness: 0=alert; [...] feel free to contact our office at [facility]. This is a telemedicine visit. Verbal [...] patient needs it documented in this encounter [facility] 05-06-2023 Miscellaneous Notes Sue Chaparro at [place] [phone] ext [phone] states that family would to know if patient could have a video visit on 05/[address] Wu? Caller states that family fears that patient will not do well in wheelchair long enough for patient to be seen in office. Caller has requested a call back. Called facility back and updated the appt to video documented in this encounter [facility] 05-06-2023 Telephone encounter Note Sue Chaparro at [place] [phone] ext [phone] states that family would to know if patient could have a video visit on 05/[address] Wu? Caller states that family fears that patient will not do well in wheelchair long enough for patient to be seen in office. Caller has requested a call back. [facility] 05-06-2023 Telephone encounter Note Called facility back and updated the appt to video [facility] 05-01-2023 Miscellaneous Notes [facility] DISCHARGE FOLLOW UP SHE SAID FOR NOW SHE IS FOLLOWING WITH HER PCP documented in this encounter [facility] 05-01-2023 Telephone encounter Note SUE [facility] CALLED TO CANCEL HOSPITAL DISCHARGE FOLLOW UP SHE SAID FOR NOW SHE IS FOLLOWING WITH HER PCP [facility] 04-18-2023 Evaluation note Encounter Date Diagnosis Assessment Notes Apr, 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ICD-10 - I61.0) Reviewed PMR consult. Forwarded info to Krysta as well. Scheduled to see neurology in next 1-2 weeks. Continue PT/OT as able Apr, Thrombocytopenia (ICD-10 - D69.6) Hematology assessed at [facility] - followup as scheduled. Apr, Essential (primary) hypertension (ICD-10 - I10) Updated medication list. Will continue to monitor [place] Other 01-10-2024 History of Present illness Narrative* [...] follow up? ----- Message ----- From: Chen Ahn APRN-SHAMEKA Sent: 04/12/2023 7:23 AM EST To: Ugo Marie MD; [facility] Onc Scheduling; * Subject: D/C will need follow up Good morning! Patient admitted for brain bleed, found to have persistent thrombocytopenia. Family indicated they believe she's always had low platelet count. Patient will need to follow up with Dr. 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 Thanks! Armand [facility] Miscellaneous Notes* Discharge Planning Note - GAURAV Gandhi - 04/17/2023 8:59 AM EST Images from the original note were not included. DISCHARGE PLANNING NOTE REJI notified that transport was delayed last night and transport was rescheduled for 8am today and per PTN they are running behind and will be here about 930am to pick pt up and take to [facility]. REJI notified the facility , RN, and left msg with pt gómez/ASHVIN Celeste to inform of pt leaving this am. CRF was sent, HENS completed. S tx cert in dc packet. Update pt yuliya called back and is aware of pt leaving today at 930am to [facility]. Services Requested: Services Requested Discharge Disposition: Non [facility] SNF Name: [facility] Fax Number: . [facility] Does the patient need discharge transportation arranged?: Yes Transportation Arranged: Ambulance Patient choice offered: Yes List Provided: Yes CarePort List Provided: Nursing Home Facility Initial DC Assessment Completed: Yes Patient Goals: Patient/Caregiver Goals Patient/Caregiver Goals: Nursing Home Care Skilled Nuring Care: Skilled Care (Short Term) Goals: Goals discharge (pt-stated) Evaluation of progress towards goal: to discharge to a residential facility for rehab - GAURAV Gandhi 04/17/23 9:01 AM * Discharge Planning Note - Alissa Cho - 04/17/2023 8:56 AM EST DISCHARGE PLANNING NOTE Per Elio at [facility] PTN BLS is on their way and should be up the the floor within 30 min, about 9:25am. Epic chat sent to REJI Rogers. * Discharge Planning Note - GAURAV [...] Non [facility] SNF Name: [facility] Fax Number: . SNF Does the patient need discharge transportation arranged?: Yes Transportation Arranged: Ambulance Patient choice offered: Yes List Provided: Yes CarePort List Provided: Nursing Home Facility Initial DC Assessment Completed: Yes Patient Goals: Patient/Caregiver Goals Patient/Caregiver Goals: Nursing Home Care Skilled Nuring Care: Skilled Care (Short Term) Goals: Goals discharge (pt-stated) Evaluation of progress towards goal: to discharge to a residential facility for rehab - GAURAV Gandhi 04/16/23 [...] Score of =/> 25 or indicated by [facility] Assessment Goal: Patient should be free from fall Description: Interventions: 1. [place] to environment 2. Hourly rounds addressing the [...] 25. Consider appropriateness of medical or non-medical records auditor 26. Set up voiding schedule as appropriate (every 2 hours) Note: Evaluation of progress towards goal: pt will remain free from falls during this shift, call light within pt reach, staff will perform frequent rounding to assure pt safety * Discharge Planning Note - Alissa Cho - 04/16/2023 11:06 AM EST DISCHARGE PLANNING NOTE BLS transport via PTN to [facility] 04/16/23 at 5:00pm. Confirmed in [facility] * [...] Safety measures maintained throughout shift.Hourly rounding completed. [place] precautions followed. Problem: Moderate - High Risk Fall Score Description: [place] Fall Score of =/> 25 or indicated by [facility] Assessment Goal: Patient should be free from fall Description: Interventions: 1. [place] to environment 2. Hourly rounds addressing the [...] 25. Consider appropriateness of medical or non-medical records auditor 26. Set up voiding schedule as appropriate [...] and monitor nutritional status daily and consult professional fighter if indicated 10. Implement neutropenic guidelines as [...] supplement as ordered 13. Collaborate with clinical professional fighter 14. Include patient/ patient's data entry representative [...] be free from fall Description: Interventions: 1. [place] to environment 2. Hourly rounds addressing the [...] 25. Consider appropriateness of medical or non-medical records auditor 26. Set up voiding schedule as appropriate [...] Free from restraint(s) (Restraint for Interference with Brick Kiln Burner) Description: INTERVENTIONS: 1. ONCE/SHIFT or MINIMUM Q12H: [...] DISCHARGE PLANNING NOTE Referral sent to [facility] (P# ; F# ) * Discharge Planning Note - GAURAV Gandhi - 04/15/2023 10:40 AM EST DISCHARGE PLANNING NOTE Discussed pt during DTR's. DC plan SNF: referral to [facility] per family request. Awaiting acceptance. Family states they do not want [facility] now. SW did leave msg with pt gómez Roula who is POA to confirm final SNF choice. No auth needed. Will need BLS transport at pr. SW to follow Update: SW received call from pt gómez Roula who is POA and she states she would like patient to go to [facility] not [facility]. SW updated grandtr that [facility] has accepted pt andwe are looking at likely dc tomorrow. Grandtr agreeable to plan. Update : negrotirso Celeste called back and now states she was told that [facility] has covid patients and they now would like [facility], referral sent, awaiting acceptance with [facility]. - GAURAV Gandhi 04/15/23 10:41 AM * Discharge Planning Note - Sandy Ackerman - 04/15/2023 9:49 AM EST DISCHARGE PLANNING NOTE Clinical updates sent to [facility] (P#: ; F#: ) * PT/OT/PLANNER - Mena Pleitez PTA - 04/15/2023 9:37 AM EST Physical Therapy Treatment Discharge Recommendations PT Recommendations: Nursing Home Facility 6 Clicks: Basic Mobility Turning from [...] RN Hemal Equipment: PEG feeding tube, O2, lenz, abdominal binder, maxi sophia lift Telemetry/[place] Machine Operator: Yes Oxygen Used: 2L O2 Other: high [...] Date/Time User Outcome 04/15/23 0936 Mena Pleitez, CYTOLOGY LABORATORY MANAGER Not Progressing 04/12/23 0939 Mena Pleitez, CYTOLOGY LABORATORY MANAGER Not Progressing Problem: Sitting Balance Dates: Start: 04/04/23 Disciplines: PT Goal: Improve balance to good Dates: Start: 04/04/23 Expected End: 05/03/23 Description: Static Dynamic with UE support for safe ADLs and transfers Disciplines: PT Outcomes Date/Time User Outcome 04/15/23 0936 Mena Pleitez, CYTOLOGY LABORATORY MANAGER Not Progressing 04/12/23 0939 Mena Pleitez, CYTOLOGY LABORATORY MANAGER Progressing Problem: Standing Balance Dates: Start: [...] Date/Time User Outcome 04/15/23 0936 Mena Pleitez, CYTOLOGY LABORATORY MANAGER Not Progressing 04/12/23 0939 Mena Pleitez, CYTOLOGY LABORATORY MANAGER Not Progressing Problem: Transfers Dates: Start: 04/04/23 Disciplines: PT Goal: Patient will perform transfers with Moderate Assist Dates: Start: 04/04/23 Expected End: 05/03/23 Description: Goal Description: sit to stand with SPH equipment/UE support Disciplines: PT Physical Therapy Care Plan (Resolved) There are no resolved problems. Principal Problem: 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[facility]) Associated attestation - Sun Lamb PT - 04/15/2023 3:14 PM EST I have reviewed and agree with this note and education documentation for this visit. * PT/OT/PLANNER - MARISOL Douglas - 04/15/2023 9:34 AM EST Occupational Therapy Treatment Discharge Recommendations OT Recommendations : Nursing Home Facility 6 Clicks: Daily Activity Putting on [...] per RN Hemal Equipment: peg, abdominal binder, lenz, bed alarm, repositioning sling, maxi sophia, Telemetry/[place] Machine Operator: Yes Oxygen Used: 2L Other: high fall [...] Pedraza-Arredondo, JULIO/L Not Progressing 04/12/2331 Key Pedraza-Arredondo, TOE CLOSING MACHINE TENDER/L Progressing Problem: Bed Mobility Dates: Start: 04/04/23 Disciplines: OT Goal: Patient will perform bed mobility with Minimum Assist Dates: Start: 04/04/23 Expected End: 05/02/23 Description: Goal Description: Disciplines: OT Outcomes Date/Time User Outcome 04/15/23923 Key Pedraza-Arredondo, TOE CLOSING MACHINE TENDER/L Not Progressing 04/12/2331 Key Pedraza-Arredondo, TOE CLOSING MACHINE TENDER/L Not Progressing Problem: Other (Customize) Dates: Start: 04/04/23 Disciplines: OT Goal: Improve Dates: Start: 04/04/23 Expected End: 05/02/23 Description: Goal Description: improve assist with self care to Mod A or less Disciplines: OT Outcomes Date/Time User Outcome 04/15/23923 Key Pedraza-Arredondo, JULIO/L Not Progressing 04/12/2331 Key Pedraza-Arredondo, JULIO/L Progressing Problem: ROM Dates: Start: 04/04/23 Disciplines: OT Goal: Improve ROM Dates: Start: 04/04/23 Expected End: 05/02/23 Description: Of extremity/ location: RUE as able A/AA/PROM all joints to end range of motion To facilitate: improve assist with self care and mobility tasks Disciplines: OT Outcomes Date/Time User Outcome 04/15/23923 Key Pedraza-Arredondo, JULIO/L Not Progressing 04/12/2331 Key Pedraza-Arredondo, JULIO/L Not Progressing Problem: Sitting Balance Dates: Start: 04/04/23 Disciplines: OT Goal: Improve balance to good Dates: Start: 04/04/23 Expected End: 05/02/23 Description: Static Dynamic Disciplines: OT Outcomes Date/Time User Outcome 04/15/23 0924 Key Tanner JULIO/L Not Progressing 04/12/23 0931 Key Tanner JULIO/L Progressing Problem: Standing Balance Dates: Start: [...] no resolved problems. Principal Problem: 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[facility]) Associated attestation - Antolin Rodriguez OTR/L - [...] and monitor nutritional status daily and consult professional fighter if indicated 10. Implement neutropenic guidelines as [...] Score of =/> 25 or indicated by [facility] Assessment Goal: Patient should be free from fall Description: Interventions: 1. [place] to environment 2. Hourly rounds addressing the [...] 25. Consider appropriateness of medical or non-medical records auditor 26. Set up voiding schedule as appropriate [...] and monitor nutritional status daily and consult professional fighter if indicated 10. Implement neutropenic guidelines as [...] supplement as ordered 13. Collaborate with clinical professional fighter 14. Include patient/ patient's data entry representative [...] Score of =/> 25 or indicated by [facility] Assessment Goal: Patient should be free from fall Description: Interventions: 1. [place] to environment 2. Hourly rounds addressing the [...] 25. Consider appropriateness of medical or non-medical records auditor 26. Set up voiding schedule as appropriate [...] injury from restraints (Restraint for Interference with Brick Kiln Burner) Description: INTERVENTIONS: 1. Determine that other, less [...] Free from restraint(s) (Restraint for Interference with Brick Kiln Burner) Description: INTERVENTIONS: 1. ONCE/SHIFT or MINIMUM Q12H: [...] measures maintained throughout shift. Hourly rounding completed. [place] precautions followed. Problem: Moderate - High Risk Fall Score Description: [place] Fall Score of =/> 25 or indicated by [facility] Assessment Goal: Patient should be free from fall Description: Interventions: 1. [place] to environment 2. Hourly rounds addressing the [...] 25. Consider appropriateness of medical or non-medical records auditor 26. Set up voiding schedule as appropriate [...] and monitor nutritional status daily and consult professional fighter if indicated 10. Implement neutropenic guidelines as [...] and monitor nutritional status daily and consult professional fighter if indicated 10. Implement neutropenic guidelines as [...] progress towards goal: plan to d/c to residential Problem: Potential for Compromised Skin Integrity Goal: [...] PM EST DISCHARGE PLANNING NOTE Updates to [facility] (P#: ; F#: ) * Discharge [...] - GAURAV Gandhi 04/12/23 4:22 PM * PT/OT/PLANNER - Mena Pleitez PTA - 04/12/2023 9:43 AM EST Physical Therapy Treatment Discharge Recommendations PT Recommendations: Nursing Home Facility 6 Clicks: Basic Mobility Turning from [...] ELIZABETH Adler Equipment: PEG feeding tube, O2, lenz, maxi sophia lift, chair alarm Telemetry/Vanstone Machine Operator: Yes Oxygen Used: 2L O2 Other: high [...] 04/12/23 09Mykel Pleitez PTA Not Progressing Problem: Sitting Balance Dates: Start: 04/04/23 Disciplines: PT Goal: Improve balance to good Dates: Start: 04/04/23 Expected End: 05/03/23 Description: Static Dynamic with UE support for safe ADLs and transfers Disciplines: PT Outcomes Date/Time User Outcome 04/12/23 0939 Mena Pleitez PTA Progressing Problem: Standing Balance Dates: [...] 04/12/23 09Mykel Pleitez PTA Not Progressing Problem: Transfers Dates: Start: 04/04/23 Disciplines: PT Goal: Patient will perform transfers with Moderate Assist Dates: Start: 04/04/23 Expected End: 05/03/23 Description: Goal Description: sit to stand with SPH equipment/UE support Disciplines: PT Physical Therapy Care Plan (Resolved) There are no resolved problems. Principal Problem: 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[facility]) Associated attestation - Irvin Gibbs, PT - 04/12/2023 10:33 AM EST I have reviewed and agree with this note and education documentation for this visit. * PT/OT/PLANNER - JULIO Douglas/Cyril - 04/12/2023 9:38 AM EST Occupational Therapy Treatment Discharge Recommendations OT Recommendations : Nursing Home Facility 6 Clicks: Daily Activity Putting on and taking off regular lower body clothing?: Total Bathing (including washing, rinsing, drying)?: Total Toileting, which includes using toilet, bedpan or urinal?: Total Putting on and taking off regular upper body clothing?: Total Taking care of personal grooming such as brushing teeth?: A lot Eating meals?: Total Scoring Daily Activity Raw Score: 7 [facility] G Code Modifier: CM Therapy Plan Need [...] O2, repositioning sling, chair alarm, maxi sophia, lenz, Telemetry/Vanstone Machine Operator: Yes Oxygen Used: 2L Other: high fall [...] Date/Time User Outcome 04/12/23 0931 Key Hart, TOE CLOSING MACHINE TENDER/L Progressing Problem: Bed Mobility Dates: Start: 04/04/23 Disciplines: OT Goal: Patient will perform bed mobility with Minimum Assist Dates: Start: 04/04/23 Expected End: 05/02/23 Description: Goal Description: Disciplines: OT Outcomes Date/Time User Outcome 04/12/23 0931 Key Hart, TOE CLOSING MACHINE TENDER/L Not Progressing Problem: Other (Customize) Dates: Start: 04/04/23 Disciplines: OT Goal: Improve Dates: Start: 04/04/23 Expected End: 05/02/23 Description: Goal Description: improve assist with self care to Mod A or less Disciplines: OT Outcomes Date/Time User Outcome 04/12/23 0931 Key Hart, TOE CLOSING MACHINE TENDER/L Progressing Problem: ROM Dates: Start: 04/04/23 Disciplines: OT Goal: Improve ROM Dates: Start: 04/04/23 Expected End: 05/02/23 Description: Of extremity/ location: RUE as able A/AA/PROM all joints to end range of motion To facilitate: improve assist with self care and mobility tasks Disciplines: OT Outcomes Date/Time User Outcome 04/12/23 0931 Key Hart, TOE CLOSING MACHINE TENDER/L Not Progressing Problem: Sitting Balance Dates: Start: 04/04/23 Disciplines: OT Goal: Improve balance to good Dates: Start: 04/04/23 Expected End: 05/02/23 Description: Static Dynamic Disciplines: OT Outcomes Date/Time User Outcome 04/12/23 0931 Key Hart, JULIO/L Progressing Problem: Standing Balance Dates: Start: [...] no resolved problems. Principal Problem: 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[facility]) Associated attestation - Sue Rodriguez OTR/L - [...] clinical judgment when addressing the question(s) below. SCara Mcnamara, JOHN is documented in the Medical [...] to contact me. Herlinda NEVILLE, RN Clinical Library Services [facility] Clinical Revenue Cycle Email: [email or web address] The patient's Clinical Indicators include: See Query. CDI RESPONSE TEXT: Acute kidney injury Query created by: Leonila Leonard on 04/11/2023 8:23 AM Electronically signed by: Haseeb Mcnamara CNP 04/12/2023 6:05 AM * Plan of Care - Ethel Marshall RN - 04/12/2023 3:16 AM EST Problem: Safety - Medical Restraint Goal: Remains free of injury from restraints (Restraint for Interference with Brick Kiln Burner) Description: INTERVENTIONS: 1. Determine that other, less [...] member is at bedside. Hourly rounding completed. [place] precautions followed. Problem: Moderate - High Risk Fall Score Description: [place] Fall Score of =/> 25 or indicated by [facility] Assessment Goal: Patient should be free from fall Description: Interventions: 1. [place] to environment 2. Hourly rounds addressing the [...] 25. Consider appropriateness of medical or non-medical records auditor 26. Set up voiding schedule as appropriate [...] and monitor nutritional status daily and consult professional fighter if indicated 10. Implement neutropenic guidelines as [...] supplement as ordered 13. Collaborate with clinical professional fighter 14. Include patient/ patient's data entry representative [...] Score of =/> 25 or indicated by [facility] Assessment Goal: Patient should be free from fall Description: Interventions: 1. [place] to environment 2. Hourly rounds addressing the [...] 25. Consider appropriateness of medical or non-medical records auditor 26. Set up voiding schedule as appropriate [...] injury from restraints (Restraint for Interference with Brick Kiln Burner) Description: INTERVENTIONS: 1. Determine that other, less [...] with transmission of infection Additional Comments: * PT/OT/PLANNER - MARISOL Douglas - 04/11/2023 1:20 PM [...] endoscopeand snare were then withdrawn. A 20 Armenian PEG tube was secured to the wire [...] the felix components of the procedure. * PT/OT/PLANNER - Mena Pleitez PTA - 04/11/2023 1:00 [...] and monitor nutritional status daily and consult professional fighter if indicated 10. Implement neutropenic guidelines as [...] supplement as ordered 13. Collaborate with clinical professional fighter 14. Include patient/ patient's data entry representative [...] be free from fall Description: Interventions: 1. [place] to environment 2. Hourly rounds addressing the [...] 25. Consider appropriateness of medical or non-medical records auditor 26. Set up voiding schedule as appropriate [...] injury from restraints (Restraint for Interference with Brick Kiln Burner) Description: INTERVENTIONS: 1. Determine that other, less [...] Free from restraint(s) (Restraint for Interference with Brick Kiln Burner) Description: INTERVENTIONS: 1. ONCE/SHIFT or MINIMUM Q12H: [...] Patient Active Problem List Diagnosis 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[facility]) Last Chest XRAY: Reviewed Pulmonary History: see [...] EST DISCHARGE PLANNING NOTE Sent updates to [facility] (P#: ; F#: ) * Discharge Planning Note - GAURAV Gandhi - 04/10/2023 12:07 PM EST DISCHARGE PLANNING NOTE REJI received call from pt gómez LOCK, family is requesting IP rehab placement at [facility] IP rehab. REJI explained to pt gómez that currently does not appear pt will meet criteria for IPR. REJI explained the difference between IPR and SNF. SW did request PM&R consult per family request. Will see what they recommend and will have therapy work with pt again and see how pt is doing. Otherwise [facility] has accepted pt. Awaiting nutrition plan, [...] and monitor nutritional status daily and consult professional fighter if indicated 10. Implement neutropenic guidelines as [...] supplement as ordered 13. Collaborate with clinical professional fighter 14. Include patient/ patient's data entry representative [...] be free from fall Description: Interventions: 1. [place] to environment 2. Hourly rounds addressing the [...] 25. Consider appropriateness of medical or non-medical records auditor 26. Set up voiding schedule as appropriate [...] injury from restraints (Restraint for Interference with Brick Kiln Burner) Description: INTERVENTIONS: 1. Determine that other, less [...] Free from restraint(s) (Restraint for Interference with Brick Kiln Burner) Description: INTERVENTIONS: 1. ONCE/SHIFT or MINIMUM Q12H: [...] and monitor nutritional status daily and consult professional fighter if indicated 10. Implement neutropenic guidelines as [...] supplement as ordered 13. Collaborate with clinical professional fighter 14. Include patient/ patient's data entry representative [...] be free from fall Description: Interventions: 1. [place] to environment 2. Hourly rounds addressing the [...] 25. Consider appropriateness of medical or non-medical records auditor 26. Set up voiding schedule as appropriate [...] injury from restraints (Restraint for Interference with Brick Kiln Burner) Description: INTERVENTIONS: 1. Determine that other, less [...] Free from restraint(s) (Restraint for Interference with Brick Kiln Burner) Description: INTERVENTIONS: 1. ONCE/SHIFT or MINIMUM Q12H: [...] of progress towards goal: Airway maintained * PT/OT/PLANNER - Rosaliarey Murphy CCC-PLANNER - 04/09/2023 10:42 AM EST Speech Therapy [...] alternative means of nutrition and hydration Discharge: residential facility Precautions Aspiration precautions Plan Plan of [...] Dysphagia Problem: Swallowing Dates: Start: 04/01/23 Disciplines: PLANNER Goal: LTG: Patient will tolerate least restrictive diet recommended by PLANNER without signs and symptoms of aspiration 90% of the time Dates: Start: 04/01/23 Expected End: 05/02/23 Disciplines: PLANNER Goal: STG: Patient will complete safety strategies with minimal assistance during PO intake 90% of the time Dates: Start: 04/01/23 Expected End: 05/02/23 Disciplines: PLANNER Goal: STG: Patient will tolerate therapeutic feeding trials of advanced textures with 90% accuracy with minimal cueing Dates: Start: 04/01/23 Expected End: 05/02/23 Disciplines: PLANNER Template: ST - Rehab Speech Problem: Auditory Comprehension Dates: Start: 04/01/23 Disciplines: PLANNER Goal: LTG: Patient will comprehend communication related to basic medical and social needs and utilize compensatory strategies to maintain safety in a functional living environment Dates: Start: 04/01/23 Expected End: 05/02/23 Disciplines: PLANNER Goal: STG: Patient will answer complex yes/no questions with 90% accuracy with minimal cueing Dates: Start: 04/01/23 Expected End: 05/02/23 Disciplines: PLANNER Outcomes Date/Time User Outcome 04/09/23 1044 Rosalia Murphy CCC-PLANNER Not Progressing Problem: Cognitive Linguistic Dates: Start: 04/01/23 Disciplines: PLANNER Goal: LTG: Patient will display functional cognitive-linguistic skills to demonstrate appropriate communication and safety within daily activities in a functional living environment Dates: Start: 04/01/23 Expected End: 05/02/23 Disciplines: PLANNER Goal: STG: Patient will recall information discussed during therapy session via retelling/answeringquestions with 90% accuracy with minimal cueing Dates: Start: 04/01/23 Expected End: 05/02/23 Disciplines: PLANNER Problem: High Level Language Dates: Start: 04/01/23 Disciplines: PLANNER Goal: LTG: Patient will demonstrate use of self-awareness, goal setting, planning, initiation, self-monitoring and problem solving during daily activities to improve safety and awareness in a functional living environment Dates: Start: 04/01/23 Expected End: 05/02/23 Disciplines: PLANNER Goal: STG: Patient will demonstrate functional problem solving and safety awareness with 90% accuracy in daily living tasks in order to increase safe interactions with environment and decrease assistance from caregivers Dates: Start: 04/01/23 Expected End: 05/02/23 Disciplines: PLANNER Goal: STG: Patient will complete simple to complex organization, scheduling, planning and reasoningtasks to improve problem solving and safety awareness with 90% accuracy with minimal cueing Dates: Start: 04/01/23 Expected End: 05/02/23 Disciplines: PLANNER Problem: Speech Production Dates: Start: 04/01/23 Disciplines: PLANNER Goal: LTG: Patient will develop functional and intelligible speech and utilize compensatory strategies through the use of adequate labial and lingual function, increased articulatory precision and speech prosody Dates: Start: 04/01/23 Expected End: 05/02/23 Disciplines: PLANNER Goal: STG: Patient will complete rapid alternating verbal sequences (tongue twisters) with improvedarticulatory precision with 90% accuracy with minimal cueing Dates: Start: 04/01/23 Expected End: 05/02/23 Disciplines: PLANNER Problem: Verbal Expression Dates: Start: 04/01/23 Disciplines: PLANNER Goal: LTG: Patient will utilize compensatory strategies to communicate wants and needs effectively to different conversational partners, maintain safety and participate socially in a functional living environment Dates: Start: 04/01/23 Expected End: 05/02/23 Disciplines: PLANNER Goal: STG: Patient will complete simple to complex divergent and convergent naming tasks with 90% accuracy with minimal cueing to improve thought organization Dates: Start: 04/01/23 Expected End: 05/02/23 Disciplines: PLANNER Outcomes Date/Time User Outcome 04/09/23 1044 BARRINGTON Meneses Not Progressing Speech Therapy Care Plan (Resolved) There are no resolved problems. Principal Problem: 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CMS-HCC) * PT/OT/PLANNER - Omar Whitman PTA - 04/09/2023 8:35 AM EST Physical Therapy (P) CANCEL - Deferred (per RN d/t fatigue, RN noted they will reach out if pt wakes up. Will continue per POC as able.) Associated attestation - Sun Lamb PT - 04/09/2023 11:58 AM EST I have reviewed and agree with this note and education documentation for this visit. * PT/OT/PLANNER - MARISOL Douglas - 04/09/2023 8:34 AM EST Occupational Therapy CANCEL - Deferred (per RN; RN will contact ticket writer if pt wakes up and is [...] and monitor nutritional status daily and consult professional fighter if indicated 10. Implement neutropenic guidelines as [...] supplement as ordered 13. Collaborate with clinical professional fighter 14. Include patient/ patient's data entry representative [...] Progressing Note: Evaluation of progress towards goal: elnz continues for strict I&O's. Angelica care providedq shift and PRN. Output is adequate. Problem: Moderate - High Risk Fall Score Description: [place] Fall Score of =/> 25 or indicated by [facility] Assessment Goal: Patient should be free from fall Description: Interventions: 1. [place] to environment 2. Hourly rounds addressing the [...] 25. Consider appropriateness of medical or non-medical records auditor 26. Set up voiding schedule as appropriate [...] injury from restraints (Restraint for Interference with Brick Kiln Burner) Description: INTERVENTIONS: 1. Determine that other, less [...] Free from restraint(s) (Restraint for Interference with Brick Kiln Burner) Description: INTERVENTIONS: 1. ONCE/SHIFT or MINIMUM Q12H: [...] * Plan of Care - Tana Arvizu, [facility] - 04/08/2023 9:06 PM EST Problem: Inadequate [...] and monitor nutritional status daily and consult professional fighter if indicated 10. Implement neutropenic guidelines as [...] supplement as ordered 13. Collaborate with clinical professional fighter 14. Include patient/ patient's data entry representative [...] be free from fall Description: Interventions: 1. [place] to environment 2. Hourly rounds addressing the [...] 25. Consider appropriateness of medical or non-medical records auditor 26. Set up voiding schedule as appropriate [...] injury from restraints (Restraint for Interference with Brick Kiln Burner) Description: INTERVENTIONS: 1. Determine that other, less [...] Free from restraint(s) (Restraint for Interference with Brick Kiln Burner) Description: INTERVENTIONS: 1. ONCE/SHIFT or MINIMUM Q12H: [...] and monitor nutritional status daily and consult professional fighter if indicated 10. Implement neutropenic guidelines as [...] supplement as ordered 13. Collaborate with clinical professional fighter 14. Include patient/ patient's data entry representative [...] be free from fall Description: Interventions: 1. [place] to environment 2. Hourly rounds addressing the [...] 25. Consider appropriateness of medical or non-medical records auditor 26. Set up voiding schedule as appropriate [...] injury from restraints (Restraint for Interference with Brick Kiln Burner) Description: INTERVENTIONS: 1. Determine that other, less [...] Free from restraint(s) (Restraint for Interference with Brick Kiln Burner) Description: INTERVENTIONS: 1. ONCE/SHIFT or MINIMUM Q12H: [...] * Plan of Care - Aliza Coulter [facility] - 04/08/2023 8:28 AM EST Problem: Inadequate [...] and monitor nutritional status daily and consult professional fighter if indicated 10. Implement neutropenic guidelines as [...] supplement as ordered 13. Collaborate with clinical professional fighter 14. Include patient/ patient's data entry representative [...] Score of =/> 25 or indicated by [facility] Assessment Goal: Patient should be free from fall Description: Interventions: 1. [place] to environment 2. Hourly rounds addressing the [...] 25. Consider appropriateness of medical or non-medical records auditor 26. Set up voiding schedule as appropriate [...] injury from restraints (Restraint for Interference with Brick Kiln Burner) Description: INTERVENTIONS: 1. Determine that other, less [...] Free from restraint(s) (Restraint for Interference with Brick Kiln Burner) Description: INTERVENTIONS: 1. ONCE/SHIFT or MINIMUM Q12H: [...] 5Lnasal cannula. * Plan of Care - Alizarey Coulter, [facility] - 04/07/2023 8:37 AM EST Problem: Inadequate [...] and monitor nutritional status daily and consult professional fighter if indicated 10. Implement neutropenic guidelines as [...] supplement as ordered 13. Collaborate with clinical professional fighter 14. Include patient/ patient's data entry representative [...] Score of =/> 25 or indicated by [facility] Assessment Goal: Patient should be free from fall Description: Interventions: 1. [place] to environment 2. Hourly rounds addressing the [...] 25. Consider appropriateness of medical or non-medical records auditor 26. Set up voiding schedule as appropriate [...] injury from restraints (Restraint for Interference with Brick Kiln Burner) Description: INTERVENTIONS: 1. Determine that other, less [...] Free from restraint(s) (Restraint for Interference with Brick Kiln Burner) Description: INTERVENTIONS: 1. ONCE/SHIFT or MINIMUM Q12H: [...] Free from restraint(s) (Restraint for Interference with Brick Kiln Burner) Description: INTERVENTIONS: 1. ONCE/SHIFT or MINIMUM Q12H: [...] and monitor nutritional status daily and consult professional fighter if indicated 10. Implement neutropenic guidelines as [...] supplement as ordered 13. Collaborate with clinical professional fighter 14. Include patient/ patient's data entry representative [...] be free from fall Description: Interventions: 1. [place] to environment 2. Hourly rounds addressing the [...] 25. Consider appropriateness of medical or non-medical records auditor 26. Set up voiding schedule as appropriate [...] 6. Collaborate with pastoral/spiritual care, social media project manager, mental health counselor as needed. 7. Instruct [...] injury from restraints (Restraint for Interference with Brick Kiln Burner) Description: INTERVENTIONS: 1. Determine that other, less [...] EST DISCHARGE PLANNING NOTE Referral sent to [facility] (P#: ; F#: ). * Discharge Planning Note - Shari Stevens RN - 04/05/2023 8:48 AM EST DISCHARGE PLANNING NOTE Met with patient grand daughter Roula who is her POA for healthcare discuss discharge needs, introduced self and educated on care navigation role and discharge process/ and planning. Patient admitted on 04/01 with thalamic hemorrhage [facility] risk for read[facility] is at 13.9 Patient has a history of tobacco use, no ETOH use or illicit drug usage and denies current use of tobacco in any form. Past Medical History: Diagnosis Date AAA (abdominal aortic aneurysm) ([facility]) was surgically taken care of 09/2018 GERD [...] food, utilities, or transportation. PCP is Nithya Malloy linked her for a summary of care. Educated on need to follow up with PCP days from discharge. Verified pharmacy of choice. Patient goal is to safely transition to a facility for rehab. Patient has no home care, DME or community resource currently in place. Therapy has recommended- a residential facility To reduce risk of readmission the follow discharge plan has been arranged to reduce risk. Discussedneed for rehab following hospital stay and POA agrees with skilled level. List provided and referrals sent to [facility] and [facility]. She called back [facility] as first choice. Discussed if swallow does not improve may need tube in nose removed for comfort and placed in stomach until swallow able to improve more. Care navigation team to follow up and continue to assist with discharge needs. The following tasks/referrals sent: Discharge plan- SNF awaiting acceptance at [facility] or [facility] her [place] is POA of healthcare and will make decision on location once she here who all can accept. she is open to peg tube if unable to pass for a diet still has NG in place asked facilities if can accept with it. she will need no precert but acceptance/ HENS/ and BLS ride to facility upon discharge. [facility] has accepted her for admission and granddaughter [...] Patient Active Problem List Diagnosis 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[facility]) Last Chest XRAY: Reviewed Pulmonary History: RT [...] to contact me. Herlinda NEVILLE, RN Clinical Library Services [facility] Clinical [employer] Email: [email or web address] The patient's Clinical Indicators include: See Query. CDI RESPONSE TEXT: CC: Acute toxic/metabolic encephalopathy Query created by: Leonila Leonard on 04/04/2023 11:59 AM Electronically signed by: Poly Shahid MD 04/04/2023 12:15 PM * PT/OT/PLANNER - BARRINGTON Meneses - 04/04/2023 11:31 AM EST Speech Therapy CANCEL - Deferred Per RN pt not appropriate for PO today. Will check back as able. * PT/OT/PLANNER - Sun Lamb PT - 04/04/2023 11:16 AM EST Physical Therapy Evaluation Discharge Recommendations PT Recommendations: Nursing Home Facility SNF/ECF Comments: due to decline in [...] Score: 6 CMS G Code Modifier: CN SwePASS score = 4/36 Pt is an 78 yo female admit from OSH with R sided weakness. CT brain - small L thalamic intracranial hemorrhage. Repeat CT brain - enlarging L BG IPH with worsening extension into intraventricular area, new 2-3mmrightward midline shift 04/02 - pt agitated, somnolent. NIHSS = 16 EEG - mild encephalopathy Past Medical History: Diagnosis Date AAA (abdominal aortic aneurysm) ([facility]) was surgically taken care of 09/2018 GERD [...] 05/26/2019 Performed by Caro Pollard DO at [facility] Right Pins Modified Odum Level of Disability: Severe disability 0= No [...] Equipment: repositioning sling, NG tube feed, O2, lenz catheter, L hand mitt Telemetry/Vanstone Machine Operator: Yes Oxygen Used: 2L O2 Other: high [...] no resolved problems. Principal Problem: 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[facility]) * PT/OT/PLANNER - Antolin Rodriguez OTR/L - 04/04/2023 11:15 AM EST Occupational Therapy Evaluation Discharge Recommendations OT Recommendations : Nursing Home Facility SNF/ECF Comments: Due to deficits with [...] 05/26/2019 Performed by Caro Pollard DO at [facility] Past Medical History: Diagnosis Date AAA (abdominal aortic aneurysm) ([facility]) was surgically taken care of [...] Total Scoring Daily Activity Raw Score: 6 [facility] G Code Modifier: CN Modified Odum Level of Disability: Severe disability 0= No [...] bed alarm, L sarah for hand, NG Telemetry/Vanstone Machine Operator: Yes Oxygen Used: 2L Other: fall risk, [...] no resolved problems. Principal Problem: 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[facility]) * Plan of Care - Nayely Kaur [...] and monitor nutritional status daily and consult professional fighter if indicated 10. Implement neutropenic guidelines as [...] supplement as ordered 13. Collaborate with clinical professional fighter 14. Include patient/ patient's data entry representative [...] Outcome: Progressing Note: Evaluation of progress towards goal:Lenz catheter in place Problem: Moderate - High Risk Fall Score Description: Cordova Fall Score of =/> 25 or indicated by [facility] Assessment Goal: Patient should be free from fall Description: Interventions: 1. [place] to environment 2. Hourly rounds addressing the [...] 25. Consider appropriateness of medical or non-medical records auditor 26. Set up voiding schedule as appropriate [...] 6. Collaborate with pastoral/spiritual care, social media project manager, mental health counselor as needed. 7. Instruct [...] injury from restraints (Restraint for Interference with Brick Kiln Burner) Description: INTERVENTIONS: 1. Determine that other, less [...] Free from restraint(s) (Restraint for Interference with Brick Kiln Burner) Description: INTERVENTIONS: 1. ONCE/SHIFT or MINIMUM Q12H: [...] and monitor nutritional status daily and consult professional fighter if indicated 10. Implement neutropenic guidelines as [...] supplement as ordered 13. Collaborate with clinical professional fighter 14. Include patient/ patient's data entry representative [...] Progressing Note: Evaluation of progress towards goal: Lenz catheter in place. Stool incontinence assessed forduring rounds. Perineal skin integrity maintained at this time. Problem: Moderate - High Risk Fall Score Description: Cordova Fall Score of =/> 25 or indicated by [facility] Assessment Goal: Patient should be free from fall Description: Interventions: 1. [place] to environment 2. Hourly rounds addressing the [...] 25. Consider appropriateness of medical or non-medical records auditor 26. Set up voiding schedule as appropriate [...] 6. Collaborate with pastoral/spiritual care, social media project manager, mental health counselor as needed. 7. Instruct [...] injury from restraints (Restraint for Interference with Brick Kiln Burner) Description: INTERVENTIONS: 1. Determine that other, less [...] Free from restraint(s) (Restraint for Interference with Brick Kiln Burner) Description: INTERVENTIONS: 1. ONCE/SHIFT or MINIMUM Q12H: [...] and monitor nutritional status daily and consult professional fighter if indicated 10. Implement neutropenic guidelines as [...] supplement as ordered 13. Collaborate with clinical professional fighter 14. Include patient/ patient's data entry representative [...] towards goal: Patient continues to have retention, lenz catheter continues. Angelica care provided q shift and PRN. Output is adequate. Problem: Moderate - High Risk Fall Score Description: Cordova Fall Score of =/> 25 or indicated by [facility] Assessment Goal: Patient should be free from fall Description: Interventions: 1. [place] to environment 2. Hourly rounds addressing the [...] 25. Consider appropriateness of medical or non-medical records auditor 26. Set up voiding schedule as appropriate [...] injury from restraints (Restraint for Interference with Brick Kiln Burner) Description: INTERVENTIONS: 1. Determine that other, less [...] and monitor nutritional status daily and consult professional fighter if indicated 10. Implement neutropenic guidelines as [...] and monitor nutritional status daily and consult professional fighter if indicated 10. Implement neutropenic guidelines as [...] supplement as ordered 13. Collaborate with clinical professional fighter 14. Include patient/ patient's data entry representative [...] be free from fall Description: Interventions: 1. [place] to environment 2. Hourly rounds addressing the [...] 25. Consider appropriateness of medical or non-medical records auditor 26. Set up voiding schedule as appropriate [...] 6. Collaborate with pastoral/spiritual care, social media project manager, mental health counselor as needed. 7. Instruct [...] Note: Evaluation of progress towards goal: * PT/OT/PLANNER - BATSHEVA PalmPLANNER - 04/02/2023 8:30 AM EST Speech Therapy CANCEL - Deferred VFSS on hold as pt is too lethargic. * PT/OT/PLANNER - Sun Lamb, PT - 04/02/2023 7:53 AM EST Physical Therapy (P) CANCEL - Deferred (hold medical status - new brain bleed) Will check back as appropriate. * PT/OT/PLANNER - ANEUDY West/Cyril - 04/02/2023 7:06 AM EST Occupational Therapy [...] and monitor nutritional status daily and consult professional fighter if indicated 10. Implement neutropenic guidelines as [...] supplement as ordered 13. Collaborate with clinical professional fighter 14. Include patient/ patient's data entry representative in decisions related to nutrition Outcome: Not Progressing Note: Evaluation of progress towards goal: Patient failed bedside swallow, Director Education defers aba, RE: expects patient to become [...] no performance of any self ADL's. * PT/OT/PLANNER - Chico FarhanaANI hdez-PLANNER - 04/01/2023 7:55 AM EST Speech Therapy [...] determine safety of swallow. Prognosis Services: Skilled PLANNER services to address above deficits Prognosis/Potential: Good [...] complete SLUMS and PHQ2. Prognosis Services: Skilled PLANNER services to address the above deficits Prognosis/Potential: [...] Dysphagia Problem: Swallowing Dates: Start: 04/01/23 Disciplines: PLANNER Goal: LTG: Patient will tolerate least restrictive diet recommended by PLANNER without signs and symptoms of aspiration 90% of the time Dates: Start: 04/01/23 Expected End: 05/02/23 Disciplines: PLANNER Goal: STG: Patient will complete safety strategies with minimal assistance during PO intake 90% of the time Dates: Start: 04/01/23 Expected End: 05/02/23 Disciplines: PLANNER Goal: STG: Patient will tolerate therapeutic feeding trials of advanced textures with 90% accuracy with minimal cueing Dates: Start: 04/01/23 Expected End: 05/02/23 Disciplines: PLANNER Template: ST - Rehab Speech Problem: Auditory Comprehension Dates: Start: 04/01/23 Disciplines: PLANNER Goal: LTG: Patient will comprehend communication related to basic medical and social needs and utilize compensatory strategies to maintain safety in a functional living environment Dates: Start: 04/01/23 Expected End: 05/02/23 Disciplines: PLANNER Goal: STG: Patient will answer complex yes/no questions with 90% accuracy with minimal cueing Dates: Start: 04/01/23 Expected End: 05/02/23 Disciplines: PLANNER Problem: Cognitive Linguistic Dates: Start: 04/01/23 Disciplines: PLANNER Goal: LTG: Patient will display functional cognitive-linguistic skills to demonstrate appropriate communication and safety within daily activities in a functional living environment Dates: Start: 04/01/23 Expected End: 05/02/23 Disciplines: PLANNER Goal: STG: Patient will recall information discussed during therapy session via retelling/answeringquestions with 90% accuracy with minimal cueing Dates: Start: 04/01/23 Expected End: 05/02/23 Disciplines: PLANNER Problem: High Level Language Dates: Start: 04/01/23 Disciplines: PLANNER Goal: LTG: Patient will demonstrate use of self-awareness, goal setting, planning, initiation, self-monitoring and problem solving during daily activities to improve safety and awareness in a functional living environment Dates: Start: 04/01/23 Expected End: 05/02/23 Disciplines: PLANNER Goal: STG: Patient will demonstrate functional problem solving and safety awareness with 90% accuracy in daily living tasks in order to increase safe interactions with environment and decrease assistance from caregivers Dates: Start: 04/01/23 Expected End: 05/02/23 Disciplines: PLANNER Goal: STG: Patient will complete simple to complex organization, scheduling, planning and reasoningtasks to improve problem solving and safety awareness with 90% accuracy with minimal cueing Dates: Start: 04/01/23 Expected End: 05/02/23 Disciplines: PLANNER Problem: Speech Production Dates: Start: 04/01/23 Disciplines: PLANNER Goal: LTG: Patient will develop functional and intelligible speech and utilize compensatory strategies through the use of adequate labial and lingual function, increased articulatory precision and speech prosody Dates: Start: 04/01/23 Expected End: 05/02/23 Disciplines: PLANNER Goal: STG: Patient will complete rapid alternating verbal sequences (tongue twisters) with improvedarticulatory precision with 90% accuracy with minimal cueing Dates: Start: 04/01/23 Expected End: 05/02/23 Disciplines: PLANNER Problem: Verbal Expression Dates: Start: 04/01/23 Disciplines: PLANNER Goal: LTG: Patient will utilize compensatory strategies to communicate wants and needs effectively to different conversational partners, maintain safety and participate socially in a functional living environment Dates: Start: 04/01/23 Expected End: 05/02/23 Disciplines: PLANNER Goal: STG: Patient will complete simple to complex divergent and convergent naming tasks with 90% accuracy with minimal cueing to improve thought organization Dates: Start: 04/01/23 Expected End: 05/02/23 Disciplines: PLANNER Speech Therapy Care Plan (Resolved) There are no resolved problems. Principal Problem: 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[facility]) [facility] course Narrative* Artemio Ray MD - 04/16/2023 5:12 PM EST Images from the original note were not included. 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 Discharge Disposition Home Code Status at Discharge: Full Active Issues Requiring Follow-up Issue: Stroke Responsible Individual: Neurologist What is Needed: Appointment Follow-up Appointments Arranged: Message sent to clinical coordinator Outpatient Follow-Up Future Appointments Date Time Provider Department Center 05/23/2023 1:30 PM Marita Wu MD [facility] Referrals and Follow-ups to Schedule [...] Presenting Problem/History of Present Illness 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CMS-HCC) [I61.0] Bradycardia [R00.1] Ellen Chan is a [...] 89 and was transferred to [facility] neuro ICU for further management. On arrival, [...] prompting the patient to be transferred to [place] for furthercare. Patient admitted to the neuro [...] to 12.5. Patient off Cardene. Therapy recommending residential facility. 04/05: Neurosurgery signed off. Transfer to step-down. Lisinopril started. Increase free water flushes 250 [...] consult as well for positive KAY and SHEEP CLIPPER. Rheumatology signed off. Therapy recommendingskied nursing facility. 04/13: Discontinued and nutrition consult to adjust tube feeds and free water flushes to better control sodium. 04/14: Placement pending 04/15: Lisinopril increased to better control blood pressure 04/16: Patient seen and examined at bedside. Exam relatively unchanged. Plan for transport to [facility] facility today. Operative Procedures Performed Procedure(s): ESOPHAGOGASTRODUODENOSCOPY [...] Your Medications These medications were sent to [facility]/pharmacy #[id number] [place], [place] - [address] [place] [address] AT [address] OF [address] [address] amLODIPine 10 mg tablet carvediloL 25 mg tablet lisinopriL 40 mg tablet Artemio Ray MD Neurology PGY-3 [facility] 5:12 PM 04/16/23 Associated attestation - Willard Krueger MD - 04/16/2023 10:00 PM EST I saw the patient. I participated and was physically present during the felix portions of the service. I was directly involved in the management and treatment plan of the patient. I have reviewed the resident s discharge note. documented in this [facility]Ch[facility] Hospital Discharge instructions* Discharge Instructions* Artemio Ray [...] Appointments with neurology will be scheduled at [facility], [address] [place] [id number], . Patient Education: Patient was counseled in [...] Care Everywhere. * Use of Medical Restraints (Australian) documented in this encounterBluffton HospitalFibrocell Science [facility] [id number] History of Present illness Narrative* CLAIR Rosario - 04/16/2023 2:44 PM EST NUTRITION ADULT FOLLOW UP NUTRITION ASSESSMENT: Patient History: Brief Clinical Summary: Patient initially presented to OSH with right sided weakness. Found to havesmall left thalamic ICH and transferred to [facility] for further care.PMHx includes HTN, GERD, AAA. Pt remains NPO, not ready for oral diet per PLANNER. PEG placed. Noted DC planned for possibly [...] 20 04/01/2023 Lab Results Component Value Date [id number] 04/09/2023 Lab Results Component Value Date [...] 04/14/23 0758 Comparative Standards: Estimated Energy Needs: 8461-0096 kcals daily. Method and weight used: 25-30 kcal/kg IBW (54.5kg) Estimated Protein Needs: 65-110 grams daily. Method and weight used: 1.2-2g protein/kg IBW Estimated Fluid Needs: 6333-8148 ml daily. Method weight used: 1ml/kcal Comments: [...] Balbina Neil R.D,L.D. Clinical dietitian Patient Touch extension:[phone] Direct Dial phone number: [phone] 04/16/23 2:47 PM * Artemio Ray MD [...] 140 and was transferred to [facility] neuro ICU for further management. On arrival, [...] function: 0=Normal Total: 15 Pre morbid Modified Odum score: 0 Lab Review Lab Results Component [...] Dr. Burgess Artemio Ray MD Neurology PGY-3 [facility] 10:27 AM 04/15/23 This patient is being followed by the Neurology Resident service. Contact attending directly during these hours: Saturday to 7:30-8:30 A.M. to Saturday 12-1:00 p.m. Primary Neurology service: [phone] Consult neurology service: [phone] Resident Stroke Service: [phone] If the patient belongs to the Stroke [...] 140 and was transferred to [facility] neuro ICU for further management. On arrival, [...] function: 0=Normal Total: 15 Pre morbid Modified Odum score: 0 Lab Review Lab Results Component [...] Dr. Burgess Artemio Ray MD Neurology PGY-3 [facility] 2:38 PM 04/14/23 This patient is being followed by the Neurology Resident service. Contact attending directly during these hours: Saturday to 7:30-8:30 A.M. to Saturday 12-1:00 p.m. Primary Neurology service: [phone] Consult neurology service: [phone] Resident Stroke Service: [phone] If the patient belongs to the Stroke [...] Thank you, Amita Alonso RN Rapid Response: [facility] * Artemio Ray MD - 04/13/2023 1:31 [...] 140 and was transferred to [facility] neuro ICU for further management. On arrival, [...] Dr. Burgess Artemio Ray MD Neurology PGY-3 [facility] 1:32 PM 04/13/23 This patient is being followed by the Neurology Resident service. Contact attending directly during these hours: Saturday to 7:30-8:30 A.M. to Saturday 12-1:00 p.m. Primary Neurology service: [phone] Consult neurology service: [phone] Resident Stroke Service: [phone] If the patient belongs to the Stroke [...] Lyons PharmD - 04/13/2023 12:59 PM EST [facility] Department of Pharmacy Pharmacist to Physician Communication The dose of fondaparinux has been changed to 2.5 mg every 24 hours per the [facility] approved renal dosing guidelines, based on [...] Thank you, Dulce Dickinson RN Rapid Response: [facility] * Artemio Ray MD - 04/12/2023 5:05 [...] 140 and was transferred to [facility] neuro ICU for further management. On arrival, [...] function: 0=Normal Total: 15 Pre morbid Modified Odum score: 0 Lab Review Lab Results Component [...] Dulce Price DO on 04/12/2023 3:41 AM IArianne MD have personally reviewed the image(s) and agree with and/or edited the report Finalized by Arainne Rodrigues MD on 04/12/2023 3:[address] angiogram carotid Result Date: 04/12/2023 CLINICAL INFORMATION: Stroke, follow up TECHNIQUE: CT angiogram performed following intravenous administration of nonionic intravenous contrast. Coronal and sagittal and 3-D volume rendered maximum intensity projection images generated and reviewed under concurrent physician supervision. Automated e xposure control utilized. The [place] Symptomatic Carotid Endarterectomy Trial (NASCET) method for [...] Patient was discussed with Dr. Burgess Oksana Wong MD PGY-2 Neurology Resident [facility] 5:05 PM 04/12/23 This patient is being followed by the Neurology Resident service. Contact attending directly during these hours: Saturday to 7:30-8:30 A.M. to Saturday 12-1:00 p.m. Primary Neurology service: [phone] Consult neurology service: [phone] Resident Stroke Service: [phone] If the patient belongs to the Stroke [...] PhD Vascular Neurology Neurointerventional Surgery * Mai Laughlin RN - 04/12/2023 11:30 AM EST Images [...] clinical presentation or stability. Thank you, MAI LAUGHLIN RN Rapid Response: [facility] * Agatha Eden MD - 04/12/2023 10:03 [...] Patient Active Problem List Diagnosis 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[facility]) Recommendations/Plan: Continue PT, OT and speech therapy Total assistance with bed mobility/Maxi sophia Consider residential facility versus LTAC Plan for PEG Continue Norvas for hypertension Will follow up with you [...] free water ordered per . Balbina Neil R.D,LCaraDCara Clinical dietitian Patient Touch extension:[phone] Direct Dial phone number: [phone] 04/12/23 9:15 AM * Vinny Tello MD - 04/12/2023 7:30 AM EST Images from the original note were not included. 04/12/2023 7:30 AM Name: Ellen Chan Age: 78 y.o. female Acct: [id number] Room: [address] Day: 11 Admit Date: 04/01/2023 4:08 AM PCP: NITHYA MALLOY MD Subjective: POD 1 s/p PEG placement. [...] feels like my eyes are spinning around Mmasxvvu-Osinsiqmolr-Dogheebwk Oxycodone Headache I just don't want to [...] Patient Active Problem List Diagnosis 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[facility]) Plan: Advance tube feeds to goal as [...] Resident, PGY-1 Acute Care Surgery/ACS 6a-6p pager #[phone] 6p-6a pager #[phone] Associated attestation - Kacie Cabrales MD - 04/12/2023 3:17 PM EST ATTENDING NOTE I reviewed the resident s note and discussed the case with the resident. This specific service willnot be billed Electronically signed by Kacie Cabrales MD [facility] Robotic Surgery Trauma, Acute Care Surgery and Surgical Critical Care * Vinny Tello MD - 04/11/2023 11:46 AM EST 04/11/2023 11:46 AM Name: Ellen Chan Age: 78 y.o. female Acct: [id number] Room: [address] Day: 10 Admit Date: 04/01/2023 4:08 AM PCP: NITHYA MALLOY MD Subjective: Ellen Chan is a 78 [...] feels like my eyes are spinning around Mcygckzi-Eawrepgpoox-Qwlvvhhvu Oxycodone Headache I just don't want to [...] Active Problem List Diagnosis 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CMS-HCC) Plan: Plan for PEG placement today at 1300. Consent obtained from granddaughter/POA. Diet: NPO, hold tube feeds DVT prophylaxis: SCDs, hold Arixtra Vinny Tello MD General Surgery Resident, PGY-1 Acute Care Surgery/ACS 6a-6p pager #[phone] 6p-6a pager #[phone] Associated attestation - Dae Bo MD - [...] NPO, not ready for oral diet per PLANNER. Biochemical Data, Medical Tests, and Procedures: 04/01 [...] 115* -- 115* -- 113* CO2 mmol/L 23 24 -- 28 -- 26 BUN mg/dL -- [...] from last 3 days Lab Units 04/11/23 00304/10/23 00404/09/23 1715 04/09/23 0812 MAGNESIUM mg/dL 2.1 [...] 20 04/01/2023 Lab Results Component Value Date [id number] 04/09/2023 Lab Results Component Value Date [...] Mendozaor, DO 10 mg at 04/04/23 0604 ipratropium-albuteroL [...] 6 mg nasogastric Nightly PRN Haseeb Mcnamara APRN-RETAIL SALES REPRESENTATIVE 6 mg at 04/11/23 0049 omeprazole-sodium bicarbonate (KONVOMEP) 2-84 mg/mL oral suspension 40 mg 40 mg nasogastric Daily Christina Mendozaor, DO 40 mg at 04/11/23 0824 ondansetron (PF) (ZOFRAN) injection 4 mg 4 mg intravenous Q6H PRN Christina Mendozaor, DO 4 mg at1 2137 piperacillin-tazobactam (ZOSYN) 3.375 g in sodium chloride 0.9 % 50 mL IVPB-MBP 3.375 g [id number] TAE ChowdhuryRETAIL SALES REPRESENTATIVE 12.5 mL/hr at 04/11/23 1049 3.375 g [...] (04/11/23 08) RUQ Bowel Sounds: Active (04/11/23 0800) LUQ [...] oz) Admit Weight: 67.1kg (04/01; bed scale) Power Body Weight: 54.5kg Weight Changes: - Admit Body Mass Index: 25.02 Current Body Mass Index: Body mass index is 25.01 kg/m . Comparative Standards: Estimated Energy Needs: 0803-9443 kcals daily. Method and weight used: 25-30 kcal/kg IBW (54.5kg) Estimated Protein Needs: 65-110 grams daily. Method and weight used: 1.2-2g protein/kg IBW Estimated Fluid Needs: 5945-1490 ml daily. Method weight used: 1ml/kcal Comments: [...] Balbina Neil R.D,L.D. Clinical dietitian Patient Touch extension:[phone] Direct Dial phone number: [phone] 04/11/23 10:59 AM * Michele Estrada MD - 04/11/2023 10:09 AM EST Images from the original note were not included. [facility] Jack Meraz M.D. Austin Spain M.D. Arianne Cha M.D. Neetu Snider M.D. Angeles Conner, [facility] Chen Ahn, [facility] Miriam Cm, [facility] Sushma Long, [facility] AZIZA Herring M.D. Feng Jiang, M.D. Jeffrey Muler, M.D. Donaldo Weems M.D. Isabel Garrett, [facility] Piedad Armando, SUPER[employer]-RETAIL SALES REPRESENTATIVE Josh Gale, SUPERVISOR M[employer] LENS-RETAIL SALES REPRESENTATIVE Nayely Ruelas, SUPERVISOR M[employer] LENS-RETAIL SALES REPRESENTATIVE Rachna Wm, [employer]PER[employer]-[facility] PROGRESS NOTE Subjective: [...] will need to follow up with a Field Support Rep, and could follow up with our group in [place], or with a [facility] alarm mechanic in [place]. Family to discuss. Noquestions at this time. HPI: Ellen Chan is a 78 y.o. female with a PMHx of AAA, GERD, HTN. She [facility] from an OSHwith right-sided weakness. She was [...] IgG 786 635 - 1,741 mg/dL Free Trail Side Lt Chains 6.32 (H) 0.33 - 1.94 mg/dL Free Lambda Lt Chains 3.70 (H) 0.57 - 2.63 mg/dL Free zoila/lambda ratio 1.71 (H) 0.26 - 1.65 Immune profile inter PENDING Anti-Chromatin IGG Collection Time: 04/10/23 1:11 PM Result Value Ref Range Anti-chromatin IgG <0.2 <1.0 AI Anti-DNA antibody, double-stranded Collection Time: 04/10/23 1:11 PM Result Value Ref Range Ds DNA <1 <5 IU/ML SHEEP CLIPPER AB IgG Collection Time: 04/10/23 1:11 PM Result Value Ref Range Anti SHEEP CLIPPER 1.0 (H) <1.0 AI Anti-Ruelas AB IGG Collection Time: 04/10/23 1:11 PM Result Value Ref Range Anti-ruelas AB IgG <0.2 <1.0 AI Ruelas/SHEEP CLIPPER AB IgG Collection Time: 04/10/23 1:11 PM Result Value Ref Range Anti-Sm/SHEEP CLIPPER <0.2 <1.0 AI Electrolyte panel Collection Time: [...] mg, 650 mg, nasogastric, Q6H PRN, Christina Mendozaor, DO, 650 mg at 04/11/23 0519 amLODIPine (NORVASC) tablet 10 mg, 10 mg, nasogastric, Daily, Christina Leah Swor, DO, 10 mg at 04/11/23 0823 bisacodyL (DULCOLAX) suppository 10 mg, 10 mg, rectal, Q3 Days, Christina Mendozaor, DO, 10 mg at04/08/23 1312 calcium gluconate [...] mg, 10 mg, intravenous, Q4H PRN, Christina Freitas, DO, 10 mg at 04/04/23 0604 ipratropium-albuteroL (DUONEB) 0.5 mg-3 mg(2.5 mg base)/3 mL nebulizer solution 3 mL, 3 mL, nebulization, Q4H PRN, Mohan De Anda MD, 3 mL at 04/09/23 0521 labetaloL (NORMODYNE,TRANDATE) injection 10 mg, 10 mg, intravenous, Q5 Min PRN, Christina Freitas, DO, 10 mg at 04/09/23 0634 lisinopriL (PRINIVIL,ZESTRIL) tablet 20 mg, 20 mg, nasogastric, Daily, Christina Mendozaor, DO, 20 mg at 04/11/23 0823 magnesium [...] 6 mg, nasogastric, Nightly PRN, Haseeb Mcnamara APRN-RETAIL SALES REPRESENTATIVE, 6 mg at 04/11/23 0049 omeprazole-sodium bicarbonate (KONVOMEP) 2-84 mg/mL oral suspension 40 mg, 40 mg, nasogastric, Daily, Christina Freitas, DO, 40 mg at 04/11/23 0824 ondansetron (PF) (ZOFRAN) injection 4 mg, 4 mg, intravenous, Q6H PRN, Christina Freitas, DO, 4 mg at 04/06/23 2137 [COMPLETED] piperacillin-tazobactam (ZOSYN) 4.5 g in sodium chloride 0.9 % 50 mL IVPB-MBP, 4.5 g, intravenous, Once, Stopped at 04/06/23 1509 FOLLOWED BY piperacillin-tazobactam (ZOSYN) 3.375 g in sodium chloride 0.9 % 50 mL IVPB-MBP, 3.375 g, intravenous, Q8H, Mai oH, SUPERVISOR MULT[employer]ENS-RETAIL SALES REPRESENTATIVE, Stopped at 04/11/23 0554 potassium chloride (K-TAB,KLOR-CON) [...] spray, 1 spray, oral, PRN, Mai Ho, SUPERVISOR MULT[employer] LENS-RETAIL SALES REPRESENTATIVE, 1 spray at 04/09/23 1022 sennosides-docusate sodium [...] Patient Active Problem List Diagnosis 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[facility]) Assessment/Plan Impression: #. Thrombocytopenia - Platelet 97,000 - 91,000 on admission. - 138,000 in 2020. #. Acute left ophthalmic ICH with IVH #. AAA s/p repair Plan: Differentials include consumption from ICH, microangiopathy due to AAA, or more likely chronic thrombocytopenia. No evidence of hemolysis, DIC, nutritional deficiency, splenic sequestration KAY positive with along with anti SHEEP CLIPPER antibody elevation. Rheumatology consulted for this finding. SPEP, IFX still pending. Patient will follow up with Dr. Marie in [place]. I will facilitate having this scheduled. If the patient/family decide to follow up with [facility], they are welcome to cancel this appointment. Hematology will sign off at this time. Please contact us with any questions. Transfusion Parameters: Hgb < 7 and Plts < 10,000, unless active bleeding transfuse Plts <20,000 Code Status: Modified Code Status [place] Further medical management of comorbid conditions per primary team and consulting services, appreciate assistance The patient was seen and examined and all plans and orders were agreed upon with the physician on service today, Dr. Estrada. Chen Ahn, TANYA-RETAIL SALES REPRESENTATIVE [facility] [address] [place] [address] Epic Chat is my preferred mode of contact. For after hours (evening, weekends, holidays) Hematology Oncology needs, please call the spa concierge service [phone]. Please ask for the MD spa concierge. April 11, 2023, 10:39 AM ATTENDING PHYSICIAN [...] hematology if further questions. MD Chen Moore, TANYA-RETAIL SALES REPRESENTATIVE 04/11/23 1350 * Oksana Wong MD - 04/11/2023 7:39 AM EST NEUROINTERVENTIONAL [...] 140 and was transferred to [facility] neuro ICU for further management. On arrival, [...] function: 0=Normal Total: 15 Pre morbid Modified Odum score: 0 Lab Review Lab Results Component [...] infiltrates. No acute change. Finalized by Rajan Pinto MD on 04/11/2023 6:52 AM Ultrasound abdomen [...] Hypernatremia Thrombocytopenia, oncology following Dysphagia s/p PEG 1/4/24 Stroke risk factors Hypertension Abdominal aortic aneurysm. [...] Patient was discussed with Dr. Burgess Oksana Wong MD PGY-2 Neurology Resident [facility] 7:39 AM 04/11/23 This patient is being followed by the Neurology Resident service. Contact attending directly during these hours: Saturday to 7:30-8:30 A.M. to Saturday 12-1:00 p.m. Primary Neurology service: [phone] Consult neurology service: [phone] Resident Stroke Service: [phone] If the patient belongs to the Stroke [...] 8.9 Na 151 (free water flushes) - [facility] monitoring Abdominal us for thrombocytopenia workup Chronic [...] feels like my eyes are spinning around Afgvghpr-Lganvjxrckn-Xpwixiqbp Oxycodone Headache I just don't want to [...] 05/26/2019 Performed by Caro Pollard DO at [facility] ORIF WRIST FRACTURE Right Pins Vital Signs [...] Clear 04/11/23399 Output (mL) 40 mL 04/11/23 0600 I/O last 3 completed shifts: In: 1979 [...] : Urine is yellow and clear per lenz cath Extremities: No peripheral edema noted Recent [...] IgG 786 635 - 1,741 mg/dL Free Trail Side Lt Chains 6.32 (H) 0.33 - 1.94 mg/dL Free Lambda Lt Chains 3.70 (H) 0.57 - 2.63 mg/dL Free zoila/lambda ratio 1.71 (H) 0.26 - 1.65 Immune profile inter PENDING Anti-Chromatin IGG Collection Time: 04/10/23 1:11 PM Result Value Ref Range Anti-chromatin IgG <0.2 <1.0 AI Anti-DNA antibody, double-stranded Collection Time: 04/10/23 1:11 PM Result Value Ref Range Ds DNA <1 <5 IU/ML SHEEP CLIPPER AB IgG Collection Time: 04/10/23 1:11 PM Result Value Ref Range Anti SHEEP CLIPPER 1.0 (H) <1.0 AI Anti-Ruelas AB IGG Collection Time: 04/10/23 1:11 PM Result Value Ref Range Anti-ruelas AB IgG <0.2 <1.0 AI Ruelas/SHEEP CLIPPER AB IgG Collection Time: 04/10/23 1:11 PM Result Value Ref Range Anti-Sm/SHEEP CLIPPER <0.2 <1.0 AI Electrolyte panel Collection Time: [...] 6 mg, 6 mg, nasogastric, Nightly PRN, TAE NguyenRETAIL SALES REPRESENTATIVE, 6 mg at 04/11/23 0049 omeprazole-sodium bicarbonate (KONVOMEP) 2-84 mg/mL oral suspension 40 mg, 40 mg, nasogastric, Daily, Christina Freitas DO, 40 mg at 04/10/23 0838 ondansetron (PF) (ZOFRAN) injection 4 mg, 4 mg, intravenous, Q6H PRN, Christina Mendozaor DO, 4 mg at 04/06/23 2137 [COMPLETED] piperacillin-tazobactam (ZOSYN) 4.5 g in sodium chloride 0.9 % 50 mL IVPB-MBP, 4.5 g, intravenous, Once, Stopped at 04/06/23 1509 FOLLOWED BY piperacillin-tazobactam (ZOSYN) 3.375 g in sodium chloride 0.9 % 50 mL IVPB-MBP, 3.375 g, intravenous, Q8H, Mai Ho APRN-RETAIL SALES REPRESENTATIVE, Stopped at 04/11/23 0554 potassium chloride (K-TAB,KLOR-CON) [...] 1 spray, 1 spray, oral, PRN, Mai Ho APRN-RETAIL SALES REPRESENTATIVE, 1 spray at 04/09/23 1022 sennosides-docusate sodium (SENOKOT-S) 8.6-50 mg 2 tablet, 2 tablet, nasogastric, BID, Christina FreitasDO, 2 tablet at 04/10/23 0838 sodium phosphate [...] Beach RPH - 04/11/2023 5:56 AM EST [facility] Department of Pharmacy Pharmacist to Physician Communication The dose of fondaparinux has been changed to 1.5 mg every 24 hours per the [facility] approved renal dosing guidelines, based on [...] 140 and was transferred to [facility] neuro ICU for further management. On arrival, [...] function: 0=Normal Total: 16 Pre morbid Modified Odum score: 0 Lab Review Lab Results Component [...] Dr. Burgess Artemio Ray MD Neurology PGY-3 [facility] 9:52 AM 04/10/23 This patient is being followed by the Neurology Resident service. Contact attending directly during these hours: Saturday to 7:30-8:30 A.M. to Saturday 12-1:00 p.m. Primary Neurology service: [phone] Consult neurology service: [phone] Resident Stroke Service: [phone] If the patient belongs to the Stroke [...] 8.9 Na up (free water flushes) - [facility] monitoring Abdominal us for thrombocytopenia workup Impression: [...] scale per protocol Plan discussed with attending emergency medical service coordinator , patient/family and bedside RN. Haseeb Mcnamara APRN-RETAIL SALES REPRESENTATIVE Acute Care Nurse Practitioner [facility] Critical [facility] Contact via patient touch Subjective: This [...] from last 3 days Lab Units 04/09/23 2036 INR 1.1 PROTIME sec 13.3* Results from last 3 days Lab Units 04/10/23 00404/09/23 0158 04/08/23417 WBC X10E9/L 8.9 10.5 11.8* HEMOGLOBIN g/dL 12.0 11.5* 12.0 HEMATOCRIT % 35.6 33.6* 36.4 PLATELETS X10E9/L 87* 74* 66* MCV fL 86 86 87 MCH pg 29.0 29.3 28.7 MCHC g/dL 33.6 34.1 33.0 RDW % 15.0 15.4* 15.9* EOS ABS AUTO X10E9/L 0.2 0.2 0.1 Microbiology Results Procedure Component Value Units Date/Time Resp Pathogens Panel/SARS CoV-2 [[id number]] Collected: 04/03/23 1000 Specimen: Nasopharynx Updated: 04/03/23 [...] 2 Not Detected Mrsa Pcr nasal swab [[id number]] Collected: 04/03/23 1000 Specimen: Nasal Updated: 04/03/23 [...] Value Units Date/Time Resp Pathogens Panel/SARS CoV-2 [[id number]] Collected: 04/03/23 1000 Specimen: Nasopharynx Updated: 04/03/23 [...] 2 Not Detected Mrsa Pcr nasal swab [[id number]] Collected: 04/03/23 1000 Specimen: Nasal Updated: 04/03/23 [...] (04/02/23804) Cc time 30 mins Haseeb Mcnamara APRN-RETAIL SALES REPRESENTATIVE 04/10/23 0944 * Artemio Ray MD - [...] 140 and was transferred to [facility] neuro ICU for further management. On arrival, [...] function: 0=Normal Total: 16 Pre morbid Modified Odum score: 0 Lab Review Lab Results Component [...] scanner and low likelihood that MRI would jacket changer Zosyn for pneumonia per critical care PEG [...] Dr. Burgess Artemio Ray MD Neurology PGY-3 [facility] 9:14 AM 04/09/23 This patient is being followed by the Neurology Resident service. Contact attending directly during these hours: Saturday to 7:30-8:30 A.M. to Saturday 12-1:00 p.m. Primary Neurology service: [phone] Consult neurology service: [phone] Resident Stroke Service: [phone] If the patient belongs to the Stroke [...] havesmall left thalamic ICH and transferred to [facility] for further care.PMHx includes HTN, GERD, AAA. Pt remains NPO, not ready for oral diet per PLANNER. Biochemical Data, Medical Tests, and Procedures: 04/01 CT brain: Enlarging left basal ganglia intraparenchymal hemorrhage with worsening intraventricular extension. 12/25 Soft and Bite Sized and no liquids. However, per hold off on oral diet d/t mentation. VFSSon hold. 04/04- remains NPO 04/08- D2.5 stopped due to decrease in Na levels, free water continues Labs: Results from last 3 days Lab Units 04/09/23 0812 04/09/23 01504/08/23 2203 04/08/23 1747 04/08/23 1340 04/08/238 04/07/23 033 SODIUM mmol/L 146 146 148* < > [...] Results from last 7 days Lab Units 04/09/2315704/08/2341704/07/23 1154 04/07/2333304/06/23 03404/05/23 03404/04/23 033 BEDSIDE GLUCOSE mg/dL -- -- 111* -- -- -- -- GLUCOSE mg/dL 155* 135* -- 112* 106* 169* 147* Results from last 3 days Lab Units 04/09/2315704/08/2341704/07/23 033 WBC X10E9/L 10.5 11.8* 14.8* HEMOGLOBIN g/dL [...] VERYLOWLIP 20 04/01/2023 No results found for: [id number] No results found for: FOLATE No results [...] BID Jordan Hassan MD 12.5 mg at 04/08/23 211 dextrose (GLUTOSE) 40 % gel 15 g [...] injection 5,000 Units 5,000 Units subcutaneous Q8H [facility] Jordan Hassan MD 5,000 Units at 04/08/232113 [...] mg 4 mg intravenous Q6H PRN Christina Villalobos Swor, DO 4 mg at12136 piperacillin-tazobactam (ZOSYN) 3.375 g in sodium chloride 0.9 % 50 mL IVPB-MBP 3.375 g [id number] Mai Ho APRN-SHAMEKA Stopped at 04/09/23 0600 potassium chloride (K-TAB,KLOR-CON) [...] mg oral Nightly PRN Zay Chapa MD, 12.5 mg at12131 sennosides-docusate sodium (SENOKOT-S) 8.6-50 mg 2 tablet 2 tablet nasogastric BID Christina Walterswor, DO 2 tablet at 04/08/232113 sodium phosphate [...] (04/09/23 08) RLQ Bowel Sounds: Hypoactive (04/09/23 0800) LLQ Bowel Sounds: Hypoactive (04/09/23 0800) GI Symptoms: Constipation (04/08/23 1200) Relieved [...] oz) Admit Weight: 67.1kg (04/01; bed scale) Power Body Weight: 54.5kg Weight Changes: down by 1.5kg from admit Admit Body Mass Index: 25.02 Current Body Mass Index: Body mass index is 24.82 kg/m . Comparative Standards: Estimated Energy Needs: 9303-8528 kcals daily. Method and weight used: 25-30 kcal/kg IBW (54.5kg) Estimated Protein Needs: 65-110 grams daily. Method and weight used: 1.2-2g protein/kg IBW Estimated Fluid Needs: 2891-5994 ml daily. Method weight used: 1ml/kcal Comments: [...] Balbina Neil R.D,Cristobal Clinical dietitian Patient Touch extension:[phone] Direct Dial phone number: [phone] 04/09/23 9:15 AM * KOTA Chowdhury - [...] wheezing with rhonchi on evaluation. Mai Ho [facility]NMiners' [facility] Problem: Principal Problem: 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CMS-HCC) OBJECTIVE: [...] is warm and dry. Genitourinary Genitourinary Comments: Lenz catheter in place I/O last 3 completed shifts: In: 3782.8 [I.V.:182.3; NG/GT:3431; IV Piggyback:169.5] Out: 2555 [Urine:2555] Results from last 3 days Lab Units 04/09/23 0158 04/08/23 1340 04/08/2341704/07/23 0334 04/06/23 1104 BUN mg/dL 33* -- [...] from last 3 days Lab Units 04/09/23 01504/08/23 0418 04/07/23 0334 WBC X10E9/L 10.5 11.8* 14.8* HEMOGLOBIN g/dL 11.5* 12.0 12.7 HEMATOCRIT % 33.6* 36.4 38.6 PLATELETS X10E9/L 74* 66* 58* MCV fL 86 87 87 MCH pg 29.3 28.7 28.6 MCHC g/dL 34.1 33.0 32.8 RDW % 15.4* 15.9* 15.9* EOS ABS AUTO X10E9/L 0.2 0.1 0.0 Microbiology Results Procedure Component Value Units Date/Time Resp Pathogens Panel/SARS CoV-2 [[id number]] Collected: 04/03/23 1000 Specimen: Nasopharynx Updated: 04/03/23 [...] 2 Not Detected Mrsa Pcr nasal swab [[id number]] Collected: 04/03/23 1000 Specimen: Nasal Updated: 04/03/23 [...] Value Units Date/Time Resp Pathogens Panel/SARS CoV-2 [[id number]] Collected: 04/03/23 1000 Specimen: Nasopharynx Updated: 04/03/23 [...] 2 Not Detected Mrsa Pcr nasal swab [[id number]] Collected: 04/03/23 1000 Specimen: Nasal Updated: 04/03/23 [...] intact 04/09/23399 Collection Container Standard drainage bag/container 04/09/23 040 Securement Method Securing device (Describe) 04/09/23399 Tamper Evident Seal Intact Yes 04/09/23399 Reason for Continuing Strict I&O in critically ill patient 04/09/23 040 Urine Color Yellow/straw 04/09/23 040 Urine Appearance Clear 04/09/23 040 Output (mL) 90 mL 04/09/23 0500 I/O [...] mL infusion, 125 mL/hr, Last Rate: Stopped (04/09/23 032) dextrose 5 % in water, 100 mL/hr sodium chloride 0.9 %, 10 mL/hr sodium chloride 0.9 %, 10 mL/hr sodium chloride 0.9 %, 10 mL/hr, Last Rate: Stopped (04/02/23 0805) [] This patient, with a critical illness, requires constant monitoring and titration of care by a Critical Care Director Education. Failure to do so may result in further organ system failure, imminent deterioration, or . Mai Ho, TANYA-RETAIL SALES REPRESENTATIVE 04/09/23 1031 Mai Ho, SUPERVISOR MULTIFOCAL LENS-RETAIL SALES REPRESENTATIVE 04/09/23 1049 Mai Ho, SUPERVISOR MULT[employer]OCAL LENS-[facility] 04/09/23 1050 * Artemio Ray MD [...] 140 and was transferred to [facility] neuro ICU for further management. On arrival, [...] with slight improvement on the left. Wor kstation:[id number] Finalized by Rajan Pinto MD on 04/08/2023 8:21 AM ASSESSMENT/PLAN: This [...] scanner and low likelihood that MRI would jacket changer Zosyn for pneumonia per critical care PEG [...] Patient was discussed with Dr. Montemayor. Artemio aRy MD Neurology PGY-3 [facility] 12:54 PM 04/08/23 This patient is being followed by the Neurology Resident service. Contact attending directly during these hours: Saturday to 7:30-8:30 A.M. to Saturday 12-1:00 p.m. Primary Neurology service: [phone] Consult neurology service: [phone] Resident Stroke Service: [phone] If the patient belongs to the Stroke [...] Ellen Chan Age: 78 y.o. female Acct: [id number] Room: [address] Day: 7 Admit Date: 04/01/2023 4:08 AM PCP: NITHYA MALLOY MD Subjective: Ellen Chan is a 78 [...] feels like my eyes are spinning around Zompbrbj-Zjwywnmkrez-Simkvyjzt Oxycodone Headache I just don't want to [...] Patient Active Problem List Diagnosis 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[facility]) Plan: PEG can be done at any [...] Resident, PGY-4 Acute Care Surgery/ACS 6a-6p pager #[phone] 6p-6a pager #[phone] Associated attestation - Estevan Duff DO - [...] Results from last 3 days Lab Units 04/08/238 04/07/23 0334 04/06/23 1104 04/06/23 0342 BUN mg/dL [...] Value Units Date/Time Resp Pathogens Panel/SARS CoV-2 [[id number]] Collected: 04/03/23 1000 Specimen: Nasopharynx Updated: 04/03/23 [...] 2 Not Detected Mrsa Pcr nasal swab [[id number]] Collected: 04/03/23 1000 Specimen: Nasal Updated: 04/03/23 [...] Value Units Date/Time Resp Pathogens Panel/SARS CoV-2 [[id number]] Collected: 04/03/23 1000 Specimen: Nasopharynx Updated: 04/03/23 [...] 2 Not Detected Mrsa Pcr nasal swab [[id number]] Collected: 04/03/23 1000 Specimen: Nasal Updated: 04/03/23 [...] ml 04/08/23399 Feeding? (Yes or No) Yes 04/08/23 040 Urinary Catheter 04/02/23 (Active) Catheter Status Patent 04/08/23399 Site Assessment Clean;Skin intact 04/08/23399 Collection Container Standard drainage bag/container 04/08/23399 Securement Method Securing device (Describe) 04/08/23 040 Tamper Evident Seal Intact Yes 04/08/23 040 Reason for Continuing Strict I&O in critically ill patient 04/08/23 040 Urine Color Yellow/straw 04/08/23399 Urine Appearance Clear 04/08/23 040 Output (mL) [...] titration of care by a Critical Care Director Education. Failure to do so may result in [...] 140 and was transferred to [facility] neuro ICU for further management. On arrival, [...] compared to recent radiographs. Finalized by Rajan Pinto MD on 04/07/2023 5:[address] brain [...] scanner and low likelihood that MRI would jacket changer -Rocephin for pneumonia per critical care -Will [...] Dr. Montemayor. Artemio Ray MD Neurology PGY-3 [facility] 1:59 PM 04/07/23 This patient is being followed by the Neurology Resident service. Contact attending directly during these hours: Saturday to 7:30-8:30 A.M. to Saturday 12-1:00 p.m. Primary Neurology service: [phone] Consult neurology service: [phone] Resident Stroke Service: [phone] If the patient belongs to the Stroke [...] from the original note were not included. [facility] Neurology Neurocritical Care Progress Note: Brief Summary: [...] monitor. Gen Crit Care: - Access/Indwelling catheters: Lenz day 4, NGT in place with tube [...] from the original note were not included. [facility] Neurology Neurocritical Care Progress Note: Brief Summary: [...] evaluation. Gen Crit Care: - Access/Indwelling catheters: Lenz day 3, NGT in place with tube [...] and any procedures performed. * Albert Jeronimo [facility] - 04/06/2023 1:01 PM EST [facility] Department of Pharmacy Pharmacist to Physician Communication The dose of piperacillin/tazobactam for pneumonia (facility acquired) has been changed to 4.5g IV x1 infused over 30 minutes followed by 3.375g IV every 8 hours infused over 4 hours starting 4 hoursafter the loading dose per the [facility] approved renal dosing guidelines, based on an estimated creatinine clearance is 55.4 mL/min (by C-G formula based on SCr of 0.7 mg/dL). Thank you, Albert Jeronimo RP * Artemio Ray MD - 04/06/2023 8:41 [...] 140 and was transferred to [facility] neuro ICU for further management. On arrival, [...] function: 0=Normal Total: 17 Pre morbid Modified Odum score: 0 Lab Review Lab Results Component [...] Dr. Montemayor. Artemio Ray MD Neurology PGY-3 [facility] 8:41 AM 04/06/23 This patient is being followed by the Neurology Resident service. Contact attending directly during these hours: Saturday to 7:30-8:30 A.M. to Saturday 12-1:00 p.m. Primary Neurology service: [phone] Consult neurology service: [phone] Resident Stroke Service: [phone] If the patient belongs to the Stroke [...] 140 and was transferred to [facility] neuro ICU for further management. On arrival, [...] function: 0=Normal Total: 15 Pre morbid Modified Odum score: 0 Lab Review Lab Results Component [...] Dr. Montemayor. Artemio Ray MD [facility]3 [facility] [facility]05 PM 04/05/23 This patient is being followed by the Neurology Resident service. Contact attending directly during these hours: Saturday to 7:30-8:30 A.M. to Saturday 12-1:00 p.m. Primary Neurology service: [phone] Consult neurology service: [phone] Resident Stroke Service: [phone] If the patient belongs to the Stroke [...] from the original note were not included. [facility] Neurology Neurocritical Care Progress Note: Brief Summary: [...] status. Has NGT and on TF. - PLANNER swallow evaluation: level 6, no liquids. - [...] issues. Gen Crit Care: - Lines: PIVs, Lenz Day 3. NG Day 3 - Prophylaxis: [...] havesmall left thalamic ICH and transferred to [facility] for further care.PMHx includes HTN, GERD, AAA. Pt remains NPO, not ready for oral diet per PLANNER. Biochemical Data, Medical Tests, and Procedures: 04/01 [...] mg nasogastric Q6H PRN Christina Mendozaor, DO amLODIPine (NORVASC) tablet 10 mg 10 mg nasogastric Daily Christinajames Mendozaor, DO 10 mg at 04/04/23 0838 [...] injection 5,000 Units 5,000 Units subcutaneous Q8H [facility] Jordan Hassan MD 5,000 Units at 04/04/23 0527 hydrALAZINE (APRESOLINE) injection 10 mg 10 mg intravenous Q4H PRN Christina Mendozaor, DO 10 mg at 04/04/23 0604 hydrALAZINE (APRESOLINE) tablet 25 mg 25 mg nasogastric Q8H [facility] Christina Mendozaor, DO 25 mg at 04/04/23 [...] feels like my eyes are spinning around Svmfdhnb-Glzxfivhxds-Okjcuqexy Oxycodone Headache I just don't want to [...] oz) Admit Weight: 67.1kg (04/01; bed scale) Power Body Weight: 54.5kg Percent Power Body Weight: 123 Body Mass Index: Body mass index is 25.09 kg/m . BMI Category: Pre-obese (25.00- 29.99) Comparative Standards: Estimated Energy Needs: 4023-0047 kcals daily. Method and weight used: 25-30 kcal/kg IBW (54.5kg) Estimated Protein Needs: 65-110 grams daily. Method and weight used: 1.2-2g protein/kg IBW Estimated Fluid Needs: 1307-6301 ml daily. Method weight used: 1ml/kcal Comments: [...] Balbina Neil R.D,Cristobal Clinical dietitian Patient Touch extension:[phone] Direct Dial phone number: [phone] 04/04/23 12:38 PM * Jordan Hassan MD [...] 140 and was transferred to [facility] neuro ICU for further management. On arrival, [...] 06:36 End: 11:54 This is a standard [facility] EEG monitoring report using scalp and [...] or primary neurological disorders. Darnell Buenrostro MD Ocular Care Aide Neurology/Neurophysiology [facility] Echo complete W/O contrast Result Date: [...] Montemayor. Jordan Hassan MD PGY3 neurology resident [facility] This patient is being followed by the Neurology Resident service. Contact attending directly during these hours: Saturday to 7:30-8:30 A.M. to Saturday 12-1:00 p.m. Primary Neurology service: [phone] Consult neurology service: [phone] Resident Stroke Service: [phone] If the patient belongs to the Stroke [...] from the original note were not included. [facility] Neurology Neurocritical Care Progress Note: Brief Summary: [...] status. Has NGT and on TF. - PLANNER swallow evaluation: level 6, no liquids. - [...] issues. Gen Crit Care: - Lines: PIVs, Lenz Day 2. NG Day 2. - Prophylaxis: [...] 140 and was transferred to [facility] neuro ICU for further management. On arrival, [...] function: 0=Normal Total: 14 Pre morbid Modified Odum score: 0 Lab Review Lab Results Component [...] 04/02/2023 End: 06:34 04/03/2023 This is a standardT EEG monitoring report using scalp and ear [...] or primary neurological disorders. Darnell Buenrostro MD Ocular Care Aide Neurology/Neurophysiology [facility] X-ray abdomen NG Tube placement 1 view Result Date: 04/03/2023 CLINICAL INFORMATION: NG tube. TECHNIQUE: Abdomen single view AP supine. COMPARISON: None. FINDINGSAortic stent in place. Elevated right hemidiaphragm. Enteric tube tip projects over the stomach. IMPRESSION: * Enteric tube tip projects over the stomach. Approved by Resident Dulce Price DO on 04/03/2023 5:28 AM I, Caro Gilliland MD have personally reviewed the image(s) and [...] neurological disorders. Darnell Buenrostro MD AssistantProfessor Neurology/Neurophysiology [facility] X-ray chest 1 view Result Date: [...] Montemayor. Jordan Hassan MD PGY3 neurology resident [facility] This patient is being followed by the Neurology Resident service. Contact attending directly during these hours: Saturday to 7:30-8:30 A.M. to Saturday 12-1:00 p.m. Primary Neurology service: [phone] Consult neurology service: [phone] Resident Stroke Service: [phone] If the patient belongs to the Stroke [...] from the original note were not included. [facility] Neurology Neurocritical Care Progress Note: Brief Summary: [...] and Start IVF NS at 75cc/hr - PLANNER swallow evaluation: level 6, no liquids. - [...] issues. Gen Crit Care: - Lines: PIVs, Lenz Day 1. NG Day 1. - Prophylaxis: [...] 140 and was transferred to [facility] neuro ICU for further management. On arrival, [...] neurological disorders. Darnell Buenrostro MD AssistantProfessor Neurology/Neurophysiology [facility] X-ray chest 1 view Result Date: [...] hemorrhagic changes. At 5:20 a.m. the residential specialist called the patient's nurse Shen Chacko and [...] . Jordan Hassan MD PGY3 neurology resident [facility] This patient is being followed by the Neurology Resident service. Contact attending directly during these hours: Saturday to 7:30-8:30 A.M. to Saturday 12-1:00 p.m. Primary Neurology service: [phone] Consult neurology service: [phone] Resident Stroke Service: [phone] If the patient belongs to the Stroke [...] fluctuations continue. Poly Shahid MD Vascular Neurologist [facility] Neurology ([facility]) I have personally participated in the care of this patient. I have reviewed all pertinent clinical information, including history, physical exam, investigation results and plan. I spent 40 minutes caring for this patient, and more than 50% of that time was spent on counseling the patient/rolloff driver/care team and coordinating care. Important Notice: This [...] from the original note were not included. [facility] [address] [place] [address], [address] [place] [address] * NEUROSURGERY DAILY PROGRESS NOTE DATE:04/02/2023 PATIENT'S [...] C (98.2 F) Pulse: [76-92] 81 Resp: [] 19 BP: (101-153)/(69-96) 125/79 SpO2: [91 %-98 %] 94 % O2 Device: Nasal cannula O2 Flow Rate (L/min): [2 L/min] 2 L/min EXAM Drowsy but arousable Oriented x 2 (Able to tell me her name, aware she is at [facility]) Speech is clear Slight left facial droop [...] control; no NSAIDs - PT/OT when appropriate; PLANNER following; acute dysphagia Cardiovascular: - Goal SBP [...] [facility] Neurosurgery Preferred contact via [employer] Chat For time-sensitive matters contact via Patient Touch: [phone] 04/02/23 8:55 AM Currently scheduled EVERETT can be found on [employer] by using IngagePatient and searching for PTH Neurosurgery KOTA Cadena 04/02/23 0856 ADDENDUM: Imaging reviewed by Dr. Agarwal. No neurosurgical intervention warranted. Recommend continuing to HOLD ASA; ok to resume ASA one week from today, 04/09/23. Clear for chemical prophylaxis fromneurosurgical perspective; defer initiation to primary. Neurosurgery signing off. Please call with further needs or concerns. [facility] Preferred contact via [employer] Chat For time-sensitive matters contact via Patient Touch: [phone] 04/02/23 9:25 AM Currently scheduled EVERETT can be found on [employer] by using In[employer]Patient and searching for PTH Neurosurgery KOTA Cadena 04/02/23 0925 * Christina Freitas DO - 04/02/2023 7:16 AM EST Images from the original note were not included. [facility] Neurology Neurocritical Care Progress Note: Brief Summary: [...] currently stable. Gen CCM: - Access/Indwelling catheters: Lenz day external, PIVs - Prophylaxis: DVT SCDs; [...] change in code status. documented [facility] Consult note* CLARI Rosario - 04/14/2023 7:25 AM ESTAssociated Order(s): IP CONSULT TO NUTRITION SERVICES NUTRITION ADULT FOLLOW UP NUTRITION ASSESSMENT: Patient History: Brief Clinical Summary: Patient initially presented to OSH with right sided weakness. Found to havesmall left thalamic ICH and transferred to [facility] for further care.PMHx includes HTN, GERD, AAA. Pt remains NPO, not ready for oral diet per PLANNER. PEG placed, na elevated; RD consulted for [...] 114* < > 115* CO2 mmol/L 24 24 < > 23 BUN mg/dL 24 -- -- 32* CREATININE mg/dL 0.50 0.58 [...] from last 3 days Lab Units 04/14/23 0604/13/23 07504/12/23 0844 WBC X10E9/L 9.5 10.7 12.9* HEMOGLOBIN [...] 20 04/01/2023 Lab Results Component Value Date [id number] 04/09/2023 Lab Results Component Value Date [...] Daily Christina Freitas, DO 10 mg at 04/13/23 0844 bisacodyL [...] Days Christina Freitas, DO 30 mL at 04/07/232151 magnesium sulfate IVPB 2000 mg/50 mL in iso-osmotic water (40 mg/mL premix) 2,000 mg intravenous PRN Ry De Anda MD Or magnesium sulfate IVPB 4000 mg/100 mL in iso-osmotic water (40 mg/mL premix) 4,000 mg intravenous PRN Ry De Anda MD melatonin (CIRCADIN) tablet 6 mg 6 mg nasogastric Nightly PRN Haseeb Mcnamara APRN-RETAIL SALES REPRESENTATIVE 6 mg at 04/13/23 204 metoprolol (LOPRESSOR) injection 2.5 mg 2.5 mg intravenous Q5 Min PRN Won Webster MD morphine injection 2 mg 2 mg intravenous Q5 Min PRN Won Webster MD morphine injection 4 mg 4 mg intravenous Q5 Min PRN Won Webster MD omeprazole-sodium bicarbonate (KONVOMEP) 2-84 mg/mL oral suspension 40 mg 40 mg nasogastric Daily Christina Leah Swor, DO 40 mg at 04/13/23 0900 ondansetron (PF) (ZOFRAN) injection 4 mg 4 mg intravenous Q6H PRN Christina Freitas, DO 4 mg at17 ondansetron (PF) (ZOFRAN) injection 4 mg 4 [...] mg 2 tablet 2 tablet nasogastric BID Christinashae Ignacioor, DO 2 tablet at 04/13/23 0844 [...] Skin (per nursing flow sheets): Skin Color: Svensen (04/13/232014) Skin Temp: Cool (04/13/232014) Wound (per [...] oz) Admit Weight: 67.1kg (04/01; bed scale) Power Body Weight: 54.5kg Weight Changes: slight loss from admit Admit Body Mass Index: 25.02 Current Body Mass Index: Body mass index is 24.33 kg/m . Comparative Standards: Estimated Energy Needs: 3596-3372 kcals daily. Method and weight used: 25-30 kcal/kg IBW (54.5kg) Estimated Protein Needs: 65-110 grams daily. Method and weight used: 1.2-2g protein/kg IBW Estimated Fluid Needs: 1913-9717 ml daily. Method weight used: 1ml/kcal Comments: [...] labs, POC and overall status. Balbina Neil R.D,L.Marya. Clinical dietitian Patient Touch extension:[phone] Direct Dial phone number: [phone] 04/14/23 7:52 AM * Jenelle Rahman MD - 04/11/2023 12:04 PM ESTAssociated Order(s): IP CONSULT TO RHEUMATOLOGY Images from the original note were not included. [facility] Rheumatology CONSULT NOTE DATE OF ADMISSION 04/01/2023 4:08 AM REASON FOR CONSULTATION: Positive KAY and SHEEP CLIPPER REFERRING PROVIDER: Chen Ahn APRN-RETAIL SALES REPRESENTATIVE PCP NITHYA MALLOY MD ASSESSMENT AND PLAN: Positive KAY reflex and SHEEP CLIPPER antibody of 1 -Anti DNA, chromatin, ruelas and RF came back negative -was examined today with her niece present at bedside -most of the history was obtained from the niece. She reports that the patient's birthday was celebrated before [place] and she was in her usual state [...] will develop, an autoimmune disease -Antibodies to SHEEP CLIPPER, are found often in very high levels [...] and patient was transferred to [facility] on 04/01 for further care. She had [...] Oncology which showed positive KAY screen and SHEEP CLIPPER antibody 1. Rheumatology was consulted to address this finding. PAST MEDICAL HISTORY: Past Medical History: Diagnosis Date AAA (abdominal aortic aneurysm) ([facility]) was surgically taken care of [...] 05/26/2019 Performed by Caro Pollard DO at [facility] FRACTURE Right Pins ALLERGIES: Allergies Allergen Reactions Ciprofloxacin Headache Alendronate Bee Venom Protein (Honey Bee) feels like my eyes are spinning around Xjqlkryx-Cbffgiqchfk-Tsvsmbnsq Oxycodone Headache I just don't want to [...] infiltrates. No acute change. Finalized by Rajan Pinto MD on 04/11/2023 6:52 AM Ultrasound abdomen [...] Dulce Price DO on 04/10/2023 3:43 AM I, Arianne Rodrigues MD have personally [...] IgG 786 635 - 1,741 mg/dL Free Trail Side Lt Chains 6.32 (H) 0.33 - 1.94 mg/dL Free Lambda Lt Chains 3.70 (H) 0.57 - 2.63 mg/dL Free zoila/lambda ratio 1.71 (H) 0.26 - 1.65 Immune profile inter PENDING Anti-Chromatin IGG Collection Time: 04/10/23 1:11 PM Result Value Ref Range Anti-chromatin IgG <0.2 <1.0 AI Anti-DNA antibody, double-stranded Collection Time: 04/10/23 1:11 PM Result Value Ref Range Ds DNA <1 <5 IU/ML SHEEP CLIPPER AB IgG Collection Time: 04/10/23 1:11 PM Result Value Ref Range Anti SHEEP CLIPPER 1.0 (H) <1.0 AI Anti-Ruelas AB IGG Collection Time: 04/10/23 1:11 PM Result Value Ref Range Anti-ruelas AB IgG <0.2 <1.0 AI Ruelas/SHEEP CLIPPER AB IgG Collection Time: 04/10/23 1:11 PM Result Value Ref Range Anti-Sm/SHEEP CLIPPER <0.2 <1.0 AI Electrolyte panel Collection Time: [...] 15 mmol/L Associated attestation - Tawanda, Kishore Alonso MD - 04/16/2023 8:31 AM EST I [...] Referring Physician: Willard Krueger MD PCP: NITHYA MALLOY MD Chief Compliant: Principal Problem: 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[facility]) Reason for Consultation: Rehabilitation [facility] [employer] Physicians/Services Consulting Providers Provider Service Specialty Jazmine Mckeon MD -- Neurology Michele Estrada MD -- Hematology Kishore Calvo MD -- Rheumatology Agatha Eden MD Z [...] History: Diagnosis Date AAA (abdominal aortic aneurysm) ([facility]) was surgically taken care of 09/2018 GERD [...] 05/26/2019 Performed by Caro Pollard DO at [facility] FRACTURE Right Pins Allergies Allergies Allergen Reactions Ciprofloxacin Headache Alendronate Bee Venom Protein (Honey Bee) feels like my eyes are spinning around Uoykbvxl-Pnovnihssig-Gwfubtjtm Oxycodone Headache I just don't want to [...] infiltrates. No acute change. Finalized by Rajan Pinto MD on 04/11/2023 6:52 AM LABS Recent [...] IgG 786 635 - 1,741 mg/dL Free Trail Side Lt Chains 6.32 (H) 0.33 - 1.94 mg/dL Free Lambda Lt Chains 3.70 (H) 0.57 - 2.63 mg/dL Free zoila/lambda ratio 1.71 (H) 0.26 - 1.65 Immune profile inter PENDING Anti-Chromatin IGG Collection Time: 04/10/23 1:11 PM Result Value Ref Range Anti-chromatin IgG <0.2 <1.0 AI Anti-DNA antibody, double-stranded Collection Time: 04/10/23 1:11 PM Result Value Ref Range Ds DNA <1 <5 IU/ML SHEEP CLIPPER AB IgG Collection Time: 04/10/23 1:11 PM Result Value Ref Range Anti SHEEP CLIPPER 1.0 (H) <1.0 AI Anti-Ruelas AB IGG Collection Time: 04/10/23 1:11 PM Result Value Ref Range Anti-ruelas AB IgG <0.2 <1.0 AI Ruelas/SHEEP CLIPPER AB IgG Collection Time: 04/10/23 1:11 PM Result Value Ref Range Anti-Sm/SHEEP CLIPPER <0.2 <1.0 AI Electrolyte panel Collection Time: [...] Limited by R hemiparesis and poor balance (12/28/23 1041) Assessment/Plan Principal Problem: 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CMS-HCC) [...] the original note were not included. [facility] Jack Meraz M.D. Austin Spain M.D. Arianne Cha M.D. Rere [place], SUPERVISOR [employer] hCen Ahn, SUPERVISOR M[employer] LENS-RETAIL SALES REPRESENTATIVE Miriam Cm, SUPERVISOR [employer] Sushma Long, SUPERVISOR [employer] AZIZA Herring M.D. Feng Jiang, M.D. Jeffrey Muler, M.D. Donaldo Weems M.D. Isabel Garrett, SUPERVISOR [facility] Piedad Armando, SUPERVISOR M[employer] LENS-RETAIL SALES REPRESENTATIVE Josh Gale, SUPERVISOR MULTIFOCAL LENSRETAIL SALES REPRESENTATIVE Nayely Ruelas, SUPERVISOR M[employer] LENS-RETAIL SALES REPRESENTATIVE Rachna Burk, SUPERVISOR M[employer]OC[employer] LENS-[facility] HEMATOLOGY ONCOLOGY CONSULT NOTE Reason for consult: for thrombocytopenia History of present illness: The patient is a 78 y.o. female with a PMHx of AAA, GERD, HTN. She presented to [facility] from an OSH with right-sided weakness. She [...] History: Diagnosis Date AAA (abdominal aortic aneurysm) ([facility]) was surgically taken care of [...] 05/26/2019 Performed by Caro Pollard DO at [facility] F[facility] Right Pins History reviewed. [...] feels like my eyes are spinning around Gapnrmwa-Ycejksnskyq-Gtkjbaxej Oxycodone Headache I just don't want to [...] Insp. O2 Conc. 44 % Oxygen Source NE Comprehensive metabolic panel Collection Time: 04/07/23 3:34 [...] improvement on the left. Finalized by Rajan Pinto MD on 04/08/2023 8:21 AM X-ray chest [...] compared to recent radiographs. Finalized by Rajan Pinto MD on 04/07/2023 5:[address] brain [...] or primary neurological disorders. Darnell Buenrostro MD Ocular Care Aide Neurology/Neurophysiology [facility] Echo complete W/O contrast Result Date: [...] or primary neurological disorders. Darnell Buenrostro MD Ocular Care Aide Neurology/Neurophysiology [facility] X-ray abdomen NG Tube placement 1 [...] recording. The background is primarily composed of [id number] uv theta and delta and theta range [...] or primary neurological disorders. Darnell Buenrostro MD Ocular Care Aide Neurology/Neurophysiology [facility] X-ray chest 1 view Result Date: [...] hemorrhagic changes. At 5:20 a.m. the residential specialist called the patient's nurse Shen Chacko and [...] Patient Active Problem List Diagnosis 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[facility]) Assessment/Plan Impression: #. Thrombocytopenia - Platelet 74,000 [...] work up. Code Status: Modified Code Status [place] Further medical management of comorbid conditions per primary team and consulting services, appreciate assistance The patient was seen and examined and all plans and orders were agreed upon with the attending physician on service today, Dr. Meraz Thank you for the consultation. Chen Ahn, SUPERVISOR MULT[employer]OC[employer] LENS-RETAIL SALES REPRESENTATIVE [facility] [address] [place] [address] Epic Chat is my preferred mode of contact. For after hours (evening, weekends, holidays) Hematology Oncology needs, please call the spa concierge service [phone]. Please ask for the MD spa concierge. April 09, 2023, 3:34 PM I, Jack Mearz MD, personally performed the face to face [...] bedside. She is not medical power of tax attorney, but has been present throughout patient's [...] History: Diagnosis Date AAA (abdominal aortic aneurysm) ([facility]) was surgically taken care of 09/2018 GERD [...] 05/26/2019 Performed by Caro Pollard DO at [facility] FRACTURE Right Pins Allergies Allergen Reactions Ciprofloxacin Headache Alendronate Bee Venom Protein (Honey Bee) feels like my eyes are spinning around Zdwfihjr-Bnxrcoclxof-Nfovsmwyp Oxycodone Headache I just don't want to [...] 20 mg, 20 mg, nasogastric, Daily, Christina Grossbeth Swor, DO, 20 mg at 04/07/23 0815 [...] Daily, Christina Mendozaor, DO, 40 mg at 04/07/23 0955 ondansetron (PF) (ZOFRAN) injection 4 mg, 4 mg, intravenous, Q6H PRN, Christina Freitas, DO, 4 mg at 04/06/23 2137 [COMPLETED] [...] compared to recent radiographs. Finalized by Rajan Pinto MD on 04/07/2023 5:35 AM Assessment: Ellen Chan is a 78 y.o.female with dysphagia secondary to thalamic stroke. General surgery consulted for PEG tube placement. Plan: Will discuss PEG scheduling following resolution of multifocal pneumonia, electrolyte abnormalities, JOHN. Will have repeat discussion with patient's medical power of tax attorney when present. Continue tube feeds in interim Marysol Umana MD General Surgery Resident, PGY-3 Acute Care Surgery/ACS 6a-6p pager #[phone] 6p-6a pager #[phone] Associated attestation - Estevan Duff DO - [...] availability. Willdiscuss with patient's medical power of tax attorney regarding procedure and consent. Estevan Duff D.O. * Amita Kovacs, CLAIR - 04/02/2023 2:26 PM ESTAssociated Order(s): IP [...] 2014 LAPAROSCOPIC CHOLECYSTECTOMY N/A 05/26/2019 Performed by Caor Pollard DO at [facility] FRACTURE Right Pins Social/ [...] injection 20 mg 20 mg intravenous Q24H [facility] Christina Freitas DO 20 mgat 04/01/23 1720 glucagon HCL injection 1 mg 1 mg intramuscular PRN Ry De Anda MD hydrALAZINE (APRESOLINE) injection 10 mg 10 mg intravenous Q4H PRN Christina Freitas DO labetaloL (NORMODYNE,TRANDATE) injection 10 mg 10 mg intravenous Q5 Min PRN Christina Leah Mendozaor, DO 10 mg at 04/01/23 0616 magnesium [...] 0.9 % infusion 10 mL/hr intravenous Continuous NORBERT De Anda MD sodium chloride 0.9 % infusion 10 mL/hr intravenous Continuous PRAlbania De Anda MD 10 mL/hr at 04/02/23 [...] feels like my eyes are spinning around Nztxzggo-Jkxlvsziadd-Ezhigxlli Oxycodone Headache I just don't want to [...] oz) Admit Weight: 67.1kg (04/01; bed scale) Power Body Weight: 54.5kg Percent Power Body Weight: 123 Body Mass Index: Body mass index is 25.39 kg/m . BMI Category: Pre-obese (25.00- 29.99) Comparative Standards: Estimated Energy Needs: 5490-1146 kcals daily. Method and weight used: 25-30 kcal/kg IBW (54.5kg) Estimated Protein Needs: 65-110 grams daily. Method and weight used: 1.2-2g protein/kg IBW Estimated Fluid Needs: 3775-1966 ml daily. Method weight used: 1ml/kcal Comments: [...] LD Clinical Dietitian Direct Line: * Christina Villalobos Rejijohnny DO - 04/01/2023 10:30 AM ESTAssociated Order(s): IP CONSULT TO ENTRY LEVEL ASSISTANT MANAGER Images from the original note were not included. [facility] Neurology Neurocritical Care Initial Consult Note Brief [...] currently stable. Gen CCM: - Access/Indwelling catheters: Lenz day external, PIVs - Prophylaxis: DVT SCDs; [...] time is exclusive on any procedures performed. Y Agarwal MD - 04/01/2023 6:57 AM ESTAssociated Order(s): IP CONSULT TO NEUROSURGERY Images from the original note were not included. [facility] [address] [place] [address], [address] [place] [address] * NEUROSURGERY CONSULT NOTE DATE:04/01/2023 PATIENT'S NAME: [...] feels like my eyes are spinning around Yckegvhj-Fubnzhtugbz-Zehrxdzgy Oxycodone Headache I just don't want to [...] History: Diagnosis Date AAA (abdominal aortic aneurysm) ([facility]) was surgically taken care of 09/2018 GERD [...] 05/26/2019 Performed by Caro Pollard DO at [facility] FRACTURE Right Pins FAMILY HISTORY [...] DVT prophylaxis: EPC; no chemical prophylaxis Aleida Tilley APRN-RETAIL SALES REPRESENTATIVE [facility] Contact via patient touch 04/01/23 7:13 AM To find out which EVERETT is on for the day please go to [employer] and use log in IngagePatient and search for PTH Neurosurgery (EVERETT and Phone Number is listed) KOTA Sheridan 04/01/23 0713 Reviewed imaging studies. [address] demonstrated blossoming. Recommend [address]. Surgical intervention is unlikely to be warranted as risk/benefit profile at her age favors non-operative management. - Dulce Agarwal MD 04/01/23 8:15 AM documented in this encounterCh[facility]ic[facility] [facility] Nurse Note* Oksana Mathis RN - 04/11/2023 9:20 AM EST Multidisciplinary Rounds Attendees: Bedside RN, Unit clinical lead, Stroke RN, and PT, OT, PLANNER Diet: Dietary Orders (From admission, onward) Start Ordered 04/11/23 0800 Free water Every 4 hours Question Answer Comment Amount in mL 350 Tube Type: Nasogastric or Oral gastric feeding tube 04/11/23 0721 04/11/23 0608 Adult diet NPO; Except medications Diet effective now Question Answer Comment Diet Type: NPO NPO Except: Except medications 04/11/23 0607 PT OT PLANNER: PT OT PLANNER Orders (From admission, onward) Start Ordered 04/01/23 [...] ST? Bedside Swallow 04/01/23411 Activity: None Comments: Lenz yes CVL: No Drips: None Intubated: No Family Issues: None Outstanding Tests/Procedures: OR Barriers: None Discharge Plan: LTAC * Michela Simmons RN - 04/10/2023 8:45 AM EST Multidisciplinary Rounds Attendees: Bedside RN, Unit clinical lead, PT, OT, PLANNER, and Care navigation Diet: Dietary Orders (From [...] Rate (mL/hour): 45 04/02/23 1509 PT OT PLANNER: PT OT PLANNER Orders (From admission, onward) Start Ordered 04/01/23 [...] Swallow 04/01/23411 Activity: Up with assist Comments: Lenz: Yes and Continues to meet requirements CVL: [...] Rate (mL/hour): 45 04/02/23 1509 PT OT PLANNER: PT OT PLANNER Orders (From admission, onward) Start Ordered 04/01/23 [...] Swallow 04/01/23411 Activity: Up with assist Comments: Lenz: Yes and Continues to meet requirements CVL: No Drips: None Intubated: No Family Issues: None Outstanding Tests/Procedures: VFSS vs PEG placement Barriers: None Discharge Plan: [facility] [place] accepting * Micehla Simmons RN - 04/08/2023 7:59 AM EST [...] Rate (mL/hour): 45 04/02/23 1509 PT OT PLANNER: PT OT PLANNER Orders (From admission, onward) Start Ordered 04/01/23 [...] Swallow 04/01/23411 Activity: Up with assist Comments: Lenz: Yes and Continues to meet requirements CVL: [...] Rate (mL/hour): 45 04/02/23 1509 PT OT PLANNER: PT OT PLANNER Orders (From admission, onward) Start Ordered 04/01/23 [...] ST? Bedside Swallow 04/01/23411 Activity: Bedrest Comments: Lenz: Yes and Continues to meet requirements CVL: No Drips: None Intubated: No Family Issues: None Outstanding Tests/Procedures: None Barriers: Respiratory status Discharge Plan: SNIF * Sahra Lopez RN - 04/04/2023 8:43 AM EST Multidisciplinary Rounds Attendees: Bedside RN, Unit clinical lead, Stroke RN, PT, OT, PLANNER, Care navigation, and Dietary Diet: Dietary Orders [...] Rate (mL/hour): 45 04/02/23 1509 PT OT PLANNER: PT OT PLANNER Orders (From admission, onward) Start Ordered 04/01/23409 [...] degrees, Chair, and Up with assist Comments: Lenz: Yes-retention CVL: No Drips: None Intubated: No Family Issues: None Outstanding Tests/Procedures: None Barriers: None Discharge Plan: Needs PT/OT evaluation * Paula Castillo RN - 04/01/2023 7:43 AM EST Multidisciplinary Rounds Attendees: Bedside RN, Unit clinical lead, Stroke RN, PT, OT, PLANNER, and Care navigation Diet: Dietary Orders (From admission, onward) Start Ordered 04/01/23408 Adult diet NPO Diet effective now Comments: Contact physician for diet order if patient passes bedside dysphagia screen. Question: Diet Type: Answer: NPO 04/01/23411 PT OT PLANNER: PT OT PLANNER Orders (From admission, onward) Start Ordered 04/01/23409 [...] ST? Bedside Swallow 04/01/23411 Activity: none Comments: Lenz: Yes CVL: No Drips: Insulin Intubated: No Family Issues: None Outstanding Tests/Procedures: None Barriers: None Discharge Plan: Needs PT/OT evaluation [facility] History and physical note* Ry De Anda MD - 04/01/2023 3:29 AM EST Stroke / Neurointerventional Ischemic stroke admission note: Date of admission : 04/01/2023 Chief complaint: Right-sided weakness Last known well: 9:00 a.m. on 03/31/2023 Premorbid mRS: 0 Initial NIHSS: 1 NIHSS at [facility]: 4 First CTH: Small left thalamic ICH History of presenting illness: Ellen Chan is a 78 y.o. female with a PMH of HTN, GERD, AAA who presented to an outside hospital with a right-sided weakness. BP on presentation was 155/112. NIHSS was 1. CT head showed small left thalamic ICH. Patient was transferred to [facility] for further care. Patient stated that her [...] History: Diagnosis Date AAA (abdominal aortic aneurysm) ([facility]) was surgically taken care of [...] 05/26/2019 Performed by Caro Pollard DO at [facility] WRIST FRACTURE Right Pins Family history: Shefamily history is not on file. Allergies: Sheis allergic to ciprofloxacin, alendronate, bee venom protein (honey bee), vbmbowaj-ngpswjghteb-wvlycinxl, and oxycodone. Social history: Social History Socioeconomic [...] touch bilaterally symmetric and normal Coordination: Impaired oilwuf-dhit-sjlwyx testing on the right. NIH Stroke Scale [...] ICH. Patient was transferred to [facility] for further care. Sx began at 9:00 a.m. It started off as weakness involving her right leg. No prior stroke or anticoagulation use. lives independently and does all ADLs. NIHSS was 4 at [facility]. Impression Left thalamic ICH likely secondary to [...] PT/OT/ST Ry De Anda MD PGY-2 Neurology [facility] 04/01/23 Plan and findings have been discussed [...] of care as outlined. [facility] Evaluation note* Encounter Date Diagnosis Assessment Notes [...] possible carpal tunnel release in the future. [facility] Other 06-27-2023 Evaluation note* Encounter Date Diagnosis [...] Right carpal tunnel syndrome (ICD-10 - G56.01) [facility] Other 06-02-2023 Evaluation note* Encounter Date Diagnosis [...] appropriate. Patient with verbal understanding of above. 02 Sep, 2022 Allergic reaction to wasp sting (ICD-10 - T63.461A) [facility] Other 05-26-2023 Evaluation note* Encounter Date Diagnosis [...] refer for EMG testing. Patient is agreeable. [facility] Other 04-14-2023 Evaluation note* Encounter Date Diagnosis [...] Other specified postprocedural states (ICD-10 - Z98.890) [facility] Other 03-15-2023 Evaluation note* Encounter Date Diagnosis [...] Other specified postprocedural states (ICD-10 - Z98.890) [facility] Other 02-27-2023 Evaluation + Plan note Future Scheduled Tests Radiology* CTA Abdomen and Pelvis 06/04/22 * CTA Chest 06/04/22 [facility]02-15-2023 Evaluation note* Encounter Date Diagnosis Assessment [...] of edema glove and soaking as discussed. [facility] Other 02-01-2023 Evaluation note* Encounter Date Diagnosis Assessment Notes Treatment Notes Treatment Clinical Notes May, Other closed extra-articular fracture of distal end of right radius with routine healing, subsequent encounter (ICD-10 - S52.872M) Patient presents to the office 1 week [...] Other specified postprocedural states (ICD-10 - Z98.890) [facility] Other 01-20-2023 NotePROCEDURE: XR WRIST RT MIN [...] Electronically authenticated by: ANTOLIN VALLADARES Date: 2022-04-27 08:49[facility]01-03-2023 Evaluation note* Encounter Date Diagnosis Assessment Notes [...] Apr, Annual physical exam (ICD-10 - Z00.00) [employer] Other Evaluation noteNo assessment information available [facility] Work Phone: Evaluation noteNo InformationNortPenn State Health [facility] Other Evaluation note* Diagnosis History of AAA (abdominal aortic aneurysm) repair- Primary Other postprocedural status Ruptured aneurysm of descending thoracic aorta ([facility]) documented [facility] encounter [facility]* Diagnosis 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CMS-HCC)- Primary Intracerebral hemorrhage 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[facility]) Intracerebral hemorrhage documented in this encounter [facility]* Diagnosis 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[facility])- Primary Intracerebral hemorrhage documented in this encounter [facility]* Diagnosis 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CMS-HCC)- Primary Intracerebral hemorrhage documented in [facility] encounter [facility]* Diagnosis Acute lower GI bleeding- Primary Unspecified, hemorrhage of gastrointestinal tract Acute lower GI bleeding Unspecified, hemorrhage of gastrointestinal tract Suprapatellar bursitis of right knee Acute blood loss anemia Acute posthemorrhagic anemia History of hemorrhagic cerebrovascular accident (CVA) with residual deficit Essential hypertension Unspecified essential hypertension Ischemic colitis (CMS-HCC) Dementia ([facility]) Other persistent mental disorders due to conditions classified elsewhere History of AAA (abdominal aortic aneurysm) repair Other postprocedural status Right renal mass Unspecified disorder of kidney and ureter [facility] Narrative - Reported* Type Description Date Medical History Arthritis Medical History hypertension Surgical History broken wrist 1979 Surgical History hysterectomy 1979 Surgical History D&C 1979 Surgical History left knee Surgical History ORIF right wrist 04/30/22 Hospitalization History see above [facility] Other Hospital course Narrative No data available for this section [facility] Additional Instructions DR. MANE'S [...] to decrease risk of infection after surgery [facility] Work Phone: Hospital Discharge instructions No data available for this section [facility]ructionsNot on filedocumented in this encounter [facility] [...] note No data available for this section [facility] (narrative)* Consultation (Routine) - Pending Review Specialty Diagnoses / Procedures Referred By Colt young Referred To Contact Orthopedic Surgery Diagnoses Suprapatellar bursitis of right knee Gabby Dickson MD [address] [place] [address], [address] [place] [address] [place] [address] [place] [address] [address] [place] [address] Referral ID Status Reason Start Date Expiration Date Visits Requested Visits Authorized [id number] Pending Review Specialty Services Required 06/16/2023 06/15/2024 1 1 * Misc (Routine) - Pending Review Specialty Diagnoses / Procedures Referred By Contac t Referred To Contact Procedures Discharge Follow-Up Gabby Dickson MD [address] [place], [place] [address] Referral ID Status Reason Start Date Expiration Date V isits Requested Visits Authorized [id number] Pending Review 06/16/2023 06/15/2024 1 1 * Misc (Routine) - Pending Review Specialty Diagnoses / Procedures Referred By Contac t Referred To Contact Diagnoses Acute lower GI bleeding Procedures Follow-up with primary care provider Gabby Dickson MD [address] [place], [place] [address] Referral ID Status Reason Start Date Expiration Date V isits Requested Visits Authorized [id number] Pending Review 06/16/2023 06/15/2024 1 1 * Misc (Routine) - Pending Review Specialty Diagnoses / Procedures Referred By Contac t Referred To Contact Procedures Adult diet Gabby Dickson MD [address] [place] [address] Referral ID Status Reason Start Date Expiration Date V isits Requested Visits Authorized [id number] Pending Review 06/16/2023 06/15/2024 1 1 [facility] Summary Purpose Family History No Family History Records Found Relationship Condition Age at Onset Recorded Date/T becky natural son Diabetes mellitus Unknown Advance Directives No Advanced Directives Records Found Advance Directive Response Recorded Date/ Time Advance Directives No April 27, 2022 5:07pm Advance Directive Response Recorded Date/ Time Advance Directives No April 27, 2022 6:07pm Documents on File Type Date Recorded Patient Telesales Advisor Expl anation DNR Physician Order 06/21/2023 10:34 AM Durable Power of Ceramics Technician 04/25/2023 6:31 AM Living Will 04/25/2023 6:21 AM Durable Power of Ceramics Technician 05/26/2019 6:13 AM healthcare POA Living Will 05/26/2019 6:10 AM living vane l Date Activated Date Inactivated Comments 04/02/2023 3:01 PM 04/17/2023 1:07 PM Question Answer Comments Code Limitations: No Chest CompressionsNo Defibr illation or Cardioversion Date Activated Date Inactivated Comments 04/02/2023 2:19 PM 04/02/2023 3:01 PM Date Activated Date Inactivated Comments 04/02/2023 8:11 AM 04/02/2023 2:19 PM Healthcare Agents on File Name Relationship [facility] Agent ([employer]) Documents on File Type Date Recorded Patient Telesales Advisor Expl anation DNR Physician Order 06/21/2023 10:34 AM Durable Power of Ceramics Technician 04/25/2023 6:31 AM Living Will 04/25/2023 6:21 AM Durable Power of Ceramics Technician 05/26/2019 6:13 AM healthcare POA Living Will 05/26/2019 6:10 AM living vane l Date Activated Date Inactivated Comments 04/02/2023 3:01 PM 04/17/2023 1:07 PM Question Answer Comments Code Limitations: No Chest CompressionsNo Defibr illation or Cardioversion Date Activated Date Inactivated Comments 04/02/2023 2:19 PM 04/02/2023 3:01 PM Date Activated Date Inactivated Comments 04/02/2023 8:11 AM 04/02/2023 2:19 PM Healthcare Agents on File Name Relationship Healthcare Agent Relationshi p Communication Roula Alexis [facility] Agent ([employer]) Documents on File Type Date Recorded Patient Telesales Advisor Expl anation Durable Power of Ceramics Technician 05/26/2019 6:13 AM healthcare POA Living Will 05/26/2019 6:10 AM living vane l Latest Code Status on File Code Status Date Activated Date Inactivated Comments Modified Code Status [place] 04/02/2023 3:01 PM 04/17/2023 1:07 PM Question Answer Comments Code Limitations: No Chest Compressions No Defibrillation or Cardioversion Code Status History Code Status Date Activated Date Inactivated Comments DNR Comfort Care Arrest (DNR-CCA) [place] 04/02/2023 2:19 PM 04/02/2023 3:01 PM Full Code 04/02/2023 8:11 AM 04/02/2023 2:19 PM Healthcare Agents on File Name Relationship Healthcare Agent Relationshi p Communication Roula Alexis [facility] Care Agent Documents on File Type Date Recorded Patient Telesales Advisor Expl anation Durable Power of Ceramics Technician 05/26/2019 6:13 AM healthcare POA Living Will 05/26/2019 6:10 AM living vane l Latest Code Status on File Code Status Date Activated Date Inactivated Comments Modified Code Status [place] 04/02/2023 3:01 PM 04/17/2023 1:07 PM Question Answer Comments Code Limitations: No Chest Compressions No Defibrillation or Cardioversion Code Status History Code Status Date Activated Date Inactivated Comments DNR Comfort Care Arrest (DNR-CCA) [place] 04/02/2023 2:19 PM 04/02/2023 3:01 PM Full Code 04/02/2023 8:11 AM 04/02/2023 2:19 PM Healthcare Agents on File Name Relationship Healthcare Agent Relationshi p Communication [facility] Documents on File Type Date Recorded Patient Telesales Advisor Expl anation Durable Power of Ceramics Technician 04/25/2023 6:31 AM Living Will 04/25/2023 6:21 AM Durable Power of Ceramics Technician 05/26/2019 6:13 AM healthcare POA Living Will 05/26/2019 6:10 AM living vane l Healthcare Agents on File Name Relationship Healthcare Agent Relationshi p Communication [facility] Healthcare Agents on File Name Relationship Healthcare Agent Relationshi p Communication Roula Alexis [facility] Health Care Agent Documents on File Type Date Recorded Patient Telesales Advisor Expl anation Durable Power of Ceramics Technician 04/25/2023 6:31 AM Living Will 04/25/2023 6:21 AM Durable Power of Ceramics Technician 05/26/2019 6:13 AM healthcare POA Living Will 05/26/2019 6:10 AM living vane l Healthcare Agents on File Name Relationship Healthcare Agent Relationshi p Communication Roula [facility] Care Agent Healthcare Agents on File Name Relationship Healthcare Agent Relationshi p Communication Roula [facility] Health Care Agent Healthcare Agents on File Name Relationship Healthcare Agent Relationshi p Communication Roula [facility] Health Care Agent Healthcare Agents on File Name Relationship Healthcare Agent Relationshi p Communication Roula Miranda Health Care Agent Healthcare Agents on File Name Relationship Healthcare Agent Relationshi p Communication Roula Miranda Health Care Agent Chief Complaint and Reason for Visit Chief Complaint wrist fx Chief Complaint wrist fx S52.551D Chief Complaint wrist fx S52.551D S52.551D Reason for Referral Specialty Diagnoses / Procedures Referred By Contac t Referred To Contact Radiology Diagnoses 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[facility]) Procedures MR brain with and without contrast Marita Wu MD [address] [place] [address], [address] [place] [address] Referral ID Status Reason Start Date Expiration Date V isits Requested Visits Authorized [id number] Pending Review 06/04/2023 06/03/2024 1 1 Specialty Diagnoses / Procedures Referred By Contac t Referred To Contact Procedures Adult diet- Regular Adult diet- Regular Artemio Ray MD [address] [place] [address], [address] [place] [address] Referral ID Status Reason Start Date Expiration Date V isits Requested Visits Authorized [id number] Pending Review 04/16/2023 04/15/2024 1 1 Specialty Diagnoses / Procedures Referred By Contac t Referred To Contact Procedures Discharge Follow-Up Artemio Ray MD [address] [place] [address], [address] [place] [address] Referral ID Status Reason Start Date Expiration Date V isits Requested Visits Authorized [id number] Pending Review 04/16/2023 04/15/2024 1 1 Specialty Diagnoses / Procedures Referred By Contac t Referred To Contact Diagnoses 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CMS-HCC) Procedures Follow-up with primary care provider Artemio Ray MD [address] [place] [address] Referral ID Status Reason Start Date Expiration Date V isits Requested Visits Authorized [id number] Pending Review 04/16/2023 04/15/2024 1 1 Specialty Diagnoses / Procedures Referred By Contac t Referred To Contact Diagnoses 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CMS-HCC) Artemio Ray MD [address] [place] [address], [address] [place] [address] Referral ID Status Reason Start Date Expiration Date V isits Requested Visits Authorized [id number] Pending Review 04/16/2023 04/15/2024 1 1 Specialty Diagnoses / Procedures Referred By Contac t Referred To Contact Speech Pathology Diagnoses 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CMS-HCC) Artemio Ray MD [address] [place] [address] Referral ID Status Reason Start Date Expiration Date Visits Requested Visits Authorized [id number] Pending Review Specialty Services Required 04/16/2023 04/15/2024 1 1 Specialty Diagnoses / Procedures Referred By Contac t Referred To Contact Behavioral Health Diagnoses 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CMS-HCC) Artemio Ray MD [address] [place] [address] Referral ID Status Reason Start Date Expiration Date Visits Requested Visits Authorized [id number] Pending Review Specialty Services Required 04/16/2023 04/15/2024 1 1 Specialty Diagnoses / Procedures Referred By Contac t Referred To Contact Rehabilitation Diagnoses 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CMS-HCC) Artemio Ray MD [address] [place] [address] Referral ID Status Reason Start Date Expiration Date Visits Requested Visits Authorized [id number] Pending Review Specialty Services Required 04/16/2023 04/15/2024 1 1 Specialty Diagnoses / Procedures Referred By Contac t Referred To Contact Occupational Therapy Diagnoses 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CMS-HCC) Artemio Ray MD [address] [facility], [address] [place] [address] Referral ID Status Reason Start Date Expiration Date Visits Requested Visits Authorized [id number] Pending Review Specialty Services Required 04/16/2023 04/15/2024 1 1 Specialty Diagnoses / Procedures Referred By Contac t Referred To Contact Radiology Diagnoses History of AAA (abdominal aortic aneurysm) repair Procedures CT angiogram abdomen and pelvis Leon Hyde MD [address], [address] [address] Referral ID Status Reason Start Date Expiration Date V isits Requested Visits Authorized [id number] Pending Review 08/01/2023 07/31/2024 1 1 Specialty Diagnoses / Procedures Referred By Contac t Referred To Contact Radiology Diagnoses 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) Procedures CT angiogram chest Leon Hyde MD [address], [address] [address] Referral ID Status Reason Start Date Expiration Date V isits Requested Visits Authorized [id number] Pending Review 08/01/2023 07/31/2024 1 1 Reason EMG for RCTS Diagnosis 1 Other closed extra-a rticular fracture of distal end of right radius with routine healing, subsequent encounter (S52.309U) Referral Organization [facility] Referring Provider First Name Kate Referring Provider Last Name Teresa Referring Provider 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 y Referred Organization [facility] Referred Address [address] [place], [place],[address] Referred Provider Specialty Neurology Referral Priority Routine Additional Source Comments INFORMATION SOURCE (unrecogn ized section and content) DATE CREATED AUTHOR 08/01/2021 [facility] DATE CREATED AUTHOR AUTHOR'S ORGANIZ ATION 05/15/2022 [facility] DATE CREATED AUTHOR AUTHOR'S ORGANIZ ATION 09/15/2022 [facility] DATE CREATED AUTHOR AUTHOR'S ORGANIZ ATION 10/09/2022 [facility] DATE CREATED AUTHOR AUTHOR'S ORGANIZ ATION 06/18/2023 [facility] DATE CREATED AUTHOR AUTHOR'S ORGANIZ ATION 01/11/2024 [facility] DATE CREATED AUTHOR AUTHOR'S ORGANIZ ATION 09/02/2024 [facility] Care Teams (unrecognized sec tion and content) Team Status: Active Member Role Status Dates Nithya Malloy MD Primary Care Provider Active Team Status: Inactive Member Role Status Dates Nithya Malloy MD Primary Care Provider Active Kate Mane MD Attending Provider Active Control Clerk Repairs Relationship Specialty Start Date End Date Nithya Malloy MD [address] [place] [address] PCP - General Family Medicine 05/05/19 Control Clerk Repairs Relationship Specialty [place] [address] [place] [address] PCP - General Family Medicine 05/05/19 Control Clerk Repairs Relationship Specialty [place] [address] [place] [address] PCP - General Family Medicine 05/05/19 Control Clerk Repairs Relationship Specialty Start Date End Date Nithya Malloy MD [address] [place] [address] PCP - General Family Medicine 05/05/19 Control Clerk Repairs Relationship Specialty Start Date End Date Nithya Malloy MD [address] [place] [address] PCP - General Family Medicine 05/05/19 Control Clerk Repairs Relationship Specialty Start Date End Date Nithya Malloy MD [address] [place] [address] PCP - General Family Medicine 05/05/19 Control Clerk Repairs Relationship Specialty Start Date End Date Nithya Malloy MD [address] [place] [address] PCP - General Family Medicine 05/05/19 Control Clerk Repairs Relationship Specialty Start Date End Date Nithya Malloy MD [address] [place] [address] PCP - General Family Medicine 05/05/19 Control Clerk Repairs Relationship Specialty Start Date End Date Nithya Malloy MD [address] [place] [address] PCP - General Family Medicine 05/05/19 Control Clerk Repairs Relationship Specialty Start Date End Date Nithya Malloy MD [address] [place] [address] PCP - General Family Medicine 05/05/19 Control Clerk Repairs Relationship Specialty Start Date End Date Nithya Malloy MD [address] [place] [address] PCP - General Family Medicine 05/05/19 REASON FOR VISIT (unrecogniz ed section and content) Specialty Diagnoses / Procedures Referred By Contac t Referred To Contact Diagnoses 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CMS-HCC) Left thalamic hemorrhage Willard Krueger MD [address] [facility] [place] [address] Referral ID Status Reason Start Date Expiration Date Visits Re quested Visits Authorized [id number] 1 1 Reason Onset Date Comments video visit 05/06/2023 Reason Onset Date Comments MRI Order 05/31/2023 Specialty Diagnoses / Procedures Referred By Contac t Referred To Contact Diagnoses Acute lower GI bleeding lower gi bleed Emilee Marie, DO [address] [place] [address] Referral ID Status Reason Start Date Expiration Date Visits Re quested Visits Authorized [id number] 1 1 Scheduled Active and Recently Administ [...] 1105 (Given - Provider: Nicole Altamirano RN) 09 (Due) bisacodyL (DULCOLAX) suppository 10 mg 10 [...] J López RN)2050 (Given - Provider: Ethel Marshall, ELIZABETH) 999 (Given - Provider: Nicole Altamirano RN)2104 (Given - Provider: Ethel Marshall RN) 09 (Due) fondaparinux (ARIXTRA) injection 2.5 mg 2.5 [...] Look-alike/sound-alike medication - verify indication for use. 0927 (Given - Provider: Jose J López RN)2050 [...] 09 (Given - Provider: Nicole Altamirano RN) 899 (Due) sennosides-docusate sodium (SENOKOT-S) 8.6-50 mg 2 tablet 2 tablet, nasogastric, 2 times daily, First dose (after last modification) on Sat04/03/23 at 0900 0928 (Given - Provider: Jose J López RN)2099 (Not Given - Provider: Ethel Marshall RN - Reason: Order parameters not met) 918 (Given - Provider: Nicole Altamirano RN)2104 (Given - Provider: Ethel Marshall RN) 09 (Due) PRN Medication Order 04/15/2023 04/16/2023 04/17/2023 acetaminophen (TYLENOL) 650 mg/20.3 mL solution 650 mg 650 mg, nasogastric, Every 6 hours PRN, mild pain - pain scale 1-3, temperature greater than 38 C, headaches, Starting on Sat04/03/23 at 0833 0929 (Given - Provider: Jose J López RN)2050 (Given - Provider: Ethel Marshall RN) 1107 (Given - Provider: Nicole Altamirano RN)2105 (Given [...] Give with a full glass of water. Scheduled Medication Order 06/14/2023 06/15/2023 06/16/2023 amLODIPine (NORVASC) tablet 10 mg 10 mg, oral, Daily, First dose on 06/15/23 at 0900, Look-alike/sound-alike medication - verify indication for use. Avoid grapefruit juice. 0849 (Given - Provider: Susan Layton RN, Instructor) 0920 (Given - Provider: Aundrea Ocampo RN) cefTRIAXone (ROCEPHIN) 1,000 mg in sodium chloride 0.9 % 50 mL IVPB-MBP 1,000 mg, intravenous, at 100 mL/hr, Administer over 30 Minutes, Every 24 hours, First dose on Lety 06/13/23 at 0500, Look-alike/sound-alike medication - verify indication for use. Do not co-administer with calcium-containing solutions such as Lactated Ringers., Indication: Intra-abdominal 0507 (New Bag - Provider: Isela Sue RN)0537 (Stop Bag - Provider: Isela Sue RN)1248 (MAR Hold - Provider: Automatic Transfer Provider - Reason: Unreviewed Transfer Orders)1511 (JUN Unhold - Provider: Automatic Transfer Provider) 0439 (New Bag - Provider: Kristie Curiel RN)0509 (Stop Bag - Provider: Kristie Curiel RN) 0555 (New Bag - Provider: Enma Yates RN)0625 (Stop Bag - Provider: Enma Yates RN) lisinopriL (PRINIVIL,ZESTRIL) tablet 40 mg 40 mg, oral, 2 times daily, First dose on Sat06/14/23 at 2330, Look-alike/sound-alike medication - verify indication for use. 2340 (Given - Provider: Kristie Curiel, ELIZABETH) 0849 (Given - Provider: Susan Layton, RN, Instructor)2204 (Given - Provider: Enma Yates, ELIZABETH) 0919 (Given - Provider: Aundrea Ocampo, RN)2100 (Due) metoprolol tartrate (LOPRESSOR) tablet 25 mg 25 mg, oral, 2 times daily, First dose on Sat06/14/23 at 2330, Look-alike/sound-alike medication - verify indication for use. 2340 (Given - Provider: Kristie Curiel, ELIZABETH) 0849 (Given - Provider: Susan Layton, RN, Instructor)2204 (Given - Provider: Enma Yates, ELIZABETH) 0919 (Given - Provider: Aundrea Ocampo, RN)2100 (Due) metroNIDAZOLE (FLAGYL) IVPB 500 mg/100 mL in iso-osmotic sodium chloride (5 mg/mL premix) 500 mg, intravenous, at 100 mL/hr, Administer over 60 Minutes, Every 8 hours, First dose on Sat06/13/23 at 0500, Look-alike/sound-alike medication - verify indication for use., Indication: Intra-abdominal 0505 (New Bag - Provider: Isela Sue RN)0605 (Stop Bag - Provider: Isela Sue RN)1216 (New Bag - Provider: America Loyola RN)1248 (MAR Hold - Provider: Automatic Transfer Provider - Reason: Unreviewed Transfer Orders)1316 (Stop Bag - Provider: America Loyola RN)1511 (JUN Unhold - Provider: Automatic Transfer Provider)2156 (New Bag - Provider: Kristie Curiel RN)2256 (Stop Bag - Provider: Kristie Curiel, ELIZABETH) 0539 (New Bag - Provider: Kristie Curiel RN)0639 (Stop Bag - Provider: Kristie Curiel RN)1210 (New Bag - Provider: Jose Alejandro Gutiérrez RN)1310 (Stop Bag - Provider: Jose Alejandro Gutiérrez RN)2202 (New Bag - Provider: Enma Yates RN)2302 (Stop Bag - Provider: Enma Yates RN) 0453 (New Bag - Provider: Enma Yates RN)0553 (Stop Bag - Provider: Enma Yates RN)1332 (New Bag - Provider: Aundrea Ocampo, RN)1432 (Stop Bag - Provider: Aundrea Ocampo RN)2100 (Due) pantoprazole (PROTONIX) EC tablet 40 mg 40 mg, oral, Every morning before breakfast, First dose on 06/15/23 at 1015, Look-alike/sound-alike medication - verify indication for use. If patient is receiving enteral feeding, consider alternative PPI or continue IV pantoprazole until the delayed-release tablet can be taken orally, Indication: Peptic Ulcer Disease (PUD) 1110 (Given - Provider: Jose Alejandro Gutiérrez RN) 0553 (Given - Provider: Enma Yates RN)0700 (Canceled Entry - Provider: Enma Yates RN) sodium chloride 0.9 % flush 3 mL 3 mL, intravenous, Every 12 hours scheduled, First dose on Lety 06/13/23 at 0900 0800 (Given - Provider: America Loyola RN)1248 (MAR Hold - Provider: Automatic Transfer Provider - Reason: Unreviewed Transfer Orders)1511 (MAR Unhold - Provider: Automatic Transfer Provider)2100 (Not Given - Provider: Kristie Curiel RN - Reason: IV infusing) 0851 (Given - Provider: Susan Layton RN, Instructor)2202 (Given - Provider: Enma Yates RN) 0920 (Given - Provider: Aundrea Ocampo, ELIZABETH)2100 (Due) Continuous Medication Order 06/14/2023 06/15/2023 06/16/2023 lactated ringers infusion (CANCELED) 50 mL/hr, intravenous, Continuous, Starting on Sat06/14/23 at 1315, Pre-op, If fluid restriction is not indicated, infuse at a rate up to 5 mL/kg/hr not to exceed the total replacement volume (2 ml/kg/hr) from the time NPO status was initiated. 1426 (New Bag - Provider: Arnulfo Waller APRN-HYDRAULIC JACK MECHANIC)1506 (Anesthesia Volume Adjustment - Provider: VARINDER Leon)2000 (Stop Bag - Provider: Kristie Curiel RN - Comment: not running at start of shift) pantoprazole (PROTONIX) 80 mg in sodium chloride 0.9 % 100 mL (0.8 mg/mL) infusion (CANCELED)(Linked Group 1) 8 mg/hr (10 mL/hr), intravenous, Continuous, Starting on Lety 06/13/23 at 0745, Look-alike/sound-alike medication - verify indication for use., Indication: Upper GI bleed 0508 (New Bag - Provider: Isela Sue RN)1511 (JUN Hold - Provider: Automatic Transfer Provider - Reason: Unreviewed Transfer Orders)1511 (MAR Unhold - Provider: Automatic Transfer Provider)1605 (Stop Bag - Provider: America Loyola RN - Comment: Pt did not return from procedure with IV pole/pump with protonix gtt running)1901 (New Bag - Provider: America Loyola RN) 0245 (New Bag - Provider: Kristie Curiel, ELIZABETH)0857 (Rate/Dose Verify - Provider: Susan Layton RN, Instructor)0936 (Rate/Dose Verify - Provider: Jose Alejandro Gutiérrez, ELIZABETH)1028 (Stop Bag - Provider: Jose Alejandro Gutiérrez RN) PRN Medication Order 06/14/2023 06/15/2023 06/16/2023 acetaminophen (TYLENOL) tablet 650 mg 650 mg, oral, Every 6 hours PRN, mild pain - pain scale 1-3, moderate pain - pain scale 4-6, headaches, Starting on Lety 06/13/23 at 1437 1248 (JUN Hold - Provider: Automatic Transfer Provider - Reason: Unreviewed Transfer Orders)1511 (MAR Unhold - Provider: Automatic Transfer Provider) 2204 (Given - Provider: Enma Yates, RN) 0919 (Given - Provider: Aundrea Ocampo, ELIZABETH) barium sulfate (VARIBAR PUDDING) 40 % (w/v), 30% (w/w) oral paste 230 mL (COMPLETED) 230 mL, oral, Once in imaging, contrast, contrast, Starting on 06/15/23 at 0635, For 1 dose 0948 (Given - Provider: Natividad Perry [facility]) barium sulfate (VARIBAR THIN) 81 % (w/w) powder 148 g (COMPLETED) 148 g, oral, Once in imaging, contrast, contrast, Starting on 06/15/23 at 0635, For 1 dose 0948 (Given - Provider: Natividad Perry [facility]) calcium gluconate 3,000 mg in sodium chloride 0.9 % 100 mL IVPB 3,000 mg, intravenous, at 43.3 mL/hr, Administer over 3 Hours, As needed, ionized calcium 3.5 to 3.9 mg/dL, Starting on Lety 06/13/23 at 0738, IV Administration of calcium via a central or deep vein preferred. Avoid administration in small hand veins VESICANT (RED) 1248 ([facility] Hold - Provider: Automatic Transfer Provider - Reason: Unreviewed Transfer Orders)1511 ([facility] Unhold - Provider: Automatic Transfer Provider) calcium gluconate 4,000 mg in sodium chloride 0.9 % 250 mL IVPB 4,000 mg, intravenous, at 72.5 mL/hr, Administer over 4 Hours, As needed, ionized calcium 3.4 mg/dL or less, Starting on Lety 06/13/23 at 0738, IV administration of calcium via a central or deep vein is preferred. Avoid administration in small hand veins. VESICANT (RED) 1248 ([facility] Hold - Provider: Automatic Transfer Provider - Reason: Unreviewed Transfer Orders)1511 ([facility] Unhold - Provider: Automatic Transfer Provider) calcium gluconate IVPB 2000 mg/100 mL (20 mg/mL premix) 2,000 mg, intravenous, at 50 mL/hr, Administer over 2 Hours, As needed, ionized calcium 4 to 4.3 mg/dL, Starting on Lety 06/13/23 at 0738, IV Administration of calcium via a central or deep vein preferred. Avoid administration in small hand veins VESICANT (RED) 1248 ([facility] Hold - Provider: Automatic Transfer Provider - Reason: Unreviewed Transfer Orders)1511 ([facility] Unhold - Provider: Automatic Transfer Provider) dextrose (GLUTOSE) 40 % gel 15 g 15 g, oral, As needed, low blood sugar, blood glucose less than 70 mg/dL, Starting on Lety 06/13/23 at 0352, If patient conscious and taking PO. If blood glucose is not greater than 70 mg/dL after initial treatment, repeat treatment. 1248 ([facility] Hold - Provider: Automatic Transfer Provider - Reason: Unreviewed Transfer Orders)1511 ([facility] Unhold - Provider: Automatic Transfer Provider) dextrose 5 % (D5W) infusion 100 mL/hr, intravenous, Continuous PRN, blood glucose less than 70 mg/dL, Starting on Lety 06/13/23 at 0352, Use immediately following dextrose 50% or glucagon treatment for patients who are unconscious or NPO. Contact prescriber for additional orders. If blood glucose is not greater than 70 mg/dL after initial treatment, repeat treatment. 0829 (New Bag - Provider: America Loyola RN)1248 ([facility] Hold - Provider: Automatic Transfer Provider - Reason: Unreviewed Transfer Orders)1511 ([facility] Unhold - Provider: Automatic Transfer Provider)1752 (New Bag - Provider: America Loyola RN)2148 (Stop Bag - Provider: Kristie Curiel, RN - Comment: sugar 97) 0347 (New Bag - Provider: Kristie Curiel, RN)0854 (Stop Bag - Provider: Susan Layton, RN, Instructor) dextrose 50 % in water (D50W) 50% solution 25 mL 25 mL, intravenous, As needed, low blood sugar, blood glucose less than 70 mg/dL and unconscious or NPO with IV access, Starting on Lety 06/13/23 at 0352, Push over 1-3 minutes STAT. If conscious and not NPO, immediately follow with meal tray or high protein (7 grams) snack if tray not available. If NPO, initiate 5% dextrose in water at 100 mL/hr and contact prescriber for additional orders. If blood glucose is not greater than 70 mg/dL after initial treatment, repeat treatment. VESICANT (RED) Warning: HYPERTONIC solution. 1248 ([facility] Hold - Provider: Automatic Transfer Provider - Reason: Unreviewed Transfer Orders)1511 ([facility] Unhold - Provider: Automatic Transfer Provider) glucagon HCL injection 1 mg 1 mg, intramuscular, As needed, low blood sugar, blood glucose less than 70 mg/dL and unconscious or NPO without IV access., Starting on Lety 06/13/23 at 0352, If conscious and not NPO, immediately follow with meal tray or high protein (7Grams) snack if tray not available. If NPO, initiate IV 5% Dextrose/Water at 100 mL/hr and contact prescriber for additional orders. If blood glucose is not greater than 70 mg/dL after initial treatment, repeat treatment. 1248 ([facility] Hold - Provider: Automatic Transfer Provider - Reason: Unreviewed Transfer Orders)1511 ([facility] Unhold - Provider: Automatic Transfer Provider) magnesium sulfate IVPB 2000 mg/50 mL in iso-osmotic water (40 mg/mL premix) 2,000 mg, intravenous, at 25 mL/hr, Administer over 120 Minutes, As needed, Magnesium level 1.7 to 1.9 mg/dL, or Ionized Magnesium level 0.45 to 0.5 mmol/L., Starting on Lety 06/13/23 at 0419, Recheck magnesium level 4 hours after infusion complete. With each magnesium result continue the replacement orders as needed. 1248 ([facility] Hold - Provider: Automatic Transfer Provider - Reason: Unreviewed Transfer Orders)1511 ([facility] Unhold - Provider: Automatic Transfer Provider) magnesium sulfate IVPB 4000 mg/100 mL in iso-osmotic water (40 mg/mL premix) 4,000 mg, intravenous, at 25 mL/hr, Administer over 240 Minutes, As needed, Magnesium level 1.6 mg/dL or less, or Ionized Magnesium level 0.44 mmol/L or less, Starting on Lety 06/13/23 at 0419, Recheck magnesium level 4 hours after infusion complete. With each magnesium result continue the replacement orders as needed. 1248 ([facility] Hold - Provider: Automatic Transfer Provider - Reason: Unreviewed Transfer Orders)1511 ([facility] Unhold - Provider: Automatic Transfer Provider) potassium chloride (K-TAB,KLOR-CON) CR tablet 30-50 mEq(Linked Group 2) 30-50 mEq, oral, As needed, potassium supplementation, Starting on 06/15/23 at 1428, Progress to oral potassium replacement when patient tolerating oral intake. If dose administered, recheck potassium level 4 hours after last dose. For potassium level 3.4 to 3.8 mmol/L and GFR 30 mL/min or greater=30 mEq. For potassium level 3.1 to 3.3 mmol/L and GFR 30 mL/min or greater=40 mEq. For potassium level 3 mmol/L or less and GFR 30 mL/min or greater=50 mEq. Do not crush or chew. 1439 (Given - Provider: Jose Alejandro Gutiérrez, RN)2203 (Given - Provider: Enma Yates, RN) potassium chloride (KAYCIEL) 20 mEq/15 mL solution 30-50 mEq(Linked Group 2) 30-50 mEq, oral, As needed, potassium supplementation, Starting on 06/15/23 at 1428, Progress to oral potassium replacement when patient tolerating oral intake. If dose administered, recheck potassium level 4 hours after last dose. For potassium level 3.4 to 3.8 mmol/L and GFR 30 mL/min or greater=30 mEq. For potassium level 3.1 to 3.3 mmol/L and GFR 30 mL/min or greater=40 mEq. For potassium level 3 mmol/L or less and GFR 30 mL/min or greater=50 mEq. Must dilute before use - Mix in 3-8 ounces of water or juice before administration When administering in feeding tube, flush before and after per policy and monitor potassium levels 1438 (See Alternative - Provider: Jose Alejandro Gutiérrez RN)2203 (See Alternative - Provider: Enma Yates, RN) potassium chloride IVPB 10 mEq/100 mL in water (0.1 mEq/mL premix) 10 mEq, intravenous, at 100 mL/hr, Administer over 60 Minutes, As needed, POTASSIUM REPLACEMENT, Starting on Lety 06/13/23 at 0419, Potassium level 3 mmol/L or less administer Potassium Chloride 50 mEq Potassium level 3.1 to 3.3 mmol/L administer Potassium Chloride 40 mEq Potassium level 3.4 to 3.8 mmol/L administer Potassium Chloride 30 mEq Use central line when applicable. Recheck potassium level 1 hour after total IVPB infusion complete With each potassium result continue the replacement orders as needed VESICANT (YELLOW) Infuse each 10 mEq over a minimum of 1 hour., Indications: hypokalemia 0801 (New Bag - Provider: America Loyola RN)0914 (Stop Bag - Provider: America Loyola RN)0916 (New Bag - Provider: America Loyola RN)1016 (Stop Bag - Provider: America Loyola RN)1033 (New Bag - Provider: America Loyola RN)1133 (Stop Bag - Provider: America Loyola, RN)1248 (JUN Hold - Provider: Automatic Transfer Provider - Reason: Unreviewed Transfer Orders)1511 (JUN Unhold - Provider: Automatic Transfer Provider)1747 (New Bag - Provider: America Loyola RN)1847 (Stop Bag - Provider: America Loyola RN)1901 (New Bag - Provider: America Loyola RN)2000 (Stop Bag - Provider: Kristie Curiel RN)2019 (New Bag - Provider: Kristie Curiel, ELIZABETH)2119 (Stop Bag - Provider: Kristie Curiel, ELIZABETH) 0259 (New Bag - Provider: Kristie Curiel RN)0359 (Canceled Entry - Provider: Kristie Curiel RN)0437 (New Bag - Provider: Kristie Curiel RN)0537 (Stop Bag - Provider: Kristie Curiel, ELIZABETH)0541 (New Bag - Provider: Kristie Curiel, ELIZABETH)0641 (Stop Bag - Provider: Kristie Curiel RN) sod phos di, mono-K phos mono (K-PHOS NEUTRAL) 250 mg tablet 2 tablet(Linked Group 3) 2 tablet, oral, As needed, for phosphorus level 2.3 mg/dL or less., Starting on Lety 06/13/23 at 0738, If dose administered, recheck phosphorus level 4 hours after last dose. Look-alike/sound-alike medication - verify indication for use. Give with a full glass of water. 1248 (JUN Hold - Provider: Automatic Transfer Provider - Reason: Unreviewed Transfer Orders)1511 (JUN Unhold - Provider: Automatic Transfer Provider) sodium chloride 0.9 % flush 3 mL 3 mL, intravenous, As needed, line care, before and after each intermittent use, Starting on Lety 06/13/23 at 0352 1248 (JUN Hold - Provider: Automatic Transfer Provider - Reason: Unreviewed Transfer Orders)1511 ([facility] Unhold - Provider: Automatic Transfer Provider) sodium chloride 0.9 % flush bag 25 mL, intravenous, at 100 mL/hr, Administer over 15 Minutes, As needed, line care, line care after IVPB administration, Starting on Lety 06/13/23 at 0352 1248 ([facility] Hold - Provider: Automatic Transfer Provider - Reason: Unreviewed Transfer Orders)1511 ([facility] Unhold - Provider: Automatic Transfer Provider) sodium chloride 0.9 % infusion 20 mL/hr, intravenous, Continuous PRN, to maintain patency of lines, Starting on Lety 06/13/23 at 0352 1248 ([facility] Hold - Provider: Automatic Transfer Provider - Reason: Unreviewed Transfer Orders)1511 ([facility] Unhold - Provider: Automatic Transfer Provider) sodium phosphate 20 mmol in sodium chloride 0.9 % 100 mL IVPB(Linked Group 3) 20 mmol, intravenous, at 26.7 mL/hr, Administer over 4 Hours, As needed, for phosphorus level 2.3 mg/dL or less., Starting on Lety 06/13/23 at 0738, Administer over 4 hours via dedicated line (central line). If administered, recheck phosphorus level 4 hours after infusion complete. Infuse using central line access. 1248 ([facility] Hold - Provider: Automatic Transfer Provider - Reason: Unreviewed Transfer Orders)1511 ([facility] Unhold - Provider: Automatic Transfer Provider) sodium phosphate 20 mmol in sodium chloride 0.9 % 250 mL IVPB(Linked Group 3) 20 mmol, intravenous, at 42.8 mL/hr, Administer over 6 Hours, As needed, for phosphorus level 2.3 mg/dL or less, Starting on Lety 06/13/23 at 0738, Administer over 6 hours via dedicated line (peripheral line). If administered, recheck phosphorus level 4 hours after infusion complete. 1248 ([facility] Hold - Provider: Automatic Transfer Provider - Reason: Unreviewed Transfer Orders)1511 ([facility] Unhold - Provider: Automatic Transfer Provider) Linked Groups Order Group 1: pantoprazole (PROTONIX) injection 80 mg (COMPLETED) 80 mg, intravenous, Once, On Lety 06/13/23 at 0745, For 1 dose, Look-alike/sound-alike medication - verify indication for use., Indication: Upper GI bleed And pantoprazole (PROTONIX) 80 mg in sodium chloride 0.9 % 100 mL (0.8 mg/mL) infusion (CANCELED)Jump to med 8 mg/hr (10 mL/hr), intravenous, Continuous, Starting on Lety 06/13/23 at 0745, Look-alike/sound-alike medication - verify indication for use., Indication: Upper GI bleed Group 2: potassium chloride (K-TAB,KLOR-CON) CR tablet 30-50 mEqJump to med 30-50 mEq, oral, As needed, potassium supplementation, Starting on 06/15/23 at 1428, Progress to oral potassium replacement when patient tolerating oral intake. If dose administered, recheck potassium level 4 hours after last dose. For potassium level 3.4 to 3.8 mmol/L and GFR 30 mL/min or greater=30 mEq. For potassium level 3.1 to 3.3 mmol/L and GFR 30 mL/min or greater=40 mEq. For potassium level 3 mmol/L or less and GFR 30 mL/min or greater=50 mEq. Do not crush or chew. Or potassium chloride (KAYCIEL) 20 mEq/15 mL solution 30-50 mEqJump to med 30-50 mEq, oral, As needed, potassium supplementation, Starting on 06/15/23 at 1428, Progress to oral potassium replacement when patient tolerating oral intake. If dose administered, recheck potassium level 4 hours after last dose. For potassium level 3.4 to 3.8 mmol/L and GFR 30 mL/min or greater=30 mEq. For potassium level 3.1 to 3.3 mmol/L and GFR 30 mL/min or greater=40 mEq. For potassium level 3 mmol/L or less and GFR 30 mL/min or greater=50 mEq. Must dilute before use - Mix in 3-8 ounces of water or juice before administration When administering in feeding tube, flush before and after per policy and monitor potassium levels Group 3: sodium phosphate 20 mmol in sodium chloride 0.9 % 250 mL IVPBJump to med 20 mmol, intravenous, at 42.8 mL/hr, Administer over 6 Hours, As needed, for phosphorus level 2.3 mg/dL or less, Starting on Lety 06/13/23 at 0738, Administer over 6 hours via dedicated line (peripheral line). If administered, recheck phosphorus level 4 hours after infusion complete. Or sodium phosphate 20 mmol in sodium chloride 0.9 % 100 mL IVPBJump to med 20 mmol, intravenous, at 26.7 mL/hr, Administer over 4 Hours, As needed, for phosphorus level 2.3 mg/dL or less., Starting on Lety 06/13/23 at 0738, Administer over 4 hours via dedicated line (central line). If administered, recheck phosphorus level 4 hours after infusion complete. Infuse using central line access. Or sod phos di, mono-K phos mono (K-PHOS NEUTRAL) 250 mg tablet 2 tabletJump to med 2 tablet, oral, As needed, for phosphorus level 2.3 mg/dL or less., Starting on Lety 06/13/23 at 0738, If dose administered, recheck phosphorus level 4 [...] BE BASED ON THE PRIMARY CLINICAL RECORDS. [facility]. provides no warranty or guarantee of the accuracy or completeness of information in this document.
--- NOTE | 2025-01-21 08:25 | CT_ITS ---
The [address] [address] Patient Name: SMITHA CHAN MRN: [id number] date: 1945 Sex: F Assigned Patient Location: LAB Current Patient Location: LAB Accession/Order Number: [id number] Exam Date: 01/21/2025 08:50 Report Date: 01/21/2025 10:07 At the request of: LEON HARVEY MD Procedure: CT angio abdomen pelvis CTA OF THE CHEST, ABDOMEN AND PELVIS WITH CONTRAST CLINICAL DATA: Follow-up thoracic and abdominal aortic aneurysm. Previous repair. COMPARISON: 07/21/2024 Spiral images were obtained through the chest, abdomen and pelvis following 100 mL of Omnipaque 350. Sagittal and coronal MIP as well as 3-D volume rendered reconstructions of the aorta and its branches were reviewed. This CT exam was performed using one or more following dose reduction techniques: Automated exposure control, adjustment of the mA and/or kV according to patient size, or use of iterative reconstruction technique. There is atherosclerotic disease. The aorta is patent, without dissection. The ascending aorta is slightly dilated with diameter of 4.1 cm, similar to the prior. There is aneurysmal dilatation of the proximal descending aorta just posterior to the great vessels with diameter measures 5.5 cm, also not significantly changed. There is moderate mural thrombus at that site. The descending aorta tapers distally. There is an endoluminal stent within the distal thoracic aorta from above to just beyond the diaphragmatic hiatus. The diameter of the aorta through this segment is approximately 3.4 cm. There is an infrarenal abdominal aortic aneurysm which contains an additional endoluminal stent. The stent begins below the superior mesenteric artery and extends into the common iliac arteries on both sides. There is an additional common iliac artery stent on the right. Asymmetric dilatation of the right common iliac artery is again seen with diameter 3.5 cm. The maximum diameter of the [place] aorta is approximately 6.5 cm, which is similar. No obvious endoleak is seen. There is no periaortic fluid. There is moderate atherosclerotic plaque at the visceral arteries where there is opacification. The heart is enlarged. No pericardial effusion is identified. There are tiny thyroid nodules. Small calcified and noncalcified mediastinal lymph nodes are present. Mild atelectasis and/or scarring is seen. There is no developing consolidation, pleural effusion or pneumothorax. Dextroscoliotic curvature and mild degenerative changes are noted at the spine. There is stable minor wedge deformity at T6. The gallbladder is surgically absent. No common duct stones are seen. No intrahepatic masses are visualized. There are calcified splenic granulomas. The pancreas and adrenal glands show no acute findings. The renal nephrograms are symmetric. There are bilateral renal cysts. No hydronephrosis is seen. No enlarged lymph nodes are visualized. No ascites is present. There is a small hiatal hernia. The small bowel loops are normal caliber. Stool is visualized along the colon. There are some scattered colonic diverticula. Dextroscoliotic curvature and degenerative changes are present at the spine. There is similar wedge deformity at L4. Images through the pelvis show no appendiceal inflammation. There is no dilated small bowel. There is a small amount of distal colonic stool. Additional diverticular disease is seen, without associated active inflammation. The uterus is surgically absent. No urinary bladder abnormalities are noted. There is no ascites. CT/CT angio abdomen pelvis IMPRESSION: ATHEROSCLEROTIC DISEASE WITH THORACIC AND ABDOMINAL AORTIC WELL RIGHT COMMON ILIAC ARTERY ANEURYSMS AND ENDOLUMINAL STENTS, NOT SIGNIFICANTLY CHANGED. NO EVIDENCE OF ENDOLEAK IS SEEN. MILD CARDIOMEGALY. MINOR ATELECTASIS OR SCARRING. GRANULOMATOUS CHANGES. RENAL CYSTS. NO BOWEL OR URINARY TRACT OBSTRUCTION. DIVERTICULOSIS. Impression dictated by: Joselyn Her M.D. 01/21/2025 10:07 AM Dictation Location: [place] [address] Electronically authenticated by: [id number] Y Date: 01/21/2025 10:07
[2025-01-21 08:29] LABS: Estimated GFR (African America 49 (>=60 mL/min/1.73m^2); Estimated GFR (Non-African Ame 40 (>=60 mL/min/1.73m^2)
--- NOTE | 2025-01-21 08:32 | CT_ITS ---
The [address] [address] Patient Name: SMITHA CHAN MRN: [id number] date: 1945 Sex: F Assigned Patient Location: LAB Current Patient Location: LAB Accession/Order Number: [id number] Exam Date: 01/21/2025 08:50 Report Date: 01/21/2025 10:07 At the request of: LEON HARVEY MD Procedure: CT angio abdomen pelvis CTA OF THE CHEST, ABDOMEN AND PELVIS WITH CONTRAST CLINICAL DATA: Follow-up thoracic and abdominal aortic aneurysm. Previous repair. COMPARISON: 07/21/2024 Spiral images were obtained through the chest, abdomen and pelvis following 100 mL of Omnipaque 350. Sagittal and coronal MIP as well as 3-D volume rendered reconstructions of the aorta and its branches were reviewed. This CT exam was performed using one or more following dose reduction techniques: Automated exposure control, adjustment of the mA and/or kV according to patient size, or use of iterative reconstruction technique. There is atherosclerotic disease. The aorta is patent, without dissection. The ascending aorta is slightly dilated with diameter of 4.1 cm, similar to the prior. There is aneurysmal dilatation of the proximal descending aorta just posterior to the great vessels with diameter measures 5.5 cm, also not significantly changed. There is moderate mural thrombus at that site. The descending aorta tapers distally. There is an endoluminal stent within the distal thoracic aorta from above to just beyond the diaphragmatic hiatus. The diameter of the aorta through this segment is approximately 3.4 cm. There is an infrarenal abdominal aortic aneurysm which contains an additional endoluminal stent. The stent begins below the superior mesenteric artery and extends into the common iliac arteries on both sides. There is an additional common iliac artery stent on the right. Asymmetric dilatation of the right common iliac artery is again seen with diameter 3.5 cm. The maximum diameter of the [place] aorta is approximately 6.5 cm, which is similar. No obvious endoleak is seen. There is no periaortic fluid. There is moderate atherosclerotic plaque at the visceral arteries where there is opacification. The heart is enlarged. No pericardial effusion is identified. There are tiny thyroid nodules. Small calcified and noncalcified mediastinal lymph nodes are present. Mild atelectasis and/or scarring is seen. There is no developing consolidation, pleural effusion or pneumothorax. Dextroscoliotic curvature and mild degenerative changes are noted at the spine. There is stable minor wedge deformity at T6. The gallbladder is surgically absent. No common duct stones are seen. No intrahepatic masses are visualized. There are calcified splenic granulomas. The pancreas and adrenal glands show no acute findings. The renal nephrograms are symmetric. There are bilateral renal cysts. No hydronephrosis is seen. No enlarged lymph nodes are visualized. No ascites is present. There is a small hiatal hernia. The small bowel loops are normal caliber. Stool is visualized along the colon. There are some scattered colonic diverticula. Dextroscoliotic curvature and degenerative changes are present at the spine. There is similar wedge deformity at L4. Images through the pelvis show no appendiceal inflammation. There is no dilated small bowel. There is a small amount of distal colonic stool. Additional diverticular disease is seen, without associated active inflammation. The uterus is surgically absent. No urinary bladder abnormalities are noted. There is no ascites. CT/CT angio chest IMPRESSION: ATHEROSCLEROTIC DISEASE WITH THORACIC AND ABDOMINAL AORTIC WELL RIGHT COMMON ILIAC ARTERY ANEURYSMS AND ENDOLUMINAL STENTS, NOT SIGNIFICANTLY CHANGED. NO EVIDENCE OF ENDOLEAK IS SEEN. MILD CARDIOMEGALY. MINOR ATELECTASIS OR SCARRING. GRANULOMATOUS CHANGES. RENAL CYSTS. NO BOWEL OR URINARY TRACT OBSTRUCTION. DIVERTICULOSIS. Impression dictated by: Joselyn Her M.D. 01/21/2025 10:07 AM Dictation Location: [place] [address] Electronically authenticated by: [id number] Y Date: 01/21/2025 10:07
== END 2025-01-21 07:59 | disposition home or self-care (01) ==
LOC: LAB 08:02
PROVIDERS: PCP Family Medicine; Visit Provider Student in an Organized Health Care Education/Training Program
DX: I71.13 Aneurysm of the descending thoracic aorta, ruptured (principal); I69.30 Unspecified sequelae of cerebral infarction; Z98.890 Other specified postprocedural states; I71.40 Abdominal aortic aneurysm, without rupture, unspecified; I71.20 Thoracic aortic aneurysm, without rupture, unspecified; I72.3 Aneurysm of iliac artery; N28.1 Cyst of kidney, acquired; K57.90 Diverticulosis of intestine, part unspecified, without perforation or abscess without bleeding
CPT/HCPCS: 36415; 71275; 74174; 82565; Q9967